=== PATIENT | female | born 1970 | race Caucasian/White ===

== ENCOUNTER → 2017-11-18 13:32 | Outpatient (REF) | payer OTHER, SELFPAY ==
[2017-11-20 14:21] LABS: Campylobacter PCR SEE COMMENTS; Salmonella PCR SEE COMMENTS; Shiga Toxin PCR SEE COMMENTS; Shigella/Enteroinvasive Ecoli SEE COMMENTS
[2017-11-21 20:25] LABS: Calprotectin 60.4 mcg/g
== END ==
LOC: LBN 13:32
PROVIDERS: PCP Student in an Organized Health Care Education/Training Program; Visit Provider Nurse Practitioner Family
DX: R19.7 Diarrhea, unspecified (principal)
CPT/HCPCS: 87505; 83993; 87324

== ENCOUNTER 2018-01-01 16:22 | Outpatient (REF) | payer OTHER, SELFPAY | END 2018-01-01 16:42 | LOC: LBN 16:22 | PROVIDERS: PCP Student in an Organized Health Care Education/Training Program; Visit Provider Obstetrics & Gynecology Gynecology | DX: L98.9 Disorder of the skin and subcutaneous tissue, unspecified (principal) | CPT/HCPCS: 87070 ==

== ENCOUNTER 2018-03-05 08:47 | Outpatient (CLI) | payer OTHER, SELFPAY ==
[2018-03-05 13:24] LABS: HCT 40.4 % (36.0-46.0); HGB 13.5 g/dL (12.0-15.5); Mean Corp. HGB Concentration 33.4 g/dL (32.0-36.0); Mean Corpuscular Hemoglobin 28.4 pg (27.0-33.0); Mean Corpuscular Volume 84.9 fL (80-95); Mean Platelet Volume 9.4 fL (8.0-11.0); Platelet Count 411 x1000/uL (130-400); RBC 4.76 m/cumm (4.00-5.20); RBC Distribution Width 13.6 % (11.7-14.6); White Blood Cell Count 10.35 k/cumm (4.4-10.8)
[2018-03-05 14:02] LABS: Ferritin 30 ng/mL (8-388)
== END 2018-03-05 09:07 ==
PROVIDERS: PCP Student in an Organized Health Care Education/Training Program; Visit Provider Psychiatry & Neurology Neurology
DX: G25.81 Restless legs syndrome (principal)
CPT/HCPCS: 36415; 85027; 82728

== ENCOUNTER 2018-04-12 11:41 | Outpatient (CLI) | payer OTHER, SELFPAY ==
[2018-04-12 12:51] LABS: Anion Gap 9.3 mmol/L (3-11); BUN 19 mg/dL (7-18); CO2 27.7 mmol/L (21.0-32.0); CREATININE 1.01 mg/dL (0.55-1.02); Calcium 9.6 mg/dL (8.5-10.1); Chloride 101 mmol/L (98-107); Glucose 123 mg/dL (70-100); Potassium 3.9 mmol/L (3.5-5.1); Sodium 138 mmol/L (136-145)
== END 2018-04-12 12:01 ==
PROVIDERS: PCP Student in an Organized Health Care Education/Training Program; Visit Provider Student in an Organized Health Care Education/Training Program
DX: E87.6 Hypokalemia (principal)
CPT/HCPCS: 36415; 80048

== ENCOUNTER 2018-05-13 11:55 | Outpatient (CLI) | payer OTHER, SELFPAY ==
[2018-05-13 14:08] LABS: Ferritin 39 ng/mL (8-388)
== END 2018-05-13 12:15 ==
PROVIDERS: PCP Student in an Organized Health Care Education/Training Program; Visit Provider Psychiatry & Neurology Neurology
DX: G25.81 Restless legs syndrome (principal)
CPT/HCPCS: 36415; 82728

== ENCOUNTER 2018-05-30 01:23 | Outpatient (RCR) | payer OTHER, SELFPAY ==
[2018-05-30] MEDS: Normal Saline Flush 10 ML SYR IVP (08:27)
== END 2018-05-30 23:59 | disposition home or self-care (01) ==
LOC: INF 01:23
PROVIDERS: PCP Student in an Organized Health Care Education/Training Program; Visit Provider Psychiatry & Neurology Neurology
DX: E61.1 Iron deficiency (principal)
CPT/HCPCS: 96365; 96366; J1756

== ENCOUNTER 2018-05-30 14:00 | Emergency (ER) | payer OTHER, SELFPAY ==
[2018-05-30] VITALS (26 sets, daily range): BP systolic 113–136; BP diastolic 59–99; PULSE 83–105; RESP 11–178; TEMP 36.2; O2SAT 93–98
--- NOTE | 2018-05-30 14:30 | ED.GENADUL_ITS ---
Discharge Plan Disposition Patient Disposition: HOME Condition: Good Discharge Details Chief Complaint: Allergic Clinical Impression: Transfusion reaction Primary Care Provider: Huyen Ramon ED Provider: Gerry Jenkins Home Meds and New Rx's Prescriptions: New epinephrine 0.3 mg/0.3 mL auto-injector 0.3 mg IM ONCE Qty: 2 RF: 0 No Action prochlorperazine maleate 5 mg tablet 5 mg PO Q8H PRN Qty: 30 RF: 3 topiramate [Topamax] 50 mg tablet 50 mg PO HS Qty: 90 RF: 3 gabapentin 300 mg capsule 300 mg PO TID Qty: 270 RF: 3 pramipexole [Mirapex] 0.25 mg tablet See Rx Instructions PO BID Qty: 270 RF: 3 ferrous sulfate [FeroSul] 325 mg (65 mg iron) tablet 325 mg PO DAILY Qty: 10 RF: 0 multivitamin [Daily Multi-Vitamin] 1 EACH tablet 1 ea PO DAILY RF: 0 vitamin B complex 1 EACH capsule 1 ea PO DAILY RF: 0 hair prosthesis Miscellaneous DAILY Qty: 1 RF: 1 loperamide [Imodium A-D] 1 MG/7.5 ML liquid 1 mg PO Q48H PRNRF: 0 hydrochlorothiazide 25 MG tablet 25 mg PO DAILY Qty: 90 RF: 3 lisinopril 20 MG tablet 20 mg PO BID Qty: 180 RF: 3 omeprazole 40 MG capsule,delayed release(DR/EC) 1 cap PO BID Qty: 90 RF: 1 triamcinolone acetonide 0.5 % cream 1 applic TP BID Qty: 15 RF: 3 venlafaxine 37.5 mg tablet 37.5 mg PO BID Qty: 30 RF: 1 bupropion HCl [Wellbutrin XL] 300 mg tablet extended release 24 hr 300 mg PO DAILY Qty: 90 RF: 3 Discharge Instructions Instructions: Anaphylaxis (ED) Additional Instructions: Please avoid IV iron in the future. Please use the epinephrine autoinjector if you develop any symptoms of shortness of breath, difficulty breathing, swelling in the mouth. Please take 50 mg of Benadryl as needed if itching or rash develops. If you notice any worsening of your symptoms, or any new symptoms suc h as vomiting, diarrhea, fever, chills, shortness of breath, chest pain, numbness, weakness, or fainting , please return immediately to the emergency department for reevaluation. Please follow up with your primary care provider as soon as possible for reassessment and reevaluation. As always, it was a pleasure participating in your medical care today. Referrals: Huyen Ramon DO [Primary Care Provider] - Medical Decision Making This is a 47-year-old female with past medical history of restless leg syndrome and low iron who has just received an iron infusion secondary to this, at the infusion she had a mild rash she took 50 mg of Benadryl, however after the infusion she noticed some mild to moderate swelling of her extremities, and also had an episode of diaphoresis and diarrhea with some subjective swelling of her upper lip. The time she arrived in the ER the rash had dissipated, swelling in her mouth had resolved, but she still developed some mild swelling of her hands lower extremities. No signs of significant rash or oral lesions on exam. No signs of hemodynamic compromise, no evidence of concerning lung sounds, or significant vital sign abnormalities. No clinical signs of anaphylaxis at this time. No indication for epinephrine at this time. We will give steroids and Pepcid, we will evaluate for any significant abnormality but I feel she most likely just had a mild reaction secondary to the infusion and if she remains stable can be discharged home. Currently there is no clinical evidence of trol slick, Taco, sepsis, or other significant abnormality 4:48 PM Patient's laboratory workup has returned, she demonstrates a mild elevation in her white count, no significant bandemia. Electrolytes are within normal limits, iron is expectedly elevated. Troponin normal, EKG benign. On reassessment the patient is feeling better. She still shows no signs or evidence of rash, anaphylaxis, respiratory compromise, respiratory distress, severe hypertension, pulmonary distress, severe fluid overload, or other significant abnormality. As the patient is feeling much better at this time, I did discuss with her potential prolonged observation versus discharge, patient would prefer to go home at this time and avoid a prolonged overnight observation period. I do think that this is reasonable. With no signs of anaphylaxis, patient will be discharged home. I had a long and thorough discussion with the patient regarding symptoms for which to promptly return. Additionally we will give the patient a prescription for epinephrine the unlikely scenario that she would have return of her symptoms. I have extensively reviewed the treatment plan and discharge instructions with the patient. I have addressed all patient concerns at this time. The patient was made aware of what symptoms to monitor for that would warrant a return to the emergency department. Discussed the plan with the patient, they demonstrate verbal understanding and agreement with our assessment and plan at this time. EKG 14: 24 Rate 99, sinus rhythm, intervals normal, no significant ST elevations or depressions, questionable Q wave in lead III and aVF. No evidence of acute process. HPI General Date/Time Provider Initiated Documentation: 05/30/18 14:02 . HPI Narrative: This is a 47-year-old female with a past medical history of restless leg syndrome, and hypertension who presents today for evaluation of an allergic reaction. The patient has a history of low iron, and was getting her first iron infusion as prescribed by Dr. Bal, here at the infusion center. When she had the iron infusion she initially developed a very mild rash, this occurred at noon. She then finished the infusion not long after, at 1 PM she noticed some notable swelling in her hands and legs as well as a small amount of subjective swelling in her lip. She also felt hot, sweaty diaphoretic. She had one episode of diarrhea, and with the conglomeration of all her symptoms decided to come to the ER for further evaluation. 30 minutes prior to arrival she did take 50 mg of Benadryl. Since then she notes that the rash is resolved, her swelling has minimally improved, she denies any difficulty breathing, stridor, shortness of breath, cough, difficulty swallowing, vomiting. The patient denies having anaphylactic reactions in the past, however she does have an allergy of hives and swelling with atropine as a child and spironolactone. No other modifying factors at this time. No other complaints. Related Data Home Medications Medication Instructions Recorded Confirmed multivitamin [Daily Multi-Vitamin] 1 ea PO DAILY 07/22/14 05/30/18 vitamin B complex 1 ea PO DAILY 07/22/14 05/30/18 loperamide [Imodium A-D] 1 mg PO Q48H PRN 11/27/16 05/30/18 hydrochlorothiazide 25 mg PO DAILY #90 tab 06/16/17 05/30/18 lisinopril 20 mg PO BID #180 tab-cap 08/02/17 05/30/18 omeprazole 1 cap PO BID #90 tab-cap 08/07/17 05/30/18 triamcinolone acetonide 0.5 % 1 applic TP BID #15 gm 01/15/18 05/30/18 topical cream gabapentin 300 mg capsule 300 mg PO TID #270 tab-cap 03/04/18 05/30/18 prochlorperazine maleate 5 mg 5 mg PO Q8H PRN #30 tab-cap 03/04/18 05/30/18 tablet topiramate 50 mg tablet 50 mg PO HS #90 tab-cap 03/04/18 05/30/18 venlafaxine 37.5 mg tablet 37.5 mg PO BID #30 tab 05/09/18 05/30/18 ferrous sulfate 325 mg (65 mg 325 mg PO DAILY #10 tab 05/13/18 05/30/18 iron) tablet pramipexole 0.25 mg tablet See Rx Instructions PO BID #270 05/13/18 05/30/18 tab-cap bupropion HCl XL 300 mg 24 hr 300 mg PO DAILY #90 tab 05/15/18 05/30/18 tablet, extended release epinephrine 0.3 mg IM ONCE #2 each 05/30/18 Previous Rx's Medication Instructions Recorded hydrochlorothiazide 25 mg PO DAILY #90 tab 06/16/17 lisinopril 20 mg PO BID #180 tab-cap 08/02/17 omeprazole 1 cap PO BID #90 tab-cap 08/07/17 triamcinolone acetonide 0.5 % 1 applic TP BID #15 gm 01/15/18 topical cream gabapentin 300 mg capsule 300 mg PO TID #270 tab-cap 03/04/18 prochlorperazine maleate 5 mg 5 mg PO Q8H PRN #30 tab-cap 03/04/18 tablet topiramate 50 mg tablet 50 mg PO HS #90 tab-cap 03/04/18 venlafaxine 37.5 mg tablet 37.5 mg PO BID #30 tab 05/09/18 ferrous sulfate 325 mg (65 mg 325 mg PO DAILY #10 tab 05/13/18 iron) tablet pramipexole 0.25 mg tablet See Rx Instructions PO BID #270 05/13/18 tab-cap bupropion HCl XL 300 mg 24 hr 300 mg PO DAILY #90 tab 05/15/18 tablet, extended release epinephrine 0.3 mg IM ONCE #2 each 05/30/18 Allergies Allergy/AdvReac Type Severity Reaction Status Date / Time atropine Allergy Intermediate HIVES, Verified 05/30/18 14:17 SWOLLEN spironolactone Allergy Intermediate Skin Rash Verified 05/30/18 14:17 General Stated Complaint: Allergic JOBY: 2 Review of Systems Review of Systems All systems reviewed & are unremarkable except as noted in HPI and below PFSH Medical History Alopecia Anemia Depression GERD (gastroesophageal reflux disease) Marylou's thyroiditis Hx of adenomatous colonic polyps Hypertension Irritable bowel syndrome Reflux esophagitis Surgical History H/O colonoscopy (Chronic 12/05/17) History of esophagogastroduodenoscopy (EGD) (Chronic 12/05/17) section Colonoscopy - MAC (03/16/14) EGD - MAC Endometrial Ablation Tonsillectomy Social History household members: significant other housing: house lives independently: Yes Smoking and Tabacco status: Never alcohol intake: current alcohol intake frequency: holidays/special occasions only Female Reproductive History Menstrual control method: permanent sterilization History History 3 Para 4 Hx # Term Pregnancies Multiple births 1 Hx # Pregnancies Ectopic pregnancies AB induced Hx Number of Living Children AB spontaneous Exam Narrative Exam Narrative: 1.Const: Well-nourished, Well-developed, appearing stated age 2.Eyes: PERRL, no conjunctival injection, and symmetrical lids. 3.ENT: Atraumatic external nose and ears. Moist MM. Neck: Symmetric, trachea midline, No thyromegaly. No evidence of oral lesions. Stable mallinpati with no signs of airway compromise. No evidence of angioedema peer 4.CVS: +S1/S2, No murmurs or gallops. Peripheral pulses 2+ and equal in all extremities. Brisk capillary refill in all extremities. 5.RESP: Unlabored respiratory effort. Clear to auscultation bilaterally. No wheezes rales or rhonchi 6.GI: Soft, Nontender/Nondistended, No hepatosplenomegaly. No guarding or rebound. 7.MSK: Normocephalic/Atraumatic, Extremities w/o deformity or ttp No cyanosis or clubbing, Normal movement of all extremities 8.Skin: Warm, Dry. No rashes or lesions. No signs of erythema multiforme, significant hives, SJS, TENS, SSSS. Negative Nikolsky sign 9.Neuro: quality control tester II-XII grossly intact. Sensation grossly intact, no focal neurologic deficits. 10.Psych: (AAO) x3. Appropriate mood and affect Course Vital Signs Temperature 36.2 C L 05/30/18 14:10 Pulse 101 H 05/30/18 14:10 Respiratory Rate 17 05/30/18 14:10 Blood Pressure 127/99 H 05/30/18 14:10 Pulse Oximetry 94 L 05/30/18 14:10 Temperature 36.2 C L 05/30/18 14:10 Temperature Source Temporal Artery Scan 05/30/18 14:10 Pulse 101 H 05/30/18 14:10 Respiratory Rate 17 05/30/18 14:10 Respiratory Effort Non-Labored 05/30/18 14:15 Blood Pressure 127/99 H 05/30/18 14:10 Blood Pressure Position Supine 05/30/18 14:10 Pulse Oximetry 94 L 05/30/18 14:10 Oxygen Delivery Method Room Air 05/30/18 14:10 Oxygen Flow Rate 0 05/30/18 14:10 Pain Level 4 05/30/18 14:10
[2018-05-30 14:37] LABS: Abs Immature Grans 0.02 k/cumm (0.0-0.09); Absolute Basophil Count 0.03 k/cumm (0.0-0.2); Absolute Monocyte Count 0.85 k/cumm (0.11-0.7); Absolute Neutrophil Count 8.67 k/cumm (1.2-6.7); Basophils % 0.2; Eosinophils % 1.7; HCT 49.3 % (36.0-46.0); HGB 16.9 g/dL (12.0-15.5); Immature Grans % 0.1; Lymphocytes % 31.9; Mean Corp. HGB Concentration 34.3 g/dL (32.0-36.0); Mean Corpuscular Hemoglobin 28.5 pg (27.0-33.0); Mean Corpuscular Volume 83.3 fL (80-95); Mean Platelet Volume 9.5 fL (8.0-11.0); Monocytes % 5.9; Neutrophils % 60.2; Platelet Count 509 x1000/uL (130-400); RBC 5.92 m/cumm (4.00-5.20); RBC Distribution Width 13.9 % (11.7-14.6); White Blood Cell Count 14.41 k/cumm (4.4-10.8)
[2018-05-30] MEDS: FAMOTIDINE 20 MG/50 ML BAG 200 MG IVPB (14:38)
[2018-05-30] MEDS: methylPREDNISolone SUCC 125 MG VIAL IVP (14:38)
[2018-05-30 14:40] LABS: Absolute Eosinophil Count 0.24 k/cumm (0.0-0.7)
[2018-05-30 14:55] LABS: ALT 31 U/L (12-78); AST 23 U/L (15-37); Albumin 3.4 g/dL (3.4-5.0); Alkaline Phosphatase 56 U/L (46-116); Anion Gap 10.8 mmol/L (3-11); BUN 21 mg/dL (7-18); Bilirubin, Total 0.4 mg/dL (0.2-1.0); CO2 25.2 mmol/L (21.0-32.0); CREATININE 1.09 mg/dL (0.55-1.02); Calcium 8.8 mg/dL (8.5-10.1); Chloride 101 mmol/L (98-107); Estimated GFR 53.57 (mL/min/1.73m2); Glucose 171 mg/dL (70-100); Potassium 3.5 mmol/L (3.5-5.1); Sodium 137 mmol/L (136-145); Total Protein 7.2 g/dL (6.4-8.2)
[2018-05-30 15:00] LABS: Troponin I < 0.02 ng/mL (0.00-0.06)
[2018-05-30 15:01] LABS: Iron 577 ug/dL (50-175); Total Iron Binding Capacity 543 ug/dL (250-450); Transferrin Sat 106 % (15-50)
[2018-05-30 15:14] LABS: Ferritin 66 ng/mL (8-388)
== END 2018-05-30 16:49 | disposition home or self-care (01) ==
PROVIDERS: Emergency Provider Student in an Organized Health Care Education/Training Program; PCP Student in an Organized Health Care Education/Training Program
DX: T80.92XA Unspecified transfusion reaction, initial encounter (principal); I10 Essential (primary) hypertension
CPT/HCPCS: 36415; 80053; 93005; 96365; 96375; 99284; 82728; 83540; 83550; 84484; 85025; 93010; J2930

== ENCOUNTER 2018-06-03 15:18 | Outpatient (CLI) | payer OTHER, SELFPAY ==
[2018-06-03 16:00] LABS: Abs Immature Grans 0.05 k/cumm (0.0-0.09); Absolute Basophil Count 0.04 k/cumm (0.0-0.2); Absolute Eosinophil Count 0.41 k/cumm (0.0-0.7); Absolute Lymphocyte Count 4.75 k/cumm (1.2-3.4); Absolute Monocyte Count 0.75 k/cumm (0.11-0.7); Absolute Neutrophil Count 7.37 k/cumm (1.2-6.7); Basophils % 0.3; Eosinophils % 3.1; HCT 39.4 % (36.0-46.0); HGB 13.7 g/dL (12.0-15.5); Immature Grans % 0.4; Lymphocytes % 35.5; Mean Corp. HGB Concentration 34.8 g/dL (32.0-36.0); Mean Corpuscular Hemoglobin 29.4 pg (27.0-33.0); Mean Corpuscular Volume 84.5 fL (80-95); Mean Platelet Volume 9.5 fL (8.0-11.0); Monocytes % 5.6; Neutrophils % 55.1; Platelet Count 390 x1000/uL (130-400); RBC 4.66 m/cumm (4.00-5.20); RBC Distribution Width 13.8 % (11.7-14.6); White Blood Cell Count 13.37 k/cumm (4.4-10.8)
== END 2018-06-03 15:38 ==
PROVIDERS: PCP Student in an Organized Health Care Education/Training Program; Visit Provider Nurse Practitioner Adult Health
DX: D47.3 Essential (hemorrhagic) thrombocythemia (principal); D72.829 Elevated white blood cell count, unspecified; T80.92XA Unspecified transfusion reaction, initial encounter
CPT/HCPCS: 36415; 85025

== ENCOUNTER 2018-06-24 08:38 | Outpatient (CLI) | payer OTHER, SELFPAY ==
[2018-06-24 09:16] LABS: HCT 40.6 % (36.0-46.0); HGB 13.7 g/dL (12.0-15.5); Mean Corp. HGB Concentration 33.7 g/dL (32.0-36.0); Mean Corpuscular Hemoglobin 28.8 pg (27.0-33.0); Mean Corpuscular Volume 85.5 fL (80-95); Mean Platelet Volume 9.5 fL (8.0-11.0); Platelet Count 346 x1000/uL (130-400); RBC 4.75 m/cumm (4.00-5.20); White Blood Cell Count 7.99 k/cumm (4.4-10.8)
[2018-06-24 09:52] LABS: C-Reactive Protein 0.44 mg/dL (0.0-0.3)
[2018-06-24 09:56] LABS: Iron 86 ug/dL (50-175); Total Iron Binding Capacity 264 ug/dL (250-450); Transferrin Sat 33 % (15-50)
[2018-06-24 10:06] LABS: Anion Gap 10.8 mmol/L (3-11); BUN 21 mg/dL (7-18); CO2 27.2 mmol/L (21.0-32.0); CREATININE 1.02 mg/dL (0.55-1.02); Calcium 9.3 mg/dL (8.5-10.1); Chloride 103 mmol/L (98-107); Cholesterol 224 mg/dL (50-200); Estimated GFR 57.84 (mL/min/1.73m2); Glucose 109 mg/dL (70-100); HDL Cholesterol 53 mg/dL (40-60); LDL CHOLESTEROL 95 mg/dL (<100); Magnesium 1.9 mg/dL (1.8-2.4); Potassium 3.8 mmol/L (3.5-5.1); Sodium 141 mmol/L (136-145); TSH (W/Ref FT4) 2.77 uIU/mL (0.358-3.74); Triglyceride 192 mg/dL (30-150)
[2018-06-24 11:45] LABS: ESR 13 MM/HR (0-20)
[2018-06-25 10:40] LABS: Lyme Ab w Rflx to Lyme Confirm Negative
[2018-06-25 11:33] LABS: Rheumatoid Factor <8 IU/mL (<12.5)
[2018-06-25 11:51] LABS: ANA Interpretation Negative (NEGAT)
== END 2018-06-24 08:58 ==
PROVIDERS: Optometrist; PCP Student in an Organized Health Care Education/Training Program; Visit Provider Student in an Organized Health Care Education/Training Program
DX: D69.1 Qualitative platelet defects (principal); R79.0 Abnormal level of blood mineral; Z13.220 Encounter for screening for lipoid disorders; R53.83 Other fatigue; L65.9 Nonscarring hair loss, unspecified; R79.89 Other specified abnormal findings of blood chemistry; E87.6 Hypokalemia; H20.11 Chronic iridocyclitis, right eye
CPT/HCPCS: 36415; 80048; 80061; 83721; 85027; 85652; 83540; 83550; 83735; 84443; 86038; 86140; 86431; 86618

== ENCOUNTER 2018-07-15 09:18 | Outpatient (CLI) | payer OTHER, SELFPAY ==
[2018-07-15 10:24] LABS: Iron 78 ug/dL (50-175); Total Iron Binding Capacity 291 ug/dL (250-450); Transferrin Sat 27 % (15-50)
[2018-07-15 10:57] LABS: Ferritin 112 ng/mL (8-388)
== END 2018-07-15 09:38 ==
PROVIDERS: PCP Student in an Organized Health Care Education/Training Program; Visit Provider Student in an Organized Health Care Education/Training Program
DX: G25.81 Restless legs syndrome (principal); Z86.2 Personal history of diseases of the blood and blood-forming organs and certain disorders involving the immune mechanism
CPT/HCPCS: 36415; 82728; 83540; 83550

== ENCOUNTER 2018-07-25 16:33 | Outpatient (REF) | payer OTHER, SELFPAY ==
[2018-07-25 18:38] LABS: Anion Gap 9.5 mmol/L (3-11); BUN 18 mg/dL (7-18); CO2 28.5 mmol/L (21.0-32.0); CREATININE 1.11 mg/dL (0.55-1.02); Chloride 99 mmol/L (98-107); Estimated GFR 52.46 (mL/min/1.73m2); Glucose 107 mg/dL (70-100); Magnesium 1.9 mg/dL (1.8-2.4); Sodium 137 mmol/L (136-145)
[2018-07-25 19:42] LABS: Potassium 2.9 mmol/L (3.5-5.1)
== END 2018-07-25 16:53 ==
LOC: LBN 16:33
PROVIDERS: Family Medicine; PCP Student in an Organized Health Care Education/Training Program; Visit Provider Student in an Organized Health Care Education/Training Program
DX: K52.9 Noninfective gastroenteritis and colitis, unspecified (principal)
CPT/HCPCS: 80048; 83735

== ENCOUNTER 2018-07-25 20:09 | Emergency (ER) | payer OTHER, SELFPAY ==
[2018-07-25 20:34] VITALS: BP 126/83; PULSE 85; RESP 16; TEMP 36.6; O2SAT 97
--- NOTE | 2018-07-25 21:00 | W.ED.GENAD ---
Discharge Plan Disposition Patient Disposition: HOME Condition: Improving Discharge Details Chief Complaint: GenMedical Clinical Impression: Hypokalemia Primary Care Provider: Huyen Ramon ED Provider: Barbi Dos Santos Home Meds and New Rx's Prescriptions: New potassium chloride 20 mEq tablet extended release 20 meq PO DAILY Qty: 14 RF: 0 Continued prochlorperazine maleate 5 mg tablet 5 mg PO Q8H PRN Qty: 30 RF: 3 topiramate [Topamax] 50 mg tablet 50 mg PO HS Qty: 90 RF: 3 gabapentin 300 mg capsule 300 mg PO TID Qty: 270 RF: 3 pramipexole [Mirapex] 0.25 mg tablet See Rx Instructions PO BID Qty: 270 RF: 3 multivitamin [Daily Multi-Vitamin] 1 EACH tablet 1 ea PO DAILY RF: 0 vitamin B complex 1 EACH capsule 1 ea PO DAILY RF: 0 hair prosthesis Miscellaneous DAILY Qty: 1 RF: 1 loperamide [Imodium A-D] 1 MG/7.5 ML liquid 1 mg PO Q48H PRNRF: 0 lisinopril 20 MG tablet 20 mg PO BID Qty: 180 RF: 3 omeprazole 40 MG capsule,delayed release(DR/EC) 1 cap PO BID Qty: 90 RF: 1 triamcinolone acetonide 0.5 % cream 1 applic TP BID Qty: 15 RF: 3 bupropion HCl [Wellbutrin XL] 300 mg tablet extended release 24 hr 300 mg PO DAILY Qty: 90 RF: 3 hydrochlorothiazide 25 mg tablet 25 mg PO DAILY Qty: 90 RF: 3 venlafaxine 37.5 mg tablet 37.5 mg PO DAILY Qty: 60 RF: 6 epinephrine 0.3 mg/0.3 mL auto-injector 0.3 mg IM ONCE Qty: 2 RF: 0 Discharge Instructions Instructions: Hypokalemia (ED) Additional Instructions: Encourage hydration. Advance diet as tolerated. Take potassium as prescribed for daily replenishment. Please follow-up with primary care reevaluation and discuss your persistent diarrhea and hypokalemia. If you develop any new or worsening symptoms please seek care urgently once again. Referrals: Huyen Ramon DO [Primary Care Provider] - Discharge Data Discharge Date/Time-TO BE ENTERED AT DEPARTURE: 07/25/18 22:50 Medical Decision Making Patient is a 47-year-old female presents today with chief complaint of hypokalemia. Patient reports that she has had chronic episodic diarrhea. Reports that she has had diarrhea for the past 6 days. States that this has slowed down she has not had any bowel movements since this morning. She has been hydrating. Denies any chest pain. Does report that she has been feeling fatigued and has been feeling like she needs to force my muscles more with movements. Patient has had severe hypokalemia before, lowest weight was 2.8 in 2017 after episodic diarrhea. She reports that she is able to feel when she has a low potassium and to contact her primary care today with mind. Baseline labs are drawn and her potassium is noted be 2.9. Primary care contacted her and advised to come here for replenishment. She endorses occasional bright red blood per rectum associated with hemorrhoids. No melena. No CBC was obtained, will obtain this tonight. EKG reviewed by Dr. Kelly, NSR rate 78 with no acute abnormalities noted. CBC without significant abnormality. Patient received 40meq PO and 10IV. Will continue on oral replenishment daily with 20meq. Encouraged hydration, advance diet as tolerated. Advised close f/u with PCP, she will contact them tomorrow to discuss follow up. Discussed new/worsening symptoms and when to seek care urgently once again. All of her questions and concerns were addressed. She was prescribed oral potassium for daily intake. She reports that she has been on this previously but does not have any at this time HPI General Mode of arrival: ambulatory. Date/Time Provider Initiated Documentation: 07/25/18 20:43. Limitations to Documentation: no limitations. Information obtained by: patient and RN notes reviewed. HPI Narrative: Patient is a 47-year-old female presents today with chief complaint of hypokalemia. She was contacted by her primary care who had an screening labs today and noted her p.o. potassium to be 2.9. Patient associates this with diarrhea that is chronic. States that overall her diarrhea has improved as of today. She reports that she has been feeling weak and fatigued which is typical when she develops hypokalemia. Patient has had these episodes historically. Related Data Home Medications Medication Instructions Recorded Confirmed multivitamin [Daily Multi-Vitamin] 1 ea PO DAILY 07/22/14 07/25/18 vitamin B complex 1 ea PO DAILY 07/22/14 07/25/18 loperamide [Imodium A-D] 1 mg PO Q48H PRN 11/27/16 07/25/18 lisinopril 20 mg PO BID #180 tab-cap 08/02/17 07/25/18 omeprazole 1 cap PO BID #90 tab-cap 08/07/17 07/25/18 triamcinolone acetonide 0.5 % 1 applic TP BID #15 gm 01/15/18 07/25/18 topical cream gabapentin 300 mg capsule 300 mg PO TID #270 tab-cap 03/04/18 07/25/18 prochlorperazine maleate 5 mg 5 mg PO Q8H PRN #30 tab-cap 03/04/18 07/25/18 tablet topiramate 50 mg tablet 50 mg PO HS #90 tab-cap 03/04/18 07/25/18 pramipexole 0.25 mg tablet See Rx Instructions PO BID #270 05/13/18 07/25/18 tab-cap bupropion HCl XL 300 mg 24 hr 300 mg PO DAILY #90 tab 05/15/18 07/25/18 tablet, extended release epinephrine 0.3 mg IM ONCE #2 each 05/30/18 07/25/18 hydrochlorothiazide 25 mg tablet 25 mg PO DAILY #90 tab 07/09/18 07/25/18 venlafaxine 37.5 mg tablet 37.5 mg PO DAILY #60 tab 07/10/18 07/25/18 potassium chloride 20 meq PO DAILY #14 tab 07/25/18 Previous Rx's Medication Instructions Recorded lisinopril 20 mg PO BID #180 tab-cap 08/02/17 omeprazole 1 cap PO BID #90 tab-cap 08/07/17 triamcinolone acetonide 0.5 % 1 applic TP BID #15 gm 01/15/18 topical cream gabapentin 300 mg capsule 300 mg PO TID #270 tab-cap 03/04/18 prochlorperazine maleate 5 mg 5 mg PO Q8H PRN #30 tab-cap 03/04/18 tablet topiramate 50 mg tablet 50 mg PO HS #90 tab-cap 03/04/18 pramipexole 0.25 mg tablet See Rx Instructions PO BID #270 05/13/18 tab-cap bupropion HCl XL 300 mg 24 hr 300 mg PO DAILY #90 tab 05/15/18 tablet, extended release epinephrine 0.3 mg IM ONCE #2 each 05/30/18 hydrochlorothiazide 25 mg tablet 25 mg PO DAILY #90 tab 07/09/18 venlafaxine 37.5 mg tablet 37.5 mg PO DAILY #60 tab 07/10/18 potassium chloride 20 meq PO DAILY #14 tab 07/25/18 Allergies Allergy/AdvReac Type Severity Reaction Status Date / Time iron [From Venofer] Allergy Severe Swelling/Ed Verified 07/25/18 20:38 brandon atropine Allergy Intermediate HIVES, Verified 07/25/18 20:38 SWOLLEN spironolactone Allergy Intermediate Skin Rash Verified 07/25/18 20:38 General Stated Complaint: GenMedical JOBY: 3 Review of Systems Constitutional Reports as per HPI, Denies chills, Denies fever(s), Denies headache(s), Denies lethargy and Denies poor appetite Eyes Denies change in vision ENT Denies dizziness and Denies headache(s) Cardiovascular Reports as per HPI, Denies dyspnea and Denies dyspnea on exertion Respiratory Reports as per HPI, Denies chest congestion, Denies cough, Denies pain on inspiration, Denies pain with cough, Denies dyspnea, Denies dyspnea on exertion and Denies wheezing Gastrointestinal Reports as per HPI, Denies abdominal pain, Denies diarrhea, Denies nausea and Denies vomiting Musculoskeletal Reports as per HPI and Denies back pain Integumentary/Breasts Reports as per HPI and Denies rash Neurologic Reports as per HPI, Denies dizziness and Denies headache(s) Allergic/Immunologic Denies [facility]ezing [facility] Medical History Alopecia Anemia Depression GERD (gastroesophageal reflux disease) Marylou's thyroiditis Hx of adenomatous colonic polyps Hypertension Irritable bowel syndrome Reflux esophagitis Surgical History H/O colonoscopy (Chronic 12/05/17) History of esophagogastroduodenoscopy (EGD) (Chronic 12/05/17) section Colonoscopy - MAC (03/16/14) EGD - MAC Endometrial Ablation Tonsillectomy Social History Smoking/Tobacco Use Status: Never Alcohol Intake: current Alcohol Intake frequency: holidays/special occasions only Drug use: Never Substance use type: does not use Adopted: No Caregiver/Support person: No Household members: significant other Housing: house Number of Children: 4 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 Pets and animals: Yes Pets and animals: cat(s) and dog(s) What is your relationship status?: living with partner Panel score (0-1 are the most socially isolated patients): 1 What type of physical activity do you participate in: walking Duration: 15-30 minutes/day Frequency: 3-4 times per week Seatbelt use: always Working smoke detector in home: Yes Fire extinguisher in home: Yes Carbon monox detector in home: Yes Firearms in home: No Do you feel safe in your relationship?: Yes Female Reproductive History Menstrual control method: permanent sterilization History History 3 Para 4 Hx # Term Pregnancies Multiple births 1 Hx # Pregnancies Ectopic pregnancies AB induced Hx Number of Living Children AB spontaneous Exam Const General: cooperative, healthy appearing, comfortable, no acute distress and well developed Nutritional Appearance: well nourished and overweight Orientation: alert, awake and oriented x3 HENMT Head: normal to inspection Ears: hearing grossly normal bilaterally Mouth: moist mucous membranes Chest Chest: normal inspection of the chest, normal palpation of entire chest wall and no crepitus Resp Effort & Inspection: normal respiratory effort, able to speak in complete sentences and no respiratory distress Auscultation: clear to auscultation bilaterally, no rales, no rhonchi and no wheezes Cardio Rate: regular rate Rhythm: regular rhythm Heart Sounds: S1 normal and S2 normal GI Inspection: normal to inspection, no edema and non-distended Palpation: soft, no hepatosplenomegaly, not firm, no guarding, not rigid and nontender Auscultation: normal bowel sounds Back/Spine/Pelvis Back: no CVA tenderness Thoracic/Lumbar Spine: thoracic and lumbar spine normal to inspection Skin General skin exam: no rashes or lesions noted Trauma: no lacerations or abrasions Neuro General: alert, awake and oriented x3 Cognition: normal cognition Speech: speech normal Gait: normal gait Extrem General: normal to inspection, normal capillary refill, no pedal edema, no calf tenderness and normal gait Psych Appearance: grossly normal and well kempt Mental Status: mental status grossly normal Speech and Movement: speech and movement normal Course Vital Signs Temperature 36.6 C 07/25/18 20:34 Pulse 85 07/25/18 20:34 Respiratory Rate 16 07/25/18 20:34 Blood Pressure 126/83 07/25/18 20:34 Pulse Oximetry 97 07/25/18 20:34 Temperature 36.6 C 07/25/18 20:34 Temperature Source Skin 07/25/18 20:34 Pulse 85 07/25/18 20:34 Respiratory Rate 16 07/25/18 20:34 Respiratory Effort Non-Labored 07/25/18 20:40 Blood Pressure 126/83 07/25/18 20:34 Pulse Oximetry 97 07/25/18 20:34 Pain Level 3 07/25/18 20:34
[2018-07-25] MEDS: POTASSIUM CHLORIDE 10 MEQ/100 ML BAG 100 MEQ IVPB (21:05)
[2018-07-25] MEDS: Potassium Chloride 20 MEQ TABCR 40 MEQ PO (21:05)
[2018-07-25] MEDS: Normal Saline 1,000 ML 1000 ML IV (21:18)
[2018-07-25 21:21] LABS: Abs Immature Grans 0.01 k/cumm (0.0-0.09); Absolute Basophil Count 0.03 k/cumm (0.0-0.2); Absolute Eosinophil Count 0.41 k/cumm (0.0-0.7); Absolute Lymphocyte Count 4.71 k/cumm (1.2-3.4); Basophils % 0.3; Eosinophils % 3.7; HCT 40.2 % (36.0-46.0); HGB 14.1 g/dL (12.0-15.5); Immature Grans % 0.1; Lymphocytes % 42.9; Mean Corp. HGB Concentration 35.1 g/dL (32.0-36.0); Mean Corpuscular Hemoglobin 29.6 pg (27.0-33.0); Mean Corpuscular Volume 84.5 fL (80-95); Mean Platelet Volume 9.7 fL (8.0-11.0); Monocytes % 8.2; Neutrophils % 44.8; Platelet Count 352 x1000/uL (130-400); RBC 4.76 m/cumm (4.00-5.20); RBC Distribution Width 13.7 % (11.7-14.6); White Blood Cell Count 10.99 k/cumm (4.4-10.8)
[2018-07-25 21:30] LABS: Absolute Neutrophil Count 4.92 k/cumm (1.2-6.7)
[2018-07-25 22:16] VITALS: BP 111/56; PULSE 76; RESP 19
[2018-07-25 22:48] VITALS: BP 121/64; PULSE 75; RESP 16; TEMP 36.6; O2SAT 99
== END 2018-07-25 22:50 | disposition home or self-care (01) ==
PROVIDERS: Emergency Provider Physician Assistant; PCP Student in an Organized Health Care Education/Training Program
DX: E87.6 Hypokalemia (principal)
CPT/HCPCS: 36415; 93005; 96361; 96365; 99284; 85025; 93010; J3480

== ENCOUNTER 2018-07-30 17:00 | Emergency (ER) | payer OTHER, SELFPAY ==
[2018-07-30] VITALS (24 sets, daily range): BP systolic 124–131; BP diastolic 77–89; PULSE 74–85; RESP 11–22; TEMP 36.9–37.4; O2SAT 96–99
--- NOTE | 2018-07-30 17:14 | NUR.NOTE ---
pt has a history of chronic loose stools as well a s low potassium pt states that she feels like my potassium is low i feel weak and i have some palpitations
--- NOTE | 2018-07-30 17:21 | DI.RAD_ITS ---
SYMPTOM/DIAGNOSIS: GENERALIZED CHEST PAIN PA AND LATERAL CHEST: Comparison is made with 11/14/16. The heart is normal in size. The lungs are clear. The mediastinal structures and pleura appear intact. CONCLUSION: Normal chest.
[2018-07-30 17:48] LABS: Abs Immature Grans 0.03 k/cumm (0.0-0.09); Absolute Basophil Count 0.04 k/cumm (0.0-0.2); Absolute Eosinophil Count 0.36 k/cumm (0.0-0.7); Absolute Lymphocyte Count 3.79 k/cumm (1.2-3.4); Absolute Monocyte Count 0.68 k/cumm (0.11-0.7); Absolute Neutrophil Count 5.37 k/cumm (1.2-6.7); Basophils % 0.4; Eosinophils % 3.5; HCT 38.5 % (36.0-46.0); HGB 13.3 g/dL (12.0-15.5); Immature Grans % 0.3; Lymphocytes % 36.9; Mean Corp. HGB Concentration 34.5 g/dL (32.0-36.0); Mean Corpuscular Hemoglobin 29.6 pg (27.0-33.0); Mean Corpuscular Volume 85.6 fL (80-95); Mean Platelet Volume 9.5 fL (8.0-11.0); Monocytes % 6.6; Neutrophils % 52.3; Platelet Count 369 x1000/uL (130-400); RBC Distribution Width 13.5 % (11.7-14.6); White Blood Cell Count 10.27 k/cumm (4.4-10.8)
--- NOTE | 2018-07-30 18:02 | W.ED.GENAD ---
Discharge Plan Disposition Patient Disposition: HOME Condition: Improving Discharge Details Chief Complaint: GenMedical Clinical Impression: Acute hypokalemia, Fatigue Primary Care Provider: Huyen Ramon ED Provider: Aleksandr Whitlock Home Meds and New Rx's Prescriptions: Continued prochlorperazine maleate 5 mg tablet 5 mg PO Q8H PRN Qty: 30 RF: 3 topiramate [Topamax] 50 mg tablet 50 mg PO HS Qty: 90 RF: 3 gabapentin 300 mg capsule 300 mg PO TID Qty: 270 RF: 3 pramipexole [Mirapex] 0.25 mg tablet See Rx Instructions PO BID Qty: 270 RF: 3 multivitamin [Daily Multi-Vitamin] 1 EACH tablet 1 ea PO DAILY RF: 0 vitamin B complex 1 EACH capsule 1 ea PO DAILY RF: 0 hair prosthesis Miscellaneous DAILY Qty: 1 RF: 1 loperamide [Imodium A-D] 1 MG/7.5 ML liquid 1 mg PO Q48H PRNRF: 0 triamcinolone acetonide 0.5 % cream 1 applic TP BID Qty: 15 RF: 3 bupropion HCl [Wellbutrin XL] 300 mg tablet extended release 24 hr 300 mg PO DAILY Qty: 90 RF: 3 venlafaxine 37.5 mg tablet 37.5 mg PO DAILY Qty: 60 RF: 6 Discontinued potassium chloride 20 mEq tablet extended release 20 meq PO DAILY Qty: 14 RF: 0 No Action hydrochlorothiazide 25 mg tablet 50 mg PO DAILY Qty: 180 RF: 3 potassium chloride 20 mEq tablet extended release 20 meq PO BID Qty: 90 RF: 2 lisinopril 20 mg tablet 20 mg PO BID Qty: 180 RF: 3 omeprazole 40 mg capsule,delayed release(DR/EC) 40 mg PO BID Qty: 90 RF: 3 ondansetron HCl [Zofran] 4 mg tablet 4 mg PO Q8H RF: 0 hydroxyzine HCl 25 mg tablet 25 mg PO Q8H PRN (Reason: itching) RF: 0 Discharge Instructions Instructions: Hypokalemia (ED), Fatigue (ED) Additional Instructions: Please take 20 mEq of potassium twice daily. Please drink plenty of water throughout the day. If you notice any worsening of your symptoms, or any new symptoms such as vomiting, diarrhea, fever, chills, shortness of breath, chest pain, numbness, weakness, or fainting , please return immediately to the emergency department for reevaluation. Please follow up with your primary care provider as soon as possible for reassessment and reevaluation. As always, it was a pleasure participating in your medical care today. Referrals: Huyen Ramon DO [Primary Care Provider] - Discharge Data Discharge Date/Time-TO BE ENTERED AT DEPARTURE: 07/30/18 21:18 Medical Decision Making <Gerry Jenkins DO - Last Filed: 10/23/18 15:07> This is a 47-year-old female with a past medical history of anemia, restless leg syndrome, GERD, who presents today for evaluation of symptoms of mild sweatiness, fatigue and minimal shortness of breath. She denies any chest pain or chest heaviness. She denies any arm, neck, or shoulder pain. She denies any chest tightness. She states that her symptoms feel identical to when her potassium was low in the past. Physical exam demonstrates no neurologic deficits, no significant abnormalities. Vital signs are notably reassuring. She denies any significant family history of cardiac disease. Laboratory work-up demonstrates normal white count, no anemia. Electrolytes demonstrate a normal magnesium, stable creatinine, however the potassium is again low at 2.9. No other significant abnormalities. Initial troponin is normal. Initial EKG is benign and unchanged from prior. Thyroid is normal. We have given the patient magnesium, oral and IV potassium and will increase her daily potassium from 20 mEq daily to 20 mEq twice daily. With initial cardiac work-up benign, I feel her symptoms are unlikely to be cardiac. Additionally the patient PERC score is negative and Wells score is 0. Her signs and symptoms are consistent with PE. We will recheck the potassium prior to discharge as well as get a second troponin. If these are normalizing for the potassium and the troponin is normal I feel she can be safely discharged home with close follow-up with her primary care provider. The case will be signed out to my colleague Dr. Aleksandr Whitlock for final disposition. EKG 17: 11 Rate 86, intervals normal, sinus rhythm, no significant ST elevations or depressions, inverted T wave is present in V1. Questionable Q waves in lead III and aVF. No other significant abnormalities compared to EKG on 07/25/2018. EKG 19: 52 Rate 76, intervals normal, sinus rhythm, no significant ST elevations or depressions, T wave inversion is present in V1, no other significant abnormalities. Unchanged from prior EKG TECHNIQUE: Imaging protocol: XR of the chest, 2 views. COMPARISON: CR CHEST 2 VIEWS PA,LAT 11/14/2016 5:30 PM FINDINGS: Lungs: Unremarkable. No consolidation. Pleural space: Unremarkable. No pleural effusion. No pneumothorax. Heart/Mediastinum: Unremarkable. No cardiomegaly. Bones/joints: Unremarkable. Other findings: Evaluation of the retrosternal space is limited due to overlapping arm. IMPRESSION: No acute abnormality. Dictated and Authenticated by: Amanda Hampton MD. Ordering:MIGUELITO Garrett MD <Aleksandr Whitlock MD - Last Filed: 07/30/18 23:00> Received signout from Dr. Jenkins. Please see his note regarding details of the patient's presentation, initial exam plan of care. Patient's repeat potassium was 3.3. Her troponin was negative. She continued to improve and subjectively was better. Stable for discharge to home per previous plan Lab Data Lab results reviewed: Yes I reviewed the patient's lab results. Laboratory Results - last 24 hr 07/30/18 07/30/18 07/30/18 17:31 17:31 20:38 WBC 10.27 RBC 4.50 Hgb 13.3 Hct 38.5 MCV 85.6 MCH 29.6 MCHC 34.5 RDW 13.5 Plt Count 369 MPV 9.5 Immature Gran % 0.3 Neutrophils % 52.3 Lymphocytes % 36.9 Monocytes % 6.6 Eosinophils % 3.5 Basophils % 0.4 Absolute Neutrophils 5.37 Absolute Lymphocytes 3.79 H Absolute Monocytes 0.68 Absolute Eosinophils 0.36 Absolute Basophils 0.04 Sodium 139 138 Potassium 2.9 L* 3.3 L Chloride 102 102 Carbon Dioxide 28.7 25.6 Anion Gap 8.3 10.4 BUN 19 H 20 H Creatinine 1.15 H 1.07 H Estimated GFR/1.73 m2 50.36 54.73 Glucose 105 H 108 H Calcium 8.9 8.4 L Magnesium 1.9 Total Bilirubin 0.3 AST 25 ALT 37 Alkaline Phosphatase 51 Troponin I < 0.02 < 0.02 Total Protein 7.1 Albumin 3.6 TSH 2.81 HPI <Gerry Jenkins DO - Last Filed: 10/23/18 15:07> General Date/Time Provider Initiated Documentation: 07/30/18 17:01. HPI Narrative: This is a pleasant 47-year-old female with a past medical history of restless leg syndrome, thyroid disc irritable bowel syndrome, anemia, as well as hypokalemia, who presents today for evaluation of symptoms of mild sweatiness, shortness of breath, fatigue, and feelings that she feels correspond with hypokalemia. The patient was seen roughly a week ago, where she was found to have hypokalemia kalemia at that time, she was supplemented here in the ER as well as given a prescription for home use. She has not been able to follow-up with her PCP since then. However over the last 12 the 24 hours she has noticed the return of her initial symptoms which include the aforementioned symptoms. She denies any chest pain, or significant chest heaviness. She denies any neck arm or shoulder pain. She denies any tearing sensation in her chest. She does state that her mild fatigue and shortness of breath and sweatiness is slightly worsened when she exerts herself. She denies any pleuritic chest pain. Denies PE risk factors such as recent long car rides, immobilization, recent surgery, prior history of DVT or PE, family history of PE or DVT, morbid obesity, exogenous estrogen and smoking, hemoptysis, history of cancer. Patient states that her diarrhea has notably improved and she has been taking the potassium supplement as directed at home. Patient denies any other complaints or modifying factors. Related Data Home Medications Medication Instructions Recorded Confirmed multivitamin [Daily Multi-Vitamin] 1 ea PO DAILY 07/22/14 10/23/18 vitamin B complex 1 ea PO DAILY 07/22/14 10/23/18 loperamide [Imodium A-D] 1 mg PO Q48H PRN 11/27/16 10/23/18 triamcinolone acetonide 0.5 % 1 applic TP BID #15 gm 01/15/18 10/23/18 topical cream gabapentin 300 mg capsule 300 mg PO TID #270 tab-cap 03/04/18 10/23/18 prochlorperazine maleate 5 mg 5 mg PO Q8H PRN #30 tab-cap 03/04/18 10/23/18 tablet topiramate 50 mg tablet 50 mg PO HS #90 tab-cap 03/04/18 10/23/18 pramipexole 0.25 mg tablet See Rx Instructions PO BID #270 05/13/18 10/23/18 tab-cap bupropion HCl 300 mg 24 hr tablet, 300 mg PO DAILY #90 tab 05/15/18 10/23/18 extended release venlafaxine 37.5 mg tablet 37.5 mg PO DAILY #60 tab 07/10/18 10/23/18 lisinopril 20 mg tablet 20 mg PO BID #180 tab-cap 08/06/18 10/23/18 hydrochlorothiazide 25 mg tablet 50 mg PO DAILY #180 tab 08/07/18 10/23/18 potassium chloride 20 mEq 20 meq PO BID #90 tab 08/20/18 10/23/18 tablet,extended release omeprazole 40 mg capsule,delayed 40 mg PO BID #90 tab 09/05/18 10/23/18 release hydroxyzine HCl 25 mg tablet 25 mg PO Q8H PRN tab 10/21/18 10/23/18 ondansetron HCl 4 mg tablet 4 mg PO Q8H 10/21/18 10/23/18 Previous Rx's Medication Instructions Recorded triamcinolone acetonide 0.5 % 1 applic TP BID #15 gm 01/15/18 topical cream gabapentin 300 mg capsule 300 mg PO TID #270 tab-cap 03/04/18 prochlorperazine maleate 5 mg 5 mg PO Q8H PRN #30 tab-cap 03/04/18 tablet topiramate 50 mg tablet 50 mg PO HS #90 tab-cap 03/04/18 pramipexole 0.25 mg tablet See Rx Instructions PO BID #270 05/13/18 tab-cap bupropion HCl 300 mg 24 hr tablet, 300 mg PO DAILY #90 tab 05/15/18 extended release venlafaxine 37.5 mg tablet 37.5 mg PO DAILY #60 tab 07/10/18 lisinopril 20 mg tablet 20 mg PO BID #180 tab-cap 08/06/18 hydrochlorothiazide 25 mg tablet 50 mg PO DAILY #180 tab 08/07/18 potassium chloride 20 mEq 20 meq PO BID #90 tab 08/20/18 tablet,extended release omeprazole 40 mg capsule,delayed 40 mg PO BID #90 tab 09/05/18 release Allergies Allergy/AdvReac Type Severity Reaction Status Date / Time iron [From Venofer] Allergy Severe Swelling/Ed Verified 10/23/18 10:08 brandon atropine Allergy Intermediate HIVES, Verified 10/23/18 10:08 SWOLLEN spironolactone Allergy Intermediate Skin Rash Verified 10/23/18 10:08 General Stated Complaint: GenMedical JOBY: 3 Review of Systems <Gerry Jenkins DO - Last Filed: 10/23/18 15:07> Review of Systems All systems reviewed & are unremarkable except as noted in HPI and below PFSH <Gerry Jenkins DO - Last Filed: 10/23/18 15:07> Social History Smoking/Tobacco Use Status: Never Alcohol Intake: current Alcohol Intake frequency: holidays/special occasions only Drug use: Never Substance use type: does not use Adopted: No Caregiver/Support person: No Household members: significant other Housing: house Number of Children: 4 number of grandchildren: 0 Communication Needs: Corrective Lenses Education Level: college 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, 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 Pets and animals: Yes Pets and animals: cat(s) and dog(s) What is your relationship status?: living with partner Panel score (0-1 are the most socially isolated patients): 1 What type of physical activity do you participate in: walking Duration: 15-30 minutes/day Frequency: 3-4 times per week Seatbelt use: always Working smoke detector in home: Yes Fire extinguisher in home: Yes Carbon monox detector in home: Yes Firearms in home: No Do you feel safe at home: Yes Do you feel safe in your relationship?: Yes Female Reproductive History Menstrual control method: permanent sterilization History History 3 Para 4 Hx # Term Pregnancies Multiple births 1 Hx # Pregnancies Ectopic pregnancies AB induced Hx Number of Living Children AB spontaneous Exam <Gerry Jenkins DO - Last Filed: 10/23/18 15:07> Narrative Exam Narrative: 1.Const: Well-nourished, Well-developed, appearing stated age 2.Eyes: PERRL, no conjunctival injection, and symmetrical lids. 3.ENT: Atraumatic external nose and ears. Moist MM. Neck: Symmetric, trachea midline, No thyromegaly. 4.CVS: +S1/S2, No murmurs or gallops. Peripheral pulses 2+ and equal in all extremities. Brisk capillary refill in all extremities. 5.RESP: Unlabored respiratory effort. Clear to auscultation bilaterally. No wheezes rales or rhonchi 6.GI: Soft, Nontender/Nondistended, No hepatosplenomegaly. No guarding or rebound. 7.MSK: Normocephalic/Atraumatic, Extremities w/o deformity or ttp No cyanosis or clubbing, Normal movement of all extremities 8.Skin: Warm, Dry. No rashes or lesions. 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 Sensation grossly intact, no focal neurologic deficits. All 6 cardinal planes of vision are fully intact. No evidence of rotatory or vertical nystagmus. The patient demonstrated a normal [id number], good dexterity. There was no evidence of dysdiadochokinesia. Patient was able to ambulate without difficulty. There was no wide-based gait. Romberg, and [id number] are both normal on testing. Sensation was intact bilaterally as well as muscle strength bilaterally for all extremities. Patient was able to verbalize butter cup with no slurring, or miss pronunciation. 10.Psych: (AAO) x3. Appropriate mood and affect Course <Gerry Jenkins, DO - Last Filed: 10/23/18 15:07> Vital Signs Temperature 37.4 C 07/30/18 17:15 Pulse 83 07/30/18 17:15 Respiratory Rate 16 07/30/18 17:15 Blood Pressure 124/89 07/30/18 17:15 Pulse Oximetry 96 07/30/18 17:15 Temperature 37.4 C 07/30/18 17:15 Temperature Source Skin 07/30/18 17:15 Pulse 83 07/30/18 17:15 Respiratory Rate 16 07/30/18 17:15 Respiratory Effort 07/30/18 17:18 Blood Pressure 124/89 07/30/18 17:15 Blood Pressure Position Sitting 07/30/18 17:15 Pulse Oximetry 96 07/30/18 17:15 Oxygen Delivery Method Room Air 07/30/18 17:15 Oxygen Flow Rate 0 07/30/18 17:15 Pain Level 0 07/30/18 17:15 Sign Out <Gerry Jenkins DO - Last Filed: 10/23/18 15:07> Sign Out Data: Sign Out Comment: Pending repeat troponin and repeat potassium. Last updated by Gerry Jenkins DO at 07/30/18 20:05
--- NOTE | 2018-07-30 18:06 | DI.VRAD_ITS ---
EXAM: XR Chest, 2 Views EXAM DATE/TIME: 07/30/2018 5:22 PM CLINICAL HISTORY: 47 years old, female; Signs and symptoms; Other: Generalized chest pain TECHNIQUE: Imaging protocol: XR of the chest, 2 views. COMPARISON: CR CHEST 2 VIEWS PA,LAT 11/14/2016 5:30 PM FINDINGS: Lungs: Unremarkable. No consolidation. Pleural space: Unremarkable. No pleural effusion. No pneumothorax. Heart/Mediastinum: Unremarkable. No cardiomegaly. Bones/joints: Unremarkable. Other findings: Evaluation of the retrosternal space is limited due to overlapping arm. IMPRESSION: No acute abnormality. Dictated and Authenticated by: Amanda Hampton MD. Ordering:MIGUELITO Garrett MD
[2018-07-30 18:11] LABS: ALT 37 U/L (12-78); AST 25 U/L (15-37); Albumin 3.6 g/dL (3.4-5.0); Alkaline Phosphatase 51 U/L (46-116); Anion Gap 8.3 mmol/L (3-11); BUN 19 mg/dL (7-18); Bilirubin, Total 0.3 mg/dL (0.2-1.0); CO2 28.7 mmol/L (21.0-32.0); CREATININE 1.15 mg/dL (0.55-1.02); Calcium 8.9 mg/dL (8.5-10.1); Chloride 102 mmol/L (98-107); Estimated GFR 50.36 (mL/min/1.73m2); Glucose 105 mg/dL (70-100); Magnesium 1.9 mg/dL (1.8-2.4); Sodium 139 mmol/L (136-145); TSH (W/Ref FT4) 2.81 uIU/mL (0.358-3.74); Total Protein 7.1 g/dL (6.4-8.2)
[2018-07-30 18:12] LABS: Potassium 2.9 mmol/L (3.5-5.1); Troponin I < 0.02 ng/mL (0.00-0.06)
[2018-07-30] MEDS: MAGNESIUM SULFATE 1 GM/100 ML BAG IVPB (18:59)
[2018-07-30] MEDS: POTASSIUM CHLORIDE 20 MEQ/100 ML BAG 50 MEQ IVPB (19:00)
[2018-07-30] MEDS: Potassium Chloride 20 MEQ TABCR 40 MEQ PO (19:00)
[2018-07-30 21:00] LABS: Anion Gap 10.4 mmol/L (3-11); BUN 20 mg/dL (7-18); CO2 25.6 mmol/L (21.0-32.0); CREATININE 1.07 mg/dL (0.55-1.02); Calcium 8.4 mg/dL (8.5-10.1); Chloride 102 mmol/L (98-107); Estimated GFR 54.73 (mL/min/1.73m2); Glucose 108 mg/dL (70-100); Potassium 3.3 mmol/L (3.5-5.1); Sodium 138 mmol/L (136-145)
[2018-07-30 21:04] LABS: Troponin I < 0.02 ng/mL (0.00-0.06)
== END 2018-07-30 21:18 | disposition home or self-care (01) ==
PROVIDERS: Student in an Organized Health Care Education/Training Program; Emergency Provider Emergency Medicine; PCP Student in an Organized Health Care Education/Training Program
DX: E87.6 Hypokalemia (principal); R53.83 Other fatigue
CPT/HCPCS: 80048; 80053; 93005; 96365; 96366; 96368; 99285; 71046; 83735; 84443; 84484; 85025; 93010; J3475; J3480

== ENCOUNTER 2018-08-05 12:08 | Outpatient (CLI) | payer OTHER, SELFPAY ==
[2018-08-05 13:24] LABS: Anion Gap 9.8 mmol/L (3-11); BUN 16 mg/dL (7-18); CO2 26.2 mmol/L (21.0-32.0); CREATININE 0.91 mg/dL (0.55-1.02); Calcium 9.3 mg/dL (8.5-10.1); Chloride 104 mmol/L (98-107); Glucose 108 mg/dL (70-100); Potassium 3.7 mmol/L (3.5-5.1); Sodium 140 mmol/L (136-145)
== END 2018-08-05 12:28 ==
PROVIDERS: PCP Student in an Organized Health Care Education/Training Program; Visit Provider Nurse Practitioner Adult Health
DX: E87.6 Hypokalemia (principal); K52.9 Noninfective gastroenteritis and colitis, unspecified
CPT/HCPCS: 36415; 80048; 83520; 83735

== ENCOUNTER 2018-08-20 09:16 | Outpatient (CLI) | payer OTHER, SELFPAY ==
[2018-08-20 10:57] LABS: Anion Gap 10.2 mmol/L (3-11); BUN 22 mg/dL (7-18); CO2 28.8 mmol/L (21.0-32.0); CREATININE 1.04 mg/dL (0.55-1.02); Calcium 8.7 mg/dL (8.5-10.1); Chloride 101 mmol/L (98-107); Estimated GFR 56.56 (mL/min/1.73m2); Glucose 147 mg/dL (70-100); Potassium 3.2 mmol/L (3.5-5.1); Sodium 140 mmol/L (136-145)
== END 2018-08-20 09:36 ==
PROVIDERS: PCP Student in an Organized Health Care Education/Training Program; Visit Provider Student in an Organized Health Care Education/Training Program
DX: H57.89 Other specified disorders of eye and adnexa (principal); R19.7 Diarrhea, unspecified; R21 Rash and other nonspecific skin eruption; R23.2 Flushing; R60.9 Edema, unspecified; R79.89 Other specified abnormal findings of blood chemistry
CPT/HCPCS: 36415; 80048; 83520

== ENCOUNTER 2018-08-24 10:30 | Outpatient (CLI) | payer OTHER, SELFPAY ==
[2018-08-24 11:27] LABS: Anion Gap 9.9 mmol/L (3-11); BUN 23 mg/dL (7-18); CO2 26.1 mmol/L (21.0-32.0); CREATININE 0.91 mg/dL (0.55-1.02); Chloride 104 mmol/L (98-107); Glucose 117 mg/dL (70-100); Sodium 140 mmol/L (136-145)
== END 2018-08-24 10:50 ==
PROVIDERS: PCP Student in an Organized Health Care Education/Training Program; Visit Provider Student in an Organized Health Care Education/Training Program
DX: E87.6 Hypokalemia (principal); R19.7 Diarrhea, unspecified
CPT/HCPCS: 36415; 80048; 83735

== ENCOUNTER 2018-08-28 09:00 | Outpatient (RCR) | payer OTHER, SELFPAY ==
[2018-08-23] MEDS: Normal Saline Flush 10 ML SYR IVP (14:10)
[2018-08-28] MEDS: Normal Saline Flush 10 ML SYR IVP (09:14)
[2018-08-28 12:22] LABS: Anion Gap 8.9 mmol/L (3-11); BUN 19 mg/dL (7-18); CO2 30.1 mmol/L (21.0-32.0); CREATININE 0.92 mg/dL (0.55-1.02); Calcium 9.3 mg/dL (8.5-10.1); Chloride 101 mmol/L (98-107); Glucose 103 mg/dL (70-100); Magnesium 2.1 mg/dL (1.8-2.4); Potassium 3.2 mmol/L (3.5-5.1); Sodium 140 mmol/L (136-145)
== END 2018-08-30 23:59 | disposition home or self-care (01) ==
LOC: INF 09:00
PROVIDERS: PCP Student in an Organized Health Care Education/Training Program; Visit Provider Student in an Organized Health Care Education/Training Program
DX: E86.0 Dehydration (principal); E87.6 Hypokalemia; R19.7 Diarrhea, unspecified
CPT/HCPCS: 36415; 80048; 96360; 96361; 83735

== ENCOUNTER 2018-09-05 09:52 | Outpatient (CLI) | payer OTHER, SELFPAY ==
[2018-09-05 10:34] LABS: Anion Gap 11.6 mmol/L (3-11); BUN 19 mg/dL (7-18); CO2 27.4 mmol/L (21.0-32.0); CREATININE 0.94 mg/dL (0.55-1.02); Calcium 9.4 mg/dL (8.5-10.1); Chloride 100 mmol/L (98-107); Glucose 109 mg/dL (70-100); Potassium 3.1 mmol/L (3.5-5.1); Sodium 139 mmol/L (136-145)
== END 2018-09-05 10:12 ==
PROVIDERS: PCP Student in an Organized Health Care Education/Training Program; Visit Provider Student in an Organized Health Care Education/Training Program
DX: E86.0 Dehydration (principal); E87.6 Hypokalemia; R53.1 Weakness
CPT/HCPCS: 36415; 80048; 83735

== ENCOUNTER 2018-09-06 10:30 | Outpatient (REF) | payer OTHER, SELFPAY ==
[2018-09-11 15:54] LABS: Creatinine Concentration,24hrU 128 mg/dL; N-Methylhistamine, 24hr 101 mcg/g Cr (30-200); Urine Volume 1200 mL
[2018-09-13 12:46] LABS: 2,3-Dinor-11B-ProstaglandinF2a 1115 pg/mg Cr (<5205)
== END 2018-09-06 10:50 ==
LOC: LBN 10:30
PROVIDERS: PCP Student in an Organized Health Care Education/Training Program; Visit Provider Internal Medicine
DX: R23.2 Flushing (principal); R19.7 Diarrhea, unspecified
CPT/HCPCS: 84150; 81050; 83789

== ENCOUNTER 2018-09-08 09:07 | Outpatient (REF) | payer OTHER, SELFPAY ==
[2018-09-11 18:52] LABS: Metanephrines, U 138 mcg/24 h; Normetanephrine, U 502 mcg/24 h; Total Metanephrines, U 640 mcg/24 h; Urine Volume 1125 mL
== END 2018-09-08 09:27 ==
LOC: LBN 09:07
PROVIDERS: PCP Student in an Organized Health Care Education/Training Program; Visit Provider Internal Medicine
DX: R23.2 Flushing (principal); R19.7 Diarrhea, unspecified
CPT/HCPCS: 81050; 83835

== ENCOUNTER 2018-09-09 08:52 | Outpatient (CLI) | payer OTHER, SELFPAY ==
[2018-09-09 10:53] LABS: Anion Gap 11.7 mmol/L (3-11); BUN 21 mg/dL (7-18); CO2 26.3 mmol/L (21.0-32.0); CREATININE 1.01 mg/dL (0.55-1.02); Chloride 101 mmol/L (98-107); Glucose 141 mg/dL (70-100); Magnesium 1.8 mg/dL (1.8-2.4); Potassium 3.3 mmol/L (3.5-5.1); Sodium 139 mmol/L (136-145)
== END 2018-09-09 09:12 ==
PROVIDERS: PCP Student in an Organized Health Care Education/Training Program; Visit Provider Student in an Organized Health Care Education/Training Program
DX: E86.0 Dehydration (principal); R53.1 Weakness
CPT/HCPCS: 36415; 80048; 83735

== ENCOUNTER 2018-09-13 09:02 | Outpatient (CLI) | payer OTHER, SELFPAY ==
[2018-09-13 09:57] LABS: Anion Gap 10.6 mmol/L (3-11); BUN 19 mg/dL (7-18); CO2 26.4 mmol/L (21.0-32.0); CREATININE 1.09 mg/dL (0.55-1.02); Calcium 9.5 mg/dL (8.5-10.1); Chloride 102 mmol/L (98-107); Estimated GFR 53.57 (mL/min/1.73m2); Glucose 123 mg/dL (70-100); Magnesium 2.1 mg/dL (1.8-2.4); Potassium 3.4 mmol/L (3.5-5.1); Sodium 139 mmol/L (136-145)
== END 2018-09-13 09:22 ==
PROVIDERS: PCP Student in an Organized Health Care Education/Training Program; Visit Provider Student in an Organized Health Care Education/Training Program
DX: E86.0 Dehydration (principal); R53.1 Weakness
CPT/HCPCS: 36415; 80048; 83735

== ENCOUNTER 2018-09-17 08:40 | Outpatient (CLI) | payer OTHER, SELFPAY ==
[2018-09-17 10:10] LABS: Anion Gap 13.1 mmol/L (3-11); BUN 17 mg/dL (7-18); CO2 26.9 mmol/L (21.0-32.0); CREATININE 1.01 mg/dL (0.55-1.02); Calcium 9.5 mg/dL (8.5-10.1); Chloride 101 mmol/L (98-107); Glucose 118 mg/dL (70-100); Potassium 3.5 mmol/L (3.5-5.1); Sodium 141 mmol/L (136-145)
[2018-09-20 09:01] LABS: Anion Gap 13.8 mmol/L (3-11); BUN 18 mg/dL (7-18); CO2 24.2 mmol/L (21.0-32.0); CREATININE 0.94 mg/dL (0.55-1.02); Calcium 8.8 mg/dL (8.5-10.1); Chloride 103 mmol/L (98-107); Glucose 116 mg/dL (70-100); Magnesium 1.9 mg/dL (1.8-2.4); Potassium 3.1 mmol/L (3.5-5.1); Sodium 141 mmol/L (136-145)
== END 2018-09-17 09:00 ==
PROVIDERS: PCP Student in an Organized Health Care Education/Training Program; Visit Provider Student in an Organized Health Care Education/Training Program
DX: E86.0 Dehydration (principal); R53.1 Weakness
CPT/HCPCS: 36415; 80048; 83735

== ENCOUNTER 2018-09-20 01:18 | Outpatient (CLI) | payer OTHER, SELFPAY ==
--- NOTE | 2018-09-20 08:39 | DI.CT_ITS ---
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 Images were performed from the lung bases through the ischial tuberosities before and after IV contrast. 15 minute delayed sequences also performed. There is no evidence of an adrenal mass. There is mild fatty infiltration of the liver. The spleen, gallbladder, pancreas and kidneys appear normal. The appendix appears normal. There is no bowel dilatation or inflammatory change. There is a normal quantity of stool. There is a small hiatal hernia. The lung bases are clear. The heart size appears normal. There are stable tiny lymph nodes in the para aortic region. There are mild degenerative disc changes and degenerative changes at the inferior S-I joints. No lytic or sclerotic suspicious lesions are seen. There is no evidence of ascites. The uterus is again noted to be quite enlarged consistent with fibroids. The bladder is nearly empty. IMPRESSION: No evidence of adrenal mass, adenopathy or other acute abnormality.
[2018-09-20] MEDS: Omnipaque 350 MG/ML 100 ML BTL IJ (09:49)
== END 2018-09-20 01:38 ==
PROVIDERS: PCP Student in an Organized Health Care Education/Training Program; Visit Provider Student in an Organized Health Care Education/Training Program
DX: D47.09 Other mast cell neoplasms of uncertain behavior (principal); D49.7 Neoplasm of unspecified behavior of endocrine glands and other parts of nervous system; E86.0 Dehydration; K76.0 Fatty (change of) liver, not elsewhere classified; K44.9 Diaphragmatic hernia without obstruction or gangrene
CPT/HCPCS: 74178; J3490

== ENCOUNTER 2018-09-24 09:27 | Outpatient (CLI) | payer OTHER, SELFPAY ==
[2018-09-24 11:03] LABS: Anion Gap 14.2 mmol/L (3-11); BUN 16 mg/dL (7-18); CO2 27.8 mmol/L (21.0-32.0); Calcium 9.4 mg/dL (8.5-10.1); Chloride 101 mmol/L (98-107); Estimated GFR 59.18 (mL/min/1.73m2); Glucose 112 mg/dL (70-100); Magnesium 1.9 mg/dL (1.8-2.4); Potassium 3.3 mmol/L (3.5-5.1); Sodium 143 mmol/L (136-145)
== END 2018-09-24 09:47 ==
PROVIDERS: PCP Student in an Organized Health Care Education/Training Program; Visit Provider Student in an Organized Health Care Education/Training Program
DX: E86.0 Dehydration (principal); E87.6 Hypokalemia
CPT/HCPCS: 36415; 80048; 83735

== ENCOUNTER 2018-09-26 01:22 | Outpatient (RCR) | payer OTHER, SELFPAY ==
[2018-09-04] MEDS: Normal Saline Flush 10 ML SYR IVP (09:27)
[2018-09-12] MEDS: Normal Saline Flush 10 ML SYR IVP (09:30)
[2018-09-16] MEDS: Normal Saline Flush 10 ML SYR IVP (09:11)
[2018-09-19] MEDS: Normal Saline Flush 10 ML SYR IVP (09:24)
[2018-09-23] MEDS: Normal Saline Flush 10 ML SYR IVP (09:25)
[2018-09-26] MEDS: Normal Saline Flush 10 ML SYR IVP (09:24)
== END 2018-09-29 23:59 | disposition home or self-care (01) ==
LOC: INF 01:22
PROVIDERS: PCP Student in an Organized Health Care Education/Training Program; Visit Provider Student in an Organized Health Care Education/Training Program
DX: D47.09 Other mast cell neoplasms of uncertain behavior (principal); E86.0 Dehydration; E87.6 Hypokalemia
CPT/HCPCS: 36430; 96360; 96361; 96365; 96366

== ENCOUNTER 2018-09-27 08:36 | Outpatient (CLI) | payer OTHER, SELFPAY ==
[2018-09-27 11:08] LABS: Anion Gap 11.2 mmol/L (3-11); BUN 19 mg/dL (7-18); CO2 24.8 mmol/L (21.0-32.0); CREATININE 0.94 mg/dL (0.55-1.02); Calcium 8.9 mg/dL (8.5-10.1); Chloride 104 mmol/L (98-107); Glucose 114 mg/dL (70-100); Magnesium 1.9 mg/dL (1.8-2.4); Potassium 3.3 mmol/L (3.5-5.1); Sodium 140 mmol/L (136-145)
== END 2018-09-27 08:56 ==
PROVIDERS: PCP Student in an Organized Health Care Education/Training Program; Visit Provider Student in an Organized Health Care Education/Training Program
DX: E86.0 Dehydration (principal); E87.6 Hypokalemia; R53.1 Weakness
CPT/HCPCS: 36415; 80048; 83735

== ENCOUNTER 2018-09-30 08:31 | Outpatient (CLI) | payer OTHER, SELFPAY ==
[2018-09-30 09:27] LABS: Anion Gap 11.5 mmol/L (3-11); BUN 20 mg/dL (7-18); CO2 26.5 mmol/L (21.0-32.0); CREATININE 1.02 mg/dL (0.55-1.02); Calcium 8.8 mg/dL (8.5-10.1); Chloride 103 mmol/L (98-107); Estimated GFR 57.84 (mL/min/1.73m2); Glucose 143 mg/dL (70-100); Magnesium 1.9 mg/dL (1.8-2.4); Sodium 141 mmol/L (136-145)
== END 2018-09-30 08:51 ==
PROVIDERS: PCP Student in an Organized Health Care Education/Training Program; Visit Provider Student in an Organized Health Care Education/Training Program
DX: E87.6 Hypokalemia (principal); E86.0 Dehydration; R53.1 Weakness
CPT/HCPCS: 36415; 80048; 83735

== ENCOUNTER 2018-10-01 02:01 | Outpatient (CLI) | payer OTHER, SELFPAY ==
[2018-10-01 13:49] LABS: Anion Gap 12.4 mmol/L (3-11); BUN 20 mg/dL (7-18); CO2 25.6 mmol/L (21.0-32.0); CREATININE 0.98 mg/dL (0.55-1.02); Chloride 103 mmol/L (98-107); Glucose 136 mg/dL (70-100); Magnesium 1.8 mg/dL (1.8-2.4); Potassium 3.4 mmol/L (3.5-5.1); Sodium 141 mmol/L (136-145)
== END 2018-10-01 02:21 ==
PROVIDERS: PCP Student in an Organized Health Care Education/Training Program; Visit Provider Student in an Organized Health Care Education/Training Program
DX: E86.0 Dehydration (principal); E87.6 Hypokalemia
CPT/HCPCS: 36415; 80048; 83735

== ENCOUNTER 2018-10-04 08:36 | Outpatient (CLI) | payer OTHER, SELFPAY ==
[2018-10-04 09:51] LABS: Anion Gap 9.5 mmol/L (3-11); BUN 18 mg/dL (7-18); CO2 26.5 mmol/L (21.0-32.0); CREATININE 0.97 mg/dL (0.55-1.02); Calcium 9.5 mg/dL (8.5-10.1); Chloride 103 mmol/L (98-107); Glucose 130 mg/dL (70-100); Magnesium 1.9 mg/dL (1.8-2.4); Potassium 3.5 mmol/L (3.5-5.1); Sodium 139 mmol/L (136-145)
== END 2018-10-04 08:56 ==
PROVIDERS: PCP Student in an Organized Health Care Education/Training Program; Visit Provider Student in an Organized Health Care Education/Training Program
DX: E87.6 Hypokalemia (principal); E86.0 Dehydration; D47.3 Essential (hemorrhagic) thrombocythemia
CPT/HCPCS: 36415; 80048; 83735

== ENCOUNTER 2018-10-06 10:23 | Outpatient (CLI) | payer OTHER, SELFPAY ==
[2018-10-06 11:20] LABS: Anion Gap 12.6 mmol/L (3-11); BUN 18 mg/dL (7-18); CO2 23.4 mmol/L (21.0-32.0); Chloride 104 mmol/L (98-107); Estimated GFR 59.18 (mL/min/1.73m2); Glucose 143 mg/dL (70-100); Magnesium 1.8 mg/dL (1.8-2.4); Potassium 3.3 mmol/L (3.5-5.1); Sodium 140 mmol/L (136-145)
== END 2018-10-06 10:43 ==
PROVIDERS: PCP Student in an Organized Health Care Education/Training Program; Visit Provider Student in an Organized Health Care Education/Training Program
DX: E87.6 Hypokalemia (principal); E86.0 Dehydration; D47.3 Essential (hemorrhagic) thrombocythemia; D72.829 Elevated white blood cell count, unspecified
CPT/HCPCS: 36415; 80048; 83735

== ENCOUNTER 2018-10-08 09:54 | Outpatient (CLI) | payer OTHER, SELFPAY ==
[2018-10-08 10:17] LABS: BUN 16 mg/dL (7-18); CREATININE 0.99 mg/dL (0.55-1.02); Chloride 103 mmol/L (98-107); Estimated GFR 59.87 (mL/min/1.73m2); Glucose 121 mg/dL (70-100); Magnesium 1.8 mg/dL (1.8-2.4); Potassium 3.2 mmol/L (3.5-5.1); Sodium 140 mmol/L (136-145)
== END 2018-10-08 10:14 ==
PROVIDERS: PCP Student in an Organized Health Care Education/Training Program; Visit Provider Student in an Organized Health Care Education/Training Program
DX: R53.1 Weakness (principal); E87.6 Hypokalemia; D47.3 Essential (hemorrhagic) thrombocythemia
CPT/HCPCS: 36415; 80048; 83735

== ENCOUNTER 2018-10-10 08:51 | Outpatient (CLI) | payer OTHER, SELFPAY ==
[2018-10-10 09:16] LABS: Anion Gap 10.3 mmol/L (3-11); BUN 18 mg/dL (7-18); CO2 26.7 mmol/L (21.0-32.0); CREATININE 0.93 mg/dL (0.55-1.02); Calcium 8.6 mg/dL (8.5-10.1); Chloride 103 mmol/L (98-107); Glucose 134 mg/dL (70-100); Magnesium 1.6 mg/dL (1.8-2.4); Potassium 3.3 mmol/L (3.5-5.1); Sodium 140 mmol/L (136-145)
== END 2018-10-10 09:11 ==
PROVIDERS: PCP Student in an Organized Health Care Education/Training Program; Visit Provider Student in an Organized Health Care Education/Training Program
DX: E86.0 Dehydration (principal); R53.1 Weakness; D47.3 Essential (hemorrhagic) thrombocythemia
CPT/HCPCS: 36415; 80048; 83735

== ENCOUNTER 2018-10-13 09:37 | Outpatient (CLI) | payer OTHER, SELFPAY ==
[2018-10-13 11:57] LABS: Anion Gap 11.6 mmol/L (3-11); BUN 19 mg/dL (7-18); CO2 26.4 mmol/L (21.0-32.0); CREATININE 0.89 mg/dL (0.55-1.02); Calcium 9.4 mg/dL (8.5-10.1); Chloride 103 mmol/L (98-107); Glucose 135 mg/dL (70-100); Potassium 3.2 mmol/L (3.5-5.1); Sodium 141 mmol/L (136-145)
== END 2018-10-13 09:57 ==
PROVIDERS: PCP Student in an Organized Health Care Education/Training Program; Visit Provider Student in an Organized Health Care Education/Training Program
DX: R53.1 Weakness (principal); E86.0 Dehydration; D47.3 Essential (hemorrhagic) thrombocythemia
CPT/HCPCS: 36415; 80048; 83735

== ENCOUNTER 2018-10-21 08:39 | Outpatient (CLI) | payer OTHER, SELFPAY ==
[2018-10-21 10:23] LABS: BUN 19 mg/dL (7-18); CREATININE 1.03 mg/dL (0.55-1.02); Chloride 105 mmol/L (98-107); Estimated GFR 57.19 (mL/min/1.73m2); Glucose 140 mg/dL (70-100); Magnesium 1.8 mg/dL (1.8-2.4); Potassium 4.3 mmol/L (3.5-5.1); Sodium 141 mmol/L (136-145)
== END 2018-10-21 08:59 ==
PROVIDERS: PCP Student in an Organized Health Care Education/Training Program; Visit Provider Student in an Organized Health Care Education/Training Program
DX: D47.09 Other mast cell neoplasms of uncertain behavior (principal); R53.1 Weakness; E86.0 Dehydration
CPT/HCPCS: 36415; 80048; 83735

== ENCOUNTER 2018-10-23 11:40 | Outpatient (CLI) | payer OTHER, SELFPAY ==
[2018-10-23 12:14] LABS: Anion Gap 11.6 mmol/L (3-11); BUN 17 mg/dL (7-18); CO2 25.4 mmol/L (21.0-32.0); CREATININE 1.02 mg/dL (0.55-1.02); Calcium 9.5 mg/dL (8.5-10.1); Chloride 101 mmol/L (98-107); Estimated GFR 57.84 (mL/min/1.73m2); Glucose 139 mg/dL (70-100); Magnesium 1.9 mg/dL (1.8-2.4); Potassium 3.2 mmol/L (3.5-5.1); Sodium 138 mmol/L (136-145)
== END 2018-10-23 12:00 ==
PROVIDERS: PCP Student in an Organized Health Care Education/Training Program; Visit Provider Student in an Organized Health Care Education/Training Program
DX: D47.09 Other mast cell neoplasms of uncertain behavior (principal); E86.0 Dehydration; R53.1 Weakness
CPT/HCPCS: 36415; 80048; 83735

== ENCOUNTER 2018-10-25 09:34 | Outpatient (CLI) | payer OTHER, SELFPAY ==
[2018-10-25 11:21] LABS: Anion Gap 12.3 mmol/L (3-11); BUN 18 mg/dL (7-18); CO2 24.7 mmol/L (21.0-32.0); CREATININE 0.91 mg/dL (0.55-1.02); Calcium 9.4 mg/dL (8.5-10.1); Chloride 101 mmol/L (98-107); Glucose 115 mg/dL (70-100); Magnesium 1.7 mg/dL (1.8-2.4); Potassium 3.6 mmol/L (3.5-5.1); Sodium 138 mmol/L (136-145)
== END 2018-10-25 09:54 ==
PROVIDERS: PCP Student in an Organized Health Care Education/Training Program; Visit Provider Student in an Organized Health Care Education/Training Program
DX: E87.6 Hypokalemia (principal)
CPT/HCPCS: 36415; 80048; 83735

== ENCOUNTER 2018-10-28 01:01 | Outpatient (RCR) | payer OTHER, SELFPAY ==
[2018-09-30] MEDS: Normal Saline Flush 10 ML SYR IVP (09:31)
[2018-10-04] MEDS: Normal Saline Flush 10 ML SYR IVP (09:00)
[2018-10-07] MEDS: Normal Saline Flush 10 ML SYR IVP (09:07)
[2018-10-10] MEDS: POTASSIUM CHLORIDE/0.9% NACL 1,000 ML 250 MEQ IV (09:25)
[2018-10-10] MEDS: Normal Saline Flush 10 ML SYR IVP (09:25)
[2018-10-10 14:35] LABS: Chloride 105 mmol/L (98-107)
[2018-10-10 14:44] LABS: Anion Gap 11.8 mmol/L (3-11); BUN 15 mg/dL (7-18); CO2 25.2 mmol/L (21.0-32.0); CREATININE 0.88 mg/dL (0.55-1.02); Calcium 8.8 mg/dL (8.5-10.1); Glucose 110 mg/dL (70-100); Potassium 3.5 mmol/L (3.5-5.1); Sodium 142 mmol/L (136-145)
[2018-10-14] MEDS: Normal Saline Flush 10 ML SYR IVP (09:20)
[2018-10-14 09:27] VITALS: BP 135/92
[2018-10-14] MEDS: POTASSIUM CHLORIDE/0.9% NACL 1,000 ML 250 MEQ IV (09:28)
[2018-10-14 14:48] LABS: Anion Gap 12.6 mmol/L (3-11); BUN 19 mg/dL (7-18); CO2 22.4 mmol/L (21.0-32.0); Calcium 8.7 mg/dL (8.5-10.1); Chloride 105 mmol/L (98-107); Glucose 137 mg/dL (70-100); Potassium 3.3 mmol/L (3.5-5.1); Sodium 140 mmol/L (136-145)
[2018-10-17 09:44] LABS: Anion Gap 10.3 mmol/L (3-11); BUN 20 mg/dL (7-18); CO2 25.7 mmol/L (21.0-32.0); CREATININE 0.87 mg/dL (0.55-1.02); Calcium 9.3 mg/dL (8.5-10.1); Chloride 103 mmol/L (98-107); Glucose 121 mg/dL (70-100); Magnesium 2.1 mg/dL (1.8-2.4); Potassium 3.6 mmol/L (3.5-5.1); Sodium 139 mmol/L (136-145)
[2018-10-17 15:01] LABS: Potassium 3.7 mmol/L (3.5-5.1)
[2018-10-21] MEDS: Normal Saline Flush 10 ML SYR IVP (09:05)
[2018-10-21] MEDS: POTASSIUM CHLORIDE/0.9% NACL 1,000 ML 250 MEQ IV (09:12)
[2018-10-21 10:17] VITALS: BP 147/83
[2018-10-21 12:05] LABS: Anion Gap 11.6 mmol/L (3-11); BUN 18 mg/dL (7-18); CO2 24.4 mmol/L (21.0-32.0); CREATININE 0.94 mg/dL (0.55-1.02); Calcium 9.1 mg/dL (8.5-10.1); Chloride 104 mmol/L (98-107); Glucose 99 mg/dL (70-100); Potassium 4.1 mmol/L (3.5-5.1); Sodium 140 mmol/L (136-145)
[2018-10-24] MEDS: POTASSIUM CHLORIDE 20 MEQ/100 ML BAG 50 MEQ IVPB ×2 (08:55→11:00)
[2018-10-24] MEDS: Normal Saline Flush 10 ML SYR IVP (09:01)
[2018-10-28] MEDS: POTASSIUM CHLORIDE 20 MEQ/100 ML BAG 50 MEQ IVPB ×2 (08:48→12:17)
[2018-10-28] MEDS: Normal Saline Flush 10 ML SYR IVP (08:48)
[2018-10-28 17:31] LABS: Potassium 3.7 mmol/L (3.5-5.1)
== END 2018-10-30 23:59 | disposition home or self-care (01) ==
LOC: INF 01:01
PROVIDERS: PCP Student in an Organized Health Care Education/Training Program; Visit Provider Student in an Organized Health Care Education/Training Program
DX: E87.6 Hypokalemia (principal)
CPT/HCPCS: 36415; 80048; 96360; 96361; 96365; 96366; 96523; 83735; 84132; J3480

== ENCOUNTER 2018-10-28 01:07 | Outpatient (CLI) | payer OTHER, SELFPAY ==
[2018-10-28 08:30] LABS: Anion Gap 13.4 mmol/L (3-11); BUN 25 mg/dL (7-18); CO2 22.6 mmol/L (21.0-32.0); CREATININE 0.97 mg/dL (0.55-1.02); Chloride 102 mmol/L (98-107); Glucose 159 mg/dL (70-100); Magnesium 1.9 mg/dL (1.8-2.4); Potassium 3.2 mmol/L (3.5-5.1); Sodium 138 mmol/L (136-145)
== END 2018-10-28 01:27 ==
PROVIDERS: PCP Student in an Organized Health Care Education/Training Program; Visit Provider Student in an Organized Health Care Education/Training Program
DX: E86.0 Dehydration (principal); R53.1 Weakness; E87.6 Hypokalemia
CPT/HCPCS: 36415; 80048; 83735

== ENCOUNTER 2018-10-30 01:12 | Outpatient (CLI) | payer OTHER, SELFPAY ==
[2018-10-30] MEDS: Omnipaque 350 MG/ML 100 ML BTL IJ (14:57)
[2018-10-30] MEDS: Normal Saline Flush 10 ML SYR IVP (14:58)
--- NOTE | 2018-10-30 14:59 | DI.CT_ITS ---
SYMPTOMS/DIAGNOSIS: ESSENTIAL HYPERTENSION, I10, H/O RESISTANT HYPERTENSION, ? RENAL ARTERY DISEASE RENAL CTA: CT angiography was performed with multi slice acquisition and multi planar and 3D reconstruction. The study was conducted according to the usual protocol with intravenous administration of 100 cc of Omnipaque 350. The abdominal aorta as visualized is unremarkable. The renal arteries appear normal. The kidneys are normal. The liver, gallbladder, pancreas and spleen are intact. The adrenals are normal. There is no evidence of bowel obstruction and no localized bowel abnormality is noted in the upper or mid abdomen. SUMMARY: The kidneys are normal. The renal arteries appear normal.
== END 2018-10-30 01:32 ==
PROVIDERS: PCP Student in an Organized Health Care Education/Training Program; Visit Provider Student in an Organized Health Care Education/Training Program
DX: I10 Essential (primary) hypertension (principal)
CPT/HCPCS: 71275; J3490

== ENCOUNTER 2018-10-30 07:00 | Outpatient (REF) | payer OTHER, SELFPAY ==
[2018-11-01 18:44] LABS: 5-Hydroxyindoleacetic Acid, U 4.5 mg/24 h (<=7.6); Urine Volume 1325 mL
== END 2018-10-30 07:20 ==
LOC: LBN 07:00
PROVIDERS: PCP Student in an Organized Health Care Education/Training Program; Visit Provider Internal Medicine Endocrinology, Diabetes & Metabolism
DX: R19.7 Diarrhea, unspecified (principal)
CPT/HCPCS: 81050; 83497

== ENCOUNTER 2018-10-31 08:41 | Outpatient (CLI) | payer OTHER, SELFPAY ==
[2018-10-31 09:40] LABS: Hemoglobin A1C 5.9 % (4.5-6.2)
[2018-10-31 10:18] LABS: Anion Gap 12.1 mmol/L (3-11); BUN 19 mg/dL (7-18); CO2 22.9 mmol/L (21.0-32.0); CREATININE 0.92 mg/dL (0.55-1.02); Calcium 8.9 mg/dL (8.5-10.1); Chloride 105 mmol/L (98-107); Glucose 119 mg/dL (70-100); Potassium 3.7 mmol/L (3.5-5.1); Sodium 140 mmol/L (136-145)
== END 2018-10-31 09:01 ==
PROVIDERS: PCP Student in an Organized Health Care Education/Training Program; Visit Provider Student in an Organized Health Care Education/Training Program
DX: R73.01 Impaired fasting glucose (principal); R73.9 Hyperglycemia, unspecified; E87.6 Hypokalemia; E86.0 Dehydration; R53.1 Weakness
CPT/HCPCS: 36415; 80048; 83036; 83735

== ENCOUNTER 2018-11-04 07:32 | Outpatient (CLI) | payer OTHER, SELFPAY ==
[2018-11-04 08:01] LABS: Anion Gap 11.6 mmol/L (3-11); BUN 21 mg/dL (7-18); CO2 24.4 mmol/L (21.0-32.0); CREATININE 0.99 mg/dL (0.55-1.02); Calcium 8.7 mg/dL (8.5-10.1); Chloride 104 mmol/L (98-107); Estimated GFR 59.87 (mL/min/1.73m2); Glucose 131 mg/dL (70-100); Magnesium 1.8 mg/dL (1.8-2.4); Potassium 3.6 mmol/L (3.5-5.1); Sodium 140 mmol/L (136-145)
== END 2018-11-04 07:52 ==
PROVIDERS: PCP Student in an Organized Health Care Education/Training Program; Visit Provider Student in an Organized Health Care Education/Training Program
DX: R23.2 Flushing (principal); R19.7 Diarrhea, unspecified; E86.0 Dehydration; R53.1 Weakness; E87.6 Hypokalemia
CPT/HCPCS: 36415; 80048; 83520; 83735

== ENCOUNTER 2018-11-07 05:43 | Emergency (ER) | payer OTHER, SELFPAY ==
[2018-11-07 05:46] VITALS: BP 150/87; PULSE 74; RESP 18; TEMP 36.4; O2SAT 98
--- NOTE | 2018-11-07 05:53 | ED.GENADUL_ITS ---
Discharge Plan Disposition Patient Disposition: HOME Condition: Good Discharge Details Chief Complaint: Headache Clinical Impression: Headache, Hypokalemia Primary Care Provider: Huyen Ramon ED Provider: Thomas Kelly Dubach Meds and New Rx's Prescriptions: Continued prochlorperazine maleate 5 mg tablet 5 mg PO Q8H PRN Qty: 30 RF: 3 topiramate [Topamax] 50 mg tablet 50 mg PO HS Qty: 90 RF: 3 gabapentin 300 mg capsule 300 mg PO TID Qty: 270 RF: 3 pramipexole [Mirapex] 0.25 mg tablet See Rx Instructions PO BID Qty: 270 RF: 3 cholestyramine (with sugar) 4 gram powder in packet 4 gm PO BID Qty: 60 RF: 0 hydrochlorothiazide 25 mg tablet 50 mg PO DAILY RF: 0 furosemide 20 mg tablet 20 mg PO QAM RF: 0 potassium chloride 20 mEq tablet extended release 20 meq PO BID Qty: 90 RF: 2 lisinopril 20 mg tablet 20 mg PO BID Qty: 180 RF: 3 multivitamin [Daily Multi-Vitamin] 1 EACH tablet 1 ea PO DAILY RF: 0 vitamin B complex 1 EACH capsule 1 ea PO DAILY RF: 0 hair prosthesis Miscellaneous DAILY Qty: 1 RF: 1 loperamide [Imodium A-D] 1 MG/7.5 ML liquid 1 mg PO Q48H PRNRF: 0 triamcinolone acetonide 0.5 % cream 1 applic TP BID Qty: 15 RF: 3 bupropion HCl [Wellbutrin XL] 300 mg tablet extended release 24 hr 300 mg PO DAILY Qty: 90 RF: 3 venlafaxine 37.5 mg tablet 37.5 mg PO DAILY Qty: 60 RF: 6 omeprazole 40 mg capsule,delayed release(DR/EC) 40 mg PO BID Qty: 90 RF: 3 ondansetron HCl [Zofran] 4 mg tablet 4 mg PO Q8H RF: 0 Discharge Instructions Instructions: Hypokalemia (ED), General Headache (ED) Additional Instructions: Your head CT is negative this morning. There is no evidence of bleeding. As we discussed recent studies have suggested that with a negative head CT done within 6 hours of onset of headache in patients with normal hematocrits and normal neurological exams, the likelihood of subarachnoid hemorrhage is still 2 and 1000. With this information you have declined lumbar puncture in a process of shared decision making. Please follow-up with primary care next week. Return to the ED immediately for any neurologic changes, vision changes, worsening headache, syncope. Your potassium was 2.9 today. It has been replaced both IV and orally. You do not need to go to the infusion center today. Resume normal medical management of your potassium levels. Referrals: Huyen Ramon, [Primary Care Provider] - Medical Decision Making Patient presenting with the worst headache of her life. Sudden in onset waking her up at 3 AM. No response to onfq-gyt-ripfoyh medications. Does not typically get headaches despite the migraine diagnosis as her migraines are migraine variants with vertigo. She is neurologically intact. We have discussed the risk of subarachnoid hemorrhage. We have discussed lumbar puncture. We have discussed CTA. We have discussed the studies involving negative head CTs and not performing lumbar puncture. For now we will proceed with IV, fluids, Benadryl, Reglan and CT of the head. 07:15 -patient feeling better although headache not completely resolved. Hemoglobin is normal. CT head has been read by Dr. Leo as normal with no evidence of subarachnoid hemorrhage. Chemistry revealed low potassium which she has had. Will replace with 10 IV and 20 p.o. We had further discussion regarding lumbar puncture. She does meet the criteria of normal neurologic exam, typical presentation, normal hemoglobin, presentation with 6 hours, CT read by experienced radiologist that studies would suggest there is only a 2 and 1000 chance of subarachnoid hemorrhage. With this information she is declining lumbar puncture. Plan is to finish her liter of saline and replenish her potassium. She will then be ready for discharge. We will have her follow-up with primary care. She will return to ED for any neurologic symptoms, worsening headache, other concerns. Medical Records Medical records reviewed: Yes I reviewed the patient's medical records. Lab Data Lab results reviewed: Yes I reviewed the patient's lab results. HPI General Mode of arrival: ambulatory . Date/Time Provider Initiated Documentation: 11/07/18 05:46 . Limitations to Documentation: no limitations . Information obtained by: patient, RN notes reviewed and old records reviewed . HPI Narrative: Patient presents to ED with complaint of headache. Patient reports severe, frontal, throbbing headache that woke her up at 3 AM. She has taken Tylenol and Motrin without any relief. She does report a history of migraines but states her migraines are actually vertigo, nausea and vomiting with minimal headache. This headache is something she has never experienced before. There has been no trauma. She has not been ill. She did not have a headache when she went to bed last night. She has no associated neurologic symptoms. There is no photosensitivity. There is minimal nausea. She has no posterior head pain or neck pain. Related Data Home Medications Medication Instructions Recorded Confirmed multivitamin [Daily Multi-Vitamin] 1 ea PO DAILY 07/22/14 11/07/18 vitamin B complex 1 ea PO DAILY 07/22/14 11/07/18 loperamide [Imodium A-D] 1 mg PO Q48H PRN 11/27/16 11/07/18 triamcinolone acetonide 0.5 % 1 applic TP BID #15 gm 01/15/18 11/07/18 topical cream gabapentin 300 mg capsule 300 mg PO TID #270 tab-cap 03/04/18 11/07/18 prochlorperazine maleate 5 mg 5 mg PO Q8H PRN #30 tab-cap 03/04/18 11/07/18 tablet topiramate 50 mg tablet 50 mg PO HS #90 tab-cap 03/04/18 11/07/18 pramipexole 0.25 mg tablet See Rx Instructions PO BID #270 05/13/18 11/07/18 tab-cap bupropion HCl 300 mg 24 hr tablet, 300 mg PO DAILY #90 tab 05/15/18 11/07/18 extended release venlafaxine 37.5 mg tablet 37.5 mg PO DAILY #60 tab 07/10/18 11/07/18 lisinopril 20 mg tablet 20 mg PO BID #180 tab-cap 08/06/18 11/07/18 potassium chloride 20 mEq 20 meq PO BID #90 tab 08/20/18 11/07/18 tablet,extended release omeprazole 40 mg capsule,delayed 40 mg PO BID #90 tab 09/05/18 11/07/18 release ondansetron HCl 4 mg tablet 4 mg PO Q8H 10/21/18 11/07/18 cholestyramine (with sugar) 4 gram 4 gm PO BID #60 each 10/28/18 10/28/18 powder for susp in a packet furosemide 20 mg tablet 20 mg PO QAM tab 10/30/18 hydrochlorothiazide 25 mg tablet 50 mg PO DAILY tab 10/30/18 11/07/18 Previous Rx's Medication Instructions Recorded triamcinolone acetonide 0.5 % 1 applic TP BID #15 gm 01/15/18 topical cream gabapentin 300 mg capsule 300 mg PO TID #270 tab-cap 03/04/18 prochlorperazine maleate 5 mg 5 mg PO Q8H PRN #30 tab-cap 03/04/18 tablet topiramate 50 mg tablet 50 mg PO HS #90 tab-cap 03/04/18 pramipexole 0.25 mg tablet See Rx Instructions PO BID #270 05/13/18 tab-cap bupropion HCl 300 mg 24 hr tablet, 300 mg PO DAILY #90 tab 05/15/18 extended release venlafaxine 37.5 mg tablet 37.5 mg PO DAILY #60 tab 07/10/18 lisinopril 20 mg tablet 20 mg PO BID #180 tab-cap 08/06/18 potassium chloride 20 mEq 20 meq PO BID #90 tab 08/20/18 tablet,extended release omeprazole 40 mg capsule,delayed 40 mg PO BID #90 tab 09/05/18 release cholestyramine (with sugar) 4 gram 4 gm PO BID #60 each 10/28/18 powder for susp in a packet Allergies Allergy/AdvReac Type Severity Reaction Status Date / Time iron [From Venofer] Allergy Severe Swelling/Ed Verified 10/30/18 18:12 brandon atropine Allergy Intermediate HIVES, Verified 10/30/18 18:12 SWOLLEN spironolactone Allergy Intermediate Skin Rash Verified 10/30/18 18:12 eplerenone AdvReac Intermediate swelling; Verified 10/30/18 18:12 SOB General Stated Complaint: Headache JOBY: 3 Review of Systems Review of Systems 01/13 Review of Systems completed and is negative except as stated above in HPI (Systems reviewed: Const, Eyes, ENT, Resp, CV, GI, , MSK, Skin, Neuro) [facility] Medical History Alopecia Anemia Depression GERD (gastroesophageal reflux disease) Marylou's thyroiditis Hx of adenomatous colonic polyps Hypertension Irritable bowel syndrome Migraine headache with aura (Chronic) Reflux esophagitis Surgical History section Colonoscopy - MAC (03/16/14) EGD - MAC Endometrial Ablation H/O colonoscopy (Chronic 12/05/17) History of esophagogastroduodenoscopy (EGD) (Chronic 12/05/17) Tonsillectomy Social History Smoking/Tobacco Use Status: Never Alcohol Intake: current Alcohol Intake frequency: holidays/special occasions only Drug use: Never Substance use type: does not use Adopted: No Caregiver/Support person: No Household members: significant other Housing: house Number of Children: 4 number of grandchildren: 0 Communication Needs: Corrective Lenses Education Level: college 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, 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 Pets and animals: Yes Pets and animals: cat(s) and dog(s) What is your relationship status?: living with partner Panel score (0-1 are the most socially isolated patients): 1 What type of physical activity do you participate in: walking Duration: 15-30 minutes/day Frequency: 3-4 times per week Seatbelt use: always Working smoke detector in home: Yes Fire extinguisher in home: Yes Carbon monox detector in home: Yes Firearms in home: No Do you feel safe at home: Yes Do you feel safe in your relationship?: Yes Female Reproductive History Menstrual control method: permanent sterilization History History 3 Para 4 Hx # Term Pregnancies Multiple births 1 Hx # Pregnancies Ectopic pregnancies AB induced Hx Number of Living Children AB spontaneous Exam Narrative Exam Narrative: Vitals: Afebrile. Normal vital signs other than elevated blood pressure. Const: Obese female in NAD. HEENT: NC/AT. Normal facial exam. Eyes: Normal conjunctiva and sclera. PERRL and EOMI. Visual gonzalez to confrontation in tact. Neck: Supple. Trachea midline. No meningeal signs. Lungs: Normal respiratory effort. Lungs are clear. Cor: RRR without murmur/gallop. Good radial pulses. Neuro: A+O x 3. CN II through XII in tact. Speech, cognition, strength, sensation, gait in tact. FTN is normal. Ext: No C/C/E. No deformity or tenderness. Skin: Warm and dry without rash. Course Vital Signs Temperature 97.5 F L 11/07/18 05:46 Pulse 74 11/07/18 05:46 Respiratory Rate 18 11/07/18 05:46 Blood Pressure 150/87 H 11/07/18 05:46 Pulse Oximetry 98 11/07/18 05:46 Temperature 97.5 F L 11/07/18 05:46 Temperature Source Tympanic 11/07/18 05:46 Pulse 74 11/07/18 05:46 Respiratory Rate 18 11/07/18 05:46 Respiratory Effort 11/07/18 05:51 Blood Pressure 150/87 H 11/07/18 05:46 Pulse Oximetry 98 11/07/18 05:46 Oxygen Delivery Method Room Air 11/07/18 05:46 Oxygen Flow Rate 0 11/07/18 05:46 Pain Level 9 11/07/18 05:46 Comment 11/07/18 05:46
--- NOTE | 2018-11-07 06:12 | DI.CT_ITS ---
SYMPTOM/DIAGNOSIS: HEADACHE CRANIAL CT: 11/07/[address] was performed. The ventricular system is normal in appearance. There is no evidence of an intracranial mass lesion. There is no evidence of a subdural or epidural hematoma. No focal areas of decreased attenuation are seen. CONCLUSION: Normal noncontrast Cranial CT.
[2018-11-07] MEDS: Normal Saline 1,000 ML 1000 ML IV (06:24)
[2018-11-07] MEDS: diphenhydrAMINE 50 MG/ML VIAL 25 MG IVP (06:26)
[2018-11-07] MEDS: Metoclopramide 10 MG/2 ML VIAL IVP (06:28)
[2018-11-07 06:38] LABS: Abs Immature Grans 0.02 k/cumm (0.0-0.09); Absolute Basophil Count 0.04 k/cumm (0.0-0.2); Absolute Eosinophil Count 0.46 k/cumm (0.0-0.7); Absolute Lymphocyte Count 3.59 k/cumm (1.2-3.4); Absolute Monocyte Count 0.61 k/cumm (0.11-0.7); Absolute Neutrophil Count 3.95 k/cumm (1.2-6.7); Basophils % 0.5; Eosinophils % 5.3; HCT 37.8 % (36.0-46.0); HGB 13.1 g/dL (12.0-15.5); Immature Grans % 0.2; Lymphocytes % 41.4; Mean Corp. HGB Concentration 34.7 g/dL (32.0-36.0); Mean Corpuscular Hemoglobin 29.5 pg (27.0-33.0); Mean Corpuscular Volume 85.1 fL (80-95); Mean Platelet Volume 9.2 fL (8.0-11.0); Neutrophils % 45.6; Platelet Count 346 x1000/uL (130-400); RBC 4.44 m/cumm (4.00-5.20); RBC Distribution Width 13.1 % (11.7-14.6); White Blood Cell Count 8.67 k/cumm (4.4-10.8)
[2018-11-07] MEDS: Normal Saline 50 ML 100 ML (06:40)
[2018-11-07 06:56] LABS: Anion Gap 9.7 mmol/L (3-11); BUN 20 mg/dL (7-18); CO2 27.3 mmol/L (21.0-32.0); CREATININE 1.05 mg/dL (0.55-1.02); Calcium 8.7 mg/dL (8.5-10.1); Chloride 103 mmol/L (98-107); Estimated GFR 55.94 (mL/min/1.73m2); Glucose 135 mg/dL (70-100); Sodium 140 mmol/L (136-145)
[2018-11-07 06:58] LABS: Potassium 2.9 mmol/L (3.5-5.1)
[2018-11-07] MEDS: Potassium Chloride 20 MEQ TABCR PO (07:53)
[2018-11-07] MEDS: POTASSIUM CHLORIDE 10 MEQ/100 ML BAG 100 MEQ IVPB (09:07)
--- NOTE | 2018-11-07 09:10 | NUR.NOTE ---
iv infusing k+ completed pt states improvment in symptoms Nursing Note:
[2018-11-07 09:51] VITALS: BP 142/78; PULSE 70; RESP 16; TEMP 36.4; O2SAT 98
--- NOTE | 2018-11-07 09:53 | NUR.NOTE ---
iv removed dc reviewed with pt able to verblize understanding ambulatory steady on dc Nursing Note:
== END 2018-11-07 10:05 | disposition home or self-care (01) ==
PROVIDERS: Emergency Provider Emergency Medicine; PCP Student in an Organized Health Care Education/Training Program
DX: R51 Headache (principal); E87.6 Hypokalemia; G43.809 Other migraine, not intractable, without status migrainosus; I10 Essential (primary) hypertension
CPT/HCPCS: 36415; 80048; 96361; 96374; 96375; 99284; 70450; 85025; 99285; J1200; J2765; J3480

== ENCOUNTER 2018-11-11 08:35 | Outpatient (CLI) | payer OTHER, SELFPAY ==
[2018-11-11 09:09] LABS: Anion Gap 11.1 mmol/L (3-11); BUN 24 mg/dL (7-18); CO2 26.9 mmol/L (21.0-32.0); CREATININE 0.99 mg/dL (0.55-1.02); Calcium 8.9 mg/dL (8.5-10.1); Chloride 102 mmol/L (98-107); Estimated GFR 59.87 (mL/min/1.73m2); Glucose 147 mg/dL (70-100); Magnesium 2.1 mg/dL (1.8-2.4); Potassium 3.2 mmol/L (3.5-5.1); Sodium 140 mmol/L (136-145)
== END 2018-11-11 08:55 ==
PROVIDERS: PCP Student in an Organized Health Care Education/Training Program; Visit Provider Student in an Organized Health Care Education/Training Program
DX: E87.6 Hypokalemia (principal)
CPT/HCPCS: 36415; 80048; 83735

== ENCOUNTER 2018-11-18 01:51 | Outpatient (CLI) | payer OTHER, SELFPAY ==
[2018-11-18 09:04] LABS: Anion Gap 11.6 mmol/L (3-11); BUN 23 mg/dL (7-18); CO2 28.4 mmol/L (21.0-32.0); CREATININE 1.14 mg/dL (0.55-1.02); Calcium 9.3 mg/dL (8.5-10.1); Chloride 103 mmol/L (98-107); Estimated GFR 50.87 (mL/min/1.73m2); Glucose 132 mg/dL (70-100); Potassium 3.3 mmol/L (3.5-5.1); Sodium 143 mmol/L (136-145)
== END 2018-11-18 02:11 ==
PROVIDERS: PCP Student in an Organized Health Care Education/Training Program; Visit Provider Student in an Organized Health Care Education/Training Program
DX: E87.6 Hypokalemia (principal); E86.0 Dehydration; R19.7 Diarrhea, unspecified
CPT/HCPCS: 36415; 80048; 83735

== ENCOUNTER 2018-11-21 02:13 | Outpatient (CLI) | payer OTHER, SELFPAY ==
[2018-11-21 07:56] LABS: Anion Gap 10.6 mmol/L (3-11); BUN 19 mg/dL (7-18); CO2 28.4 mmol/L (21.0-32.0); CREATININE 1.08 mg/dL (0.55-1.02); Calcium 9.2 mg/dL (8.5-10.1); Chloride 102 mmol/L (98-107); Estimated GFR 54.15 (mL/min/1.73m2); Glucose 136 mg/dL (70-100); Magnesium 2.1 mg/dL (1.8-2.4); Sodium 141 mmol/L (136-145)
== END 2018-11-21 02:33 ==
PROVIDERS: PCP Student in an Organized Health Care Education/Training Program; Visit Provider Student in an Organized Health Care Education/Training Program
DX: E86.0 Dehydration (principal); E87.6 Hypokalemia; R53.1 Weakness
CPT/HCPCS: 36415; 80048; 83735

== ENCOUNTER 2018-11-23 00:14 | Outpatient (CLI) | payer OTHER, SELFPAY ==
[2018-11-23 10:03] LABS: Anion Gap 11.1 mmol/L (3-11); BUN 20 mg/dL (7-18); CO2 26.9 mmol/L (21.0-32.0); CREATININE 1.06 mg/dL (0.55-1.02); Calcium 9.2 mg/dL (8.5-10.1); Chloride 101 mmol/L (98-107); Estimated GFR 55.33 (mL/min/1.73m2); Glucose 139 mg/dL (70-100); Magnesium 1.9 mg/dL (1.8-2.4); Sodium 139 mmol/L (136-145)
[2018-11-23 10:17] LABS: Potassium 3.1 mmol/L (3.5-5.1)
== END 2018-11-23 00:34 ==
PROVIDERS: PCP Student in an Organized Health Care Education/Training Program; Visit Provider Student in an Organized Health Care Education/Training Program
DX: E87.6 Hypokalemia (principal); E86.0 Dehydration; R53.1 Weakness
CPT/HCPCS: 36415; 80048; 83735

== ENCOUNTER 2018-11-29 06:50 | Outpatient (RCR) | payer OTHER, SELFPAY ==
[2018-10-31] MEDS: Normal Saline Flush 10 ML SYR IVP (09:25)
[2018-11-04] MEDS: POTASSIUM CHLORIDE/0.9% NACL 1,000 ML 250 MEQ IV (08:35)
[2018-11-04] MEDS: Normal Saline Flush 10 ML SYR IVP (14:12)
[2018-11-04 14:31] LABS: Anion Gap 12.2 mmol/L (3-11); BUN 19 mg/dL (7-18); CO2 20.8 mmol/L (21.0-32.0); CREATININE 0.95 mg/dL (0.55-1.02); Calcium 8.4 mg/dL (8.5-10.1); Chloride 109 mmol/L (98-107); Glucose 107 mg/dL (70-100); Magnesium 1.9 mg/dL (1.8-2.4); Potassium 3.7 mmol/L (3.5-5.1); Sodium 142 mmol/L (136-145)
[2018-11-11] MEDS: Normal Saline Flush 10 ML SYR IVP (09:15)
[2018-11-11] MEDS: POTASSIUM CHLORIDE/0.9% NACL 1,000 ML 250 MEQ IV (09:50)
[2018-11-14 07:41] LABS: Anion Gap 10.4 mmol/L (3-11); BUN 25 mg/dL (7-18); CO2 27.6 mmol/L (21.0-32.0); CREATININE 1.08 mg/dL (0.55-1.02); Chloride 102 mmol/L (98-107); Estimated GFR 54.15 (mL/min/1.73m2); Glucose 143 mg/dL (70-100); Magnesium 1.9 mg/dL (1.8-2.4); Sodium 140 mmol/L (136-145)
[2018-11-14] MEDS: POTASSIUM CHLORIDE/0.9% NACL 1,000 ML 250 MEQ IV (08:00)
[2018-11-14] MEDS: Normal Saline Flush 10 ML SYR IVP (08:00)
[2018-11-14 13:35] LABS: Potassium 3.2 mmol/L (3.5-5.1)
[2018-11-18] MEDS: Normal Saline Flush 10 ML SYR IVP (09:05)
[2018-11-18] MEDS: POTASSIUM CHLORIDE 20 MEQ/100 ML BAG 50 MEQ IVPB ×2 (09:18→11:30)
[2018-11-18 14:33] LABS: Potassium 3.3 mmol/L (3.5-5.1)
[2018-11-21] MEDS: POTASSIUM CHLORIDE 20 MEQ/100 ML BAG 50 MEQ IVPB ×2 (09:32→11:37)
[2018-11-26 08:39] LABS: Anion Gap 11.5 mmol/L (3-11); BUN 20 mg/dL (7-18); CO2 27.5 mmol/L (21.0-32.0); CREATININE 1.13 mg/dL (0.55-1.02); Calcium 9.1 mg/dL (8.5-10.1); Chloride 101 mmol/L (98-107); Estimated GFR 51.39 (mL/min/1.73m2); Glucose 134 mg/dL (70-100); Magnesium 1.8 mg/dL (1.8-2.4); Sodium 140 mmol/L (136-145)
[2018-11-26 08:44] LABS: Potassium 2.8 mmol/L (3.5-5.1)
[2018-11-26] MEDS: POTASSIUM CHLORIDE 20 MEQ/100 ML BAG 50 MEQ IVPB ×2 (08:50→11:05)
[2018-11-26] MEDS: Normal Saline Flush 10 ML SYR IVP (08:55)
[2018-11-26 14:36] LABS: Potassium 2.8 mmol/L (3.5-5.1)
[2018-11-27] MEDS: POTASSIUM CHLORIDE 20 MEQ/100 ML BAG 50 MEQ IVPB ×2 (11:35→13:32)
[2018-11-27] MEDS: Normal Saline Flush 10 ML SYR IVP (11:42)
[2018-11-28 09:33] LABS: ALT 38 U/L (14-59); AST 25 U/L (15-37); Albumin 3.6 g/dL (3.4-5.0); Alkaline Phosphatase 53 U/L (46-116); BUN 24 mg/dL (7-18); Bilirubin, Total 0.4 mg/dL (0.2-1.0); CREATININE 1.12 mg/dL (0.55-1.02); Calcium 8.9 mg/dL (8.5-10.1); Chloride 104 mmol/L (98-107); Estimated GFR 51.92 (mL/min/1.73m2); Glucose 112 mg/dL (70-100); Magnesium 1.9 mg/dL (1.8-2.4); Potassium 3.2 mmol/L (3.5-5.1); Sodium 142 mmol/L (136-145); Total Protein 7.1 g/dL (6.4-8.2)
[2018-11-29 08:20] LABS: Potassium 2.6 mmol/L (3.5-5.1)
[2018-11-29] MEDS: Normal Saline Flush 10 ML SYR IVP (08:45)
[2018-11-29] MEDS: POTASSIUM CHLORIDE 20 MEQ/100 ML BAG 50 MEQ IVPB ×2 (09:15→11:20)
[2018-11-29 14:55] LABS: Anion Gap 9.1 mmol/L (3-11); BUN 19 mg/dL (7-18); CO2 28.9 mmol/L (21.0-32.0); Calcium 9.1 mg/dL (8.5-10.1); Chloride 103 mmol/L (98-107); Estimated GFR 53.01 (mL/min/1.73m2); Glucose 124 mg/dL (70-100); Magnesium 1.9 mg/dL (1.8-2.4); Sodium 141 mmol/L (136-145)
[2018-11-29 15:03] LABS: Potassium 2.8 mmol/L (3.5-5.1)
== END 2018-11-30 23:59 | disposition home or self-care (01) ==
LOC: INF 06:50
PROVIDERS: PCP Student in an Organized Health Care Education/Training Program; Visit Provider Student in an Organized Health Care Education/Training Program
DX: E87.6 Hypokalemia (principal); E86.0 Dehydration; R73.01 Impaired fasting glucose
CPT/HCPCS: 36415; 36569; 36592; 80048; 80053; 96365; 96366; 83735; 84132; J3480

== ENCOUNTER 2018-11-29 16:12 | Inpatient (IN) | payer OTHER, SELFPAY ==
[2018-11-29 16:30] VITALS: BP 136/95; PULSE 91; RESP 19; TEMP 37.1; O2SAT 96
[2018-11-29 16:54] LABS: Abs Immature Grans 0.02 k/cumm (0.0-0.09); Absolute Basophil Count 0.03 k/cumm (0.0-0.2); Absolute Eosinophil Count 0.32 k/cumm (0.0-0.7); Absolute Lymphocyte Count 3.43 k/cumm (1.2-3.4); Absolute Monocyte Count 0.63 k/cumm (0.11-0.7); Absolute Neutrophil Count 4.65 k/cumm (1.2-6.7); Basophils % 0.3; Eosinophils % 3.5; HCT 40.5 % (36.0-46.0); Immature Grans % 0.2; Lymphocytes % 37.8; Mean Corp. HGB Concentration 34.6 g/dL (32.0-36.0); Mean Corpuscular Hemoglobin 29.4 pg (27.0-33.0); Mean Corpuscular Volume 85.1 fL (80-95); Mean Platelet Volume 9.4 fL (8.0-11.0); Monocytes % 6.9; Neutrophils % 51.3; Platelet Count 420 x1000/uL (130-400); RBC 4.76 m/cumm (4.00-5.20); RBC Distribution Width 13.1 % (11.7-14.6); White Blood Cell Count 9.08 k/cumm (4.4-10.8)
[2018-11-29 16:56] LABS: Anion Gap 11.7 mmol/L (3-11); BUN 19 mg/dL (7-18); CO2 26.3 mmol/L (21.0-32.0); CREATININE 1.07 mg/dL (0.55-1.02); Calcium 9.3 mg/dL (8.5-10.1); Chloride 102 mmol/L (98-107); Estimated GFR 54.73 (mL/min/1.73m2); Glucose 105 mg/dL (70-100); Sodium 140 mmol/L (136-145)
[2018-11-29 17:10] VITALS: PULSE 87
[2018-11-29] MEDS: Enoxaparin 40 MG/0.4 ML SYR SC (18:05)
[2018-11-29] MEDS: MAGNESIUM SULFATE 2 GM/50 ML BAG IVPB (18:06)
[2018-11-29] MEDS: POTASSIUM CHLORIDE 20 MEQ/100 ML BAG 50 MEQ IVPB ×2 (18:06→20:38)
[2018-11-29] MEDS: Potassium Chloride 20 MEQ TABCR 40 MEQ PO (20:38)
[2018-11-29] MEDS: MAGNESIUM SULFATE 1 GM/100 ML BAG IVPB (20:39)
[2018-11-29] MEDS: Normal Saline Flush 10 ML SYR IVP (20:39)
[2018-11-29 20:50] VITALS: BP 132/89; PULSE 84; RESP 19; TEMP 37.1; O2SAT 96
--- NOTE | 2018-11-29 20:55 | W.PM.HP.N ---
Date of service: 11/29/18 Time of Service: 18:30 Assessment and Plan (1) Hypokalemia: Current visit: No Status: Acute Potassium is actually better than it was on this afternoon check - it increased from 2.6 to 3.0 by the time the patient presented to the hospital, which is more or less appropriate considering the amount of supplementation she received. Will place the patient on IVF with potassium provide 2 more riders, and replete potassium as recommended by nephrology. While I feel that workup of hypokalemia-hypertension syndromes (Conn's, Polson's, etc) should be pursued as outpatient, we can try to back off of HCTZ, which is a big offender, and offer beta blockers, which the patient states helped her in the past. Will decrease HCTZ to 25 mg PO daily and introduce metoprolol 12.5 mg BID. (2) Essential hypertension: Current visit: No Status: Acute As above (3) Diarrhea: Current visit: No Status: Acute The patient has undergone an extensive workup, including 3 colonoscopies. We discussed that questran might still be a good idea even though there was no fat in her stool when checked. She is not having any diarrhea currently. PPI could also be contributing to her diarrhea. I think it would be a good idea to check her B12/folate levels as she could have malabsorption. (4) Reflux esophagitis: Current visit: No Status: Acute Continue PPI for now, but they could be the cause of diarrhea. (5) DVT prophylaxis: Current visit: Yes Status: Acute lovenox (6) Discharge planning issues: Current visit: Yes Status: Acute Full code Planned for discharge home tomorrow History of Present Illness Chief Complaint: Generalized weakness Narrative: Ms Das is a 47 year old female with PMHx of essential hypertension which seems to primarily respond to HCTZ, per patient, as well as chronic diarrhea, migraines, GERD, who is being directly admitted from [facility] for hypokalemia. Monisha states that since July her hypokalemia stopped responding to oral repletion and she has had to have twice weekly infusions of potassium in the infusion room for her low potassiums. This week, however, she has had to have 4 infusions. Her PCP, Dr Omalley, had consulted with [facility] - recommendations were made for more aggressive PO and IV potassium repletion in addition to IV magnesium. The patient is awaiting outpatient referral at [facility] in [place] for the combination of her hypertension and hypokalemia. Monisha's hypertension has been difficult to treat. She has had a workup of secondary hypertension. Her plasma metanephrines, while elevated, did not quite meet criteria for pheochromocytoma. The patient is on HCTZ 50 mg PO daily - she states that HCTZ is really what her hypertension seems to need. She also finds that she gets swelling all the way up to her neck if she does not take it. She is also on lisinopril 20 mg PO BID. In the past she has had some success with labetalol (prior to her ) - she has not been on beta blockers since. She was trialed on two different potassium sparing diuretics as outpatient and had developed a rash to both. As far as her diarrhea, she had not had any diarrhea for a week, but today had an episode where she feels she lost a liter of fluid. She feels weak - she states that even laying in bed feels like work. She has been getting short of breath just crossing the street from the parking lot of the hospital to come to the hospital. The patient would really like to be discharged home tomorrow if her potassium normalizes. Review of Systems Review of Systems 12 systems reviewed. Pertinent positives and negatives are as per HPI. Additionally, Monisha describes periodic headaches, no dizziness, but lightheadedness when she gets up, denies chest pain/shortness of breath/nausea/abdominal pain. She never gets cramping with her diarrhea. She endorses muscle spasms/twitching which improve with potassium supplementation. 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 Pets and animals: Yes Pets and animals: cat(s) and dog(s) What is your relationship status?: living with partner Panel score (0-1 are the most socially isolated patients): 1 What type of physical activity do you participate in: walking Duration: 15-30 minutes/day Frequency: 3-4 times per week Seatbelt use: always Working smoke detector in home: Yes Fire extinguisher in home: Yes Carbon monox detector in home: Yes Firearms in home: No Do you feel safe at home: Yes Do you feel safe in your relationship?: Yes Female Reproductive History Menstrual control method: permanent sterilization History History 3 Para 4 Hx # Term Pregnancies Multiple births 1 Hx # Pregnancies Ectopic pregnancies AB induced Hx Number of Living Children AB spontaneous Meds Home Medications Medication Instructions Recorded Confirmed Type multivitamin [Daily Multi-Vitamin] 1 ea PO DAILY 07/22/14 11/29/18 History Hair Prosthesis u MISCELLANEOUS DAILY #1 u 05/19/15 11/29/18 Clinic loperamide [Imodium A-D] 1 mg PO Q48H PRN 11/27/16 11/29/18 History gabapentin 300 mg capsule 300 mg PO TID #270 tab-cap 03/04/18 11/29/18 Rx prochlorperazine maleate 5 mg 5 mg PO Q8H PRN #30 tab-cap 03/04/18 11/29/18 Rx tablet pramipexole 0.25 mg tablet See Rx Instructions PO BID #270 05/13/18 11/29/18 Rx tab-cap bupropion HCl 300 mg 24 hr tablet, 300 mg PO DAILY #90 tab 05/15/18 11/29/18 Rx extended release venlafaxine 37.5 mg tablet 37.5 mg PO DAILY #60 tab 07/10/18 11/29/18 Rx lisinopril 20 mg tablet 20 mg PO BID #180 tab-cap 08/06/18 11/29/18 Rx potassium chloride 20 mEq 20 meq PO BID #90 tab 08/20/18 11/29/18 Rx tablet,extended release omeprazole 40 mg capsule,delayed 40 mg PO BID #90 tab 09/05/18 11/29/18 Rx release ondansetron HCl 4 mg tablet 4 mg PO Q8H 10/21/18 11/29/18 History hydrochlorothiazide 25 mg tablet 50 mg PO DAILY tab 10/30/18 11/29/18 History sumatriptan succinate 100 mg tablet See Rx Instructions PO .COMPLEX 11/19/18 11/29/18 Rx #12 tab topiramate 100 mg tablet 100 mg PO QHS #90 tab 11/19/18 11/29/18 Rx Allergies Allergy/AdvReac Type Severity Reaction Status Date / Time iron [From Venofer] Allergy Severe Swelling/Ed Verified 11/29/18 14:51 brandon atropine Allergy Intermediate HIVES, Verified 11/29/18 14:51 SWOLLEN spironolactone Allergy Intermediate Skin Rash Verified 11/29/18 14:51 eplerenone AdvReac Intermediate swelling; Verified 11/29/18 14:51 SOB Exam Narrative Exam Narrative: General: Very pleasant obese female, laying comfortably in bed, tired Neurological: A&OX3, no obvious focal deficits Psychiatric: appropriate speech pattern/content Skin: dry/intact; does look thomas in her face HEENT: Atraumatic, normocephalic, EOMI, dry MM, clear oropharynx, + goiter, no JVD, submandibular or cervical lymphadenopathy Cardiovascular: RRR, no m/r/g Lungs: CTAB Gastrointestinal: abdomen is soft, nontender, nondistended Extremities: trace edema BLE's, no c/c Results Imaging Additional studies: No imaging obtained Labs : 11/29/18 16:38 11/29/18 16:38 Laboratory Results - last 24 hr 11/29/18 11/29/18 16:38 16:38 WBC 9.08 RBC 4.76 Hgb 14.0 Hct 40.5 MCV 85.1 MCH 29.4 MCHC 34.6 RDW 13.1 Plt Count 420 H MPV 9.4 Immature Gran % 0.2 Neutrophils % 51.3 Lymphocytes % 37.8 Monocytes % 6.9 Eosinophils % 3.5 Basophils % 0.3 Absolute Neutrophils 4.65 Absolute Lymphocytes 3.43 H Absolute Monocytes 0.63 Absolute Eosinophils 0.32 Absolute Basophils 0.03 Sodium 140 Potassium 3.0 L Chloride 102 Carbon Dioxide 26.3 Anion Gap 11.7 H BUN 19 H Creatinine 1.07 H Estimated GFR/1.73 m2 54.73 Glucose 105 H Calcium 9.3 Last Vital Signs Temp 37.1 C 11/29/18 16:30 Pulse 87 11/29/18 17:10 Resp 19 11/29/18 16:30 BP 136/95 H 11/29/18 16:30 Pulse Ox 96 11/29/18 16:30
[2018-11-29] MEDS: Topiramate 100 MG TAB PO (22:24)
[2018-11-29] MEDS: Lisinopril 20 MG TAB PO (22:24)
[2018-11-29] MEDS: Ondansetron 4 MG TAB PO (22:24)
[2018-11-29] MEDS: POTASSIUM CHLORIDE/0.9% NACL 1,000 ML 150 MEQ IV (22:53)
[2018-11-29 23:11] LABS: Bilirubin Negative (Negative); Blood Trace-intact (Negative); Clarity Clear (Clear); Glucose Negative (Negative); Ketones Negative (Negative); Leukocyte Esterase Trace (Negative); Nitrite Negative (Negative); Specific Gravity 1.015 (1.005-1.025); Urobilinogen 0.2 EU/dL (Up TO 0.2)
[2018-11-29 23:14] VITALS: PULSE 82
[2018-11-29 23:18] LABS: Bacteria Few HPF (Negative); C & S Indicated? Yes; Casts Negative LPF (Negative); Crystals Negative HPF (Negative); Epithelial Cells Few HPF (Negative); Mucus Negative (Negative)
[2018-11-29 23:32] LABS: POTASSIUM,URINE RANDOM 24 mmol/L
[2018-11-30] VITALS (11 sets, daily range): BP systolic 103–143; BP diastolic 69–87; PULSE 62–82; RESP 16–18; TEMP 36.4–37; O2SAT 96–100
[2018-11-30] MEDS: Acetaminophen 325 MG TAB PO (03:47)
[2018-11-30] MEDS: POTASSIUM CHLORIDE/0.9% NACL 1,000 ML 150 MEQ IV ×3 (05:11→18:54)
[2018-11-30] MEDS: Normal Saline Flush 10 ML SYR IVP ×2 (07:01→16:47)
[2018-11-30] MEDS: Omeprazole 20 MG CAPCR 40 MG PO (08:04)
[2018-11-30] MEDS: hydroCHLOROthiazide 25 MG TAB PO (08:04)
[2018-11-30] MEDS: buPROPion-XL 150 MG TABCR 300 MG PO (08:04)
[2018-11-30] MEDS: Multivitamin TAB 1 TAB PO (08:04)
[2018-11-30] MEDS: Venlafaxine 37.5 MG CAPCR PO (08:05)
[2018-11-30] MEDS: Gabapentin 300 MG CAP PO ×3 (08:05→19:33)
[2018-11-30] MEDS: Lisinopril 20 MG TAB PO ×2 (08:05→19:33)
[2018-11-30] MEDS: Potassium Chloride 20 MEQ TABCR 40 MEQ PO ×3 (08:06→19:33)
[2018-11-30] MEDS: Pramipexole 0.25 MG TAB PO (09:12)
[2018-11-30] MEDS: Metoprolol 12.5 MG TAB PO ×2 (10:23→19:33)
[2018-11-30 10:26] LABS: Iron 36 ug/dL (50-175); Total Iron Binding Capacity 273 ug/dL (250-450); Transferrin Sat 13 % (15-50)
[2018-11-30 10:48] LABS: Anion Gap 10.7 mmol/L (3-11); BUN 19 mg/dL (7-18); CO2 24.3 mmol/L (21.0-32.0); CREATININE 0.98 mg/dL (0.55-1.02); Calcium 8.1 mg/dL (8.5-10.1); Chloride 107 mmol/L (98-107); Ferritin 65 ng/mL (8-388); Glucose 124 mg/dL (70-100); Magnesium 2.2 mg/dL (1.8-2.4); Potassium 3.7 mmol/L (3.5-5.1); Sodium 142 mmol/L (136-145); Vitamin B12 799 pg/mL (193-986)
[2018-11-30 10:51] LABS: Folate > 20.0 ng/mL (8.6-20.0)
[2018-11-30 11:11] LABS: TSH 4.06 uIU/mL (0.36-3.74)
[2018-11-30 11:14] LABS: Troponin I < 0.05 ng/mL (0.00-0.06)
--- NOTE | 2018-11-30 12:25 | W.PM.PROGNOT ---
Date of Service Date of service: 11/30/18 Time of Service: 12:25 Assessment and Plan (1) Hypokalemia: Start date: 11/30/18 Start time: 12:34 Current visit: No Status: Acute Better today at 3.7 however she did have an episode of sustained Vtach with a 42 beat and 18 sec run. She denies pain but does endorse palpitations. She states this has been ongoing since the spring. EKG done, serial troponins, tsh ordered. Troponin negative. [facility] [place] observation with telemetry and continue to monitor. They feel this is residual from her hypokalemia. We will continue to monitor. tsh 4.06 free t4 pending. Lopressor 12.5 given (2) Sustained VT (ventricular tachycardia): Start date: 11/30/18 Start time: 12:39 Current visit: Yes Status: Acute see above. (3) Essential hypertension: Start date: 11/30/18 Start time: 12:39 Current visit: No Status: Acute currently on Hctz 50 mg without effectiveness and in the setting of hypokalemia. Dcd at this time started on lopressor 12.5 mg and monitor (4) Diarrhea: Start date: 11/30/18 Start time: 12:44 Current visit: No Status: Acute The patient has undergone an extensive workup, including 3 colonoscopies. We discussed that questran might still be a good idea even though there was no fat in her stool when checked. She is not having any diarrhea currently. PPI could also be contributing to her diarrhea. Folate levels are high at greater than 20 (5) Reflux esophagitis: Start date: 11/30/18 Start time: 12:45 Current visit: No Status: Acute Continue PPI for now, but they could be the cause of diarrhea. (6) DVT prophylaxis: Start date: 11/30/18 Start time: 12:45 Current visit: Yes Status: Acute lovenox (7) Discharge planning issues: Start date: 11/30/18 Start time: 12:45 Current visit: Yes Status: Acute Full code Planned for discharge home tomorrow possibly with 30 day king monitor. Subjective Patient reports: other Interval history since last seen: Today had an episode of sustained 42 beat, 18.72 second run of v-tach. EKG done, troponin ordered. [facility] [place], they feel this is residual from hypokalemia. Trop less than 5 trend 24 hours troponin. TSH ordered 4.06 and T4 ordered. She denies chest pain, however she did endorse palpitations with a weak feeling and flushing feeling. She denies SOB, N/v/d Exam Narrative Exam Narrative: General: Very pleasant obese female, sitting up in bed. Neurological: A&OX3, no obvious focal deficits Psychiatric: appropriate speech pattern/content Skin: dry/intact; does look thomas in her face HEENT: Atraumatic, normocephalic, EOMI, dry MM, clear oropharynx, + goiter, no JVD, submandibular or cervical lymphadenopathy Cardiovascular: RRR, no m/r/g Lungs: CTAB Gastrointestinal: abdomen is soft, nontender, nondistended Extremities: trace edema BLE's, no c/c Objective Objective Clinical Data: Abnormal lab results 11/29/18 11/29/18 11/29/18 Range/Units 16:38 16:38 23:04 Plt Count 420 H (130-400) x1000/uL Absolute Lymphocytes 3.43 H (1.2-3.4) k/cumm Potassium 3.0 L (3.5-5.1) mmol/L Anion Gap 11.7 H (3-11) mmol/L BUN 19 H (7-18) mg/dL Creatinine 1.07 H (0.55-1.02) mg/dL Glucose 105 H (70-100) mg/dL Calcium (8.5-10.1) mg/dL Iron (50-175) ug/dL Transferrin % Sat (15-50) % Folate (8.6-20.0) ng/mL TSH (0.36-3.74) uIU/mL Urine Blood Trace-intact H (Negative) Ur Leukocyte Esterase Trace H (Negative) Urine RBC 5-10 H (0-2) 11/30/18 11/30/18 Range/Units 09:50 09:50 Plt Count (130-400) x1000/uL Absolute Lymphocytes (1.2-3.4) k/cumm Potassium (3.5-5.1) mmol/L Anion Gap (3-11) mmol/L BUN 19 H (7-18) mg/dL Creatinine (0.55-1.02) mg/dL Glucose 124 H (70-100) mg/dL Calcium 8.1 L (8.5-10.1) mg/dL Iron 36 L (50-175) ug/dL Transferrin % Sat 13 L (15-50) % Folate > 20.0 H (8.6-20.0) ng/mL TSH 4.06 H (0.36-3.74) uIU/mL Urine Blood (Negative) Ur Leukocyte Esterase (Negative) Urine RBC (0-2) Vital Signs Temperature 36.6 C 11/30/18 11:26 Temperature Source Skin 11/30/18 11:26 Pulse 66 11/30/18 11:26 Pulse Rhythm Regular 11/30/18 08:08 Respiratory Rate 18 11/30/18 11:26 Respiratory Effort 11/30/18 08:08 Respiratory Depth Normal 11/30/18 08:08 Respiratory Pattern Normal 11/30/18 08:08 Blood Pressure 133/79 11/30/18 11:26 Pulse Oximetry 98 11/30/18 11:26 Oxygen Delivery Method Room Air 11/30/18 11:26 Oxygen Flow Rate 0 11/30/18 11:26 Pain Level 0 11/30/18 11:26 Intake & Output 11/29/18 11/30/18 11/30/18 23:59 11:59 23:59 Intake Total 100 / 100 2522.5 / 2522.5 Output Total 1050 / 1050 Balance -950 / -950 2522.5 / 2522.5 Weight 111.493 kg 111.493 kg Intake: IV 100 / 100 2162.5 / 2162.5 Oral 360 / 360 Output: Urine 1050 / 1050 Other: Urine Color Yellow Urine Appearance Clear Clear Sediment Urine Odor None Voiding Methods Toilet Laboratory Results WBC 9.08 k/cumm (4.4-10.8) 11/29/18 16:38 RBC 4.76 m/cumm (4.00-5.20) 11/29/18 16:38 Hgb 14.0 g/dL (12.0-15.5) 11/29/18 16:38 Hct 40.5 % (36.0-46.0) 11/29/18 16:38 MCV 85.1 fL (80-95) 11/29/18 16:38 MCH 29.4 pg (27.0-33.0) 11/29/18 16:38 MCHC 34.6 g/dL (32.0-36.0) 11/29/18 16:38 RDW 13.1 % (11.7-14.6) 11/29/18 16:38 Plt Count 420 x1000/uL (130-400) H 11/29/18 16:38 MPV 9.4 fL (8.0-11.0) 11/29/18 16:38 Immature Gran % 0.2 11/29/18 16:38 51.3 11/29/18 16:38 37.8 11/29/18 16:38 6.9 11/29/18 16:38 3.5 11/29/18 16:38 0.3 11/29/18 16:38 Absolute Neutrophils 4.65 k/cumm (1.2-6.7) 11/29/18 16:38 Absolute Lymphocytes 3.43 k/cumm (1.2-3.4) H 11/29/18 16:38 Absolute Monocytes 0.63 k/cumm (0.11-0.7) 11/29/18 16:38 Absolute Eosinophils 0.32 k/cumm (0.0-0.7) 11/29/18 16:38 Absolute Basophils 0.03 k/cumm (0.0-0.2) 11/29/18 16:38 Sodium 142 mmol/L (136-145) 11/30/18 09:50 Potassium 3.7 mmol/L (3.5-5.1) D 11/30/18 09:50 Chloride 107 mmol/L (98-107) 11/30/18 09:50 Carbon Dioxide 24.3 mmol/L (21.0-32.0) 11/30/18 09:50 10.7 mmol/L (3-11) 11/30/18 09:50 BUN 19 mg/dL (7-18) H 11/30/18 09:50 0.98 mg/dL (0.55-1.02) 11/30/18 09:50 >= 60.00 (mL/min/1.73m2) 11/30/18 09:50 Glucose 124 mg/dL (70-100) H 11/30/18 09:50 Calcium 8.1 mg/dL (8.5-10.1) L 11/30/18 09:50 Magnesium 2.2 mg/dL (1.8-2.4) 11/30/18 09:50 Iron 36 ug/dL (50-175) L 11/30/18 09:50 TIBC 273 ug/dL (250-450) 11/30/18 09:50 Transferrin % Sat 13 % (15-50) L 11/30/18 09:50 65 ng/mL (8-388) 11/30/18 09:50 < 0.05 ng/mL (0.00-0.06) 11/30/18 09:50 Vitamin B12 799 pg/mL (193-986) 11/30/18 09:50 > 20.0 ng/mL (8.6-20.0) H 11/30/18 09:50 TSH 4.06 uIU/mL (0.36-3.74) H 11/30/18 09:50 Yellow (Yellow) 11/29/18 23:04 Clear (Clear) 11/29/18 23:04 5.0 (5-8) 11/29/18 23:04 Ur Specific [place] 1.015 (1.005-1.025) 11/29/18 23:04 Negative mg/dL (Negative) 11/29/18 23:04 Negative mg/dL (Negative) 11/29/18 23:04 Trace-intact (Negative) H 11/29/18 23:04 Negative (Negative) 11/29/18 23:04 Negative (Negative) 11/29/18 23:04 0.2 EU/dL (Up TO 0.2) 11/29/18 23:04 Ur Leukocyte Esterase Trace (Negative) H 11/29/18 23:04 5-10 (0-2) H 11/29/18 23:04 5-10 HPF (0-5) 11/29/18 23:04 Ur Epithelial Cells Few HPF (Negative) 11/29/18 23:04 Negative HPF (Negative) 11/29/18 23:04 Few HPF (Negative) 11/29/18 23:04 Negative LPF (Negative) 11/29/18 23:04 Negative (Negative) 11/29/18 23:04 Ur Culture Indicated? Yes 11/29/18 23:04 Ur Random Potassium 24 mmol/L 11/29/18 22:50 Negative mg/dL (Negative) 11/29/18 23:04
--- NOTE | 2018-11-30 16:06 | PDOC.CMIN ---
- If Service Date Differs Date of service: 11/30/18 Time of Service: 16:06 Care Management Initial Assess REASON FOR HOSPITALIZATION:: Hypokalemia PAST MEDICAL HISTORY/PAST SURGICAL HISTORY:: Alopecia, anemia, depression, GERD, kristin's, hypertension, IBS, migraine with aura, reflux, colonic polyps. Surgical hx: , endometrial ablation, tonsillectomy. PREVIOUS FUNCTIONAL STATUS/SOCIAL/FAMILY SUPPORTS:: Monisha is independent, she lives with her partner and her 4 children in [facility]. 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 CURRENT FUNCTIONAL STATUS:: Monisha is standing in the room when CM is into visit her partner is at the bedside. She appears tired, however engaged in assessment. Monisha feels that she is ready to be discharged, she does have a phototypesetting equipment monitor in place. She will follow-up with her primary care provider. ADVANCE DIRECTIVES:: None on file Has patient been provided with information about the portal?: No Did the patient sign up for the portal?: No (Already enrolled) CODE STATUS:: Full Code INSURANCE COVERAGE / FINANCIAL ISSUES:: [employer] CURRENT HOME/COMMUNITY SERVICES/EQUIPMENT:: No additional services, she receives IV infusions through the outpatient infusion room. PRIMARY CARE PHYSICIAN:: Huyen Ramon MD POTENTIAL DISCHARGE NEEDS:: Follow-up with primary care provider and resumption of outpatient infusion services as directed. PATIENT/FAMILY EDUCATION NEEDS:: Discharge education, limitations, follow-up plan of care, asked me 3 and self-management. ANTICIPATED BARRIERS TO DISCHARGE:: None identified TRANSPORTATION:: Via private car with family at time of discharge. PLAN:: Monisha is being discharged home today she will follow-up with her primary care, she does have a phototypesetting equipment monitor in place. Anticipate potential referral to cardiology. No other services indicated at this time.
[2018-11-30 18:41] LABS: Troponin I < 0.05 ng/mL (0.00-0.06)
[2018-11-30] MEDS: Enoxaparin 40 MG/0.4 ML SYR SC (18:54)
[2018-11-30] MEDS: Pramipexole 0.5 MG TAB PO (22:52)
[2018-11-30] MEDS: Topiramate 100 MG TAB PO (22:52)
[2018-11-30] MEDS: Ondansetron 4 MG TAB PO (22:53)
[2018-12-01 00:08] VITALS: BP 132/77; PULSE 69; RESP 19; TEMP 36; O2SAT 97
[2018-12-01 00:43] VITALS: PULSE 68
[2018-12-01] MEDS: POTASSIUM CHLORIDE/0.9% NACL 1,000 ML 150 MEQ IV ×2 (01:06→06:52)
[2018-12-01] MEDS: Normal Saline Flush 10 ML SYR IVP (06:28)
[2018-12-01 07:04] LABS: Abs Immature Grans 0.01 k/cumm (0.0-0.09); Absolute Basophil Count 0.04 k/cumm (0.0-0.2); Absolute Eosinophil Count 0.37 k/cumm (0.0-0.7); Absolute Lymphocyte Count 3.48 k/cumm (1.2-3.4); Absolute Monocyte Count 0.47 k/cumm (0.11-0.7); Basophils % 0.5; Eosinophils % 4.6; HGB 11.9 g/dL (12.0-15.5); Immature Grans % 0.1; Lymphocytes % 43.7; Mean Corp. HGB Concentration 33.1 g/dL (32.0-36.0); Mean Corpuscular Hemoglobin 29.2 pg (27.0-33.0); Mean Corpuscular Volume 88.5 fL (80-95); Mean Platelet Volume 9.5 fL (8.0-11.0); Monocytes % 5.9; Neutrophils % 45.2; Platelet Count 322 x1000/uL (130-400); RBC 4.07 m/cumm (4.00-5.20); RBC Distribution Width 13.2 % (11.7-14.6); White Blood Cell Count 7.97 k/cumm (4.4-10.8)
[2018-12-01 07:09] VITALS: PULSE 93
[2018-12-01 07:23] LABS: Anion Gap 8.2 mmol/L (3-11); BUN 19 mg/dL (7-18); CO2 22.8 mmol/L (21.0-32.0); Calcium 8.2 mg/dL (8.5-10.1); Chloride 112 mmol/L (98-107); Glucose 114 mg/dL (70-100); Magnesium 2.1 mg/dL (1.8-2.4); Potassium 4.5 mmol/L (3.5-5.1); Sodium 143 mmol/L (136-145)
[2018-12-01 07:25] VITALS: BP 134/89; PULSE 69; RESP 18; TEMP 36.7; O2SAT 99
[2018-12-01 07:34] LABS: FREE T4 0.86 ng/dL (0.76-1.46)
[2018-12-01] MEDS: buPROPion-XL 150 MG TABCR 300 MG PO (07:40)
[2018-12-01] MEDS: Omeprazole 20 MG CAPCR 40 MG PO (07:40)
[2018-12-01] MEDS: Metoprolol 12.5 MG TAB PO (07:40)
[2018-12-01] MEDS: Lisinopril 20 MG TAB PO (07:41)
[2018-12-01] MEDS: Potassium Chloride 20 MEQ TABCR 40 MEQ PO (07:41)
[2018-12-01] MEDS: Pramipexole 0.25 MG TAB PO (07:41)
[2018-12-01] MEDS: Multivitamin TAB 1 TAB PO (07:41)
[2018-12-01] MEDS: Gabapentin 300 MG CAP PO (07:41)
[2018-12-01] MEDS: Venlafaxine 37.5 MG CAPCR PO (07:41)
--- NOTE | 2018-12-01 10:10 | W.PM.DS.N ---
Date of service: 12/01/18 Time of Service: 10:12 DS: Diagnosis Discharge Diagnosis (1) Hypokalemia: Start date: 12/01/18 Start time: 10:13 Status: Acute Asessment and Plan: Resolved. K level 4.5. Continue BID potassium, discontinue Hctz, started on metoprolol for BP, 30 day event monitor for palpitions and CMP follow up in 3 days. Continue to eat potassium rich diet. (2) Sustained VT (ventricular tachycardia): Start date: 12/01/18 Start time: 10:14 Status: Acute Asessment and Plan: Electrophysologist at [facility] [place] looked at strip today and read yesterday's Vtach strip as SR the QRS complex's marched out though they were wide. There fore it does not look as though she had Vtach, however she does c/o palpitations and will be sent home with an event monitor for 30 days. Recommend outpatient follow up with cardiology for an echo and possible stress test. (3) Essential hypertension: Status: Acute (4) Diarrhea: Status: Acute (5) Reflux esophagitis: Status: Acute (6) DVT prophylaxis: Status: Acute (7) Discharge planning issues: Status: Acute Discharge Plan Disposition Patient Disposition: HOME Condition: Improving Discharge Details Reason For Visit: SEVERE HYPOKALEMIA, REFRACTORY TO OUTPATIENT THERA Admit Date/Time: 11/29/18 16:14 Admit Provider: Jeri Contreras Attending Provider: Jeri Contreras Primary Care Provider: TristenHuyen [place] Hospital Course Hospital Course: Ms. Das a 47 y.o Female was a direct admit to M/S with telemetry for hypokalemia, following potassium infusion on Sunday. PMHx includes chronic diarrhea, migraines, and GERD. Since July she has been receiving weekly infusions of potassium in the infusion room, due to lack of response from oral therapy. This week she required 4 infusions leading her PCP to contact [facility] nephrology which recommended more aggressive PO and IV repletion. Currently she is waiting for referral as an outpatient to [facility] in [place]. She also has HTN and was placed on a large dose of HCTZ likely contributing to her hypokalemia. During the course of her hospital stay she was repleted with IV potassium in saline at 150 an hour and TID potassium her level today is 4.5. HCTZ was discontinued and metoprolol 12.5 mg BID was started for BP control as low as Systolic one teens to one fourty eight. Her blood pressure appears to be controlled using Beta blockers. Yesterday she started having palpitation and telemetry revealed what was thought to be a sustained VTach. [facility] was called and strip was sent to them. Cardiology yesterday believed it to be residual from hypokalemia with recommendations to keep on telemetry overnight and monitor. No events were recorded after that. However a phone call to Cardiology today resulted in speaking with an mercerizing range controller that believed this was not a Vtach because it was regular, but artifact of SR. They felt she was safe to be discharged on BB and potassium. She is having palpitations for that reason and due to hypokalemia she will be discharged on a 30 day event monitor. She is feeling well, her potassium level is 4.5 and I feel she is able to be discharged home today. CMP should be checked in 3 days, with a follow up to her PCP by Sunday. Recommend outpatient echo and possible stress if palpitations continue. She will be discharged home on BB and potassium. HCTZ will be discontinued. She denies pain, shortness of breath, n/v. She does have frequent diarrhea which is not new to her and has been worked up as an outpatient. Home Meds and New Rx's Prescriptions: New potassium chloride [Klor-Con M20] 20 mEq Tablet,Er Particles/Crystals 40 meq PO BID Qty: 60 RF: 0 metoprolol tartrate 25 mg Tablet 12.5 mg PO BID Qty: 60 RF: 0 potassium chloride 20 mEq tablet,ER particles/crystals 20 meq PO BID Qty: 60 RF: 0 Continued prochlorperazine maleate 5 mg tablet 5 mg PO Q8H PRN Qty: 30 RF: 3 gabapentin 300 mg capsule 300 mg PO TID Qty: 270 RF: 3 pramipexole [Mirapex] 0.25 mg tablet See Rx Instructions PO BID Qty: 270 RF: 3 topiramate 100 mg tablet 100 mg PO QHS Qty: 90 RF: 3 sumatriptan succinate 100 mg tablet See Rx Instructions PO .COMPLEX Qty: 12 RF: 3 lisinopril 20 mg tablet 20 mg PO BID Qty: 180 RF: 3 multivitamin [Daily Multi-Vitamin] 1 EACH tablet 1 ea PO DAILY RF: 0 hair prosthesis Miscellaneous DAILY Qty: 1 RF: 1 loperamide [Imodium A-D] 1 MG/7.5 ML liquid 1 mg PO Q48H PRNRF: 0 bupropion HCl [Wellbutrin XL] 300 mg tablet extended release 24 hr 300 mg PO DAILY Qty: 90 RF: 3 venlafaxine 37.5 mg tablet 37.5 mg PO DAILY Qty: 60 RF: 6 omeprazole 40 mg capsule,delayed release(DR/EC) 40 mg PO DAILY Qty: 90 RF: 3 ondansetron HCl [Zofran] 4 mg tablet 4 mg PO Q8H RF: 0 Discontinued hydrochlorothiazide 25 mg tablet 50 mg PO DAILY RF: 0 potassium chloride 20 mEq tablet extended release 20 meq PO BID Qty: 90 RF: 2 Discharge Instructions Instructions: Palpitations (GEN), Dehydration (GEN), Hypokalemia (GEN), Chronic Diarrhea (GEN), Chronic Hypertension (GEN), Telemetry Monitoring (GEN) Additional Instructions: Stop taking HCTZ Take metoprolol twice a day Follow up with PCP by Sunday. Recheck labs in 3 days. Eat a diet rich in potassium Seek treatment immediately if you have chest pain, shortness of breath n/v. Stand Alone Forms: Nursing Discharge Form Activity:: Activity as Tolerated Equipment/Supplies:: No Equipment Needed Diet:: potassium rich diet Discharge Orders Discharge Orders: Discharge Order (Routine); Ordered 12/01/18 Ordered By: Debra Hill Exam Narrative Exam Narrative: General: Very pleasant obese female, sitting up in bed. Neurological: A&OX3, no obvious focal deficits Psychiatric: appropriate speech pattern/content Skin: dry/intact; does look thomas in her face HEENT: Atraumatic, normocephalic, EOMI, dry MM, clear oropharynx, + goiter, no JVD, submandibular or cervical lymphadenopathy Cardiovascular: RRR, no m/r/g Lungs: CTAB Gastrointestinal: abdomen is soft, nontender, nondistended Extremities: trace edema BLE's, no c/c DS: Data Vitals/I&O Vitals and I&O: Vital Signs Temperature 36.7 C 12/01/18 07:25 Temperature Source Tympanic 12/01/18 07:25 Pulse 69 12/01/18 07:25 Pulse Rhythm Regular 12/01/18 08:02 Respiratory Rate 18 12/01/18 07:25 Respiratory Effort Non-Labored 12/01/18 08:02 Respiratory Depth Normal 12/01/18 08:02 Respiratory Pattern Normal 12/01/18 08:02 Blood Pressure 134/89 12/01/18 07:25 Pulse Oximetry 99 12/01/18 07:25 Oxygen Delivery Method Room Air 12/01/18 07:25 Oxygen Flow Rate 0 12/01/18 07:25 Pain Level 0 12/01/18 07:25 Comment 11/30/18 19:49 Intake & Output 11/30/18 11/30/18 12/01/18 11:59 23:59 11:59 Intake Total 2522.5 / 4722.5 2200 / 4722.5 2545 / 2545 Output Total 1201 / 1201 300 / 300 Balance 2522.5 / 3521.5 999 / 3521.5 2245 / 2245 Weight 111.493 kg Intake: IV 2162.5 / 3162.5 1000 / 3162.5 1795 / 1795 Oral 360 / 1560 1200 / 1560 750 / 750 Output: Urine 1200 / 1200 300 / 300 Stool Other: Urine Color Yellow Yellow Urine Appearance Clear Clear Clear Urine Odor None None Comment patient uses toilet independently Voiding ad maria c in toilet. Pt denies sx. Stool Size Large Moderate Stool Characteristics Liquid Liquid Brown Brown Voiding Methods Toilet Toilet Labs on day of discharge: Labs from last 24 hours 12/01/18 12/01/18 12/01/18 06:17 06:17 06:17 WBC 7.97 RBC 4.07 Hgb 11.9 L D Hct 36.0 MCV 88.5 MCH 29.2 MCHC 33.1 RDW 13.2 Plt Count 322 MPV 9.5 Immature Gran % 0.1 Neutrophils % 45.2 Lymphocytes % 43.7 Monocytes % 5.9 Eosinophils % 4.6 Basophils % 0.5 Absolute Neutrophils 3.60 Absolute Lymphocytes 3.48 H Absolute Monocytes 0.47 Absolute Eosinophils 0.37 Absolute Basophils 0.04 Sodium Potassium Chloride Carbon Dioxide Anion Gap BUN Creatinine Estimated GFR/1.73 m2 Glucose Calcium Magnesium Iron TIBC Transferrin % Sat Ferritin Troponin I Renin Activity Pending Aldosterone Vitamin B12 Folate TSH Free T4 0.86 09/01/19 08/31/19 08/31/19 06:17 18:10 09:50 WBC RBC Hgb Hct MCV MCH MCHC RDW Plt Count MPV Immature Gran % Neutrophils % Lymphocytes % Monocytes % Eosinophils % Basophils % Absolute Neutrophils Absolute Lymphocytes Absolute Monocytes Absolute Eosinophils Absolute Basophils Sodium 143 Potassium 4.5 D Chloride 112 H Carbon Dioxide 22.8 Anion Gap 8.2 BUN 19 H Creatinine 0.90 Estimated GFR/1.73 m2 >= 60.00 Glucose 114 H Calcium 8.2 L Magnesium 2.1 Iron TIBC Transferrin % Sat Ferritin Troponin I < 0.05 Renin Activity Aldosterone Pending Vitamin B12 Folate TSH Free T4 11/30/18 11/30/18 11/30/18 09:50 09:50 09:02 WBC RBC Hgb Hct MCV MCH MCHC RDW Plt Count MPV Immature Gran % Neutrophils % Lymphocytes % Monocytes % Eosinophils % Basophils % Absolute Neutrophils Absolute Lymphocytes Absolute Monocytes Absolute Eosinophils Absolute Basophils Sodium 142 Cancelled Potassium 3.7 D Cancelled Chloride 107 Cancelled Carbon Dioxide 24.3 Cancelled Anion Gap 10.7 Cancelled BUN 19 H Cancelled Creatinine 0.98 Cancelled Estimated GFR/1.73 m2 >= 60.00 Cancelled Glucose 124 H Cancelled Calcium 8.1 L Cancelled Magnesium 2.2 Iron 36 L TIBC 273 Transferrin % Sat 13 L Ferritin 65 Troponin I < 0.05 Renin Activity Aldosterone Vitamin B12 799 Folate > 20.0 H TSH 4.06 H Free T4 11/30/18 11/30/18 05:35 05:35 WBC RBC Hgb Hct MCV MCH MCHC RDW Plt Count MPV Immature Gran % Neutrophils % Lymphocytes % Monocytes % Eosinophils % Basophils % Absolute Neutrophils Absolute Lymphocytes Absolute Monocytes Absolute Eosinophils Absolute Basophils Sodium Cancelled Potassium Cancelled Chloride Cancelled Carbon Dioxide Cancelled Anion Gap Cancelled BUN Cancelled Creatinine Cancelled Estimated GFR/1.73 m2 Cancelled Glucose Cancelled Calcium Cancelled Magnesium Cancelled Iron Cancelled TIBC Cancelled Transferrin % Sat Cancelled Ferritin Cancelled Troponin I Renin Activity Aldosterone Vitamin B12 Cancelled Folate Cancelled TSH Free T4 Preliminary micro results at discharge 11/29/18 23:04 Urine Culture - Preliminary Urine - Reflex from Ua Gram Positive Brianna,Mixed Gram Negative Ayden [facility] Medical History Alopecia Anemia Depression GERD (gastroesophageal reflux disease) Marylou's thyroiditis Hx of adenomatous colonic polyps Hypertension Irritable bowel syndrome diarrhea predominant Migraine headache with aura (Chronic) DR. VALDEZ 08/29/11 Recite Me works Vertigo and/or pain Reflux esophagitis Surgical History section x3 Colonoscopy - MAC (03/16/14) w/ bx 2015-serrated adenomatous polyp EGD - MAC 2015 Endometrial Ablation 2007 2012 H/O colonoscopy (Chronic 12/05/17) History of esophagogastroduodenoscopy (EGD) (Chronic 12/05/17) Tonsillectomy Family History Mother Pulmonary hypertension Heart disease valve replacement Father Prostate cancer Essential hypertension Parkinsons Sister Uterine cancer Brother No problems noted. 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 Pets and animals: Yes Pets and animals: cat(s) and dog(s) What is your relationship status?: living with partner Panel score (0-1 are the most socially isolated patients): 1 What type of physical activity do you participate in: walking Duration: 15-30 minutes/day Frequency: 3-4 times per week Seatbelt use: always Working smoke detector in home: Yes Fire extinguisher in home: Yes Carbon monox detector in home: Yes Firearms in home: No Do you feel safe at home: Yes Do you feel safe in your relationship?: Yes Female Reproductive History Menstrual control method: permanent sterilization History History 3 Para 4 Hx # Term Pregnancies Multiple births 1 Hx # Pregnancies Ectopic pregnancies AB induced Hx Number of Living Children AB spontaneous
[2018-12-01 10:45] VITALS: PULSE 67
--- NOTE | 2018-12-01 12:39 | PDOC.CMDIS ---
- If Service Date Differs Date of service: 12/01/18 Time of Service: 12:39 LACE Index Scoring Tool - Questions: Length of Stay (in days): 3 Acuity (Admit via E.D.?): No E.D. Visits: 4 - Answers: Total Score: 7 Risk of Readmission: Low Risk Care Management Discharge Reason for Hospitalization: Hypokalemia Discharge Plan: Monisha is being discharged home today she will follow-up with her primary care, she does have a groundwater monitoring technician in place. Anticipate potential referral to cardiology. No other services indicated at this time. Patient/Family Education Needs: Discharge education, limitations, follow-up plan of care, asked me 3 and self-management. Services Needed at Discharge: Respiratory Therapy
[2018-12-04 11:11] LABS: Renin Activity, Plasma 0.9 ng/mL/h
--- NOTE | 2018-12-20 15:55 | CER_ITS ---
DATE OF DICTATION: December 20, 2018 CARDIAC PREVENTICE MONITOR REPORT INDICATION: Ventricular tachycardia. ENROLLMENT PERIOD: December 01, 2018 to December 18, 2018 Baseline sinus rhythm with a heart rate of 64 bpm. 0 critical, 0 serious and 6 stable events. All stable events corresponded to sinus rhythm. Symptoms such as shortness of breath, flutter or skipped beat, corresponded to sinus rhythm. No atrial fibrillation detected. No ventricular tachycardia or non-sustained VT detected. No significant pauses or bradyarrhythmias.
== END 2018-12-01 11:55 | disposition home or self-care (01) | DRG 641 ==
PROVIDERS: Nurse Practitioner Family; Admitting Provider Internal Medicine; PCP Student in an Organized Health Care Education/Training Program; Visit Provider Internal Medicine
DX: E87.6 Hypokalemia (principal); I47.2 Ventricular tachycardia; I10 Essential (primary) hypertension; K21.0 Gastro-esophageal reflux disease with esophagitis; K52.9 Noninfective gastroenteritis and colitis, unspecified; Z45.2 Encounter for adjustment and management of vascular access device
CPT/HCPCS: 36415; 80048; 93270; 99223; 99233; 99239; J1650; 81003; 81015; 82088; 82607; 82728; 82746; 83540; 83550; 83735; 84133; 84244; 84439; 84443; 84484; 85025; 87086; 93005; 93010; J3475; J3480; J3490; J8597

== ENCOUNTER 2018-12-10 17:06 | Outpatient (REF) | payer OTHER, SELFPAY ==
--- NOTE | 2018-12-10 14:40 | PAPFT_PTH ---
PATIENT: Monisha Rios LOC: [facility] U#:[id number] AGE/SX: 47/F ROOM: RE12/10/[address]: Ankita Case : [id number] BED: DIS: 12/10/2018 SPEC #: [id number] RECD: 12/10/18 17:34 STATUS: HUNTER REDebra #: [id number] KAYLA: 12/10/18 14:[address]: Ankita Case DEPT: [facility] Cytology RECD BY: Corinna Roberson ENTERED: 12/10/18 17:34 SP TYPE: PAPFT OTHR DR: Huyen Ramon DO Tissues: 1 - CX/ENDOCX FOR PAP SMEARS Procedures: PAP THIN PREP/UVM Screening HPV DNA PROBE Comments: [id number]
== END 2018-12-10 17:26 ==
LOC: LBN 17:06
PROVIDERS: PCP Student in an Organized Health Care Education/Training Program; Visit Provider Obstetrics & Gynecology Gynecology
DX: Z12.4 Encounter for screening for malignant neoplasm of cervix (principal); Z11.51 Encounter for screening for human papillomavirus (HPV)
CPT/HCPCS: 88142; 87624

== ENCOUNTER 2018-12-14 10:47 | Emergency (ER) | payer OTHER, SELFPAY ==
[2018-12-14 10:53] VITALS: BP 157/111; PULSE 67; RESP 18; TEMP 36.4; O2SAT 100
--- NOTE | 2018-12-14 11:13 | DI.RAD_ITS ---
SYMPTOM/DIAGNOSIS: PAIN, SWELLING LEFT HUMERUS: Degenerative changes involving the glenohumeral joint and acromioclavicular joint are noted. There are old avulsion fractures of the acromion identified. There is no evidence of an acute fracture. There is no evidence of a dislocation. SUMMARY: Degenerative changes involving the glenohumeral joint and AC joint are identified. Old avulsion fractures of the acromion are noted. There is no evidence of an acute fracture or dislocation.
[2018-12-14] MEDS: Cephalexin 500 MG CAP PO (11:17)
--- NOTE | 2018-12-14 11:33 | ED.GENADUL_ITS ---
Discharge Plan Disposition Patient Disposition: HOME Discharge Details Chief Complaint: Cellulitis Clinical Impression: Cellulitis of arm, left Primary Care Provider: Huyen Ramon ED Provider: Saad Recinos Home Meds and New Rx's Prescriptions: New cephalexin [Keflex] 500 mg capsule 500 mg PO QID Qty: 27 RF: 0 Continued prochlorperazine maleate 5 mg tablet 5 mg PO Q8H PRN Qty: 30 RF: 3 gabapentin 300 mg capsule 300 mg PO TID Qty: 270 RF: 3 pramipexole [Mirapex] 0.25 mg tablet See Rx Instructions PO BID Qty: 270 RF: 3 sumatriptan succinate 100 mg tablet See Rx Instructions PO .COMPLEX Qty: 12 RF: 3 multivitamin [Daily Multi-Vitamin] 1 EACH tablet 1 ea PO DAILY RF: 0 hair prosthesis Miscellaneous DAILY Qty: 1 RF: 1 loperamide [Imodium A-D] 1 MG/7.5 ML liquid 1 mg PO Q48H PRNRF: 0 bupropion HCl [Wellbutrin XL] 300 mg tablet extended release 24 hr 300 mg PO DAILY Qty: 90 RF: 3 venlafaxine 37.5 mg tablet 37.5 mg PO DAILY Qty: 60 RF: 6 omeprazole 40 mg capsule,delayed release(DR/EC) 40 mg PO DAILY Qty: 90 RF: 3 ondansetron HCl [Zofran] 4 mg tablet 4 mg PO Q8H RF: 0 metoprolol tartrate 25 mg Tablet 12.5 mg PO BID Qty: 60 RF: 0 potassium chloride 20 mEq tablet,ER particles/crystals 20 meq PO BID Qty: 60 RF: 0 metoprolol tartrate 37.5 mg tablet 35 mg PO Q12H RF: 0 Discharge Instructions Instructions: Cellulitis (ED) Additional Instructions: Please take the full course of antibiotic as prescribed. If swelling worsens over the next 2 days, you should have an ultrasound performed early next week. Please contact your primary care physician to arrange follow-up. Return to the ER for any worsening or new concerning symptoms. Referrals: Huyen Ramon DO [Primary Care Provider] - Medical Decision Making 47-year-old female here with mild swelling, warmth, and discomfort at prior midline catheter skin insertion site. Catheter was removed yesterday. X-ray of the left upper arm was reviewed and interpreted by me: No retained foreign body. Concern for possible mild early cellulitis vs persistent irritation from catheter. Plan to treat with Keflex. Last tetanus received was May 2008. We will give tetanus booster. Usual and customary discharge instructions were provided. HPI General Mode of arrival: ambulatory . Date/Time Provider Initiated Documentation: 12/14/18 10:54 . Limitations to Documentation: no limitations . Information obtained by: patient . HPI Narrative: 47-year-old female, recently being treated with IV infusions of potassium for hypokalemia, head midline catheter for approximately 3 weeks and noted to have some discomfort at catheter insertion site. The catheter was removed by infusion nurse yesterday. Since yesterday insertion site has had slightly worsening swelling and mild warmth and discomfort. She is concerned for infection. Symptoms are mild to moderate. No modifiers. No associated fever. Related Data Home Medications Medication Instructions Recorded Confirmed multivitamin [Daily Multi-Vitamin] 1 ea PO DAILY 07/22/14 12/14/18 loperamide [Imodium A-D] 1 mg PO Q48H PRN 11/27/16 12/14/18 gabapentin 300 mg capsule 300 mg PO TID #270 tab-cap 03/04/18 12/14/18 prochlorperazine maleate 5 mg 5 mg PO Q8H PRN #30 tab-cap 03/04/18 12/14/18 tablet pramipexole 0.25 mg tablet See Rx Instructions PO BID #270 05/13/18 12/14/18 tab-cap bupropion HCl 300 mg 24 hr tablet, 300 mg PO DAILY #90 tab 05/15/18 12/14/18 extended release venlafaxine 37.5 mg tablet 37.5 mg PO DAILY #60 tab 07/10/18 12/14/18 omeprazole 40 mg capsule,delayed 40 mg PO DAILY #90 tab 09/05/18 12/14/18 release ondansetron HCl 4 mg tablet 4 mg PO Q8H 10/21/18 12/14/18 sumatriptan succinate 100 mg tablet See Rx Instructions PO .COMPLEX 11/19/18 12/14/18 #12 tab metoprolol tartrate 12.5 mg PO BID #60 tab 12/01/18 12/05/18 potassium chloride 20 meq PO BID #60 tab 12/01/18 12/14/18 cephalexin [Keflex] 500 mg PO QID #27 cap 12/14/18 metoprolol tartrate 35 mg PO Q12H 12/14/18 12/14/18 Previous Rx's Medication Instructions Recorded gabapentin 300 mg capsule 300 mg PO TID #270 tab-cap 03/04/18 prochlorperazine maleate 5 mg 5 mg PO Q8H PRN #30 tab-cap 03/04/18 tablet pramipexole 0.25 mg tablet See Rx Instructions PO BID #270 05/13/18 tab-cap bupropion HCl 300 mg 24 hr tablet, 300 mg PO DAILY #90 tab 05/15/18 extended release venlafaxine 37.5 mg tablet 37.5 mg PO DAILY #60 tab 07/10/18 omeprazole 40 mg capsule,delayed 40 mg PO DAILY #90 tab 09/05/18 release sumatriptan succinate 100 mg tablet See Rx Instructions PO .COMPLEX 11/19/18 #12 tab metoprolol tartrate 12.5 mg PO BID #60 tab 12/01/18 potassium chloride 20 meq PO BID #60 tab 12/01/18 cephalexin [Keflex] 500 mg PO QID #27 cap 12/14/18 Allergies Allergy/AdvReac Type Severity Reaction Status Date / Time iron [From Venofer] Allergy Severe Swelling/Ed Verified 12/14/18 10:57 brandon atropine Allergy Intermediate HIVES, Verified 12/14/18 10:57 SWOLLEN spironolactone Allergy Intermediate Skin Rash Verified 12/14/18 10:57 eplerenone AdvReac Intermediate swelling; Verified 12/14/18 10:57 SOB General Stated Complaint: Cellulitis JOBY: 3 Review of Systems Review of Systems ROS Unobtainable: All systems reviewed & are unremarkable except as noted in HPI and below Constitutional Constitutional: Denies fever(s) Cardiovascular Cardiovascular: Reports palpitations (Intermittent and improved now on metoprolol) Integumentary/Breasts Skin/Breast: Denies rash Endocrine Endocrine: Reports palpitations (Intermittent and improved now on metoprolol) [facility] Medical History Abnormal serum creatinine level (Acute 07/2018) Serious Creatinine elevation, with resolution between episodes of dehydration .. Alopecia Anemia Dehydration (Inactive ~08/21/18) Several episodes now .. She can almost gauge her K levels based on mm weakness. [ ] BMP [ ] IVF-KCl Bolus-K have helped with hypokalemia in between bouts of diarrhea/dehydration when IVF not needed. 09/2018, ik Depression GERD (gastroesophageal reflux disease) Marylou's thyroiditis Hx of adenomatous colonic polyps Hypertension Irritable bowel syndrome diarrhea predominant Migraine headache with aura (Chronic) DR. VALDEZ 08/29/11 [employer] Vertigo and/or pain Rectal hemorrhage (Inactive 03/02/15) Reflux esophagitis Sustained VT (ventricular tachycardia) (Acute) during hypokalemia episode Surgical History section x3 Colonoscopy - MAC (03/16/14) w/ bx 2015-serrated adenomatous polyp EGD - MAC 2015 Endometrial Ablation 2007 2012 H/O colonoscopy (Chronic 12/05/17) History of esophagogastroduodenoscopy (EGD) (Chronic 12/05/17) Tonsillectomy Family History Mother Pulmonary hypertension Heart disease valve replacement Father Prostate cancer Essential hypertension Parkinsons Sister Uterine cancer Brother No problems noted. 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 Pets and animals: Yes Pets and animals: cat(s) and dog(s) What is your relationship status?: living with partner Panel score (0-1 are the most socially isolated patients): 1 What type of physical activity do you participate in: walking Duration: 15-30 minutes/day Frequency: 3-4 times per week Seatbelt use: always Working smoke detector in home: Yes Fire extinguisher in home: Yes Carbon monox detector in home: Yes Firearms in home: No Do you feel safe at home: Yes Do you feel safe in your relationship?: Yes Female Reproductive History Menstrual control method: permanent sterilization History History 3 Para 4 Hx # Term Pregnancies Multiple births 1 Hx # Pregnancies Ectopic pregnancies AB induced Hx Number of Living Children AB spontaneous Exam Const General: cooperative and healthy appearing Orientation: alert and awake Cardio Rate: regular rate Rhythm: regular rhythm Pulses: radial pulses present on the left 2+ Skin General skin exam: no fluctuance and no induration Rashes: rashes noted (Mild irritation from catheter site dressing) Other: mild swelling and warmth surrounding catheter insertion site LUE Extrem Left upper extremity: shoulder/upper arm (see skin above, otherwise nl) Course Vital Signs Vital signs: Vital Signs Temperature 36.4 C L 12/14/18 10:53 Pulse 67 12/14/18 10:53 Respiratory Rate 18 12/14/18 10:53 Blood Pressure 157/111 H 12/14/18 10:53 Pulse Oximetry 100 12/14/18 10:53 Temperature 36.4 C L 12/14/18 10:53 Temperature Source Skin 12/14/18 10:53 Pulse 67 12/14/18 10:53 Respiratory Rate 18 12/14/18 10:53 Respiratory Effort Non-Labored 12/14/18 11:02 Blood Pressure 157/111 H 12/14/18 10:53 Pulse Oximetry 100 12/14/18 10:53 Oxygen Delivery Method Room Air 12/14/18 10:53 Oxygen Flow Rate 0 12/14/18 10:53 Pain Level 3 12/14/18 10:53
--- NOTE | 2018-12-14 11:58 | DI.VRAD_ITS ---
EXAM: XR Left Humerus EXAM DATE/TIME: 12/14/2018 11:44 AM CLINICAL HISTORY: 47 years old, female; Pain; Upper arm; Left; Prior surgery; Surgery date: Post-operative (0-2 days); Surgery type: Midline removed yesterday, skin red and irritated, arrow placed on images to indicate location of midline TECHNIQUE: Imaging protocol: XR Left humerus Views: 2 or more views. COMPARISON: No relevant prior studies available. FINDINGS: Bones/joints: Degenerative changes in the glenohumeral joint and acromioclavicular joint. Old avulsion fractures off of the acromion. There is no evidence of acute fracture.There is no evidence of malalignment or dislocation. Soft tissues: Normal. IMPRESSION: 1. Degenerative changes in the glenohumeral joint and acromioclavicular joint. Old avulsion fractures off of the acromion. 2. There is no evidence of acute fracture.There is no evidence of malalignment or dislocation. Dictated and Authenticated by: Jeimy Ellison MD. Ordering:LONDON Nash MD
== END 2018-12-14 12:13 | disposition home or self-care (01) ==
PROVIDERS: Emergency Provider Student in an Organized Health Care Education/Training Program; PCP Student in an Organized Health Care Education/Training Program
DX: T82.7XXA Infection and inflammatory reaction due to other cardiac and vascular devices, implants and grafts, initial encounter (principal); L03.114 Cellulitis of left upper limb; I10 Essential (primary) hypertension
CPT/HCPCS: 90471; 99284; 73060

== ENCOUNTER 2018-12-24 11:14 | Outpatient (CLI) | payer OTHER, SELFPAY ==
[2018-12-24 12:04] LABS: Anion Gap 7.1 mmol/L (3-11); BUN 17 mg/dL (7-18); CO2 28.9 mmol/L (21.0-32.0); Calcium 9.1 mg/dL (8.5-10.1); Chloride 103 mmol/L (98-107); Glucose 107 mg/dL (70-100); Magnesium 1.9 mg/dL (1.8-2.4); Potassium 3.7 mmol/L (3.5-5.1); Sodium 139 mmol/L (136-145)
== END 2018-12-24 11:34 ==
PROVIDERS: PCP Student in an Organized Health Care Education/Training Program; Visit Provider Student in an Organized Health Care Education/Training Program
DX: E87.6 Hypokalemia (principal); R53.1 Weakness; R53.81 Other malaise; I10 Essential (primary) hypertension
CPT/HCPCS: 36415; 80048; 83735

== ENCOUNTER 2018-12-27 09:00 | Outpatient (RCR) | payer OTHER, SELFPAY ==
[2018-12-03 08:18] LABS: Anion Gap 9.1 mmol/L (3-11); BUN 22 mg/dL (7-18); CO2 24.9 mmol/L (21.0-32.0); CREATININE 1.02 mg/dL (0.55-1.02); Calcium 8.5 mg/dL (8.5-10.1); Chloride 106 mmol/L (98-107); Estimated GFR 57.84 (mL/min/1.73m2); Glucose 124 mg/dL (70-100); Magnesium 1.9 mg/dL (1.8-2.4); Potassium 3.7 mmol/L (3.5-5.1); Sodium 140 mmol/L (136-145)
[2018-12-03] MEDS: POTASSIUM CHLORIDE 20 MEQ/100 ML BAG 50 MEQ IVPB ×2 (09:15→11:19)
[2018-12-03] MEDS: Normal Saline Flush 10 ML SYR IVP (09:16)
[2018-12-03 10:02] VITALS: BP 139/93; PULSE 57; RESP 18; TEMP 36.4; O2SAT 99
[2018-12-04 09:26] LABS: BUN 16 mg/dL (7-18); CREATININE 1.09 mg/dL (0.55-1.02); Calcium 8.9 mg/dL (8.5-10.1); Chloride 104 mmol/L (98-107); Estimated GFR 53.57 (mL/min/1.73m2); Glucose 117 mg/dL (70-100); Magnesium 1.9 mg/dL (1.8-2.4); Potassium 3.6 mmol/L (3.5-5.1); Sodium 133 mmol/L (136-145)
[2018-12-04] MEDS: POTASSIUM CHLORIDE 20 MEQ/100 ML BAG 50 MEQ IVPB ×2 (10:30→12:35)
[2018-12-04] MEDS: Normal Saline Flush 10 ML SYR IVP (10:31)
[2018-12-05] MEDS: Normal Saline Flush 10 ML SYR IVP (10:15)
[2018-12-05 11:07] LABS: Anion Gap 9.7 mmol/L (3-11); BUN 20 mg/dL (7-18); CO2 24.3 mmol/L (21.0-32.0); CREATININE 1.05 mg/dL (0.55-1.02); Calcium 8.8 mg/dL (8.5-10.1); Chloride 104 mmol/L (98-107); Estimated GFR 55.94 (mL/min/1.73m2); Glucose 117 mg/dL (70-100); Magnesium 1.9 mg/dL (1.8-2.4); Potassium 3.5 mmol/L (3.5-5.1); Sodium 138 mmol/L (136-145)
[2018-12-06] MEDS: POTASSIUM CHLORIDE 20 MEQ/100 ML BAG 50 MEQ IVPB ×2 (09:26→11:14)
[2018-12-06] MEDS: Normal Saline Flush 10 ML SYR IVP (09:26)
[2018-12-06 09:54] LABS: Anion Gap 8.5 mmol/L (3-11); BUN 19 mg/dL (7-18); CO2 29.5 mmol/L (21.0-32.0); CREATININE 1.11 mg/dL (0.55-1.02); Calcium 9.4 mg/dL (8.5-10.1); Chloride 103 mmol/L (98-107); Estimated GFR 52.46 (mL/min/1.73m2); Glucose 104 mg/dL (70-100); Magnesium 1.9 mg/dL (1.8-2.4); Potassium 3.4 mmol/L (3.5-5.1); Sodium 141 mmol/L (136-145)
[2018-12-06 10:01] VITALS: BP 122/79
[2018-12-09 09:39] LABS: Anion Gap 9.6 mmol/L (3-11); BUN 25 mg/dL (7-18); CO2 25.4 mmol/L (21.0-32.0); CREATININE 1.03 mg/dL (0.55-1.02); Calcium 8.5 mg/dL (8.5-10.1); Chloride 106 mmol/L (98-107); Estimated GFR 57.19 (mL/min/1.73m2); Glucose 134 mg/dL (70-100); Magnesium 1.9 mg/dL (1.8-2.4); Potassium 3.6 mmol/L (3.5-5.1); Sodium 141 mmol/L (136-145)
[2018-12-09] MEDS: POTASSIUM CHLORIDE 20 MEQ/100 ML BAG 50 MEQ IVPB ×2 (10:12→12:18)
[2018-12-09] MEDS: Normal Saline Flush 10 ML SYR IVP (10:14)
[2018-12-09 10:23] VITALS: BP 145/93
[2018-12-09 16:15] LABS: Osmolality Serum 298 mos/kg (275-295)
[2018-12-13] MEDS: Bacitracin 1 PACKET (09:30)
[2018-12-13 10:03] LABS: Anion Gap 8.9 mmol/L (3-11); BUN 21 mg/dL (7-18); CO2 28.1 mmol/L (21.0-32.0); CREATININE 0.97 mg/dL (0.55-1.02); Calcium 8.9 mg/dL (8.5-10.1); Chloride 105 mmol/L (98-107); Glucose 118 mg/dL (70-100); Magnesium 1.9 mg/dL (1.8-2.4); Potassium 3.9 mmol/L (3.5-5.1); Sodium 142 mmol/L (136-145)
[2018-12-17 09:52] LABS: Anion Gap 12.3 mmol/L (3-11); BUN 18 mg/dL (7-18); CO2 27.7 mmol/L (21.0-32.0); CREATININE 0.96 mg/dL (0.55-1.02); Chloride 102 mmol/L (98-107); Glucose 117 mg/dL (70-100); Potassium 3.9 mmol/L (3.5-5.1); Sodium 142 mmol/L (136-145)
[2018-12-27 11:46] VITALS: BP 145/93
[2018-12-27 11:55] LABS: Anion Gap 6.6 mmol/L (3-11); BUN 16 mg/dL (7-18); CO2 29.4 mmol/L (21.0-32.0); CREATININE 0.81 mg/dL (0.55-1.02); Calcium 9.1 mg/dL (8.5-10.1); Chloride 103 mmol/L (98-107); Glucose 109 mg/dL (70-100); Magnesium 1.8 mg/dL (1.8-2.4); Potassium 3.9 mmol/L (3.5-5.1); Sodium 139 mmol/L (136-145)
[2019-01-03 11:51] LABS: Anion Gap 8.7 mmol/L (3-11); BUN 16 mg/dL (7-18); CO2 28.3 mmol/L (21.0-32.0); CREATININE 0.83 mg/dL (0.55-1.02); Calcium 8.8 mg/dL (8.5-10.1); Chloride 103 mmol/L (98-107); Glucose 97 mg/dL (70-100); Magnesium 1.7 mg/dL (1.8-2.4); Potassium 3.9 mmol/L (3.5-5.1); Sodium 140 mmol/L (136-145)
== END 2018-12-30 23:59 | disposition home or self-care (01) ==
LOC: INF 09:00
PROVIDERS: PCP Student in an Organized Health Care Education/Training Program; Visit Provider Student in an Organized Health Care Education/Training Program
DX: E87.6 Hypokalemia (principal)
CPT/HCPCS: 36415; 36592; 80048; 96365; 96366; 83735; 83930; J3480

== ENCOUNTER 2019-01-03 11:27 | Outpatient (CLI) | payer OTHER, SELFPAY | END 2019-01-03 11:47 | PROVIDERS: PCP Student in an Organized Health Care Education/Training Program; Visit Provider Student in an Organized Health Care Education/Training Program | DX: E87.6 Hypokalemia (principal); E86.0 Dehydration; R53.81 Other malaise | CPT/HCPCS: 36415; 80048; 83735 ==

== ENCOUNTER 2019-01-08 01:27 | Outpatient (CLI) | payer OTHER, SELFPAY ==
--- NOTE | 2019-01-08 12:19 | DI.MAMMO_ITS ---
EXAM: MAMMO SCREENING CLINICAL HISTORY: screening, Z12.39. TECHNIQUE: Mammograms were interpreted according to the usual protocol including computer analysis w [employer] CAD system, tomosynthesis and C-view imaging. COMPARISON: 2010 THROUGH 2016 FINDINGS: The breasts are heterogeneously dense, which may obscure small masses. There are no dominant masses o r microcalcifications. There has been no significant change in comparison with the previous examinat ions. IMPRESSION: Routine yearly screening examinations are recommended. BI-RADS Cat 1 - Negative Breast Density - Category C - Heterogeneously dense
== END 2019-01-08 01:47 ==
PROVIDERS: PCP Student in an Organized Health Care Education/Training Program; Visit Provider Obstetrics & Gynecology Gynecology
DX: Z12.31 Encounter for screening mammogram for malignant neoplasm of breast (principal)
CPT/HCPCS: 77063; 77067

== ENCOUNTER 2019-01-10 13:07 | Outpatient (CLI) | payer OTHER, SELFPAY ==
[2019-01-10 13:39] LABS: Anion Gap 10.4 mmol/L (3-11); BUN 20 mg/dL (7-18); CO2 26.6 mmol/L (21.0-32.0); CREATININE 1.06 mg/dL (0.55-1.02); Calcium 8.8 mg/dL (8.5-10.1); Chloride 103 mmol/L (98-107); Glucose 144 mg/dL (70-100); Magnesium 1.6 mg/dL (1.8-2.4); Potassium 3.3 mmol/L (3.5-5.1); Sodium 140 mmol/L (136-145)
== END 2019-01-10 13:27 ==
PROVIDERS: PCP Student in an Organized Health Care Education/Training Program; Visit Provider Student in an Organized Health Care Education/Training Program
DX: E87.6 Hypokalemia (principal); E86.0 Dehydration; R53.81 Other malaise; R53.1 Weakness
CPT/HCPCS: 36415; 80048; 83735

== ENCOUNTER 2019-01-13 08:36 | Outpatient (CLI) | payer OTHER, SELFPAY ==
[2019-01-13 09:44] LABS: Anion Gap 10.4 mmol/L (3-11); BUN 16 mg/dL (7-18); CO2 25.6 mmol/L (21.0-32.0); CREATININE 0.84 mg/dL (0.55-1.02); Calcium 8.7 mg/dL (8.5-10.1); Chloride 104 mmol/L (98-107); Glucose 118 mg/dL (70-100); Magnesium 1.8 mg/dL (1.8-2.4); Potassium 3.7 mmol/L (3.5-5.1); Sodium 140 mmol/L (136-145)
== END 2019-01-13 08:56 ==
PROVIDERS: PCP Student in an Organized Health Care Education/Training Program; Visit Provider Student in an Organized Health Care Education/Training Program
DX: E87.6 Hypokalemia (principal); E86.0 Dehydration; R53.83 Other fatigue
CPT/HCPCS: 36415; 80048; 83735

== ENCOUNTER 2019-01-14 09:24 | Emergency (ER) | payer OTHER, SELFPAY ==
[2019-01-14] VITALS (43 sets, daily range): BP systolic 107–147; BP diastolic 81–97; PULSE 64–79; RESP 9–22; TEMP 37.1; O2SAT 91–98
--- NOTE | 2019-01-14 09:33 | DI.RAD_ITS ---
EXAM: XR PORTABLE CHEST AP CLINICAL HISTORY: SOB, fluid overload. TECHNIQUE: 2D digital imaging was performed. COMPARISON: XR CHEST 2V PA LATERAL from 07/30/2018 FINDINGS: LUNGS: Clear. No pleural abnormality seen. HEART: Normal. MEDIASTINUM: Normal. OTHER FINDINGS: None. IMPRESSION: No acute pulmonary findings.
--- NOTE | 2019-01-14 09:34 | W.ED.GENAD ---
Discharge Plan Disposition Patient Disposition: HOME Condition: Improving Discharge Details Chief Complaint: SOB Clinical Impression: Fluid overload Primary Care Provider: Huyen Ramon ED Provider: Aleksandr Whitlock Home Meds and New Rx's Prescriptions: Continued prochlorperazine maleate 5 mg tablet 5 mg PO Q8H PRN Qty: 30 RF: 3 gabapentin 300 mg capsule 300 mg PO TID Qty: 270 RF: 3 pramipexole [Mirapex] 0.25 mg tablet See Rx Instructions PO BID Qty: 270 RF: 3 sumatriptan succinate 100 mg tablet See Rx Instructions PO .COMPLEX Qty: 12 RF: 3 venlafaxine 25 mg tablet 25 mg PO DAILY Qty: 30 RF: 0 metoprolol tartrate 37.5 mg tablet 37.5 mg PO Q12H RF: 0 amlodipine 5 mg tablet 10 mg PO DAILY Qty: 60 RF: 1 multivitamin [Daily Multi-Vitamin] 1 EACH tablet 1 ea PO DAILY RF: 0 hair prosthesis Miscellaneous DAILY Qty: 1 RF: 1 loperamide [Imodium A-D] 1 MG/7.5 ML liquid 1 mg PO Q48H PRNRF: 0 bupropion HCl [Wellbutrin XL] 300 mg tablet extended release 24 hr 300 mg PO DAILY Qty: 90 RF: 3 omeprazole 40 mg capsule,delayed release(DR/EC) 40 mg PO DAILY Qty: 90 RF: 3 ondansetron HCl [Zofran] 4 mg tablet 4 mg PO Q8H RF: 0 (DME) Compression Hose Qty: 2 RF: 0 metoprolol tartrate 25 mg Tablet 12.5 mg PO BID Qty: 60 RF: 0 potassium chloride 20 mEq tablet,ER particles/crystals 20 meq PO BID Qty: 60 RF: 0 Discharge Instructions Additional Instructions: Continue your regular medications. Please follow-up with Dr. Matson in clinic tomorrow as planned. Home to rest today. Return for any acute concerns in the interim. Medical Decision Making 48-year-old female presents from home via EMS after 2 weeks of progressive shortness of breath, 18 pound weight gain, 30 minutes of severe shortness of breath at home that prompted 911 call. IV was placed by EMS, topical left wrist and placed on her chest and she was placed on BiPAP with settings of 12/5 at 30% on arrival. She improved with these interventions. Nitro glycerin paste was removed upon arrival. Her most recent past medical history is notable for cessation of her diuretic due to persistent hypokalemia. She arrives improved, able to speak with BiPAP on. Differential diagnosis is broad but does include fluid overload/pulmonary edema, pulmonary embolism, acute coronary syndrome. Patient was on a cardiac catheterization technologist, screening laboratories obtained, referred for chest x-ray, EKG, diuresis initiated with 40 mg of IV Lasix. Patient had 750 cc urine output. Diagnostic studies: Unremarkable CBC. Troponin negative, BNP is not elevated at 254. Chest x-ray without acute finding. CT scan obtained with no evidence of PE or acute thoracic findings. Patient observed and repeat troponin obtained and also negative.. She had a total urine output of approximately 1500 cc. She improved, weaned from all supplemental oxygen, with resting comfortably on room air. Her work-up was strikingly reassuring. Her 18 pound weight gain and intolerance of long-term diuretics do point to fluid overload today in my opinion that is now resolving with above treatment. Patient scheduled to see her primary care physician Dr. Ramon tomorrow in clinic. She was unavailable today but the panic is aware patient was seen in the ED. I question whether she will need a an ongoing low-dose of diuretic, but she has had a long-term relationship with both primary care as well as consultants at [facility] and [facility] in [place] and I feel the decision of additional oral diuretic is best deferred to the outpatient setting. Patient improved and appropriate for discharge at this time. ECG Data Attestation: I personally reviewed and interpreted this ECG (s) as follows: Interpretation: Normal sinus rhythm with a rate of 75, the QRS is narrow, there is no ST segment elevation, QTc is 449 HPI General Mode of arrival: EMS. Date/Time Provider Initiated Documentation: 01/14/19 09:55. Limitations to Documentation: no limitations. Information obtained by: patient and EMS. History of Present Illness 48 year old F presents to the emergency department with the chief complaint of Shortness of breath worsening this morning over 30 minutes time, described as severe, Quality is described as constant, and is localized to the chest. Patient reports no radiation. Patient started experiencing this minute(s) and it has been other (Improving). other things that improve symptom(s), (Positive airway pressure) Movement worsens symptoms . Patient notes denies chest pain and syncope. Patient did receive the following treatments prior to arrival, other (1/2 inch nitroglycerin paste, noninvasive positive pressure ventilation) Related Data Home Medications Medication Instructions Recorded Confirmed multivitamin [Daily Multi-Vitamin] 1 ea PO DAILY 07/22/14 01/14/19 loperamide [Imodium A-D] 1 mg PO Q48H PRN 11/27/16 01/14/19 gabapentin 300 mg capsule 300 mg PO TID #270 tab-cap 03/04/18 01/14/19 prochlorperazine maleate 5 mg 5 mg PO Q8H PRN #30 tab-cap 03/04/18 01/14/19 tablet pramipexole 0.25 mg tablet See Rx Instructions PO BID #270 05/13/18 01/14/19 tab-cap bupropion HCl 300 mg 24 hr tablet, 300 mg PO DAILY #90 tab 05/15/18 01/14/19 extended release omeprazole 40 mg capsule,delayed 40 mg PO DAILY #90 tab 09/05/18 01/14/19 release ondansetron HCl 4 mg tablet 4 mg PO Q8H 10/21/18 01/14/19 sumatriptan succinate 100 mg tablet See Rx Instructions PO .COMPLEX 11/19/18 01/14/19 #12 tab metoprolol tartrate 12.5 mg PO BID #60 tab 12/01/18 01/14/19 potassium chloride 20 meq PO BID #60 tab 12/01/18 01/14/19 amlodipine 5 mg tablet 10 mg PO DAILY #60 tab 12/18/18 01/14/19 metoprolol tartrate 37.5 mg tablet 37.5 mg PO Q12H tab 12/18/18 01/14/19 venlafaxine 25 mg tablet 25 mg PO DAILY #30 tab 12/25/18 01/14/19 Compression Hose #2 each 01/14/19 Previous Rx's Medication Instructions Recorded gabapentin 300 mg capsule 300 mg PO TID #270 tab-cap 03/04/18 prochlorperazine maleate 5 mg 5 mg PO Q8H PRN #30 tab-cap 03/04/18 tablet pramipexole 0.25 mg tablet See Rx Instructions PO BID #270 05/13/18 tab-cap bupropion HCl 300 mg 24 hr tablet, 300 mg PO DAILY #90 tab 05/15/18 extended release omeprazole 40 mg capsule,delayed 40 mg PO DAILY #90 tab 09/05/18 release sumatriptan succinate 100 mg tablet See Rx Instructions PO .COMPLEX 11/19/18 #12 tab metoprolol tartrate 12.5 mg PO BID #60 tab 12/01/18 potassium chloride 20 meq PO BID #60 tab 12/01/18 amlodipine 5 mg tablet 10 mg PO DAILY #60 tab 12/18/18 venlafaxine 25 mg tablet 25 mg PO DAILY #30 tab 12/25/18 Compression Hose #2 each 01/14/19 Allergies Allergy/AdvReac Type Severity Reaction Status Date / Time iron [From Venofer] Allergy Severe Swelling/Ed Verified 12/18/18 13:18 brandon atropine Allergy Intermediate HIVES, Verified 12/18/18 13:18 SWOLLEN spironolactone Allergy Intermediate Skin Rash Verified 12/18/18 13:18 eplerenone AdvReac Intermediate swelling; Verified 12/18/18 13:18 SOB General Stated Complaint: SOB JOBY: 1 Review of Systems Review of Systems Narrative: No fever, cough, chest pain. +18 pound weight gain, lower extremity edema PFSH Medical History Abnormal serum creatinine level (Acute 07/2018) Serious Creatinine elevation, with resolution between episodes of dehydration .. Alopecia Anemia Dehydration (Inactive ~08/21/18) Several episodes now .. She can almost gauge her K levels based on mm weakness. [ ] BMP [ ] IVF-KCl Bolus-K have helped with hypokalemia in between bouts of diarrhea/dehydration when IVF not needed. 09/2018, ik Depression GERD (gastroesophageal reflux disease) Marylou's thyroiditis Hx of adenomatous colonic polyps Hypertension Irritable bowel syndrome diarrhea predominant Migraine headache with aura (Chronic) DR. VALDEZ 08/29/11 [employer] Vertigo and/or pain Rectal hemorrhage (Inactive 03/02/15) Reflux esophagitis Sustained VT (ventricular tachycardia) (Acute) during hypokalemia episode Surgical History section x3 Colonoscopy - MAC (03/16/14) w/ bx 2015-serrated adenomatous polyp EGD - MAC 2016 Endometrial Ablation 2007 2012 H/O colonoscopy (Chronic 12/05/17) History of esophagogastroduodenoscopy (EGD) (Chronic 12/05/17) Tonsillectomy Family History Mother Pulmonary hypertension Heart disease valve replacement Father Prostate cancer Essential hypertension Parkinsons Sister Uterine cancer Brother No problems noted. 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 Pets and animals: Yes Pets and animals: cat(s) and dog(s) What is your relationship status?: living with partner Panel score (0-1 are the most socially isolated patients): 1 What type of physical activity do you participate in: walking Duration: 15-30 minutes/day Frequency: 3-4 times per week Seatbelt use: always Working smoke detector in home: Yes Fire extinguisher in home: Yes Carbon monox detector in home: Yes Firearms in home: No Do you feel safe at home: Yes Do you feel safe in your relationship?: Yes Female Reproductive History Menstrual control method: permanent sterilization History History 3 Para 4 Hx # Term Pregnancies Multiple births 1 Hx # Pregnancies Ectopic pregnancies AB induced Hx Number of Living Children AB spontaneous Exam Narrative Exam Narrative: GEN: awake, alert, oriented 3. Pleasant, well groomed, interactive. HEAD: Normocephalic, atraumatic ENT: Mucous membranes moist, oropharynx unremarkable, External ear exam unremarkable EYES: PERRL, EOMI NECK: Full ROM, no ALONSO, no menigismus CHEST/RESP: Nontender, rales throughout CARDIOVASCULAR: RRR, no murmur, rub catie. 2+ Rad pulse bilateral ABDOMEN: Soft, nontender, no mass. +Bowel sounds EXT: Full ROM, 1-2+ lower extremity edema, no rash Neuro: Grossly normal neurologic exam, conversant, interactive. Psych: Speech fluent, thoughts congruent, affect normal Course Vital Signs Vital signs: Vital Signs Temperature 37.1 C 01/14/19 09:20 Pulse 78 01/14/19 09:20 Respiratory Rate 16 01/14/19 09:20 Blood Pressure 147/97 H 01/14/19 09:20 Pulse Oximetry 98 01/14/19 09:20 Temperature 37.1 C 01/14/19 09:20 Temperature Source Skin 01/14/19 09:20 Pulse 78 01/14/19 09:20 Respiratory Rate 16 01/14/19 09:20 Blood Pressure 147/97 H 01/14/19 09:20 Blood Pressure Position Sitting 01/14/19 09:20 Pulse Oximetry 98 01/14/19 09:20 Oxygen Delivery Method Cpap 01/14/19 09:20
[2019-01-14 09:42] LABS: Abs Immature Grans 0.02 k/cumm (0.0-0.09); Absolute Basophil Count 0.05 k/cumm (0.0-0.2); Absolute Eosinophil Count 0.36 k/cumm (0.0-0.7); Absolute Lymphocyte Count 2.83 k/cumm (1.2-3.4); Absolute Monocyte Count 0.56 k/cumm (0.11-0.7); Basophils % 0.5; Eosinophils % 3.9; HCT 41.7 % (36.0-46.0); HGB 14.1 g/dL (12.0-15.5); Immature Grans % 0.2; Mean Corp. HGB Concentration 33.8 g/dL (32.0-36.0); Mean Corpuscular Hemoglobin 28.6 pg (27.0-33.0); Mean Corpuscular Volume 84.6 fL (80-95); Mean Platelet Volume 8.9 fL (8.0-11.0); Monocytes % 6.1; Neutrophils % 58.3; Platelet Count 424 x1000/uL (130-400); RBC 4.93 m/cumm (4.00-5.20); RBC Distribution Width 13.6 % (11.7-14.6); White Blood Cell Count 9.12 k/cumm (4.4-10.8)
[2019-01-14] MEDS: Aspirin 81 MG CHEW 162 MG PO (09:44)
[2019-01-14] MEDS: Furosemide 40 MG/4 ML VIAL IVP (09:46)
[2019-01-14 10:02] LABS: ALT 35 U/L (14-59); AST 23 U/L (15-37); Albumin 3.4 g/dL (3.4-5.0); Alkaline Phosphatase 64 U/L (46-116); Anion Gap 12.2 mmol/L (3-11); BUN 13 mg/dL (7-18); Bilirubin, Total 0.4 mg/dL (0.2-1.0); CO2 24.8 mmol/L (21.0-32.0); CREATININE 0.87 mg/dL (0.55-1.02); Calcium 8.7 mg/dL (8.5-10.1); Chloride 102 mmol/L (98-107); Glucose 128 mg/dL (70-100); Magnesium 1.7 mg/dL (1.8-2.4); NT-proBNP 254 pg/mL; Potassium 3.6 mmol/L (3.5-5.1); Sodium 139 mmol/L (136-145); Total Protein 7.2 g/dL (6.4-8.2); Troponin I < 0.05 ng/mL (0.00-0.06)
--- NOTE | 2019-01-14 10:04 | DI.CT_ITS ---
EXAM: CT CHEST PE CTA CLINICAL HISTORY: Abrupt onset SOB TECHNIQUE: Axial CT angiography was performed with multi-slice acquisition and multi-planar and/or [address] angiography of the chest was performed with a bolus infusion of 100 cc of Omnipaque 350. COMPARISON: CT ABDOMEN/RENAL CTA from 10/30/2018 FINDINGS: Images obtained through the upper abdomen show unremarkable appearance of visualized portions of li jason, spleen, pancreas, adrenals and kidneys. Note is made of a small hiatal hernia. No mediastinal or hilar adenopathy. Tracheobronchial tree appears intact. Lungs are clear. No pleural effusion. No evidence of pulmonary embolic disease. Thoracic aorta and major branches appear normal. IMPRESSION: Negative CTA chest.
[2019-01-14] MEDS: Ondansetron 4 MG/2 ML VIAL IVP (10:11)
[2019-01-14] MEDS: Acetaminophen 325 MG TAB 650 MG PO (10:13)
[2019-01-14] MEDS: Omnipaque 350 MG/ML 100 ML BTL IJ (11:10)
[2019-01-14 13:17] LABS: Troponin I < 0.05 ng/mL (0.00-0.06)
== END 2019-01-14 13:40 | disposition home or self-care (01) ==
PROVIDERS: Emergency Provider Emergency Medicine; PCP Student in an Organized Health Care Education/Training Program
DX: E87.79 Other fluid overload (principal); I10 Essential (primary) hypertension
CPT/HCPCS: 36415; 71275; 80053; 93005; 96374; 96375; 99285; 71045; 83735; 83880; 84484; 85025; 93010; 99284; J1940; J2405; J3490

== ENCOUNTER 2019-01-17 08:44 | Outpatient (CLI) | payer OTHER, SELFPAY ==
[2019-01-17 09:08] LABS: Anion Gap 12.3 mmol/L (3-11); BUN 19 mg/dL (7-18); CO2 25.7 mmol/L (21.0-32.0); CREATININE 0.92 mg/dL (0.55-1.02); Calcium 8.8 mg/dL (8.5-10.1); Chloride 103 mmol/L (98-107); Glucose 119 mg/dL (70-100); Magnesium 1.8 mg/dL (1.8-2.4); Potassium 3.7 mmol/L (3.5-5.1); Sodium 141 mmol/L (136-145)
== END 2019-01-17 09:04 ==
PROVIDERS: PCP Student in an Organized Health Care Education/Training Program; Visit Provider Student in an Organized Health Care Education/Training Program
DX: E87.6 Hypokalemia (principal); R53.83 Other fatigue; R53.81 Other malaise
CPT/HCPCS: 36415; 80048; 83735

== ENCOUNTER 2019-01-20 08:12 | Outpatient (CLI) | payer OTHER, SELFPAY ==
[2019-01-20 08:51] LABS: Anion Gap 8.7 mmol/L (3-11); BUN 22 mg/dL (7-18); CO2 28.3 mmol/L (21.0-32.0); CREATININE 1.01 mg/dL (0.55-1.02); Chloride 103 mmol/L (98-107); Estimated GFR 58.26 (mL/min/1.73m2); Glucose 130 mg/dL (70-100); Magnesium 1.8 mg/dL (1.8-2.4); Potassium 3.4 mmol/L (3.5-5.1); Sodium 140 mmol/L (136-145)
== END 2019-01-20 08:32 ==
PROVIDERS: PCP Student in an Organized Health Care Education/Training Program; Visit Provider Student in an Organized Health Care Education/Training Program
DX: E87.6 Hypokalemia (principal); R53.81 Other malaise; R53.83 Other fatigue
CPT/HCPCS: 36415; 80048; 83735

== ENCOUNTER 2019-01-22 00:53 | Outpatient (RCR) | payer OTHER, SELFPAY ==
[2019-01-22] MEDS: POTASSIUM CHLORIDE 20 MEQ/100 ML BAG 50 MEQ IVPB ×2 (09:37→11:50)
[2019-01-22] MEDS: Normal Saline Flush 10 ML SYR IVP (09:45)
== END 2019-01-30 23:59 | disposition home or self-care (01) ==
LOC: INF 00:53
PROVIDERS: PCP Student in an Organized Health Care Education/Training Program; Visit Provider Student in an Organized Health Care Education/Training Program
DX: E87.6 Hypokalemia (principal); E86.0 Dehydration
CPT/HCPCS: 96365; 96366; J3480

== ENCOUNTER 2019-01-22 08:38 | Outpatient (CLI) | payer OTHER, SELFPAY ==
[2019-01-22 09:19] LABS: Anion Gap 11.7 mmol/L (3-11); BUN 20 mg/dL (7-18); CO2 26.3 mmol/L (21.0-32.0); CREATININE 1.06 mg/dL (0.55-1.02); Chloride 102 mmol/L (98-107); Glucose 200 mg/dL (70-100); Magnesium 1.7 mg/dL (1.8-2.4); Potassium 3.4 mmol/L (3.5-5.1); Sodium 140 mmol/L (136-145)
== END 2019-01-22 08:58 ==
PROVIDERS: PCP Student in an Organized Health Care Education/Training Program; Visit Provider Student in an Organized Health Care Education/Training Program
DX: E87.6 Hypokalemia (principal); R53.83 Other fatigue; R53.81 Other malaise
CPT/HCPCS: 36415; 80048; 83735

== ENCOUNTER 2019-01-23 08:00 | Outpatient (CLI) | payer OTHER, SELFPAY ==
[2019-01-23 08:26] LABS: Anion Gap 7.3 mmol/L (3-11); CO2 29.7 mmol/L (21.0-32.0); CREATININE 0.97 mg/dL (0.55-1.02); Calcium 9.2 mg/dL (8.5-10.1); Chloride 101 mmol/L (98-107); Glucose 119 mg/dL (70-100); Magnesium 1.8 mg/dL (1.8-2.4); Potassium 3.8 mmol/L (3.5-5.1); Sodium 138 mmol/L (136-145)
[2019-01-23 08:48] LABS: BUN 22 mg/dL (7-18)
== END 2019-01-23 08:20 ==
PROVIDERS: PCP Student in an Organized Health Care Education/Training Program; Visit Provider Student in an Organized Health Care Education/Training Program
DX: E87.6 Hypokalemia (principal); R53.83 Other fatigue; R53.81 Other malaise
CPT/HCPCS: 36415; 80048; 83735

== ENCOUNTER 2019-01-27 10:25 | Outpatient (CLI) | payer OTHER, SELFPAY ==
[2019-01-27 11:05] LABS: Anion Gap 7.5 mmol/L (3-11); BUN 19 mg/dL (7-18); CO2 27.5 mmol/L (21.0-32.0); CREATININE 1.04 mg/dL (0.55-1.02); Calcium 8.8 mg/dL (8.5-10.1); Chloride 105 mmol/L (98-107); Estimated GFR 56.32 (mL/min/1.73m2); Glucose 122 mg/dL (70-100); Potassium 3.7 mmol/L (3.5-5.1); Sodium 140 mmol/L (136-145)
== END 2019-01-27 10:45 ==
PROVIDERS: PCP Student in an Organized Health Care Education/Training Program; Visit Provider Student in an Organized Health Care Education/Training Program
DX: E87.6 Hypokalemia (principal); R53.83 Other fatigue; R53.81 Other malaise
CPT/HCPCS: 36415; 80048; 83735

== ENCOUNTER 2019-01-28 07:48 | Outpatient (CLI) | payer OTHER, SELFPAY | END 2019-01-28 08:08 | PROVIDERS: PCP Student in an Organized Health Care Education/Training Program; Visit Provider Internal Medicine Cardiovascular Disease | DX: I10 Essential (primary) hypertension (principal); I47.2 Ventricular tachycardia; J81.0 Acute pulmonary edema; R00.2 Palpitations | CPT/HCPCS: 93005; 93010 ==

== ENCOUNTER 2019-01-31 00:45 | Outpatient (CLI) | payer OTHER, SELFPAY ==
--- NOTE | 2019-01-31 10:30 | DI.US_ITS ---
APPROVED REPORT Conclusion Left Ventricle : The left ventricle is dilated. The left ventricular ejection fraction is within the normal range. There is normal left ventricular wall thickness. The posterior wall thickness is mary l. The septum is normal. There is normal LV segmental wall motion. LVEF is 60-64%. Right Ventricle : Right ventricle is grossly normal in size. Right ventricular systolic function is g rossly normal. Atria : The left atrium size is normal. The right atrium size is normal. Aortic Valve : The aortic valve is normal in structure. Aortic valve is trileaflet. There is no aorti c valvular stenosis. No aortic regurgitation is present. Mitral Valve : The mitral valve is normal in structure. No evidence of mitral valve stenosis. Trace m itral regurgitation. Tricuspid Valve : The tricuspid valve is normal in structure. Trace tricuspid regurgitation. Pulmonic Valve : Pulmonic valve is not well visualized. Great Vessels : The ascending aorta is moderately dilated. The IVC is normal in size and collapses > 50% with inspiration. Estimated RVSP is 21-25 mmHg. There is no prior echocardiogram available for comparison. EXAM: Comprehensive 2D, Doppler, and color-flow Echocardiogram Patient Location: Out-Patient Vegetable Thinner: ANGIE Pastor (AE) Indications: Acute Pulmonary Edema Left Ventricle The left ventricle is dilated. The left ventricular ejection fraction is within the normal range. The re is normal left ventricular wall thickness. The posterior wall thickness is normal. The septum is n ormal. There is normal LV segmental wall motion. Diastolic function is normal. LVEF is 60-64%. Right Ventricle Right ventricle is grossly normal in size. Right ventricular systolic function is grossly normal. Atria The left atrium size is normal. The right atrium size is normal. The interatrial septum is intact wit h no evidence for an atrial septal defect. Aortic Valve The aortic valve is normal in structure. Aortic valve is trileaflet. There is no aortic valvular sten osis. No aortic regurgitation is present. Mitral Valve The mitral valve is normal in structure. No evidence of mitral valve stenosis. Trace mitral regurgita tion. Tricuspid Valve The tricuspid valve is normal in structure. Trace tricuspid regurgitation. Pulmonic Valve Pulmonic valve is not well visualized. There is no pulmonic valvular stenosis. Great Vessels The aortic root is normal in size. The ascending aorta is moderately dilated. The IVC is normal in si ze and collapses >50% with inspiration. Estimated RVSP is 21-25 mmHg Pericardium There is no pericardial effusion. 2D Dimensions IVSd 0.80 cm F: 0.6-1.0 LV EDV A2C 97.90 mL PWd 0.86 cm F: 0.6 - 1.0 LV EDV A4C 81.89 mL LVDd 5.23 cm F: 3.9 - 5.3 LA Volume Index A2C 20.64 mL/m2 LVDs 3.15 cm F: 2.2 - 3.5 LA Volume Index A4C 25.29 mL/m2 Aortic Root 3.02 cm F: 2.7 - 3.3 LA Volume Index Biplane 23.19 mL/m2 Left Atrium 3.45 cm F: 2.7 - 3.8 LA Area A4C 19.00 cm2 RA Area A4C 16.59 cm2 LA Area A2C 16.91 cm2 LVOT 1.75 cm (M/F) 1.5-2.5 LA/Aortic Root Ratio 0.87 Ascending Aorta 3.75 cm F: 2.3 - 3.1 EF AP4 70.64 % LVEF (Teich) 70.05 % EF AP2 59.83 % LVEF (Hebert's) 64.36 % F: 54 - 74 EF BP 64.36 % FS 39.84 % LV Diastology E Decel Time 240.00 (160-240 msec) E/A Ratio 0.9 MED E' 0.07 (>0.07 m/s) LV E/e MED 12.00 (<14) LAT E' 0.10 (>0.1 m/s) LV E/e LAT 7.83 (<14) Aortic Valve LVOT Area 2.40 cm2 LVOT Peak Fantasma. 1.23 m/s LVOT Mean Fantasma. 0.78 m/s LVOT Peak Gr. 6.09 mmHg LVOT Mean Gr. 2.90 mmHg LVOT VTI 0.27 m AoV Peak Fantasma. 1.73 (0.5-1.3 m/s) AoV Mean Fantasma. 1.20 m/s AO Peak GR. 11.94 mmHg AO Mean GR. 6.37 (<5 mmHg) AO VTI 0.34 (0.18-0.25 m) KIMBERLY (VTI) 1.89 (2.5-4.5 cm2) KIMBERLY (VTI) Index 0.86 cm/m2 Mitral Valve MV E Max Fantasma. 0.81 (0.4-1.3 m/s) MVA VTI 2.17 (4.0-6.0 cm2) MV A Velocity 0.89 (0.4-1.3 m/s) E/A Ratio 0.91 MV Decel. Time 240.35 (160-240 msec) MV PHT 69.70 msec MVA PHT 3.16 cm2 Tricuspid Valve TR P. Velocity 2.33 m/s TV Regurg Vmax 2.33 m/s TR P. Gradient 21.80 mmHg
== END 2019-01-31 01:05 ==
PROVIDERS: PCP Student in an Organized Health Care Education/Training Program; Visit Provider Internal Medicine Cardiovascular Disease
DX: J81.0 Acute pulmonary edema (principal); I10 Essential (primary) hypertension; I47.2 Ventricular tachycardia; E87.6 Hypokalemia
CPT/HCPCS: 93306

== ENCOUNTER 2019-02-03 08:07 | Outpatient (CLI) | payer OTHER, SELFPAY ==
[2019-02-03 08:46] LABS: Anion Gap 11.3 mmol/L (3-11); BUN 19 mg/dL (7-18); CO2 28.7 mmol/L (21.0-32.0); CREATININE 1.01 mg/dL (0.55-1.02); Chloride 101 mmol/L (98-107); Estimated GFR 58.26 (mL/min/1.73m2); Glucose 132 mg/dL (70-100); Magnesium 1.7 mg/dL (1.8-2.4); Potassium 3.1 mmol/L (3.5-5.1); Sodium 141 mmol/L (136-145)
== END 2019-02-03 08:27 ==
PROVIDERS: PCP Student in an Organized Health Care Education/Training Program; Visit Provider Student in an Organized Health Care Education/Training Program
DX: E87.6 Hypokalemia (principal); R53.83 Other fatigue
CPT/HCPCS: 36415; 80048; 83735

== ENCOUNTER 2019-02-05 10:37 | Outpatient (CLI) | payer OTHER, SELFPAY ==
[2019-02-05 11:01] LABS: Anion Gap 9.2 mmol/L (3-11); BUN 20 mg/dL (7-18); CO2 29.8 mmol/L (21.0-32.0); CREATININE 1.05 mg/dL (0.55-1.02); Chloride 102 mmol/L (98-107); Glucose 127 mg/dL (70-100); Magnesium 1.6 mg/dL (1.8-2.4); Potassium 3.3 mmol/L (3.5-5.1); Sodium 141 mmol/L (136-145)
== END 2019-02-05 10:57 ==
PROVIDERS: PCP Student in an Organized Health Care Education/Training Program; Visit Provider Student in an Organized Health Care Education/Training Program
DX: E87.6 Hypokalemia (principal); R53.83 Other fatigue
CPT/HCPCS: 36415; 80048; 83735

== ENCOUNTER 2019-02-07 09:28 | Outpatient (CLI) | payer OTHER, SELFPAY ==
[2019-02-07 10:25] LABS: Anion Gap 9.6 mmol/L (3-11); BUN 23 mg/dL (7-18); CO2 27.4 mmol/L (21.0-32.0); CREATININE 0.91 mg/dL (0.55-1.02); Calcium 8.8 mg/dL (8.5-10.1); Chloride 101 mmol/L (98-107); Glucose 115 mg/dL (70-100); Potassium 3.4 mmol/L (3.5-5.1); Sodium 138 mmol/L (136-145)
== END 2019-02-07 09:48 ==
PROVIDERS: PCP Student in an Organized Health Care Education/Training Program; Visit Provider Student in an Organized Health Care Education/Training Program
DX: E87.6 Hypokalemia (principal); R53.83 Other fatigue
CPT/HCPCS: 36415; 80048; 83735

== ENCOUNTER 2019-02-07 16:42 | Outpatient (REF) | payer OTHER, SELFPAY ==
[2019-02-07 19:32] LABS: Bilirubin Negative (Negative); Blood Trace-lysed (Negative); Clarity Clear (Clear); Glucose Negative (Negative); Ketones Negative (Negative); Leukocyte Esterase Negative (Negative); Nitrite Negative (Negative); Specific Gravity 1.015 (1.005-1.025); Urobilinogen 0.2 EU/dL (Up TO 0.2); pH 6.5 (5-8)
[2019-02-07 19:58] LABS: Bacteria Negative HPF (Negative); C & S Indicated? No; Casts Negative LPF (Negative); Crystals Negative HPF (Negative); Epithelial Cells Few HPF (Negative); Mucus Negative (Negative); Other Cells Negative (Negative); RBC 0-2 (0-2); WBC 0-2 HPF (0-5)
== END 2019-02-07 17:02 ==
LOC: LBN 16:42
PROVIDERS: PCP Student in an Organized Health Care Education/Training Program; Visit Provider Student in an Organized Health Care Education/Training Program
DX: R31.9 Hematuria, unspecified (principal)
CPT/HCPCS: 81003; 81015

== ENCOUNTER 2019-02-10 08:11 | Outpatient (CLI) | payer OTHER, SELFPAY ==
[2019-02-10 08:40] LABS: Anion Gap 10.6 mmol/L (3-11); BUN 23 mg/dL (7-18); CO2 29.4 mmol/L (21.0-32.0); CREATININE 1.01 mg/dL (0.55-1.02); Calcium 9.2 mg/dL (8.5-10.1); Chloride 101 mmol/L (98-107); Estimated GFR 58.26 (mL/min/1.73m2); Glucose 123 mg/dL (70-100); Magnesium 1.7 mg/dL (1.8-2.4); Potassium 3.1 mmol/L (3.5-5.1); Sodium 141 mmol/L (136-145)
== END 2019-02-10 08:31 ==
PROVIDERS: PCP Student in an Organized Health Care Education/Training Program; Visit Provider Student in an Organized Health Care Education/Training Program
DX: E87.6 Hypokalemia (principal); R53.83 Other fatigue
CPT/HCPCS: 36415; 80048; 83735

== ENCOUNTER 2019-02-11 09:16 | Outpatient (CLI) | payer OTHER, SELFPAY ==
[2019-02-11 09:44] LABS: Anion Gap 7.3 mmol/L (3-11); BUN 21 mg/dL (7-18); CO2 31.7 mmol/L (21.0-32.0); CREATININE 0.93 mg/dL (0.55-1.02); Calcium 8.9 mg/dL (8.5-10.1); Chloride 101 mmol/L (98-107); Glucose 120 mg/dL (70-100); Magnesium 1.6 mg/dL (1.8-2.4); Potassium 3.1 mmol/L (3.5-5.1); Sodium 140 mmol/L (136-145)
== END 2019-02-11 09:36 ==
PROVIDERS: PCP Student in an Organized Health Care Education/Training Program; Visit Provider Student in an Organized Health Care Education/Training Program
DX: E87.6 Hypokalemia (principal); E86.0 Dehydration
CPT/HCPCS: 36415; 80048; 83735

== ENCOUNTER 2019-02-13 09:13 | Outpatient (CLI) | payer OTHER, SELFPAY ==
[2019-02-13 09:39] LABS: Anion Gap 9.6 mmol/L (3-11); BUN 25 mg/dL (7-18); CO2 28.4 mmol/L (21.0-32.0); CREATININE 0.96 mg/dL (0.55-1.02); Calcium 8.7 mg/dL (8.5-10.1); Chloride 102 mmol/L (98-107); Glucose 150 mg/dL (70-100); Magnesium 1.8 mg/dL (1.8-2.4); Potassium 3.5 mmol/L (3.5-5.1); Sodium 140 mmol/L (136-145)
== END 2019-02-13 09:33 ==
PROVIDERS: PCP Student in an Organized Health Care Education/Training Program; Visit Provider Student in an Organized Health Care Education/Training Program
DX: E87.6 Hypokalemia (principal)
CPT/HCPCS: 36415; 80048; 83735

== ENCOUNTER 2019-02-14 08:35 | Outpatient (CLI) | payer OTHER, SELFPAY ==
[2019-02-14 09:32] LABS: Anion Gap 14.8 mmol/L (3-11); BUN 21 mg/dL (7-18); CO2 22.2 mmol/L (21.0-32.0); Calcium 9.2 mg/dL (8.5-10.1); Chloride 101 mmol/L (98-107); Glucose 133 mg/dL (70-100); Magnesium 1.6 mg/dL (1.8-2.4); Potassium 3.2 mmol/L (3.5-5.1); Sodium 138 mmol/L (136-145)
== END 2019-02-14 08:55 ==
PROVIDERS: PCP Student in an Organized Health Care Education/Training Program; Visit Provider Student in an Organized Health Care Education/Training Program
DX: E87.6 Hypokalemia (principal); R53.83 Other fatigue
CPT/HCPCS: 36415; 80048; 83735

== ENCOUNTER 2019-02-14 13:15 | Outpatient (CLI) | payer OTHER, SELFPAY ==
--- NOTE | 2019-02-14 13:00 | DI.RAD_ITS ---
EXAM: XR CHEST 2V PA LATERAL CLINICAL HISTORY: r/o effusion, pneumonia, pleurodynia, R07.81, hx flash pulmonary edema,. TECHNIQUE: 2D digital imaging was performed. COMPARISON: XR PORTABLE CHEST AP from 01/14/2019 FINDINGS: LUNGS: Clear. No pleural abnormality seen. HEART: Normal. MEDIASTINUM: Normal. OTHER FINDINGS:Normal. IMPRESSION: No acute pulmonary findings.
== END 2019-02-14 13:35 ==
PROVIDERS: PCP Student in an Organized Health Care Education/Training Program; Visit Provider Student in an Organized Health Care Education/Training Program
DX: R07.81 Pleurodynia (principal)
CPT/HCPCS: 71046

== ENCOUNTER 2019-02-17 08:12 | Outpatient (CLI) | payer OTHER, SELFPAY ==
[2019-02-17 08:39] LABS: Anion Gap 8.3 mmol/L (3-11); BUN 21 mg/dL (7-18); CO2 28.7 mmol/L (21.0-32.0); CREATININE 1.03 mg/dL (0.55-1.02); Calcium 9.2 mg/dL (8.5-10.1); Chloride 101 mmol/L (98-107); Estimated GFR 56.95 (mL/min/1.73m2); Glucose 166 mg/dL (70-100); Magnesium 1.6 mg/dL (1.8-2.4); Potassium 3.3 mmol/L (3.5-5.1); Sodium 138 mmol/L (136-145)
== END 2019-02-17 08:32 ==
PROVIDERS: PCP Student in an Organized Health Care Education/Training Program; Visit Provider Student in an Organized Health Care Education/Training Program
DX: E87.6 Hypokalemia (principal); R53.83 Other fatigue
CPT/HCPCS: 36415; 80048; 83735

== ENCOUNTER 2019-02-21 08:43 | Outpatient (CLI) | payer OTHER, SELFPAY ==
[2019-02-21 09:26] LABS: Anion Gap 11.3 mmol/L (3-11); BUN 18 mg/dL (7-18); CO2 26.7 mmol/L (21.0-32.0); CREATININE 0.98 mg/dL (0.55-1.02); Chloride 102 mmol/L (98-107); Glucose 125 mg/dL (74-106); Magnesium 1.7 mg/dL (1.8-2.4); Sodium 140 mmol/L (136-145)
[2019-02-21 09:54] LABS: Potassium 2.9 mmol/L (3.5-5.1)
== END 2019-02-21 09:03 ==
PROVIDERS: PCP Student in an Organized Health Care Education/Training Program; Visit Provider Student in an Organized Health Care Education/Training Program
DX: E87.6 Hypokalemia (principal); R53.83 Other fatigue
CPT/HCPCS: 36415; 80048; 83735

== ENCOUNTER 2019-02-24 09:05 | Outpatient (CLI) | payer OTHER, SELFPAY ==
[2019-02-24 09:39] LABS: Anion Gap 9.2 mmol/L (3-11); BUN 18 mg/dL (7-18); CO2 28.8 mmol/L (21.0-32.0); CREATININE 0.96 mg/dL (0.55-1.02); Calcium 9.1 mg/dL (8.5-10.1); Chloride 104 mmol/L (98-107); Glucose 109 mg/dL (74-106); Magnesium 1.6 mg/dL (1.8-2.4); Potassium 3.3 mmol/L (3.5-5.1); Sodium 142 mmol/L (136-145)
== END 2019-02-24 09:25 ==
PROVIDERS: PCP Student in an Organized Health Care Education/Training Program; Visit Provider Student in an Organized Health Care Education/Training Program
DX: E87.6 Hypokalemia (principal); R53.83 Other fatigue
CPT/HCPCS: 36415; 80048; 83735

== ENCOUNTER 2019-02-26 01:04 | Outpatient (RCR) | payer OTHER, SELFPAY ==
[2019-02-04] MEDS: Normal Saline Flush 10 ML SYR IVP (08:59)
[2019-02-04] MEDS: POTASSIUM CHLORIDE 20 MEQ/100 ML BAG 50 MEQ IVPB ×2 (08:59→11:02)
[2019-02-06] MEDS: POTASSIUM CHLORIDE 20 MEQ/100 ML BAG 50 MEQ IVPB ×2 (09:30→11:32)
[2019-02-06] MEDS: Normal Saline Flush 10 ML SYR IVP (09:37)
[2019-02-06] MEDS: MAGNESIUM SULFATE 4 GM/100 ML BAG IVPB (11:00)
[2019-02-10] MEDS: POTASSIUM CHLORIDE 20 MEQ/100 ML BAG 50 MEQ IVPB ×2 (09:30→11:35)
[2019-02-10] MEDS: Normal Saline Flush 10 ML SYR IVP (09:53)
[2019-02-12] MEDS: MAGNESIUM SULFATE 4 GM/100 ML BAG IVPB (08:13)
[2019-02-12] MEDS: POTASSIUM CHLORIDE 20 MEQ/100 ML BAG 50 MEQ IVPB ×2 (08:13→10:09)
[2019-02-12] MEDS: Normal Saline Flush 10 ML SYR IVP (08:22)
[2019-02-14] MEDS: Normal Saline Flush 10 ML SYR IVP (10:40)
[2019-02-14] MEDS: POTASSIUM CHLORIDE 20 MEQ/100 ML BAG 50 MEQ IVPB ×2 (10:40→12:31)
[2019-02-14] MEDS: MAGNESIUM SULFATE 4 GM/100 ML BAG IVPB (11:00)
[2019-02-18] MEDS: Normal Saline Flush 10 ML SYR IVP (09:34)
[2019-02-18] MEDS: POTASSIUM CHLORIDE 20 MEQ/100 ML BAG 50 MEQ IVPB ×2 (09:34→11:23)
[2019-02-18] MEDS: MAGNESIUM SULFATE 4 GM/100 ML BAG IVPB (09:34)
[2019-02-21] MEDS: Normal Saline Flush 10 ML SYR IVP (10:15)
[2019-02-21] MEDS: MAGNESIUM SULFATE 4 GM/100 ML BAG IVPB (10:37)
[2019-02-21] MEDS: POTASSIUM CHLORIDE 20 MEQ/100 ML BAG 50 MEQ IVPB ×2 (12:35→14:34)
[2019-02-25] MEDS: POTASSIUM CHLORIDE 20 MEQ/100 ML BAG 50 MEQ IVPB ×2 (08:14→10:20)
[2019-02-25] MEDS: MAGNESIUM SULFATE 4 GM/100 ML BAG IVPB (08:14)
[2019-02-25] MEDS: Normal Saline Flush 10 ML SYR IVP (08:14)
[2019-02-26] MEDS: Normal Saline Flush 10 ML SYR IVP (10:04)
[2019-02-26] MEDS: POTASSIUM CHLORIDE 20 MEQ/100 ML BAG 50 MEQ IVPB ×2 (10:04→12:13)
[2019-02-26] MEDS: MAGNESIUM SULFATE 4 GM/100 ML BAG IVPB (13:08)
== END 2019-03-01 23:59 | disposition home or self-care (01) ==
LOC: INF 01:04
PROVIDERS: PCP Student in an Organized Health Care Education/Training Program; Visit Provider Student in an Organized Health Care Education/Training Program
DX: E87.6 Hypokalemia (principal); E86.0 Dehydration
CPT/HCPCS: 96365; 96366; J3475; J3480

== ENCOUNTER 2019-02-26 08:55 | Outpatient (CLI) | payer OTHER, SELFPAY ==
[2019-02-26 09:20] LABS: Anion Gap 7.4 mmol/L (3-11); BUN 16 mg/dL (7-18); CO2 31.6 mmol/L (21.0-32.0); CREATININE 0.94 mg/dL (0.55-1.02); Calcium 9.1 mg/dL (8.5-10.1); Chloride 100 mmol/L (98-107); Glucose 128 mg/dL (74-106); Magnesium 1.7 mg/dL (1.8-2.4); Potassium 3.2 mmol/L (3.5-5.1); Sodium 139 mmol/L (136-145)
== END 2019-02-26 09:15 ==
PROVIDERS: PCP Student in an Organized Health Care Education/Training Program; Visit Provider Student in an Organized Health Care Education/Training Program
DX: E87.6 Hypokalemia (principal); R53.83 Other fatigue
CPT/HCPCS: 36415; 80048; 83735

== ENCOUNTER 2019-03-03 09:31 | Outpatient (CLI) | payer BC, SELFPAY ==
[2019-03-03 10:02] LABS: Anion Gap 11.6 mmol/L (3-11); BUN 18 mg/dL (7-18); CO2 28.4 mmol/L (21.0-32.0); CREATININE 1.01 mg/dL (0.55-1.02); Calcium 9.1 mg/dL (8.5-10.1); Chloride 100 mmol/L (98-107); Estimated GFR 58.26 (mL/min/1.73m2); Glucose 164 mg/dL (74-106); Magnesium 1.6 mg/dL (1.8-2.4); Sodium 140 mmol/L (136-145)
[2019-03-03 10:10] LABS: Potassium 2.6 mmol/L (3.5-5.1)
== END 2019-03-03 09:51 ==
PROVIDERS: PCP Student in an Organized Health Care Education/Training Program; Visit Provider Student in an Organized Health Care Education/Training Program
DX: E87.6 Hypokalemia (principal); R53.83 Other fatigue
CPT/HCPCS: 36415; 80048; 83735

== ENCOUNTER 2019-03-03 15:32 | Observation (INO) | payer BC, SELFPAY ==
[2019-03-03 16:00] VITALS: BP 149/104; PULSE 92; RESP 18; TEMP 36.5; O2SAT 98
[2019-03-03 16:07] VITALS: PULSE 93
[2019-03-03] MEDS: Potassium Chloride 20 MEQ TABCR 40 MEQ PO (16:51)
[2019-03-03] MEDS: POTASSIUM CHLORIDE 20 MEQ/100 ML BAG 50 MEQ IVPB ×2 (16:52→19:17)
[2019-03-03] MEDS: Normal Saline Flush 10 ML SYR IVP (16:52)
--- NOTE | 2019-03-03 17:02 | W.PM.HP.N ---
Date of service: 03/03/19 Time of Service: 17:03 Assessment and Plan Assessment and plan (1) Hypokalemia: Status: Acute Assessment and plan: In setting of diarrhea, chronic HCTZ and PPI therapy. The trigger for this presentation does appear to be diarrhea, though, and I am not sure that the patient is expressing a rational reason for not taking imodium when this occurs. For now, will focus on repleting lytes, monitor on telemetry. Control diarrhea. Recheck Labs in am. (2) Hypomagnesemia: Status: Acute Assessment and plan: Replete. Could be due to PPI. Recheck in am. (3) Diarrhea: Status: Acute Assessment and plan: The underlying cause for this is not clear, but it is a chronic issue, previously seen at [facility]. Will refer the patient back there. Obtaining stool studies here. Provide prn loperamide. Unless the patient starts taking measures to stop diarrhea, her hypokalemic episodes will recur and she will require repeated hospitalizations which are likely preventable. We spoke about this. (4) Essential hypertension: Status: Acute Assessment and plan: Increase coreg to 25 mg PO BID (the patient was taking 12.5 mg PO BID). Continue norvasc, HCTZ at current dose (skip tonight's dose of HCTZ in light of dehydration). (5) Dehydration: Status: Acute Assessment and plan: Will give 250 cc of NS (the patient does have a tendency to go into flash pulmonary edema but is frankly dehydrated in front of me). (6) DVT prophylaxis: Status: Acute Assessment and plan: Lovenox (7) Discharge planning issues: Status: Acute Assessment and plan: Full code Likely discharge home tomorrow History of Present Illness History of Present Illness Chief Complaint: feeling weak, cramping in toes Narrative: Ms Das is a 48 year old female with PMHx of refractory/recurrent hypokalemia and hypomagnesemia, chronic diarrhea of unclear etiology, hypertension on HCTZ, and h/o flush pulmonary edema when not on HCTZ, whose PCP asked me to consider for direct admission for a potassium of 2.6 and magnesium of 1.6. oMnisha states that she has had diarrhea the last couple of days, but has not taken loperamide - she states she usually waits one or two days before taking loperamide when she has diarrhea. In the last 24 hours, she had four large-volume stools. Denies nausea, vomiting, abdominal pain. The only thing she thinks that could be triggering her diarrhea is association with her menses - she just finished her period. But prior to this, she had not had a period in several months, yet she did have both diarrhea and hypokalemia. We discussed how she should take loperamide after each liquid bowel movement and that it would be ok to take it every day. I also recommended that she follow up with GI at [facility] - she saw them a year ago or so, she states. She asked me to send a repeat referral. The patient endorses a feeling of dizziness yesterday, dyspnea on exertion, feeling fatigued/weak, and cramping in her toes. She was initially sent to the infusion room, where she received 40 meq of IV potassium and 4 grams of IV magnesium. I was asked to take over care for the patient until her numbers normalized. Of note, she was recently initiated on coreg by Dr Laird, and its dose is being titrated up. Review of Systems Narrative: 12 systems reviewed. Pertinent positives and negatives are as per HPI. 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, BS degree Pets and animals: Yes Pets and animals: cat(s) and dog(s) What is your relationship status?: living with partner Panel score (0-1 are the most socially isolated patients): 1 What type of physical activity do you participate in: walking Duration: 15-30 minutes/day Frequency: 3-4 times per week Seatbelt use: always Working smoke detector in home: Yes Fire extinguisher in home: Yes Carbon monox detector in home: Yes Firearms in home: No Do you feel safe at home: Yes Do you feel safe in your relationship?: Yes Female Reproductive History Menstrual control method: permanent sterilization History History 3 Para 4 Hx # Term Pregnancies Multiple births 1 Hx # Pregnancies Ectopic pregnancies AB induced Hx Number of Living Children AB spontaneous Meds Home Medications and Allergies Home Medications Medication Instructions Recorded Confirmed Type multivitamin [Daily Multi-Vitamin] 1 ea PO DAILY 07/22/14 03/03/19 History Hair Prosthesis u MISCELLANEOUS DAILY #1 u 05/19/15 11/29/18 Clinic loperamide [Imodium A-D] 1 mg PO Q48H PRN 11/27/16 03/03/19 History prochlorperazine maleate 5 mg 5 mg PO Q8H PRN #30 tab-cap 03/04/18 03/03/19 Rx tablet bupropion HCl 300 mg 24 hr tablet, 300 mg PO DAILY #90 tab 05/15/18 03/03/19 Rx extended release omeprazole 40 mg capsule,delayed 40 mg PO DAILY #90 tab 09/05/18 03/03/19 Rx release potassium chloride 20 meq PO BID #60 tab 12/01/18 03/03/19 Rx venlafaxine 25 mg tablet 25 mg PO DAILY #30 tab 01/21/19 03/03/19 Rx gabapentin 300 mg capsule 300 mg PO TID #270 tab-cap 01/23/19 03/03/19 Rx hydrochlorothiazide 50 mg tablet 25 mg PO BID 01/28/19 03/03/19 History ondansetron HCl 4 mg tablet 4 mg PO Q8H PRN tab 01/28/19 03/03/19 History sumatriptan succinate 100 mg tablet See Rx Instructions PO .COMPLEX 01/28/19 03/03/19 History PRN tab Na 320 mg-K 190 mg-Cl 70 2 packet PO Q2H #8 each 02/14/19 03/03/19 Rx ty-zffpxud-Oe-Mg-carbohyd oral powder packet carvedilol 25 mg tablet 25 mg PO BID #90 tab 02/26/19 03/03/19 Rx amlodipine 5 mg tablet 10 mg PO DAILY #60 tab 03/03/19 Rx melatonin 10 mg PO HS PRN 03/03/19 03/03/19 History pramipexole [Mirapex] 0.25 mg PO HS 03/03/19 03/03/19 History Allergies Allergy/AdvReac Type Severity Reaction Status Date / Time iron [From Venofer] Allergy Severe Swelling/Ed Verified 02/24/19 10:20 brandon atropine Allergy Intermediate HIVES, Verified 02/24/19 10:20 SWOLLEN spironolactone Allergy Intermediate Skin Rash Verified 02/24/19 10:20 eplerenone AdvReac Intermediate swelling; Verified 02/24/19 10:20 SOB Exam Narrative Exam Narrative: General: Very pleasant middle-aged female, wearing a hair prosthesis, A&Ox3, mildly anxious Neurological: A&Ox3, no focal deficits Psychiatric: mildly anxious Skin: dry/dehydrated HEENT: Atraumatic, normocephalic (wearing hair prosthesis), EOMI, dry MM, clear oropharynx, no submandibular or cervical lymphadenopathy, no goiter or JVD Cardiovascular: RRR, +quiet FRANK Lungs: CTAB Gastrointestinal: Abdomen is soft, nontender, nondistended Genitourinary: deferred Extremities: no e/c/c BLE's, Results Labs Result diagrams: 03/03/19 17:25 Last Vital Signs Pulse 93 H 03/03/19 16:07
[2019-03-03] MEDS: Normal Saline 250 ML 75 ML IV (17:32)
[2019-03-03 17:35] LABS: Abs Immature Grans 0.01 k/cumm (0.0-0.09); Absolute Basophil Count 0.04 k/cumm (0.0-0.2); Absolute Eosinophil Count 0.33 k/cumm (0.0-0.7); Absolute Lymphocyte Count 3.59 k/cumm (1.2-3.4); Absolute Monocyte Count 0.86 k/cumm (0.11-0.7); Absolute Neutrophil Count 5.58 k/cumm (1.2-6.7); Basophils % 0.4; Eosinophils % 3.2; HCT 39.6 % (36.0-46.0); HGB 13.7 g/dL (12.0-15.5); Immature Grans % 0.1; Lymphocytes % 34.5; Mean Corp. HGB Concentration 34.6 g/dL (32.0-36.0); Mean Corpuscular Hemoglobin 28.8 pg (27.0-33.0); Mean Corpuscular Volume 83.2 fL (80-95); Monocytes % 8.3; Neutrophils % 53.5; Platelet Count 428 x1000/uL (130-400); RBC 4.76 m/cumm (4.00-5.20); RBC Distribution Width 13.8 % (11.7-14.6); White Blood Cell Count 10.41 k/cumm (4.4-10.8)
[2019-03-03] MEDS: Gabapentin 300 MG CAP PO (19:44)
[2019-03-03] MEDS: Carvedilol 25 MG TAB PO (19:44)
[2019-03-03 20:12] VITALS: BP 137/90; PULSE 85; RESP 20; TEMP 37.2; O2SAT 97
[2019-03-03] MEDS: Pramipexole 0.25 MG TAB PO (22:31)
[2019-03-03 23:29] VITALS: BP 137/82; PULSE 75; RESP 19; TEMP 36.9; O2SAT 96
[2019-03-04] VITALS (9 sets, daily range): BP systolic 121–149; BP diastolic 78–102; PULSE 67–84; RESP 18–77; TEMP 36.6–37; O2SAT 94–99
[2019-03-04 07:24] LABS: Chloride 102 mmol/L (98-107)
[2019-03-04] MEDS: Venlafaxine 50 MG TAB 25 MG PO (07:41)
[2019-03-04] MEDS: buPROPion-XL 150 MG TABCR 300 MG PO (07:42)
[2019-03-04] MEDS: Gabapentin 300 MG CAP PO ×3 (07:42→20:29)
[2019-03-04] MEDS: Multivitamin TAB 1 TAB PO (07:42)
[2019-03-04] MEDS: hydroCHLOROthiazide 25 MG TAB PO ×2 (07:42→20:29)
[2019-03-04] MEDS: Omeprazole 20 MG CAPCR 40 MG PO (07:42)
[2019-03-04] MEDS: Potassium Chloride 20 MEQ TABCR PO ×2 (07:42→08:04)
[2019-03-04] MEDS: Carvedilol 25 MG TAB PO ×2 (07:42→20:29)
[2019-03-04 07:50] LABS: Anion Gap 9.3 mmol/L (3-11); BUN 15 mg/dL (7-18); CO2 29.7 mmol/L (21.0-32.0); CREATININE 0.86 mg/dL (0.55-1.02); Calcium 8.6 mg/dL (8.5-10.1); Glucose 111 mg/dL (74-106); NT-proBNP 34 pg/mL (<300); Sodium 141 mmol/L (136-145)
[2019-03-04] MEDS: POTASSIUM CHLORIDE 20 MEQ/100 ML BAG 50 MEQ IVPB ×2 (08:55→11:00)
[2019-03-04] MEDS: amLODIPine 5 MG TAB 10 MG PO (11:00)
--- NOTE | 2019-03-04 14:23 | CHAPLAIN ---
Monisha was resting in bed when I visited. She said she was admitted from the infusion room when her potassium got too low for outpatient infusions. She has been in touch with her kids on the phone and with Face Time. Her daughter has been missing her, Monisha said. She asked for some books and said she is working to make the best of it while she is here.
--- NOTE | 2019-03-04 14:50 | PHARADMIT ---
Admission Pharmacy Clinical Review REFRACTORY HYPOKALEMIA Code Status Full Code Current Weight 118.9 kg Renally Cleared and Narrow Therapeutic Index Meds CrCl~71ml/min QTc Value / Action Taken n/a BP Control, Fever BP 141/90 Afebrile Electrolytes reviewed K+ 3.0, Mag 2.0 K+ 40meq po BID, 20meq IV x2 runs today DVT Prophylaxis none-patient is ambulating, middle of menses Opiate Usage / Scheduled Bowel Regimen Ordered n/a Plt/SCr for Heparin / Enoxaparin Plt 428 SCr 0.86 INR for Warfarin H/H stable, WBC/Bands H/H 13.7/39.6 WBC 10.41 Antibiotic appropriateness n/a Cultures and Sensitivities stool sendouts: pending Surgical ABX d/c within 24 hr DM control / Insulin Dosing BG 111 Heart Failure (Check EF%) (ERROL's, B-Block, Diuretics) Amlodipine, Coreg, HCTZ IV to PO Switch Home Meds Reviewed Lisinopril depletes Potassium MaxOx causes diarrhea Sertraline-20% rate of diarrhea ADR Topamax-2 to 11% rate of diarrhea ADR Home Meds Not Ordered Fluticasone, Levothyroxine (not ordered TSH level high), Lisinopril, Mag Ox, Melatonin, Prochlorperazine, Sertaline, Topamax Comments Pt reports frequent/chronic diarrhea at home, but none while admitted at this time Balancing fluid/edema, dehydration, electrolytes, on Telemetry Usually treated via infusion room, but K+ on admission was 2.6 Nutrition consult
--- NOTE | 2019-03-04 14:57 | W.NUTCONSULT ---
Date of service: 03/04/19 Time of Service: 14:57 Nutritional Consult ASSESSMENT: Appreciate nutrition consult Monisha Das who is here low potassium secondary to chronic diarrhea and possible acidic/alkaline imbalance in the kidney. Animal protein is a way to increase the acidic environment and this is what is recommended at this time. NUTRITIONAL DIAGNOSIS: Low potassium secondary to metabolic changes in otherwise well nourished female with healthy food choices INTERVENTION: Discussed meat preferences and ways to increase her portions and frequency of consumption. She agrees to make up meat salads for snacks rather than to have fruit as her snack. In addition, she will include chicken and fish at both lunch an supper, and attempt meat at breakfast. MONITORING AND EVALUATION: Will encourage high protein intake with meals here. We will be in touch in follow up to assess her ability to increase meats in her daily diet. Time Spent in Nutritional Counseling and Treatment: 10 minutes face to face
--- NOTE | 2019-03-04 16:09 | INITIAL_ITS ---
- If Service Date Differs Date of service: 03/04/19 Time of Service: 16:09 Care Management Initial Assess REASON FOR HOSPITALIZATION:: Hypokalemia PAST MEDICAL HISTORY/PAST SURGICAL HISTORY:: alopecia, anemia, dehydration,GERD, thyroiditis, Hx of adenomatous colonic polyps, hypertension, hypokalemia, IBS, migraine headaches, rectal hemorrhage, reflux esophagitis, sustained VT. Surgical history: C/S. colonoscopy/EGD. tonsillectomy. PREVIOUS FUNCTIONAL STATUS/SOCIAL/FAMILY SUPPORTS:: Monisha lives in a single family home in [place] with her partner of 6 years, Jayne. Between them they haave 2 girls and 2 boys livinhg with them (all teenagers) and Monisha has twin boys in their twenties who live in the community. 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 Monisha is independent at baseline and receives no community supports. CURRENT FUNCTIONAL STATUS:: Monisha was sitting up in bed when CM met with her. She was open and friendly and readily engaged in conversation. She shared some of her recent experiences with health issues and a bit about her family and supports. She is interested in completing advanced directives and already uses the [employer] Portal. ADVANCE DIRECTIVES:: Not yet but provided with a copy of the [place] AD forms at her request. Has patient been provided with information about the portal?: Yes Did the patient sign up for the portal?: Yes (previously) CODE STATUS:: Full Code INSURANCE COVERAGE / FINANCIAL ISSUES:: LEE/WALI Morrell. New plan, does not have careds yet. CURRENT HOME/COMMUNITY SERVICES/EQUIPMENT:: none PRIMARY CARE PHYSICIAN:: Huyen Phipps POTENTIAL DISCHARGE NEEDS:: follow up with PCP and discharge plan of care. PATIENT/FAMILY EDUCATION NEEDS:: Discharge plan, limitations, folllow up plan, Ask Me Three. ANTICIPATED BARRIERS TO DISCHARGE:: none TRANSPORTATION:: via private vehicle with family when ready PLAN:: Monisha will be discharged home with no new services. She will follow up with her PCP and discharge plan of care. She will resume medication administration at the infusion center if indicated. CM will continue to provide support to patient, family and discharge planning process.
[2019-03-04] MEDS: Loperamide 2 MG CAP PO (16:46)
--- NOTE | 2019-03-04 17:30 | PGE_ITS ---
Date of Service Date of service: 03/04/19 Time of Service: 17:30 Assessment and Plan Assessment and plan (1) Hypokalemia: Status: Acute Assessment and plan: In setting of diarrhea, chronic HCTZ and PPI therapy. Improved with aggressive repletion. Diarrhea seems to be the big hammer driver on this admission - encouraged loperamide use after each liquid BM. Will keep on telemetry tonight. Recheck Labs in am. (2) Hypomagnesemia: Status: Acute Assessment and plan: Repleted. Could be due to PPI. Recheck in am. (3) Diarrhea: Status: Acute Assessment and plan: The underlying cause for this is not clear, but it is a chronic issue, previously seen at [facility]. ?IBS. Treat with loperamide. Will need follow up as outpatient. Met with nutrition today. Unless the patient starts taking measures to stop diarrhea, her hypokalemic episodes will recur and she will require repeated hospitalizations which are likely preventable. We spoke about this. (4) Essential hypertension: Status: Acute Assessment and plan: Continue coreg to 25 mg PO BID. Continue norvasc, HCTZ. ProBNP was normal - I do not think that the patient is actually clinically fluid overloaded - I do not see a benefit in inpatient diuresis at this time, as was hypothesized by cardiology as outpatient. (5) Dehydration: Status: Resolved Assessment and plan: Abstain from IVF. (6) DVT prophylaxis: Status: Acute Assessment and plan: Lovenox (7) Discharge planning issues: Status: Acute Assessment and plan: Full code Likely discharge home tomorrow Subjective Subjective Interval history since last seen: Feels better - but still tired. Denies dizziness, chest pain, shortness of breath, nausea, vomiting. Reports a feeling of fluttering in her chest earlier. Telemetry did not reveal any arrhythmias so far. Had diarrhea x 1 today. Exam Narrative Exam Narrative: General: Very pleasant middle-aged female, sitting at the side of the bed, mildly anxious HEENT: Atraumatic, normocephalic (wearing hair prosthesis), EOMI, MMM Cardiovascular: RRR, +quiet FRANK Lungs: CTAB Gastrointestinal: Abdomen is soft, nontender, nondistended Extremities: +1 edema BLE's, no c/c BLE's, Objective Objective Clinical Data: Abnormal lab results 03/03/19 03/04/19 Range/Units 17:25 06:30 Plt Count 428 H (130-400) x1000/uL Absolute Lymphocytes 3.59 H (1.2-3.4) k/cumm Absolute Monocytes 0.86 H (0.11-0.7) k/cumm Potassium 3.0 L (3.5-5.1) mmol/L Glucose 111 H (74-106) mg/dL Vital Signs Temperature 37.0 C 03/04/19 16:21 Temperature Source Tympanic 03/04/19 16:21 Pulse 78 03/04/19 16:21 Pulse Rhythm Regular 03/04/19 07:31 Respiratory Rate 18 03/04/19 16:21 Respiratory Effort Non-Labored 03/04/19 07:31 Respiratory Depth Normal 03/04/19 07:31 Respiratory Pattern Normal 03/04/19 07:31 Blood Pressure 122/84 03/04/19 16:21 Pulse Oximetry 97 03/04/19 16:21 Oxygen Delivery Method Room Air 03/04/19 16:21 Oxygen Flow Rate 0 03/04/19 16:21 Pain Level 0 03/04/19 16:21 Comment 03/03/19 16:00 Intake & Output 03/03/19 03/04/19 03/04/19 23:59 11:59 23:59 Intake Total 700 / 700 340 / 1100 760 / 1100 Output Total 900 / 2300 1400 / 2300 Balance 700 / 700 -560 / -1200 -640 / -1200 Weight 117.934 kg 118.9 kg Intake: IV 450 / 450 100 / 120 20 / 120 Oral 250 / 250 240 / 980 740 / 980 Output: Urine 900 / 2300 1400 / 2300 Other: Urine Color Yellow Yellow Urine Appearance Clear Clear Sediment Urine Odor Normal Normal Comment pt reports having her menses at this time Stool Size Large Stool Characteristics Soft Formed Brown Voiding Methods Toilet Toilet Laboratory Results WBC 10.41 k/cumm (4.4-10.8) 03/03/19 17:25 RBC 4.76 m/cumm (4.00-5.20) 03/03/19 17:25 Hgb 13.7 g/dL (12.0-15.5) 03/03/19 17:25 Hct 39.6 % (36.0-46.0) 03/03/19 17:25 MCV 83.2 fL (80-95) 03/03/19 17:25 MCH 28.8 pg (27.0-33.0) 03/03/19 17:25 MCHC 34.6 g/dL (32.0-36.0) 03/03/19 17:25 RDW 13.8 % (11.7-14.6) 03/03/19 17:25 Plt Count 428 x1000/uL (130-400) H 03/03/19 17:25 MPV 9.0 fL (8.0-11.0) 03/03/19 17:25 Immature Gran % 0.1 03/03/19 17:25 Neutrophils % 53.5 03/03/19 17:25 Lymphocytes % 34.5 03/03/19 17:25 Monocytes % 8.3 03/03/19 17:25 Eosinophils % 3.2 03/03/19 17:25 Basophils % 0.4 03/03/19 17:25 Absolute Neutrophils 5.58 k/cumm (1.2-6.7) 03/03/19 17:25 Absolute Lymphocytes 3.59 k/cumm (1.2-3.4) H 03/03/19 17:25 Absolute Monocytes 0.86 k/cumm (0.11-0.7) H 03/03/19 17:25 Absolute Eosinophils 0.33 k/cumm (0.0-0.7) 03/03/19 17:25 Absolute Basophils 0.04 k/cumm (0.0-0.2) 03/03/19 17:25 Parasite Present Cancelled 03/04/19 14:45 Sodium 141 mmol/L (136-145) 03/04/19 06:30 Potassium 3.0 mmol/L (3.5-5.1) L 03/04/19 06:30 Chloride 102 mmol/L (98-107) 03/04/19 06:30 Carbon Dioxide 29.7 mmol/L (21.0-32.0) 03/04/19 06:30 Anion Gap 9.3 mmol/L (3-11) 03/04/19 06:30 BUN 15 mg/dL (7-18) 03/04/19 06:30 Creatinine 0.86 mg/dL (0.55-1.02) 03/04/19 06:30 Estimated GFR/1.73 m2 >= 60.00 (mL/min/1.73m2) 03/04/19 06:30 Glucose 111 mg/dL (74-106) H 03/04/19 06:30 Calcium 8.6 mg/dL (8.5-10.1) 03/04/19 06:30 Magnesium 2.0 mg/dL (1.8-2.4) 03/04/19 06:30 NT-Pro-B Natriuret Pep 34 pg/mL (<300) 03/04/19 06:30 Stool Description Cancelled 03/04/19 14:45
[2019-03-04] MEDS: Potassium Chloride 20 MEQ TABCR 40 MEQ PO (20:29)
[2019-03-04] MEDS: Pramipexole 0.25 MG TAB PO (21:55)
[2019-03-05 00:06] VITALS: BP 159/98; PULSE 72; RESP 17; TEMP 36.7; O2SAT 98
[2019-03-05 04:18] VITALS: BP 130/80; PULSE 78; RESP 19; TEMP 36.7; O2SAT 94
[2019-03-05 06:52] LABS: Anion Gap 9.2 mmol/L (3-11); BUN 16 mg/dL (7-18); CO2 30.8 mmol/L (21.0-32.0); CREATININE 0.85 mg/dL (0.55-1.02); Calcium 8.8 mg/dL (8.5-10.1); Chloride 102 mmol/L (98-107); Glucose 100 mg/dL (74-106); Magnesium 1.8 mg/dL (1.8-2.4); Potassium 3.2 mmol/L (3.5-5.1); Sodium 142 mmol/L (136-145)
[2019-03-05 07:15] VITALS: PULSE 98
[2019-03-05 07:50] VITALS: BP 145/95; PULSE 99; RESP 16; TEMP 36.6; O2SAT 99
[2019-03-05] MEDS: buPROPion-XL 150 MG TABCR 300 MG PO (08:05)
[2019-03-05] MEDS: hydroCHLOROthiazide 25 MG TAB PO (08:05)
[2019-03-05] MEDS: Gabapentin 300 MG CAP PO ×2 (08:05→13:28)
[2019-03-05] MEDS: Multivitamin TAB 1 TAB PO (08:05)
[2019-03-05] MEDS: Potassium Chloride 20 MEQ TABCR 40 MEQ PO ×2 (08:05→16:34)
[2019-03-05] MEDS: Carvedilol 25 MG TAB PO (08:05)
[2019-03-05] MEDS: amLODIPine 5 MG TAB 10 MG PO (08:05)
[2019-03-05] MEDS: Omeprazole 20 MG CAPCR 40 MG PO (08:05)
[2019-03-05] MEDS: Venlafaxine 50 MG TAB 25 MG PO (08:06)
[2019-03-05] MEDS: POTASSIUM CHLORIDE 20 MEQ/100 ML BAG 50 MEQ IVPB ×2 (09:20→11:21)
[2019-03-05] MEDS: MAGNESIUM SULFATE 4 GM/100 ML BAG IVPB (09:20)
[2019-03-05 11:21] LABS: Campylobacter PCR Negative (Negative); Salmonella PCR Negative (Negative); Shiga Toxin PCR Negative (Negative); Shigella/Enteroinvasive Ecoli Negative (Negative)
--- NOTE | 2019-03-05 14:39 | CHAPLAIN ---
Monisha said she'll be waiting on test results this afternoon to see if she'll be discharged today. She was working on her Advance Directives when I visited. She said she is feeling some better, and continues to try and make the best of it. Her daughter visited last night.
[2019-03-05 15:42] VITALS: BP 122/81; PULSE 78; RESP 18; TEMP 36.8; O2SAT 97
[2019-03-05 16:12] LABS: Anion Gap 5.6 mmol/L (3-11); BUN 15 mg/dL (7-18); CO2 31.4 mmol/L (21.0-32.0); CREATININE 0.74 mg/dL (0.55-1.02); Calcium 9.2 mg/dL (8.5-10.1); Chloride 103 mmol/L (98-107); Glucose 106 mg/dL (74-106); Potassium 3.4 mmol/L (3.5-5.1); Sodium 140 mmol/L (136-145)
--- NOTE | 2019-03-05 16:18 | PDOC.CMPRO ---
- If Service Date Differs Date of service: 03/05/19 Time of Service: 16:18 Care Management Progress Note S/O: Monisha was sitting up in bed when CM met with her. She had requested assistance with the completion of her advanced directives which CM provided. The [place] AD forms were completed, copied and faxed to the [facility].Monisha anticipates being discharged tomorrow. Several calls have been placed to Monisha's new employer attempting to secure information regarding her new insurance coverage. CM awaiting reply. A: Monisha is a 48 year old woman admitted on 03/03/19 with hypokalemia. P:Monisha will be discharged home with no new services. She will follow up with her PCP and discharge plan of care. She will resume medication administration at the infusion center if indicated. CM will continue to provide support to patient, family and discharge planning process.
--- NOTE | 2019-03-05 16:21 | DSE_ITS ---
Date of service: 03/05/19 Time of Service: 16:22 DS: Diagnosis Discharge Diagnosis (1) Hypokalemia: Status: Acute (2) Hypomagnesemia: Status: Acute (3) Diarrhea: Status: Acute (4) Essential hypertension: Status: Acute (5) Dehydration: Status: Resolved Discharge Plan Disposition Patient Disposition: HOME Condition: Good Discharge Details Reason For Visit: REFRACTORY HYPOKALEMIA AND HYPOMAGNESEMIA Admit Date/Time: 03/03/19 15:32 Admit Provider: Jeri Contreras Attending Provider: Jeri Contreras [facility] Hospital Course: Ms Das is a 48 year old female with PMHx of hypertension, on multiple medications including HCTZ, as well as h/o refractory hypokalemia, hypomagnesemia, and chronic diarrhea, who was observed on [facility] hospitalist service from 03/03/19 until 03/05/19 for hypokalemia of 2.6 on presentation as well as hypomagnesemia, symptomatic. Both of these electrolyte abnormalities have been looked at by endocrinology and nephrology at [facility] as well as [facility]. The patient requires the use of diuretics, because without them she goes into pulmonary edema, and she is intolerant of potassium sparing diuretics. She did have watery diarrhea at home - which she gets frequently and which has previously been investigated by [facility] - but was not taking loperamide. Her stool studies are pending at the time, but were previously negative. Endocrinology has previously ruled out a neuroendocrine process. Essentially, the patient was treated with IV and oral repletion of her potassium and IV magnesium. She did come to us dehydrated as well, so her HCTZ was held for one dose. With this, her potassium and magnesium improved - her potassium is 3.4 on discharge. We feel that the primary reason the hypokalemia became this severe is because the patient was not taking her loperamide. The reasons for this are not clear - the patient knows that diarrhea causes hypokalemia. She was encouraged to take loperamide on this admission and states she will. Her diarrhea has resolved. She is medically stable for discharge home today with an increased dose of potassium (40 MEQ PO BID). She will need labs in 48 hours to assess the potassium and magnesium levels. She has met with a railway switchman to discuss the increase in animal protein intake - the recommendation was for 6 oz/day. The patient is being referred to [facility] on discharge. Home Meds and New Rx's Prescriptions: New hydrocortisone 2.5 % Cream 1 applic topical TID Qty: 30 RF: 0 loperamide 2 mg Capsule 2 mg PO QLOOSE PRNQty: 0 RF: 0 Continued prochlorperazine maleate 5 mg tablet 5 mg PO Q8H PRN Qty: 30 RF: 3 ondansetron HCl [Zofran] 4 mg tablet 4 mg PO Q8H PRNRF: 0 sumatriptan succinate 100 mg tablet See Rx Instructions PO .COMPLEX PRNRF: 0 hydrochlorothiazide 50 mg tablet 25 mg PO BID RF: 0 carvedilol 25 mg tablet 25 mg PO BID Qty: 90 RF: 6 eih-tom-Sr-fts-Ot-byc-carbohyd 320-190-70 mg powder in packet 2 packet PO Q2H Qty: 8 RF: 3 multivitamin [Daily Multi-Vitamin] 1 EACH tablet 1 ea PO DAILY RF: 0 hair prosthesis Miscellaneous DAILY Qty: 1 RF: 1 bupropion HCl [Wellbutrin XL] 300 mg tablet extended release 24 hr 300 mg PO DAILY Qty: 90 RF: 3 omeprazole 40 mg capsule,delayed release(DR/EC) 40 mg PO DAILY Qty: 90 RF: 3 venlafaxine 25 mg tablet 25 mg PO DAILY Qty: 30 RF: 1 gabapentin 300 mg capsule 300 mg PO TID Qty: 270 RF: 3 amlodipine 5 mg tablet 10 mg PO DAILY Qty: 60 RF: 1 pramipexole [Mirapex] 0.25 mg tablet 0.25 mg PO HS RF: 0 melatonin 10 mg Capsule 10 mg PO HS PRNRF: 0 potassium chloride 20 mEq tablet,ER particles/crystals 40 meq PO BID Qty: 120 RF: 0 Discontinued loperamide [Imodium A-D] 1 MG/7.5 ML liquid 1 mg PO Q48H PRNRF: 0 potassium chloride 20 mEq tablet,ER particles/crystals 20 meq PO BID Qty: 60 RF: 0 Discharge Instructions Instructions: Loperamide (By mouth), Irritable Bowel Syndrome (DC) Additional Instructions: Return to the hospital with any fever, bleeding, chest pain, or shortness of breath. Bloodwork on 03/07/19. Referrals: GASTROENTEROLOGY,[facility] [OTHER] - Huyen Ramon DO [Primary Care Provider] - Activity:: Activity as Tolerated Equipment/Supplies:: No Equipment Needed Diet:: increase animal protein to 6 oz/day Discharge Orders Discharge Orders: Discharge Order (Routine); Ordered 03/05/19 Ordered By: Jeri Contreras Other Ambulatory Orders: Basic Metabolic Panel (Routine) Timeframe: 2 Days Facility: [facility] - Location: Laboratory Outpatient Ordered By: Jeri Contreras Magnesium (Routine) Timeframe: 2 Days Facility: [facility] - Location: Laboratory Outpatient Ordered By: Jeri Contreras DS: Summary Status at Discharge Functional status at discharge: independent ambulation Overall status at discharge: patient is back to baseline Mental Status: mental status grossly normal Speech and Movement: speech and movement normal Mood: congruent mood Affect: normal affect Exam Narrative Exam Narrative: General: Very pleasant middle-aged female, sitting at the side of the bed, mildly anxious HEENT: Atraumatic, normocephalic (wearing hair prosthesis), EOMI, MMM Cardiovascular: RRR, +quiet FRANK Lungs: CTAB Gastrointestinal: Abdomen is soft, nontender, nondistended Extremities: +1 edema BLE's, mild rash with evidence of scratching on BLE's where the TEDs were; no c/c BLE's, Psych Mental Status: mental status grossly normal Speech and Movement: speech and movement normal Mood: congruent mood Affect: normal affect DS: Data Vitals/I&O Vitals and I&O: Vital Signs Temperature 36.8 C 03/05/19 15:42 Temperature Source Tympanic 03/05/19 15:42 Pulse 78 03/05/19 15:42 Pulse Rhythm Regular 03/05/19 08:08 Respiratory Rate 18 03/05/19 15:42 Respiratory Effort 03/05/19 08:08 Respiratory Depth Normal 03/05/19 08:08 Respiratory Pattern Normal 03/05/19 08:08 Blood Pressure 122/81 03/05/19 15:42 Pulse Oximetry 97 03/05/19 15:42 Oxygen Delivery Method Room Air 03/05/19 15:42 Oxygen Flow Rate 0 03/05/19 15:42 Pain Level 0 03/05/19 15:42 Comment 03/05/19 00:06 Intake & Output 03/04/19 03/05/19 03/05/19 23:59 11:59 23:59 Intake Total 780 / 1120 420 / 420 Output Total 1400 / 2300 1100 / 2250 1150 / 2250 Balance -620 / -1180 -680 / -1830 -1150 / -1830 Weight 120.1 kg Intake: IV 40 / 140 100 / 100 Oral 740 / 980 320 / 320 Output: Urine 1400 / 2300 1100 / 2250 1150 / 2250 Other: Urine Color Yellow Yellow Yellow Urine Appearance Sediment Clear Clear Urine Odor Normal Normal None Comment patient toilets herself independently and uses it frequently Stool Size Large Moderate Stool Characteristics Soft Soft Formed Formed Brown Brown Voiding Methods Toilet Toilet Data Completed and Pending Labs on day of discharge: Labs from last 24 hours 03/05/19 03/05/19 03/04/19 14:35 06:08 14:45 Parasite Present Pending Sodium 140 142 Potassium 3.4 L 3.2 L Chloride 103 102 Carbon Dioxide 31.4 30.8 Anion Gap 5.6 9.2 BUN 15 16 Creatinine 0.74 0.85 Estimated GFR/1.73 m2 >= 60.00 >= 60.00 Glucose 106 100 Calcium 9.2 8.8 Magnesium 1.8 Stool Description Not Applicable Stool Campylobacter PCR Stool Salmonella PCR Stool Shigella PCR Stool Ova & Parasites See below Shiga Toxin (PCR) 03/04/19 03/04/19 14:45 14:45 Parasite Present Cancelled Sodium Potassium Chloride Carbon Dioxide Anion Gap BUN Creatinine Estimated GFR/1.73 m2 Glucose Calcium Magnesium Stool Description Cancelled Stool Campylobacter PCR Negative Stool Salmonella PCR Negative Stool Shigella PCR Negative Stool Ova & Parasites Shiga Toxin (PCR) Negative [facility] Social History Smoking/Tobacco Use Status: Never Alcohol Intake: current Alcohol Intake frequency: holidays/special occasions only Drug use: Never Substance use type: does not use Adopted: No Caregiver/Support person: No Household members: significant other and other Details: Partner - Jayne, children Housing: house Number of Children: 4 number of grandchildren: 0 Communication Needs: Corrective Lenses Education Level: college 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, 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 Pets and animals: Yes Pets and animals: cat(s) and dog(s) What is your relationship status?: living with partner Panel score (0-1 are the most socially isolated patients): 1 What type of physical activity do you participate in: walking Duration: 15-30 minutes/day Frequency: 3-4 times per week Seatbelt use: always Working smoke detector in home: Yes Fire extinguisher in home: Yes Carbon monox detector in home: Yes Firearms in home: No Do you feel safe at home: Yes Do you feel safe in your relationship?: Yes Female Reproductive History Menstrual control method: permanent sterilization History History 3 Para 4 Hx # Term Pregnancies Multiple births 1 Hx # Pregnancies Ectopic pregnancies AB induced Hx Number of Living Children AB spontaneous
[2019-03-05 16:53] VITALS: PULSE 92
--- NOTE | 2019-03-05 17:12 | PDOC.CMDIS ---
- If Service Date Differs Date of service: 03/05/19 Time of Service: 17:12 LACE Index Scoring Tool - Questions: Length of Stay (in days): 2 Acuity (Admit via E.D.?): No E.D. Visits: 0 - Answers: Total Score: 2 Risk of Readmission: Low Risk Care Management Discharge Reason for Hospitalization: Hypokalemia Discharge Plan: Monisha will be discharged home with no new services. She will follow up with her PCP and discharge plan of care. She will resume medication administration at the infusion center if indicated. Monisha will drive herself home via private vehicle. Patient/Family Education Needs: Discharge plan, limitations, follow up plan, Ask Me Three.
[2019-03-13 05:26] LABS: Chymotrypsin, Stool 27.9 U/g (2.3-51.4)
== END 2019-03-05 17:35 | disposition home or self-care (01) ==
PROVIDERS: Admitting Provider Internal Medicine; PCP Student in an Organized Health Care Education/Training Program; Visit Provider Internal Medicine
DX: E87.6 Hypokalemia (principal); E83.42 Hypomagnesemia; E86.0 Dehydration; R19.7 Diarrhea, unspecified; I10 Essential (primary) hypertension; Z71.3 Dietary counseling and surveillance
CPT/HCPCS: 36415; 80048; 84311; 87505; 99217; 99220; 99225; 82710; 83735; 83880; 85025; 87177; G0378; J3475; J3480

== ENCOUNTER 2019-03-10 07:56 | Outpatient (CLI) | payer BC, SELFPAY ==
[2019-03-10 08:51] LABS: Anion Gap 10.2 mmol/L (3-11); BUN 20 mg/dL (7-18); CO2 28.8 mmol/L (21.0-32.0); Calcium 8.9 mg/dL (8.5-10.1); Chloride 100 mmol/L (98-107); Estimated GFR 58.93 (mL/min/1.73m2); Glucose 147 mg/dL (74-106); Magnesium 1.7 mg/dL (1.8-2.4); Sodium 139 mmol/L (136-145)
[2019-03-10 09:04] LABS: Potassium 2.8 mmol/L (3.5-5.1)
== END 2019-03-10 08:16 ==
PROVIDERS: PCP Student in an Organized Health Care Education/Training Program; Visit Provider Student in an Organized Health Care Education/Training Program
DX: E87.6 Hypokalemia (principal); R53.83 Other fatigue
CPT/HCPCS: 36415; 80048; 83735

== ENCOUNTER 2019-03-12 07:36 | Outpatient (CLI) | payer BC, SELFPAY ==
[2019-03-12 08:21] LABS: Anion Gap 10.9 mmol/L (3-11); BUN 20 mg/dL (7-18); CO2 27.1 mmol/L (21.0-32.0); CREATININE 0.97 mg/dL (0.55-1.02); Calcium 9.1 mg/dL (8.5-10.1); Chloride 102 mmol/L (98-107); Glucose 144 mg/dL (74-106); Magnesium 1.7 mg/dL (1.8-2.4); Sodium 140 mmol/L (136-145)
== END 2019-03-12 07:56 ==
PROVIDERS: PCP Student in an Organized Health Care Education/Training Program; Visit Provider Student in an Organized Health Care Education/Training Program
DX: E87.6 Hypokalemia (principal); R53.83 Other fatigue
CPT/HCPCS: 36415; 80048; 83735

== ENCOUNTER 2019-03-12 13:47 | Observation (INO) | payer BC, SELFPAY ==
[2019-03-12] VITALS (8 sets, daily range): BP systolic 130–152; BP diastolic 74–91; PULSE 66–78; RESP 16–18; TEMP 36.6–37.1; O2SAT 97–99
[2019-03-12 16:37] LABS: Magnesium 2.5 mg/dL (1.8-2.4)
[2019-03-12] MEDS: hydrALAZINE 10 MG TAB PO (16:42)
[2019-03-12 17:11] LABS: Potassium 2.8 mmol/L (3.5-5.1)
[2019-03-12] MEDS: Gabapentin 300 MG CAP PO ×2 (17:15→20:25)
--- NOTE | 2019-03-12 18:16 | HPE_ITS ---
Date of service: 03/12/19 Time of Service: 18:16 Assessment and Plan Assessment and plan (1) Hypokalemia: Status: Acute Assessment and plan: Persistent potassium depletion.'s unclear where most of her losses are coming from. She is not troubled by diarrhea at this time and yet her potassium level seems to drop precipitously. We will give additional potassium replacement tonight and recheck level. Were holding off on a Lasix infusion for her fluid overload because of continued low potassium levels. We will monitor her on telemetry. (2) Hypomagnesemia: Status: Acute Assessment and plan: Her magnesium level came up nicely with today's replacement. We will hold on further magnesium replacement and monitor her level. (3) Diarrhea: Status: Acute Assessment and plan: Diarrhea is intermittent. Is more associated with her menses. Will monitor I's and O's closely. (4) Discharge planning issues: Status: Acute Assessment and plan: We will discuss her case with cardiology. There is been discussion of trying to diuresis her aggressively and get tighter blood pressure control to see if that will improve her electrolyte issue. We will discuss her case with general surgery regarding a port. History of Present Illness History of Present Illness Chief Complaint: Electrolyte abnormalities/diarrhea Narrative: This is a 48-year-old woman with electrolyte wasting syndrome of unknown etiology. She has been coming in for infusions of electrolyte replacements on a regular basis. Despite oral and IV replacement of potassium and magnesium her levels have not been maintained in the normal range. She is been went out symptoms other than diarrhea which seems to be more frequent around the time of her menses. Her menses have been coming about every 10 days recently during which time she will have 4 bowel movements a day. She has had a number of manipulations of her medications recently. She is been to [facility] for this problem and their only recommendation was to increase animal protein to provide more ammonia and change her acid-base balance. She has been troubled by pulmonary edema in the past. She has experienced a significant weight gain in the last 2 months. Review of Systems Narrative: Her weight was around 239 pounds back in December 2018. Her weight has gone up about 21 pounds since that time. She overall feels fine. She is not having palpitations or chest pain. She is not currently having problems with diarrhea. Her menses have become more irregular. No menses September through December, now she gets her menses about every 10 days and there is diarrhea associated with these about 4 times a day. [facility] Medical History Abnormal serum creatinine level (Acute 07/2018) Serious Creatinine elevation, with resolution between episodes of dehydration .. Alopecia Anemia Dehydration (Inactive ~08/21/18) Several episodes now .. She can almost gauge her K levels based on mm weakness. [ ] BMP [ ] IVF-KCl Bolus-K have helped with hypokalemia in between bouts of diarrhea/dehydration when IVF not needed. 09/2018, ik Depression GERD (gastroesophageal reflux disease) Marylou's thyroiditis Hx of adenomatous colonic polyps Hypertension Hypokalemia (Acute 11/07/16) Chronic, possible 2' IBS/Diarrhea. Continued despite GI improvements, albeit improved. Trial Eplerenone, to be followed by HCTZ decrease. 10/09/18 Intermittent improvement, but unsteady and unpredictable .. Monisha seems unable to maintain her own K levels WNL w/o bolus/infusions at this time. Unable to tolerate K-sparing diuretics. Cont to research, evaluate, consult .. 09/2018, ik Irritable bowel syndrome diarrhea predominant Migraine headache with aura (Chronic) DR. VALDEZ 08/29/11 ExactCost Vertigo and/or pain Preeclampsia (Acute) Rectal hemorrhage (Inactive 03/02/15) Reflux esophagitis Sustained VT (ventricular tachycardia) (Acute) during hypokalemia episode Family History Mother Pulmonary hypertension Heart disease valve replacement Father Prostate cancer Essential hypertension Parkinsons Sister Uterine cancer Brother No problems noted. 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 Pets and animals: Yes Pets and animals: cat(s) and dog(s) What is your relationship status?: living with partner Panel score (0-1 are the most socially isolated patients): 1 What type of physical activity do you participate in: walking Duration: 15-30 minutes/day Frequency: 3-4 times per week Seatbelt use: always Working smoke detector in home: Yes Fire extinguisher in home: Yes Carbon monox detector in home: Yes Firearms in home: No Do you feel safe at home: Yes Do you feel safe in your relationship?: Yes Female Reproductive History Menstrual control method: permanent sterilization History History 3 Para 4 Hx # Term Pregnancies Multiple births 1 Hx # Pregnancies Ectopic pregnancies AB induced Hx Number of Living Children AB spontaneous Meds Home Medications and Allergies Home Medications Medication Instructions Recorded Confirmed Type multivitamin [Daily Multi-Vitamin] 1 ea PO DAILY 07/22/14 03/03/19 History Hair Prosthesis u MISCELLANEOUS DAILY #1 u 05/19/15 11/29/18 Clinic prochlorperazine maleate 5 mg 5 mg PO Q8H PRN #30 tab-cap 03/04/18 03/12/19 Rx tablet bupropion HCl 300 mg 24 hr tablet, 300 mg PO DAILY #90 tab 05/15/18 03/12/19 Rx extended release omeprazole 40 mg capsule,delayed 40 mg PO DAILY #90 tab 09/05/18 03/12/19 Rx release venlafaxine 25 mg tablet 25 mg PO DAILY #30 tab 01/21/19 03/12/19 Rx gabapentin 300 mg capsule 300 mg PO TID #270 tab-cap 01/23/19 03/12/19 Rx hydrochlorothiazide 50 mg tablet 25 mg PO BID 01/28/19 03/12/19 History ondansetron HCl 4 mg tablet 4 mg PO Q8H PRN tab 01/28/19 03/12/19 History sumatriptan succinate 100 mg tablet See Rx Instructions PO .COMPLEX 01/28/19 1 05/13/18 History PRN tab Na 320 mg-K 190 mg-Cl 70 2 packet PO Q2H #8 each 02/14/19 03/03/19 Rx cq-oskxjhi-Kb-Mg-carbohyd oral powder packet carvedilol 25 mg tablet 25 mg PO BID #90 tab 02/26/19 03/12/19 Rx melatonin 10 mg PO HS PRN 03/03/19 03/03/19 History pramipexole [Mirapex] 0.25 mg PO HS 03/03/19 03/12/19 History hydrocortisone 1 applic TOPICAL TID #30 gm 03/05/19 03/12/19 Rx loperamide 2 mg PO QLOOSE PRN #0 cap 03/05/19 03/12/19 Rx potassium chloride 40 meq PO BID #120 tab 03/05/19 03/12/19 Rx amlodipine 5 mg tablet 10 mg PO DAILY #60 tab 03/08/19 03/12/19 Rx hydralazine 10 mg tablet 10 mg PO QID #30 tab 03/08/19 03/12/19 Rx Allergies Allergy/AdvReac Type Severity Reaction Status Date / Time iron [From Venofer] Allergy Severe Swelling/Ed Verified 02/24/19 10:20 brandon atropine Allergy Intermediate HIVES, Verified 02/24/19 10:20 SWOLLEN spironolactone Allergy Intermediate Skin Rash Verified 02/24/19 10:20 eplerenone AdvReac Intermediate swelling; Verified 02/24/19 10:20 SOB Exam Narrative Exam Narrative: On exam she is in no apparent distress. She displays a full affect and is fully cooperative. Her lungs are completely clear on the right and left. Her heart sounds regular there is no murmur. Her abdomen is quite markedly obese but soft and nontender. No masses are appreciated. Her lower extremities do not have pitting edema. There is some adipose tissue along both legs that cause them to look more swollen. She does have an area of phlebitis along the right wrist where she had an IV recently but it looks quite self- limited. Results Imaging Additional studies: Patient had a potassium of 3.3 yesterday this morning it had dropped to 3.0 and after her electrolyte infusion today it dropped again to 2.8. Magnesium was 1.9 yesterday and dropped to 1.7 today. After her electrolyte i nfusion it came up to 2.5 Labs Result diagrams: 03/12/19 16:18 Labs: Laboratory Results - last 24 hr 03/12/19 16:18 Potassium 2.8 L* Magnesium 2.5 H Last Vital Signs Temp 36.7 C 03/12/19 16:42 Pulse 66 12/11/19 16:42 Resp 18 03/12/19 16:42 BP 130/74 03/12/19 16:42 Pulse Ox 99 03/12/19 16:42
[2019-03-12] MEDS: Potassium Chloride 20 MEQ TABCR 40 MEQ PO (20:24)
[2019-03-12] MEDS: Carvedilol 25 MG TAB PO (20:24)
[2019-03-12] MEDS: POTASSIUM CHLORIDE 20 MEQ/100 ML BAG 50 MEQ IVPB (22:00)
[2019-03-12] MEDS: Normal Saline Flush 10 ML SYR IVP (22:00)
[2019-03-12] MEDS: Pramipexole 0.25 MG TAB PO (22:01)
[2019-03-13] MEDS: POTASSIUM CHLORIDE 20 MEQ/100 ML BAG 50 MEQ IVPB ×3 (00:24→05:16)
[2019-03-13 05:03] LABS: Potassium 3.6 mmol/L (3.5-5.1)
[2019-03-13] MEDS: Normal Saline Flush 10 ML SYR IVP ×2 (06:43→07:50)
[2019-03-13 07:15] VITALS: BP 141/91; PULSE 69; PULSE 75; RESP 18; TEMP 37; O2SAT 98
[2019-03-13] MEDS: Carvedilol 25 MG TAB PO (07:49)
[2019-03-13] MEDS: Gabapentin 300 MG CAP PO ×3 (07:49→20:11)
[2019-03-13] MEDS: Triamterene 37.5/HCTZ 25 CAP PO (07:49)
[2019-03-13] MEDS: buPROPion-XL 150 MG TABCR 300 MG PO (07:49)
[2019-03-13] MEDS: amLODIPine 5 MG TAB 10 MG PO (07:50)
[2019-03-13] MEDS: Venlafaxine 50 MG TAB 25 MG PO (07:50)
[2019-03-13] MEDS: Potassium Chloride 20 MEQ TABCR 40 MEQ PO ×3 (07:50→20:10)
--- NOTE | 2019-03-13 07:58 | PHARADMIT ---
Admission Pharmacy Clinical Review ELECTROLYTE WASTING SYNDROME, HYPOKALEMIA Code Status Full Code Current Weight Wgt-119.5 kg Renally Cleared and Narrow Therapeutic Index Meds CrCl~ 63.1 mL/min Meds-OK QTc Value / Action Taken none current BP Control, Fever BP- 134/80 Tmax- 36.6C Electrolytes reviewed Na-pending K+3.6 Mag-2.5 DVT Prophylaxis None, [facility] will ask MD Opiate Usage / Scheduled Bowel Regimen Ordered No No Plt/SCr for Heparin / Enoxaparin na INR for Warfarin na H/H stable, WBC/Bands na Antibiotic appropriateness None Cultures and Sensitivities None Surgical ABX d/c within 24 hr na DM control / Insulin Dosing BG- NA Heart Failure (Check EF%) (ERROL's, B-Block, Diuretics) Norvasc, Coreg, Dyazide IV to PO Switch No Home Meds Reviewed Yes Home Meds Not Ordered HCTZ-Hold, Hydralazine, Omeprazole, m-jimbo Comments
[2019-03-13 08:20] LABS: BUN 16 mg/dL (7-18); CREATININE 0.81 mg/dL (0.55-1.02); Calcium 8.3 mg/dL (8.5-10.1); Chloride 105 mmol/L (98-107); Glucose 121 mg/dL (74-106); Magnesium 1.8 mg/dL (1.8-2.4); NT-proBNP 57 pg/mL (<300); Sodium 140 mmol/L (136-145)
--- NOTE | 2019-03-13 11:46 | W.NUTCONSULT ---
Date of service: 03/13/19 Time of Service: 11:46 Nutritional Consult ASSESSMENT: 48 year old female hospitalized for dehydration, diarrhea, hypomagnesemia, hypopotassemia with lymphedema, leg edema. Following Regular meal plan with excellent intake. BMI indicates morbid obesity. 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 Not considered at nutritional risk at this time. screen by Shana Reynolds MS, RDN MONITORING AND EVALUATION: will follow weights and po intake trends and adjust meal plan as warranted Time Spent in Nutritional Counseling and Treatment: 0 time spent face to face
[2019-03-13 12:32] VITALS: O2SAT 98
--- NOTE | 2019-03-13 14:26 | PDOC.CMIN ---
- If Service Date Differs Date of service: 03/13/19 Time of Service: 14:26 Care Management Initial Assess REASON FOR HOSPITALIZATION:: Hypokalemia PAST MEDICAL HISTORY/PAST SURGICAL HISTORY:: Medical History . Abnormal serum creatinine level (Acute 07/2018). Serious Creatinine elevation, with resolution between episodes of dehydration .. Alopecia. Anemia. Dehydration (Inactive ~08/21/18). Several episodes now .. She can almost gauge her K levels based on mm weakness. [ ] BMP [ ] IVF-KCl Bolus-K have helped with hypokalemia in between bouts of diarrhea/dehydration when IVF not needed. 09/2018, ik. Depression. GERD (gastroesophageal reflux disease). Marylou's thyroiditis. Hx of adenomatous colonic polyps. Hypertension. Hypokalemia (Acute 11/07/16). Chronic, possible 2' IBS/Diarrhea. Continued despite GI improvements, albeit improved. Trial Eplerenone, to be followed by HCTZ decrease. 10/09/18 Intermittent improvement, but unsteady and unpredictable .. Monisha seems unable to maintain her own K levels WNL w/o bolus/infusions at this time. Unable to tolerate K-sparing diuretics. Cont to research, evaluate, consult .. 09/2018, ik. Irritable bowel syndrome. diarrhea predominant. Migraine headache with aura (Chronic). DR. VALDEZ 08/29/11. dooub works. Vertigo and/or pain. Preeclampsia (Acute). Rectal hemorrhage (Inactive 03/02/15). Reflux esophagitis. Sustained VT (ventricular tachycardia) (Acute). during hypokalemia episode PREVIOUS FUNCTIONAL STATUS/SOCIAL/FAMILY SUPPORTS:: Monisha lives in a single family home in [place] with her partner of 6 years, Jayne. Between them they haave 2 girls and 2 boys livinhg with them (all teenagers) and Monisha has twin boys in their twenties who live in the community. 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 Monisha is independent at baseline and receives no community supports. CURRENT FUNCTIONAL STATUS:: Monisha was sitting up on the edge of the bed when CM met with her. She was pleasant and engaged readily in conversation. Monisha stated that she was in the infusion center yesterday and was admitted directly to the hospital when her potassium was found to be low. She stated that she feels hopeful that with the change in diuretics initiated yesterday that her chronic hypokaalemia may resolve. ADVANCE DIRECTIVES:: on file Did the patient sign up for the portal?: Yes (previously) CODE STATUS:: Full Code INSURANCE COVERAGE / FINANCIAL ISSUES:: LEE/WALI Morrell CURRENT HOME/COMMUNITY SERVICES/EQUIPMENT:: None PRIMARY CARE PHYSICIAN:: Dr. Ramon POTENTIAL DISCHARGE NEEDS:: follow up with PCP and discharge plan of care PATIENT/FAMILY EDUCATION NEEDS:: Discharge plan, limitations, follow up plan, Ask Me Three TRANSPORTATION:: via private vehicle with family PLAN:: Monisha will be discharged home with no new services. She will follow up with her PCP and discharge plan of care. CM will continue to support patient, family and discharge planning needs. Readmission - Within the Past 30 Days Yes or No: Y - Date of First Admission Date of 1st Admission: 03/03/19 - Date of this Admission Date of Admission: 03/12/19 This admission was: Direct Admit - Office Visit Since 1st Admission Have you seen your PCP in the office since discharge?: No Had an appointment Been Scheduled?: Yes Date of Scheduled Appointment: 03/21/19 - Speicalist Appointments Have you seen any other specialist since your 1st Admission?: No - I. Interview patient and/or Family Difficulty reaching your doctor or getting an office appt?: No Have you had trouble purchasing/ or taking medication?: No Have you had trouble with getting meals at home?: No Did you feel ready for discharge when you left the last time: No Why did you not feel ready for discharge?: would have preferred potassium level to be higher, but felt well physically Were services received that you thought were set up on disch: Yes Did you call your physician beore you came to the ED?: Yes (Infusion Center contacted MD ) Did your physician tell you to come in?: No How do you think you became sick enough to come back?: continues to receive the diuretic that depletes her potassium - Ask the Care Team Members: What do you think caused the patient to be readmitted: Continued potassium depleting diuretic required to prevent pulmonary edema - Assessment for Readmission Summary of readmission circumstances, based upon interviews: Monisha has been receiving hydrochlorthiazide and experiences chronic hypokalemia. She has been coming to the Infusion Center for IV potassium intermittently for several weeks.Other diuretics are either non effective or Monisha is allergic to them.
[2019-03-13] MEDS: Magnesium Chloride 64 MG TABCR PO ×2 (14:37→20:11)
--- NOTE | 2019-03-13 14:44 | CHAPLAIN ---
oMnisha explained that she was readmitted because her levels were critical. A new regime has been initiated to try to keep her potassium levels regulated she said, adding that she was appreciative that there's a new approach being offered her. She lives at home with her partner and their kids, and said that being home is a comfortable place for her and she has time alone when the kids are in school. She also tries to get out for a walk each day, and that is relaxing for her. 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
[2019-03-13 14:45] VITALS: BP 121/82; PULSE 68; RESP 15; TEMP 37; O2SAT 99
[2019-03-13 15:10] VITALS: PULSE 68
--- NOTE | 2019-03-13 15:14 | W.PM.PROGNOT ---
Date of Service Date of service: 03/13/19 Time of Service: 15:14 Assessment and Plan Assessment and plan (1) Hypokalemia: Status: Acute Assessment and plan: Her potassium appears to be replete with a level of 4.0. We discussed trying to limit potassium wasting medications. She agreed to switch from twice daily hydrochlorothiazide to once daily hydrochlorothiazide/triamterene (Dyazide). In the absence of current diarrhea were hoping her potassium level will remain stable. Check level again in the a.m. (2) Hypomagnesemia: Status: Acute Assessment and plan: She previously had been on magnesium oxide. This could induce some loose stools. Will trial Slow-Mag 60 mg 3 times daily. Recheck level in the a.m. (3) Diarrhea: Status: Acute Assessment and plan: She reports her diarrhea is primarily around the time of her menses. She appears free of diarrhea at this time. (4) Hypertension: Status: None Assessment and plan: Blood pressure 141/91 today. She is willing to try an alternative regimen. With her success with lisinopril in the past and its potassium sparing capabilities we will start her back on lisinopril 10 mg twice daily with plans to titrate up to 20 mg twice daily if tolerated. Will begin tapering the carvedilol 12.5 mg twice daily for a few days then consider stopping carvedilol. Continue the Norvas. (5) Discharge planning issues: Status: Acute Assessment and plan: She is admitted to observation status. We will see how she does overnight. Provided we do not need to make any further major corrections likely discharge tomorrow. Subjective Subjective Interval history since last seen: 48-year-old female admitted yesterday for close monitoring of electrolyte wasting syndrome. She received extensive potassium replacement overnight, (4 x 20 mEq IV +40 mEq 3 times daily p.o.) she has had no arrhythmias or palpitations. She is having no diarrhea, normal bowel movements. No nausea or vomiting. She had been on lisinopril for about 24 years since the of her twins. She tolerated that well. She was switched off this to metoprolol and then carvedilol to improve blood pressure control. Exam Narrative Exam Narrative: On exam she is in no apparent distress. She is dressed in street clothes. She is moving around the room freely without any difficulty. Her lungs are completely clear bilaterally. Heart sounds are regular and strong without apparent murmur. Abdomen is soft and nontender. Lower extremities no pitting edema. Objective Objective Clinical Data: Abnormal lab results 03/12/19 03/13/19 Range/Units 16:18 07:43 Potassium 2.8 L* (3.5-5.1) mmol/L Glucose 121 H (74-106) mg/dL Calcium 8.3 L (8.5-10.1) mg/dL Magnesium 2.5 H (1.8-2.4) mg/dL Vital Signs Temperature 37 C 03/13/19 07:15 Temperature Source Tympanic 03/13/19 07:15 Pulse 69 03/13/19 07:15 Pulse Rhythm Regular 03/13/19 07:30 Respiratory Rate 18 03/13/19 07:15 Respiratory Effort Non-Labored 03/13/19 07:30 Respiratory Depth Normal 03/13/19 07:30 Respiratory Pattern Normal 03/13/19 07:30 Blood Pressure 141/91 H 03/13/19 07:15 Pulse Oximetry 98 03/13/19 12:32 Oxygen Delivery Method Room Air 03/13/19 12:32 Oxygen Flow Rate 0 03/13/19 12:32 Pain Level 0 03/13/19 07:15 Intake & Output 03/12/19 03/13/19 03/13/19 23:59 11:59 23:59 Intake Total 350 / 450 570 / 570 Output Total 600 / 600 700 / 700 Balance -250 / -150 -130 / -130 Weight 119.5 kg 119.8 kg Intake: IV 330 / 330 Oral 350 / 350 240 / 240 Output: Urine 600 / 600 700 / 700 Other: Urine Color Yellow Yellow Urine Appearance Clear Clear Urine Odor Normal None Stool Size Moderate Stool Characteristics Soft Formed Brown Voiding Methods Toilet Toilet Laboratory Results Sodium 140 mmol/L (136-145) 03/13/19 07:43 Potassium 4.0 mmol/L (3.5-5.1) 03/13/19 07:43 Chloride 105 mmol/L (98-107) 03/13/19 07:43 Carbon Dioxide 24.0 mmol/L (21.0-32.0) 03/13/19 07:43 Anion Gap 11.0 mmol/L (3-11) 03/13/19 07:43 BUN 16 mg/dL (7-18) 03/13/19 07:43 Creatinine 0.81 mg/dL (0.55-1.02) 03/13/19 07:43 Estimated GFR/1.73 m2 >= 60.00 (mL/min/1.73m2) 03/13/19 07:43 Glucose 121 mg/dL (74-106) H 03/13/19 07:43 Calcium 8.3 mg/dL (8.5-10.1) L 03/13/19 07:43 Magnesium 1.8 mg/dL (1.8-2.4) 03/13/19 07:43 NT-Pro-B Natriuret Pep 57 pg/mL (<300) 03/13/19 07:43
[2019-03-13] MEDS: Carvedilol 12.5 MG TAB PO (20:10)
[2019-03-13] MEDS: Lisinopril 10 MG TAB PO (20:10)
[2019-03-13] MEDS: Famotidine 20 MG TAB PO (20:11)
[2019-03-13 20:45] VITALS: BP 150/91; PULSE 78; RESP 18; TEMP 36.7; O2SAT 98
[2019-03-13] MEDS: Pramipexole 0.25 MG TAB PO (21:58)
[2019-03-13 23:18] VITALS: PULSE 69
[2019-03-14 03:52] VITALS: BP 129/82; PULSE 74; RESP 16; TEMP 36.3; O2SAT 98
[2019-03-14] MEDS: Loperamide 2 MG CAP PO (07:04)
[2019-03-14 07:15] VITALS: BP 129/86; PULSE 79; RESP 16; TEMP 37.1; O2SAT 97
[2019-03-14 07:49] LABS: Anion Gap 8.7 mmol/L (3-11); BUN 19 mg/dL (7-18); CO2 24.3 mmol/L (21.0-32.0); CREATININE 0.87 mg/dL (0.55-1.02); Calcium 8.8 mg/dL (8.5-10.1); Chloride 106 mmol/L (98-107); Glucose 111 mg/dL (74-106); Magnesium 1.8 mg/dL (1.8-2.4); Potassium 4.3 mmol/L (3.5-5.1); Sodium 139 mmol/L (136-145)
[2019-03-14 08:10] VITALS: O2SAT 98
[2019-03-14] MEDS: Triamterene 37.5/HCTZ 25 CAP PO (08:26)
[2019-03-14] MEDS: Lisinopril 10 MG TAB PO (08:26)
[2019-03-14] MEDS: Magnesium Chloride 64 MG TABCR PO ×2 (08:27→14:00)
[2019-03-14] MEDS: Potassium Chloride 20 MEQ TABCR 40 MEQ PO ×2 (08:27→14:00)
[2019-03-14] MEDS: Famotidine 20 MG TAB PO (08:27)
[2019-03-14] MEDS: buPROPion-XL 150 MG TABCR 300 MG PO (08:31)
[2019-03-14] MEDS: Venlafaxine 50 MG TAB 25 MG PO (08:33)
[2019-03-14] MEDS: Gabapentin 300 MG CAP PO ×2 (08:33→14:00)
[2019-03-14] MEDS: amLODIPine 5 MG TAB 10 MG PO (08:34)
[2019-03-14] MEDS: Carvedilol 12.5 MG TAB PO (08:34)
[2019-03-14 11:10] VITALS: PULSE 68
--- NOTE | 2019-03-14 11:29 | PDOC.CMPRO ---
- If Service Date Differs Date of service: 03/14/19 Time of Service: 11:29 Care Management Progress Note S/O: Monisha is lying in bed when CM meets with her today. She is pleasant and easily engages in conversation. She shares she came to the hospital on Sunday for infusion therapy and was subsequently admitted due to low potassium. She states she is looking forward to returning home soon. Lab records show a potassium level of 4.3 at 6:05 am on 03/14/2019, which is improved from 2.8 on 03/12/2019. CM will continue to follow. A: Monisha is a 48 year old female admitted to [facility] on 03/12/2019 for electrolyte wasting syndrome and hypokalemia. P: Monisha will be discharged home when medically cleared by provider. Anticipate no new services upon discharge. She will drive herself home when ready as her car is in the parking lot at [facility]. CM continues to follow.
--- NOTE | 2019-03-14 11:56 | DSE_ITS ---
Date of service: 03/14/19 Time of Service: 11:56 DS: Diagnosis Discharge Diagnosis (1) Hypokalemia: Status: Acute (2) Hypomagnesemia: Status: Acute (3) Diarrhea: Status: Acute (4) Hypertension: Status: None (5) Discharge planning issues: Status: Acute Discharge Plan Disposition Patient Disposition: HOME Condition: Improving Discharge Details Reason For Visit: ELECTROLYTE WASTING SYNDROME, HYPOKALEMIA Admit Date/Time: 03/12/19 13:47 Admit Provider: Fredy Wild Attending Provider: Fredy Wild [facility] Hospital Course: Patient with PMH HTN and electrolyte wasting syndrome admitted with hypokalemia to 2.8 and hypomagnesemia to 1.7. Through course of stay her magnesium and potassium were monitored and repleted as needed. At the time of discharge mg was 1.8 (which will be repleted with 2mg IV mag prior to discharge) and K was 4.3. Her antihypertensive regimen was adjusted including the addition of a potassium sparing diuretic to her HCTZ, decreasing carvedilol, and discontinuing hydralazine. She remains on her prior to admission amlodipine. She was trialed on lisinopril while in patient however BP was overly well controlled and K levels had normalized, thus she was not continued on this. She will be discharged on mg supplementation and a decreased dose of K supplementation (20meq PO daily), given that K levels had normalized and she is now on a She will follow up with her PCP for repeat labs and monitoring of anti hypertensive regimen. Home Meds and New Rx's Prescriptions: New carvedilol [Coreg] 12.5 mg Tablet 12.5 mg PO BID Qty: 60 RF: 1 triamterene-hydrochlorothiazid [Dyazide] 37.5-25 mg Capsule 1 cap PO DAILY Qty: 30 RF: 0 magnesium chloride [Mag 64] 64 mg Tablet,Delayed Release (Dr/Ec) 64 mg PO TID Qty: 120 RF: 0 potassium chloride 20 mEq tablet extended release 20 meq PO DAILY Qty: 7 RF: 0 Continued prochlorperazine maleate 5 mg tablet 5 mg PO Q8H PRN Qty: 30 RF: 3 ondansetron HCl [Zofran] 4 mg tablet 4 mg PO Q8H PRNRF: 0 sumatriptan succinate 100 mg tablet See Rx Instructions PO .COMPLEX PRNRF: 0 oix-nvo-Nu-yrt-Nq-oys-carbohyd 320-190-70 mg powder in packet 2 packet PO Q2H Qty: 8 RF: 3 multivitamin [Daily Multi-Vitamin] 1 EACH tablet 1 ea PO DAILY RF: 0 hair prosthesis Miscellaneous DAILY Qty: 1 RF: 1 bupropion HCl [Wellbutrin XL] 300 mg tablet extended release 24 hr 300 mg PO DAILY Qty: 90 RF: 3 omeprazole 40 mg capsule,delayed release(DR/EC) 40 mg PO DAILY Qty: 90 RF: 3 venlafaxine 25 mg tablet 25 mg PO DAILY Qty: 30 RF: 1 gabapentin 300 mg capsule 300 mg PO TID Qty: 270 RF: 3 amlodipine 5 mg tablet 10 mg PO DAILY Qty: 60 RF: 1 pramipexole [Mirapex] 0.25 mg tablet 0.25 mg PO HS RF: 0 melatonin 10 mg Capsule 10 mg PO HS PRNRF: 0 hydrocortisone 2.5 % Cream 1 applic topical TID Qty: 30 RF: 0 loperamide 2 mg Capsule 2 mg PO QLOOSE PRNQty: 0 RF: 0 Discontinued hydrochlorothiazide 50 mg tablet 25 mg PO BID RF: 0 carvedilol 25 mg tablet 25 mg PO BID Qty: 90 RF: 6 hydralazine 10 mg tablet 10 mg PO QID Qty: 30 RF: 0 potassium chloride 20 mEq tablet,ER particles/crystals 40 meq PO BID Qty: 120 RF: 0 Discharge Instructions Additional Instructions: have labs checked Saturday 03/17 follow up with your PCP within the next week Stand Alone Forms: Nursing Discharge Form Referrals: Huyen Ramon DO [Primary Care Provider] - 03/28/19 9:00 am Activity:: Activity as Tolerated Equipment/Supplies:: No Equipment Needed Diet:: high protein Discharge Orders Discharge Orders: Discharge Order (Routine); Ordered 03/14/19 Ordered By: Jeannie Green Other Ambulatory Orders: Basic Metabolic Panel (Routine) Location: None Selected Ordered By: Jeannie Green Magnesium (Routine) Location: None Selected Ordered By: Jeannie Green DS: Summary Status at Discharge Functional status at discharge: independent ambulation Overall status at discharge: patient is back to baseline Mental Status: mental status grossly normal Speech and Movement: speech and movement normal Mood: congruent mood Affect: normal affect Time Spent with Patient providing and/or coordinating discharge services: Greater than 30 minutes Exam Narrative Exam Narrative: GEN: NAD, well appearing HEENT: NCAT CV: RRR, nl s1 and s2 LUNGS: CTAB ABD: NABS, soft, NT, ND EXTL trace edema Psych Mental Status: mental status grossly normal Speech and Movement: speech and movement normal Mood: congruent mood Affect: normal affect DS: Data Vitals/I&O Vitals and I&O: Vital Signs Temperature 37.1 C 03/14/19 07:15 Temperature Source Tympanic 03/14/19 07:15 Pulse 79 03/14/19 07:15 Pulse Rhythm Regular 03/14/19 08:10 Respiratory Rate 16 03/14/19 07:15 Respiratory Effort Non-Labored 03/14/19 08:10 Respiratory Depth Normal 03/14/19 08:10 Respiratory Pattern Normal 03/14/19 08:10 Blood Pressure 129/86 03/14/19 07:15 Pulse Oximetry 98 03/14/19 08:10 Oxygen Delivery Method Room Air 03/14/19 08:10 Oxygen Flow Rate 0 03/14/19 08:10 Pain Level 0 03/14/19 07:15 Intake & Output 03/13/19 03/13/19 03/14/19 11:59 23:59 11:59 Intake Total 1170 / 1530 360 / 1530 650 / 650 Output Total 700 / 2700 2000 / 2700 400 / 400 Balance 470 / -1170 -1640 / -1170 250 / 250 Weight 119.8 kg 119.7 kg Intake: IV 330 / 330 Oral 840 / 1200 360 / 1200 650 / 650 Output: Urine 700 / 2700 2000 / 2700 400 / 400 Other: Urine Color Yellow Straw Straw Urine Appearance Clear Clear Clear Urine Odor None Normal Comment patient reports 1100 out of urine. Patient emptying hats. Stool Size Moderate Moderate Stool Characteristics Soft Soft Formed Formed Brown Voiding Methods Toilet Toilet Toilet Data Completed and Pending Labs on day of discharge: Labs from last 24 hours 03/14/19 06:05 Sodium 139 Potassium 4.3 Chloride 106 Carbon Dioxide 24.3 Anion Gap 8.7 BUN 19 H Creatinine 0.87 Estimated GFR/1.73 m2 >= 60.00 Glucose 111 H Calcium 8.8 Magnesium 1.8 PFSH Medical History Abnormal serum creatinine level (Acute 07/2018) Serious Creatinine elevation, with resolution between episodes of dehydration .. Alopecia Anemia Dehydration (Inactive ~08/21/18) Several episodes now .. She can almost gauge her K levels based on mm weakness. [ ] BMP [ ] IVF-KCl Bolus-K have helped with hypokalemia in between bouts of diarrhea/dehydration when IVF not needed. 09/2018, ik Depression GERD (gastroesophageal reflux disease) Marylou's thyroiditis Hx of adenomatous colonic polyps Hypertension Hypokalemia (Acute 11/07/16) Chronic, possible 2' IBS/Diarrhea. Continued despite GI improvements, albeit improved. Trial Eplerenone, to be followed by HCTZ decrease. 10/09/18 Intermittent improvement, but unsteady and unpredictable .. Monisha seems unable to maintain her own K levels WNL w/o bolus/infusions at this time. Unable to tolerate K-sparing diuretics. Cont to research, evaluate, consult .. 09/2018, mian Irritable bowel syndrome diarrhea predominant Migraine headache with aura (Chronic) DR. VALDEZ 08/29/11 [employer] Vertigo and/or pain Preeclampsia (Acute) Rectal hemorrhage (Inactive 03/02/15) Reflux esophagitis Sustained VT (ventricular tachycardia) (Acute) during hypokalemia episode Surgical History section x3 Colonoscopy - MAC (03/16/14) w/ bx 2015-serrated adenomatous polyp EGD - MAC 2015 Endometrial Ablation 2007 2012 H/O colonoscopy (Chronic 12/05/17) History of esophagogastroduodenoscopy (EGD) (Chronic 12/05/17) Tonsillectomy Family History Mother Pulmonary hypertension Heart disease valve replacement Father Prostate cancer Essential hypertension Parkinsons Sister Uterine cancer Brother No problems noted. 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 Pets and animals: Yes Pets and animals: cat(s) and dog(s) What is your relationship status?: living with partner Panel score (0-1 are the most socially isolated patients): 1 What type of physical activity do you participate in: walking Duration: 15-30 minutes/day Frequency: 3-4 times per week Seatbelt use: always Working smoke detector in home: Yes Fire extinguisher in home: Yes Carbon monox detector in home: Yes Firearms in home: No Do you feel safe at home: Yes Do you feel safe in your relationship?: Yes Female Reproductive History Menstrual control method: permanent sterilization History History 3 Para 4 Hx # Term Pregnancies Multiple births 1 Hx # Pregnancies Ectopic pregnancies AB induced Hx Number of Living Children AB spontaneous
--- NOTE | 2019-03-14 12:25 | PDOC.CMDIS ---
- If Service Date Differs Date of service: 03/14/19 Time of Service: 12:25 LACE Index Scoring Tool - Questions: Length of Stay (in days): 2 Acuity (Admit via E.D.?): No E.D. Visits: 7 - Answers: Total Score: 6 Risk of Readmission: Low Risk Care Management Discharge Reason for Hospitalization: Hypokalemia Discharge Plan: Monisha is being discharged home with no new services. She will follow up with her PCP as directed. Monisha will drive herself home upon discharge, as her car is in the [facility] parking lot. Patient/Family Education Needs: Nursing will review discharge instructions with Monisha re medications and follow-up appointments. Monisha is able to verbalize reason for hospitalization and how to manage care at home.
[2019-03-14 13:08] VITALS: BP 148/85
--- NOTE | 2019-03-14 15:25 | CHAPLAIN ---
Monisha was dressed and sitting on the edge of the bed when I visited this morning. She is waiting to hear if she is being discharged today. She said she has rested well here.
== END 2019-03-14 14:23 | disposition home or self-care (01) ==
PROVIDERS: Internal Medicine; Admitting Provider Family Medicine; PCP Student in an Organized Health Care Education/Training Program; Visit Provider Family Medicine
DX: E87.6 Hypokalemia (principal); E83.42 Hypomagnesemia; R19.7 Diarrhea, unspecified; E87.8 Other disorders of electrolyte and fluid balance, not elsewhere classified; I10 Essential (primary) hypertension; K21.9 Gastro-esophageal reflux disease without esophagitis; F32.9 Major depressive disorder, single episode, unspecified
CPT/HCPCS: 36410; 36415; 80048; 99219; 99225; 99238; 83735; 83880; 84132; 99217; G0378; J3480

== ENCOUNTER 2019-03-17 07:10 | Outpatient (CLI) | payer BC, SELFPAY ==
[2019-03-17 08:04] LABS: BUN 18 mg/dL (7-18); Calcium 8.7 mg/dL (8.5-10.1); Chloride 102 mmol/L (98-107); Estimated GFR 58.93 (mL/min/1.73m2); Glucose 133 mg/dL (74-106); Magnesium 1.7 mg/dL (1.8-2.4); Potassium 3.2 mmol/L (3.5-5.1); Sodium 140 mmol/L (136-145)
== END 2019-03-17 07:30 ==
PROVIDERS: PCP Student in an Organized Health Care Education/Training Program; Visit Provider Student in an Organized Health Care Education/Training Program
DX: E87.6 Hypokalemia (principal); R53.83 Other fatigue
CPT/HCPCS: 36415; 80048; 83735

== ENCOUNTER 2019-03-18 03:00 | Outpatient (CLI) | payer BC, SELFPAY ==
[2019-03-18 10:40] LABS: Anion Gap 8.2 mmol/L (3-11); BUN 17 mg/dL (7-18); CO2 30.8 mmol/L (21.0-32.0); Calcium 9.3 mg/dL (8.5-10.1); Chloride 103 mmol/L (98-107); Estimated GFR 58.93 (mL/min/1.73m2); Glucose 109 mg/dL (74-106); Potassium 3.6 mmol/L (3.5-5.1); Sodium 142 mmol/L (136-145)
== END 2019-03-18 03:20 ==
PROVIDERS: PCP Student in an Organized Health Care Education/Training Program; Visit Provider Student in an Organized Health Care Education/Training Program
DX: E87.6 Hypokalemia (principal); R53.83 Other fatigue
CPT/HCPCS: 36415; 80048; 83735

== ENCOUNTER 2019-03-19 07:10 | Outpatient (CLI) | payer BC, SELFPAY ==
[2019-03-19 09:13] LABS: Anion Gap 10.2 mmol/L (3-11); BUN 18 mg/dL (7-18); CO2 29.8 mmol/L (21.0-32.0); CREATININE 0.97 mg/dL (0.55-1.02); Calcium 8.9 mg/dL (8.5-10.1); Chloride 101 mmol/L (98-107); Glucose 128 mg/dL (74-106); Magnesium 1.6 mg/dL (1.8-2.4); Potassium 3.3 mmol/L (3.5-5.1); Sodium 141 mmol/L (136-145)
== END 2019-03-19 07:30 ==
PROVIDERS: PCP Student in an Organized Health Care Education/Training Program; Visit Provider Student in an Organized Health Care Education/Training Program
DX: E87.6 Hypokalemia (principal); R53.83 Other fatigue
CPT/HCPCS: 36415; 80048; 83735

== ENCOUNTER 2019-03-20 07:56 | Outpatient (CLI) | payer BC, SELFPAY ==
[2019-03-20 10:30] LABS: Anion Gap 7.4 mmol/L (3-11); BUN 14 mg/dL (7-18); CO2 30.6 mmol/L (21.0-32.0); CREATININE 1.01 mg/dL (0.55-1.02); Calcium 9.5 mg/dL (8.5-10.1); Chloride 101 mmol/L (98-107); Estimated GFR 58.26 (mL/min/1.73m2); Glucose 114 mg/dL (74-106); Potassium 3.9 mmol/L (3.5-5.1); Sodium 139 mmol/L (136-145)
== END 2019-03-20 08:16 ==
PROVIDERS: PCP Student in an Organized Health Care Education/Training Program; Visit Provider Student in an Organized Health Care Education/Training Program
DX: E87.6 Hypokalemia (principal); R53.83 Other fatigue
CPT/HCPCS: 36415; 80048; 83735

== ENCOUNTER 2019-03-21 01:23 | Outpatient (CLI) | payer BC, SELFPAY ==
[2019-03-21 08:14] LABS: Anion Gap 9.7 mmol/L (3-11); BUN 19 mg/dL (7-18); CO2 29.3 mmol/L (21.0-32.0); CREATININE 0.97 mg/dL (0.55-1.02); Calcium 9.5 mg/dL (8.5-10.1); Chloride 102 mmol/L (98-107); Glucose 130 mg/dL (74-106); Magnesium 1.9 mg/dL (1.8-2.4); Potassium 3.6 mmol/L (3.5-5.1); Sodium 141 mmol/L (136-145)
== END 2019-03-21 01:43 ==
PROVIDERS: PCP Student in an Organized Health Care Education/Training Program; Visit Provider Student in an Organized Health Care Education/Training Program
DX: E87.6 Hypokalemia (principal); R53.83 Other fatigue
CPT/HCPCS: 36415; 80048; 83735

== ENCOUNTER 2019-03-23 08:48 | Outpatient (CLI) | payer BC, SELFPAY ==
[2019-03-23 11:06] LABS: Anion Gap 9.6 mmol/L (3-11); BUN 19 mg/dL (7-18); CO2 28.4 mmol/L (21.0-32.0); CREATININE 1.08 mg/dL (0.55-1.02); Calcium 9.3 mg/dL (8.5-10.1); Chloride 100 mmol/L (98-107); Estimated GFR 53.92 (mL/min/1.73m2); Glucose 152 mg/dL (74-106); Magnesium 1.8 mg/dL (1.8-2.4); Potassium 3.3 mmol/L (3.5-5.1); Sodium 138 mmol/L (136-145)
== END 2019-03-23 09:08 ==
PROVIDERS: PCP Student in an Organized Health Care Education/Training Program; Visit Provider Student in an Organized Health Care Education/Training Program
DX: E87.6 Hypokalemia (principal); R53.83 Other fatigue
CPT/HCPCS: 36415; 80048; 83735

== ENCOUNTER 2019-03-24 08:23 | Outpatient (CLI) | payer BC, SELFPAY ==
[2019-03-24 09:10] LABS: Anion Gap 9.3 mmol/L (3-11); BUN 23 mg/dL (7-18); CO2 28.7 mmol/L (21.0-32.0); CREATININE 1.13 mg/dL (0.55-1.02); Calcium 9.6 mg/dL (8.5-10.1); Chloride 101 mmol/L (98-107); Estimated GFR 51.18 (mL/min/1.73m2); Glucose 155 mg/dL (74-106); Magnesium 1.9 mg/dL (1.8-2.4); Potassium 3.6 mmol/L (3.5-5.1); Sodium 139 mmol/L (136-145)
[2019-03-24 10:16] LABS: HCT 40.4 % (36.0-46.0); HGB 13.6 g/dL (12.0-15.5); Mean Corp. HGB Concentration 33.7 g/dL (32.0-36.0); Mean Corpuscular Hemoglobin 28.3 pg (27.0-33.0); Mean Platelet Volume 9.8 fL (8.0-11.0); Platelet Count 494 x1000/uL (130-400); RBC 4.81 m/cumm (4.00-5.20); RBC Distribution Width 13.8 % (11.7-14.6); White Blood Cell Count 8.54 k/cumm (4.4-10.8)
== END 2019-03-24 08:43 ==
PROVIDERS: PCP Student in an Organized Health Care Education/Training Program; Visit Provider Student in an Organized Health Care Education/Training Program
DX: E87.6 Hypokalemia (principal); R53.83 Other fatigue
CPT/HCPCS: 36415; 80048; 85027; 83735

== ENCOUNTER 2019-03-27 08:14 | Outpatient (CLI) | payer BC, SELFPAY ==
[2019-03-27 09:12] LABS: Anion Gap 9.8 mmol/L (3-11); BUN 20 mg/dL (7-18); CO2 31.2 mmol/L (21.0-32.0); CREATININE 0.96 mg/dL (0.55-1.02); Chloride 102 mmol/L (98-107); Glucose 134 mg/dL (74-106); Magnesium 1.7 mg/dL (1.8-2.4); Potassium 3.1 mmol/L (3.5-5.1); Sodium 143 mmol/L (136-145)
== END 2019-03-27 08:34 ==
PROVIDERS: PCP Student in an Organized Health Care Education/Training Program; Visit Provider Student in an Organized Health Care Education/Training Program
DX: E87.6 Hypokalemia (principal); R53.83 Other fatigue
CPT/HCPCS: 36415; 80048; 83735

== ENCOUNTER 2019-03-28 07:13 | Outpatient (CLI) | payer BC, SELFPAY ==
[2019-03-28 09:51] LABS: BUN 12 mg/dL (7-18); CREATININE 0.96 mg/dL (0.55-1.02); Calcium 8.7 mg/dL (8.5-10.1); Glucose 141 mg/dL (74-106); Sodium 140 mmol/L (136-145)
[2019-03-28 09:52] LABS: Anion Gap 9.5 mmol/L (3-11); CO2 29.5 mmol/L (21.0-32.0); Chloride 101 mmol/L (98-107); Potassium 2.9 mmol/L (3.5-5.1)
== END 2019-03-28 07:33 ==
PROVIDERS: PCP Student in an Organized Health Care Education/Training Program; Visit Provider Student in an Organized Health Care Education/Training Program
DX: E87.6 Hypokalemia (principal); R53.83 Other fatigue
CPT/HCPCS: 36415; 80048; 83735

== ENCOUNTER 2019-03-28 10:00 | Outpatient (RCR) | payer BC, SELFPAY ==
[2019-03-03 10:42] VITALS: BP 127/85; PULSE 80; RESP 20; TEMP 36.6; O2SAT 99
[2019-03-03] MEDS: MAGNESIUM SULFATE 4 GM/100 ML BAG IVPB (10:52)
[2019-03-03] MEDS: Normal Saline Flush 10 ML SYR IVP (10:53)
[2019-03-03] MEDS: POTASSIUM CHLORIDE 20 MEQ/100 ML BAG 50 MEQ IVPB ×2 (11:25→13:30)
[2019-03-07 09:43] LABS: Magnesium 1.7 mg/dL (1.8-2.4); Potassium 3.8 mmol/L (3.5-5.1)
[2019-03-10] MEDS: POTASSIUM CHLORIDE 20 MEQ/100 ML BAG 50 MEQ IVPB ×2 (10:16→11:57)
[2019-03-10] MEDS: Normal Saline Flush 10 ML SYR IVP (10:17)
[2019-03-10] MEDS: MAGNESIUM SULFATE 4 GM/100 ML BAG IVPB (10:17)
[2019-03-11 09:03] LABS: Magnesium 1.9 mg/dL (1.8-2.4); Potassium 3.3 mmol/L (3.5-5.1)
[2019-03-11] MEDS: POTASSIUM CHLORIDE 20 MEQ/100 ML BAG 50 MEQ IVPB ×2 (09:42→11:49)
[2019-03-11] MEDS: Normal Saline Flush 10 ML SYR IVP (09:42)
[2019-03-12] MEDS: MAGNESIUM SULFATE 4 GM/100 ML BAG IVPB (09:10)
[2019-03-12] MEDS: Normal Saline Flush 10 ML SYR IVP (09:11)
[2019-03-12] MEDS: POTASSIUM CHLORIDE 20 MEQ/100 ML BAG 50 MEQ IVPB ×2 (09:11→11:05)
[2019-03-17] MEDS: MAGNESIUM SULFATE 4 GM/100 ML BAG IVPB (08:36)
[2019-03-17] MEDS: POTASSIUM CHLORIDE 20 MEQ/100 ML BAG 50 MEQ IVPB ×2 (08:46→10:40)
[2019-03-18] MEDS: Normal Saline Flush 10 ML SYR IVP (11:11)
[2019-03-18] MEDS: POTASSIUM CHLORIDE 20 MEQ/100 ML BAG 50 MEQ IVPB ×2 (11:11→13:21)
[2019-03-19] MEDS: MAGNESIUM SULFATE 4 GM/100 ML BAG IVPB (09:57)
[2019-03-19] MEDS: POTASSIUM CHLORIDE 20 MEQ/100 ML BAG 50 MEQ IVPB ×2 (09:57→12:26)
[2019-03-19] MEDS: Normal Saline Flush 10 ML SYR IVP (12:27)
[2019-03-24] MEDS: POTASSIUM CHLORIDE 20 MEQ/100 ML BAG 50 MEQ IVPB ×2 (11:01→12:54)
[2019-03-27] MEDS: Normal Saline Flush 10 ML SYR IVP (10:17)
[2019-03-27] MEDS: POTASSIUM CHLORIDE 20 MEQ/100 ML BAG 50 MEQ IVPB ×2 (10:17→12:24)
[2019-03-27] MEDS: MAGNESIUM SULFATE 4 GM/100 ML BAG IVPB (10:17)
[2019-03-28] MEDS: MAGNESIUM SULFATE 4 GM/100 ML BAG IVPB (11:03)
[2019-03-28] MEDS: Normal Saline Flush 10 ML SYR IVP (11:04)
== END 2019-04-01 23:59 | disposition home or self-care (01) ==
LOC: INF 10:00
PROVIDERS: PCP Student in an Organized Health Care Education/Training Program; Visit Provider Student in an Organized Health Care Education/Training Program
DX: E87.6 Hypokalemia (principal); E86.0 Dehydration
CPT/HCPCS: 36415; 96365; 96366; 83735; 84132; G0378; J3475; J3480

== ENCOUNTER 2019-03-28 10:31 | Observation (INO) | payer BC, SELFPAY ==
[2019-03-28 15:19] VITALS: BP 152/91; PULSE 88; RESP 18; TEMP 36.5; O2SAT 96
[2019-03-28] MEDS: POTASSIUM CHLORIDE 20 MEQ/100 ML BAG 50 MEQ IVPB ×2 (15:45→18:05)
[2019-03-28] MEDS: Normal Saline Flush 10 ML SYR IVP (15:46)
[2019-03-28 16:01] VITALS: PULSE 78
--- NOTE | 2019-03-28 16:07 | HPE_ITS ---
Date of service: 03/28/19 Time of Service: 16:07 Assessment and Plan Assessment and plan (1) Hypokalemia: Status: Acute Assessment and plan: Increase oral repletion to TID; also, give 40 MEQ in the IV. Monitor on tele. Obtain EKG. Obtain records from [facility]. (2) Hypertension: Status: Chronic Assessment and plan: Dr Omalley has spoken with nephrology at [facility] who recommended amiloride in addition to lasix rather than HCTZ/triamterene combination. Our pharmacy does not have amiloride and will not until Sunday (would need to be ordered if indeed this change is to take place). The safest bet for now is to continue triamterene - HCTZ. Discussed with Dr Wild who will be taking over tomorrow. (3) Lymphedema: Status: Chronic Assessment and plan: Edema today was felt to be nonpitting. Patient to follow up with outpatient PT for lymphedema therapy. (4) Depressive disorder: Status: Acute Assessment and plan: Continue home therapy (5) DVT prophylaxis: Status: Acute Assessment and plan: Patient is allergic to TEDs. Offer SCD's. Avoid chemical DVT ppx given large ecchymosis. (6) Discharge planning issues: Status: Acute Assessment and plan: Full code History of Present Illness History of Present Illness Chief Complaint: hypokalemia, direct admission from infusion room Narrative: Ms Das is a 48 year old female with PMHx of refractory hypokalemia, requiring multiple outpatient potassium and magnesium infusions in context of diuretic therapy as well as occasional diarrhea, but possibly not exclusively due to these factors, as well as chronic edema BLE's, hypertension, GERD, who is being directly admitted (actually, placed in observation status) from the infusion room today for a potassium of 2.9. She already received her magnesium infusion today. Her magnesium was 2.0 this morning. Her PCP has spoken with nephrology at [facility] in [facility], who recommended switching her from the latest combination of triamterene/HCTZ to amiloride and lasix. It does not appear that we have amiloride in house at this time, but we are hoping to get it in-house this weekend or, at the latest, Sunday. The patient had been taking 20 MEQ of potassium TID and denies diarrhea. She states she has been having 1 BM a day or every other day. She also states that she fell down the stairs a few days ago, not hitting her head. She thinks it was because her legs were so tight she could not feel them. She landed on her buttocks and his her RUE on a shelving unit. She states that she feels safe at home. Review of Systems Narrative: 12 systems reviewed. Pertinent positives and negatives are as per HPI. 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 Pets and animals: Yes Pets and animals: cat(s) and dog(s) What is your relationship status?: living with partner Panel score (0-1 are the most socially isolated patients): 1 What type of physical activity do you participate in: walking Duration: 15-30 minutes/day Frequency: 3-4 times per week Seatbelt use: always Working smoke detector in home: Yes Fire extinguisher in home: Yes Carbon monox detector in home: Yes Firearms in home: No Do you feel safe at home: Yes Do you feel safe in your relationship?: Yes Female Reproductive History Menstrual control method: permanent sterilization History History 3 Para 4 Hx # Term Pregnancies Multiple births 1 Hx # Pregnancies Ectopic pregnancies AB induced Hx Number of Living Children AB spontaneous Meds Home Medications and Allergies Home Medications Medication Instructions Recorded Confirmed Type multivitamin [Daily Multi-Vitamin] 1 ea PO DAILY 07/22/14 03/28/19 History Hair Prosthesis u MISCELLANEOUS DAILY #1 u 05/19/15 11/29/18 Clinic prochlorperazine maleate 5 mg 5 mg PO Q8H PRN #30 tab-cap 03/04/18 03/28/19 Rx tablet bupropion HCl 300 mg 24 hr tablet, 300 mg PO DAILY #90 tab 05/15/18 03/28/19 Rx extended release omeprazole 40 mg capsule,delayed 40 mg PO DAILY #90 tab 09/05/18 03/28/19 Rx release venlafaxine 25 mg tablet 25 mg PO DAILY #30 tab 01/21/19 03/28/19 Rx gabapentin 300 mg capsule 300 mg PO TID #270 tab-cap 01/23/19 03/28/19 Rx ondansetron HCl 4 mg tablet 4 mg PO Q8H PRN tab 01/28/19 03/28/19 History sumatriptan succinate 100 mg tablet See Rx Instructions PO .COMPLEX 01/28/19 03/28/19 History PRN tab melatonin 10 mg PO HS PRN 03/03/19 03/28/19 History pramipexole [Mirapex] 0.25 mg PO HS 03/03/19 03/28/19 History loperamide 2 mg PO QLOOSE PRN #0 cap 03/05/19 03/28/19 Rx amlodipine 5 mg tablet 10 mg PO DAILY #60 tab 03/08/19 03/28/19 Rx magnesium chloride [Mag 64] 64 mg PO TID #120 tab 03/14/19 03/28/19 Rx potassium chloride 20 mEq 20 meq PO TID #90 tab 03/19/19 03/28/19 Rx tablet,extended release carvedilol [Coreg] 25 mg PO BID 03/28/19 03/28/19 History triamterene-hydrochlorothiazid 1 cap PO BID 03/28/19 03/28/19 History [Dyazide] Allergies Allergy/AdvReac Type Severity Reaction Status Date / Time iron [From Venofer] Allergy Severe Swelling/Ed Verified 03/21/19 09:07 brandon atropine Allergy Intermediate HIVES, Verified 03/21/19 09:07 SWOLLEN spironolactone Allergy Intermediate Skin Rash Verified 03/21/19 09:07 eplerenone AdvReac Intermediate swelling; Verified 03/21/19 09:07 SOB Exam Narrative Exam Narrative: General: Pleasant obese female, A&OX3, sitting comfortably in bed, navigating smart phone Neurological: A&OX3, no focal deficits Psychiatric: mildly anxious Skin: Large bruise RUE - green. HEENT: Atraumatic, normocephalic, EOMI, MMM, no goiter or JVD Cardiovascular: RRR, no m/r/g Lungs: CTAB Gastrointestinal: soft, nondistended, nontender Genitourinary: deferred Extremities: Trace edema BLE's, no c/c. Results Imaging Additional studies: EKG pending Labs Result diagrams: 03/28/19 18:00 Last Vital Signs Temp 36.5 C 03/28/19 15:19 Pulse 88 03/28/19 15:19 Resp 18 03/28/19 15:19 BP 152/91 H 03/28/19 15:19 Pulse Ox 96 03/28/19 15:19
[2019-03-28] MEDS: Potassium Chloride 20 MEQ TABCR 40 MEQ PO ×2 (16:27→20:23)
[2019-03-28 18:25] LABS: Bilirubin Negative (Negative); Blood Moderate (Negative); Clarity Sl Cloudy (Clear); Glucose Negative (Negative); Ketones Negative (Negative); Leukocyte Esterase Negative (Negative); Nitrite Negative (Negative); Specific Gravity >= 1.030 (1.005-1.025); Urobilinogen 0.2 EU/dL (Up TO 0.2); pH 5.5 (5-8)
[2019-03-28 18:30] LABS: BUN 15 mg/dL (7-18); CREATININE 0.92 mg/dL (0.55-1.02); Calcium 8.9 mg/dL (8.5-10.1); Chloride 101 mmol/L (98-107); Glucose 135 mg/dL (74-106); Potassium 3.3 mmol/L (3.5-5.1); Sodium 139 mmol/L (136-145)
[2019-03-28 18:31] LABS: Creatinine,Urine 88.59 mg/dL; POTASSIUM,URINE RANDOM 33 mmol/L; Sodium, Urine 129 mmol/L
[2019-03-28 18:34] LABS: *AMPHETAMINES SCREEN URINE Negative (Negative); *BARBITURATES SCREEN URINE Negative (Negative); *BENZODIAZEPINES SCREEN URINE Negative (Negative); Cannabinoids THC Negative (Negative); Cocaine Screen,Urine Negative (Negative); METHADONE URINE SCREEN Negative (Negative); OPIATES URINE SCREEN Negative (Negative)
[2019-03-28 18:35] LABS: Tricyclic Antidepressants Negative (Negative)
[2019-03-28 18:37] LABS: Bacteria Many HPF (Negative); C & S Indicated? Yes; Crystals Negative HPF (Negative); Epithelial Cells Many HPF (Negative); Mucus Negative (Negative); RBC 0-2 HPF (0-2)
[2019-03-28] MEDS: Triamterene 37.5/HCTZ 25 CAP PO (20:23)
[2019-03-28] MEDS: Carvedilol 12.5 MG TAB 25 MG PO (20:24)
[2019-03-28 21:14] VITALS: BP 152/91; PULSE 79; RESP 17; TEMP 36.9; O2SAT 95
[2019-03-28] MEDS: Gabapentin 300 MG CAP 900 MG PO (22:27)
[2019-03-28] MEDS: Pramipexole 0.25 MG TAB PO (22:27)
[2019-03-28] MEDS: Magnesium Chloride 64 MG TABCR PO (22:27)
[2019-03-28 23:23] VITALS: PULSE 76
[2019-03-28 23:43] VITALS: BP 146/91; PULSE 82; RESP 19; TEMP 37; O2SAT 96
[2019-03-29 03:26] VITALS: BP 115/73; PULSE 74; RESP 17; TEMP 36.4; O2SAT 95
[2019-03-29 07:08] VITALS: PULSE 68
[2019-03-29 07:20] VITALS: BP 131/79; PULSE 81; RESP 16; TEMP 36.5; O2SAT 98
[2019-03-29 07:22] LABS: Abs Immature Grans 0.01 k/cumm (0.0-0.09); Absolute Basophil Count 0.05 k/cumm (0.0-0.2); Absolute Eosinophil Count 0.51 k/cumm (0.0-0.7); Absolute Lymphocyte Count 3.07 k/cumm (1.2-3.4); Absolute Monocyte Count 0.68 k/cumm (0.11-0.7); Absolute Neutrophil Count 3.69 k/cumm (1.2-6.7); Basophils % 0.6; Eosinophils % 6.4; HCT 37.6 % (36.0-46.0); HGB 12.7 g/dL (12.0-15.5); Immature Grans % 0.1; Lymphocytes % 38.3; Mean Corp. HGB Concentration 33.8 g/dL (32.0-36.0); Mean Corpuscular Hemoglobin 28.5 pg (27.0-33.0); Mean Corpuscular Volume 84.3 fL (80-95); Mean Platelet Volume 9.3 fL (8.0-11.0); Monocytes % 8.5; Neutrophils % 46.1; Platelet Count 423 x1000/uL (130-400); RBC 4.46 m/cumm (4.00-5.20); RBC Distribution Width 13.7 % (11.7-14.6); White Blood Cell Count 8.01 k/cumm (4.4-10.8)
[2019-03-29 07:30] LABS: Anion Gap 8.1 mmol/L (3-11); BUN 13 mg/dL (7-18); CO2 28.9 mmol/L (21.0-32.0); Calcium 8.8 mg/dL (8.5-10.1); Chloride 103 mmol/L (98-107); Glucose 128 mg/dL (74-106); Potassium 3.5 mmol/L (3.5-5.1); Sodium 140 mmol/L (136-145)
[2019-03-29] MEDS: Omeprazole 20 MG CAPCR 40 MG PO (07:35)
[2019-03-29] MEDS: buPROPion-XL 150 MG TABCR 300 MG PO (08:25)
[2019-03-29] MEDS: amLODIPine 5 MG TAB 10 MG PO (08:25)
[2019-03-29] MEDS: Carvedilol 12.5 MG TAB 25 MG PO (08:25)
[2019-03-29] MEDS: Magnesium Chloride 64 MG TABCR PO (08:26)
[2019-03-29] MEDS: Multivitamin TAB 1 TAB PO (08:26)
[2019-03-29] MEDS: Triamterene 37.5/HCTZ 25 CAP PO (08:26)
[2019-03-29] MEDS: Potassium Chloride 20 MEQ TABCR 40 MEQ PO (08:26)
[2019-03-29 09:37] VITALS: PULSE 70
--- NOTE | 2019-03-29 09:48 | W.PM.DS.N ---
Date of service: 03/29/19 Time of Service: 09:48 DS: Diagnosis Discharge Diagnosis (1) Hypokalemia: Start date: 03/29/19 Start time: 09:48 Status: Acute Asessment and Plan: Corrected. Continue PO potassium TID (2) Hypertension: Status: Chronic (3) Lymphedema: Start date: 03/29/19 Start time: 09:49 Status: Chronic Asessment and Plan: Weigh self daily if greater 2 pound wt gain, take 1/2 tab diuretic. Work on wt loss. At least 10% of body weight. Follow up with cardiology and nephrology (4) Depressive disorder: Status: Acute (5) DVT prophylaxis: Status: Acute (6) Discharge planning issues: Status: Acute Discharge Plan Disposition Patient Disposition: HOME Condition: Improving Discharge Details Reason For Visit: hypokalemia Admit Date/Time: 03/28/19 10:31 Admit Provider: Jeri Contreras Attending Provider: Jeri Contreras Primary Care Provider: Huyen Ramon Hospital Course Hospital Course: Ms Das is a 48 year old female with PMHx of refractory hypokalemia, requiring multiple outpatient potassium and magnesium infusions in context of diuretic therapy as well as occasional diarrhea, but possibly not exclusively due to these factors, as well as chronic edema BLE's, hypertension, GERD, who was admitted from infusion room for potassium level of 2.9. Today her potassium level has improved to 3.5. She will continue potassium TID dosing. Recommend wt loss of 10% total body wt to help with BLE edema. Recommend daily wts and not to take diuretic unless greater than 2 lb wt gain. Weigh self at same time every morning in same clothes. At this time she is stable to go home. She should follow up with her PCP, cardiology and nephrology. Diarrhea has resolved. Consume low fat, high potassium diet and make sure to get plenty of exercise. She denies CP, SOB. Home Meds and New Rx's Prescriptions: New potassium chloride [Klor-Con M20] 20 mEq Tablet,Er Particles/Crystals 40 meq PO TID Qty: 21 RF: 0 Continued prochlorperazine maleate 5 mg tablet 5 mg PO Q8H PRN Qty: 30 RF: 3 ondansetron HCl [Zofran] 4 mg tablet 4 mg PO Q8H PRNRF: 0 sumatriptan succinate 100 mg tablet See Rx Instructions PO .COMPLEX PRNRF: 0 multivitamin [Daily Multi-Vitamin] 1 EACH tablet 1 ea PO DAILY RF: 0 hair prosthesis Miscellaneous DAILY Qty: 1 RF: 1 bupropion HCl [Wellbutrin XL] 300 mg tablet extended release 24 hr 300 mg PO DAILY Qty: 90 RF: 3 omeprazole 40 mg capsule,delayed release(DR/EC) 40 mg PO DAILY Qty: 90 RF: 3 venlafaxine 25 mg tablet 25 mg PO DAILY Qty: 30 RF: 1 gabapentin 300 mg capsule 300 mg PO TID Qty: 270 RF: 3 amlodipine 5 mg tablet 10 mg PO DAILY Qty: 60 RF: 1 carvedilol [Coreg] 12.5 mg tablet 25 mg PO BID RF: 0 triamterene-hydrochlorothiazid [Dyazide] 37.5-25 mg capsule 1 cap PO BID RF: 0 pramipexole [Mirapex] 0.25 mg tablet 0.25 mg PO HS RF: 0 melatonin 10 mg Capsule 10 mg PO HS PRNRF: 0 loperamide 2 mg Capsule 2 mg PO QLOOSE PRNQty: 0 RF: 0 magnesium chloride [Mag 64] 64 mg Tablet,Delayed Release (Dr/Ec) 64 mg PO TID Qty: 120 RF: 0 Discontinued potassium chloride 20 mEq tablet extended release 20 meq PO TID Qty: 90 RF: 3 Discharge Instructions Instructions: Hypokalemia (DC), Weight Management (DC) Additional Instructions: Follow up with your PCP in 1 week. Repeat Potassium level in 3 days. Follow up with cardiology and nephrology as scheduled Weigh yourself daily on the same scale at the same time in the morning in the same clothes. IF YOU HAVE A GREATER THAN 2 pound wt gain. TAKE 1/2 a diuretic. Losing at least 10% of your body weight will decrease edema in your legs. Eat a low fat high potassium diet. Exercise daily. Activity:: Activity as Tolerated Equipment/Supplies:: No Equipment Needed Diet:: Other Discharge Orders Discharge Orders: Discharge Order (Routine); Ordered 03/29/19 Ordered By: Debra Hill Other Ambulatory Orders: Basic Metabolic Panel (Routine) Location: None Selected Ordered By: Debra Hill DS: Summary Status at Discharge Functional status at discharge: independent ambulation Overall status at discharge: patient is back to baseline Mental Status: mental status grossly normal Speech and Movement: speech and movement normal Mood: congruent mood Affect: normal affect Exam Narrative Exam Narrative: General: Pleasant obese female, A&OX3, sitting comfortably in bed, navigating smart phone Neurological: A&OX3, no focal deficits Psychiatric: calm Skin: Large bruise RUE - green. HEENT: Atraumatic, normocephalic, EOMI, MMM, no goiter or JVD Cardiovascular: RRR, no m/r/g Lungs: CTAB Gastrointestinal: soft, nondistended, nontender Extremities: Trace edema BLE's, no c/c. Psych Mental Status: mental status grossly normal Speech and Movement: speech and movement normal Mood: congruent mood Affect: normal affect DS: Data Vitals/I&O Vitals and I&O: Vital Signs Temperature 36.5 C 03/29/19 07:20 Temperature Source Tympanic 03/29/19 07:20 Pulse 81 03/29/19 07:20 Pulse Rhythm Regular 03/29/19 07:30 Respiratory Rate 16 03/29/19 07:20 Respiratory Effort Non-Labored 03/29/19 07:30 Respiratory Depth Normal 03/29/19 07:30 Respiratory Pattern Normal 03/29/19 07:30 Blood Pressure 131/79 03/29/19 07:20 Pulse Oximetry 98 03/29/19 07:20 Oxygen Delivery Method Room Air 03/29/19 07:20 Oxygen Flow Rate 0 03/29/19 07:20 Pain Level 3 03/29/19 07:20 Intake & Output 03/28/19 03/28/19 03/29/19 11:59 23:59 11:59 Intake Total 220 / 220 400 / 400 Output Total 700 / 700 Balance 220 / 220 -300 / -300 Weight 117.027 kg 119.3 kg Intake: IV 100 / 100 Oral 120 / 120 400 / 400 Output: Urine 700 / 700 Other: Urine Color Yellow Urine Appearance Clear Clear Comment patient uses toilet independently and uses it frequently Stool Size Large Stool Characteristics Soft Formed Brown Voiding Methods Toilet Toilet Data Completed and Pending Labs on day of discharge: Labs from last 24 hours 03/29/19 03/29/19 03/28/19 07:05 07:05 18:12 WBC 8.01 RBC 4.46 Hgb 12.7 Hct 37.6 MCV 84.3 MCH 28.5 MCHC 33.8 RDW 13.7 Plt Count 423 H MPV 9.3 Immature Gran % 0.1 Neutrophils % 46.1 Lymphocytes % 38.3 Monocytes % 8.5 Eosinophils % 6.4 Basophils % 0.6 Absolute Neutrophils 3.69 Absolute Lymphocytes 3.07 Absolute Monocytes 0.68 Absolute Eosinophils 0.51 Absolute Basophils 0.05 Sodium 140 Potassium 3.5 Chloride 103 Carbon Dioxide 28.9 Anion Gap 8.1 BUN 13 Creatinine 0.80 Estimated GFR/1.73 m2 >= 60.00 Glucose 128 H Calcium 8.8 Magnesium 2.0 Urine Color Urine Clarity Urine pH Ur Specific Hecker Urine Protein Urine Ketones Urine Blood Urine Nitrite Urine Bilirubin Urine Urobilinogen Ur Leukocyte Esterase Urine RBC Urine WBC Ur Epithelial Cells Urine Crystals Urine Bacteria Urine Mucus Ur Culture Indicated? Ur Random Creatinine Cancelled Ur Random Sodium Ur Random Potassium Ur Random Calcium Urine Chloride Urine Glucose Urine Opiates Screen Urine Methadone Screen Ur Barbiturates Screen Ur Tricyclics Screen Ur Amphetamines Screen U Benzodiazepines Scrn Urine Cocaine Screen Ur THC Screen 03/28/19 03/28/19 03/28/19 18:12 18:12 18:10 WBC RBC Hgb Hct MCV MCH MCHC RDW Plt Count MPV Immature Gran % Neutrophils % Lymphocytes % Monocytes % Eosinophils % Basophils % Absolute Neutrophils Absolute Lymphocytes Absolute Monocytes Absolute Eosinophils Absolute Basophils Sodium Potassium Chloride Carbon Dioxide Anion Gap BUN Creatinine Estimated GFR/1.73 m2 Glucose Calcium Magnesium Urine Color Urine Clarity Urine pH Ur Specific Hecker Urine Protein Urine Ketones Urine Blood Urine Nitrite Urine Bilirubin Urine Urobilinogen Ur Leukocyte Esterase Urine RBC Urine WBC Ur Epithelial Cells Urine Crystals Urine Bacteria Urine Mucus Ur Culture Indicated? Ur Random Creatinine Ur Random Sodium Cancelled Ur Random Potassium Ur Random Calcium Pending Urine Chloride Pending Urine Glucose Urine Opiates Screen Urine Methadone Screen Ur Barbiturates Screen Ur Tricyclics Screen Ur Amphetamines Screen U Benzodiazepines Scrn Urine Cocaine Screen Ur THC Screen 03/28/19 03/28/19 03/28/19 18:10 18:10 18:10 WBC RBC Hgb Hct MCV MCH MCHC RDW Plt Count MPV Immature Gran % Neutrophils % Lymphocytes % Monocytes % Eosinophils % Basophils % Absolute Neutrophils Absolute Lymphocytes Absolute Monocytes Absolute Eosinophils Absolute Basophils Sodium Potassium Chloride Carbon Dioxide Anion Gap BUN Creatinine Estimated GFR/1.73 m2 Glucose Calcium Magnesium Urine Color Yellow Urine Clarity Sl cloudy Urine pH 5.5 Ur Specific Hecker >= 1.030 H Urine Protein Negative Urine Ketones Negative Urine Blood Moderate H Urine Nitrite Negative Urine Bilirubin Negative Urine Urobilinogen 0.2 Ur Leukocyte Esterase Negative Urine RBC 0-2 Urine WBC 5-10 Ur Epithelial Cells Many Urine Crystals Negative Urine Bacteria Many Urine Mucus Negative Ur Culture Indicated? Yes Ur Random Creatinine 88.59 Ur Random Sodium 129 Ur Random Potassium 33 Ur Random Calcium Urine Chloride Urine Glucose Negative Urine Opiates Screen Negative Urine Methadone Screen Negative Ur Barbiturates Screen Negative Ur Tricyclics Screen Negative Ur Amphetamines Screen Negative U Benzodiazepines Scrn Negative Urine Cocaine Screen Negative Ur THC Screen Negative 03/28/19 18:10 WBC RBC Hgb Hct MCV MCH MCHC RDW Plt Count MPV Immature Gran % Neutrophils % Lymphocytes % Monocytes % Eosinophils % Basophils % Absolute Neutrophils Absolute Lymphocytes Absolute Monocytes Absolute Eosinophils Absolute Basophils Sodium 139 Potassium 3.3 L Chloride 101 Carbon Dioxide 29.0 Anion Gap 9.0 BUN 15 Creatinine 0.92 Estimated GFR/1.73 m2 >= 60.00 Glucose 135 H Calcium 8.9 Magnesium Urine Color Urine Clarity Urine pH Ur Specific Hecker Urine Protein Urine Ketones Urine Blood Urine Nitrite Urine Bilirubin Urine Urobilinogen Ur Leukocyte Esterase Urine RBC Urine WBC Ur Epithelial Cells Urine Crystals Urine Bacteria Urine Mucus Ur Culture Indicated? Ur Random Creatinine Ur Random Sodium Ur Random Potassium Ur Random Calcium Urine Chloride Urine Glucose Urine Opiates Screen Urine Methadone Screen Ur Barbiturates Screen Ur Tricyclics Screen Ur Amphetamines Screen U Benzodiazepines Scrn Urine Cocaine Screen Ur THC Screen Preliminary micro results at discharge 03/28/19 18:10 Urine Culture - Preliminary Urine - Reflex from Ua Gram Positive Brianna,Mixed Gram Negative Ayden [facility] Medical History Abnormal serum creatinine level (Acute 07/2018) Serious Creatinine elevation, with resolution between episodes of dehydration .. Alopecia Anemia Dehydration (Inactive ~08/21/18) Several episodes now .. She can almost gauge her K levels based on mm weakness. [ ] BMP [ ] IVF-KCl Bolus-K have helped with hypokalemia in between bouts of diarrhea/dehydration when IVF not needed. 09/2018, ik Depression GERD (gastroesophageal reflux disease) Marylou's thyroiditis Hx of adenomatous colonic polyps Hypertension (Chronic) Hypokalemia (Acute 11/07/16) Chronic, possible 2' IBS/Diarrhea. Continued despite GI improvements, albeit improved. Trial Eplerenone, to be followed by HCTZ decrease. 10/09/18 Intermittent improvement, but unsteady and unpredictable .. Monisha seems unable to maintain her own K levels WNL w/o bolus/infusions at this time. Unable to tolerate K-sparing diuretics. Cont to research, evaluate, consult .. 09/2018, ik Irritable bowel syndrome diarrhea predominant Migraine headache with aura (Chronic) DR. VALDEZ 08/29/11 Filtec Vertigo and/or pain Preeclampsia (Acute) Rectal hemorrhage (Inactive 03/02/15) Reflux esophagitis Sustained VT (ventricular tachycardia) (Acute) during hypokalemia episode Surgical History section x3 Colonoscopy - MAC (03/16/14) w/ bx 2015-serrated adenomatous polyp EGD - MAC 2015 Endometrial Ablation 2007 2012 H/O colonoscopy (Chronic 12/05/17) History of esophagogastroduodenoscopy (EGD) (Chronic 12/05/17) Tonsillectomy Family History Mother Pulmonary hypertension Heart disease valve replacement Father Prostate cancer Essential hypertension Parkinsons Sister Uterine cancer Brother No problems noted. 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 Pets and animals: Yes Pets and animals: cat(s) and dog(s) What is your relationship status?: living with partner Panel score (0-1 are the most socially isolated patients): 1 What type of physical activity do you participate in: walking Duration: 15-30 minutes/day Frequency: 3-4 times per week Seatbelt use: always Working smoke detector in home: Yes Fire extinguisher in home: Yes Carbon monox detector in home: Yes Firearms in home: No Do you feel safe at home: Yes Do you feel safe in your relationship?: Yes Female Reproductive History Menstrual control method: permanent sterilization History History 3 Para 4 Hx # Term Pregnancies Multiple births 1 Hx # Pregnancies Ectopic pregnancies AB induced Hx Number of Living Children AB spontaneous
[2019-03-31 09:32] LABS: Calcium (Random Urine) 11.6 mg/dL (See Note)
== END 2019-03-29 10:50 | disposition home or self-care (01) ==
PROVIDERS: Admitting Provider Internal Medicine; PCP Student in an Organized Health Care Education/Training Program; Visit Provider Internal Medicine
DX: E87.6 Hypokalemia (principal); I10 Essential (primary) hypertension; I89.0 Lymphedema, not elsewhere classified; F32.9 Major depressive disorder, single episode, unspecified; K21.9 Gastro-esophageal reflux disease without esophagitis
CPT/HCPCS: 36415; 80048; 80307; 99220; 99239; 81003; 81015; 82340; 82436; 82565; 83735; 84133; 84300; 85025; 87086; 93005; 93010; 99217; G0378; J3480

== ENCOUNTER 2019-03-31 11:18 | Outpatient (CLI) | payer BC, SELFPAY ==
[2019-03-31 12:42] LABS: Anion Gap 9.6 mmol/L (3-11); BUN 16 mg/dL (7-18); CO2 28.4 mmol/L (21.0-32.0); Calcium 9.2 mg/dL (8.5-10.1); Chloride 101 mmol/L (98-107); Glucose 98 mg/dL (74-106); Magnesium 1.6 mg/dL (1.8-2.4); Potassium 3.7 mmol/L (3.5-5.1); Sodium 139 mmol/L (136-145)
== END 2019-03-31 11:38 ==
PROVIDERS: PCP Student in an Organized Health Care Education/Training Program; Visit Provider Student in an Organized Health Care Education/Training Program
DX: E87.6 Hypokalemia (principal); R53.83 Other fatigue
CPT/HCPCS: 36415; 80048; 83735

== ENCOUNTER 2019-04-01 10:29 | Outpatient (CLI) | payer BC, SELFPAY ==
[2019-04-01 11:23] LABS: Anion Gap 5.4 mmol/L (3-11); BUN 15 mg/dL (7-18); CO2 32.6 mmol/L (21.0-32.0); CREATININE 0.91 mg/dL (0.55-1.02); Calcium 9.4 mg/dL (8.5-10.1); Chloride 103 mmol/L (98-107); Glucose 147 mg/dL (74-106); Magnesium 1.6 mg/dL (1.8-2.4); Potassium 3.8 mmol/L (3.5-5.1); Sodium 141 mmol/L (136-145)
== END 2019-04-01 10:49 ==
PROVIDERS: PCP Student in an Organized Health Care Education/Training Program; Visit Provider Student in an Organized Health Care Education/Training Program
DX: E87.6 Hypokalemia (principal); R53.83 Other fatigue
CPT/HCPCS: 36415; 80048; 83735

== ENCOUNTER 2019-04-03 08:05 | Outpatient (CLI) | payer BC, SELFPAY ==
[2019-04-03 08:58] LABS: Anion Gap 12.6 mmol/L (3-11); BUN 19 mg/dL (7-18); CO2 26.4 mmol/L (21.0-32.0); CREATININE 0.87 mg/dL (0.55-1.02); Calcium 9.3 mg/dL (8.5-10.1); Chloride 100 mmol/L (98-107); Glucose 140 mg/dL (74-106); Magnesium 1.9 mg/dL (1.8-2.4); Potassium 3.5 mmol/L (3.5-5.1); Sodium 139 mmol/L (136-145)
== END 2019-04-03 08:25 ==
PROVIDERS: PCP Student in an Organized Health Care Education/Training Program; Visit Provider Student in an Organized Health Care Education/Training Program
DX: E87.6 Hypokalemia (principal); R53.83 Other fatigue; I10 Essential (primary) hypertension
CPT/HCPCS: 36415; 80048; 83735

== ENCOUNTER 2019-04-07 07:54 | Outpatient (CLI) | payer BC, SELFPAY ==
[2019-04-07 09:36] LABS: Anion Gap 11.4 mmol/L (3-11); BUN 19 mg/dL (7-18); CO2 30.6 mmol/L (21.0-32.0); CREATININE 0.91 mg/dL (0.55-1.02); Calcium 9.2 mg/dL (8.5-10.1); Chloride 99 mmol/L (98-107); Glucose 129 mg/dL (74-106); Magnesium 1.8 mg/dL (1.8-2.4); Potassium 3.1 mmol/L (3.5-5.1); Sodium 141 mmol/L (136-145)
== END 2019-04-07 08:14 ==
PROVIDERS: PCP Student in an Organized Health Care Education/Training Program; Visit Provider Student in an Organized Health Care Education/Training Program
DX: E87.6 Hypokalemia (principal); R53.83 Other fatigue
CPT/HCPCS: 36415; 80048; 83735

== ENCOUNTER 2019-04-08 08:11 | Outpatient (CLI) | payer BC, SELFPAY ==
[2019-04-08 09:53] LABS: Anion Gap 11.3 mmol/L (3-11); BUN 20 mg/dL (7-18); CO2 27.7 mmol/L (21.0-32.0); CREATININE 1.01 mg/dL (0.55-1.02); Chloride 101 mmol/L (98-107); Estimated GFR 58.26 (mL/min/1.73m2); Glucose 113 mg/dL (74-106); Magnesium 1.6 mg/dL (1.8-2.4); Potassium 3.1 mmol/L (3.5-5.1); Sodium 140 mmol/L (136-145)
== END 2019-04-08 08:31 ==
PROVIDERS: PCP Student in an Organized Health Care Education/Training Program; Visit Provider Student in an Organized Health Care Education/Training Program
DX: E87.6 Hypokalemia (principal); R60.0 Localized edema
CPT/HCPCS: 36415; 80048; 83735

== ENCOUNTER 2019-04-11 08:20 | Outpatient (CLI) | payer BC, SELFPAY ==
[2019-04-11 09:59] LABS: Anion Gap 9.2 mmol/L (3-11); BUN 18 mg/dL (7-18); CO2 28.8 mmol/L (21.0-32.0); Chloride 101 mmol/L (98-107); Glucose 136 mg/dL (74-106); Magnesium 1.8 mg/dL (1.8-2.4); Potassium 3.3 mmol/L (3.5-5.1); Sodium 139 mmol/L (136-145)
== END 2019-04-11 08:40 ==
PROVIDERS: PCP Student in an Organized Health Care Education/Training Program; Visit Provider Student in an Organized Health Care Education/Training Program
DX: E87.6 Hypokalemia (principal); E83.42 Hypomagnesemia
CPT/HCPCS: 36415; 80048; 83735

== ENCOUNTER 2019-04-14 08:08 | Outpatient (CLI) | payer BC, SELFPAY ==
[2019-04-14 09:03] LABS: Anion Gap 5.7 mmol/L (3-11); BUN 21 mg/dL (7-18); CO2 33.3 mmol/L (21.0-32.0); Calcium 9.1 mg/dL (8.5-10.1); Chloride 101 mmol/L (98-107); Estimated GFR 58.93 (mL/min/1.73m2); Glucose 123 mg/dL (74-106); Magnesium 1.7 mg/dL (1.8-2.4); Sodium 140 mmol/L (136-145)
[2019-04-14 10:05] LABS: Potassium 2.9 mmol/L (3.5-5.1)
== END 2019-04-14 08:28 ==
PROVIDERS: PCP Student in an Organized Health Care Education/Training Program; Visit Provider Student in an Organized Health Care Education/Training Program
DX: E87.6 Hypokalemia (principal); E83.42 Hypomagnesemia
CPT/HCPCS: 36415; 80048; 83735

== ENCOUNTER 2019-04-14 16:03 | Observation (INO) | payer BC, SELFPAY ==
[2019-04-14 16:49] VITALS: PULSE 69
--- NOTE | 2019-04-14 16:50 | HPE_ITS ---
Date of service: 04/14/19 Time of Service: 16:50 Assessment and Plan Assessment and plan (1) Hypokalemia: Status: Acute Assessment and plan: Patient has extensive history of with specialist work-up and multiple admissions. She has had 4 infusions in the outpatient in the past week and her trend is going down and was dangerously low today. Given this, I am afraid she be even lower the sent her home, so I am admitting her per her primary care request. Take this opportunity to try her back on lisinopril, which she has tolerated in the past and should improve her potassium. Also replaced her triamterene hydrochlorothiazide with amiloride, so she will have a pure potassium sparing diuretic rather than combination with thiazide. I am giving her another 40 mill equivalents of IV potassium this evening along with oral repletion of aggressive dosing. She will need continued dosing based on her response with potassium levels in the morning. Ordered EKG to assess for cardiac effects and she will be on telemetry as we treat her electrolyte disorder. (2) Hypertension: Status: Chronic Assessment and plan: As above I am trying to adjust her blood pressure regimen to a combination that maximizes the potassium boosting side effects. The angioedema is noted on her history, appears to be related to the presumed mastocytosis diagnosis that was never confirmed. Patient states she tolerated lisinopril for many years without side effects such as cough or shortness of breath or hives. Part of the reason that she was on hydrochlorothiazide is her lower extremity edema. Given this concern, I am cutting her amlodipine back to 5 mg, as lower extremity edema is a common side effect of amlodipine at the higher doses. (3) Hypomagnesemia: Status: Acute Assessment and plan: Patient has frequently had low magnesium as well as potassium. we will recheck and further replace aggressively in the morning as needed. (4) Impaired fasting glucose: Status: Acute Assessment and plan: Patient has a history of impaired fasting glucose and some symptoms possibly consistent with type 2 diabetes. Will order A1c with labs. (5) Depressive disorder: Status: Acute Assessment and plan: Patient states her depression has largely been in remission. Her medical regimen is unorthodox with short acting venlafaxine low- dose in the morning, but will continue this. (6) DVT prophylaxis: Status: Acute Assessment and plan: She is under 50 and ambulatory, so will forego heparin. Encouraged her to get up and move around. Will use teds. History of Present Illness History of Present Illness Chief Complaint: severe hypokalemia Narrative: 48-year-old female with history of hypertension and potassium wasting disease of unclear etiology, with history of multiple admissions for hypokalemia, presenting with severe hypokalemia despite for outpatient potassium infusions in the past week. She states she can tell her potassium is low because her muscles are weak and she has low energy. She was given 40 mEq IV after her potassium was found at 2.9 this morning, but this only raised her serum level two 3.0. Given her history of potassium trending down despite aggressive repletion, with persistent severe hypokalemia, she was admitted observation status for more aggressive IV potassium and magnesium replacement and medication changes under observation. She was given potassium infusions Sunday, Sunday, , and Sunday of last week in the outpatient infusion room. She received 40 mill equivalents each time. She also received 4 g magnesium sulfate on Sunday, Sunday, and Sunday. She states she took 120 mEq of oral potassium, the most she can tolerate Sunday and Sunday of the weekend prior to admission. She has seen cardiology locally as well as nephrology and [facility] to evaluate this issue. She is pursuing further specialist work-up, possibly with endocrinology at [facility]. She states she has had a 24-hour urine collection as well. I discussed the case with the primary care doctor Tristen who requested admission for aggressive potassium repletion and observation of diet, voiding, stooling, and other behaviors related to potassium balance. Of note, Monisha states she has tolerated lisinopril for many years without applications (angioedema noted in her history but this is not related to lisinopril). She has had intermittent palpitations in the past, but none currently. She has chronic leg edema which is about the same as normal for her. Review of Systems Narrative: No fevers or chills. She describes gradual weight gain over the past year. No current headache, history of migraines. No dizziness. No nasal congestion or sore throat or oral lesions. No cough or dyspnea. No chest pain or palpitations. Intermittent nausea, no recent vomiting. History of diarrhea, no current diarrhea, describes occasional blood with wiping when anal area irritated. She has had some irregular periods and is currently bleeding moderately. No other vaginal discharge. No current joint redness or swelling. No rash or other skin lesions. She does drink a lot and urinating a lot, and is interested in testing for diabetes. All systems reviewed & are unremarkable except as noted in HPI and below PFSH Medical History Abnormal serum creatinine level (Acute 07/2018) Serious Creatinine elevation, with resolution between episodes of dehydration .. Alopecia Anemia Dehydration (Inactive ~08/21/18) Several episodes now .. She can almost gauge her K levels based on mm weakn ess. [ ] BMP [ ] IVF-KCl Bolus-K have helped with hypokalemia in between bouts of diarrhea/dehydration when IVF not needed. 09/2018, mian Depression Discharge planning issues (Inactive) Encounter for insertion of venous access port (Acute) GERD (gastroesophageal reflux disease) Marylou's thyroiditis Hx of adenomatous colonic polyps Hypertension (Chronic) Hypokalemia (Acute 11/07/16) Chronic, possible 2' IBS/Diarrhea. Continued despite GI improvements, albeit improved. Trial Eplerenone, to be followed by HCTZ decrease. 10/09/18 Intermittent improvement, but unsteady and unpredictable .. Monisha seems unable to maintain her own K levels WNL w/o bolus/infusions at this time. Unable to tolerate K-sparing diuretics. Cont to research, evaluate, consult .. 09/2018, mian Irritable bowel syndrome diarrhea predominant Migraine headache with aura (Chronic) DR. VALDEZ 08/29/11 [place] Vertigo and/or pain Poor venous access on examination (Acute) Preeclampsia (Acute) Rectal hemorrhage (Inactive 03/02/15) Reflux esophagitis Sustained VT (ventricular tachycardia) (Acute) during hypokalemia episode Surgical History section x3 Colonoscopy - MAC (03/16/14) w/ bx 2015-serrated adenomatous polyp EGD - MAC 2015 Endometrial Ablation 2007 2012 H/O colonoscopy (Chronic 12/05/17) History of esophagogastroduodenoscopy (EGD) (Chronic 12/05/17) Tonsillectomy Family History Mother Pulmonary hypertension Heart disease valve replacement Father Prostate cancer Essential hypertension Parkinsons Sister Uterine cancer Brother No problems noted. 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 Pets and animals: Yes Pets and animals: cat(s) and dog(s) What is your relationship status?: living with partner Panel score (0-1 are the most socially isolated patients): 1 What type of physical activity do you participate in: walking Duration: 15-30 minutes/day Frequency: 3-4 times per week Seatbelt use: always Working smoke detector in home: Yes Fire extinguisher in home: Yes Carbon monox detector in home: Yes Firearms in home: No Do you feel safe at home: Yes Do you feel safe in your relationship?: Yes Female Reproductive History Menstrual control method: permanent sterilization History History 3 Para 4 Hx # Term Pregnancies Multiple births 1 Hx # Pregnancies Ectopic pregnancies AB induced Hx Number of Living Children AB spontaneous Meds Home Medications and Allergies Home Medications Medication Instructions Recorded Confirmed Type multivitamin [Daily Multi-Vitamin] 1 ea PO DAILY 07/22/14 04/14/19 History Hair Prosthesis u MISCELLANEOUS DAILY #1 u 05/19/15 11/29/18 Clinic prochlorperazine maleate 5 mg 5 mg PO Q8H PRN #30 tab-cap 03/04/18 04/14/19 Rx tablet bupropion HCl 300 mg 24 hr tablet, 300 mg PO DAILY #90 tab 05/15/18 04/14/19 Rx extended release omeprazole 40 mg capsule,delayed 40 mg PO DAILY #90 tab 09/05/18 04/14/19 Rx release gabapentin 300 mg capsule 300 mg PO TID #270 tab-cap 01/23/19 04/14/19 Rx ondansetron HCl 4 mg tablet 4 mg PO Q8H PRN tab 01/28/19 04/14/19 History sumatriptan succinate 100 mg tablet See Rx Instructions PO .COMPLEX 01/28/19 04/14/19 History PRN tab melatonin 10 mg PO HS PRN 03/03/19 04/14/19 History pramipexole [Mirapex] 0.25 mg PO HS 03/03/19 04/14/19 History loperamide 2 mg PO QLOOSE PRN #0 cap 03/05/19 04/14/19 Rx magnesium chloride [Mag 64] 64 mg PO TID #120 tab 03/14/19 04/14/19 Rx carvedilol [Coreg] 25 mg PO BID 03/28/19 04/14/19 History triamterene-hydrochlorothiazid 1 cap PO DAILY 03/28/19 04/14/19 History [Dyazide] potassium chloride [Klor-Con M20] 40 meq PO TID #21 tab 03/29/19 04/14/19 Rx amlodipine 10 mg tablet 10 mg PO DAILY #90 tab 04/01/19 04/14/19 Rx venlafaxine 25 mg tablet 25 mg PO DAILY #30 tab 04/07/19 04/14/19 Rx Allergies Allergy/AdvReac Type Severity Reaction Status Date / Time iron [From Venofer] Allergy Severe Swelling/Ed Verified 04/09/19 15:50 brandon atropine Allergy Intermediate HIVES, Verified 04/09/19 15:50 SWOLLEN spironolactone Allergy Intermediate Skin Rash Verified 04/09/19 15:50 eplerenone AdvReac Intermediate swelling; Verified 04/09/19 15:50 SOB Exam Narrative Exam Narrative: General: Alert and oriented x3, pleasant, no apparent distress. HEENT: Normocephalic/atraumatic. Pupils equal round reactive light with extraocular motion intact, conjunctive are clear, no icterus. Moist mucous membranes with oropharynx benign. Neck is supple with no lymphadenopathy and normal thyroid. Lungs: Clear to auscultation bilaterally with normal effort Cardiovascular: Regular rate and rhythm no murmurs gallops or rubs Abdomen: Active bowel sounds, soft, nontender nondistended, no masses Extremities: 1-2+ edema to shins bilaterally, nontender to palpation. No cyanosis or clubbing. MSK: No joint redness or swelling. Mild tenderness right lower lumbar area. No CVA tenderness Neurologic: Normal speech, gait, coordination. Cranial nerves grossly intact. No tremor. Psychiatric: Normal mood and affect. Normal thought process. Skin: No rashes or open wounds. No hyperpigmentation.
[2019-04-14 17:02] VITALS: BP 142/92; PULSE 70; RESP 18; TEMP 36.3; O2SAT 98
[2019-04-14 17:05] VITALS: BP 142/92; PULSE 70; RESP 18; TEMP 36.3; O2SAT 98
[2019-04-14] MEDS: Lisinopril 10 MG TAB PO (17:34)
[2019-04-14] MEDS: POTASSIUM CHLORIDE 20 MEQ/100 ML BAG 50 MEQ IVPB ×2 (18:29→20:36)
[2019-04-14] MEDS: Magnesium Chloride 64 MG TABCR PO (20:05)
[2019-04-14] MEDS: Potassium Chloride 20 MEQ TABCR 40 MEQ PO (20:06)
[2019-04-14] MEDS: Carvedilol 12.5 MG TAB 25 MG PO (20:06)
[2019-04-14] MEDS: Pramipexole 0.25 MG TAB PO (22:15)
[2019-04-14] MEDS: Gabapentin 300 MG CAP 900 MG PO (22:15)
[2019-04-14 23:45] VITALS: PULSE 69
[2019-04-15] VITALS (7 sets, daily range): BP systolic 114–140; BP diastolic 75–88; PULSE 64–74; RESP 17–18; TEMP 36.4–37.2; O2SAT 95–98
[2019-04-15 07:15] LABS: Anion Gap 8.9 mmol/L (3-11); BUN 16 mg/dL (7-18); CO2 29.1 mmol/L (21.0-32.0); CREATININE 0.75 mg/dL (0.55-1.02); Calcium 8.5 mg/dL (8.5-10.1); Chloride 105 mmol/L (98-107); Glucose 143 mg/dL (74-106); Magnesium 2.3 mg/dL (1.8-2.4); Potassium 3.1 mmol/L (3.5-5.1); Sodium 143 mmol/L (136-145)
[2019-04-15 08:08] LABS: Hemoglobin A1C 6.6 % (3.8-5.6)
[2019-04-15] MEDS: amLODIPine 5 MG TAB PO (08:21)
[2019-04-15] MEDS: Venlafaxine 50 MG TAB 25 MG PO (08:21)
[2019-04-15] MEDS: Lisinopril 20 MG TAB PO (08:23)
[2019-04-15] MEDS: Carvedilol 12.5 MG TAB 25 MG PO ×2 (08:23→20:29)
[2019-04-15] MEDS: Potassium Chloride 20 MEQ TABCR 40 MEQ PO ×4 (08:23→20:29)
[2019-04-15] MEDS: buPROPion-XL 150 MG TABCR 300 MG PO (08:23)
[2019-04-15] MEDS: Omeprazole 20 MG CAPCR 40 MG PO (08:23)
[2019-04-15] MEDS: Magnesium Chloride 64 MG TABCR PO ×2 (08:24→13:03)
--- NOTE | 2019-04-15 11:02 | PDOC.CMIN ---
Care Management Initial Assess REASON FOR HOSPITALIZATION:: Hypokalemia PAST MEDICAL HISTORY/PAST SURGICAL HISTORY:: Medical History . Abnormal serum creatinine level (Acute 07/2018). Serious Creatinine elevation, with resolution between episodes of dehydration .. Alopecia. Anemia. Dehydration (Inactive ~08/21/18). Several episodes now .. She can almost gauge her K levels based on mm weakness. [ ] BMP [ ] IVF-KCl Bolus-K have helped with hypokalemia in between bouts of diarrhea/dehydration when IVF not needed. 09/2018, ik. Depression. GERD (gastroesophageal reflux disease). Marylou's thyroiditis. Hx of adenomatous colonic polyps. Hypertension. Hypokalemia (Acute 11/07/16). Chronic, possible 2' IBS/Diarrhea. Continued despite GI improvements, albeit improved. Trial Eplerenone, to be followed by HCTZ decrease. 10/09/18 Intermittent improvement, but unsteady and unpredictable .. Monisha seems unable to maintain her own K levels WNL w/o bolus/infusions at this time. Unable to tolerate K-sparing diuretics. Cont to research, evaluate, consult .. 09/2018, ik. Irritable bowel syndrome. diarrhea predominant. Migraine headache with aura (Chronic). DR. VALDEZ 08/29/11. [employer] works. Vertigo and/or pain. Preeclampsia (Acute). Rectal hemorrhage (Inactive 03/02/15). Reflux esophagitis. Sustained VT (ventricular tachycardia) (Acute). during hypokalemia episode PREVIOUS FUNCTIONAL STATUS/SOCIAL/FAMILY SUPPORTS:: Monisha lives in a single family home in [facility] [place] [facility] with her partner of 6 years, Jayne. Between them they have 2 girls and 2 boys livinhg with them (all teenagers) and Monisha has twin boys in their twenties who live in the community. 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 Monisha is independent at baseline and receives no community supports. CURRENT FUNCTIONAL STATUS:: Monisha was lying on her side with her eyes closed. Per MD, she will likely discharge tomorrow; CM continues to follow. ADVANCE DIRECTIVES:: On file at [employer]. Has patient been provided with information about the portal?: Yes Did the patient sign up for the portal?: Yes (Previously) CODE STATUS:: Full Code INSURANCE COVERAGE / FINANCIAL ISSUES:: LEE/WALI Morrell CURRENT HOME/COMMUNITY SERVICES/EQUIPMENT:: No current services or equipment. PRIMARY CARE PHYSICIAN:: Dr. Ramon POTENTIAL DISCHARGE NEEDS:: Follow up with PCP and discharge plan of care PATIENT/FAMILY EDUCATION NEEDS:: Discharge plan, limitations, follow up plan, Ask Me Three. ANTICIPATED BARRIERS TO DISCHARGE:: None identified at this time. TRANSPORTATION:: Via private vehicle with family. PLAN:: Monisha will discharge home with no new services. She will follow up with her PCP and plan of care as prescribed. CM will continue to provide support regarding discharge planning considerations.
[2019-04-15] MEDS: aMILoride HCL 5 MG TAB PO (11:34)
[2019-04-15] MEDS: Loperamide 2 MG CAP PO ×2 (13:03→17:43)
--- NOTE | 2019-04-15 13:25 | W.INDIABCONS ---
Date of service: 04/15/19 Time of Service: 13:26 Diabetes Inpatient Consult DESCRIPTION/ASSESSMENT: Appreciate diabetes consult for Monisha Das who is hospitalized with low potassium requiring infusion which has been an ongoing problem for her since July or before. 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 She has good understanding of diabetes, diagnostic criteria, risk factors. She has had pre-diabetes first identified 2011 with A1c 6.6 today meeting criteria for type 2 Diabetes diagnosis. Monisha has been tracking her food and physical activity on her fitbit since 04/02/19. She feels she is stronger but has not lost weight. She is aware of the prevent T2 protocol of weight loss and 150 minutes physical activity a week and is working on this prior to this diagnosis. Discussed Potassium metabolism in one of her previous inpatient stays regarding acid/alkaline balance. She has not cared for meat, but this is desired to decrease her blood pH as away to retain Potassium. She attempts to decrease fruit although this is a favorite food for her. She further denies the use of laxatives and purging. She denies current diarrhea or abnormal elimination pattern. She states she invites medical staff to observe her elimination or whenever she is in the bathroom and to search her room for any potential substances of abuse that could be affecting her electrolyte imbalance as she understands the potential impact of these behaviors on her health in general and to this particular problem. She carefully tracks her labs and reports. She states potential for dehydration with use of these activities/substances but states she has not experienced dehydration. She denies weight loss despite trying by cutting calories and increase activity. INTERVENTION: Reviewed diabetes self management and she has good understanding. Unable to elucidate Potassium dilemma but will remain supportive of her efforts to manage independently. PLAN: Will follow her progress and support medical recommendations in relation to her nutrition. She will continue to increase PA and decrease caloric intake as possible and believes she can fall back to pre-diabetes level over time. Time Spent in Nutritional Counseling and Treatment: 20 minutes face to face
--- NOTE | 2019-04-15 13:53 | CHAPLAIN ---
Monisha sent me an email asking if I would bring her some books to read as she was admitted yesterday. When she visited she said is beginning to feel better, but it's been challenging not to have answers about is causing her depletion. 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 It has also been difficult to have different hospitalist/software implementation project manager dealing with her each time she is admitted, and seeing multiple hospitalists/software implementation project manager during the course of one admission, she said. Her daughter will be in to visit later today. Monisha is Spiritism and has been connected to [facility] in the past.
--- NOTE | 2019-04-15 15:19 | PHARADMIT ---
Admission Pharmacy Clinical Review hypokalemia Code Status Full Code Current Weight 120 kg Renally Cleared and Narrow Therapeutic Index Meds Crcl ~117.7 mL/min using adjusted body weight current meds okay QTc Value / Action Taken QTc 453 BP Control, Fever BP 114/81 afebrile Electrolytes reviewed K+ 3.1 DVT Prophylaxis none Opiate Usage / Scheduled Bowel Regimen Ordered no/no Plt/SCr for Heparin / Enoxaparin no labs INR for Warfarin n/a H/H stable, WBC/Bands no labs Antibiotic appropriateness none Cultures and Sensitivities none Surgical ABX d/c within 24 hr n/a DM control / Insulin Dosing BG 143 A1c 6.6 none (MD aware) Heart Failure (Check EF%) (ERROL's, B-Block, Diuretics) amilorode, carvedilol, lisinopril IV to PO Switch n/a Home Meds Reviewed -prochlorperazine may enhance the ulcerogenic effect of potassium -bupropion may inhibit the metabolism of carvedilol; consider alternatives/ watch for increased effects/toxicity -separate admin of magnesium from gabapentin -pramipexole and prochlorperazine may diminish the therapeutic effect of each other; recommended to generally avoid this combination/monitor for reduced effects of both therapies -potassium my enhance the hyperkalemic effect to triamterene Home Meds Not Ordered ondansetron and prochlorperazine held due to increased risk QTc prolongation with electrolyte abnormalities (hypokalemia and hypomagnesemia). multivitamin, sumatriptan triamterene/HCTZ replaced with amiloride Comments hx impaired fasting glucose and some symptoms possible consistent w/ type 2 diabetes per H&P, A1c 6.6 this morning... no MD note yet today since A1c result, but I did mention this during morning meeting. continue to watch K+ close/frequent monitor required if using amiloride in pts with diabetes, renal or liver disfunction
--- NOTE | 2019-04-15 15:27 | W.PM.PROGNOT ---
Date of Service Date of service: 04/15/19 Time of Service: 10:45 Assessment and Plan Assessment and plan (1) Hypokalemia: Status: Acute Assessment and plan: potassium increased to 40 meq QID, will repeat level in am. Patient has extensive history of with specialist work-up and multiple admissions. She has had 4 infusions in the outpatient in the past week and her trend is going down and became dangerously low. She was started back on lisinopril, which she has tolerated in the past and should improve her potassium. Also replaced her triamterene hydrochlorothiazide with amiloride which will be started today, so she will have a pure potassium sparing diuretic rather than combination with thiazide. She will need continued dosing based on her response with potassium levels in the morning. (2) Hypertension: Status: Chronic Assessment and plan: blood pressures are well controlled. amlodipine was decreased to 5 mg and we may be able to discontinue it all together. this may be contributing to lower extremity edema and blood pressure control may be adequate on lisinopril and diuretic. (3) Hypomagnesemia: Status: Acute Assessment and plan: stable will continue replacement daily and continue to monitor. (4) Diabetes mellitus type 2 in obese: Status: Acute Assessment and plan: A1C is 6.6, will order diabetic education and diabetic diet (5) Discharge planning issues: Status: Acute Assessment and plan: home with no services once medically stable. Subjective Subjective Patient reports: no new complaints Interval history since last seen: no diarrhea or vomiting. no fevers, hemodynamically stable. with increased leg edema off lasix while waiting for new diuretic. tolerating a regular diet Exam Const General: cooperative, healthy appearing, comfortable and no acute distress Nutritional Appearance: obese Orientation: alert, awake and oriented x3 [facility] Head: normal to inspection, normocephalic and atraumatic Mouth: moist mucous membranes Resp Effort & Inspection: normal respiratory effort Auscultation: clear to auscultation bilaterally Cardio Rate: regular rate Rhythm: regular rhythm Heart Sounds: S1 normal and S2 normal GI Inspection: normal to inspection and obesity Palpation: soft Auscultation: normal bowel sounds Skin General skin exam: no rashes or lesions noted Neuro General: alert, awake and oriented x3 Extrem General: edema Laterality: bilateral Objective Objective Clinical Data: Abnormal lab results 04/15/19 04/15/19 Range/Units 06:30 06:30 Potassium 3.1 L (3.5-5.1) mmol/L Glucose 143 H (74-106) mg/dL Hemoglobin A1c 6.6 H (3.8-5.6) % Vital Signs Temperature 36.7 C 04/15/19 07:53 Temperature Source Temporal Artery Scan 04/15/19 07:53 Pulse 67 04/15/19 07:53 Pulse Rhythm Regular 04/15/19 09:20 Respiratory Rate 17 04/15/19 07:53 Respiratory Effort Non-Labored 04/15/19 09:20 Respiratory Depth Normal 04/15/19 09:20 Respiratory Pattern Normal 04/15/19 09:20 Blood Pressure 114/81 04/15/19 07:53 Pulse Oximetry 95 04/15/19 07:53 Oxygen Delivery Method Room Air 04/15/19 07:53 Oxygen Flow Rate 0 04/15/19 07:53 Pain Level 0 04/15/19 07:53 Intake & Output 04/14/19 04/15/19 04/15/19 23:59 11:59 23:59 Intake Total 100 / 100 240 / 240 Output Total 400 / 400 Balance 100 / 100 -400 / -160 240 / -160 Weight 120.2 kg 120 kg Intake: IV 100 / 100 Oral 240 / 240 Output: Urine 400 / 400 Other: Urine Appearance Clear Clear Comment PT DOCUMENTED Laboratory Results Sodium 143 mmol/L (136-145) 04/15/19 06:30 Potassium 3.1 mmol/L (3.5-5.1) L 04/15/19 06:30 Chloride 105 mmol/L (98-107) 04/15/19 06:30 Carbon Dioxide 29.1 mmol/L (21.0-32.0) 04/15/19 06:30 Anion Gap 8.9 mmol/L (3-11) 04/15/19 06:30 BUN 16 mg/dL (7-18) 04/15/19 06:30 Creatinine 0.75 mg/dL (0.55-1.02) 04/15/19 06:30 Estimated GFR/1.73 m2 >= 60.00 (mL/min/1.73m2) 04/15/19 06:30 Glucose 143 mg/dL (74-106) H 04/15/19 06:30 Hemoglobin A1c 6.6 % (3.8-5.6) H 04/15/19 06:30 Calcium 8.5 mg/dL (8.5-10.1) 04/15/19 06:30 Magnesium 2.3 mg/dL (1.8-2.4) 04/15/19 06:30
[2019-04-15] MEDS: Magnesium Chloride 64 MG TABCR (20:30)
[2019-04-15] MEDS: Gabapentin 300 MG CAP 900 MG PO (21:40)
[2019-04-15] MEDS: Pramipexole 0.25 MG TAB PO (21:40)
[2019-04-16] MEDS: Melatonin 3 MG TAB 9 MG PO (02:04)
[2019-04-16 07:03] VITALS: PULSE 68
[2019-04-16 07:18] VITALS: BP 144/81; PULSE 69; RESP 17; TEMP 36.5; O2SAT 97
[2019-04-16 07:32] LABS: Anion Gap 8.6 mmol/L (3-11); BUN 12 mg/dL (7-18); CO2 25.4 mmol/L (21.0-32.0); Calcium 8.7 mg/dL (8.5-10.1); Chloride 108 mmol/L (98-107); Glucose 94 mg/dL (74-106); Potassium 4.3 mmol/L (3.5-5.1); Sodium 142 mmol/L (136-145)
[2019-04-16] MEDS: Carvedilol 12.5 MG TAB 25 MG PO (08:03)
[2019-04-16] MEDS: buPROPion-XL 150 MG TABCR 300 MG PO (08:04)
[2019-04-16] MEDS: aMILoride HCL 5 MG TAB PO (08:04)
[2019-04-16] MEDS: Potassium Chloride 20 MEQ TABCR 40 MEQ PO (08:05)
[2019-04-16] MEDS: Magnesium Chloride 64 MG TABCR PO (08:05)
[2019-04-16] MEDS: Venlafaxine 50 MG TAB 25 MG PO (08:06)
[2019-04-16] MEDS: Omeprazole 20 MG CAPCR 40 MG PO (08:06)
[2019-04-16] MEDS: amLODIPine 5 MG TAB PO (08:06)
[2019-04-16] MEDS: Lisinopril 20 MG TAB PO (08:07)
--- NOTE | 2019-04-16 08:43 | PDOC.CMPRO ---
- If Service Date Differs Date of service: 04/16/19 Time of Service: 08:43 Care Management Progress Note S/O: A: Monisha is a 48 year old woman admitted on 04/14/2019 with hypokalemia P:Monisha will likely return home with no new services. She will follow up with her PCP and discharge plan of care. CM will continue to support patient and discharge planning concerns.
--- NOTE | 2019-04-16 08:54 | DSE_ITS ---
Date of service: 04/16/19 Time of Service: 08:45 DS: Diagnosis Discharge Diagnosis (1) Hypokalemia: Status: Acute (2) Hypertension: Status: Chronic (3) Hypomagnesemia: Status: Acute (4) Diabetes mellitus type 2 in obese: Status: Acute (5) Discharge planning issues: Status: Acute Discharge Plan Disposition Patient Disposition: HOME Condition: Improving Discharge Details Reason For Visit: HYPOKALEMIA Admit Date/Time: 04/14/19 16:03 Admit Provider: Blaine Beckman Attending Provider: Blaine Beckman Primary Care Provider: Huyen Ramon Hospital Course Hospital Course: This is a 48-year-old female with history of hypertension and potassium wasting disease of unclear etiology, with history of multiple admissions for hypokalemia, presenting with severe hypokalemia despite for outpatient potassium infusions in the past week. She states she can tell her potassium is low because her muscles are weak and she has low energy. She was given 40 mEq IV after her potassium was found at 2.9, but this only raised her serum level to 3.0. Given her history of potassium trending down despite aggressive repletion, with persistent severe hypokalemia, she was admitted observation status for more aggressive IV potassium and magnesium replacement and medication changes under observation. She has seen cardiology locally as well as nephrology and [facility]'s to evaluate this issue. She is pursuing further specialist work-up, possibly with endocrinology at [facility]. She states she has had a 24-hour urine collection as well. Her potassium was increased to 40 meq oral, magnesium replaced and remained within normal range. She was started on amiloride and lisinopril, we reduced her amlopdine dose to 5 mg daily and may consider discontinuing if bp managed on lisinopril and edema continues. She has had some improvement in her edema while here. She was noted to have an elevated fasting glucose and an A1C was obtained which was 6.6. she wishes to try diet modifications and will follow up with pcp outpatient. She received a diabetic consult while hospitalized and will continue outpatient through pcp. Home Meds and New Rx's Prescriptions: New lisinopril 20 mg Tablet 20 mg PO DAILY Qty: 30 RF: 0 amiloride 5 mg Tablet 5 mg PO DAILY Qty: 30 RF: 0 Continued prochlorperazine maleate 5 mg tablet 5 mg PO Q8H PRN Qty: 30 RF: 3 ondansetron HCl [Zofran] 4 mg tablet 4 mg PO Q8H PRNRF: 0 sumatriptan succinate 100 mg tablet See Rx Instructions PO .COMPLEX PRNRF: 0 triamterene-hydrochlorothiazid [Dyazide] 37.5-25 mg capsule 1 cap PO DAILY Qty: 90 RF: 3 multivitamin [Daily Multi-Vitamin] 1 EACH tablet 1 ea PO DAILY RF: 0 hair prosthesis Miscellaneous DAILY Qty: 1 RF: 1 bupropion HCl [Wellbutrin XL] 300 mg tablet extended release 24 hr 300 mg PO DAILY Qty: 90 RF: 3 omeprazole 40 mg capsule,delayed release(DR/EC) 40 mg PO DAILY Qty: 90 RF: 3 gabapentin 300 mg capsule 300 mg PO TID Qty: 270 RF: 3 venlafaxine 25 mg tablet 25 mg PO DAILY Qty: 30 RF: 1 carvedilol [Coreg] 12.5 mg tablet 25 mg PO BID RF: 0 potassium chloride [Klor-Con M20] 20 mEq Tablet,Er Particles/Crystals 40 meq PO TID Qty: 21 RF: 0 pramipexole [Mirapex] 0.25 mg tablet 0.25 mg PO HS RF: 0 melatonin 10 mg Capsule 10 mg PO HS PRNRF: 0 loperamide 2 mg Capsule 2 mg PO QLOOSE PRNQty: 0 RF: 0 magnesium chloride [Mag 64] 64 mg Tablet,Delayed Release (Dr/Ec) 64 mg PO TID Qty: 120 RF: 0 Changed amlodipine 10 mg tablet 5 mg PO DAILY Qty: 90 RF: 6 Discharge Instructions Instructions: Hypokalemia (DC), Diabetes Mellitus Type 2 in Adults (DC) Additional Instructions: Have blood work checked prior to your follow up appointment or as directed by pcp. Discuss diabetes management at your follow up appointment. Stand Alone Forms: Nursing Discharge Form Referrals: Huyen Ramon DO [Primary Care Provider] - 04/24/19 9:30 am Activity:: Activity as Tolerated Equipment/Supplies:: No Equipment Needed Diet:: Carb Counting Discharge Orders Discharge Orders: Discharge Order (Routine); Ordered 04/16/19 Ordered By: Misty Marmolejo Other Ambulatory Orders: Basic Metabolic Panel (Routine) Timeframe: 20190421 Facility: [facility] - Location: Laboratory Outpatient Ordered By: Misty Marmolejo Basic Metabolic Panel (Routine) Timeframe: 1 Day Facility: [facility] - Location: Laboratory Outpatient Ordered By: Misty Marmolejo Magnesium (Routine) Timeframe: 20190421 Facility: [facility] - Location: Laboratory Outpatient Ordered By: Misty Marmolejo Magnesium (Routine) Timeframe: 1 Day Facility: [facility] - Location: Laboratory Outpatient Ordered By: Misty Marmolejo DS: Summary Status at Discharge Functional status at discharge: independent ambulation Overall status at discharge: patient is back to baseline Mental Status: mental status grossly normal Speech and Movement: speech and movement normal Mood: congruent mood Affect: normal affect Exam Const General: cooperative, healthy appearing, comfortable and no acute distress Nutritional Appearance: obese Orientation: alert, awake and oriented x3 HENMT Head: normal to inspection, normocephalic and atraumatic Mouth: oral mucosae normal and moist mucous membranes Resp Effort & Inspection: normal respiratory effort and able to speak in complete sentences GI Inspection: normal to inspection Palpation: soft Auscultation: normal bowel sounds Skin General skin exam: no rashes or lesions noted Extrem General: edema (improved from yesterday) Laterality: bilateral Psych Appearance: grossly normal Mental Status: mental status grossly normal Speech and Movement: speech and movement normal Mood: congruent mood Affect: normal affect Attitude: cooperative Thought Process: normal Thought Content: normal DS: Data Vitals/I&O Vitals and I&O: Vital Signs Temperature 36.5 C 04/16/19 07:18 Temperature Source Tympanic 04/16/19 07:18 Pulse 69 04/16/19 07:18 Pulse Rhythm Regular 04/15/19 23:50 Respiratory Rate 17 04/16/19 07:18 Respiratory Effort 04/15/19 23:50 Respiratory Depth Normal 04/15/19 23:50 Respiratory Pattern Normal 04/15/19 23:50 Blood Pressure 144/81 H 04/16/19 07:18 Pulse Oximetry 97 04/16/19 07:18 Oxygen Delivery Method Room Air 04/16/19 07:18 Oxygen Flow Rate 0 04/16/19 07:18 Pain Level 0 04/16/19 07:18 Intake & Output 04/15/19 04/15/19 04/16/19 11:59 23:59 11:59 Intake Total 240 / 240 Output Total 400 / 2500 2100 / 2500 Balance -400 / -2260 -1860 / -2260 Weight 120 kg 120.1 kg Intake: Oral 240 / 240 Output: Urine 400 / 2500 2100 / 2500 Other: Urine Color Yellow Urine Appearance Clear Clear Urine Odor Normal Comment PT DOCUMENTED TINY FILAMENT BLOOD. PT JUST FINISHING HER MENSES AND SAYS THAT HAPPENS AT THE END SOMETIMES. Voiding Methods Toilet Data Completed and Pending Labs on day of discharge: Labs from last 24 hours 04/16/19 06:25 Sodium 142 Potassium 4.3 D Chloride 108 H Carbon Dioxide 25.4 Anion Gap 8.6 BUN 12 Creatinine 0.80 Estimated GFR/1.73 m2 >= 60.00 Glucose 94 Calcium 8.7 [facility] Medical History (Updated 04/15/19 @ 15:32 by Misty Marmolejo NP) Abnormal serum creatinine level (Acute 07/2018) Serious Creatinine elevation, with resolution between episodes of dehydration .. Alopecia Anemia Dehydration (Inactive ~08/21/18) Several episodes now .. She can almost gauge her K levels based on mm weakness. [ ] BMP [ ] IVF-KCl Bolus-K have helped with hypokalemia in between bouts of diarrhea/dehydration when IVF not needed. 09/2018, mian Depression Discharge planning issues (Acute) Encounter for insertion of venous access port (Acute) GERD (gastroesophageal reflux disease) Marylou's thyroiditis Hx of adenomatous colonic polyps Hypertension (Chronic) Hypokalemia (Acute 11/07/16) Chronic, possible 2' IBS/Diarrhea. Continued despite GI improvements, albeit improved. Trial Eplerenone, to be followed by HCTZ decrease. 10/09/18 Intermittent improvement, but unsteady and unpredictable .. Monisha seems unable to maintain her own K levels WNL w/o bolus/infusions at this time. Unable to tolerate K-sparing diuretics. Cont to research, evaluate, consult .. 09/2018, mian Irritable bowel syndrome diarrhea predominant Migraine headache with aura (Chronic) DR. VALDEZ 08/29/11 [employer] Vertigo and/or pain Poor venous access on examination (Acute) Preeclampsia (Acute) Rectal hemorrhage (Inactive 03/02/15) Reflux esophagitis Sustained VT (ventricular tachycardia) (Acute) during hypokalemia episode Surgical History section x3 Colonoscopy - MAC (03/16/14) w/ bx 2016-serrated adenomatous polyp EGD - MAC 2016 Endometrial Ablation 2007 2012 H/O colonoscopy (Chronic 12/05/17) History of esophagogastroduodenoscopy (EGD) (Chronic 12/05/17) Tonsillectomy Family History Mother Pulmonary hypertension Heart disease valve replacement Father Prostate cancer Essential hypertension Parkinsons Sister Uterine cancer Brother No problems noted. 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 Pets and animals: Yes Pets and animals: cat(s) and dog(s) What is your relationship status?: living with partner Panel score (0-1 are the most socially isolated patients): 1 What type of physical activity do you participate in: walking Duration: 15-30 minutes/day Frequency: 3-4 times per week Seatbelt use: always Working smoke detector in home: Yes Fire extinguisher in home: Yes Carbon monox detector in home: Yes Firearms in home: No Do you feel safe at home: Yes Do you feel safe in your relationship?: Yes Female Reproductive History Menstrual control method: permanent sterilization History History 3 Para 4 Hx # Term Pregnancies Multiple births 1 Hx # Pregnancies Ectopic pregnancies AB induced Hx Number of Living Children AB spontaneous
[2019-04-16 09:54] VITALS: O2SAT 97
[2019-04-16 11:15] VITALS: BP 125/84; PULSE 69; RESP 17; TEMP 36.7; O2SAT 96
--- NOTE | 2019-04-16 15:06 | PDOC.CMDIS ---
- If Service Date Differs Date of service: 04/16/19 Time of Service: 15:06 LACE Index Scoring Tool - Questions: Length of Stay (in days): 2 Acuity (Admit via E.D.?): No E.D. Visits: 0 - Answers: Total Score: 2 Risk of Readmission: Low Risk Care Management Discharge Reason for Hospitalization: Hypokalemia Discharge Plan: Monisha will be discharged home with no new services. She will likely follow up with outpatient infusions as needed. Monisha will transport via private vehicle and follow up with her PCP. Patient/Family Education Needs: Discharge plan, limitations, Ask Me Three.
== END 2019-04-16 12:25 | disposition home or self-care (01) ==
PROVIDERS: Internal Medicine; Nurse Practitioner Acute Care; Admitting Provider Family Medicine; PCP Student in an Organized Health Care Education/Training Program; Visit Provider Family Medicine
DX: E87.6 Hypokalemia (principal); I10 Essential (primary) hypertension; E83.42 Hypomagnesemia; R73.01 Impaired fasting glucose; F32.9 Major depressive disorder, single episode, unspecified; K21.9 Gastro-esophageal reflux disease without esophagitis
CPT/HCPCS: 36415; 80048; 99219; 99226; 99239; 83036; 83735; 93005; 93010; 99217; G0378; J3480

== ENCOUNTER 2019-04-17 07:50 | Outpatient (CLI) | payer BC, SELFPAY ==
[2019-04-17 09:59] LABS: Anion Gap 8.7 mmol/L (3-11); BUN 19 mg/dL (7-18); CO2 27.3 mmol/L (21.0-32.0); CREATININE 0.82 mg/dL (0.55-1.02); Calcium 9.1 mg/dL (8.5-10.1); Chloride 106 mmol/L (98-107); Glucose 124 mg/dL (74-106); Magnesium 1.8 mg/dL (1.8-2.4); Potassium 4.8 mmol/L (3.5-5.1); Sodium 142 mmol/L (136-145)
== END 2019-04-17 08:10 ==
PROVIDERS: Nurse Practitioner Acute Care; PCP Student in an Organized Health Care Education/Training Program; Visit Provider Student in an Organized Health Care Education/Training Program
DX: E87.6 Hypokalemia (principal); E83.42 Hypomagnesemia
CPT/HCPCS: 36415; 80048; 83735

== ENCOUNTER 2019-04-21 08:05 | Outpatient (CLI) | payer BC, SELFPAY ==
[2019-04-21 08:50] LABS: Anion Gap 11.5 mmol/L (3-11); BUN 20 mg/dL (7-18); CO2 28.5 mmol/L (21.0-32.0); CREATININE 1.06 mg/dL (0.55-1.02); Calcium 9.6 mg/dL (8.5-10.1); Chloride 100 mmol/L (98-107); Glucose 148 mg/dL (74-106); Magnesium 1.9 mg/dL (1.8-2.4); Potassium 3.4 mmol/L (3.5-5.1); Sodium 140 mmol/L (136-145)
== END 2019-04-21 08:25 ==
PROVIDERS: Nurse Practitioner Acute Care; PCP Student in an Organized Health Care Education/Training Program; Visit Provider Student in an Organized Health Care Education/Training Program
DX: E87.6 Hypokalemia (principal); E83.42 Hypomagnesemia
CPT/HCPCS: 36415; 80048; 83735

== ENCOUNTER 2019-04-22 08:12 | Outpatient (CLI) | payer BC, SELFPAY ==
[2019-04-22 09:37] LABS: Anion Gap 9.1 mmol/L (3-11); BUN 18 mg/dL (7-18); CO2 29.9 mmol/L (21.0-32.0); CREATININE 1.11 mg/dL (0.55-1.02); Calcium 9.2 mg/dL (8.5-10.1); Chloride 100 mmol/L (98-107); Estimated GFR 52.24 (mL/min/1.73m2); Glucose 124 mg/dL (74-106); Magnesium 1.8 mg/dL (1.8-2.4); Potassium 3.3 mmol/L (3.5-5.1); Sodium 139 mmol/L (136-145)
== END 2019-04-22 08:32 ==
PROVIDERS: PCP Student in an Organized Health Care Education/Training Program; Visit Provider Student in an Organized Health Care Education/Training Program
DX: E87.6 Hypokalemia (principal); E83.42 Hypomagnesemia
CPT/HCPCS: 36415; 80048; 83735

== ENCOUNTER 2019-05-02 03:55 | Outpatient (RCR) | payer BC, SELFPAY ==
[2019-04-07] MEDS: POTASSIUM CHLORIDE 20 MEQ/100 ML BAG 50 MEQ IVPB ×2 (10:02→12:06)
[2019-04-07] MEDS: Normal Saline Flush 10 ML SYR IVP (10:03)
[2019-04-08] MEDS: MAGNESIUM SULFATE 4 GM/100 ML BAG IVPB (10:39)
[2019-04-08] MEDS: Normal Saline Flush 10 ML SYR IVP (10:39)
[2019-04-08] MEDS: POTASSIUM CHLORIDE 20 MEQ/100 ML BAG 50 MEQ IVPB ×2 (10:42→12:46)
[2019-04-09 09:16] LABS: Magnesium 1.9 mg/dL (1.8-2.4); Potassium 3.6 mmol/L (3.5-5.1)
[2019-04-10 09:39] LABS: Anion Gap 11.7 mmol/L (3-11); BUN 14 mg/dL (7-18); CO2 26.3 mmol/L (21.0-32.0); CREATININE 0.89 mg/dL (0.55-1.02); Calcium 8.9 mg/dL (8.5-10.1); Chloride 101 mmol/L (98-107); Glucose 140 mg/dL (74-106); Magnesium 1.8 mg/dL (1.8-2.4); Potassium 3.2 mmol/L (3.5-5.1); Sodium 139 mmol/L (136-145)
[2019-04-10 09:45] LABS: Bilirubin Negative (Negative); Blood Trace-intact (Negative); Clarity Sl Cloudy (Clear); Glucose Negative (Negative); Ketones Negative (Negative); Leukocyte Esterase Negative (Negative); Nitrite Negative (Negative); Specific Gravity 1.015 (1.005-1.025); Urobilinogen 0.2 EU/dL (Up TO 0.2)
[2019-04-10 09:56] LABS: Bacteria Negative HPF (Negative); C & S Indicated? No; Casts Negative LPF (Negative); Crystals Negative HPF (Negative); Epithelial Cells Moderate HPF (Negative); Mucus Negative (Negative); RBC 0-2 HPF (0-2); WBC 0-2 HPF (0-5)
[2019-04-10] MEDS: MAGNESIUM SULFATE 4 GM/100 ML BAG IVPB (10:15)
[2019-04-10] MEDS: POTASSIUM CHLORIDE 20 MEQ/100 ML BAG 50 MEQ IVPB ×2 (10:15→12:05)
[2019-04-10 22:16] LABS: Osmolality, Urine 515 mOsm/kg (150-1,150)
[2019-04-11] MEDS: POTASSIUM CHLORIDE 20 MEQ/100 ML BAG 50 MEQ IVPB ×2 (10:27→12:30)
[2019-04-11] MEDS: Normal Saline Flush 10 ML SYR IVP (10:27)
[2019-04-11] MEDS: MAGNESIUM SULFATE 4 GM/100 ML BAG IVPB (10:27)
[2019-04-14] MEDS: POTASSIUM CHLORIDE 20 MEQ/100 ML BAG 50 MEQ IVPB ×2 (10:17→12:04)
[2019-04-14] MEDS: MAGNESIUM SULFATE 4 GM/100 ML BAG IVPB (10:18)
[2019-04-14] MEDS: Normal Saline Flush 10 ML SYR IVP (10:18)
[2019-04-22] MEDS: POTASSIUM CHLORIDE 20 MEQ/100 ML BAG 50 MEQ IVPB ×2 (10:24→12:15)
[2019-04-22] MEDS: MAGNESIUM SULFATE 4 GM/100 ML BAG IVPB (10:25)
[2019-04-22] MEDS: Normal Saline Flush 10 ML SYR IVP (10:25)
[2019-04-23 09:09] LABS: Anion Gap 8.8 mmol/L (3-11); BUN 22 mg/dL (7-18); CO2 30.2 mmol/L (21.0-32.0); CREATININE 0.97 mg/dL (0.55-1.02); Calcium 9.3 mg/dL (8.5-10.1); Chloride 101 mmol/L (98-107); Glucose 123 mg/dL (74-106); Magnesium 2.3 mg/dL (1.8-2.4); Potassium 3.9 mmol/L (3.5-5.1); Sodium 140 mmol/L (136-145)
[2019-04-25 09:26] LABS: Anion Gap 9.3 mmol/L (3-11); BUN 16 mg/dL (7-18); CO2 30.7 mmol/L (21.0-32.0); CREATININE 0.97 mg/dL (0.55-1.02); Calcium 9.5 mg/dL (8.5-10.1); Chloride 101 mmol/L (98-107); Glucose 131 mg/dL (74-106); Magnesium 1.8 mg/dL (1.8-2.4); Potassium 3.4 mmol/L (3.5-5.1); Sodium 141 mmol/L (136-145)
[2019-04-25] MEDS: MAGNESIUM SULFATE 4 GM/100 ML BAG IVPB (09:42)
[2019-04-25] MEDS: POTASSIUM CHLORIDE 20 MEQ/100 ML BAG 50 MEQ IVPB ×2 (09:42→11:51)
[2019-04-25] MEDS: Normal Saline Flush 10 ML SYR IVP (11:52)
[2019-04-28 09:15] LABS: Anion Gap 8.2 mmol/L (3-11); BUN 18 mg/dL (7-18); CO2 27.8 mmol/L (21.0-32.0); CREATININE 1.04 mg/dL (0.55-1.02); Calcium 8.8 mg/dL (8.5-10.1); Chloride 104 mmol/L (98-107); Estimated GFR 56.32 (mL/min/1.73m2); Glucose 133 mg/dL (74-106); Magnesium 1.6 mg/dL (1.8-2.4); Potassium 4.3 mmol/L (3.5-5.1); Sodium 140 mmol/L (136-145)
[2019-04-30 09:45] LABS: Anion Gap 9.7 mmol/L (3-11); BUN 23 mg/dL (7-18); CO2 25.3 mmol/L (21.0-32.0); CREATININE 1.05 mg/dL (0.55-1.02); Calcium 8.7 mg/dL (8.5-10.1); Chloride 105 mmol/L (98-107); Glucose 160 mg/dL (74-106); Magnesium 1.8 mg/dL (1.8-2.4); Potassium 4.3 mmol/L (3.5-5.1); Sodium 140 mmol/L (136-145)
--- NOTE | 2019-05-01 08:48 | NUR.NOTE ---
03/31/2019 Labs drawn in outpt lab at 1235. pt calls in at 1330 for results. K+ 3.7, Mg+ 1.6. Instr pt that per MD orders, she meets parameters today for replacement therapy. Pt given the option of coming in now or tomorrow for infusion. Pt declines offer, states, I think I'll wait until the end of the week and see what happens. Advised pt to contact MD office. This RN spoke to Mary Campbell at [facility] and notified of lab results, parameters for KCL and Mag sulfate infusions and that pt refused treatment today and will recheck labs at the end of the week. No further orders at this time. Ese Gaytan RN 04/01/2019 K+ 3.8 and Mg+ 1.6. Pt declines KCL and magnesium sulfate infusions today, despite parameters from . Pt states she will have labs drawn on 04/03/2019. Instr pt to go to ER if needed for s/s. Pt states she is aware of s/s and when to seek treatment. MD office notified. Ese Gaytan RN 04/03/2019 K 3.5 and Mg+ 1.9. Pt had labs drawn at outpt lab, calls in for lab results. Pt declines KCL infusion. States she will have labs rechecked on 04/07 or 04/08/2019. Pt will go o the ER if needed. MD office notified. Ese Gaytan RN Nursing Note:
[2019-05-02 07:46] LABS: BUN 18 mg/dL (7-18); CREATININE 0.95 mg/dL (0.55-1.02); Calcium 8.5 mg/dL (8.5-10.1); Chloride 105 mmol/L (98-107); Glucose 125 mg/dL (74-106); Magnesium 1.9 mg/dL (1.8-2.4); Potassium 4.3 mmol/L (3.5-5.1); Sodium 140 mmol/L (136-145)
== END 2019-05-02 23:59 | disposition home or self-care (01) ==
LOC: INF 03:55
PROVIDERS: Family Medicine; PCP Student in an Organized Health Care Education/Training Program; Visit Provider Nurse Practitioner
DX: E87.6 Hypokalemia (principal); E83.42 Hypomagnesemia
CPT/HCPCS: 36415; 80048; 83935; 96365; 96366; 81003; 81015; 82436; 82565; 82570; 83735; 84132; 84133; 84300; J3475; J3480

== ENCOUNTER 2019-05-05 08:30 | Outpatient (CLI) | payer BC, SELFPAY ==
[2019-05-05 09:06] LABS: Anion Gap 11.1 mmol/L (3-11); BUN 16 mg/dL (7-18); CO2 23.9 mmol/L (21.0-32.0); CREATININE 1.01 mg/dL (0.55-1.02); Calcium 8.9 mg/dL (8.5-10.1); Chloride 104 mmol/L (98-107); Estimated GFR 58.26 (mL/min/1.73m2); Glucose 149 mg/dL (74-106); HCT 39.8 % (36.0-46.0); HGB 13.2 g/dL (12.0-15.5); Magnesium 1.7 mg/dL (1.8-2.4); Mean Corp. HGB Concentration 33.2 g/dL (32.0-36.0); Mean Corpuscular Hemoglobin 28.4 pg (27.0-33.0); Mean Corpuscular Volume 85.8 fL (80-95); Mean Platelet Volume 9.5 fL (8.0-11.0); Platelet Count 409 x1000/uL (130-400); Potassium 4.5 mmol/L (3.5-5.1); RBC 4.64 m/cumm (4.00-5.20); Sodium 139 mmol/L (136-145); White Blood Cell Count 9.78 k/cumm (4.4-10.8)
== END 2019-05-05 08:50 ==
PROVIDERS: PCP Student in an Organized Health Care Education/Training Program; Visit Provider Student in an Organized Health Care Education/Training Program
DX: E87.6 Hypokalemia (principal); E83.42 Hypomagnesemia; I10 Essential (primary) hypertension
CPT/HCPCS: 36415; 80048; 85027; 83735

== ENCOUNTER 2019-05-19 06:51 | Outpatient (CLI) | payer BC, SELFPAY ==
[2019-05-19 09:11] LABS: Anion Gap 8.3 mmol/L (3-11); BUN 18 mg/dL (7-18); CO2 29.7 mmol/L (21.0-32.0); CREATININE 0.92 mg/dL (0.55-1.02); Calcium 9.1 mg/dL (8.5-10.1); Chloride 103 mmol/L (98-107); Glucose 143 mg/dL (74-106); Magnesium 1.6 mg/dL (1.8-2.4); Potassium 4.5 mmol/L (3.5-5.1); Sodium 141 mmol/L (136-145)
[2019-05-19 09:35] LABS: TSH (W/Ref FT4) 3.69 uIU/mL (0.36-3.74)
[2019-05-20 10:33] LABS: Thyroglobulin Antibody 117 U/mL (<=60); Thyroperoxidase Antibody >1300 U/mL (<=60)
== END 2019-05-19 07:11 ==
PROVIDERS: PCP Student in an Organized Health Care Education/Training Program; Visit Provider Student in an Organized Health Care Education/Training Program
DX: E87.6 Hypokalemia (principal); E83.42 Hypomagnesemia; F43.23 Adjustment disorder with mixed anxiety and depressed mood; R60.9 Edema, unspecified; F32.9 Major depressive disorder, single episode, unspecified; R23.2 Flushing; Z86.39 Personal history of other endocrine, nutritional and metabolic disease
CPT/HCPCS: 36415; 80048; 86376; 83735; 84443

== ENCOUNTER 2019-05-30 04:30 | Outpatient (RCR) | payer BC, SELFPAY ==
[2019-05-06 09:45] LABS: Anion Gap 12.6 mmol/L (3-11); BUN 18 mg/dL (7-18); CO2 23.4 mmol/L (21.0-32.0); CREATININE 0.92 mg/dL (0.55-1.02); Calcium 8.9 mg/dL (8.5-10.1); Chloride 102 mmol/L (98-107); Glucose 187 mg/dL (74-106); Magnesium 1.6 mg/dL (1.8-2.4); Potassium 3.7 mmol/L (3.5-5.1); Sodium 138 mmol/L (136-145)
[2019-05-09 09:49] LABS: BUN 18 mg/dL (7-18); CREATININE 1.06 mg/dL (0.55-1.02); Calcium 9.1 mg/dL (8.5-10.1); Chloride 104 mmol/L (98-107); Glucose 119 mg/dL (74-106); Magnesium 1.8 mg/dL (1.8-2.4); Potassium 4.5 mmol/L (3.5-5.1); Sodium 141 mmol/L (136-145)
[2019-05-16 10:07] LABS: Anion Gap 9.2 mmol/L (3-11); BUN 14 mg/dL (7-18); CO2 28.8 mmol/L (21.0-32.0); CREATININE 0.93 mg/dL (0.55-1.02); Calcium 9.2 mg/dL (8.5-10.1); Chloride 102 mmol/L (98-107); Glucose 139 mg/dL (74-106); Magnesium 1.7 mg/dL (1.8-2.4); Potassium 3.2 mmol/L (3.5-5.1); Sodium 140 mmol/L (136-145)
[2019-05-16] MEDS: MAGNESIUM SULFATE 4 GM/100 ML BAG IVPB (10:26)
[2019-05-16] MEDS: POTASSIUM CHLORIDE 20 MEQ/100 ML BAG 50 MEQ IVPB ×2 (10:26→12:28)
[2019-05-16] MEDS: Normal Saline Flush 10 ML SYR IVP (10:38)
[2019-05-23 09:14] LABS: Anion Gap 9.4 mmol/L (3-11); BUN 22 mg/dL (7-18); CO2 27.6 mmol/L (21.0-32.0); CREATININE 0.97 mg/dL (0.55-1.02); Chloride 103 mmol/L (98-107); Glucose 135 mg/dL (74-106); Magnesium 1.7 mg/dL (1.8-2.4); Potassium 3.8 mmol/L (3.5-5.1); Sodium 140 mmol/L (136-145)
[2019-05-27 09:26] LABS: Anion Gap 10.3 mmol/L (3-11); BUN 20 mg/dL (7-18); CO2 26.7 mmol/L (21.0-32.0); CREATININE 0.92 mg/dL (0.55-1.02); Calcium 8.9 mg/dL (8.5-10.1); Chloride 103 mmol/L (98-107); Glucose 123 mg/dL (74-106); Magnesium 1.6 mg/dL (1.8-2.4); Potassium 3.6 mmol/L (3.5-5.1); Sodium 140 mmol/L (136-145)
[2019-05-30 07:51] LABS: Anion Gap 9.8 mmol/L (3-11); BUN 24 mg/dL (7-18); CO2 28.2 mmol/L (21.0-32.0); Calcium 9.1 mg/dL (8.5-10.1); Chloride 102 mmol/L (98-107); Estimated GFR 58.93 (mL/min/1.73m2); Glucose 146 mg/dL (74-106); Magnesium 1.7 mg/dL (1.8-2.4); Potassium 3.9 mmol/L (3.5-5.1); Sodium 140 mmol/L (136-145)
== END 2019-05-31 23:59 | disposition home or self-care (01) ==
LOC: INF 04:30
PROVIDERS: PCP Student in an Organized Health Care Education/Training Program; Visit Provider Nurse Practitioner
DX: E87.6 Hypokalemia (principal); E83.42 Hypomagnesemia
CPT/HCPCS: 36415; 80048; 96365; 96366; 83735; J3475; J3480

== ENCOUNTER 2019-05-30 09:33 | Outpatient (CLI) | payer BC, SELFPAY ==
--- NOTE | 2019-05-30 10:00 | DI.RAD_ITS ---
EXAM: XR CERVICAL SPINE COMP 4-5V INDICATION: eval cervical radiculopathy, shoulder pain. COMPARISON: No exams were available for comparison TECHNIQUE: 2D digital imaging was performed. FINDINGS: There are prominent facet degenerative changes throughout. There is some reversal of the normal cerv ical lordosis centered at C4-5 attributable to the facet degenerative changes. There are endplate os teophytes from C3-4 through C6-7. There is disc space narrowing at C5-6 and C6-7. There are promine nt endplate osteophytes at C5-6. There is neural foraminal narrowing throughout. The neural foramin al narrowing on the right is most severe at C 3-4 and C6-7. On the left, the neural foraminal narrow ing is most severe at C5-6 and C6-7. Airway is unremarkable. IMPRESSION: Severe facet degenerative changes throughout. Severe degenerative disc changes at C5-6 and C6-7. Bi lateral neural foraminal narrowing at multiple levels. DATA REPOSITORY: RADIATION DOSE DELIVERED:
== END 2019-05-30 09:53 ==
PROVIDERS: PCP Student in an Organized Health Care Education/Training Program; Visit Provider Student in an Organized Health Care Education/Training Program
DX: M54.12 Radiculopathy, cervical region (principal); M25.519 Pain in unspecified shoulder; M50.322 Other cervical disc degeneration at C5-C6 level; M50.323 Other cervical disc degeneration at C6-C7 level
CPT/HCPCS: 72050

== ENCOUNTER 2019-06-05 16:55 | Outpatient (CLI) | payer BC, SELFPAY ==
--- NOTE | 2019-06-05 16:00 | DI.RAD_ITS ---
EXAM: XR LUMBAR SPINE COMPLETE INDICATION: r/o lumbar stenosis, r/o bony pathology R29.6 REPEATED FALLS, R29.898. COMPARISON: No exams were available for comparison TECHNIQUE: 2D digital imaging was performed. FINDINGS: There is no evidence of fracture. The vertebral bodies are well maintained in height. There are sma ll endplate osteophytes throughout. There is moderate narrowing of the L4-5 disc space. No spondylo lysis, spondylolisthesis or scoliosis is seen. There are mild degenerative changes at the inferior S I joints. IMPRESSION: Degenerative changes, greatest at L4-5. No acute abnormality is seen. DATA REPOSITORY: RADIATION DOSE DELIVERED:
[2019-06-05 16:40] LABS: Anion Gap 11.8 mmol/L (3-11); BUN 19 mg/dL (7-18); CO2 26.2 mmol/L (21.0-32.0); CREATININE 0.97 mg/dL (0.55-1.02); Calcium 8.9 mg/dL (8.5-10.1); Chloride 101 mmol/L (98-107); Glucose 132 mg/dL (74-106); Magnesium 1.8 mg/dL (1.8-2.4); Potassium 3.4 mmol/L (3.5-5.1); Sodium 139 mmol/L (136-145)
== END 2019-06-05 17:15 ==
PROVIDERS: PCP Student in an Organized Health Care Education/Training Program; Visit Provider Student in an Organized Health Care Education/Training Program
DX: M25.78 Osteophyte, vertebrae (principal); M51.36 Other intervertebral disc degeneration, lumbar region; M53.3 Sacrococcygeal disorders, not elsewhere classified; R29.898 Other symptoms and signs involving the musculoskeletal system; R29.6 Repeated falls
CPT/HCPCS: 36415; 80048; 72110; 83735

== ENCOUNTER 2019-06-12 13:31 | Outpatient (CLI) | payer BC, SELFPAY ==
[2019-06-12 13:59] LABS: Anion Gap 8.7 mmol/L (3-11); BUN 25 mg/dL (7-18); CO2 28.3 mmol/L (21.0-32.0); CREATININE 0.92 mg/dL (0.55-1.02); Chloride 101 mmol/L (98-107); Glucose 122 mg/dL (74-106); Magnesium 1.6 mg/dL (1.8-2.4); Potassium 3.4 mmol/L (3.5-5.1); Sodium 138 mmol/L (136-145)
[2019-06-12 14:01] LABS: Hemoglobin A1C 6.8 % (3.8-5.6)
== END 2019-06-12 13:51 ==
PROVIDERS: PCP Student in an Organized Health Care Education/Training Program; Visit Provider Student in an Organized Health Care Education/Training Program
DX: I10 Essential (primary) hypertension (principal); E11.69 Type 2 diabetes mellitus with other specified complication; E87.6 Hypokalemia; E83.42 Hypomagnesemia; E66.9 Obesity, unspecified
CPT/HCPCS: 36415; 80048; 83036; 83735

== ENCOUNTER 2019-06-23 09:11 | Outpatient (CLI) | payer BC, SELFPAY ==
[2019-06-23 09:53] LABS: Anion Gap 10.6 mmol/L (3-11); BUN 18 mg/dL (7-18); CO2 25.4 mmol/L (21.0-32.0); Calcium 8.8 mg/dL (8.5-10.1); Chloride 102 mmol/L (98-107); Glucose 171 mg/dL (74-106); Magnesium 1.5 mg/dL (1.8-2.4); Potassium 3.6 mmol/L (3.5-5.1); Sodium 138 mmol/L (136-145)
[2019-06-23 11:48] LABS: Ferritin 31 ng/mL (8-252)
== END 2019-06-23 09:31 ==
PROVIDERS: PCP Student in an Organized Health Care Education/Training Program; Visit Provider Psychiatry & Neurology Neurology
DX: E87.6 Hypokalemia (principal); E83.42 Hypomagnesemia; G25.81 Restless legs syndrome
CPT/HCPCS: 36415; 80048; 82728; 83735

== ENCOUNTER 2019-06-24 02:27 | Outpatient (RCR) | payer BC, SELFPAY ==
[2019-06-10 09:52] LABS: BUN 18 mg/dL (7-18); Chloride 100 mmol/L (98-107); Estimated GFR 58.93 (mL/min/1.73m2); Glucose 133 mg/dL (74-106); Magnesium 1.7 mg/dL (1.8-2.4); Potassium 3.2 mmol/L (3.5-5.1); Sodium 140 mmol/L (136-145)
[2019-06-16 09:23] LABS: Anion Gap 9.4 mmol/L (3-11); BUN 19 mg/dL (7-18); CO2 28.6 mmol/L (21.0-32.0); CREATININE 0.96 mg/dL (0.55-1.02); Chloride 102 mmol/L (98-107); Glucose 115 mg/dL (74-106); Magnesium 1.7 mg/dL (1.8-2.4); Potassium 3.8 mmol/L (3.5-5.1); Sodium 140 mmol/L (136-145)
[2019-06-24] MEDS: MAGNESIUM SULFATE 4 GM/100 ML BAG IVPB (09:36)
[2019-06-24] MEDS: Normal Saline Flush 10 ML SYR IVP (09:36)
[2019-06-24] MEDS: IRON SUCROSE COMPLEX 200 MG in Normal Saline 100 ML 440 MG IVPB (11:34)
[2019-06-24 12:37] LABS: BUN 21 mg/dL (7-18); CREATININE 0.86 mg/dL (0.55-1.02); Calcium 8.9 mg/dL (8.5-10.1); Chloride 101 mmol/L (98-107); Glucose 140 mg/dL (74-106); Magnesium 2.8 mg/dL (1.8-2.4); Sodium 136 mmol/L (136-145)
== END 2019-07-01 23:59 | disposition home or self-care (01) ==
LOC: INF 02:27
PROVIDERS: PCP Student in an Organized Health Care Education/Training Program; Visit Provider Nurse Practitioner
DX: E87.6 Hypokalemia (principal); E83.42 Hypomagnesemia; D50.9 Iron deficiency anemia, unspecified
CPT/HCPCS: 36415; 80048; 96365; 96366; 83735; J1756; J3475

== ENCOUNTER → 2019-06-27 03:14 | Outpatient (CLI) | payer BC, SELFPAY ==
--- NOTE | 2019-06-27 07:45 | DI.MRI_ITS ---
EXAM: MR CERVICAL SPINE WO CLINICAL HISTORY: LUE pain and numbness into thumb,CERVICAL RADICULOPATHY,M54.12. TECHNIQUE: Multiplanar multisequence MRI was performed. COMPARISON: No exams were available for comparison FINDINGS: MR examination of the cervical spine was performed according to the usual protocol. There is some li mitation of this study due to patient motion. Images obtained through the posterior fossa show unremarkable appearance of visualized portions of ce rebellum, radha, and medulla. There are mild aidee-discal vertebral signal changes throughout the cervical region consistent with de generative change. There are prominent hypertrophic endplate changes and facet changes throughout th e cervical region. At C2-3, there is left-sided neural foraminal narrowing. No other significant findings. At C3-4, there is marked prominence of the disc osteophyte complex. There is superimposed right para central and right lateral prominence with marked osteophyte formation and possible mild superimposed disc herniation. There is mild anterior deformity of the cord at this level without significant cord signal abnormality. There is borderline central canal spinal stenosis at this level. At C4-5, there is prominence of the disc osteophyte complex without focal disc herniation. There is mild bilateral neural foraminal stenosis. No central canal spinal stenosis. At C5-6, there is prominence of the disc osteophyte complex, left greater than right. There is borde rline central canal spinal stenosis. There is bilateral neural foraminal narrowing. No gross cord a bnormality. At C6 7, there is prominence of the disc osteophyte complex with slight bilateral neural foraminal na rrowing. No significant findings in the visualized upper thoracic spine to approximately the T4 level. Spinal cord shows normal diameter throughout, with the aforementioned slight anterior deformity at C3 -4 on the right and perhaps minimal anterior deformity centrally at C4-5 and C5-6. No intra cord sig nal abnormality seen on this noncontrast scan. IMPRESSION: Multilevel prominence of the disc osteophyte complex and facet hypertrophy with multilevel bilateral neural foraminal narrowing, most significant findings are at C3-4 where there is marked prominence of the disc osteophyte complex and possible mild superimposed disc herniation to the right with mild an terior deformity of cord surface at this level on the right. Please see above discussion for finding s at individual levels. DATA REPOSITORY:
== END ==
PROVIDERS: PCP Student in an Organized Health Care Education/Training Program; Visit Provider Student in an Organized Health Care Education/Training Program
DX: M79.602 Pain in left arm (principal); R20.0 Anesthesia of skin; M54.12 Radiculopathy, cervical region; M25.78 Osteophyte, vertebrae; M47.22 Other spondylosis with radiculopathy, cervical region; M50.31 Other cervical disc degeneration, high cervical region
CPT/HCPCS: 72141

== ENCOUNTER 2019-07-18 01:58 | Outpatient (RCR) | payer BC, SELFPAY ==
[2019-07-03 08:38] LABS: Anion Gap 7.4 mmol/L (3-11); BUN 18 mg/dL (7-18); CO2 30.6 mmol/L (21.0-32.0); CREATININE 0.97 mg/dL (0.55-1.02); Calcium 8.9 mg/dL (8.5-10.1); Chloride 100 mmol/L (98-107); Glucose 141 mg/dL (74-106); Magnesium 1.8 mg/dL (1.8-2.4); Potassium 3.4 mmol/L (3.5-5.1); Sodium 138 mmol/L (136-145)
[2019-07-09 09:14] LABS: Anion Gap 7.8 mmol/L (3-11); BUN 19 mg/dL (7-18); CO2 29.2 mmol/L (21.0-32.0); CREATININE 0.91 mg/dL (0.55-1.02); Calcium 9.3 mg/dL (8.5-10.1); Chloride 101 mmol/L (98-107); Glucose 144 mg/dL (74-106); Magnesium 1.8 mg/dL (1.8-2.4); Potassium 3.5 mmol/L (3.5-5.1); Sodium 138 mmol/L (136-145)
[2019-07-18 08:47] LABS: BUN 21 mg/dL (7-18); CO2 29.6 mmol/L (21.0-32.0); CREATININE 1.05 mg/dL (0.55-1.02); Calcium 9.2 mg/dL (8.5-10.1); Chloride 99 mmol/L (98-107); Glucose 157 mg/dL (74-106); Potassium 4.1 mmol/L (3.5-5.1); Sodium 135 mmol/L (136-145)
[2019-07-18 08:48] LABS: Anion Gap 6.4 mmol/L (3-11); Magnesium 1.7 mg/dL (1.8-2.4)
== END 2019-07-31 23:59 | disposition home or self-care (01) ==
LOC: INF 01:58
PROVIDERS: PCP Student in an Organized Health Care Education/Training Program; Visit Provider Student in an Organized Health Care Education/Training Program
DX: E87.6 Hypokalemia (principal); E83.42 Hypomagnesemia
CPT/HCPCS: 36415; 80048; 83735

== ENCOUNTER 2019-08-01 04:29 | Outpatient (RCR) | payer BC, SELFPAY ==
[2019-08-01 08:38] LABS: Anion Gap 7.8 mmol/L (3-11); BUN 19 mg/dL (7-18); CO2 29.2 mmol/L (21.0-32.0); CREATININE 1.01 mg/dL (0.55-1.02); Chloride 99 mmol/L (98-107); Estimated GFR 58.26 (mL/min/1.73m2); Glucose 136 mg/dL (74-106); Magnesium 1.8 mg/dL (1.8-2.4); Potassium 3.5 mmol/L (3.5-5.1); Sodium 136 mmol/L (136-145)
== END 2019-08-31 23:59 | disposition home or self-care (01) ==
LOC: INF 04:29
PROVIDERS: PCP Student in an Organized Health Care Education/Training Program; Visit Provider Student in an Organized Health Care Education/Training Program
DX: E87.6 Hypokalemia (principal); E83.42 Hypomagnesemia
CPT/HCPCS: 36415; 80048; 83735

== ENCOUNTER 2019-08-20 01:08 | Outpatient (CLI) | payer BC, SELFPAY ==
[2019-08-20 08:30] LABS: Anion Gap 9.4 mmol/L (3-11); BUN 20 mg/dL (7-18); CO2 26.6 mmol/L (21.0-32.0); CREATININE 1.06 mg/dL (0.55-1.02); Chloride 100 mmol/L (98-107); Glucose 139 mg/dL (74-106); Magnesium 1.8 mg/dL (1.8-2.4); Potassium 3.8 mmol/L (3.5-5.1); Sodium 136 mmol/L (136-145)
[2019-08-20 08:31] LABS: Hemoglobin A1C 6.6 % (3.8-5.6)
[2019-08-20 09:10] LABS: Ferritin 56 ng/mL (8-252)
== END 2019-08-20 01:28 ==
PROVIDERS: Psychiatry & Neurology Neurology; PCP Student in an Organized Health Care Education/Training Program; Visit Provider Student in an Organized Health Care Education/Training Program
DX: D50.9 Iron deficiency anemia, unspecified (principal); G25.81 Restless legs syndrome; E87.6 Hypokalemia; E83.42 Hypomagnesemia
CPT/HCPCS: 36415; 80048; 82728; 83036; 83735

== ENCOUNTER 2019-08-26 20:44 | Outpatient (REF) | payer BC, SELFPAY ==
[2019-08-26 16:16] LABS: Bilirubin Negative (Negative); Blood Moderate (Negative); Clarity Clear (Clear); Glucose Negative (Negative); Ketones Negative (Negative); Leukocyte Esterase Negative (Negative); Nitrite Negative (Negative); Specific Gravity 1.025 (1.005-1.025); Urobilinogen 0.2 EU/dL (Up TO 0.2)
[2019-08-26 16:34] LABS: Bacteria Moderate HPF (Negative); Crystals Negative HPF (Negative); Epithelial Cells Many HPF (Negative); Mucus Negative (Negative); RBC 0-2 HPF (0-2); WBC 0-2 HPF (0-5)
[2019-08-26 16:35] LABS: C & S Indicated? No/Sq. Contamination
== END 2019-08-26 21:04 ==
LOC: LBN 20:44
PROVIDERS: PCP Student in an Organized Health Care Education/Training Program; Visit Provider Nurse Practitioner Gerontology
DX: R31.9 Hematuria, unspecified (principal)
CPT/HCPCS: 81003; 81015

== ENCOUNTER 2019-09-09 02:58 | Outpatient (RCR) | payer BC, SELFPAY ==
[2019-09-09] MEDS: IRON SUCROSE COMPLEX 200 MG in Normal Saline 100 ML 440 MG IVPB (08:46)
[2019-09-09] MEDS: Normal Saline Flush 10 ML SYR IVP (08:46)
[2019-09-09 09:09] LABS: Anion Gap 8.7 mmol/L (3-11); BUN 26 mg/dL (7-18); CO2 27.3 mmol/L (21.0-32.0); CREATININE 1.15 mg/dL (0.55-1.02); Chloride 101 mmol/L (98-107); Estimated GFR 50.15 (mL/min/1.73m2); Glucose 136 mg/dL (74-106); Magnesium 1.8 mg/dL (1.8-2.4); Sodium 137 mmol/L (136-145)
== END 2019-09-30 23:59 | disposition home or self-care (01) ==
LOC: INF 02:58
PROVIDERS: PCP Student in an Organized Health Care Education/Training Program; Visit Provider Psychiatry & Neurology Neurology
DX: E87.6 Hypokalemia (principal); E83.42 Hypomagnesemia; G25.81 Restless legs syndrome; E61.1 Iron deficiency
CPT/HCPCS: 36415; 80048; 96365; 83735; J1756

== ENCOUNTER 2019-09-25 02:54 | Outpatient (CLI) | payer BC, SELFPAY ==
[2019-09-25 13:59] LABS: Anion Gap 8.8 mmol/L (3-11); BUN 20 mg/dL (7-18); CO2 28.2 mmol/L (21.0-32.0); CREATININE 0.99 mg/dL (0.55-1.02); Calcium 9.5 mg/dL (8.5-10.1); Chloride 100 mmol/L (98-107); Estimated GFR 59.62 (mL/min/1.73m2); Glucose 105 mg/dL (74-106); Magnesium 1.9 mg/dL (1.8-2.4); Sodium 137 mmol/L (136-145)
== END 2019-09-25 03:14 ==
PROVIDERS: PCP Student in an Organized Health Care Education/Training Program; Visit Provider Student in an Organized Health Care Education/Training Program
DX: E87.6 Hypokalemia (principal); E83.42 Hypomagnesemia
CPT/HCPCS: 36415; 80048; 83735

== ENCOUNTER 2019-12-26 02:14 | Outpatient (CLI) | payer BC, SELFPAY ==
[2019-12-26 09:19] LABS: Hemoglobin A1C 5.9 % (<5.7)
[2019-12-26 10:57] LABS: ALT 30 U/L (14-59); AST 24 U/L (15-37); Albumin 3.8 g/dL (3.4-5.0); Alkaline Phosphatase 57 U/L (46-116); Anion Gap 10.8 mmol/L (3-11); BUN 18 mg/dL (7-18); Bilirubin, Total 0.4 mg/dL (0.2-1.0); CO2 25.2 mmol/L (21.0-32.0); CREATININE 1.29 mg/dL (0.55-1.02); Calcium 9.6 mg/dL (8.5-10.1); Chloride 100 mmol/L (98-107); Estimated GFR 43.75 (mL/min/1.73m2); Glucose 126 mg/dL (74-106); Magnesium 2.1 mg/dL (1.8-2.4); Potassium 3.5 mmol/L (3.5-5.1); Sodium 136 mmol/L (136-145); TSH (W/Ref FT4) 2.92 uIU/mL (0.36-3.74); Total Protein 6.7 g/dL (6.4-8.2)
[2019-12-30 10:19] LABS: Ferritin 201 ng/mL (8-252)
== END 2019-12-26 02:34 ==
PROVIDERS: Psychiatry & Neurology Neurology; PCP Student in an Organized Health Care Education/Training Program; Visit Provider Student in an Organized Health Care Education/Training Program
DX: E11.69 Type 2 diabetes mellitus with other specified complication (principal); E87.6 Hypokalemia; E86.0 Dehydration; E83.42 Hypomagnesemia; E66.9 Obesity, unspecified; Z98.84 Bariatric surgery status; Z86.39 Personal history of other endocrine, nutritional and metabolic disease
CPT/HCPCS: 36415; 80053; 82728; 83036; 83735; 84443

== ENCOUNTER 2020-04-05 04:25 | Outpatient (CLI) | payer BC, SELFPAY ==
[2020-04-05 16:06] LABS: Anion Gap 5.6 mmol/L (3-11); BUN 20 mg/dL (7-18); CO2 29.4 mmol/L (21.0-32.0); CREATININE 0.91 mg/dL (0.55-1.02); Chloride 102 mmol/L (98-107); Glucose 97 mg/dL (74-106); Sodium 137 mmol/L (136-145)
== END 2020-04-05 04:45 ==
PROVIDERS: PCP Student in an Organized Health Care Education/Training Program; Visit Provider Student in an Organized Health Care Education/Training Program
DX: E11.69 Type 2 diabetes mellitus with other specified complication (principal); E34.2 Ectopic hormone secretion, not elsewhere classified; E86.0 Dehydration; E87.6 Hypokalemia; Z98.84 Bariatric surgery status; E66.9 Obesity, unspecified
CPT/HCPCS: 36415; 80048; 83036; 83735

== ENCOUNTER 2020-04-09 02:57 | Outpatient (CLI) | payer BC, SELFPAY ==
[2020-04-09 11:57] LABS: BUN 18 mg/dL (7-18); Calcium 8.9 mg/dL (8.5-10.1); Chloride 102 mmol/L (98-107); Estimated GFR 58.69 (mL/min/1.73m2); Glucose 93 mg/dL (74-106); Magnesium 1.8 mg/dL (1.8-2.4); Sodium 139 mmol/L (136-145)
== END 2020-04-09 03:17 ==
PROVIDERS: PCP Student in an Organized Health Care Education/Training Program; Visit Provider Student in an Organized Health Care Education/Training Program
DX: E87.6 Hypokalemia (principal)
CPT/HCPCS: 36415; 80048; 83735

== ENCOUNTER 2020-04-30 04:36 | Outpatient (RCR) | payer BC, SELFPAY ==
[2020-04-13 08:28] LABS: Magnesium 1.8 mg/dL (1.8-2.4)
[2020-04-13 08:36] LABS: Potassium 2.9 mmol/L (3.5-5.1)
[2020-04-13] MEDS: Normal Saline Flush 10 ML SYR IVP ×2 (08:49→08:58)
[2020-04-13] MEDS: MAGNESIUM SULFATE 4 GM/100 ML BAG IVPB (08:58)
[2020-04-13] MEDS: POTASSIUM CHLORIDE 20 MEQ/100 ML BAG 50 MEQ IVPB ×2 (08:58→11:08)
[2020-04-14 08:36] LABS: Anion Gap 9.7 mmol/L (3-11); BUN 18 mg/dL (7-18); CO2 28.3 mmol/L (21.0-32.0); CREATININE 0.96 mg/dL (0.55-1.02); Calcium 9.2 mg/dL (8.5-10.1); Chloride 102 mmol/L (98-107); Glucose 93 mg/dL (74-106); Magnesium 2.3 mg/dL (1.8-2.4); Potassium 3.1 mmol/L (3.5-5.1); Sodium 140 mmol/L (136-145)
[2020-04-19 08:33] LABS: Potassium 3.2 mmol/L (3.5-5.1)
[2020-04-22 08:35] LABS: Magnesium 1.9 mg/dL (1.8-2.4); Potassium 3.5 mmol/L (3.5-5.1)
[2020-04-30 07:42] LABS: Magnesium 2.1 mg/dL (1.8-2.4); Potassium 3.5 mmol/L (3.5-5.1)
== END 2020-05-02 23:59 | disposition home or self-care (01) ==
LOC: INF 04:36
PROVIDERS: PCP Student in an Organized Health Care Education/Training Program; Visit Provider Student in an Organized Health Care Education/Training Program
DX: E83.42 Hypomagnesemia (principal); E87.6 Hypokalemia
CPT/HCPCS: 36415; 80048; 96365; 96366; 83735; 84132; J3475; J3480

== ENCOUNTER 2020-05-14 02:39 | Outpatient (CLI) | payer BC, SELFPAY ==
--- NOTE | 2020-05-14 06:30 | DI.MAMMO_ITS ---
EXAM: MAMMO SCREENING CLINICAL HISTORY: screening,Z12.39 TECHNIQUE: Mammograms were interpreted according to the usual protocol including computer analysis w [employer] CAD system, tomosynthesis and C-view imaging. COMPARISON: 2010 through 2018 FINDINGS: The breasts are composed of heterogeneously dense fibroglandular densities, Breast Density category C . No suspicious masses or suspicious microcalcifications are seen. No skin thickening or abnormal axillary lymph nodes are seen. There has been no significant change from prior exams. IMPRESSION: BI-RADS Category 1, Negative mammogram. Yearly screening mammography is recommended. Breast Density Category C, heterogeneously Dense. The mammogram demonstrates the patient's breast tissue is dense. Dense breast tissue is very common a nd is not abnormal but dense breast tissue can make it harder to find cancer on a mammogram. Also, de nse breast tissue may increase breast cancer risk. This information about the result of the mammogram report was provided to the patient to raise their awareness. Use this report when you speak with the patient about their risks for breast cancer, which includes their family history. At that time, you may recommend additional screening tests (Ultrasound or MRI) as they might be useful based on their r isk. A negative radiographic report should not delay biopsy if a dominant or clinically suspicious mass is present. Up to ten percent of cancers are not identified on mammography. A negative report may reinforce clinical impression. Adenosis and dense breasts may obscure an underlying neoplasm. False positive reports average 6 to 10%.
== END 2020-05-14 02:40 ==
LOC: DI 02:39
PROVIDERS: PCP Student in an Organized Health Care Education/Training Program; Visit Provider Student in an Organized Health Care Education/Training Program
DX: Z12.31 Encounter for screening mammogram for malignant neoplasm of breast (principal)
CPT/HCPCS: 77063; 77067

== ENCOUNTER 2020-05-19 03:10 | Outpatient (CLI) | payer BC, SELFPAY ==
[2020-05-19 08:19] LABS: Abs Immature Grans 0.01 10^3/uL (0.0-0.06); Absolute Basophil Count 0.03 10^3/uL (0.0-0.2); Absolute Eosinophil Count 0.19 10^3/uL (0.0-0.7); Absolute Lymphocyte Count 3.36 10^3/uL (1.2-3.4); Absolute Monocyte Count 0.51 10^3/uL (0.1-0.8); Absolute Neutrophil Count 2.65 10^3/uL (1.2-6.7); Basophils % 0.4; Eosinophils % 2.8; HCT 39.5 % (36.0-46.0); HGB 13.5 g/dL (11.2-15.7); Immature Grans % 0.1; Lymphocytes % 49.8; MCH 29.1 pg (27.0-33.0); MCHC 34.2 % (32.0-36.0); MCV 85.1 fL (80-95); MPV 9.6 fL (8.0-11.0); Monocytes % 7.6; Neutrophils % 39.3; Nucleated RBC 0 %; Platelet Count 376 10^3/uL (130-400); RBC 4.64 10^6/uL (3.93-5.22); RDW 12.6 % (11.7-14.6); RDW-SD 38.5 fL; WBC 6.75 10^3/uL (4.4-10.8)
[2020-05-19 10:09] LABS: Anion Gap 10.5 mmol/L (3-11); BUN 14 mg/dL (7-18); CO2 28.5 mmol/L (21.0-32.0); CREATININE 0.9 mg/dL (0.55-1.02); Calcium 9.1 mg/dL (8.5-10.1); Chloride 101 mmol/L (98-107); Glucose 98 mg/dL (74-106); Magnesium 2.1 mg/dL (1.8-2.4); Sodium 140 mmol/L (136-145)
[2020-05-19 10:20] LABS: C-Reactive Protein < 0.05 mg/dL (0.0-0.3)
[2020-05-19 14:48] LABS: ESR 13 mm/hr (<or=30)
[2020-05-19 21:15] LABS: Rheumatoid Factor <8.6 IU/mL (<12.0)
[2020-05-24 12:03] LABS: Cryoglobulin, S Negative %ppt (Negative)
== END 2020-05-19 03:11 | disposition home or self-care (01) ==
LOC: LBO 03:11
PROVIDERS: PCP Student in an Organized Health Care Education/Training Program; Visit Provider Family Medicine
DX: L81.8 Other specified disorders of pigmentation (principal); M79.675 Pain in left toe(s); M79.674 Pain in right toe(s); D50.9 Iron deficiency anemia, unspecified; E06.3 Autoimmune thyroiditis
CPT/HCPCS: 36415; 80048; 85652; 82595; 83735; 85025; 86140; 86431

== ENCOUNTER 2020-05-31 13:00 | Outpatient (RCR) | payer BC, SELFPAY ==
[2020-05-31 13:29] LABS: Magnesium 2.3 mg/dL (1.8-2.4); Potassium 3.3 mmol/L (3.5-5.1)
== END 2020-06-30 23:59 | disposition home or self-care (01) ==
LOC: INF 13:00
PROVIDERS: PCP Student in an Organized Health Care Education/Training Program; Visit Provider Student in an Organized Health Care Education/Training Program
DX: E83.42 Hypomagnesemia (principal); E87.6 Hypokalemia
CPT/HCPCS: 36415; 83735; 84132

== ENCOUNTER 2020-07-14 12:58 | Emergency (ER) | payer BC, SELFPAY ==
[2020-07-14 13:12] VITALS: BP 122/78; PULSE 69; RESP 16; TEMP 36.2; O2SAT 99
--- NOTE | 2020-07-14 13:45 | RT.EKG_ITS ---
APPROVED REPORT Exam: Resting ECG Patient Location: E HR:76 bpm ECG Measurements Heart Rate 76 AXIS IL 177 P 16 QRSd 105 QRS -29 QT 408 T 38 QTc 461 Conclusion Sinus rhythm...normal P axis, V-rate 60- 99 Anterior infarct, old...Q >40mS, abnormal ST-T, V2-V5
[2020-07-14 14:20] VITALS: RESP 20
[2020-07-14 14:47] LABS: Abs Immature Grans 0.02 10^3/uL (0.0-0.06); Absolute Basophil Count 0.06 10^3/uL (0.0-0.2); Absolute Eosinophil Count 0.24 10^3/uL (0.0-0.7); Absolute Lymphocyte Count 3.38 10^3/uL (1.2-3.4); Absolute Monocyte Count 0.49 10^3/uL (0.1-0.8); Absolute Neutrophil Count 3.83 10^3/uL (1.2-6.7); Basophils % 0.7; HCT 41.9 % (36.0-46.0); HGB 13.9 g/dL (11.2-15.7); Immature Grans % 0.2; Lymphocytes % 42.1; MCH 29.4 pg (27.0-33.0); MCHC 33.2 % (32.0-36.0); MCV 88.8 fL (80-95); MPV 9.8 fL (8.0-11.0); Monocytes % 6.1; Neutrophils % 47.9; Nucleated RBC 0 %; Platelet Count 390 10^3/uL (130-400); RBC 4.72 10^6/uL (3.93-5.22); RDW 13.2 % (11.7-14.6); RDW-SD 43.4 fL; WBC 8.02 10^3/uL (4.4-10.8)
--- NOTE | 2020-07-14 14:58 | W.ED.GENAD ---
Discharge Plan Disposition Patient Disposition: AGAINST MEDICAL ADVICE Condition: Good Discharge Details Clinical Impression: Paresthesias Primary Care Provider: Huyen Ramon ED Provider: Corinna Jernigan Home Meds and New Rx's Prescriptions: No Action amiloride 5 mg tablet 5 mg PO BID Qty: 180 RF: 3 (DME) hair prosthesis See Rx Instructions .Route .MEDSUPPLY Qty: 1 RF: 1 bupropion HCl [Wellbutrin XL] 300 mg tablet extended release 24 hr 300 mg PO DAILY Qty: 90 RF: 3 hydrochlorothiazide 25 mg tablet 25 mg PO BID PRN (Reason: edema) Qty: 180 RF: 3 triamcinolone acetonide 0.5 % ointment 1 applic TP BID Qty: 30 RF: 1 gabapentin 800 mg tablet 800 mg PO BID Qty: 180 RF: 3 wderdbdyigni-xgakrlnv-jblqwi Tablet 1 tab PO QID RF: 0 potassium chloride 20 mEq tablet extended release 20 meq PO DAILY PRN (Reason: hypokalemia) Qty: 30 RF: 0 Hold Instructions: Changed by Provider (DME) Scalp Hair Prosthesis Qty: 1 RF: 1 omeprazole 40 mg capsule,delayed release(DR/EC) 40 mg PO DAILY Qty: 90 RF: 3 tramadol 50 mg tablet 50 mg PO QHS PRN (Reason: pain) Qty: 30 RF: 3 carvedilol 6.25 mg tablet 6.25 mg PO BID RF: 0 lisinopril 5 mg tablet 10 mg PO DAILY RF: 0 Discharge Instructions Additional Instructions: You are leaving prior to complete evaluation, including CT scan of your head You are leaving against our recommendation and that it is essential that you either return to the emergency room or follow-up with your doctor for further evaluation Please follow-up with your doctor tomorrow Discharge Data Discharge Date/Time-TO BE ENTERED AT DEPARTURE: 07/14/20 16:33 Medical Decision Making Patient is alert, oriented, of decisional capacity, she is speaking in complete is relatively asymptomatic aside from some bilateral maxillary paresthesias and tongue paresthesia There is no evidence of anaphylaxis or acute CVA, TIA, the distribution of her symptoms makes it unlikely to be related to neurological event Suspect with her peripheral extremity Recommend CTA brain which patient has declined, she has been waiting a period of time unfortunately she is unwilling to wait longer to have a CT performed, I did discuss risk-benefit with patient and she is aware of these with She is completely alert, oriented, of decisional capacity, she is otherwise completely neurologically intact, well-appearing, and ambulatory with steady gait Her electrolytes and diagnostic labs overall appear well, I do not see acute pathology Case was discussed my attending physician, Dr. Whitlock Patient discharged home without CT scan and will follow up in the outpatient setting, she is leaving against our medical recommendation and she is aware of this Verbal consent was obtained Patient instructed to return with persistent or worsening or follow-up very closely in the outpatient setting with her provider Differential Diagnosis Differential Diagnosis: CVA, TIA, Raynaud's, electrolyte abnormality Medical Records Medical records reviewed: Yes I reviewed the patient's medical records. Lab Data Lab results reviewed: Yes I reviewed the patient's lab results. HPI This 49-year-old female with history of Marylou thyroiditis, gastric bypass, type 2 diabetes, cervical radiculopathy, electrolyte abnormality, positive TG, migraine headache presents for report of transient discoloration to left third digit at the most distal aspect while she was cutting yesterday. She states that there is white discoloration followed by blue discoloration all which resolved within 1 minute. She states she had a similar episode today which lasted approximately 1 to 2 minutes. This affected her right fourth digit. She also states that she had bilateral maxillary paresthesias and perioral paresthesia today. She states that this has been transient. She denies any chest pain or shortness of breath. She denies any dizziness or weakness. She denies any speech or sensation changes. She denies any fever or chills. She states otherwise she feels quite well. She denies any dizziness or headache. General Date/Time Provider Initiated Documentation: 07/14/20 13:02. Related Data Home Medications Medication Instructions Recorded Confirmed bupropion HCl 300 mg 24 hr tablet, 300 mg PO DAILY #90 tab 05/05/19 07/14/20 extended release amiloride 5 mg tablet 5 mg PO BID #180 tab 07/11/19 07/14/20 hydrochlorothiazide 25 mg tablet 25 mg PO BID PRN #180 tab 08/11/19 07/14/20 triamcinolone acetonide 0.5 % 1 applic TP BID #30 gm 11/05/19 07/14/20 topical ointment gabapentin 800 mg tablet 800 mg PO BID #180 tab 03/08/20 07/14/20 rwwuiqmvsery-exxdtiht-shpsxs tablet 1 tab PO QID tab 03/23/20 07/14/20 potassium chloride 20 mEq 20 meq PO DAILY PRN #30 tab 03/25/20 07/14/20 tablet,extended release Scalp Hair Prosthesis #1 ea 05/19/20 07/02/20 omeprazole 40 mg capsule,delayed 40 mg PO DAILY #90 tab 06/07/20 07/14/20 release tramadol 50 mg tablet 50 mg PO QHS PRN #30 tab 06/16/20 07/14/20 carvedilol 6.25 mg PO BID 07/14/20 07/14/20 lisinopril 10 mg PO DAILY 07/14/20 07/14/20 Previous Rx's Medication Instructions Recorded bupropion HCl 300 mg 24 hr tablet, 300 mg PO DAILY #90 tab 05/05/19 extended release amiloride 5 mg tablet 5 mg PO BID #180 tab 07/11/19 hydrochlorothiazide 25 mg tablet 25 mg PO BID PRN #180 tab 08/11/19 triamcinolone acetonide 0.5 % 1 applic TP BID #30 gm 11/05/19 topical ointment gabapentin 800 mg tablet 800 mg PO BID #180 tab 03/08/20 potassium chloride 20 mEq 20 meq PO DAILY PRN #30 tab 03/25/20 tablet,extended release Scalp Hair Prosthesis #1 ea 05/19/20 omeprazole 40 mg capsule,delayed 40 mg PO DAILY #90 tab 06/07/20 release tramadol 50 mg tablet 50 mg PO QHS PRN #30 tab 06/16/20 Allergies Allergy/AdvReac Type Severity Reaction Status Date / Time atropine Allergy Intermediate HIVES, Verified 07/14/20 13:18 SWOLLEN spironolactone Allergy Intermediate Skin Rash Verified 07/14/20 13:18 eplerenone AdvReac Intermediate swelling; Verified 07/14/20 13:18 SOB iron [From Venofer] AdvReac Intermediate Swelling/Ed Verified 07/14/20 13:18 brandon General Stated Complaint: GenMedical JOBY: 3 Review of Systems Narrative: Review of systems negative times 7 aside from indication in the [facility] Medical History Abnormal serum creatinine level (07/2018) Serious Creatinine elevation, with resolution between episodes of dehydration .. Alopecia Anemia Dehydration (~08/21/18) Several episodes now .. She can almost gauge her K levels based on mm weakness. [ ] BMP [ ] IVF-KCl Bolus-K have helped with hypokalemia in between bouts of diarrhea/dehydration when IVF not needed. 09/2018, mian Depression Depressive disorder (05/23/11) Wellbutrin 2012, discon 12/2012, restart 05/2013 Discharge planning issues Discoloration of skin Encounter for insertion of venous access port on HOLD since K improvement 05/2019 GERD (gastroesophageal reflux disease) Marylou's thyroiditis Hx of adenomatous colonic polyps Hypokalemia (11/07/16) Chronic, possible 2' IBS/Diarrhea. Continued despite GI improvements, albeit improved. Trial Eplerenone, to be followed by HCTZ decrease. 10/09/18 Intermittent improvement, but unsteady and unpredictable .. Monisha seems unable to maintain her own K levels WNL w/o bolus/infusions at this time. Unable to tolerate K-sparing diuretics. Cont to research, evaluate, consult .. 09/2018, mian Hypotension post gastric bypass ... lowering ACEi, BB, CCB. DIuretics in place 2' LE edema (albeit improved). Irritable bowel syndrome diarrhea predominant Migraine headache with aura DR. VALDEZ 08/29/11 [employer] Vertigo and/or pain Poor venous access on examination Preeclampsia Rectal hemorrhage (03/02/15) Reflux esophagitis Sustained VT (ventricular tachycardia) during hypokalemia episode Surgical History section x3 Colonoscopy - MAC (03/16/14) w/ bx 2015-serrated adenomatous polyp EGD - MAC 2015 Endometrial Ablation 2007 2012 H/O colonoscopy (12/05/17) History of esophagogastroduodenoscopy (EGD) (12/05/17) History of Nadia-en-Y gastric bypass (~11/2019) Tonsillectomy Family History Mother Pulmonary hypertension Heart disease valve replacement Father Prostate cancer Essential hypertension Parkinsons Sister Uterine cancer Brother No problems noted. 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, 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 Pets and animals: Yes Pets and animals: cat(s) and dog(s) What is your relationship status?: living with partner Panel score (0-1 are the most socially isolated patients): 1 What type of physical activity do you participate in: walking Duration: 15-30 minutes/day Frequency: 3-4 times per week Seatbelt use: always Working smoke detector in home: Yes Fire extinguisher in home: Yes Carbon monox detector in home: Yes Firearms in home: No Do you feel safe at home: Yes Do you feel safe in your relationship?: Yes Female Reproductive History Menstrual control method: permanent sterilization History History 3 Para 4 Hx # Term Pregnancies Multiple births 1 Hx # Pregnancies Ectopic pregnancies AB induced Hx Number of Living Children AB spontaneous Exam Const General: cooperative, healthy appearing, comfortable and no acute distress HENMT Other: Uvula midline Eyes Pupils: PERRL Neck Other: No carotid bruit Resp Effort & Inspection: normal respiratory effort Auscultation: clear to auscultation bilaterally Cardio Rate: regular rate Rhythm: regular rhythm Skin General skin exam: no rashes or lesions noted Neuro General: patient alert, patient oriented x3 and CN's II-XI intact bilaterally Motor: strength 5/5 throughout and no pronator drift Sensory Exam: no sensory deficits noted Coordination: oxyabn-gf-jkbv test normal Extrem Other: Distal pulses intact all 4 extremities and brisk capillary refill to all extremities Course Vital Signs Vital signs: Vital Signs Temperature 36.2 C L 07/14/20 13:12 Pulse 69 07/14/20 13:12 Respiratory Rate 16 07/14/20 13:12 Blood Pressure 122/78 07/14/20 13:12 Pulse Oximetry 99 07/14/20 13:12 Temperature 36.2 C L 07/14/20 13:12 Temperature Source Skin 07/14/20 13:12 Pulse 69 07/14/20 13:12 Respiratory Rate 20 07/14/20 14:20 Respiratory Effort Non-Labored 07/14/20 14:20 Respiratory Depth Normal 07/14/20 14:20 Respiratory Pattern Normal 07/14/20 14:20 Blood Pressure 122/78 07/14/20 13:12 Blood Pressure Position Sitting 07/14/20 13:12 Pulse Oximetry 99 07/14/20 13:12 Oxygen Delivery Method Room Air 07/14/20 13:12 Oxygen Flow Rate 0 07/14/20 13:12 Pain Level 0 07/14/20 13:12 Lab/Test Results Lab/Test Results: Laboratory Tests Range/Units 07/14/20 14:22 WBC (4.4-10.8) 10^3/uL 8.02 RBC (3.93-5.22) 10^6/uL 4.72 Hgb (11.2-15.7) g/dL 13.9 Hct (36.0-46.0) % 41.9 MCV (80-95) fL 88.8 MCH (27.0-33.0) pg 29.4 MCHC (32.0-36.0) % 33.2 RDW (11.7-14.6) % 13.2 Plt Count (130-400) 10^3/uL 390 MPV (8.0-11.0) fL 9.8 Immature Gran % 0.2 Neutrophils % 47.9 Lymphocytes % 42.1 Monocytes % 6.1 Eosinophils % 3.0 Basophils % 0.7 Nucleated RBC % % 0 Absolute Neutrophils (1.2-6.7) 10^3/uL 3.83 Absolute Lymphocytes (1.2-3.4) 10^3/uL 3.38 Absolute Monocytes (0.1-0.8) 10^3/uL 0.49 Absolute Eosinophils (0.0-0.7) 10^3/uL 0.24 Absolute Basophils (0.0-0.2) 10^3/uL 0.06
[2020-07-14 15:00] LABS: ALT 32 U/L (14-59); AST 21 U/L (15-37); Albumin 3.7 g/dL (3.4-5.0); Alkaline Phosphatase 66 U/L (46-116); Anion Gap 6.7 mmol/L (3-11); BUN 17 mg/dL (7-18); Bilirubin, Total 0.3 mg/dL (0.2-1.0); CO2 30.3 mmol/L (21.0-32.0); CREATININE 1.1 mg/dL (0.55-1.02); Chloride 102 mmol/L (98-107); Estimated GFR 52.58 (mL/min/1.73m2); Glucose 126 mg/dL (74-106); Potassium 3.3 mmol/L (3.5-5.1); Sodium 139 mmol/L (136-145); TSH 2.66 uIU/mL (0.36-3.74); Total Protein 7.5 g/dL (6.4-8.2)
== END 2020-07-14 16:33 | disposition left against medical advice (07) ==
PROVIDERS: Emergency Provider Physician Assistant; PCP Student in an Organized Health Care Education/Training Program
DX: R20.2 Paresthesia of skin (principal); Z53.29 Procedure and treatment not carried out because of patient's decision for other reasons
CPT/HCPCS: 36415; 80053; 93005; 99284; 83735; 84443; 85025; 93010

== ENCOUNTER 2020-12-17 15:48 | Outpatient (CLI) | payer OTHER, SELFPAY ==
--- NOTE | 2020-12-17 09:45 | DI.RAD_ITS ---
Exam(s) XR CHEST 2V PA LATERAL EXAM: XR CHEST 2V PA LATERAL CLINICAL HISTORY: evaluate lung 2' auscult asymmetry COUGH R05 Z87.09 R09.89 TECHNIQUE: 2D digital imaging was performed of the chest. Two images were obtained. PA and lateral views were obtained. COMPARISON: CR XR PORTABLE CHEST AP from 01/14/2019 CR XR PORTABLE CHEST AP from 01/14/2019 CR XR CHEST 2V PA LATERAL from 02/14/2019 FINDINGS: MEDIASTINUM: Normal. HEART: Normal. PULMONARY VASCULATURE: Normal. LUNGS: Clear. There is a 9 mm ovoid density in the left upper lobe. This may represent a summation of shadows versus a pulmonary nodule. PLEURAL SPACE: No pleural effusion or pneumothorax. BONE:Within normal limits for the patient's age. OTHER FINDINGS:Normal. IMPRESSION: 9 mm ovoid density in the left upper lobe. Summation artifact versus pulmonary nodule. CT scan of t he chest should be obtained for further evaluation. DATA REPOSITORY: RADIATION DOSE DELIVERED:
== END 2020-12-17 16:08 ==
PROVIDERS: PCP Student in an Organized Health Care Education/Training Program; Visit Provider Student in an Organized Health Care Education/Training Program
DX: R05 Cough (principal); R09.89 Other specified symptoms and signs involving the circulatory and respiratory systems; Z87.09 Personal history of other diseases of the respiratory system; R91.8 Other nonspecific abnormal finding of lung field
CPT/HCPCS: 71046

== ENCOUNTER 2020-12-21 02:08 | Outpatient (CLI) | payer OTHER, SELFPAY ==
[2020-12-21 13:13] LABS: BUN 14 mg/dL (7-18); CREATININE 0.9 mg/dL (0.55-1.02); Chloride 102 mmol/L (98-107); Glucose 86 mg/dL (74-106); Magnesium 2.3 mg/dL (1.8-2.4); Sodium 140 mmol/L (136-145)
== END 2020-12-21 02:09 | disposition home or self-care (01) ==
LOC: LBO 02:08
PROVIDERS: PCP Student in an Organized Health Care Education/Training Program; Visit Provider Student in an Organized Health Care Education/Training Program
DX: E83.42 Hypomagnesemia (principal); E87.6 Hypokalemia; I95.9 Hypotension, unspecified
CPT/HCPCS: 36415; 80048; 83735

== ENCOUNTER 2021-02-16 10:49 | Emergency (ER) | payer OTHER, SELFPAY ==
[2021-02-16] VITALS (16 sets, daily range): BP systolic 138–173; BP diastolic 97–112; PULSE 67–84; RESP 12–22; TEMP 36.5–36.6; O2SAT 82–100
--- NOTE | 2021-02-16 11:00 | DI.CT_ITS ---
Exam(s) CT BRAIN NECK CTA EXAM: CT BRAIN NECK CTA CLINICAL HISTORY: Blurry vision, twitches. TECHNIQUE: Imaging Protocol: Axial CT angiography was performed with multi-slice acquisition and mu lti-planar and/or 3D reconstructions. CONTRAST MATERIAL: Intravenous: Omnipaque 350 Contrast volume:structured data in ml COMPARISON: CT CT CHEST PE CTA from 01/14/2019 FINDINGS: CT angiography of the cervical cranial region was performed according to the usual protocol with intr avenous infusion of 100 cc of Omnipaque 350.. Initial noncontrast scanning of the head is unremarkable. Visualized lung apices are clear. Visualized portions of thoracic aorta and pulmonary arterial circul ation are unremarkable. There is no evidence of a cervical mass or adenopathy. The tracheal laryngeal structures appear intact. The common, internal, and external carotid arteries are within normal limits in the cervical region w ith no evidence of aneurysm, stenosis, or dissection. The vertebral arteries are unremarkable in appearance in the cervical region with no evidence of aneu rysm, stenosis, or dissection. Intracranial portions of the internal carotid arteries appear normal with no evidence of aneurysm, st enosis, or dissection. Intracranial vertebral arteries and basilar artery appear normal with no evidence of aneurysm, stenos is or dissection. No aneurysm identified in the region of the myaxrf-og-Celfmt. The anterior, middle, and posterior cer ebral arteries and major branches appear intact with no evidence of aneurysm, stenosis, or dissection . No enhancing brain lesion identified on 5 minutes delayed images.. IMPRESSION: Negative CT angiography of the cervical cranial region. RADIATION DOSE DELIVERED: 2,047.38mGy.cmTotal DLP 2,047.38mGy.cm Total DLP CTDIvol DATA REPOSITORY: All CT scans at this facility are submitted to the National Radiology Data Registry (NRDR) Dose Index Registry (DIR) with the [employer] ([employer]). RADIATION OPTIMIZATION: All CT scans at this facility use at least one of these dose optimization te chniques: automated exposure control; mA and/or kV adjustment per patient size (includes targeted exa ms where dose is matched to clinical indication); or iterative reconstruction.
--- NOTE | 2021-02-16 11:11 | ED.GENADUL_ITS ---
Discharge Plan Disposition Patient Disposition: HOME Condition: Stable Discharge Details Clinical Impression: Facial twitching Primary Care Provider: Huyen Ramon ED Provider: Andreia Shah Home Meds and New Rx's Prescriptions: No Action carvedilol 6.25 mg tablet 6.25 mg PO DAILY RF: 0 pramipexole 0.25 mg tablet 0.25 mg PO QHS Qty: 30 RF: 5 (DME) hair prosthesis See Rx Instructions .Route .MEDSUPPLY Qty: 1 RF: 1 triamcinolone acetonide 0.5 % ointment 1 applic TP BID Qty: 30 RF: 1 potassium chloride 20 mEq tablet extended release 20 meq PO DAILY PRN (Reason: hypokalemia) Qty: 30 RF: 0 Hold Instructions: Changed by Provider hydrochlorothiazide 25 mg tablet 25 mg PO BID PRN (Reason: edema) Qty: 180 RF: 3 amiloride 5 mg tablet 5 mg PO BID Qty: 180 RF: 3 bupropion HCl [Wellbutrin XL] 300 mg tablet extended release 24 hr 300 mg PO DAILY Qty: 90 RF: 3 omeprazole 40 mg capsule,delayed release(DR/EC) 40 mg PO DAILY Qty: 90 RF: 3 bariatric fusion chewable complete 2 tab tablet PO DAILY RF: 0 venlafaxine 75 mg tablet 75 mg PO BID Qty: 180 RF: 3 gabapentin 800 mg tablet 800 mg PO BID Qty: 180 RF: 0 (DME) Scalp Hair Prosthesis Qty: 1 RF: 1 lisinopril 5 mg tablet 10 mg PO DAILY RF: 0 Hold Instructions: cough and low bp 12/2020 Discharge Instructions Instructions: Muscle Spasm (ED) Additional Instructions: At this time does not appear that you are having a stroke or cerebrovascular accident. The facial twitching may be anxiety induced or as a result of the Effexor. I do recommend that you take 1 a day for the next few days to see if this improves her symptoms. Please discuss this with your primary care provider. Your potassium today was slightly low at 3.4. Follow up with primary care provider in 3-5 days. Return to ED sooner if any worsening or concerns. Increase oral fluids. Please take Tylenol or Ibuprofen with food every 4-6 hours as needed for pain and swelling. Stand Alone Forms: Work Release Referrals: Huyen Ramon DO [Primary Care Provider] - 3 days Medical Decision Making 50-year-old female presents to the ER with chief complaint of facial twitching facial numbness associated with blurry vision which began this morning. No other focal neuro deficits noted. Intact [id number], intact dorsiflexion and pedal flexion, intact great toe flexion extension. No facial droop noted no nystagmus. Work-up ordered including CBC, CMP, urinalysis, urine drug screen, TSH with refractory T4, CTA brain and neck to rule out CVA. Differential diagnosis includes venlafaxine adverse drug reaction, anxiety, metabolic abnormality Labs show an unremarkable CBC, potassium is slightly low at 3.4, urinalysis within normal limits, UDS within normal limits TSH is pending at this time. Upon further record review patient was seen by Dr. Catie Salmeron neurologist yesterday and was prescribed Mirapex 0.25 mg q. bedtime 1300: CTA Brain WNL. Discussed results with Pt plan for DC HPI General Mode of arrival: ambulatory . Date/Time Provider Initiated Documentation: 02/16/21 10:59 . Limitations to Documentation: no limitations . Information obtained by: patient, RN notes reviewed and old records reviewed . HPI Narrative: 50-year-old female presents to the ER with chief complaint of facial twitching and blurry vision which began this morning after presenting to work. Patient reports that her vision goes in and out of focus, she does have multiple blinking of her eyelids, she also reports that her tongue is twitching and lips are floppy. She also reports some facial numbness which is intermittent. She denies any weakness numbness tingling in her arms or legs. She denies any headache. She does report that she has been taking venlafaxine for approximately 1 month. She denies any other changes in her medications or supplements. She also reports that she does have a history of anxiety but is never manifested this way. She denies any head injuries or trauma. Past medical history includes depression, GERD, Marylou's thyroiditis, thyroid irritable bowel syndrome. Related Data Home Medications Medication Instructions Recorded Confirmed triamcinolone acetonide 0.5 % 1 applic TP BID #30 gm 11/05/19 02/16/21 topical ointment potassium chloride 20 mEq 20 meq PO DAILY PRN #30 tab 03/25/20 02/16/21 tablet,extended release lisinopril 10 mg PO DAILY 07/14/20 02/16/21 hydrochlorothiazide 25 mg tablet 25 mg PO BID PRN #180 tab 08/06/20 02/16/21 amiloride 5 mg tablet 5 mg PO BID #180 tab 08/26/20 02/16/21 bupropion HCl 300 mg 24 hr tablet, 300 mg PO DAILY #90 tab 08/31/20 02/16/21 extended release omeprazole 40 mg capsule,delayed 40 mg PO DAILY #90 tab 08/31/20 02/16/21 release bariatric fusion chewable complete PO DAILY 12/28/20 02/15/21 venlafaxine 75 mg tablet 75 mg PO BID #180 tab 01/13/21 02/16/21 gabapentin 800 mg tablet 800 mg PO BID #180 tab 01/31/21 02/16/21 Scalp Hair Prosthesis #1 ea NS 02/03/21 02/15/21 carvedilol 6.25 mg tablet 6.25 mg PO DAILY tab 02/15/21 02/16/21 pramipexole 0.25 mg tablet 0.25 mg PO QHS #30 tab 02/15/21 02/16/21 Previous Rx's Medication Instructions Recorded triamcinolone acetonide 0.5 % 1 applic TP BID #30 gm 11/05/19 topical ointment potassium chloride 20 mEq 20 meq PO DAILY PRN #30 tab 03/25/20 tablet,extended release hydrochlorothiazide 25 mg tablet 25 mg PO BID PRN #180 tab 08/06/20 amiloride 5 mg tablet 5 mg PO BID #180 tab 08/26/20 bupropion HCl 300 mg 24 hr tablet, 300 mg PO DAILY #90 tab 08/31/20 extended release omeprazole 40 mg capsule,delayed 40 mg PO DAILY #90 tab 08/31/20 release venlafaxine 75 mg tablet 75 mg PO BID #180 tab 01/13/21 gabapentin 800 mg tablet 800 mg PO BID #180 tab 01/31/21 Scalp Hair Prosthesis #1 ea NS 02/03/21 pramipexole 0.25 mg tablet 0.25 mg PO QHS #30 tab 02/15/21 Allergies Allergy/AdvReac Type Severity Reaction Status Date / Time atropine Allergy Intermediate HIVES, Verified 02/16/21 10:59 SWOLLEN spironolactone Allergy Intermediate Skin Rash Verified 02/16/21 10:59 eplerenone AdvReac Intermediate swelling; Verified 02/16/21 10:59 SOB iron [From Venofer] AdvReac Intermediate Swelling/Ed Verified 02/16/21 10:59 brandon General Stated Complaint: CVA/TIA JOBY: 3 Review of Systems All systems reviewed & are unremarkable except as noted in HPI and below Constitutional Constitutional: Reports as per HPI, Denies fever(s), Denies headache(s) and Denies weakness Eyes Eyes: Reports change in vision, Reports diplopia and Reports floaters ENT Ears, Nose, Mouth, and Throat: Reports as per HPI, Denies dysphagia, Denies headache(s), Denies hearing loss and Denies neck pain Comments: tongue twitching and mouth twitching Cardiovascular Cardiovascular: Denies chest pain, Denies diaphoresis, Denies syncope, Denies pedal edema, Denies leg edema and Denies dyspnea Respiratory Respiratory: Denies cough and Denies dyspnea Gastrointestinal Gastrointestinal: Denies dysphagia, Denies diarrhea, Denies nausea and Denies vomiting Genitourinary Genitourinary: Denies difficulty voiding Musculoskeletal Musculoskeletal: Denies abnormal gait, Denies neck pain, Denies numbness and Denies tingling Neurologic Neurologic: Reports abnormal movements, Denies abnormal gait, Denies syncope, Denies headache(s), Denies numbness, Denies restless legs, Denies tingling, Reports tremor(s) (Facial twitching) and Denies weakness [facility] Active Problem List Nodule of left lung (Acute) Paresthesias (Acute) Discoloration of skin (Acute) Hypotension (Acute) History of Nadia-en-Y gastric bypass (Acute ~11/2019) Depressive disorder (Chronic 05/23/11) Class 3 severe obesity due to excess calories with body mass index (BMI) of 40.0 to 44.9 in adult (Acute) Hx of Marylou thyroiditis (Acute) Complicated grieving (Acute) Imbalance (Acute) Cervical radiculopathy (Acute) Hematuria (Acute) Diabetes mellitus type 2 in obese (Acute) Other seborrheic keratosis (Acute) Hypomagnesemia (Acute) Leg edema (Acute) Hypokalemia (Acute 11/07/16) Flash pulmonary edema (Acute) Lymphedema (Chronic) Bunion (Acute) Sustained VT (ventricular tachycardia) (Acute) Abnormal serum creatinine level (Acute 07/2018) Fatty liver (Acute) Angioedema (Acute) Flushing (Acute) Out of work (Acute 08/21/18) Elevated plasma metanephrines (Acute 08/2018) Kidney stone (Acute 02/27/12) Migraine headache with aura (Chronic) Uterine leiomyoma (Acute 11/02/15) Serrated adenoma of colon (Acute 07/07/15) Sensorineural hearing loss, bilateral (Chronic 11/01/17) Restless leg (Acute 03/31/15) Reflux esophagitis (Acute 07/07/15) Rectal bleeding (Acute 03/02/15) Premenstrual dysphoric disorder (Acute 11/10/14) Positive TG (antinuclear antibody) (Acute 06/07/15) Mgrn w aura w intrc mgrn (Acute 09/05/11) Mgrn wo aura wo ntrc mgr (Acute 09/05/11) Incomplete tear of left rotator cuff (Acute 05/31/16) Impaired fasting glucose (Acute 02/11/14) Essential hypertension (Acute 12/05/12) Diarrhea (Acute 10/29/15) Alopecia areata (Acute 05/23/11) Medical History Alopecia Anemia Dehydration (~08/21/18) Several episodes now .. She can almost gauge her K levels based on mm weak ness. [ ] BMP [ ] IVF-KCl Bolus-K have helped with hypokalemia in between bouts of diarrhea/dehydration when IVF not needed. 09/2018, ik Depression Discharge planning issues GERD (gastroesophageal reflux disease) Marylou's thyroiditis Hx of adenomatous colonic polyps Irritable bowel syndrome diarrhea predominant Preeclampsia Rectal hemorrhage (03/02/15) Reflux esophagitis Surgical History section x3 Colonoscopy - MAC (03/16/14) w/ bx 2015-serrated adenomatous polyp EGD - MAC 2015 Endometrial Ablation 2007 2012 H/O colonoscopy (12/05/17) History of esophagogastroduodenoscopy (EGD) (12/05/17) Tonsillectomy Family History Mother Pulmonary hypertension Heart disease valve replacement Father Prostate cancer Essential hypertension Parkinsons Sister Uterine cancer Brother No problems noted. 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 Pets and animals: Yes Pets and animals: cat(s) and dog(s) What is your relationship status?: living with partner Panel score (0-1 are the most socially isolated patients): 1 What type of physical activity do you participate in: walking Duration: 15-30 minutes/day Frequency: 3-4 times per week Seatbelt use: always Working smoke detector in home: Yes Fire extinguisher in home: Yes Carbon monox detector in home: Yes Firearms in home: No Do you feel safe at home: Yes Do you feel safe in your relationship?: Yes Female Reproductive History Menstrual control method: permanent sterilization History History 3 Para 4 Hx # Term Pregnancies Multiple births 1 Hx # Pregnancies Ectopic pregnancies AB induced Hx Number of Living Children AB spontaneous Exam Narrative Exam Narrative: constitutional: Alert and oriented x3. Appears stated age. Normal body habitus. Head: Normocephalic, no trauma. Eyes: Pupils PERRL, Red reflex noted, EOM's intact. Eyelids symmetrical without lesions, discharge, or swelling. ENT: Bilateral TM's WNL, External ear normal to inspection, no mastoid TTP, swelling, or erythema, Nasal turbinates WNL, no nasal discharge. Normal dentition, Posterior pharynx WNL, no exudate. Chest: RRR, Normal S1, S2, distal pulses intact. Resp: Lungs clear to auscultation bilaterally, no wheezes, rales, or rhonchi. Abdomen: Soft, non-distended, Normoactive bowel sounds all 4 quads. Musculoskeletal:5/5 strength to all four extremities. Skin: No suspicious rashes or lesions. Capillary refill less than 2 sec. Neurologic: Cranial nerves II-XII intact. Alert and oriented x 3. Motor: No deficits noted. Sensory: Intact bilaterally all 4 extremities. Reflexes: DTR's intact bilaterally. No facial droop, intact [id number]-[id number] bilaterally, intact [id number] bilaterally, no focal neuro deficits noted. Does have some minor twitches noted to her mouth and tongue and repetitive blinking. No nystagmus. She reports blurry vision with EOMs. Hematologic/Lymphatic: No ecchymosis, no lymphadenopathy. Course Vital Signs Vital signs: Vital Signs Temperature 36.5 C 02/16/21 10:55 Pulse 84 02/16/21 10:55 Respiratory Rate 16 02/16/21 10:55 Blood Pressure 166/112 H 02/16/21 10:55 Pulse Oximetry 99 02/16/21 10:55 Temperature 36.5 C 02/16/21 10:55 Temperature Source Skin 02/16/21 10:55 Pulse 84 02/16/21 10:55 Respiratory Rate 16 02/16/21 10:55 Respiratory Effort Non-Labored 02/16/21 10:55 Blood Pressure 166/112 H 02/16/21 10:55 Blood Pressure Position Sitting 02/16/21 10:55 Pulse Oximetry 99 02/16/21 10:55 Oxygen Delivery Method Room Air 02/16/21 10:55 Oxygen Flow Rate 0 02/16/21 10:55 Pain Level 0 02/16/21 10:55
[2021-02-16] MEDS: Normal Saline Flush 10 ML SYR IVP (11:26)
[2021-02-16 11:34] LABS: Abs Immature Grans 0.01 10^3/uL (0.0-0.06); Absolute Basophil Count 0.05 10^3/uL (0.0-0.2); Absolute Eosinophil Count 0.27 10^3/uL (0.0-0.7); Absolute Monocyte Count 0.61 10^3/uL (0.1-0.8); Absolute Neutrophil Count 3.83 10^3/uL (1.2-6.7); Basophils % 0.6; Eosinophils % 3.3; HGB 13.5 g/dL (11.2-15.7); Immature Grans % 0.1; Lymphocytes % 40.9; MCH 29.4 pg (27.0-33.0); MCHC 33.8 % (32.0-36.0); MCV 87.1 fL (80-95); MPV 9.4 fL (8.0-11.0); Monocytes % 7.6; Neutrophils % 47.5; Nucleated RBC 0 %; Platelet Count 345 10^3/uL (130-400); RBC 4.59 10^6/uL (3.93-5.22); RDW 12.4 % (11.7-14.6); RDW-SD 39.5 fL; WBC 8.07 10^3/uL (4.4-10.8)
[2021-02-16 12:02] LABS: ALT 29 U/L (14-59); AST 19 U/L (15-37); Albumin 3.6 g/dL (3.4-5.0); Alkaline Phosphatase 57 U/L (46-116); Anion Gap 6.4 mmol/L (3-11); BUN 14 mg/dL (7-18); Bilirubin, Total 0.4 mg/dL (0.2-1.0); CO2 33.6 mmol/L (21.0-32.0); CREATININE 0.8 mg/dL (0.55-1.02); Chloride 104 mmol/L (98-107); Glucose 74 mg/dL (74-106); Magnesium 2.2 mg/dL (1.8-2.4); Potassium 3.4 mmol/L (3.5-5.1); Sodium 144 mmol/L (136-145); Total Protein 6.8 g/dL (6.4-8.2)
[2021-02-16 12:10] LABS: Clarity Clear (Clear); Leukocyte Esterase Negative (Negative)
[2021-02-16 12:11] LABS: Bilirubin Negative (Negative); Blood Negative (Negative); Glucose Negative (Negative); Ketones Negative (Negative); Nitrite Negative (Negative)
[2021-02-16 12:17] LABS: *AMPHETAMINES SCREEN URINE Negative (Negative); *BARBITURATES SCREEN URINE Negative (Negative); *BENZODIAZEPINES SCREEN URINE Negative (Negative); Cannabinoids THC Negative (Negative); Cocaine Screen,Urine Negative (Negative); METHADONE URINE SCREEN Negative (Negative); OPIATES URINE SCREEN Negative (Negative)
[2021-02-16 12:20] LABS: Tricyclic Antidepressants Negative (Negative)
[2021-02-16] MEDS: Omnipaque 350 MG/ML 100 ML BTL IJ (12:30)
[2021-02-16] MEDS: Normal Saline - Diluent 50 ML VIAL IV (12:40)
[2021-02-16 13:01] LABS: TSH (W/Ref FT4) 1.99 uIU/mL (0.36-3.74)
[2021-02-16] MEDS: Potassium Chloride 20 MEQ TABCR 40 MEQ PO (13:05)
== END 2021-02-16 13:25 | disposition home or self-care (01) ==
PROVIDERS: Emergency Provider Registered Nurse Emergency; PCP Student in an Organized Health Care Education/Training Program
DX: R25.3 Fasciculation (principal); H53.8 Other visual disturbances; R20.0 Anesthesia of skin; E78.6 Lipoprotein deficiency
CPT/HCPCS: 36415; 36416; 70496; 70498; 80053; 80307; 82962; 99285; 81003; 83735; 84443; 85025; 99284; J3490

== ENCOUNTER 2021-03-17 02:39 | Outpatient (CLI) | payer OTHER, SELFPAY ==
[2021-03-17 12:37] LABS: Anion Gap 4.6 mmol/L (3-11); BUN 1 mg/dL (7-18); CO2 32.4 mmol/L (21.0-32.0); Calculated LDL 70 mg/dL (<100); Chloride 103 mmol/L (98-107); Cholesterol 169 mg/dL (<200); Estimated GFR 58.45 (mL/min/1.73m2); Glucose 80 mg/dL (74-106); HDL Cholesterol 66 mg/dL (40-60); Magnesium 2.2 mg/dL (1.8-2.4); Potassium 3.4 mmol/L (3.5-5.1); Sodium 140 mmol/L (136-145); TSH (W/Ref FT4) 1.91 uIU/mL (0.36-3.74); Triglyceride 169 mg/dL (<150)
== END 2021-03-17 02:40 | disposition home or self-care (01) ==
LOC: LBO 02:39
PROVIDERS: PCP Student in an Organized Health Care Education/Training Program; Visit Provider Student in an Organized Health Care Education/Training Program
DX: E86.0 Dehydration (principal); R79.89 Other specified abnormal findings of blood chemistry; I95.9 Hypotension, unspecified; Z86.39 Personal history of other endocrine, nutritional and metabolic disease; Z13.220 Encounter for screening for lipoid disorders
CPT/HCPCS: 36415; 80048; 80061; 83735; 84443

== ENCOUNTER 2021-03-31 03:14 | Outpatient (CLI) | payer OTHER, SELFPAY ==
[2021-03-31 13:37] LABS: Anion Gap 6.9 mmol/L (3-11); BUN 18 mg/dL (7-18); CO2 33.1 mmol/L (21.0-32.0); CREATININE 0.9 mg/dL (0.55-1.02); Chloride 101 mmol/L (98-107); Glucose 68 mg/dL (74-106); Magnesium 2.2 mg/dL (1.8-2.4); Potassium 3.7 mmol/L (3.5-5.1); Sodium 141 mmol/L (136-145)
== END 2021-03-31 03:15 | disposition home or self-care (01) ==
LOC: LBO 03:14
PROVIDERS: PCP Student in an Organized Health Care Education/Training Program; Visit Provider Student in an Organized Health Care Education/Training Program
DX: E83.42 Hypomagnesemia (principal); E87.6 Hypokalemia
CPT/HCPCS: 36415; 80048; 83735

== ENCOUNTER 2021-05-05 02:58 | Outpatient (CLI) | payer OTHER, SELFPAY ==
[2021-05-05 08:56] LABS: Anion Gap 6.4 mmol/L (3-11); BUN 18 mg/dL (7-18); CO2 32.6 mmol/L (21.0-32.0); CREATININE 0.9 mg/dL (0.55-1.02); Calcium 9.1 mg/dL (8.5-10.1); Chloride 102 mmol/L (98-107); Glucose 88 mg/dL (74-106); Magnesium 2.2 mg/dL (1.8-2.4); Potassium 3.5 mmol/L (3.5-5.1); Sodium 141 mmol/L (136-145)
[2021-05-05 17:50] LABS: Beta-Hydroxybutyrate <0.1 mmol/L (<0.4)
[2021-05-09 12:59] LABS: C-Peptide 2.8 ng/mL (1.1 - 4.4)
[2021-05-10 15:48] LABS: Proinsulin, P 10 pmol/L (3.6-22)
[2021-05-12 09:49] LABS: Insulin 6.8 uIU/mL (<29.0)
== END 2021-05-05 02:59 | disposition home or self-care (01) ==
PROVIDERS: PCP Student in an Organized Health Care Education/Training Program; Visit Provider Physician Assistant
DX: E83.42 Hypomagnesemia (principal); E87.6 Hypokalemia; I95.9 Hypotension, unspecified; Z98.84 Bariatric surgery status; K91.1 Postgastric surgery syndromes
CPT/HCPCS: 36415; 80048; 82010; 83525; 83735; 84206; 84681

== ENCOUNTER 2021-06-01 00:34 | Outpatient (CLI) | payer OTHER, SELFPAY ==
--- NOTE | 2021-06-01 15:30 | DI.MAMMO_ITS ---
Exam(s) MAMMO SCREENING EXAM: MAMMO SCREENING CLINICAL HISTORY: screening TECHNIQUE: Mammograms were interpreted according to the usual protocol including computer analysis w [employer] CAD system, tomosynthesis and C-view imaging. COMPARISON: FINDINGS: The breasts are heterogeneously dense. No dominant mass or clumped microcalcification is identified in either breast. The current examination is compared with multiple previous examinations including May 2020 and there has been no gross interval change in appearance in comparison with the prior studies. IMPRESSION: No specific evidence of malignancy at this time. Routine screening examinations are suggested at yea rly intervals in this age group according to the ACS ACR guidelines. BI-RADS Category 1 - Negative Breast Density - Category C - Heterogeneously dense
== END 2021-06-01 00:54 ==
PROVIDERS: PCP Student in an Organized Health Care Education/Training Program; Visit Provider Nurse Practitioner Women's Health
DX: Z12.31 Encounter for screening mammogram for malignant neoplasm of breast (principal); R92.8 Other abnormal and inconclusive findings on diagnostic imaging of breast
CPT/HCPCS: 77063; 77067

== ENCOUNTER 2021-07-14 12:50 | Outpatient (RCR) | payer OTHER, SELFPAY ==
[2021-07-14 13:25] LABS: Glucose 77 mg/dL (74-106)
[2021-07-15 17:05] LABS: Beta-Hydroxybutyrate <0.1 mmol/L (<0.4)
[2021-07-16 15:42] LABS: C-Peptide 2.6 ng/mL (1.1 - 4.4)
[2021-07-18 13:09] LABS: Insulin, Total 3.7 mcIU/mL (2.6 - 24.9)
[2021-07-19 16:08] LABS: Proinsulin, P 20 pmol/L (3.6-22)
== END 2021-07-30 23:59 | disposition home or self-care (01) ==
LOC: INF 12:50
PROVIDERS: PCP Student in an Organized Health Care Education/Training Program; Visit Provider Physician Assistant
DX: E16.2 Hypoglycemia, unspecified (principal)
CPT/HCPCS: 36415; 82947; 83525; 83527; 82010; 84206; 84681

== ENCOUNTER 2021-07-22 09:39 | Outpatient (REF) | payer OTHER, SELFPAY | END 2021-07-22 09:40 | disposition home or self-care (01) | LOC: LBN 09:39 | PROVIDERS: PCP Student in an Organized Health Care Education/Training Program; Visit Provider Student in an Organized Health Care Education/Training Program | DX: L08.89 Other specified local infections of the skin and subcutaneous tissue (principal) | CPT/HCPCS: 87077; 87070; 87186 ==

== ENCOUNTER 2021-08-08 07:32 | Outpatient (CLI) | payer OTHER, SELFPAY ==
[2021-08-08 16:50] LABS: ALT 35 U/L (14-59); AST 25 U/L (15-37); Albumin 3.6 g/dL (3.4-5.0); Alkaline Phosphatase 68 U/L (46-116); BUN 13 mg/dL (7-18); Bilirubin, Total 0.5 mg/dL (0.2-1.0); CREATININE 0.9 mg/dL (0.55-1.02); Chloride 99 mmol/L (98-107); Glucose 87 mg/dL (74-106); Potassium 3.6 mmol/L (3.5-5.1); Sodium 138 mmol/L (136-145); Total Protein 6.8 g/dL (6.4-8.2)
== END 2021-08-08 07:33 | disposition home or self-care (01) ==
LOC: LBO 07:39
PROVIDERS: PCP Student in an Organized Health Care Education/Training Program; Visit Provider Student in an Organized Health Care Education/Training Program
DX: J02.9 Acute pharyngitis, unspecified (principal); E87.8 Other disorders of electrolyte and fluid balance, not elsewhere classified
CPT/HCPCS: 80053; 86308

== ENCOUNTER 2021-08-17 02:45 | Outpatient (CLI) | payer OTHER, SELFPAY ==
[2021-08-17 14:28] LABS: CREATININE 0.8 mg/dL (0.55-1.02)
== END 2021-08-17 02:46 | disposition home or self-care (01) ==
LOC: LBO 02:45
PROVIDERS: PCP Student in an Organized Health Care Education/Training Program; Visit Provider Obstetrics & Gynecology Gynecology
DX: Z01.812 Encounter for preprocedural laboratory examination (principal); D25.9 Leiomyoma of uterus, unspecified; R10.2 Pelvic and perineal pain
CPT/HCPCS: 36415; 82565

== ENCOUNTER 2021-08-22 11:37 | Outpatient (CLI) | payer OTHER, SELFPAY ==
[2021-08-22 14:13] LABS: CREATININE 1.1 mg/dL (0.55-1.02); Estimated GFR 52.36 (mL/min/1.73m2)
== END 2021-08-22 11:38 | disposition home or self-care (01) ==
LOC: LBO 11:39
PROVIDERS: PCP Student in an Organized Health Care Education/Training Program; Visit Provider Obstetrics & Gynecology Gynecology
DX: R10.2 Pelvic and perineal pain (principal)
CPT/HCPCS: 36415; 82565

== ENCOUNTER → 2021-08-25 02:07 | Outpatient (CLI) | payer OTHER, SELFPAY ==
--- NOTE | 2021-08-25 07:00 | DI.MRI_ITS ---
Exam(s) MR PELVIS WO/W EXAM: MR PELVIS WO/W CLINICAL HISTORY: Enlarged uterus prevents good visualization w/ us TECHNIQUE: Multiplanar multisequence MRI of the pelvis was performed. CONTRAST MATERIAL: IV Contrast: 16 ML of Dotarem contrast administered. COMPARISON: CT CT ABDOMEN PELVIS WO/W from 09/20/[address] ABDOMEN/RENAL CTA from 10/30/2018 FINDINGS: Uterus: The uterus is enlarged with several myometrial masses present. The largest is in the posteri or body and measures 2.8 x 2.3 cm. The findings are consistent with uterine fibroids. The endometri al stripe is unremarkable.Cervical nabothian cysts are present. The largest measures 1 cm. Ovaries: The left ovary measures 4.6 x 2.3 cm. Follicular cysts are present. The largest measures 2 .5 x 2.1 cm. The right ovary measures at least 5.1 x 3.2 cm. There is a 4.4 x 2.9 cm simple cyst on the right ovary. Bowel: There is diverticulosis seen in the sigmoid colon, but no evidence of acute diverticulitis. Urinary bladder: Unremarkable. Bones: Mild degenerative changes seen in the lower lumbar spine. Enhancement: No suspicious abnormal enhancement is identified. IMPRESSION: 1. Enlarged fibroid uterus. 2. Bilateral ovarian cysts. There is a 4.4 x 2.9 cm simple cyst on the right ovary. Please correlat e with the patient's menopausal status. DATA REPOSITORY:
[2021-08-25] MEDS: Gadoterate meglumine 20 ML VIAL IVP (09:33)
[2021-08-25] MEDS: Normal Saline Flush 10 ML SYR IVP (09:39)
== END ==
PROVIDERS: PCP Student in an Organized Health Care Education/Training Program; Visit Provider Obstetrics & Gynecology Gynecology
DX: N85.2 Hypertrophy of uterus (principal); D25.9 Leiomyoma of uterus, unspecified; N94.6 Dysmenorrhea, unspecified; R10.2 Pelvic and perineal pain; N83.291 Other ovarian cyst, right side; N83.292 Other ovarian cyst, left side
CPT/HCPCS: 72197

== ENCOUNTER → 2021-09-22 02:06 | Outpatient (CLI) | payer OTHER, SELFPAY ==
--- NOTE | 2021-09-22 07:30 | DI.US_ITS ---
Exam(s) US PELVIS TRANSVAGINAL EXAM: US PELVIS TRANSVAGINAL CLINICAL HISTORY: hx fibroids, enlarged uterus, back pain, pain female pelvis TECHNIQUE: Transabdominal and transvaginal imaging was performed using standard protocol. COMPARISON: MR MR PELVIS WO/W from 08/25/2021 FINDINGS: KIDNEYS: Kidneys are symmetric in size. No evidence of renal calculi. No evidence of hydronephrosis. No renal mass or cyst identified. UTERUS: Enlarged with innumerable fibroids, measuring 11.1 x 6.5 x 7.9 cm. Largest fibroid approximately 3 cm. Endometrium: Not well seen. Cervix: Nabothian cysts. OVARIES: Right: Cyst or mass: None. Left: Cyst or mass: None. DOPPLER: Color: Symmetric and uniform flow to both ovaries. No hyperemia. . CUL-DE-SAC: Free fluid: None. IMPRESSION: 1. Enlarged fibroid uterus.. Endometrium not well seen. 2. Unremarkable bilateral ovaries. Cysts seen on MRI are no longer seen on today's ultrasound. DATA REPOSITORY:
== END ==
PROVIDERS: PCP Student in an Organized Health Care Education/Training Program; Visit Provider Nurse Practitioner Women's Health
DX: R10.2 Pelvic and perineal pain (principal); D25.9 Leiomyoma of uterus, unspecified; N85.2 Hypertrophy of uterus
CPT/HCPCS: 76830; 76856

== ENCOUNTER 2021-10-26 11:01 | Outpatient (REF) | payer OTHER, SELFPAY ==
[2021-10-28 00:39] LABS: COVID-19 RT-PCR UVMMC Result Positive (Negative)
== END 2021-10-26 11:02 | disposition home or self-care (01) ==
LOC: LBN 11:01
PROVIDERS: PCP Student in an Organized Health Care Education/Training Program; Visit Provider Student in an Organized Health Care Education/Training Program
DX: R50.9 Fever, unspecified (principal); R68.89 Other general symptoms and signs; Z20.822 Contact with and (suspected) exposure to COVID-19
CPT/HCPCS: 87449; U0003

== ENCOUNTER 2021-12-12 11:52 | Outpatient (RCR) | payer OTHER, SELFPAY ==
[2021-12-12 12:23] LABS: Glucose 77 mg/dL (74-106)
[2021-12-12 21:49] LABS: Beta-Hydroxybutyrate <0.1 mmol/L (<0.4)
[2021-12-13 17:41] LABS: C-Peptide 2.6 ng/mL (1.1 - 4.4)
[2021-12-14 11:41] LABS: Insulin, Free 6.8 mcIU/mL (2.6 - 24.9); Insulin, Total 6.4 mcIU/mL (2.6 - 24.9)
[2021-12-15 09:44] LABS: Insulin 5.4 uIU/mL (<29.0)
[2021-12-16 15:44] LABS: Proinsulin, P 13 pmol/L (3.6-22)
== END 2021-12-30 23:59 | disposition home or self-care (01) ==
LOC: INF 11:52
PROVIDERS: PCP Student in an Organized Health Care Education/Training Program; Visit Provider Student in an Organized Health Care Education/Training Program
DX: E16.2 Hypoglycemia, unspecified (principal); E11.69 Type 2 diabetes mellitus with other specified complication; E66.9 Obesity, unspecified
CPT/HCPCS: 36415; 82947; 83525; 83527; 82010; 84206; 84681

== ENCOUNTER 2022-01-31 10:06 | Outpatient (REF) | payer OTHER, SELFPAY ==
[2022-02-01 19:37] LABS: COVID-19 RT-PCR UVMMC Result Negative (Negative)
== END 2022-01-31 10:07 | disposition home or self-care (01) ==
LOC: LBN 10:06
PROVIDERS: Nurse Practitioner; PCP Student in an Organized Health Care Education/Training Program; Visit Provider Student in an Organized Health Care Education/Training Program
DX: J02.9 Acute pharyngitis, unspecified; Z20.822 Contact with and (suspected) exposure to COVID-19
CPT/HCPCS: 86710; U0003; 87070

== ENCOUNTER 2022-02-01 16:50 | Outpatient (REF) | payer OTHER, SELFPAY ==
[2022-02-04 07:34] LABS: Influenza A RNA Result Negative (Negative); Influenza B RNA Result Negative (Negative); RSV RNA Result Negative (Negative)
== END 2022-02-01 16:51 | disposition home or self-care (01) ==
LOC: LBN 16:50
PROVIDERS: PCP Student in an Organized Health Care Education/Training Program; Visit Provider Nurse Practitioner
DX: R50.9 Fever, unspecified (principal)
CPT/HCPCS: 87631; 87637

== ENCOUNTER 2022-02-03 02:26 | Outpatient (CLI) | payer OTHER, SELFPAY ==
--- OUTSIDE RECORDS SUMMARY | 2022-02-03 02:28 | XMS_ITS | Encounter Summary ---
:1970 Author Organization [facility] [place] [address] Care Team Providers Name Role Phone Huyen Ramon DO Primary Care Provider Reason for Visit Consultation (Routine) - Closed Specialty Diagnoses / Procedures Referred By Contact Refer red To Contact Endocrinology Diagnoses S/P bariatric surgery Post-resection malabsorption Hypoglycemia Rylie Rea, [facility]ocrinology 3b DATA INTEGRATION DEVELOPER [place] [address] [place] [address] Referral ID Status Reason Start Date Expiration Date Visits V isits Requested Authorized [id number] Closed Consult, 04/04/2021 04/04/2022 1 1 Test & Treat Encounter Details Date Type Department Care Team Description 04/12/2021 TH Visit Endocrinology at [facility] C Rowe, Maryanne Dumping syndrome; (TeleHealth) [facility] [place] [address] CENTER [phone] ENDOCRINOLOGY [place], [place] [address] Social History Tobacco Use Types Packs/Day Years Used Date Never Smoker Smokeless Tobacco: Never Used Alcohol Use Standard Drinks/Week Comments No 0 (1 standard drink = 0.6 oz pure alcoho l) Sex Assigned at Date Recorded Not on file documented as of this encounter Patient Instructions Patient InstructionsMaryanne Mendieta PA - 04/12/2021 2:00 PM EST 1. Send sharing information for Dexcom. 2. Will consult with physician and contact you with plan. 3. Labs to be sent to [facility]. 4. Follow up to be determined. documented in this encounter Progress Notes Maryanne Mendieta PA - 04/12/2021 2:00 PM EST Images from the original note were not included. Endocrinology Clinic Visit Date: 04/12/2021 Telehealth Documentation Due to the COVID-19 pandemic a scheduled office visit was converted to a telemedicine visit (video available). The patient provided consent for this telehealth encounter and understands standard billing practices apply. Duration of call: 35 minutes Location of patient: [place], [place] Location of provider: [place], [place] Reason for Visit: Unexplained hypoglycemia HISTORY OF PRESENT ILLNESS: Ms. Monisha Das is a 50 y.o. year old female with PMH significant for Marylou's thyroiditis,HTN, mild T2DM 1.5yrs ago, h/o bariatric surgery done November 2019 with resulting weight loss of 102-105 pounds. She has been seen 2x in the past in our department for other endocrine concerns. Pt says that in the past few months she's been having significant hypoglycemia. Started ~4mo ago. 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 Says thatlow BG episodes are occurring almost daily and when they occur it's difficult to get her glucose levels back to normal, feels like it's up and down all day long. Feels symptoms--slurred speech, sweating, face/legs get numb, can't keep eyes open which starts when glucose levels are in the high 50's-low60's. Prior to starting CGM would check BG when symptomatic and found readings as low as 48-50. Now with CGM is correcting to avoid going so low. Says that episodes don't occur when fasting. The most problematic time is with exercise--she gets very low by the end of a workout, sometimes 2 hours after exercise. Finds that if she walks in the AM before eating, then it doesn't happen. Has had episodes overnight, but not as often (wakes up d/t symptoms). Episodes worse with higher carb meals. Hates that she has to eat to treat symptoms, doesn't want to gain weight back that she lost. Diet history: B: Oatmeal with peanut butter (cooked rolled oats, not package), coffee with 1 Tbsp of sweetened creamer L: Chicken salad on greens with oil and vinegar D: Chicken thighs in homemade BBQ sauce, 1/4 cup of white rice Snack: string cheese, meat stick, vegetables with hummus Drink: coffee, water Of note pt reports that her menses are more irregular, either Q2.5 weeks or Q2mo. Had a positive thyroid antibody test in 2019. Her only food sensitivity is cantelope, no signs of celiac. PAST MEDICAL HISTORY: Patient Active Problem List Diagnosis Date Noted ??? Morbid obesity 11/28/2019 ??? Neural foraminal stenosis of cervical spine 08/12/2019 ??? Lymphedema 07/23/2019 ??? Bunion 07/23/2019 ??? Edema of lower extremity 07/23/2019 ??? Flash pulmonary edema 07/23/2019 ??? Hypomagnesemia 07/23/2019 ??? Steatosis of liver 07/23/2019 ??? Class 3 severe obesity due to excess calories with serious comorbidity and body mass index (BMI)of 45.0 to 49.9 in adult 07/23/2019 ??? Type 2 diabetes mellitus without complication, without long-term current use of insulin 07/23/2019 ??? History of surgical procedure 07/23/2019 ??? Sensorineural hearing loss (SNHL) of both ears 11/01/2017 ??? Hypokalemia 11/07/2016 ??? Nontraumatic tear of rotator cuff 05/31/2016 ??? Diarrhea 10/29/2015 ??? Gastroesophageal reflux disease with esophagitis 07/07/2015 ??? Serrated adenoma of colon 07/07/2015 ??? Restless legs syndrome 03/31/2015 ??? Essential hypertension 12/05/2012 ??? Calculus of kidney 02/27/2012 ??? Classical migraine with intractable migraine 09/05/2011 ??? Alopecia areata 05/23/2011 ??? Depressive disorder 05/23/2011 MEDICATIONS: Medications 04/13/21 1438 Medication Sig Taking? venlafaxine (EFFEXOR) 75 mg Tablet 75 mg 2 times daily. Yes buPROPion XL (Wellbutrin XL) 300 mg Tablet Extended Release 24 hr Take 1 tablet by mouth every morning. Yes hydroCHLOROthiazide (Hydrodiuril) 25 mg Tablet Take 1 tablet by mouth 2 times daily. Yes aMILoride (Midamor) 5 mg Tablet Take 5 mg by mouth 2 times daily. Yes carvedilol (COREG) 25 mg Tablet daily. Yes hydrocortisone 2.5 % Cream as needed. Yes multivitamin (THERAGRAN) Tablet Take 1 tablet by mouth daily. Yes gabapentin (NEURONTIN) 300 mg Capsule 800mg BID Yes omeprazole (PRILOSEC) 40 mg Capsule, Delayed Release(E.C.) Take 40 mg by mouth daily. Yes ALLERGIES: Allergies Allergen Reactions ??? Atropine CIS - redness and bodily swelling ??? Eplerenone ??? Iron Shortness Of Breath Experienced swelling and shortness of breath after an infusion. This was dose related and she has had infusions since without issue. ??? 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 to , previously had a , has 4 kids. FAMILY HISTORY: Family History Relation Problem Age of Onset ??? Daughter Asthma ROS: Constitutional: Denies fever, fatigue, insomnia, +recent weight loss s/p bariatric surgery Endocrine: Denies increased thirst or urination Cardiovascular: Denies recent chest pain, heart palpitations Respiratory: Denies shortness of breath at rest GI: Denies diarrhea, constipation : Denies frequent/recent urinary tract infections Neurological: Denies headaches, dizziness, tremors Psych: Denies SI, +anxiety, + depression PHYSICAL EXAM: Deferred d/t telehealth. Pt appeared in NAD on video. LABS: ASSESSMENT/PLAN: Monisha Das is a 50 y.o. female with a PMH of Marylou's thyroiditis, HTN, mild T2DM 1.5yrs ago, h/o bariatric surgery done November 2019 with resulting weight loss of 102-105 pounds. She is experiencing ~4mo of hypoglycemia that appears connected to eating and exercise and is concerned about having to constantly eat to treat symptoms as she does not want to gain back the weight she lost. She iscurrently using a CGM with alarms and is treating when the low alarm alerts her to avoid going lower. After the visit I consulted with Dr. Ed Ruiz regarding pt's symptoms and management. She indicated that pt's symptoms consistent with dumping syndrome d/t bariatric surgery and also she may still have hyperplastic beta cells from her period of time of being in the mild diabetes range (6.5% on 10/01/2019). At this point when BG is <54 it is pathologic, above that is physiologic and within normal for someone who is completely in the normal range for diabetes, as evidenced by A1C 3mo ago of 5.4%. 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 Treatment in the meantime is more frequent, low carb meals. Also noted is the CGM is for use with DM and not in hypoglycemia in a non-diabetic patient as it's normal to have lows even down to 60 for someone without DM. I called the patient to relay this message and she said that her bariatric surgery provider was concerned about the episodes post-exercise. Agreed to do labs if/when BG is low and will have her f/u with one of our endocrine fellows. This was a 35 minute visit spent via telehealth with patient discussing symptoms of hypoglycemia andproviding education including but not limited to information in history and plan. An additional 20 minutes was spent reviewing previous notes and labs, in care coordination, ordering labs & completing documentation. I have reviewed the plan outlined above with the patient and the patient has verbalized understanding. Maryanne Mendieta PA-C Department of Endocrinology [facility] documented in this encounter Plan of Treatment Upcoming Encounters Date Type Specialty Care Team Description 02/08/2022 TH Visit (TeleHealth) General Surgery Rylie Rea, DATA INTEGRATION DEVELOPER [facility] [address] [facility] [place] [address] documented as of this encounter Goals Goal Patient Goal Associated Recent Patient-Stated? Author Type Problems Progress increase Lifestyle On track No Ayala active ilia (08/29/2019 Linda Arcos, goal 10:03 AM EDT) Note: Formatting of this note might be d ifferent from the original. From 20 minutes to 30 potential eating Lifestyle On track (08/29/2019 No Linda Cai MD schedule 10:03 AM EDT) Note: Formatting of this note might be d ifferent from the original. Ideally eating hours would look more lik e 10-6 or 11-7- just keeping the 8 hour eating window even if it's 12-8p Stop eating after supper Continue 2 x 24 hour fasts a week reach out with questions or concerns as needed Other (Enter personal goal) Lifestyle No Linda Cai MD Note: Formatting of this note might be d ifferent from the original. Do resistance exercise with bands or jesus alberto ghts starting with twice weekly, 5 to 10 minutes per time. Other (Enter personal Lifestyle On track (08/29/2019 No Linda Cai MD goal) 10:03 AM EDT) Note: Formatting of this note might be d ifferent from the original. Tracking with fit bit beverage practice Lifestyle On track (08/29/2019 10:03 No Sandy Russo, RD AM EDT) Note: Formatting of this note might be d ifferent from the original. - Continue eating and drinkin g by full 30 minutes - Keep up the great work sipping vs. Gul ping - aim to increase hydrating beverages to at least 64 ounces, especially on fast days (could try a NUUN tablet electrolyte rep lenishment on a day when sweating a lot) - set a reminder on watch - consider a water bottle that has times or similar- consider temperature Other (Enter personal goal) Lifestyle Yes Z-Naseem Patricia Note: Formatting of this note might be d ifferent from the original. Interested in trying Mindfulness/Relaxat ion routines before bedtime at least once a week. protein any time you're eating Lifestyle No Sandy Russo RD Note: Formatting of this note might be d ifferent from the original. Pair fruits with dairy/nuts or other pro teins Aim to think more about the food groups and gather information about what's working now instead of necessarily needing to be at a particular calorie number right now documented as of this encounter Visit Diagnoses Diagnosis Dumping syndrome Postgastric surgery syndromes Hypoglycemia Hypoglycemia, unspecified documented in this encounter Care Teams Briquetter Operator Relationship Specialty Start Date End Date Huyen Ramon DO PCP - General Family Medicine 04/05/[address] [place] [address] documented as of this encounter
--- OUTSIDE RECORDS SUMMARY | 2022-02-03 02:28 | XMS_ITS | Encounter Summary ---
:1970 Author Organization [facility] Address [place] [address] Care Team Providers Name Role Phone Huyen Ramon DO Primary Care Provider Reason for Referral Consultation (Routine) - Closed Specialty Diagnoses / Procedures Referred By Contact Refer red To Contact Endocrinology Diagnoses S/P bariatric surgery Post-resection malabsorption Hypoglycemia Rylie Rea, [facility] [place]ocrinology 3b TEXTILE CONVERTER [address] [facility] [place] [address] [place] [address] Referral ID Status Reason Start Date Expiration Date Visits V isits Requested Authorized [id number] Closed Consult, 04/04/2021 04/04/2022 1 1 Test & Treat Encounter Details Date Type Department Care Team Description 04/04/2021 Orders Only General Surgery at Rylie Rea S/P bariatric surgery; [facility] [place] [place] Post-resection malabsorption; [facility] [address] [place], [place], [place] [phone] Social History Tobacco Use Types Packs/Day Years Used Date Never Smoker Smokeless Tobacco: Never Used Alcohol Use Standard Drinks/Week Comments No 0 (1 standard drink = 0.6 oz pure alcoho l) Sex Assigned at Date Recorded Not on file documented as of this encounter Plan of Treatment Upcoming Encounters Date Type Specialty Care Team Description 02/08/2022 TH Visit (TeleHealth) General Surgery Rylie Rea, TEXTILE CONVERTER [facility] [place] [address] Keiry Chatterjee, RD [facility] [place] [address] Scheduled Referrals Name Type Priority Associated Order Schedule Diagnoses Referral to Outpatient Referral Routine S/P bariatric Ordered : Endocrinology surgery 04/04/2021 Post-resection malabsorption Hypoglycemia documented as of this encounter Goals Goal Patient Goal Associated Recent Patient-Stated? Author Type Problems Progress increase Lifestyle On track No Ayala active ilia (08/29/2019 Linda Arcos goal 10:03 AM EDT) Note: Formatting of [...] temperature Other (Enter personal goal) Lifestyle Yes Mark-Naseem Patricia Note: Formatting of this note might [...] as of this encounter Visit Diagnoses Diagnosis S/P bariatric surgery Bariatric surgery status Post-resection malabsorption Other and unspecified postsurgical nonab sorption Hypoglycemia Hypoglycemia, unspecified documented in this encounter Care Teams Box Machine Operator Relationship Specialty Start Date End Date Huyen Ramon DO PCP - General Family Medicine 04/05/[address] [place] [address] documented as of this encounter
--- OUTSIDE RECORDS SUMMARY | 2022-02-03 02:28 | XMS_ITS | Encounter Summary ---
:1970 Author Organization [facility] [place] [address] Care Team Providers Name Role Phone Tristen Huyenjenna Tucker DO Primary Care Provider Encounter Details Date Type Department Care Team Description 04/12/2020 Hospital [place] [address] Social History Tobacco Use Types Packs/Day Years Used Date Never Smoker Smokeless Tobacco: Never Used Alcohol Use Standard Drinks/Week Comments No 0 (1 standard drink = 0.6 oz pure alcoho l) Sex Assigned at Date Recorded Not on file documented as of this encounter Medications at Time of Discharge Medication Sig Dispensed Refills Start Date End Date buPROPion XL (Wellbutrin Take 1 tablet by 30 tablet 3 11/29 XL) 300 mg Tablet Extended mouth every Release 24 hr morning. hydroCHLOROthiazide Take 1 tablet by 0 10/04/2019 (Hydrodiuril) 25 mg Tablet mouth 2 times daily. aMILoride (Midamor) 5 mg Take 5 mg by 0 Tablet mouth 2 times daily. carvedilol (COREG) 25 mg daily. 0 02/26/2019 Tablet hydrocortisone 2.5 % Cream as needed. 0 9 multivitamin (THERAGRAN) Take 1 tablet by 0 Tablet mouth daily. gabapentin (NEURONTIN) 300 800mg BID 0 5 mg Capsule omeprazole (PRILOSEC) 40 mg Take 40 mg by 0 Capsule, Delayed mouth daily. Release(E.C.) venlafaxine (EFFEXOR) 75 mg Take 75 mg by 0 12/28/2020 Tablet mouth 3 times daily. ursodioL (Actigall) 300 mg Take 1 capsule by 60 capsule 5 06/10/2020 Capsule mouth 2 times daily for 180 days. acetaminophen (Tylenol) 650 Take 20.3 mLs by 0 04/12/2021 mg/20.3 mL Solution mouth every 4 hours as needed (Mild pain 1-3). cholecalciferol, Vitamin Take by mouth. 0 12/28/2020 D3, (cholecalciferol, Vitamin D3,) 50 mcg (2,000 unit) Capsule metFORMIN XR (Glucophage One tab twice 120 tablet 3 10/04/19 20 12/28/2020 XR) 500 mg Tablet Sustained daily. Release 24 hr Loperamide (IMODIUM) 1 Take 2 mg by 0 12/28/2020 mg/7.5 mL Liquid mouth. EPINEPHrine 0.3 mg/0.3 mL Inject 0.3 mg 0 04/12/2021 Auto-Injector into the muscle once as needed (allergic reaction( difficulty breathing, throat swelling, lightheaded)). Inject 0.3 mL IM once as needed for allergic reaction (Throat tight, difficulty breathing). Call 911 as directed. potassium chloride Take 40 mEq by 0 (K-DUR/KLOR-CON) 20 mEq Tab mouth 2 times Sust.Rel. Particle/Crystal daily. ondansetron (ZOFRAN) 4 mg Take 4 mg by 0 12/28/2020 Tablet mouth every 8 hours as needed for Nausea. pramipexole (MIRAPEX) 0.25 Take 0.25 mg by 0 12/28/2020 mg Tablet mouth daily. One tab pm/ 2 tabs qhs lisinopril Take 20 mg by 0 12/28/2020 (PRINIVIL;ZESTRIL) 20 mg mouth daily. Tablet Reported on 06/15/2016 triamcinolone (ARISTOCORT) Apply topically 0 12/28/2020 0.5 % Cream as needed. documented as of this encounter Plan of Treatment Upcoming Encounters Date Type Specialty Care Team Description 02/08/2022 TH Visit (TeleHealth) General Surgery Rylie Rea, SHINGLE INSPECTOR [facility] [place] [address] [facility] [place] [address] documented as of this encounter Goals Goal Patient Goal Associated Recent Patient-Stated? Author Type Problems Progress increase Lifestyle On track No luba Cai (08/29/2019 Linda Arcos, goal 10:03 AM EDT) [...] week. protein any time you're eating Lifestyle Sandy Santana RD Note: Formatting of this note might be d ifferent from the original. Pair fruits with dairy/nuts or other pro teins Aim to think more about the food groups and gather information about what's working now instead of necessarily needing to be at a particular calorie number right now documented as of this encounter Procedures Procedure Name Priority Date/Time Associated Diagnosis Comme nts COVID-19 PCR Routine 04/12/2020 12:20 PM Results for this EST procedure are i n the results section . documented in this encounter Results COVID-19 PCR (04/12/2020 12:20 PM EST) [facility] Method Time Signature SARS-CoV-2 Not Detected Not Detected [facility] Comment: This result should be interpreted in com bination with the clinical observations, patient history and epidem iological information in making a final diagnosis. For testing of asymptomatic i ndividuals, assay performance characteristics and clinical utility hav e not been evaluated. Testing for SARS-CoV-2 (Severe acute respiratory syn drome coronavirus 2, formerly known as 2019 novel coronavirus or 2019-nCoV) to aid in the diagnosis of COVID-19 is performed using the [employer] Alinity m JEFF S-CoV-2 Assay as authorized by the FDA Emergency Use Authorization (EUA). This EUA assay is intended for In-vitro Diagnostic (IVD) use with respiratory sp ecimens such as nasopharyngeal swabs collected from individuals during the ac eric phase of infection. This assay is performed based on the instructions for use provided by [employer] and additional guidance provided by CDC and FDA. Testing is performed in the [facility] y Laboratory within the Department of Pathology and Laboratory Medicine at [facility], certified under the Clinical Laboratory Improvement Amendments of 1988 (CLIA), 42 U.S.C. 263a, to perform high complexi ty tests. Assay performance has been verified according to clinical laborator y regulatory requirements for use with specimens collected from individuals keisha pected of COVID-19. Test results are provided above. A result of ? Not Detected? indicates that the viral RNA target is not present above the limit of detect ion, but does not preclude SARS-CoV-2 infection. False negative results may oc cur if a specimen is improperly collected, transported or handled; if am plification inhibitors are present; or if inadequate numbers of viral particles are present in the specimen. When a diagnostic test is negative, the possibi lity of a false negative result should be considered in the context of a patien t? s recent exposures and the presence of clinical signs and symptoms consisten t with COVID-19. A result of ? Detected? indicates that RNA from SARS-CoV-2 was d etected and the patient is infected. As required or requested by [facility], positive specimens may be sent for additional testing. Positive an d negative predictive values for this test are highly dependent on disease pre valence. A result of ? Invalid? indicates that neither the viral RNA tar gets nor the internal control target was detected. An invalid result suggests the presence of inhibitors. Recollection and re-testing is recommend ed in the case of an invalid result. CDC COVID-19 criteria for testing on hum an specimens and clinical management guidance information are available at [facility] CDC Coronavirus Disease 2019 (COVID-19) webpage under ? Information for Healthcare Professionals? (https://www.cdc.gov/coronavirus/2019-nc ov/hcp/index.html) Additional information about this and ot her EUA tests can be found in provider and patient fact sheets at the following FDA website: https://www.fda.gov/medical-devices/djugvcducmw-xoweyjk-5144-hbyea-66-crnyqshrt- kwo-msacmgcghowvvj-ecxmwms-devices/lryqk-oyannuyxyec-ruok SARS-Cov-2 RNA Source [employer] Swab [facility] Specimen (Source) Anatomical Collection Method Collection Time Re ceived Time Location / / Volume Laterality Nasopharyngeal swab Other / Unknown 04/12/2020 12:20 0 04/13/2020 (specimen) PM EST 2:15 AM EST Resulting Agency Comment Spec In Lab Nishi Nash APRN MICROBIOLOGY - GENERAL ORDER DAVIAN Performing Organization Address City/State/[place] [address] documented in this encounter Visit Diagnoses Not on filedocumented in this encounter Care Teams Rivet Machine Operator Relationship Specialty Start Date End Date Huyen Ramon DO PCP - General Family Medicine 04/05/[address] [place] [address] documented as of this encounter
--- OUTSIDE RECORDS SUMMARY | 2022-02-03 02:28 | XMS_ITS | Encounter Summary ---
:1970 Author Organization [facility] Address [address] [place] [address] Care Team Providers Name Role Phone Tristen Huyenjenna Tucker DO Primary Care Provider Encounter Details Date Type Department Care Team Description 11/22/2021 Orders Only General Surgery at Rylie Rea S/P bariatric surgery; [facility] M, FILAMENT WELDER Post-resection malabsorption; [facility] Dis order [place] [phone] [place] [address] [phone] Social History Tobacco Use Types Packs/Day Years Used Date Never Smoker Smokeless Tobacco: Never Used Alcohol Use Standard Drinks/Week Comments No 0 (1 standard drink = 0.6 oz pure alcoho l) Sex Assigned at Date Recorded Not on file documented as of this encounter Plan of Treatment Upcoming Encounters Date Type Specialty Care Team Description 02/08/2022 TH Visit (TeleHealth) General Surgery Rylie Rea M, FILAMENT WELDER [facility] [place] [address] Keiry Chatterjee, RD [facility] [place] [address] Scheduled Orders Name Type Priority Associated Diagnoses Order S chedule Bariatric Surgery Lab Routine S/P bariatric surgery Expected: 11/22/2021 Program External Lab Post-resection (Appr oximate), Orders malabsorption Expires: 02/22/2022 Disorder of iron metabolism documented as of this encounter Goals Goal [...] Lifestyle On track (08/29/2019 10:[address] AM EDT) Note: Formatting of this [...] malabsorption Other and unspecified postsurgical nonab sorption Disorder of iron metabolism Other disorders of iron metabolism documented in this encounter Care Teams Tow Operator Relationship Specialty Start Date End Date Huyen Ramon DO PCP - General Family Medicine 04/05/[address] [place] [address] documented as of this encounter
--- OUTSIDE RECORDS SUMMARY | 2022-02-03 02:28 | XMS_ITS | Clinical Summary ---
:1970 Author Organization [facility] Address [address] [place] [address] Care Team Providers Name Role Phone Tristen Huyenjenna Tucker DO Primary Care Provider Allergies Active Allergy Reactions Severity Noted Date Comments Atropine High CIS - redness a nd bodily swelling Eplerenone High 02/24/2019 Iron Shortness Of Breath High 02/24/2019 Experien natasha swelling and shortness of br eath after an infusion. This was dose related and she has had infusions since without issue. Spironolactone Rash 12/05/2017 Medications Medication Sig Dispensed Refills Start Date End Date Status omeprazole (PRILOSEC) 40 mg Take 40 mg by 0 Active Capsule, Delayed mouth daily. Release(E.C.) gabapentin (NEURONTIN) 300 800mg BID 0 03/02/2015 Active mg Capsule multivitamin (THERAGRAN) Take 1 tablet 0 Active Tablet by mouth daily. carvedilol (COREG) 25 mg daily. 0 02/26/2019 Active Tablet hydrocortisone 2.5 % Cream as needed. 0 03/05/2019 Active aMILoride (Midamor) 5 mg Take 5 mg by 0 Active Tablet mouth 2 times daily. hydroCHLOROthiazide Take 1 tablet 0 10/04/2019 Active (Hydrodiuril) 25 mg Tablet by mouth 2 times daily. buPROPion XL (Wellbutrin Take 1 tablet 30 tablet 3 11/30/2019 Active XL) 300 mg Tablet Extended by mouth Release 24 hr every morning. venlafaxine (EFFEXOR) 75 mg 75 mg 2 times 0 01/14/20 21 Active Tablet daily. Active Problems Problem Noted Date Morbid obesity 11/28/2019 Neural foraminal stenosis of cervical spine 08/12/2019 Lymphedema 07/23/2019 Bunion 07/23/2019 Edema of lower extremity 07/23/2019 Flash pulmonary edema 07/23/2019 Hypomagnesemia 07/23/2019 Steatosis of liver 07/23/2019 Class 3 severe obesity due to excess calories with ser ious comorbidity and 07/23/2019 body mass index (BMI) of 45.0 to 49.9 in adult Type 2 diabetes mellitus without complication, without long-term current 07/23/2019 use of insulin History of surgical procedure 07/23/2019 Overview: c section x 3 Endometrial ablation x 2 Tonsillectomy. Sensorineural hearing loss (SNHL) of both ears 018 Hypokalemia 11/07/2016 Nontraumatic tear of rotator cuff 05/31/2016 Diarrhea 10/29/2015 Gastroesophageal reflux disease with esophagitis 07/06 Serrated adenoma of colon 07/07/2015 Restless legs syndrome 03/31/2015 Essential hypertension 12/05/2012 Calculus of kidney 02/27/2012 Classical migraine with intractable migraine 2 Alopecia areata 05/23/2011 Depressive disorder 05/23/2011 Resolved Problems Problem Noted Date Resolved Date Sustained ventricular tachycardia 07/23/20192019 Impaired fasting glucose 02/11/2014 08/26/2019 Encounters Date Type Specialty Care Team Description 12/30/2021 Telephone General Surgery Rylie Rea APRN 11/22/2021 Orders Only General Surgery Rylie Rea, S/P bariatric surgery; CUSTODIAL ENGINEER Post-resection malabsorption; Disorder of iro n metabolism from Last 3 Months Family History Medical History Relation Comments Asthma Daughter Relation Status Comments Daughter Social History Tobacco Use Types Packs/Day Years Used Date Never Smoker Smokeless Tobacco: Never Used Alcohol Use Standard Drinks/Week Comments No 0 (1 standard drink = 0.6 oz pure alcoho l) Sex Assigned at Date Recorded Not on file Last Filed Vital Signs Vital Sign Reading Time Taken Comments Blood Pressure 131/92 12/28/2020 10:49 AM EDT Pulse 65 12/28/2020 10:49 AM EDT Temperature 36.7 ??C (98.1 ??F) 11/29/2019 11:15 AM EDT Respiratory Rate 18 12/28/2020 10:49 AM EDT Oxygen Saturation 100% 12/28/2020 10:49 AM EDT Inhaled Oxygen Concentration - - Weight 78.2 kg (172 lb 8 oz) 12/28/2020 10:49 AM EDT Height 163.8 cm (5' 4.5) 12/28/2020 10:49 AM EDT Body Mass Index 29.15 12/28/2020 10:49 AM EDT Plan of Treatment Upcoming Encounters Date Type Specialty Care Team Description 02/08/2022 TH Visit (TeleHealth) General Surgery Rylie Rea, CUSTODIAL ENGINEER [facility] [place] [address] Keiry Chatterjee, RD [facility] [place] [address] Health Maintenance Due Date Last Done Comments Covid-19 Vaccine (#1) 06/21/1970 Pneumococcal Vaccine: At-Risk 12/23/1975 5-64yrs (1 - PCV) DM Opthalmology Exam 12/23/1979 HIV screen 12/23/1987 Hepatitis C Screening 12/23/1987 Tdap adult 1988 Tetanus vaccine 1988 HPV test 12/23/1999 PAP Smear 12/23/1999 Breast Cancer Share Decision 2009 Needed DM Urine Microalbumin yearly 06/15/2017 06/15/2016 Breast Cancer screening 12/23/2019 Zoster vaccine (1 of 2) 12/23/2019 DM Hemoglobin A1c 6 month 06/27/2021 12/28/2020, 03/23/2020 , 10/01/2019, Additional history exists Influenza (Flu) vaccine (1 of 1 - 12/01/2021 Influenza standard series) DM Creatinine yearly 12/28/2021 12/28/2020, 03/23/2020, 11/29/2019, Additional history exists Lipid Screening 09/30/2024 10/01/2019 Colonoscopy 12/06/2027 12/05/2017, 12/05/2017 Goals Goal Patient Goal Associated Recent Patient-Stated? Author Type Problems Progress increase Lifestyle On track No Ayala, active ilia (08/29/2019 Linda Arcos, goal 10:03 [...] any time you're eating Lifestyle No Sandy Russo, SAM Note: Formatting of this note might be d ifferent from the original. Pair fruits with dairy/nuts or other pro teins Aim to think more about the food groups and gather information about what's working now instead of necessarily needing to be at a particular calorie number right now Insurance Payer Benefit Plan / Subscriber ID Effective Dates Phone Addre ss Type Group [employer] [id number] 2019-Presen [phone] [address] [facility] CARE t 5 [facility] [id number] HEALTH PLANS HEALTH PLANS [id number] 2020-Presen [phone] [id number] [place] [address] Advance Directives Latest Code Status on File Code Status Date Activated Date Inactivated Comments Attempt Cardiopulmonary Resuscitation - 11/28/2019 4:36 PM 020 5:30 PM Inpatient Code Status decision made by: Patient Care Teams Crew Trainer Relationship Specialty Start Date End Date Huyen Ramon DO PCP - General Family Medicine 04/05/[address] [place] [id number]
--- OUTSIDE RECORDS SUMMARY | 2022-02-03 02:28 | XMS_ITS | Encounter Summary ---
:1970 Author Organization [facility] [place] [address] Care Team Providers Name Role Phone Huyen Ramon Primary Care Provider Reason for Visit Reason Comments Follow-up Encounter Details Date Type Department Care Team Description 12/28/2020 Office Visit General Surgery at Quintin Rea, DIRECTOR STATISTICAL PROGRAMMING [facility] [place] [address] Post-resection malabsorption; [facility] Keiry Chatterjee, RD [facility] [place] [address] S/P bariatric surgery; [facility] Disorder [place] [address] Social History Tobacco Use Types Packs/Day Years Used Date Never Smoker Smokeless Tobacco: Never Used Alcohol Use Standard Drinks/Week Comments No 0 (1 standard drink = 0.6 oz pure alcoho l) Sex Assigned at Date Recorded Not on file documented as of this encounter Last Filed Vital Signs Vital Sign Reading Time Taken Comments Blood Pressure 131/92 12/28/2020 10:49 AM EDT Pulse 65 12/28/2020 10:49 AM EDT Temperature - - Respiratory Rate 18 12/28/2020 10:49 AM EDT Oxygen Saturation 100% 12/28/2020 10:49 AM EDT Inhaled Oxygen Concentration - - Weight 78.2 kg (172 lb 8 oz) 12/28/2020 10:49 AM EDT Height 163.8 cm (5' 4.5) 12/28/2020 10:49 AM EDT Body Mass Index 29.15 12/28/2020 10:49 AM EDT documented in this encounter Patient Instructions Patient InstructionsRylie Rea, DIRECTOR STATISTICAL PROGRAMMING - 12/28/2020 11:00 AM EDT [facility] clerical support Yolanda [phone] and Yadira [phone] Dietitians: [phone] Surgeons/ nurse practitioners: [phone] Nurse line: [phone] Dear Monisha, Please see your electronic medical record note from today for details we discussed at your visit. Below is some additional general information that you may find helpful. Testing: It would be helpful if you can have your lab work drawn a couple days before your visit at a [facility] facility so the results are available at the time of your follow up visit. If you have labworkdone by your primary health care assistant before that date, please have a copy sent to the Bariatric Surgery Program. Please call/send my message if you have not heard from us within 2 weeks of having labs work done. Here's the link to [facility] Lab hours and locations: [email or web address] Next visit: Follow up visits are done at 4 months and 12 months after surgery and yearly thereafter.Some patients are evaluated on a more frequent basis. Please call [phone] if you do not receivean appointment by 3-4 weeks prior to the expected visit. Vitamins/Nutrition/Activity Recommendations: Please see your visit note for personalized recommendations General Vitamin recommendations: ??? Multivitamins with minerals twice daily- needs to be an under 50 multivitamin that contains iron. ??? Vitamin B12 500 mcg by mouth once daily ??? Calcium citrate 500-600 mg with Vitamin D 400 units twice daily (600 mg in AM and 600 mg in PM- 2 pills twice a day) (or 1 chewable twice a day) ??? Iron supplement: as specified in today's visit ??? Vitamin D: as specified in today's visit General Nutrition recommendations: ?? 1,000-1,200 calories per day (300 calories per meal, 100 calories per snack, 1-2 snacks per day) ?? 60 grams of protein per day (20 grams per meal) ?? 48-64 oz of non-caloric and hydrating fluids per day (6-8, 8 oz cups) ?? Do not drink with meals- pushes food through more quickly, can cause upset stomach Activity: ??? Aim for 30 minutes of exercise daily, 5 days a week of both cardio and strength training exercises. Skinfold care: 1. Cleanse area with soap and water. 2. Blow dry area on low setting with gas plant technician. 3. Avoid excessive heat and/or sweating as friction and moisture can exacerbate disease. 4. Try OTC Dove clinical strength anti perspirant to affected areas nightly or an absorbent powder such as Gold Juarez and Desinex 5. Apply cotton strips (such as strips from old sheets) or larger size cotton underwear folded beneath skin folds to act as a wick. Do not apply geraldine cloth toweling which can cause further irritation 6. Try combination of over the counter hydrocortisone cream with over the counter antifungal cream such as lotrimin twice a day for 2 weeks. 7. If your symptoms do not improve you may require prescription of anti-fungal cream/powder. 8. Follow up with PCP if symptoms worsen/fail to improve with above strategies. Constipation: Increase fiber, fluids and fitness. Yerba Prima is a fiber supplement that comes in capsule form. Additionally, consider trying 1 capful daily of miralax daily (preferably at night) with a goal of at least 1 BM per day. You can increase the dose as needed every 2-3 days (by adding on 1 capful either morning or night) without safety concerns, noting that individual tolerance becomes limited by loose stools and bloating with doses higher than 2 capfuls twice daily. Please call if you do not have a BM after 3 days. On days with loose stools, we recommend reducing miralax to 1/2 capful daily but continue to take miralax every day Nausea: Common causes for nausea post bariatric surgery are: Eating too fast, eating too much, drinking with meals, or not chewing well enough. Be sure to eat slowly and chew food well. Take at least 30 minutes or more to eat a meal. Call if symptoms worsen, fail to improve, or if you have difficulty keeping food or fluid down. Alcohol: is not recommended for at least 6-12 months after surgery. Alcohol is absorbed much faster and stays in your system much longer post bariatric surgery and as a result there is an increase riskof alcohol misuse/abuse after bariatric surgery. It should be used sparingly, no more than one drinkper occasion, no more than 2 drinks a week. Alcohol is toxic to the liver, a source of empty calories, it can cause ulcers, vitamin and mineral deficiencies, as well as impair digestion and absorption of nutrients. Call or follow up with your therapist or primary care provider if you are struggling orthink your alcohol intake is a problem. control for women of child bearing age: is recommended for at least 18-24 months after surgery. f non-prescribed drugs and treet drugs is unsafe Anti-inflammatory medications such as Ibuprofen (Advil), Aleve (Naproxen), Excedrin, Liza-[place] should be used sparingly after gastric bypass, since they increase the risk of ulcer and bleeding. A bone mineral density scan (DEXA) is recommended every 2 years after bariatric surgery. Please schedule this study through your primary care providers office. Hair Loss: is associated with rapid weight loss and is seen approximately 3 to 6 months after surgery and can last 3 to 6 months. It is almost always temporary. Eating a healthy diet with 60 grams of protein per day and taking your multivitamin with minerals will help. Sleep Apnea: If you have a history of sleep apnea and have a CPAP/BiPAP, please be sure to follow upwith the sleep center to confirm your pressures and determine if continued use of CPAP/BiPAP is recommended. Potential lifetime risks of gastric bypass include risk of ulcer, which is increased with alcohol and antiinflammatory medications and internal hernia (less than 5%), which may be increased with higherthan predicted weight loss Potential lifetime risks of sleeve gastrectomy include developed heartburn or severe reflux Call us: ??? If you have concerns. ??? If you have unexplained abdominal pain. ??? if you see blood in your stool or vomit blood ??? If you have prolonged vomiting Post Surgery Support Group: Our post surgery support group meets at [facility] on the first Sunday of every month from 1:00 PM-2:00 PM. Nutrition and Activity apps- Baritastic, My Fitness Pal, Lose It, My Plate Internet resources: www.SeeJay www.Pow[employer] www.bariatriceating.[employer] www.[email or web address]/blog [facility] facebook page: [email or web address] Books & Magazines: - Recipes for Life After Weight Loss Surgery by Kassandra Carrasco - Shrink Yourself by Dr Jay Jay Levine - Eating Well - www.Bridge [employer] - Cooking Light- www.cookinglight.[employer] Anxiety: The Happiness Trap by Faustino Gallo The Mindfulness and acceptance workbook for anxiety By Blaine Simpson. Mindful eating: What are you Hungry For? By Mao Rodriguez The Mindful Diet by Shauna Truong and the [facility] group. Emotional eating: End Emotional Eating by Keiry Rondon Calming the Emotional Storm Christa Poole documented in this encounter Progress Notes Keiry Chatterjee RD - 12/28/2020 11:00 AM EDT Bariatric Surgery Program Nutrition Progress Note Encounter Type: follow up SUBJECTIVE: Topics Discussed/Patient Concerns: ?? Things are going well. No dietary concerns. ?? Losing about 2# per month. ?? Having hypogylcemia w exercise. BS: 52 and 49. Sometimes wakes up in the middle of the night withhypoglycemia as well. Has not tracked her evening eating patterns to see if there is a link b/t evening food choice and low BS. 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 ?? Social support:??Jayne, kids ?? Hobbies:??being active- wants to hike and kayak. Free time happily spent with family. ?? Vision at 2 years post-op:??able to do more active things outside of walking- hiking and kayaking. Not worrying about size when trying to do new things. More comfortable when traveling. Most importantly improved health. ?Goal weight: 160-165# ?? OBJECTIVE: ?? Date of Bariatric Surgery: 11/28/19 Type of Bariatric Surgery: Laparoscopic Nadia-en-Y Gastric Bypass ?? Weight History: Date Weight (lbs) HT BMI Comments?? 06/05/19 268# ? Highest Weight 06/05/19 268# ? Initial program weight 10/09/19 267.8# 64.5 45.3 1st pre-op visit 11/28/19?? 248.7#?? EWL % ?? Surgery ??12/15/19 229# 32%?? 38.7 1 month post-op ??03/23/20 ??195.5# ??60% 33.6 4 months post-op 12/28/20 172.5# 80% 29.2 1 year post-op [place] Body Weight (based on BMI of 25):??148# 30-70% Excess Weight Loss:??184-232#; 50% Excess Weight Loss:??208# ? MEDICATIONS: ?? Vitamin/Mineral Supplements (reported by patient): Supplement Type Brand/Form Dosage/Amount Frequency Comments Multivitamin Bariatric Fusion 1 pill 4 x daily ?? Calcium ? Vitamin B12 ? Iron ? Vitamin D3 ? Food Allergies/Intolerances: Some artificial sweeteners. Dry meat Tracking Intake: periodically tracks 24-Hour Intake: feel she needs to stick with the same animal protein during the day as it seems to be better tolerated. Recently went apple picking Breakfast Egg (1) AM Snack Lunch Salad and 3 oz turkey and shon dressing PM Snack Apple and 10 mini pretzels and 2 Tbs hummus Dinner Quechee salad w vinaigrette HS Snack Apple w PB Protein/ grams per day: ~60 g Hydrating fluids- oz/ day: 48+ oz water Soda: [place] on occasion ETOH: None since surgery . {/t sure was rare, maybe 4 x per year Caffeine: 1 c coffee daily w 1 Tbs sweetened creamer Sweets: Meals per day: 3 ?? Practices portion control: yes ?? Has had dumping syndrome: yes, ice cream (didn't even finish a kiddie). Sugar and fat together donot settle well. ?? In the past month, pt has vomited/regurgitated: no ?? Constipation/Diarrhea: somes a couple days without a BM. Will take dulcolax if needed- rare. Exercise: walking 45-60 minutes 4-5 x week. Sucks on a [place] Rancher x 3 while exercise to prevent hypoglycemia. Exercise after dinner. Doesn't happen when she is fasting. ASSESSMENT: Summary of Weight Loss: Monisha Das returns for routine follow-up at 1 year s/p surgery. Her excess weight loss is at 80%. She is tolerating the diet and is meeting protein and fluid goals. Continues to have hypoglycemia with exercise, unless she exercises fasting. Having a [place] Rancher during exercise prevents the lows. Meal p/t exercise is a mixed meal of protein, fat and carbohydrates. Will discuss hypoglycemia with DIRECTOR STATISTICAL PROGRAMMING. She continues to take the recommended supplements. She walks regularly. NUTRITION INTERVENTION & MONITORING: ?? Provided support/encouragement and reinforced importance of meeting nutritional goals. Continue current meal plan. ?? Reviewed vitamin and mineral supplement recommendations. ? Bariatric Fusion Chewable Complete 2 pills twice daily ?? Evaluation by nurse practitioner today. ?? Handouts provided: Bariatric Toolkit (revised 2020) Rylie Rea APRN - 12/28/2020 11:00 AM EDT [place] [address] Reason for visit: Bariatric Surgery follow up visit Subjective: Monisha Das is s/p laparoscopic Nadia-en-Y gastric bypass on 11/28/[address] Garcia, she presents today for 1yr post bariatric surgery follow up. She is doing better since her last visit. Tolerating food/fluids, better able to meet her nutrition/fluid goals daily. Continues to have some episodes of hypoglycemia. Tends to occur after exercising (will walk 45-60 minutes 5x week) Usually takes her walk after eating dinner. Reports her BS will drop to high 40s/low 50s. She has started having a hard candy(typically 3-5 jolly ranchers) during her walk to help prevent her blood sugars from dropping. She hasn't really been tracking her foods, but typically has a protein,veg and carb for dinner. Most often her carb is a bake potato. Her sx are weakness in legs, feels clammy, mental fogginess and feeling shaky. Reports sx do not occur if she eat the hard candy or if she walks on an empty stomach.No ETOH use. Occasional hypoglycemia in the middle of the night. She hasn't been tracking when the night time episodes occur. Current supplements: Taking Fusion-bariatric multivitamin two pills twice daily (which includes Vit B12 560 mcg, Vit D3 3,000 IU, Calcium 1200 mg, Iron 45mg daily) Interim Health: Recently dx with raynaud's. No bariatric related surgeries, hospitalizations, or ED visits since the last visit. No kidney stones or atraumatic fractures. Pt follows with PCP/specialist for disease management and age specific screening. Obesity related medical issues: ? Diabetes ??[x]?Yes, ??stopped metformin?[]?Not a baseline issue ? HTN: ?[x]?Yes, decreased her meds, taking 3 meds ? GERD: [x]?Yes, currently asymptomatic off PPI? Hyperlipidemia: [x]?Yes, not on meds o ALUREN: []?Yes, ??[x]?Not a baseline issue ? o Musculoskeletal issues: [x] Yes Improvement in mobility with wt loss/surgery [] Not a baseline issue o Other: [x] fatty liver Patient Active Problem List Diagnosis Code ??? Alopecia areata L63.9 ??? Lymphedema I89.0 ??? Bunion M21.619 ??? Calculus of kidney N20.0 ??? Classical migraine with intractable migraine G43.119 ??? Depressive disorder F32.9 ??? Diarrhea R19.7 ??? Edema of lower extremity R60.0 ??? Essential hypertension I10 ??? Flash pulmonary edema J81.0 ??? Gastroesophageal reflux disease with esophagitis K21.00 ??? Hypokalemia E87.6 ??? Hypomagnesemia E83.42 ??? Nontraumatic tear of rotator cuff M75.100 ??? Restless legs syndrome G25.81 ??? Sensorineural hearing loss (SNHL) of both ears H90.3 ??? Serrated adenoma of colon D12.6 ??? Steatosis of liver K76.0 ??? Class 3 severe obesity due to excess calories with serious comorbidity and body mass index (BMI)of 45.0 to 49.9 in adult E66.01, Z68.42 ??? Type 2 diabetes mellitus without complication, without long-term current use of insulin E11.9 ??? History of surgical procedure Z98.890 ??? Neural foraminal stenosis of cervical spine M48.02 ??? Morbid obesity E66.01 Review of Systems Constitutional: energy level is good , restless leg is stable on meds, no pica, + alopecia-baseline issue (wears wig) Neuro: no c/o paresthesias. No changes in memory CV: no chest pain or palpitations. Pulm: denies SOB or cough. GI: denies bloating, abdominal pain. No recent nausea/vomiting. No diarrhea. Occasional constipation. WATCH GUARD GATE: regular menses. S/p tubal ligation Skin: No c/o redundant skin or skin fold rashes. Health Habits: Tobacco/Nicotine use: None ETOH use: None None NSAID use. Social History: lives with her partner Jayne, 3 of their children live with them. Monisha has 4 children (teens/twenties), Her partner has 2 teenage children. 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 Dietary history/ exericse/ activity level: See dietitian note from today's visit for complete dietary evaluation. Meds and Allergies reviewed. Complications summary: Early none Late - ? WT (lbs) BMI HT %EBW lost Pre- OP Visit 06/05/19 268 45 64.5 ?? Post-op WT (lbs) BMI ? 12/15/19 229 38.75 ?? 32% ??03/23/20 ??195.5 ??33.56 ?? 60% 12/28/20 172.8 29.15 80% Objective: BP (!) 131/92 (BP Location (NBP): Left arm, Patient Position: Sitting, BP Cuff Sizes: Adult (25-34 cm)) Pulse 65 Resp 18 Ht 163.8 cm (5' 4.5) Wt 78.2 kg (172 lb 8 oz) SpO2 100% BMI 29.15 kg/m?? Physical Exam General: Alert, pleasant, NAD, appears well. Abdomen: Soft, non-distended, non-tender. Resp: No increased work of breathing. Speaking in full sentences. No cough/wheeze witnessed. Skin: excess skin noted abdomen. Skin is warm and dry. No rash noted on exam today. Psychiatric: Normal mood and affect. Appropriate eye contact. No results found for this or any previous visit (from the past 72 hour(s)). Assessment 50 y.o. female who is 1 year s/p Nadia-en-Y gastric bypass with 80 % of excess body weightlost Plan: ?? S/p bariatric surgery: o Hypoglycemia: Discussed importance of protein at every meal. Reviewed rule. Encouraged to track symptoms/nutrition intake to determine diet related cause. Avoid bake potato and see if sx occur.Encouraged to try to eat 1 candy prior to walking to see if that prevents hypoglycemia. Offered referral to endocrinology for further eval/managment. She notes her sx are tolerable at this time and shewill try the above strategies and call/RTC if new/worsening sx occur or if she desires referral to endo. o Otherwise doing well from a bariatric surgery perspective. Discussed dietary considerations and strategies for weight maintenance . Reviewed importance of meeting nutritional/protein/fluid requirements, tracking food and food choices, pairing carbs with protein, being careful to avoid eating too fast, eating too much, drinking with meals, or not chewing well enough. o Patient has met with glove former today, please see note for additional details/dietary evaluation. ??? Obesity related co-morbidities: o Improved/stable overall, patient to continue to follow with PCP/specialist. ??? Risk for vitamin deficiencies: o Will check iron studies, folate, Vit D, Vit B 1, Vit B 12, hemogram, CMP, PTH, A1c o Reviewed recommended vitamin/mineral supplements - Will make additional recommendations once lab results are available. - See RD note for additional details. o Pt reminded that a bone mineral density scan (DEXA) is recommended every 2 years after bariatric surgery. RTC in 1 year for next BSP follow up visit, with labs. Call/rtc sooner prn with questions/concerns or unexplained abdominal pain, prolonged nausea, vomiting or inability to hydrate. Bariatric Program Summary report is availabe for patient's review via e-DH 30 minutes spent with patient in [id number] discussion including review of diagnosis, labs, counseling/education and treatment plan. Rylie Rea APRN RECOMMENDED BARIATRIC SURGERY PROGRAM POSTOPERATIVE FOLLOW-UP: Follow up: done at 4, 12 and yearly thereafter. High risk patients are evaluated on a more frequent basis. *Typical Supplement recommendations: Multivitamin with minerals twice a day, B12 500 mcg once a day, calcium citrate 600 mg/400 units vitamin D twice a day, iron (ferrous fumarate, carbonyl iron taken with vitamin C 250 mg once every other day) for menstruating females or those with Iron Deficiency. Labwork: Hemogram, ferritin, iron (transferrin) saturation, iron, folate, B1, B12, D (25 hydroxy only), Intact PTH and comprehensive metabolic profile at 4, 12 months and yearly. If labwork is done by the primary health care assistant: please send a copy to the Bariatric Surgery Program, General Surgery Clinic, [facility], or fax [phone] documented in this encounter Plan of Treatment Upcoming Encounters Date Type Specialty Care Team Description 02/08/2022 TH Visit (TeleHealth) General Surgery Rylie Rea APRN [facility] [place] [address] Keiry Chatterjee, SAM [facility] [place] [address] documented as of this encounter Goals Goal Patient Goal Associated Recent Patient-Stated? Author Type Problems Progress increase Lifestyle On track luba Ledesma (08/29/2019 Linda Arcos, goal 10:03 AM EDT) [...] encounter Procedures Procedure Name Priority Date/Time Associated Comments Diagnosis HC PARATHYROID Routine 12/28/2020 12:34 Post-resection Results for this HORMONE(PTH INTACT PM EDT malabsorption procedure are in S/P bariatric the results surgery section. Disorder of iron metabolism HC HEMOGRAM Routine 12/28/2020 12:34 Post-resection Results f or this PM EDT malabsorption procedure are in S/P bariatric the results surgery section. Disorder of iron metabolism HC PCH THIAMIN Routine 12/28/2020 12:34 Post-resection Results for this LVL(VITAMIN B1) PM EDT malabsorption procedure are in [facility] S/P bariatric the results surgery section. Disorder of iron metabolism HC IRON BINDING Routine 12/28/2020 12:34 Post-resection Result s for this CAPACITY PM EDT malabsorption procedure are in S/P bariatric the results surgery section. Disorder of iron metabolism HC VITAMIN D TOTAL-25 Routine 12/28/2020 12:34 Post-resection Results for this HYDROXY PM EDT malabsorption procedure are in S/P bariatric the results surgery section. Disorder of iron metabolism HC HEMOGLOBIN A1C Routine 12/28/2020 12:34 Post-resection Resu lts for this PM EDT malabsorption procedure are in S/P bariatric the results surgery section. Disorder of iron metabolism HC FOLATE, SERUM Routine 12/28/2020 12:34 Post-resection Resul ts for this PM EDT malabsorption procedure are in S/P bariatric the results surgery section. Disorder of iron metabolism HC FERRITIN, SERUM Routine 12/28/2020 12:34 Post-resection Res ults for this PM EDT malabsorption procedure are in S/P bariatric the results surgery section. Disorder of iron metabolism HC VITAMIN B12 SERUM Routine 12/28/2020 12:34 Post-resection R esults for this PM EDT malabsorption procedure are in S/P bariatric the results surgery section. Disorder of iron metabolism COMPREHENSIVE Routine 12/28/2020 12:34 Post-resection Results for this METABOLIC PANEL PM EDT malabsorption procedure are in (NON-FASTING) S/P bariatric the results surgery section. Disorder of iron metabolism documented in this encounter Results Hemoglobin A1c (12/28/2020 12:34 PM EDT) athologist Signature Hemoglobin A1C 5.4 4.3 - 5.6 [facility] Comment: Reference Range: 4.3 - 5.6% 5.7 - 6.4% - Increased Risk of Developin g Diabetes Mellitus >= 6.5% - Consistent with diagnosis of D iabetes Mellitus In the absence of hyperglycemia (i.e. pl asma glucose > 200 mg/dL) or classic symptoms of hyperglycemia a repeat measu rement of HbA1c should be performed on a separate sample to confirm the diagnos is. Diagnosis and Classification of Diabetes Mellitus, Diabetes Care 2013; 36: Suppl. 1, S67-43 Est Avg Gluc 109 mg/dL [facility] Comment: eAG equivalents for HbA1c percentages: HbA1c(%) ?eAG(mg/dL) 6.0 ?126 6.5 ?140 7.0 ?154 7.5 ?169 8.0 ?183 8.5 ?197 9.0 ?212 9.5 ?226 10.0 ? 240 Limitations: The eAG calculation has not been validated on women, individuals below 18 years old and above 70 years old, and individuals with hemoglobinopathies. Additional resources are available on [facility] ADA website. Javi LOZOYA, Juan J, Zoya R, et al. ??Tr anslating the A1C assay into estimated average glucose values. ??Diabetes Care 2008:31(8):3232-3194. Specimen Anatomical Collection Method Collection Time Receive d Time (Source) Location / / Volume Laterality Blood 12/28/2020 12:34 12/28/2020 PM EDT 12:47 PM EDT Resulting Agency Comment Spec In Lab Rylie Rea APRN CHEMISTRY ORDERABLES Performing Organization Address City/State/ZIP Code Phon e Number [place] [address] Vitamin D, 25-Hydroxy (12/28/2020 12:34 PM EDT) Patholo gist Method Time Signature 25-OH Vit D 29 21 - 100 [facility] RAJ Total ng/mL [facility] LABOR[facility]ORY 25-OH Vit D Insufficient [facility] Interp [facility] Specimen Anatomical Collection Method Collection Time Receive d Time (Source) Location / / Volume Laterality Blood 12/28/2020 12:34 12/28/2020 PM EDT 12:47 PM EDT Resulting Agency Comment Spec In Lab Rylie Rea APRN CHEMISTRY ORDERABLES Performing Organization Address City/State/ZIP Code Phon e Number [address] Vitamin B12 (12/28/2020 12:34 PM EDT) athologist Signature Vitamin B-12 580 232 - 1,245 [facility]mL [facility] Specimen Anatomical Collection Method Collection Time Receive d Time (Source) Location / / Volume Laterality Blood 12/28/2020 12:34 12/28/2020 PM EDT 12:47 PM EDT Resulting Agency Comment Spec In Lab Rylie Rea APRN CHEMISTRY ORDERABLES Performing Organization Address City/State/ZIP Code Phon e Number [address] Vitamin B1, whole blood (12/28/2020 12:34 PM EDT) athologist Signature Vit B1 Lvl WB 103 70 - 180 [facility] nmol/L [facility] Comment: ADDITIONAL INFORMATIO N This test was developed and its performa nce characteristics determined by [facility] in a manner co nsistent with CLIA requirements. This test has not been yoav ared or approved by the U.S. Food and Drug Administration. Test Performed by: [facility] [address] [id number] Pitching Coach: Jun Blair M.D. Ph. D.; [facility]# [id number] Specimen Anatomical Collection Method Collection Time Receive d Time (Source) Location / / Volume Laterality Blood 12/28/2020 12:34 12/28/2020 2:45 PM EDT PM EDT Resulting Agency Comment Spec In Lab Rylie Brandon Álvaro NUNEZ CHEMISTRY ORDERABLES Performing Organization Address City/[facility]/ZIP Code Phon e Number [address] (ABNORMAL) PTH (12/28/2020 12:34 PM EDT) P athologist Signature PTH 78 (H) 15 - 65 [facility] pg/mL [facility] Specimen Anatomical Collection Method Collection Time Receive d Time (Source) Location / / Volume Laterality Blood 12/28/2020 12:34 12/28/2020 PM EDT 12:47 PM EDT Resulting Agency Comment Spec In Lab Rylie Rea APRN CHEMISTRY ORDERABLES Performing Organization Address City/[facility]/ZIP Code Phon e Number [address] Iron and TIBC (12/28/2020 12:34 PM EDT) P athologist Signature Iron 92 30 - 150 [facility] mcg/dL [facility] TIBC 304 250 - 450 [facility] mcg/dL [facility] Iron Saturation 30 20 - 50 % [facility] Specimen Anatomical Collection Method Collection Time Receive d Time (Source) Location / / Volume Laterality Blood 12/28/2020 12:34 12/28/2020 PM EDT 12:47 PM EDT Resulting Agency Comment Spec In Lab Rylie Rea APRN CHEMISTRY ORDERABLES Performing Organization Address City/[facility]/ZIP Code Phon e Number [address] (ABNORMAL) Hemogram (12/28/2020 12:34 PM EDT) P athologist Signature WBC 9.7 (H) 4.0 - 9.5 [facility] x10(3)/[facility] LABORATORY RBC 4.79 4.00 - [place]ANT[place] 5.21 [facility] x10(6)/[facility] LABORATORY Hemoglobin 14.2 11.7 - [place] 15.5 g/dL [facility] Hematocrit 41.6 35.7 - [place] 45.8 % [facility] MCV 86.8 82.6 - [place] RAJ 94.4 [facility] LABORATORY MCH 29.6 27.1 - [place] 32.0 pg [facility] LABORATORY MCHC 34.1 31.7 - [place] 35.0 g/dL [facility] Platelets 348 145 - 357 [facility] x10(3)/[facility] LABORATORY RDWSD 41.0 37.0 - [place] RAJ 46.0 [facility] LABORATORY RDWCV 12.8 11.5 - [facility] RAJ 14.1 % [facility] LAB[facility] MPV 9.6 7.6 - 12.9 [facility] LABORATORY nRBC % Auto 0.0 % [facility] LAB[facility] nRBC Abs Auto 0.000 0.000 - [place] RAJ 0.000 [facility] x10(3)/[facility] LABORATORY Specimen Anatomical Collection Method Collection Time Receive d Time (Source) Location / / Volume Laterality Blood 12/28/2020 12:34 12/28/2020 PM EDT 12:47 PM EDT Resulting Agency Comment Spec In Lab Rylie Rea APRN HEMATOLOGY ORDERABLES Performing Organization Address City/[facility]/ZIP [place] [address] Folate, serum (12/28/2020 12:34 PM EDT) P athologist Signature Folate Lvl 7.7 4.8 - 24.2 [facility] RAJ ng/mL [facility] Specimen Anatomical Collection Method Collection Time Receive d Time (Source) Location / / Volume Laterality Blood 12/28/2020 12:34 12/28/2020 PM EDT 12:47 PM EDT Resulting Agency Comment Spec In Lab Rylie Rea APRN CHEMISTRY ORDERABLES Performing Organization Address City/State/ZIP Code [place] [address] Ferritin (12/28/2020 12:34 PM EDT) athologist Signature Ferritin 41 30 - 400 [facility] ng[facility]mL [facility] Comment: Pediatric reference ranges not verified at [facility], interpret with caution. Reference ranges for females greater keaton n 50 years of age approach values for men, i.e., 30-400 ng/mL. Specimen Anatomical Collection Method Collection Time Receive d Time (Source) Location / / Volume Laterality Blood 12/28/2020 12:34 12/28/2020 PM EDT 12:47 PM EDT Resulting Agency Comment Spec In Lab Rylie Rea APRN CHEMISTRY ORDERABLES Performing Organization Address City/State/ZIP Code Phon e Number [address] (ABNORMAL) Comprehensive metabolic panel (non-fasting) (12/28/2020 12:34 PM EDT) athologist Signature Glucose Lvl 86 65 - 199 [facility] mg/dL [facility] Comment: Diabetes: >=200 mg/dL plus symp toms BUN 15 8 - 18 mg/dL [facility] Creatinine 0.81 0.70 - 1.20 mg/dL [facility] LABORATORY Sodium 138 135 - 145 mmol/L [facility] LABOR[facility] Potassium 3.3 (L) 3.5 - 5.0 mmol/L [facility] Comment: Please note: ??Patients with WBC >100,00 0 may have falsely elevated Potassium levels. ??For accurate Potassium quantif ication in these patients send serum separator tube (gold top) for subsequent determinations. ??Contact the Clinical Chemistry Laboratory if there are any qu estions. Chloride 98 98 - 107 mmol/L [facility] CO2 29 22 - 31 mmol/L [facility] Anion Gap 11 5 - 15 mmol/L [facility] Calcium 9.7 8.5 - 10.5 mg/dL [facility] Total Protein 7.1 6.1 - 8.0 g/dL [facility] LABORATORY Albumin 4.4 3.2 - 5.2 g/dL [facility] AST 19 0 - 30 unit/L [facility] ALT 18 0 - 30 unit/L [facility] Alk Phos 59 35 - 105 unit/L [facility] Total Bilirubin 0.3 0.2 - 1.3 mg/dL [facility] LABORATORY Estimated GFR 84 >=60 mL/min/1.73 m?? [facility] Comment: This patient? s estimated glomerular filtration rate (eGFR) is between 84 mL/min/1.73 m2 (patients with less muscl e mass) and 97 mL/min/1.73 m2 (patients with more muscle mass) as determined by the CKD-EPI equation. Assessment of eGFR is not appropriate when creatinine concentrations are rapidly changing. For clinical decisions where creatinine clearance will affect therapy, a 24-hour urine creatinine clearance may b e advised. Assignment of CKD stage 1 - 5 for patien ts with an eGFR near the transition point between stages may be based on cli nical assessment of muscle mass and symptoms in addition to eGFR. 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
--- OUTSIDE RECORDS SUMMARY | 2022-02-03 02:28 | XMS_ITS | Encounter Summary ---
:1970 Author Organization [facility] [place] [address] Care Team Providers Name Role Phone Huyen Ramon DO Primary Care Provider Encounter Details Date Type Department Care Team Description 03/24/2020 Telephone General Surgery at [facility] Rylie Rea, [facility] [place] [address] [facility] [phone] [place], [place] [address] (Wo rk) Social History Tobacco Use Types Packs/Day Years Used Date Never Smoker Smokeless Tobacco: Never Used Alcohol Use Standard Drinks/Week Comments No 0 (1 standard drink = 0.6 oz pure alcoho l) Sex Assigned at Date Recorded Not on file documented as of this encounter Miscellaneous Notes Telephone Encounter - Rylie Rea APRN - 03/24/2020 10:46 AM EST TC to patient, left message re: recent lab results particularly her low potassium level. Advised herto f/u with her PCP for further discussion re: potassium supplementation. Additionally sent letter via my re: lab results and recommendations. documented in this encounter Plan of Treatment Upcoming Encounters Date Type Specialty Care Team Description 02/08/2022 TH Visit (TeleHealth) General Surgery Rylie Rea APRN [facility] [place] [address] [facility] [place] [address] documented as of this encounter Goals Goal [...] documented as of this encounter Visit Diagnoses Not on filedocumented in this encounter Care Teams Elementary Esl Teacher Relationship Specialty Start Date End Date Huyen Ramon DO PCP - General Family Medicine 04/05/[address] [place] [address] documented as of this encounter
--- OUTSIDE RECORDS SUMMARY | 2022-02-03 02:28 | XMS_ITS | Encounter Summary ---
:1970 Author Organization [facility] [place] [address] Care Team Providers Name Role Phone Huyen Ramon DO Primary Care Provider Reason for Referral Consultation (Routine) - Closed Specialty Diagnoses / Procedures Referred By Contact Refer red To Contact Weight and Wellness Diagnoses Personal history of other diseases of circulatory system Personal history of other endocrine, metabolic, and immunity disorders Other specified personal risk factors, not elsewhere classified Huyen Ramon [facility] DO [address] [place] [id number] Referral ID Status Reason Start Date Expiration Date Visits V isits Requested Authorized [id number] Closed Consult, Test 10/25/2021 10/25/2022 6 6 & Treat PCP Updated and/or Approved Encounter Details Date Type Department Care Team Description 10/25/2021 Transcribe Orders eDH Incoming Tamera Ramon h istory of other diseases of circulatory system; Referrals Huyen Tucker DO History of hypersecretion of ovarian and rogens; [phone] [place] [address] Personal his tory of other endocrine, metabolic, and immunity disorders; RD Other specified personal risk factors, [place] [address] Social History Tobacco Use Types Packs/Day Years Used Date Never Smoker Smokeless Tobacco: Never Used Alcohol Use Standard Drinks/Week Comments No 0 (1 standard drink = 0.6 oz pure alcoho l) Sex Assigned at Date Recorded Not on file documented as of this encounter Plan of Treatment Upcoming Encounters Date Type Specialty Care Team Description 02/08/2022 TH Visit (TeleHealth) General Surgery Rylie Rea, ANTENNA MACHINE OPERATOR [facility] [place] [address] Keiry Chatterjee, RD [facility] [place] [address] Scheduled Referrals Name Type Priority Associated Diagnoses Order S chedule Referral to Weight Outpatient Referral Routine Personal histor y of Ordered: [facility] other diseases of 10/25 circulatory syst em Personal history of other endocrine, metabolic, and immunity disorde rs Other specified personal risk factors, not elsewhere classified documented as of this encounter Goals Goal [...] as of this encounter Visit Diagnoses Diagnosis Personal history of other diseases of ci rculatory system History of hypersecretion of ovarian and rogens Personal history of other endocrine, met abolic, and immunity disorders Personal history of other endocrine, met abolic, and immunity disorders Other specified personal risk factors, n ot elsewhere classified documented in this encounter Care Teams Form Block Maker Relationship Specialty Start Date End Date Huyen Ramon DO PCP - General Family Medicine 04/05/[address] [place] [place] [address] documented as of this encounter
--- OUTSIDE RECORDS SUMMARY | 2022-02-03 02:28 | XMS_ITS | Encounter Summary ---
:1970 Author Organization [facility] [place] [address] Care Team Providers Name Role Phone Tristen Huyenjenna Tucker DO Primary Care Provider Encounter Details Date Type Department Care Team Description 12/30/2021 Telephone General Surgery at [facility] Rylie Rea, [facility] [place] [address] [facility] [phone] [place], [place] [address] (Wo rk) Social History Tobacco Use Types Packs/Day Years Used Date Never Smoker Smokeless Tobacco: Never Used Alcohol Use Standard Drinks/Week Comments No 0 (1 standard drink = 0.6 oz pure alcoho l) Sex Assigned at Date Recorded Not on file documented as of this encounter Miscellaneous Notes Telephone Encounter - Rylie Rea APRN - 12/30/2021 8:16 AM EDT Patient no showed for scheduled teleheatlh visit. Attempted to call pt to connect via telephone, unable to reach. Left VM with contact information to re- schedule bariatric surgery follow up. documented in this encounter Plan of Treatment Upcoming Encounters Date Type Specialty Care Team Description 02/08/2022 TH Visit (TeleHealth) General Surgery Rylie Rea APRN [facility] [place] [address] [facility] [place] [address] documented as of this encounter Goals Goal [...] on filedocumented in this encounter Care Teams Bench Worker Apprentice Relationship Specialty Start Date End Date Huyen Ramon DO PCP - General Family Medicine 04/05/[address] [place] [address] documented as of this encounter
--- OUTSIDE RECORDS SUMMARY | 2022-02-03 02:28 | XMS_ITS | Encounter Summary ---
:1970 Author Organization [facility] [place] [address] Care Team Providers Name Role Phone Tristen Huyenjenna Tucker DO Primary Care Provider Encounter Details Date Type Department Care Team Description 04/13/2021 Telephone Endocrinology at [facility] C Jordyn Colon I [facility] [place] [address] Social History Tobacco Use Types Packs/Day Years Used Date Never Smoker Smokeless Tobacco: Never Used Alcohol Use Standard Drinks/Week Comments No 0 (1 standard drink = 0.6 oz pure alcoho l) Sex Assigned at Date Recorded Not on file documented as of this encounter Miscellaneous Notes Telephone Encounter - Jordyn Colon I - 04/13/2021 12:40 PM EST Called to schedule a 2-3 month FUV with one of the fellows per Maryanne Mendieta documented in this encounter Plan of Treatment Upcoming Encounters Date Type Specialty Care Team Description 02/08/2022 TH Visit (TeleHealth) General Surgery Rylie Rea, EMPLOYEE BENEFITS ADMINISTRATOR [facility] [place] [place] [address] Keiry Chatterjee, RD [facility] [place] [address] documented as of this encounter Goals Goal [...] on filedocumented in this encounter Care Teams Residential Roofer Relationship Specialty Start Date End Date Huyen Ramon DO PCP - General Family Medicine 04/05/[address] [place] [address] documented as of this encounter
--- OUTSIDE RECORDS SUMMARY | 2022-02-03 02:29 | XMS_ITS | Encounter Summary ---
:1970 Author Organization [facility] [place] [address] Care Team Providers Name Role Phone Huyen Ramon DO Primary Care Provider Encounter Details Date Type Department Care Team Description 11/19/2019 Office Visit General Surgery at Quintin Rea APRN [facility] [place] [address] Class 3 severe [facility] Keiry Chatterjee, RD [facility] [place] [address] obesity due to excess [facility] calories with serious Drive comorbidity and body [place], [place] ([place] ) [place] [phone] 45.0 to 49.9 in adult [phone] Social History Tobacco Use Types Packs/Day Years Used Date Never Smoker Smokeless Tobacco: Never Used Alcohol Use Standard Drinks/Week Comments No 0 (1 standard drink = 0.6 oz pure alcoho l) Sex Assigned at Date Recorded Not on file documented as of this encounter Patient Instructions Patient InstructionsRylie Rea APRN - 11/19/2019 10:00 AM EDT BARIATRIC SURGERY PROGRAM Questions for your doctor, specialist or pharmacist: ??? Ask your doctor about medication suggestions if you currently take medications that are larger than the size of a tylenol or calcium pill. Large pills need to be crushed (if permitted by the drug airplane dispatch clerk), taken in smaller size pills, or taken in liquid form for TWO WEEKS after surgery. 2. If you take antinflammatory medications or steroid medications for arthritis or asthma, please check with your doctor. These medications will need to be held 1 week prior to and at least a few weeksafter surgery. GENERAL BARIATRIC SURGERY DISCHARGE INFORMATION (some information specific to health problems list below may not pertain to you) BARIATRIC SUPPORT TEAM CONTACT NUMBERS (Mon-Fri 8am - 5pm): General Surgery and Bariatric Surgery [phone] Bariatric Surgeons: Doctors. Shaw [phone] Hr Advisor: [phone] Dietitians: [phone] Outside of regular business hours, including weekends and holidays: Ask for General Surgery resident carton filler [phone] FOR EMERGENCIES: CALL 911 (trouble breathing, chest pain, rapid heart rate >120 beats per minute or severe abdominal pain) CALL THE BARIATRIC TEAM FOR ANY OF THE FOLLOWING: ?? Signs and symptoms of infection such as: - Redness or swelling or new significant drainage from wounds - Drainage or bleeding from wounds - Fever over 101 degrees Fahrenheit, or shaking chills ?? Persistent diarrhea or vomiting or inability to keep down food or fluids down in a 24 hour period. ?? Signs / symptoms of a blood clot: leg swelling, redness, or pain, shortness of breath ?? Problems with urination or constipation, worsening abdominal pain not controlled with pain medication ?? Any concerns you may have after your surgery Follow up Information: You will be given a surgical followup appointment with The Bariatric Surgery Team in 3 weeks at the General Surgery Outpatient Clinic (Unit Assistant 4L, [facility]). BATHING AND WOUND CARE: ?? You may shower 2 days after surgery ?? Wash incisions with unscented mild soap ?? Rinse, pat dry and leave open to air. ?? Remove Steri-strips if they don't fall off by 7-10 days after discharge. Pat dry if they become wet. ?? Do not soak wound (no baths, no swimming) for 3 weeks after surgery ACTIVITY, LIFTING AND DRIVING: ?? For laparoscopic surgery: there are no lifting restrictions. Lift when you feel comfortable. ?? Do not drive for 2 weeks. After [address] when comfortable and not taking narcotic pain medicine. DIET: ?? Follow Stage II diet for two weeks. ?? Keep a log of your intake: Daily goals are: 48-64 ounces of fluids and 60 grams of protein. MEDICATIONS: ?? For 2 WEEKS: LARGE pills (bigger than the size of a calcium pill) must be crushed, Capsules must be opened onto applesauce or pudding. ?? Pills smaller than the size of a calcium DO NOT need to be crushed. ?? Not all medications can be crushed. Check with your pharmacist if unsure. ?? HOLD bariatric vitamins for 2 weeks after surgery BLOOD CLOT PREVENTION: ?? Be active, walk at least 4 times a day and do blood clot prevention exercises in your handbook onpage 82. ?? Some patients will be discharged on enoxaparin twice a day for 10 days to prevent blood clots, which is determined by the surgeon. IF YOU ARE TREATED FOR OBSTRUCTIVE SLEEP APNEA: ?? IMPORTANT - you MUST use your CPAP/ BIPAP after surgery while sleeping at night and also when napping during the day because some medications you may have been prescribed at discharge can decrease your breathing. ?? Follow up with the Sleep Center if pressure seems to be too high. ULCER PREVENTION: ?? IMPORTANT - you must take acid suppressing medication such as pantoprazole, nexium or omeprazolefor 3 MONTHS after surgery. This is taken to prevent ulcers at your surgical sites internally, even ifyou do not have heartburn. ?? omeprazole 20 mg daily (or another medication you may currently take for heartburn/reflux that has been discussed with Bariatric Team) ?? Omeprazole capsules contain enteric-coated, delayed-release granules. Because these granules should not be chewed or crushed, you must OPEN the capsules, sprinkle the enteric-coated granules on applesauce or yogurt. Alternatively, you may take the granules with apple juice, or swallow them quickly with water. Follow any of these methods with additional water to ensure that you have swallowed the granules completely. ?? If your insurer does not cover omeprazole, or similar medications such as pantoprazole, you must purchase these medications over the counter. ?? Decrease the medication to every other day when you have 7 days left in your prescription. Continue this after the initial 3 month course if you have heartburn or reflux ?? If you have Bonilla's esophagus, continue the medication [facility] GALLSTONE PREVENTION: ?? If you have had your gallbladder REMOVED - you do not need this medication. ?? If you have your gallbladder after Bariatric Surgery - you must take start taking Ursodiol (Actigall) 300 mg twice a day to prevent gallstones. You may START this medication 2 weeks after surgery for a duration of 6 months. After that, you may stop this medication unless otherwise directed. PAIN MEDICATION: ?? Your pain should lessen with each day out from surgery. Over the next couple of days you should be requiring less narcotic medication to control your pain, and eventually you will not need any at all. ?? Take the medication exactly as it is prescribed and make sure to read all instructions that come with the medication. Take only as needed. ?? You may adjunct your pain control using scheduled Tylenol (acetaminophen), use as directed. Do NOT use NSAIDS (ibuprofen, Motrin, Aleve, Toradol, aspirin, etc.) to adjunct your pain control. ?? Opioids can slow reaction time, cause drowsiness or cloud judgement. You MUST NOT DRIVE while taking narcotic pain medication. ?? Taking more than the prescribed amount of narcotic or combining with alcohol or drugs can cause you to stop breathing, leading to coma, brain damage or . ?? Using this drug may cause addiction. While addiction is more common in people with a personal or family history of addiction, it can occur in anyone. ?? Opioids are at risk of being diverted by anyone with access to your home. Opioids should be stored in a safe and secure place, such as a locked cabinet or safe. ?? Unused opioids should be disposed of appropriately. They may be returned to a take-back location,or mixed with a small amount of water and poured over an undesirable waste such as used coffee grounds or cat litter. ?? Opioid pain medications can cause significant constipation. You should use a stool softener such as Miralax to address this. OTHER MEANS FOR PAIN RELIEF: Other than medications. ?? Learn deep breathing exercises or meditation to help you relax ?? Reduce stress ?? Your body produces natural endorphins from exercise which can help reduce pain. Even walking is considered exercise. Talk with your provider/surgical team about what exercises are appropriate for you to perform. ?? You may use a heating pad or apply ice to the painful area unless specifically discouraged by thesurgical team. ?? Find ways to distract yourself from the pain. MEDICATIONS TO AVOID FOR TWO MONTHS AFTER SURGERY: ?? Discontinue anti-inflammatory non-steroidal medications, such as Celebrex, Mobic, Advil (ibuprofen), Aleve (naprosyn), etc. Refer to Medications that may increase the risk of bleeding in handbook. ?? If you do take aspirin for your heart or to prevent strokes, continue as prescribed. WOMEN OF CHILDBEARING AGE: ?? Fertility may increase with weight loss. Avoid for 18-24 months after bariatric surgery. ?? Condoms alone are not acceptable as a form of control. Do not take control pills for the first month after surgery. MANAGEMENT OF DIABETES MELLITUS AFTER BARIATRIC SURGERY: ?? IMPORTANT to check blood sugars four times a day, fasting blood sugars, 2 hours after meals and as needed when feeling unwell. ?? If the Diabetes Team saw you during your hospital stay, they have listed specific recommendationselsewhere in your discharge paperwork. Please refer to their specific diabetes care recommendations. ?? Patients on oral diabetic medication: If blood sugar is over 200 on more than 3 checks, [facility] or diabetic specialist for recommendations. For patients on insulin and oral diabetic medications: If blood sugar is over 200 on 3 checks, call your primary care doctor or diabetic specialist for recommendations. ?? Follow up with primary care provider or drug discovery informatics specialist in 1-2 weeks in order to adjust your changing diabetes treatment requirements. PATIENTS WITH HIGH BLOOD PRESSURE: ?? Monitor your blood pressure regularly. ?? If you feel dizzy and have been drinking 48-64 ounces of fluid, have your blood pressure checked. ?? If your blood pressure is low, call your primary care provider. Keep a log to bring to your PCP appointments. PATIENTS WHO TAKE DIURETICS (WATER PILLS) such as furosemide, HCTZ (hydrochlorothiazide), spironolactone: ?? Check with your surgical team prior to discharge for instructions. In general, this medication isstopped after surgery, as you are at risk for dehydration after Bariatric Surgery. ?? Monitor yourself for any swelling of legs or gain of water weight after medication is stopped. Call your primary care doctor if you notice this. PATIENTS ON ANTI-DEPRESSANT OR MENTAL HEALTH MEDICATIONS: ?? Do not stop or decrease your medications unless advised. ?? Ongoing counseling is encouraged. VITAMIN AND MINERAL SUPPLEMENTATION: START at 2 weeks post surgery Vitamin B12 500 mcg pill daily Complete multivitamin w/ mineralsCalcium One pill twice daily. If a bariatric specific multivitamin,follow the package directions Calcium citrate 600 mg with vitamin D 400 units twice a day between meals. Iron with vitamin C Take iron as instructed per Handbook - (only if you have anemia, iron deficiencyor regular menses) FOLLOW-UP CARE: ?? It is IMPORTANT to see your Primary Care Physician or PCP within 10-14 days after surgery for wound check and vital signs check, and to discuss specific medical management as referenced above. ?? You should follow up with your surgeon and dietitian at 3-4 weeks after surgery. ?? You will follow up with the dietitian and Bariatric nurse practitioner at 4, 12 months, then yearly for life. documented in this encounter Progress Notes Keiry Chatterjee RD - 11/19/2019 10:00 AM EDT BARIATRIC SURGERY PROGRAM NUTRITION EDUCATION 2nd Pre-Operative Visit Shared Medical Appointment Monisha Das attended a 2 hour shared medical appointment today with the bariatric surgery program dietitian and nurse practitioner. Ms. Das is a morbidly obese female who has been referred for nutrition evaluation and diet instruction in anticipation of bariatric surgery. 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 Advised patient that bariatric surgery is a weight loss tool not a solution; and ultimately weight loss will be achieved through proper eating and exercise habits. Patient was given a copy of the program handbook at the initial appointment which includes specific information on all nutrition recommendations and guidelines. Pt instructed on importance of following the Pre-operative Surgical Diet. Failure to do so may result in poor pre-surgical weight loss and may result in surgery not being performed. Monisha was given the opportunity to ask questions and all questions were answered. She was also given contact information for further nutrition questions. Nutrition Topics Covered at Today's Appointment: ?? Pre-operative Surgical Diet ?? Purpose of diet ?? Appropriate foods ?? Protein goals ?? Carbohydrate goals ?? Calorie goals ?? Keeping a food log ?? Hydration and Appropriate Beverages ?? Post-Operative Diets (Stages I-IV) ?? Importance of following diet stages ?? Appropriate foods ?? Sample Menus ?? Vitamin/Mineral Supplementation ?? Common Food Intolerances ?? Dumping Syndrome ?? Sugar Alcohols ?? Physical Activity ?? Weight Regain The appointment consisted of 60 minutes of group education and counseling. Rylie Rea APRN - 11/19/2019 10:00 AM EDT BARIATRIC SURGERY PROGRAM [place], [place] [id number] Reason for visit: [facility] for up coming bariatric surgery Monisha attended a comprehensive group pre-operative class today, which included discussion of pre and post operative instructions included in the [facility] Bariatric Surgery Program Education Handbook. The nutrition component of the class was taught by the BSP RD. Today's visit is group only, with no individual discussion. The patient's medications/ allergies, problem list were not reviewed. Obesity related medical issues: o Diabetes [x] Yes, On metformin [] Not a baseline issue o HTN: [x] Yes, on multiple meds [] Not a baseline issue o GERD: [x] Yes, on PPI [] Not a baseline issue o Hyperlipidemia: [x] Yes [] Not a baseline issue o LAUREN: [] Yes, [x] Not a baseline issue OR info: Laparoscopic Nadia-en-Y gastric bypass d/t GERD, on 11/28/[address] Garcia Individualized plan of care: as per surgeon note HOSPITAL DISCHARGE NEEDS: [x] Ursodiol [x] PPI [] Lovenox Recommendations for post discharge VTE prophylaxis (unless change in condition during hospitalization that would contraindicate treatment): as per surgeon note Prescriptions provided at today's visit: none Bariatric Surgery Program Pathway and review of status with the requirements of the Bariatric Surgery Program 1. Education: Pt previously attended a Introduction to the [facility] Bariatric Surgery Program seminar, a two hour meeting that provides a program overview as well as expectations. The [facility] Bariatric Surgery Program Educational seminar requirement has been met. The BSP Educational Handbook was provided atvisit #1. 2. Pre-operative programmatic evaluations have been done, as noted in previous pathway review. 3. Bariatric Surgery Program evaluations with the surgeon and dietitian have taken place. Monisha woodruff approved to proceed with surgery by surgeon. 6. Surgical consultation has taken place Next steps in pathway: ?? During hospitalization for bariatric surgery, a standard bariatric surgery order set is followed. ?? Routine post-operative follow up with labwork is done at months 1,4,12 and 24, yearly thereafter,and PRN. High risk patients are followed more frequently. Some of the topics reviewed during group discussion today included: ?? day of surgery and post-op routine care/ locations: Admissions/SDP/PACU/4/3/2 [place] units ?? medications that increase the risk of bleeding including NSAIDs and anticoagulants to be avoided per guidelines pre and post-operatively ?? DVT/VTE prevention and signs of DVT/PE. ?? Inpatient management for VTE prevention: venodynes, ambulation, Enoxaparin 40 units BID during inpatient stay. ?? Indications for extended Enoxaparin 10 days post discharge: A. patients with BMI >60 or prior VTE OR B. 2 or more of the following: age >50, BMI >50, male gender, sleep apnea, varicose veins, venous insufficiency, history of oral contraceptive or hormone or post-menopausal hormone replacement use within 30 days of surgery, and recent smoking ?? guidelines for patients treated with oral anticoagulants per Thrombosis Clinic ?? diabetes and hypertension monitoring during pre-op diet and post-operatively. Diuretic therapy isheld to avoid risk of dehydration unless patient is symptomatic. ?? signs and symptoms of infection as well as emergency signs and symptoms ?? common post-operative complaints ?? management of sleep apnea during hospitalization and post operatively. The importance of post-operative follow-up with Sleep Center after weight loss was stressed. ?? recommendations for psychiatric medications: should continue uninterrupted after surgery ?? activity post surgery/ return to work recommendations ?? routine BSP post-operative follow-up: 3 weeks. 4 months, 12 months and yearly for LIFE ?? routine Primary Care post-operative follow up: at 10-14 days after surgery to monitor chronic health problems such as diabetes and hypertension, since the requirement for antihypertensive and diabetic medications may decrease or be discontinued A preliminary copy of the discharge instructions was provided, which is also available in the patient handbook. Monisha was given the opportunity to ask questions, and all questions were answered. Time spent in counselin minutes documented in this encounter Plan of Treatment Upcoming Encounters Date Type Specialty Care Team Description 02/08/2022 TH Visit (TeleHealth) General Surgery Rylie Rea APRN [facility] [place] [address] [facility] [address] documented as of this encounter Goals Goal [...] temperature Other (Enter personal goal) Lifestyle Yes Naseem Wild Note: Formatting of this note might be [...] as of this encounter Visit Diagnoses Diagnosis Class 3 severe obesity due to excess divina ories with serious comorbidity and body mass index (BMI) of 45.0 to 49.9 in adult documented in this encounter Care Teams Tree Sapper Relationship Specialty Start Date End Date Huyen Ramon DO PCP - General Family Medicine 04/05/[address] [place] [place] [address] documented as of this encounter
--- OUTSIDE RECORDS SUMMARY | 2022-02-03 02:29 | XMS_ITS | Encounter Summary ---
:1970 Author Organization [facility] [place] [address] Care Team Providers Name Role Phone Huyen Ramon Primary Care Provider Encounter Details Date Type Department Care Team Description 08/23/2019 Notes Only Weight and Wellness at Linda Cai MD [facility] [address] [facility] [place] [address] [place] [address] [phone] (Wo rk) Social History Tobacco Use Types Packs/Day Years Used Date Never Smoker Smokeless Tobacco: Never Used Alcohol Use Standard Drinks/Week Comments No 0 (1 standard drink = 0.6 oz pure alcoho l) Sex Assigned at Date Recorded Not on file documented as of this encounter Progress Notes Linda Cai MD - 08/23/2019 2:10 PM EDT Images from the original note were not included. ?? 08/22/19 8:26 AM Forest Snyder, LORELEI routed this conversation to Me Monisha Das to Me ?? 08/22/19 7:49 AM Good morning, ?? My HgbA1C on August 20, 2019 was 6.6. It is down from 6.8 back in May of this year. ?? Happy Sunday. Monisha This encounter documented in this encounter Plan of Treatment Upcoming Encounters Date Type Specialty Care Team Description 02/08/2022 TH Visit (TeleHealth) General Surgery Rylie Rea, PROFESSIONAL BUILDER [facility] [place] [address] Keiry Chatterjee, RD [facility] [address] documented as of this encounter Goals Goal [...] before bedtime at least once a week. documented as of this encounter Visit Diagnoses Not on filedocumented in this encounter Care Teams Interceptor Operator Relationship Specialty Start Date End Date Huyen Ramon DO PCP - General Family Medicine 04/05/18 [address] [place] [address] documented as of this encounter
--- OUTSIDE RECORDS SUMMARY | 2022-02-03 02:29 | XMS_ITS | Encounter Summary ---
:1970 Author Organization [facility] [place] [address] Care Team Providers Name Role Phone JohanaStefani sharmajenna Tucker DO Primary Care Provider Encounter Details Date Type Department Care Team Description 08/21/2019 TH Visit Weight and Wellness Linda Cai Class 3 severe obesity due to excess calories with serious comorbidity and body mass index (BMI) of 45.0 to 49.9 in adult (Primary Dx); (TeleHealth) at [facility] MD Isrrael Sustained ventricular tachycardia [address] [place], [place] [address] [facility] [phone] [facility] [place], [place] [address] Social History Tobacco Use Types Packs/Day Years Used Date Never Smoker Smokeless Tobacco: Never Used Alcohol Use Standard Drinks/Week Comments No 0 (1 standard drink = 0.6 oz pure alcoho l) Sex Assigned at Date Recorded Not on file documented as of this encounter Last Filed Vital Signs Vital Sign Reading Time Taken Comments Blood Pressure - - Pulse - - Temperature - - Respiratory Rate - - Oxygen Saturation - - Inhaled Oxygen Concentration - - Weight 119.9 kg (264 lb 4.8 08/21/2019 1:39 PM home jesus alberto ght oz) EDT Height - - Body Mass Index 43.98 08/11/2019 4:10 PM EDT documented in this encounter Progress Notes Linda Cai MD - 08/21/2019 9:30 AM EDT [facility] Visit Patient Name: Monisha Das Date of : 1970 Age: 48 y.o. Huyen Ramon DO Thank you for referring Monisha Das to the [facility] for consultation regarding obesity. PREVIOUS LABS: No results found for: CHLPL No results found for: HDL No results found for: LDLCHOL No results found for: TRIG No results found for: CHOLHDL No results found for: HA1C Lab Results Component Value Date GLUCFASTING 139 (ExtH) 08/20/2019 Lab Results Component Value Date AST 22 08/15/2018 ALT 24 08/15/2018 CHIEF COMPLAINT: Follow-up for Obesity Pathway: [facility] - ADULT 07/23/2019 Bariatric Surgery Activate INTERVAL HISTORY / PROGRESS TOWARD GOALS: [x] I reviewed past / interim records including notes and labs. This is the first folllow up for this 48 y.o. patient who I saw in Weight and Wellness clinic for the first time on 07.23.2019. Weight was 268 lbs. Wants to pursue bariatric. From first visit: Monisha Das has co-morbidities associated with obesity including establishedobesity-related chronic disease including hypertension, type 2 diabetes (recently dx'd), reflux esophagitis , hypertension, depression (well controlled). , migraines,HLD, edema. Patient says: In December had flash pulmonary edema, was seen at [facility]. Got IV lasix and bipap.Had cardiac echo, everything was okay. I reviewed records. CXR was clear. Other medical problems on problem list and confirmed with patient: Restless legs, alopecia areata, history of kidney stone (incidental finding), irritable bowel type problem with diarrhea, history of preeclampsia in 2 pregnancies, hypokalemia, currently well controlled, hypomagnesemia, well controlled. ?? In PCP note it mentions history of sustained VT during hypokalemia episode. Patient says that this is questionable and she was told that it was not definite that this was VT. ?? Surgical history: x3. Endometrial ablation x2 Status post tonsillectomy. Sleep study showed no significant LAUREN. Taking gabapentin which can be assoc.with wt gain. Takes tramadol about once per week for RLS. DM: Last YDER!C 6.8. Plan at first visit: Goals: Start using resistance bands. Start tracking with fit bit. Stop eating after supper. (evening snack habit). 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 She was interested in trying ozempic. It was not covered by her insurance and instead metformin d telehealth visit with pierre Russo on 07.29: was keeping eating between noon to 8. Note reviewed. Working on hydration. Calorie goal 1600. telehealth visit with health assistant men's soccer coach Naseem Wild on 07.30. Reviewed. Goals ??? beverage practice - begin eating and drinking by full 30 minutes - sipping vs. Gulping - aim for 64 ounces (maybe try an chani or something to alert you or a water bottle that can financial supervisor to your fitbit or lines with the time on it) ??? increase active minutes goal From 20 minutes to 30 ??? Other (Enter personal goal) Do resistance exercise with bands or weights starting with twice weekly, 5 to 10 minutes per time. ??? Other (Enter personal goal) Tracking with fit bit ??? Other (Enter personal goal) (pt-stated) Interested in trying Mindfulness/Relaxation routines before bedtime at least once a week. ??? potential eating schedule Ideally eating hours would look more like 10-6 or 11-7- just keeping the 8 hour eating window even if it's 12-8p Stop eating after supper Will send you the fasting prescription when Dr. Cai has signed off Today she reports: Things are Going well. Met with statement processor. Had a good visti.Fasting 2 days per week and doing time restricted eating.. On Days of time restricted. eatin 11 to 7 works better. Most days not eating aftersupper. I feel like I am moving better. Increased her activity by 50%. Daily 45 minutes. Walking at a good pace 18 min mile. Taking metformin twice daily. No side effects. Today was 264.3. lbs. Has hoping for more wt loss. Feeling good. Tracking: Is tracking, Getting 1600 divina. 24 hour diet recall:11: Sprouted grain bread, pb and a peach. 1 PM: 3 oz tilapia broiled with lemon. Whole raw red pepper, 16 wheat thins. 4: 6 large blackberries. 7: 2 oz homemade boneless chicen with fajita season , peppers and onions, 100 divina tortilla. 1/2 cup salsa. From [place] pre-visit call: Date: 08/20/2019 [x]? Weight 265.8 [x]? Height 5 5 pt reported []? Blood pressure []? Pulse [x]? Asked about any recent labs/studies []? No [x]? Yes: [place], [place] []? Labs/vitals requested []? Labs/vitals sent for scanning (litigation secretary) and entry (RN) [x]? Requested 24 hour diet recall -------- [x]? Reminded to sign up for [facility] [x]? Reminded to complete [facility] survey if message received to do so []? Other information or concerns: ?? FOR FOLLOW-UP VISITS: from mailed intake worksheet ?? Interval History ?? Have you started on any NEW medications? [x]? No []? Yes: ?? Any NEW medical conditions? [x]? No []? Yes: ?? Any recent hospitalizations? [x]? No []? Yes: ?? Family members with NEW diagnosis of cancer? [x]? No []? Yes: ?? How many hours are you sleeping? []?<=5 []?6 [x]?7 []?8 []?9+ ?? Do you have sleep apnea? [x]? No []? Yes: ? If yes are you on CPAP/BIPAP []? No []? Yes: ? If yes, how many hours are you wearing the mask? []?<=5 []?6 []?7 []?8 []?9+ ?? Stress Scale: []?1 [x]?2 []?3 []?4 []?5 []?6 []?7 []?8 []?9 []?10 NEW symptoms Since last visit are you having any NEW changes in?: ?? Consit: []?More hungry [x]?Less hungry []?More tired during day ?? HEENT: []?Visual changes []?Changes in taste ?? CV: []?Chest pain or discomfort []?Palpitations []?Increased blood pressure []?Increased pulse /heart rate ?? RESP: []?Shortness of breath at rest []?Cough []?Wheezing ?? GI: []?Nausea []?Vomiting []?Constipation []?Abdominal pain ?? : []?Urinary problems ?? Psych: []?Anxiety []?Depression []?Thoughts of hurting yourself or someone else ?? Neuro: []?Feeling light-headed []?Headaches []?Tingling in arms/legs ?? Musc/Skel: []?Joint or muscle problems Patient self-assessment What letter grade (A=doing really well / F = not doing well) would you give yourself for?: ?? Stopping eating after dinner: []?A [x]?B []?C []?D []?E []?F ?? Decreased processed foods: [x]?A []?B []?C []?D []?E []?F ?? 150 minute weekly movement: [x]?A []?B []?C []?D []?E []?F ?? Resistance training 2x/week: [x]?A []?B []?C []?D []?E []?F ?? Taking your medications: [x]?A []?B []?C []?D []?E []?F ?? Consistent bedtimes: []?A [x]?B []?C []?D []?E []?F Daily stress reduction: ?? [x]?A []?B []?C []ctivity: [facility] Initial Responses 08/19/2019 URICA - Readiness Score 10 (Contemplation State) WEL-SF Total Scores 80 PROMIS 6B Scores 46.8 PHQ-2 SubScore 0 (Brief screen negative) GAD2 Subscore 0 (Brief screen negative) PROMIS 10 Physical Scores 50.8 PROMIS 10 Mental Scores 53.3 IPAQ-SF Scores 3 Total REAP-S Scores 37 TFEQ - Uncontrolled Eating (UE) 0 TFEQ-Cognitive Restraint (CR) 77.77 TFEQ-Emotional Eating 0 Food Insecurity Score 2 Boles Category I Result - Boles Category II Result - Boles Category III - Boles Sleep Apnea Total - Schooling - Importance of making a change - Confidence to make change - Most weighed - Age most weighed - Times lost 10 lbs or more - Most weight lost in one attempt - Lost weight how? - Wearing tracking devices helped improve health - Worried food would run out before we got money to buy more Never true Food didnt last; no money to get more Never true Woman with baby weighing > 9lbs at - Sister of brother with diabetes - Have parent with diabetes - Younger than 65 yrs and little or no exercise in a day - VITAL SIGNS: wt at home 264.3 lbs. Last 5 weight values: Wt Readings from Last 5 Encounters: 08/11/19 119.3 kg (263 lb) 07/30/19 120.7 kg (266 lb) 07/23/19 121.6 kg (268 lb) 10/16/18 113.6 kg (250 lb 6.4 oz) 10/02/18 108.4 kg (239 lb) PHYSICAL EXAM: Video visit. Gen: Alert and appropriate, NAD Labs: 05/2019: CBC ok, TSH 3.6. 06/05/2019: Glucose 132. Lytes and creat OK. She says she has montly electrolytes. SUMMARY OF VISIT AND RECOMMENDATIONS: Monisha Das was seen in follow up today and an updated medical, diet and activity review was completed. Additional goals were set for changes in health habits (see below) as was a plan for evaluation and treatment of obesity related co-morbidities. Medical issues and plan: Class 3 Obesity: ?? Medical Management: The patient is currently participating in the following pathway: bariatric. Has made lifestyle changes as above. ?? Will see Sandy 5.29. Asked litigation secretary to put pt on wait list for psychologist. Start wt 268 lbs. Labs slips sent to patient for bariatric labs. Follow up with me 6 weeks. Next visit: Discuss GERD. Ask bariatric questions. Type II DM: Taking metformin twice daily. ?? HLP: Nutrition and activity recommendations to promote healthy weight Hyperlipidemia: Trying to control with diet. I spent a total of 30 minutes with the patient 20 minutes of which were spent in [id number] discussion/counseling re obesity, nutrition and activity as well as obesity related co-morbidities Glenna Martin CMA - 08/21/2019 9:30 AM EDT Glenna Krueger, Can you print the lab slips for the many labs I ordered today and mail to patient? Thanks Mailed labs to pts home address. Glenna Martin CMA documented in this encounter Plan of Treatment Upcoming Encounters Date Type Specialty Care Team Description 02/08/2022 TH Visit (TeleHealth) General Surgery Rylie Rea, CABLE STRETCHER AND TESTER [facility] [place] [address] Keiry Chatterjee, RD [facility] [place] [address] documented as of this encounter Goals Goal [...] (BMI) of 45.0 to 49.9 in adult - P rimary Sustained ventricular tachycardia Paroxysmal ventricular tachycardia documented in this encounter Care Teams Restaurant Expeditor Relationship Specialty Start Date End Date Huyen Ramon DO PCP - General Family Medicine 04/05/[address] [place] [address] documented as of this encounter
--- OUTSIDE RECORDS SUMMARY | 2022-02-03 02:29 | XMS_ITS | Encounter Summary ---
:1970 Author Organization [facility] [place] [address] Care Team Providers Name Role Phone Tristen Huyenjenna Tucker DO Primary Care Provider Encounter Details Date Type Department Care Team Description 11/20/2019 [facility] [place] [address] Social History Tobacco Use Types Packs/Day Years Used Date Never Smoker Smokeless Tobacco: Never Used Alcohol Use Standard Drinks/Week Comments No 0 (1 standard drink = 0.6 oz pure alcoho l) Sex Assigned at Date Recorded Not on file documented as of this encounter Miscellaneous Notes Telephone Encounter - Tigist Vinson - 11/21/2019 10:13 AM EDT Telephone call placed/received to schedule covid 19 testing with patient. Ordering provider: Dr. Garcia Testing Facility: [facility] Date of Testin/25 Time of Testin:00am Symptoms: na Is this the first test for Covid 19 No, cottage negative If no, please list date of previous test, result, and type of test (Molecular, Antigen, Antibody or unknown): Resides in congregate care setting No Employee or Household Member of Employee No Healthcare Worker No Telephone Encounter - Tigist iVnson - 11/20/2019 11:32 AM EDT Lm to schedule covid test Telephone Encounter - Tigist Vinson - 11/20/2019 11:29 AM EDT ----- Message from Keiry Bacon RN sent at 11/19/2019 3:15 PM EDT ----- Regarding: covid testing Pt surgery 11/27 Surgeon, Bryant Needs testing in [place] on 11/24 documented in this encounter Plan of Treatment Upcoming Encounters Date Type Specialty Care Team Description 02/08/2022 TH Visit (TeleHealth) General Surgery Rylie Rea, ORE TESTER [facility] [place] [address] Keiry Chatterjee, RD [facility] [place] [address] documented as of this encounter Goals Goal [...] on filedocumented in this encounter Care Teams Page Designer Relationship Specialty Start Date End Date Huyen Ramon DO PCP - General Family Medicine 04/05/[address] [place] [address] documented as of this encounter
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
--- OUTSIDE RECORDS SUMMARY | 2022-02-03 02:29 | XMS_ITS | Encounter Summary ---
:1970 Author Organization [place] [address] Care Team Providers Name Role Phone Tristen Huyenjenna Tucker DO Primary Care Provider Encounter Details Date Type Department Care Team Description 07/28/2019 Telephone Weight and Wellness at [facility], LORELEI [facility] [address] [place] [address] Social History Tobacco Use Types Packs/Day Years Used Date Never Smoker Smokeless Tobacco: Never Used Alcohol Use Standard Drinks/Week Comments No 0 (1 standard drink = 0.6 oz pure alcoho l) Sex Assigned at Date Recorded Not on file documented as of this encounter Miscellaneous Notes Telephone Encounter - Forest Snyder RN - 07/28/2019 12:02 PM EDT Medication Prior Authorization for Weight and Wellness [facility] [address] [place] [address] [facility] Patient: Monisha Das Patient : 1970 Insurance Company: Payor: [employer] [facility] / Plan: [facility] OPEN ACCESS / Product Type: *No Product type* / Sent via: EMAIL Davis: [id number] Physician: LINDA BETANCUR MD Medication Requested: RYBELSUS Strength: 3MG TABLETS Frequency/Sig: TAKE 3MG BY MOUTH DAILY Disp: 30 Refills: 0 Currently taking: NO Diagnosis for this medication: ICD-10 code: E11.9 Thank you, Forest Snyder RN 07/28/2019 12:02 PM Medication Prior Authorization for Weight and Wellness Weight [facility] [address] [place] [address] DENIED: No reason given. Case/Reference #: [id number] Thank you, Forest Snyder RN 08/01/2019 11:16 AM documented in this encounter Plan of Treatment Upcoming Encounters Date Type Specialty Care Team Description 02/08/2022 TH Visit (TeleHealth) General Surgery Rylie Rea, ENRIQUE [facility] [place] [address] [facility] [place] [address] documented as of this encounter Goals Goal Patient Goal Associated Recent Patient-Stated? Author Type Problems Progress increase Lifestyle On track No Ayala active ilia (08/29/2019 Linda Arcos goal 10:03 AM EDT) Note: Formatting of this note might be d ifferent from the original. From 20 minutes to 30 potential eating Lifestyle On track (08/29/2019 No Linda Betancur MD schedule 10:03 AM EDT) Note: Formatting [...] Other (Enter personal goal) Lifestyle No Linda Betancur MD Note: Formatting of this note might be d ifferent from the original. Do resistance exercise with bands or jesus alberto ghts starting with twice weekly, 5 to 10 minutes per time. Other (Enter personal Lifestyle On track (08/29/2019 No Linda Betancur MD goal) 10:03 AM EDT) Note: Formatting [...] on filedocumented in this encounter Care Teams Figurine Maker Relationship Specialty Start Date End Date Huyen Ramon DO PCP - General Family Medicine 04/05/[address] [place] [address] documented as of this encounter
--- OUTSIDE RECORDS SUMMARY | 2022-02-03 02:29 | XMS_ITS | Encounter Summary ---
:1970 Author Organization [facility] [place] [address] Care Team Providers Name Role Phone Tristen Huyenjenna Tucker DO Primary Care Provider Reason for Visit Auth/Cert Specialty Diagnoses / Procedures Referred By Contact Refer red To Contact Diagnoses Morbid obesity MORBID OBESITY Procedures PRO LAP GASTRIC BYPASS/LUIS ANTONIO-EN-Y @LAPAROSCOPIC GASTROPLASTY W/ LUIS ANTONIO-EN-Y CONSTRUCTION (WRVU 29.4) Referral ID Status Reason Start Date Expiration Date Visits Requ ested Visits Authorized [id number] 1 1 Encounter Details Date Type Department Care Team Description 11/28/2019 Anesthesia Event Main Operating Room Eva Delvalle MD [facility] [place] [address] [facility] Lulu Durham [facility] [place] [address] [place] [address] Anesthesia Record Procedure Summary Procedure Name Responsible Anesthesia Start Anesthesia Stop Anesthesiologist Time Time @LAPAROSCOPIC Eva Foy MD 11/28/19 1309 11/28/19 164 5 GASTROPLASTY W/ LUIS ANTONIO-EN-Y CONSTRUCTION (WRVU 29.4) (N/A Abdomen) Events Date Time Event Comment 11/28/2019 1231 1309 AN Verify 1309 Start 1309 An Start Data 1319 An Induction 1322 An Intubation 1333 Anesthesia Ready 1523 Quick Note Boujie (30) adva nced per surgeon request. 1552 Quick Note Egd done by surg uriel 1644 Extubation/LMA Out 1644 an stop data 1644 Recovery or ICU Handoff Patient care was transferred to the destination unit staff after review of the patient's medica l history, current anesthetic/surgi divina status and plan, according to the Provider Handoff Checklist. 1645 Stop Name Total Midazolam 2 mg fentaNYL 100 mcg IV Lidocaine 100 mg Propofol 200 mg Rocuronium 110 mg Ondansetron 8 mg Dexamethasone 4 mg Neostigmine 5 mg Glycopyrrolate 0.8 mg ceFAZolin (Ancef) 2 g in dextrose 5% 100 mL infusion 2 g Dexmedetomidine 20 mcg Propofol INF 1,221.62 mg HYDROmorphone 1 mg lactated ringers infusion 1,400 mL Lactated Ringers 1,400 mL Agents Name O2 Air N2O Sevoflurane (et) Blood No blood administrations on file. Lines, Drains, and Airways Type Details Placement Removal PIV 11/28/19; 1147; cephalic 11/28/19 1147 by 1454 by vein (lateral side of arm), Madison Ramirez RN Kwasnaza, Kevin J, RN right; ztoc-gyc-hokiyb catheter system; 20 gauge, 1 in length; Rosendo Malik; intradermal injection, distraction, tolerated well, appears comfortable, age-appropriate response; 2 (Ivanna Yan RN); catheter/device intact, removed per policy/procedure, no longer indicated; 11/29/19; 1454 ETT Mask Ventilation: Easy (1); 11/28/19 1322 by Pat el, 11/28/19 1644 by ETT Type: Cuffed; ETT Size: Shreena K, PHP ARCHITECT Eckert l, Shreena K, PHP ARCHITECT 7.5 mm; Mac Blade: 3; Notes: Asleep; Attempts: 1; Laryngoscopy Grade: 3; ETT Placement Verified By: Auscultation, Capnometry, Visual; Secured at Teeth: 21 cm; Inserted by: spatel, orthodontic lab technician PIV 11/28/19; 1326; basilic vein 11/28/19 1326 by Pa tel, 11/29/19 1500 by (medial side of arm), left; KERRIE Odell Sharon M, RN [id number]-pnemui catheter system; 18 gauge; 1; metacarpal vein (top of hand), right, no redness, ecchymosis, warmth, swelling, pain, drainage; no longer indicated; 11/29/19; 1500 Incision 11/28/19; 1348; abdomen; 11/28/19 1348 by Rice, 11/28/21 1715 by laparoscopic punctures LORELEI Brannon D ierdre L (specify) (6 trocar sites); 11/28/21 (LDA cleanup utility RA#[id number]); 1715 (LDA cleanup utility RA#[id number]) NG/OG Tube 11/28/19; 1358; orogastric; 11/28/19 1358 by Pat el, 11/28/19 1420 by 18 Fr; mouth; Secured; KERRIE Odell Sh reena K, CRNA 11/28/19; 1420 documented in this encounter Social History Tobacco Use Types Packs/Day Years Used Date Never Smoker Smokeless Tobacco: Never Used Alcohol Use Standard Drinks/Week Comments No 0 (1 standard drink = 0.6 oz pure alcoho l) Sex Assigned at Date Recorded Not on file documented as of this encounter OR Notes Anesthesia Postprocedure Evaluation - Eva Foy MD - 11/28/2019 6:34 PM EDT Department of Anesthesiology Post-procedure Note Patient: Monisha Das Procedure Summary Date: 11/28/19 Room / Location: [facility] OR [address] [place] [address] MAIN OR Anesthesia Start: 1309 Anesthesia Stop: 1645 Procedures: @LAPAROSCOPIC GASTROPLASTY W/ LUIS ANTONIO-EN-Y CONSTRUCTION (WRVU 29.4) (N/A Abdomen) EGD, UPPER GI ENDOSCOPY (N/A ) Diagnosis: (MORBID OBESITY) Surgeon: Nusrat Garcia MD Responsible Provider: Eva Foy MD Anesthesia Type: general ASA Status: 3 All Anesthesia Providers: Anesthesiologist: Yuri Garner MD; Eva Foy MD PHP ARCHITECT: Va Grace CRNA; Lulu Durham CRNA Vitals Value Taken Time BP 139/75 11/28/19 1800 Temp 36.3 ??C (97.3 ??F) 11/28/19 1646 Pulse 63 11/28/19 1828 Resp 8 11/28/19 1828 SpO2 96 % 11/28/19 1833 Pain Level 0 11/28/19 1647 Vitals shown include unvalidated device data. Patient Location: PACU/[facility] Level of Consciousness: Awake and Alert Pain Management: Satisfactory Analgesia PONV: None Cardiovascular Status: At Baseline and Hemodynamically Stable Respiratory Status: At Baseline and Room Air Postoperative Fluid Status: Intravascular EUvolemia Possible Anesthetic Complications: NONE apparent at time of evaluation Final Primary Anesthesia Type: General (The anesthetic type performed was the same as planned.) Comments: Pt doing well , still sleepy in PACU EAV FOY MD Anesthesia Preprocedure Evaluation - Yuri Garner MD - 11/28/2019 7:19 AM EDT Pre-Anesthesia Evaluation for: Monisha Das a 48 y.o. female. Procedure(s): @LAPAROSCOPIC GASTROPLASTY W/ LUIS ANTONIO-EN-Y CONSTRUCTION (WRVU 29.4) Patient Active Problem List Diagnosis ??? Neural foraminal stenosis of cervical spine ??? Lymphedema ??? Bunion ??? Edema of lower extremity ??? Flash pulmonary edema ??? Hypomagnesemia ??? Steatosis of liver ??? Class 3 severe obesity due to excess calories with serious comorbidity and body mass index (BMI)of 45.0 to 49.9 in adult ??? Type 2 diabetes mellitus without complication, without long-term current use of insulin ??? History of surgical procedure c section x 3 Endometrial ablation x 2 Tonsillectomy. ??? Sensorineural hearing loss (SNHL) of both ears ??? Hypokalemia ??? Nontraumatic tear of rotator cuff ??? Diarrhea ??? Gastroesophageal reflux disease with esophagitis ??? Serrated adenoma of colon ??? Restless legs syndrome ??? Essential hypertension ??? Calculus of kidney ??? Classical migraine with intractable migraine ??? Alopecia areata ??? Depressive disorder Past Medical History: Diagnosis Date ??? GERD (gastroesophageal reflux disease) Past Surgical History: Procedure Laterality Date ??? PRO COLONOSCOPY, DIAGNOSTIC N/A 12/05/2017 COLONOSCOPY, DIAGNOSTIC performed by Luther Narayan MD at [facility] ENDOSCOPY ??? PRO ENDOSCOPIC US EXAM, ESOPH N/A 12/05/2017 UPPER EUS- ENDOSCOPIC ULTRASOUND performed by Luther Narayan MD at [facility] ENDOSCOPY ??? PRO UPPER GI ENDOSCOPY, BIOPSY N/A 12/05/2017 EGD WITH BIOPSY (WRVU 2.49) performed by Luther Narayan MD at [facility] ENDOSCOPY ??? TONSILLECTOMY Social History Tobacco Use ??? Smoking status: Never Smoker ??? Smokeless tobacco: Never Used Substance Use Topics ??? Alcohol use: No Social History Substance and Sexual Activity Drug Use No Allergies Allergen Reactions ??? Atropine CIS - redness and bodily swelling ??? Eplerenone ??? Iron Shortness Of Breath Experienced swelling and shortness of breath after an infusion. This was dose related and she has had infusions since without issue. ??? Spironolactone Rash Medications: MAR and/or home medications have been reviewed. Physical Exam: No data found. There is no height or weight on file to calculate BMI. Airway Assessment: Mallampati: II TM distance: >3 FB Neck ROM: full Cardiovascular Assessment: Pulmonary Assessment: Dental Assessment: - normal exam Misc Assessment: IV access: Peripheral line Anesthesia Plan: ASA 3 general, with a(n) intravenous induction 48 y.o. year old female, 121kg (BMI 45) fro laparsocopic Luis Antonio-en-Y gastric bypass surgery. PMH includes Morbid obesity with established obesity-related chronic disease including hypertension (on BB, HCTZ, ERROL-I, amiloride), type 2 diabetes (metforming), osteoarthritis, GERD (PPI), moderate limitations in activities of daily living, migraines, depression (wellbutrin). No LAUREN H/o PONV Plan: GETA, antiemetics/prop infusion, 2nd PIV. The patient verbalized understanding of the anesthesia plan including risks and alternatives and agreed to proceed. All questions were answered. Dickson Garner MD. Region - Other Informed Consent: Anesthetic plan and risks discussed with patient and spouse. Plan discussed with PHP ARCHITECT and attending. PAT Clinic Note documented in this encounter Plan of Treatment Upcoming Encounters Date Type Specialty Care Team Description 02/08/2022 TH Visit (TeleHealth) General Surgery Rylie Rea, DIRECTOR OF RETAIL OPERATIONS [facility] [place] [address] Keiry Chatterjee, SAM [facility] [place] [address] documented as of this encounter Goals Goal [...] Diagnoses Not on filedocumented in this encounter Administered Medications Inactive Administered Medications - up to 3 most recent administrations Medication Order MAR Action Action Date Dose Rate Site ceFAZolin (Ancef) 2 g in dextrose 5% Given 11/28/2019 1:23 PM ED T 2 g 100 mL infusion 2 g, Intravenous, ONCE, 1 dose, On Sun11/28/19 at 1200, Administer over 30 Minutes, Indication for (Active or Suspected): Prophylaxis dexamethasone (Decadron) injection Given 11/28/2019 1:58 PM EDT 4 mg PRN, Starting on Sun11/28/19 at 1358, Until Sun11/28/19 at 1645, Anesthesia Intra-op, Routine dexmedetomidine (PRECEDEX) injection Given 11/28/2019 2:45 PM EDT 4 mcg PRN, Starting on Sun11/28/19 at 1335, Until Sun11/28/19 at 1645, Anesthesia Intra-op, Routine Given 11/28/2019 2:21 PM EDT 4 mcg Given 11/28/2019 2:06 PM EDT 4 mcg fentaNYL 50 mcg/mL multi-dose injection Given 11/28/2019 1:55 PM EDT 50 mcg PRN, Starting on Sun11/28/19 at 1319, Until Sun11/28/19 at 1645, Anesthesia Intra-op, Routine Given 11/28/2019 1:19 PM EDT 50 mcg glycopyrrolate (ROBINUL) multi-dose inje ction Given 11/28/2019 4:08 PM EDT 0.8 mg PRN, Starting on Sun11/28/19 at 1608, Until Sun11/28/19 at 1645, Anesthesia Intra-op, Routine HYDROmorphone (DILAUDID) injection Given 11/28/2019 3:18 PM EDT 0.2 mg PRN, Starting on Sun11/28/19 at 1434, Until Sun11/28/19 at 1645, Anesthesia Intra-op, Routine Given 11/28/2019 2:45 PM EDT 0.4 mg Given 11/28/2019 2:34 PM EDT 0.4 mg lactated ringers infusion New Bag 11/28/2019 3:26 PM EDT 1,000 mL, at 100 mL/hr, Intravenous, CONTINUOUS, Starting on Sun11/28/19 at 1200, Until Sun11/28/19 at 1724, Day of Surgery (Day of Procedure) New Bag 11/28/2019 2:46 PM EDT New Bag 11/28/2019 11:49 AM EDT 1,000 mLs 100 mL/hr lactated ringers infusion New Bag 11/28/2019 3:57 PM EDT CONTINUOUS PRN, Starting on Sun11/28/19 at 1333, Until Sun11/28/19 at 1645, Anesthesia Intra-op New Bag 11/28/2019 1:33 PM EDT lidocaine (PF) (XYLOCAINE) 100 mg/5 mL (2 %) Given 1:19 PM EDT 100 mg injection PRN, Starting on Sun11/28/19 at 1319, Until Sun11/28/19 at 1645, Anesthesia Intra-op, Routine midazolam (PF) (VERSED) multi-dose injec tion Given 11/28/2019 1:09 PM EDT 2 mg PRN, Starting on Sun11/28/19 at 1309, Until Sun11/28/19 at 1645, Anesthesia Intra-op, Routine neostigmine (BLOXIVERZ) injection Given 11/28/2019 4:08 PM EDT 5 mg PRN, Starting on Sun11/28/19 at 1608, Until Sun11/28/19 at 1645, Anesthesia Intra-op, Routine ondansetron (ZOFRAN) injection Given 11/28/2019 4:10 PM EDT 4 mg PRN, Starting on Sun11/28/19 at 1355, Until Sun11/28/19 at 1645, Anesthesia Intra-op, Routine Given 11/28/2019 1:55 PM EDT 4 mg propofol (DIPRIVAN) 10 mg/mL bolus injection Given 1:19 PM EDT 200 mg (Anesthesia) PRN, Starting on Sun11/28/19 at 1319, Until Sun11/28/19 at 1645, Anesthesia Intra-op propofol (DIPRIVAN) Rate/Dose 11/28/2019 3:32 60 mcg/kg/min 40.6 mL/ hr infusion Change PM EDT CONTINUOUS PRN, Starting on Sun11/28/19 at 1320, Until Sun11/28/19 at 1645, Anesthesia Intra-op, Routine Rate/Dose Change 11/28/2019 2:34 PM EDT 75 mcg/kg/min 50.8 mL/hr Rate/Dose Change 11/28/2019 2:06 PM EDT 70 mcg/kg/min 47.4 mL/hr rocuronium (ZEMURON) multi-dose injectio n Given 11/28/2019 3:16 PM EDT 10 mg PRN, Starting on Sun11/28/19 at 1319, Until Sun11/28/19 at 1645, Anesthesia Intra-op, Routine Given 11/28/2019 1:19 PM EDT 100 mg documented in this encounter Care Teams Code Number Stamper Relationship Specialty Start Date End Date Huyen Ramon DO PCP - General Family Medicine 04/05/18 [address] [place] [address] documented as of this encounter
--- OUTSIDE RECORDS SUMMARY | 2022-02-03 02:29 | XMS_ITS | Encounter Summary ---
:1970 Author Organization [facility] [place] [address] Care Team Providers Name Role Phone LdHuyen resendez Caitlin MOORE Primary Care Provider Reason for Visit Reason Comments Follow-up s/p nerissa surg 11/29/19 Encounter Details Date Type Department Care Team Description 03/23/2020 Office Visit General Surgery at Quintin Rea, ENRIQUE [facility] [place] [address] Post-resection malabsorption; [facility] Keiry Chatterjee, RD [facility] [place] [address] S/P bariatric surgery; [facility] [place] [address] Social History Tobacco Use Types Packs/Day Years Used Date Never Smoker Smokeless Tobacco: Never Used Alcohol Use Standard Drinks/Week Comments No 0 (1 standard drink = 0.6 oz pure alcoho l) Sex Assigned at Date Recorded Not on file documented as of this encounter Last Filed Vital Signs Vital Sign Reading Time Taken Comments Blood Pressure 124/87 03/23/2020 10:59 AM EST Pulse 72 03/23/2020 10:59 AM EST Temperature - - Respiratory Rate - - Oxygen Saturation 99% 03/23/2020 10:59 AM EST Inhaled Oxygen Concentration - - Weight 88.7 kg (195 lb 8 oz) 03/23/2020 10:59 AM EST Height 162.6 cm (5' 4) 03/23/2020 10:59 AM EST Body Mass Index 33.56 03/23/2020 10:59 AM EST documented in this encounter Patient Instructions Patient InstructionsShena Keiry D, RD - 03/23/2020 11:00 AM EST [facility] program support specialist Yolanda [phone] and Yadira [phone] Dietitians: [phone] Surgeons/ nurse practitioners: [phone] Nurse line: [phone] Dear Monisha, Below please find a summary of our discussion/recommendations from your visit as well as some other bariatric surgery related information. Testing: If you are due to have lab work today please have it done when you are able. We will plan to follow up with you once your results are available and make additional recommendations re: your vitamins and supplements. Please call/send my [employer] message if you have not heard from us within 2 weeks ofhaving labs work done. In the future, it would be helpful if you can have your lab work drawn a couple days before your visit so the results are available at the time of your follow up visit Next visit: Follow up visits are done at 4 months and 12 months after surgery and yearly thereafter.High risk patients are evaluated on a more frequent basis. Please call [phone] if you do not receive an appointment by 3-4 weeks prior to the expected visit. Vitamins: The following vitamins are recommended: ??? Multivitamins with minerals - Bariatric Fusion 1 pill 4 x daily ??? Vitamin D if recommended based on lab results Nutrition recommendations: - Continue to work toward consistently meeting protein goals. Consider having a protein drink or other high protein snack daily. - Great work meeting fluid goals. - Your Daily Goals: ?? 1,000-1,200 calories per day (300 calories per meal, 100 calories per snack, 1-2 snacks per day) ?? 60 grams of protein per day (20 grams per meal) ?? 48-64 oz of non-caloric and hydrating fluids per day (6-8, 8 oz cups) ?? Do not drink with meals- pushes food through more quickly, can cause upset stomach Activity: Continue regular exercise ??? Aim for 30 minutes of exercise daily, 5 days a week of both cardio and strength training exercises. Skinfold care: 1. Cleanse area with soap and water. 2. Blow dry area on low setting with executive chairman of the board. 3. Apply absorbent powder such as Gold Juarez and Desinex 4. Apply cotton strips (such as strips from old sheets) or larger size cotton underwear folded beneath skin folds to act as a wick. Do not apply geraldine cloth toweling which can cause further irritation 5. Try combination of over the counter hydrocortisone cream with over the counter antifungal cream such as lotrimin twice a day for 2 weeks. 6. If your symptoms do not improve you may require prescription of anti-fungal cream/powder. 7. Follow up with PCP if symptoms worsen/fail [...] with doses higher than 2 capfuls twice daily On days with loose stools, we recommend [...] difficulty keeping food or fluid down. Alcohol: should be used sparingly, no more than one drink per occasion. Alcohol is a source of emptycalories and can cause ulcers and vitamin and mineral deficiencies. Alcohol is toxic to the liver and is absorbed more quickly after surgery, it stays in the system longer. Studies have noted that there is an increased risk of alcohol dependence after bariatric surgery. Alcohol is not recommended until at least1 year post surgery, and after goal weight has been achieved f non-prescribed drugs and treet drugs is unsafe Anti-inflammatory medications such as Ibuprofen (Advil), Aleve (Naproxen), Excedrin, should be used sparingly after gastric bypass, since they increase the risk of ulcer and bleeding. A bone mineral density scan (DEXA) is recommended every 2 years after bariatric surgery. Please schedule this study through your primary care providers office. Potential lifetime risks of gastric bypass include risk of ulcer, which is increased with alcohol and antiinflammatory medications and internal hernia (less than 5%), which may be increased with higherthan predicted weight loss Sleep Apnea: If you have a history of sleep apnea and have a CPAP/BiPAP, please be sure to follow upwith the sleep center to confirm your pressures and determine if continued use of CPAP/BiPAP is recommended. Call us: ??? If you have concerns. ??? If you have unexplained abdominal pain. ??? if you see blood in your stool or vomit blood ??? If you have prolonged vomiting Post Surgery Support Group: Our post surgery support group meets at [facility] on the first Sunday of every month from 1:00 PM-2:00 PM. Nutrition and Activity apps- Baritastic, My Fitness Pal, Lose It, My Plate Internet resources: www.[employer] wwwAnhui [employer] www.Ahomet[employer]Kyriba [place].[employer] www.Abigail Stewart.[employer]/blog [facility] facebook page: [email or web address]/[facility] NORMANBariatricSurgery Books & Magazines: - Recipes for Life After Weight Loss Surgery by Kassandra Carrasco - Shrink Yourself by Dr Jay Jay Levine - Eating Well - www.GetSocial.[employer] - Cooking Light- www.cookinglight.[employer] Anxiety: The Happiness Trap by Faustino Gallo The Mindfulness and acceptance workbook for anxiety By Blaine Simpson. Mindful eating: What are you Hungry For? By Mao Rodriguez The Mindful Diet by Shauna Truong and the [facility] group. Emotional eating: End Emotional Eating by Keiry Rondon Calming the Emotional Storm Christa Poole documented in this encounter Progress Notes Keiry Chatterjee RD - 03/23/2020 11:00 AM EST Bariatric Surgery Program Nutrition Progress Note Encounter Type: follow up SUBJECTIVE: Topics Discussed/Patient Concerns: ?? No concerns. 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 ?? Social support:??Jayne, kids [...] ??03/23/20 ??195.5# ??60% 33.6 4 months post-op [place] Body Weight (based on BMI of 25):??148# 30-70% Excess Weight Loss:??184-232#; 50% Excess Weight Loss:??208# ? MEDICATIONS: ?? Vitamin/Mineral Supplements (reported by patient): Supplement Type Brand/Form Dosage/Amount Frequency Comments Multivitamin Bariatric Fusion 1 pill 4 x daily ?? Calcium ? Vitamin B12 ? Iron ? Vitamin D3 ? Food Allergies/Intolerances: Some artificial sweeteners Tracking Intake: periodically tracks; if has weight stall will start tracking 24-Hour Intake: Breakfast Egg (1) AM Snack Lunch hummus and a few slices pepper; sometimes does eduarage cheese or tuna or egg salad PM Snack Dinner 2 oz chicken and cooked vegetables; sometimes will have 1/2 baked potato HS Snack Protein/ grams per day: 25-30 g yesterday Hydrating fluids- oz/ day: 48+ oz water Soda: none ETOH: none Caffeine: 1 cup coffee w oatmilk Sweets: Occ. Has always kept sweets to small portions Meals per day: 3 ?? Has had dumping syndrome: None. sm amount of chocolate cream pie at . Not really a sweets person. Keeps portions small. ?? In the past month, pt has vomited/regurgitated: no vomiting in 6 weeks. ?? Constipation/Diarrhea: none Exercise: it's been going well. 45 minutes 4-5 days per week walking. ASSESSMENT: Summary of Weight Loss: Patient's percent excess weight loss is 60%. Monisha is tolerating the diet. She is meeting fluid goals however continues to have difficulties consistently meeting protein needs. Tolerance to protein isimproving AEB no vomiting x 6 weeks. Reviewed supplements. She is walking regularly. NUTRITION INTERVENTION & MONITORING: ?? Provided support/encouragement and reinforced importance of meeting nutritional goals. - Continue to work toward consistently meeting protein goals. Consider protein drink or other high protein snack daily. - Great work meeting fluid goals. ?? Reviewed nutrition and vitamin and mineral supplement recommendations. ??? Multivitamins with minerals - Bariatric Fusion 1 pill 4 x daily ??? Vitamin D if recommended based on lab results ?? Written recommendations provided. Patient agreed with these and verbalized adequate understanding. ?? Evaluation by nurse practitioner today. Rylie Rea APRN - 03/23/2020 11:00 AM EST [place] [address] Reason for visit: Bariatric Surgery follow up visit Subjective: Monisha Das is s/p laparoscopic Nadia-en-Y gastric bypass??d/t GERD, on 11/28/[address] Garcia, she presents today for 4 month post bariatric surgery follow up. She had been struggling to meether nutritional/protein requirements, but seems to be getting better. Tolerating more foods now. No v omiting in > 6 weeks. Doing fine getting in adequate fluids. Taking Fusion-bariatric multivitamin two pills twice daily (which includes Vit B12 560 mcg, Vit D3 3,000 IU, Calcium 1200 mg, Iron 45mg daily) Interim Health:She is struggling with her depression lately, she has been following with PCP, and started on effexor 2 weeks ago. She has reconnected with her therapist. Otherwise her health has been stable overall. No surgeries, hospitalizations, or bariatric related ED visits since the last visit. No kidney stones or atraumatic fractures. Pt follows with PCP/specialist for disease management and age specific screening. Obesity related medical issues: ? Diabetes ??[x]?Yes, ??stopped metformin?[]?Not a baseline issue ? HTN: ?[x]?Yes, decreased her meds, taking 3 meds once daily from 4 meds twice daily. ?[]?Not a baseline issue ? GERD: [x]?Yes, asymptomatic on PPI?[]?Not a baseline issue ? Hyperlipidemia: [x]?Yes, not on meds ??[]?Not a baseline issue ? o LAUREN: []?Yes, ??[x]?Not a baseline issue ? o Musculoskeletal issues: [x] Yes Improvement in mobility with wt loss/surgery [] Not a baseline issue Other: [x] fatty liver Patient Active Problem [...] ??? Neural foraminal stenosis of cervical spine M99.71 ??? Morbid obesity E66.01 Review of Systems Constitutional: energy level is good , restless leg is stable on meds, no pica, + alopecia-baseline issue (wears wig) Neuro: no c/o paresthesias. No changes in memory CV: no chest pain or palpitations. Pulm: denies SOB or cough. GI: denies bloating, abdominal pain. No recent nausea/vomiting. No diarrhea or constipation. 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 S/p tubal ligation Skin: No c/o redundant skin or skin fold rashes. Health Habits: Tobacco/Nicotine use: None ETOH use: None None NSAID use. Social History: lives with her partner Jayne. Monisha has 4 children(19, 15, and 24 yo twins, Her partner has 2 children (18 yo and 15 yo). 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 Dietary history/ exericse/ activity level: See dietitian note from today's visit for complete dietary evaluation. Meds and Allergies reviewed. Complications summary: Early none Late - ? WT (lbs) BMI HT %EBW lost Pre- OP Visit 06/05/19 268 45 64.5 ?? Post-op WT (lbs) BMI ? 12/15/19 229 38.75 ?? 32% ??03/23/20 ??195.5 ??33.56 ?? 60% Objective: BP 124/87 (BP Location (NBP): Left arm, Patient Position: Sitting, BP Cuff Sizes: Adult (25-34 cm)) Pulse 72 Ht 162.6 cm (5' 4) Wt 88.7 kg (195 lb 8 oz) SpO2 99% BMI 33.56 kg/m?? Physical Exam Gen: Alert, pleasant, NAD, appears well Abd: soft, non-distended, non-tender. Lower extremities: no edema or tenderness (B) Skin: excess skin noted abdomen. Skin is warm and dry. No rash noted on exam today. Psychiatric: normal mood and affect. Assessment and Plan: ??? 4 mo s/p laparoscopic Nadia-en-Y gastric bypass with 60 % of excess body weight lost, o doing well from a bariatric surgery perspective, overall pleased with wt loss o discussed dietary considerations and strategies for continued success . o Reviewed importance of meeting nutritional/protein/fluid requirements, tracking food and food choices, pairing proteins with carbs, being careful to avoid eating too fast, eating too much, drinking with meals, or not chewing well enough. o Patient has met with lang interpreter today, please see note for additional details/dietary evaluation. ??? Obesity related co-morbidities are improved/stable overall. o GERD: discussed how to taper down/off PPI. ?? Advised that Ursodiol can be discontinued at 6 months post-operatively ?? Risk for vitamin deficiencies: ?? See lang interpreter note re: recommendations regarding vitamin and mineral supplementation. ?? Will check iron studies, folate, Vit D, Vit B 1, Vit B 12, hemogram, CMP, PTH, Lipids, A1c o Will make additional recommendations once lab results are available. ??? Pt reminded that a bone mineral density scan (DEXA) is recommended every 2 years after bariatricsurgery. Recommended f/u with primary care provider to check if up to date. RTC in 8 months for 1 year post bariatric surgery follow up visit, with labs. Call/rtc sooner prn with questions/concerns, unexplained abdominal pain, prolonged nausea, vomiting or inability to hydrate, questions or concerns. Bariatric Program Summary report is availabe for patient's review via e- Rylie Rea APRN RECOMMENDED BARIATRIC SURGERY PROGRAM [...] If labwork is done by the primary healthcare specialist: please send a copy to the Bariatric Surgery Program, General Surgery Clinic, [facility], or fax [phone] documented in this encounter Plan of Treatment Upcoming Encounters Date Type Specialty Care Team Description 02/08/2022 TH Visit (TeleHealth) General Surgery Rylie Rea APRN [facility] [place] [address] Keiry Chatterjee, SAM [facility] [place] [address] documented as of this encounter Goals Goal [...] Date/Time Associated Comments Diagnosis HC PARATHYROID Routine 03/23/2020 12:18 Post-resection Results for this HORMONE(PTH INTACT PM EST malabsorption procedure are in S/P bariatric the results surgery section. Disorder of iron metabolism HC HEMOGRAM Routine 03/23/2020 12:18 Post-resection Results f or this PM EST malabsorption procedure are in S/P bariatric the results surgery section. Disorder of iron metabolism HC PCH THIAMIN Routine 03/23/2020 12:18 Post-resection Results for this LVL(VITAMIN B1) PM EST malabsorption procedure are in [facility] S/P bariatric the results surgery section. Disorder of iron metabolism HC IRON BINDING Routine 03/23/2020 12:18 Post-resection Result s for this CAPACITY PM EST malabsorption procedure are in S/P bariatric the results surgery section. Disorder of iron metabolism HC VENIPUNCTURE Routine 03/23/2020 12:18 Post-resection Result s for this PM EST malabsorption procedure are in S/P bariatric the results surgery section. Disorder of iron metabolism HC HEMOGLOBIN A1C Routine 03/23/2020 12:18 Post-resection Resu lts for this PM EST malabsorption procedure are in S/P bariatric the results surgery section. Disorder of iron metabolism HC FOLATE, SERUM Routine 03/23/2020 12:18 Post-resection Resul ts for this PM EST malabsorption procedure are in S/P bariatric the results surgery section. Disorder of iron metabolism HC FERRITIN, SERUM Routine 03/23/2020 12:18 Post-resection Res ults for this PM EST malabsorption procedure are in S/P bariatric the results surgery section. Disorder of iron metabolism HC VITAMIN B12 SERUM Routine 03/23/2020 12:18 Post-resection R esults for this PM EST malabsorption procedure are in S/P bariatric the results surgery section. Disorder of iron metabolism COMPREHENSIVE Routine 03/23/2020 12:18 Post-resection Results for this METABOLIC PANEL PM EST malabsorption procedure are in (NON-FASTING) S/P bariatric the results surgery section. Disorder of iron metabolism documented in this encounter Results Vitamin D, 25-Hydroxy (03/23/2020 12:18 PM EST) Patholo gist Method Time Signature 25-OH Vit D 44 21 - 100 [facility] Total ng/mL [facility] 25-OH Vit D Sufficient [facility] LABORATORY Specimen Anatomical Collection Method Collection Time Receive d Time (Source) Location / / Volume Laterality Blood specimen 03/23/2020 12:18 0 (specimen) PM EST 12:28 PM EST Resulting Agency Comment Spec In Lab Rylie Rea APRN CHEMISTRY ORDERABLES Performing Organization Address City/State/[place] [address] Vitamin B12 (03/23/2020 12:18 PM EST) P athologist Signature Vitamin B-12 1,230 232 - 1,245 [facility] pg/mL [facility] Specimen Anatomical Collection Method Collection Time Receive d Time (Source) Location / / Volume Laterality Blood specimen 03/23/2020 12:18 0 (specimen) PM EST 12:28 PM EST Resulting Agency Comment Spec In Lab Rylie Rea APRN CHEMISTRY ORDERABLES Performing Organization Address City/[facility]/ZIP Code Phon e Number [address] PTH (03/23/2020 12:18 PM EST) P athologist Signature PTH 65 15 - 65 [facility] pg/mL [facility] Specimen Anatomical Collection Method Collection Time Receive d Time (Source) Location / / Volume Laterality Blood specimen 03/23/2020 12:18 0 (specimen) PM EST 12:28 PM EST Resulting Agency Comment Spec In Lab Rylie Rea APRN CHEMISTRY ORDERABLES Performing Organization Address [place]/[facility] Phon e Number [address] Vitamin B1, whole blood (03/23/2020 12:18 PM EST) athologist Signature Vit B1 Lvl WB 128 70 - 180 [facility] nmol/L [facility] Comment: ADDITIONAL INFORMATIO N This test was developed and its performa nce characteristics determined by [facility] in a manner co nsistent with CLIA requirements. This test has not been yoav ared or approved by the U.S. Food and Drug Administration. Test Performed by: [facility] [address] [address] Orthodontic Lab Technician: Jun Blair M.D. Ph. D.; CLIA# [id number] Specimen Anatomical Collection Method Collection Time Receive d Time (Source) Location / / Volume Laterality Blood specimen 03/23/2020 12:18 0 4:19 (specimen) PM EST PM EST Resulting Agency Comment Spec In Lab Rylie Rea APRN CHEMISTRY ORDERABLES Performing Organization Address City/[facility]/ZIP [facility] Phon e Number [address] Iron and TIBC (03/23/2020 12:18 PM EST) athologist Signature Iron 56 30 - 150 [facility] mcg/dL [facility] TIBC 257 250 - 450 [facility] m[facility]/dL [facility] Iron Saturation 22 20 - 50 % [facility] Specimen Anatomical Collection Method Collection Time Receive d Time (Source) Location / / Volume Laterality Blood specimen 03/23/2020 12:18 0 (specimen) PM EST 12:28 PM EST Resulting Agency Comment Spec In Lab Rylie Rea APRN CHEMISTRY ORDERABLES Performing Organization Address City/[facility]/ZIP Code Phon e Number [address] Folate, serum (03/23/2020 12:18 PM EST) athologist Signature Folate Lvl 18.0 4.8 - 24.2 [facility] ng/mL [facility] Specimen Anatomical Collection Method Collection Time Receive d Time (Source) Location / / Volume Laterality Blood specimen 03/23/2020 12:18 0 (specimen) PM EST 12:28 PM EST Resulting Agency Comment Spec In Lab Rylie Rea APRN CHEMISTRY ORDERABLES Performing Organization Address City/[facility] Phon e Number [address] Hemogram (03/23/2020 12:18 PM EST) athologist Signature WBC 7.7 4.0 - 9.5 [facility] x10(3)/[facility] LABORATORY RBC 5.10 4.00 - [place] [facility] 5.21 [facility] x10(6)/[facility] LABORATORY Hemoglobin 14.7 11.7 - [place] [facility] 15.5 gm/dL [facility] Hematocrit 43.0 35.7 - [place] [facility] 45.8 % [facility] MCV 84.3 82.6 - [facility] 94.4 fL [facility] MCH 28.8 27.1 - [place] [facility] 32.0 pg [facility] MCHC 34.2 31.7 - [place] 35.0 gm/dL [facility] Platelets 339 145 - 357 [facility] x10(3)/[facility] LABORATORY RDWSD 39.0 37.0 - [place] ANTHONY 46.0 [facility] LABORATORY RDWCV 12.6 11.5 - [place] ANTHONY 14.1 % [facility] MPV 9.7 7.6 - 12.[address] [facility] [facility] [address] LABORATORY nRBC % Auto 0.0 % [facility] LAB[facility] nRBC Abs Auto 0.000 0.000 - [place] ANTHONY 0.000 [facility] x10(3)/[facility] LABORATORY Specimen Anatomical Collection Method Collection Time Receive d Time (Source) Location / / Volume Laterality Blood specimen 03/23/2020 12:18 0 (specimen) PM EST 12:28 PM EST Resulting Agency Comment Spec In Lab Rylie Rea APRN HEMATOLOGY ORDERABLES Performing Organization Address City/[facility]/[place] [address] Ferritin (03/23/2020 12:18 PM EST) athologist Signature Ferritin 94 15 - 150 [facility] ng/mL [facility] Comment: Pediatric reference ranges not verified at [facility], interpret with caution. Reference ranges for females greater keaton n 50 years of age approach values for men, i.e., 30-400 ng/mL. Specimen Anatomical Collection Method Collection Time Receive d Time (Source) Location / / Volume Laterality Blood specimen 03/23/2020 12:18 0 (specimen) PM EST 12:28 PM EST Resulting Agency Comment Spec In Lab Rylie Rea APRN CHEMISTRY ORDERABLES Performing Organization Address City/[facility]/[place] [address] (ABNORMAL) Comprehensive metabolic panel (non-fasting) (03/23/2020 12:18 PM EST) athologist Signature Glucose Lvl 94 65 - 199 [facility] mg/dL [facility] Comment: Diabetes: >=200 mg/dL plus symp toms BUN 14 8 - 18 mg/dL [facility] Creatinine 0.93 0.70 - 1.20 mg/dL [facility] Sodium 140 135 - 145 mmol/L [facility] LABORATORY Potassium 3.2 (L) 3.5 - 5.0 mmol/L [facility] Comment: Please note: ??Patients with WBC >100,00 0 may have falsely elevated Potassium levels. ??For accurate Potassium quantif ication in these patients send serum separator tube (gold top) for subsequent determinations. ??Contact the Clinical Chemistry Laboratory if there are any qu estions. Chloride 99 98 - 107 mmol/L [facility] CO2 30 22 - 31 mmol/L [facility] Anion Gap 11 5 - 15 mmol/L [facility] Calcium 9.7 8.5 - 10.5 mg/dL [facility] Total Protein 7.0 6.1 - 8.0 gm/dL [facility] Albumin 4.4 3.2 - 5.2 gm/dL [facility] AST 21 0 - 30 unit/L [facility] ALT 20 0 - 30 unit/L [facility] Alk Phos 64 35 - 105 unit/L [facility] Total Bilirubin 0.4 0.2 - 1.3 mg/dL [facility] Estimated GFR 72 >=60 mL/min/1.73 m?? [facility] Comment: This patient? s estimated glomerular filtration rate (eGFR) is between 72 mL/min/1.73 m2 (patients with less muscl e mass) and 83 mL/min/1.73 m2 (patients with more muscle mass) as determined by the CKD-EPI equation. Assessment of eGFR is not appropriate when creatinine concentrations are rapidly changing. For clinical decisions where creatinine clearance will affect therapy, a 24-hour urine creatinine clearance may b e advised. Assignment of CKD stage 1 ? 5 for patients with an eGFR near the transition point between stages may be based on cli nical assessment of muscle mass and symptoms in addition to eGFR. Specimen Anatomical Collection Method Collection Time Receive d Time (Source) Location / / Volume Laterality Blood specimen 03/23/2020 12:18 0 (specimen) PM EST 12:28 PM EST Resulting Agency Comment Spec In Lab Rylie Rea APRN CHEMISTRY ORDERABLES Performing Organization Address City/State/ZIP [place] [address] Hemoglobin A1c (03/23/2020 12:18 PM EST) P athologist Signature Hemoglobin A1C 5.6 4.3 - 5.6 [facility] Comment: Reference Range: 4.3 - [...] Mellitus, Diabetes Care 2013; 36: Suppl. 1, S67-74 Est Avg Gluc 115 mg/dL [facility] Comment: eAG equivalents for HbA1c percentages: HbA1c(%) ?eAG(mg/dL) 6.0 ?126 6.5 ?140 7.0 ?154 7.5 ?169 8.0 ?183 8.5 ?197 9.0 ?212 9.5 ?226 10.0 ? 240 Limitations: The eAG calculation has not been validated on women, individuals below 18 years old and above 70 years old, and individuals with hemoglobinopathies. Additional resources are available on [facility] website. Javi LOZOYA, Juan J, Zoya R, et al. ??Tr anslating the A1C assay into estimated average glucose values. ??Diabetes Care 2008:31(8):4375-9862. Specimen Anatomical Collection Method Collection Time Receive d Time (Source) Location / / Volume Laterality Blood specimen 03/23/2020 12:18 0 (specimen) PM EST 12:28 PM EST Resulting Agency Comment Spec In Lab Rylie Rea APRN CHEMISTRY ORDERABLES Performing Organization Address City/State/[place] [address] documented in this encounter Visit Diagnoses Diagnosis Post-resection malabsorption Other and unspecified postsurgical nonab sorption S/P bariatric surgery Bariatric surgery status Disorder of iron metabolism Other disorders of iron metabolism documented in this encounter Care Teams Coal Cager Relationship Specialty Start Date End Date Huyen Ramon DO PCP - General Family Medicine 04/05/[address] [place] [address] documented as of this encounter
--- OUTSIDE RECORDS SUMMARY | 2022-02-03 02:29 | XMS_ITS | Encounter Summary ---
:1970 Author Organization [facility] [place] [address] Care Team Providers Name Role Phone JohanaHuyen sharma Caitlin MOORE Primary Care Provider Reason for Visit Reason Comments Follow-up s/p nerissa surg 11/28/19 Encounter Details Date Type Department Care Team Description 12/15/2019 Office Visit General Surgery at Quintin Rea, ENRIQUE [facility] [address] Class 3 severe obesity due to excess divina ories with serious comorbidity and body mass index (BMI) of 45.0 to 49.9 in adult; [facility] [place] Keiry Chatterjee, RD [facility] [place] [address] Post-resection malabsorption; [facility] [place] [address] Social History Tobacco Use Types Packs/Day Years Used Date Never Smoker Smokeless Tobacco: Never Used Alcohol Use Standard Drinks/Week Comments No 0 (1 standard drink = 0.6 oz pure alcoho l) Sex Assigned at Date Recorded Not on file documented as of this encounter Last Filed Vital Signs Vital Sign Reading Time Taken Comments Blood Pressure 127/85 12/15/2019 8:05 AM EDT Pulse 77 12/15/2019 8:05 AM EDT Temperature - - Respiratory Rate - - Oxygen Saturation - - Inhaled Oxygen Concentration - - Weight 104 kg (229 lb 3.2 oz) 12/15/2019 8:05 AM EDT Height 163.8 cm (5' 4.49) 12/15/2019 8:05 AM EDT Body Mass Index 38.75 12/15/2019 8:05 AM EDT documented in this encounter Patient Instructions Patient InstructionsRylie Rea, WELLNESS COORDINATOR - 12/15/2019 8:30 AM EDT Bariatric Surgery Program First Post-operative Follow up visit Contact information: [facility] legal support specialist: Yolanda: [phone] and Yadira [phone] Dietitians: [phone] Surgeons/ nurse practitioners: [phone] Nurse line: [phone] Next follow up visit: at 4 months post-op. Testing: Labwork should be done prior to your 4 month post op check. If you have labwork done by your primarycare clinician before that date, please have a copy sent to the Bariatric Surgery Program. Post surgery Medications: 1. continue medication to prevent ulcer (omeprazole ) until you are at least 3 months post surgery, or as indicated by your primary care provider. After 3 months you may decrease to every other day for 1-2 more weeks, if you have no reflux, regurgitation or difficulty swallowing then it is OK to stop, if you have symptoms continue to take the omeprazole and continue to follow up with your primary care provider. 2. If you have a gallbladder, continue to take Ursodiol 300 mg twice daily for a total of 6 months after surgery to prevent gallstones from forming, and to shrink any gallstones that may be present. Vitamin and mineral supplementation recommendations: The following vitamins are recommended: ?? Multivitamins with minerals daily- Bariatric Fusion 1 tablet 4 times per day Nutrition recommendations: - Try cottage cheese, chili, refried beans, and unflavored protein powder to aid in boosting proteinintake. - Consider using Zofran more often to help decrease nausea. - Your Daily Goals: ?? 3 meals per day. Snacks if physically hungry or you need to increase your protein and/or calories(choose protein and/or fruit) ?? 60 grams protein per day (20 grams per meal) ?? 48-64 oz of non-caloric and hydrating fluids per day (6-8, 8 oz cups) Activity: ??? Aim for 30 minutes of exercise daily, 5 days a week of both cardio and strength training exercises. Alcohol: is not recommended for at least 6-12 months after surgery. It should be used sparingly, no more than one drink per occasion. Alcohol is a source of empty calories and can cause ulcers and vitamin and mineral deficiencies. Studies have noted that there is an increased risk of alcohol dependence after surgery. Hair Loss: is associated with rapid weight loss and is seen approximately 3 to 6 months after surgery and can last 3 to 6 months. It is almost always temporary. Eating a healthy diet with 60 grams of protein per day and taking your multivitamin with minerals will help. Constipation: Remember fluid and movement are important for bowel function. Additionally you may want to try Miralax (which you can buy over the counter) one capful at bedtime. If you haven't had a good satisfying bowel movement after 3 days, increase to 2 capfuls at bedtime. For loose stools, decrease to 1/2 capful at bedtime. For loose stools lasting 3 days, stop miralax. Skinfold care 1. Cleanse area with soap and water. 2. Blow dry area on low setting with hairspring truing inspector. 3. Apply absorbent powder such as Gold Juarez and Desinex or over the counter antifungal 4. Apply cotton strips (such as strips from old sheets) or larger size cotton underwear folded beneath skin folds to act as a wick. Do not apply geraldine cloth toweling which can cause further irritation 5. Can try combination of over the counter hydrocortisone cream with over the counter antifungal cream such as lotrimin twice a day for 2 weeks. 6. Call if above strategies don't work and if you would like a prescription for an antifungal cream or powder. control for women of child bearing age: is recommended for at least 18-24 months after surgery. Call us: ??? If you have concerns. ??? If you have unexplained abdominal pain. ??? if you see blood in your stool or vomit blood ??? If you have prolonged vomiting Post Surgery Support Group: Our post surgery support group meets on the first Sunday of every month from 1-2 PM at [facility] [place] [place] Nutrition and Activity apps- Baritastic, My Fitness Pal, Lose It Internet resources: www.SkyPilot Networks www.SalesPortal www.bariatriceating.Med-Tek www.MyLocalEatsnessPal.com/blog [facility] facebook page: https://www.facebook.com/[facility] [place] CITY[place]ariat[place]gery Books & Magazines: - Recipes for Life After Weight Loss Surgery by Kassandra Carrasco - Shrink Yourself by Dr Jay Jay Levine - Eating Well - Cooking Light documented in this encounter Progress Notes Keiry Chatterjee RD - 12/15/2019 8:30 AM EDT Bariatric Nutrition Follow-up Visit Topics Discussed/Patient Concerns: ?? I just have to do it. Having hard time meeting protein needs. Plans to take zofran more regularly to help w intake. ?? Dairy is not appealing to her, with the exception of cottage cheese. Has refried beans and smoothguac. Does not have an unflavored protein powder but will get one. Also considering making chili. 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 ?? Social support: Jayne, kids ?? Hobbies: being active- wants to hike and kayak. Free time happily spent with family. Vision at 2 years post-op: able to do more active things outside of walking- hiking and kayaking. Not worrying about size when trying to do new things. More comfortable when traveling. Most importantlyimproved health. Goal weight: 160-165# ?? OBJECTIVE: Date of Bariatric Surgery: 11/28/19 Type of Bariatric Surgery: Laparoscopic Nadia-en-Y Gastric Bypass Weight History: Date Weight (lbs) HT BMI Comments 06/05/19 268# ? Highest Weight 06/05/19 268# ? Initial program weight 10/09/19 267.8# 64.5 45.3 1st pre-op visit 11/28/19?? 248.7#?? EWL % ?? Surgery ??12/15/19 229# 32%?? 38.7 1 month post-op ? 4 months post-op [place] Body Weight (based on BMI of 25): 148# 30-70% Excess Weight Loss: 184-232#; 50% Excess Weight Loss: 208# MEDICATIONS: Vitamin/Mineral Supplements (reported by patient): Supplement Type Brand/Form Dosage/Amount Frequency Comments Multivitamin Bariatric Fusion 1 pill 4 x daily Calcium Vitamin B12 Iron Vitamin D3 Food Allergies/Intolerances: Some artificial sweeteners- ynes Daily Oral Intake: Breakfast AM Snack 2 canned peach sections Lunch PM Snack 1/ c split pea soup Dinner HS Snack Protein- grams/day: <60 g Hydrating fluids - oz/day: 2x 24 oz water daily. Sometimes adds decaf tea bag Soda: ETOH: Caffeine: Meals per day: Other: ? Vomiting/ regurgitation: 2 episodes of dry heaves- once after liquid tylenol ?? Nausea: Yes. ?? Constipation/diarrhea: BM every other day or daily. ?? Prior to surgery: tendency toward diarrhea. 5-8 x in a day. Sometimes days at a time. Exercise: Active around the house doing chores. plans to start walking this week. ASSESSMENT: Patient s/p bariatric surgery with 32% EWL. Monisha is not meeting protein goals. She is aware and has a plan to try a few new foods to help boost overall intake. Fluid intake is good. Reviewed vitamin and mineral supplements. She active around the house and is increase activity as tolerated. PLAN: ?? Evaluation by Rylie Rea APRN today. ?? Provided support/encouragement and reinforced importance of meeting nutritional goals. ?? Reviewed nutrition and vitamin and mineral supplement recommendations (see patient instructions). ?? Written recommendations provided. Patient agreed with these and verbalized adequate understanding. Rylie Sy APRN - 12/15/2019 8:30 AM EDT [place] [address] Reason for visit: Bariatric Surgery Post Op Check Surgery info: s/p laparoscopic Nadia-en-Y gastric bypass d/t GERD, on 11/28/[address] Garcia ?? Subjective: Monisha Das is s/p the above procedures, post operative course has been going ok overall. Portsites are healing. Her stomach does feel sour and she is not hungry. No vomiting. She has tried Zofran which does help. She could be better about getting the recommended protein requirements, she is getting at least 48 oz of fluids. She is still learning what foods work better and pacing eating/drinking. Just started taking supplements as recommended. No ED visits/unplanned medical visits since surgery. Primary care post op follow up visit: Pt was seen by PCP on 12/04/19 Obesity related medical issues: ? Diabetes [x]? Yes, stopped metformin []? Not a baseline issue ? HTN: [x]? Yes, decreased her meds, taking 3 meds once daily from 4 meds twice daily. []? Not a baseline issue ? GERD: [x]? Yes, on PPI []? Not a baseline issue ? Hyperlipidemia: [x]? Yes, not on meds []? Not a baseline issue ? LAUREN: []? Yes, [x]? Not a baseline issue ?? Post Bariatric Surgery Required Medications: Extended VTE prophylaxis post surgery n/a Post-discharge narcotic analgesic use Did not require Ursodiol gallstone prophylaxis taking PPI ulcer prophylaxis: taking ?? ROS: No Fever, chills, + nausea/no vomiting. Has required anti-emetics No Chest pain, SOB or palpitations No bladder concerns or changes. BM are ok, getting back to normal. Energy level is improving Appetite : as expected, trying to meet protein/fluid requirements Activity level : active with chores, ADLs, just started back to work Post surgical pain is resolved Control: n/a Support: Partner Jayne, and 4 children Health Habits: Tobacco: none ETOH: none No NSAID use. Patient Active Problem List Diagnosis Code ??? Alopecia areata L63.9 ??? Lymphedema I89.0 ??? Bunion M21.619 ??? Calculus of kidney N20.0 ??? Classical migraine with intractable migraine G43.119 ??? Depressive disorder F32.9 ??? Diarrhea R19.7 ??? Edema of lower extremity R60.0 ??? Essential hypertension I10 ??? Flash pulmonary edema J81.0 ??? Gastroesophageal reflux disease with esophagitis K21.0 ??? Hypokalemia E87.6 ??? Hypomagnesemia E83.42 ??? [...] cervical spine M99.71 ??? Morbid obesity E66.01 Meds/allergies reviewed Dietary history/ exericse/ activity level: See dietitian note from today's visit for complete dietary evaluation. Complications summary: Early none Late - Compliance with [facility] follow up: good Attndance at [facility] post-operative graduate support group meetings: none WT (lbs) BMI HT %EBW lost Pre- OP Visit 06/05/19 268 45 64.5 Post-op WT (lbs) BMI 12/15/19 229 38.75 32% Objective: BP 127/85 (BP Location (NBP): Left arm, Patient Position: Sitting, BP Cuff Sizes: Large Adult (32-43cm)) Pulse 77 Ht 163.8 cm (5' 4.49) Wt 104 kg (229 lb 3.2 oz) BMI 38.75 kg/m?? Physical Exam Gen: Alert, pleasant, NAD, appears well Abd: Abdomen is soft, non-distended. Trochar sites are healing with surrounding bruising Lower extremities: no edema or tenderness (B) Skin: warm and dry. No rash noted. Psychiatric: normal mood and affect. Assessment: Monisha Das is s/p above procedures, with uneventful early post-operative course. Obesity related co-morbidities are improved/stable overall. Plan: ?? continue Ursodiol as recommended for 6 months to reduce the risk of gallstone formation during the period of rapid weight loss. ?? continue PPI therapy until at least 3 months post op to decrease the risk of ulcer formation and avoid NSAIDs. D ?? See pensionholder information clerk note re: recommendations regarding vitamin and mineral supplementation, fluid intake and exercise. ?? Avoid ETOH until 6-12 months post-operatively, and then should be used in small amounts Discussed the common causes for nausea post bariatric surgery are: Eating too fast, eating too much,drinking with meals, or not chewing well enough. Reminded patient to eat slowly and chew food well. Advised to take at least 30 minutes or more to eat a meal. She is reassured that symptoms will improve. OK to use Zofran PRN. Patient is encouraged to try the above strategies and to call if her symptoms worsen, fail to improve, or if she has difficulty keeping food or fluid down. RTC in 3 months for next BSP follow up visit, given lab Call/rtc sooner prn with questions/concerns. Bariatric Program Summary report is availabe for patient's review via e-DH Rylie Rea APRN [facility] Bariatric Surgery Program RECOMMENDED BARIATRIC SURGERY PROGRAM POSTOPERATIVE FOLLOW-UP: Follow up: done at 4, 8,12 and 24 months, and yearly thereafter. High risk patients are evaluated pollo more frequent basis. *Supplement recommendations: Multivitamin with minerals twice a day, B12 500 mcg once a day, calcium citrate 600 mg/400 units vitamin D twice a day, iron (ferrous fumarate, carbonyl iron taken with vitamin C 250 mg once a day) formenstruating females or those with ROHAN. Labwork: Hemogram, ferritin, iron (transferrin) saturation, iron, folate, B1, B12, D (25 hydroxy only), Intact PTH and comprehensive metabolic profile at 4, 12 and 24 months, and yearly. If labwork is done by the primary certified caregiver: please send a copy to the Bariatric Surgery Program, General Surgery Clinic, [facility], or fax [phone] documented in this encounter Plan of Treatment Upcoming Encounters Date Type Specialty Care Team Description 02/08/2022 TH Visit (TeleHealth) General Surgery Rylie Rea APRN [facility] [place] [address] Keiry Chatterjee, SAM [facility] [place] [address] documented as of this encounter Goals Goal [...] (BMI) of 45.0 to 49.9 in adult Post-resection malabsorption Other and unspecified postsurgical nonab sorption S/P bariatric surgery Bariatric surgery status documented in this encounter Care Teams Consumer Attorney Relationship Specialty Start Date End Date Huyen Ramon DO PCP - General Family Medicine 04/05/[address] [place] [address] documented as of this encounter
--- OUTSIDE RECORDS SUMMARY | 2022-02-03 02:29 | XMS_ITS | Encounter Summary ---
:1970 Author Organization [facility] [address] Care Team Providers Name Role Phone NicaHuyen urena Primary Care Provider Encounter Details Date Type Department Care Team Description 10/14/2019 Telephone Weight and Wellness at [place] Snyder RN [address] [id number] Social History Tobacco Use Types Packs/Day Years Used Date Never Smoker Smokeless Tobacco: Never Used Alcohol Use Standard Drinks/Week Comments No 0 (1 standard drink = 0.6 oz pure alcoho l) Sex Assigned at Date Recorded Not on file documented as of this encounter Miscellaneous Notes Telephone Encounter - [facility] Snyder RN - 10/14/2019 10:12 AM EDT Lab values added to chart per scanned documents. Thank you, [facility] Snyder RN 10/14/2019 10:12 AM documented in this encounter Plan of Treatment Upcoming Encounters Date Type Specialty Care Team Description 02/08/2022 TH Visit (TeleHealth) General Surgery Rylie Rea, OUT AND OUT CIGAR MAKER HAND [facility] [place] [address] Keiry Chatterjee, RD [facility] [place] [address] documented as of this encounter Goals Goal [...] Name Priority Date/Time Associated Diagnosis Comme nts [facility] EXTERNAL RESULT Routine 10/01/2019 Results for this PANEL procedure are i n the results section . HEMOGRAM Routine 10/01/2019 Results for thi s procedure are i n the results section . IRON AND TIBC Routine 10/01/2019 Results for th is procedure are i n the results section . documented in this encounter Results Iron and TIBC (10/01/2019) athologist Signature Iron 66 TIBC 316 Specimen (Source) Anatomical Location Collection Method / Collectio n Time Received Time / Laterality Volume Blood specimen 10/01/2019 (specimen) Historical Provider CHEMISTRY ORDERABLES Hemogram (10/01/2019) athologist Signature WBC 9.2 RBC 4.48 Hemoglobin 12.8 Hematocrit 39.0 MCV 86.2 MCH 28.6 MCHC 33.0 RDWCV 14.3 Platelets 354 Specimen (Source) Anatomical Location Collection Method / Collectio n Time Received Time / Laterality Volume Blood specimen 10/01/2019 (specimen) Historical Provider HEMATOLOGY ORDERABLES (ABNORMAL) [facility] External Results (10/01/2019) athologist Signature Chol, Total 271 (ExtH) Comment: <200 Triglycerides 391 (ExtH) Comment: 30-150 HDL 45 LDL Cholesterol 148 (ExtH) Comment: <100 Hemoglobin A1C 6.5 (ExtH) Comment: <5.7 Glucose Fasting 97 BUN 24 Creatinine 0.99 Sodium 138 Potassium 4.2 Chloride 101 CO2 27 Anion Gap 14 Calcium 9.2 Total Protein 7.0 Albumin 3.8 AST 25 ALT 41 Alk Phos 55 Total Bilirubin 0.3 25-OH Vit D Total 29.1 (ExtL) Comment: >30 TSH 2.034 T4 Free-Eso 0.98 Ferritin 92 Folate Lvl 24 Vit B12 Bind Capacity 712 Specimen (Source) Anatomical Location Collection Method / Collectio n Time Received Time / Laterality Volume 10/01/2019 Historical Provider POINT OF CARE TEST ORDERABLE S documented in this encounter Visit Diagnoses Not on filedocumented in this encounter Care Teams Cpht Relationship Specialty Start Date End Date Huyen Ramon DO PCP - General Family Medicine 04/05/[address] [place] [address] documented as of this encounter
--- OUTSIDE RECORDS SUMMARY | 2022-02-03 02:29 | XMS_ITS | Encounter Summary ---
:1970 Author Organization [facility] [place] [address] Care Team Providers Name Role Phone Tristen Huyenjenna Tucker DO Primary Care Provider Encounter Details Date Type Department Care Team Description 07/30/2019 TH Visit Weight and Wellness Sandy Russo BMI 40.0-44.9 (TeleHealth) at [facility] Abdirahman, RD kg/sq m [address] [facility] [id number] [place] [address] Social History Tobacco Use Types Packs/Day Years [...] - Inhaled Oxygen Concentration - - Weight 120.7 kg (266 lb) 07/30/2019 7:00 AM EDT Height 163.8 cm (5' 4.49) 07/30/2019 7:00 AM EDT Body Mass Index 44.97 07/30/2019 7:00 AM EDT documented in this encounter Patient Instructions Patient InstructionsSandy Russo, RD - 07/30/2019 9:30 AM EDT Goals ??? beverage practice - begin eating and drinking by full 30 minutes - sipping vs. Gulping - aim for 64 ounces (maybe try an chani or something to alert you or a water bottle that can outside plant supervisor to your fitbit or lines with the time on it) ??? increase active minutes goal From 20 minutes to 30 ??? Other (Enter personal goal) Do resistance exercise with bands or weights starting with twice weekly, 5 to 10 minutes per time. ??? Other (Enter personal goal) Tracking with fit bit ??? potential eating schedule Ideally eating hours would look more like 10-6 or 11-7- just keeping the 8 hour eating window even if it's 12-8p Stop eating after supper Will send you the fasting prescription when Dr. Cai has signed off documented in this encounter Progress Notes Sandy Russo RD - 07/30/2019 9:30 AM EDT Nutrition Intervention for Weight Management Initial RD visit with CLAUDE Parker 1970 Assessment/Nutrition Diagnosis: Pt at increased nutritional risk related to excessive calorie intakeand sub optimal physical activity resulting in overweight/obesity as evidenced by BMI and diet recall Food Trackers: Uses the fitbit tracker for food and activity; finds it helpful At 1600 calories most days (it's plenty) could decrease more. when I don't think about things... probably more around 1800/2000) What's different on those days? Wasn't actually tracking. Not eating after dinner and has been tracking since talking with Dr. Cai, has resulted in lower caloric intake. Considers this a reason to continue tracking, in addition to finding it motivating tomove more (step/active minutes tracking on fitbit) Activity: Had been moving more - previously doing 1/2 hour once per day, did twice per day this week 7,500 is the goal, meets this most days (requires a walk or two) Active minutes goal is 20/day (yesterday is 69, many days at 30) - might think about increasing - see goals Weight Today: Thinks it went down 2 pounds (has about a ten pound fluctuation normally, however) 266 lb today Vitals 07/30/2019 07/23/2019 Height (Nepali) 64.488 Height (Metric) 163.8 cm Weight (Nepali) 266 lbs 268 lbs Weight (Metric) 120.657 kg 121.564 kg BMI (Calculated) 44.97 kg/m2 Weight Loss History: See note from encounter with Linda Cai on 07/23/19 Appetite/Hunger: Has been thinking about the times when most wants to eat that would align with time restricted eating- decided noon -8 and has been trying this for the past week. She has felt hungry before noon but not in a way that is shaky or weak feeling as she might if she were hungry later on in the day. Noticed a change in appetite yesterday: typically having a lot of fruit, almonds- wasn't feeling this need Has been fine stopping the eating after dinner - knows that at that time she's not eating from hunger so this helps Typical Dietary Intake: Waking now around 7am (slightly different recently b/c she's been home instead of at work Coffee with 2 tbsp the chobani creamer (has a little added sugar) B: has been waiting to eat until noon per above. Had salad greens and other non- starchy veggies, turkey, salsa, nonfat plain [place] (more typical: light kazakh muffin- 100 divina- or a sandwich thin with ~1 tbsp peanut butter- this tends to sit better) L: around 3/4pm: depends- definitely fruit with cottage cheese / or apple+pb and wheat thins+ spreadable cheese / homemade chicken noodle soup D: roasted chicken with 1/2 baked potato and a cup of green beans (7:30pm) S: Typical Beverages: Has been focusing on hydration lately- if doesn't think about it can go all day without drinking Water heral tea with lemon Will often have seltzer At 48 ounces on a regular basis In the past 6 months had been having a diet soda daily or every other day but has stopped this completely Patient Goals from Team: Goals ??? Other (Enter personal goal) ??? Other (Enter personal goal) Do resistance exercise with bands or weights starting with twice weekly, 5 to 10 minutes per time. ??? Other (Enter personal goal) Tracking with fit bit- yes ??? Stop eating after supper- yes Interview: Time seems right now to start the actual process but has been thinking about it for a long time. Monisha is a registered Would like to work on total hydration, timing throughout the day Feels good about meal timing/ speed of eating. Always eating at the table- the only time that she wouldn't would be the evening snack so good to stop that on multiple levels. Discussed thinking about shifting overall diet away from fruits/grains towards more veggies/proteins, especially in the setting of likely insulin resistance. Additionally, focusing on protein to prepare for bariatric surgery is an important practice. 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 We discussed the role of the team at the weight and wellness center to help her find a personalized plan for weight loss (that includessurgery) and to help support her in behavior change towards those behaviors that she may already know about, but still need some practice to do on a regular basis. Barriers to Change: None identified at this time Nutrition Goals: Goals ??? beverage practice - begin eating and drinking by full 30 minutes - sipping vs. Gulping - aim for 64 ounces (maybe try an chani or something to alert you or a water bottle that can outside plant supervisor to your fitbit or lines with the time on it) ??? increase active minutes goal From 20 minutes to 30 ??? Other (Enter personal goal) Do resistance exercise with bands or weights starting with twice weekly, 5 to 10 minutes per time. ??? Other (Enter personal goal) Tracking with fit bit ??? potential eating schedule Ideally eating hours would look more like 10-6 or 11-7- just keeping the 8 hour eating window even if it's 12-8p Stop eating after supper Will send you the fasting prescription when Dr. Cai has signed off Assessing Calorie Goals at this time? 1600 seems appropriate for now, Monisha would like to see how it goes working towards 1200 prior to surgery Monitor/Evaluate: Will follow up in 1 month unless Monisha determines otherwise through speaking with her insurance Aim for 5-10% weight loss from ABW x 3-6 months from initial visit Thank you Sandy Russo RD LD 45 minutes were spent today in telehealth visit documented in this encounter Plan of Treatment Upcoming Encounters Date Type Specialty Care Team Description 02/08/2022 TH Visit (TeleHealth) General Surgery Rylie Rea, ROBOTIC WELDING OPERATOR [facility] [place] [place] [address] Keiry Chatterjee, RD [facility] [address] documented as of this encounter Goals Goal [...] that has times or similar- consider temperature documented as of this encounter Visit Diagnoses Diagnosis Adult BMI 40.0-44.9 kg/sq m Body Mass Index 40.0-44.9, adult documented in this encounter Care Teams Pivot Maker Relationship Specialty Start Date End Date Huyen Ramon DO PCP - General Family Medicine 04/05/[address] [place] [address] documented as of this encounter
--- OUTSIDE RECORDS SUMMARY | 2022-02-03 02:29 | XMS_ITS | Encounter Summary ---
:1970 Author Organization [place] [address] Care Team Providers Name Role Phone NicaandrewlucindaHuyen sharma Caitlin MOORE Primary Care Provider Encounter Details Date Type Department Care Team Description 09/22/2019 Telephone Weight and Wellness at [facility] Debra Pink [address] [place] [address] Social History Tobacco Use Types Packs/Day Years Used Date Never Smoker Smokeless Tobacco: Never Used Alcohol Use Standard Drinks/Week Comments No 0 (1 standard drink = 0.6 oz pure alcoho l) Sex Assigned at Date Recorded Not on file documented as of this encounter Miscellaneous Notes Telephone Encounter - Debra Pink - 09/22/2019 9:06 AM EDT Patient reached out and stated that she has a doctor appointment local to her today and she will have a weight and vitals completed there [facility] documented in this encounter Plan of Treatment Upcoming Encounters Date Type Specialty Care Team Description 02/08/2022 TH Visit (TeleHealth) General Surgery Rylie Rea, LAMINATING MACHINE OFFBEARER [facility] [place] [place] [address] Keiry Chatterjee, RD [facility] [place] [address] documented as of this encounter Goals Goal [...] on filedocumented in this encounter Care Teams Silk Screen Printing Racker Relationship Specialty Start Date End Date Huyen Ramon DO PCP - General Family Medicine 04/05/[address] [place] [address] documented as of this encounter
--- OUTSIDE RECORDS SUMMARY | 2022-02-03 02:29 | XMS_ITS | Encounter Summary ---
:1970 Author Organization [facility] [place] [address] Care Team Providers Name Role Phone TristenStefanijenna Tucker DO Primary Care Provider Reason for Referral Physical Therapy (Routine) - Closed Specialty Diagnoses / Procedures Referred By Contact Refer red To Contact Physical Therapy Diagnoses Neural foraminal stenosis of cervical spine Anurag Omalley, [facility] Spine [place] [address] [place] [address] Referral ID Status Reason Start Date Expiration Date Visits V isits Requested Authorized [id number] Closed Evaluate and 08/12/2019 08/11/2020 12 12 Treat Reason for Visit Reason Comments Left Shoulder Pain Left Arm Pain Consultation (Routine) - Closed Specialty Diagnoses / Procedures Referred By Contact Refer red To Contact Pain and Spine Center Diagnoses Cervical radiculopathy Spine ([facility]) - Cervical radiculopathy/ ?injections/ MRI & XR 06/2019 in [facility] *reviewed by Ruiz Agrawal, [facility] Pain [facility] Spine [address] [place], [place] [id number] [place] [phone] Phone: Fax: Referral ID Status Reason Start Date Expiration Date Visits Requ ested Visits Authorized [id number] Closed 07/02/2019 07/01/2020 1 1 Encounter Details Date Type Department Care Team Description 08/12/2019 TH Visit Pain and Spine Anurag Omalley fo raminal (TeleHealth) Center at [facility]acs stenosis of cervical [facility] spine [facility] [address] [place], [place] [id number] [phone] Social History Tobacco Use Types Packs/Day Years [...] - Inhaled Oxygen Concentration - - Weight 119.3 kg (263 lb) 08/11/2019 4:10 PM EDT Height 165.1 cm (5' 5) 08/11/2019 4:10 PM EDT Body Mass Index 43.77 08/11/2019 4:10 PM EDT documented in this encounter Progress Notes Anurag Omalley APRN - 08/12/2019 8:00 AM EDT SUBJECTIVE: Monisha Das is a 48 y.o. year old female being seen via telehealth at the request of Ruiz Mendez with a chief complaint of left shoulder and arm pain. Patient states that she has been experiencing left shoulder and arm pain for at least 5 months. She does report having had previous episodeof lateral left shoulder pain approximately 3 years ago that ultimately resolved with physical therapy which she had been diagnosed with a torn rotator cuff. She denies any neck pain describes her painis primarily lateral and somewhat anterior left shoulder lateral proximal left upper arm. She also complains of numbness in the lateral left upper arm in the dorsal radial aspect of the left forearm and into the left thumb. She also complains of pain in the left thumb and a sense of weakness in the left arm. Her shoulder and arm pain is aggravated by reaching with her left arm and tends to be worse first thing in the morning as well as disrupting her sleep. It is somewhat alleviated by medication. Patient reports sleep disturbances as a result of the symptoms and has had in the past several unexplained falls although those have not occurred of late and she was evaluated by neurology with no specific diagnoses. She denies fine motor disturbances. Prior treatments have included ibuprofen not helpful, Celebrex helpful. In the remote past she had physical therapy for her shoulder pain which was helpful. Review of systems is negative for constitutional, GI, symptoms. 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 Past medical history is well-documented in her problem list. OBJECTIVE: On examination via telehealth the patient's affect is bright, her speech is in good time to the point, she responds appropriately to questions and direction. She stands with level shoulders and a straight cervical spine. Cervical ROM is 50 degrees of flexion, 70 degrees of extension, 80 degrees of left and right rotation none of which aggravates shoulder or arm pain. Spurling's is negative bilaterally. She walks with a steady gait and is able to tandem walk. She has full range of motion with lateraland anterior abduction both shoulders and arms. She has good motor strength in the bilateral upper extremities able to lift a dining room chair. Cervical spine MRI of 06/27/2019 is reviewed. There are spondylitic changes at multiple levels. At C2-3 there is left-sided disc protrusion with facet hypertrophy that results in moderate to severe foraminal stenosis on the left. At C2-3 there is disc protrusion on the right which results in severe foraminal stenosis on the right. At C4-5 there is disc bulge and mild to moderate left greater than right foraminal stenosis. At C5-6 there is disc bulge with facet arthropathy most pronounced on the left that in combination resulted severe foraminal stenosis on the left moderate right. At C6-7 there is adisc bulge and facet arthropathy that results in moderate to severe bilateral foraminal stenosis andat C7-T1 there is no significant foraminal stenosis. There is central canal stenosis in the cervicalspine but at most mild in severity with no evidence of spinal cord impingement or cord signal change. These images were reviewed with the patient. ASSESSMENT: This is a 48 y.o. year old female with 5 months of left shoulder and proximal upper arm pain and paresthesia in the left upper extremity in the setting of reassuring physical exam and cervical spondylosis with foraminal stenosis at multiple levels in particular on the left at C5-6 which I suspect is concordant with her shoulder and arm symptoms. I reviewed treatment options with the patient and afterdiscussing the various treatment options we have mutually agreed to proceed as outlined below. PLAN: 1/mechanical diagnosis and therapy with a wan support specialist physical therapist via telehealth. The patient has not had the benefit of physical therapy since the onset of the symptoms in April and explained the potential benefit of spine specially physical therapy given her foraminal stenosis. 2/she will continue the Celebrex that her PCP is provided I would suggest trial of electric any pad 30 minutes twice a day for 2 weeks to the lateral anterior left shoulder and upper arm. 3/if after a relatively short period of the above the patient fails to realize adequate relief I encouraged her to call the spine center and speak to nursing staff at which time a referral for cervicalepidural steroid injection would be the neck steps of the treatment plan. If she obtains injection Iencouraged her to call the spine center 2 weeks postinjection to report response to nursing if at that time she obtains some but inadequate relief referral for repeat injection. If she obtains no relief and requests evaluation by a surgeon that would be appropriate preceded by AP and lateral flexion-extension x-rays of the cervical spine. documented in this encounter Plan of Treatment Upcoming Encounters Date Type Specialty Care Team Description 02/08/2022 TH Visit (TeleHealth) General Surgery Rylie Rea APRN [facility] [place] [address] [facility] [place] [address] Scheduled Referrals Name Type Priority Associated Diagnoses Order S chedule Referral to Outpatient Referral Routine Neural foraminal Orde red: Physical Therapy stenosis of cervical 03/2020 spine documented as of this encounter Goals Goal [...] as of this encounter Visit Diagnoses Diagnosis Neural foraminal stenosis of cervical sp ine Spinal stenosis in cervical region documented in this encounter Care Teams Machine Long Goods Helper Relationship Specialty Start Date End Date Huyen Ramon DO PCP - General Family Medicine 04/05/18 [address] [place] [address] documented as of this encounter
--- OUTSIDE RECORDS SUMMARY | 2022-02-03 02:29 | XMS_ITS | Encounter Summary ---
:1970 Author Organization [facility] Address [address] [place] [address] Care Team Providers Name Role Phone Tristen Huyenjenna Tucker DO Primary Care Provider Encounter Details Date Type Department Care Team Description 07/31/2019 TH Visit Weight and Wellness Naseem Wild Class 3 severe (TeleHealth) at [address] obesity due to excess [address] calories with serious [place], [place] comorbidity and body [address] mass index (BMI) of [phone] 45.0 to 49.9 in adult Social History Tobacco Use Types Packs/Day Years Used Date Never Smoker Smokeless Tobacco: Never Used Alcohol Use Standard Drinks/Week Comments No 0 (1 standard drink = 0.6 oz pure alcoho l) Sex Assigned at Date Recorded Not on file documented as of this encounter Patient Instructions Patient InstructionsNaseem Wild - 07/31/2019 8:00 AM EDT It was good to talk with you this morning Monisha. Best wishes on your journey! Please feel free to call [facility] anytime if you'd like extra support from me as you work away at your goals. I will send you the Mindfulness Hand-out we have along with some other apps and web sites you might find helpful. Naseem Edward Health Circulation Director documented in this encounter Progress Notes Naseem Wild - 07/31/2019 8:00 AM EDT [facility] Health Circulation Director Phone Visit - NEW 07/31/2019 [facility] provider: Dr. Cai IV: Naseem [ x ] I confirmed that I am speaking with Monisha Geetha Das who is doing this phone visit from home [x ] Patient verbally consents to this telephone visit and understands that this visit may be billed, similar to a clinic office visit. [facility] Program Information: [ x ] I reviewed Monisha Das'sknowledge/understanding of the [facility] program and pathways. Comments:bariatric pathway [ x ] I reviewed Monisha Das's expectations of Program: fulfill requirements, support, ideas Current goals (set by provider in initial visit) Goals ??? beverage practice - begin eating and drinking by full 30 minutes - sipping vs. Gulping - aim for 64 ounces (maybe try an chani or something to alert you or a water bottle that can coremaking supervisor to your fitbit or lines with [...] prescription when Dr. Cai has signed off [ x ] previous goals were reviewed with the patient What has been going well for you? Meal timing has been going pretty well, helping me recognize hunger cues. What are the biggest challenges you face right now? Giving up night time snacking. I;m doing it but it's a hard habit. I spenser up hungry naturally so not really noticing that I'm any hungry by not snacking. I do notice that I am actually tired so am starting to go to bed earlier and developing more of a bedtime routine. What are the action(s) you are ready to take now? Interested in Mindfulness, relaxation practices. Strengths:partner also going through [facility] program so we support each other. Goal setting What is your current level of physical activity:Walk every day What are you willing to start doing to add more movement into your day/week? Willing to try mindfulness practices HC Assessment of Stage of Change: Overall health: preparation/action Physical Activity:preparation/action HC Recommendations: Patient would be a candidate for [ x ] HLP [ x ] individual health coaching - not sure if she is interested right now due to schedule. Patient feels she is okay with putting ingot practice goals she has made with Dr. Cai and Sandy. She will call [facility] if she feels like she would like to meet with me again. Scheduling [ ] Health ice hockey coach call in [ ] weeks Also needs the following scheduled (membership secretary tasked to call) [ ] RD TH visit [ ] MD/MAJOR LEAGUE BASEBALL PLAYER visit [ ] Is interested in classes once offered: [ ] culinary [ ] peer I provided care to the patient today via telephone call, 30 minutes telephone visit was spent in discussion with patient on above. Naseem Wild, Health Circulation Director documented in this encounter Plan of Treatment Upcoming Encounters Date Type Specialty Care Team Description 02/08/2022 TH Visit (TeleHealth) General Surgery Rylie Rea, PRIMER ASSEMBLER [facility] [place] [address] Keiry Chatterjee, RD [facility] [place] [address] documented as of this encounter Goals Goal Patient Goal Associated Recent Patient-Stated? Author Type Problems Progress increase Lifestyle On track luba Ledesma (08/29/2019 Linda Arcos, goal 10:03 AM EDT) Note: Formatting of this note might be d ifferent from the original. From 20 minutes to 30 potential eating Lifestyle On track (08/29/2019 Linda Ledesma MD schedule 10:03 AM EDT) Note: Formatting [...] adult documented in this encounter Care Teams Magazine Editor Relationship Specialty Start Date End Date Huyen Ramon DO PCP - General Family Medicine 04/05/[address] [place] [address] documented as of this encounter
--- OUTSIDE RECORDS SUMMARY | 2022-02-03 02:29 | XMS_ITS | Encounter Summary ---
:1970 Author Organization [facility] [place] [address] Care Team Providers Name Role Phone Tristen Huyenjenna Tucker DO Primary Care Provider Reason for Visit Auth/Cert Specialty Diagnoses / Procedures Referred By Contact Refer red To Contact Diagnoses Morbid obesity MORBID OBESITY Procedures PRO LAP GASTRIC BYPASS/LUIS ANTONIO-EN-Y @LAPAROSCOPIC GASTROPLASTY W/ LUIS ANTONIO-EN-Y CONSTRUCTION (WRVU 29.4) Referral ID Status Reason Start Date Expiration Date Visits Requ ested Visits Authorized [id number] 1 1 Encounter Details Date Type Department Care Team Description 11/28/2019 Surgery Main Operating Room Nusrat Garcia, @ [facility] ED GASTROPLASTY W/ Hospital [facility] LUIS ANTONIO-EN-Y CONSTRUCTION [facility] (WRVU 29.4) [facility] [place] [address] [place] [address] [phone] (Wo rk) Social History Tobacco Use Types Packs/Day Years Used Date Never Smoker Smokeless Tobacco: Never Used Alcohol Use Standard Drinks/Week Comments No 0 (1 standard drink = 0.6 oz pure alcoho l) Sex Assigned at Date Recorded Not on file documented as of this encounter Last Filed Vital Signs Vital Sign Reading Time Taken Comments Blood Pressure 135/87 11/28/2019 11:25 AM EDT Pulse 72 11/28/2019 11:25 AM EDT Temperature 36.6 ??C (97.9 ??F) 11/28/2019 11:25 AM EDT Respiratory Rate 16 11/28/2019 11:25 AM EDT Oxygen Saturation 100% 11/28/2019 11:25 AM EDT Inhaled Oxygen Concentration - - Weight 112.8 kg (248 lb 11.2 oz) 11/28/2019 11:25 AM EDT Height 163.8 cm (5' 4.49) 11/28/2019 11:25 AM EDT Body Mass Index 42.05 11/28/2019 11:25 AM EDT documented in this encounter Discharge Summaries Wild Brown MD - 11/29/2019 2:41 PM EDT General Surgery Discharge Summary Primary Diagnosis: Obesity Operations and Procedures: Procedure(s) with comments: @LAPAROSCOPIC GASTROPLASTY W/ LUIS ANTONIO-EN-Y CONSTRUCTION (WRVU 29.4) - SUPINE POSITION 2 WEEK PRE OP DIET EGD, UPPER GI ENDOSCOPY Surgeons: Surgeon(s) and Role: * Nusrat Garcia MD - Primary * Thomas Freire MD - Resident History of Present Illness: Hospital Course: Monisha Das is a 48 y.o. female who was admitted on 11/28/2019 after a laparoscopic luis antonio en y gastric bypass. Operative course was uneventful. On POD#1 she was advanced to stage 1of the gastric bypass diet. She tolerated this well and was advanced to stage 2 later that same day with issues. She was changed to oral pain medications POD#1. She was ambulating independently and wasvoiding without difficulty. On POD#1 the dressing was dry and intact and the wound was benign. She did not have a bowel movement prior to discharge but was passing flatus and taking PO without difficulty. Prior to discharge on POD#1 Monisha Das was afebrile, with stable vital signs. On POD#1, was discharged to home in stable condition. Vital Signs Last value Range last 24hrs Temperature Temp: 37.2 ??C (99 ??F) Temp: [36.2 ??C (97.2 ??F)-37.2 ??C (99 ??F)] Heart Rate Heart Rate: 64 Heart Rate: [64-72] Blood Pressure BP: 143/78 BP: (120-160)/(71-103) Respiratory Rate Resp: 18 Resp: [10-18] SpO2 SpO2: 99 % SpO2: [94 %-100 %] Pertinent Lab Data: Recent Labs 11/29/19 0347 WBC 10.6* HGB 13.2 HCT 38.8 PLATELET 323 Recent Labs 11/29/19 0347 NA 136 K 4.0 CL 101 CO2 23 BUN 13 CREATININE 0.80 GLUCOSE 123 CALCIUM 9.1 MAGNESIUM 0.72 PHOS 3.6 Physical Exam: General: NAD, resting comfortably, pleasant, conversant HEENT: PERRL, anicteric sclerae CVS: RRR Pulm: CTAB Abd: soft, nontender, non-distended. Incisions c/d/i with no drainage or erythema. Skin: warm, dry Ext: no c/c/e, cap refill <2sec Neuro: CN 2-12 grossly intact, nonfocal,moving all four extremities spontaneously Imaging: No results found. Condition at discharge: Stable Mental Status: awake and alert, oriented x 3 Medications: Your Medications New Medications Dose Details acetaminophen 650 mg/20.3 mL Soln Commonly known as: Tylenol Take 20.3 mLs by mouth every 4 hours as needed (Mild pain 1-3). 650 mg Quantity: Refills: 0 oxyCODONE 5 mg/5 mL Soln Commonly known as: Roxicodone Take 5 mLs by mouth every 4 hours as needed for Pain. 5 mg Quantity: 150 mL Refills: 0 ursodioL 300 mg Cap Commonly known as: Actigall Take 1 capsule by mouth 2 times daily for 180 days. Start taking on: December 13, 2019 300 mg Quantity: 60 capsule Refills: 5 Continued medications, unchanged Dose Details aMILoride 5 mg Tab Commonly known as: Midamor Take 5 mg by mouth 2 times daily. 5 mg Refills: 0 buPROPion XL 300 mg Tablet Extended Release 24 hr Commonly known as: Wellbutrin XL Take 1 tablet by mouth every morning. Start taking on: November 30, 2019 300 mg Quantity: 30 tablet Refills: 3 carvediloL 25 mg Tab Commonly known as: Coreg Refills: 0 cholecalciferol (Vitamin D3) 50 mcg (2,000 unit) Cap Take by mouth. Generic drug: cholecalciferol (Vitamin D3) Refills: 0 EPINEPHrine 0.3 mg/0.3 mL Atin Inject 0.3 mg into the muscle once as needed (allergic reaction( difficulty breathing, throat swelling, lightheaded)). Inject 0.3 mL IM once as needed for allergic reaction (Throat tight, difficulty breathing). Call 911 as directed. 0.3 mg Refills: 0 gabapentin 300 mg Cap Commonly known as: Neurontin 300 mg tid Refills: 0 hydroCHLOROthiazide 25 mg Tab Commonly known as: Hydrodiuril Take 1 tablet by mouth 2 times daily. 25 mg Refills: 0 hydrocortisone 2.5 % Crea as needed. Refills: 0 lisinopriL 20 mg Tab Commonly known as: Prinivil;Zestril Take 20 mg by mouth daily. Reported on 06/15/2016 20 mg Refills: 0 Loperamide 1 mg/7.5 mL Liqd Commonly known as: Imodium Take 2 mg by mouth. 2 mg Refills: 0 metFORMIN XR 500 mg Tablet sr Commonly known as: Glucophage XR One tab twice daily. Quantity: 120 tablet Refills: 3 multivitamin Tab Commonly known as: THERAGRAN Take 1 tablet by mouth daily. 1 tablet Refills: 0 omeprazole 40 mg Cpdr Commonly known as: PriLOSEC Take 40 mg by mouth daily. 40 mg Refills: 0 ondansetron 4 mg Tab Commonly known as: Zofran Take 4 mg by mouth every 8 hours as needed for Nausea. 4 mg Refills: 0 potassium chloride ER 20 mEq Tbtq Commonly known as: K-Dur/Klor-Con Take 40 mEq by mouth 2 times daily. 40 mEq Refills: 0 pramipexole 0.25 mg Tab Commonly known as: Mirapex Take 0.25 mg by mouth daily. One tab pm/ 2 tabs qhs 0.25 mg Refills: 0 triamcinolone 0.5 % Crea Commonly known as: ARISTOCORT Apply topically as needed. Refills: 0 Disposition: Home Allergies: Allergies Allergen Reactions ??? Atropine CIS - redness and bodily swelling ??? Eplerenone ??? Iron Shortness Of Breath Experienced swelling and shortness of breath after an infusion. This was dose related and she has had infusions since without issue. ??? Spironolactone Rash Outpatient Services/Studies: No discharge procedures on file. Scheduled Appointments: Future Appointments and Orders Future Appointments and Orders Future Appointments Provider Department Dept Phone 12/15/2019 8:[address]; Rylie Rea APRN General Surgery at [facility] [place]rive at: [facility] [phone] 03/30/2020 11:[address]; Rylie Rea APRN General Surgery at [facility] Arrive at: [facility] [phone] Instructions Given to Patient at Discharge: Patient Instructions BARIATRIC SURGERY DISCHARGE INFORMATION BARIATRIC SUPPORT TEAM CONTACT NUMBERS (Mon-Fri 8am - 5pm): General Surgery and Bariatric Surgery [phone] Bariatric Surgeons: [facility] [phone] Hide And Skin Processing Worker: [phone] Dietitians: [phone] Outside of regular business hours, including weekends and holidays: Ask for General Surgery resident lead radiation therapist [phone] Please note, this call will be answered by a resident, and they may not be Able to return your call for many hours FOR EMERGENCIES: CALL 911 (trouble breathing, chest [...] after your surgery Follow up Information: You have a surgical followup appointment with The Bariatric Surgery Team in 3 weeks at the General [facility] Outpatient [facility] ([facility] [facility] [address] [place] [address]). Future Appointments Date Time Provider Department Center 12/15/2019 8:30 AM Rylie Rea APRN [facility] 03/30/2020 11:00 AM Rylie Rea APRN [facility] BATHING AND WOUND CARE: ?? You may [...] feel comfortable. ?? Do not drive for if you are taking narcotic pain medication. When you are no longer taking narcotic pain medication and when it no longer causes pain to get in and out of the vehicle, you may drive when comfortable. DIET: ?? Follow Stage II diet for [...] weeks after surgery BLOOD CLOT PREVENTION: ?? You do not meet scoring criteria to be discharged on medication to prevent blood clots. Be active, walk at least 4 times a day and do blood clot prevention exercises in your handbook on page 82. IF YOU ARE TREATED FOR OBSTRUCTIVE SLEEP [...] - you must take acid suppressing medication for 3 MONTHS after surgery. This is taken to prevent ulcers at your surgical sites internally, even if you do not have heartburn. ?? omeprazole 20 [...] purchase these medications over the counter. ?? You will continue this after the initial 3 month course if you have heartburn or reflux GALLSTONE PREVENTION: ?? If you have had [...] ?? Discontinue anti-inflammatory non-steroidal medications, such as Advil, Aleve, etc. Refer to Medications that may increase [...] 200 on more than 3 checks, [facility] or [facility] specialist for recommendations. For patients on insulin and oral diabetic medications: If blood sugar is over 200 on 3 checks, call your primary care doctor or diabetic specialist for recommendations. ?? Follow up with primary care provider or project management specialist in 1-2 weeks in order to [...] PCP appointments. PATIENTS WHO TAKE DIURETICS (WATER PILLS): ?? Check with your surgical team prior [...] 500 mcg pill daily Complete multivitamin w/ minerals One pill twice daily. If a bariatric specific multivitamin, followthe package directions Calcium Calcium citrate 600 mg with vitamin D [...] dietitian and Bariatric nurse practitioner at 4, 12, 18, and 24 months, then yearly for life. General Instructions None Future Appointments and Orders Future Appointments and Orders Future Appointments Provider Department Dept Phone 12/15/2019 8:[address]; Rylie Rea APRN General Surgery at [facility] Arrive at: [place] [facility] [phone] 03/30/2020 11:[address]; Rylie Rea APRN General Surgery at [facility] Arrive at: [facility] Signed: Keon Roberson MD 11/29/2019 Primary [place] Physician: Huyen Ramon DO [address] [facility] [id number] documented in this encounter Discharge Instructions Patient InstructionsKeon Roberson MD - 11/29/2019 10:31 AM EDT BARIATRIC SURGERY DISCHARGE INFORMATION BARIATRIC SUPPORT TEAM CONTACT NUMBERS (Mon-Fri 8am - 5pm): General Surgery and Bariatric Surgery [phone] Bariatric Surgeons: [facility] [phone] Hide And Skin Processing Worker: [phone] Dietitians: [phone] Outside of regular business hours, including weekends and holidays: Ask for General Surgery resident lead radiation therapist [phone] Please note, this call will be answered by a resident, and they may not be Able to return your call for many hours FOR EMERGENCIES: CALL 911 (trouble breathing, chest [...] after your surgery Follow up Information: You have a surgical followup appointment with The Bariatric Surgery Team in 3 weeks at the General Surgery Outpatient Clinic ([facility], [facility]). Future Appointments Date Time Provider Department Center 12/15/2019 8:30 AM Rylie Rea APRN [facility] 03/30/2020 11:00 AM Rylie Rea APRN [facility] BATHING AND WOUND CARE: ?? You may [...] feel comfortable. ?? Do not drive for if you are taking narcotic pain medication. When you are no longer taking narcotic pain medication and when it no longer causes pain to get in and out of the vehicle, you may drive when comfortable. DIET: ?? Follow Stage II diet for [...] weeks after surgery BLOOD CLOT PREVENTION: ?? You do not meet scoring criteria to be discharged on medication to prevent blood clots. Be active, walk at least 4 times a day and do blood clot prevention exercises in your handbook on page 82. IF YOU ARE TREATED FOR OBSTRUCTIVE SLEEP [...] - you must take acid suppressing medication for 3 MONTHS after surgery. This is taken to prevent ulcers at your surgical sites internally, even if you do not have heartburn. ?? omeprazole 20 [...] purchase these medications over the counter. ?? You will continue this after the initial 3 month course if you have heartburn or reflux GALLSTONE PREVENTION: ?? If you have had [...] ?? Discontinue anti-inflammatory non-steroidal medications, such as Advil, Aleve, etc. Refer to Medications that may increase [...] 200 on more than 3 checks, call yourprimary care physician or diabetic specialist for recommendations. For patients on insulin and oral diabetic medications: If blood sugar is over 200 on 3 checks, call your primary care doctor or diabetic specialist for recommendations. ?? Follow up with primary care provider or project management specialist in 1-2 weeks in order to [...] PCP appointments. PATIENTS WHO TAKE DIURETICS (WATER PILLS): ?? Check with your surgical team prior [...] 500 mcg pill daily Complete multivitamin w/ minerals One pill twice daily. If a bariatric specific multivitamin, followthe package directions Calcium Calcium citrate 600 mg with vitamin D [...] dietitian and Bariatric nurse practitioner at 4, 12, 18, and 24 months, then yearly for life. documented in this encounter Medications at Time of Discharge [...] by 0 Capsule, Delayed mouth daily. Release(E.C.) ursodioL (Actigall) 300 mg Take 1 capsule by 60 capsule 5 06/10/2020 Capsule mouth 2 times daily for 180 days. acetaminophen (Tylenol) 650 Take 20.3 mLs by 0 04/12/2021 mg/20.3 mL Solution mouth every 4 hours as needed (Mild pain 1-3). oxyCODONE (Roxicodone) 5 Take 5 mLs by 150 mL 0 11/29/19 20 12/15/2019 mg/5 mL Solution mouth every 4 hours as needed for Pain. cholecalciferol, Vitamin Take by mouth. 0 12/28/2020 [...] as needed. documented as of this encounter Progress Notes Anurag Bills RN - 11/29/2019 3:21 PM EDT Patient discharged to home. Reviewed after visit summary with patient and significant other. Patientaware of when and why to notify MD. Patient had no questions regarding discharge teaching. Patent aware of follow up appointments. Prescriptions received. IV's DC'd, patient belongings gathered. Patient left in personal clothing. Patient left to family vehicle at approximately 1515. Keon Roberson MD - 11/29/2019 10:17 AM EDT INPATIENT DAILY PROGRESS NOTE Patient Name: Monisha Das Patient Age: 48 y.o. Birthdate: 1970 Admit date: 11/28/2019 Attending Physician: Nusrat Garcia MD ID: Monisha Das is a 48 y.o. female s/p laparoscopic RYGB Recent events/symptoms: - No events overnight - Pain well controlled, ambulating and voiding without issue - Advanced to stage 1 diet this morning O: Last value Range last 24hrs Temperature Temp: 37.2 ??C (99 ??F) Temp: [36.2 ??C (97.2 ??F)-37.2 ??C (99 ??F)] Heart Rate Heart Rate: 64 Heart Rate: [64-72] Blood Pressure BP: 143/78 BP: (120-160)/(71-103) Respiratory Rate Resp: 18 Resp: [10-18] SpO2 SpO2: 99 % SpO2: [94 %-100 %] Body mass index is 42.05 kg/m??. 11/27 0701 - 11/28 0700 In: 3040 [P.O.:240; I.V.:2800] Out: 861 [Urine:850] Gastric Bypass diet Stage I-Clear Intake/Output Summary (Last 24 hours) at 11/29/2019 1019 Last data filed at 11/29/2019 0800 Gross per 24 hour Intake 3045 ml Output 1061 ml Net 1984 ml Physical Exam: General: no distress, A&Ox3, resting in bed, cooperative and pleasant HEENT: normocephalic, atraumatic, no scleral icterus CVS: regular rate and rhythm Pulm: clear to auscultation bilaterally,, breathing comfortably on room air Abd: soft, minimally tender, non-distended, incisions c/d/i with no erythema or drainage Ext: warm and well perfused, no edema Neuro: Grossly intact, nonfocal, moving all four extremities spontaneously. Recent Labs 11/29/19 0347 WBC 10.6* HGB 13.2 HCT 38.8 PLATELET 323 Recent Labs 11/29/19 0347 NA 136 K 4.0 CL 101 CO2 23 BUN 13 CREATININE 0.80 GLUCOSE 123 CALCIUM 9.1 MAGNESIUM 0.72 PHOS 3.6 Micro: None New Imaging: None ASSESSMENT: Monisha Das is a 48 y.o. female 1 Day Post-Op s/p laparoscopic luis antonio en y gastric bypass. Overall recovering well. Advanced to stage 1 diet this morning. - Pain control: tylenol, oxycodone - Stage 1 diet this morning; plan to advance to stage 2 midday if tolerating appropriately - Continue ambulation and IS - Anticipate discharge to home later today vs tomorrow Code status: Full Keon Roberson MD 11/29/2019 Minimally Invasive Surgery [id number].[phone] Mayra Thrasher RN - 11/29/2019 4:32 AM EDTSummary: Trace edema to BUE Provider aware - to leave IVF at this time. Will be rounding shortly. Wctm closely. Mayra Thrasher RN - 11/28/2019 11:34 PM EDT Pt denies all - will reasses Cecelia Gloria RN - 11/28/2019 6:52 PM EDT Pt met phase 1 recovery at 1800 with small amount of pain primarily cramping. Small amount of dilaudid was given as pt very sleepy. Pt does arouse to voice and is oriented x 4. Lap sites have some shadowing. Warm pack applied to abdomen for cramping with some effect. 1844- Handoff report called to LORELEI Nunez on 4W. Awaiting for change of shift and will then place pt for transportation to the floor. Laina Soria RN - 11/28/2019 4:54 PM EDT Pt to PACU via bed from OR; monitors applied, alarms set and audible. Abd lap sites with scant shadow drainage, covered with steri-strips and band-aids. Pt denies pain and nausea when asked. Report given to LORELEI Ashley. documented in this encounter H&P Notes Thomas Freire MD - 11/28/2019 11:38 AM EDT H&P 24hr interval update/Pre-operative note Please see Dr. Garcia's note from clinic on 11/27 for further information. ID: Monisha Das is a 48 y.o. female with a hx of morbid obesity (BMI 42) who presents for elective laparoscopic luis antonio en Y gastric bypass. S: Monisha Das endorses no recent change in health. Denies any fever, chills, cough, congestion, change in bowel habits. Prior to arrival today, Monisha Das was in a normal state of health. O: Physical Exam: Patient Vitals for the past 24 hrs: Temp Pulse Resp BP SpO2 11/28/19 1125 36.6 ??C (97.9 ??F) 72 16 135/87 100 % Gen: AAOx3, resting comfortably CVS: regular rate Pulm: Unlabored breathing on room air, no audible wheezes Abd: obese, soft, non tender, non distended Ext: wwp A/P: Monisha Das is a 48 y.o. female who presents for planned laparoscopic luis antonio en Y gastric bypass. Will proceed with planned operation. Thomas Freire MD 11/28/2019 General Surgery [id number] documented in this encounter Miscellaneous Notes Plan of Care - Mayra Thrasher RN - 11/29/2019 4:59 AM EDT Problem: Patient Care Overview Goal: Plan of Care Review Outcome: Ongoing (Interventions Implemented as Appropriate) 11/29/19 0448 Coping/Psychosocial Plan Of Care Reviewed With patient Plan of Care Review Progress improving OUTCOME EVALUATION NOTE: OUTCOME SUMMARY: Pt presents to [facility] room 410A at 1950 s/p lap gastroplasty. Pt A&Ox4. VSS w/ occasional elevated BP, stable asymptomatic. Assessment as charted. Pt w/ 6 lap sites to abd. Medicated throughout night for pain and nausea per MAR with good effect. OOB with standby assist. Voiding without difficulty. Bowel sounds hypoactive, negative for flatus, wctm. Pt up and ambulating in halls with this RN in theearly AM with good effort. Pt noted with trace edema to BUE around 0400. Denies SOB and remains stable asymptomatic, provider made aware and will be rounding shortly on pt. Pt currently resting in bed with eyes closed, wctm. PLAN MOVING FORWARD: Monitor I & O, Monitor /GI status, Nausea and pain control INDIVIDUALIZED FALL PREVENTION INTERVENTIONS: Patient-specific fall risk factors per assessment: Generalized weakness s/p gastroplasty Assistance: SBA Supervision: Independent, Eyes on Surveillance: Bed locked in low position, call springer within reach, purposeful hourly rounding, clutter free environment, bed/chair alarm on, family at bedside Patient-specific fall prevention interventions for sensory deficits provided: Yes CPG GOAL OUTCOME EVALUATION: Continue care plan as documented. Op Note - Nusrat Garcia MD - 11/28/2019 4:22 PM EDT [facility] Operative Note Patient Name: Monisha Das : [id number] MR#: [id number] Case Date: 11/28/2019 Surgeon: Surgeon(s) and Role: * Nusrat Garcia MD - Primary * Thomas Freire MD - Resident Preoperative diagnosis: MORBID OBESITY Postoperative diagnosis: MORBID OBESITY Procedure(s) (LRB): @LAPAROSCOPIC GASTROPLASTY W/ LUIS ANTONIO-EN-Y CONSTRUCTION (WRVU 29.4) (N/A) EGD, UPPER GI ENDOSCOPY (N/A) Findings: Normal liver, negative leak test Anesthesia: General Estimated Blood Loss: 11 mL Specimens removed during surgery: None Drains: None Surgical Closure: Primary Closure - skin incision is completely closed without any wires, garcía, drains or other devices Disposition: awakened from anesthesia, extubated and taken to the recovery room in a stable condition, having suffered no apparent untoward event. Condition: doing well without problems (Please see the Surgical Encounter Summary for any Implant and Specimen details pertinent to this patient.) HPI/Indications for procedure: This 48 y.o. female presented to the Bariatric Program with a history of weight-related problems including significant weight-related comorbidities. She meets the NIH criteria for gastric bypass. The risks and benefits of the procedure were explained and she chose to undergo this procedure laparoscopically. Description of procedure: The patient was brought back to the operating room and placed in supine position. IV antibiotics were infused and pneumoboots were placed. She received Lovenox in the preop holding area. Under general anesthesia and endotracheal intubation, the patient was prepped and draped in the supine position. After injection with 0.25% marcaine, a small incision was made approximately 15 cm below the xiphoid from the left of midline. The abdomen was then entered using the [employer] trocar system using an 11-mm port. The abdomen was then insufflated to 15 mm Hg without difficulty. A 45-degree telescope was inserted, and under direct vision, two 5-mm ports were placed in the left upper quadrant forming the first arm of a V with the scope at the apex. A 5-mm port was placed approximately 15-cm along the right costal margin, through which a liver retractor was placed and used to elevate the left lobe of the liver, thus exposing the hiatal region. This was fixed in good position using the mechanical arm. A 5-mm port was placed approximately 10 cm along the right costal margin and a 12- mm port was placed approximately 4 cm below this. A small window was made along the vasculature of the lesser curve, approximately 5 cm from the hiatus. Eventually, the vasculature was from the lesser curve and the posterior, lesser sac was entered. The hiatal region was freed up of some attachments to the diaphragm, thus exposing the left boris. There was no significant hiatal hernia. A firing of an endo-LENIN 60 stapler with a purple load in a transverse direction across the stomach was performed. The stapler was then fired multiple times with thomas loads until a small narrow pouch was created. The pouch accommodated a volume of approximately 20 cc to 30 cc. The patient was then placed into some Trendelenburg position. The omentum and transverse colon reflected cephalad. The ligament of Treitz was identified and dissection was carried along approximately 40 cm from the ligament of Treitz. A small window was made in the small bowel mesentery and a stapler was introduced through this to create a firing of the stapler and divide the small bowel. The harmonic scalpel was used to divide the mesentery for a Rouxlimb. At a point approximately 100 cm, the distal bowel was chosen to create the rcwo-ub-ceft jejunojejunostomy. The duodenal, afferent limb was approximated to the side wall of the jejunum at the 100-cm jamey. Enterotomies were made in both and a single firing of an EndoGIA thomas load was used to create anastomosis. The resultant defect was sewn in two layers of running 2-0 Surgilon suture. A split was made in the omentum using the harmonic scalpel just above the transverse colon and the Luis Antonio limb fed through this. Two stay stitches in the side wall of the Luis Antonio limb were approximated to the end of the gastric pouch. An enterotomy was made in the gastric pouch and the jejunostomy and a partial-length firing of the LENIN-45 thomas stapler was used to create the anastomosis between this pouch and the jejunum. The resultant enterotomy defect was closed with a running 2- 0 Surgilon suture in two layers with a 30 Kazakh Bougie (blunt-tipped) in place. The Bougie was then removed and the Luis Antonio limb clamped with a bowel clamp. The endoscope was introduced and the pouch and anastomosis was insufflated under saline. Inspection of the anastomosisdid not reveal any leak. It appeared to be patent and allowed passage of an endoscope without resistance. The mesenteric defect behind the J-J anastomosis was then closed with a running 3-0 vloc suture. Womack's defect below the transverse colon was also closed with a running 3-0 vloc. Inspection of the abdomen revealed excellent hemostasis. All ports were then removed under direct vision and the skin was closed with running subcuticular 4-0 Monocryl suture, followed by Steri- Strips and Band-aids. The patient returned to the Recovery Room in stable conditions. Sponge, instrument and needle counts were correct. I was the attending physician supervising the resident in the above care and I was present with the resident for the entire procedure. Infection Bundle used? N/A documented in this encounter Plan of Treatment Upcoming Encounters Date Type Specialty Care Team Description 02/08/2022 TH Visit (TeleHealth) General Surgery Rylie Rea, [employer] [facility] [place] [address] [facility] [place] [address] documented as of this encounter Goals Goal [...] protein any time you're eating Lifestyle Sandy Santana, SAM Note: Formatting of this note might be d ifferent from the original. Pair fruits with dairy/nuts or other pro teins Aim to think more about the food groups and gather information about what's working now instead of necessarily needing to be at a particular calorie number right now documented as of this encounter Procedures Procedure Name Priority Date/Time Associated Comments Diagnosis HEMOGRAM Routine 11/29/2019 3:47 AM Results f or this EDT procedure are i n the results section. DIFFERENTIAL, Routine 11/29/2019 3:47 AM Results for this AUTOMATED EDT procedure are i n the results section. HC CBC,PLT & AUTO Routine 11/29/2019 3:47 AM DIFF EDT HC PHOSPHORUS, SERUM Routine 11/29/2019 3:47 AM R esults for this EDT procedure are i n the results section. HC MAGNESIUM, SERUM Routine 11/29/2019 3:47 AM Re sults for this EDT procedure are i n the results section. BASIC METABOLIC PANEL Routine 11/29/2019 3:47 AM Results for this (NON-FASTING) EDT procedure are in the results section. POCT GLUCOSE Routine 11/28/2019 5:19 PM Results f or this EDT procedure are i n the results section. EGD, UPPER GI 11/28/2019 1:09 PM [facility] ENDOSCOPY EDT @LAPAROSCOPIC 11/28/2019 1:09 PM [facility] GASTROPLASTY W/ EDT LUIS ANTONIO-EN-Y CONSTRUCTION (WRVU 29.4) POCT GLUCOSE Routine 11/28/2019 11:32 Results for this AM EDT procedure are i n the results section. documented in this encounter Results (ABNORMAL) Differential, Automated (11/29/2019 3:47 AM EDT) [facility] gist Method Time Signature Neutrophils % 79.7 % [facility] Neutr Abs (ANC) 8.50 (H) 1.70 - [facility] 6.10 [facility] x10(3[facility] LABORATORY Lymphocytes % 14.4 % [facility] Lymphocytes Abs 1.5 0.9 - 3.2 [facility] x10(3)/[facility] LABORATORY Monocytes % 5.2 % [facility] Monocyte Abs 0.6 0.3 - 0.9 [facility] x10(3)/[facility] LABORATORY Eosinophils % 0.0 % [facility] Eosinophils Abs 0.0 0.0 - 0.4 [facility] x10(3)/[facility] LABORATORY Basophils % 0.2 % [facility] Basophils Abs 0.0 0.0 - 0.1 [facility] x10(3)/[facility] LABORATORY Immature Gran % 0.50 % [facility] Comment: Immature granulocytes(IG's)percentage an d absolute count will include metamyelocytes, myelocytes, and promyelo cytes. Blood smears from CBCs yielding IG's will be scanned manually for concor dance. If this scan disagrees with the automated IG or if promyelocytes are not ed, a manual differential will be performed. Alfreda Gran Abs 0.05 (H) 0.00 - 0.04 x10(3)/[facility] LABORATORY Specimen Anatomical Collection Method Collection Time Receive d Time (Source) Location / / Volume Laterality Blood specimen 11/29/2019 3:47 AM 020 4:16 (specimen) EDT AM EDT Resulting Agency Comment Spec In Lab Thomas Freire MD HEMATOLOGY ORDERABLES Performing Organization Address City/State/ZIP [place] [address] (ABNORMAL) Hemogram (11/29/2019 3:47 AM EDT) Analysis Performed At Patho logist Time Signature WBC 10.6 (H) 4.0 - 9.5 [facility] x10(3)/[facility] LABORATORY RBC 4.52 4.00 - [facility] 5.21 [facility] x10(6)/[facility] LABORATORY Hemoglobin 13.2 11.7 - [facility] 15.5 gm/dL [facility] Hematocrit 38.8 35.7 - [facility] 45.8 % [facility] MCV 85.8 82.6 - [facility] 94.4 fL [facility] MCH 29.2 27.1 - [facility] pg [facility] MCHC 34.0 31.7 - [facility] 35.0 gm/dL [facility] Platelets 323 145 - 357 [facility] x10(3)/[facility] LABORATORY RDWSD 41.8 37.0 - [facility] RAJ 46.0 [facility] LABORATORY RDWCV 13.3 11.5 - [facility] 14.1 % [facility] MPV 9.8 7.6 - 12.9 [facility] LABORATORY nRBC % Auto 0.0 % [facility] nRBC Abs Auto 0.000 0.000 - [facility] 0.000 [facility] x10(3)/[facility] LABORATORY Specimen Anatomical Collection Method Collection Time Receive d Time (Source) Location / / Volume Laterality Blood specimen 11/29/2019 3:47 AM 020 4:16 (specimen) EDT AM EDT Resulting Agency Comment Spec In Lab Thomas Freire MD HEMATOLOGY ORDERABLES Performing Organization Address City/State/ZIP [place] [address] Basic Metabolic Panel (non-fasting) (11/29/2019 3:47 AM EDT) P athologist Signature Glucose Lvl 123 65 - 199 [facility] mg/dL [facility] Comment: Diabetes: >=200 mg/dL plus symp toms BUN 13 8 - 18 mg/dL [facility] Creatinine 0.80 0.70 - 1.20 mg/dL [facility] Sodium 136 135 - 145 mmol/L [facility] Potassium 4.0 3.5 - 5.0 mmol/L [facility] Comment: Please note: ??Patients with WBC >100,00 0 may have falsely elevated Potassium levels. ??For accurate Potassium quantif ication in these patients send serum separator tube (gold top) for subsequent determinations. ??Contact the Clinical Chemistry Laboratory if there are any qu estions. Chloride 101 98 - 107 mmol/L [facility] CO2 23 22 - 31 mmol/L [facility] Anion Gap 12 5 - 15 mmol/L [facility] Calcium 9.1 8.5 - 10.5 mg/dL [facility] Estimated GFR 87 >=60 mL/min/1.73 m?? [facility] Comment: The eGFR was calculated using the CKD-EP I equation. As with all creatinine based estimates of kidney function, eGFR values calculated with the CKD-EPI equation are not accurate in patients wi th acute kidney failure, extremes of body mass or the acutely ill. http://[employer]/[facility] eGFR 100 >=60 mL/min/1.73 m?? [facility] Comment: The eGFR was calculated using the CKD-EP I equation. As with all creatinine based estimates of kidney function, eGFR values calculated with the CKD-EPI equation are not accurate in patients wi th acute kidney failure, extremes of body mass or the acutely ill. http://[employer]/[facility]f Specimen Anatomical Collection Method Collection Time Receive d Time (Source) Location / / Volume Laterality Blood specimen 11/29/2019 3:47 AM 020 4:16 (specimen) EDT AM EDT Resulting Agency Comment Spec In Lab Nusrat Garcia MD CHEMISTRY ORDERABLES Performing Organization Address City/[facility]/ZIP Code Phon e Number [address] Phosphorus (11/29/2019 3:47 AM EDT) P athologist Signature Phosphorus 3.6 2.5 - 4.5 [facility] mg/dL [facility] Specimen Anatomical Collection Method Collection Time Receive d Time (Source) Location / / Volume Laterality Blood specimen 11/29/2019 3:47 AM 020 4:16 (specimen) EDT AM EDT Resulting Agency Comment Spec In Lab Nusrat Garcia MD CHEMISTRY ORDERABLES Performing Organization Address City/[facility] Phon e Number [address] Magnesium (11/29/2019 3:47 AM EDT) P athologist Signature Magnesium 0.72 0.69 - 1.07 [place] mmol/L [facility] Specimen Anatomical Collection Method Collection Time Receive d Time (Source) Location / / Volume Laterality Blood specimen 11/29/2019 3:47 AM 020 4:16 (specimen) EDT AM EDT Resulting Agency Comment Spec In Lab Nusrat Garcia MD CHEMISTRY ORDERABLES Performing Organization Address City/[facility]/ZIP Code Phon e Number [address] POCT Glucose (11/28/2019 5:19 PM EDT) athologist Signature POC Glucose 100 65 - 199 [place] [facility] mg/dL [facility] Comment: Supplemental ranges: <140 mg/dL before meals <180 mg/dL all other times of the day Specimen Anatomical Collection Method Collection Time Receive d Time (Source) Location / / Volume Laterality Blood specimen 11/28/2019 5:19 PM 020 5:19 (specimen) EDT PM EDT Nusrat Garcia MD POINT OF CARE TEST ORDERABLE S Performing Organization Address City/[facility]/ZIP Code Phon e Number [address] POCT Glucose (11/28/2019 11:32 AM EDT) athologist Signature POC Glucose 96 65 - 199 [place] [facility] mg/dL [facility] Comment: Supplemental ranges: <140 mg/dL before meals <180 mg/dL all other times of the day Specimen Anatomical Collection Method Collection Time Receive d Time (Source) Location / / Volume Laterality Blood specimen 11/28/2019 11:32 0 (specimen) AM EDT 11:32 AM EDT Nusrat Garcia MD POINT OF CARE TEST ORDERABLE S Performing Organization Address City/[facility]/ZIP Code Phon e Number [address] documented in this encounter Visit Diagnoses Not on filedocumented in this encounter Admitting Diagnoses Diagnosis Morbid obesity documented in this encounter Administered Medications Inactive Administered Medications - up to 3 most recent administrations Medication Order MAR Action Action Date Dose Rate Site aMILoride (Midamor) tablet 5 mg Given 11/29/2019 8:21 AM EDT 5 mg 5 mg, Oral, 2 TIMES DAILY, First dose on Sun11/28/19 at 2100, Until Discontinued, Routine BUpivacaine (PF) (MARCAINE) Given 11/28/2019 2:04 PM EDT 30 mLs 19- Surgical Site 0.25 % (2.5 mg/mL) injection ONCE PRN, Starting on Sun11/28/19 at 1404, Until 11/29/19 at 1725, Intra-Operative (Intra-Procedure), Routine buPROPion XL (Wellbutrin XL) tablet 300 mg Given 11/29/2019 8:07 AM EDT 300 mg 300 mg, Oral, EVERY MORNING, First dose on 11/29/19 at 0700, Until Discontinued, DO NOT CRUSH OR OPEN, Routine carvediloL (Coreg) tablet 25 mg Given 11/29/2019 8:08 AM EDT 25 mg 25 mg, Oral, 2 TIMES DAILY WITH MEALS, First dose on 11/29/19 at 0800, Until Discontinued, Routine enoxaparin (LOVENOX) injection 40 mg Given 11/29/2019 8:08 AM EDT 40 mg 40 mg, Subcutaneous, 2 TIMES DAILY, First dose on Sun11/28/19 at 2100, Until Discontinued, Routine Given 11/28/2019 9:32 PM EDT 40 mg ondansetron (ZOFRAN) injection 4 mg Given 11/28/2019 10:23 PM EDT 4 mg 4 mg, Intravenous, EVERY 8 HOURS PRN, Starting on Sun11/28/19 at 1955, Until 11/29/19 at 1725, Nausea, For nausea please use ondansetron as the first choice; prochlorperazine as a second choice; promethazine as a third choice. Call provider if not effective. oxyCODONE (Roxicodone) (1 mg/mL) oral li quid 5 mg 5 mg, Oral, EVERY 4 HOURS PRN, Starting on 11/29/19 at 0835, Until 11/29/19 at 1725, Pain, Routine pantoprazole (PROTONIX) injection 40 mg Given 11/29/2019 8:08 AM EDT 40 mg 40 mg, Intravenous, 2 TIMES DAILY, First dose on Sun11/28/19 at 2100, Until Discontinued, Reconstitute with 10 mL of normal saline to a concentration of 4 mg/mL and infuse slowly over 2 minutes. , Routine Given 11/28/2019 9:32 PM EDT 40 mg pramipexole (Mirapex) tablet 0.25 mg Given 11/29/2019 9:19 AM EDT 0.25 mg 0.25 mg, Oral, DAILY, First dose on Sun11/29/19 at 0900, Until Discontinued, Routine prochlorperazine (COMPAZINE) injection 1 0 mg Given 11/29/2019 2:58 AM EDT 10 mg 10 mg, Intravenous, EVERY 6 HOURS PRN, Starting on Sun11/28/19 at 1955, Until Sun11/29/19 at 1725, Nausea, Vomiting, For nausea please use ondansetron as the first choice; prochlorperazine as a second choice; promethazine as a third choice. Call provider if not effective., Routine sodium chloride 0.9 % (flush) flush 5 mL Given 11/29/2019 8:07 AM EDT 5 mLs 5 mL, Intravenous, 2 TIMES DAILY, First dose on Sun11/28/19 at 2100, Until Discontinued, Recovery (Recovery-Hospital Unit), Routine Given 11/28/2019 9:32 PM EDT 5 mLs documented in this encounter Active and Recently Administered Medications Times are shown in EDT. Scheduled Medication Order 11/27/2019 11/28/2019 11/29/2019 acetaminophen (Tylenol) tablet 1,000 mg (COMPLETED) 1156 (Given - Provider: Madison Ramirez RN) 1,000 mg, Oral, ONCE, 1 dose, Sun 0 at 1200, Day of Surgery (Day of Procedure), Routine aMILoride (Midamor) tablet 5 mg 2100 (No t Given - Provider: Mayra Thrasher RN - Reason: NPO) 0821 (Given - Provider: Anurag Bills RN) 5 mg, Oral, 2 TIMES DAILY, First dose on Sun11/28/19 at 2100, Until Discontinued, Routine buPROPion XL (Wellbutrin XL) tablet 300 mg 0700 (Hold - Provider: Mayra Thrasher RN - Reason: NPO)0807 (Given - Provider: Anurag Bills, LORELEI) 300 mg, Oral, EVERY MORNING, First dose on Sun11/29/19 at 0700, Until Discontinued, DO NOT CRUSH OR OPEN, Routine carvediloL (Coreg) tablet 25 mg 08 (Given - Provider: Anurag Bills, LORELEI) 25 mg, Oral, 2 TIMES DAILY WITH MEALS, F irst dose on Sun11/29/19 at 0800, Until Discontinued, Routine ceFAZolin (Ancef) 2 g in dextrose 5% 100 mL infusion (COMPLE MAUREEN) 1323 (Given - Provider: Lulu Durham CRNA) 2 g, Intravenous, ONCE, 1 dose, 11/27 at 1200, Administer over 30 Minutes, Indication for (Active or Suspected): Prophylaxis enoxaparin (LOVENOX) injection 40 mg (COMPLETED) 1156 (Given - Provider: Madison Ramirez, LORELEI) 40 mg, Subcutaneous, ONCE, 1 dose, Sun11/28/19 at 1200, Routine enoxaparin (LOVENOX) injection 40 mg 213 (Given - Provider: Mayra Thrasher RN) 08 (Given - Provider: Anurag Bills RN) 40 mg, Subcutaneous, 2 TIMES DAILY, Firs t dose on Sun11/28/19 at 2100, Until Discontinued, Routine pantoprazole (PROTONIX) injection 40 mg 213 (Given - Provider: Mayra Thrasher RN) 0808 (Given - Provider: Anurag Bills RN) 40 mg, Intravenous, 2 TIMES DAILY, First dose on Sun11/28/19 at 2100, Until Discontinued, Reconstitute with 10 mL of normal saline to a concentration of 4 mg/mL and infuse slowly over 2 minutes. , Routine pramipexole (Mirapex) tablet 0.25 mg 918 (Given - Provider: Anurag Bills RN) 0.25 mg, Oral, DAILY, First dose on Sun11/29/19 at 0900, Until Discontinued, Routine sodium chloride 0.9 % (flush) flush 5 mL 2131 (Given - Provider: Mayra Thrasher RN) 08 (Given - Provider: Anurag Bills RN) 5 mL, Intravenous, 2 TIMES DAILY, First dose on Sun11/28/19 at 2100, Until Discontinued, Recovery (Recovery-Hospital Unit), Routine Continuous Medication Order 11/27/2019 11/28/2019 11/29/2019 lactated ringers infusion (CANCELED) 114 9 (New Bag - Provider: Madison Ramirez RN)1446 (New Bag - Provider: Lulu Durham CRNA)1526 (New Bag - Provider: Lulu Durham CRNA)1617 (Anesthesia Volume Adjustment - Provider: Lulu Durham CRNA) 1,000 mL, at 100 mL/hr, Intravenous, CON TINUOUS, Starting Sun11/28/19 at 1200, Until Sun11/28/19 at 1724, Day of Surgery (Day of Procedure) lactated ringers infusion (CANCELED) 170 9 (New Bag - Provider: Laina Soria RN) 0337 (New Bag - Provider: Mayra lara RN)0725 (Stopped - Provider: Monisha Samuel RN) 100 mL/hr, at 100 mL/hr, Intravenous, CO NTINUOUS, Starting Sun11/28/19 at 1730, Until 11/29/19 at 0708, Recovery (Recovery-Hospital Unit) PRN Medication Order 11/27/2019 11/28/2019 11/29/2019 acetaminophen (Tylenol) (32.02 mg/mL) oral liquid 650 mg 650 mg, Oral, EVERY 4 HOURS PRN, Startin g Sun11/28/19 at 1706, Until 11/29/19 at 1725, Pain, Mild pain 1-3, Maximum dose of acetaminophen is 4000 mg from all sources in 24 hours. When ordered for alanis n, acetaminophen should be given even wh en other ordered pain medications are indicated. , Routine BUpivacaine (PF) (MARCAINE) 0.25 % (2.5 mg/mL) injection (CA NCELED) 1404 (Given - Provider: Thomas Freire MD) ONCE PRN, Starting Sun11/28/19 at 1404, Until 11/29/19 at 1725, Intra- Operative (Intra-Procedure), Routine diphenhydrAMINE (BENADRYL) injection 25 mg 25 mg, Intravenous, EVERY 6 HOURS PRN, S tarting 8/28/20 at 1724, Until 11/29/19 at 1725, Itching, Routine HYDROmorphone (DILAUDID) injection 0.2-0.4 mg (CANCELED) 1721 (Given - Provider: Cecelia Gloria, LORELEI) 0.2-0.4 mg, Intravenous, EVERY 5 MIN PRN , Starting Sun11/28/19 at 1615, Until Sun11/28/19 at 1826, Pain, Give 0.2 mg every 5 minutes PRN for mild to moderate pain (1-5) Give 0.4 mg every 5 minutes PRN f or moderate to severe pain (6-10). Hold for respiratory rate less than 10 per minute. Maximum dose 4 mg over one hour. If multiple pain medications are ordered, start with hydromorphone or morphine and use fentanyl for breakthrough pain., PACU Recovery, Routine HYDROmorphone (DILAUDID) injection 0.4 mg (CANCELED) 0003 (Given - Provider: Mayra Thrasher RN) 0.4 mg, Intravenous, EVERY 2 HOURS PRN, Starting Sun11/28/19 at 1955, Until 11/29/19 at 0835, Pain, Moderate-Severe pain 4-10, Routine lidocaine (XYLOCAINE) 10 mg/mL (1 %) injection 3 mg (COMPLET ED) 1149 (Given - Provider: Madison Ramirez RN) 3 mg (0.3 mL), Subcutaneous, ONCE PRN, 1 dose, Starting Sun11/28/19 at 1135, Until Sun11/28/19 at 1149, for discomfort with PIV insertion, Day of Surgery (Day of Procedure), Routine lidocaine (XYLOCAINE) 10 mg/mL (1 %) injection 3 mg 3 mg (0.3 mL), Subcutaneous, ONCE PRN, 1 dose, Starting Sun11/28/19 at 1955, Until 11/29/19 at 1725, for discomfort with PIV insertion, Recovery (Recovery-Hospital Unit), Routine ondansetron (ZOFRAN) injection 4 mg 2223 (Given - Provider: Mayra Thrasher RN) 4 mg, Intravenous, EVERY 8 HOURS PRN, St arting Sun11/28/19 at 1955, Until 11/29/19 at 1725, Nausea, For nausea please use ondansetron as the first choice; prochlorperazine as a second choice; prometh azine as a third choice. Call provider if not effective. oxyCODONE (Roxicodone) (1 mg/mL) oral liquid 5 mg 5 mg, Oral, EVERY 4 HOURS PRN, Starting 11/29/19 at 0835, Until 11/29/19 at 1725, Pain, Routine prochlorperazine (COMPAZINE) injection 10 mg 0258 (Given - Provider: Mayra Thrasher, LORELEI) 10 mg, Intravenous, EVERY 6 HOURS PRN, S tarting 11/28/19 at 1955, Until 11/29/19 at 1725, Nausea, Vomiting, For nausea please use ondansetron as the first choice; prochlorperazine as a second foreman ce; promethazine as a third choice. Call provider if not effecti ve., Routine sodium chloride 0.9 % (flush) flush 5-20 mL 5-20 mL, Intravenous, EVERY 1 MIN PRN, S tarting 11/28/19 at 1955, Until 11/29/19 at 1725, flush, Flush pertains to all indwelling lines. Flush per protocol found in the job aid using the link prov ided on this medication record., Recovery (Recovery-Hospital Uni t), Routine documented in this encounter Care Teams Tester Electronic Scale Relationship Specialty Start Date End Date Huyen Ramon DO PCP - General Family Medicine 04/05/18 [facility] [place] [address] documented as of this encounter
--- OUTSIDE RECORDS SUMMARY | 2022-02-03 02:29 | XMS_ITS | Encounter Summary ---
:1970 Author Organization [facility] [address] Care Team Providers Name Role Phone NicaHuyen urena Primary Care Provider Encounter Details Date Type Department Care Team Description 11/25/[address] [place] [address] Social History Tobacco Use Types Packs/Day [...] Visit (TeleHealth) General Surgery Rylie Rea M, SENIOR PORTFOLIO MANAGER [facility] [place] [address] Keiry Chatterjee, RD [facility] [place] [address] documented as of this encounter Goals Goal [...] Date/Time Associated Diagnosis Comme nts COVID-19 PCR STAT 11/25/2019 2:00 PM COVID-19 Results f or this EDT procedure are i n the results section . documented in this encounter Results COVID-19 PCR (11/25/2019 2:00 PM EDT) [facility] Method Time Signature SARS-CoV-2 Not Detected Not Detected ROSETTE GUIDRY [facility] Comment: This result should be interpreted in com bination with the clinical observations, patient history and epidem iological information. For testing of asymptomatic individuals, assay performa nce characteristics and clinical utility have not been evaluated. Testing for SARS-CoV-2 (Severe acute respiratory syndrome coronavirus 2, form erly known as 2018 novel coronavirus or 2018-nCoV) to aid in the diagnosis of CO VID-19 is performed using the T[employer]ent[employer] RealTime SARS-CoV-2 as authorized by the FDA Emergency Use Authorization (EUA). This EUA assay is intended for In-vitro Diagnostic (IVD) use with respiratory specimens such as nasopharyngeal swabs c ollected from individuals during the acute phase of infection. This assay is performed based on the instructions for use provided by the Shopcaster and additional guidance provided by CDC and FDA. Testing is performed in the [facility] within the Department of Path ology and Laboratory Medicine at [facility], cert ified under the Clinical Laboratory Improvement Amendments of 1988 (CLIA), 4 2 U.S.C. section 263a, to perform high complexity tests. Assay performance has been verified according to clinical laboratory regulatory requirements. Test results are provided above. A resul t of Not Detected indicates that the viral RNA target is not present but does not preclude SARS-CoV-2 infection. False negative results may occur if a sp ecimen is improperly collected, transported or handled; if amplification inhibitors are present; or if inadequate numbers of viral particles ar e present in the specimen. A result of Detected suggests a current or recent infection and the patient is presumed to be infected. As required or requested by public health authorities, positive specimens may be sent for additional huong ting. Positive and negative predictive values for this test are highly dependen t on disease prevalence. A result of Invalid indicates that neither the vir al RNA targets nor the internal control target was detected. An invalid result s uggests the presence of inhibitors. Recollection is recommended in the case of an invalid result. CDC COVID-19 criteria for testing on hum an specimens and clinical management guidance information are available at [facility] Coronavirus Disease 2019 (COVID-19) webpage under Information fo r Healthcare Professionals (https://www.cdc.gov/coronavirus/2019-nc ov/hcp/index.html) Additional information about this and ot her EUA tests can be found in provider and patient fact sheets at the following FDA website: https://www.fda.gov/medical-devices/cnmaxfqlq-vjcymuejno-llwsdgy-devices/emergen sh-wal-kishdbywrbvtut#zhymt00iun SARS-Cov-2 RNA Source DECISION SCIENCE ANALYST Swab [facility] Specimen (Source) Anatomical Collection Method Collection Time Re ceived Time Location / / Volume Laterality Nasopharyngeal swab 11/25/2019 2:00 11/24 (specimen) PM EDT 2:00 PM EDT Comment: Symptoms->Asymptomatic Resulting Agency Comment Spec In Lab Nusrat Garcia MD MICROBIOLOGY - GENERAL ORDER DAVIAN Performing Organization Address City/State/[place] [address] documented in this encounter Visit Diagnoses Diagnosis COVID-19 documented in this encounter Care Teams Missile Pad Mechanic Relationship Specialty Start Date End Date Huyen Ramon DO PCP - General Family Medicine 04/05/[address] [place] [address] documented as of this encounter
--- OUTSIDE RECORDS SUMMARY | 2022-02-03 02:29 | XMS_ITS | Encounter Summary ---
:1970 Author Organization [facility] [place] [address] Care Team Providers Name Role Phone TristenStefanijenna Tucker DO Primary Care Provider Reason for Visit Auth/Cert Specialty Diagnoses / Procedures Referred By Contact Refer red To Contact Diagnoses Morbid obesity MORBID OBESITY Procedures PRO LAP GASTRIC BYPASS/LUIS ANTONIO-EN-Y @LAPAROSCOPIC GASTROPLASTY W/ LUIS ANTONIO-EN-Y CONSTRUCTION (WRVU 29.4) Referral ID Status Reason Start Date Expiration Date Visits Requ ested Visits Authorized [id number] 1 1 Encounter Details Date Type Department Care Team Description 11/25/2019 Hospital Encounter [facility] [place] [address] Social History Tobacco Use Types Packs/Day [...] every 4 hours as needed for Pain. ondansetron (Zofran) 4 mg Take 1 tablet by 30 tablet 1 11/0111/29/2019 Tablet mouth daily as needed for Nausea. cholecalciferol, Vitamin Take by mouth. 0 12/28/2020 [...] mg mouth daily. Tablet Reported on 06/15/2016 buPROPion (WELLBUTRIN XL) Take 300 mg by 0 11/29/2019 300 mg Tablet Sustained mouth every Release 24 hr morning. triamcinolone (ARISTOCORT) Apply topically 0 12/28/2020 0.5 % Cream as needed. documented as of this encounter Plan of Treatment Upcoming Encounters Date Type Specialty Care Team Description 02/08/2022 TH Visit (TeleHealth) General Surgery Rylie Rea, CUSTOMER OPERATIONS REPRESENTATIVE [facility] [place] [address] Keiry Chatterjee, RD [facility] [place] [address] documented as of this encounter Goals Goal [...] on filedocumented in this encounter Care Teams Ethylene Oxide Panelboard Operator Relationship Specialty Start Date End Date Huyen Ramon DO PCP - General Family Medicine 04/05/[address] [place] [address] documented as of this encounter
--- OUTSIDE RECORDS SUMMARY | 2022-02-03 02:29 | XMS_ITS | Encounter Summary ---
:1970 Author Organization [facility] [place] [address] Care Team Providers Name Role Phone Tristen Huyenjenna Tucker DO Primary Care Provider Encounter Details Date Type Department Care Team Description 10/15/2019 Telephone Weight and Wellness at [facility] Izabela Hall [address] [place] [address] Social History Tobacco Use Types Packs/Day [...] TH Visit (TeleHealth) General Surgery Rylie Rea, JAMMER HOOKER [place] [address] Keiry Chatterjee, RD [facility] [place] [address] documented as of this encounter Goals Goal Patient Goal Associated Recent Patient-Stated? Author Type Problems Progress increase Lifestyle On track No Ayala, active minutes (08/29/2019 Linda Arcos, goal 10:03 AM EDT) [...] on filedocumented in this encounter Care Teams Associate Professor Of Literacy Relationship Specialty Start Date End Date Huyen Ramon DO PCP - General Family Medicine 04/05/18 [facility] [place] [address] documented as of this encounter
--- OUTSIDE RECORDS SUMMARY | 2022-02-03 02:29 | XMS_ITS | Encounter Summary ---
:1970 Author Organization [facility] [place] [address] Care Team Providers Name Role Phone Huyen Ramon DO Primary Care Provider Encounter Details Date Type Department Care Team Description 08/20/2019 Telephone Weight and Wellness at [facility] Ajay Martin, [facility] [address] [place] [address] Social History Tobacco Use Types Packs/Day Years Used Date Never Smoker Smokeless Tobacco: Never Used Alcohol Use Standard Drinks/Week Comments No 0 (1 standard drink = 0.6 oz pure alcoho l) Sex Assigned at Date Recorded Not on file documented as of this encounter Miscellaneous Notes Telephone Encounter - Glenna Martin, [facility] - 08/20/2019 10:40 AM EDT [facility] Bail Bond Agent Pre-telemedicine Visit Phone Note Monisha Das 1970 Current medications/allergies: ??? metFORMIN XR (Glucophage XR) 500 mg Tablet Sustained Release 24 hr ??? semaglutide 3 mg Tablet ??? aMILoride (Midamor) 5 mg Tablet ??? carvedilol (COREG) 25 mg Tablet ??? hydrocortisone 2.5 % Cream ??? Loperamide (IMODIUM) 1 mg/7.5 mL Liquid ??? SUMAtriptan (IMITREX) 100 mg Tablet ??? multivitamin (THERAGRAN) Tablet ??? EPINEPHrine 0.3 mg/0.3 mL Auto-Injector ??? potassium chloride (K-DUR/KLOR-CON) 20 mEq Tab Sust.Rel. Particle/Crystal ??? ondansetron (ZOFRAN) 4 mg Tablet ??? gabapentin (NEURONTIN) 300 mg Capsule ??? Magnesium 200 mg Tablet ??? omeprazole (PRILOSEC) 40 mg Capsule, Delayed Release(E.C.) ??? pramipexole (MIRAPEX) 0.25 mg Tablet ??? lisinopril (PRINIVIL;ZESTRIL) 20 mg Tablet ??? buPROPion (WELLBUTRIN XL) 300 mg Tablet Sustained Release 24 hr ??? triamcinolone (ARISTOCORT) 0.5 % Cream ??? hydrochlorothiazide (HYDRODIURIL) 25 mg tablet Allergies Allergen Reactions ??? Atropine CIS - redness and bodily swelling ??? Eplerenone ??? Iron ??? Spironolactone Rash [] Patient was not reached: [] No working phone [] Message left to call [phone] [x] Patient was reached and the following information was reviewed/obtained per protocol: [x] Confirmed patient name and date of [x] Confirmed telemedicine software downloaded and functioning [x] Confirmed location of patient. Patient is in [] [place] [x] [place] [x] Confirmed best number to be reached is: [phone] REVIEW: [x] Review of patient medications completed [x] NEW medications include: [x] Confirmed preferred pharmacy: [facility] [] Prescriptions ready to be signed: [x] Documented self reported vital signs from [x] Home [] PCP [] outside PCP Date: 08/20/2019 [x] Weight 265.8 [x] Height 5 5 pt reported [] Blood pressure [] Pulse [x] Asked about any recent labs/studies [] No [x] Yes: [place], [place] [] Labs/vitals requested [] Labs/vitals sent for scanning (secretary to board of commissioners) and entry (RN) [x] Requested 24 hour diet recall -------- [x] Reminded to sign up for MyDH [x] Reminded to complete [facility] survey if message received to do so [] Other information or concerns: FOR FOLLOW-UP VISITS: from mailed intake worksheet Interval History ??? Have you started on any NEW medications? [x] No [] Yes: ??? Any NEW medical conditions? [x] No [] Yes: ??? Any recent hospitalizations? [x] No [] Yes: ??? Family members with NEW diagnosis of cancer? [x] No [] Yes: ? ? How many hours are you sleeping? []<=5 []6 [x]7 []8 []9+ ??? Do you have sleep apnea? [x] No [] Yes: o If yes are you on CPAP/BIPAP [] No [] Yes: o If yes, how many hours are you wearing the mask? []<=5 []6 []7 []8 []9+ ??? Stress Scale: []1 [x]2 []3 []4 []5 []6 []7 []8 []9 []10 NEW symptoms Since last visit are you having any NEW changes in?: ??? Consit: []More hungry [x]Less hungry []More tired during day ??? HEENT: []Visual changes []Changes in taste ??? CV: []Chest pain or discomfort []Palpitations []Increased blood pressure []Increased pulse /heart rate ??? RESP: []Shortness of breath at rest []Cough []Wheezing ??? GI: []Nausea []Vomiting []Constipation []Abdominal pain ??? : []Urinary problems ??? Psych: []Anxiety []Depression []Thoughts of hurting yourself or someone else ??? Neuro: []Feeling light-headed []Headaches []Tingling in arms/legs ??? Musc/Skel: []Joint or muscle problems Patient self-assessment What letter grade (A=doing really well / F = not doing well) would you give yourself for?: ??? Stopping eating after dinner: []A [x]B []C []D []E []F ??? Decreased processed foods: [x]A []B []C []D []E []F ??? 150 minute weekly movement: [x]A []B []C []D []E []F ??? Resistance training 2x/week: [x]A []B []C []D []E []F ??? Taking your medications: [x]A []B []C []D []E []F ??? Consistent bedtimes: []A [x]B []C []D []E []F ??? Daily stress reduction: [x]A []B []C []D []E []F Reviewed 24 hour diet recall, pt agreed to have ready for appointment time. Glenna Maritn CMA documented in this encounter Plan of Treatment Upcoming Encounters Date Type Specialty Care Team Description 02/08/2022 TH Visit (TeleHealth) General Surgery Rylie Rea, REPORTS DEVELOPER [facility] [place] [address] Keiry Chatterjee, RD [facility] [place] [address] documented as of this encounter Goals Goal [...] on filedocumented in this encounter Care Teams Provider Network Analyst Relationship Specialty Start Date End Date Huyen Ramon DO PCP - General Family Medicine 04/05/[address] [place] [address] documented as of this encounter
--- OUTSIDE RECORDS SUMMARY | 2022-02-03 02:29 | XMS_ITS | Encounter Summary ---
:1970 [address] [facility] [place] [address] Care Team Providers Name Role Phone JohanaHuyen sharma Caitlin MOORE Primary Care Provider Encounter Details Date Type Department Care Team Description 12/05/2019 Telephone General Surgery at [facility] [place] [address] Social History Tobacco Use Types Packs/Day Years Used Date Never Smoker Smokeless Tobacco: Never Used Alcohol Use Standard Drinks/Week Comments No 0 (1 standard drink = 0.6 oz pure alcoho l) Sex Assigned at Date Recorded Not on file documented as of this encounter Miscellaneous Notes Telephone Encounter - Reina Sands RN - 12/05/2019 12:09 PM EDTSummary: Patient Can't Eat Patient is S/P Case Date: 11/28/2019 ?? Surgeon: Surgeon(s) and Role: * Nusrat Garcia MD - Primary * Thomas Freire MD - Resident ?? Preoperative diagnosis: MORBID OBESITY ?? Postoperative diagnosis: MORBID OBESITY ?? Procedure(s) (LRB): @LAPAROSCOPIC GASTROPLASTY W/ LUIS ANTONIO-EN-Y CONSTRUCTION (WRVU 29.4) (N/A) EGD, UPPER GI ENDOSCOPY (N/A) ? Findings: Normal liver, negative leak test ?? Anesthesia: General Phones today to state that she is doing OK, but I can't eat, only drink. Phoned back to discuss asshe should be following Stage II Post-Op. Spoke with Monisha at length. She denies pain and is having BM's. She is able to tolerate water and is trying to stay hydrated. Seen by her PCP yesterday and feels she is doing good except she notes a low BP. Monisha is unable to tolerate caloric intake. She explains it like morning sickness, I can't even get the food to my lips. She has only been able to tolerate about 2 oz. Of cream tomato soup. Unable to tolerate yogurt, shakes, etc. Reports that she is only getting about 150 calories daily. She has not been adding protein powder to her soup, which I suggested. Will forward to team and request that she get a call before the holiday weekend. [phone] documented in this encounter Plan of Treatment Upcoming Encounters Date Type Specialty Care Team Description 02/08/2022 TH Visit (TeleHealth) General Surgery Rylie Rea, PARTS FINISHER [facility] [address] Keiry Chatterjee, RD [facility] [place] [address] documented as of this encounter Goals Goal [...] on filedocumented in this encounter Care Teams De Ionizer Operator Relationship Specialty Start Date End Date Huyen Ramon DO PCP - General Family Medicine 04/05/[address] [place] [address] documented as of this encounter
--- OUTSIDE RECORDS SUMMARY | 2022-02-03 02:29 | XMS_ITS | Encounter Summary ---
:1970 Author Organization [facility] [place] [address] Care Team Providers Name Role Phone Huyen Ramon Primary Care Provider Encounter Details Date Type Department Care Team Description 08/21/2019 External [facility] [address] [place] [address] Social History Tobacco Use Types Packs/Day Years Used Date Never Smoker Smokeless Tobacco: Never Used Alcohol Use Standard Drinks/Week Comments No 0 (1 standard drink = 0.6 oz pure alcoho l) Sex Assigned at Date Recorded Not on file documented as of this encounter Progress Notes Forest Snyder RN - 08/21/2019 9:06 AM EDT Lab values added per fax received from PCP office. Thank you, Forest Snyder RN 08/21/2019 9:09 AM documented in this encounter Plan of Treatment Upcoming Encounters Date Type Specialty Care Team Description 02/08/2022 TH Visit (TeleHealth) General Surgery Rylie Rea, PULLER OUT [facility] [place] [address] Keiry Chatterjee, RD [facility] [place] [address] documented as of this encounter Goals Goal [...] a week. documented as of this encounter Procedures Procedure Name Priority Date/Time Associated Diagnosis Comme [facility] EXTERNAL RESULT Routine 08/20/2019 Results for this PANEL procedure are i n the results section . documented in this encounter Results (ABNORMAL) [facility] External Results (08/20/2019) Analysis Performed At Patho logist Time Signature Glucose 139 (ExtH) Fasting Comment: 74-106 BUN 20 (ExtH) Comment: 7-18 Creatinine 1.06 (ExtH) Comment: 0.55-1.02 Sodium 136 Potassium 3.8 Chloride 100 CO2 27 Anion Gap 9 Calcium 9.0 Specimen (Source) Anatomical Location Collection Method / Collectio n Time Received Time / Laterality Volume 08/20/2019 Historical Provider POINT OF CARE TEST ORDERABLE S documented in this encounter Visit Diagnoses Not on filedocumented in this encounter Care Teams Church History Teacher Relationship Specialty Start Date End Date Huyen Ramon DO PCP - General Family Medicine 04/05/[address] [place] [address] documented as of this encounter
--- OUTSIDE RECORDS SUMMARY | 2022-02-03 02:29 | XMS_ITS | Encounter Summary ---
:1970 Author Organization [facility] [place] [address] Care Team Providers Name Role Phone NicaHuyen urena Caitlin MOORE Primary Care Provider Encounter Details Date Type Department Care Team Description 10/10/2019 External Results General Surgery at [facility] [place] [address] Social History Tobacco Use Types Packs/Day [...] Visit (TeleHealth) General Surgery Rylie Rea M, WAREHOUSE TEAM LEADER [facility] [place] [address] Keiry Chatterjee, RD [facility] [place] [address] documented as of this encounter Goals Goal Patient Goal Associated Recent Patient-Stated? Author Type Problems Progress increase Lifestyle On track Candice Cai active ilia (08/29/2019 Linda Arcos, goal 10:03 [...] Name Priority Date/Time Associated Diagnosis Comme nts LAB SCAN Routine 10/06/2019 Results for thi s procedure are in the resu lts section. documented in this encounter Results Scan Doc: Lab (10/06/2019) Narrative This result has an attachment that is no t available. Historical Provider MD MEDIA MGR SCAN EXT ORDR/RSLT documented in this encounter Visit Diagnoses Not on filedocumented in this encounter Care Teams Earth Boring Machine Operator Relationship Specialty Start Date End Date Huyen Ramon DO PCP - General Family Medicine 04/05/[address] [place] [address] documented as of this encounter
--- OUTSIDE RECORDS SUMMARY | 2022-02-03 02:29 | XMS_ITS | Encounter Summary ---
:1970 Author Organization [facility] [place] [address] Care Team Providers Name Role Phone Tristen Huyenjenna Tucker DO Primary Care Provider Encounter Details Date Type Department Care Team Description 08/01/2019 Orders Only Weight and Wellness at Linda Cai MD [facility] [place] [address] CARE [phone] [place], [place] [address] (Wo rk) Social History Tobacco [...] TH Visit (TeleHealth) General Surgery Rylie Rea, WARP HANGER [facility] [address] Keiry Chatterjee, RD [facility] [place] [address] documented as of this encounter Goals Goal [...] practice Lifestyle On track (08/29/2019 10:03 No Snady Russo, RD AM EDT) Note: Formatting of [...] on filedocumented in this encounter Care Teams Painter Tumbling Barrel Relationship Specialty Start Date End Date Huyen Ramon DO PCP - General Family Medicine 04/05/[address] [place] [address] documented as of this encounter
--- OUTSIDE RECORDS SUMMARY | 2022-02-03 02:29 | XMS_ITS | Encounter Summary ---
:1970 Author Organization [facility] [place] [address] Care Team Providers Name Role Phone Huyen Ramon Primary Care Provider Encounter Details Date Type Department Care Team Description 08/22/2019 External Results [facility] [address] [place] [address] Social History Tobacco Use Types Packs/Day Years Used Date Never Smoker Smokeless Tobacco: Never Used Alcohol Use Standard Drinks/Week Comments No 0 (1 standard drink = 0.6 oz pure alcoho l) Sex Assigned at Date Recorded Not on file documented as of this encounter Progress Notes Forest Snyder, RN - 08/22/2019 9:52 AM EDT Per eDH email received from Monisha, added HgbA1c results to chart. Thank you, Forest Snyder RN 08/22/2019 9:53 AM documented in this encounter Plan of Treatment Upcoming Encounters Date Type Specialty Care Team Description 02/08/2022 TH Visit (TeleHealth) General Surgery Rylie Rea, STUD SHEEP FARMER [facility] [place] [address] Keiry Chatterjee, RD [facility] [place] [address] documented as of this encounter Goals Goal [...] Name Priority Date/Time Associated Diagnosis Comme nts HEMOGLOBIN A1C Routine 08/20/2019 Results for t his procedure are in the resu lts section. documented in this encounter Results Hemoglobin A1c (08/20/2019) P athologist Signature Hemoglobin A1C 6.6 Specimen (Source) Anatomical Location Collection Method / Collectio n Time Received Time / Laterality Volume Blood specimen 08/20/2019 (specimen) Historical Provider MD CHEMISTRY ORDERABLES documented in this encounter Visit Diagnoses Not on filedocumented in this encounter Care Teams Radio Division Lieutenant Relationship Specialty Start Date End Date Huyen Ramon DO PCP - General Family Medicine 04/05/[address] [place] [address] documented as of this encounter
--- OUTSIDE RECORDS SUMMARY | 2022-02-03 02:29 | XMS_ITS | Encounter Summary ---
:1970 Author Organization [facility] [place] [address] Care Team Providers Name Role Phone Nicaayanna Huyen Caitlin MOORE Primary Care Provider Encounter Details Date Type Department Care Team Description 10/10/2019 Telephone General [facility] Yolanda To [facility] [place] [phone] Social History Tobacco Use Types Packs/Day Years Used Date Never Smoker Smokeless Tobacco: Never Used Alcohol Use Standard Drinks/Week Comments No 0 (1 standard drink = 0.6 oz pure alcoho l) Sex Assigned at Date Recorded Not on file documented as of this encounter Miscellaneous Notes Telephone Encounter - Yolanda Corcoran - 10/10/2019 9:40 AM EDT Spoke with Izabella at [facility] and explained the case for Monisha, regarding only 3 months of diet counseling; the letter regarding that. Also asked that she print and submit obesity medicine MD notes jairo Moore to back her case further. She understood and said she would do that. documented in this encounter Plan of Treatment Upcoming Encounters Date Type Specialty Care Team Description 02/08/2022 TH Visit (TeleHealth) General Surgery Rylie Rea, [facility] [place] [address] [facility] [place] [address] documented as of this encounter Goals Goal [...] on filedocumented in this encounter Care Teams Grade Tamper Relationship Specialty Start Date End Date Huyen Ramon DO PCP - General Family Medicine 04/05/[address] [place] [address] documented as of this encounter
--- OUTSIDE RECORDS SUMMARY | 2022-02-03 02:29 | XMS_ITS | Encounter Summary ---
:1970 Author Organization [facility] [place] [address] Care Team Providers Name Role Phone NicaHuyen urena Primary Care Provider Encounter Details Date Type Department Care Team Description 10/09/2019 Office Visit General Surgery at [facility] michelle holbrook MD [facility] [place] [address] Morbid obesity with [facility] Ke[address] Chatterjee [address] [facility] [place] [address] BMI of 45.0-49.9, [facility] [place] [address] Social History Tobacco Use Types Packs/Day Years Used Date Never Smoker Smokeless Tobacco: Never Used Alcohol Use Standard Drinks/Week Comments No 0 (1 standard drink = 0.6 oz pure alcoho l) Sex Assigned at Date Recorded Not on file documented as of this encounter Last Filed Vital Signs Vital Sign Reading Time Taken Comments Blood Pressure 124/78 10/09/2019 7:52 AM EDT manual Pulse 72 10/09/2019 7:52 AM EDT Temperature 36.3 ??C (97.4 ??F) 10/09/2019 7:52 AM EDT Respiratory Rate 16 10/09/2019 7:52 AM EDT Oxygen Saturation - - Inhaled Oxygen Concentration - - Weight 121.5 kg (267 lb 12.8 oz) 10/09/2019 7:52 AM EDT Height 163.8 cm (5' 4.49) 10/09/2019 7:52 AM EDT Body Mass Index 45.27 10/09/2019 7:52 AM EDT documented in this encounter Patient Instructions Patient InstructionsShenaKeiry, RD - 10/09/2019 8:00 AM EDT BARIATRIC SURGERY PROGRAM FIRST VISIT Contact information: [facility] Administrative staff: Yadira [phone] [phone] Dietitian: [phone] Surgeons/ nurse practitioner: [phone] Nurse line: [phone] Bariatric Surgery Program educational information: ?? Read the Bariatric Surgery Program Educational Handbook thoroughly, highlight important areas to remember. Write down any questions that you may have to discuss at next visit. ?? Bring the Handbook to ALL pre-operative visits. Keep the handbook in a safe place for easy retrieval. Your next visits: All visits take place in the General Surgery Clinic, [place] [facility] ??? 2nd visits with dietitian and nurse practitioner (Shared Medical Appointment) - Please note thisvisit is approximately 3 hours long ??? Bring the questionnaire to your next visit. Complete within 1 day of the visit. ??? Bring the completed quiz to the next visit Predicted weight loss with surgery is an estimated 30-70% of excess body weight, which would be a goal weight between 184-232# Nutrition: 1) Your starting weight is: 268#. Any weight gained will need to be lost prior to being scheduled for surgery. 2) Practice post-op GB diet recommendations prior to surgery to support post-op success and long-term weight loss: ??? Eat 3 meals daily, spaced about 4-6 hours apart. ??? Take your time when eating meals, at least 20-30 minutes per meal. ??? Avoid soda and limit caffeine consumption. Stop caffeine 2 weeks prior to surgery. ??? Sip 48-64 oz hydrating fluid daily between meals and avoid drinking with meals. ??? Use smaller plates/bowls/utensils for meals and eat smaller portions. ??? Plan meals 1 wk in advance and shop with a list. 3) Continue taking a keep a food journal. (See Education section below for frequently used Smartphone apps.) 4) Exercise with the eventual goal of 30 minutes minimum 5 days per week or exercise as recommended by MD. 5) Practice this Meal Format: Protein first at all meals! Only eat until full. Breakfast 1st Protein (15-20 grams) 2nd Fruit 3rd Starch Lunch and Dinner 1st Protein (20 grams) 2nd Non-Starchy Vegetables 3rd Starch 4th Fruit Snacks: 1-2 per day if physically hungry - choose a protein or a fruit Non starchy vegetables include all those except corn, peas, winter squash, beans, and potatoes Plan for post operative support: make sure that you have a plan for post- operative support includingtransportation to and from the hospital for surgery and follow up appointments. Questions for your doctor, specialist or pharmacist: ?? Ask your doctor about medication suggestions if you currently take medications that are larger than the size of a tylenol. Large pills need to be crushed (if permitted by the drug construction contractor) or taken in liquid form for TWO WEEKS after surgery. Oral diabetes medication may not need to be taken after surgery. ?? If you take anti-inflammatory medications like ibuprofen or steroid medications for arthritis or asthma, please check with your doctor. These medications will need to be held 1 week prior to and at least a few months after surgery. If you are having gastric bypass, anti-inflammatory medications will need to be used sparingly short goods drier after surgery to decrease risk of ulcer. For women who take control or hormone medications: these medications must be stopped 1 month before and after surgery. Use alternative forms of control. To prevent in the first 2 years after surgery. The IUD and contraceptive implant are the most effective forms of control. Education: 1. Continue to read information about bariatric surgery- websites listed in your handbook. 2. Check out the [place] Society for Metabolic and Bariatric surgery (ASMBS) website for patient education - http://asmbs.org/patients 3. Nutrition and Activity apps- Baritastic, My Fitness Pal, Lose It 4. [facility] facebook page: [email or web address] documented in this encounter Progress Notes Nusrat Garcia MD - 10/09/2019 8:00 AM EDT [facility] Bariatric Surgery Evaluation Reason for consultation: Monisha is a 48 y.o. year-old female referred by Huyen Ramon DO for consultation for consideration of surgical treatment of obesity. Her preferred procedure: Laparoscopic Darryl en Y gastric bypass due to GERD Prior bariatric surgery evaluations: None BARIATRIC SURGERY PROGRAM PATHWAY Review of progress with the requirements of the Bariatric Surgery Program: 1. Education: She has attended a Introduction to the [facility] Bariatric Surgery Program seminar, a comprehensive two hour meeting that provides a program overview, education on bariatric surgeries offeredat [facility], risks and benefits, as well as patient expectations and follow up. [facility] Bariatric Surgery Program Educational seminars viewed 2. Pre-operative programmatic evaluations: PCP evaluation and letter of support to proceed with surgery, BSP labwork, and psychological evaluation. 3. Bariatric Surgery Program evaluations with RD today. 4. Program start weight: 268 WT at visit #1: Wt & BMI By Encounter Date Office Visit from 10/09/2019 in General Surgery at [facility] TH Visit (TeleHealth) from 10/01/2019 in [facility] at [facility] Weight 121.5 kg (267 lb 12.8 oz) 1 10/09/2019 0752 119.3 kg (263 lb) [home wt] 1 10/01/2019 0737 BMI 45.27 1 10/09/2019 0752 44.46 1 10/01/2019 0737 5. Gallbladder status: [x] intact, not studied. [] S/P cholecystectomy 6. VTE risk assessment: extended VTE prophylaxis [] is [x] is not indicated post bariatric surgery discharge 7. Next steps in pathway: Additional testing/ consultations as determined as needed to be determined at today's visit. 8. HOSPITAL DISCHARGE NEEDS: [x] Ursodiol [x] PPI - On daily PPI at baseline [] Lovenox History of present illness: She states that she has struggled with obesity for many years. The patient has tried multiple weightloss measures without sustainable success. Factors that she identifies as contributing to her obesity include: genetics, overconsumption and inactivity. She seeks bariatric surgery for health reasons. Other motivating factors for seeking surgery for bariatric surgery: Wants to be more active Her goals of surgery: Would like 160 lbs, ok with 180-190 She denies binge eating, night eating disorder, self-induced vomiting, laxative or diuretic use or excessive exercise to lose weight. History of GERD: On daily PPI. EGD in 2018 with 2 cm hiatal hernia LAUREN: [x] LAUREN screen negative [] LAUREN, on CPAP with adequate compliance Stress: Reports no significant current stressors Exercise: Walks 45-60 min 4-5 times per week Data reviewed: PCP notes, lab data, nutrition notes, psychological evaluation Patient Active Problem List Diagnosis ??? Neural [...] of insulin ??? History of surgical procedure Overview Note: c section x 3 Endometrial ablation x 2 Tonsillectomy. ??? Sensorineural hearing loss (SNHL) of both ears ??? Hypokalemia ??? Nontraumatic tear of rotator cuff ??? Diarrhea ??? Gastroesophageal reflux disease with esophagitis ??? Serrated adenoma of colon ??? Restless legs syndrome ??? Essential hypertension ??? Calculus of kidney ??? Classical migraine with intractable migraine ??? Alopecia areata ??? Depressive disorder Re flash pulmonary edema - managed in ED, thought to be due to reaction to a diuretic Past Surgical History: Procedure Laterality Date ??? PRO COLONOSCOPY, DIAGNOSTIC N/A 12/05/2017 COLONOSCOPY, DIAGNOSTIC performed by Luther Narayan MD at [facility] ENDOSCOPY ??? PRO ENDOSCOPIC US EXAM, ESOPH N/A 12/05/2017 UPPER EUS- ENDOSCOPIC ULTRASOUND performed by Luther Narayan MD at [facility] ENDOSCOPY ??? PRO UPPER GI ENDOSCOPY, BIOPSY N/A 12/05/2017 EGD WITH BIOPSY (WRVU 2.49) performed by Luther Narayan MD at [facility] ENDOSCOPY ??? TONSILLECTOMY C section x 3 Lap endometrial ablation x 2 Current Outpatient Medications: ??? hydroCHLOROthiazide (Hydrodiuril) 25 mg Tablet, Take 1 tablet by mouth 2 times daily., Disp: , Rfl: ??? metFORMIN XR (Glucophage XR) 500 mg Tablet Sustained Release 24 hr, One tab twice daily., Disp: 120 tablet, Rfl: 3 ??? aMILoride (Midamor) 5 mg Tablet, Take 5 mg by mouth 2 times daily., Disp: , Rfl: ??? carvedilol (COREG) 25 mg Tablet, , Disp: , Rfl: ??? hydrocortisone 2.5 % Cream, as needed., Disp: , Rfl: ??? Loperamide (IMODIUM) 1 mg/7.5 mL Liquid, Take 2 mg by mouth., Disp: , Rfl: ??? multivitamin (THERAGRAN) Tablet, Take 1 tablet by mouth daily., Disp: , Rfl: ??? EPINEPHrine 0.3 mg/0.3 mL Auto-Injector, Inject 0.3 mg into the muscle once as needed (allergic reaction( difficulty breathing, throat swelling, lightheaded)). Inject 0.3 mL IM once as needed for allergic reaction (Throat tight, difficulty breathing). Call 911 as directed., Disp: , Rfl: ??? ondansetron (ZOFRAN) 4 mg Tablet, Take 4 mg by mouth every 8 hours as needed for Nausea., Disp: , Rfl: ??? gabapentin (NEURONTIN) 300 mg Capsule, 300 mg tid, Disp: , Rfl: ??? omeprazole (PRILOSEC) 40 mg Capsule, Delayed Release(E.C.), Take 40 mg by mouth daily., Disp: , Rfl: ??? pramipexole (MIRAPEX) 0.25 mg Tablet, Take 0.25 mg by mouth daily. One tab pm/ 2 tabs qhs, Disp:, Rfl: ??? lisinopril (PRINIVIL;ZESTRIL) 20 mg Tablet, Take 20 mg by mouth daily. Reported on 06/15/2016, Disp: , Rfl: ??? buPROPion (WELLBUTRIN XL) 300 mg Tablet Sustained Release 24 hr, Take 300 mg by mouth every morning., Disp: , Rfl: ??? triamcinolone (ARISTOCORT) 0.5 % Cream, Apply topically as needed., Disp: , Rfl: ??? SUMAtriptan (IMITREX) 100 mg Tablet, , Disp: , Rfl: 3 ??? potassium chloride (K-DUR/KLOR-CON) 20 mEq Tab Sust.Rel. Particle/Crystal, Take 40 mEq by mouth 2 times daily., Disp: , Rfl: ??? Magnesium 200 mg Tablet, Take 400 mg by mouth daily., Disp: , Rfl: Allergies Allergen Reactions ??? Atropine CIS - redness and bodily swelling ??? Eplerenone ??? Iron Shortness Of Breath Experienced swelling and shortness of breath after an infusion. This was dose related and she has had infusions since without issue. ??? Spironolactone Rash Family History Problem Relation Age of Onset ??? Asthma Daughter Social History Socioeconomic History ??? Marital status: Domestic Partner Spouse name: Not on file ??? Number of children: Not on file ??? Years of education: Not on file ??? Highest education level: Not on file Occupational History ??? Not on file Social Needs ??? Financial resource strain: Not on file ??? Food insecurity Worry: Not on file Inability: Not on file ??? Transportation needs Medical: Not on file Non-medical: Not on file Tobacco Use ??? Smoking status: Never Smoker ??? Smokeless tobacco: Never Used Substance and Sexual Activity ??? Alcohol use: No ??? Drug use: No ??? Sexual activity: Not on file Lifestyle ??? Physical activity Days per week: Not on file Minutes per session: Not on file ??? Stress: Not on file Relationships ??? Social connections Talks on phone: Not on file Gets together: Not on file Attends sabianism service: Not on file Active member of club or organization: Not on file Attends meetings of clubs or organizations: Not on file Relationship status: Not on file ??? Intimate partner violence Fear of current or ex partner: Not on file Emotionally abused: Not on file Physically abused: Not on file Forced sexual activity: Not on file Other Topics Concern ??? Not on file Social History Narrative ??? Not on file Functional status: Is ambulation limited most or all of the time? no Tolerance: she can walk a mile and climb a flight of stairs Karnofsky performance status scale: [x] 90- able to carry on normal activity, minor signs or symptoms of disease [] 80- normal activity with effort, some signs or symptoms of disease [] 70- cares for self, unable to carry on normal activity or to do active work ADLs: able to carry on without difficulty- [x] independent [] partially dependent [] totally dependent Use of assistive devices: denies Dyspnea with routine activity: [] denies [x] walking up inclines [] any exertion Anesthesia history (per patient): denies untoward events Lactose/ Food/ Wheat/ Latex allergy/sensitivity: denies control plan: Tubal ligation Diagnostic screenin. Lab data 2. Psychological evaluation done by Cinda Rodriguez: no contraindication to bariatric surgery from apsychological perspective. MBSAQIP Preoperative Risk Assessment (negative if left blank): General [x] Diabetes mellitus [x] Non-insulin [] Insulin [] Current smoker within 1 year Functional health status [x] Independent [] Partially dependent [] Totally dependent [] Unknown Pulmonary [] COPD (Severe) [] Oxygen Dependent [] History of pulmonary embolism [] Obstructive sleep apnea requiring CPAP/BiPAP Gastrointestinal [x] GERD requiring medication within 30 days prior to surgery Musculoskeletal [] The patient's ambulation is limited most or all of the time Cardiac [] History of myocardial infarction [] Previous PCI/PTCA [] Previous cardiac surgery [x] Hypertension requiring medication # of anti-hypertensive meds: 4 [] Hyperlipidemia requiring meds Vascular [] Vein thrombosis requiring therapy [] Venous stasis [] IVC filter IVC filter timing [] placed in anticipation of procedure [] IVC filter preexisting [] Unknown Renal [] Currently requiring or on dialysis [] Renal insufficiency Nutritional/Immune/Oncologyy/Other [] Steroid/Immunosuppressant use for chronic condition [] Therapeutic anticoagulation [] Previous obesity surgery/foregut surgery [] Previous organ transplant [facility] Initial Responses 09/28/2019 URICA - Readiness Score 10.33 (Contemplation State) WEL-SF Total Scores 80 PROMIS 6B Scores 43.1 PHQ-2 SubScore 0 (Brief screen negative) GAD2 Subscore 0 (Brief screen negative) PROMIS 10 Physical Scores 47.7 PROMIS 10 Mental Scores 53.3 IPAQ-SF Scores 3 Total REAP-S Scores 37 TFEQ - Uncontrolled Eating (UE) 0 TFEQ-Cognitive Restraint (CR) 77.77 TFEQ-Emotional Eating 0 Food Insecurity Score 2 [place] Category I Result 0 [place] Category II Result 0 [place] Category III 1 (Positive) [place] Sleep Apnea Total 1 (Low Risk) Schooling Graduated from college Importance of making a change 10 - Very Important Confidence to make change 10 - Very Confident Most weighed 270 Age most weighed 48 Times lost 10 lbs or more 3 to 5 Most weight lost in one attempt 15 Lost weight how? Ate less food, Switched to food with less calories, Ate less fat, Ate fewer carbohydrates, Took other pills, medicines, herbs, or supplements not needing a prescription, Drank a lot ofwater, Ate more fruits, vegetables, salads, Ate less sugar, candy, sweets, Changed eating habits (didn't eat late at night, ate several small meals a day), Used a liquid diet formula (ex: Slimfast or Optifast), Joined a weight loss program (ex: Weight Watchers, Cristina Juarez, HONEY, or Overeaters Anonymous), Followed a special diet (ex: Dr. Andrews, [place],[facility], NutriESKY) Wearing tracking devices helped improve health Yes Worried food would run out before we got money to buy more Never true Food didnt last; no money to get more Never true Woman with baby weighing > 9lbs at No Sister of brother with diabetes No Have parent with diabetes No Younger than 65 yrs and little or no exercise in a day No DPRP Score: 10 Bariatric Surgery VTE Risk Assessment Score Patients will be considered to be at high risk if they have one or more of the following: [] Previous VTE or BMI >/= 60 kg/m2 Or two or more of the following: [] Age > 50 [] BMI >/= 50 kg/m2 [] Male sex [] Recent tobacco use [] Obstructive sleep apnea [] Venous insufficiency/ varicose veins [] OCP or HRT within 30 days of surgery Total: extended VTE prophylaxis [] is [x] is not indicated post bariatric surgery discharge Patients are advised to stop HRT and OCP/ DMPA 1 month prior to surgery and hold for 1 month post op, and use control during this time if appropriate. All patients who take coumadin/ anti-10A inhibitors preoperatively are referred to the Thrombosis Clinic for recommendations. Review of Systems (negative if left blank): Constitutional: [] fatigue EENT [] wears corrective lens [] vision or hearing problems Neurologic: [] paresthesias [] dizziness [] chronic headaches Cardiovascular: [] history of chest pain, squeezing, pressure [] syncope [] murmur [] palpitations Respiratory: [] shortness of breath [] wheezing [] symptoms of sleep apnea GI: [x] GERD [] dysphagia [] early satiety [] abdominal pain [] hernia [] prior CT scan abdomen [] ED visit for abdominal pain [] nausea/vomiting [] blood in stool [x] chronic diarrhea - intermittent [] frequent constipation : [] incontinence [] hematuria [] history of renal calculi LAY OUT FORMER: [] LMP: [] menorrhagia [] menopause Musculoskeletal [] myalgia/arthralgias: Extremities: [] Varicose veins [] telangiectasias [] edema Skin: [] skinfold rashes [] tattoos Endocrine: [] PCOS [] thyroid disease Heme/Lymph: [] excessive bruising [] lymphadenopathy [] transfusion history [] blood donor in past year [] iron deficiency history Allergic/ Immun: [] use of steroid/ immunosuppressant for chronic condition [] Latex, food or medication allergies: as per allergy list Psychiatric [x] depression [] anxiety [] panic attacks [] history of suicide attempt [] symptoms of bipolar disorder [] addictions- gambling, excessive shopping, prolonged Internet use [] History of abuse [] psychiatric hospitalization [] rehab admission Other: [] smoker within 1 year of surgery [] current smoker [] anticoagulation Physical exam: Vital signs: Most Recent Vitals: 10/09/19 0752 BP: 124/78 Pulse: 72 Resp: 16 Temp: 36.3 ??C (97.4 ??F) Body mass index is 45.27 kg/m??. Neuro: Non-focal Psych: Pleasant, conversant, normal affect, cognition and mood. Behavior:[] defensive [] hostile [] expressive [] quiet [[] monopolizing [[] argumentative [x] insightful [] insightless[] fidgety [x] motivated [] apathetic [] preoccupied [] negativistic [] disruptive [x] attentive Mood: [x] stable [] labile [] depressed [] happy [] anxious [] hypomanic [] intense [] angry [] worrisome [] flat [] detached [] fearful [] sad ENT: neck supple with normal ROM, no adenopathy or thyromegaly Lungs: CTA bilaterally without wheezing. Heart: RRR, no murmur appreciated. Abdomen: Obese, soft, non- tender Prior incisions: C section Hernias: None Extremities: no lower extremity edema Skin: No areas of skin breakdown. Obesity distribution: [] Central [x] gyneoid .qwwc Discussion of treatment of obesity and of the [facility] Bariatric Surgery Program: Ms.. Das is aware that other treatments for obesity are available, ie, dietary, behavior modification, weight loss medications, exercise as well as surgical weight loss methods. The risks and benefits of bariatric surgery, including gastric bypass and sleeve gastrectomy are discussed at every Intr oduction to the [facility] Bariatric Surgery Program meeting and all Educational Seminars, and were again discussed individually today. Assessment/ Plan: 48 y.o. year old female with Morbid obesity with established obesity-related chronic disease including hypertension, type 2 diabetes, osteoarthritis, GERD, moderate limitations in activities of daily living and impairment of well-being. She has had failure to sustain weight loss by medical management and meets the criteria proposed by the NIH Consensus Guidelines for surgical treatment of severe obesity and the AACE, TOS, ASMBS Clinical Practice Guidelines for the Perioperative Nutritional, Metabolic and Non-surgical Support of the Bariatric Surgery Patient 2013 Update. She is aware that there are non-surgical methods to achieve weight loss. After review of her medical record, history and physical exam, I find her to be a good candidate forbariatric surgery. She is interested in a laparoscopic darryl en y gastric bypass. We discussed the procedures of laparoscopic sleeve gastrectomy and laparoscopic darryl en y gastric bypass. The patient would like to proceed with a laparoscopic darryl en y gastric bypass. We discussed the benefits of surgery as well as the small but real risks including but not limited to need for open surgery, bleeding, infection, anastomotic leak, DVT and pulmonary embolis, stricture, postoperative reflux and . We discussed the possibility of poor weight loss and the need to make sustained dietary changes in order for the surgery to be successful. She understands the short goods drier risks of vitamindeficiencies, internal hernias and ulcers. She realizes the need for life long follow up with the [facility] surgery program and understands the importance of the preoperative diet in terms of safety and ability to perform the procedure. Consent was signed today. All questions were answered and the patient desires to proceed. She has had an opportunity to have all her questions answered and is in agreement with the plan of care. She was encouraged to call with any questions or concerns. Discussed stopping Celebrex postop on a daily basis. Pending: - Educational class - Ongoing weight loss encouraged - Given a surgery date Keiry Chatterjee RD - 10/09/2019 8:00 AM EDT Bariatric Surgery Program Initial Nutrition Assessment Monisha Das is a 48 y.o. female being seen today for a preoperative evaluation in anticipationof weight loss surgery. SUBJECTIVE: Interest in bariatric surgery: Has been thinking about it for 3 years. Happy and stable in her life. 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 Social support: Jayne, kids Hobbies: being active- wants to hike and kayak. Free time happily spent with family. Medical Hx: Class III obesity, IBS-D, anemia, HTN, GERD, depression, T2DM, hx kidney stones, hx potassium def Overweight/obese since age: after of twins. Gained 32# during and lost all the weight. Then within 6 months was 160#. Then every year was 20# gain. Highest weight: 268# at age 48 Lowest weight: 125# at age 24 Dieting History: Type of Diet Wt Lost (lbs.) Wt. Regain (lbs.) Dates Duration Comments Sandy Russo RD 3-5 3-5 2019 3 visits 07/30/19, 08/29/19, 09/29/19 [facility] 2019 3 visits Working with Linda Cai MD hypocaloric none 20 1995 4 years Low CHO/keto none 40 2009 3 years Low calorie and exercise none 30 2012 5 years WW none 35 2017 1 year FitBit ongoing Has kept dietary logs for many years History of diet pills to lose weight: None. History of disordered eating behaviors such as binge eating/self-induced vomiting/laxative abuse/night eating syndrome: Connie. In college initially gained 15#. During her sophomore year she ate ~1000 calories per day and was running 3 miles twice daily. This lasted less than 1 year; when she went home for the summer she stopped. Contributing Factors to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
--- OUTSIDE RECORDS SUMMARY | 2022-02-03 02:29 | XMS_ITS | Encounter Summary ---
:1970 Author Organization [facility] [address] Care Team Providers Name Role Phone Tristen Huyenjenna Tucker DO Primary Care Provider Encounter Details Date Type Department Care Team Description 09/29/2019 TH Visit Weight and Wellness Sandy Russo BMI 40.0-44.9 (TeleHealth) at [facility] Abdirahman, SAM kg/sq m 18 [facility] [id number] [place] [address] Social History Tobacco Use Types Packs/Day Years [...] - - Weight 119.3 kg (263 lb) 09/29/2019 7:00 AM EDT Height 163.8 cm (5' 4.49) 09/29/2019 7:00 AM EDT Body Mass Index 44.46 09/29/2019 7:00 AM EDT documented in this encounter Patient Instructions Patient InstructionsSandy Russo, RD - 09/29/2019 9:00 AM EDT Goals ??? beverage practice - Continue eating and drinking by full 30 minutes - Keep up the great work sipping vs. Gulping - aim to increase hydrating beverages to at least 64 ounces, especially on fast days (could try a NUUN tablet electrolyte replenishment on a day when sweating a lot) - set a reminder on watch - consider a water bottle that has times or similar- consider temperature ??? increase active minutes goal From 20 [...] out with questions or concerns as needed ??? protein any time you're eating Pair fruits with dairy/nuts or other proteins Aim to think more about the food groups and gather information about what's working now instead of necessarily needing to be at a particular calorie number right now documented in this encounter Progress Notes Sandy Russo RD - 09/29/2019 9:00 AM EDT Nutrition Intervention for Weight Management RD visit with Monisha Das Assessment/Nutrition Diagnosis: Pt at increased nutritional risk related to excessive calorie intakeand sub optimal physical activity resulting in overweight/obesity as evidenced by BMI and diet recall : 1970 Telehealth visit conducted while patient was at home at the following address: [address] [place] [id number] Food Trackers: Yes, using daily. Calories between 1400 and 1600 Activity: Increased activity to 45-60 minutes 5 days a week. Weight Today: 263 today (start weight of 268). Feels that exercise tolerance has increased, feeling better overall. Feels a little tough not to be losing weight, but focusing on other measures of success as much as possible Recent blood sugar was 105 (down from 170, then 130 and down to 105) Vitals 09/29/2019 Height (Haitian) 64.488 Height (Metric) 163.8 cm Weight (Haitian) 263 lbs Weight (Metric) 119.296 kg BMI (Calculated) 44.46 kg/m2 Weight Loss History: For full account, see previous notes from this process description writer and initial visit encounter with Weight and Wellness provider Appetite/Hunger: No issues reported Typical Dietary Intake: Mostly sticking to 11a-7p. Was fasting 2 days a week but didn't really notice a difference so just doing one instead B: 2 eggs and cup of fruit salad at 11a L: turkey breast and 6 triscuits, a wedge of watermelon, D: 4 oz broiled tilapia and a med baked pot with plain nonfat cape verdean yog and salt/pepper and a cup ofroasted broccoli S: around 4pm 1/4 cup hummus with celery and carrots After dinner: 100% fruit bars some nights Typical Beverages: Water- see notes below Previous Wellness Goals: Goals ??? beverage practice - Continue eating and drinking by full 30 minutes - Keep up the great work sipping vs. Gulping - aim to increase hydrating beverages to at least 64 ounces, especially on fast days (could try a NUUN tablet electrolyte replenishment on a day when sweating a lot) - set a reminder on watch- still working on increasing total hydration. Feeling more accomplished with a smaller bottle (about 16-ounces). - consider a water bottle that has times or similar- consider temperature Feels like she is making progress with the water ??? increase active minutes goal- meeting From 20 minutes to 30 ??? Other (Enter personal goal)- did not address specifically but feels confident about activity minutes. Remains on list for reference Do resistance exercise with bands or weights starting with twice weekly, 5 to 10 minutes per time. ??? Other (Enter personal goal)- did not address specifically but feels confident about activity minutes. Remains on list for reference Tracking with fit bit ??? Other (Enter personal goal) (pt-stated)- did not address specifically. Remains on list for reference Interested in trying Mindfulness/Relaxation routines before bedtime at least once a week. ??? potential eating schedule- going well, plans to continue Ideally eating hours would look more like 10-6 or 11-7- just keeping the 8 hour eating window even if it's 12-8p Stop eating after supper Continue 2 x 24 hour fasts a week reach out with questions or concerns as needed Doing once a week instead- goal updated ??? protein any time you're eating - going well Pair fruits with dairy/nuts or other proteins Aim to think more about the food groups and gather information about what's working now instead of necessarily needing to be at a particular calorie number right now Interview: Feeling really ready- doesn't anticipate that she'll stop eating healthfully or moving. Ready to increase from walking to hiking mountains. Meeting goals above and feels these behaviors are sustainable. No concerns. Barriers to Change: None Nutrition Goals: Remain unchanged from above Monitor/Evaluate: Patient has completed [address]. Reviewed option to return to [facility] 6-months post op for check in, behavioral support Patient will contact bariatric surgery team with any questions about insurance requirements ( ) Aim for 5-10% weight loss from ABW x 3-6 months from initial visit Thank you Sandy Russo RD LD 30 minutes were spent today in contact with the patient documented in this encounter Plan of Treatment Upcoming Encounters Date Type Specialty Care Team Description 02/08/2022 TH Visit (TeleHealth) General Surgery Rylie Rea, ENRIQUE [facility] [place] [address] [facility] [place] [address] documented as of this encounter Goals Goal [...] adult documented in this encounter Care Teams Brick [employer] Hand Relationship Specialty Start Date End Date Huyen Ramon DO PCP - General Family Medicine 04/05/[address] [place] [place] [address] documented as of this encounter
--- OUTSIDE RECORDS SUMMARY | 2022-02-03 02:29 | XMS_ITS | Encounter Summary ---
:1970 Author Organization [facility] [place] [address] Care Team Providers Name Role Phone Tristen Huyenjenna Tucker DO Primary Care Provider Encounter Details Date Type Department Care Team Description 08/29/2019 TH Visit Weight and Wellness Sandy Russo BMI 40.0-44.9 (TeleHealth) at [facility] SAM [place] kg/sq m [address] [facility] [id number] [place] [address] Social History Tobacco Use Types Packs/Day Years [...] - Inhaled Oxygen Concentration - - Weight 120.2 kg (265 lb) 08/29/2019 7:00 PM patient rep orted EDT Height 163.8 cm (5' 4.49) 08/29/2019 7:00 PM EDT Body Mass Index 44.8 08/29/2019 7:00 PM EDT documented in this encounter Patient Instructions Patient InstructionsSandy Russo RD - 08/29/2019 9:30 AM EDT Goals ??? beverage practice [...] prescription when Dr. Cai has signed off ??? protein any time you're eating Pair fruits with dairy/nuts or other proteins Aim to think more about the food groups and gather information about what's working now instead of necessarily needing to be at a particular calorie number right now Will follow up for additional consecutive (ie. April, May, May...) monthly visits for a total of 3 RD visits OR as otherwise specified by patient's insurer. contact bariatric surgery team with any questions about their insurance requirements ( ) documented in this encounter Progress Notes Sandy Russo RD - 08/29/2019 9:30 AM EDT Nutrition Intervention for Weight Management RD visit with Monisha Das Assessment/Nutrition Diagnosis: Pt at increased nutritional risk related to excessive calorie intakeand sub optimal physical activity resulting in overweight/obesity as evidenced by BMI and diet recall : 1970 Telehealth / telephone visit conducted while patient was at home at the following address: [address] [place] Food Trackers: At 2340-1414 on non-fasting days Activity: Has increased walking to 45 minutes, maybe 1 hour in 2 sessions: Never less than 5 days a week, someweeks every day Can actually run up the stairs, not getting winded at the beginning of her walk Weight Today: 265 today Vitals 08/29/2019 08/21/2019 08/11/2019 07/30/2019 Height (Mauritian) 64.488 65 64.488 Height (Metric) 163.8 cm 165.1 cm 163.8 cm Weight (Mauritian) 265 lbs 264 lbs 5 oz 263 lbs 266 lbs Weight (Metric) 120.203 kg 119.886 kg 119.296 kg 120.657 kg BMI (Calculated) 44.8 kg/m2 43.76 kg/m2 44.97 kg/m2 Vitals 07/23/2019 Height (Mauritian) Height (Metric) Weight (Mauritian) 268 lbs Weight (Metric) 121.564 kg BMI (Calculated) Has lost 3 pounds, maybe some inches- clothes feel better, moving better. Given this in combination with the fasting and the 1000 mg of Metformin is surprised has not lost more weight but also not surprised. Feels a little reset- the amount of food that it takes to be full. Body feels different in agood way. Increased endurance as stated above Weight Loss History: For full account, see previous notes from this verse writer and initial visit encounter with Weight and Wellness provider Appetite/Hunger: Has been doing a 24-hour fast twice a week. Takes very little food to fill her up when she does go to eat in the evening Typical Dietary Intake: Coffee with 2 tbsp sweet creamer (Chobani) B: arabic muffin around 10am (sprouted grain, 1.5 Tbsp peanut butter) L: about a cup of tossed salad (stomach didn't feel great) and 1/2 cup ww pasta salad on top around 1pm (usually a protein on the salad) D: stomach still wasn't feeling great so had a bland dinner of 3/4 c rice and 2 oz roasted chicken at 6pm S: 4pm had a cup of watermelon when she got home At 7pm had a nectarine This is fairly typical except yesterday was missing the veggie usually has. More likely potatoes instead of the rice. Typical Beverages: See below Previous Wellness Goals: Goals ??? beverage practice - there's always room for improvement - begin eating and drinking by full 30 minutes - sipping vs. Gulping - aim for 64 ounces (maybe try an chani or something to alert you or a water bottle that can superintendent maintenance to your fitbit or lines with the time on it) Getting 48 ounces of water currently Or drinking more tea because doesn't need the sweeteners: Max 2 caffeinated drinks per day and usually just coffee OR tea Understands will need to cut the caffeine ??? increase active minutes goal- feels she is exceeding her activity goals From 20 minutes to 30 ??? Other (Enter personal goal)- did not discuss specifically Do resistance exercise with bands or weights starting with twice weekly, 5 to 10 minutes per time. ??? Other (Enter personal goal)- did not discuss specifically Tracking with fit bit ??? Other (Enter personal goal) (pt-stated)- did not discuss specifically Interested in trying Mindfulness/Relaxation routines before bedtime at least once a week. ??? potential eating schedule- going well. Adjusted goal, see below Ideally eating hours would look more like -6 or 7- just keeping the 8 hour eating window even if it's 12-8p Stop eating after supper Will send you the fasting prescription when Dr. Cai has signed off Interview: Discussed importance of hydration, especially during fasts. Discussed strategies, goals set. Barriers to Change: None identified at this time Nutrition Goals: Goals ??? beverage practice - Continue [...] at a particular calorie number right now Monitor/Evaluate: Will follow up for additional consecutive (ie. April, May, May...) monthly visits for a total of 3 RD visits OR as otherwise specified by patient's insurer. Patient will contact bariatric surgery team with any questions about insurance requirements ( ) Will discuss progress towards goals listed above Aim for 5-10% weight loss from ABW x 3-6 months from initial visit Thank you Sandy Russo RD LD 30 minutes were spent today in contact w2ith the patient documented in this encounter Plan of Treatment Upcoming Encounters Date Type Specialty Care Team Description 02/08/2022 TH Visit (TeleHealth) General Surgery Rylie Rea, DAIRY CONSULTANT [facility] [place] [address] [facility] [place] [place] [address] documented as of this encounter Goals Goal [...] adult documented in this encounter Care Teams Automation Technologist Relationship Specialty Start Date End Date Huyen Ramon DO PCP - General Family Medicine 04/05/[address] [place] [place] [address] documented as of this encounter
--- OUTSIDE RECORDS SUMMARY | 2022-02-03 02:29 | XMS_ITS | Encounter Summary ---
:1970 Author Organization [facility] Address [address] [facility] [place] [address] Care Team Providers Name Role Phone Tristen Huyenjenna Tucker DO Primary Care Provider Encounter Details Date Type Department Care Team Description 10/01/2019 TH Visit Weight and Wellness Linda Cai Class 3 severe (TeleHealth) at [facility] MD [place] obesity due to excess [address] [facility] [place], [place] [address] comorbidity and body [id number] [facility] mass index (BMI) of [phone] PRIMARY CARE 45.0 to 49.9 in adult [place], [place] [address] Social History Tobacco Use Types [...] - - Weight 119.3 kg (263 lb) 10/01/2019 7:37 AM EDT home wt Height 163.8 cm (5' 4.49) 10/01/2019 7:37 AM EDT Body Mass Index 44.46 10/01/2019 7:37 AM EDT documented in this encounter Progress Notes Linda Cai MD - 10/01/2019 9:30 AM EDT [facility] Visit Patient Name: Monisha Das Date of : 1970 Age: 48 y.o. Huyen Ramon DO Thank you for referring Monisha Das to the [facility] for consultation regarding obesity. PREVIOUS LABS: No results found for: CHLPL No results found for: HDL No results found for: LDLCHOL No results found for: TRIG No results found for: CHOLHDL Lab Results Component Value Date HA1C 6.6 08/20/2019 Lab Results Component Value Date GLUCFASTING 139 (ExtH) 08/20/2019 Lab Results Component Value Date AST 22 08/15/2018 ALT 24 08/15/2018 CHIEF COMPLAINT: Follow-up for Obesity Pathway: [facility] PATHWAY - ADULT 07/23/2019 Bariatric Surgery Activate INTERVAL HISTORY / PROGRESS TOWARD GOALS: [x] I reviewed past / interim records including notes and labs. This is a 3 month from first [facility] visit folllow up for this 48 y.o. patient who I saw in Weight and Wellness clinic for the first time on 07/23/2019. Wt was 268 lbs. Pursuing Bariatric surgery. SEE PREVIOUS NOTES for details of medical issues. Today she reports: karthikeyans are going well. Spoke with dietitian Sandy on Sunday. . I decreased the fasting to one day per week (from 2 days/week) because I noticed no change in my wt. I am tracking and keeping to 1500 divina. Have increased activity to 45 min to an hour 4 to 5 days per week. Clothes fit better, I feel better and have better exercise tolerance. Wt only down to 263. Fasting blood sugar down to 105, had been 130. (Hemoglobin A1c was 6.8 in May and 6.6 in July). I feel like the surgery will be the tool to help what I am doing work . Saw psychologist last week , got green light. Partner Jayne will help her out after bariatric surgery. Did labs at [facility]. Mood and stress level: Pretty good. There is been a lot of stress but she is handling it pretty well. Mom from Covid. Had to put Dad in chcf. He has Parkinson's. He is doing pretty well in the chcf. , Bariatric info: She has had failure to sustain weight loss by medical management, is aware of non-surgical methods at weight loss, and meets the criteria proposed by the NIH Consensus Guidelines for surgical treatmentof severe obesity. ?? Patient has decided on pursuing bariatric surgery ?? Monisha was advised that weight loss from bariatric surgery depends on ability to eat a healthy diet assisted after surgery. She is aware of our programmatic multi-disciplinary approach which includes two bariatric surgeons, as well as dietitians and obesity medicine specialist. She was advised that the final decision for procedure is made by the surgeon with input from the patient and team. Prospective patients are encouraged to thoroughly research bariatric surgery with [facility] website. Bariatric Surgery Program Requirements and further recommendations: [x] Attended bariatric information session [x] Bariatric Pathway initiated [] Dr. Garcia [] Dr. Nagy (x) No preference. [x] Bypass [] Gastric sleeve preferred I thnk I am good bypass candidate. if don't take the omeprazole the reflux is bad. If I do take the 40 mg per day it is controlled. [] UGI [] EGD Had recent upper Endo , sent to bariatric surgery. [] VTE risk Bariatric Surgery VTE Risk Assessment Score Patients will be considered to be at high risk if they have one or more of the following: Previous VTE or BMI >/= 60 kg/m2 Or two or more of the following: Age > 50 BMI >/= 50 kg/m2 Male sex Recent tobacco use Obstructive sleep apnea : Had 2 sleep studies recently, does not have it. Venous insufficiency/ varicose veins : Lots of purple veins but not bulging. OCP or HRT within 30 days of surgery: no Enoxaparin is/is not indicated s/p bariatric surgery [x] Note for medical necessity submitted to insurance [x] f/u 2 months [] Labs ordered [] Labs reviewed Recent Labs 08/20/19 HA1C 6.6 [x] A1C <8 [] A1c>8 [] Gallbladder removed [x] gallbladder intact [] Cardiac Clearance needed [] Cardiac clearance reviewed [] Sleep study as concern for LAUREN based on [place] Questionnaire. See above [] Psych consult [x] RD Stage 2 Education scheduled [] RD note reviewed [] Starting weight :268 lbs. [x] Patient ready for second half of program, schedule Surgical RD, UNDERWRITING MANAGER and Surgeon visit [x] Given the association of obesity with cancer, all age appropriate cancer screenings should be UTD [facility] Initial Responses 09/28/2019 URICA - Readiness Score [...] TFEQ-Emotional Eating 0 Food Insecurity Score 2 [place] Category I Result 0 [place] Category II Result 0 [place] Category III 1 (Positive) [place] Sleep Apnea Total 1 (Low Risk) Schooling [...] Followed a special diet (ex: Dr. Andrews, [place],[facility], NutriReveal) Wearing tracking devices helped improve health Yes Worried food would run out before we got money to buy more Never true Food didnt last; no money to get more Never true Woman with baby weighing > 9lbs at No Sister of brother with diabetes No Have parent with diabetes No Younger than 65 yrs and little or no exercise in a day No from [place] pre-visit call: [x]? Review of patient medications completed [x]? NEW medications include: [x]? Confirmed preferred pharmacy: [facility] [place], [place] []? Prescriptions ready to be signed: [x]? Documented self reported vital signs from [x]? Home []? PCP []? outside PCP Date: 09/29/2019 [x]? Weight 263 [x]? Height 163.8 []? Blood pressure []? Pulse [x]? Asked about any recent labs/studies [x]? No []? Yes: []? Labs/vitals requested []? Labs/vitals sent for scanning (workers compensation legal secretary) and entry (RN) [x]? Requested 24 hour diet recall [x]? Reminded to sign up for MyDH [x]? Reminded to complete MyDH survey if message received to do so []? Other information or concerns: ?? FOR FOLLOW-UP VISITS: from mailed intake worksheet ?? Interval History ?? Have you started on any NEW medications? [x]? No []? Yes: ?? Any NEW medical conditions? [x]? No []? Yes: ?? Any recent hospitalizations? []? No []? Yes: ?? Family members with [...] NEW changes in?: ?? Consit: []?More hungry []?Less hungry []?More tired during day ?? HEENT: [...] []?D []?E []?F ?? Resistance training 2x/week: []?A [x]?B []?C []?D []?E []?F ?? Taking your medications: [x]?A []?B []?C []?D []?E []?F ?? Consistent bedtimes: [x]?A []?B []?C []?D []?E []?F ?? Daily stress reduction: ?? [x]?A []?B []?C []?D []?E []?F ?? Reviewed 24 hour diet recall, pt will have ready at appointment time. Glenna Martin [facility] Pt asked me to fax previous labs that were ordered. I have done this and rec'd confirmation VITAL SIGNS: Weight 263 pounds at home. Last 5 weight values: Wt Readings from Last 5 Encounters: 08/29/19 120.2 kg (265 lb) 08/21/19 119.9 kg (264 lb 4.8 oz) 08/11/19 119.3 kg (263 lb) 07/30/19 120.7 kg (266 lb) 07/23/19 121.6 kg (268 lb) PHYSICAL EXAM: Gen: Alert and appropriate, NAD. Psych: NL affect today SUMMARY OF VISIT AND RECOMMENDATIONS: Monisha Das was seen in follow up today and an updated medical, diet and activity review was completed. Additional goals were set for changes in health habits (see below) as was a plan for evaluation and treatment of obesity related co-morbidities. Medical issues and plan: Class 3 Obesity with type 2 diabetes mellitus. Diabetes under good control. Ready for appointment with bariatric surgical team. pre-bariatric labs: looks like we mailed her slips to have these done at [facility]; I don't see results. Sent her [employer] message about this. GERD: Controlled with medication. NAFLD: ?? Should improve with bariatric surgery Labs/Tests ordered today: Need to get pre-bariatric lab results. F/u in: No further appointments scheduled with me. Told her I would be happy to see her again beforebariatric surgery if that would be helpful. Also would be happy to see her 6 months or more after bariatric surgery if needed. I spent a total of 30 minutes with the patient 20 minutes of which were spent in video discussion/counseling re obesity, nutrition, meds and activity as well as obesity related co-morbidities documented in this encounter Plan of Treatment Upcoming Encounters Date Type Specialty Care Team Description 02/08/2022 TH Visit (TeleHealth) General Surgery Rylie Rea, SHERIFF OFFICER [facility] [place] [address] Keiry Chatterjee, SAM [facility] [place] [address] documented as of this encounter Goals Goal [...] adult documented in this encounter Care Teams Cleaning Laborer Relationship Specialty Start Date End Date Huyen Ramon DO PCP - General Family Medicine 04/05/[address] [place] [address] documented as of this encounter
--- OUTSIDE RECORDS SUMMARY | 2022-02-03 02:29 | XMS_ITS | Encounter Summary ---
:1970 Author Organization [facility] [place] [address] Care Team Providers Name Role Phone Huyen Ramon DO Primary Care Provider Encounter Details Date Type Department Care Team Description 10/06/2019 Telephone Weight and Wellness at Forest Snyder RN [facility] [address] [place] [address] Social History Tobacco Use Types Packs/Day Years Used Date Never Smoker Smokeless Tobacco: Never Used Alcohol Use Standard Drinks/Week Comments No 0 (1 standard drink = 0.6 oz pure alcoho l) Sex Assigned at Date Recorded Not on file documented as of this encounter Miscellaneous Notes Telephone Encounter - Forest Snyder RN - 10/06/2019 8:28 AM EDT Request for recent labs sent to Huyen Ramon DO. Thank you, Forest Snyder RN 10/06/2019 8:28 AM documented in this encounter Plan of Treatment Upcoming Encounters Date Type Specialty Care Team Description 02/08/2022 TH Visit (TeleHealth) General Surgery Rylie Rea, ELECTRIC ORGAN ASSEMBLER [facility] [place] [address] Keiry Chatterjee, RD [facility] [address] [place] [address] documented as of this encounter Goals Goal [...] on filedocumented in this encounter Care Teams Plant General Manager Relationship Specialty Start Date End Date Huyen Ramon DO PCP - General Family Medicine 04/05/[address] [place] [address] documented as of this encounter
--- OUTSIDE RECORDS SUMMARY | 2022-02-03 02:29 | XMS_ITS | Encounter Summary ---
:1970 Author Organization [place] [address] Care Team Providers Name Role Phone Huyen Ramon Primary Care Provider Reason for Visit Reason Onset Date Comments Results 11/26/2019 Negative Covid (Pre- Op) Encounter Details Date Type Department Care Team Description 11/26/2019 Telephone [facility] Mary Doherty, Connie (Negative Covid [facility] Diana Gary RN (Pre-Op)) [place] [address] Social History Tobacco Use Types Packs/Day Years Used Date Never Smoker Smokeless Tobacco: Never Used Alcohol Use Standard Drinks/Week Comments No 0 (1 standard drink = 0.6 oz pure alcoho l) Sex Assigned at Date Recorded Not on file documented as of this encounter Miscellaneous Notes Telephone Encounter - Diana Doherty RN - 11/26/2019 8:37 AM EDT Pre-Op testing. Spoke with Monisha and relayed negative results. documented in this encounter Plan of Treatment Upcoming Encounters Date Type Specialty Care Team Description 02/08/2022 TH Visit (TeleHealth) General Surgery Rylie Rea, ENRIQUE [facility] [place] [address] [facility] [place] [address] documented as of this encounter Goals Goal [...] on filedocumented in this encounter Care Teams Squadron Worker Relationship Specialty Start Date End Date Huyen Ramon DO PCP - General Family Medicine 04/05/[address] [place] [address] documented as of this encounter
--- OUTSIDE RECORDS SUMMARY | 2022-02-03 02:29 | XMS_ITS | Encounter Summary ---
:1970 Author Organization [facility] [place] [address] Care Team Providers Name Role Phone Huyen Ramon Primary Care Provider Encounter Details Date Type Department Care Team Description 10/06/2019 External Results [facility] [address] [place] [address] Social History Tobacco Use Types Packs/Day Years Used Date Never Smoker Smokeless Tobacco: Never Used Alcohol Use Standard Drinks/Week Comments No 0 (1 standard drink = 0.6 oz pure alcoho l) Sex Assigned at Date Recorded Not on file documented as of this encounter Progress Notes Forest Snyder RN - 10/06/2019 8:18 AM EDT Corrected error in Creatinine documentation. Thank you, Forest Snyder RN 10/06/2019 8:21 AM documented in this encounter Plan of Treatment Upcoming Encounters Date Type Specialty Care Team Description 02/08/2022 TH Visit (TeleHealth) General Surgery Rylie Rea, MIDDLE SCHOOL RESOURCE TEACHER [facility] [place] [address] Keiry Chatterjee, RD [facility] [place] [address] documented as of this encounter Goals Goal [...] on filedocumented in this encounter Care Teams Bow Maker Custom Relationship Specialty Start Date End Date Huyen Ramon DO PCP - General Family Medicine 04/05/[address] [place] [address] documented as of this encounter
--- OUTSIDE RECORDS SUMMARY | 2022-02-03 02:29 | XMS_ITS | Encounter Summary ---
:1970 Author Organization [facility] [place] [address] Care Team Providers Name Role Phone Huyen Ramon DO Primary Care Provider Encounter Details Date Type Department Care Team Description 09/30/2019 Telephone Weight and Wellness at [facility] Ajay Martin, [facility] [address] [place] [address] Social History Tobacco Use Types Packs/Day Years Used Date Never Smoker Smokeless Tobacco: Never Used Alcohol Use Standard Drinks/Week Comments No 0 (1 standard drink = 0.6 oz pure alcoho l) Sex Assigned at Date Recorded Not on file documented as of this encounter Miscellaneous Notes Telephone Encounter - Glenna Martin, [facility] - 09/30/2019 10:04 AM EDT [facility] Appraiser Pre-telemedicine Visit Phone Note Monisha Das 1970 Current medications/allergies: ??? metFORMIN XR (Glucophage XR) 500 mg Tablet Sustained Release 24 hr ??? aMILoride (Midamor) 5 mg Tablet ??? [...] working phone [] Message left to call [phone] [x] Patient was reached and the following information was reviewed/obtained per protocol: [x] Confirmed patient name and date of [x] Confirmed address where patient will be at time of call Patient is in [] [place] [x] [place] [] Other: [address] [facility] [address] [x] Confirmed best number to be reached is: [phone] [x] Confirmed telemedicine software downloaded and functioning REVIEW: [x] Review of patient medications completed [x] NEW medications include: [x] Confirmed preferred pharmacy: [facility] [place], [place] [] Prescriptions ready to be signed: [x] Documented self reported vital signs from [x] Home [] PCP [] outside PCP Date: 09/29/2019 [x] Weight 263 [x] Height 163.8 [] Blood pressure [] Pulse [x] Asked about any recent labs/studies [x] No [] Yes: [] Labs/vitals requested [] Labs/vitals sent for scanning (loan secretary) and entry (RN) [x] Requested 24 hour diet recall [x] Reminded to sign up for MyDH [x] Reminded to complete [facility] survey if message received to do so [] Other information or concerns: FOR FOLLOW-UP VISITS: from mailed intake worksheet Interval History ??? Have you started on any NEW medications? [x] No [] Yes: ??? Any NEW medical conditions? [x] No [] Yes: ??? Any recent hospitalizations? [] No [] Yes: ??? Family members with [...] NEW changes in?: ??? Consit: []More hungry []Less hungry []More tired during day ??? HEENT: [...] []D []E []F ??? Resistance training 2x/week: []A [x]B []C []D []E []F ??? Taking your medications: [x]A []B []C []D []E []F ??? Consistent bedtimes: [x]A []B []C []D []E []F ??? Daily stress reduction: [x]A []B []C []D []E []F Reviewed 24 hour diet recall, pt will have ready at appointment time. Glenna Martin CMA Pt asked me to fax previous labs that were ordered. I have done this and rec'd confirmation. documented in this encounter Plan of Treatment Upcoming Encounters Date Type Specialty Care Team Description 02/08/2022 TH Visit (TeleHealth) General Surgery Rylie Rea, LOCATOR [facility] [place] [address] Keiry Chatterjee, RD [facility] [place] [address] documented as of this encounter Goals Goal [...] on filedocumented in this encounter Care Teams Agile Scrum Coach Relationship Specialty Start Date End Date Huyen Ramon DO PCP - General Family Medicine 04/05/[address] [place] [address] documented as of this encounter
--- OUTSIDE RECORDS SUMMARY | 2022-02-03 02:29 | XMS_ITS | Encounter Summary ---
:1970 Author Organization [facility] [place] [address] Care Team Providers Name Role Phone Tristen Huyenjenna Tucker DO Primary Care Provider Encounter Details Date Type Department Care Team Description 09/22/2019 Telephone Weight and Wellness at [facility] Izabela Hall [address] [place] [address] Social History Tobacco Use Types Packs/Day [...] TH Visit (TeleHealth) General Surgery Rylie Rea, BRAILLE PROOFREADER [facility] [place] [address] Keiry Chatterjee, RD [facility] [place] [address] documented as of this encounter Goals Goal [...] on filedocumented in this encounter Care Teams Anode Machine Operator Relationship Specialty Start Date End Date Huyen Ramon DO PCP - General Family Medicine 04/05/18 [facility] [place] [address] documented as of this encounter
--- OUTSIDE RECORDS SUMMARY | 2022-02-03 02:29 | XMS_ITS | Encounter Summary ---
:1970 Author Organization [place] [address] Care Team Providers Name Role Phone TristenHuyen Caitlin MOORE Primary Care Provider Reason for Visit Auth/Cert Specialty Diagnoses / Procedures Referred By Contact Refer red To Contact Diagnoses Morbid obesity MORBID OBESITY Procedures PRO LAP GASTRIC BYPASS/LUIS ANTONIO-EN-Y @LAPAROSCOPIC GASTROPLASTY W/ LUIS ANTONIO-EN-Y CONSTRUCTION (WRVU 29.4) Referral ID Status Reason Start Date Expiration Date Visits Requ ested Visits Authorized [id number] 1 1 Encounter Details Date Type Department Care Team Description 11/28/2019 - Hospital Encounter 4 [place] Mary Garcia [facility] [place] 11/29/2019 [facility] MD [facility] [address] [place] GENERAL SURGERY [address] [place] [address] [phone] Social History Tobacco Use Types Packs/Day Years Used Date Never Smoker Smokeless Tobacco: Never Used Alcohol Use Standard Drinks/Week Comments No 0 (1 standard drink = 0.6 oz pure alcoho l) Sex Assigned at Date Recorded Not on file documented as of this encounter Last Filed Vital Signs Vital Sign Reading Time Taken Comments Blood Pressure 147/91 11/29/2019 11:15 AM EDT Pulse 75 11/29/2019 11:15 AM EDT Temperature 36.7 ??C (98.1 ??F) 11/29/2019 11:15 AM EDT Respiratory Rate 16 11/29/2019 11:15 AM EDT Oxygen Saturation 98% 11/29/2019 1:50 PM EDT Inhaled Oxygen Concentration - - Weight [...] 12/15/2019 8:[address]; Rylie Rea, ENRIQUE General Surgery at [facility] Arrive at: [facility] Area [phone] 03/30/2020 11:[address]; Rylie Rea APRN General Surgery at [facility] Arrive at: [facility] [phone] Instructions Given to Patient at Discharge: Patient Instructions BARIATRIC SURGERY DISCHARGE INFORMATION BARIATRIC SUPPORT TEAM CONTACT NUMBERS (Mon-Fri 8am - 5pm): General Surgery and Bariatric Surgery [phone] Bariatric Surgeons: Doctors. Shaw [phone] Assisted Living Administrator: [phone] Dietitians: [phone] Outside of regular business hours, including weekends and holidays: Ask for General Surgery resident manager community relations [phone] Please note, this call will be answered [...] weeks at the General Surgery Outpatient Clinic ([facility] [address] [place] [address]). Future Appointments Date Time Provider Department Center 12/15/2019 8:30 AM Rylie Rea APRN [facility] SURG [facility] 03/30/2020 11:00 AM Rylie Rea APRN [facility] SURG [facility] BATHING AND WOUND CARE: ?? You may [...] 200 on more than 3 checks, [facility] or diabetic specialist for recommendations. For patients on insulin and oral diabetic medications: If blood sugar is over 200 on 3 checks, call your primary care doctor or diabetic specialist for recommendations. ?? Follow up with primary care provider or commercial credit specialist in 1-2 weeks in order to [...] RD; Rylie Rea APRN General Surgery at [facility] Arrive at: [facility] [phone] 03/30/2020 11:[address]; Rylie Rea APRN General Surgery at [facility] Arrive at: [facility] [phone] Signed: Keon Roberson MD 11/29/2019 Primary [place] Physician: Huyen Ramon DO [address] [place] [address] [facility] [id number] documented in this encounter Discharge Instructions Patient InstructionsCoKeon bradshaw MD - 11/29/2019 10:31 AM EDT BARIATRIC SURGERY DISCHARGE INFORMATION BARIATRIC SUPPORT TEAM CONTACT NUMBERS (Mon-Fri 8am - 5pm): General Surgery and Bariatric Surgery [phone] Bariatric Surgeons: Doctors. [facility] [phone] Assisted Living Administrator: [phone] Dietitians: [phone] Outside of regular business hours, including weekends and holidays: Ask for General Surgery resident manager community relations [phone] Please note, this call will be answered [...] weeks at the General Surgery Outpatient Clinic ([facility], [facility]). Future Appointments Date Time Provider Department Center 12/15/2019 8:30 AM Rylie Rea APRN [facility] SURG [facility] 03/30/2020 11:00 AM Rylie Rea APRN [facility] SURG [facility] BATHING AND WOUND CARE: ?? You may [...] Follow up with primary care provider or commercial credit specialist in 1-2 weeks in order to [...] Outcome: Ongoing (Interventions Implemented as Appropriate) 11/29/19 9978 Coping/Psychosocial Plan Of Care Reviewed With patient Plan of Care Review Progress improving OUTCOME EVALUATION NOTE: OUTCOME SUMMARY: Pt presents to [facility] room 410A at 1951 s/p lap [...] Garcia MD - 11/28/2019 4:22 PM EDT [facility] Operative Note Patient Name: Monisha Das : [id number] MR#: [id number] Case Date: 11/28/2019 Surgeon: Surgeon(s) and Role: [...] The abdomen was then entered using the optiview trocar system using an 11-mm port. The [...] distal bowel was chosen to create the [id number] jejunojejunostomy. The duodenal, afferent limb was approximated [...] suture in two layers with a 30 Panaman[place] Bougie (blunt-tipped) in place. The Bougie was [...] TH Visit (TeleHealth) General Surgery Rylie Rea, CIVIL ENGINEER HELPER [facility] [place] [address] [facility] [place] [address] documented as of this encounter Goals Goal [...] eating hours would look more lik e -6 or 11-7- just keeping the 8 hour [...] any time you're eating Lifestyle Sandy Santana, RD Note: Formatting of this note might [...] (ABNORMAL) Differential, Automated (11/29/2019 3:47 AM EDT) [facility] gist Method Time Signature Neutrophils % 79.7 % [facility] LABOR[facility]ORY Neutr Abs (ANC) 8.50 (H) 1.70 - [facility] 6.10 [facility] x[facility](3)/[facility] LABORATORY Lymphocytes % 14.4 % [facility] Lymphocytes Abs 1.5 0.9 - 3.2 [facility] x10(3)/[facility] LABORATORY Monocytes % 5.2 % [facility] Monocyte Abs 0.6 0.3 - 0.9 [facility] x10(3)/[facility] LABORATORY Eosinophils % 0.0 % [facility] Eosinophils Abs 0.0 0.0 - 0.4 [facility] x10(3)/[facility] LABORATORY Basophils % 0.2 % [facility] Basophils Abs 0.0 0.0 - 0.1 [facility] x10(3)/[facility] LABORATORY Immature Gran % 0.50 % [facility] Comment: Immature granulocytes(IG's)percentage an d absolute count will include metamyelocytes, myelocytes, and promyelo cytes. Blood smears from CBCs yielding IG's will be scanned manually for concor dance. If this scan disagrees with the automated IG or if promyelocytes are not ed, a manual differential will be performed. Alfreda Gran Abs 0.05 (H) 0.00 - 0.04 x10(3)/[facility] LABORATORY Specimen Anatomical Collection Method Collection Time Receive d Time (Source) Location / / Volume Laterality Blood specimen 11/29/2019 3:47 AM 020 4:16 (specimen) EDT AM EDT Resulting Agency Comment Spec In Lab Thomas Freire MD HEMATOLOGY ORDERABLES Performing Organization Address City/State/ZIP [place] [address] (ABNORMAL) Hemogram (11/29/2019 3:47 AM EDT) Analysis Performed At Patho logist Time Signature WBC 10.6 (H) 4.0 - 9.5 [facility] x10(3)/[facility] LABORATORY RBC 4.52 4.00 - [facility] 5.21 [facility] x10(6)/[facility] LABORATORY Hemoglobin 13.2 11.7 - [facility] 15.5 gm/dL [facility] LABORATORY Hematocrit 38.8 35.7 - [facility] 45.8 % [facility] MCV 85.8 82.6 - [facility] 94.4 fL [facility]OR[facility]ORY MCH 29.2 27.1 - [facility] 32.0 pg [facility] LABORATORY MCHC 34.0 31.7 - MARY ANTHONY 35.0 gm/dL [facility] LABORATORY Platelets 323 145 - 357 [facility] x10(3)/[facility] LABORATORY RDWSD 41.8 37.0 - [facility] RAJ 46.0 [facility] LABORATORY RDWCV 13.3 11.5 - [facility] RAJ 14.1 % [facility] LABORATORY MPV 9.8 7.6 - 12.9 [facility] LABORATORY nRBC % Auto 0.0 % [facility] LABOR[facility]ORY nRBC Abs Auto 0.000 0.000 - [facility] x[facility](3[facility] LABORATORY Specimen Anatomical Collection Method Collection Time Receive d Time (Source) Location / / Volume Laterality Blood specimen 11/29/2019 3:47 AM 020 4:16 (specimen) EDT AM EDT Resulting Agency Comment Spec In Lab Thomas Freire MD HEMATOLOGY ORDERABLES Performing Organization Address City/State/ZIP [place] [address] Basic Metabolic Panel (non-fasting) (11/29/2019 3:47 AM EDT) P athologist Signature Glucose Lvl 123 65 - 199 [facility] mg/dL [facility]OR[facility]ORY Comment: Diabetes: >=200 mg/dL plus symp toms BUN 13 8 - 18 mg/dL [facility] Creatinine 0.80 0.70 - 1.20 mg/dL [facility] Sodium 136 135 - 145 mmol/L [facility] Potassium 4.0 3.5 - 5.0 mmol/L [facility] Comment: Please note: ??Patients with WBC >100,00 0 may have falsely elevated Potassium levels. ??For accurate Potassium quantif ication in these patients send serum separator tube (gold top) for subsequent determinations. ??Contact the Clinical Chemistry Laboratory if there are any qu estions. Chloride 101 98 - 107 mmol/L [facility] CO2 23 22 - 31 mmol/L [facility] Anion Gap 12 5 - 15 mmol/L [facility] Calcium 9.1 8.5 - 10.5 mg/dL [facility] Estimated GFR 87 >=60 mL/min/1.73 m?? [facility] Comment: The eGFR was calculated using the CKD-EP I equation. As with all creatinine based estimates of kidney function, eGFR values calculated with the CKD-EPI equation are not accurate in patients wi th acute kidney failure, extremes of body mass or the acutely ill. http://[facility] eGFR 100 >=60 mL/min/1.73 m?? [facility] Comment: The eGFR was calculated using the CKD-EP I equation. As with all creatinine based estimates of kidney function, eGFR values calculated with the CKD-EPI equation are not accurate in patients wi th acute kidney failure, extremes of body mass or the acutely ill. http://[facility] Specimen Anatomical Collection Method Collection Time Receive d Time (Source) Location / / Volume Laterality Blood specimen 11/29/2019 3:47 AM 020 4:16 (specimen) EDT AM EDT Resulting Agency Comment Spec In Lab Nusrat Garcia MD CHEMISTRY ORDERABLES Performing Organization Address City/State/ZIP Code Phon e Number [address] Phosphorus (11/29/2019 3:47 AM EDT) P athologist Signature Phosphorus 3.6 2.5 - 4.5 [facility] mg/[facility]OR[facility]ORY Specimen Anatomical Collection Method Collection Time Receive d Time (Source) Location / / Volume Laterality Blood specimen 11/29/2019 3:47 AM 020 4:16 (specimen) EDT AM EDT Resulting Agency Comment Spec In Lab Nusrat Garcia MD CHEMISTRY ORDERABLES Performing Organization Address City/[facility]/ZIP Code Phon e Number [address] Magnesium (11/29/2019 3:47 AM EDT) P athologist Signature Magnesium 0.72 0.69 - 1.07 [facility] mmol/L [facility] LABORATORY Specimen Anatomical Collection Method Collection Time Receive d Time (Source) Location / / Volume Laterality Blood specimen 11/29/2019 3:47 AM 020 4:16 (specimen) EDT AM EDT Resulting Agency Comment Spec In Lab Nusrat Garcia MD CHEMISTRY ORDERABLES Performing Organization Address City/[facility]/ZIP Code Phon e Number [address] POCT Glucose (11/28/2019 5:19 PM EDT) P athologist Signature POC Glucose 100 65 - 199 [facility]dL [facility]ORY Comment: Supplemental ranges: <140 mg/dL before meals <180 mg/dL all other times of the day Specimen Anatomical Collection Method Collection Time Receive d Time (Source) Location / / Volume Laterality Blood specimen 11/28/2019 5:19 PM 020 5:19 (specimen) EDT PM EDT Nusrat Garcia MD POINT OF CARE TEST ORDERABLE S Performing Organization Address City/[facility]/ZIP Code Phon e Number [address] POCT Glucose (11/28/2019 11:32 AM EDT) P athologist Signature POC Glucose 96 65 - 199 [facility] mg/dL [facility] Comment: Supplemental ranges: <140 mg/dL before meals <180 mg/dL all other times of the day Specimen Anatomical Collection Method Collection Time Receive d Time (Source) Location / / Volume Laterality Blood specimen 11/28/2019 11:32 0 (specimen) AM EDT 11:32 AM EDT Nusrat Garcia MD POINT OF CARE TEST ORDERABLE S Performing Organization Address City/[facility]/[place] [address] documented in this encounter Visit Diagnoses Diagnosis Morbid obesity documented in this encounter Admitting Diagnoses Diagnosis Morbid obesity documented in this encounter Administered Medications Inactive Administered Medications - up to 3 most recent administrations Medication Order MAR Action Action Date Dose Rate Site acetaminophen (Tylenol) tablet Given 11/28/2019 11:56 AM EDT 1,0 00 mg 1,000 mg 1,000 mg, Oral, ONCE, 1 dose, On Sun11/28/19 at 1200, Day of Surgery (Day of Procedure), Routine aMILoride (Midamor) tablet 5 mg Given 11/29/2019 [...] at 0800, Until Discontinued, Routine enoxaparin (LOVENOX) Given 11/28/2019 11:56 AM EDT 40 mg Left Lower Quadrant injection 40 mg 40 mg, Subcutaneous, ONCE, 1 dose, On Sun11/28/19 at 1200, Routine enoxaparin (LOVENOX) injection 40 mg Given 11/29/2019 8:08 AM EDT 40 mg 40 mg, Subcutaneous, 2 TIMES DAILY, First dose on Sun11/28/19 at 2100, Until Discontinued, Routine Given 11/28/2019 9:32 PM EDT 40 mg HYDROmorphone (DILAUDID) injection 0.2-0 .4 mg Given 11/28/2019 5:21 PM EDT 0.4 mg 0.2-0.4 mg, Intravenous, EVERY 5 MIN PRN, Starting on Sun11/28/19 at 1615, Until Sun11/28/19 at 1826, Pain, Give 0.2 mg every 5 minutes PRN for mild to moderate pain (1-5) Give 0.4 mg every 5 minutes PRN for moderate to severe pain (6-10). Hold for respiratory rate less than 10 per minute. Maximum dose 4 mg over one hour. If multiple pain medications are ordered, start with hydromorphone or morphine and use fentanyl for breakthrough pain., PACU Recovery, Routine HYDROmorphone (DILAUDID) injection 0.4 m g Given 11/29/2019 12:03 AM EDT 0.4 mg 0.4 mg, Intravenous, EVERY 2 HOURS PRN, Starting on Sun11/28/19 at 1955, Until 11/29/19 at 0835, Pain, Moderate-Severe pain 4-10, Routine lactated ringers infusion New Bag 11/28/2019 3:26 PM EDT 1,000 mL, at 100 mL/hr, Intravenous, CONTINUOUS, Starting on Sun11/28/19 at 1200, Until Sun11/28/19 at 1724, Day of Surgery (Day of Procedure) New Bag 11/28/2019 2:46 PM EDT New Bag 11/28/2019 11:49 AM EDT 1,000 mLs 100 mL/hr lactated ringers infusion New Bag 11/29/2019 3:37 AM EDT 100 mL/hr 100 mL/hr 100 mL/hr, Intravenous, CONTINUOUS, Starting on Sun11/28/19 at 1730, Until 11/29/19 at 0708, Recovery (Recovery-Hospital Unit) New Bag 11/28/2019 5:09 PM EDT 100 mL/hr 100 mL/hr lidocaine (XYLOCAINE) 10 mg/mL (1 %) injection Given 0 11/28/2019 11:49 AM EDT 3 mg 3 mg 3 mg (0.3 mL), Subcutaneous, ONCE PRN, 1 dose, Starting on Sun11/28/19 at 1135, Until Sun11/28/19 at 1149, for discomfort with PIV insertion, Day of Surgery (Day of Procedure), Routine ondansetron (ZOFRAN) injection 4 mg Given 11/28/2019 [...] 0.25 mg, Oral, DAILY, First dose on 11/29/19 at 0900, Until Discontinued, Routine prochlorperazine (COMPAZINE) [...] Procedure), Routine aMILoride (Midamor) tablet 5 mg 2099 (No t Given - Provider: Mayra Thrasher RN - Reason: NPO) 0821 (Given - Provider: Anurag Bills RN) 5 mg, Oral, 2 TIMES DAILY, First dose on Sun11/28/19 at 2100, Until Discontinued, Routine buPROPion XL (Wellbutrin XL) tablet 300 mg 00 (Hold - Provider: Mayra Thrasher RN - Reason: NPO)0807 (Given - Provider: Anurag Bills RN) 300 mg, Oral, EVERY MORNING, First dose on Sun11/29/19 at 0700, Until Discontinued, DO NOT CRUSH OR OPEN, Routine carvediloL (Coreg) tablet 25 mg 08 (Given - Provider: Anurag Bills RN) 25 mg, Oral, 2 TIMES DAILY WITH [...] 1156 (Given - Provider: Madison Ramirez RN) 40 mg, Subcutaneous, ONCE, 1 dose, Sun11/28/19 at 1200, Routine enoxaparin (LOVENOX) injection 40 mg 213 2 (Given - Provider: Mayra Thrasher RN) 0808 [...] chloride 0.9 % (flush) flush 5 mL 213 (Given - Provider: Mayra Thrasher, LORELEI) 0807 (Given - Provider: Anurag Bills , LORELEI) 5 mL, Intravenous, 2 TIMES DAILY, First [...] RN) 0337 (New Bag - Provider: Mayra lara, LORELEI)0725 (Stopped - Provider: Monihsa Samuel RN) 100 mL/hr, at 100 mL/hr, [...] 6 HOURS PRN, S tarting 11/28/19 at 1724, Until 11/29/19 at 1725, Itching, Routine HYDROmorphone (DILAUDID) injection 0.2-0.4 mg (CANCELED) 1721 (Given - Provider: Cecelia Gloria RN) 0.2-0.4 mg, Intravenous, EVERY 5 MIN PRN , Starting Sun11/28/19 at 1615, Until 11/28/19 at 1826, Pain, Give 0.2 mg every [...] 1 dose, Starting Sun11/28/19 at 1135, Until 11/28/19 at 1149, for discomfort with PIV insertion, [...] Intravenous, EVERY 8 HOURS PRN, St arting 11/28/19 at 1955, Until 11/29/19 at 1725, [...] 10 mg 0258 (Given - Provider: Mayra Thrasher RN) 10 mg, Intravenous, EVERY 6 HOURS PRN, [...] Routine documented in this encounter Care Teams Contract Sheltered Workshop Supervisor Relationship Specialty Start Date End Date Huyen Ramon DO PCP - General Family Medicine 04/05/18 [address] [place] [address] documented as of this encounter
--- OUTSIDE RECORDS SUMMARY | 2022-02-03 02:29 | XMS_ITS | Encounter Summary ---
:1970 Author Organization [facility] [place] [address] Care Team Providers Name Role Phone Tristen Huyenjenna Tucker DO Primary Care Provider Encounter Details Date Type Department Care Team Description 07/28/2019 Orders Only Weight and Wellness at Linda Cai MD [facility] [place] [address] CARE [phone] [place], [place] [address] (Wo rk) Social History Tobacco [...] TH Visit (TeleHealth) General Surgery Rylie Rea, ARMORED VEHICLE OFFICER [facility] [place] [address] Keiry Chatterjee, RD [facility] [place] [address] documented as of this encounter Goals Goal [...] from the original. Tracking with fit bit documented as of this encounter Visit Diagnoses Not on filedocumented in this encounter Care Teams Respite Coordinator Relationship Specialty Start Date End Date Huyen Ramon, PCP - General Family Medicine 04/05/[address] [place] [place] [address] documented as of this encounter
--- OUTSIDE RECORDS SUMMARY | 2022-02-03 02:29 | XMS_ITS | Encounter Summary ---
:1970 Author Organization [facility] [place] [address] Care Team Providers Name Role Phone Huyen Ramon DO Primary Care Provider Encounter Details Date Type Department Care Team Description 12/05/2019 Telephone General Surgery at [facility] Keiry [address]jee [place] [address] GENERAL SURGERY [phone] [place], [place] [address] (Wo rk) Social History Tobacco Use Types Packs/Day Years Used Date Never Smoker Smokeless Tobacco: Never Used Alcohol Use Standard Drinks/Week Comments No 0 (1 standard drink = 0.6 oz pure alcoho l) Sex Assigned at Date Recorded Not on file documented as of this encounter Miscellaneous Notes Telephone Encounter - Keiry Chatterjee RD - 12/05/2019 3:48 PM EDT Called Monisha to follow-up regarding limited PO intake s/p bariatric surgery. Left with my contact information and asked her to return my call. ADDENDUM: Monisha left a VM stating she was doing a little better She was able to eat some soup and later some baby peaches. She is aware neither is high in protein but wanted to get some food in. She is planningon adding protein powder to her soup next time. She asked if she could add PB2 to cashew milk and have that. I called Monisha back and let her know PB2 and cashew milk is fine. Encouraged her to continue tryingfoods. She does report she is feeling better now that she has had some calories. Monisha asked if shecan take capsules whole after 2 weeks, the answer to which is yes. Encouraged Monisha to call with any questions or if PO intake does not continue to improve. documented in this encounter Plan of Treatment Upcoming Encounters Date Type Specialty Care Team Description 02/08/2022 TH Visit (TeleHealth) General Surgery Rylie Rea, GEOLOGICAL SCOUT [facility] [place] [address] [facility] [address] documented as of this encounter Goals Goal Patient Goal Associated Recent Patient-Stated? Author Type Problems Progress increase Lifestyle On track No Ayala, active ilia (08/29/2019 Linda Arcos goal 10:03 [...] on filedocumented in this encounter Care Teams Fuel Cell Designer Relationship Specialty Start Date End Date Huyen Ramon DO PCP - General Family Medicine 04/05/[address] [place] [place] [address] documented as of this encounter
--- OUTSIDE RECORDS SUMMARY | 2022-02-03 02:29 | XMS_ITS | Encounter Summary ---
:1970 Author Organization [facility] [place] [address] Care Team Providers Name Role Phone Huyen Ramon DO Primary Care Provider Encounter Details Date Type Department Care Team Description 08/21/2019 Telephone Weight and Wellness at Forest Snyder RN [facility] [address] [place] [address] Social History Tobacco Use Types Packs/Day Years Used Date Never Smoker Smokeless Tobacco: Never Used Alcohol Use Standard Drinks/Week Comments No 0 (1 standard drink = 0.6 oz pure alcoho l) Sex Assigned at Date Recorded Not on file documented as of this encounter Miscellaneous Notes Telephone Encounter - Forest Snyder RN - 08/21/2019 8:51 AM EDT Request for recent labs sent to Huyen Ramon DO. Thank you, Forest Snyder RN 08/21/2019 8:52 AM documented in this encounter Plan of Treatment Upcoming Encounters Date Type Specialty Care Team Description 02/08/2022 TH Visit (TeleHealth) General Surgery Rylie Rea, RADIOLOGY ASSISTANT [facility] [place] [address] Keiry Chatterjee, RD [facility] DR [place] [address] documented as of this encounter Goals Goal [...] on filedocumented in this encounter Care Teams Auto Body Repair Technician Relationship Specialty Start Date End Date Huyen Ramon DO PCP - General Family Medicine 04/05/[address] [place] [address] documented as of this encounter
--- OUTSIDE RECORDS SUMMARY | 2022-02-03 02:30 | XMS_ITS | Encounter Summary ---
:1970 Author Organization [facility] [place] [address] Care Team Providers Name Role Phone Sushil Loya MD Primary Care Provider [phone] Encounter Details Date Type Department Care Team Description 09/28/2015 Telephone Endocrinology at [facility] Estefania Watkins, [place] [phone] Social History Tobacco Use Types Packs/Day Years Used Date Never Smoker Sex Assigned at Date Recorded Not on file documented as of this encounter Miscellaneous Notes Telephone Encounter - Estefania Cooper RN - 09/28/2015 11:16 AM EDT Received voicemail message from Monisha Godoy's partner. Jayne states that Monisha is very anxious to get back the results of her lab tests. Is hoping someone will be able to get in touch with them. Placed call back to Monisha. Let her know one urine test is back and will ask Dr Guzman to get intouch with her for the result. Monisha also asks about the Salivary cortisol tests. Those are also back so will ask that she review them too. [employer] Die Maker called [facility] to check on 24 hour urine cortisol test. Results not back and maybe not back until Sunday or the beginning of next week. Monisha made aware of this also. Message verbally passed on to Dr Guzman who will get in touch with Monisha via [facility] documented in this encounter Plan of Treatment Upcoming Encounters Date Type Specialty Care Team Description 02/08/2022 TH Visit (TeleHealth) General Surgery Rylie Rea, MANAGER PR[employer]ICE [place] [address] Keiry Chatterjee, SAM [facility] [place] [address] documented as of this encounter Visit Diagnoses Not on filedocumented in this encounter Care Teams Animal Sitter Relationship Specialty Start Date End Date Sushil Loya MD PCP - General General Internal Medicine 09/13/15 06/01/[email or web address] [place] [address] documented as of this encounter
--- OUTSIDE RECORDS SUMMARY | 2022-02-03 02:30 | XMS_ITS | Encounter Summary ---
:1970 Author Organization [facility] [place] [address] Care Team Providers Name Role Phone Osiris Garcia APRN Primary Care Provider Encounter Details Date Type Department Care Team Description 12/05/2017 Surgery [place] [facility] [place] Narayan, UPPER EUS- ENDOSCOPIC [facility] Z[place] [address] [facility] [phone] DR GASTROENTEROLOGY DEPT. [place], [place] [address] Social History Tobacco Use Types Packs/Day Years Used Date Never Smoker Smokeless Tobacco: Never Used Alcohol Use Standard Drinks/Week Comments No 0 (1 standard drink = 0.6 oz pure alcoho l) Sex Assigned at Date Recorded Not on file documented as of this encounter Last Filed Vital Signs Vital Sign Reading Time Taken Comments Blood Pressure 131/72 12/05/2017 3:39 PM EDT Pulse 80 12/05/2017 3:39 PM EDT Temperature 36.8 ??C (98.2 ??F) 12/05/2017 3:39 PM EDT Respiratory Rate 15 12/05/2017 3:39 PM EDT Oxygen Saturation 99% 12/05/2017 3:39 PM EDT Inhaled Oxygen Concentration - - Weight 108 kg (238 lb) 12/05/2017 3:39 PM EDT Height 165.1 cm (5' 5) 12/05/2017 3:39 PM EDT Body Mass Index 39.61 12/05/2017 3:39 PM EDT documented in this encounter Discharge Instructions Discharge InstructionsMadiha Negrete, LORELEI - 12/05/2017 7:42 PM EDT UPPER GI ENDOSCOPY wit biopsies & Upper endoscopic Ultrasound WHAT TO EXPECT AFTER THE PROCEDURE Medications You may have a mild sore throat. Ice chips, popsicles, over the counter throat lozenges or spray may help numb your throat. This procedure should not cause a fever. Call your healthcare provider or seek immediate medical attention if: You have trouble swallowing. You have belly pain. Your stools are black or tarlike or have streaks of blood. You are sick to your stomach or cannot keep fluids down. Watch closely for changes in your health, and be sure to contact your doctor IF Your throat still hurts after a day or two You do not get better as expected. Colonoscopy with biopsies What to expect after the procedure You may feel a little more gassy or bloated than usual. This is normal. You should expect the return of normal bowel function in the 2 to 3 days. Activity Because of the sedation that you received your judgement and reaction time are effected ?? Go home and rest quietly for the remainder of the day. You may resume your normal activities tomorrow. ?? Change from one position to the next slowly. You may lose your balance unexpectedly ?? Be careful on stairs, as you may be unsteady on your feet FOR THE NEXT 24 HRS ?? DO NOT DRIVE OR OPERATE ANY MACHINERY ?? DO NOT DRINK ALCOHOLIC BEVERAGES ?? DO NOT SIGN LEGAL DOCUMENTS ?? If you are a smoker: DO NOT SMOKE WHILE YOU ARE ALONE Diet ?? Start by eating small portions of foods that ordinarily will not upset your stomach . Avoid gas producing foods for the next few days ?? Be gentle with what you choose to start with ?? Drink plenty of fluids ( unless your doctor has told you not to). IV SITE-- slight redness, or tenderness is normal. You can use warm compresses if you become concerned. If the tenderness +/or redness increases or foul drainage and a red streak occurs, please contact your PCP immediately When shoud you call for help? Call 911 anytime you think you may need emergency care. For example If you pass out ( loss of consciousness) If you pass maroon or bloody stools If you have severe belly pain Call your doctor now or seek immediate medical care If your stools are black and tarlike If your stools have streaks of blood, but you did not have a biopsy or any polyps removed If you have belly pain, or your belly is swollen and firm If you vomit If you have a fever If you are very dizzy Watch closely for changes in your health, and be sure to contact your doctor if you have any problems Your doctor will let you know when you will need your next colonoscopy. The results of your test andyour risk for colorectal cancer will help your doctor decide how often you need to be checked. Sunday-Sunday Same Day Endo [phone]-8p Otherwise contact [phone] and ask to speak to the manufacturing intern environmental marketing representative Follow up care is a pryor part of your treatment and safety. Be sure to make and go to all appointments, and call your doctor if you are having problems. Discharge instructions reviewed with patient who expresses understanding Patient InstructionsGoLuther jade MD - 12/05/2017 7:05 PM EDT Please see Recommendations in the Provation procedure report which is documented in the procedural note in E-DH. documented in this encounter Medications at Time of Discharge Medication Sig Dispensed Refills Start Date End Date gabapentin (NEURONTIN) 300 800mg BID 0 5 mg Capsule omeprazole (PRILOSEC) 40 Take 40 mg by mouth 0 mg Capsule, Delayed daily. Release(E.C.) ondansetron (ZOFRAN) 4 mg Take 4 mg by mouth 0 12/28/2020 Tablet every 8 hours as needed for Nausea. UNABLE TO FIND Med Name: elaine 0 2018 vitamin multivitamin and mineral colestipol (COLESTID) 1 Take 1 tablet by 60 tablet 11 201708/15/2018 gram Tablet mouth 2 times daily. Magnesium 200 mg Tablet Take 400 mg by 0 11/19/2019 mouth daily. pramipexole (MIRAPEX) 0.25 Take 0.25 mg by 0 12/28/2020 mg Tablet mouth daily. One tab pm/ 2 tabs qhs lisinopril Take 20 mg by mouth 0 12/28 (PRINIVIL;ZESTRIL) 20 mg daily. Reported on Tablet 06/15/2016 fish oil-omega-3 fatty Take 2 g by mouth 0 10/16/2018 acids 1,000 mg Capsule daily. Reported on 06/15/2016 buPROPion (WELLBUTRIN XL) Take 300 mg by 0 11/29/2019 300 mg Tablet Sustained mouth every Release 24 hr morning. topiramate (TOPAMAX) 100 Take 50 mg by mouth 0 07/23/2019 mg Tablet daily. hydrOXYzine (ATARAX) 25 mg Take 25 mg by mouth 0 08/11/2019 Tablet every 8 hours as needed for Itching. triamcinolone (ARISTOCORT) Apply topically as 0 12/28/2020 0.5 % Cream needed. hydrochlorothiazide 0 02/04/201010/03 (HYDRODIURIL) 25 mg tablet documented as of this encounter H&P Notes Wilfredo Vallejo MD - 12/05/2017 6:11 PM EDT PROBLEM LIST There is no problem list on file for this patient. HISTORY OF PRESENT ILLNESS Monisha Das is a 46 y.o. woman who presents for endoscopic evaluation of diarrhea, dysphagia, abdominal pain, and flushing. MEDICATIONS No current facility-administered medications on file prior to encounter. Current Outpatient Prescriptions on File Prior to Encounter Medication Sig Dispense Refill ??? UNABLE TO FIND Med Name: elaine vitamin multivitamin and mineral ??? gabapentin (NEURONTIN) 300 mg Capsule BID ??? omeprazole (PRILOSEC) 40 mg Capsule, Delayed Release(E.C.) Take 40 mg by mouth daily. ??? pramipexole (MIRAPEX) 0.25 mg Tablet Take 0.25 mg by mouth daily. ??? lisinopril (PRINIVIL;ZESTRIL) 20 mg Tablet Take 20 mg by mouth 2 times daily. Reported on 06/15/2016 ??? buPROPion (WELLBUTRIN XL) 300 mg Tablet Sustained Release 24 hr Take 300 mg by mouth every morning. ??? topiramate (TOPAMAX) 100 mg Tablet Take 150 mg by mouth daily. ??? hydrochlorothiazide (HYDRODIURIL) 25 mg tablet ??? colestipol (COLESTID) 1 gram Tablet Take 1 tablet by mouth 2 times daily. 60 tablet 11 ??? Magnesium 200 mg Tablet Take by mouth daily. ??? fish oil-omega-3 fatty acids 1,000 mg Capsule Take 2 g by mouth daily. Reported on 06/15/2016 ??? hydrOXYzine (ATARAX) 25 mg Tablet Take 25 mg by mouth every 8 hours as needed for Itching. ??? triamcinolone (ARISTOCORT) 0.5 % Cream Apply topically as needed. PHYSICAL EXAM: Blood pressure 131/72, pulse 80, temperature 36.8 ??C (98.2 ??F), resp. rate 15, height 165.1 cm (5'5), weight 108 kg (238 lb), last menstrual period 11/16/2017, SpO2 99 %. GEN: Alert, cooperative. Pleasant. In NAD Rest per anesthesia recommendations RECENT LABS No results found for this or any previous visit (from the past 24 hour(s)). ASSESSMENT AND PLAN Monisha Das is a 46 y.o. woman who presents for endoscopic evaluation. Risks extensively discussed including bleeding, infection, reaction to anesthesia, perforation, pancreatitis (if applicable), bile duct injury (if applicable), missing a cancer (if applicable) and/or other unforseen complicati on. Consent signed and patient well informed of the risks of the procedure. documented in this encounter Miscellaneous Notes Op Note - Luther Narayan MD - 12/05/2017 7:04 PM EDT [facility] [place] Note Patient Name: Monisha Das : [id number] MR#: [id number] Case Date: 12/05/2017 Surgeon: Surgeon(s) and Role: * Luther Narayan MD - Primary * Wilfredo Vallejo MD - Fellow Preoperative diagnosis: ?microscopic colitis diarrhea. surveillance serrated adenoma; ? pancreatic insufficiency Postoperative diagnosis: * No post-op diagnosis entered * Procedure(s) (LRB): UPPER EUS- ENDOSCOPIC ULTRASOUND (N/A) EGD WITH BIOPSY (WRVU 2.49) (N/A) COLONOSCOPY, DIAGNOSTIC (N/A) Anesthesia: MAC Full procedure note is documented under the Procedure section of eDH. documented in this encounter Plan of Treatment Upcoming Encounters Date Type Specialty Care Team Description 02/08/2022 TH Visit (TeleHealth) General Surgery Rylie Rea, [employer] [facility] [place] [address] Keiry Chatterjee, RD [facility] [place] [address] documented as of this encounter Procedures Procedure Name Priority Date/Time Associated Diagnosis Comme nts SPECIMEN TO Routine 12/05/2017 7:33 Results for this PATHOLOGY PM EDT procedure are i n the results section. SPECIMEN TO Routine 12/05/2017 7:33 Results for this PATHOLOGY PM EDT procedure are i n the results section. SPECIMEN TO Routine 12/05/2017 7:33 Results for this PATHOLOGY PM EDT procedure are i n the results section. SURGICAL PATHOLOGY Routine 12/05/2017 6:38 Result s for this REPORT PM EDT procedure are i n the results section. UPPER GI ENDOSCOPY Routine 12/05/2017 6:29 Result s for this PM EDT procedure are i n the results section. UPPER Routine 12/05/2017 6:28 Results for this EUS-ENDOSCOPIC PM EDT procedure are in ULTRASOUND the results section. COLONOSCOPY Routine 12/05/2017 6:27 Results for this PM EDT procedure are i n the results section. COLONOSCOPY, 12/05/2017 6:25 Gastroesophageal reflux DIAGNOSTIC PM EDT disease, esophagitis presence not spe cified Dysphagia, unspecified type Diarrhea, unspecified type EGD WITH BIOPSY 12/05/2017 6:25 Gastroesophageal reflu x (WRVU 2.49) PM EDT disease, esophagitis presence not spe cified Dysphagia, unspecified type Diarrhea, unspecified type UPPER EUS- 12/05/2017 6:25 Gastroesophageal reflux ENDOSCOPIC PM EDT disease, esophagitis ULTRASOUND presence not spe cified Dysphagia, unspecified type Diarrhea, unspecified type documented in this encounter Results Specimen to Pathology (12/05/2017 7:33 PM EDT) Specimen Anatomical Collection Method Collection Time Receive d Time (Source) Location / / Volume Laterality AP Specimen 12/05/2017 7:33 PM 8 7:53 EDT PM EDT Narrative [facility] [place] - 12/05/2017 7:53 PM EDT Specimen requisition ordered. ??Separate Pathology report to follow Resulting Agency Comment Spec In Lab Luther Narayan MD PATHOLOGY/CYTOLOGY ORDERABLE S Performing Organization Address [facility] [place] [address] Specimen to Pathology (12/05/2017 7:33 PM EDT) Specimen Anatomical Collection Method Collection Time Receive d Time (Source) Location / / Volume Laterality AP Specimen 12/05/2017 7:33 PM 8 7:53 EDT PM EDT Narrative [facility] [place] - 12/05/2017 7:53 PM EDT Specimen requisition ordered. ??Separate Pathology report to follow Resulting Agency Comment Spec In Lab Luther Narayan MD PATHOLOGY/CYTOLOGY ORDERABLE S Performing Organization Address [facility]/[place] [address] Specimen to Pathology (12/05/2017 7:33 PM EDT) Specimen Anatomical Collection Method Collection Time Receive d Time (Source) Location / / Volume Laterality AP Specimen 12/05/2017 7:33 PM 8 7:53 EDT PM EDT Narrative [facility] [place] - 12/05/2017 7:53 PM EDT Specimen requisition ordered. ??Separate Pathology report to follow Resulting Agency Comment Spec In Lab Luther Narayan MD PATHOLOGY/CYTOLOGY ORDERABLE S Performing Organization Address City/[facility] [place] [address] Surgical Pathology Report (12/05/2017 6:38 PM EDT) Component Value Ref Test Analysis Performed At [facility] Method Time Signature Surgical [id number] ? Location: 4T; EA06; [facility] Pathology KLEMME Report The signing pathologist has (i) examined the relevant preparation(s) for the MEMORIAL specimen(s) and (ii) rendered or confirmed the diagnosis(es) . HOSPITAL LABORATORY . ?Surgic al Pathology DIAGNOSIS A - Duodenum, ??biopsy: - ??Duodenal mucosa, negative for diagnostic abnormality ??. B - Esophagus, ??biopsy: - Squamous mucosa negative for diagnostic abnormality. C - Colon, random, ??biopsy: - Colonic mucosa, negative for diagnostic abnormality. CR-PX Electronically signed by: ??Mookie Rodriguez MD Verified: ??12/11/2017 ?Pathologist Performed at: ??-[facility] [place] Dept. of Pathology, [place], [place] CLINICAL INFORMATION Specimen Submitted: A - Duodenal biopsies r/o villous atrophy B - Esophageal biopsies dysphagia r/o EOE C - Random colon biopsies r/o microscopic colitis Clinical History and Diagnosis: Diarrhea SPECIMEN PROCESSING A - Labeled/Fixative: Duodenal biopsies rule out villous a trophy, formalin. Quantity/Size: Three, ranging from 0.3-0.4 cm. Tissue Description: Soft, thomas-pink tissue. Sections/Processing: (T1) B - Labeled/Fixative: Esophageal biopsies, dysphagia r ule out EoE, formalin. Quantity/Size: Four, ranging from 0.4-0.6 cm. Tissue Description: Soft, thomas-white to translucent and friab le tissue. Sections/Processing: (T1) C - Labeled/Fixative: Random colon biopsies rule out microscopic colitis, formalin. Quantity/Size: Multiple, ranging from 0.2-0.4 cm. Tissue Description: Soft, thomas-white and thomas-pink tissue. Sections/Processing: (T2) ??apb Specimen (Source) Anatomical Collection Method Collection Time Re ceived Time Location / / Volume Laterality 12/05/2017 6:38 PM EDT Luther Narayan MD PATHOLOGY/CYTOLOGY ORDERABLE S Performing Organization Address City/State/[place] [address] UPPER GI ENDOSCOPY (12/05/2017 6:29 PM EDT) Component Value Ref Test Analysis Performed At [facility] Method Time Signature UPPER GI [facility] ENDOSCOPY Endoscopy Procedure Date: 12/05/2017 6:29 PM ? Patient Name: Monisha Das ? N: [id number] ? Date of : 1970 ? Age: 46 ? Order #: [id number] ? Instrument Name: [id number] ? Procedure: ? Upper GI endoscopy Indications: ? Dysphagia, unexplained diarrhea Providers: ? Luther Narayan MD, Wilfredo Vallejo, ? Briana Henson, Fredy Aquino MD: ?Osiris Garcia, Essie man Medicines: ? Propofol per Anesthesia Complications: ? No immediate complications. Procedure: ? Pre-Anesthesia Assessment: ? - Prior to the procedure, a H istory ? and Physical was performed, a nd ? patient medications, allergie s and ? sensitivities were reviewed. The ? patient's tolerance of previo us ? anesthesia was reviewed. ? - The risks and benefits of t he ? procedure and the sedation op tions ? and risks were discussed with the ? patient. All questions were a nswered ? and informed consent was obta ined. ? - ASA Grade Assessment: II - A ? patient with mild systemic di sease. ? - Using IV propofol under the ? supervision of an anesthesiol ogist ? was determined to be medicall y ? necessary for this procedure based on ? complex procedure (ERCP, EUS) . ? The procedure, indications, b enefits, ? risks and alternatives were e xplained ? to the patient. Specifically ? discussed were potential ? complications including, but not ? limited to, bleeding, perfora tion, ? infection, missing a cancer, and ? adverse medication reactions. The ? Endoscope was introduced thro ugh the ? mouth, and advanced to the se cond ? part of duodenum. The patient ? tolerated the procedure well. The ? patient tolerated the procedu re well. ? Findings: ? The esophagus was normal. Normal Z-line. ? Biopsies were taken with a cold forceps in the middle ? third of the esophagus for histology. ? A 2 cm hiatal hernia was present. ? There were a few small fundic gland polyps in the ? fundus and body of the stomach. ? Otherwise normal stomach including retroflex view of ? cardia and fundus. ? The examined duodenum was normal. ? Biopsies for histology were taken with a cold forceps ? in the second portion of the duodenum for evaluation ? of celiac disease. ? Moderate Sedation: ? Not applicable - See Anesthesia documentation Impression: ?- Normal esophagus. ? - Biopsies taken to r/o EOE. ? - Small hiatal hernia. ? - Benign fundic gland polyps. ? - Normal examined duodenum. ? - Biopsies were taken with a cold ? forceps for evaluation of karly iac ? disease. Recommendation: ?- Await pathology results. ? - The attending physician agustin tomas ? above was present for the ent mathew ? procedure. ? Attending Participation: ? I was present and participated during the entire ? procedure, including non-pryor portions. ? Luther Narayan MD 12/05/2017 7:04:37 PM This report has been signed electronically. Number of Addenda: 0 Note Initiated On: 12/05/2017 6:29 PM Specimen (Source) Anatomical Collection Method Collection Time Re ceived Time Location / / Volume Laterality 12/05/2017 6:29 PM EDT Osiris Garcia [employer] GENERAL SURGICAL ORDERABLES Performing Organization Address City/State/ZIP Code Phon e Number [facility] UPPER EUS-ENDOSCOPIC ULTRASOUND (12/05/2017 6:28 PM EDT) Component Value Ref Test Analysis Performed Pathologis t Range Method Time At [facility] UPPER [facility] ENDOSCOPIC Endoscopy ULTRASOUND _ Procedure Date: 12/05/2017 6:28 PM ? Patient Name: Monisha Das ? Date of : 1970 ? Age: 46 ? Order #: [id number] ? Instrument Name: [id number] ? Procedure: ? Upper EUS Indications: ? diarrhea, exclude neuroendocrine tu mor Providers: ? Luther Narayan MD, Wilfredo Vallejo, ? Briana Henson, Fredy Gonzales Referring : ?OsirisEssie Desouza Medicines: ? Propofol per Anesthesia Complications: ? No immediate complications. Procedure: ? Pre-Anesthesia Assessment: ? - Prior to the procedure, a H istory ? and Physical was performed, a nd ? patient medications, allergie s and ? sensitivities were reviewed. The ? patient's tolerance of previo us ? anesthesia was reviewed. ? - The risks and benefits of t he ? procedure and the sedation op tions ? and risks were discussed with the ? patient. All questions were a nswered ? and informed consent was obta ined. ? - ASA Grade Assessment: II - A ? patient with mild systemic di sease. ? - Using IV propofol under the ? supervision of an anesthesiol ogist ? was determined to be medicall y ? necessary for this procedure based on ? complex procedure (ERCP, EUS) . ? The procedure, indications, b enefits, ? risks and alternatives were e xplained ? to the patient. Specifically ? discussed were potential ? complications including, but not ? limited to, bleeding, perfora tion, ? infection, missing a cancer, and ? adverse medication reactions. The ? Endosonoscope was introduced through ? the mouth, and advanced to th e second ? part of duodenum. The patient ? tolerated the procedure well. ? Findings: ? Endoscopic exam: ? -see EGD report. ? Endosonographic Finding : ? There was no sign of significant endosonographic ? abnormality in the entire pancreas. The pancreatic ? duct measured up to 2 mm in diameter. ? There was no sign of significant endosonographic ? abnormality in the common bile duct. The maximum ? diameter of the duct was 4 mm. ? Two small 3 mm hyperechoic polyps were identified ? endosonographically in the gallbladder body. ? Normal visualized portion of liver (limited exam). ? One benign-appearing 10 mm lymph node was visualized ? in the los hepatis region. The node was triangular, ? isoechoic and had well defined margins. ? Moderate Sedation: ? Not applicable - See Anesthesia documentation Impression: ?- Normal pancreas-no evidence for ? neuroendocrine tumor. ? - Small benign gallbladder po lyps. ? - Otherwise normal exam. Recommendation: ?- Observe patient's clinical course. ? - The attending physician agustin tomas ? above was present for the ent mathew ? procedure. ? Attending Participation: ? I was present and participated during the entire ? procedure, including non-pryor portions. ? Luther Narayan MD 12/05/2017 6:59:40 PM This report has been signed electronically. Number of Addenda: 0 Note Initiated On: 12/05/2017 6:28 PM Specimen (Source) Anatomical Collection Method Collection Time Re ceived Time Location / / Volume Laterality 12/05/2017 6:28 PM EDT Osiris Garcia APRN GENERAL SURGICAL ORDERABLES Performing Organization Address City/State/ZIP Code Phon e Number [facility] COLONOSCOPY (12/05/2017 6:27 PM EDT) Component Value Ref Test Analysis Performed At [facility] Method Time Signature COLONOSCOPY [facility] Endoscopy Procedure Date: 12/05/2017 6:27 PM ? Patient Name: Monisha Das ? Date of : 1970 ? Age: 46 ? Order #: [id number] ? Instrument Name: [id number] ? Procedure: ? Colonoscopy Indications: ? Chronic diarrhea Providers: ? Luther Narayan MD, Wilfredo Vallejo, ? Briana Henson, Fredy Gonzales Referring : ?Osiris Garcia Medicines: ? Monitored Anesthesia Care Complications: ? No immediate complications. Procedure: ? Pre-Anesthesia Assessment: ? - Prior to the procedure, a H istory ? and Physical was performed, a nd ? patient medications, allergie s and ? sensitivities were reviewed. The ? patient's tolerance of previo us ? anesthesia was reviewed. ? - The risks and benefits of t he ? procedure and the sedation op tions ? and risks were discussed with the ? patient. All questions were a nswered ? and informed consent was obta ined. ? - Patient identification and proposed ? procedure were verified prior to the ? procedure by the physician, mihai mobley ? nurse, the home health scheduler and e ? wellfield technician. The procedure was ? verified in the pre-procedure area in ? the procedure room. ? - Pre-procedure physical exam ination ? revealed no contraindications to ? sedation. ? - ASA Grade Assessment: III - A ? patient with severe systemic disease. ? The procedure, indications, b enefits, ? risks and alternatives were e xplained ? to the patient. Specifically ? discussed were potential ? complications including, but not ? limited to, bleeding, perfora tion, ? infection, missing a cancer, and ? adverse medication reactions. The ? patient was placed in the lef t ? lateral decubitus position, a nd a ? digital rectal exam was perfo rmed. ? The Colonoscope was inserted in the ? anus and under direct visuali zation, ? advanced to the terminal ileu m. ? Careful inspection was made a s the ? colonoscope was withdrawn. Th e ? colonoscopy was performed wit debora ? difficulty. The patient leticia ated the ? procedure well. The quality o f the ? bowel preparation was evaluat ed using ? the BBPS ([place] Bowel Prepar ation ? Scale) with scores of: Right Colon = ? 2 (minor amount of residual s taining, ? small fragments of stool and/ or ? opaque liquid, but mucosa see n doni), ? Transverse Colon = 2 (minor a mount of ? residual staining, small frag ments of ? stool and/or opaque liquid, b ut ? mucosa seen well) and Left Co cristina = 2 ? (minor amount of residual sta ining, ? small fragments of stool and/ or ? opaque liquid, but mucosa see n doni). ? The total BBPS score equals 6 . The ? quality of the bowel preparat ion was ? good. ? Findings: ? The terminal ileum appeared normal. ? Normal mucosa was found in the entire colon. Biopsies ? for histology were taken with a cold forceps from the ? entire colon for evaluation of microscopic colitis. ? Verification of patient identification for the ? specimen was done by the physician, nurse and ? wellfield technician using the patient's name, date and ? medical record number. Estimated blood loss: none. ? No additional abnormalities were found on ? retroflexion. ? The perianal and digital rectal examinations were ? normal. ? Moderate Sedation: ? Not applicable - See Anesthesia documentation Impression: ?- The examined portion of the ileu m ? was normal. ? - Normal mucosa in the entire ? examined colon. Biopsied. Recommendation: ?- Discharge patient to home (with ? escort). ? - Resume previous diet. ? - Continue present medication s. ? - Await pathology results. ? - Return to referring physici an as ? previously scheduled. ? Procedure Code(s): ?? --- Professional --- ? 72456, Colonoscopy, flexible; with ? biopsy, single or multiple CPT copyright 2017 [employer]. All rights reserved. The codes documented in this report are preliminary and upon detacher review may be revised to meet current compliance requirements. Attending Participation: ? I was present and participated during the entire ? procedure, including non-pryor portions. ? Luther Narayan MD 12/05/2017 7:34:12 PM This report has been signed electronically. Number of Addenda: 0 Note Initiated On: 12/05/2017 6:27 PM Specimen (Source) Anatomical Collection Method Collection Time Re ceived Time Location / / Volume Laterality 12/05/2017 6:27 PM EDT Osiris Garcia APRN GENERAL SURGICAL ORDERABLES Performing Organization Address City/State/ZIP Code Phon e Number [place] documented in this encounter Visit Diagnoses Diagnosis Gastroesophageal reflux disease, esophag itis presence not specified Dysphagia, unspecified type Diarrhea, unspecified type documented in this encounter Administered Medications Inactive Administered Medications - up to 3 most recent administrations Medication Order MAR Action Action Date Dose Rate Site lactated Ringers infusion New Bag 12/05/2017 7:03 PM EDT 100 mL/hr, Intravenous, CONTINUOUS, Starting on Sun12/05/17 at 1600, Until Sun12/05/17 at 2007, Endoscopy (Day of Procedure) New Bag 12/05/2017 3:50 PM EDT 100 mL/hr 100 mL/hr ondansetron (ZOFRAN) injection 4 mg Given 12/05/2017 7:45 PM EDT 4 mg 4 mg, Intravenous, ONCE, 1 dose, On Sun12/05/17 at 2014, July repeat X 1 in at least 15 mtes, Endoscopy (Recovery-Hospital Unit), Routine documented in this encounter Active and Recently Administered Medications Times are shown in EDT. Scheduled Medication Order 12/03/2017 12/04/2017 12/05/2017 ondansetron (ZOFRAN) injection 4 mg (COMPLETED) 1944 (Given - Provider: Madiha Negrete, LORELEI)2014 (Due) 4 mg, Intravenous, ONCE, 1 dose, 12/05 at July repeat X 1 in at least 15 mtes, Endo (Recovery-Hospital Unit), Routine Continuous Medication Order 12/03/2017 12/04/2017 12/05/2017 lactated Ringers infusion (CANCELED) 1550 (New Bag - Provider: Nola Fink RN)1903 (New Bag - Provider: Chandni Negrete CRNA) 100 mL/hr, at 100 mL/hr, Intravenous, CO NTINUOUS, Starting Sun12/05/17 at 1600, Until Sun12/05/17 at 2007, Endo (Day of Procedure) documented in this encounter Care Teams Supervisor Rides Relationship Specialty Start Date End Date Osiris Garcia APRN PCP - General Internal Medicine 06/02/16 04/04/[address] [place] [address] documented as of this encounter
--- OUTSIDE RECORDS SUMMARY | 2022-02-03 02:30 | XMS_ITS | Encounter Summary ---
:1970 Author Organization [facility] [place] [address] Care Team Providers Name Role Phone Sushil Loya MD Primary Care Provider [phone] Reason for Visit Consultation (Routine) - Closed Specialty Diagnoses / Procedures Referred By Contact Refer red To Contact Allergy Diagnoses Dermatitis, unspecified Tan Owen MD [facility] [address] [place] [address] [place] [address] [place] [address] Referral ID Status Reason Start Date Expiration Date Visits V isits Requested Authorized [id number] Closed Consult, 06/11/2015 06/10/2016 1 1 [facility] Encounter Details Date Type Department Care Team Description 10/21/2015 Office Visit Allergy at [facility] Irma Schroeder MD Weight gain; [facility]; [facility] [address]; [place] [address] ALLERGY AND PATIENT NOT SEEN [phone] IMMUNOLOGY [place] [address] (Wo rk) Social History Tobacco Use Types Packs/Day Years Used Date Never Smoker Sex Assigned at Date Recorded Not on file documented as of this encounter Progress Notes Irma Schroeder MD - 10/26/2015 12:00 AM EDT This patient was not seen in this encounter. documented in this encounter Plan of Treatment Upcoming Encounters Date Type Specialty Care Team Description 02/08/2022 TH Visit (TeleHealth) General Surgery Rylie Rea, SURGERY TECHNICIAN [facility] [address] Keiry Chatterjee, RD [facility] [place] [address] documented as of this encounter Procedures Procedure Name Priority Date/Time Associated Diagnosis Comme nts CORTISOL, SALIVA Routine 09/16/2015 11:03 PM Weight gain Results for this EDT Hirsutism procedure are in [place] the results section. CORTISOL, SALIVA Routine 09/15/2015 11:03 PM Weight gain Results for this EDT Hirsutism procedure are in [place] the results section. documented in this encounter Results Cortisol, saliva (09/16/2015 11:03 PM EDT) athologist Signature Jayjay Saliva 97 <100 ng/dL [facility] LABORATORY Comment: REVISED RESULTS Due to a software system error, report r evised to include the reference range. The result value an d associated flagging remain unchanged. PREVIOUSLY REPORTED A S 97 (Reported 09/24/2015 15:10) Test Performed by: [facility] - [address] [address] Stave Log Cut Off Saw Operator: Jun Blair II, M.D., Ph.D. Test Performed by: [facility] - [address] [address] Stave Log Cut Off Saw Operator: Jun Blair II, M.D., Ph.D. Corrected from 97 ng/dL [NA] on 10/21/15 04:47 by Contributor_system, [place]. Specimen Anatomical Collection Method Collection Time Receive d Time (Source) Location / / Volume Laterality Specimen of 09/16/2015 11:03 09/20/2015 2:38 unknown material PM EDT PM EDT (specimen) Yarelis Guzman MD BODY FLUIDS AND STOOLS ORDER DAVIAN Performing Organization Address City/[facility]/ZIP [place] [address] Cortisol, saliva (09/15/2015 11:03 PM EDT) athologist Signature Jayjay Saliva <50 <100 ng/dL [facility] Midnight [facility] LABORATORY Comment: REVISED RESULTS Due to a software system error, report r evised to include the reference range. The result value an d associated flagging remain unchanged. PREVIOUSLY REPORTED A S <50 (Reported 09/24/2015 15:11) Test Performed by: [facility] [place] [address] St[employer] Log Cut Off Saw Operator: Jun Blair II, M.D., Ph.D. Test Performed by: [facility] [place] [address] St[employer] Cut Off Saw Operator: Jun Blair II, M.D., Ph.D. Corrected from <50 ng/dL [NA] on 6 04:40 by Contributor_system, [place]. Specimen Anatomical Collection Method Collection Time Receive d Time (Source) Location / / Volume Laterality Specimen of 09/15/2015 11:03 09/20/2015 2:38 unknown material PM EDT PM EDT (specimen) Yarelis Guzman MD BODY FLUIDS AND STOOLS ORDER DAVIAN Performing Organization Address City/[facility]/ZIP [place] [address] documented in this encounter Visit Diagnoses Diagnosis Weight gain Abnormal weight gain Hirsutism [place] [facility] PATIENT NOT SEEN documented in this encounter Care Teams Satellite Manager Relationship Specialty Start Date End Date Sushil Loya MD PCP - General General Internal Medicine 09/13/15 06/01/[email or web address] [place] [address] documented as of this encounter
--- OUTSIDE RECORDS SUMMARY | 2022-02-03 02:30 | XMS_ITS | Encounter Summary ---
:1970 Author Organization [facility] [place] [address] Care Team Providers Name Role Phone Osiris Garcia Karen NUNEZ Primary Care Provider Encounter Details Date Type Department Care Team Description 04/12/2017 Notes Only Allergy at [facility] [place] [address] ALLERGY AND IMMUNOLOGY [phone] [place], [place] [address] (Wo rk) Social History Tobacco Use Types Packs/Day Years Used Date Never Smoker Smokeless Tobacco: Never Used Alcohol Use Standard Drinks/Week Comments No 0 (1 standard drink = 0.6 oz pure alcoho l) Sex Assigned at Date Recorded Not on file documented as of this encounter Progress Notes Irma Schroeder MD - 04/12/2017 4:29 PM EST Patient sent letter with the following message: I have reviewed your most recent lab tests. Your serum tryptase level and 24 hour urine n- methylhistamine and beta- prostaglandin levels were normal. Thus, it is unlikely that you have an underlying mast cell disorder ( allergy cell disorder) causing your symptoms. Your Celiac disease panel was negative. Your thyroid tests ( total T3, free T4 and TSH) were normal. Your potassium level was mildly lowat 3.4 mmol/L with a lower limit of normal of 3.5 mmol/L and your glucose was slightly elevated at 102 mg/dL with an upper limit of normal of 100mg/dL. These test results do not change the recommendations made during your last visit. Please continue toavoid foods that you do not tolerate. Please follow up with your primary care provider for management of your glucose and potassium levels and work with your health and wellness team for continued evaluation and management of your symptoms. Labs collected at [facility]. Serum tryptase level was 9.0 on 01/23/17.. 24 hour urine NMH was 107 and beta prostaglandin was 1438On 02/12/17. Labs sent to medical records for scanning. documented in this encounter Plan of Treatment Upcoming Encounters Date Type Specialty Care Team Description 02/08/2022 TH Visit (TeleHealth) General Surgery Rylie Rea APRN [facility] [place] [address] Keiry Chatterjee, SAM [facility] [place] [address] documented as of this encounter Visit Diagnoses Not on filedocumented in this encounter Care Teams [employer] Set Up Technician Relationship Specialty Start Date End Date Osiris Garcia APRN PCP - General Internal Medicine 06/02/16 04/04/[id number] [place] [address] documented as of this encounter
--- OUTSIDE RECORDS SUMMARY | 2022-02-03 02:30 | XMS_ITS | Encounter Summary ---
:1970 Author Organization [facility] [place] [address] Care Team Providers Name Role Phone Sushil Loya MD Primary Care Provider [phone] Encounter Details Date Type Department Care Team Description 10/20/2015 Telephone Endocrinology at [facility] C Estefania Cooper, [place] [address] Social History Tobacco Use Types Packs/Day Years Used Date Never Smoker Sex Assigned at Date Recorded Not on file documented as of this encounter Miscellaneous Notes Telephone Encounter - Yarelis Guzman MD - 10/20/2015 4:40 PM EDT Responded to pt via [employer] message (myD encounter dated 10/15/15) that her Octreoscan was negative. Telephone Encounter - Estefania Cooper RN - 10/20/2015 3:35 PM EDT Monisha calls in and left message that she is looking to get the results of her scan that was on Sunday. Message forwarded to Dr Guzman documented in this encounter Plan of Treatment Upcoming Encounters Date Type Specialty Care Team Description 02/08/2022 TH Visit (TeleHealth) General Surgery Rylie Rea, INVESTMENT REPRESENTATIVE [facility] [place] [address] [facility] [place] [address] documented as of this encounter Visit Diagnoses Not on filedocumented in this encounter Care Teams Hyperion Analyst Relationship Specialty Start Date End Date Sushil Loya MD PCP - General General Internal Medicine 09/13/15 06/01/[address] [place] [address] documented as of this encounter
--- OUTSIDE RECORDS SUMMARY | 2022-02-03 02:30 | XMS_ITS | Encounter Summary ---
:1970 Author Organization [place] [address] Care Team Providers Name Role Phone Huyen Ramon DO Primary Care Provider Reason for Visit Reason Comments Advice Only Consultation (Routine) - Closed Specialty Diagnoses / Procedures Referred By Contact Refer red To Contact Hematology and Diagnoses CHRONCI LEUKOCYTOSIS Huyen Ramon, [facility] 3k Oncology [address] [phone] Fax: Referral ID Status Reason Start Date Expiration Date Visits V isits Requested Authorized [id number] Closed Consult, 07/11/2018 07/11/2019 1 1 [facility] Encounter Details Date Type Department Care Team Description 07/29/2018 Office Visit Hematology and Manan Almanza MD [facility] HEMATOLOGY/[place] [address] Leukocytosis, Oncology at [facility] Malena George [facility] HEMATOLOGY/[place] [address] unspecified [facility] Yarelis Iglesias LOGISTICS TECH [facility] [place] [address] (Primary Dx) Drive [place] [phone] Social History Tobacco Use Types Packs/Day Years Used Date Never Smoker Smokeless Tobacco: Never Used Alcohol Use Standard Drinks/Week Comments No 0 (1 standard drink = 0.6 oz pure alcoho l) Sex Assigned at Date Recorded Not on file documented as of this encounter Last Filed Vital Signs Vital Sign Reading Time Taken Comments Blood Pressure 139/83 07/29/2018 10:23 AM EDT Pulse 68 07/29/2018 10:23 AM EDT Temperature 36.5 ??C (97.7 ??F) 07/29/2018 10:23 AM EDT Respiratory Rate 18 07/29/2018 10:23 AM EDT Oxygen Saturation 100% 07/29/2018 10:23 AM EDT Inhaled Oxygen Concentration - - Weight 111 kg (244 lb 12.8 oz) 07/29/2018 10:23 AM EDT Height 163.5 cm (5' 4.37) 07/29/2018 10:23 AM EDT Body Mass Index 41.54 07/29/2018 10:23 AM EDT documented in this encounter Progress Notes Zhang Almanza MD - 07/29/2018 10:15 AM EDT HEMATOLOGY/BMT CONSULTATION VISIT NOTE CHIEF COMPLAINT: Monisha Das is a 47 y.o. female referred by Huyen Ramon DO for evaluation of leukocytosis, h/o anemia, h/o restless leg syndrome. Data Review (From Huyen Ramon DO and XXX) Was given IV iron for restless legs in May 2018 and had reaction to infusion - went to ER and received dexamethasone 06/15/16 CBC - 9.5/13.6/400 2017 Evaluated by Irma Schroeder MD, [facility] Allergy for possible mast cell disorder - testing was negative for this diagnosis. 04/02/18 Creat - 1.01 05/30/18 CBC - 14.4/16.9/509 ANC - 8.67 ALC - 4.60 06/03/18 CBC - 13.37/13.7/390 ANC - 7.37 ALC - 4.75 06/24/18 CBC - 7.93/13.7/346 ESR - 13 TG - NEG RF - <8 Lyme titer - NEG 07/25/18 CBC - 10.99/14.1/352 ALC - 4,710 ANC -4,920 Medical Problems Anemia Depression GERD Thyroiditis Colonic polyps HTN IBS Medications MVI Imodium HCTZ Lisinopril Omeprazole Gabapentin Prochlorperazine Topiramate Venlafaxine Pramipexole Bupropion Epinephrine HISTORY OF PRESENT ILLNESS Monisha Das says that she has had mildly elevated blood counts for a few years. Her chief complaint is of episodic diarrhea. Has seen many specialists - was told she likely had carcinoid but all w/u has been negative. Also gets leg edema associated with her attacks which occur once a month. Has had multiple colonoscopies with negative findings including biopsies. ~8 bowels movements per day during attacks. During attacks tries to eat mostly starchy foods as this seems to help her sx resolve. Also uses imodium. Also gets chills but no fevers. Was in the ER last week for dehydration. Also gets occasional rashes and swelling around her eyes during attacks. Her heart races, she gets flushed and t hen she has diarrhea. Occasionally has noted swollen neck lymph nodes. No weight loss. Jean 5-8 lbs in a day during her attacks. Sx are worse in [place] where she visits with her parents - feels thismay be because she exercises more and drinks more ETOH there. 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 [employer] No one in her family has simialr sx F - has PMR M - FXI deficiency Brother has recurrent Herbert-Christos syndrome REVIEW OF SYSTEMS Constitutional --Energy level: decreased over the last two years --Pain:occ joint pains --Fevers/chills/sweats: No --Unexpected weight loss or gain: gain Eyes - No change in vision Ears, nose, throat - No change hearing, no oral or throat pain or thrush Cardiovascular --SOB: occ wheezing --NICOLAS: No --chest pain: No Respiratory --Cough: No --SOB, NICOLAS: as above Gastrointestinal --Appetite: good --Nausea/vomiting/diarrhea/constipation: as above Genitourinary --Dysuria or hematuria: No Musculoskeletal --Muscle pain or weakness: No --Joint pain or swelling: No Immune System --Recent infections: No Hematology/Lymph --Bruising/bleeding/melena: No --Enlarged nodes or other masses: has noted neck nodes on occasion Skin --Rashes or petechiae: No Other ROS: All negative PROBLEM LIST There is no problem list on file for this patient. MEDICATIONS Current Outpatient Medications on File Prior to Visit Medication Sig Dispense Refill ??? ondansetron (ZOFRAN) 4 mg Tablet Take 4 mg by mouth every 8 hours as needed for Nausea. ??? UNABLE TO FIND Med Name: elaine vitamin multivitamin and mineral ??? colestipol (COLESTID) 1 gram Tablet Take 1 tablet by mouth 2 times daily. 60 tablet 11 ??? gabapentin (NEURONTIN) 300 mg Capsule BID ??? Magnesium 200 mg Tablet Take by mouth daily. ??? omeprazole (PRILOSEC) 40 mg Capsule, Delayed Release(E.C.) Take 40 mg by mouth daily. ??? pramipexole (MIRAPEX) 0.25 mg Tablet Take 0.25 mg by mouth daily. ??? lisinopril (PRINIVIL;ZESTRIL) 20 mg Tablet Take 20 mg by mouth 2 times daily. Reported on 06/15/2016 ??? fish oil-omega-3 fatty acids 1,000 mg Capsule Take 2 g by mouth daily. Reported on 06/15/2016 ??? buPROPion (WELLBUTRIN XL) 300 mg Tablet Sustained Release 24 hr Take 300 mg by mouth every morning. ??? topiramate (TOPAMAX) 100 mg Tablet Take 150 mg by mouth daily. ??? hydrOXYzine (ATARAX) 25 mg Tablet Take 25 mg by mouth every 8 hours as needed for Itching. ??? triamcinolone (ARISTOCORT) 0.5 % Cream Apply topically as needed. ??? hydrochlorothiazide (HYDRODIURIL) 25 mg tablet No current facility-administered medications on file prior to visit. ALLERGIES/ADR Allergies Allergen Reactions ??? Atropine CIS - redness and bodily swelling ??? Spironolactone Rash SOCIAL HISTORY History Substance Use Topics ??? Smoking status: Not on file ??? Smokeless tobacco: Not on file ??? Alcohol Use: Not on file FAMILY HISTORY Family History Problem Relation Age of Onset ??? Asthma Daughter PHYSICAL EXAM VITAL SIGNS: Blood pressure 139/83, pulse 68, temperature 36.5 ??C (97.7 ??F), temperature source Temporal, resp. rate 18, height 163.5 cm (5' 4.37), weight 111 kg (244 lb 12.8 oz), SpO2 100 %. GENERAL: Monisha Das is a well-appearing 47 y.o. female in no acute distress. She is accompanied by Jayne, her partner, today. ENT: Sinuses non-tender. Oropharynx clear. No masses. No thrush. ENDOCRINE: No thyromegaly palpated. CARDIOVASCULAR: Heart with regular rate and rhythm without S3,S4 or murmurs. No cyanosis or peripheral edema. PULMONARY: Lungs are clear to auscultation without rales, rhonchi or wheezing. GASTROINTESTINAL: Abdomen soft and non-tender without palpable masses or hepatosplenomegaly. MUSCULOSKELETAL: Neck supple with full ROM. No spine or CVA tenderness. SKIN: No rashes, bruises or petechiae. LYMPH: No abnormal lymphadenopathy. NEUROLOGICAL: Alert and oriented to person, place and time. LABORATORY Recent Results (from the past 72 hour(s)) Lactate Dehydrogenase Result Value Ref Range LDH 215 110 - 220 unit/L Free Light Chains, Serum Result Value Ref Range Wylie Free Light Chains 1.50 0.81 - 2.98 mg/dL Lambda Free Light Chains 1.68 0.86 - 1.99 mg/dL Wylie/Lambda Free Light Chain Ratio 0.8929 0.5000 - 2.4300 Immunoglobulins, Quantitative Result Value Ref Range IgG 908 700 - 1,600 mg/dL IgA 173 70 - 400 mg/dL IgM 231 (H) 40 - 230 mg/dL Protein Electrophoresis, serum Result Value Ref Range Total Prot Elec 7.1 6.1 - 8.0 gm/dL Immunophenotyping Flow Cytometry Result Value Ref Range Immunophenotyping Flow See Comment Sedimentation rate Result Value Ref Range Sed Rate 11 0 - 20 mm/hr CRP, acute inflammation Result Value Ref Range CRP 4.0 <=4.9 mg/L Ferritin Result Value Ref Range Ferritin 151 (H) 15 - 150 ng/mL Iron and TIBC Result Value Ref Range Iron 61 30 - 150 mcg/dL TIBC 241 (L) 250 - 450 mcg/dL Iron Saturation 25 20 - 50 % Hemogram Result Value Ref Range WBC 7.8 4.0 - 9.5 x10(3)/mcL RBC 4.65 4.00 - 5.21 x10(6)/mcL Hemoglobin 13.2 11.7 - 15.5 gm/dL Hematocrit 39.0 35.7 - 45.8 % MCV 83.9 82.6 - 94.4 fL MCH 28.4 27.1 - 32.0 pg MCHC 33.8 31.7 - 35.0 gm/dL Platelets 353 145 - 357 x10(3)/mcL RDWSD 40.5 37.0 - 46.0 fL RDWCV 13.2 11.5 - 14.1 % MPV 9.6 7.6 - 12.9 fL nRBC % Auto 0.0 % nRBC Abs Auto 0.000 0.000 - 0.000 x10(3)/mcL Differential, Automated Result Value Ref Range Neutrophils % 50.5 % Neutr Abs (ANC) 3.96 1.70 - 6.10 x10(3)/mcL Lymphocytes % 40.1 % Lymphocytes Abs 3.2 0.9 - 3.2 x10(3)/mcL Monocytes % 5.2 % Monocyte Abs 0.4 0.3 - 0.9 x10(3)/mcL Eosinophils % 3.6 % Eosinophils Abs 0.3 0.0 - 0.4 x10(3)/mcL Basophils % 0.5 % Basophils Abs 0.0 0.0 - 0.1 x10(3)/mcL Immature Gran % 0.10 % Alfreda Gran Abs 0.01 0.00 - 0.04 x10(3)/mcL Flow Cytometry Report Result Value Ref Range Flow Cytometry Report [id number] Location: The signing pathologist has (i) examined the relevant preparation(s) for the specimen(s) and (ii) rendered or confirmed the diagnosis(es). . Flow Cytometry DIAGNOSIS Normal immunophenotyping results. No monotypic B-cell population or phenotypically abnormal T-cell population or increase in blasts is detected. Electronically signed by: Aron Betancur MD Verified: 07/29/2018 Hematopathologist Performed at: -[facility] Dept. of Pathology, [place], [place] DISCUSSION Blasts based on CD45 expression and orthogonal light scatter, are not increased. The T-lymphocytes, CD56+ NK cells and B- lymphocytes comprise approx 82%, 6%, 12% of the gated population, respectively. The CD19 positive B-cells have a polytypic expression of surface immunoglobulin light chain (Wylie:Lambda ratio at 1.3). The T-cells are an admixture of CD4+ and CD8+ T lymphocytes (ratio of 2.4). No loss or atypical intensity distributions are seen for any quintana T antigen (CD2, 3, 4+8, 5, 7). There is no increase in VF46-hwqxejjs/CD3-neg NK cells. Flow analysis is an ancillary study. A definite diagnosis requires correlation with the morphologic features of this process and if necessary, correlation with other ancillary studies like immunohistochemistry, enzyme cytochemistry and/or cyto/ molecular genetics. This test was developed and its performance characteristics determined by the Clinical Flow Cytometry Laboratory at [facility]. It has not been cleared or approved by the U.S. Food and Drug Administration. The FDA has determined that such clearance or approval is not necessary. This test is used for clinical purposes. It should not be regarded as investigational or for research. This laboratory is certified under the Clinical Laboratory Improvement Act of 1988 (CLIA) as qualified to perfor m high complexity clinical laboratory testing. SPECIMEN PROCESSING [id number] Cells for immunophenotypic analysis were derived from blood. CD45 vs side scatter gating was utilized to identify a lymphoid analysis region that comprises approximately 36-37% of all cells. The following markers were assessed: CD2, CD3, CD4, CD5, CD7, CD8, CD10, CD19, CD45, CD56, kappa light chain, and lambda light chain. CLINICAL INFORMATION lymphocytosis Results for MONISHA DAS ( ) as of 08/01/2018 08:47 Ref. Range 07/29/2018 11:09 Total Prot Elec Latest Ref Range: 6.1 - 8.0 gm/dL 7.1 Albumin Elect Latest Ref Range: 3.60 - 6.00 gm/dL 4.65 Alpha1-Globulin Latest Ref Range: 0.10 - 0.30 gm/dL 0.19 Alpha2-Globulin Latest Ref Range: 0.40 - 0.90 gm/dL 0.72 Beta Globulin Latest Ref Range: 0.50 - 1.00 gm/dL 0.63 Gamma Globulin Latest Ref Range: 0.50 - 1.30 gm/dL 0.90 M1 Band Latest Ref Range: None Detected None Detected Wylie Free Light Chains Latest Ref Range: 0.81 - 2.98 mg/dL 1.50 Lambda Free Light Chains Latest Ref Range: 0.86 - 1.99 mg/dL 1.68 Wylie/Lambda Free Light Chain Ratio Latest Ref Range: 0.5000 - 2.4300 0.8929 RADIOLOGY - None ASSESSMENT & PLANS 1. Leukocytosis - from the labs that were sent us, Monisha has had mild elevations in her total WBC due to elevations in her lymphocytes and granulocytes. However, her most recent outside labs from 07/25and her CBC from today, show her WBC and other counts to all be normal. Because of her severe symptoms and difficult to diagnose underlying cause and her h/o elevated lymphocyte counts, we will performtesting to look for signs of a lymphoproliferative disorder. These included peripheral blood flow cytometry, SPEP and serum free light chain levels and all were normal. Recommendation - At this point I think it is highly unlikely that Monisha has a hematologic cause forher recurrent symptoms and no further hematology evaluation is recommended. Although she has been evaluated by Allergy for mastocytosis and this was negative, I would think of checking a tryptase levelduring one of her attacks. 2. Counseling - I called Monisha and left a message that all of her testing was normal and that I didnot think she had any hematologic disorder. I asked her to call me back at her convenience if she had any questions. Zhang Almanza MD Division of Hematology and Blood & Marrow Transplant [facility] documented in this encounter Plan of Treatment Upcoming Encounters Date Type Specialty Care Team Description 02/08/2022 TH Visit (TeleHealth) General Surgery Rylie Rea, LOGISTICS TECH [facility] [place] [address] Keiry Chatterjee, RD [facility] [place] [address] documented as of this encounter Results Lactate Dehydrogenase (07/29/2018 11:09 AM EDT) athologist Signature LDH 215 110 - [address] [facility] unit/L [facility] Specimen Anatomical Collection Method Collection Time Receive d Time (Source) Location / / Volume Laterality Blood specimen 07/29/2018 11:09 9 (specimen) AM EDT 11:40 AM EDT Resulting Agency Comment Spec In Lab Zhang Almanza MD CHEMISTRY ORDERABLES Performing Organization Address City/[facility] Phon e Number [address] Free Light Chains, Serum (07/29/2018 11:09 AM EDT) athologist Signature Wylie Free 1.50 0.81 - [facility] Light Chains 2.98 mg/dL [facility] Lambda Free 1.68 0.86 - [facility] Light Chains 1.99 mg/dL [facility] Wylie/Lambda 0.8929 0.5000 - [facility] Free Light 2.4300 [facility] LABORATORY Comment: Please be advised that following a multi -institution study the reference interval for Serum Free Light Chains was updated April 13, 2017. Specimen Anatomical Collection Method Collection Time Receive d Time (Source) Location / / Volume Laterality Blood specimen 07/29/2018 11:09 9 (specimen) AM EDT 11:40 AM EDT Resulting Agency Comment Spec In Lab Zhang Almanza MD CHEMISTRY ORDERABLES Performing Organization Address [facility] Phon e Number [address] (ABNORMAL) Immunoglobulins, Quantitative (07/29/2018 11:09 AM EDT) athologist Signature IgG 908 700 - 1,[address] [facility] mg/dL [facility] Comment: Pediatric Reference Intervals obtained f rom the Caliper Reference Interval project. http://www.sickkids.ca/caliperp roject/index.html IgA 173 70 - 400 mg/dL [facility] IgM 231 (H) 40 - 230 mg/dL [facility] Specimen Anatomical Collection Method Collection Time Receive d Time (Source) Location / / Volume Laterality Blood specimen 07/29/2018 11:09 9 (specimen) AM EDT 11:40 AM EDT Resulting Agency Comment Spec In Lab Zhang Almanza MD CHEMISTRY ORDERABLES Performing Organization Address City/[facility]/ZIP Code Phon e Number [address] Protein Electrophoresis, serum (07/29/2018 11:09 AM EDT) [facility] Method Time Signature Total Prot 7.1 6.1 - 8.0 [facility] Elec gm/dL [facility] Albumin Elect 4.65 3.60 - 6.00 [facility] gm/dL [facility] Alpha1-Globul 0.19 0.10 - 0.30 [facility] in gm/dL [facility] Alpha2-Globul 0.72 0.40 - 0.90 [facility] in gm/dL [facility] Beta Globulin 0.63 0.50 - 1.00 [facility] gm/dL [facility] Gamma 0.90 0.50 - 1.30 [facility] Globulin gm/dL [facility] M1 Band None None ROSETTE Detected Detected [facility] Specimen Anatomical Collection Method Collection Time Receive d Time (Source) Location / / Volume Laterality Blood specimen 07/29/2018 11:09 9 (specimen) AM EDT 11:40 AM EDT Resulting Agency Comment Spec In Lab Zhang Almanza MD CHEMISTRY ORDERABLES Performing Organization Address City/[facility]/ZIP Code Phon e Number [address] Immunophenotyping Flow Cytometry (07/29/2018 11:09 AM EDT) Component Value Ref Test Analysis Performed At [facility] Method Time Signature Immunophenotyping See ROSETTE Flow Comment [facility] Comment: When completed by the Pathologist, the F low Cytometry Report ([id number]) will display under the Pathology Result s section within [facility]. Specimen Anatomical Collection Method Collection Time Receive d Time (Source) Location / / Volume Laterality Specimen of 07/29/2018 11:09 07/29/2018 unknown material AM EDT 11:40 AM ED T (specimen) Resulting Agency Comment Spec In Lab Zhang Almanza MD HEMATOLOGY ORDERABLES Performing Organization Address City/[facility]/ZIP Code Phon e Number [address] Sedimentation rate (07/29/2018 11:09 AM EDT) P athologist Signature Sed Rate 11 0 - [address] [facility] mm/hr [facility] Specimen Anatomical Collection Method Collection Time Receive d Time (Source) Location / / Volume Laterality Blood specimen 07/29/2018 11:09 9 (specimen) AM EDT 11:40 AM EDT Resulting Agency Comment Spec In Lab Zhang Almanza MD HEMATOLOGY ORDERABLES Performing Organization Address City/[facility]/[place] [address] CRP, acute inflammation (07/29/2018 11:09 AM EDT) P athologist Signature CRP 4.0 <=4.9 mg/L [facility] Specimen Anatomical Collection Method Collection Time Receive d Time (Source) Location / / Volume Laterality Blood specimen 07/29/2018 11:09 9 (specimen) AM EDT 11:40 AM EDT Resulting Agency Comment Spec In Lab Zhang Almanza MD CHEMISTRY ORDERABLES Performing Organization Address City/[facility]/ZIP [facility] [place] [address] (ABNORMAL) Iron and TIBC (07/29/2018 11:09 AM EDT) Analysis Performed At Patho logist Time Signature Iron 61 30 - 150 [facility] mcg/dL [facility] TIBC 241 (L) 250 - 450 [facility] m[facility]/dL [facility] Iron Saturation 25 20 - 50 % [facility] Specimen Anatomical Collection Method Collection Time Receive d Time (Source) Location / / Volume Laterality Blood specimen 07/29/2018 11:09 9 (specimen) AM EDT 11:40 AM EDT Resulting Agency Comment Spec In Lab Zhang Almanza MD CHEMISTRY ORDERABLES Performing Organization Address City/State/ZIP Code Phon e Number [address] (ABNORMAL) Ferritin (07/29/2018 11:09 AM EDT) athologist Signature Ferritin 151 (H) 15 - 150 [facility] ng/mL [facility] Comment: Pediatric reference ranges not verified at [facility], interpret with caution. Reference ranges for females greater keaton n 50 years of age approach values for men, i.e., 30-400 ng/mL. Specimen Anatomical Collection Method Collection Time Receive d Time (Source) Location / / Volume Laterality Blood specimen 07/29/2018 11:09 9 (specimen) AM EDT 11:40 AM EDT Resulting Agency Comment Spec In Lab Zhang Almanza MD CHEMISTRY ORDERABLES Performing Organization Address City/[facility]/[place] [address] documented in this encounter Visit Diagnoses Diagnosis Leukocytosis, unspecified type - Primary documented in this encounter Care Teams Taper Machine Relationship Specialty Start Date End Date Huyen Ramon DO PCP - General Family Medicine 04/05/[address] [place] [address] documented as of this encounter
--- OUTSIDE RECORDS SUMMARY | 2022-02-03 02:30 | XMS_ITS | Encounter Summary ---
:1970 Author Organization [facility] [place] [address] Care Team Providers Name Role Phone Osiris Garcia APRN Primary Care Provider Encounter Details Date Type Department Care Team Description 12/05/2017 Hospital Encounter Gastro[place]ology at [facility] [place] [address] [facility] [phone] CENTER GASTROENTEROLOGY DEPT. [place], [place] [address] Social History Tobacco Use Types Packs/Day Years Used Date Never Smoker Smokeless Tobacco: Never Used Alcohol Use Standard Drinks/Week Comments No 0 (1 standard drink = 0.6 oz pure alcoho l) Sex Assigned at Date Recorded Not on file documented as of this encounter Last Filed Vital Signs Vital Sign Reading Time Taken Comments Blood Pressure 122/81 12/05/2017 8:00 PM EDT Pulse 77 12/05/2017 7:37 PM EDT Temperature 36.8 ??C (98.2 ??F) 12/05/2017 3:39 PM EDT Respiratory Rate 18 12/05/2017 8:00 PM EDT Oxygen Saturation 98% 12/05/2017 8:00 PM EDT Inhaled Oxygen Concentration - - Weight 108 kg (238 lb) 12/05/2017 3:39 PM EDT Height 165.1 cm (5' 5) 12/05/2017 3:39 PM EDT Body Mass Index 39.61 12/05/2017 3:39 PM EDT documented in this encounter Discharge Instructions Discharge InstructionsMadiha Negrete RN - 12/05/2017 7:42 PM EDT UPPER GI [...] to be checked. Sunday-Sunday Same Day Endo [phone]-[id number] Otherwise contact [phone] and ask to speak to the exhibit technician wrong address clerk Follow up care is a pryor part [...] Narayan MD - 12/05/2017 7:04 PM EDT [facility] Operative Note Patient Name: Monisha Das : [id number] MR#: [id number] Case Date: 12/05/2017 Surgeon: Surgeon(s) and Role: [...] TH Visit (TeleHealth) General Surgery Rylie Rea, MOTOR VEHICLE REPRESENTATIVE [facility] [place] [address] Keiry Chatterjee, RD [facility] [place] [address] documented as of this encounter Procedures Procedure [...] PM 8 7:53 EDT PM EDT Narrative [facility] OR - 12/05/2017 7:53 PM EDT Specimen requisition ordered. ??Separate Pathology report to follow Resulting Agency Comment Spec In Lab Luther Narayan MD PATHOLOGY/CYTOLOGY ORDERABLE S Performing Organization Address [facility] [place] [address] Specimen to Pathology (12/05/2017 7:33 PM EDT) Specimen Anatomical Collection Method Collection Time Receive d Time (Source) Location / / Volume Laterality AP Specimen 12/05/2017 7:33 PM 8 7:53 EDT PM EDT Narrative [facility] - 12/05/2017 7:53 PM EDT Specimen requisition ordered. ??Separate Pathology report to follow Resulting Agency Comment Spec In Lab Luther Narayan MD PATHOLOGY/CYTOLOGY ORDERABLE S Performing Organization Address [facility] [place] [address] Specimen to Pathology (12/05/2017 7:33 PM EDT) Specimen Anatomical Collection Method Collection Time Receive d Time (Source) Location / / Volume Laterality AP Specimen 12/05/2017 7:33 PM 8 7:53 EDT PM EDT Narrative [facility] - 12/05/2017 7:53 PM EDT Specimen requisition ordered. ??Separate Pathology report to follow Resulting Agency Comment Spec In Lab Luther Narayan MD PATHOLOGY/CYTOLOGY ORDERABLE S Performing Organization Address [facility] [place] [address] Surgical Pathology Report (12/05/2017 6:38 PM EDT) Component Value Ref Test Analysis Performed At [facility] Method Time Signature Surgical [id number] ? Location: 4T; EA06; [facility] Pathology [place] Report The signing pathologist has (i) examined [...] Rodriguez MD Verified: ??12/11/2017 ?Pathologist Performed at: ??-[facility] Dept. of Pathology, [place], [place] CLINICAL INFORMATION Specimen Submitted: A - [...] Organization Address City/State/[place] [address] UPPER GI ENDOSCOPY (12/05/2017 6:29 PM EDT) Component Value Ref Test Analysis Performed At [facility] Range Method Time Signature UPPER GI [facility] ENDOSCOPY Endoscopy Procedure Date: 12/05/2017 6:29 PM ? Patient Name: Monisha Das ? Date of : 1970 ? Age: 46 ? Order #: [id number] ? Instrument Name: [id number] ? Procedure: ? Upper GI endoscopy Indications: [...] Laterality 12/05/2017 6:29 PM EDT Osiris Garcia MOTOR VEHICLE REPRESENTATIVE GENERAL SURGICAL ORDERABLES Performing Organization Address City/State/ZIP Code Phon e Number [place] UPPER EUS-ENDOSCOPIC ULTRASOUND (12/05/2017 6:28 PM EDT) Component Value Ref Test Analysis Performed Pathologis t Range Method Time At [facility] ENDOSCOPIC Endoscopy ULTRASOUND _ Procedure Date: 12/05/2017 6:28 PM ? Patient Name: Monisha Das ? Date of : 1970 ? Age: 46 ? Order #: [id number] ? Instrument Name: [id number] ? Procedure: ? Upper EUS Indications: ? diarrhea, exclude neuroendocrine tu mor Providers: ? Luther Narayan MD, Wilfredo Vallejo, ? Briana Henson, Fredy Gonzales Referring : ?Osiris A. JoseEssie boo Medicines: ? Propofol per Anesthesia Complications: ? [...] Component Value Ref Test Analysis Performed At [facility] Method Time Signature COLONOSCOPY [facility] Endoscopy Procedure Date: 12/05/2017 6:27 PM ? Patient Name: Monisha Das ? Date of : 1970 ? Age: 46 ? Order #: [id number] ? Instrument Name: -[id number] ? Procedure: ? Colonoscopy Indications: ? Chronic [...] the physician, mihai mobley ? nurse, the trial lawyer and e ? cctv technician. The procedure was ? verified in [...] withdrawn. Th e ? colonoscopy was performed yessy cazares ? difficulty. The patient leticia ated the ? procedure well. The quality o f the ? bowel preparation was evaluat ed using ? the BBPS (Thompson Bowel Prepar ation ? Scale) with scores [...] or ? opaque liquid, but mucosa see tammy marion). ? The total BBPS score equals 6 [...] done by the physician, nurse and ? cctv technician using the patient's name, date and [...] Procedure Code(s): ?? --- Professional --- ? 60343, Colonoscopy, flexible; with ? biopsy, single or multiple CPT copyright 2017 [employer]. All rights reserved. The codes documented in this report are preliminary and upon dress operator review may be revised to meet current [...] [facility] documented in this encounter Visit Diagnoses Not [...] mg (COMPLETED) 1944 (Given - Provider: Madiha Negrete RN)2014 (Due) 4 mg, Intravenous, ONCE, 1 dose, Wed 12/05 at July repeat X 1 in [...] Procedure) documented in this encounter Care Teams In School Suspension Aide Relationship Specialty Start Date End Date Osiris Garcia APRN PCP - General Internal Medicine 06/02/16 04/04/[address] [place] [address] documented as of this encounter
--- OUTSIDE RECORDS SUMMARY | 2022-02-03 02:30 | XMS_ITS | Encounter Summary ---
:1970 Author Organization [facility] [place] [address] Care Team Providers Name Role Phone TristenStefanijenna Tucker DO Primary Care Provider Encounter Details Date Type Department Care Team Description 07/29/2018 Hospital Encounter Hematology and Leukocy tosis, [place]cology at [facility] [place] [address] Social History Tobacco Use Types Packs/Day [...] mouth 0 mg Capsule, Delayed daily. Release(E.C.) potassium chloride Take 40 mEq by 0 (K-DUR/KLOR-CON) 20 mEq mouth 2 times Tab Sust.Rel. daily. Particle/Crystal venlafaxine (EFFEXOR) 37.5 Take 37.5 mg by 0 08/11/2019 mg Tablet mouth daily. ondansetron (ZOFRAN) 4 mg Take 4 [...] mg tablet documented as of this encounter Plan of Treatment Upcoming Encounters Date Type Specialty Care Team Description 02/08/2022 TH Visit (TeleHealth) General Surgery Rylie Rea, DATA ABSTRACTOR [facility] [place] [address] Keiry Chatterjee, RD [facility] [place] [address] documented as of this encounter Procedures Procedure Name Priority Date/Time Associated Comments Diagnosis IMMUNOGLOBULIN FREE LIGHT Routine 07/29/2018 11:09 Leukocytosi s, Results for this CHAINS, SERUM AM EDT unspecified type procedure are in the results section. IMMUNOPHENOTYPING FLOW Routine 07/29/2018 11:09 Leukocytosis, Results for this CYTOMETRY AM EDT unspecified type procedure a re in the results section. CRP, ACUTE INFLAMMATION Routine 07/29/2018 11:09 Leukocytosis, Results for this AM EDT unspecified type procedure a re in the results section. IMMUNOGLOBULINS, STAT 07/29/2018 11:09 Leukocytosis, Result s for this QUANTITATIVE AM EDT unspecified type procedure a re in the results section. FLOW CYTOMETRY REPORT Routine 07/29/2018 11:09 Re sults for this AM EDT procedure are i n the results section. HEMOGRAM Routine 07/29/2018 11:09 Leukocytosis, Results fo r this AM EDT unspecified type procedure a re in the results section. DIFFERENTIAL, AUTOMATED Routine 07/29/2018 11:09 Leukocytosis, Results for this AM EDT unspecified type procedure a re in the results section. IRON AND TIBC Routine 07/29/2018 11:09 Leukocytosis, Results f or this AM EDT unspecified type procedure a re in the results section. SEDIMENTATION RATE STAT 07/29/2018 11:09 Leukocytosis, Resu lts for this AM EDT unspecified type procedure a re in the results section. CBC (WITH DIFF) Routine 07/29/2018 11:09 Leukocytosis, AM EDT unspecified type PROTEIN ELECTROPHORESIS, STAT 07/29/2018 11:09 Leukocytosis , Results for this SERUM AM EDT unspecified type procedure a re in the results section. LACTATE DEHYDROGENASE Routine 07/29/2018 11:09 Leukocytosis, R esults for this AM EDT unspecified type procedure a re in the results section. FERRITIN Routine 07/29/2018 11:09 Leukocytosis, Results fo r this AM EDT unspecified type procedure a re in the results section. documented in this encounter Results Flow Cytometry Report (07/29/2018 11:09 AM EDT) Component Value Ref Test Analysis Performed At [facility] Method Time Signature Flow [id number] ? Location: [address] [place] [address] Report The signing pathologist has (i) examined the relevant preparation(s) for the [facility]IAL specimen(s) and (ii) rendered or confirmed the diagnosis(es) . HOSPITAL LABORATORY . ?Cale w Cytometry DIAGNOSIS Normal immunophenotyping res ults. No monotypic B-cell population or phenotypically abnormal T-cell population or increase in blasts is detecte d. Electronically signed by: ??Aron Betancur MD Verified: ??07/29/2018 ?Hematopathologist Performed at: ??-[facility] [place], [place], [place] DISCUSSION Blasts based on CD45 express ion and orthogonal light scatter, are not increased. The T-lymphocytes, CD56+ NK cells and B- lymphocytes comprise approx 82%, 6%, 12% of the gated population, respectively. The CD19 positive B-cells thomas ve a polytypic expression of surface immunoglobulin light chain (Akins:Lambda ratio a t 1.3). The T-cells are an admixture of CD4+ and CD8+ T lymphocytes (ratio of 2.4). No loss or atypical intensity distributions are seen for any quintana T antigen (CD2, 3, 4+8, 5, 7). There is no increase in WB64-ubzztlig/CD3-neg NK cells. Flow analysis is an ancillar y study. A definite diagnosis requires correlation with the morphologic features of this process and if necessary, correlation with other ancillary studies like immu nohistochemistry, enzyme cytochemistry and/or cyto/ molecular genetics. This test was developed and its performance neetu acteristics determined by the Clinical Flow Cytometry Lab oratory at [facility]. It has not been cleared or approve d by the U.S. Food and Drug Administration. ??The FDA has determined that such cleara nce or approval is not necessary. ??This test is used for clinical purposes. ??It rajendra uld not be regarded as investigational or for research. This laboratory is certifie d under the Clinical Laboratory Improvement Act of 1988 (CLIA) as qualified to perform high complexity clinic al laboratory testing. SPECIMEN PROCESSING [id number] Cells for immunophenotypic a nalysis were derived from blood. CD45 vs side scatter gating was utilized to identify a lymphoid analysis region that comprises approximately 36-37% of all cells. The following markers were a ssessed: CD2, CD3, CD4, CD5, CD7, CD8, CD10, CD19, CD45, CD56, kappa light chain, and lambda light chain. CLINICAL INFORMATION lymphocytosis Specimen (Source) Anatomical Collection Method Collection Time Re ceived Time Location / / Volume Laterality 07/29/2018 11:09 AM EDT Zhang Almanza MD PATHOLOGY/CYTOLOGY ORDERABLE S Performing Organization Address City/State/[place] [address] Differential, Automated (07/29/2018 11:09 AM EDT) athologist Signature Neutrophils % 50.5 % [facility] LABORATORY Neutr Abs (ANC) 3.96 1.70 - [facility] 6.10 [facility] x10(3)/[facility] LABORATORY Lymphocytes % 40.1 % [facility] LABORATORY Lymphocytes Abs 3.2 0.9 - 3.2 [facility] x10(3)/[facility] LABORATORY Monocytes % 5.2 % [facility] LABORATORY Monocyte Abs 0.4 0.3 - 0.9 [facility] x10(3)/[facility] LABORATORY Eosinophils % 3.6 % [facility] LABORATORY Eosinophils Abs 0.3 0.0 - 0.4 [facility] x10(3)/[facility] LABORATORY Basophils % 0.5 % [facility] LABORATORY Basophils Abs 0.0 0.0 - 0.1 [facility] x10(3)/[facility] LABORATORY Immature Gran % 0.10 % [facility] LABORATORY Comment: Immature granulocytes(IG's)percentage an d absolute count will include metamyelocytes, myelocytes, and promyelo cytes. Blood smears from CBCs yielding IG's will be scanned manually for concor dance. If this scan disagrees with the automated IG or if promyelocytes are not ed, a manual differential will be performed. Alfreda Gran Abs 0.01 0.00 - 0.04 x10(3)/[facility] Y [facility] LABORATORY Specimen Anatomical Collection Method Collection Time Receive d Time (Source) Location / / Volume Laterality Blood specimen 07/29/2018 11:09 9 (specimen) AM EDT 11:40 AM EDT Resulting Agency Comment Spec In Lab Zhang Almanza MD HEMATOLOGY ORDERABLES Performing Organization Address City/State/[place] [address] Hemogram (07/29/2018 11:09 AM EDT) P athologist Signature WBC 7.8 4.0 - 9.5 [facility] x10(3)/[facility] LABORATORY RBC 4.65 4.00 - [place] [facility] 5.21 [facility] x10(6)/[facility] LABORATORY Hemoglobin 13.2 11.7 - [place] [facility] 15.5 gm/dL [facility] LABORATORY Hematocrit 39.0 35.7 - [place] [facility] 45.8 % [facility] LABORATORY MCV 83.9 82.6 - [facility] RAJ 94.4 [facility] LABORATORY MCH 28.4 27.1 - [place] [facility] 32.0 pg [facility] LABORATORY MCHC 33.8 31.7 - [place] [facility] 35.0 gm/dL [facility] LABORATORY Platelets 353 145 - 357 [facility] x10(3)/[facility] LABORATORY RDWSD 40.5 37.0 - [facility] 46.0 [facility] LABORATORY RDWCV 13.2 11.5 - [place] [facility] 14.1 % [facility] LABORATORY MPV 9.6 7.6 - 12.9 [facility] RAJ [facility] LABORATORY nRBC % Auto 0.0 % [facility] LABORATORY nRBC Abs Auto 0.000 0.000 - [place] [facility] 0.000 [facility] x10(3)/[facility] LABORATORY Specimen Anatomical Collection Method Collection Time Receive d Time (Source) Location / / Volume Laterality Blood specimen 07/29/2018 11:09 9 (specimen) AM EDT 11:40 AM EDT Resulting Agency Comment Spec In Lab Zhang Almanza MD HEMATOLOGY ORDERABLES Performing Organization Address City/State/[place] [address] (ABNORMAL) Iron and TIBC (07/29/2018 11:09 AM EDT) Analysis Performed At Patho logist Time Signature Iron 61 30 - 150 [place] [facility] mcg/dL [facility] LABORATORY TIBC 241 (L) 250 - 450 [place] [facility] mcg/dL [facility] LABORATORY Iron Saturation 25 20 - 50 % [facility] LABORATORY Specimen Anatomical Collection Method Collection Time Receive d Time (Source) Location / / Volume Laterality Blood specimen 07/29/2018 11:09 9 (specimen) AM EDT 11:40 AM EDT Resulting Agency Comment Spec In Lab Zhang Almanza MD CHEMISTRY ORDERABLES Performing Organization Address City/[facility]/ZIP Code Phon e Number [address] (ABNORMAL) Ferritin (07/29/2018 11:09 AM EDT) P athologist Signature Ferritin 151 (H) 15 - 150 [facility] ng/mL [facility] LABORATORY Comment: Pediatric reference ranges not verified at [facility], interpret with caution. Reference [...] Almanza MD CHEMISTRY ORDERABLES Performing Organization Address City/[facility]/ZIP Code Phon e Number [address] CRP, acute inflammation (07/29/2018 11:09 AM EDT) P athologist Signature CRP 4.0 <=4.9 mg/L [facility] LABORATORY Specimen Anatomical Collection Method Collection Time Receive d Time (Source) Location / / Volume Laterality Blood specimen 07/29/2018 11:09 9 (specimen) AM EDT 11:40 AM EDT Resulting Agency Comment Spec In Lab Zhang Almanza MD CHEMISTRY ORDERABLES Performing Organization Address City/[facility]/ZIP Code Phon e Number [address] Sedimentation rate (07/29/2018 11:09 AM EDT) athologist Signature Sed Rate 11 0 - 20 [facility] LABORATORY Specimen Anatomical Collection Method Collection Time Receive d Time (Source) Location / / Volume Laterality Blood specimen 07/29/2018 11:09 9 (specimen) AM EDT 11:40 AM EDT Resulting Agency Comment Spec In Lab Zhnag Almanza MD HEMATOLOGY ORDERABLES Performing Organization Address City/[facility]/ZIP Code Phon e Number [address] Immunophenotyping Flow Cytometry (07/29/2018 11:09 AM EDT) Component Value Ref Test Analysis Performed At [facility] Range Method Time Signature Immunophenotyping See [place] Flow Comment [facility] LABORATORY Comment: When completed by the Pathologist, the F marlys Cytometry Report ([id number]) will display under the Pathology Result s section within [facility]. Specimen Anatomical Collection Method Collection Time Receive d Time (Source) Location / / Volume Laterality Specimen of 07/29/2018 11:09 07/29/2018 unknown material AM EDT 11:40 AM ED T (specimen) Resulting Agency Comment Spec In Lab Zhang Almanza MD HEMATOLOGY ORDERABLES Performing Organization Address City/[facility]/ZIP Code Phon e Number [address] Protein Electrophoresis, serum (07/29/2018 11:09 AM EDT) [facility] Method Time Signature Total Prot 7.1 6.1 - 8.0 [place] Elec gm/dL [facility] LABORATORY Albumin Elect 4.65 3.60 - 6.00 [place] gm/dL [facility] LABORATORY Alpha1-Globul 0.19 0.10 - 0.30 [place] in gm/dL [facility] LABORATORY Alpha2-Globul 0.72 0.40 - 0.90 [place] in gm/dL [facility] LABORATORY Beta Globulin 0.63 0.50 - 1.00 [place] gm/dL [facility] LABORATORY Gamma 0.90 0.50 - 1.30 [place] Globulin gm/dL [facility] LABORATORY M1 Band None None [place] Detected Detected [facility] LABORATORY Specimen Anatomical Collection Method Collection Time Receive d Time (Source) Location / / Volume Laterality Blood specimen 07/29/2018 11:09 9 (specimen) AM EDT 11:40 AM EDT Resulting Agency Comment Spec In Lab Zhang Almanza MD CHEMISTRY ORDERABLES Performing Organization Address City/[facility]/ZIP Code Phon e Number [address] (ABNORMAL) Immunoglobulins, Quantitative (07/29/2018 11:09 AM EDT) athologist Signature IgG 908 700 - 1,600 [facility] mg/dL [facility] LABORATORY Comment: Pediatric Reference Intervals obtained f rom the Caliper Reference Interval project. http://www.[employer].ca/caliperp roject/index.html IgA 173 70 - 400 mg/dL [facility] LABORATORY IgM 231 (H) 40 - 230 mg/dL [facility] LABORATORY Specimen Anatomical Collection Method Collection Time Receive d Time (Source) Location / / Volume Laterality Blood specimen 07/29/2018 11:09 9 (specimen) AM EDT 11:40 AM EDT Resulting Agency Comment Spec In Lab Zhang Almanza MD CHEMISTRY ORDERABLES Performing Organization Address [facility] Phon e Number [address] Free Light Chains, Serum (07/29/2018 11:09 AM EDT) athologist Signature Akins Free 1.50 0.81 - [facility] Light Chains 2.98 mg/dL [facility] LABORATORY Lambda Free 1.68 0.86 - [facility] Light Chains 1.99 mg/dL [facility] LABORATORY Akins/Lambda 0.8929 0.5000 - [facility] Free Light 2.4300 [facility] LABORATORY Comment: Please be advised [...] Almanza MD CHEMISTRY ORDERABLES Performing Organization Address City/[facility]/[place] [address] Lactate Dehydrogenase (07/29/2018 11:09 AM EDT) P athologist Signature LDH 215 110 - 220 [facility] unit/L [facility] LABORATORY Specimen Anatomical Collection Method Collection Time Receive d Time (Source) Location / / Volume Laterality Blood specimen 07/29/2018 11:09 9 (specimen) AM EDT 11:40 AM EDT Resulting Agency Comment Spec In Lab Zhang Almanza MD CHEMISTRY ORDERABLES Performing Organization Address City/State/[place] [address] documented in this encounter Visit Diagnoses Diagnosis Leukocytosis, unspecified type documented in this encounter Care Teams Director Of Retail Analytics Relationship Specialty Start Date End Date Huyen Ramon DO PCP - General Family Medicine 04/05/[address] [place] [address] documented as of this encounter
--- OUTSIDE RECORDS SUMMARY | 2022-02-03 02:30 | XMS_ITS | Encounter Summary ---
:1970 Author Organization [facility] [place] [address] Care Team Providers Name Role Phone Johanazachary Huyenjenna Tucker DO Primary Care Provider Encounter Details Date Type Department Care Team Description 06/06/2019 Notes Only Auditorium [facility] at [facility] [place] [id number] Social History Tobacco Use Types Packs/Day Years Used Date Never Smoker Smokeless Tobacco: Never Used Alcohol Use Standard Drinks/Week Comments No 0 (1 standard drink = 0.6 oz pure alcoho l) Sex Assigned at Date Recorded Not on file documented as of this encounter Progress Notes Yadira Worthington - 06/06/2019 2:00 PM EST Patient attended the Intro to Bariatric Surgery session on 06/06/2019 - Patient chose USB Chart documented in this encounter Plan of Treatment Upcoming Encounters Date Type Specialty Care Team Description 02/08/2022 TH Visit (TeleHealth) General Surgery Rylie Rea, SUPERINTENDENT LOCAL [facility] [place] [id number] Keiry Chatterjee, RD [facility] [place] [id number] documented as of this encounter Visit Diagnoses Not on filedocumented in this encounter Care Teams Home Health Attendant Relationship Specialty Start Date End Date Huyen Ramon DO PCP - General Family Medicine 04/05/[address] [place] [address] documented as of this encounter
--- OUTSIDE RECORDS SUMMARY | 2022-02-03 02:30 | XMS_ITS | Encounter Summary ---
:1970 Author Organization [facility] [place] [address] Care Team Providers Name Role Phone Sushil Loya MD Primary Care Provider [phone] Encounter Details Date Type Department Care Team Description 09/16/2015 Hospital Encounter [facility] [place] [address] Social History Tobacco Use Types Packs/Day Years Used Date Never Smoker Sex Assigned at Date Recorded Not on file documented as of this encounter Medications at Time of Discharge Medication Sig Dispensed Refills Start Date End Date gabapentin (NEURONTIN) 300 800mg BID 0 5 mg Capsule lisinopril Take 20 mg by 0 12/28/2020 (PRINIVIL;ZESTRIL) 20 mg mouth daily. Tablet Reported on 06/15/2016 b complex vitamins Tablet Take 1 tablet by 0 10/24/2017 mouth daily. fish oil-omega-3 fatty acids Take 2 g by mouth 0 10/16/2018 1,000 mg Capsule daily. Reported on 06/15/2016 buPROPion (WELLBUTRIN XL) Take 300 mg by 0 11/29/2019 300 mg Tablet Sustained mouth every Release 24 hr morning. topiramate (TOPAMAX) 100 mg Take 50 mg by 0 07/23/2019 Tablet mouth daily. hydrOXYzine (ATARAX) 25 mg Take 25 mg by 0 08/11/2019 Tablet mouth every 8 hours as needed for Itching. triamcinolone (ARISTOCORT) Apply topically 0 12/28/2020 0.5 % Cream as needed. CIS Free Text Med - 0 02/04/201010/24 Children's Multi Vitamins ferrous sulfate 325 mg (65 0 0 10/24/2017 mg Iron) tablet famotidine (PEPCID) 10 mg 0 02/04/2010 10/24/2017 tablet hydrochlorothiazide 0 02/04/201010/03 (HYDRODIURIL) 25 mg tablet SERTRALINE HCL (ZOLOFT ORAL) 0 010 10/24/2017 documented as of this encounter Plan of Treatment Upcoming Encounters Date Type Specialty Care Team Description 02/08/2022 TH Visit (TeleHealth) General Surgery Rylie Rea, ASSISTANT PROFESSOR OF SOCIOLOGY [facility] [place] [address] Keiry Chatterjee, RD [facility] [place] [address] documented as of this encounter Visit Diagnoses Not on filedocumented in this encounter Care Teams Sr Risk Management Consultant Relationship Specialty Start Date End Date Sushil Loya MD PCP - General General Internal Medicine 09/13/15 06/01/[address] [place] [place] [address] documented as of this encounter
--- OUTSIDE RECORDS SUMMARY | 2022-02-03 02:30 | XMS_ITS | Encounter Summary ---
:1970 Author Organization [facility] [place] [address] Care Team Providers Name Role Phone Huyen Ramon Primary Care Provider Encounter Details Date Type Department Care Team Description 07/24/2019 External Results [facility] at [facility] [address] [place] [address] Social History Tobacco Use Types Packs/Day Years Used Date Never Smoker Smokeless Tobacco: Never Used Alcohol Use Standard Drinks/Week Comments No 0 (1 standard drink = 0.6 oz pure alcoho l) Sex Assigned at Date Recorded Not on file documented as of this encounter Progress Notes Forest Snyder RN - 07/24/2019 8:26 AM EDT Lab values added per scanned docs. Thank you, Forest Snyder RN 07/24/2019 8:29 AM documented in this encounter Plan of Treatment Upcoming Encounters Date Type Specialty Care Team Description 02/08/2022 TH Visit (TeleHealth) General Surgery Rylie Rea, SENIOR ACCOUNT CLERK [facility] [place] [address] Keiry Chatterjee, RD [facility] [place] [address] documented as of this encounter Goals Goal [...] fit bit documented as of this encounter Procedures Procedure Name Priority Date/Time Associated Diagnosis Comme nts [facility] EXTERNAL RESULT Routine 05/19/2019 Results for this PANEL procedure are i n the results section . documented in this encounter Results (ABNORMAL) [facility] External Results (05/19/2019) Analysis Performed At [facility] Time Signature Glucose 143 (ExtH) Fasting Comment: 74-106 BUN 18 Creatinine 0.92 Sodium 141 Potassium 4.5 Chloride 103 CO2 30 Anion Gap 8 Calcium 9.1 Estimated GFR >=60.0 Thyroglob Ab 117 Magnesium 1.6 (ExtL) mg/dL Comment: 1.8-2.4 Specimen (Source) Anatomical Location Collection Method / Collectio n Time Received Time / Laterality Volume 05/19/2019 Historical Provider POINT OF CARE TEST ORDERABLE S documented in this encounter Visit Diagnoses Not on filedocumented in this encounter Care Teams Delicatessen Department Manager Relationship Specialty Start Date End Date Huyen Ramon, DO PCP - General Family Medicine 04/05/[address] [place] [address] documented as of this encounter
--- OUTSIDE RECORDS SUMMARY | 2022-02-03 02:30 | XMS_ITS | Encounter Summary ---
:1970 Author Organization [facility] Address [facility] [place] [address] Care Team Providers Name Role Phone Osiris Garcia ENRIQUE Primary Care Provider Encounter Details Date Type Department Care Team Description 12/05/2017 Anesthesia Event Gastroenterology at [facility] Kelvin Alvarez MD [facility] DR [place] [address] [facility] Chandni Lindsay CRNA [facility] [place] [address] [place] [address] Anesthesia Record Procedure Summary Procedure Name Responsible Anesthesia Start Anesthesia Stop Anesthesiologist Time Time UPPER EUS- Kelvin Alvarez MD 12/05/17 18212/05/17 1 932 ENDOSCOPIC ULTRASOUND (N/A Trunk) Events Date Time Event Comment 12/05/2017 1633 1824 Start 1825 AN Verify 1826 An Start Data 183 An Induction 4 L/min O2 via N C. Smooth IV induction; spontaneous vent ilation maintained. 1832 Anesthesia Ready 1833 Procedure Start 1903 Handoff Intra-procedure anesthesia care was transferred afte r review of the patient's history, current anesthetic/surgical status and plan, accord ing to the ANES Provider Handoff Checkstacies tMalia 1931 an stop data 1931 Recovery or ICU Handoff Patient care was transferred to the destination unit staff after review of the patient's medica l history, current anesthetic/surgi divina status and plan, according to the Provider Handoff Checklist. 1931 Stop Name Total IV Lidocaine 60 mg Propofol 270 mg Propofol INF 1,139.4 mg lactated Ringers infusion 1,000 mL Agents Name O2 Air N2O O2 Auxiliary Flowmeter 1 Blood No blood administrations on file. Lines, Drains, and Airways Type Details Placement Removal PIV 12/05/17; 1547; median vein 12/05/17 1547 by Wilmer covarrubias, 12/05/172005 by (underside of arm), right; LORELEI Robles Sylvie, RN [id number] catheter system; 22 gauge; Angelito Shea RN; distraction, intradermal injection; no longer indicated, removed per policy/procedure; 12/05/172005 documented in this encounter Social History Tobacco Use Types Packs/Day Years Used Date Never Smoker Smokeless Tobacco: Never Used Alcohol Use Standard Drinks/Week Comments No 0 (1 standard drink = 0.6 oz pure alcoho l) Sex Assigned at Date Recorded Not on file documented as of this encounter OR Notes Anesthesia Postprocedure Evaluation - Franc Elliott - 12/05/2017 8:15 PM EDT [facility] Department of Anesthesiology Post-procedure Note Patient: Monisha Das Procedure Summary Date Anesthesia Start Anesthesia Stop Room / Location 12/05/171823 [facility] ENDO 3 / [facility] ENDOSCOPY Procedure Diagnosis Surgeon Responsible Provider UPPER EUS- ENDOSCOPIC ULTRASOUND (N/A Trunk); EGD WITH BIOPSY (WRVU 2.49) (N/A Trunk); COLONOSCOPY,DIAGNOSTIC (N/A Trunk) Gastroesophageal reflux disease, esophagitis presence not specified; Dysphagia, unspecified type; Diarrhea, unspecified type (?microscopic colitis diarrhea. surveillance serrated adenoma; ? pancreatic insufficiency) Luther Narayan MD Burchman, Corey A, MD All Anesthesia Providers: Anesthesiologist: Kelvin Alvarez MD FRONT EDGER: Chandni Negrete CRNA Mobility Scooter Repairer: Franc Elliott MD Most Recent Vitals: 12/05/171999 BP: 122/81 Pulse: Resp: 18 Temp: SpO2: 98% Pain 0 (12/05/171936) Patient Location: PACU/[facility] Level of Consciousness: Awake and Alert Pain Management: Satisfactory Analgesia PONV: None Cardiovascular Status: At Baseline and Hemodynamically Stable Respiratory Status: At Baseline and Room Air Postoperative Fluid Status: Intravascular EUvolemia Possible Anesthetic Complications: NONE apparent at time of evaluation Final Primary Anesthesia Type: MAC (The anesthetic type performed was the same as planned.) Comments: Franc Elliott MD Anesthesia Preprocedure Evaluation - Kelvin Alvarez MD - 12/05/2017 4:26 PM EDT Pre-Anesthesia Evaluation for: Monisha Das a 46 y.o. female. Procedure(s): UPPER EUS- ENDOSCOPIC ULTRASOUND EGD, UPPER GI ENDOSCOPY COLONOSCOPY, DIAGNOSTIC There are no active problems to display for this patient. Past Medical History: Diagnosis Date ??? GERD (gastroesophageal reflux disease) Past Surgical History: Procedure Laterality Date ??? TONSILLECTOMY Social History Substance Use Topics ??? Smoking status: Never Smoker ??? Smokeless tobacco: Never Used ??? Alcohol use No History Drug Use No Allergies Allergen Reactions ??? Atropine CIS - redness and bodily swelling ??? Spironolactone Rash Medications: MAR and/or home medications have been reviewed. Physical Exam: Most Recent Vitals: 12/05/17 1539 BP: 131/72 Pulse: 80 Resp: 15 Temp: 36.8 ??C (98.2 ??F) SpO2: 99% Body mass index is 39.61 kg/(m^2). Height: 165.1 cm (5' 5) Weight: 108 kg (238 lb) Airway Assessment: Mallampati: II TM distance: >3 FB Neck ROM: full Cardiovascular Assessment: Pulmonary Assessment: Dental Assessment: - normal exam Misc Assessment: Patient is wearing No contact(s). IV access: Peripheral line Anesthesia Plan: ASA 2 MAC, with a(n) intravenous induction Medical record reviewed. 46 year old female to undergo Upper Endo/EUS and colonoscopy No contraindications to proceeding Plan: MAC sedation Region - Other Informed Consent: Anesthetic plan and risks discussed with patient. Plan discussed with FRONT EDGER and attending. PAT Staff Note documented in this encounter Plan of Treatment Upcoming Encounters Date Type Specialty Care Team Description 02/08/2022 TH Visit (TeleHealth) General Surgery Rylie Rea, ORACLE DATABASE DEVELOPER [facility] [place] [address] Keiry Chatterjee, RD [facility] [place] [address] documented as of this encounter Visit Diagnoses [...] 3:50 PM EDT 100 mL/hr 100 mL/hr lidocaine (PF) (XYLOCAINE) 100 mg/5 mL (2 %) Given 8 6:31 PM EDT 60 mg injection PRN, Starting on Sun12/05/17 at 1831, Until Sun12/05/17 at 1932, Anesthesia Intra-op, Routine propofol (DIPRIVAN) 10 mg/mL bolus injection Given 8 7:07 PM EDT 20 mg (Anesthesia) PRN, Starting on Sun12/05/17 at 1831, Until Sun12/05/17 at 193, Anesthesia Intra-op Given 12/05/2017 6:50 PM EDT 50 mg Given 12/05/2017 6:39 PM EDT 50 mg propofol (DIPRIVAN) Rate/Dose 12/05/2017 6:59 150 mcg/kg/min 97.2 mL /hr infusion Change PM EDT CONTINUOUS PRN, Starting on Sun12/05/17 at 1831, Until Sun12/05/17 at 1932, Anesthesia Intra-op, Routine New Bag 12/05/2017 6:31 PM EDT 200 mcg/kg/min 129.6 mL/hr documented in this encounter Care Teams Staff Auditor Relationship Specialty Start Date End Date Osiris Garcia APRN PCP - General Internal Medicine 06/02/16 04/04/[address] [place] [address] documented as of this encounter
--- OUTSIDE RECORDS SUMMARY | 2022-02-03 02:30 | XMS_ITS | Encounter Summary ---
:1970 Author Organization [facility] [place] [address] Care Team Providers Name Role Phone NicaHuyen urena Caitlin MOORE Primary Care Provider Reason for Visit Reason Comments Follow-up spells Encounter Details Date Type Department Care Team Description 08/15/2018 Office Visit Allergy at [facility] Irma Schroeder, [place]; [facility] Diarrhea, unspecified type; Drive [facility] Angioedema, [place] [address] ALLERGY AND [phone] IMMUNOLOGY [place], [place] [address] Social History Tobacco Use Types Packs/Day Years Used Date Never Smoker Smokeless Tobacco: Never Used Alcohol Use Standard Drinks/Week Comments No 0 (1 standard drink = 0.6 oz pure alcoho l) Sex Assigned at Date Recorded Not on file documented as of this encounter Last Filed Vital Signs Vital Sign Reading Time Taken Comments Blood Pressure 153/83 08/15/2018 2:39 PM EDT Pulse 91 08/15/2018 2:39 PM EDT Temperature - - Respiratory Rate - - Oxygen Saturation 100% 08/15/2018 2:39 PM EDT Inhaled Oxygen Concentration - - Weight 108.4 kg (239 lb) 08/15/2018 2:39 PM EDT Height 163.8 cm (5' 4.5) 08/15/2018 2:39 PM EDT Body Mass Index 40.39 08/15/2018 2:39 PM EDT documented in this encounter Patient Instructions Patient InstructionsIrma Schroeder MD - 08/15/2018 2:30 PM EDT - Avoid NSAIDs ( ie aspirin, ibuprofen, naproxen, Motrin, Aleve, Advil) - Avoid friction, hot showers, alcohol ?? - Start Zyrtec 10mg once daily - Always have epinephrine autoinjector available. Call 911 and go to the local ER after administering it. ?? - Complete 24 hour urine tests and lab - Have your tryptase level checked during a spell. Please request ER provider to check a tryptase level. ?? - continue to follow up with PCP for management of diarrhea ?? - Elevated blood pressure- Recommend continued monitoring and follow up with primary provider for further evaluation and management of elevated blood pressure. Discuss with primary care provider about switching to an alternative blood pressure medication to lisinopril. Please note that if you have any questions about the laboratory or radiologic tests being ordered, please call us prior to having the tests. If you have questions about the the cost of the tests being ordered, please contact the patient finance office at , prior to having the tests collected. Please contact the allergy clinic in 7-10 business days for your test results. You may call [phone]. documented in this encounter Progress Notes Irma Schroeder MD - 08/15/2018 2:30 PM EDT Chief Complaint Patient presents with ??? Follow-up spells HPI. Monisha Das Is here today for a follow up visit. Last encounter in this section was on01/17/17 Accompanied by her partner, Jayne. The patient continues to have diarrhea, flushing associated with injected conjuctivae of one eye ( has occurred in the right and left eye) and swelling of the neck. She feels her symptoms have increased in severity since her last visit. She has chronic leukocytosis and saw Dr. Almanza on 07/29/18. He felt it was unlikely that she had a hematologic cause for her recurrent symptoms. Her most recent reaction was in July. Symptoms included flushing, diarrhea, palpitations, sweats. No difficulty breathing. She also has swelling from her ankles to above her knees. She had to go to her local ER twice for acute treatment. She was treated for hypokalemia and was d/natasha on oral potassum supplements. Four days later, she had muscle weakness. She went to the ED, she received Mg and K supplement. She has continued to take potassium 20 mEq BID. No specific food trigger. She takes ibuprofen oncemonthly. Per the patient, she had a tryptase level checked at [facility] and it was 9.3ng/mL. She has a standing tryptase lab at [facility] to be drawn prn symptoms of MCAS. She is not taking any antihistamines. She has an EPiPen, but not available at today's visit. She has GERD and takes omeprazole. She does not have heartburn or reflux on PPI. 10/15/2015 Octreotide scan - No somatatin receptor positive tumor is detected. Family history: No family history of mastocytosis, pheochromocytoma or carcinoid syndrome. Elevated BP No chest pain, SOB, vision changes or headache. She is on lisinopril and HCTZ. Review of Systems: All other systems reviewed and negative, except as noted below. Review of Systems Eyes: Positive for redness. Skin: Positive for rash. Gastrointestinal: Positive for diarrhea. All other systems reviewed and are negative. Allergies, medications, past medical/ surgical history were reviewed and updated in [facility]. Allergies: Atropine and Spironolactone Medications: Outpatient Medications Marked as Taking for the 08/15/18 encounter (Office Visit) with Irma Schroeder MD Medication Sig Dispense Refill ??? potassium chloride (K-DUR/KLOR-CON) 20 mEq Tab Sust.Rel. Particle/Crystal Take 20 mEq by mouth daily. ??? venlafaxine (EFFEXOR) 37.5 mg Tablet Take 37.5 mg by mouth 3 times daily. ??? ondansetron (ZOFRAN) 4 mg Tablet Take [...] Take 150 mg by mouth daily. ??? triamcinolone (ARISTOCORT) 0.5 % Cream Apply topically as needed. ??? hydrochlorothiazide (HYDRODIURIL) 25 mg tablet Past Medical and Social History: Past Medical History: Diagnosis Date ??? GERD (gastroesophageal reflux disease) Past Surgical History: Procedure Laterality Date ??? PRO COLONOSCOPY, DIAGNOSTIC N/A 12/05/2017 COLONOSCOPY, DIAGNOSTIC performed by Luther Narayan MD at [facility] ENDOSCOPY ??? PRO ENDOSCOPIC US EXAM, ESOPH N/A 12/05/2017 UPPER EUS- ENDOSCOPIC ULTRASOUND performed by Luther Narayan MD at [facility] ENDOSCOPY ??? PRO UPPER GI ENDOSCOPY, BIOPSY N/A 12/05/2017 EGD WITH BIOPSY (WRVU 2.49) performed by Luther Narayan MD at [facility] ENDOSCOPY ??? TONSILLECTOMY Family history: Family History Problem Relation Age of Onset ??? Asthma Daughter Social history: Social History Socioeconomic History ??? Marital status: Spouse name: None ??? Number of children: None ??? Years of education: None ??? Highest education level: None Occupational History ??? None Social Needs ??? Financial resource strain: None ??? Food insecurity: Worry: None Inability: None ??? Transportation needs: Medical: None Non-medical: None Tobacco Use ??? Smoking status: Never Smoker ??? Smokeless tobacco: Never Used Substance and Sexual Activity ??? Alcohol use: No ??? Drug use: No ??? Sexual activity: None Lifestyle ??? Physical activity: Days per week: None Minutes per session: None ??? Stress: None Relationships ??? Social connections: Talks on phone: None Gets together: None Attends samaritan service: None Active member of club or organization: None Attends meetings of clubs or organizations: None Relationship status: None ??? Intimate partner violence: Fear of current or ex partner: None Emotionally abused: None Physically abused: None Forced sexual activity: None Other Topics Concern ??? None Social History Narrative ??? None Physical Exam: Vital signs reviewed. Most Recent Vitals: 08/15/18 1439 BP: 153/83 Pulse: 91 SpO2: 100% Normal Except General: - No apparent distress Eyes: - Conjunctivae without injection; - No eyelid swelling ENT: - No erythema of the tympanic membranes - Normal external ear canals - Nl nasal mucosa, septum, and turbinates; - Oropharynx well hydrated without lesions or exudates; - Face & sinuses non-tender to palpation/percussion Neck: - Symmetrical, no masses, trachea midline; Resp: - Unlabored breathing with symmetrical and equal bilateral expansion; - CTA w/o wheezes, rales, or rhonchi; CV: - Regular rate and rhythm - No pedal swelling GI: - Abdomen soft - Bowel sounds present - No hepatosplenomegaly Lymph: - No significant cervical, supraclavicular, infraclavicular, axillary lymphadenopathy Musculoskeletal: - Nl gait and station Extremities: - No clubbing, cyanosis, or edema Skin: - No rashes Neuro/Psych: - Nl and age appropriate mood and affect - Judgement and insight intact Tests or Procedures: Impression Report Plan: # [place] # Diarrhea # Angioedema - Previous workup for MCAS was unremarkable. Patient she is on ERROL inhibitors which are associated with has a history of elevated carcinoid syndrome mediators, however, the octreotide scan was normal. Patient would like to repeat MCAS workup. The patient is on an ERROL inhibitor which is associated with angioedema. Since she has angioedema with these episodes, recommend she discuss with her primary discontinuing the ERROL inhibitor and starting an alternative. -Start trial of cetirizine 10 mg once daily -Epinephrine autoinjector ( ie EpiPen, AuviQ or generic) be administered if she develops dyspnea, throat swelling or loss of consciousness. If epinephrine autoinjector is administered 911 should be called immediately. The risks, benefits, alternatives, storage methods, indications and administration te chnique of epinephrine autoinjector were reviewed with the patient. She was able to demonstrate understanding of the use of epinephrine autoinjector. Avoid NSAIDs, friction, hot showers and alcohol which can worsen flushing and maxillary disease -Complete 24-hour urine test for an methylhistidine beta prostaglandin, serum tryptase level and CMP. -Continue to follow with PCP for management of diarrhea. Consider mold finisher referral with PCP for evaluation of diarrhea. 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 kiln furniture caster to review her symptoms and determine if and when any octreotide scan should be repeated to re- evaluate for carcinoid syndrome. # Elevated blood pressure - history of hypertension - Recommend continued monitoring and follow up with primary provider for further evaluation and management of elevated blood pressure - Patient has episodic angioedema. Recommend discussing with PCP about stopping errol inhibitor ie lisinopril and starting alternative since errol inhibitors can cause angioedema Orders Placed This Encounter Procedures ??? Tryptase ??? N-Methylhistamine, 24 Hr Urine ??? Metanephrines, Fractionated, urine, 24 hour ??? Comprehensive metabolic panel (non-fasting) ??? 2,3 Dinor 11 B-Prostaglandin, Urine Medication ordered or changed during this encounter, will not show discontinued medications Medications ??? cetirizine (ZYRTEC) 10 mg Tablet Sig: Take 1 tablet by mouth daily. Dispense: 90 tablet Refill: 3 Return in about 6 weeks (around 09/26/2018), or if symptoms worsen or fail to improve. eDH record was reviewed. Written instructions were reviewed and provided to the patient. No learning barriers were identified. The risks, benefits, alternatives and indications for the use of mediations prescribed or recommended during today's visit were reviewed with the patient. The patient understood and agreed with what was discussed. All questions were answered. documented in this encounter Plan of Treatment Upcoming Encounters Date Type Specialty Care Team Description 02/08/2022 TH Visit (TeleHealth) General Surgery Rylie Rea, ROAD MACHINERY INSPECTOR [facility] [place] [address] Keiry Chatterjee, RD [facility] [address] documented as of this encounter Procedures Procedure Name Priority Date/Time Associated Comments Diagnosis TRYPTASE Routine 08/15/2018 4:46 PM [place] Results for this EDT Diarrhea, procedure are i n unspecified type the results section. COMPREHENSIVE Routine 08/15/2018 4:46 PM [place] Results for this METABOLIC PANEL EDT Diarrhea, procedure ar e in (NON-FASTING) unspecified type the result s section. documented in this encounter Results (ABNORMAL) Comprehensive metabolic panel (non-fasting) (08/15/2018 4:46 PM EDT) P athologist Signature Glucose Lvl 104 65 - 199 [facility] mg/dL [facility] Comment: Diabetes: >=200 mg/dL plus symp toms BUN 21 (H) 8 - 18 mg/dL [facility] Creatinine 0.92 0.70 - 1.20 mg/dL [facility] Sodium 142 135 - 145 mmol/L [facility] Potassium 3.4 (L) 3.5 - 5.0 mmol/L [facility] Comment: Please note: ??Patients with WBC >100,00 0 may have falsely elevated Potassium levels. ??For accurate Potassium quantif ication in these patients send serum separator tube (gold top) for subsequent determinations. ??Contact the Clinical Chemistry Laboratory if there are any qu estions. Chloride 104 98 - 107 mmol/L [facility] CO2 26 22 - 31 mmol/L [facility] Anion Gap 12 5 - 15 mmol/L [facility] Calcium 9.8 8.5 - 10.5 mg/dL [facility] Total Protein 7.1 6.1 - 8.0 gm/dL [facility] Albumin 4.4 3.2 - 5.2 gm/dL [facility] AST 22 0 - 30 unit/L [facility] ALT 24 0 - 30 unit/L [facility] Alk Phos 50 40 - 104 unit/L [facility] Total Bilirubin 0.2 0.2 - 1.3 mg/dL [facility] Estimated GFR 74 >=60 mL/min/1.73 m?? [facility] Comment: The eGFR was calculated using the CKD-EP I equation. As with all creatinine based estimates of kidney function, eGFR values calculated with the CKD-EPI equation are not accurate in patients wi th acute kidney failure, extremes of body mass or the acutely ill. [email or web address] eGFR 85 >=60 mL/min/1.73 m?? [facility] Comment: The eGFR was calculated using the CKD-EP I equation. As with all creatinine based estimates of kidney function, eGFR values calculated with the CKD-EPI equation are not accurate in patients wi th acute kidney failure, extremes of body mass or the acutely ill. [email or web address] Specimen Anatomical Collection Method Collection Time Receive d Time (Source) Location / / Volume Laterality Blood specimen 08/15/2018 4:46 PM 019 4:59 (specimen) EDT PM EDT Resulting Agency Comment Spec In Lab Irma Schroeder MD CHEMISTRY ORDERABLES Performing Organization Address City/State/ZIP Code Phon e Number [address] Tryptase (08/15/2018 4:46 PM EDT) P athologist Signature Tryptase 9.0 <=11.1 [facility] ng/mL [facility] Comment: Total tryptase concentrations that are p ersistently greater than 20 ng/mL may be consistent with systemic mastocytosis . Specimen Anatomical Collection Method Collection Time Receive d Time (Source) Location / / Volume Laterality Blood specimen 08/15/2018 4:46 PM 019 7:27 (specimen) EDT AM EDT Resulting Agency Comment Spec In Lab Irma Schroeder MD CHEMISTRY ORDERABLES Performing Organization Address City/[facility]/[place] [address] documented in this encounter Visit Diagnoses Diagnosis [place] Diarrhea, unspecified type Angioedema, initial encounter documented in this encounter Care Teams Software Release Manager Relationship Specialty Start Date End Date Huyen Ramon DO PCP - General Family Medicine 04/05/[address] [place] [address] documented as of this encounter
--- OUTSIDE RECORDS SUMMARY | 2022-02-03 02:30 | XMS_ITS | Encounter Summary ---
:1970 Author Organization [facility] Address [facility] [place] [address] Care Team Providers Name Role Phone NicaHuyen urena Caitlin MOORE Primary Care Provider Reason for Visit Reason Comments Follow-up results Encounter Details Date Type Department Care Team Description 10/02/2018 Office Visit Allergy [place] [facility] [place]ma Schroeder, Fl[place]; [facility] Diarrhea, unspecified type; Drive [facility] Angioedema, subsequent encou nter; [place], [place] Abnormal laboratory test; [address] ALLERGY AND Hypokalemia; [phone] IMMUNOLOGY Fatty infiltration of liver; [place], [place] [address] Elevated blood pressure reading; [phone] Hypertension, u nspecified type (Work) Social History Tobacco Use Types Packs/Day Years Used Date Never Smoker Smokeless Tobacco: Never Used Alcohol Use Standard Drinks/Week Comments No 0 (1 standard drink = 0.6 oz pure alcoho l) Sex Assigned at Date Recorded Not on file documented as of this encounter Last Filed Vital Signs Vital Sign Reading Time Taken Comments Blood Pressure 142/88 10/02/2018 10:34 AM EDT Pulse 67 10/02/2018 10:34 AM EDT Temperature - - Respiratory Rate 18 10/02/2018 10:34 AM EDT Oxygen Saturation 100% 10/02/2018 10:34 AM EDT Inhaled Oxygen Concentration - - Weight 108.4 kg (239 lb) 10/02/2018 10:34 AM EDT Height 163.8 cm (5' 4.49) 10/02/2018 10:34 AM EDT Body Mass Index 40.41 10/02/2018 10:34 AM EDT documented in this encounter Patient Instructions Patient InstructionsIrma Schroeder MD - 10/02/2018 10:30 AM EDT - Avoid NSAIDs ( ie aspirin, ibuprofen, naproxen, Motrin, Aleve, Advil) - Avoid friction, hot showers, alcohol ?? - Continue Zyrtec 10mg once daily - Always have epinephrine autoinjector available. Call 911 and go to the local ER after administering it. ?? - Complete 24 hour urine tests and tryptase level checked during a flare. Lab slips attached. Please request ER provider to check a tryptase level. ?? - continue to follow up with PCP for management of diarrhea, flushing, high blood pressure, other medical issues and wellness. Discuss with PCP about switching your blood pressure medications to alternatives, especially the hydrochlorothiazide. ?? - Elevated blood pressure- Recommend continued monitoring and follow up with primary provider for further evaluation and management of elevated blood pressure. - Follow up with socket puller - [place] [facility] [place] [facility]- cod clerk or lead portfolio manager documented in this encounter Progress Notes Irma Schroeder MD - 10/02/2018 10:30 AM EDT Chief Complaint Patient presents with ??? Follow-up results Summary of outside records: September 20, 2018 CT abdomen is completed at [facility]. Interpreted by Dr. Huyen Ramon. There was mild fatty infiltration of the liver and mild degenerative disc changes and degenerative changes at the inferior SI joints. No evidence of adrenal mass, adenopathy or acute abnormality. September 06, 2018 beta prostaglandin 24-hour urine collection was within normal range at 1115 pg/mcg creatinine and 24 hour n- Methlylhistamine level at 101 mcg/g Cr. September 17, 2018 Normal creatinine, sodium and potassium. September 13, 2018 Creatinine elevated at 10.09 mg/dL ( ULN 1.02). Low potassium at 3.4 mmol/L ( LLN 3.5). Normal sodium level. September 09, 2018. Creatinine level was normal. Potassium was low at 3.3 mmol/L with a lower limit of normal of 3.5. Normal sodium level. 09/08/18 24 hour urine metanephrines 138 mcg/24 hr WNL for normotensive or hypertensive. 24 hour urine normetanephrine 502 mcg/24 hour ( elevated for normotensive, ULN 451 and WNL for hypertensive (<900)) 24 hour urine total metanephrines 640 mcg/ 24 hour ( elevated for note normotensive, ULN 561, and WNL for hypertensive ( < 1300) HPI. Monisha Das Is here today for a follow up visit. Last encounter in this section was on 08/15/2018 Accompanied by her partner, Jayne. The patient had her last severe bout of diarrhea in July and feels like she may be starting to havinganother bout of diarrhea. She is having flushing daily. She had injected conjuctivae this morning. She has daily fatigue. She has had muscle shakiness and tremors. She has a history of hypokalemia and is receiving IV potassium a few times per week. She continues to take HCTZ and errol inhibitor for her HTN. The patient feels her ankle swelling b/l has improved. Spell in July 2018: Symptoms included flushing, diarrhea, palpitations, sweats. No [...] continued to take potassium 20 mEq BID. Patient has elevated BP today. She took her lisinopril and HCTZ today. No vision changes, headache, SOB or chest pain. She started the Zyrtec 10mg daily four days ago, because she just started to have diarrhea. She was holding off on starting the Zyrtec to try to complete the testing during a flare. To date, she has not noticed any change in symptoms on the Zyrtec. Has EpiPen. Not available at today's visit. She is scheduled to see endocrinoloigst at the end of October. She has a hitory of elevated 24 hour urine 5-HIAA with normal octreotide scan on 10/15/15. She has a history of Marylou's disease. She hasher TSH checked once per year and it has been normal per patient. She has tired stopping the HCTZ for an unknown amount of time without any change in her symptoms. Itwas restarted because of fluid overload. She had diarrhea, flushing and heartburn prior to starting omeprazole. She has seen GI in the past. Last seen on 10/24/17 by Essie Zhang APRN. Diagnosed with likely secretory diarrhea. Concern for neuroendocrine tumor but wo/u was negative. She was started colestipol( no improvement per patient). No change with FODMAP diet. Recommended endoscopy. Also seen for dysphagia. 12/05/17: DIAGNOSIS A - Duodenum, biopsy: - Duodenal mucosa, negative for diagnostic abnormality. B - Esophagus, biopsy: - Squamous mucosa negative for diagnostic abnormality. C - Colon, random, biopsy: - Colonic mucosa, negative for diagnostic abnormality. She has chronic leukocytosis and saw Dr. Almanza on 07/29/18. He felt it was unlikely that she had a hematologic cause for her recurrent symptoms. Per the patient, she had a tryptase level checked at [facility] and it was 9.3ng/mL. She has a standing tryptase lab at [facility] to be drawn prn symptoms of MCAS. She has GERD and takes omeprazole. She does not have heartburn or reflux on PPI. 10/15/2015 Octreotide scan - No somatatin receptor positive tumor is detected. Family history: No family history of mastocytosis, pheochromocytoma or carcinoid syndrome. Review of Systems: All other systems reviewed and negative, except as noted below. Review of Systems Eyes: Positive for redness. Skin: Positive for rash. Gastrointestinal: Positive for diarrhea. All other systems reviewed and are negative. Allergies, medications, past medical/ surgical history were reviewed and updated in [facility]. Allergies: Atropine and Spironolactone Medications: Outpatient Medications Marked as Taking for the 10/02/18 encounter (Office Visit) with Irma Schroeder MD Medication Sig Dispense Refill ??? EPINEPHrine 0.3 mg/0.3 mL Auto-Injector Inject 0.3 mg into the muscle once as needed (allergic reaction( difficulty breathing, throat swelling, lightheaded)). Inject 0.3 mL IM once as needed for allergic reaction (Throat tight, difficulty breathing). Call 911 as directed. ??? cetirizine (ZYRTEC) 10 mg Tablet Take 1 tablet by mouth daily. (Patient not taking: Reported on 10/16/2018) 90 tablet 3 ??? potassium chloride (K-DUR/KLOR-CON) 20 mEq Tab Sust.Rel. Particle/Crystal Take 40 mEq by mouth 2times daily. ??? venlafaxine (EFFEXOR) 37.5 mg Tablet Take 37.5 mg by mouth daily. ??? ondansetron (ZOFRAN) 4 mg Tablet Take 4 mg by mouth every 8 hours as needed for Nausea. ??? [DISCONTINUED] UNABLE TO FIND Med Name: elaine vitamin multivitamin and mineral ??? gabapentin (NEURONTIN) 300 mg Capsule 300 mg tid ??? omeprazole (PRILOSEC) 40 mg Capsule, Delayed Release(E.C.) Take 40 mg by mouth daily. ??? pramipexole (MIRAPEX) 0.25 mg Tablet Take 0.25 mg by mouth daily. One tab pm/ 2 tabs qhs ??? lisinopril (PRINIVIL;ZESTRIL) 20 mg Tablet Take 20 mg by mouth 2 times daily. Reported on 06/15/2016 ??? buPROPion (WELLBUTRIN XL) 300 mg Tablet Sustained Release 24 hr Take 300 mg by mouth every morning. ??? topiramate (TOPAMAX) 100 mg Tablet Take 50 mg by mouth daily. ??? hydrOXYzine (ATARAX) [...] DIAGNOSTIC performed by Luther Narayan MD at [facility] ENDOSCOPY ??? PRO ENDOSCOPIC US EXAM, ESOPH N/A 12/05/2017 UPPER EUS- ENDOSCOPIC ULTRASOUND performed by Luther Narayan MD at [facility] ENDOSCOPY ??? PRO UPPER GI ENDOSCOPY, BIOPSY N/A 12/05/2017 EGD WITH BIOPSY (WRVU 2.49) performed by Luther Narayan MD at [facility] ENDOSCOPY ??? TONSILLECTOMY Family history: Family History [...] on phone: None Gets together: None Attends caodaism service: None Active member of club or organization: None Attends meetings of clubs or organizations: None Relationship status: None ??? Intimate partner violence: Fear of current or ex partner: None Emotionally abused: None Physically abused: None Forced sexual activity: None Other Topics Concern ??? None Social History Narrative ??? None Physical Exam: Vital signs reviewed. Most Recent Vitals: 10/02/18 1034 BP: 142/88 Pulse: 67 Resp: 18 SpO2: 100% Normal Except General: - No [...] Judgement and insight intact Tests or Procedures: Component Latest Ref Rng & Units 08/15/2018 07/29/2018 Glucose Lvl 65 - 199 mg/dL 104 BUN 8 - 18 mg/dL 21 (H) Creatinine 0.70 - 1.20 mg/dL 0.92 Sodium 135 - 145 mmol/L 142 Potassium 3.5 - 5.0 mmol/L 3.4 (L) Chloride 98 - 107 mmol/L 104 CO2 22 - 31 mmol/L 26 Anion Gap 5 - 15 mmol/L 12 Calcium 8.5 - 10.5 mg/dL 9.8 Total Protein 6.1 - 8.0 gm/dL 7.1 Albumin 3.2 - 5.2 gm/dL 4.4 AST 0 - 30 unit/L 22 ALT 0 - 30 unit/L 24 Alk Phos 40 - 104 unit/L 50 Total Bilirubin 0.2 - 1.3 mg/dL 0.2 eGFR >=60 mL/min/1.73 m?? 74 eGFR >=60 mL/min/1.73 m?? 85 WBC 4.0 - 9.5 x10(3)/mcL 7.8 RBC 4.00 - 5.21 x10(6)/mcL 4.65 Hemoglobin 11.7 - 15.5 gm/dL 13.2 Hematocrit 35.7 - 45.8 % 39.0 MCV 82.6 - 94.4 fL 83.9 MCH 27.1 - 32.0 pg 28.4 MCHC 31.7 - 35.0 gm/dL 33.8 Platelets 145 - 357 x10(3)/mcL 353 RDWSD 37.0 - 46.0 fL 40.5 RDWCV 11.5 - 14.1 % 13.2 MPV 7.6 - 12.9 fL 9.6 nRBC % Auto % 0.0 nRBC Abs Auto 0.000 - 0.000 x10(3)/mcL 0.000 Neutrophils % % 50.5 Neutr Abs (ANC) 1.70 - 6.10 x10(3)/mcL 3.96 Lymphocytes % % 40.1 Lymphocytes Abs 0.9 - 3.2 x10(3)/mcL 3.2 Monocytes % % 5.2 Monocyte Abs 0.3 - 0.9 x10(3)/mcL 0.4 Eosinophils % % 3.6 Eosinophils Abs 0.0 - 0.4 x10(3)/mcL 0.3 Basophils % % 0.5 Basophils Abs 0.0 - 0.1 x10(3)/mcL 0.0 Immature Gran % % 0.10 Alfreda Gran Abs 0.00 - 0.04 x10(3)/mcL 0.01 Tryptase <=11.1 ng/mL 9.0 Impression Report Plan: # Flushing # Diarrhea # Angioedema # History of elevated 24 hour urine 5- HIAA with subsequent normal octreotide scan # Elevated 24 hour urine normetanephrines and total metanephrines with CT abdomen negative for adrenal mass - Mastocytosis or MCAS is unlikely with normal mast cell networks software consultant levels during an event. Patient she is on ERROL inhibitors which are associated with has a history of elevated carcinoid syndrome mediators, however, the octreotide scan was normal. The patient is on an ERROL inhibitor which is associated with angioedema. Since she has angioedema with these episodes, recommend she discuss with her primary discontinuing the ERROL inhibitor and starting an alternative. - She had elevated 24 hour urine metanephrines and total metanephrines with a negative CT scan of the abdomen for adrenal mass. Thus, it is unlikely that she has pheochromocytoma. Recommend she review her abnormal urine results with her socket puller as well. - Recently started cetirizine and it is too soon to know if it will be effective in controlling her symptoms. -Continue trial of cetirizine 10 mg once daily [...] understanding of the use of epinephrine autoinjector. - Avoid NSAIDs, friction, hot showers and alcohol which can worsen flushing -Complete 24-hour urine test for an methylhistamine, beta prostaglandin, serum tryptase level duringa flare -Continue to follow with PCP for management of diarrhea. Consider cod clerk referral with PCP for evaluation of diarrhea. 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 socket puller to review her symptoms and determine if and when any octreotide scan should be repeated to re- evaluate for carcinoid syndrome. - Discuss with PCP about [place] [facility] [place] [facility] GI or allergy to evaluate abdominal pain with flushing and diarrhea. # Hypokalemia - Differential includes medication induced ie HCTZ - PCP is monitoring. Normal K with last blood draw in August - continue to follow with PCP for management # Fat infiltration of the liver # Degenerative disc changes - Incidental findings on CT- abdomen - Normal LFT on 08/15/18 - Recommend follow up with PCP for management # Elevated blood pressure - history of hypertension - Recommend continued monitoring and follow up with primary provider for further evaluation and management of elevated blood pressure - Patient has episodic angioedema. Recommend discussing with PCP about stopping errol inhibitor ie lisinopril and starting alternative since errol inhibitors can cause angioedema Orders Placed This Encounter Procedures ??? Tryptase ??? 2,3 Dinor 11 B-Prostaglandin, Urine ??? N-Methylhistamine, 24 Hr Urine Return in about 3 months (around 01/02/2019), or if symptoms worsen or fail to improve, for flushing. e[facility] record was reviewed. Written instructions were [...] TH Visit (TeleHealth) General Surgery Rylie Rea, INLAYER SILVER [facility] [address] [id number] [address] Chatterjee, RD [facility] [place] [address] documented as of this encounter Visit Diagnoses Diagnosis Flushing Diarrhea, unspecified type Angioedema, subsequent encounter Abnormal laboratory test Other abnormal clinical finding Hypokalemia Hypopotassemia Fatty infiltration of liver Other chronic nonalcoholic liver disease Elevated blood pressure reading Elevated blood pressure reading without diagnosis of hypertension Hypertension, unspecified type documented in this encounter Care Teams Relay Dispatcher Relationship Specialty Start Date End Date Huyen Ramon DO PCP - General Family Medicine 04/05/[id number] [place] [address] documented as of this encounter
--- OUTSIDE RECORDS SUMMARY | 2022-02-03 02:30 | XMS_ITS | Encounter Summary ---
:1970 Author Organization [facility] [place] [address] Care Team Providers Name Role Phone Huyen Ramon DO Primary Care Provider Reason for Visit Consultation (Routine) - Specialty Diagnoses / Procedures Referred By Contact Refer red To Contact Behavioral Health / Diagnoses Obesity, unspecified morbid obesity Sara Dey, [facility] Weight and Wellness Procedures pre-bariatric counseling diet and psych counseling for bariatric surgery patient has BCBS [place] - 6 mo. 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 [phone] PRIMARY CARE [place], [place] [address] Social History Tobacco Use Types [...] - Inhaled Oxygen Concentration - - Weight 121.6 kg (268 lb) 07/23/2019 11:32 AM EDT Height - - Body Mass Index 45.29 10/16/2018 8:58 AM EDT documented in this encounter Patient Instructions Patient InstructionsLinda Cai MD - 07/23/2019 9:30 AM EDT Intake appointment with our health academic coach and dietitian to be scheduled. See me in about a month. ( ) I recommend that you attend bariatric info session ( x) you have already attended a bariatric info session You are pursuing bariatric surgery pathway. For patients pursuing bariatric surgery, the first psychologist visit is done after 2 parts identification technician visits. There is also a group called the ACT group which works on emotional eating. I do not think you need this group at this time. ( ) I requested that you be put on the waiting list for the ACT group. ( ) I requested that you be put on the waiting list for our psychologist. (x ) bariatric pathway. Initial goals: Tracking: You want to do this on Fitbit Activity: You are already walking. Goal you set today was to do upper body resistance exercise twiceweekly starting with 5 to 10 minutes each time. Nutrition: Goal use at today was to stop eating after dinner. Make sleep a priority. You have already had a sleep study which shows that you do not have sleep significant sleep apnea. Goal is for loss of 5 to 10% of your initial weight in the first 6 months with medical therapy. Bariatric surgery usually leads to much greater amounts of weight loss. Please review your AVS at home. For every visit please be prepared to tell me everything you ate anddrank the day before If you have questions or concerns please send a PubNub message or call the office. I am currently if the office 3 days per week. All messages go to our nurse first. If you send a message about medication, be sure to specify which medication you are referring to andthe exact dose that you are taking and how often, and which pharmacy you want to use. Please allow at least 3-5 business days for a medication refill. Lab work: I will ask our special education secretary to try to get recent labs from your PCP we will need order bariatric labs in the future. Biobank: ( ) yes (x ) not available at present References which I recommend: Further references are listed in the new patient packet Anxiety and depression The Happiness Trap by Faustino Gallo (really about dealing with anxiety and depression, very readable). The Mindfulness and acceptance workbook for anxiety By Blaine Simpson. Mindful eating: What are you Hungry For? By Mao Rodriguez The Mindful Diet by Shauna Truong and the [facility] group. Emotional eating: End Emotional Eating by Keiry Rondon Calming the Emotional Storm Christa Poole Food choices/glycemic index (how much sugar is in foods) : Always hungry? by Dr. Praful Pena. Medications which can help with weight loss in combination with lifestyle changes (healthy diet and activity): Not all of these medications would be right for you. The most effective anti-obesity medication is Qsymia which is a combination of phentermine and topiramate. We also sometimes give phentermine and topriamate separately for weight loss. Phentermine is astimulant. It can increase anxiety and cause jitteriness and sleep disturbance in some patients. It has a very small potential for abuse. It is a controlled substance. Regarding phentermine alone: Phentermine is approved by the FDA for the purpose of weight loss. This medication should be avoided in patients with a history of cardiovascular disease (including prior heart attack, known aneurysms or prior strokes), as well as a history of uncontrolled high blood pressure or tachyarrhythmias (fast heart rate) . It should also be avoided in patients with hyperthyroidism, seizures, severe anxiety, narrow angle glaucoma or bipolar disorder. Patients on this medication should be monitored with regards to blood pressure and heart rate. Potential side effects include (but are not limited to) palpitations, jitteriness, headaches, insomnia, constipation and eye pain. Patients should take phentermine before breakfast. They should avoid energy drinks, decongestants, and excessive caffeine while on phentermine. They should monitor their blood pressure at home (and be encouraged to purchase a blood pressure cuff). Topiramate is used for treating seizures, migraine headaches, and can be helpful for weight loss. For weight loss we start with very small doses which are usually well-tolerated, however it sometimes causes fatigue or mental fogginess. It should not be used in someone who has had kidney stones. Two m ethods of contraception and monthly tests are required on this medication. Contrave. This is a combination of the antidepressant bupropion and the opioid sydney naltrexone. Bupropion can be activating and sometimes causes anxiety. It can help with depression. The naltrexonesometimes causes nausea so we start with a very small dose. We avoid naltrexone plus bupropion in patients who have: Seizure disorder, severe anxiety, uncontrolled migraine disorder, atherosclerotic vascular disease, uncontrolled high blood pressure, chronic narcotic use, anorexia nervosa or bulimia nervosa. It can be helpful in patients who are smokers or patients with depression since bupropion can help with depression and can sometimes help with smoking cessation. We would stop Contrave in patients who are taking it who develop worsening migraines, uncontrolled high blood pressure, liver dysfunction, wo rsening depression, or suicidal ideation. Metformin is a medication used for diabetes and prediabetes which can also sometimes help with weight loss. Metformin is helpful for weight loss in about one third of patients who take it. It can be useful in slowing or helping to prevent the progression to diabetes. It can cause gastrointestinal sideeffects such as nausea and loose stool. If started at a low dose and increased gradually, it is usually tolerated. This medication has been around for more than 40 years and we have a lot of experiencewith it. We avoid metformin in people with severe kidney impairment or severe liver disease. Metformin can be helpful for people who gain weight on certain psychiatric medications, have polycystic ovary syndrome, have elevated fasting insulin, have metabolic syndrome or elevated fasting glucose (prediabetes). However it also help with weight loss in overweight patients who have none of these conditions. We recommend that patients take metformin take a B complex vitamin. There is a rare condition called lactic acidosis which can occur with metformin. Liraglutide , semaglutide (Victoza, Saxenda, ozempic) Liraglutide is a medication developed for diabetes which is also used for weight loss in people who do not have diabetes. Brand names are Victoza and Saxenda. This medication requires daily injection. Ozempic is given by injection or by pill. We only give liraglutide or semaglutide to people who have no personal or family history of medullary thyroid cancer, MEN type 2, or pancreatic cancer. ?? Discussion of potential risks and benefits needs to be done before using these meds in a patient with a history of pancreatitis. Side effects can include: GI upset (nausea, vomiting, diarrhea, constipation); these side effects normally improve after 2-3 weeks on the medication. Regarding oral semaglutide: start patients with 3 mg daily x 30 days then dose can be increased to 7mg daily. Can be started he day after liraglutide if switching from liraglutide. - Semaglutide oral tablets must be taken at least 30 minutes before the first food, beverage, or other oral medications of the day with no more than 4 ounces of plain water. Some of these meds are used off label for weight loss. With anti-obesity medication, loss of 5 to10% of weight is considered a good response. Patients needs to be seen regularly in the Weight and Wellness clinic (sometimes monthly at first and usually at least every 3 months) for monitoring while taking anti- obesity medication. None of these medications ( with the possible exception of metformin) are safe for use during . Anti-obesity medications only work when combined with diet and activity efforts. If the patient responds well to a medication and then that medication is stopped, usually the weight is re-gained. documented in this encounter Progress Notes Linda Cai MD - 07/23/2019 9:30 AM EDT [facility] TELEHEALTH VIDEO VISIT DONE DUE TO COVID-19 SITUATION PREVENTING NON-URGENT IN-PERSON VISITS AT PRESENT Note; after visit I saw DVT and angioedema on outside problem list. Need to ask patient about this at next visit! Patient Name: Monisha Das Date of : 1970 Age: 48 y.o. Dear Huyen Ramon, DO Thank you for referring Monisha Das to the [facility] for a consultation for obesity management. I reviewed past records including notes, labs, and other evaluation and discussed them with the patient. SUMMARY OF VISIT AND ASSESSMENT: Wants to pursue bariatric surgery Monisha Das presents to the [facility] for a consultative visit regarding obesity management. The patient has WHO ClassObesity defined by a BMI of over 40. In addition, Monisha Das has co-morbidities associated with obesity including established obesity-related chronic disease including hypertension, type 2 diabetes, reflux esophagitis , hypertension, depression, migraines, edema. Patient says: In December had flash pulmonary edema, was seen at [facility]. Got IV lasix and bipap.Had cardiac echo, everything was okay.. Says records about this were sent to bariatric. (I looked through scanned documents after visit and could not find anything about this). Other medical problems on problem list and confirmed with patient: Restless legs, alopecia areata, history of kidney stone (incidental finding), irritable bowel type problem with diarrhea, history of preeclampsia in 2 pregnancies, hypokalemia, currently well controlled, hypomagnesemia, well controlled. In PCP note it mentions history of sustained VT during hypokalemia episode. Patient says that this is questionable and she was told that it was not definite that this was VT. Surgical history: x3. Endometrial ablation x2 Status post tonsillectomy. ?? Obesity is caused by hormonal disorder of fat regulation and insulin is the major hormone that drives weight gain. Obesity is a multifactorial disease, and in this case, the following factors could be potential contributors: ?? Genetics and Epigenetics ?? Insulin resistance + recently diagnosed type 2 diabetes mellitus ?? Timing of meals: + ?? Eating too much during day: eating biggest meal at night + ?? Too much sugar and too much highly refined carbohydrates (processed foods)--consumption of foods that are high in sugar and processed that can lead to metabolic/hormonal changes that can increase body fat by causing insulin resistance. - ?? Low intake of fat fighting foods (fruits, vegetables, legumes, nuts, seeds, quality protein) - ?? Medications: pt is taking the following medications which can be associated with weight gain: Gabapentin. Says she really needs this for pain and attempts at weaning it down have been unsuccessful. ?? Sleep Disturbance: She reports that she had sleep study which showed that she does not have significant sleep apnea ?? Circadian Pattern - ?? Disordered Eating ?? Inactivity ?? Stress and too much cortisol: the prolonged cortisol release associated with chronic stress is strongly correlated with the development of obesity + Following were dicussed: ?? Obesity is a chronic disease requiring residential management. ?? Obesity is associated with increased risk of adverse health and psychosocial consequences, metabolic disease as well as higher mortality. ?? We reviewed the overall goals for obesity management, which include improving the patient's health, quality of life, and body weight/composition ?? Discussed nature of obesity being a complex disease and heterogeneous. This leads to wide patientto patient variability of treatment. To match the therapy to the patient requires trial and error. DORA not done because this was a video visit. Plan: We discussed and agreed upon the pillars of obesity treatment: Discussed that 5-10% weight loss can improve patient's co-morbidi ties; Goal weight loss 26-27 pounds over 3-6 months Goals ? Do resistance exercise with bands or weights starting with twice weekly, 5 to 10 minutes per time. ??? Other (Enter personal goal) Tracking with fit bit ??? Stop eating after supper ?? I also recommend low-salt diet in view of chronic edema problem. ? Pharmocotherapy: If possible medications that promote weight gain should be avoided and medications that are weight-neutral or promote weight loss should be considered. ?? We discussed retrying metformin as an option; she also expressed interest in trying Ozempic. I cannot tell if this medication is covered under her insurance. I asked her to read the information thatI will be sending her via my DH and also the after visit summary about this medication and other medication options, and to let me know if she wants me to do a prescription for Ozempic. Discussed that sometimes a prior authorization is needed and sometimes a medication is excluded entirely. We discussed that gabapentin can promote weight gain and she was already aware of this; finds that she really needs it. She is not sure that she still needs the tramadol which she takes only about onceper week for severe restless leg. (Discussed that the combination of bupropion plus naltrexone can be helpful for weight loss; this is marketed under the name Contrave and we also give the 2 generics separately, however she would have to be off of the tramadol to try this.) She reports that she has had an iron infusion to try and get her ferritin above 75 for the restless leg syndrome. She says she also has iron in the multivitamin she takes. Since she has had a past kidney stone I would not recommend topiramate (although looks like she is taken this medication in the past). The following care pathway has been decided in discussion with the patient: [] Healthy Lifestyle Program: The [place] Preventive Services Task Force (USPSTF) recommends intensive behavioral therapy to treat obesity. Patient is interested in our Healthy Lifestyles Program. We are a [facility] approved center as a Diabetes Prevention Program, a year long program to assist with behavior change. Meets once a week for 16 weeks, then 1 meeting a month for 12 months. The rest of the care team will assess in eligibility for HLP and final care pathway will be decided at next provider visit. [] Obesity Medicine Pathway [x] Bariatric Surgery Pathway Insulin resistance: Type II Diabetes. Last hemoglobin A1c I see in her record is 6.8 Complications: None Current medications: See above, tried metformin Blood pressure: She reports is usually well controlled; yesterday was 130/92 at home. On several medications for this. CrCl cannot be calculated (Patient's most recent lab result is older than the maximum 30 days allowed.). Liver function: Lipid risk assessment: The ASCVD Risk score (Fishs Eddy DC Jr., et al., 2013) failed to calculate for the following reasons: Cannot find a previous HDL lab Cannot find a previous total cholesterol lab Mental Health: She reports depression is well controlled. CHIEF COMPLAINT: Management of excess weight HISTORY OF PRESENT ILLNESS: Monisha Das is a 48 y.o. female with obesity presents for intensive behavior modifications ofobesity and co-morbid conditions at [facility]. Wants to pursue bariatric surgery. 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 I reviewed the online survey which she completed. I also looked at some of the information and scanned documents including her 7-day diet log and start weight which is 268 pounds and weight graph. Weight History: Not overwt as a child.. Maybe was on the higher side of normal. As young adult, early 20s was 135 lbs at 5'5. Had twins in 1995 age 24. Only gained 32 lbs, was able to lose. Then something happened. From that point on , steadily gained. Has always been active. Walking doing moderateexercise daily. Eating habits: generally practice what I preach. Has never binged. After freshman year of college had put on 15 lbs and that triggered disordered eating patterns, (no vomiting). At thattime was eating 1000 divina per day, running 3 miles twice per day. Got down to 125 lbs. Siince that timed stops eating before feels full. Does not like the feeling of being full. Over the years has tried a lot of things for weight loss. Best was WW or calorie counting. ' Right now I think my needs are around 2200 to maintain'. I am not eating 1200 divina per day so would not expect to be losing. [facility] Initial Responses 07/22/2019 URICA - Readiness Score 8.66 (Contemplation State) WEL-SF Total Scores 80 PROMIS 6B Scores 44.2 PHQ-2 SubScore 0 (Brief screen negative) GAD2 Subscore 0 (Brief screen negative) PROMIS 10 Physical Scores 47.7 PROMIS 10 Mental Scores 59 IPAQ-SF Scores 3 Total REAP-S Scores 37 TFEQ - Uncontrolled Eating (UE) 0 TFEQ-Cognitive Restraint (CR) 55.55 TFEQ-Emotional Eating 0 Food Insecurity Score 2 Philip Category I Result 0 Philip Category II Result 0 Philip Category III 1 (Positive) Philip Sleep Apnea Total 1 (Low Risk) Schooling Graduated from college Importance of making a change 10 - Very Important Confidence to make change 10 - Very Confident Most weighed 268 Age most weighed 48 Times lost 10 lbs or more 3 to 5 Most weight lost in one attempt 15 Lost weight how? Ate less food, Switched to food with less calories, Ate less fat, Ate fewer carbohydrates, Exercised, Ate more fruits, vegetables, salads, Ate less sugar, candy, sweets, Changed eatinghabits (didn't eat late at night, ate several small meals a day), Ate less junk food or fast food, Joined a weight loss program (ex: Weight Watchers, Cristina Juarez, HONEY, or Overeaters Anonymous), Followed a special diet (ex: Dr. Andrews, [facility], [facility]) Wearing tracking devices helped improve health Yes [...] exercise in a day No DPRP Score: 5 Monisha Das has had gradual weight gain due to the top 3 reasons which she identifies: It has been very confusing to me. I a.m. exercising and do not eat a lot. Bloodwork showed has thyroiditis in the past. Not currently hypothyroid but she wonders if she was hypothyroid after her first . We reviewed the above self efficacy. Importance: 10 confidence: 10 Previous anti obesity medications tried: None except recently tried metformin. Had diarrhea so triedtaking half of a 500 mg extended release capsule twice daily and still had diarrhea so stopped it.. Would like to try Ozempic. BIG WHY: one reason is that it is becoming harder to move around. I now have diabetes. I am worried about my life expectancy. Goal weight: 160 to 165lbs, hoping for 100 lb wt loss with bariatric surgery.. Nutrition: generally healthy, focuses on fruits and veg. More fruit than vegetables. Appetite: Normal. Wakes up hungry. Gets hungry every 3 to 4 hours. Eating out of: Hunger/ habit / boredom/stress/emotions? Emotional eating: No Stress: no. 3 weeks ago her mother of Covid. Noticed she was unable to eat. Boredom: no Habit: Has an evening snack habit. I am slightly hungry but could get away without it. Typical wouldbe 1/2 cup ice cream or an apple and pb. Satiety: Can feel full. Eating patterns: Mindless eating: no binge eating,: No grazing:no ,skipping of meals: no. Lately occ skipping lunch, having a late breakfast. night eating: + evening snack. Does not get out of bed to eat. 24 hour Diet Recall: tues Breakfast: Around 8:30 AM small banana, 1./2 oats cooked. Teaspoon of maple syrup. Coffee with sweetened chobani creamer Snack: Lunch:1 pm: 2 cups chicken broth, cup of sweet potato. Hunger =2 Snack: I realized I would not make it until dinner 4 PM; 16 wheat thins. 3 tbsp spreadable cheese. Dinner: 7 PM; 4 oz roasted chick. Green beans. Evening. Nothing Takes meds with lianne almond milk, has about six ounces Alcohol : Very rare. Says she realizes she could do better with added sugars. Realizes the sweetened creamer has sugar, and usually puts honey on an Samoan muffin. This AM had light eng muffin; I will probably will not have bread again today. Sleep: Had a sleep study in May. Showed that she does not have significant sleep apnea. Does not work nights. Movement: Does something aerobic every day. Walking outside for 1/2 hour. Might be beach body workout for 1/2 hour. Being active helps me feel better. I look forward to it. Does something 6 days Per week. Goal she thinks is reasonable: resistance work: Bands (has not yet received them) light weights or soup cans etc. Start 2 days per week, 5 to 10 minutes each time Has not received New patient packet Is ambulation limited most or all of the time? No Tolerance: she can climb a flight of stairs: yes. REVIEW OF SYSTEMS: Bolded responses below are answered positive CONSTITUTIONAL: fatigue, night sweats, fever, chills . Energy level generally good. Lower than 5 years ago. 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 CV: See HPI regarding question of sustained VT during hypokalemia episode and episode of flash pulmonary edema with normal cardiac work-up per patient. History of KS, previous PCI/ PTCA, cardiac surgery, Previous stress test/ECHO: murmur, palpitations, current chest pain, atrial fibrillation, palpitations, orthopnea, PND, edema, syncope Chart: Hypertension hyperlipidemia : was on the high side, trying to manage with diet . RESP: Asthma, Shortness of breath at rest, cough, COPD, or wheezing. NICOLAS. symptoms of sleep apnea. treatment for sleep apnea. In December had flash pulmonary edema, was seen at [facility]. Got IV lasix and bipap. Had cardiac echo. Says sent to bariatric. GI: GERD, under excellent control. If does not take omeprazole it is not under good ct=ontrol.Fatty liver, dysphasia, gastroparesis, early satiety, hernia, history of ulcer disease, other symptoms of GI bleeding,nausea,vomiting, diarrhea, constipation, abdominal pain, previous obesity surgery or abdominal surgeries : C sec : Renal disease, kidney stones Incidental finding., hematuria, stress incontinence. 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 3 pregnancies, 4 live births (had twins with first ). ENDO: Polyuria/polydipsia, Prediabetic, Diabetes, recently diagnosed., Thyroid disease. PCOS (infertility, irregular menstrual cycles/hirsutism/acne), gestational diabetes Cold intolerance, dry skin, dry/brittle hair, constipation. Excessive thirst. Proximal muscle weakness, stria on abdomen Musculoskeletal: Myalgias, Arthralgias, Arthritis, Gout Integumentary: Rash or bruising. Varicose veins. Edema. Skin breakdown/ulcers. Intertrigo: In summer. Acanthosis nigricans. Psychiatric: Eating Disorder: Binge Eating, Anorexia, Bulemia, Anxiety, depression, Bipolar DO, panic attacks, history of suicide attempt, addictions (gambling, excessive shopping, prolonged internet use), psychiatric hospitalization, history of alcohol abuse, history of recreational drug use Heme/Onc: Cancer, DVT/PE in past, excessive bruising or bleeding. Lymphadenopathy. Transfusion history. Anemia. Allergic/ Immun: use of steroid/ immunosuppressant for chronic condition Latex, food or medication allergies: as per allergy list Other: smoker within 1 year. Current smoker, never smoker, quit smoking PAST MEDICAL HISTORY Medical and Surgical History: Reviewed anesthesia history (per patient): denies untoward events Family History: Reviewed; see details in PCP note and scanned documents. No one in family with major wt issues. Diabetes: Grandfather. Early heart disease: mother's cousin Social History: Reviewed and updated in eD. Grew up in [place], [place]. Went to [employer]. After college moved back to [place]. Then moved in 2001 to [facility]. Kids are healthy, twins 24;18, 14. Jayne is her partner; relationship is good. No abuse. VITAL SIGNS: Weight at home is 268 Lbs. No family hx med thyroid cancer. Last 5 weight values: Wt Readings from Last 5 Encounters: 10/16/18 113.6 kg (250 lb 6.4 oz) 10/02/18 108.4 kg (239 lb) 08/15/18 108.4 kg (239 lb) 07/29/18 111 kg (244 lb 12.8 oz) 12/05/17 108 kg (238 lb) PHYSICAL EXAM: Gen: Monisha Das is a pleasant,engaged, appropriate woman who is alert Psych:Pleasant, conversant, normal affect, cognition. PREVIOUS LABS AND IMAGING: Reviewed I spent a total of minutes with the patient 60 minutes of which were spent in [id number] discussion/counseling described above re obesity, nutrition and activity as well as obesity related co-morbidities, treatment options were discussed including intensive lifestyle intervention, pharmacotherapy and bariatric surgery with risks and advantages outlined for each. documented in this encounter Plan of Treatment Upcoming Encounters Date Type Specialty Care Team Description 02/08/2022 TH Visit (TeleHealth) General Surgery Rylie Rea, PRODUCT LINE MANAGER [facility] [place] [address] Keiry Chatterjee, RD [facility] [place] [address] documented as of this encounter Goals Goal [...] (BMI) of 45.0 to 49.9 in adult History of surgical procedure Other postprocedural status documented in this encounter Care Teams Fifth Grade Teacher Relationship Specialty Start Date End Date Huyen Ramon DO PCP - General Family Medicine 04/05/[address] [place] [address] documented as of this encounter
--- OUTSIDE RECORDS SUMMARY | 2022-02-03 02:30 | XMS_ITS | Encounter Summary ---
:1970 Author Organization [facility] [place] [address] Care Team Providers Name Role Phone Huyen Ramon Primary Care Provider Encounter Details Date Type Department Care Team Description 07/24/2019 Notes Only Weight and Wellness at Linda Cai MD [facility] [address] [facility] [place] [address] [place] [address] [phone] (Wo rk) Social History Tobacco Use Types Packs/Day Years Used Date Never Smoker Smokeless Tobacco: Never Used Alcohol Use Standard Drinks/Week Comments No 0 (1 standard drink = 0.6 oz pure alcoho l) Sex Assigned at Date Recorded Not on file documented as of this encounter Progress Notes Linda Cai MD - 07/24/2019 4:53 PM EDT Images from the original note were not included. Conversation: More questions (Newest Message First) July 24, 2019 ? 8:06 AM Forest Snyder, RN routed this conversation to Me July 23, 2019 Monisha Das to Me ?? 5:18 PM I never had angiodema. We think someone misnamed my edema. I have never had a DVT. I was in the hospital a few times with electrolyte abnormalities and they give you DVT prophylaxis. They give it to everyone pretty much who is hospitalized. I will get your the ER note from the flash pulmonary edema. Me to Monisha Das ?? 5:12 PM As I was finishing your note, I saw angioedema and DVT on an outside problem list. Please fill me in about these. ?? Also I could not find anything from [facility] about work-up of flash pulmonary edema in December; could you please call them and request that these records be sent to me at weight and wellness clinic. If I receive them I will put them in scanned documents so the bariatric surgery folks can see this information also. ?? Dr. Cai Last read by Monisha Das at 5:45 PM on 07/23/2019. This encounter is not signed. The conversation may still be ongoing. documented in this encounter Plan of Treatment Upcoming Encounters Date Type Specialty Care Team Description 02/08/2022 TH Visit (TeleHealth) General Surgery Rylie Rea M, TONGUE CARRIER [facility] [place] [address] Keiry Chatterjee, RD [facility] [place] [address] documented as of this encounter Goals Goal [...] on filedocumented in this encounter Care Teams Java Development Manager Relationship Specialty Start Date End Date Huyen Ramon DO PCP - General Family Medicine 04/05/[address] [place] [address] documented as of this encounter
--- OUTSIDE RECORDS SUMMARY | 2022-02-03 02:30 | XMS_ITS | Encounter Summary ---
:1970 Author Organization [facility] [place] [address] Care Team Providers Name Role Phone Huyen Ramon DO Primary Care Provider Reason for Visit Reason Comments Skin Check Consultation (Routine) - Specialty Diagnoses / Procedures Referred By Contact Refer red To Contact Dermatology Diagnoses Disorder of the skin and subcutaneous tissue, unspecified New lesions. Nodular papules w/o exudate or pain along LE Huyen Ramon DO Hammer, Charles J, MD Procedures Consult [address] [place], [place] DERMATOLOGY [address] [place] [address] Fax: Referral ID Status Reason Start Date Expiration Date Visits V isits Requested Authorized [id number] Consult, Test 11/20/2018 05/23/2019 6 6 & Treat PCP Updated and/or Approved Encounter Details Date Type Department Care Team Description 03/18/2019 Office Visit Dermatology at [facility] Stucco keratosis; [place] Seborrheic keratosis; [address] Dermatofibroma; [facility] DERMATOLOGY Alopecia totalis [place], [place] [id number] [phone] Social History Tobacco Use Types Packs/Day Years Used Date Never Smoker Smokeless Tobacco: Never Used Alcohol Use Standard Drinks/Week Comments No 0 (1 standard drink = 0.6 oz pure alcoho l) Sex Assigned at Date Recorded Not on file documented as of this encounter Progress Notes [facility]et [facility]er MD - 03/18/2019 8:45 AM EST Problem: 1. Alopecia totalis, patient wearing hairpiece 2. History of chronic spongiotic hand eczema 3. New skin lesions of concern 4. Hospital dietitian Monisha follows up and has developed some new lesions on her legs that she like to have checked. Alsosylvai has facial erythema and erythema of the upper V of her chest. She flushes and blushes sometimes with a small glass of wine at her parents house, or sometimes with heat or exercise. I last saw Monisha in 2007 for her alopecia which has developed into totalis. For time she would lose her hair then grow it back, but after the of her last child, her hair was lost again and has not grown back since. She is now wearing a hair piece. Physical examination reveals a pleasant 48-year-old woman who has early stucco keratoses developing on her legs around her dorsum of the feet and around the ankles. She has several dermatofibromas developing on her legs. She has patchy erythema of the upper face and upper V of her neck consistent withpatch rosacea. She has no evidence of any malignant lesions. Assessment and plan: Stucco keratoses, along with a few seborrheic keratoses 1. Patient reassured about benign nature of these lesions 2. No treatment necessary Dermatofibromas 1. Discussed benign diagnosis 2. No underlying etiology or systemic association. Alopecia totalis 1. Discussed the research being done with a new ACRLO 1 inhibitors 2. For now continue hairpiece Facial upper chest erythema 1. Mild rosacea, patch type 2. Patients ethnic background is Eastern Ashkenazi. 3. Treatment for this is difficult. Recommend avoiding the precipitants. 4. Not particularly concerning to patient at this time. 5. Return to clinic here as needed Cc: Huyen Ramon DO documented in this encounter Plan of Treatment Upcoming Encounters Date Type Specialty Care Team Description 02/08/2022 TH Visit (TeleHealth) General Surgery Rylie Rea, JUVENILE COURT LIAISON [facility] [place] [address] Keiry Chatterjee, RD [facility] [place] [address] documented as of this encounter Visit Diagnoses Diagnosis Stucco keratosis Acquired keratoderma Seborrheic keratosis Other seborrheic keratosis Dermatofibroma Benign neoplasm of skin, site unspecifie d Alopecia totalis Other alopecia documented in this encounter Care Teams Stationary Steam Engineer Relationship Specialty Start Date End Date Huyen Ramon DO PCP - General Family Medicine 04/05/[address] [place] [address] documented as of this encounter
--- OUTSIDE RECORDS SUMMARY | 2022-02-03 02:30 | XMS_ITS | Encounter Summary ---
:1970 Author Organization [facility] [place] [address] Care Team Providers Name Role Phone Huyen Ramon DO Primary Care Provider Reason for Visit Consultation (Routine) - Closed Specialty Diagnoses / Procedures Referred By Contact Refer red To Contact Endocrinology Diagnoses Dehydration hx thyroiditis, + metanephrine in 24 hr urine Huyen Ramon, [facility] Endocrinology 3b DO [address] [place] [address] [place], [place] Phone: [phone] Referral ID Status Reason Start Date Expiration Date Visits V isits Requested Authorized [id number] Closed Consult, 09/24/2018 09/24/2019 1 1 Test & Treat [facility] Encounter Details Date Type Department Care Team Description 10/16/2018 Office Visit Endocrinology at [facility] Jcarlos Perez DO Diarrhea, unspecified [facility] type [facility] [place] [phone] ENDOCRINOLOGY [phone] DEPT [place] [address] Social History Tobacco Use Types Packs/Day Years Used Date Never Smoker Smokeless Tobacco: Never Used Alcohol Use Standard Drinks/Week Comments No 0 (1 standard drink = 0.6 oz pure alcoho l) Sex Assigned at Date Recorded Not on file documented as of this encounter Last Filed Vital Signs Vital Sign Reading Time Taken Comments Blood Pressure 140/102 10/16/2018 8:58 AM EDT Pulse 74 10/16/2018 8:58 AM EDT Temperature - - Respiratory Rate - - Oxygen Saturation - - Inhaled Oxygen Concentration - - Weight 113.6 kg (250 lb 6.4 oz) 10/16/2018 8:58 AM EDT Height 163.8 cm (5' 4.5) 10/16/2018 8:58 AM EDT Body Mass Index 42.32 10/16/2018 8:58 AM EDT documented in this encounter Progress Notes Jcarlos Barker DO - 10/16/2018 9:00 AM EDT Endocrinology Consult Patient Name: Monisha Das Date of : 1970 PCP: Huyen Ramon DO HISTORY OF PRESENT ILLNESS: Monisha Das is a very pleasant 47 y.o. female who presents for evaluation of a possible hormonal cause to her symptoms. She reports a 3-year history of spells of diarrhea, flushing and leg swelling. She states that she has undergone extensive testing and each specialist refers me to another specialist. Her most significant complaint is episodes of diarrhea. She states that approximately 75-80% of the time diarrhea occurs during her menses. Menses every 24-26 days. She reports the diarrhea is watery and having about 8-10 bouts per day during an episode. 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 She has been evaluated for a neuroendocrine tumor. She underwent an octreotide scan in 2016 (normal). She also underwent recent testing for pheochromocytoma revealing mild elevation in normetanephrine (500. However, she was taking venlafaxine at the time and furthermore she underwent a CT scan of her abdomen and pelvis which was unrevealing. She states that when the diarrhea started 3 years ago there were no new medications. She takes a daily multivitamin. Past medical history is significant for obesity, alopecia areata, hypertension, acid reflux, depression and migraines. REVIEW OF SYSTEMS: as per HPI, all other systems reviewed and negative Allergies Allergen Reactions ??? Atropine CIS - redness and bodily swelling ??? Spironolactone Rash Current Outpatient Medications on File Prior to Visit Medication Sig Dispense Refill ??? multivitamin (THERAGRAN) Tablet Take 1 tablet by mouth daily. ??? UNABLE TO FIND EPLERONONE 12.5 mg Dierectic ..daily ??? potassium chloride (K-DUR/KLOR-CON) 20 mEq Tab [...] 300 mg Capsule 300 mg tid ??? Magnesium 200 mg Tablet Take 400 mg by mouth daily. ??? omeprazole (PRILOSEC) 40 [...] 8 hours as needed for Itching. ??? hydrochlorothiazide (HYDRODIURIL) 25 mg tablet ??? EPINEPHrine 0.3 mg/0.3 mL Auto-Injector Inject 0.3 mg into the muscle once as needed (allergic reaction( difficulty breathing, throat swelling, lightheaded)). Inject 0.3 mL IM once as needed for allergic reaction (Throat tight, difficulty breathing). Call 911 as directed. ??? cetirizine (ZYRTEC) 10 mg Tablet Take 1 tablet by mouth daily. (Patient not taking: Reported on 10/16/2018) 90 tablet 3 ??? triamcinolone (ARISTOCORT) 0.5 % Cream Apply topically as needed. ??? [DISCONTINUED] fish oil-omega-3 fatty acids 1,000 mg Capsule Take 2 g by mouth daily. Reported on 06/15/2016 No current facility-administered medications on file prior to visit. Social History Socioeconomic History ??? Marital status: [...] on phone: None Gets together: None Attends spiritism service: None Active member of club or organization: None Attends meetings of clubs or organizations: None Relationship status: None ??? Intimate partner violence: Fear of current or ex partner: None Emotionally abused: None Physically abused: None Forced sexual activity: None Other Topics Concern ??? None Social History Narrative ??? None Family History Problem Relation Age of Onset ??? Asthma Daughter Family History: Sister with uterine cancer There is no family history of endocrine tumors PHYSICAL EXAM: BP (!) 140/102 Pulse 74 Ht 163.8 cm (5' 4.5) Wt 113.6 kg (250 lb 6.4 oz) BMI 42.32 kg/m?? GENERAL: Well nourished, well hydrated, in no distress. SKIN: normal in texture and temperature EYES: no thyroid eye signs, BETTY, cornea normal NECK: supple, no palpable nodule or goiter, no bruit, no tenderness, no lymphadenopathy CVS: S1 S2 heard, rhythm regular RS: clear breath sounds bilateral ABD: soft, BS heard, no organomegaly EXTREMITIES: No clubbing, no edema, no cyanosis, normal nails. No tremor on out- stretched hands. Impression: Monisha reports a 3 year history of spells including diarrhea, flushing and leg swelling. Her work uphas been extensive and unrevealing to date including an octreotide scan. Her symptoms and history are not consistent with a pheochromocytoma (which has been repeatedly excluding a normal CT scan). Serot onin products have been normal, but worthwhile to repeat immediately following a spell. Recommendations: Repeat 24 hour urine testing for 5HIAA We have reviewed our plan outlined above with the patient, and patient verbalized understanding. Allquestions were answered and most of the time was spent on counseling. Thank you for this consult, please do not hesitate to contact me with any questions. Jcarlos Barker DO, MS Copier Operatortechnical support agent Department of Medicine Section of Endocrinology [facility] cc: Huyen Ramon DO documented in this encounter Plan of Treatment Upcoming Encounters Date Type Specialty Care Team Description 02/08/2022 TH Visit (TeleHealth) General Surgery Rylie Rea, INSTALLER APPRENTICE [facility] [place] [address] Keiry Chatterjee, RD [facility] [place] [address] documented as of this encounter Visit Diagnoses Diagnosis Diarrhea, unspecified type documented in this encounter Care Teams Marketing Development Manager Relationship Specialty Start Date End Date Huyen Ramon DO PCP - General Family Medicine 04/05/[address] [place] [address] documented as of this encounter
--- OUTSIDE RECORDS SUMMARY | 2022-02-03 02:30 | XMS_ITS | Encounter Summary ---
:1970 Author Organization [facility] [place] [address] Care Team Providers Name Role Phone Sushil Loya MD Primary Care Provider [phone] Encounter Details Date Type Department Care Team Description 09/20/2015 Telephone Endocrinology at [facility] C Estefania Cooper, [place] [address] Social History Tobacco Use Types Packs/Day Years Used Date Never Smoker Sex Assigned at Date Recorded Not on file documented as of this encounter Miscellaneous Notes Telephone Encounter - Estefania Cooper RN - 09/21/2015 10:01 AM EDT Spoke with Dr Guzman who states that if Monisha is having worsening acute issues then she should be seen in the emergency room. Unfortunately the other testing is needed to be able to rule in or rule out an endocrine issue. Placed call back to Mary Campbell at PCP office states that she is going to call patient to recommend that she go to the emergency room for help. Telephone Encounter - Estefania Cooper RN - 09/21/2015 9:42 AM EDT Received call from Shante at PCP office. States that Monisha was seen here recently and they are concerned because her symptoms are getting worse. Placed call back to Shante as play writer spoke with patient yesterday and patient did not report any worsening symptoms. Spoke with Mary Campbell who states that Monisha has been trying to do the 24 hour urinecollections but has not had much success because her loose stools have become so frequent that she is having a hard time doing the collection. States that they are also worried about her being dehydrated because of all of this and her partner reported that she almost passed out twice yesterday. States that they don't believe that Monisha would report all of her symptoms as she does not usually she just ramirez through and then her family calls us and we have done all that we can do for her. StatesWe were hoping that since you were the last one that saw her that you would be able to tell her what to do. Let them know that will pass the information along to Dr Guzman but that the work up isnot complete as we are waiting for more results to come back so she may not have any answer now. Let them know that if Monisha is passing out that they should really encourage her to go to the emergencyroom. Nurse agrees with plan states we will tell her we were just hoping that Dr Guzman would be able to give some advice Will forward message to Dr Guzman for possible advice Telephone Encounter - Estefania Cooper RN - 09/20/2015 10:53 AM EDT Monisha calls in, wants to check in lab results. States she was in to see PCP last week and he indicated that they were not normal but didn't want to give the results to her. Monisha is also wondering ifsylvia can have the 24 hour urine collects done locally. Placed call to Monisha let her know she can do them locally. Let her know will pass the message on Mimi Guzman regarding the lab results. Let Monisha know Dr Nicole may need to the urine testingback before she has a definitive answer, but will check with her and let Monisha know. Monisha agrees with plan. documented in this encounter Plan of Treatment Upcoming Encounters Date Type Specialty Care Team Description 02/08/2022 TH Visit (TeleHealth) General Surgery Rylie Rea, CORPORATE ASSOCIATE [facility] [place] [address] Keiry Chatterjee, RD [facility] [place] [address] documented as of this encounter Visit Diagnoses Not on filedocumented in this encounter Care Teams Control Supervisor Relationship Specialty Start Date End Date Sushil Loya MD PCP - General General Internal Medicine 09/13/15 06/01/[address] [place] [address] documented as of this encounter
--- OUTSIDE RECORDS SUMMARY | 2022-02-03 02:30 | XMS_ITS | Encounter Summary ---
:1970 Author Organization [facility] [place] [address] Care Team Providers Name Role Phone Osiris Garcia APRN Primary Care Provider Reason for Visit Reason Comments GI Problem Consultation (Routine) - Closed Specialty Diagnoses / Procedures Referred By Contact Refer red To Contact Gastroenterology Diagnoses IBS-D Perez Connell [facility] [place] Gastro 4l Procedures Consult V, [facility] [address] [place] [id number] Referral ID Status Reason Start Date Expiration Date Visits Requ ested Visits Authorized [id number] Closed 08/08/2017 08/08/2018 1 1 Encounter Details Date Type Department Care Team Description 10/24/2017 Office Visit Gastroenterology at [facility] Sieglinger, Diarrhea, unspecified type; [facility] Zora Luther APRN Dysphagia, unspecified type; [place] [address] [facility] Gastroesophageal reflux dise ase, esophagitis presence not specified [phone] [place] [address] Social History Tobacco Use Types Packs/Day Years Used Date Never Smoker Smokeless Tobacco: Never Used Alcohol Use Standard Drinks/Week Comments No 0 (1 standard drink = 0.6 oz pure alcoho l) Sex Assigned at Date Recorded Not on file documented as of this encounter Last Filed Vital Signs Vital Sign Reading Time Taken Comments Blood Pressure 127/81 10/24/2017 1:53 PM EDT Pulse 78 10/24/2017 1:53 PM EDT Temperature - - Respiratory Rate - - Oxygen Saturation - - Inhaled Oxygen Concentration - - Weight 110.7 kg (244 lb) 10/24/2017 1:53 PM EDT Height 165.1 cm (5' 5) 10/24/2017 1:53 PM EDT Body Mass Index 40.6 10/24/2017 1:53 PM EDT documented in this encounter Patient Instructions Patient InstructionsSieglingerEssie APRN - 10/24/2017 2:00 PM EDT 1. Upper endoscopy/endoscopic ultrasound and colonoscopy 2. Stool studies at your convenience. If you do not hear from me within 2 weeks, please send me a message 3. Colestipol IGNORE THE LABEL 1 gram once daily for 2 weeks, then if needed increase to 2 grams once daily. DO NOT TAKE WITHIN 2 HOURS OF YOUR OTHER MEDICATIONS 4. Follow up approximately 2-3 weeks after upper endoscopy and colonoscopy documented in this encounter Progress Notes Essie Zhang APRN - 10/24/2017 2:00 PM EDT PROPERTY FIELD ADJUSTER: Essie Zhang APRN PCP: Osiris Garcia APRN REQUESTING PROVIDER: Osiris Garcia APRN REASON FOR CONSULTATION This is a 46 y.o. female with a history significant for HTN. I am seeing her as a new patient today in consult for IBS. GI PROBLEM LIST 1. IBS --COLONOSCOPY 03/14/14; AV malformation throughout colon. Serrated adenoma. --CT scan chest/abd/pelvis 09/2015; hiatal hernia, enlarged uterus. Otherwise normal. --OCTREOSCAN 10/15/15; FINDINGS: There is normal distribution of activity throughout the head, neck, chest, abdomen and pelvis. The CT attenuation map reveals enlargement of the uterus, most consistent with fibroids. ?? IMPRESSION No somatostatin receptor positive tumor is detected. HPI COMMENTS Has been following a low-FODMAP diet. Diarrhea. On a bad day may move bowels up to 5-8 times in a day. Denies abdominal pain. Abdominal cramping at times. Has been trying to limit fruits and vegetables. Fecal urgency. Currently having diarrhea two times per week. Occasional constipation approximately once a month. Denies blood and mucus in stool. Blood on the toilet paper. Food particles in stool. Colonoscopy in 2013 showed serrated adenoma was not having symptoms at the time of colonoscopy. Has been to ER with hypokalemia. [place] with diarrhea. 5HIAA and octreoscan was negative. CT scan in 2016 was normal. Denies unintentional weight loss. In fact, has been gaining weight. Will have to eat starches. Endorses acid reflux symptoms. Takes omeprazole once a day and this manages her symptoms. Has been taking this for approximately 4 years. She has been unable to stop taking the medication. Nocturnal symptoms of regurgitation several nights per week. Good appetite. Denies early satiety. Denies bloatingand gas. Denies chronic NSAID use. Denies anemia. Has had two choking episodes with solids. Coughing with liquids. Nasal aspiration. This has been occurring more often. Feels food become lodged. This has been occurring with solids. Currently having symptoms several times per week. Has not had a barium swallow done for this issue. Dicyclomine has been beneficial for this. Last colonoscopy in 2013 serrated adenoma. On 5 year plan. Endorses a thyroiditis. Had fecal fat, VIP, gastrin in the past. These were negative. Negative TTG/IgA. ROS Notable for the gastrointestinal symptoms as described above. CONSTITUTIONAL: Denies anorexia, fever, or unintended weight change EYES: Denies red or painful eyes ENT: Denies oral ulcers, dysphagia, odynophagia, globus. RESPIRATORY: See HPI. CV: Denies palpitations, chest pain. : Denies dysuria, urinary incontinence, or dyspareunia. MUSC/SKELETAL: Denies chronic joint pains or history of inflammatory arthritis. INTEGUMENTARY: Denies recent skin rash or lesions. NEURO: Migraines. PSYCH: Anxiety/depression ENDO: Denies frequent urination and excessive hunger or thirst. HEM/LYMPH: Denies easy bleeding or bruising. ALL/IMMUNO: Denies seasonal allergies, frequent colds. ALLERGIES Allergies Allergen Reactions ??? Atropine CIS - redness and bodily swelling CURRENT MEDICATIONS Medications reviewed and reconciled in e-DH Current Outpatient Prescriptions: ??? gabapentin (NEURONTIN) 300 mg Capsule, Bedtime, Disp: , Rfl: ??? multivitamin (THERAGRAN) Tablet, Take 1 tablet by mouth daily., Disp: , Rfl: ??? Magnesium 200 mg Tablet, Take by mouth daily., Disp: , Rfl: ??? cetirizine (ZYRTEC) 10 mg Tablet, Take 1 tablet by mouth daily., Disp: 90 tablet, Rfl: 3 ??? omeprazole (PRILOSEC) 40 mg Capsule, Delayed Release(E.C.), Take 40 mg by mouth daily., Disp: , Rfl: ??? pramipexole (MIRAPEX) 0.25 mg Tablet, Take 0.25 mg by mouth daily., Disp: , Rfl: ??? lisinopril (PRINIVIL;ZESTRIL) 20 mg Tablet, Take 20 mg by mouth 2 times daily. Reported on 06/15/2016, Disp: , Rfl: ??? b complex vitamins Tablet, Take 1 tablet by mouth daily., Disp: , Rfl: ??? fish oil-omega-3 fatty acids 1,000 mg Capsule, Take 2 g by mouth daily. Reported on 06/15/2016, Disp: , Rfl: ??? buPROPion (WELLBUTRIN XL) 300 mg Tablet Sustained Release 24 hr, Take 300 mg by mouth every morning., Disp: , Rfl: ??? topiramate (TOPAMAX) 100 mg Tablet, Take 100 mg by mouth daily., Disp: , Rfl: ??? hydrOXYzine (ATARAX) 25 mg Tablet, Take 25 mg by mouth 3 times daily as needed for Itching., Disp: , Rfl: ??? triamcinolone (ARISTOCORT) 0.5 % Cream, Apply topically as needed., Disp: , Rfl: ??? CIS Free Text Med - Children's Multi Vitamins, , Disp: , Rfl: ??? ferrous sulfate 325 mg (65 mg Iron) tablet, , Disp: , Rfl: ??? famotidine (PEPCID) 10 mg tablet, , Disp: , Rfl: ??? hydrochlorothiazide (HYDRODIURIL) 25 mg tablet, , Disp: , Rfl: ??? SERTRALINE HCL (ZOLOFT ORAL), , Disp: , Rfl: MEDICAL HISTORY Past Medical History: Diagnosis Date ??? GERD (gastroesophageal reflux disease) SURGICAL HISTORY Past Surgical History: Procedure Laterality Date ??? 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 Has 3 boys (one set of twins), 1 daughter HABITS Denies tobacco use. Rare alcohol use. Denies using other substances. FAMILY HISTORY Denies family history of celiac disease, esophageal cancer, stomach cancer, colon cancer, pancreaticor liver issues, and IBD. PHYSICAL EXAM: Most Recent Vitals: 10/24/17 1353 BP: 127/81 Pulse: 78 Height: Height: 165.1 cm (5' 5) Weight: Weight: 110.7 kg (244 lb) Body mass index is 40.6 kg/(m^2). GENERAL: Healthy-appearing in no acute distress. Appears stated age. Well nourished. SKIN: No lesions, rashes, lumps, or angiomas on exposed skin. NECK: No adenopathy. No thyromegaly. HEENT: PERRL, EOMI, mucosa clear without ulceration or lesions, normal Dentition LUNGS: Clear to auscultation bilaterally COR: Regular, normal S1 and S2 without murmurs. ABD: Tympanic. Normal active BS. Soft, non-distended. No bruits. No tenderness to deep palpation in all 4 quadrants. No organomegaly. EXT: No cyanosis, clubbing, or edema. NEURO: Alert and oriented to person, place, time, and situation. Cranial nerves II-XII intact. PSYCH: Mood appropriate. Good eye contact. Normal interaction. Answers all questions appropriately. LABS: Lab Results Component Value Date WBC 9.5 06/15/2016 HGB 13.6 06/15/2016 HCT 40.6 06/15/2016 MCV 82.7 06/15/2016 PLATELET 400 (H) 06/15/2016 Lab Results Component Value Date NA 139 06/15/2016 K 3.4 (L) 06/15/2016 CL 101 06/15/2016 CO2 23 06/15/2016 BUN 18 06/15/2016 CREATININE 0.87 06/15/2016 GLUCOSE 108 06/15/2016 CALCIUM 9.4 06/15/2016 Lab Results Component Value Date ALBUMIN 4.3 06/15/2016 No results found for: LIPASE Lab Results Component Value Date TSH 2.69 09/13/2015 ASSESSMENT 1. DIARRHEA She does not meet JOSEPH IV criteria for IBS. Ongoing diarrhea clinically behaving like a secretory diarrhea. Constellation of symptoms concerning for neuroendocrine tumor. She has had a comprehensive workup for neuroendocrine with negative VIP, 5HIAA, Gastrin, and octreoscan. Symptoms not improved withlow- FODMAP and low fiber diet. I would expect some improvement in an osmotic diarrhea with dietary changes. Last colonoscopy 2013. Recommend colonoscopy. She will be getting an EGD for dysphagia. Recommend addition of EUS to evaluate pancreas for insufficiency. Recommend colestipol for symptom management. We reviewed medication indications, administration, and side effects. Consider utility of HBT. Negative TTG/IgA, IgA. Will obtain stool studies including fecal calprotectin, stool culture, and c. Diff stool antigen. Ddx: infectious diarrhea, IBS, IBD, microscopic colitis, pancreatic insufficiency, SIBO/dysbiosis, BAM, neuroendocrine tumor, CD 2. DYSPHAGIA There seems to be an oropharyngeal component to her symptoms. We discussed the utility of barium swallow. I have sent a follow up message because we did not determine if this is something we will do prior to the EGD. There also seems to be an esophageal component to her symptoms. Recommend EGD. Currently taking PPI. May increase to twice daily prior to EGD. Approximately 50% of the time, esophageal dysphasia is related to poorly controlled acid reflux. Reports symptom improvement with dicyclomine, suggesting there may be an underlying motility disorder. Consider utility of HREM. Consider utility ofBravo pH. Ddx: oropharyngeal dysphagia, IEM, GERD, nutcracker esophagus, jackhammer esophagus. 3. ALBINO See above plan. Ddx: GERD, gastritis, gastropathy, FD, gastroparesis PLAN 1. Upper endoscopy/endoscopic ultrasound and colonoscopy 2. Fecal calprotectin, stool culture, C. Diff stool antigen. 3. Colestipol 1 gram once daily for 2 weeks, then if needed increase to 2 grams once daily. DO NOT TAKE WITHIN 2 HOURS OF YOUR OTHER MEDICATIONS 4. Follow up approximately 2-3 weeks after upper endoscopy and colonoscopy I have provided her with my contact information. She has been encouraged to contact me with any questions or concerns. TIME SPENT WITH PATIENT 55 minutes of this 61 minute visit were spent in [id number] discussion and counseling the patient as detailed per above. Signed, Essie Zhang APRN 10/25/17 7:18 AM Section of Gastroenterology & Hepatology [facility] documented in this encounter Plan of Treatment Upcoming Encounters Date Type Specialty Care Team Description 02/08/2022 TH Visit (TeleHealth) General Surgery Rylie Rea, [facility] [place] [address] Keiry Chatterjee, SAM [facility] [place] [address] Scheduled Orders Name Type Priority Associated Diagnoses Order S chedule COLONOSCOPY Procedures Routine Diarrhea, Unspec ified Type Ordered: 10/24/2017 Dysphagia, unspecified type Gastroesophageal reflux disease, esophagitis presence not specified UPPER GI ENDOSCOPY Procedures Routine Diarrhea, Uns pecified Type Ordered: 10/24/2017 Dysphagia, unspecified type Gastroesophageal reflux disease, esophagitis presence not specified documented as of this encounter Visit Diagnoses Diagnosis Diarrhea, unspecified type Dysphagia, unspecified type Gastroesophageal reflux disease, esophag itis presence not specified documented in this encounter Care Teams Kettle Hand Relationship Specialty Start Date End Date Osiris Garcia APRN PCP - General Internal Medicine 06/02/16 04/04/[address] [place] [place] [address] documented as of this encounter
--- OUTSIDE RECORDS SUMMARY | 2022-02-03 02:30 | XMS_ITS | Encounter Summary ---
:1970 Author Organization [facility] Address [place] [id number] Care Team Providers Name Role Phone Sushil Loya MD Primary Care Provider [phone] Reason for Referral Diagnostic Test (Routine) - Closed Specialty Diagnoses / Procedures Referred By Contact Refer red To Contact Radiology Diagnoses [place] Diarrhea Yarelis Guzman MD [facility] Rad Nuclear Med Procedures [facility] [place] [id number] [place] [id number] Referral ID Status Reason Start Date Expiration Date Visits V isits Requested Authorized [id number] Closed Specialty 10/01/2015 09/30/2016 1 1 Service Requested Reason for Visit Diagnostic Test (Routine) - Closed Specialty Diagnoses / Procedures Referred By Contact Refer red To Contact Radiology Diagnoses [place] Diarrhea Yarelis Guzman MD [facility] Rad Nuclear Med Procedures [facility] [place] [address] [place] [address] Referral ID Status Reason Start Date Expiration Date Visits V isits Requested Authorized [id number] Closed Specialty 10/01/2015 09/30/2016 1 1 Service Requested Encounter Details Date Type Department Care Team Description 10/14/2015 Hospital Encounter Nuclear Medicine at [place], Olya cheryl, [place]; Mary Uriarte MD [facility] [address] [facility] [address] ENDOCRINOLOGY DEPT [phone] [place], [place] [address] (Wo rk) Social History Tobacco [...] Visit (TeleHealth) General Surgery Rylie Rea M, [facility] [place] [address] Keiry Chatterjee, RD [facility] DR [place] [address] documented as of this encounter Procedures Procedure Name Priority Date/Time Associated Diagnosis Comme nts NM OCTREOSCAN Routine 10/15/2015 11:20 AM [place] Results for this EDT Diarrhea procedure are i n the results section . documented in this encounter Results HI OctreoScan (10/15/2015 11:20 AM EDT) Anatomical Region Laterality Modality Nuclear Medicine Specimen (Source) Anatomical Location Collection Method / Collectio n Time Received Time / Laterality Volume Impressions 10/15/2015 12:58 PM EDT No somatostatin receptor positive tumor is detected. Narrative 10/15/2015 12:58 PM EDT EXAMINATION: HI OCTREOSCCHERYL CLINICAL HISTORY: 44 yo F with symptoms of episodic flushing & loose stools, found to have a markedly elevate d chromogranin A of 652, normal 24h urine 5-HIAA, would like to evaluate for presence of neuroendocrine tumor TECHNIQUE: Indium-111 pentetreotide was administered intravenously in a dose of 5.5 mCi. ??Four hours later, anterior an d posterior images of the body were obtained from the top of the head to the mid thighs. At 24 hours, the anterior and posterior images were repeated. Tomographic imaging of the abdomen was then performe d with images reconstructed in the axial, sagittal and coronal planes. A lo w-dose CT scan was acquired for attenuation correction and anatomic loca lization. COMPARISON: None FINDINGS: There is normal distribution of activity throughout the head, neck, chest, abdomen and pelvis. The CT attenuation map reveals enlargeme nt of the uterus, most consistent with fibroids. Procedure Note Michael Mccormick MD - 10/15/2015 EXAMINATION: HI OCTREOSCCHERYL CLINICAL HISTORY: 44 yo F with symptoms of episodic flushing & loose stools, found to have a markedly elevate d chromogranin A of 652, normal 24h urine 5-HIAA, would like to evaluate for presence of neuroendocrine tumor TECHNIQUE: Indium-111 pentetreotide was administered intravenously in a dose of 5.5 mCi. Four hours later, anterior and posterior images of the body were obtained from the top of the head to the mid thighs. At 24 hours, the anterior and posterior images were repeated. Tomographic imaging of the abdomen was then performe d with images reconstructed in the axial, sagittal and coronal planes. A lo w-dose CT scan was acquired for attenuation correction and anatomic loca lization. COMPARISON: None FINDINGS: There is normal distribution of activity throughout the head, neck, chest, abdomen and pelvis. The CT attenuation map reveals enlargeme nt of the uterus, most consistent with fibroids. IMPRESSION No somatostatin receptor positive tumor is detected. Yarelis Guzman MD IM NM ORDERABLES documented in this encounter Visit Diagnoses Diagnosis [place] Diarrhea documented in this encounter Administered Medications Inactive Administered Medications - up to 3 most recent administrations Medication Order MAR Action Action Date Dose Rate Site indium (IN-111) octreoscan Given 10/14/2015 10:59 AM EDT 5.5 mCi injection 5.5 mCi 5.5 mCi, Intravenous, ONCE PRN, 1 dose, Starting on Sakina 10/14/15 at 1058, Until Sakina 10/14/15 at 1059, Per Protocol, Routine documented in this encounter Care Teams [employer] Sales Consultant Relationship Specialty Start Date End Date Sushil Loya MD PCP - General General Internal Medicine 09/13/15 06/01/[address] [place] [place] [address] documented as of this encounter
--- OUTSIDE RECORDS SUMMARY | 2022-02-03 02:30 | XMS_ITS | Encounter Summary ---
:1970 Author Organization [facility] [place] [address] Care Team Providers Name Role Phone Osiris Garcia APRN Primary Care Provider Reason for Visit Reason Comments Hypertension Encounter Details Date Type Department Care Team Description 06/15/2016 Office Visit Nephrology Ho, Elevated blood Hypertension at [facility] Oscar Boothe MD pressure reading with [facility] ONE MEDICAL diagnosis of [facility] [place] [address] NEPHROLOGY DEPT. [phone] [place], [place] [address] Social History Tobacco Use Types Packs/Day Years Used Date Never Smoker Sex Assigned at Date Recorded Not on file documented as of this encounter Last Filed Vital Signs Vital Sign Reading Time Taken Comments Blood Pressure 131/83 06/15/2016 8:16 AM EDT Pulse 85 06/15/2016 8:16 AM EDT Temperature - - Respiratory Rate 18 06/15/2016 8:16 AM EDT Oxygen Saturation - - Inhaled Oxygen Concentration - - Weight 108.8 kg (239 lb 12.8 oz) 06/15/2016 8:16 AM EDT Height 165.1 cm (5' 5) 06/15/2016 8:16 AM EDT Body Mass Index 39.9 06/15/2016 8:16 AM EDT documented in this encounter Progress Notes Oscar Teague MD - 06/15/2016 8:00 AM EDT Hypertension/Nephrology Consultation Monisha Das [id number] 1970 ID: [id number] y.o. old female seen at the request of Osiris Garcia APRN, for evaluation of hypertension andrenal insufficiency. Past Medical History: Hypertension Depression Restless leg Past Surgical History: x 3 Endometrial ablations Tonsillectomy History of Present Illness: She had preeclampsia with her first 21 years ago. Her blood pressure did not normalize after delivery, and she has been treated for hypertension since then. Her blood pressure has been controlled on HCTZ and lisinopril. The dose of lisinopril was increased to 40 mg per day when the blood pressure livier in the recent past; it has since been reasonably well-controlled. When elevated, it is often the diastolic blood pressure that is high. She does not measure her own blood pressures. She has had intermittently low serum potassium levels, and she is now on KCl supplementation. Serum potassium levels have ranged from 3.1 to 4.1 mmol/l since 06/11; the most recent value was 3.8 mmol/l on 06/09/16. She says she has prediabetes and was placed on metformin for a brief period; she stopped it after one month. Serum creatinine levels (the patient brought in values for the past 5 years) were 0.8-1.1 mg/dl from06/11 through 09/14, 0.87-1.09 from 03/16 through 08/15, 1.07 on 10/30/15, 1.01 on 04/26/16, and 1.13 mg/dl (eGFR 52 ml/min) on 05/30/16. The latter value apparently triggered a referral to our office She denies urinary tract symptoms. She has been troubled by peripheral edema; she is not following alow sodium diet. Additional lab data included urine free cortisol of 7.0 mcg/24 hours (normal 3.5-45 mcg). Serum magnesium was 1.9 mg/dl on 10/30/15. On 09/24/15, the urine creatinine was 1.20 g/24 hours; however, no serum creatinine was obtained at that time. She also had serologies performed. On 07/14/15, ANCA, HUNTER-1 antibody, SS-A antibody, Sm ([place]) antibody, C[employer]OR antibody, Scl-70 (Scleroderma) IgG antibody, anti-double stranded DNA antibody, dilute Rafa Viper Venom (Lupus) test, C3, and C4 were normal or negative. An TG was positive at 1:160 titer with diffuse and speckled patter. These and other results will be scanned into eD. Medications: Outpatient Encounter Prescriptions as of 06/15/2016 Medication Sig Dispense Refill ??? omeprazole (PRILOSEC) 40 mg Capsule, Delayed Release(E.C.) Take 40 mg by mouth daily. ??? pramipexole (MIRAPEX) 0.25 mg Tablet Take 0.25 mg by mouth daily. ??? lisinopril (PRINIVIL;ZESTRIL) 20 mg Tablet Take 20 mg by mouth daily. Reported on 06/15/2016 ??? b complex vitamins Tablet Take 1 tablet by mouth daily. ??? buPROPion (WELLBUTRIN XL) 300 mg Tablet Sustained Release 24 hr Take 300 mg by mouth every morning. ??? topiramate (TOPAMAX) 100 mg Tablet Take 100 mg by mouth 2 times daily. ??? hydrOXYzine (ATARAX) 25 mg Tablet Take 25 mg by mouth 3 times daily as needed for Itching. ??? triamcinolone (ARISTOCORT) 0.5 % Cream Apply topically 3 times daily. ??? CIS Free Text Med - Children's Multi Vitamins ??? hydrochlorothiazide (HYDRODIURIL) 25 mg tablet ??? fish oil-omega-3 fatty acids 1,000 mg Capsule Take 2 g by mouth daily. Reported on 06/15/2016 ??? ferrous sulfate 325 mg (65 mg Iron) tablet (Patient not taking: No sig reported) ??? famotidine (PEPCID) 10 mg tablet (Patient not taking: No sig reported) ??? SERTRALINE HCL (ZOLOFT ORAL) (Patient not taking: No sig reported) No facility-administered encounter medications on file as of 06/15/2016. Allergies / ADRs: Allergies Allergen Reactions ??? Atropine CIS - redness and bodily swelling Family History: Father is 79 and has Parkinson's disease; hypertension. Mother is 75 years old; she has had a mitralvalve replacement; she has pulmonary hypertension, has a low EF and has HCV. Two older siblings include a sister, aged 52, who was treated for uterine cancer. A brother, aged 50, is well. Depression isin the family. No diabetes or kidney disease. Social History: She is and now lives with a partner. She has four children (21,21,15,11). 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 She does not smoke. Rare alcohol. She has started exercising by walking. Review of Systems: System Abnormalities Constitutional She has gained 50 lbs in the past two years. She considers her health in the past 4 weeks as fair-good Eye Vision is good with glasses ENT Teeth in good repair CV She was recently found to have a heart murmur. She had an echocardiogram that she says was fairlyunremarkable. She has noted rapid heart rate, especially when serum potassium was low Resp She notes shortness of breath with walking GI She has recently noted nausea, especially in am; it can come on suddenly; no vomiting. She has been on omeperazole for about one year. She has had diarrhea, which, was aggravated by KCl. She has hada negative workup for carcinoid (Urine 5-HIAA was 5.4 mg/24 hours on 09/24/15). A NM octreotide scan was negative. She has had two colonoscopies. Other GI studies were obtained; the results will be scanned into [facility] She had microscopic hematuria on a urinalysis recently. Skin She has alopecia areata Allergy Endocrine Diabetes-see HPI. She had Marylou's thyroiditis. TSH was 3.05 uIU/ml in 08/15. Thyroperoxidase antibody was >1300 U/ml and thyroglobulin antibody was 123 U/ml in 07/16 Neurologic She takes topiramate for headaches. She has restless leg; she takes pramipexole Musculoskeletal No arthirits. She has a left rotator cuff injury. CRP was 0.67 mg/dl in 05/18. Lymph No enlarged lymph glands. Hgb was 13.5 g/dl on 05/30/16 In 2015, ferritin was 52 ng/ml, serum iron 52 mcg/dl, and TIBC 344 mcg/dl. Folate and B12 levels were normal Psych Depression is controlled Y N All other systems reviewed and negative. x Physical Examination: Vitals 06/15/2016 06/15/2016 SYSTOLIC 131 DIASTOLIC 83 PULSE 85 RESPIRATIONS 18 Height (Filipino) 5' 5 Height (Metric) 165.1 cm Weight (Filipino) 239 lbs 13 oz Weight (Metric) 108.773 kg BODY MASS INDEX 39.9 kg/m2 BSA 2.23 BP126/86, left arm, seated; 134/88, right arm, seated General: Overweight woman in no distress Eye: SUNITHA. EOMs intact. Fundi normal ENT: Oropharynx benign Neck: No JVD or bruits CV: RRR. S1, S2 normal. Grade 1/6 systolic murmur at base Resp: Lungs clear Abd: Obese, non-tender. No organomegaly or masses. No bruits Lymph: No cervical or submandibular adenopathy Ext: Trace pretibial edema Skin: Striae on abdomen, not pigmented Neuro: RAMIREZ. DTRs 1+, symmetrical. Flexor plantar responses. Sensation intact to microfilament Labs: Urinalysis in our office:pH 5, specific gravity 1.005, neg leukocytes, neg nitrite, trace protein, neg glucose, neg ketones, trace blood. Microscopic: Few squamous epithelial cells. Benign. Results for CASEYMEIRON Geetha ( ) as of 06/18/2016 12:09 Ref. Range 06/15/2016 09:37 06/15/2016 09:50 WBC Latest Ref Range: 4.0 - 9.5 x10(3)/mcL 9.5 RBC Latest Ref Range: 4.00 - 5.21 x10(6)/mcL 4.91 Hemoglobin Latest Ref Range: 11.7 - 15.5 gm/dL 13.6 Hematocrit Latest Ref Range: 35.7 - 45.8 % 40.6 MCV Latest Ref Range: 82.6 - 94.4 fL 82.7 MCH Latest Ref Range: 27.1 - 32.0 pg 27.7 MCHC Latest Ref Range: 31.7 - 35.0 gm/dL 33.5 RDWSD Latest Ref Range: 37.0 - 46.0 fL 39.4 RDWCV Latest Ref Range: 11.5 - 14.1 % 13.0 Platelets Latest Ref Range: 145 - 357 x10(3)/mcL 400 (H) MPV Latest Ref Range: 7.6 - 12.9 fL 9.2 nRBC % Auto Latest Units: % 0.0 nRBC Abs Auto Latest Ref Range: 0.000 - 0.000 x10(3)/mcL 0.000 Neutr Abs (ANC) Latest Ref Range: 1.70 - 6.10 x10(3)/mcL 5.75 Neutrophils % Latest Units: % 60.7 Immature Gran % Latest Units: % 0.30 Lymphocytes % Latest Units: % 29.7 Monocytes % Latest Units: % 5.9 Eosinophils % Latest Units: % 2.8 Basophils % Latest Units: % 0.6 Alfreda Gran Abs Latest Ref Range: 0.00 - 0.04 x10(3)/mcL 0.03 Lymphocytes Abs Latest Ref Range: 0.9 - 3.2 x10(3)/mcL 2.8 Monocyte Abs Latest Ref Range: 0.3 - 0.9 x10(3)/mcL 0.6 Eosinophils Abs Latest Ref Range: 0.0 - 0.4 x10(3)/mcL 0.3 Basophils Abs Latest Ref Range: 0.0 - 0.1 x10(3)/mcL 0.1 Sodium Latest Ref Range: 135 - 145 mmol/L 139 Potassium Latest Ref Range: 3.5 - 5.0 mmol/L 3.4 (L) Chloride Latest Ref Range: 98 - 107 mmol/L 101 CO2 Latest Ref Range: 22 - 31 mmol/L 23 Anion Gap Latest Ref Range: 5 - 15 mmol/L 15 BUN Latest Ref Range: 8 - 18 mg/dL 18 Creatinine Latest Ref Range: 0.70 - 1.20 mg/dL 0.87 Estimated GFR Latest Ref Range: >=60 >60 Glucose Lvl Latest Ref Range: 65 - 199 mg/dL 108 Calcium Latest Ref Range: 8.5 - 10.5 mg/dL 9.4 Phosphorus Latest Ref Range: 2.5 - 4.5 mg/dL 3.2 Albumin Latest Ref Range: 3.2 - 5.2 gm/dL 4.3 Cystatin C Latest Ref Range: 0.62 - 1.07 mg/L 1.16 (H) Cystatin C eGFR Latest Ref Range: >60 mL/min/BSA 63 PTH Latest Ref Range: 15 - 65 pg/mL 37 Aldosterone Latest Ref Range: <=21 ng/dL 11 Renin Activity Latest Units: ng/ml/hr 19 Alb/Cr Ratio, Random Latest Ref Range: 0 - 29 mcg/mg Cr Not Calculated U Albumin Conc, Random Latest Units: mg/L <3.0 U Creatinine Latest Units: mg/dL 54 Estimated GFR by MDRD equation 114 ml/min, by CKD-EPI equation 120 ml/min, by CKD-EPI cystatin C equation 68 ml/min, and by CKD-EPI cystatin C/creatinine equation 90 ml/min. Assessment: 1. Hypertension, under uncertain control. The blood pressure was in an adequate range in the office today. Serum potassium level is slightly low despite KCl; this could be related to thiazide diuretic.Plasma aldosterone is not elevated and PRA is not suppressed, arguing against primary hyperaldosteronism. 2. The current data do not support the presence of renal insufficiency or chronic kidney disease. 3. Obesity. 4. Diabetes/prediabetes. Recommendations: 1. In light of hypokalemia and her poor tolerance to KCl, I would suggest trying to control blood pressure without a thiazide (i.e., discontinue HCTZ). If lisinopril alone is not sufficient to control blood pressure, would add amlodipine or carvedilol. Alternatively, you could try a K+-sparing diuretic, especially if edema cannot be controlled by dietary sodium restriction. 2. She should monitor home blood pressures and maintain a log. 3. I encourage her to work on losing weight. She should follow a modest sodium restricted diet (2.5-3 g per day). 4. I did not give her a return appointment but would be happy to see her again if difficulties arise. Please CC to: Osiris Garcia APRN @[email or web address]@ documented in this encounter Plan of Treatment Upcoming Encounters Date Type Specialty Care Team Description 02/08/2022 TH Visit (TeleHealth) General Surgery Rylie Rea, ENRIQUE [facility] [place] [address] Keiry Chatterjee, SAM [facility] [place] [address] documented as of this encounter Procedures Procedure Name Priority Date/Time Associated Diagnosis Comme nts U ALBUMIN/CRE RATIO Routine 06/15/2016 9:50 AM Elevated blood Results for this EDT pressure reading with proced ure are in diagnosis of the results hypertension section. PTH Routine 06/15/2016 9:37 AM Elevated blood Results for this EDT pressure reading with proced ure are in diagnosis of the results hypertension section. HEMOGRAM Routine 06/15/2016 9:37 AM Elevated blood Results for this EDT pressure reading with proced ure are in diagnosis of the results hypertension section. DIFFERENTIAL, Routine 06/15/2016 9:37 AM Elevated blood Result s for this AUTOMATED EDT pressure reading with proced ure are in diagnosis of the results hypertension section. CYSTATIN C Routine 06/15/2016 9:37 AM Elevated blood Results for this EDT pressure reading with proced ure are in diagnosis of the results hypertension section. ALDOSTERONE Routine 06/15/2016 9:37 AM Elevated blood Results for this EDT pressure reading with proced ure are in diagnosis of the results hypertension section. RENIN ACTIVITY Routine 06/15/2016 9:37 AM Elevated blood Resul ts for this EDT pressure reading with proced ure are in diagnosis of the results hypertension section. CBC (WITH DIFF) Routine 06/15/2016 9:37 AM Elevated blood EDT pressure reading with diagnosis of hypertension PHOSPHORUS Routine 06/15/2016 9:37 AM Elevated blood Results for this EDT pressure reading with proced ure are in diagnosis of the results hypertension section. ALBUMIN LEVEL Routine 06/15/2016 9:37 AM Elevated blood Result s for this EDT pressure reading with proced ure are in diagnosis of the results hypertension section. BASIC METABOLIC Routine 06/15/2016 9:37 AM Elevated blood Resu lts for this PANEL (NON-FASTING) EDT pressure reading with procedure are in diagnosis of the results hypertension section. documented in this encounter Results U Albumin/Cre Ratio (06/15/2016 9:50 AM EDT) [facility] Method Time Signature Alb/Cr Ratio, Not Calculated 0 - 29 ROS[place] Random mcg/mg Cr [facility] Comment: Reference Ranges: <30 mcg/mg: Normal 30-300 mcg/mg: Moderately increased albu minuria.* >300 mcg/mg: Severely increased albuminu marissa. * ACEI or ARB recommended if diabetic; s uggested if BP>130/80 without diabetes ACEI or ARB strongly recommended if di abetic; recommended if BP>130/80 without diabetes Two of three specimens collected within a 3 to 6 month period should be abnormal before considering a patient to have albuminuria. Transient causes: exercise, fever, infection, CHF, marked hyperglycemia or hypertension. Persistent albuminuria indicates CKD and is an independent risk factor for ASCVD. ADA Standards of Medical Care in Diabete s-2016; KDIGO: Kidney International Supplements (2012) 2, 357? 362 U Albumin Conc, Random <3.0 mg/L [facility] U Creatinine 54 mg/dL [facility] Specimen Anatomical Collection Method Collection Time Receive d Time (Source) Location / / Volume Laterality Urine specimen 06/15/2016 9:50 AM 017 (specimen) EDT 11:57 AM EDT Resulting Agency Comment Spec In Lab Oscar Teague MD URINE ORDERABLES Performing Organization Address City/State/[place] [address] Differential, Automated (06/15/2016 9:37 AM EDT) athologist Signature Neutrophils % 60.7 % [facility] Neutr Abs (ANC) 5.75 1.70 - [facility] 6.10 [facility] x10(3)[facility] Lymphocytes % 29.7 % [facility] Lymphocytes Abs 2.8 0.9 - 3.2 [facility] x10(3)[facility] Monocytes % 5.9 % [facility] Monocyte Abs 0.6 0.3 - 0.9 [facility] x10(3)[facility] Eosinophils % 2.8 % [facility] Eosinophils Abs 0.3 0.0 - 0.4 [facility] x10(3)[facility] Basophils % 0.6 % [facility] Basophils Abs 0.1 0.0 - 0.1 [facility] x10(3)/[facility] Immature Gran % 0.30 % [facility] Comment: Immature granulocytes(IG's)percentage an d absolute count will include metamyelocytes, myelocytes, and promyelo cytes. Blood smears from CBCs yielding IG's will be scanned manually for concor dance. If this scan disagrees with the automated IG or if promyelocytes are not ed, a manual differential will be performed. Alfreda Gran Abs 0.03 0.00 - 0.04 x10(3)/[facility] MAR Y [facility] Specimen Anatomical Collection Method Collection Time Receive d Time (Source) Location / / Volume Laterality Blood specimen 06/15/2016 9:37 AM 017 9:42 (specimen) EDT AM EDT Resulting Agency Comment Spec In Lab Oscar Teague MD HEMATOLOGY ORDERABLES Performing Organization Address City/State/[place] [address] (ABNORMAL) Hemogram (06/15/2016 9:37 AM EDT) P athologist Signature WBC 9.5 4.0 - 9.5 [facility] x10(3)/[facility] LABORATORY RBC 4.91 4.00 - [facility] 5.21 [facility] x10(6)/[facility]ORATORY Hemoglobin 13.6 11.7 - [facility] 15.5 gm/dL [facility] Hematocrit 40.6 35.7 - [facility] 45.8 % [facility] MCV 82.7 82.6 - [facility] 94[facility]4 [facility] MCH 27.7 27.1 - [facility] 32.0 pg [facility] MCHC 33.5 31.7 - [facility] 35.0 gm/dL [facility] Platelets 400 (H) 145 - 357 [facility] x10(3)/[facility] LABORATORY RDWSD 39.4 37.0 - [facility] 46.0 [facility] LABORATORY RDWCV 13.0 11.5 - [facility] RAJ 14.1 % [facility] MPV 9.2 7.6 - 12.9 [facility] LABORATORY nRBC % Auto 0.0 % [facility] nRBC Abs Auto 0.000 0.000 - [facility] 0.000 [facility] x10(3)/[facility] LABORATORY Specimen Anatomical Collection Method Collection Time Receive d Time (Source) Location / / Volume Laterality Blood specimen 06/15/2016 9:37 AM 017 9:42 (specimen) EDT AM EDT Resulting Agency Comment Spec In Lab Oscar Teague MD HEMATOLOGY ORDERABLES Performing Organization Address City/State/[place] [address] Renin Activity (06/15/2016 9:37 AM EDT) P athologist Signature Renin Activity 19 ng/ml/hr [facility] Comment: REFERENCE VALUE------ (Peripheral vein specimen) Na-deplete, upright: ??Mean: 5.9 ??Range: 2.9-10.8 Na-replete, upright: ??Mean: 1.0 ??Range: < or =0.6-3.0 ADDITIONAL INFORMATIO N Testing performed by Liquid Chromatograp hy-Tandem Mass Spectrometry (LC-MS/MS). This test was developed and its performa nce characteristics determined by [facility] in a manner co nsistent with CLIA requirements. This test has not been yoav ared or approved by the U.S. Food and Drug Administration. Test Performed by: [address] [address] Specimen Anatomical Collection Method Collection Time Receive d Time (Source) Location / / Volume Laterality Blood specimen 06/15/2016 9:37 AM 017 (specimen) EDT 10:36 AM EDT Resulting Agency Comment Spec In Lab Oscar Teague MD CHEMISTRY ORDERABLES Performing Organization Address City/State/[place] [address] Aldosterone (06/15/2016 9:37 AM EDT) P athologist Signature Aldosterone 11 <=21 ng/dL [facility] Comment: ADDITIONAL INFORMATIO N Reference range for patients 11 years an d older is based on upright A.M. collection from subjects wi thout sodium restrictions. This test was developed and its performa nce characteristics determined by [facility] in a manner co nsistent with CLIA requirements. This test has not been yoav ared or approved by the U.S. Food and Drug Administration. Test Performed by: [facility] - [facility] [address] [place] [address] Specimen Anatomical Collection Method Collection Time Receive d Time (Source) Location / / Volume Laterality Blood specimen 06/15/2016 9:37 AM 017 (specimen) EDT 10:36 AM EDT Resulting Agency Comment Spec In Lab Oscar Teague MD CHEMISTRY ORDERABLES Performing Organization Address City/State/[place] [address] (ABNORMAL) Cystatin C (06/15/2016 9:37 AM EDT) athologist Signature Cystatin C 1.16 (H) 0.62 - [facility] 1.07 mg/L [facility] Comment: Test Performed by: [facility] - [facility] [address] [place] [address] Cystatin C eGFR 63 >60 mL/min/BSA [facility] Comment: ADDITIONAL INFORMATIO N Cystatin C-based eGFR may differ substan tially from creatinine-based eGFR in patients with a bnormal muscle mass or acutely changing renal function. ??Pl ease interpret together with relevant clinical features . Test Performed by: [facility] - [address] [address] Specimen Anatomical Collection Method Collection Time Receive d Time (Source) Location / / Volume Laterality Blood specimen 06/15/2016 9:37 AM 017 (specimen) EDT 11:50 AM EDT Resulting Agency Comment Spec In Lab Oscar Teague MD CHEMISTRY ORDERABLES Performing Organization Address City/State/Z[place] [address] Albumin Level (06/15/2016 9:37 AM EDT) athologist Signature Albumin 4.3 3.2 - 5.2 [place] RAJ gm/dL [facility] Specimen Anatomical Collection Method Collection Time Receive d Time (Source) Location / / Volume Laterality Blood specimen 06/15/2016 9:37 AM 017 9:42 (specimen) EDT AM EDT Resulting Agency Comment Spec In Lab Oscar Teague MD CHEMISTRY ORDERABLES Performing Organization Address City/[facility]/ZIP [place] [address] PTH (06/15/2016 9:37 AM EDT) athologist Signature PTH 37 15 - 65 [place] pg/mL [facility] Specimen Anatomical Collection Method Collection Time Receive d Time (Source) Location / / Volume Laterality Blood specimen 06/15/2016 9:37 AM 017 9:42 (specimen) EDT AM EDT Resulting Agency Comment Spec In Lab Oscar Teague MD CHEMISTRY ORDERABLES Performing Organization Address City/[facility]/ZIP [place] [address] Phosphorus (06/15/2016 9:37 AM EDT) athologist Signature Phosphorus 3.2 2.5 - 4.5 [place] mg/dL [facility] Specimen Anatomical Collection Method Collection Time Receive d Time (Source) Location / / Volume Laterality Blood specimen 06/15/2016 9:37 AM 017 9:42 (specimen) EDT AM EDT Resulting Agency Comment Spec In Lab Oscar Teague MD CHEMISTRY ORDERABLES Performing Organization Address City/[facility]/ZIP [place] [address] (ABNORMAL) Basic Metabolic Panel (non-fasting) (06/15/2016 9:37 AM EDT) athologist Signature Glucose Lvl 108 65 - 199 [facility] mg/dL [facility] Comment: Diabetes: >=200 mg/dL plus symp toms BUN 18 8 - 18 mg/dL [facility] Creatinine 0.87 0.70 - 1.20 mg/dL [facility] Comment: Please note that the pediatric reference intervals supplied above were not validated at [facility]. Results from pediatri c patients should be interpreted in conjunction to the patient's age, height and muscle mass. Sodium 139 135 - 145 mmol/L [facility] Potassium 3.4 (L) 3.5 - 5.0 mmol/L [facility] Comment: Please note: ??Patients with WBC >100,00 0 may have falsely elevated Potassium levels. ??For accurate Potassium quantif ication in these patients send serum separator tube (gold top) for subsequent determinations. ??Contact the Clinical Chemistry Laboratory if there are any qu estions. Chloride 101 98 - 107 mmol/L [facility] CO2 23 22 - 31 mmol/L [facility] Anion Gap 15 5 - 15 mmol/L [facility] Calcium 9.4 8.5 - 10.5 mg/dL [facility] Estimated GFR >60 >=60 [facility] Comment: This estimated GFR (eGFR) value was calc ulated using the MDRD equation which has been validated on patients between t he ages of 18 and 70. The MDRD should not be used to assess kidney function in patients < 18 years of age or in patients with extremes of body mass, or in patients with acute kidney failure. This value should be multiplied by 1.2 f or patients. For further information please copy and past e the following links into your internet browser. http://[employer]/DHnkdep http://[employer]/DHMCnkf Specimen Anatomical Collection Method Collection Time Receive d Time (Source) Location / / Volume Laterality Blood specimen 06/15/2016 9:37 AM 017 9:42 (specimen) EDT AM EDT Resulting Agency Comment Spec In Lab Oscar Teague MD CHEMISTRY ORDERABLES Performing Organization Address City/State/[place] [address] documented in this encounter Visit Diagnoses Diagnosis Elevated blood pressure reading with selwyn gnosis of hypertension documented in this encounter Care Teams Nurses Director Relationship Specialty Start Date End Date Osiris Garcia APRN PCP - General Internal Medicine 06/02/16 04/04/[address] [place] [address] documented as of this encounter
--- OUTSIDE RECORDS SUMMARY | 2022-02-03 02:30 | XMS_ITS | Encounter Summary ---
:1970 Author Organization [facility] [place] [address] Care Team Providers Name Role Phone Huyen Ramon DO Primary Care Provider Encounter Details Date Type Department Care Team Description 06/27/2019 Ancillary Procedure Radiology Library at Pricila Ramon [facility], DO [facility] [address] [place] [phone] (Wo rk) Social History Tobacco Use Types [...] TH Visit (TeleHealth) General Surgery Rylie Rea, RUBBER TIRE CURER [facility] [place] [address] Keiry Chatterjee, RD [facility] [place] [address] documented as of this encounter Procedures Procedure Name Priority Date/Time Associated Diagnosis Comme nts FILM LIBRARY Routine 06/27/2019 12:00 AM Results for this STORAGE ONLY MR EDT procedure ar e in SPINE the results section. documented in this encounter Results Film Library- Storage Only MR Spine (06/27/2019 12:00 AM EDT) Specimen (Source) Anatomical Location Collection Method / Collectio n Time Received Time / Laterality Volume Narrative [facility] - 07/01/2019 3:50 PM EDT This exam is auto-finalizing. It's purpo se is for storage only. Huyen Ramon DO IM FILM LIBRARY ORDERABLES Performing Organization Address City/State/ZIP Code Phon e Number [place], [place] documented in this encounter Visit Diagnoses Not on filedocumented in this encounter Care Teams Supervisor Electrolytic Tinning Relationship Specialty Start Date End Date Huyen Ramon DO PCP - General Family Medicine 04/05/[address] [place] [address] documented as of this encounter
--- OUTSIDE RECORDS SUMMARY | 2022-02-03 02:30 | XMS_ITS | Encounter Summary ---
:1970 Author Organization [facility] [place] [address] Care Team Providers Name Role Phone Sushil Loya MD Primary Care Provider [phone] Encounter Details Date Type Department Care Team Description 09/15/2015 Hospital Encounter Laboratory [facility] [place] [address] Social History Tobacco Use Types Packs/Day [...] Visit (TeleHealth) General Surgery Rylie Rea, MANAGER [employer] [facility] [place] [address] Keiry Chatterjee, RD [facility] [place] [address] documented as of this encounter Visit Diagnoses Not on filedocumented in this encounter Care Teams Manufacturer Relationship Specialty Start Date End Date Sushil Loya MD PCP - General General Internal Medicine 09/13/15 06/01/[address] [place] [address] documented as of this encounter
--- OUTSIDE RECORDS SUMMARY | 2022-02-03 02:30 | XMS_ITS | Encounter Summary ---
:1970 Author Organization [facility] [place] [address] Care Team Providers Name Role Phone Huyen Ramon DO Primary Care Provider Encounter Details Date Type Department Care Team Description 11/30/2018 Telephone Cardiology at [facility] [place] [address] CARDIOLOGY DEPT [phone] [place], [place] [address] (Wo rk) Social History Tobacco Use Types Packs/Day Years Used Date Never Smoker Smokeless Tobacco: Never Used Alcohol Use Standard Drinks/Week Comments No 0 (1 standard drink = 0.6 oz pure alcoho l) Sex Assigned at Date Recorded Not on file documented as of this encounter Miscellaneous Notes Telephone Encounter - Keiry Segura DO - 11/30/2018 10:37 AM EDT Telephone Consult Note Initial Contact Date: 11/30/2018 Referring Provider: Dr. Haley Patient Location: [facility] Monisha Das is a 47 y.o. female with medical history significant for HTN, chronic hypokalemia and chronic diarrhea (being worked up by endocrinology) who is admitted to the OSH for hypokalemia. Today she had a run of WCT that self resolved for which the OSH provider is calling for recommendations. OSH provider states that she was feeling palpitations at the time but those feelings have since resolved. Her potassium was 3.0 on admission. They have been unable to check a potassium today due to lab problems. For BP she is on HCTZ 50 mg daily at home. This has been continued during her hospitalization. She is not on any other diuretics. No complaints of chest pain or shortness of breath. She hasbeen given doses of potassium but OSH provider is not sure how much. He has sent the telemetry strips, there is a wide complex tachycardia that appears most consistent with VT that resolves without anyintervention. EKG at baseline shows poor R wave progression and a relatively normal QTc. She is hemodynamically stable and without symptoms at this point. Her last set of vitals is 133/87, 73, 18 36.5 98% on RA. OSH provider seeking recommendations. Discussed with OSH provider that I suspect the arrhythmia was related to her electrolyte abnormalities. Recommend checking today and repleting aggressively (goal of at least 4.0). Would stop HCTZ indefinitely and avoid other diuretics. She has not tolerated spironolactone in the past (due to rash). She is already on a beta sydney which he will continue. Her EKG doesn't show any acute ischemic changes but it's reasonable to rule her out for ACS. Also recommend pursuing a TTE. Encouraged him to call with any changes or further questions. documented in this encounter Plan of Treatment Upcoming Encounters Date Type Specialty Care Team Description 02/08/2022 TH Visit (TeleHealth) General Surgery Rylie Rea, FIELD COORDINATOR [facility] [place] [address] [facility] [place] [address] documented as of this encounter Visit Diagnoses Not on filedocumented in this encounter Care Teams Tractor Operator Battery Relationship Specialty Start Date End Date Huyen Ramon DO PCP - General Family Medicine 04/05/[address] [place] [place] [address] documented as of this encounter
--- OUTSIDE RECORDS SUMMARY | 2022-02-03 02:30 | XMS_ITS | Encounter Summary ---
:1970 Author Organization [facility] [place] [address] Care Team Providers Name Role Phone Tristen Huyenjenna Tucker DO Primary Care Provider Encounter Details Date Type Department Care Team Description 07/22/2019 Telephone Weight and Wellness at [facility] Ajay Martin, [facility] [address] [place] [address] Social History Tobacco Use Types Packs/Day Years Used Date Never Smoker Smokeless Tobacco: Never Used Alcohol Use Standard Drinks/Week Comments No 0 (1 standard drink = 0.6 oz pure alcoho l) Sex Assigned at Date Recorded Not on file documented as of this encounter Miscellaneous Notes Telephone Encounter - Glenna Martin, [facility] - 07/22/2019 11:04 AM EDT [facility] Coordinator pre telemedicine visit phone note. [] Patient not reached: [x] Patient was reached and the following information was reviewed/obtained per protocol: [x] Confirmed patient name and date of [x] Confirmed telemedicine software downloaded and functioning [x] Confirmed location of patient. Patient is in [] [place] [x] [place] [] Review of patient medications completed [x] New patient packet sent (if not received information obtained verbally) [] Prescriptions ready to be signed [x] Documented self reported vital signs [x] Weight 268 [x] Blood pressure 138/94 [x] Pulse 74 [x] Requested 24 hour diet recall [] Other information of concerns Reviewed directions for 24 hour diet recall, pt agreed to have this ready for appointment time. Reminded pt to go on MY-dH and complete new pt questioner. Pt states she already did this. Glenna Martin CMA documented in this encounter Plan of Treatment Upcoming Encounters Date Type Specialty Care Team Description 02/08/2022 TH Visit (TeleHealth) General Surgery Rylie Rea, VALUE STREAM LEADER [facility] [place] [address] Keiry Chatterjee, RD [facility] [place] [address] documented as of this encounter Visit Diagnoses Not on filedocumented in this encounter Care Teams Incubator Operator Relationship Specialty Start Date End Date Huyen Ramon DO PCP - General Family Medicine 04/05/[address] [place] [address] documented as of this encounter
--- OUTSIDE RECORDS SUMMARY | 2022-02-03 02:30 | XMS_ITS | Encounter Summary ---
:1970 Author Organization [place] [address] Care Team Providers Name Role Phone Osiris Garcia APRN Primary Care Provider Reason for Visit Reason Comments Allergies Consultation (Routine) - Closed Specialty Diagnoses / Procedures Referred By Contact Refer red To Contact Allergy Diagnoses food allergy, chronic diarrhea Sushil Loya [place] [facility] [facility] [address] [place] [phone] Referral ID Status Reason Start Date Expiration Visits Visits Date Requested Authorized [id number] Closed Connection 11/13/2016 11/13/2017 1 1 Center Encounter Details Date Type Department Care Team Description 01/17/2017 [place] [facility] [place], Marylou's disease; [facility] Chronic urticaria; [facility] Flushing; [place], [place] CENTER Diarrhea, unspecified type; [id number] ALLERGY AND Lymphocytosis; [phone] IMMUNOLOGY Elevated blood pressure reading; [place], [place] [address] Chronic rhinitis, unspecified type; [phone] Conjunctivitis of both eyes, unspecified conjunctivitis type (Work) Social History Tobacco Use Types Packs/Day Years Used Date Never Smoker Smokeless Tobacco: Never Used Alcohol Use Standard Drinks/Week Comments No 0 (1 standard drink = 0.6 oz pure alcoho l) Sex Assigned at Date Recorded Not on file documented as of this encounter Last Filed Vital Signs Vital Sign Reading Time Taken Comments Blood Pressure 133/90 01/17/2017 1:16 PM EDT Pulse 75 01/17/2017 1:16 PM EDT Temperature - - Respiratory Rate - - Oxygen Saturation - - Inhaled Oxygen Concentration - - Weight 111.1 kg (245 lb) 01/17/2017 1:16 PM EDT Height 165.1 cm (5' 5) 01/17/2017 1:16 PM EDT Body Mass Index 40.77 01/17/2017 1:16 PM EDT documented in this encounter Patient Instructions Patient InstructionsIrma Schroeder MD - 01/17/2017 1:00 PM EDT - Please take a picture of the rash. - Avoid NSAIDs ( ie aspirin, ibuprofen, naproxen, Motrin, Aleve, Advil) - Avoid friction, hot showers, alcohol - Schedule a follow up appointment with your legal instructor - Start Zyrtec 10mg once daily - Complete 24 hour urine tests - continue to follow up with PCP for management of diarrhea - Elevated blood pressure- Recommend continued monitoring and follow up with primary provider for further evaluation and management of elevated blood pressure documented in this encounter Progress Notes Irma Schroeder MD - 01/17/2017 1:00 PM EDT Chief Complaint Patient presents with ??? Allergies Summary of outside records: June 17, 2015, [facility]. Surgical pathology report. Duodenal mucosa with normal bilateral wrists architecture and increased intraepithelial lymphocytes which can be associated with gluten sensitivity or family history of activity, allergy 2014 antigens, post-viral gastroenteritis, autoimmune enteropathy, bacterial overgrowth, immunodeficiency syndromes and tropical sprue. Gastric antral mucosa with mild reactive gastropathy. No evidence of H. pylori. Stomach polyp showed polypoid gastric antral mucosa with capillary congestion and reactive changes. GE junction esophagus: Squamocolumnar junctional mucosa with features consistent with reflux esophagitis. Negative for intestinal metaplasia or dysplasia. Small intestine: Ileal mucosa with no specific pathology features. Ascending colon: Colonic mucosa with reactive lymphoid aggregates. Descending colon: Colonic mucosa with no specific pathologic features. Descending colon nodule: Chuck serrated adenoma. Colonic mucosa with reactive lymphoid aggregates. Sigmoid colon: Colonic mucosa with no specific pathologic features. 11-07-16 Dr. Sushil Loya. Patient has a history of diarrhea and hypokalemia. On potassium supplements. In 10/2016 she had acute diarrhea while in [place] with watery stools. Seen in ED and treated with Cipro for UTI and Flagyl for possible Giardia. 11/04/16 Labs: Elevated WBC at 11.21 with ULN 10.8. Loli l Hgb, platelet count. Elevated lymphocyte count at 3.65 with ULN 3.4 and monocyte count at 3.71 with ULN 3.7. Normal creatinine, hepatic panel. Low potassium at 2.8 mmol per liter with a lower limit of normal of 3.5. HPI The patient is a pleasant 46 y.o. year old female whose consultation was requested by .The reason for consultation is evaluation and management of adverse food reaction and diarrhea. The patient has diarrhea for the last two years ago. She has diarrhea most days of the week. She has four bowel movements per day. She has up to eight stools per day. She has soft stools with urgency and frequency. She does not have liquid stools. No hematochezia or BRBPR. No abdominal pain or bloating. She has random nausea without vomiting. She has random flushing. She has a history of random rashes. The lesions are raised and itchy. Worseon the arms. Lasts a couple of days. The rash comes and goes. She treats it with triamcinolone cream. She develops oral ulcers by eating acidic foods ie pineapple, melons, tomatoes and citrus fruit. Shehas angioedema with these foods. She takes a Benadryl when she eats these foods. She has a rash on her hand when she had tomatoes this summer. She does not eat gluten free. She has chronic anemia. Most likely secondary to menorrhagia. Patient has a history of alopecia areata. Patient tried gluten free diet without any change in her symptoms. She has been eating wheat for thelast few months without any worsening of symptoms. No scars or bruising with rash. She has had weight gain. Every year she is gaining 15 pounds. She has a history of Marylou's thyroid disease. Her TSH has been normal. She is not on thyroid medication. She has lower extremity edema b/l. She is perimenopausal. She has burning eyes bilateral with nasal congestion b/l. She has sneezing spells. Worse in the fall. No nasal congestion or itchy eyes. No prior allergy testing. Not on antihistamines. No prior allergy skin tests. She has GERD. No heartburn or reflux on PPI. Family history: No mast cell disorder. Daughter has asthma. Labs: 09/2015 Normal TSH, free T4, total T3 Chromogranin A elevated. Octreotide scan: Negative for somatostatin receptor positive tumor Social and environmental history: . Never smoker. Never chewed tobacco. No history or current recreational drug use. 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 Lives in a house with a woodstove. Has one cat and one dog. Review of Systems: All other systems reviewed and negative except as noted below: Review of Systems Constitution: Positive for chills and weight gain (15 pounds per year). HENT: Ears: Pressure, fullness, decreased hearing and ringing Nose: Congestion Eyes: Redness, itchy Cardiovascular: Positive for leg swelling. Skin: Eczema Gastrointestinal: Heartburn, reflux, bitter taste, nausea, diarrhea All other systems reviewed and are negative. Allergies, medications, past medical/ surgical history were reviewed and updated in [facility]. Allergies: Atropine Medications: Outpatient Prescriptions Marked as Taking for the 01/17/17 encounter (Office Visit) with Irma Schroeder MD Medication Sig Dispense Refill ??? gabapentin (NEURONTIN) 300 mg Capsule Bedtime ??? multivitamin (THERAGRAN) Tablet Take 1 tablet by mouth daily. ??? Magnesium 200 mg Tablet Take by [...] mg Tablet Take 100 mg by mouth daily. ??? hydrochlorothiazide (HYDRODIURIL) 25 mg tablet Past Medical and Social History: Past Medical History: Diagnosis Date ??? GERD (gastroesophageal reflux disease) Past Surgical History: Procedure Laterality Date ??? TONSILLECTOMY Family history: Family History Problem Relation Age of Onset ??? Asthma Daughter Social history: Social History Social History ??? Marital status: Spouse name: N/A ??? Number of children: N/A ??? Years of education: N/A Social History Main Topics ??? Smoking status: Never Smoker ??? Smokeless tobacco: Never Used ??? Alcohol use No ??? Drug use: No ??? Sexual activity: Not Asked Other Topics Concern ??? None Social History Narrative Physical Exam: Vital signs reviewed. Most Recent Vitals: 01/17/17 1316 BP: 133/90 Pulse: 75 Normal Except General: - No apparent distress [...] - No significant cervical, supraclavicular, infraclavicular, axillary or inguinal lymphadenopathy Musculoskeletal: - Nl gait and station Extremities: - No clubbing, cyanosis, or edema Skin: - No rashes Neuro: - Nl gait and station Psych: - Nl and age appropriate mood and affect - Judgement and insight intact TESTS/PROCEDURES 01-17-17 02/19/2017 Allergy skin prick tests # tests: 54 Interpretation: Appropriate histamine, saline and glycerine controls. Negative tests to: Other: DF dust mite, DP dust mite, cat, dog, cockroach; Grass pollens: Christos, [place] blue, orchard, Leonardo grass, [place] grass; Tree pollens: rosey, michael, birch, black walnut, eastern red cedar, elm, hickory, maple, oak, pine, poplar, eastern sycamore; [place] pollens: cocklebur, mugwort, pigweed, giant ragweed, sheep sorrel, plantain; Mold spores: Aspergillus mix, Alternaria, Penicillium, Cladosporium, Helminthosporium, Curvularia, Epicoccum, Fusarium, Mucor, Stemphyllium Solani, A. Fumigatus Foods: Egg, milk, soy, wheat, peanut, cantaloupe, grapefruit, lemon, orange, pineapple, tomato, watermelon IMPRESSION/REPORT/PLAN # Chronic diarrhea # Flushing # Weight gain # Thyroid disease # Intraepithelial lymphocytes on SB biopsy - Chronic diarrhea and flushing are unlikely to be related to an IgE- mediated food allergy. Her allergy skin tests were reviewed and unremarkable to common food allergens and foods that she has identified as possible triggers. Her chronic diarrhea and flushing ma be secondary to a food intolerance or sensitivity. The intraepithelial lymphocytes on SB biopsy may be secondary to Celiac disease. The differential for flushing is broad and includes mast cell disorder. - Recommend checking Celiac disease cascade - Will evaluate for mast cell disorder by checking baseline serum tryptase, 24 hour urine tests to beta prostaglandin and n- methylhistamine to evaluate for mast cell disorder - Will check TSH, free T4 and total T3 b/c of history of thyroid disease and weight gain. - Will check CMP to evaluate for underlying kidney or liver disorder causing diarrhea and flushing - May try taking Zyrtec 10mg once daily and observe for improvement in flushing - Avoid NSAIDs, friction, hot showers, alcohol since they can exacerbate Flushing -Take picture of rash and bring to follow-up appointment -Follow-up with legal instructor for management of thyroid disease - recommend she follow up with PCP for management of her chronic diarrhea, weight gain, and abnormalSB biopsy. Consider further evaluation for disorders related to intraepithelial lymphocytes as listed by pathologist. # Chronic rhinitis # Conjunctivitis - Allergy skin tests reviewed and were unremarkable for an environmental trigger. - Rhinitis and conjunctivitis are unlikely to be related to a common environmental trigger with negative skin tests. Most likely rhinitis and conjunctivitis are non- IgE mediated. - If increase in severity may try OTC ketotifen eye drops and/ or nasal steroid spray ie Nasacort per policy value calculator's recommendations. # Elevated WBC and lymphocytosis on labs 10/2016 - Will check CBC with diff to monitor trend. If persistently elevated consider hematology referral for further evaluation. # Elevated blood pressure - No history of hypertension - Recommend continued monitoring and follow up with primary provider for further evaluation and management of elevated blood pressure Orders Placed This Encounter Procedures ??? Celiac Sero Mobridge ??? CBC (with Diff) ??? Comprehensive metabolic panel (non-fasting) ??? TSH ??? T4, free ??? T3 Total ??? Tryptase ??? N-Methylhistamine, 24 Hr Urine ??? 2,3 Dinor 11 B-Prostaglandin, Urine No Follow-up on file. eDH record was reviewed. Written instructions were reviewed and provided to the patient. No learning barriers were identified. The risks, benefits, alternatives and indications for the use of mediations prescribed or recommended during today's visit were reviewed with the patient. The patient understood and agreed with what was discussed. All questions were answered. - documented in this encounter Plan of Treatment Upcoming Encounters Date Type Specialty Care Team Description 02/08/2022 TH Visit (TeleHealth) General Surgery Rylie Rea, DIRECTOR BIOSTATISTICS [facility] [address] Keiry Chatterjee, RD [facility] [place] [address] documented as of this encounter Procedures Procedure Name Priority Date/Time Associated Diagnosis Comme nts ALLERGY SCAN 01/17/2017 12:00 AM Results for this EDT procedure are i n the results section . ALLERGY SCAN 01/17/2017 12:00 AM Results for this EDT procedure are i n the results section . documented in this encounter Results SCAN DOC: ALLERGY (01/17/2017 12:00 AM EDT) Narrative 01/17/2017 12:00 AM EDT This result has an attachment that is no t available. Ordered by an unspecified provider. Scanning Provider MEDIA MGR SCAN EXT ORDR/RSLT SCAN DOC: ALLERGY (01/17/2017 12:00 AM EDT) Narrative 01/17/2017 12:00 AM EDT This result has an attachment that is no t available. Ordered by an unspecified provider. Scanning Provider MEDIA MGR SCAN EXT ORDR/RSLT documented in this encounter Visit Diagnoses Diagnosis Marylou's disease Chronic lymphocytic thyroiditis Chronic urticaria Other specified urticaria Flushing Diarrhea, unspecified type Lymphocytosis Lymphocytosis (symptomatic) Elevated blood pressure reading Elevated blood pressure reading without diagnosis of hypertension Chronic rhinitis, unspecified type Conjunctivitis of both eyes, unspecified conjunctivitis type documented in this encounter Care Teams Pediatrics Physician Relationship Specialty Start Date End Date Osiris Garcia APRN PCP - General Internal Medicine 06/02/16 04/04/[address] [place] [address] documented as of this encounter
--- OUTSIDE RECORDS SUMMARY | 2022-02-03 02:30 | XMS_ITS | Encounter Summary ---
:1970 Author Organization [facility] [place] [address] Care Team Providers Name Role Phone Huyen Ramon Primary Care Provider Encounter Details Date Type Department Care Team Description 07/25/2019 External [facility] [address] [place] [address] Social History Tobacco Use Types Packs/Day Years Used Date Never Smoker Smokeless Tobacco: Never Used Alcohol Use Standard Drinks/Week Comments No 0 (1 standard drink = 0.6 oz pure alcoho l) Sex Assigned at Date Recorded Not on file documented as of this encounter Progress Notes Forest Snyder RN - 07/25/2019 2:08 PM EDT Lab values added per documents received via fax from provider office. Thank you, Forest Snyder RN 07/25/2019 2:37 PM documented in this encounter Plan of Treatment Upcoming Encounters Date Type Specialty Care Team Description 02/08/2022 TH Visit (TeleHealth) General Surgery Rylie Rea, [facility] [place] [address] Keiry Chatterjee, RD [facility] [address] [place] [address] documented as of this encounter Goals Goal [...] Name Priority Date/Time Associated Diagnosis Comme nts [facility] EXTERNAL RESULT Routine 07/18/2019 Results for this PANEL procedure are i n the results section . [facility] EXTERNAL RESULT Routine 07/09/2019 Results for this PANEL procedure are i n the results section . [facility] EXTERNAL RESULT Routine 07/03/2019 Results for this PANEL procedure are i n the results section . [facility] EXTERNAL RESULT Routine 06/24/2019 Results for this PANEL procedure are i n the results section . [facility] EXTERNAL RESULT Routine 06/23/2019 Results for this PANEL procedure are i n the results section . FERRITIN Routine 06/23/2019 Results for thi s procedure are i n the results section . [facility] EXTERNAL RESULT Routine 06/16/2019 Results for this PANEL procedure are i n the results section . [facility] EXTERNAL RESULT Routine 06/12/2019 Results for this PANEL procedure are i n the results section . [facility] EXTERNAL RESULT Routine 06/12/2019 Results for this PANEL procedure are i n the results section . [facility] EXTERNAL RESULT Routine 06/10/2019 Results for this PANEL procedure are i n the results section . [facility] EXTERNAL RESULT Routine 06/10/2019 Results for this PANEL procedure are i n the results section . [facility] EXTERNAL RESULT Routine 06/05/2019 Results for this PANEL procedure are i n the results section . [facility] EXTERNAL RESULT Routine 06/05/2019 Results for this PANEL procedure are i n the results section . TSH Routine 05/19/2019 Results for thi s procedure are i n the results section . HEMOGRAM Routine 05/05/2019 Results for thi s procedure are i n the results section . CBC (WITH DIFF) Routine 03/29/2019 Results for this procedure are i n the results section . HEMOGRAM Routine 03/24/2019 Results for thi s procedure are i n the results section . CBC (WITH DIFF) Routine 03/03/2019 Results for this procedure are i n the results section . CBC (WITH DIFF) Routine 01/14/2019 Results for this procedure are i n the results section . documented in this encounter Results (ABNORMAL) [facility] External Results (07/18/2019) Analysis Performed At [facility] Time Signature Glucose 157 (ExtH) Fasting Comment: 74-106 BUN 21 (ExtH) Comment: 7-18 Creatinine 1.05 (ExtH) Comment: 0.55-1.05 Sodium 135 (ExtL) Comment: 136-145 Potassium 4.1 Chloride 99 CO2 30 Anion Gap 6 Calcium 9.2 Magnesium 1.7 (ExtL) mg/dL Comment: 1.8-2.4 Specimen (Source) Anatomical Location Collection Method / Collectio n Time Received Time / Laterality Volume 07/18/2019 Historical Provider POINT OF CARE TEST ORDERABLE S (ABNORMAL) [facility] External Results (07/09/2019) Analysis Performed At [facility] logis Time Signature Glucose 144 (ExtH) Fasting Comment: 74-106 BUN 19 (ExtH) Comment: 7-18 Creatinine 0.91 Sodium 138 Potassium 3.5 Chloride 101 CO2 29 Anion Gap 8 Calcium 9.3 Magnesium 1.8 mg/dL Specimen (Source) Anatomical Location Collection Method / Collectio n Time Received Time / Laterality Volume 07/09/2019 Historical Provider POINT OF CARE TEST ORDERABLE S (ABNORMAL) [facility] External Results (07/03/2019) Analysis Performed At [facility] Signature Glucose 141 (ExtL) Fasting Comment: 74-106 BUN 18 Creatinine 0.97 Sodium 138 Potassium 3.4 (ExtL) Comment: 3.5-5.1 Chloride 100 CO2 31 Anion Gap 7 Calcium 8.9 Magnesium 1.8 mg/dL Specimen (Source) Anatomical Location Collection Method / Collectio n Time Received Time / Laterality Volume 07/03/2019 Historical Provider MD POINT OF CARE TEST ORDERABLE S (ABNORMAL) [facility] External Results (06/24/2019) Analysis Performed At [facility] Signature Glucose 140 (ExtH) Fasting Comment: 74-106 BUN 21 (ExtH) Comment: 7-18 Creatinine 0.86 Sodium 136 Potassium 4.0 Chloride 101 CO2 26 Anion Gap 10 Calcium 8.9 Magnesium 2.8 (ExtH) mg/dL Comment: 1.8-2.4 Specimen (Source) Anatomical Location Collection Method / Collectio n Time Received Time / Laterality Volume 06/24/2019 Historical Provider POINT OF CARE TEST ORDERABLE S Ferritin (06/23/2019) athologist Signature Ferritin 31 Specimen (Source) Anatomical Location Collection Method / Collectio n Time Received Time / Laterality Volume Blood specimen 06/23/2019 (specimen) Historical Provider CHEMISTRY ORDERABLES (ABNORMAL) [facility] External Results (06/23/2019) Analysis Performed At [facility] Signature Glucose 171 (ExtH) Fasting Comment: 74-106 BUN 18 Creatinine 0.9 Sodium 138 Potassium 3.0 Chloride 102 CO2 25 Anion Gap 11 Calcium 8.8 Magnesium 1.5 (ExtL) mg/dL Comment: 1.8-2.4 Specimen (Source) Anatomical Location Collection Method / Collectio n Time Received Time / Laterality Volume 06/23/2019 Historical Provider POINT OF CARE TEST ORDERABLE S (ABNORMAL) [facility] External Results (06/16/2019) Analysis Performed At [facility] Signature Glucose 115 (ExtH) Fasting Comment: 74-106 BUN 19 (ExtH) Comment: 7-18 Creatinine 0.96 Sodium 140 Potassium 3.8 Chloride 102 CO2 29 Anion Gap 9 Calcium 9.0 Magnesium 1.7 mg/dL Comment: 1.8-2.4 Specimen (Source) Anatomical Location Collection Method / Collectio n Time Received Time / Laterality Volume 06/16/2019 Historical Provider MD POINT OF CARE TEST ORDERABLE S (ABNORMAL) [facility] External Results (06/12/2019) Analysis Performed At [facility] Time Signature Glucose 122 (ExtH) Fasting Comment: 74-106 BUN 25 (ExtH) Comment: 7-18 Creatinine 0.92 Sodium 138 Potassium 3.4 (ExtL) Comment: 3.5-5.1 Chloride 101 CO2 28 Anion Gap 9 Magnesium 1.6 (ExtL) mg/dL Comment: 1.8-2.4 Specimen (Source) Anatomical Location Collection Method / Collectio n Time Received Time / Laterality Volume 06/12/2019 Historical Provider POINT OF CARE TEST ORDERABLE S (ABNORMAL) [facility] External Results (06/12/2019) Analysis Performed At [facility] Time Signature Glucose 122 (ExtH) Fasting Comment: 74-106 BUN 25 (ExtH) Comment: 7-18 Creatinine 0.92 Sodium 138 Potassium 3.4 (ExtL) Comment: 3.5-5.1 Chloride 101 CO2 28 Anion Gap 9 Magnesium 1.6 (ExtL) mg/dL Comment: 1.8-2.4 Specimen (Source) Anatomical Location Collection Method / Collectio n Time Received Time / Laterality Volume 06/12/2019 Historical Provider POINT OF CARE TEST ORDERABLE S (ABNORMAL) [facility] External Results (06/10/2019) Analysis Performed At [facility] Time Signature Glucose 133 (ExtH) Fasting Comment: 74-106 BUN 18 Creatinine 1.0 Sodium 140 Potassium 3.2 (ExtL) Comment: 3.5-5.1 Chloride 100 CO2 32 Anion Gap 8 Calcium 9.0 Magnesium 1.7 (ExtL) mg/dL Comment: 1.8-2.4 Specimen (Source) Anatomical Location Collection Method / Collectio n Time Received Time / Laterality Volume 06/10/2019 Historical Provider POINT OF CARE TEST ORDERABLE S (ABNORMAL) [facility] External Results (06/10/2019) Analysis Performed At [facility] Signature Glucose 133 (ExtH) Fasting Comment: 74-106 BUN 18 (ExtH) Comment: 7-18 Creatinine 1.0 Sodium 140 Potassium 3.2 (ExtL) Comment: 3.5-5.1 Chloride 100 CO2 32 Anion Gap 8 Calcium 1.7 (ExtL) Comment: 1.8-2.4 Specimen (Source) Anatomical Location Collection Method / Collectio n Time Received Time / Laterality Volume 06/10/2019 Historical Provider POINT OF CARE TEST ORDERABLE S (ABNORMAL) [facility] External Results (06/05/2019) Analysis Performed At [facility] Signature Glucose 132 (ExtH) Fasting Comment: 74-106 BUN 19 (ExtH) Comment: 7-18 Creatinine 0.97 Sodium 139 Potassium 3.4 (ExtL) Comment: 3.5-5.1 Chloride 101 CO2 26 Anion Gap 12 (ExtH) Comment: 3-11 Calcium 8.9 Magnesium 1.8 mg/dL Specimen (Source) Anatomical Location Collection Method / Collectio n Time Received Time / Laterality Volume 06/05/2019 Historical Provider POINT OF CARE TEST ORDERABLE S (ABNORMAL) [facility] External Results (06/05/2019) Analysis Performed At [facility] Signature Glucose 132 (ExtH) Fasting Comment: 74-106 BUN 19 (ExtH) Comment: 7-18 Creatinine 0.97 Sodium 139 Potassium 3.4 (ExtL) Comment: 3.5-5.1 Chloride 101 CO2 26 Anion Gap 12 (ExtH) Comment: 3-11 Magnesium 1.8 mg/dL Specimen (Source) Anatomical Location Collection Method / Collectio n Time Received Time / Laterality Volume 06/05/2019 Historical Provider POINT OF CARE TEST ORDERABLE S TSH (05/19/2019) athologist Signature TSH 3.69 Specimen (Source) Anatomical Location Collection Method / Collectio n Time Received Time / Laterality Volume Blood specimen 05/19/2019 (specimen) Historical Provider CHEMISTRY ORDERABLES (ABNORMAL) Hemogram (05/05/2019) athologist Signature WBC 9.78 RBC 4.64 Hemoglobin 13.2 Hematocrit 39.8 MCV 85.8 MCH 28.4 MCHC 33.2 RDWCV 14.0 Platelets 409 (ExtH) Comment: 130-400 MPV 9.5 Specimen (Source) Anatomical Location Collection Method / Collectio n Time Received Time / Laterality Volume Blood specimen 05/05/2019 (specimen) Historical Provider HEMATOLOGY ORDERABLES (ABNORMAL) CBC (with Diff) (03/29/2019) P athologist Signature WBC 8.01 RBC 4.46 Hemoglobin 12.7 Hematocrit 37.6 MCV 84.3 MCH 28.5 MCHC 33.8 RDWCV 13.7 Platelets 423 (ExtH) Comment: 130-400 MPV 9.3 Neutrophils % 46.1 Lymphocytes % 38.3 Monocytes % 8.5 Eosinophil % 6.4 Basophils % 0.6 Immature Gran % 0.1 Neutr Abs (ANC) 3.69 Lymphocyte Abs 3.07 Monocyte Abs 0.68 Eosinophil Abs 0.51 Basophil Abs 0.05 Specimen (Source) Anatomical Location Collection Method / Collectio n Time Received Time / Laterality Volume Blood specimen 03/29/2019 (specimen) Historical Provider HEMATOLOGY ORDERABLES (ABNORMAL) Hemogram (03/24/2019) P athologist Signature WBC 8.54 RBC 4.81 Hemoglobin 13.6 Hematocrit 40.4 MCV 84.0 MCH 28.3 MCHC 33.7 RDWCV 13.8 Platelets 494 (ExtH) Comment: 130-400 MPV 9.8 Specimen (Source) Anatomical Location Collection Method / Collectio n Time Received Time / Laterality Volume Blood specimen 03/24/2019 (specimen) Historical Provider HEMATOLOGY ORDERABLES CBC (with Diff) (03/03/2019) P athologist Signature WBC 10.41 RBC 4.76 Hemoglobin 13.7 Hematocrit 39.6 MCV 83.3 MCH 28.8 MCHC 34.6 RDWCV 13.8 Platelets 428 MPV 9.0 Neutrophils % 53.5 Lymphocytes % 34.5 Monocytes % 8.3 Eosinophil % 3.2 Basophils % 0.4 Immature Gran % 0.1 Neutr Abs (ANC) 5.58 Lymphocyte Abs 3.59 Monocyte Abs 0.86 Eosinophil Abs 0.33 Basophil Abs 0.04 Specimen (Source) Anatomical Location Collection Method / Collectio n Time Received Time / Laterality Volume Blood specimen 03/03/2019 (specimen) Historical Provider HEMATOLOGY ORDERABLES CBC (with Diff) (01/14/2019) P athologist Signature WBC 9.12 RBC 4.93 Hemoglobin 14.1 Hematocrit 41.7 MCV 84.6 MCH 28.6 MCHC 33.8 RDWCV 13.6 Platelets 424 MPV 8.9 Neutrophils % 58.3 Lymphocytes % 31.0 Monocytes % 6.1 Eosinophil % 3.9 Basophils % 0.5 Immature Gran % 0.2 Neutr Abs (ANC) 5.3 Lymphocyte Abs 2.83 Monocyte Abs 0.56 Eosinophil Abs 0.36 Basophil Abs 0.05 Specimen (Source) Anatomical Location Collection Method / Collectio n Time Received Time / Laterality Volume Blood specimen 01/14/2019 (specimen) Historical Provider HEMATOLOGY ORDERABLES documented in this encounter Visit Diagnoses Not on filedocumented in this encounter Care Teams Retail Loan Originator Relationship Specialty Start Date End Date Huyen Ramon DO PCP - General Family Medicine 04/05/[address] [place] [address] documented as of this encounter
--- OUTSIDE RECORDS SUMMARY | 2022-02-03 02:30 | XMS_ITS | Encounter Summary ---
:1970 Author Organization [facility] [place] [address] Care Team Providers Name Role Phone Huyen Ramon DO Primary Care Provider Encounter Details Date Type Department Care Team Description 06/05/2019 Ancillary Procedure Radiology Library at Pricila Ramon [facility] [place], [place] [facility] [address] [place] [phone] (Wo rk) Social History Tobacco Use Types [...] TH Visit (TeleHealth) General Surgery Rylie Rea, PATIENT CARE DIRECTOR [facility] [place] [address] Keiry Chatterjee, RD [facility] [place] [address] documented as of this encounter Procedures Procedure Name Priority Date/Time Associated Diagnosis Comme nts FILM LIBRARY Routine 06/05/2019 12:00 AM Results for this STORAGE ONLY DX EST procedure ar e in SPINE the results section. documented in this encounter Results Film Library- Storage Only DX Spine (06/05/2019 12:00 AM EST) Specimen (Source) Anatomical Location Collection Method / Collectio n Time Received Time / Laterality Volume Narrative [facility] - 07/01/2019 3:48 PM EDT This exam is auto-finalizing. It's purpo se is for storage only. Huyen Ramon DO IM FILM LIBRARY ORDERABLES Performing Organization Address City/State/ZIP Code Phon e Number [place], [place] documented in this encounter Visit Diagnoses Not on filedocumented in this encounter Care Teams Locksmith Relationship Specialty Start Date End Date Huyen Ramon DO PCP - General Family Medicine 04/05/[address] [place] [address] documented as of this encounter
--- OUTSIDE RECORDS SUMMARY | 2022-02-03 02:30 | XMS_ITS | Encounter Summary ---
:1970 Author Organization [facility] [place] [address] Care Team Providers Name Role Phone Huyen Ramon DO Primary Care Provider Encounter Details Date Type Department Care Team Description 05/30/2019 Ancillary Procedure Radiology Library at Pricila Ramon [facility] [place], DO [facility] [address] [place] [phone] (Wo rk) Social History Tobacco Use Types [...] TH Visit (TeleHealth) General Surgery Rylie Rea, HOME LENDING OFFICER [facility] [place] [address] Keiry Chatterjee, RD [facility] [place] [address] documented as of this encounter Procedures Procedure Name Priority Date/Time Associated Diagnosis Comme nts FILM LIBRARY Routine 05/30/2019 12:00 AM Results for this STORAGE ONLY DX EST procedure ar e in SPINE the results section. documented in this encounter Results Film Library- Storage Only DX Spine (05/30/2019 12:00 AM EST) Specimen (Source) Anatomical Location Collection Method / Collectio n Time Received Time / Laterality Volume [facility]ative [facility]01/2019 3:46 PM EDT This exam is auto-finalizing. It's purpo se is for storage only. Huyen Ramon DO IM FILM LIBRARY ORDERABLES Performing Organization Address City/State/ZIP Code Phon e Number [place], [place] documented in this encounter Visit Diagnoses Not on filedocumented in this encounter Care Teams Head Machinist Relationship Specialty Start Date End Date Huyen Ramon DO PCP - General Family Medicine 04/05/[address] [place] [address] documented as of this encounter
--- OUTSIDE RECORDS SUMMARY | 2022-02-03 02:30 | XMS_ITS | Encounter Summary ---
:1970 Author Organization [facility] [place] [address] Care Team Providers Name Role Phone Sushil Loya MD Primary Care Provider [phone] Reason for Visit Diagnostic Test (Routine) - Closed Specialty Diagnoses / Procedures Referred By Contact Refer red To Contact Radiology Diagnoses [place] Diarrhea Yarelis Guzman MD [facility] Rad Nuclear Med Procedures NM OctreoScan [facility] Drive [place] [address] [place] [address] Referral ID Status Reason Start Date Expiration Date Visits V isits Requested Authorized [id number] Closed Specialty 10/01/2015 09/30/2016 1 1 Service Requested Encounter Details Date Type Department Care Team Description 10/15/2015 Hospital Encounter Nuclear Medicine at Olya guan Mary Hitchcock MD [facility] [place] [address] ENDOCRINOLOGY DEPT [phone] [place], [place] [address] (Wo rk) Social History Tobacco [...] TH Visit (TeleHealth) General Surgery Rylie Rea, BRIM FLEXER [facility] [place] [address] Keiry Chatterjee, RD [facility] [place] [address] documented as of this encounter Procedures Procedure Name Priority Date/Time Associated Diagnosis Comme nts NM OCTREOSCAN Routine 10/15/2015 11:20 AM [place] Results for this EDT Diarrhea procedure are i n the results section . documented in this encounter Results NM OctreoScan (10/15/2015 11:20 AM EDT) Anatomical Region Laterality Modality Nuclear Medicine Specimen (Source) Anatomical Location Collection Method / Collectio n Time Received Time / Laterality Volume Impressions 10/15/2015 12:58 PM EDT No somatostatin receptor positive tumor is detected. Narrative 10/15/2015 12:58 PM EDT EXAMINATION: ULIS MARTINEZ CLINICAL HISTORY: 44 yo F with symptoms [...] Note Michael Mccormick MD - 10/15/2015 EXAMINATION: LUIS RUIZOSCCHERYL CLINICAL HISTORY: 44 yo F with symptoms [...] positive tumor is detected. Yarelis Guzman MD IMG NM ORDERABLES documented in this encounter Visit Diagnoses Not on filedocumented in this encounter Care Teams Care Manager Relationship Specialty Start Date End Date Sushil Loya MD PCP - General General Internal Medicine 09/13/15 [address] [place] [address] documented as of this encounter
--- OUTSIDE RECORDS SUMMARY | 2022-02-03 02:30 | XMS_ITS | Encounter Summary ---
:1970 Author Organization [facility] [place] [address] Care Team Providers Name Role Phone Osiris Garcia APRN Primary Care Provider Encounter Details Date Type Department Care Team Description 12/18/2017 Telephone Dermatology at [facility] Calista Bruno PA [address] [place] [address] [facility] [phone] [place] [address] (Wo rk) Social History Tobacco Use Types Packs/Day Years Used Date Never Smoker Smokeless Tobacco: Never Used Alcohol Use Standard Drinks/Week Comments No 0 (1 standard drink = 0.6 oz pure alcoho l) Sex Assigned at Date Recorded Not on file documented as of this encounter Miscellaneous Notes Telephone Encounter - Yoselin Stout - 12/18/2017 2:16 PM EDT Monisha called and left a msg, wanting to schedule an appointment. I call back and left a msg with mydirect call back # documented in this encounter Plan of Treatment Upcoming Encounters Date Type Specialty Care Team Description 02/08/2022 TH Visit (TeleHealth) General Surgery Rylie Rea APRN [facility] [place] [address] [facility] [place] [address] documented as of this encounter Visit Diagnoses Not on filedocumented in this encounter Care Teams Psychiatry Adult Physician Relationship Specialty Start Date End Date Osiris Garcia APRN PCP - General Internal Medicine 06/02/16 04/04/[address] [place] [place] [address] documented as of this encounter
--- OUTSIDE RECORDS SUMMARY | 2022-02-03 02:30 | XMS_ITS | Encounter Summary ---
:1970 Author Organization [facility] [place] [address] Care Team Providers Name Role Phone Tristen Huyenjenna Tucker DO Primary Care Provider Encounter Details Date Type Department Care Team Description 07/25/2019 Telephone Weight and Wellness at [facility] Izabela Hall [address] [place] [address] Social History Tobacco Use Types Packs/Day [...] TH Visit (TeleHealth) General Surgery Rylie Rea, VOCATIONAL PSYCHOLOGIST [facility] [place] [address] Keiry Chatterjee, RD [facility] [place] [address] documented as of this encounter Goals Goal [...] on filedocumented in this encounter Care Teams Disposal Operator Relationship Specialty Start Date End Date Huyen Ramon DO PCP - General Family Medicine 04/05/[address] [place] [address] documented as of this encounter
--- OUTSIDE RECORDS SUMMARY | 2022-02-03 02:30 | XMS_ITS | Encounter Summary ---
:1970 Author Organization [facility] [place] [address] Care Team Providers Name Role Phone Sushil Loya MD Primary Care Provider [phone] Reason for Visit Diagnostic Test (Routine) - Closed Specialty Diagnoses / Procedures Referred By Contact Refer red To Contact Radiology Diagnoses [place] Diarrhea Yarelis Guzman MD [facility] Rad Nuclear Med Procedures NM OctreoScan [facility] [place] [address] [place] [address] Referral ID Status Reason Start Date Expiration Date Visits V isits Requested Authorized [id number] Closed Specialty 10/01/2015 09/30/2016 1 1 Service Requested Encounter Details Date Type Department Care Team Description 10/14/2015 Hospital Encounter Nuclear Medicine at [facility]ly[facility] guan Mary Hitchcock [place] [address] ENDOCRINOLOGY DEPT [phone] [place], [place] [address] (Wo rk) Social History Tobacco [...] TH Visit (TeleHealth) General Surgery Rylie Rea, JIRA DEVELOPER [facility] [place] [address] Keiry Chatterjee, RD [facility] [place] [address] documented as of this encounter Procedures Procedure [...] detected. Narrative 10/15/2015 12:58 PM EDT EXAMINATION: LUIS MARTINEZ CLINICAL HISTORY: 44 yo F with [...] on filedocumented in this encounter Care Teams Police Cadet Relationship Specialty Start Date End Date Sushil Loya MD PCP - General General Internal Medicine 09/13/15 [address] [place] [address] documented as of this encounter
--- OUTSIDE RECORDS SUMMARY | 2022-02-03 02:30 | XMS_ITS | Encounter Summary ---
:1970 Author Organization [facility] [address] Care Team Providers Name Role Phone LdHuyen resendez Caitlin MOORE Primary Care Provider Encounter Details Date Type Department Care Team Description 11/30/2018 External Results Radiation Oncology a t [address] [phone] Social History Tobacco Use Types Packs/Day Years Used Date Never Smoker Smokeless Tobacco: Never Used Alcohol Use Standard Drinks/Week Comments No 0 (1 standard drink = 0.6 oz pure alcoho l) Sex Assigned at Date Recorded Not on file documented as of this encounter Plan of Treatment Upcoming Encounters Date Type Specialty Care Team Description 02/08/2022 TH Visit (TeleHealth) General Surgery Rylie Rea, MEDIA PRODUCTION OPERATOR [facility] [place] [address] Keiry Chatterjee, RD [facility] [place] [address] documented as of this encounter Procedures Procedure Name Priority Date/Time Associated Diagnosis Comme nts ECG SCAN Routine 11/30/2018 Results for thi s procedure are in the resu lts section. documented in this encounter Results Scan Doc: ECG (11/30/2018) Narrative This result has an attachment that is no t available. Historical Provider MEDIA MGR SCAN EXT ORDR/RSLT documented in this encounter Visit Diagnoses Not on filedocumented in this encounter Care Teams Corporate Quality Engineer Relationship Specialty Start Date End Date Huyen Ramon DO PCP - General Family Medicine 04/05/[address] [place] [address] documented as of this encounter
--- OUTSIDE RECORDS SUMMARY | 2022-02-03 02:31 | XMS_ITS | Encounter Summary ---
:1970 Author Organization [facility] [place] [address] Care Team Providers Name Role Phone Sushil Loya MD Primary Care Provider [phone] Reason for Visit Consultation (Routine) - Closed Specialty Diagnoses / Procedures Referred By Contact Refer red To Contact Endocrinology Diagnoses abnormal thyroid blood test Lexie Hilario MD [facility] Endocrinology [address] [place] [address] [place] [id number] Referral ID Status Reason Start Date Expiration Date Visits V isits Requested Authorized [id number] Closed Consult, 07/27/2015 07/26/2016 1 1 [facility] Encounter Details Date Type Department Care Team Description 09/13/2015 Office Visit Endocrinology at [facility] Shyann Kelly, Marylou's thyroiditis; [facility] MD Yarelis Chronic diarrhea; [facility] Weight gain; [place] [address] CENTER Menstrual irregularity; [phone] ENDOCRINOLOGY Hirsutism; DEPT [address], [place] [address] Social History Tobacco Use Types Packs/Day Years Used Date Never Smoker Sex Assigned at Date Recorded Not on file documented as of this encounter Last Filed Vital Signs Vital Sign Reading Time Taken Comments Blood Pressure 137/78 09/13/2015 9:27 AM EDT Pulse 74 09/13/2015 9:27 AM EDT Temperature - - Respiratory Rate - - Oxygen Saturation - - Inhaled Oxygen Concentration - - Weight 103.4 kg (228 lb) 09/13/2015 9:27 AM EDT Height 165.1 cm (5' 5) 09/13/2015 9:27 AM EDT Body Mass Index 37.94 09/13/2015 9:27 AM EDT documented in this encounter Progress Notes Yarelis Kelly MD - 09/13/2015 9:48 AM EDT Endocrinology New Patient Consultation C: Referred to Endocrinology by PCP (Dr. Hilario, who is no longer in the office) for further evaluation of high TPO titer with normal TSH HISTORY OF PRESENT ILLNESS: Ms. Monisha Das is a 44 y.o. year old lady with history significant for obesity, elevated testosterone level in her 20s, prediabetes, and hypertension, recently found to have a high TPO titer, incontext with a normal range TSH. In May 2015, in workup by a relays draftsperson for fatigue and weight gain, she was found to have a high TPO titer of >1300, TSH was in the normal range, at 3.13 (ULN 3.74). TSH was rechecked on 08/27/15 and was 3.03. TPO titer remained at >1300. At today's visit, she relays that has been having symptoms for the past 20 years, as follows. She has had a fairly rapid weight gain despite regular exercise and a fairly restrictive diet, gained 30 lbs in the past 2 years, 15 lbs over the past 6 months. Loose stools 8x/day 2L/day, watery around menstrual periods. She had a colonoscopy in March 2014 that noted multiple AVMs throughout the colon, and a polyp, which on surgical pathology was noted to be precancerous. She was told by the appetizer packer that the appearance of her colon was not consistent with Crohn's disease or ulcerative colitis, but could be allergic; she is seeing an mold maker plastic molds next month to address this. Has LE edema as well, takes HCTZ for that. Over the past 2-3 months, she has been experiencing more fatigue, sluggishness, despite trying to live an active lifestyle, and loose stools have gotten worse. Sensitive to cold past few months as well, prefers being in the heat. Menses had been regular q26d, until about 2 months ago when she started having spotting every 2 weeks. Of note she had 2 endometrial ablations in the past for heavy menses (2009 and 2012). To her recollection, thyroid levels were checked in both of those settings, and were euthyroid. She is currently under the care of a bank sales and service manager (Dr. Linda Tenorio [facility]), who is planning to do an endometrial biopsy in the near future, but was interested in comment from Endocrinology regarding a possible thyroid contribution to the spotting. A transvaginal pelvis ultrasound done in April 2014 showed a 2.7cm fundal uterine fibroid. The left ovarywas unremarkable; the right ovary could not be visualized transvaginally but appeared unremarkable transabdominally. She has also been having more dysphagia for past few months. Had an upper endoscopy recently that was negative, biopsies were taken for celiac, were negative. She notes that the dysphagia does feel better when she takes antacids. Flushed cheeks recurring over the past year or so, intermittent, feels funny when this happens. She recalls having bee evaluated in college 25 years ago for Eldon's syndrome because she developed a secondary amenorrhea and had facial plethora and dark hair on backs of thighs, was found to have excess testosterone, was put on aldactone, but discontinued it after a while, she doesn't recall if it helped (it must have). No headaches. No peripheral visual deficits. No polyuria or polydipsia. Fasting lipids have gotten worse recently than they used to be (03/2015 - TG 252, LDL 103, HDL 50). A 25-OH-D level checked on 08/27/15 was 22; she is seeing her PCP in the near future to address this. Vitamin B12 level was WNL at 761. Iron levels in May 2015 were also WNL. She also had a brain MRI at [facility] In Mar 2014 as part of workup formigraine headaches, which commented on the pituitary appearing intact. Only the report is available to me today, so it is uncertain whether the resolution of this MRI was sufficient to fully assess the pituitary. Just a couple weeks ago, on August 31, 2015, she underwent a CT-chest PE protocol and a CT abd/pelvis with IV and po contrast; these were revealing only of a hiatal hernia, and an enlarged uterus possiblycontaining fibroids. No other masses were seen in the chest, abdomen, or pelvis. PAST MEDICAL HISTORY: Hypertension Reflux esophagitis Migraines with aura, well controlled now Iron deficiency Positive TG Pre-diabetes (A1c 5.9%) Precancerous colon polyp MEDICATIONS: Medications 09/13/15 0945 Medication Sig Taking? lisinopril (PRINIVIL;ZESTRIL) 20 mg Tablet Take 20 mg by mouth daily. Yes b complex vitamins Tablet Take 1 tablet by mouth daily. Yes fish oil-omega-3 fatty acids 1,000 mg Capsule Take 2 g by mouth daily. Yes buPROPion (WELLBUTRIN XL) 300 mg Tablet Sustained Release 24 hr Take 300 mg by mouth every morning. Yes topiramate (TOPAMAX) 100 mg Tablet Take 100 mg by mouth 2 times daily. Yes hydrOXYzine (ATARAX) 25 mg Tablet Take 25 mg by mouth 3 times daily as needed for Itching. Yes triamcinolone (ARISTOCORT) 0.5 % Cream Apply topically 3 times daily. Yes CIS Free Text Med - Children's Multi Vitamins Yes famotidine (PEPCID) 10 mg tablet Yes hydrochlorothiazide (HYDRODIURIL) 25 mg tablet Yes SERTRALINE HCL (ZOLOFT ORAL) Yes ferrous sulfate 325 mg (65 mg Iron) tablet ALLERGIES: Allergies Allergen Reactions ??? 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 Never Smoker Smokeless Tobacco ??? Not on file FAMILY HISTORY: No family history on file. REVIEW OF SYSTEMS: All 12 systems reviewed and negative except as noted per HPI. PHYSICAL EXAM: Vitals Office Visit from 09/13/2015 in Endocrinology Weight - Scale (!) 103.4 kg (228 lb) Height 165.1 cm (5' 5) BSA (Calculated - sq m) 2.18 sq meters BMI (Calculated) 38 Heart Rate 74 BP 137/78 Gen: NAD, AAOx3, speaking full sentences, calm pleasant demeanor, obese habitus, some truncal adiposity but overall gynoid fat distribution, espitia facies. Skin: no acanthosis nigricans, no rashes, no bruising, no purple striae, many freckles all over torso, +facial plethora, no diaphoresis Eyes: PERRL, EOMI, anicteric sclerae without injection, no proptosis or lid lag ENT: moist oral mucosa Neck: no thyromegaly, no thyroid nodules, no lymphadenopathy Pulm: CTAB, no stridor Cardiac: reg s1s2, no m/r/g MSK: mild proximal muscle weakness. Neuro: 2+ biceps and patellar DTRs, no clonus, no delay of the relaxation phase, no tremor. 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 I willrecheck her TSH again today, and also check a simultaneous free T4 and total T3 for better context, to rule out the possibility of a central hypothyroidism that a normal TSH may not be fully reflecting. If her thyroid hormone levels all come back still within the normal range, despite the high TPO level, a thyroid component would not be ascribable to the symptoms she has been experiencing. Symptoms found in hypothyroidism are nonspecific, and as such, there is a long list of differential diagnoses that could cause the same symptoms; her high TPO titer suggests a predisposition to autoimmunity, so workup for other rheumatologic conditions may be considered (and already appears to be under way by her relays draftsperson). The high level of TPO antibodies themselves are of no currently known clinical consequence other than reflecting a chronic inflammation of the thyroid parenchyma that may lead to development of hypothyroidism at some unpredictable point in the future. In regards to her rapid weight gain over the past year, since her TSH is not compelling for hypothyroidism as a cause (unless she has a component of central hypothyroidism, which we will establish with today's testing), and in context with her facial plethora, moonish faces, and mild proximal muscle weakness, I will screen her for Eldon's syndrome. We will start with [place] salivary cortisols x 2, isabela 24 hr UFC (+ Cr), the latter since I will be checking another 24 hr urine test, as described below. Regarding her loose stools, there are a couple of endocrine etiologies that can be checked for -- excess VIP secretion, and carcinoid, which could go along with the recurrence of flushing she has beenexperiencing. Of note, she is on Zoloft, which being an SSRI could result verito false positive 24hr urine 5-HIAA result, but would have a negative predictive value if the level comes back normal; if level comes back high, and suspicion for possible carcinoid remains, I will need to work with her psychiatrist to have her transition off of the zoloft temporarily for a few weeks for purposes of testing. Another possible explanation for the episodic flushing and recently menstrual irregularity could beperimenopause. I will check her HPG axis today; if these result normal, though, it could still be that she is in early perimenopause. Since she described a history of testosterone excess, I will check her androgen levels. Her transvaginal pelvic US did not reveal polycystic ovaries and she had regular menses before the spotting began recently, so despite her prediabetic status, I think PCOS is less likely. If androgen levels come back high, I might consider imaging her adrenal glands +/- ovaries for a possible testosterone secreting adenoma. Apart from transvaginal US, MRI is the next best modality to image the ovaries and can offer different information, and MRI +/- contrast is fairly equivalent to a CT with washout study in terms of evaluating the adrenals. PLAN: Orders Placed This Encounter Procedures ??? TSH ??? T4, free ??? T3 Total ??? Vasoactive Intestinal Peptide (VIP) ??? Chromogranin A ??? 5 HIAA, quantitative, urine, 24 hour ??? Creatinine, urine, 24 hour ??? Cortisol, urine, 24 hour ??? Cortisol, saliva ??? Cortisol, saliva ??? Follicle Stimulating Hormone ??? Luteinizing Hormone ??? Estradiol ??? Testosterone, total and free ??? DHEA-sulfate ??? Androstenedione ??? 17-Hydroxyprogesterone --will decide more definitive follow-up plan based on the above results --will tentatively plan f/u in 1 year, if all testing comes back unrevealing, to re-evaluate her thyroid status in the setting of her very active Marylou's thyroiditis. YARELIS KELLY MD Research Neuropsychologistbelt sander Section of Endocrinology [facility] documented in this encounter Plan of Treatment Upcoming Encounters Date Type Specialty Care Team Description 02/08/2022 TH Visit (TeleHealth) General Surgery Rylie Rea, STAPLE PROCESSING MACHINE OPERATOR [facility] [address] Keiry Chatterjee, RD [facility] [place] [address] documented as of this encounter Procedures Procedure Name Priority Date/Time Associated Comments Diagnosis CHROMOGRANIN A Routine 09/13/2015 11:09 Chronic diarrhe a Results for this AM EDT [place]ushing procedure are i n the results section. TESTOSTERONE, TOTAL AND Routine 09/13/2015 11:09 Hirsutism Results for this FREE AM EDT procedure are i n the results section. 17-HYDROXYPROGESTERONE Routine 09/13/2015 11:09 Hirsutism R esults for this AM EDT procedure are i n the results section. VASOACTIVE INTESTINAL Routine 09/13/2015 11:09 Chronic d iarrhea Results for this PEPTIDE (VIP) AM EDT [place]ushing procedure are in the results section. DHEA-SULFATE Routine 09/13/2015 11:09 Hirsutism Results for this AM EDT procedure are i n the results section. ESTRADIOL Routine 09/13/2015 11:09 Menstrual Results for this AM EDT irregularity procedure are in Hirsutism the results Flushing section. ANDROSTENEDIONE Routine 09/13/2015 11:09 Hirsutism Results for this AM EDT procedure are i n the results section. T3 TOTAL STAT 09/13/2015 11:09 Marylou's Results for this AM EDT thyroiditis procedure are i n the results section. TSH STAT 09/13/2015 11:09 Marylou's Results for this AM EDT thyroiditis procedure are i n the results section. T4, FREE STAT 09/13/2015 11:09 Marylou's Results for this AM EDT thyroiditis procedure are i n the results section. LUTEINIZING HORMONE Routine 09/13/2015 11:09 Menstrual Resu lts for this AM EDT irregularity procedure are in Hirsutism the results Flushing section. FOLLICLE STIMULATING Routine 09/13/2015 11:09 Menstrual Res ults for this HORMONE AM EDT irregularity procedure are in Hirsutism the results [place] section. documented in this encounter Results Cortisol, saliva (09/16/2015 11:03 PM EDT) athologist Signature Jayjay Saliva 97 <100 ng/dL [facility] LABORATORY Comment: REVISED RESULTS Due to a software system error, report r evised to include the reference range. The result value an d associated flagging remain unchanged. PREVIOUSLY REPORTED A S 97 (Reported 09/24/2015 15:10) Test Performed by: [facility] [place] [address] Commercial Pest Control Technician: Jun Blair II, M.D., Ph.D. Test Performed by: [facility] [place] [address] Commercial Pest Control Technician: Jun Blair II, M.D., Ph.D. Corrected from 97 ng/dL [NA] on 10/21/15 04:47 by Contributor_system, SWAYZEE. Specimen Anatomical Collection Method Collection Time Receive d Time (Source) Location / / Volume Laterality Specimen of 09/16/2015 11:03 09/20/2015 2:38 unknown material PM EDT PM EDT (specimen) Yarelis Kelly MD BODY FLUIDS AND STOOLS ORDER DAVIAN Performing Organization Address City/State/ZIP [place] [address] Cortisol, saliva (09/15/2015 11:03 PM EDT) athologist Signature Jayjay Saliva <50 <100 ng/dL [facility] LABORATORY Comment: REVISED RESULTS Due to a software system error, report r evised to include the reference range. The result value an d associated flagging remain unchanged. PREVIOUSLY REPORTED A S <50 (Reported 09/24/2015 15:11) Test Performed by: [facility] - [facility] [address] [place] [address] Commercial Pest Control Technician: Jun Blair II, M.D., Ph.D. Test Performed by: [facility] - [address] [address] Commercial Pest Control Technician: Jun Blair II, M.D., Ph.D. Corrected from <50 ng/dL [NA] on 6 04:40 by Contributor_system, SWAYZEE. Specimen Anatomical Collection Method Collection Time Receive d Time (Source) Location / / Volume Laterality Specimen of 09/15/2015 11:03 09/20/2015 2:38 unknown material PM EDT PM EDT (specimen) Yarelis Kelly MD BODY FLUIDS AND STOOLS ORDER DAVIAN Performing Organization Address [facility] Phon e Number [address] 17-Hydroxyprogesterone (09/13/2015 11:09 AM EDT) athologist Signature 17-Hydroxyprog <40 ng/dL [facility] LABORATORY Comment: REFERENCE VALUE------ < 80 (Follicular) <285 (Luteal) < 51 (Postmenopausal) Test Performed by: [facility] [address] [place] [address] Commercial Pest Control Technician: Jun Blair II, M.D., Ph.D. Specimen Anatomical Collection Method Collection Time Receive d Time (Source) Location / / Volume Laterality Blood specimen 09/13/2015 11:09 6 (specimen) AM EDT 12:04 PM EDT Resulting Agency Comment Spec In Lab Yarelis Kelly MD CHEMISTRY ORDERABLES Performing Organization Address [facility] Phon e Number [address] Androstenedione (09/13/2015 11:09 AM EDT) athologist Signature Androstenedione 59 30 - 200 [facility] ng/dL [facility] Comment: Test Performed by: [facility] [address] [place] [address] Commercial Pest Control Technician: Jun Blair II, M.D., Ph.D. Specimen Anatomical Collection Method Collection Time Receive d Time (Source) Location / / Volume Laterality Blood specimen 09/13/2015 11:09 6 (specimen) AM EDT 12:04 PM EDT Resulting Agency Comment Spec In Lab Yarelis Kelly MD CHEMISTRY ORDERABLES Performing Organization Address City/[facility]/ZIP Code Phon e Number [address] DHEA-sulfate (09/13/2015 11:09 AM EDT) P athologist Signature DHEAS 56.1 35.4 - [facility] 256.0 [facility] LABORATORY Specimen Anatomical Collection Method Collection Time Receive d Time (Source) Location / / Volume Laterality Blood specimen 09/13/2015 11:09 6 (specimen) AM EDT 11:24 AM EDT Resulting Agency Comment Spec In Lab Yarelis Kelly MD CHEMISTRY ORDERABLES Performing Organization Address City/[facility]/ZIP Code Phon e Number [address] Testosterone, total and free (09/13/2015 11:09 AM EDT) P athologist Signature Testo Total 9 2 - 45 [facility] ng/dL [facility] Comment: For more information on this test, go to http://education.[employer]/fa q/ TotalTestosteroneLCMSMS Testo Free 1.2 0.1 - 6.4 pg/mL [facility] LAB[facility] Comment: Test Performed by Sandra Noland, [employer] [facility], [id number] [place] [address] 2014 04 Saleem Ruff M.D., Ph.D., Director [facility] [place] , [place] [id number] Specimen Anatomical Collection Method Collection Time Receive d Time (Source) Location / / Volume Laterality Blood specimen 09/13/2015 11:09 6 (specimen) AM EDT 11:58 AM EDT Resulting Agency Comment Spec In Lab Yarelis Kelly MD CHEMISTRY ORDERABLES Performing Organization Address [facility] Phon e Number [address] Estradiol (09/13/2015 11:09 AM EDT) P athologist Signature Estradiol 36 pg/mL [facility] Comment: Reference ranges: Males: ??Adult: ? 26 to 61 pg/mL Females: Non- females: ?Follicular: ??12-233 pg/m L ?Ovulation: ?? 41-398 pg/m L ?Luteal: ?22-341 pg /mL ?Postmenopausal: ?? <5 -13 8 pg/mL females: ?1st trimester: ??154-3243 pg/mL ?2nd trimester: ??1561-212 80 pg/mL ?3rd trimester: ??8525- >3 0000 pg/mL Specimen Anatomical Collection Method Collection Time Receive d Time (Source) Location / / Volume Laterality Blood specimen 09/13/2015 11:09 6 (specimen) AM EDT 11:24 AM EDT Resulting Agency Comment Spec In Lab Yarelis Kelly MD CHEMISTRY ORDERABLES Performing Organization Address City/[facility]/ZIP Code Phon e Number [address] Luteinizing Hormone (09/13/2015 11:09 AM EDT) P athologist Signature LH 5.1 mlU/ML [facility] Comment: Reference ranges: ?? Females ?? Follicular: ? 2.4-12.6 mIU /mL ?? Ovulation: ?14.0-95.6 m IU/mL ?? Luteal: ? 1.0-11.4 m IU/mL ?? Postmenopausal: ? 7.7-58.5 mIU/m L Specimen Anatomical Collection Method Collection Time Receive d Time (Source) Location / / Volume Laterality Blood specimen 09/13/2015 11: 6 (specimen) AM EDT 11:24 AM EDT Resulting Agency Comment Spec In Lab Yarelis Kelly MD CHEMISTRY ORDERABLES Performing Organization Address [facility]/ZIP [facility] [place] [address] Follicle Stimulating Hormone (09/13/2015 11:09 AM EDT) P athologist Signature FSH 7.8 mlU/ML [facility] Comment: Reference Ranges: Females: Follicular: ? 3.5-12.5 mIU/mL Ovulation: ?4.7-21.5 mIU/mL Luteal: ? 1.7-7.7 mIU/mL Postmenopausal: 25.8-134.8 mIU/mL Specimen Anatomical Collection Method Collection Time Receive d Time (Source) Location / / Volume Laterality Blood specimen 09/13/2015 11: 6 (specimen) AM EDT 11:24 AM EDT Resulting Agency Comment Spec In Lab Yarelis Kelly MD CHEMISTRY ORDERABLES Performing Organization Address [facility] [place] [address] (ABNORMAL) Chromogranin A (09/13/2015 11:09 AM EDT) Analysis Performed At Patho logist Time Signature Chromogranin A 625 (H) <93 ng/mL [facility] Comment: Impaired renal or hepatic function or t reatment with proton pump inhibitors may result in artifactua l elevations of Chromogranin A. ADDITIONAL INFORMATIO N The testing method is a homogeneous time -resolved immunofluorescent assay. Analyte Specific Reagent: This test was developed and its performa nce characteristics determined by [facility]. It has not be en cleared or approved by the U.S. Food and Drug Admin istration. Values obtained with different assay met hods or kits may be different and cannot be used interchange ably. Test results cannot be interpreted as ab solute evidence for the presence or absence of malignant dis ease. Test Performed by: [facility] [place] [address] Commercial Pest Control Technician: uJn Blair II, M.D., Ph.D. Specimen Anatomical Collection Method Collection Time Receive d Time (Source) Location / / Volume Laterality Blood specimen 09/13/2015 11: 6 (specimen) AM EDT 12:04 PM EDT Resulting Agency Comment Spec In Lab Yarelis Kelly MD CHEMISTRY ORDERABLES Performing Organization Address City/[facility]/[place] [address] Vasoactive Intestinal Peptide (VIP) (09/13/2015 11:09 AM EDT) P athologist Signature VIP <50 <75 pg/mL [facility] Comment: Test Performed by: [facility] [address] [place], [place] [id number] Commercial Pest Control Technician: Jun Blair II, M.D., Ph.D. Specimen Anatomical Collection Method Collection Time Receive d Time (Source) Location / / Volume Laterality Blood specimen 09/13/2015 11:09 6 (specimen) AM EDT 12:04 PM EDT Resulting Agency Comment Spec In Lab Yarelis Kelly MD CHEMISTRY ORDERABLES Performing Organization Address City/[facility]/ZIP [facility] Phon e Number [address] T3 Total (09/13/2015 11:09 AM EDT) P athologist Signature T3, Total 97 75 - 170 [facility] ng/dL [facility] Specimen Anatomical Collection Method Collection Time Receive d Time (Source) Location / / Volume Laterality Blood specimen 09/13/2015 11:09 6 (specimen) AM EDT 11:24 AM EDT Resulting Agency Comment Spec In Lab Yarelis Kelly MD CHEMISTRY ORDERABLES Performing Organization Address City/[facility]/ZIP Code Phon e Number [address] T4, free (09/13/2015 11:09 AM EDT) P athologist Signature Free T4 1.04 0.93 - 1.70 ROSETTE ANTHONY ng/dL [facility] Specimen Anatomical Collection Method Collection Time Receive d Time (Source) Location / / Volume Laterality Blood specimen 09/13/2015 11:09 6 (specimen) AM EDT 11:24 AM EDT Resulting Agency Comment Spec In Lab Yarelis Kelly MD CHEMISTRY ORDERABLES Performing Organization Address City/[facility]/ZIP Code Phon e Number [address] TSH (09/13/2015 11:09 AM EDT) P athologist Signature TSH 2.69 0.27 - 4.20 ROSETTE ANTHONY mcIU/mL [facility] Specimen Anatomical Collection Method Collection Time Receive d Time (Source) Location / / Volume Laterality Blood specimen 09/13/2015 11:09 6 (specimen) AM EDT 11:24 AM EDT Resulting Agency Comment Spec In Lab Yarelis Kelly MD CHEMISTRY ORDERABLES Performing Organization Address City/[facility]/[place] [address] documented in this encounter Visit Diagnoses Diagnosis Marylou's thyroiditis Chronic lymphocytic thyroiditis Chronic diarrhea Diarrhea Weight gain Abnormal weight gain Menstrual irregularity Irregular menstrual cycle Hirsutism Flushing documented in this encounter Care Teams Transportation Equipment Painter Relationship Specialty Start Date End Date Sushil Loya MD PCP - General General Internal Medicine 09/13/15 06/01/16 [address] [place] [address] documented as of this encounter
--- OUTSIDE RECORDS SUMMARY | 2022-02-03 02:41 | XMS_ITS | Encounter Summary ---
:1970 Author Organization [facility] Address [address] [place] [address] Care Team Providers Name Role Phone Linda Lee BRASS BURNISHER Primary Care Provider Encounter Details Date Type Department Care Team Description 03/16/[address] [facility]- Araceli Knutson, [address] [place], [place] [id number] (Wo rk) Social History Tobacco Use Types Packs/Day Years Used Date Never Assessed Sex Assigned at Date Recorded Not on file documented as of this encounter Plan of Treatment Not on filedocumented as of this encounter Procedures Procedure Name Priority Date/Time Associated Diagnosis Comme nts SURGICAL PATHOLOGY Routine 03/16/2014 17:34 Resul ts for this EST procedure are i n the results section. documented in this encounter Results SURGICAL PATHOLOGY (03/16/2014 17:34 EST) Pathology Report: SURGICAL PATHOLOGY REPORT [facility] Reports generated via electronic interface contain daniel ginal data; LABORATORY however they are lacking the format of the original re port. SERVICES Caution should be taken when reading/interpreting unfo rmatted reports. Name: ? MONISHA PEÑA ? Accession #: ? [id number] ? : ? 1970 (Age: 43) ??F ? Collect Date: ? 03/16/2014 ? Location: ? [facility] ? Receive Date: ? 014 ? Provider: ARACELI RODRIGUEZ MD Copy to: JOHNNY RADHA SPECIAL EVENTS ASSISTANT ? Final Pathologic Diagnosis: COLON, ASCENDING, POLYP, BIOPSY: - ??Hyperplastic polyp (1). Document reviewed and electronically signed by: Carlene Castro MD Report ??Date: 03/18/2014 08:00 By the signature above, the attending physician certif ies that he/she has personally conducted a gross and/or microscopic examin ation of the described specimens and rendered or confirmed the above diagnosi s. Specimen(s) Received: Ascending colon polyp Clinical History: Rectal bleeding Gross Description: ? Received in formalin labelled with proper patient identification (initials A, S) and ascending colon polyp is a single pi nk-thomas polypoid tissue (0.2 x 0.2 x 0.1 cm). Submitted intact in 1. Francisca Jean 03/16/2014 05:58 PM End of Report Specimen Performing Organization Address City/State/ZIP Code Phon e Number [facility] [address] [place] [address] SERVICES documented in this encounter Visit Diagnoses Not on filedocumented in this encounter Care Teams Flatwork Finisher Relationship Specialty Start Date End Date Linda Lee NP PCP - General 01/27/09 03/17/[address] [place] [phone] documented as of this encounter
--- OUTSIDE RECORDS SUMMARY | 2022-02-03 02:41 | XMS_ITS | Encounter Summary ---
:1970 Author Organization [facility] Address [address] [place] [address] Care Team Providers Name Role Phone Linda Lee CONTINUOUS PROCESS COFFEE ROASTER Primary Care Provider Encounter Details Date Type Department Care Team Description 05/29/2011 Results Only [facility]- PRISM Johnny Gomez, SALES INSPECTOR [address] [place], [place] [phone] (Wo rk) Social History Tobacco Use Types Packs/Day Years Used Date Never Assessed Sex Assigned at Date Recorded Not on file documented as of this encounter Plan of Treatment Not on filedocumented as of this encounter Procedures Procedure Name Priority Date/Time Associated Diagnosis Comme nts PAP TEST- RESULT Routine 05/29/2011 0:00 EST Resu lts for this ONLY procedure are i n the results section. documented in this encounter Results PAP TEST- RESULT ONLY (05/29/2011 0:00 EST) Pathology Report: CYTOPATHOLOGY REPORT [facility] Reports generated via electronic interface contain daniel ginal data; however they are lacking the format of the original re port. Caution should be taken when reading/interpreting unfo rmatted reports. Name: ? MONISHA DAS ? Accession #: ? [id number] ? : ? 1970 (Age: 40) ??F ?Collect Da te: ? 05/29/2011 ? Location: ? [facility] ? Receive Date: ? 012 ? Provider: JOHNNY GOMEZ SALES INSPECTOR Copy to: ? Final Report SPECIMEN ADEQUACY ? Satisfactory for Evaluation - transformation zone component absent GENERAL CATEGORIZATION ? Negative for Intraepithelial Lesion or Malignan cy ?? Last Menstural Period: 05/15/11 Other: Additional clinical information: Specimen/Source: ??Pap Test, Cervix, ThinPrep Imaging System with manual evaluation Document reviewed and electronically signed by: ? Zoë Lindquist, ANNALEE(ASCP) ? Report ??Date: 05/31/2011 16:44 HPV with Pap Test ? Date Ordered: ? 05/31/2011 ? Status: ?? Signed Out ?Date Complete: ? 06/05/2011 ? By: ??S ystem Interface ? Date Reported: ? 06/05/2011 ? Interpretation RESULT: Negative for HPV types 16, 18, 31, 33, 35, 39, 45, 51, 52, 56, 58, 59, and 68. Comments Document reviewed and electronically signed by: ? System Interface ? Report date: 06/05/2011 By the signature above, the attending physician certif ies that he/she has personally conducted a gross and/or microscopic examin ation of the described specimens and rendered or confirmed the above diagnosi s. End of Report Specimen Performing Organization Address City/State/ZIP Code Phon e Number [facility] [address] [phone] SERVICES [facility] [address] [place] [address] documented in this encounter Visit Diagnoses Not on filedocumented in this encounter Care Teams Software Engineering Specialist Relationship Specialty Start Date End Date Linda Lee, CONTINUOUS PROCESS COFFEE ROASTER PCP - General 01/27/09 03/17/14 [address] [place] [phone] documented as of this encounter
--- OUTSIDE RECORDS SUMMARY | 2022-02-03 02:41 | XMS_ITS | Encounter Summary ---
:1970 Author Organization [facility] Address [address] [place] [address] Care Team Providers Name Role Phone Lexie Hilario MD Primary Care Provider Encounter Details Date Type Department Care Team Description 02/01/2022 Lab Requisition [facility] Outr Resulting Lab, Pathology & Laboratory Provider [facility] [address] [place], [place] [address] Social History Tobacco Use Types Packs/Day Years Used Date Never Assessed Sex Assigned at Date Recorded Not on file documented as of this encounter Plan of Treatment Not on filedocumented as of this encounter Procedures Procedure Name Priority Date/Time Associated Diagnosis Comme nts COVID-19 TEST [facility] Today 01/31/2022 10:00 LAB PCR EDT COVID-19 TESTING Routine 01/31/2022 10:00 Results for this EDT procedure are i n the results section. documented in this encounter Results COVID-19 TEST [facility] LAB PCR (01/31/2022 10:00 EDT) Specimen Swab Performing Organization Address City/State/ZIP Code Phon e Number [facility] [address] [place] [address] SERVICES COVID-19 TESTING (01/31/2022 10:00 EDT) COVID-19 rt-PCR Negative Negative [facility] Result Comment: CENTER LABORATORY This test has not been FDA c leared or approved. This test has been authorized by FDA under an EUA for use by authorized laboratories. This test has been authorized only for detection of nucleic acid fro SERVICES m 2019-nCoV, not for any oth er viruses or pathogens. This test is only authorized for the duration of the declaration that circumstances exist justifying the authorization of emergency use of in vitro d iagnostic tests for detectio n and/or diagnosis of 2019-nCoV under section 564(b)(1) of Act, 21 U.S.C ?? 360bbb-3(b) (1), unless the authorization is terminated or revoked sooner. Negative results do not prec lude 2019-nCoV infection and should not be used as the sole basis for treatment or other patient management decisions. Negative results must be combined with clinical observa tions, patient history, and epidemiological informatio n. Performed on the 51edj Fusion instrument Performing Lab [place] [facility] Lab [facility] SERVICES Specimen Swab Performing Organization Address City/State/ZIP Code Phon e Number [facility] [address] [place] [address] SERVICES documented in this encounter Visit Diagnoses Not on filedocumented in this encounter Care Teams Drag Sawyer Relationship Specialty Start Date End Date Lexie Hilario MD PCP - General 06/21/15 documented as of this encounter
--- OUTSIDE RECORDS SUMMARY | 2022-02-03 02:41 | XMS_ITS | Encounter Summary ---
:[address] [facility] Address [address] [place] [address] Care Team Providers Name Role Phone Lexie Hilario MD Primary Care Provider Encounter Details Date Type Department Care Team Description 12/12/2021 Lab Requisition [facility] Outr Resulting Lab, Pathology & Laboratory Provider [facility] [address] [place], [place] [address] Social History Tobacco Use Types Packs/Day Years Used Date Never Assessed Sex Assigned at Date Recorded Not on file documented as of this encounter Plan of Treatment Not on filedocumented as of this encounter Procedures Procedure Name Priority Date/Time Associated Comments Diagnosis BETA HYDROXYBUTYRATE Routine 12/12/2021 11:40 Res ults for this EDT procedure are i n the results section. INSULIN Routine 12/12/2021 11:40 Results for this EDT procedure are i n the results section. documented in this encounter Results BETA HYDROXYBUTYRATE (12/12/2021 11:40 EDT) Pathologist Sig nature Beta Hydroxybutyrate <0.1 <0.4 mmol/L [facility] SERVICES Specimen Blood - Venous blood (substance) Performing Organization Address [facility] Phon e Number [facility] [address] [place] [address] SERVICES INSULIN (12/12/2021 11:40 EDT) Pathologist Sig nature Insulin 5.4 <29.0 uIU/mL [facility] Comment: LABORATORY SERVICES Displayed Reference Range applies to fasting specimens only. Specimen Blood - Venous blood (substance) Performing Organization Address [facility] Phon e Number [facility] [address] [place] [address] SERVICES documented in this encounter Visit Diagnoses Not on filedocumented in this encounter Care Teams Freight Service Inspector Relationship Specialty Start Date End Date Lexie Hilario MD PCP - General 06/21/15 documented as of this encounter
--- OUTSIDE RECORDS SUMMARY | 2022-02-03 02:41 | XMS_ITS | Encounter Summary ---
:1970 Author Organization [facility] Address [address] [place] [address] Care Team Providers Name Role Phone Lexie Hilario MD Primary Care Provider Encounter Details Date Type Department Care Team Description 07/15/2021 Lab Requisition [facility] Outr Resulting Lab, Pathology & Laboratory Provider [facility] [address] [place] [address] Social History Tobacco Use Types Packs/Day Years Used Date Never Assessed Sex Assigned at Date Recorded Not on file documented as of this encounter Plan of Treatment Not on filedocumented as of this encounter Procedures Procedure Name Priority Date/Time Associated Comments Diagnosis BETA HYDROXYBUTYRATE Routine 07/14/2021 12:50 Res ults for this EDT procedure are i n the results section. documented in this encounter Results BETA HYDROXYBUTYRATE (07/14/2021 12:50 EDT) Pathologist Sig nature Beta Hydroxybutyrate <0.1 <0.4 mmol/L [facility] SERVICES Specimen Blood - Venous blood (substance) Performing Organization Address City/State/ZIP Code Phon e Number [facility] [address] [place] [address] SERVICES documented in this encounter Visit Diagnoses Not on filedocumented in this encounter Additional Health Concerns Infection Onset Date Last Indicated Resolved Time COVID-19 10/26/2021 10/26/2021 11/15/2021 22:15 EDT documented as of this encounter Care Teams Child Psychiatrist Relationship Specialty Start Date End Date Lexie Hilario MD PCP - General 06/21/15 documented as of this encounter
--- OUTSIDE RECORDS SUMMARY | 2022-02-03 02:41 | XMS_ITS | Clinical Summary ---
:1970 Author Organization [facility] Address [address] [place] [address] Care Team Providers Name Role Phone Lexie Hilario MD Primary Care Provider Encounters Date Type Specialty Care Team Description 02/01/2022 Lab Requisition [facility] Outr Resulting Lab , Provider 12/12/2021 Lab Requisition Clinical Laboratory Outr Resulting Lab , Provider from Last 3 Months Social History Tobacco Use Types Packs/Day Years Used Date Never Assessed Sex Assigned at Date Recorded Not on file Plan of Treatment Health Maintenance Due Date Last Done Comments Hepatitis C Screen 1970 COVID-19 Vaccine (1) 1974 Procedures Procedure Name Priority Date/Time Associated Comments Diagnosis COVID-19 TEST [facility] Today 01/31/2022 10:00 PCR EDT COVID-19 TESTING Routine 01/31/2022 10:00 Results for this EDT procedure are i n the results section. BETA HYDROXYBUTYRATE Routine 12/12/2021 11:40 Res ults for this EDT procedure are i n the results section. INSULIN Routine 12/12/2021 11:40 Results for this EDT procedure are i n the results section. from Last 3 Months Results COVID-19 TEST [facility] PCR (01/31/2022 10:00 EDT) Specimen Swab Performing Organization Address City/State/ZIP Code Phon e Number [facility] [address] [place] [address] SERVICES COVID-19 TESTING (01/31/2022 10:00 EDT) COVID-19 rt-PCR Negative Negative [facility] Result Comment: CENTER LABORATORY This test [...] and epidemiological informatio n. Performed on the Oxtoxher Fusion instrument Performing Lab [facility] Lab [facility] SERVICES Specimen Swab Performing Organization Address [facility]/ZIP [facility] Phon e Number [facility] [address] [place] [address] SERVICES BETA HYDROXYBUTYRATE (12/12/2021 11:40 EDT) Pathologist Sig nature Beta Hydroxybutyrate <0.1 <0.4 mmol/L [facility] SERVICES Specimen Blood - Venous blood (substance) Performing Organization Address [facility]/ZIP [facility] Phon e Number [facility] [address] [place] [address] SERVICES INSULIN (12/12/2021 11:40 EDT) Pathologist Sig nature Insulin 5.4 <29.0 uIU/mL [facility] Comment: LABORATORY SERVICES Displayed Reference Range applies to fasting specimens only. Specimen Blood - Venous blood (substance) Performing Organization Address [facility]/ZIP [facility] Phon e Number [facility] [address] [place] [address] SERVICES from Last 3 Months Care Teams Well Drill Operator Helper Cable Tool Relationship Specialty Start Date End Date Lexie Hilario MD PCP - General 06/21/15
--- OUTSIDE RECORDS SUMMARY | 2022-02-03 02:41 | XMS_ITS | Encounter Summary ---
:1970 Author Organization [facility] Address [address] [place] [address] Care Team Providers Name Role Phone Lexie Hilario MD Primary Care Provider Encounter Details Date Type Department Care Team Description 05/19/2019 Lab Requisition [facility] Unknown, Provider, Pathology & Laboratory [facility] [address] [facility] [place] [address] Social History Tobacco Use Types Packs/Day Years Used Date Never Assessed Sex Assigned at Date Recorded Not on file documented as of this encounter Plan of Treatment Not on filedocumented as of this encounter Procedures Procedure Name Priority Date/Time Associated Diagnosis Comme nts THYROID ANTIBODIES Routine 05/19/2019 8:10 EST Re sults for this procedure are i n the results section. documented in this encounter Results (ABNORMAL) THYROID ANTIBODIES (05/19/2019 8:10 EST) Pathologist Sig nature Anti-Thyroglobulin 117 (H) <=60 U/mL [facility] SERVICES Thyroperoxidase Ab >1300 (H) <=60 U/mL [facility] SERVICES Specimen Blood - Venous blood (substance) Performing Organization Address City/State/ZIP Code Phon e Number [facility] [address] [place] [address] SERVICES documented in this encounter Visit Diagnoses Not on filedocumented in this encounter Additional Health Concerns Infection Onset Date Last Indicated Resolved Time COVID-19 10/26/2021 10/26/2021 11/15/2021 22:15 EDT documented as of this encounter Care Teams Inventory Assistant Relationship Specialty Start Date End Date Lexie Hilario MD PCP - General 06/21/15 documented as of this encounter
--- OUTSIDE RECORDS SUMMARY | 2022-02-03 02:41 | XMS_ITS | Encounter Summary ---
:1970 Author Organization [facility] Address [address] [place] [address] Care Team Providers Name Role Phone Lexie Hilario MD Primary Care Provider Encounter Details Date Type Department Care Team Description 03/28/2019 Lab Requisition [facility] Unknown, Provider, Pathology & Laboratory [facility] [address] [facility] [address] Social History Tobacco Use Types Packs/Day Years Used Date Never Assessed Sex Assigned at Date Recorded Not on file documented as of this encounter Plan of Treatment Not on filedocumented as of this encounter Procedures Procedure Name Priority Date/Time Associated Diagnosis Comme nts CALCIUM, URINE Routine 03/28/2019 18:10 Results f or this RANDOM EST procedure are i n the results section. documented in this encounter Results CALCIUM, URINE RANDOM (03/28/2019 18:10 EST) Calcium, Urine 11.6 See Note [facility] Comment: mg/dL LABORATORY SERVICES NOTE: Reference range has not been established for calcium concentration in random urine specimens. Specimen Urine - Urine specimen collection, clean catch (procedure) Performing Organization Address City/State/ZIP Code Phon e Number [facility] [address] [place] [address] SERVICES documented in this encounter Visit Diagnoses Not on filedocumented in this encounter Additional Health Concerns Infection Onset Date Last Indicated Resolved Time COVID-19 10/26/2021 10/26/2021 11/15/2021 22:15 EDT documented as of this encounter Care Teams Stone Operator Relationship Specialty Start Date End Date Lexie Hilario MD PCP - General 06/21/15 documented as of this encounter
--- OUTSIDE RECORDS SUMMARY | 2022-02-03 02:41 | XMS_ITS ---
:1970 Author Care Team Providers Name Role Phone DR. JONO AG Primary Care Provider [phone] DR. JONO AG Referring Provider [phone] Allergies Code Code System Name Reaction Severity Status Onset 1223 RxNorm Atropine Hives ? Active ? 786713 RxNorm Eplerenone Swelling ? Active ? 83021 RxNorm Iron Edema ? Active ? 9997 RxNorm Spironolactone Rash ? Active ? Medications Name Status Start Date Stop Date ? ? amlodipine 5 mg tablet Completed ? 1 Take 1 tablet every day by oral route. bupropion HCl XL 300 mg 24 hr tablet, extended release Active ? Not available Take 1 tablet every day by oral route. carvedilol 6.25 mg tablet Active ? Not av ailable Take 1 tablet every day by oral route at bedtime. gabapentin 800 mg tablet Active ? Not jeevan ilable Take 1 tablet twice a day by oral route. hydrochlorothiazide 25 mg tablet Active ? Not available Take 1 tablet every day by oral route. lisinopril 10 mg tablet Active ? Not avai lable Take 1 tablet every day by oral route. multivitamin with minerals Active ? Not a vailable omeprazole 40 mg capsule,delayed release Active ? Not available Take 1 capsule every day by oral route. ondansetron 4 mg disintegrating tablet Active ? Not available PLACE 2 TABLETS (8 MG) ON TOP OF THE TO NGUE WHERE THEY WILL DISSOLVE,THEN SWALLOW BY TRANSLINGUAL ROUTE 2 TIMES PER DAY potassium chloride ER 20 mEq tablet,extended release Active ? Not available Take 1 tablet every day by oral route. tramadol 50 mg tablet Active ? Not availa ble Take 1 tablet every day by oral route at bedtime. triamcinolone acetonide 0.5 % topical ointment Active ? Not available APPLY A THIN LAYER TO THE AFFECTED AREA(S) BY TOPICAL ROUTE 2 T IMES PER DAY venlafaxine 75 mg tablet Completed ? 021 Take 1 tablet twice a day by oral route. Problems Name Status Onset Date Source ? Adenomatous Polyp of Colon Active 07/13/2020 ? Maryluo Thyroiditis Active 07/13/2020 ? Dehydration Active 07/13/2020 ? Hypokalemia Active 07/13/2020 ? Anemia Active 07/13/2020 ? Depressive Disorder Active 07/13/2020 ? Migraine Active 07/13/2020 ? Sustained Ventricular Tachycardia Active 07/13/2020 ? Blue Toes Active 07/13/2020 ? Low Blood Pressure Active 07/13/2020 ? Difficult Venous Access Active 07/13/2020 ? Gastroesophageal Reflux Disease Active 07/13/2020 ? Irritable Bowel Syndrome Active 07/13/2020 ? Rectal Hemorrhage Active 07/13/2020 ? Pre-eclampsia Active 07/13/2020 ? Alopecia Active 07/13/2020 ? Discoloration of Skin Active 07/13/2020 ? Pain in Both Feet Active 07/13/2020 ? Raynaud's Phenomenon Active 07/23/2020 ? 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 Left Metatarsus Adductus Active 07/23/2020 ? Acquired Left Hallux Valgus Active 07/23/2020 ? Acquired Right Hallux Valgus Active 07/23/2020 ? Procedures Date Name Performed by ? 04/02/2019 Gastric Bypass Information not avai lable 04/02/2017 Egd Information not avai lable 04/02/2017 Colonoscopy Information not avai lable 04/02/2015 Egd Information not avai lable 04/02/2015 Colonoscopy Information not avai lable 04/02/2013 Colonoscopy Information not avai lable 04/02/2012 Endometrial Ablation Information not jeevan ilable 04/02/2007 Endometrial Ablation Information not jeevan ilable ? Tonsillectomy Information not avai lable ? Caesarean Section Information not avai lable Notes: x3 07/12/2020 XR, Foot, 3 or [facility] - Radiology [address] [place] [address] (Work [address]) 07/12/2020 XR, Foot, 3 or [facility] - Radiology [address] [place] [address] (Work Place) Results Lab Results Date Name Specimen Result Interpretation Description Value Range Status Address ? 07/23/2020 Potassium, P Normal K 3.6 mEq/L 3.5-5.1 Final [facility] Serum or mEq/L [facility] Plasma Laboratory & Pathology: [address] [place] [address] 04/12/2020 SARS CoV 2 ? Upper nasopharyngeal ? F [facility]al [facility] Hos[facility] (COVID-19), Source Labor atory QL, directional bore operator-PCR, & Respiratory Patho logy: Specimen [address] [place] [address] ? ? Normal Sars Cov-2 not detected not Final [facility] RNA detected Hospital (Covid-19) Labora tory & Pathology: [address] [place] [address] 01/17/2020 Magnesium, P Normal mg 2.2 mg/dL 1.8-2.4 Final [facility] Serum or mg/dL [facility] Plasma Laboratory & Pathology: [address] [place] [address] 01/17/2020 BMP, Serum P High Glu 115 mg/dL 70-100 Final [facility] or Plasma mg/dL [facility] Laboratory & Pathology: [address] [place] [address] ? ? P Normal Bun 18 mg/dL 7-18 Final [facility] mg/dL [facility] Laboratory & Pathology: [address] [place] [address] ? ? P High Creat 1.05 mg/dL 0.55-1.02 Final [facility] mg/dL [facility] Laboratory & Pathology: [address] [place] [address] ? ? P Normal Na 140 mEq/L 136-145 [facility]L [facility] Laboratory & Pathology: [address] [place] [address] ? ? P Normal K 3.5 mEq/L 3.5-5.1 Final [facility] e mEq/L [facility] Laboratory & Pathology: [address] [place] [address] ? ? P Normal Cl 103 mEq/L 98-107 Final [facility] mEq/L [facility] Laboratory & Pathology: [address] [place] [address] ? ? P Normal Co2 27 mEq/L 21-31 Final [facility] mEq/L [facility] Laboratory & Pathology: [address] [place] [address] ? ? P Normal Ca 9.2 mg/dL 8.5-10.1 Final [facility] mg/dL [facility] Laboratory & Pathology: [address] [place] [address] ? ? P ? Agap 14.4 ? Final [facility] calculation Hospi heidy Laboratory & Pathology: [address] [place] [address] ? ? P ? Bn/cr 16.7 ratio ? Final [facility] Laboratory & Pathology: [address] [place] [address] ? ? P ? Egfraa 67.24 ? Final [facility] Laboratory & Pathology: [address] [place] [address] ? ? P ? Egfrnaa 55.48 ? Final [facility] Laboratory & Pathology: [address] [place] [address] 09/30/2019 Thiamine WB Normal Vit. B1, 127.7 nmol/L 66.5-200. Final [facility] (Vit B1) Whole Blood 0 nmol/L H ospital Laboratory & Pathology: [address] [place] [address] 09/30/2019 PTH P Normal PTH, 34 pg/mL 15-65 Final [facility] (Parathyroid Intact pg/mL Hosp ital Hormone), Laborat ory Intact, & Serum or Patholog y: Plasma [address] [place] [address] 09/30/2019 TSH, Serum P Normal Tsh 2.034 mIU/mL 0.360-3.7 Final [facility] or Plasma 40 mIU/mL Hosp ital Laboratory & Pathology: [address] [place] [address] 09/30/2019 T4, Free, P Normal Ft4 0.98 NG/dL 0.76-1.46 Fin [facility] Serum NG/dL [facility] Laboratory & Pathology: [address] [place] [address] 09/30/2019 CMP, Serum P Normal Na 138 mEq/L 136-145 Final [facility] or Plasma mEq/L Hospita l Laboratory & Pathology: [address] [place] [address] ? ? P Normal K 4.2 mEq/L 3.5-5.1 Final [facility] [place] [place] mEq/L [facility] Laboratory & Pathology: [address] [place] [address] ? ? P Normal Cl 101 mEq/L 98-107 Final [facility] mEq/L [facility] Laboratory & Pathology: [address] [place] [address] ? ? P Normal Co2 27 mEq/L 21-31 Final [facility] mEq/L [facility] Laboratory & Pathology: [address] [place] [address] ? ? P ? Agap 13.9 ? Final [facility] calculation Hospi heidy Laboratory & Pathology: [address] [place] [address] ? ? P Normal Glu 97 mg/dL 70-100 Final [facility] mg/dL [facility] Laboratory & Pathology: [address] [place] [address] ? ? P High Bun 24 mg/dL 7-18 Final [facility] mg/dL [facility] Laboratory & Pathology: [address] [place] [address] ? ? P Normal Creat 0.99 mg/dL 0.55-1.02 Final [facility] mg/dL [facility] Laboratory & Pathology: [address] [place] [address] ? ? P ? Bn/cr 24.2 ratio ? Final [facility] Laboratory & Pathology: [address] [place] [address] ? ? P Normal Ca 9.2 mg/dL 8.5-10.1 Final [facility] mg/dL [facility] Laboratory & Pathology: [address] [place] [address] ? ? P Normal Alkp 55 U/L 39-100 Final [facility] U/L [facility] Laboratory & Pathology: [address] [place] [address] ? ? P Normal Alt 41 U/L 14-59 U/L Final [facility] Laboratory & Pathology: [address] [place] [address] ? ? P Normal Ast 25 U/L 15-37 U/L Final [facility] Laboratory & Pathology: [address] [place] [address] ? ? P Normal Tbil 0.3 mg/dL <=1.2 Final [facility] mg/dL [facility] Laboratory & Pathology: [address] [place] [address] ? ? P Normal Tp 7.0 g/dL 6.4-8.2 Final [facility] g/dL [facility] Laboratory & Pathology: [address] [place] [address] ? ? P Normal Alb 3.8 g/dL 3.4-5.0 Final [facility] g/dL [facility] Laboratory & Pathology: [address] [place] [address] ? ? P ? Glob 3.22 mg/dL ? Final [facility] Laboratory & Pathology: [address] [place] [address] ? ? P ? A/g 1.2 calc ? Final [facility] Laboratory & Pathology: [address] [place] [address] ? ? P ? Egfraa 72.26 ? Final [facility] Laboratory & Pathology: [address] [place] [address] ? ? P ? Egfrnaa 59.62 ? [facility] Laboratory & Pathology: [address] [place] [address] 09/30/2019 Vitamin D2, P Low Vitd 29.10 NG/mL >30.00 Fin al [facility] 25-Hydroxy, NG/mL [facility] Serum Laboratory & Pathology: [address] [place] [address] 09/30/2019 Ferritin, P Normal Ferr 92 NG/mL 8-252 Final [facility] Serum or NG/mL [facility] Plasma Laboratory & Pathology: [address] [place] [address] 09/30/2019 Lipid Panel, P High Chol 271 mg/dL <200 Elvia l [facility] Serum mg/dL [facility] Laboratory & Pathology: [address] [place] [address] ? ? P Normal Hdl 45 mg/dL 40-60 Final [facility] mg/dL [facility] Laboratory & Pathology: [address] [place] [address] ? ? P High Trig 391 mg/dL 30-150 Final [facility] mg/dL [facility] Laboratory & Pathology: [address] [place] [address] ? ? P High LDL(C) 148 calc <100 calc Final [facility] Laboratory & Pathology: [address] [place] [address] ? ? P ? Risk 6.0 calc ? Final [facility] Laboratory & Pathology: [address] [place] [address] 09/30/2019 Vitamin B12, P Normal B12 712.00 pg/mL 193.00-9 8 Final [facility] Serum 6.00 Hospital pg/mL Laboratory & Pathology: [address] [place] [address] 09/30/2019 Folate, P Normal Fol 24.0 NG/mL 8.6-58.9 Final [facility] Serum NG/mL [facility] Laboratory & Pathology: [address] [place] [address] 09/30/2019 HbA1C WB High A1C 6.5 % <5.7 % Final [facility] e (Hemoglobin [facility] a1C), Blood Labor atory & Pathology: [address] [place] [address] ? ? WB High Estavegluc 140 calc <140 calc Final [facility] Laboratory & Pathology: [address] [place] [address] 09/30/2019 CBC W/ Auto WB Normal Wbc 9.2 10^3/mm^3 4.8-10.8 Final [facility] Diff 10^3/mm^3 Hospita l Laboratory & Pathology: [address] [place] [address] ? ? WB Normal Rbc 4.48 10^6/mm^3 3.90-5.03 Final [facility] 10^6/mm^3 Hospita l Laboratory & Pathology: [address] [place] [address] ? ? WB Normal Hgb 12.8 g/dL 12.0-15.5 Final [facility] age g/dL Hospital Laboratory & Pathology: [address] [place] [address] ? ? WB Normal Hct 39 % 36-46 % Final [facility] Laboratory & Pathology: [address] [place] [address] ? ? WB Normal Mcv 86.2 fL 81.0-99.0 Final [facility] Laboratory & Pathology: [address] [place] [address] ? ? WB Normal Mch 28.6 pg 27.1-32.0 Final [facility] [place] [place] pg [facility] Laboratory & Pathology: [address] [place] [address] ? ? WB Normal Mchc 33 g/dL 33-36 Final [facility] g/dL [facility] Laboratory & Pathology: [address] [place] [address] ? ? WB Normal Rdw 14.3 % 11.6-14.8 Final [facility] Laboratory & Pathology: [address] [place] [address] ? ? WB Normal Platelets 354 10^3/mm^3 150-400 Final [facility] 10^3/mm^3 Hospita l Laboratory & Pathology: [address] [place] [address] ? ? WB Normal Ne# 4.25 10^3/mm^3 1.20-6.70 Final [facility] 10^3/mm^3 Hospita l Laboratory & Pathology: [address] [place] [address] ? ? WB High Ly# 3.88 10^3/mm^3 1.20-3.40 Final [facility] 10^3/mm^3 Hospita l Laboratory & Pathology: [address] [place] [address] ? ? WB Normal Mo# 0.67 10^3/mm^3 0.11-0.70 Final [facility] 10^3/mm^3 Hospita l Laboratory & Pathology: [address] [place] [address] ? ? WB Normal Eo# 0.37 10^3/mm^3 0.00-0.70 Final [facility] 10^3/mm^3 Hospita l Laboratory & Pathology: [address] [place] [address] ? ? WB Normal Ba# 0.05 10^3/mm^3 0.00-0.20 Final [facility] 10^3/mm^3 Hospita l Laboratory & Pathology: [address] [place] [address] ? ? WB Normal Neut% 46 % per 100 40-74 % Final [facility] WBC per 100 Hospital WBC Laboratory & Pathology: [address] [place] [address] ? ? WB Normal Ly% 42 % per 100 19-48 % Final [facility] WBC per 100 Hospital WBC Laboratory & Pathology: [address] [place] [address] ? ? WB Normal Mo% 7.3 % per 100 3.0-10.0 Final [facility] WBC % per 100 Hospita l WBC Laboratory & Pathology: [address] [place] [address] ? ? WB Normal Eo% 4.0 % per 100 1.0-7.0 % Final [facility] WBC per 100 Hospital WBC Laboratory & Pathology: [address] [place] [address] ? ? WB Normal Ba% 0.5 % per 100 0.0-2.0 % Final [facility] WBC per 100 Hospital WBC Laboratory & Pathology: [address] [place] [address] 09/30/2019 Iron + Total S Normal Fe 66 ug/dL 50-170 Final [facility] Iron-binding ug/dL Hosp ital Capacity Laborato ry (TIBC), & Serum Pathology: [address] [place] [address] ? ? S Normal Tibc 316 ug/dL 250-450 Final [facility] e ug/dL [facility] Laboratory & Pathology: [address] [place] [address] ? ? S ? Sat 20.8 % ? Final [facility] Laboratory & Pathology: [address] [place] [address] Past Encounters None recorded. Social History Tobacco Smoking Status Never Smoker Vaccine List None recorded. Plan of Care Reminders Provider Appointments None recorded. ? ? Lab None recorded. ? ? Referral None recorded. ? ? Procedures None recorded. ? ? Surgeries None recorded. ? ? Imaging None recorded. ? ? Vitals Height Weight BMI Blood Pressure 163.83 cm 81.65 kg 30.4 kg/m2
--- OUTSIDE RECORDS SUMMARY | 2022-02-03 02:41 | XMS_ITS | Encounter Summary ---
:1970 Author Organization [facility] Address [address] [place] [address] Care Team Providers Name Role Phone Lexie Hilario MD Primary Care Provider Encounter Details Date Type Department Care Team Description 05/19/2020 Lab Requisition [facility] Outr Resulting Lab, Pathology & Laboratory Provider [facility] [address] [place] [address] Social History Tobacco Use Types Packs/Day Years Used Date Never Assessed Sex Assigned at Date Recorded Not on file documented as of this encounter Plan of Treatment Not on filedocumented as of this encounter Procedures Procedure Name Priority Date/Time Associated Diagnosis Comme nts RHEUMATOID FACTOR Routine 05/19/2020 8:10 EST Res ults for this procedure are i n the results section. documented in this encounter Results RHEUMATOID FACTOR (05/19/2020 8:10 EST) Pathologist Sig nature Rheumatoid Factor <8.6 <12.0 IU/mL [facility] Specimen Blood - Venous blood (substance) Performing Organization Address City/State/ZIP Code Phon e Number [facility] [address] [place] [address] SERVICES documented in this encounter Visit Diagnoses Not on filedocumented in this encounter Additional Health Concerns Infection Onset Date Last Indicated Resolved Time COVID-19 10/26/2021 10/26/2021 11/15/2021 22:15 EDT documented as of this encounter Care Teams Hone Operator Relationship Specialty Start Date End Date Lexie Hilario MD PCP - General 06/21/15 documented as of this encounter
--- OUTSIDE RECORDS SUMMARY | 2022-02-03 02:41 | XMS_ITS | Encounter Summary ---
:1970 Author Organization [facility] Address [address] [place] [address] Care Team Providers Name Role Phone Lexie Hilario MD Primary Care Provider Encounter Details Date Type Department Care Team Description 05/05/2021 Lab Requisition [facility] Outr Resulting Lab, Pathology & Laboratory Provider [facility] [address] [place] [id number] Social History Tobacco Use Types Packs/Day Years Used Date Never Assessed Sex Assigned at Date Recorded Not on file documented as of this encounter Plan of Treatment Not on filedocumented as of this encounter Procedures Procedure Name Priority Date/Time Associated Comments Diagnosis BETA HYDROXYBUTYRATE Routine 05/05/2021 7:55 Resu lts for this EST procedure are i n the results section. INSULIN Routine 05/05/2021 7:55 Results for this EST procedure are i n the results section. documented in this encounter Results BETA HYDROXYBUTYRATE (05/05/2021 7:55 EST) Pathologist Sig nature Beta Hydroxybutyrate <0.1 <0.4 mmol/L [facility] Specimen Blood - Venous blood (substance) Performing Organization Address [facility] Phon e Number [facility] [address] [place] [address] SERVICES INSULIN (05/05/2021 7:55 EST) Pathologist Sig nature Insulin 6.8 <29.0 uIU/mL [facility] Comment: LABORATORY SERVICES Displayed Reference Range applies to fasting specimens only. Specimen Blood - Venous blood (substance) Performing Organization Address [facility] Phon e Number [facility] [address] [place] [address] SERVICES documented in this encounter Visit Diagnoses Not on filedocumented in this encounter Additional Health Concerns Infection Onset Date Last Indicated Resolved Time COVID-19 10/26/2021 10/26/2021 11/15/2021 22:15 EDT documented as of this encounter Care Teams Public Health Microbiologist Relationship Specialty Start Date End Date Lexie Hilario MD PCP - General 06/21/15 documented as of this encounter
--- OUTSIDE RECORDS SUMMARY | 2022-02-03 02:41 | XMS_ITS | Encounter Summary ---
:1970 Author Organization [facility] Address [address] [place] [address] Care Team Providers Name Role Phone Linda Lee ELECTRO MECHANICAL SOLAR TECHNICIAN Primary Care Provider Encounter Details Date Type Department Care Team Description 03/16/2014 Hospital Encounter [facility] Unknown, Provider, [facility] 0 [facility] [phone] [place] [address] (Work) [phone] Social History Tobacco Use Types Packs/Day Years Used Date Never Assessed Sex Assigned at Date Recorded Not on file documented as of this encounter Discharge Disposition Disposition Code Departure Means Destination Home or Self Half-Way documented in this encounter Plan of Treatment Not on filedocumented as of this encounter Visit Diagnoses Not on filedocumented in this encounter Care Teams Shore Hand Dredge Or Barge Relationship Specialty Start Date End Date Linda Lee, ELECTRO MECHANICAL SOLAR TECHNICIAN PCP - General 01/27/09 03/17/[address] [place] [address] documented as of this encounter
--- OUTSIDE RECORDS SUMMARY | 2022-02-03 02:41 | XMS_ITS | Encounter Summary ---
:1970 Author Organization [facility] Address [address] [place] [address] Care Team Providers Name Role Phone Linda Lee PANEL LAY UP WORKER Primary Care Provider Encounter Details Date Type Department Care Team Description 11/26/2002 Results Only [facility] - Huyen Sheth, PANEL LAY UP WORKER conversion [address] [place] [address] Social History Tobacco Use Types Packs/Day Years Used Date Never Assessed Sex Assigned at Date Recorded Not on file documented as of this encounter Plan of Treatment Not on filedocumented as of this encounter Procedures Procedure Name Priority Date/Time Associated Diagnosis Comme nts CYTOPATHOLOGY Routine 11/26/2002 0:00 EDT Results for this procedure are i n the results section . documented in this encounter Results CYTOPATHOLOGY (11/26/2002 0:00 EDT) Pathology Report: CYTOPATHOLOGY REPORT [facility] Reports generated via electronic interface contain daniel ginal data; however they are lacking the format of the original re port. Caution should be taken when reading/interpreting unfo rmatted reports. Name: ? MONISHA PEÑA ? Accession #: ? [id number] : ? 1970 (Age: 31) ??F ?Collect Date: ? 11/01 Location: ? [facility] ? Receive Date : ? 11/27/2002 Provider: ?HUYEN BALDERAS PANEL LAY UP WORKER Copy to: ? Specimen/Source: ?ThinPrep Pap Test, Cervix/ Endocervix Last Menstrual Period: ? 11/16/02 ? SPECIMEN ADEQUACY ? Satisfactory for Evaluation - transformation zone component present GENERAL CATEGORIZATION ? Negative for Intraepithelial Lesion or Malignan cy ? Document reviewed and electronically signed by: ? ANNALEE Marcial(ASCP) ? Report Date: ??12/03/2002 09:12 End of Report Specimen Performing Organization Address City/State/ZIP Code Phon e Number [facility] [address] [place] [address] SERVICES [facility] [address] [place] [address] documented in this encounter Visit Diagnoses Not on filedocumented in this encounter Care Teams Manager Maintenance Relationship Specialty Start Date End Date Linda Lee NP PCP - General 01/27/09 03/17/[address] [place] [id number] documented as of this encounter
--- OUTSIDE RECORDS SUMMARY | 2022-02-03 02:41 | XMS_ITS | Encounter Summary ---
:1970 Author Organization [facility] Address [address] [place] [address] Care Team Providers Name Role Phone Linda Lee SALES MARKETING COORDINATOR Primary Care Provider Encounter Details Date Type Department Care Team Description 04/23/2006 Results Only [facility] - Clay Chaidez MD conversion [address] [place] [address] Social History Tobacco Use Types Packs/Day Years Used Date Never Assessed Sex Assigned at Date Recorded Not on file documented as of this encounter Plan of Treatment Not on filedocumented as of this encounter Procedures Procedure Name Priority Date/Time Associated Diagnosis Comme nts CYTOPATHOLOGY Routine 04/23/2006 0:00 EST Results for this procedure are i n the results section . documented in this encounter Results CYTOPATHOLOGY (04/23/2006 0:00 EST) Pathology Report: CYTOPATHOLOGY REPORT [facility] Reports generated via electronic interface contain daniel ginal data; however they are lacking the format of the original re port. Caution should be taken when reading/interpreting unfo rmatted reports. Name: ? MONISHA PEÑA ? Accession #: ? [id number] : ? 1970 (Age: 35) ??F ?Collect Date: ? 04/03 Location: ? [facility] ? Receive Date : ? 04/24/2006 Provider: ?CLAY GENAO MD Copy to: ? Specimen/Source: ? ThinPrep Pap Test, Cervix/Endocervix, processed on [employer] ThinPrep Imaging System, with manual evaluation Last Menstrual Period: ? 04/06/06 Menstrual/ Status: ? Menorrhagia Other: ? HPVA - HPV testing requested if ASC-US on the current ThinPrep Pap test. ? SPECIMEN ADEQUACY ? Satisfactory for Evaluation - transformation zone component present GENERAL CATEGORIZATION ? Negative for Intraepithelial Lesion or Malignan cy ? Document reviewed and electronically signed by: ? Yarelis Sands, [facility](ASCP) ? Report Date: ??04/25/2006 11:04 End of Report Specimen Performing Organization Address City/State/ZIP Code Phon e Number [facility] [address] [place] [address] SERVICES [facility] [address] [place] [address] documented in this encounter Visit Diagnoses Not on filedocumented in this encounter Care Teams Caddie Supervisor Relationship Specialty Start Date End Date Linda Lee NP PCP - General 01/27/09 03/17/[address] [place] [phone] documented as of this encounter
--- OUTSIDE RECORDS SUMMARY | 2022-02-03 02:41 | XMS_ITS | Encounter Summary ---
:1970 Author Organization [facility] Address [address] [place] [address] Care Team Providers Name Role Phone Linda Lee WHEY DEPARTMENT OPERATOR Primary Care Provider Encounter Details Date Type Department Care Team Description 08/05/2007 Results Only [facility] - Clay Chaidez MD conversion [address] [place] [address] Social History Tobacco Use Types Packs/Day Years Used Date Never Assessed Sex Assigned at Date Recorded Not on file documented as of this encounter Plan of Treatment Not on filedocumented as of this encounter Procedures Procedure Name Priority Date/Time Associated Diagnosis Comme nts CYTOPATHOLOGY Routine 08/05/2007 0:00 EDT Results for this procedure are i n the results section . documented in this encounter Results CYTOPATHOLOGY (08/05/2007 0:00 EDT) Pathology Report: CYTOPATHOLOGY REPORT [facility] Reports generated via electronic interface contain daniel ginal data; however they are lacking the format of the original re port. Caution should be taken when reading/interpreting unfo rmatted reports. Name: ? MONISHA PEÑA ? Accession #: ? [id number] : ? 1970 (Age: 36) ??F ?Collect Date: ? 050 08/2007 Location: ? [facility] ? Receive Date : ? 08/06/2007 Provider: ?CLAY GENAO MD Copy to: ? Specimen/Source: ? ThinPrep Pap Test, Cervix/Endocervix, processed on [employer] ThinPrep Imaging System, with manual evaluation Last Menstrual Period: ? 07/18/07 Menstrual/ Status: ? Menorrhagia Other: ? Additional clinical information: anemia,nl exam ? SPECIMEN ADEQUACY ? Satisfactory for Evaluation - transformation zone component present GENERAL CATEGORIZATION ? Negative for Intraepithelial Lesion or Malignan cy ? Document reviewed and electronically signed by: ? ANNALEE Whitmore(ASCP) ? Report Date: ??08/08/2007 09:46 End of Report Specimen Performing Organization Address City/State/ZIP Code Phon e Number [facility] [address] [place] [address] SERVICES [facility] [address] [place] [address] documented in this encounter Visit Diagnoses Not on filedocumented in this encounter Care Teams Panel Beater Relationship Specialty Start Date End Date Linda Lee NP PCP - General 01/27/09 03/17/14 [address] [place] [phone] documented as of this encounter
--- OUTSIDE RECORDS SUMMARY | 2022-02-03 02:41 | XMS_ITS | Encounter Summary ---
:1970 Author Organization [facility] Address [address] [place] [address] Care Team Providers Name Role Phone Lexie Hilario MD Primary Care Provider Encounter Details Date Type Department Care Team Description 03/04/2019 Lab Requisition [facility] Unknown, Provider, Pathology & Laboratory [facility] [address] [facility] [place], [place] [address] Social History Tobacco Use Types Packs/Day Years Used Date Never Assessed Sex Assigned at Date Recorded Not on file documented as of this encounter Plan of Treatment Not on filedocumented as of this encounter Procedures Procedure Name Priority Date/Time Associated Diagnosis Comme nts OVA/PARASITE EXAM Routine 03/04/2019 14:45 Result s for this EST procedure are i n the results section. documented in this encounter Results OVA/PARASITE EXAM (03/04/2019 14:45 EST) Pathologist Sig nature Parasite No ova and parasites [facility] seen. LABORATORY SERVICES Specimen Feces - Feces Narrative [facility] - 03/05/2019 11:34 EST (If Cryptosporidium, Cyclospora, or Micr osporidium are suspected, specific tests must be requested.) Single negative specimen does not rule out the possibility of a parasitic infection. Performing Organization Address City/State/ZIP Code Phon e Number [facility] [address] [place] [address] SERVICES documented in this encounter Visit Diagnoses Not on filedocumented in this encounter Additional Health Concerns Infection Onset Date Last Indicated Resolved Time COVID-19 10/26/2021 10/26/2021 11/15/2021 22:15 EDT documented as of this encounter Care Teams Glazier Artist Relationship Specialty Start Date End Date Lexie Hilario MD PCP - General 06/21/15 documented as of this encounter
--- OUTSIDE RECORDS SUMMARY | 2022-02-03 02:41 | XMS_ITS | Encounter Summary ---
:1970 Author Organization [facility] Address [address] [place] [id number] Care Team Providers Name Role Phone Lexie Hilario MD Primary Care Provider Encounter Details Date Type Department Care Team Description 04/10/2019 Lab Requisition [facility] Unknown, Provider, Pathology & Laboratory [facility] [address] [facility] [place] [address] Social History Tobacco Use Types Packs/Day Years Used Date Never Assessed Sex Assigned at Date Recorded Not on file documented as of this encounter Plan of Treatment Not on filedocumented as of this encounter Procedures Procedure Name Priority Date/Time Associated Diagnosis Comme nts OSMOLALITY, URINE Routine 04/10/2019 9:02 EST Res ults for this procedure are i n the results section. documented in this encounter Results OSMOLALITY, URINE (04/10/2019 9:02 EST) Pathologist Sig nature Osmolality, Urine 515 150-1,150 mOsm/kg [facility] SERVICES Specimen Urine - Urine specimen collection, clean catch (procedure) Performing Organization Address City/State/ZIP Code Phon e Number [facility] [address] [place] [address] SERVICES documented in this encounter Visit Diagnoses Not on filedocumented in this encounter Additional Health Concerns Infection Onset Date Last Indicated Resolved Time COVID-19 10/26/2021 10/26/2021 11/15/2021 22:15 EDT documented as of this encounter Care Teams Outside Solar Sales Consultant Relationship Specialty Start Date End Date Lexie Hilario MD PCP - General 06/21/15 documented as of this encounter
--- OUTSIDE RECORDS SUMMARY | 2022-02-03 02:41 | XMS_ITS | Encounter Summary ---
:1970 Author Organization [facility] Address [address] [place] [address] Care Team Providers Name Role Phone Lexie Hliario MD Primary Care Provider Encounter Details Date Type Department Care Team Description 12/03/2020 Lab Requisition [facility] [place] [facility] Outr Resulting Lab, Pathology & Laboratory Provider [facility] [address] [place], [place] [id number] Social History Tobacco Use Types Packs/Day Years Used Date Never Assessed Sex Assigned at Date Recorded Not on file documented as of this encounter Plan of Treatment Not on filedocumented as of this encounter Procedures Procedure Name Priority Date/Time Associated Diagnosis Comme nts COVID-19 TEST [facility] Today 12/03/2020 10:30 LAB PCR EDT COVID-19 TESTING Routine 12/03/2020 10:30 Results for this EDT procedure are i n the results section. documented in this encounter Results COVID-19 TEST [facility] LAB PCR (12/03/2020 10:30 EDT) Specimen Swab - Entire nasopharynx (body structur e) Performing Organization Address City/State/ZIP Code Phon e Number [facility] [address] [place] [address] SERVICES COVID-19 TESTING (12/03/2020 10:30 EDT) COVID-19 rt-PCR Negative Negative [facility] Result Comment: [facility] This test has not been FDA c leared or approved. This test has been authorized by FDA under an EUA for use by authorized laboratories. This test has been authorized only for detection of nucleic acid fro SERVICES m 2018-nCoV, not for any oth er viruses or [...] and epidemiological informatio n. Performed on the [employer] Fusion instrument Performing Lab [place] [facility] Lab [facility] SERVICES Specimen Swab Performing Organization Address City/State/ZIP Code Phon e Number [facility] [address] [place] [address] SERVICES documented in this encounter Visit Diagnoses Not on filedocumented in this encounter Additional Health Concerns Infection Onset Date Last Indicated Resolved Time COVID-19 10/26/2021 10/26/2021 11/15/2021 22:15 EDT documented as of this encounter Care Teams Boatwright Relationship Specialty Start Date End Date Lexie Hilario MD PCP - General 06/21/15 documented as of this encounter
--- OUTSIDE RECORDS SUMMARY | 2022-02-03 02:41 | XMS_ITS | Encounter Summary ---
:1970 Author Organization [facility] Address [address] [place] [address] Care Team Providers Name Role Phone Lexie Hilario MD Primary Care Provider Encounter Details Date Type Department Care Team Description 07/25/2016 Results Only [facility] Linda Tenorio MD [phone] [place] [address] Social History Tobacco Use Types Packs/Day Years Used Date Never Assessed Sex Assigned at Date Recorded Not on file documented as of this encounter Plan of Treatment Not on filedocumented as of this encounter Procedures Procedure Name Priority Date/Time Associated Diagnosis Comme nts SURGICAL PATHOLOGY Routine 07/25/2016 9:08 EDT Re sults for this procedure are i n the results section. documented in this encounter Results SURGICAL PATHOLOGY (07/25/2016 9:08 EDT) Pathology Report: SURGICAL PATHOLOGY REPORT [facility] Reports generated via electronic interface contain daniel ginal data; LABORATORY however they are lacking the format of the original re port. SERVICES Caution should be taken when reading/interpreting unfo rmatted reports. Name: ? MONISHA PEÑA ? Accession #: ? [id number] ? : ? 1970 (Age: [age]) ??F ? Collect Date: ? 07/25/2016 ? Location: ? [facility] ? Receive Date: ? 07/27/19 17 ? Provider: LINDA TENORIO MD Copy to: LU GLASS MD ? Final Pathologic Diagnosis: ENDOMETRIUM, BIOPSY: - Polypoid fragment of benign endocervical tissue. See comment. - Scant fragments of inactive endometrium. Comment: Deeper sections of the specimen have been examined. Dr. Marin 07/27/2016 11:24 AM Document reviewed and electronically signed by: Carter Marin MD Report ??Date: 07/28/2016 11:55 By the signature above, the attending physician certif ies that he/she has personally conducted a gross and/or microscopic examin ation of the described specimens and rendered or confirmed the above diagnosi s. Specimen(s) Received: Endometrial bx Clinical History: AUB Gross Description: ? Received in formalin labelled with proper patient identification (initials A, S) and endometrial bx is an aggregate of bl ood-tinged mucus, 1.8 x 1.5 x 0.6 cm. Entirely submitted in 1 and 2. CHAI Zavala (ASCP) 07/26/2016 9:35 AM End of Report Specimen Performing Organization Address City/State/ZIP Code Phon e Number [facility] [address] [place] [address] SERVICES documented in this encounter Visit Diagnoses Not on filedocumented in this encounter Care Teams Liquor Commissioner Relationship Specialty Start Date End Date Lexie Hilario MD PCP - General 06/21/15 documented as of this encounter
--- OUTSIDE RECORDS SUMMARY | 2022-02-03 02:41 | XMS_ITS | Encounter Summary ---
:1970 Author Organization [facility] Address [address] [place] [address] Care Team Providers Name Role Phone Lexie Hilario MD Primary Care Provider Encounter Details Date Type Department Care Team Description 12/10/2018 Results Only [facility]- Rissa Quiles MD [phone] [place], [place] [phone] (Wo rk) Social History Tobacco Use Types Packs/Day Years Used Date Never Assessed Sex Assigned at Date Recorded Not on file documented as of this encounter Plan of Treatment Not on filedocumented as of this encounter Procedures Procedure Name Priority Date/Time Associated Diagnosis Comme nts PAP TEST- RESULT Routine 12/10/2018 0:00 EDT Resu lts for this ONLY procedure are i n the results section. documented in this encounter Results PAP TEST- RESULT ONLY (12/10/2018 0:00 EDT) Pathology Report: CYTOPATHOLOGY REPORT [facility] Reports generated via electronic interface contain daniel ginal data; SERVICES however they are lacking the format of the original re port. Caution should be taken when reading/interpreting unfo rmatted reports. Name: ? MONISHA PEÑA ? Accession #: ? [id number] ? : ? 1970 (Age: [age]) ??F ?Collect Date: ? 12/10/2018 ? Location: ? [facility] ? Receive Date: ? 12/12/19 19 ? Provider: RISSA LANGSTON MD Copy to: JONO AG DO ? Final Report SPECIMEN ADEQUACY ? Satisfactory for Evaluation - transformation zone component present GENERAL CATEGORIZATION ? Negative for Intraepithelial Lesion or Malignan cy INTERPRETATION ? Fungal organisms pres ent morphologically consistent with Yamilex species. Specimen/Source: ??Pap Test, Cervix/Endocervix, ThinPr ep Imaging System with manual evaluation Document reviewed and electronically signed by: ? ANNALEE Marcial(ASCP) ? Report ??Date: 12/16/2018 11:18 HPV with Pap Test ? Date Ordered: ? 12/16/2018 ? Status: ?? Signed Out ?Date Complete: ? 12/17/2018 ? By: ??Sy stem Interface ? Date Reported: ? 12/17/2018 ? Interpretation RESULT: Negative for HPV. No E6 or E7 mRNA is detected from HPV types 16,18,31,3 3,35, 39,45,51,52,56,58,59,66, and 68 by puffer tender media genoveva amplification. Comments Document reviewed and electronically signed by: ? System Interface ? Report date: 12/17/2018 By the signature above, the attending physician certif ies that he/she has personally conducted a gross and/or microscopic examin ation of the described specimens and rendered or confirmed the above diagnosi s. End of Report Specimen Performing Organization Address City/State/ZIP Code Phon e Number [facility] [address] [place] [address] SERVICES documented in this encounter Visit Diagnoses Not on filedocumented in this encounter Care Teams Yard Goods Salesperson Relationship Specialty Start Date End Date Lexie Hilario MD PCP - General 06/21/15 documented as of this encounter
--- OUTSIDE RECORDS SUMMARY | 2022-02-03 02:41 | XMS_ITS | Encounter Summary ---
:1970 Author Organization [facility] Address [address] [place] [address] Care Team Providers Name Role Phone Linda Lee RAILROAD DETECTIVE Primary Care Provider Encounter Details Date Type Department Care Team Description 03/12/2012 Results Only [facility] Linda Tenorio MD Laboratory Services - [address] [place] [address] [address] [place] [address] Social History Tobacco Use Types Packs/Day Years Used Date Never Assessed Sex Assigned at Date Recorded Not on file documented as of this encounter Plan of Treatment Not on filedocumented as of this encounter Procedures Procedure Name Priority Date/Time Associated Diagnosis Comme [facility] SURGICAL PATHOLOGY Routine 03/12/2012 0:00 EST Re sults for this procedure are i n the results section. documented in this encounter Results SURGICAL PATHOLOGY (03/12/2012 0:00 EST) Pathology Report: SURGICAL PATHOLOGY REPORT [facility] Reports generated via electronic interface contain daniel ginal data; LAB however they are lacking the format of the original re port. Caution should be taken when reading/interpreting unfo rmatted reports. Name: ? MONISHA PEÑA ? Accession #: ? [id number] ? : ? 1970 (Age: 41) ??F ? Collect Date: ? 03/12/2012 ? Location: ? [facility] ? Receive Date: ? 012 ? Provider: LINDA TENORIO MD Copy to: JOHNNYEDE GARCIA GREY PERCHER ? Final Pathologic Diagnosis: A. ?Endometrium, biopsy: 1. ?Secretory glands with disordered isidoro roque. 2. ? No hyperplasia identified. B. ?Endocervix, polypectomy: ? 1. ?? Endocervical polyp. Document reviewed and electronically signed by: TURNER MONZON MD Report ??Date: 03/15/2012 16:38 By the signature above, the attending physician certif ies that he/she has personally conducted a gross and/or microscopic examin ation of the described specimens and rendered or confirmed the above diagnosi s. Specimen(s) Received: A. ?Endometrial bx B. ? Endocervical polyp Clinical History: ? Irregular cycles, DUB; prior ablation; endocx p olyp Gross Description: ? Received in formalin labelled Thiago, Monisha and endometrial bx is approximately 6 cc of clotte d blood and blood tinged mucus admixed with multiple fragments of red-brown tissue. ??The specimen is submi tted entirely as (A1) through (A3) following filtration. Received in formalin labelled Thiago, Monisha and endocervical polyp is a thomas-pink polypoid structure measuring 0.9 x 0.4 x 0.2 cm. ??Also present is a small amount of attached blo od tinged mucus. ??The specimen is submitted intact as (B). ??(ISAMAR Trinh/darrius End of Report Specimen Performing Organization Address City/State/ZIP Code Phon e Number [facility] [address] [place] [address] SERVICES [facility] [address] [place] [address] documented in this encounter Visit Diagnoses Not on filedocumented in this encounter Care Teams Woodworker Helper Relationship Specialty Start Date End Date Linda Lee NP PCP - General 01/27/09 03/17/14 [address] [place] [phone] documented as of this encounter
--- OUTSIDE RECORDS SUMMARY | 2022-02-03 02:41 | XMS_ITS | Encounter Summary ---
:[address] [facility] Address [address] [place] [address] Care Team Providers Name Role Phone Linda Lee WRAPPER LEAF INSPECTOR Primary Care Provider Encounter Details Date Type Department Care Team Description 08/08/2004 Results Only [facility] - Yarelis Blancas CNM [facility] [address] [place] [address] Social History Tobacco Use Types Packs/Day Years Used Date Never Assessed Sex Assigned at Date Recorded Not on file documented as of this encounter Plan of Treatment Not on filedocumented as of this encounter Procedures Procedure Name Priority Date/Time Associated Diagnosis Comme nts CYTOPATHOLOGY Routine 08/08/2004 0:00 EDT Results for this procedure are i n the results section . documented in this encounter Results CYTOPATHOLOGY (08/08/2004 0:00 EDT) Pathology Report: CYTOPATHOLOGY REPORT [facility] Reports generated via electronic interface contain daniel ginal data; however they are lacking the format of the original re port. Caution should be taken when reading/interpreting unfo rmatted reports. Name: ? MONISHA PEÑA ? Accession #: ? [id number] : ? 1970 (Age: 33) ??F ?Collect Date: ? 050 12/2004 Location: ? [facility] ? Receive Date : ? 08/09/2004 Provider: ?YARELIS JARQUIN CN Copy to: ? Specimen/Source: ?ThinPrep Pap Test, Cervix/ Endocervix Last Menstrual Period: ? 06/08/04 Menstrual/ Status: ? Other: ? HPVA - HPV testing requested if ASC-US on the current ThinPrep Pap test. Additional clinical information: Cervical polyps prese nt noted @ time of pap smear. ? SPECIMEN ADEQUACY ? Satisfactory for Evaluation - transformation zone component present GENERAL CATEGORIZATION ? Negative for Intraepithelial Lesion or Malignan cy ? Document reviewed and electronically signed by: ? Yarelis Sands, [facility](ASCP) ? Report Date: ??08/12/2004 15:18 End of Report Specimen Performing Organization Address City/State/ZIP Code Phon e Number [facility] [address] [place] [address] SERVICES [facility] [address] [place] [address] documented in this encounter Visit Diagnoses Not on filedocumented in this encounter Care Teams Gripper Installer Relationship Specialty Start Date End Date Linda Lee NP PCP - General 01/27/09 03/17/[address] [place] [phone] documented as of this encounter
--- OUTSIDE RECORDS SUMMARY | 2022-02-03 02:41 | XMS_ITS | Encounter Summary ---
:1970 Author Organization [facility] Address [address] [place] [address] Care Team Providers Name Role Phone Lexie Hilario MD Primary Care Provider Encounter Details Date Type Department Care Team Description 03/28/2019 Lab Requisition [facility] Unknown, Provider, Pathology & Laboratory [facility] [address] [place] [address] Social History Tobacco Use Types Packs/Day Years Used Date Never Assessed Sex Assigned at Date Recorded Not on file documented as of this encounter Plan of Treatment Not on filedocumented as of this encounter Procedures Procedure Name Priority Date/Time Associated Diagnosis Comme nts CHLORIDE, URINE Routine 03/28/2019 18:12 Results for this RANDOM EST procedure are i n the results section. documented in this encounter Results CHLORIDE, URINE RANDOM (03/28/2019 18:12 EST) Chloride, Urine 150 See Note [facility] Comment: mEq/L [facility] NOTE: Reference range has not been established for chloride concentration in random urine specimens. Specimen Urine - Urine specimen collection, clean catch (procedure) Performing Organization Address City/State/ZIP Code Phon e Number [facility] [address] [place] [address] SERVICES documented in this encounter Visit Diagnoses Not on filedocumented in this encounter Additional Health Concerns Infection Onset Date Last Indicated Resolved Time COVID-19 10/26/2021 10/26/2021 11/15/2021 22:15 EDT documented as of this encounter Care Teams [employer] French Teacher Relationship Specialty Start Date End Date Lexie Hilario MD PCP - General 06/21/15 documented as of this encounter
--- OUTSIDE RECORDS SUMMARY | 2022-02-03 02:41 | XMS_ITS | Encounter Summary ---
:1970 Author Organization [facility] Address [address] [place] [address] Care Team Providers Name Role Phone Lexie Hilario MD Primary Care Provider Encounter Details Date Type Department Care Team Description 08/08/2021 Lab Requisition [facility] Outr Resulting Lab, Pathology & Laboratory Provider [facility] [address] [place] [address] Social History Tobacco Use Types Packs/Day Years Used Date Never Assessed Sex Assigned at Date Recorded Not on file documented as of this encounter Plan of Treatment Not on filedocumented as of this encounter Procedures Procedure Name Priority Date/Time Associated Diagnosis Comme nts MONO-TEST Routine 08/08/2021 14:55 EDT Results for this procedure are i n the results section . documented in this encounter Results MONO-TEST (08/08/2021 14:55 EDT) Pathologist Sig nature [place] Test Negative Negative [facility] Specimen Blood - Venous blood (substance) Performing Organization Address City/State/ZIP Code Phon e Number [facility] [address] [place] [address] SERVICES documented in this encounter Visit Diagnoses Not on filedocumented in this encounter Additional Health Concerns Infection Onset Date Last Indicated Resolved Time COVID-19 10/26/2021 10/26/2021 11/15/2021 22:15 EDT documented as of this encounter Care Teams Appliance Technician Relationship Specialty Start Date End Date Lexie Hilario MD PCP - General 06/21/15 documented as of this encounter
--- OUTSIDE RECORDS SUMMARY | 2022-02-03 02:41 | XMS_ITS | Encounter Summary ---
:1970 Author Organization [facility] Address [address] [place] [address] Care Team Providers Name Role Phone Lexie Hilario MD Primary Care Provider Encounter Details Date Type Department Care Team Description 10/24/2019 Lab Requisition [facility] Outr Resulting Lab, Pathology & Laboratory Provider [facility] [address], [place] [id number] Social History Tobacco Use Types Packs/Day Years Used Date Never Assessed Sex Assigned at Date Recorded Not on file documented as of this encounter Plan of Treatment Not on filedocumented as of this encounter Procedures Procedure Name Priority Date/Time Associated Comments Diagnosis QUANTIFERON TB GOLD Routine 10/23/2019 15:51 Resu lts for this PLUS EDT procedure are i n the results section. documented in this encounter Results QUANTIFERON TB GOLD PLUS (10/23/2019 15:51 EDT) Quantiferon Negative Negative [facility] Interpretation Comment: [facility] No interferon-gamma response to M. tuberculosis antigens was detected. ??Infection with M. tuberculosis is unlikely. A single negative result does not exclude infection with M. tuberculosis. ??In patien SERVICES ts at high risk for M. tuber culosis infection, a second test should be considered in accordance with the 2017 ATS/IDSA/CDC Clinical Practice Guidelines for Diagnosis of Tuberculosis in Adults and Childr en. [Evette LOZOYA et. al. Clin. Infect. Dis. 2017:64 ( 2) ??: 111-115]. Results were obtained with the Qiagen QuantiFERON TB G old Plus MANASA. TB1 Ag minus Nil 0.08 IU/ml [facility] TB2 Ag minus Nil 0.10 IU/mL [facility] Specimen Blood - Venous blood (substance) Narrative [facility] - 10/27/2019 14:43 EDT Results were obtained with the Qiagen Solidarium antiFERON-TB Gold Plus MANASA. Performing Organization Address City/State/ZIP Code Phon e Number [facility] [address] [place] [address] SERVICES documented in this encounter Visit Diagnoses Not on filedocumented in this encounter Additional Health Concerns Infection Onset Date Last Indicated Resolved Time COVID-19 10/26/2021 10/26/2021 11/15/2021 22:15 EDT documented as of this encounter Care Teams Personnel Monitor Relationship Specialty Start Date End Date Lexie Hilario MD PCP - General 06/21/15 documented as of this encounter
--- OUTSIDE RECORDS SUMMARY | 2022-02-03 02:41 | XMS_ITS | Encounter Summary ---
:1970 Author Organization [facility] Address [address] [place] [address] Care Team Providers Name Role Phone Linda Maher CASH APPLICATIONS ANALYST Primary Care Provider Encounter Details Date Type Department Care Team Description 09/09/2007 Results Only [facility] - Clay Chaidez MD conversion [address] [place] [address] Social History Tobacco Use Types Packs/Day Years Used Date Never Assessed Sex Assigned at Date Recorded Not on file documented as of this encounter Plan of Treatment Not on filedocumented as of this encounter Procedures Procedure Name Priority Date/Time Associated Diagnosis Comme [facility] SURGICAL PATHOLOGY Routine 09/09/2007 0:00 EDT Re sults for this procedure are i n the results section. documented in this encounter Results SURGICAL PATHOLOGY (09/09/2007 0:00 EDT) Pathology Report: SURGICAL PATHOLOGY REPORT [facility] Reports generated via electronic interface contain daniel ginal data; LAB however they are lacking the format of the original re port. Caution should be taken when reading/interpreting unfo rmatted reports. Name: ? MONISHA PEÑA ? Accession #: ? [id number] ? : ? 1970 (Age: 36) ??F ? Collect Date: ? 09/09/2007 ? Location: ? [facility] ? Receive Date: ? 008 ? Provider: CLAY GENAO MD Copy to: LINDA MAHER CASH APPLICATIONS ANALYST ? Final Pathologic Diagnosis: A. ?Endometrium, biopsy: 1. ?Secretory endometrium (approximately day 25). B. ?Cervix, polyp, biopsy: ? 1. ?? Benign endocervical polyp. Document reviewed and electronically signed by: Les Randolph MD Report ??Date: 09/12/2007 19:43 By the signature above, the attending physician certif ies that he/she has personally conducted a gross and/or microscopic examin ation of the described specimens and rendered or confirmed the above diagnosi s. Specimen(s) Received: A. ?Endometrial bx B. ? Cervical polyp Clinical History: ? Taking Progesterone 5 mg, day 14->24; menorrhag ia; LMP: 08/17/07 Gross Description: ? Received in formalin labelled Thiago and endometrial bx is a 3.0 x 2.5 x 1.0 cm aggregate of mu cinous thomas-white and dark brown hemorrhagic cores of soft tissue. ??The specimen is submitted in toto as (A 1) and (A2). Received in formalin labelled Thiago and cervical polyp is a 2.4 x 1.2 x 0.6 cm thomas-pink umbilicated polypoid structure. ??The resection margin is inked blue. ??The specimen is bise cted and entirely submitted as (B). ??(Robert Milton/darrius End of Report Specimen Performing Organization Address City/State/ZIP Code Phon e Number [facility] [address] [place] [address] SERVICES [facility] [address] [place] [address] documented in this encounter Visit Diagnoses Not on filedocumented in this encounter Care Teams Drapery Installer Relationship Specialty Start Date End Date Linda Maher NP PCP - General 01/27/09 03/17/[address] [place] [address] documented as of this encounter
--- OUTSIDE RECORDS SUMMARY | 2022-02-03 02:41 | XMS_ITS | Encounter Summary ---
:1970 Author Organization [facility] Address [address] [place] [address] Care Team Providers Name Role Phone Lexie Hilario MD Primary Care Provider Encounter Details Date Type Department Care Team Description 03/04/2019 Lab Requisition [facility] Unknown, Provider, Pathology & Laboratory [facility] [address] [facility] [place], [place] [address] Social History Tobacco Use Types Packs/Day Years Used Date Never Assessed Sex Assigned at Date Recorded Not on file documented as of this encounter Plan of Treatment Not on filedocumented as of this encounter Procedures Procedure Name Priority Date/Time Associated Diagnosis Comme nts FECAL BACTERIAL Routine 03/04/2019 14:45 Results for this PATHOGENS BY PCR EST procedure a re in the results section. documented in this encounter Results FECAL BACTERIAL PATHOGENS BY PCR (03/04/2019 14:45 EST) Pathologist Sig nature Salmonella PCR Negative Negative [facility] Shigella/Enteroinvasive Negative Negative [facility] HN LAB CAMPYLOBACTER PCR Negative Negative [facility] ER [facility] SERVICES Shiga Toxin PCR Negative Negative [facility] Specimen Feces - Feces Performing Organization Address City/State/ZIP Code Phon e Number [facility] [address] [place] [address] SERVICES documented in this encounter Visit Diagnoses Not on filedocumented in this encounter Additional Health Concerns Infection Onset Date Last Indicated Resolved Time COVID-19 10/26/2021 10/26/2021 11/15/2021 22:15 EDT documented as of this encounter Care Teams Communications Advisor Relationship Specialty Start Date End Date Lexie Hilario MD PCP - General 06/21/15 documented as of this encounter
--- OUTSIDE RECORDS SUMMARY | 2022-02-03 02:41 | XMS_ITS | Encounter Summary ---
:1970 Author Organization [facility] Address [address] [place] [address] Care Team Providers Name Role Phone Linda Maher SIGNAL TIMER Primary Care Provider Encounter Details Date Type Department Care Team Description 09/09/2004 Results Only [facility] - Clay Chaidez MD conversion [address] [place] [address] Social History Tobacco Use Types Packs/Day Years Used Date Never Assessed Sex Assigned at Date Recorded Not on file documented as of this encounter Plan of Treatment Not on filedocumented as of this encounter Procedures Procedure Name Priority Date/Time Associated Diagnosis Comme [facility] SURGICAL PATHOLOGY Routine 09/09/2004 0:00 EDT Re sults for this procedure are i n the results section. documented in this encounter Results SURGICAL PATHOLOGY (09/09/2004 0:00 EDT) Pathology Report: SURGICAL PATHOLOGY REPORT [facility] Reports generated via electronic interface contain daniel ginal data; LAB however they are lacking the format of the original re port. Caution should be taken when reading/interpreting unfo rmatted reports. Name: ? MONISHA PEÑA ? Accession #: ? [id number] ? : ? 1970 (Age: 33) ??F ? Collect Date: ? 09/09/2004 ? Location: ? [facility] ? Receive Date: ? 005 ? Provider: CLAY GENAO MD Copy to: LINDA MAHER SIGNAL TIMER ? Final Pathologic Diagnosis: ? Cervix, polypectomy: - Benign endocervical polyp. Document reviewed and electronically signed by: Santos Devries MD Report ??Date: 09/14/2004 16:22 By the signature above, the attending physician certif ies that he/she has personally conducted a gross and/or microscopic examin ation of the described specimens and rendered or confirmed the above diagnosi s. Specimen(s) Received: ? Cervical polyp Clinical History: ? Gross Description: ? Received in formalin labelled Thiago is a 2.5 x 1.0 x 0.2 cm portion of thomas-brown slightly nodular soft tissue. ??Entire ly submitted in one cassette. (Robert Clark/[facility] End of Report Specimen Performing Organization Address City/State/ZIP Code Phon e Number [facility] [address] [place] [address] SERVICES [facility] [address] [place] [address] documented in this encounter Visit Diagnoses Not on filedocumented in this encounter Care Teams Improvement Coordinator Relationship Specialty Start Date End Date Linda Maher NP PCP - General 01/27/09 03/17/[address] [place] [id number] documented as of this encounter
--- OUTSIDE RECORDS SUMMARY | 2022-02-03 02:41 | XMS_ITS | Encounter Summary ---
:1970 Author Organization [facility] Address [address] [place] [address] Care Team Providers Name Role Phone Linda Lee STORE DETECTIVE Primary Care Provider Encounter Details Date Type Department Care Team Description 09/05/2012 Results Only [facility] Linda Tenorio MD Laboratory Services - [address] [place] [address] [address] [place] [address] Social History Tobacco Use Types Packs/Day Years Used Date Never Assessed Sex Assigned at Date Recorded Not on file documented as of this encounter Plan of Treatment Not on filedocumented as of this encounter Procedures Procedure Name Priority Date/Time Associated Diagnosis Comme [facility] SURGICAL PATHOLOGY Routine 09/05/2012 16:17 Resul ts for this EDT procedure are i n the results section. documented in this encounter Results SURGICAL PATHOLOGY (09/05/2012 16:17 EDT) Pathology Report: SURGICAL PATHOLOGY REPORT [facility] Reports generated via electronic interface contain daniel ginal data; LAB however they are lacking the format of the original re port. Caution should be taken when reading/interpreting unfo rmatted reports. Name: ? MONISHA PEÑA ? Accession #: ? [id number] ? : ? 1970 (Age: 41) ??F ? Collect Date: ? 09/05/2012 ? Location: ? [facility] ? Receive Date: ? 013 ? Provider: LINDA TENORIO MD Copy to: JOHNNYEDE GARCIA BACKUP ADMINISTRATIVE COORDINATOR ? Final Pathologic Diagnosis: ? Endocervix, polyp, biopsy: - ?Benign endocervical polyp. Document reviewed and electronically signed by: YOLIS SARMIENTO MD Report ??Date: 09/09/2012 14:36 By the signature above, the attending physician certif ies that he/she has personally conducted a gross and/or microscopic examin ation of the described specimens and rendered or confirmed the above diagnosi s. Specimen(s) Received: ? Endocervical polyp Clinical History: ? Recurrent menometrorrhagia, S/P ablation 5 yrs ago Gross Description: ? Received in formalin labelled Monisha Peña and endocervical polyp is a 1.7 x 0.8 x 0.6 cm thomas-red, irregul ar, polypoid tissue. ??The specimen is bisected and entirely submitted as (1). ??(David Cai) /darrius End of Report Specimen Performing Organization Address City/State/ZIP Code Phon e Number [facility] [address] [place] [address] SERVICES [facility] [address] [place] [address] documented in this encounter Visit Diagnoses Not on filedocumented in this encounter Care Teams Business Center Manager Relationship Specialty Start Date End Date Linda Lee NP PCP - General 01/27/09 03/17/[address] [place] [address] documented as of this encounter
--- OUTSIDE RECORDS SUMMARY | 2022-02-03 02:41 | XMS_ITS | Encounter Summary ---
:1970 Author Organization [facility] Address [address] [place] [address] Care Team Providers Name Role Phone Linda Maher AUTOMOTIVE PORTER Primary Care Provider Encounter Details Date Type Department Care Team Description 03/02/2005 Results Only [facility] - Clay Chaidez MD conversion [address] [place] [address] Social History Tobacco Use Types Packs/Day Years Used Date Never Assessed Sex Assigned at Date Recorded Not on file documented as of this encounter Plan of Treatment Not on filedocumented as of this encounter Procedures Procedure Name Priority Date/Time Associated Diagnosis Comme [facility] SURGICAL PATHOLOGY Routine 03/02/2005 0:00 EST Re sults for this procedure are i n the results section. documented in this encounter Results SURGICAL PATHOLOGY (03/02/2005 0:00 EST) Pathology Report: SURGICAL PATHOLOGY REPORT [facility] CHRISMA[facility] Reports generated via electronic interface contain daniel ginal data; LAB however they are lacking the format of the original re port. Caution should be taken when reading/interpreting unfo rmatted reports. Name: ? GILBERT PEÑA ? Accession #: ? [id number] ? : ? 1970 (Age: 34) ??F ? Collect Date: ? 03/02/2005 ? Location: ? [facility] ? Receive Date: ? 005 ? Provider: CLAY GENAO MD Copy to: LINDA MAHER AUTOMOTIVE PORTER ? Final Pathologic Diagnosis: A. ?Fallopian tube, right, partial excisi on: 1. ?Segment of fallopian tube with no specific pathologic features. B. ?Fallopian tube, left, partial excisio n: 1. ?Segment of fallopian tube with no specific pathologic features. Document reviewed and electronically signed by: DOMENICA LANDON MD Report ??Date: 03/07/2005 17:00 By the signature above, the attending physician certif ies that he/she has personally conducted a gross and/or microscopic examin ation of the described specimens and rendered or confirmed the above diagnosi s. Specimen(s) Received: A. ?Right tube (#1) B. ?Left tube (#2) Clinical History: ? Desires sterilization; ; LMP: 03/06 Gross Description: ? Received in formalin labelled Denise ruedason and right tube is the distal portion of the fallopian tube with attached fimbria wh ich measures 4.0 cm in length and varies in diameter from 0.5 to 1.0 cm . ??The surface is smooth and thomas-blue. ??Serial sectioning reveals a muscular wall and a pinpoint lumen. Truck Shop Mechanic sections are submitted as (A). Received in formalin clayton d Thiago and L tube is a portion of fallopian tube with attached fimbria which measures 4.5 cm in le ngth and varies in diameter from 0.3 to 0.8 cm. ??The surface is blue-gra y and smooth. ??Serial sectioning reveals a muscular wall and a lumen with a smooth lining. Truck Shop Mechanic sections are submitted as (B). ??(Dr. Caitlin alvarado)/[facility] End of Report Specimen Performing Organization Address City/State/ZIP Code Phon e Number [facility] [address] [place] [address] SERVICES [facility] [address] [place] [address] documented in this encounter Visit Diagnoses Not on filedocumented in this encounter Care Teams Care Support Representative Relationship Specialty Start Date End Date Linda Maher, AUTOMOTIVE PORTER PCP - General 01/27/09 03/17/[address] [facility] [address] [place] [id number] documented as of this encounter
--- OUTSIDE RECORDS SUMMARY | 2022-02-03 02:41 | XMS_ITS | Encounter Summary ---
:1970 Author Organization [facility] Address [address] [place] [address] Care Team Providers Name Role Phone Lexie Hilario MD Primary Care Provider Encounter Details Date Type Department Care Team Description 08/13/2015 Results Only [facility]- Linda Coreas MD [phone] [address] [place] [address] Social History Tobacco Use Types Packs/Day Years Used Date Never Assessed Sex Assigned at Date Recorded Not on file documented as of this encounter Plan of Treatment Not on filedocumented as of this encounter Procedures Procedure Name Priority Date/Time Associated Diagnosis Comme nts PAP TEST- RESULT Routine 08/13/2015 0:00 EDT Resu lts for this ONLY procedure are i n the results section. documented in this encounter Results PAP TEST- RESULT ONLY (08/13/2015 0:00 EDT) Pathology Report: CYTOPATHOLOGY REPORT [facility] Reports generated via electronic interface contain daniel ginal data; SERVICES however they are lacking the format of the original re port. Caution should be taken when reading/interpreting unfo rmatted reports. Name: ? MONISHA PEÑA ? Accession #: ? [id number] ? : ? 1970 (Age: [age]) ??F ?Collect Date: ? 08/13/2015 ? Location: ? [facility] ? Receive Date: ? 08/16/19 16 ? Provider: LINDA LUCAS MD Copy to: JEANINE LASSITER AIR QUALITY CHEMIST ? Final Report SPECIMEN ADEQUACY ? Satisfactory for Evaluation - transformation zone component absent GENERAL CATEGORIZATION ? Negative for Intraepithelial Lesion or Malignan cy INTERPRETATION ? Fungal organisms pres ent morphologically consistent with Yamilex species. Last Menstrual Period: 07/27/2015 Hormonal/Contraceptive status: None Specimen/Source: ??Pap Test, Cervix/Endocervix, ThinPr ep Imaging System with manual evaluation Document reviewed and electronically signed by: ? Misty Zimmer, CT(ASCP) ? Report ??Date: 08/25/2015 09:50 HPV with Pap Test ? Date Ordered: ? 08/25/2015 ? Status: ?? Signed Out ?Date Complete: ? 08/27/2015 ? By: ??Sy stem Interface ? Date Reported: ? 08/27/2015 ? Interpretation RESULT: Negative for HPV. No E6 or E7 mRNA is detected from HPV types 16,18,31,3 3,35, 39,45,51,52,56,58,59,66, and 68 by hotel controller media genoveva amplification. Comments Document reviewed and electronically signed by: ? System Interface ? Report date: 08/27/2015 By the signature above, the attending physician certif ies that he/she has personally conducted a gross and/or microscopic examin ation of the described specimens and rendered or confirmed the above diagnosi s. End of Report Specimen Performing Organization Address City/State/ZIP Code Phon e Number [facility] [address] [place] [address] SERVICES documented in this encounter Visit Diagnoses Not on filedocumented in this encounter Care Teams Infrastructure Technician Relationship Specialty Start Date End Date Lexie Hilario MD PCP - General 06/21/15 documented as of this encounter
--- OUTSIDE RECORDS SUMMARY | 2022-02-03 02:41 | XMS_ITS | Encounter Summary ---
:1970 Author Organization [facility] Address [address] [place] [address] Care Team Providers Name Role Phone Perez Connell MD Primary Care Provider [phone] Encounter Details Date Type Department Care Team Description 06/15/2015 Hospital Encounter [facility] [place] Unknown, Provider, Tani Cable [address] [facility] [phone] [place] [address] (Work) [phone] Social History Tobacco Use Types Packs/Day Years Used Date Never Assessed Sex Assigned at Date Recorded Not on file documented as of this encounter Discharge Disposition Disposition Code Departure Means Destination Home or Self Alf documented in this encounter Plan of Treatment Not on filedocumented as of this encounter Visit Diagnoses Not on filedocumented in this encounter Care Teams Ssn/Ssbn Assistant Navigator Relationship Specialty Start Date End Date Perez Connell MD PCP - General 03/18/14 06/20/[address] [place] [address] [place] [address] documented as of this encounter
--- OUTSIDE RECORDS SUMMARY | 2022-02-03 02:41 | XMS_ITS | Encounter Summary ---
:1970 Author Organization [facility] Address [address] [place] [address] Care Team Providers Name Role Phone Lexie Hilario MD Primary Care Provider Encounter Details Date Type Department Care Team Description 10/27/2021 Lab Requisition [facility] Outr Resulting Lab, Pathology & Laboratory Provider [facility] [address], [place] [id number] Social History Tobacco Use Types Packs/Day Years Used Date Never Assessed Sex Assigned at Date Recorded Not on file documented as of this encounter Plan of Treatment Not on filedocumented as of this encounter Procedures Procedure Name Priority Date/Time Associated Diagnosis Comme nts COVID-19 TEST [facility] Today 10/26/2021 10:20 LAB PCR EDT COVID-19 TESTING Routine 10/26/2021 10:20 Results for this EDT procedure are i n the results section. documented in this encounter Results COVID-19 TEST [facility] LAB PCR (10/26/2021 10:20 EDT) Specimen Swab Performing Organization Address City/State/ZIP Code Phon e Number [facility] [address] [place] [address] SERVICES (ABNORMAL) COVID-19 TESTING (10/26/2021 10:20 EDT) COVID-19 rt-PCR Positive (AA) Negative [facility] Result Comment: LABORATORY This test has not been FDA c leared or approved. This test has been authorized by FDA under an EUA for use by authorized laboratories. This test has been authorized only for detection of nucleic acid fro SERVICES m 2018-nCo, not for any oth er viruses or pathogens. This test is only authorized for the duration of the declaration that circumstances exist justifying the authorization of emergency use of in vitro d iagnostic tests for detectio n and/or diagnosis of 2019-nCoV under section 564(b)(1) of Act, 21 U.S.C ?? 360bbb-3(b) (1), unless the authorization is terminated or revoked sooner. Performed on the Remotiumher Fusion instrument Performing Lab [place] [facility] Lab [facility] SERVICES Specimen Swab Performing Organization Address City/State/ZIP Code Phon e Number [facility] [address] [place] [id number] SERVICES documented in this encounter Visit Diagnoses Not on filedocumented in this encounter Additional Health Concerns Infection Onset Date Last Indicated Resolved Time COVID-19 10/26/2021 10/26/2021 11/15/2021 22:15 EDT documented as of this encounter Care Teams German Professor Relationship Specialty Start Date End Date Lexie Hilario MD PCP - General 06/21/15 documented as of this encounter
[2022-02-03 08:32] LABS: Anion Gap 8.2 mmol/L (3-11); BUN 22 mg/dL (7-18); CO2 31.8 mmol/L (21.0-32.0); Calcium 9.2 mg/dL (8.5-10.1); Calculated LDL 72 mg/dL (<100); Chloride 99 mmol/L (98-107); Cholesterol 161 mg/dL (<200); Estimated GFR 67.78 (mL/min/1.73m2); Glucose 98 mg/dL (74-106); HDL Cholesterol 67 mg/dL (40-60); Magnesium 2.1 mg/dL (1.8-2.4); Potassium 3.4 mmol/L (3.5-5.1); Sodium 139 mmol/L (136-145); Triglyceride 113 mg/dL (<150)
== END 2022-02-03 02:27 | disposition home or self-care (01) ==
LOC: LBO 02:26
PROVIDERS: PCP Student in an Organized Health Care Education/Training Program; Visit Provider Student in an Organized Health Care Education/Training Program
DX: E11.649 Type 2 diabetes mellitus with hypoglycemia without coma (principal); E66.8 Other obesity; Z13.220 Encounter for screening for lipoid disorders; Z98.84 Bariatric surgery status; E06.3 Autoimmune thyroiditis; I10 Essential (primary) hypertension
CPT/HCPCS: 36415; 80048; 80061; 83735

== ENCOUNTER → 2022-02-06 13:23 | Outpatient (CLI) | payer OTHER, SELFPAY ==
--- NOTE | 2022-02-06 10:15 | DI.RAD_ITS ---
Exam(s) XR CHEST 2V PA LATERAL EXAM: XR CHEST 2V PA LATERAL CLINICAL HISTORY: Fever, R50.9. TECHNIQUE: 2D digital imaging was performed. COMPARISON: CR XR CHEST 2V PA LATERAL from 12/17/2020 FINDINGS: 2 views: Heart size is normal. The mediastinum is not widened. Lungs are clear. No infiltrates nor pleural effusions. IMPRESSION: No acute pulmonary findings. DATA REPOSITORY: RADIATION DOSE DELIVERED:
== END ==
PROVIDERS: PCP Student in an Organized Health Care Education/Training Program; Visit Provider Nurse Practitioner
DX: R50.9 Fever, unspecified (principal)
CPT/HCPCS: 71046

== ENCOUNTER 2022-02-06 14:51 | Outpatient (CLI) | payer OTHER, SELFPAY ==
[2022-02-06 10:42] LABS: Abs Immature Grans 0.02 10^3/uL (0.0-0.06); Absolute Basophil Count 0.08 10^3/uL (0.0-0.2); Absolute Eosinophil Count 0.27 10^3/uL (0.0-0.7); Absolute Lymphocyte Count 4.46 10^3/uL (1.2-3.4); Absolute Monocyte Count 0.87 10^3/uL (0.1-0.8); Basophils % 0.7; Eosinophils % 2.3; HCT 43.5 % (36.0-46.0); HGB 14.5 g/dL (11.2-15.7); Immature Grans % 0.2; Lymphocytes % 38.4; MCH 28.5 pg (27.0-33.0); MCHC 33.3 % (32.0-36.0); MCV 86 fL (80-95); MPV 9.1 fL (8.0-11.0); Monocytes % 7.5; Neutrophils % 50.9; Platelet Count 473 10^3/uL (130-400); RBC 5.08 10^6/uL (3.93-5.22); RDW-SD 41.1 fL; WBC 11.62 10^3/uL (4.4-10.8)
[2022-02-06 10:44] LABS: Absolute Neutrophil Count 5.91 10^3/uL (1.2-6.7)
[2022-02-06 10:45] LABS: Bilirubin Negative (Negative); Blood Negative (Negative); Clarity Clear (Clear); Glucose Negative (Negative); Ketones Negative (Negative); Leukocyte Esterase Negative (Negative); Nitrite Negative (Negative); Specific Gravity 1.015 (1.005-1.025); Urobilinogen 0.2 EU/dL (Up TO 0.2); pH 6.5 (5-8)
== END 2022-02-06 14:52 | disposition home or self-care (01) ==
LOC: LBO 14:51
PROVIDERS: PCP Student in an Organized Health Care Education/Training Program; Visit Provider Nurse Practitioner
DX: R50.9 Fever, unspecified (principal); M86.9 Osteomyelitis, unspecified
CPT/HCPCS: 36415; 81003; 85025

== ENCOUNTER → 2022-02-08 08:56 | Outpatient (CLI) | payer OTHER, SELFPAY ==
--- NOTE | 2022-02-08 08:30 | DI.RAD_ITS ---
Exam(s) XR FOOT RT COMPLETE EXAM: XR FOOT RT COMPLETE CLINICAL HISTORY: r/o osteomyelitis, fever, pain in heel, R50.9, M86.9, M79.673. TECHNIQUE: 2D digital imaging was performed of the right foot. Three images were obtained. AP, obl ique and lateral views were obtained. COMPARISON: No exams were available for comparison FINDINGS: BONES: No acute fracture is present. No bony destructive lesion is seen. JOINTS: No dislocation present. There is a marked hallux valgus deformity. Degenerative changes are seen at the 1st MTP joint and the tarsometatarsal joints. SOFT TISSUE: Normal. IMPRESSION: No radiographic findings to suggest osteomyelitis. DATA REPOSITORY: RADIATION DOSE DELIVERED:
--- OUTSIDE RECORDS SUMMARY | 2022-02-08 08:59 | XMS_ITS | Encounter Summary ---
:1970 Author Organization [facility] [place] [address] Care Team Providers Name Role Phone Tristen Huyenjenna Tucker DO Primary Care Provider Reason for Visit Auth/Cert Specialty Diagnoses / Procedures Referred By Contact Refer red To Contact Diagnoses Morbid obesity MORBID OBESITY Procedures PRO LAP GASTRIC BYPASS/LUIS ANTONIO-EN-Y @LAPAROSCOPIC GASTROPLASTY W/ LUIS ANTONIO-EN-Y CONSTRUCTION (WRVU 29.4) Referral ID Status Reason Start Date Expiration Date Visits Requ ested Visits Authorized [id number] 1 1 Encounter Details Date Type Department Care Team Description 11/28/2019 Surgery Main Operating Room Nusrat Garcia, @ [facility] GASTROPLASTY W/ Hospital [facility] LUIS ANTONIO-EN-Y CONSTRUCTION [facility] (WRVU 29.4) [facility] [place] [address] [place] [address] [phone] (Wo rk) Social History Tobacco Use Types [...] RD; Rylie Rea APRN General Surgery at [facility] Arrive at: [facility] [phone] 03/30/2020 11:[address]; Rylie Rea APRN General Surgery at [facility] Arrive at: [facility] [phone] Instructions Given to Patient at Discharge: Patient Instructions BARIATRIC SURGERY DISCHARGE INFORMATION BARIATRIC SUPPORT TEAM CONTACT NUMBERS (Mon-Fri 8am - 5pm): General Surgery and Bariatric Surgery [phone] Bariatric Surgeons: Doctors. Shaw [phone] Assembler Carbon Brushes: [phone] Dietitians: [phone] Outside of regular business hours, including weekends and holidays: Ask for General Surgery resident content writer [phone] Please note, this call will be answered [...] weeks at the General Surgery Outpatient Clinic ([facility] [address] [place] [address]). Future Appointments Date Time Provider Department Center 12/15/2019 8:30 AM Rylie Rea APRN [facility] SURG [facility] 03/30/2020 11:00 AM Rylie Rea APRN [facility] SURG [facility] BATHING AND WOUND CARE: ?? You may [...] 200 on more than 3 checks, call [facility] care physician or diabetic specialist for recommendations. For patients on insulin and oral diabetic medications: If blood sugar is over 200 on 3 checks, call your primary care doctor or diabetic specialist for recommendations. ?? Follow up with primary care provider or analytics specialist in 1-2 weeks in order to [...] RD; Rylie Rea APRN General Surgery at [facility] Arrive at: [facility] [phone] 03/30/2020 11:[address]; Rylie Rea APRN General Surgery at [facility] Arrive at: [facility] Signed: Keon Roberson MD 11/29/2019 Primary [place] Physician: Huyen Ramon DO [address] [facility] / [facility] [id number] documented in this encounter Discharge Instructions Patient InstructionsKeon Roberson MD - 11/29/2019 10:31 AM EDT BARIATRIC SURGERY DISCHARGE INFORMATION BARIATRIC SUPPORT TEAM CONTACT NUMBERS (Mon-Fri 8am - 5pm): General Surgery and Bariatric Surgery [phone] Bariatric Surgeons: Doctors. Shaw [phone] Assembler Carbon Brushes: [phone] Dietitians: [phone] Outside of regular business hours, including weekends and holidays: Ask for General Surgery resident content writer [phone] Please note, this call will be answered [...] weeks at the General Surgery Outpatient Clinic ([facility], [facility]). Future Appointments Date Time Provider Department Center 12/15/2019 8:30 AM Rylie Rea APRN [facility] SURG [facility] 03[facility]30/2020 11:00 AM Rylie Rea APRN [facility] SURG [facility] BATHING AND WOUND CARE: ?? You may [...] Follow up with primary care provider or analytics specialist in 1-2 weeks in order to [...] documented as of this encounter Progress Notes Aunrag Bills RN - 11/29/2019 3:21 PM EDT [...] EVALUATION NOTE: OUTCOME SUMMARY: Pt presents to [facility] room 410A at 1951 s/p lap [...] Garcia MD - 11/28/2019 4:22 PM EDT [facility] Operative Note Patient Name: Monisha Das : [id number] MR#: [id number] Case Date: 11/28/2019 Surgeon: Surgeon(s) and Role: [...] The abdomen was then entered using the Escom trocar system using an 11-mm port. The [...] distal bowel was chosen to create the [id number]-[id number] jejunojejunostomy. The duodenal, afferent limb was approximated [...] suture in two layers with a 30 [place] Bougie (blunt-tipped) in place. The Bougie was [...] Encounters Date Type Specialty Care Team Description 03/10/2022 TH Visit (TeleHealth) General Surgery Rylie Rea, LINE UP MACHINE OPERATOR [facility] [place] [address] [facility] [place] [address] documented as of this encounter Goals Goal [...] (ABNORMAL) Differential, Automated (11/29/2019 3:47 AM EDT) [facility] gist Method Time Signature Neutrophils % 79.7 % [facility] Neutr Abs (ANC) 8.50 (H) 1.70 - [facility] 6.10 [facility] x10(3)/[facility] LABORATORY Lymphocytes % 14.4 % [facility] Lymphocytes Abs 1.5 0.9 - 3.2 [facility] x10(3)/[facility] LABORATORY Monocytes % 5.2 % [facility] Monocyte Abs 0.6 0.3 - 0.9 [facility] x10(3)/[facility] LABORATORY Eosinophils % 0.0 % [facility] Eosinophils Abs 0.0 0.0 - 0.4 [facility] x10(3)/[facility] LABORATORY Basophils % 0.2 % [facility] Basophils Abs 0.0 0.0 - 0.1 [facility] x10(3)/[facility] LABORATORY Immature Gran % 0.50 % [facility] Comment: Immature granulocytes(IG's)percentage an d absolute count will include metamyelocytes, myelocytes, and promyelo cytes. Blood smears from CBCs yielding IG's will be scanned manually for concor dance. If this scan disagrees with the automated IG or if promyelocytes are not ed, a manual differential will be performed. Alfreda Gran Abs 0.05 (H) 0.00 - 0.04 x10(3)/[facility] LABORATORY Specimen Anatomical Collection Method Collection Time Receive d Time (Source) Location / / Volume Laterality Blood specimen 11/29/2019 3:47 AM 020 4:16 (specimen) EDT AM EDT Resulting Agency Comment Spec In Lab Thomas Freire MD HEMATOLOGY ORDERABLES Performing Organization Address City/State/[place] [address] (ABNORMAL) Hemogram (11/29/2019 3:47 AM EDT) Analysis Performed At Patho logist Time Signature WBC 10.6 (H) 4.0 - 9.5 [facility] x10(3)/[facility] LABORATORY RBC 4.52 4.00 - [facility] 5.21 [facility] x10(6)/[facility] LABORATORY Hemoglobin 13.2 11.7 - [facility] 15.5 gm/dL [facility]ORY Hematocrit 38.8 35.7 - [facility] 45.8 % [facility]OR[facility]ORY MCV 85.8 82.6 - [facility] 94.4 fL [facility] MCH 29.2 27.1 - [facility] 32.0 pg [facility] LABORATORY MCHC 34.0 31.7 - [facility] 35.0 gm/dL [facility] LAB[facility]ORY Platelets 323 145 - 357 [facility] x10(3)/[facility] LABORATORY RDWSD 41.8 37.0 - [facility] RAJ 46.0 [facility] LABORATORY RDWCV 13.3 11.5 - [facility] 14.1 % [facility] LABORATORY MPV 9.8 7.6 - 12.9 [facility] LABORATORY nRBC % Auto 0.0 % [facility] LABOR[facility]ORY nRBC Abs Auto 0.000 0.000 - [facility] 0.000 [facility] x10(3)/[facility] LABORATORY Specimen Anatomical Collection Method Collection Time Receive d Time (Source) Location / / Volume Laterality Blood specimen 11/29/2019 3:47 AM 020 4:16 (specimen) EDT AM EDT Resulting Agency Comment Spec In Lab Thomas Freire MD HEMATOLOGY ORDERABLES Performing Organization Address City/State/Z[place] [address] Basic Metabolic Panel (non-fasting) (11/29/2019 3:47 AM EDT) P athologist Signature Glucose Lvl 123 65 - 199 [facility] mg/dL [facility]ORY Comment: Diabetes: >=200 mg/dL plus symp toms BUN 13 8 - 18 mg/dL [facility] Creatinine 0.80 0.70 - 1.20 mg/dL [facility] LABOR[facility] Sodium 136 135 - 145 mmol/L [facility]ORY Potassium 4.0 3.5 - 5.0 mmol/L [facility] Comment: Please note: ??Patients with WBC >100,00 0 may have falsely elevated Potassium levels. ??For accurate Potassium quantif ication in these patients send serum separator tube (gold top) for subsequent determinations. ??Contact the Clinical Chemistry Laboratory if there are any qu estions. Chloride 101 98 - 107 mmol/L [facility] CO2 23 22 - 31 mmol/L [facility] Anion Gap 12 5 - 15 mmol/L [facility] Calcium 9.1 8.5 - 10.5 mg/dL [facility] Estimated GFR 87 >=60 mL/min/1.73 m?? [facility] Comment: The eGFR was calculated using the CKD-EP I equation. As with all creatinine based estimates of kidney function, eGFR values calculated with the CKD-EPI equation are not accurate in patients wi th acute kidney failure, extremes of body mass or the acutely ill. http://[facility] eGFR 100 >=60 mL/min/1.73 m?? [facility] Comment: The eGFR was calculated using the CKD-EP I equation. As with all creatinine based estimates of kidney function, eGFR values calculated with the CKD-EPI equation are not accurate in patients wi th acute kidney failure, extremes of body mass or the acutely ill. http://[facility] Specimen Anatomical Collection Method Collection Time Receive d Time (Source) Location / / Volume Laterality Blood specimen 11/29/2019 3:47 AM 020 4:16 (specimen) EDT AM EDT Resulting Agency Comment Spec In Lab Nusrat Garcia MD CHEMISTRY ORDERABLES Performing Organization Address City/[facility]/ZIP Code Phon e Number [address] Phosphorus (11/29/2019 3:47 AM EDT) P athologist Signature Phosphorus 3.6 2.5 - 4.5 [facility] mg/dL [facility]OR[facility]ORY Specimen Anatomical Collection Method Collection Time Receive d Time (Source) Location / / Volume Laterality Blood specimen 11/29/2019 3:47 AM 020 4:16 (specimen) EDT AM EDT Resulting Agency Comment Spec In Lab Nusrat Garcia MD CHEMISTRY ORDERABLES Performing Organization Address City/[facility] Phon e Number [address] Magnesium (11/29/2019 3:47 AM EDT) P athologist Signature Magnesium 0.72 0.69 - 1.07 [place] mmol/L [facility]OR[facility]ORY Specimen Anatomical Collection Method Collection Time Receive d Time (Source) Location / / Volume Laterality Blood specimen 11/29/2019 3:47 AM 020 4:16 (specimen) EDT AM EDT Resulting Agency Comment Spec In Lab Nusrat Garcia MD CHEMISTRY ORDERABLES Performing Organization Address City/[facility]/ZIP Code Phon e Number [address] POCT Glucose (11/28/2019 5:19 PM EDT) athologist Signature POC Glucose 100 65 - 199 [place] mg/dL [facility]ORY Comment: Supplemental ranges: <140 mg/dL before meals <180 mg/dL all other times of the day Specimen Anatomical Collection Method Collection Time Receive d Time (Source) Location / / Volume Laterality Blood specimen 11/28/2019 5:19 PM 020 5:19 (specimen) EDT PM EDT Nusrat Garcia MD POINT OF CARE TEST ORDERABLE S Performing Organization Address City/[facility]/ZIP Code Phon e Number [address] POCT Glucose (11/28/2019 11:32 AM EDT) athologist Signature POC Glucose 96 65 - 199 [place] mg/dL [facility] Comment: Supplemental ranges: <140 mg/dL before meals <180 mg/dL all other times of the day Specimen Anatomical Collection Method Collection Time Receive d Time (Source) Location / / Volume Laterality Blood specimen 11/28/2019 11:32 0 (specimen) AM EDT 11:32 AM EDT Nusrat Garcia MD POINT OF CARE TEST ORDERABLE S Performing Organization Address City/[facility]/ZIP Code Phon e Number [address] documented in this encounter [...] RN - Reason: [phone] (Given - Provider: Anuarg Bills, LORELEI) 300 mg, Oral, EVERY MORNING, [...] Routine documented in this encounter Care Teams Cigarette Filter Inspector Relationship Specialty Start Date End Date Huyen Ramon DO PCP - General Family Medicine 04/05/18 [facility] [place] [address] documented as of this encounter
--- OUTSIDE RECORDS SUMMARY | 2022-02-08 08:59 | XMS_ITS | Encounter Summary ---
:1970 Author Organization [facility] [place] [address] Care Team Providers Name Role Phone Tristen Huynejenna Tucker DO Primary Care Provider Encounter Details Date Type Department Care Team Description 04/12/2020 Hospital [place] [address] Social History Tobacco Use Types Packs/Day [...] TH Visit (TeleHealth) General Surgery Rylie Rea, HIGH SCHOOL MUSIC INSTRUCTOR [facility] [place] [place] [address] [facility] [place] [address] documented as of this encounter Goals Goal [...] Results COVID-19 PCR (04/12/2020 12:20 PM EST) [facility] Method Time Signature SARS-CoV-2 Not Detected [...] diagnosis of COVID-19 is performed using the [employer] Alinity m JEFF S-CoV-2 Assay as authorized by the FDA Emergency Use Authorization (EUA). This EUA assay is intended for In-vitro Diagnostic (IVD) use with respiratory sp ecimens such as nasopharyngeal swabs collected from individuals during the ac eric phase of infection. This assay is performed based on the instructions for use provided by [employer] and additional guidance provided by CDC and FDA. Testing is performed in the Clinical Genomics and Advanced Technolog y Laboratory within the Department of Pathology and Laboratory Medicine at [facility], certified under the Clinical Laboratory Improvement Amendments [...] is infected. As required or requested by [facility], positive specimens may be sent for additional [...] clinical management guidance information are available at [facility] CDC Coronavirus Disease 2019 (COVID-19) webpage under ? Information for Healthcare Professionals? (https://www.cdc.gov/coronavirus/2019-nc ov/hcp/index.html) Additional information about this and ot her EUA tests can be found in provider and patient fact sheets at the following FDA website: https://www.fda.gov/medical-devices/elezrhkinuj-uyofdpm-1426-nulon-98-nwfdxngrj- dav-mdvpinlbpqjamv-irrrzey-devices/ojvbc-lzbrjubztla-yzwa SARS-Cov-2 RNA Source PANTRY STEWARD/STEWARDESS Swab [facility] Specimen (Source) Anatomical Collection Method Collection Time Re ceived Time Location / / Volume Laterality Nasopharyngeal swab Other / Unknown 04/12/2020 12:20 0 04/13/2020 (specimen) PM EST 2:15 AM EST Resulting Agency Comment Spec In Lab Nishi Nash APRN MICROBIOLOGY - GENERAL ORDER DAVIAN Performing Organization Address City/State/ZIP [place] [address] documented in this encounter Visit Diagnoses Not on filedocumented in this encounter Care Teams Seed Potato Arranger Relationship Specialty Start Date End Date Huyen Ramon DO PCP - General Family Medicine 04/05/[address] [place] [address] documented as of this encounter
--- OUTSIDE RECORDS SUMMARY | 2022-02-08 08:59 | XMS_ITS | Encounter Summary ---
:1970 Author Organization [facility] [place] [address] Care Team Providers Name Role Phone Tristen Huyenjenna Tucker DO Primary Care Provider Reason for Visit Auth/Cert Specialty Diagnoses / Procedures Referred By Contact Refer red To Contact Diagnoses Morbid obesity MORBID OBESITY Procedures PRO LAP GASTRIC BYPASS/LUIS ANTONIO-EN-Y @LAPAROSCOPIC GASTROPLASTY W/ LUIS ANTONIO-EN-Y CONSTRUCTION (WRVU 29.4) Referral ID Status Reason Start Date Expiration Date Visits Requ ested Visits Authorized [id number] 1 1 Encounter Details Date Type Department Care Team Description 11/28/2019 Anesthesia Event Main Operating Room Eva Delvalle MD [facility] [place] [address] [facility] Lulu Durham [facility] [place] [address] [place] [address] Anesthesia Record Procedure Summary Procedure Name [...] Ramirez RN Kwasnaza, Kevin J, RN right; opui-laa-ssypvb catheter system; 20 gauge, 1 in length; Rosendo Malik; intradermal injection, distraction, tolerated well, appears comfortable, age-appropriate response; 2 (Ivanna Yan RN); catheter/device intact, removed per policy/procedure, no longer indicated; 11/29/19; 1454 ETT Mask Ventilation: Easy (1); 11/28/19 1322 by Pat el, 11/28/19 1644 by ETT Type: Cuffed; ETT Size: Shreena K, MANAGER HVAC Eckert l, Shreena K, MANAGER HVAC 7.5 mm; Mac Blade: 3; Notes: Asleep; Attempts: 1; Laryngoscopy Grade: 3; ETT Placement Verified By: Auscultation, Capnometry, Visual; Secured at Teeth: 21 cm; Inserted by: spatel, cotton opener PIV 11/28/19; 1326; basilic vein 11/28/19 1326 by Pa tel, 11/29/19 1500 by (medial side of arm), left; KERRIE Odell Sharon M, RN [id number]-sulwas catheter system; 18 gauge; 1; metacarpal vein [...] Procedure Summary Date: 11/28/19 Room / Location: [facility] OR [address] [place] [address] MAIN OR Anesthesia Start: 1309 Anesthesia Stop: 1645 Procedures: @LAPAROSCOPIC GASTROPLASTY W/ LUIS ANTONIO-EN-Y CONSTRUCTION (WRVU 29.4) (N/A Abdomen) EGD, UPPER GI ENDOSCOPY (N/A ) Diagnosis: (MORBID OBESITY) Surgeon: Nusrat Garcia MD Responsible Provider: Eva Foy MD Anesthesia Type: general ASA Status: 3 All Anesthesia Providers: Anesthesiologist: Yuri Garner MD; Eva Foy MD MANAGER HVAC: Va Grace CRNA; Lulu Durham CRNA Vitals Value Taken Time BP 139/75 11/28/19 1800 Temp 36.3 ??C (97.3 ??F) 11/28/19 1646 Pulse 63 11/28/19 1828 Resp 8 11/28/19 1828 SpO2 96 % 11/28/19 1833 Pain Level 0 11/28/19 1647 Vitals shown include unvalidated device data. Patient Location: PACU/[facility] Level of Consciousness: Awake and Alert Pain Management: Satisfactory Analgesia PONV: None Cardiovascular Status: At Baseline and Hemodynamically Stable Respiratory Status: At Baseline and Room Air Postoperative Fluid Status: Intravascular EUvolemia Possible Anesthetic Complications: NONE apparent at time of evaluation Final Primary Anesthesia Type: General (The anesthetic type performed was the same as planned.) Comments: Pt doing well , still sleepy in PACU EVA FOY MD Anesthesia Preprocedure Evaluation - Yuri [...] DIAGNOSTIC performed by Luther Narayan MD at [facility] ENDOSCOPY ??? PRO ENDOSCOPIC US EXAM, ESOPH N/A 12/05/2017 UPPER EUS- ENDOSCOPIC ULTRASOUND performed by Luther Narayan MD at [facility] ENDOSCOPY ??? PRO UPPER GI ENDOSCOPY, BIOPSY N/A 12/05/2017 EGD WITH BIOPSY (WRVU 2.49) performed by Luther Narayan MD at [facility] ENDOSCOPY ??? TONSILLECTOMY Social History Tobacco Use [...] with patient and spouse. Plan discussed with MANAGER HVAC and attending. PAT Clinic Note documented in this encounter Plan of Treatment Upcoming Encounters Date Type Specialty Care Team Description 03/10/2022 TH Visit (TeleHealth) General Surgery Rylie Rea, AUDIO VISUAL DIRECTOR [facility] [place] [address] Keiry Chatterjee, SAM [facility] [place] [address] documented as of this encounter Goals Goal [...] mg documented in this encounter Care Teams Artist Model Relationship Specialty Start Date End Date Huyen Ramon DO PCP - General Family Medicine 04/05/18 [address] [place] [address] documented as of this encounter
--- OUTSIDE RECORDS SUMMARY | 2022-02-08 08:59 | XMS_ITS | Encounter Summary ---
:1970 Author Organization [facility] [place] [address] Care Team Providers Name Role Phone JohanaHuyen sharma Caitlin MOORE Primary Care Provider Encounter Details Date Type Department Care Team Description 12/05/2019 Telephone General Surgery at [facility] [place] [address] Social History Tobacco Use Types Packs/Day [...] get a call before the holiday weekend. [phone] documented in this encounter Plan of Treatment Upcoming Encounters Date Type Specialty Care Team Description 03/10/2022 TH Visit (TeleHealth) General Surgery Rylie Rea, TREATING MACHINE OPERATOR [facility] [place] [address] Keiry Chatterjee, RD [facility] [place] [address] documented as of this encounter Goals Goal [...] on filedocumented in this encounter Care Teams Orchid Grower Relationship Specialty Start Date End Date Huyen Ramon DO PCP - General Family Medicine 04/05/[address] [place] [address] documented as of this encounter
--- OUTSIDE RECORDS SUMMARY | 2022-02-08 08:59 | XMS_ITS | Encounter Summary ---
:1970 Author Organization [facility] [place] [address] Care Team Providers Name Role Phone Huyen Ramon Primary Care Provider Reason for Visit Reason Comments Follow-up Encounter Details Date Type Department Care Team Description 12/28/2020 Office Visit General Surgery at Quintin Rea, HAM ROLLING MACHINE OPERATOR [facility] [place] [address] Post-resection malabsorption; [facility] Keiry Chatterjee, RD [facility] [place] [address] S/P bariatric surgery; [facility] [place] [address] Social History Tobacco Use Types Packs/Day Years [...] this encounter Patient Instructions Patient InstructionsRylie Rea, HAM ROLLING MACHINE OPERATOR - 12/28/2020 11:00 AM EDT [facility] merchandise support associate Yolanda [phone] and Yadira [phone] Dietitians: [phone] Surgeons/ nurse practitioners: [phone] Nurse line: [phone] Dear Monisha, Please see your electronic medical record note from today for details we discussed at your visit. Below is some additional general information that you may find helpful. Testing: It would be helpful if you can have your lab work drawn a couple days before your visit at a [facility] facility so the results are available at the time of your follow up visit. If you have labworkdone by your primary emergency care attendant before that date, please have a copy sent to the Bariatric Surgery Program. Please call/send my message if you have not heard from us within 2 weeks of having labs work done. Here's the link to [facility] Lab hours and locations: [email or web address] Next visit: Follow up visits are done at 4 months and 12 months after surgery and yearly thereafter.Some patients are evaluated on a more frequent basis. Please call [phone] if you do not receivean appointment by [...] Blow dry area on low setting with chair car attendant. 3. Avoid excessive heat and/or sweating as [...] such as Ibuprofen (Advil), Aleve (Naproxen), Excedrin, Liza-Bancroft should be used sparingly after gastric bypass, [...] Our post surgery support group meets at [facility] on the first Sunday of every month from 1:00 PM-2:00 PM. Nutrition and Activity apps- Baritastic, My Fitness Pal, Lose It, My Plate Internet resources: www.Singularu www.[place]ley www.bariatriceating.[employer] www.Cyto Wave TechnologiesPal.[employer]/blog [facility] facebook page: [email or web address]://www.[email or web address]ER[facility]ariatricSurgery Books & Magazines: - Recipes for Life After Weight Loss Surgery by Kassandra Carrasco - Shrink Yourself by Dr Jay Jay Levine - Eating Well - www.[employer] - Cooking Light- www.cookinglight.[employer] Anxiety: The Happiness Trap by Faustino Gallo The Mindfulness and acceptance workbook for anxiety By Blaine Simpson. Mindful eating: What are you Hungry For? By Mao Rodriguez The Mindful Diet by Shauna Truong and the [facility] group. Emotional eating: End Emotional [...] choice and low BS. 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 [...] minutes 4-5 x week. Sucks on a [employer] Bernice Rancher x 3 while exercise to prevent [...] exercise, unless she exercises fasting. Having a [place]. Bernice Rancher during exercise prevents the lows. Meal p/t exercise is a mixed meal of protein, fat and carbohydrates. Will discuss hypoglycemia with HAM ROLLING MACHINE OPERATOR. She continues to take the recommended supplements. [...] 12/28/2020 11:00 AM EDT [place] [address] Reason for visit: Bariatric Surgery follow up [...] PPI? Hyperlipidemia: [x]?Yes, not on meds o LAUREN: []?Yes, ??[x]?Not a baseline issue [...] No recent nausea/vomiting. No diarrhea. Occasional constipation. DIRECTOR OF PATIENT SAFETY: regular menses. S/p tubal ligation Skin: No c/o redundant skin or skin fold rashes. Health Habits: Tobacco/Nicotine use: None ETOH use: None None NSAID use. Social History: lives with her partner Jayne, 3 of their children live with them. Monisha has 4 children (teens/twenties), Her partner has 2 teenage children. 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 Dietary history/ exericse/ activity level: See dietitian [...] well enough. o Patient has met with loans consultant today, please see note for additional details/dietary [...] e-DH 30 minutes spent with patient in [id number] discussion including review of diagnosis, labs, counseling/education [...] If labwork is done by the primary emergency care attendant: please send a copy to the Bariatric Surgery Program, General Surgery Clinic, [facility], or fax [phone] documented in this encounter Plan of Treatment Upcoming Encounters Date Type Specialty Care Team Description 03/10/2022 TH Visit (TeleHealth) General Surgery Rylie Rea APRN [facility] [place] [address] Keiry Chatterjee, SAM [facility] [place] [address] documented as of this encounter Goals Goal [...] B1) PM EDT malabsorption procedure are in [facility] S/P bariatric the results surgery section. Disorder [...] Signature Hemoglobin A1C 5.4 4.3 - 5.6 [facility] Comment: Reference Range: 4.3 - [...] Mellitus, Diabetes Care 2013; 36: Suppl. 1, S67-01 Est Avg Gluc 109 mg/dL [facility] Comment: eAG equivalents for HbA1c percentages: HbA1c(%) ?eAG(mg/dL) 6.0 ?126 6.5 ?140 7.0 ?154 7.5 ?169 8.0 ?183 8.5 ?197 9.0 ?212 9.5 ?226 10.0 ? 240 Limitations: The eAG calculation has not been validated on women, individuals below 18 years old and above 70 years old, and individuals with hemoglobinopathies. Additional resources are available on [facility] ADA website. Javi LOZOYA, Juan J, Zoya R, et al. ??Tr anslating the A1C assay into estimated average glucose values. ??Diabetes Care 2008:31(8):2013-5140. Specimen Anatomical Collection Method Collection Time Receive d Time (Source) Location / / Volume Laterality Blood 12/28/2020 12:34 12/28/2020 PM EDT 12:47 PM EDT Resulting Agency Comment Spec In Lab Rylie Rea APRN CHEMISTRY ORDERABLES Performing Organization Address City/State/ZIP Code Phon e Number [place] [address] Vitamin D, 25-Hydroxy (12/28/2020 12:34 PM EDT) Patholo gist Method Time Signature 25-OH Vit D 29 21 - 100 [facility] RAJ Total ng/mL [facility] 25-OH Vit D Insufficient [facility] Interp [facility] Specimen Anatomical Collection Method Collection Time Receive d Time (Source) Location / / Volume Laterality Blood 12/28/2020 12:34 12/28/2020 PM EDT 12:47 PM EDT Resulting Agency Comment Spec In Lab Rylie Rea APRN CHEMISTRY ORDERABLES Performing Organization Address City/State/ZIP Code Phon e Number [address] Vitamin B12 (12/28/2020 12:34 PM EDT) athologist Signature Vitamin B-12 580 232 - 1,245 [facility] pg/mL [facility] Specimen Anatomical Collection Method Collection Time Receive d Time (Source) Location / / Volume Laterality Blood 12/28/2020 12:34 12/28/2020 PM EDT 12:47 PM EDT Resulting Agency Comment Spec In Lab Rylie Rea APRN CHEMISTRY ORDERABLES Performing Organization Address City/State/ZIP Code Phon e Number [address] Vitamin B1, whole blood (12/28/2020 12:34 PM EDT) athologist Signature Vit B1 Lvl WB 103 70 - [address] [facility] nmol/L [facility] Comment: ADDITIONAL INFORMATIO N This test was developed and its performa nce characteristics determined by [facility] in a manner co nsistent with CLIA requirements. This test has not been yoav ared or approved by the U.S. Food and Drug Administration. Test Performed by: [facility] [address] [address] 815 Telemetry Tech: Jun Blair M.D. Ph. D.; [facility]# [id number] Specimen Anatomical Collection Method Collection Time Receive d Time (Source) Location / / Volume Laterality Blood 12/28/2020 12:34 12/28/2020 2:45 PM EDT PM EDT Resulting Agency Comment Spec In Lab Rylie Brandon Álvaro NUNEZ CHEMISTRY ORDERABLES Performing Organization Address City/[facility]/ZIP Code Phon e Number [address] (ABNORMAL) PTH (12/28/2020 12:34 PM EDT) P athologist Signature PTH 78 (H) 15 - 65 [facility] pg/mL [facility] Specimen Anatomical Collection Method Collection Time Receive d Time (Source) Location / / Volume Laterality Blood 12/28/2020 12:34 12/28/2020 PM EDT 12:47 PM EDT Resulting Agency Comment Spec In Lab Rylie Rea APRN CHEMISTRY ORDERABLES Performing Organization Address City/[facility]/ZIP Code Phon e Number [address] Iron and TIBC (12/28/2020 12:34 PM EDT) P athologist Signature Iron 92 30 - [address] [facility] mcg/dL [facility] TIBC 304 250 - [address] [facility] mcg/dL [facility] Iron Saturation 30 20 - 50 % [facility] Specimen Anatomical Collection Method Collection Time Receive d Time (Source) Location / / Volume Laterality Blood 12/28/2020 12:34 12/28/2020 PM EDT 12:47 PM EDT Resulting Agency Comment Spec In Lab Rylie Rea APRN CHEMISTRY ORDERABLES Performing Organization Address City/[facility]/ZIP Code Phon e Number [address] (ABNORMAL) Hemogram (12/28/2020 12:34 PM EDT) P athologist Signature WBC 9.7 (H) 4.0 - 9.[address] [facility] x10(3)/[facility] LABORATORY RBC 4.79 4.00 - [place]ANT[place]J 5.21 [facility] x10(6)/[facility] LABORATORY Hemoglobin 14.2 11.7 - [place] 15.5 g/dL [facility] Hematocrit 41.6 35.7 - [place] 45.8 % [facility] MCV 86.8 82.6 - [place] RAJ 94.4 [facility] LABORATORY MCH 29.6 27.1 - [place] 32.0 pg [facility] MCHC 34.1 31.7 - [place] 35.0 g/dL [facility] Platelets 348 145 - [address] [facility] x10(3)/[facility] LABORATORY RDWSD 41.0 37.0 - [place] RAJ 46.0 [facility] LABORATORY RDWCV 12.8 11.5 - [facility] RAJ 14.1 % [facility] MPV 9.6 7.6 - 12.9 [facility] LABORATORY nRBC % Auto 0.0 % [facility] nRBC Abs Auto 0.000 0.000 - [place] RAJ 0.000 [facility] x10(3)/[facility] LABORATORY Specimen Anatomical Collection Method Collection Time Receive d Time (Source) Location / / Volume Laterality Blood 12/28/2020 12:34 12/28/2020 PM EDT 12:47 PM EDT Resulting Agency Comment Spec In Lab Rylie Rea APRN HEMATOLOGY ORDERABLES Performing Organization Address City/[facility]/[place] [address] Folate, serum (12/28/2020 12:34 PM EDT) P athologist Signature Folate Lvl 7.7 4.8 - 24.2 [facility] RAJ ng/mL [facility] Specimen Anatomical Collection Method Collection Time Receive d Time (Source) Location / / Volume Laterality Blood 12/28/2020 12:34 12/28/2020 PM EDT 12:47 PM EDT Resulting Agency Comment Spec In Lab Rylie Rea APRN CHEMISTRY ORDERABLES Performing Organization Address City/State/ZIP Code [place] [address] Ferritin (12/28/2020 12:34 PM EDT) athologist Signature Ferritin 41 30 - 400 [facility] ng/mL [facility] Comment: Pediatric reference ranges not verified at [facility], interpret with caution. Reference ranges for females [...] Organization Address City/State/ZIP Code Phon e Number [address] (ABNORMAL) Comprehensive metabolic panel (non-fasting) (12/28/2020 12:34 PM EDT) athologist Signature Glucose Lvl 86 65 - [address] [facility] mg/dL [facility] Comment: Diabetes: >=200 mg/dL plus symp toms BUN 15 8 - 18 mg/dL [facility] Creatinine 0.81 0.70 - 1.20 mg/dL [facility] Sodium 138 135 - 145 mmol/L [facility] Potassium 3.3 (L) 3.5 - 5.0 mmol/L [facility] Comment: Please note: ??Patients with WBC >100,00 0 may have falsely elevated Potassium levels. ??For accurate Potassium quantif ication in these patients send serum separator tube (gold top) for subsequent determinations. ??Contact the Clinical Chemistry Laboratory if there are any qu estions. Chloride 98 98 - 107 mmol/L [facility] CO2 29 22 - 31 mmol/L [facility] Anion Gap 11 5 - 15 mmol/L [facility] Calcium 9.7 8.5 - 10.5 mg/dL [facility] Total Protein 7.1 6.1 - 8.0 g/dL [facility] Albumin 4.4 3.2 - 5.2 g/dL [facility] AST 19 0 - 30 unit/L [facility] ALT 18 0 - 30 unit/L [facility] Alk Phos 59 35 - 105 unit/L [facility] Total Bilirubin 0.3 0.2 - 1.3 mg/dL [facility] Estimated GFR 84 >=60 mL/min/1.73 m?? [facility] Comment: This patient? s estimated glomerular [...] Organization Address City/State/[place] [address] documented in this encounter Visit Diagnoses Diagnosis Post-resection malabsorption Other and unspecified postsurgical nonab sorption S/P bariatric surgery Bariatric surgery status Disorder of iron metabolism Other disorders of iron metabolism documented in this encounter Care Teams Installation And Service Technician Relationship Specialty Start Date End Date Huyen Ramon DO PCP - General Family Medicine 04/05/[address] [place] [place] [address] documented as of this encounter
--- OUTSIDE RECORDS SUMMARY | 2022-02-08 08:59 | XMS_ITS | Encounter Summary ---
:1970 Author Organization [facility] [place] [address] Care Team Providers Name Role Phone LdHuyen resendez Caitlin MOORE Primary Care Provider Reason for Visit Reason Comments Follow-up s/p nerissa surg 11/29/19 Encounter Details Date Type Department Care Team Description 03/23/2020 Office Visit General Surgery at Quintin Rea, ENRIQUE [facility] [place] [address] Post-resection malabsorption; [facility] Keiry Chatterjee, RD [facility] [place] [address] S/P bariatric surgery; [facility] [place] [address] Social History Tobacco Use Types Packs/Day Years [...] D, RD - 03/23/2020 11:00 AM EST [facility] direct support specialist Yolanda [phone] and Yadira [phone] Dietitians: [phone] Surgeons/ nurse practitioners: [phone] Nurse line: [phone] Dear Monisha, Below please find a summary [...] your vitamins and supplements. Please call/send my Bandtastic message if you have not heard from [...] on a more frequent basis. Please call [phone] if you do not receive an appointment [...] dry area on low setting with chair inspector and leveler. 3. Apply absorbent powder such as Gold [...] Our post surgery support group meets at [facility] on the first Sunday of every month from 1:00 PM-2:00 PM. Nutrition and Activity apps- Baritastic, My Fitness Pal, Lose It, My Plate Internet resources: www.BeHome247 wwwMobileHandshake www.CO3 VentureseaPrairie Cloudware.Insem Spa www.Zebra Digital Assets.Insem Spa/blog [facility] facebook page: https://www.facebook.com/[facility]ricSurgery Books & Magazines: - Recipes for Life After Weight Loss Surgery by Kassandra Carrasco - Shrink Yourself by Dr Jay Jay Levine - Eating Well - www.Campus Quad.Insem Spa - Cooking Light- www.cookinglight.Insem Spa Anxiety: The Happiness Trap by Faustino Gallo The Mindfulness and acceptance workbook for anxiety By Blaine Simpson. Mindful eating: What are you Hungry For? By Mao Rodriguez The Mindful Diet by Shauna Truong and the [facility] group. Emotional eating: End Emotional Eating by Keiry Rondon Calming the Emotional Storm Christa Poole documented in this encounter Progress Notes Keiry Chatterjee RD - 03/23/2020 11:00 AM EST Bariatric Surgery Program Nutrition Progress Note Encounter Type: follow up SUBJECTIVE: Topics Discussed/Patient Concerns: ?? No concerns. 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 No diarrhea or constipation. 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 S/p tubal ligation Skin: No c/o redundant skin or skin fold rashes. Health Habits: Tobacco/Nicotine use: None ETOH use: None None NSAID use. Social History: lives with her partner Jayne. Monisha has 4 children(19, 15, and 24 yo twins, Her partner has 2 children (18 yo and 15 yo). 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 Dietary history/ exericse/ activity level: See dietitian [...] well enough. o Patient has met with warehouse associate driver today, please see note for additional details/dietary evaluation. ??? Obesity related co-morbidities are improved/stable overall. o GERD: discussed how to taper down/off PPI. ?? Advised that Ursodiol can be discontinued at 6 months post-operatively ?? Risk for vitamin deficiencies: ?? See warehouse associate driver note re: recommendations regarding vitamin and mineral [...] If labwork is done by the primary neonatal intensive care unit nurse: please send a copy to the Bariatric Surgery Program, General Surgery Clinic, [facility], or fax [phone] documented in this encounter Plan of Treatment Upcoming Encounters Date Type Specialty Care Team Description 03/10/2022 TH Visit (TeleHealth) General Surgery Rylie Rea APRN [facility] [place] [address] Keiry Chatterjee, SAM [facility] [place] [address] documented as of this encounter Goals Goal [...] B1) PM EST malabsorption procedure are in [facility] S/P bariatric the results surgery section. [...] 25-OH Vit D 44 21 - 100 [facility] Total ng/mL [facility] LABOR[facility] 25-OH Vit D Sufficient [facility] LABORATORY Specimen Anatomical Collection Method Collection Time Receive d Time (Source) Location / / Volume Laterality Blood specimen 03/23/2020 12:18 0 (specimen) PM EST 12:28 PM EST Resulting Agency Comment Spec In Lab Rylie Rea APRN CHEMISTRY ORDERABLES Performing Organization Address City/State/[place] [address] Vitamin B12 (03/23/2020 12:18 PM EST) P athologist Signature Vitamin B-12 1,230 232 - 1,245 [facility] pg/mL [facility] Specimen Anatomical Collection Method Collection Time Receive d Time (Source) Location / / Volume Laterality Blood specimen 03/23/2020 12:18 0 (specimen) PM EST 12:28 PM EST Resulting Agency Comment Spec In Lab Rylie Rea APRN CHEMISTRY ORDERABLES Performing Organization Address City/[facility]/ZIP Code Phon e Number [address] PTH (03/23/2020 12:18 PM EST) P athologist Signature PTH 65 15 - 65 [facility] pg/mL [facility] Specimen Anatomical Collection Method Collection Time Receive d Time (Source) Location / / Volume Laterality Blood specimen 03/23/2020 12:18 0 (specimen) PM EST 12:28 PM EST Resulting Agency Comment Spec In Lab Rylie Rea APRN CHEMISTRY ORDERABLES Performing Organization Address [facility] Phon e Number [address] Vitamin B1, whole blood (03/23/2020 12:18 PM EST) athologist Signature Vit B1 Lvl WB 128 70 - 180 [facility] nmol/L [facility] Comment: ADDITIONAL INFORMATIO N This test was developed and its performa nce characteristics determined by [facility] in a manner co nsistent with CLIA requirements. This test has not been yoav ared or approved by the U.S. Food and Drug Administration. Test Performed by: [facility] [address] [address] [facility] Nurse: Jun Blair M.D. Ph. D.; CLIA# [id number] Specimen Anatomical Collection Method Collection Time Receive d Time (Source) Location / / Volume Laterality Blood specimen 03/23/2020 12:18 0 4:19 (specimen) PM EST PM EST Resulting Agency Comment Spec In Lab Rylie Rea APRN CHEMISTRY ORDERABLES Performing Organization Address City/[facility]/ZIP [facility] Phon e Number [address] Iron and TIBC (03/23/2020 12:18 PM EST) athologist Signature Iron 56 30 - 150 [facility] mcg/dL [facility] TIBC 257 250 - 450 [facility] m[facility]dL [facility] Iron Saturation 22 20 - 50 % [facility] Specimen Anatomical Collection Method Collection Time Receive d Time (Source) Location / / Volume Laterality Blood specimen 03/23/2020 12:18 0 (specimen) PM EST 12:28 PM EST Resulting Agency Comment Spec In Lab Rylie Rea APRN CHEMISTRY ORDERABLES Performing Organization Address City/[facility]/ZIP Code Phon e Number [address] Folate, serum (03/23/2020 12:18 PM EST) athologist Signature Folate Lvl 18.0 4.8 - 24.2 [facility] ng/mL [facility] Specimen Anatomical Collection Method Collection Time Receive d Time (Source) Location / / Volume Laterality Blood specimen 03/23/2020 12:18 0 (specimen) PM EST 12:28 PM EST Resulting Agency Comment Spec In Lab Rylie Rea APRN CHEMISTRY ORDERABLES Performing Organization Address City/[facility] Phon e Number [address] Hemogram (03/23/2020 12:18 PM EST) athologist Signature WBC 7.7 4.0 - 9.5 [facility] x10(3)/[facility] LABORATORY RBC 5.10 4.00 - [place] [facility] 5.21 [facility] x10(6)/[facility] LABORATORY Hemoglobin 14.7 11.7 - [place] [facility] 15.5 gm/dL [facility] Hematocrit 43.0 35.7 - [place] [facility] 45.8 % [facility] MCV 84.3 82.6 - [facility] 94.4 fL [facility] MCH 28.8 27.1 - [place] [facility] 32.0 pg [facility] MCHC 34.2 31.7 - [place] [facility] 35.0 gm/dL [facility] Platelets 339 145 - 357 [facility] x10(3)/[facility] LABORATORY RDWSD 39.0 37.0 - [place] ANTHONY 46.0 [facility] LABORATORY RDWCV 12.6 11.5 - [place] 14.1 % [facility] MPV 9.7 7.6 - 12.9 [facility] LABORATORY nRBC % Auto 0.0 % [facility] LAB[facility] nRBC Abs Auto 0.000 0.000 - [place] ANTHONY 0.000 [facility] x10(3)/[facility] LABORATORY Specimen Anatomical Collection Method Collection Time Receive d Time (Source) Location / / Volume Laterality Blood specimen 03/23/2020 12:18 0 (specimen) PM EST 12:28 PM EST Resulting Agency Comment Spec In Lab Rylie Rea APRN HEMATOLOGY ORDERABLES Performing Organization Address City/[facility]/[place] [address] Ferritin (03/23/2020 12:18 PM EST) athologist Signature Ferritin 94 15 - 150 [facility] ng/mL [facility] Comment: Pediatric reference ranges not verified at [facility], interpret with caution. Reference ranges for females greater keaton n 50 years of age approach values for men, i.e., 30-400 ng/mL. Specimen Anatomical Collection Method Collection Time Receive d Time (Source) Location / / Volume Laterality Blood specimen 03/23/2020 12:18 0 (specimen) PM EST 12:28 PM EST Resulting Agency Comment Spec In Lab Rylie Rea APRN CHEMISTRY ORDERABLES Performing Organization Address City/[facility]/[place] [address] (ABNORMAL) Comprehensive metabolic panel (non-fasting) (03/23/2020 12:18 PM EST) athologist Signature Glucose Lvl 94 65 - 199 [facility] mg/dL [facility] Comment: Diabetes: >=200 mg/dL plus symp toms BUN 14 8 - 18 mg/dL [facility] Creatinine 0.93 0.70 - 1.20 mg/dL [facility] Sodium 140 135 - 145 mmol/L [facility] Potassium 3.2 (L) 3.5 - 5.0 mmol/L [facility] Comment: Please note: ??Patients with WBC >100,00 0 may have falsely elevated Potassium levels. ??For accurate Potassium quantif ication in these patients send serum separator tube (gold top) for subsequent determinations. ??Contact the Clinical Chemistry Laboratory if there are any qu estions. Chloride 99 98 - 107 mmol/L [facility] CO2 30 22 - 31 mmol/L [facility] Anion Gap 11 5 - 15 mmol/L [facility] Calcium 9.7 8.5 - 10.5 mg/dL [facility] Total Protein 7.0 6.1 - 8.0 gm/dL [facility] Albumin 4.4 3.2 - 5.2 gm/dL [facility] AST 21 0 - 30 unit/L [facility] ALT 20 0 - 30 unit/L [facility] Alk Phos 64 35 - 105 unit/L [facility] Total Bilirubin 0.4 0.2 - 1.3 mg/dL [facility] Estimated GFR 72 >=60 mL/min/1.73 m?? [facility] Comment: This patient? s estimated [...] Organization Address City/State/ZIP [place] [address] Hemoglobin A1c (03/23/2020 12:18 PM EST) P athologist Signature Hemoglobin A1C 5.6 4.3 - 5.6 [facility] Comment: Reference Range: 4.3 - [...] 1, S67-74 Est Avg Gluc 115 mg/dL [facility] Comment: eAG equivalents for HbA1c percentages: HbA1c(%) ?eAG(mg/dL) 6.0 ?126 6.5 ?140 7.0 ?154 7.5 ?169 8.0 ?183 8.5 ?197 9.0 ?212 9.5 ?226 10.0 ? 240 Limitations: The eAG calculation has not been validated on women, individuals below 18 years old and above 70 years old, and individuals with hemoglobinopathies. Additional resources are available on [facility] website. Javi LOZOYA, Juan J, Zoya R, et al. ??Tr anslating the A1C assay into estimated average glucose values. ??Diabetes Care 2008:31(8):4418-4318. Specimen Anatomical Collection Method Collection Time Receive d Time (Source) Location / / Volume Laterality Blood specimen 03/23/2020 12:18 0 (specimen) PM EST 12:28 PM EST Resulting Agency Comment Spec In Lab Rylie Rea APRN CHEMISTRY ORDERABLES Performing Organization Address City/State/[place] [address] documented in this encounter Visit Diagnoses Diagnosis Post-resection malabsorption Other and unspecified postsurgical nonab sorption S/P bariatric surgery Bariatric surgery status Disorder of iron metabolism Other disorders of iron metabolism documented in this encounter Care Teams Service Engine Repairer Relationship Specialty Start Date End Date Huyen Ramon DO PCP - General Family Medicine 04/05/[address] [place] [address] [place] [address] documented as of this encounter
--- OUTSIDE RECORDS SUMMARY | 2022-02-08 08:59 | XMS_ITS | Encounter Summary ---
:1970 Author Organization [facility] [place] [address] Care Team Providers Name Role Phone Huyen Ramon DO Primary Care Provider Reason for Visit Consultation (Routine) - Closed Specialty Diagnoses / Procedures Referred By Contact Refer red To Contact Endocrinology Diagnoses S/P bariatric surgery Post-resection malabsorption Hypoglycemia Rylie Rea, [facility] Endocrinology 3b ORTHOPEDIC SHOE FITTER [facility] [place] [address] [place] [address] Referral ID Status Reason Start Date Expiration Date Visits V isits Requested Authorized [id number] Closed Consult, 04/04/2021 04/04/2022 1 1 Test & Treat Encounter Details Date Type Department Care Team Description 04/12/2021 TH Visit Endocrinology at [facility] [place], Maryanne Dumping syndrome; (TeleHealth) [facility] [place] [address] CENTER [phone] ENDOCRINOLOGY [place], [place] [address] Social History Tobacco Use Types [...] plan. 3. Labs to be sent to [facility]. 4. Follow up to be determined. [...] of call: 35 minutes Location of patient: [place], [place] Location of provider: [place] location, [place] Reason for Visit: Unexplained hypoglycemia HISTORY OF [...] hypoglycemia. Started ~4mo ago. 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 to , [...] understanding. Maryanne Mendieta PA-C Department of Endocrinology [facility] documented in this encounter Plan of Treatment Upcoming Encounters Date Type Specialty Care Team Description 03/10/2022 TH Visit (TeleHealth) General Surgery Rylie Rea, ORTHOPEDIC SHOE FITTER [facility] [place] [address] [facility] [place] [address] documented as of this encounter Goals Goal [...] unspecified documented in this encounter Care Teams Promotion Specialist Relationship Specialty Start Date End Date Huyen Ramon DO PCP - General Family Medicine 04/05/[address] [place] [address] documented as of this encounter
--- OUTSIDE RECORDS SUMMARY | 2022-02-08 08:59 | XMS_ITS | Encounter Summary ---
:1970 Author Organization [facility] [place] [address] Care Team Providers Name Role Phone Tristen Hueynjenna Tucker DO Primary Care Provider Encounter Details Date Type Department Care Team Description 12/30/2021 Telephone General Surgery at [facility] Rylie Rea, [facility] [place] [address] [facility] [phone] [place], [place] [address] (Wo rk) Social History Tobacco [...] Rea APRN [facility] [place] [address] [facility] [place] [address] documented as of this encounter Goals Goal [...] on filedocumented in this encounter Care Teams Environmental Engineering Technician Relationship Specialty Start Date End Date Huyen Ramon DO PCP - General Family Medicine 04/05/[address] [place] [address] documented as of this encounter
--- OUTSIDE RECORDS SUMMARY | 2022-02-08 08:59 | XMS_ITS | Encounter Summary ---
:1970 Author Organization [facility] [place] [address] Care Team Providers Name Role Phone Huyen Ramon Primary Care Provider Reason for Visit Reason Onset Date Comments Results 11/26/2019 Negative Covid (Pre- Op) Encounter Details Date Type Department Care Team Description 11/26/2019 Telephone [facility] Mary Doherty, Connie (Negative Covid [facility] Diana Gary RN (Pre-Op)) [place] [address] Social History Tobacco Use Types Packs/Day [...] Rea, ENRIQUE [place] [address] [facility] [place] [address] documented as of this encounter Goals Goal Patient Goal Associated Recent Patient-Stated? Author Type Problems Progress increase Lifestyle On track No Aayla active ilia (08/29/2019 Linda Arcos goal 10:03 [...] filedocumented in this encounter Care Teams Corporate Attorney Relationship Specialty Start Date End Date Huyen Ramon DO PCP - General Family Medicine 04/05/[address] [place] [address] documented as of this encounter
--- OUTSIDE RECORDS SUMMARY | 2022-02-08 08:59 | XMS_ITS | Encounter Summary ---
:1970 Author Organization [facility] [place] [address] Care Team Providers Name Role Phone TristenHuyen Caitlin MOORE Primary Care Provider Reason for Visit Auth/Cert Specialty Diagnoses / Procedures Referred By Contact Refer red To Contact Diagnoses Morbid obesity MORBID OBESITY Procedures PRO LAP GASTRIC BYPASS/LUIS ANTONIO-EN-Y @LAPAROSCOPIC GASTROPLASTY W/ LUIS ANTONIO-EN-Y CONSTRUCTION (WRVU 29.4) Referral ID Status Reason Start Date Expiration Date Visits Requ ested Visits Authorized [id number] 1 1 Encounter Details Date Type Department Care Team Description 11/28/2019 - Hospital Encounter 4 [place] Mary Garcia Sa [facility] 11/29/2019 [facility] MD [address] [place] [address] [place] [address] [phone] Social History Tobacco Use Types Packs/Day Years [...] RD; Rylie Rea, ENRIQUE General Surgery at [facility] [place]rive at: [facility] Area [phone] 03/30/2020 11:[address]; Rylie Rea APRN General Surgery at [facility] [place]rive at: [facility]id [facility] Area [phone] Instructions Given to Patient at Discharge: Patient Instructions BARIATRIC SURGERY DISCHARGE INFORMATION BARIATRIC SUPPORT TEAM CONTACT NUMBERS (Mon-Fri 8am - 5pm): General Surgery and Bariatric Surgery [phone] Bariatric Surgeons: Doctors. Shaw [phone] Lamp Cleaner: [phone] Dietitians: [phone] Outside of regular business hours, including weekends and holidays: Ask for General Surgery resident electronic specialist [phone] Please note, this call will be answered [...] weeks at the General Surgery Outpatient Clinic (De[facility] [address] [place] [address]). Future Appointments Date Time Provider Department Center 12/15/2019 8:30 AM Rylie Rea APRN [facility] 03/30/2020 11:00 AM Rylie Rea APRN [facility] BATHING AND WOUND CARE: ?? You may [...] 200 on more than 3 checks, [facility] or diabetic specialist for recommendations. For patients on insulin and oral diabetic medications: If blood sugar is over 200 on 3 checks, call your primary care doctor or diabetic specialist for recommendations. ?? Follow up with primary care provider or environmental protection specialist in 1-2 weeks in order to [...] RD; Rylie Rea APRN General Surgery at [facility] Arrive at: De[facility]id F[facility] Area [phone] 03/30/2020 11:[address]; Rylie Rea APRN General Surgery at [facility] Arrive at: Deck Lid Fitter Area [phone] Signed: Keon Roberson MD 11/29/2019 Primary [place] Physician: Huyen Ramon DO [address] [place] [address] [facility] [id number] documented in this encounter Discharge Instructions Patient InstructionsCoKeon bradshaw MD - 11/29/2019 10:31 AM EDT BARIATRIC SURGERY DISCHARGE INFORMATION BARIATRIC SUPPORT TEAM CONTACT NUMBERS (Mon-Fri 8am - 5pm): General Surgery and Bariatric Surgery [phone] Bariatric Surgeons: Doctors. Shaw [phone] Lamp Cleaner: [phone] Dietitians: [phone] Outside of regular business hours, including weekends and holidays: Ask for General Surgery resident electronic specialist [phone] Please note, this call will be answered [...] weeks at the General Surgery Outpatient Clinic (Deck Lid [facility] 4, [facility] Future Appointments Date Time Provider Department Center 12/15/2019 8:30 AM Rylie Rea APRN [facility] 03/30/2020 11:00 AM Rylie Rea APRN [facility] BATHING AND WOUND CARE: ?? You may [...] Follow up with primary care provider or environmental protection specialist in 1-2 weeks in order to [...] non tender, non distended Ext: wwp A/P: Monihsa Das is a 48 y.o. female who presents for planned laparoscopic luis antonio en Y gastric bypass. Will proceed with planned operation. Thomas Freire MD 11/28/2019 General Surgery [id number] documented in this encounter Miscellaneous Notes Plan of Care - Mayra Thrasher RN - 11/29/2019 4:59 AM EDT Problem: Patient Care Overview Goal: Plan of Care Review Outcome: Ongoing (Interventions Implemented as Appropriate) 11/29/19 2428 Coping/Psychosocial Plan Of Care Reviewed With patient Plan of Care Review Progress improving OUTCOME EVALUATION NOTE: OUTCOME SUMMARY: Pt presents to [facility] room 410A at 1950 s/p lap gastroplasty. [...] Garcia MD - 11/28/2019 4:22 PM EDT [facility] Operative Note Patient Name: Monisha Das : [id number] MR#: [id number] Case Date: 11/28/2019 Surgeon: Surgeon(s) and Role: [...] distal bowel was chosen to create the uylt-je-ybaw jejunojejunostomy. The duodenal, afferent limb was approximated [...] suture in two layers with a 30 [place] Bougie (blunt-tipped) in place. The Bougie was [...] TH Visit (TeleHealth) General Surgery Rylie Rea, OPTICAL ENGINEERING TECHNICIAN [facility] [place] [address] [facility] [place] [address] documented as of this encounter Goals Goal [...] (ABNORMAL) Differential, Automated (11/29/2019 3:47 AM EDT) [facility] gist Method Time Signature Neutrophils % 79.7 % [facility] Neutr Abs (ANC) 8.50 (H) 1.70 - [facility] 6.10 [facility] x10(3)/[facility] LABORATORY Lymphocytes % 14.4 % [facility] Lymphocytes Abs 1.5 0.9 - 3.2 [facility] x10(3)/[facility] LABORATORY Monocytes % 5.2 % [facility] Monocyte Abs 0.6 0.3 - 0.9 [facility] x10(3)/[facility] LABORATORY Eosinophils % 0.0 % [facility] Eosinophils Abs 0.0 0.0 - 0.4 [facility] x10(3)/[facility] LABORATORY Basophils % 0.2 % [facility] Basophils Abs 0.0 0.0 - 0.1 [facility] x10(3)/[facility] LABORATORY Immature Gran % 0.50 % [facility] Comment: Immature granulocytes(IG's)percentage an d absolute count will include metamyelocytes, myelocytes, and promyelo cytes. Blood smears from CBCs yielding IG's will be scanned manually for concor dance. If this scan disagrees with the automated IG or if promyelocytes are not ed, a manual differential will be performed. Alfreda Gran Abs 0.05 (H) 0.00 - 0.04 x10(3)/[facility] LABORATORY Specimen Anatomical Collection Method Collection Time Receive d Time (Source) Location / / Volume Laterality Blood specimen 11/29/2019 3:47 AM 020 4:16 (specimen) EDT AM EDT Resulting Agency Comment Spec In Lab Thomas Freire MD HEMATOLOGY ORDERABLES Performing Organization Address City/State/[place] [address] (ABNORMAL) Hemogram (11/29/2019 3:47 AM EDT) Analysis Performed At Patho logist Time Signature WBC 10.6 (H) 4.0 - 9.5 [facility] x10(3)/[facility] LABORATORY RBC 4.52 4.00 - [facility] 5.21 [facility] x10(6)/[facility] LABORATORY Hemoglobin 13.2 11.7 - [facility] 15.5 gm/dL [facility]OR[facility]ORY Hematocrit 38.8 35.7 - [facility] 45.8 % [facility] MCV 85.8 82.6 - [facility] 94.[address] [facility] LABORATORY MCH 29.2 27.1 - [facility] 32.[address] [facility] LABOR[facility]ORY MCHC 34.0 31.7 - MARY ANTHONY 35.0 gm/dL [facility] Platelets 323 145 - 357 [facility] x10(3)/[facility] LABORATORY RDWSD 41.8 37.0 - [facility] RAJ 46.0 [facility] LABORATORY RDWCV 13.3 11.5 - [facility] RAJ 14.1 % [facility] LABORATORY MPV 9.8 7.6 - 12.9 [facility] LABORATORY nRBC % Auto 0.0 % [facility] nRBC Abs Auto 0.000 0.000 - [facility] x10(3)/[facility] LABORATORY Specimen Anatomical Collection Method Collection Time Receive d Time (Source) Location / / Volume Laterality Blood specimen 11/29/2019 3:47 AM 020 4:16 (specimen) EDT AM EDT Resulting Agency Comment Spec In Lab Thomas Freire MD HEMATOLOGY ORDERABLES Performing Organization Address City/State/[place] [address] Basic Metabolic Panel (non-fasting) (11/29/2019 3:47 AM EDT) P athologist Signature Glucose Lvl 123 65 - 199 [facility] mg/dL [facility] Comment: Diabetes: >=200 mg/dL plus symp toms BUN 13 8 - 18 mg/dL [facility] Creatinine 0.80 0.70 - 1.20 mg/dL [facility] LABOR[facility]ORY Sodium 136 135 - 145 mmol/L [facility] Potassium 4.0 3.5 - 5.0 mmol/L [facility] Comment: Please note: ??Patients with WBC >100,00 0 may have falsely elevated Potassium levels. ??For accurate Potassium quantif ication in these patients send serum separator tube (gold top) for subsequent determinations. ??Contact the Clinical Chemistry Laboratory if there are any qu estions. Chloride 101 98 - 107 mmol/L [facility] CO2 23 22 - 31 mmol/L [facility] Anion Gap 12 5 - 15 mmol/L [facility] Calcium 9.1 8.5 - 10.5 mg/dL [facility] Estimated GFR 87 >=60 mL/min/1.73 m?? [facility] Comment: The eGFR was calculated using the CKD-EP I equation. As with all creatinine based estimates of kidney function, eGFR values calculated with the CKD-EPI equation are not accurate in patients wi th acute kidney failure, extremes of body mass or the acutely ill. http://[employer]/[facility] eGFR 100 >=60 mL/min/1.73 m?? [facility] Comment: The eGFR was calculated using the CKD-EP I equation. As with all creatinine based estimates of kidney function, eGFR values calculated with the CKD-EPI equation are not accurate in patients wi th acute kidney failure, extremes of body mass or the acutely ill. http://[employer]/[facility]OREnkf Specimen Anatomical Collection Method Collection Time Receive d Time (Source) Location / / Volume Laterality Blood specimen 11/29/2019 3:47 AM 020 4:16 (specimen) EDT AM EDT Resulting Agency Comment Spec In Lab Nusrat Garcia MD CHEMISTRY ORDERABLES Performing Organization Address City/State/ZIP Code Phon e Number [address] Phosphorus (11/29/2019 3:47 AM EDT) P athologist Signature Phosphorus 3.6 2.5 - 4.5 [facility] mg/dL [facility]OR[facility]ORY Specimen Anatomical Collection Method Collection Time Receive d Time (Source) Location / / Volume Laterality Blood specimen 11/29/2019 3:47 AM 020 4:16 (specimen) EDT AM EDT Resulting Agency Comment Spec In Lab Nusrat Garcia MD CHEMISTRY ORDERABLES Performing Organization Address City/[facility]/ZIP Code Phon e Number [address] Magnesium (11/29/2019 3:47 AM EDT) P athologist Signature Magnesium 0.72 0.69 - 1.07 [facility] mmol/L [facility] LABORATORY Specimen Anatomical Collection Method Collection Time Receive d Time (Source) Location / / Volume Laterality Blood specimen 11/29/2019 3:47 AM 020 4:16 (specimen) EDT AM EDT Resulting Agency Comment Spec In Lab Nusrat Garcia MD CHEMISTRY ORDERABLES Performing Organization Address City/[facility]/ZIP Code Phon e Number [address] POCT Glucose (11/28/2019 5:19 PM EDT) P athologist Signature POC Glucose 100 65 - 199 [facility] mg/dL [facility] Comment: Supplemental ranges: <140 mg/dL before meals <180 mg/dL all other times of the day Specimen Anatomical Collection Method Collection Time Receive d Time (Source) Location / / Volume Laterality Blood specimen 11/28/2019 5:19 PM 020 5:19 (specimen) EDT PM EDT Nusrat Garcia MD POINT OF CARE TEST ORDERABLE S Performing Organization Address City/[facility]/ZIP Code Phon e Number [address] POCT Glucose (11/28/2019 11:32 AM EDT) P athologist Signature POC Glucose 96 65 - 199 [facility] mg/dL [facility] Comment: Supplemental ranges: <140 mg/dL before meals <180 mg/dL all other times of the day Specimen Anatomical Collection Method Collection Time Receive d Time (Source) Location / / Volume Laterality Blood specimen 11/28/2019 11:32 0 (specimen) AM EDT 11:32 AM EDT Nusrat Garcia MD POINT OF CARE TEST ORDERABLE S Performing Organization Address City/[facility]/[place] [address] documented in this encounter [...] Provider: Mayra lara, LORELEI)[phone] (Stopped - Provider: Monisha Samuel RN) 100 [...] Routine documented in this encounter Care Teams Reeling Machine Setup Operator Relationship Specialty Start Date End Date Huyen Ramon DO PCP - General Family Medicine 04/05/18 [address] [place] [address] documented as of this encounter
--- OUTSIDE RECORDS SUMMARY | 2022-02-08 08:59 | XMS_ITS | Clinical Summary ---
:1970 Author Organization [facility] Address [facility] [place] [address] Care Team Providers Name Role Phone Tristen [...] General Surgery Rylie Rea, S/P bariatric surgery; METROPOLITAN EDITOR Post-resection malabsorption; Disorder of iro n metabolism [...] TH Visit (TeleHealth) General Surgery Rylie Rea, METROPOLITAN EDITOR [facility] [place] [address] Keiry Chatterjee, RD [facility] [place] [address] Health Maintenance Due Date Last Done Comments [...] ss Type Group [employer] [place] BC [id number] 2019-Presen [phone] [address] [facility] t 5 [facility] [phone] HEALTH PLANS HEALTH PLANS [id number] 2020-Presen [phone] [address] [employer] [address] t [address] [place] [address] Advance Directives Latest Code Status on File Code Status Date Activated Date Inactivated Comments Attempt Cardiopulmonary Resuscitation - 11/28/2019 4:36 PM 020 5:30 PM Inpatient Code Status decision made by: Patient Care Teams Agronomist Relationship Specialty Start Date End Date Huyen Ramon DO PCP - General Family Medicine 04/05/[address] [place], [place] [id number]
--- OUTSIDE RECORDS SUMMARY | 2022-02-08 08:59 | XMS_ITS | Encounter Summary ---
:1970 Author Organization [facility] [place] [address] Care Team Providers Name Role Phone Huyen [...] Ramon [facility] DO [address] [place] [phone] Referral ID Status Reason Start Date Expiration Date Visits V isits Requested Authorized [id number] Closed Consult, Test 10/25/2021 10/25/2022 6 6 & Treat PCP Updated and/or Approved Encounter Details Date Type Department Care Team Description 10/25/2021 Transcribe Orders eDH Incoming Tamera Ramon h istory of other diseases of circulatory system; Referrals Huyen Tucker DO History of hypersecretion of ovarian and rogens; [phone] [place] [address] Personal his tory of other endocrine, metabolic, and immunity disorders; RD Other specified personal risk factors, [place] [address] Social History Tobacco Use Types Packs/Day Years Used Date Never Smoker Smokeless Tobacco: Never Used Alcohol Use Standard Drinks/Week Comments No 0 (1 standard drink = 0.6 oz pure alcoho l) Sex Assigned at Date Recorded Not on file documented as of this encounter Plan of Treatment Upcoming Encounters Date Type Specialty Care Team Description 03/10/2022 TH Visit (TeleHealth) General Surgery Rylie Rea, EDITOR MAGAZINE [facility] [place] [place] [address] Keiry Chatterjee, RD [facility] [place] [address] Scheduled Referrals Name Type Priority Associated Diagnoses [...] On track No Ayala active ilia (08/29/2019 iLnda Arcos, goal 10:03 AM EDT) Note: Formatting [...] classified documented in this encounter Care Teams Forestry Workers Relationship Specialty Start Date End Date Huyen Ramon DO PCP - General Family Medicine 04/05/[address] [place] [address] documented as of this encounter
--- OUTSIDE RECORDS SUMMARY | 2022-02-08 08:59 | XMS_ITS | Encounter Summary ---
:1970 Author Organization [facility] Address [facility] [place] [address] Care Team Providers Name Role Phone Tristen Huyenjenna Tucker DO Primary Care Provider Encounter Details Date Type Department Care Team Description 11/22/2021 Orders Only General Surgery at Rylie Rea S/P bariatric surgery; [facility] M, FINISHING MACHINE OPERATOR Post-resection malabsorption; [facility] Dis order [place] [address] [place] [address] [phone] Social History Tobacco Use Types Packs/Day Years [...] Visit (TeleHealth) General Surgery Rylie Rea M, FINISHING MACHINE OPERATOR [facility] [place] [address] Keiry Chatterjee, RD [facility] [place] [address] Scheduled Orders Name Type Priority Associated Diagnoses [...] metabolism documented in this encounter Care Teams Expeller Operator Relationship Specialty Start Date End Date Huyen Ramon DO PCP - General Family Medicine 04/05/[address] [place] [address] documented as of this encounter
--- OUTSIDE RECORDS SUMMARY | 2022-02-08 08:59 | XMS_ITS | Encounter Summary ---
:1970 Author Organization [facility] Address [facility] [place] [address] Care Team Providers Name Role Phone Huyen Ramon DO Primary Care Provider Reason for Referral Consultation (Routine) - Closed Specialty Diagnoses / Procedures Referred By Contact Refer red To Contact Endocrinology Diagnoses S/P bariatric surgery Post-resection malabsorption Hypoglycemia Rylie Rea, [facility] Endocrinology 3b URGENT CARE TECHNICIAN [facility] [address] [facility] [place] [address] [place] [address] Referral ID Status Reason Start Date Expiration Date Visits V isits Requested Authorized [id number] Closed Consult, 04/04/2021 04/04/2022 1 1 Test & Treat Encounter Details Date Type Department Care Team Description 04/04/2021 Orders Only General Surgery at Rylie Rea S/P bariatric surgery; [facility] ENRIQUE Taylor Post-resection malabsorption; [facility] [address] [place], [place], [place] [phone] Social History Tobacco Use Types Packs/Day Years Used Date Never Smoker Smokeless Tobacco: Never Used Alcohol Use Standard Drinks/Week Comments No 0 (1 standard drink = 0.6 oz pure alcoho l) Sex Assigned at Date Recorded Not on file documented as of this encounter Plan of Treatment Upcoming Encounters Date Type Specialty Care Team Description 03/10/2022 TH Visit (TeleHealth) General Surgery Rylie Rea, URGENT CARE TECHNICIAN [facility] [place] [address] Keiry Chatterjee, RD [facility] [place] [address] Scheduled Referrals Name Type Priority Associated Order [...] unspecified documented in this encounter Care Teams Air Traffic Instructor Relationship Specialty Start Date End Date Huyen Ramon DO PCP - General Family Medicine 04/05/[address] [place] [address] documented as of this encounter
--- OUTSIDE RECORDS SUMMARY | 2022-02-08 08:59 | XMS_ITS | Encounter Summary ---
:1970 Author Organization [facility] [place] [address] Care Team Providers Name Role Phone Tristen Huyenjenna Tucker DO Primary Care Provider Encounter Details Date Type Department Care Team Description 04/13/2021 Telephone Endocrinology at [facility] C Jordyn Colon I [facility] [place] [address] Social History Tobacco Use Types Packs/Day [...] TH Visit (TeleHealth) General Surgery Rylie Rea, BACK OFFICE MEDICAL ASSISTANT [facility] [address] Keiry Chatterjee, RD [facility] [place] [address] documented as of this encounter Goals Goal [...] on filedocumented in this encounter Care Teams Shank Piece Tacker Relationship Specialty Start Date End Date Huyen Ramon DO PCP - General Family Medicine 04/05/[address] [place] [address] documented as of this encounter
--- OUTSIDE RECORDS SUMMARY | 2022-02-08 08:59 | XMS_ITS | Encounter Summary ---
:1970 Author Organization [place] [address] Care Team Providers Name Role Phone Huyen Ramon DO Primary Care Provider Encounter Details Date Type Department Care Team Description 03/24/2020 Telephone General Surgery at [facility] Rylie Rea, [facility] [place] [address] [facility] [phone] [place], [place] [address] (Wo rk) Social History Tobacco [...] Visit (TeleHealth) General Surgery Rylie Rea APRN [facility] [place] [address] [facility] [place] [address] documented as of this encounter Goals Goal [...] Other (Enter personal goal) Lifestyle No Linda Cia MD Note: Formatting of this note might [...] in this encounter Care Teams Church History Professor Relationship Specialty Start Date End Date Huyen Ramon DO PCP - General Family Medicine 04/05/[address] [place] [address] documented as of this encounter
--- OUTSIDE RECORDS SUMMARY | 2022-02-08 08:59 | XMS_ITS | Encounter Summary ---
:1970 Author Organization [facility] [place] [address] Care Team Providers Name Role Phone Huyen Ramon DO Primary Care Provider Encounter Details Date Type Department Care Team Description 12/05/2019 Telephone General Surgery at [facility] Keiry Chatterjee [place] [facility] [place] [address] GENERAL SURGERY [phone] [place], [place] [address] (Wo rk) Social History Tobacco [...] Visit (TeleHealth) General Surgery Rylie Rea, SENIOR STAFF SPECIALIZED EMPLOYMENT [facility] [place] [address] [facility] [place] [address] documented as of this encounter Goals Goal [...] on filedocumented in this encounter Care Teams System Development Engineer Relationship Specialty Start Date End Date Huyen Ramon DO PCP - General Family Medicine 04/05/[address] [place] [address] documented as of this encounter
--- OUTSIDE RECORDS SUMMARY | 2022-02-08 08:59 | XMS_ITS | Encounter Summary ---
:1970 Author Organization [facility] [place] [address] Care Team Providers Name Role Phone JohanaHuyen sharma Caitlin MOORE Primary Care Provider Reason for Visit Reason Comments Follow-up s/p nerissa surg 11/28/19 Encounter Details Date Type Department Care Team Description 12/15/2019 Office Visit General Surgery at Quintin Rea, ENRIQUE [facility] [place] [address] Class 3 severe obesity due to excess divina ories with serious comorbidity and body mass index (BMI) of 45.0 to 49.9 in adult; [facility] Keiry Chatterjee, RD [facility] [place] [address] Post-resection malabsorption; [facility] S/[place] [address] Social History Tobacco Use Types Packs/Day Years [...] this encounter Patient Instructions Patient InstructionsRylie Rea, LASER BEAM TRIM OPERATOR - 12/15/2019 8:30 AM EDT Bariatric Surgery Program First Post-operative Follow up visit Contact information: [facility] it support specialist: Yolanda: [phone] and Yadira [phone] Dietitians: [phone] Surgeons/ nurse practitioners: [phone] Nurse line: [phone] Next follow up visit: at 4 months [...] Blow dry area on low setting with communications department chair. 3. 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 4 months post-op Larned Body Weight (based on BMI of 25): [...] 12/15/2019 8:30 AM EDT [place] [address] Reason for visit: Bariatric Surgery Post Op [...] summary: Early none Late - Compliance with [facility] follow up: good Attndance at [facility] post-operative graduate support group meetings: none WT [...] formation and avoid NSAIDs. D ?? See accounts payable coordinator note re: recommendations regarding vitamin and mineral [...] patient's review via e-DH Rylie Rea APRN [facility] Bariatric Surgery Program RECOMMENDED BARIATRIC SURGERY PROGRAM [...] If labwork is done by the primary wild animal caretaker: please send a copy to the Bariatric Surgery Program, General Surgery Clinic, [facility], or fax [phone] documented in this encounter Plan of Treatment Upcoming Encounters Date Type Specialty Care Team Description 03/10/2022 TH Visit (TeleHealth) General Surgery Rylie Rea APRN [facility] [place] [address] Keiry Chatterjee, SAM [facility] [place] [address] documented as of this encounter Goals Goal [...] status documented in this encounter Care Teams Butter Maker Relationship Specialty Start Date End Date Huyen Ramon DO PCP - General Family Medicine 04/05/[address] [place] [address] documented as of this encounter
--- OUTSIDE RECORDS SUMMARY | 2022-02-08 09:00 | XMS_ITS | Encounter Summary ---
:1970 Author Organization [place] [address] Care Team Providers Name Role Phone Nicaayanna Huyen Caitlin MOORE Primary Care Provider Encounter Details Date Type Department Care Team Description 10/10/2019 Telephone General Surgery at [facility] [place]olanda [place] [facility] [place] [address] Social History Tobacco Use Types Packs/Day Years Used Date Never Smoker Smokeless Tobacco: Never Used Alcohol Use Standard Drinks/Week Comments No 0 (1 standard drink = 0.6 oz pure alcoho l) Sex Assigned at Date Recorded Not on file documented as of this encounter Miscellaneous Notes Telephone Encounter - Yolanda Corcoran - 10/10/2019 9:40 AM EDT Spoke with Izabella at [facility] and explained the case for Monisha, regarding [...] Visit (TeleHealth) General Surgery Rylie Rea, ENRIQUE [facility] [place] [address] [facility] [place] [address] documented as of this encounter Goals Goal [...] on filedocumented in this encounter Care Teams Assistant To The Dean Relationship Specialty Start Date End Date Huyen Ramon DO PCP - General Family Medicine 04/05/[address] [place] [address] documented as of this encounter
--- OUTSIDE RECORDS SUMMARY | 2022-02-08 09:00 | XMS_ITS | Encounter Summary ---
:1970 Author Organization [facility] [place] [address] Care Team Providers Name Role Phone Tristen Huyenjenna Tucker DO Primary Care Provider Encounter Details Date Type Department Care Team Description 08/29/2019 TH Visit Weight and Wellness Sandy Russo BMI 40.0-44.9 (TeleHealth) at [facility] SAM Gary kg/sq m [address] [facility] [address] [place] [address] Social History Tobacco Use Types Packs/Day Years [...] at the following address: [address] [place]) [place] Food Trackers: At [phone] on non-fasting days Activity: Has increased walking to 45 minutes, maybe 1 hour in 2 sessions: Never less than 5 days a week, someweeks every day Can actually run up the stairs, not getting winded at the beginning of her walk Weight Today: 265 today Vitals 08/29/2019 08/21/2019 08/11/2019 07/30/2019 Height ([place]) 64.488 65 64.488 Height (Metric) 163.8 cm 165.1 cm 163.8 cm Weight ([place]) 265 lbs 264 lbs 5 oz 263 lbs 266 lbs Weight (Metric) 120.203 kg 119.886 kg 119.296 kg 120.657 kg BMI (Calculated) 44.8 kg/m2 43.76 kg/m2 44.97 kg/m2 Vitals 07/23/2019 Height ([place]) Height (Metric) Weight ([place]) 268 lbs Weight (Metric) 121.564 kg BMI [...] full account, see previous notes from this typewriter assembly and parts inspector and initial visit encounter with Weight and Wellness provider Appetite/Hunger: Has been doing a 24-hour fast twice a week. Takes very little food to fill her up when she does go to eat in the evening Typical Dietary Intake: Coffee with 2 tbsp sweet creamer (Chobani) B: turkmen muffin around 10am (sprouted grain, 1.5 Tbsp [...] you or a water bottle that can hookman to your fitbit or lines with the [...] TH Visit (TeleHealth) General Surgery Rylie Rea, MOID MIDDLE SCHOOL TEACHER [facility] [place] [address] [facility] [place] [address] documented as of this encounter Goals Goal [...] adult documented in this encounter Care Teams Telephone Operator Receptionist Relationship Specialty Start Date End Date Huyen Ramon DO PCP - General Family Medicine 04/05/[address] [place] [address] documented as of this encounter
--- OUTSIDE RECORDS SUMMARY | 2022-02-08 09:00 | XMS_ITS | Encounter Summary ---
:1970 Author Organization [place] [address] Care Team Providers Name Role Phone NicaHuyen urena Primary Care Provider Encounter Details Date Type Department Care Team Description 10/14/2019 Telephone Weight and Wellness at [place] RN [address] [address] Social History Tobacco Use Types Packs/Day Years [...] TH Visit (TeleHealth) General Surgery Rylie Rea, SPRINKLER DRIVER [facility] [place] [address] Keiry Chatterjee, RD [facility] [place] [address] documented as of this encounter Goals Goal [...] Name Priority Date/Time Associated Diagnosis Comme nts [facility] EXTERNAL RESULT Routine 10/01/2019 Results for this [...] 10/01/2019 (specimen) Historical Provider HEMATOLOGY ORDERABLES (ABNORMAL) [facility] External Results (10/01/2019) athologist Signature Chol, Total [...] on filedocumented in this encounter Care Teams Fleshing Machine Operator Relationship Specialty Start Date End Date Huyen Ramon DO PCP - General Family Medicine 04/05/[address] [place] [address] documented as of this encounter
--- OUTSIDE RECORDS SUMMARY | 2022-02-08 09:00 | XMS_ITS | Encounter Summary ---
:1970 Author Organization [facility] [place] [address] Care Team Providers Name Role Phone Huyen Ramon Primary Care Provider Encounter Details Date Type Department Care Team Description 08/23/2019 Notes Only Weight and Wellness at Linda Cai MD [facility] [address] [facility] [place] [address] [place] [address] [phone] (Wo rk) Social History Tobacco Use Types [...] Description 03/10/2022 TH Visit (TeleHealth) General Surgery Rylei Rea, KEYPUNCH OPERATOR [facility] [place] [address] Keiry Chatterjee, RD [facility] [place] [address] documented as of this encounter Goals Goal [...] on filedocumented in this encounter Care Teams Auxiliary Equipment Tender Relationship Specialty Start Date End Date Huyen Ramon DO PCP - General Family Medicine 04/05/18 [address] [place] [address] documented as of this encounter
--- OUTSIDE RECORDS SUMMARY | 2022-02-08 09:00 | XMS_ITS | Encounter Summary ---
:1970 Author Organization [facility] [place] [address] Care Team Providers Name Role Phone Huyen Ramon DO Primary Care Provider Encounter Details Date Type Department Care Team Description 11/30/2018 Telephone Cardiology at [facility] [place] [address] CARDIOLOGY DEPT [phone] [place], [place] [address] (Wo rk) Social History Tobacco [...] 11/30/2018 Referring Provider: Dr. Haley Patient Location: [facility] Monisha Das is a 47 y.o. female [...] TH Visit (TeleHealth) General Surgery Rylie Rea, LEAD JAVA SOFTWARE ENGINEER [facility] [place] [address] [facility] [place] [address] documented as of this encounter Visit Diagnoses Not on filedocumented in this encounter Care Teams Calibration Specialist Relationship Specialty Start Date End Date Huyen Ramon DO PCP - General Family Medicine 04/05/[address] [place] [address] documented as of this encounter
--- OUTSIDE RECORDS SUMMARY | 2022-02-08 09:00 | XMS_ITS | Encounter Summary ---
:1970 Author Organization [facility] [place] [address] Care Team Providers Name Role Phone Huyen Ramon Primary Care Provider Encounter Details Date Type Department Care Team Description 07/25/2019 External Results [facility] [address] [place] [address] Social History Tobacco Use Types Packs/Day Years [...] TH Visit (TeleHealth) General Surgery Rylie Rea, HOUSE DECORATOR [facility] [address] Keiry Chatterjee, RD [facility] [place] [address] documented as of this encounter Goals Goal [...] Name Priority Date/Time Associated Diagnosis Comme nts [facility] EXTERNAL RESULT Routine 07/18/2019 Results for this PANEL procedure are i n the results section . [facility] EXTERNAL RESULT Routine 07/09/2019 Results for this PANEL procedure are i n the results section . [facility] EXTERNAL RESULT Routine 07/03/2019 Results for this PANEL procedure are i n the results section . [facility] EXTERNAL RESULT Routine 06/24/2019 Results for this PANEL procedure are i n the results section . [facility] EXTERNAL RESULT Routine 06/23/2019 Results for this PANEL procedure are i n the results section . FERRITIN Routine 06/23/2019 Results for thi s procedure are i n the results section . [facility] EXTERNAL RESULT Routine 06/16/2019 Results for this PANEL procedure are i n the results section . [facility] EXTERNAL RESULT Routine 06/12/2019 Results for this PANEL procedure are i n the results section . [facility] EXTERNAL RESULT Routine 06/12/2019 Results for this PANEL procedure are i n the results section . [facility] EXTERNAL RESULT Routine 06/10/2019 Results for this PANEL procedure are i n the results section . [facility] EXTERNAL RESULT Routine 06/10/2019 Results for this PANEL procedure are i n the results section . [facility] EXTERNAL RESULT Routine 06/05/2019 Results for this [...] . documented in this encounter Results (ABNORMAL) [facility] External Results (07/18/2019) Analysis Performed At [facility] Time Signature Glucose 157 (ExtH) Fasting [...] POINT OF CARE TEST ORDERABLE S (ABNORMAL) [facility] External Results (07/09/2019) Analysis Performed At [facility] logis Time Signature Glucose 144 (ExtH) Fasting Comment: 74-106 BUN 19 (ExtH) Comment: 7-18 Creatinine 0.91 Sodium 138 Potassium 3.5 Chloride 101 CO2 29 Anion Gap 8 Calcium 9.3 Magnesium 1.8 mg/dL Specimen (Source) Anatomical Location Collection Method / Collectio n Time Received Time / Laterality Volume 07/09/2019 Historical Provider POINT OF CARE TEST ORDERABLE S (ABNORMAL) [facility] External Results (07/03/2019) Analysis Performed At [facility] Signature Glucose 141 (ExtL) Fasting Comment: 74-106 BUN 18 Creatinine 0.97 Sodium 138 Potassium 3.4 (ExtL) Comment: 3.5-5.1 Chloride 100 CO2 31 Anion Gap 7 Calcium 8.9 Magnesium 1.8 mg/dL Specimen (Source) Anatomical Location Collection Method / Collectio n Time Received Time / Laterality Volume 07/03/2019 Historical Provider MD POINT OF CARE TEST ORDERABLE S (ABNORMAL) [facility] External Results (06/24/2019) Analysis Performed At [facility] Signature Glucose 140 (ExtH) Fasting Comment: 74-106 [...] 06/23/2019 (specimen) Historical Provider CHEMISTRY ORDERABLES (ABNORMAL) [facility] External Results (06/23/2019) Analysis Performed At [facility] Signature Glucose 171 (ExtH) Fasting Comment: 74-106 BUN 18 Creatinine 0.9 Sodium 138 Potassium 3.0 Chloride 102 CO2 25 Anion Gap 11 Calcium 8.8 Magnesium 1.5 (ExtL) mg/dL Comment: 1.8-2.4 Specimen (Source) Anatomical Location Collection Method / Collectio n Time Received Time / Laterality Volume 06/23/2019 Historical Provider POINT OF CARE TEST ORDERABLE S (ABNORMAL) [facility] External Results (06/16/2019) Analysis Performed At [facility] Signature Glucose 115 (ExtH) Fasting Comment: 74-106 BUN 19 (ExtH) Comment: 7-18 Creatinine 0.96 Sodium 140 Potassium 3.8 Chloride 102 CO2 29 Anion Gap 9 Calcium 9.0 Magnesium 1.7 mg/dL Comment: 1.8-2.4 Specimen (Source) Anatomical Location Collection Method / Collectio n Time Received Time / Laterality Volume 06/16/2019 Historical Provider MD POINT OF CARE TEST ORDERABLE S (ABNORMAL) [facility] External Results (06/12/2019) Analysis Performed At [facility] Time Signature Glucose 122 (ExtH) Fasting Comment: 74-106 BUN 25 (ExtH) Comment: 7-18 Creatinine 0.92 Sodium 138 Potassium 3.4 (ExtL) Comment: 3.5-5.1 Chloride 101 CO2 28 Anion Gap 9 Magnesium 1.6 (ExtL) mg/dL Comment: 1.8-2.4 Specimen (Source) Anatomical Location Collection Method / Collectio n Time Received Time / Laterality Volume 06/12/2019 Historical Provider POINT OF CARE TEST ORDERABLE S (ABNORMAL) [facility] External Results (06/12/2019) Analysis Performed At [facility] Time Signature Glucose 122 (ExtH) Fasting Comment: 74-106 BUN 25 (ExtH) Comment: 7-18 Creatinine 0.92 Sodium 138 Potassium 3.4 (ExtL) Comment: 3.5-5.1 Chloride 101 CO2 28 Anion Gap 9 Magnesium 1.6 (ExtL) mg/dL Comment: 1.8-2.4 Specimen (Source) Anatomical Location Collection Method / Collectio n Time Received Time / Laterality Volume 06/12/2019 Historical Provider POINT OF CARE TEST ORDERABLE S (ABNORMAL) [facility] External Results (06/10/2019) Analysis Performed At [facility] Time Signature Glucose 133 (ExtH) Fasting Comment: 74-106 BUN 18 Creatinine 1.0 Sodium 140 Potassium 3.2 (ExtL) Comment: 3.5-5.1 Chloride 100 CO2 32 Anion Gap 8 Calcium 9.0 Magnesium 1.7 (ExtL) mg/dL Comment: 1.8-2.4 Specimen (Source) Anatomical Location Collection Method / Collectio n Time Received Time / Laterality Volume 06/10/2019 Historical Provider POINT OF CARE TEST ORDERABLE S (ABNORMAL) [facility] External Results (06/10/2019) Analysis Performed At [facility] Signature Glucose 133 (ExtH) Fasting Comment: 74-106 BUN 18 (ExtH) Comment: 7-18 Creatinine 1.0 Sodium 140 Potassium 3.2 (ExtL) Comment: 3.5-5.1 Chloride 100 CO2 32 Anion Gap 8 Calcium 1.7 (ExtL) Comment: 1.8-2.4 Specimen (Source) Anatomical Location Collection Method / Collectio n Time Received Time / Laterality Volume 06/10/2019 Historical Provider POINT OF CARE TEST ORDERABLE S (ABNORMAL) [facility] External Results (06/05/2019) Analysis Performed At [facility] Signature Glucose 132 (ExtH) Fasting Comment: 74-106 BUN 19 (ExtH) Comment: 7-18 Creatinine 0.97 Sodium 139 Potassium 3.4 (ExtL) Comment: 3.5-5.1 Chloride 101 CO2 26 Anion Gap 12 (ExtH) Comment: 3-11 Calcium 8.9 Magnesium 1.8 mg/dL Specimen (Source) Anatomical Location Collection Method / Collectio n Time Received Time / Laterality Volume 06/05/2019 Historical Provider POINT OF CARE TEST ORDERABLE S (ABNORMAL) [facility] External Results (06/05/2019) Analysis Performed At [facility] Signature Glucose 132 (ExtH) Fasting Comment: 74-106 [...] on filedocumented in this encounter Care Teams Bias Cutting Machine Operator Relationship Specialty Start Date End Date Huyen Ramon DO PCP - General Family Medicine 04/05/[address] [place] [address] documented as of this encounter
--- OUTSIDE RECORDS SUMMARY | 2022-02-08 09:00 | XMS_ITS | Encounter Summary ---
:1970 Author Organization [facility] [place] [address] Care Team Providers Name Role Phone TristenStefanijenna Tucker DO Primary Care Provider Reason for Visit Auth/Cert Specialty Diagnoses / Procedures Referred By Contact Refer red To Contact Diagnoses Morbid obesity MORBID OBESITY Procedures PRO LAP GASTRIC BYPASS/LUIS ANTONIO-EN-Y @LAPAROSCOPIC GASTROPLASTY W/ LUIS ANTONIO-EN-Y CONSTRUCTION (WRVU 29.4) Referral ID Status Reason Start Date Expiration Date Visits Requ ested Visits Authorized [id number] 1 1 Encounter Details Date Type Department Care Team Description 11/25/[address] [place] [place] [address] Social History Tobacco Use Types Packs/Day [...] TH Visit (TeleHealth) General Surgery Rylie Rea, CONSTRUCTION SUPERVISOR/[facility] [place] [address] Keiry Chatterjee, RD [facility] [place] [address] documented as of this encounter Goals Goal [...] on filedocumented in this encounter Care Teams Automotive Product Engineer Relationship Specialty Start Date End Date Huyen Ramon DO PCP - General Family Medicine 04/05/[address] [place] [address] documented as of this encounter
--- OUTSIDE RECORDS SUMMARY | 2022-02-08 09:00 | XMS_ITS | Encounter Summary ---
:1970 Author Organization [facility] [place] [address] Care Team Providers Name Role Phone Johanazachary Huyenjenna Tucker DO Primary Care Provider Encounter Details Date Type Department Care Team Description 06/06/2019 Notes Only Auditorium E [place] [address] Social History Tobacco Use Types Packs/Day [...] Visit (TeleHealth) General Surgery Rylie Rea, MEDIA MARKETING DIRECTOR [place] [address] Keiry Chatterjee, RD [facility] [place] [address] documented as of this encounter Visit Diagnoses Not on filedocumented in this encounter Care Teams Banana Ripening Room Supervisor Relationship Specialty Start Date End Date Huyen Ramon DO PCP - General Family Medicine 04/05/[address] [place] [address] documented as of this encounter
--- OUTSIDE RECORDS SUMMARY | 2022-02-08 09:00 | XMS_ITS | Encounter Summary ---
:1970 Author Organization [facility] [place] [address] Care Team Providers Name Role Phone Huyen Ramon Primary Care Provider Encounter Details Date Type Department Care Team Description 10/06/2019 External Results [facility] [address] [place] [address] Social History Tobacco Use Types Packs/Day [...] TH Visit (TeleHealth) General Surgery Rylie Rea, DISTRICT RESOURCE OFFICER [facility] [place] [address] Keiry Chatterjee, RD [facility] [place] [address] documented as of this encounter Goals Goal [...] on filedocumented in this encounter Care Teams Weather Forcaster Relationship Specialty Start Date End Date Huyen Ramon DO PCP - General Family Medicine 04/05/[address] [place] [address] documented as of this encounter
--- OUTSIDE RECORDS SUMMARY | 2022-02-08 09:00 | XMS_ITS | Encounter Summary ---
:1970 Author Organization [facility] [place] [address] Care Team Providers Name Role Phone JohanaStefani sharmajenna Tucker DO Primary Care Provider Encounter Details Date Type Department Care Team Description 08/21/2019 TH Visit Weight and Wellness Linda Cai Class 3 severe obesity due to excess calories with serious comorbidity and body mass index (BMI) of 45.0 to 49.9 in adult (Primary Dx); (TeleHealth) at [facility] MD Isrrael Sustained ventricular tachycardia [address] [place], [place] CENTER [address] [facility] [phone] PRIMARY CARE [place], [place] [address] Social History Tobacco Use Types [...] Cai MD - 08/21/2019 9:30 AM EDT [facility] Visit Patient Name: Monisha Das Date of : 1970 Age: 48 y.o. Huyen Ramon DO Thank you for referring Monisha Das to the [facility] for consultation regarding obesity. [...] 08/15/2018 CHIEF COMPLAINT: Follow-up for Obesity Pathway: [facility] PATHWAY - ADULT 07/23/2019 Bariatric Surgery [...] had flash pulmonary edema, was seen at [facility]. Got IV lasix and bipap.Had [...] once per week for RLS. DM: Last DYER!C 6.8. Plan at first visit: Goals: Start [...] Calorie goal 1600. telehealth visit with health voice coach Naseem Wild on 07.30. Reviewed. Goals ??? beverage practice - begin eating and drinking by full 30 minutes - sipping vs. Gulping - aim for 64 ounces (maybe try an chani or something to alert you or a water bottle that can poker supervisor to your fitbit or lines with [...] reports: Things are Going well. Met with supervisor brake repair. Had a good visti.Fasting 2 days per [...] 100 divina tortilla. 1/2 cup salsa. From [place] pre-visit call: Date: 08/20/2019 [x]? Weight 265.8 [x]? Height 5 5 pt reported []? Blood pressure []? Pulse [x]? Asked about any recent labs/studies []? No [x]? Yes: [place], [place] []? Labs/vitals requested []? Labs/vitals sent for scanning (special education secretary) and entry (RN) [x]? Requested 24 hour diet recall -------- [x]? Reminded to sign up for [facility] [x]? Reminded to complete [facility] survey if message received to do [...] stress reduction: ?? [x]?A []?B []?C []ctivity: [facility] Initial Responses 08/19/2019 URICA - Readiness [...] TFEQ-Emotional Eating 0 Food Insecurity Score 2 [place] Category I Result - [place] Category II Result - [place] Category III - [place] Sleep Apnea Total - Schooling - Importance [...] above. ?? Will see Sandy 5.29. Asked special education secretary to put pt on wait list [...] 20 minutes of which were spent in hweo-lu-vmlh discussion/counseling re obesity, nutrition and activity as [...] TH Visit (TeleHealth) General Surgery Rylie Rea, FLOCCULATOR OPERATOR [facility] [place] [address] Keiry Chatterjee, RD [facility] [place] [address] documented as of this encounter Goals Goal [...] tachycardia documented in this encounter Care Teams Fertilizer Applicator Relationship Specialty Start Date End Date Huyen Ramon DO PCP - General Family Medicine 04/05/[address] [place] [place] [address] documented as of this encounter
--- OUTSIDE RECORDS SUMMARY | 2022-02-08 09:00 | XMS_ITS | Encounter Summary ---
:1970 Author Organization [facility] [place] [address] Care Team Providers Name Role Phone Huyen Ramon Primary Care Provider Encounter Details Date Type Department Care Team Description 08/21/2019 External Results [facility] [address] [place] [address] Social History Tobacco Use Types Packs/Day [...] TH Visit (TeleHealth) General Surgery Rylie Rea, MARINE FUEL DOCK ATTENDANT [facility] [place] [address] Keiry Chatterjee, RD [facility] [address] [place] [address] documented as of this encounter Goals Goal [...] Procedure Name Priority Date/Time Associated Diagnosis Comme [facility] EXTERNAL RESULT Routine 08/20/2019 Results for this PANEL procedure are i n the results section . documented in this encounter Results (ABNORMAL) [facility] External Results (08/20/2019) Analysis Performed At Patho [...] on filedocumented in this encounter Care Teams Marble Polisher Hand Relationship Specialty Start Date End Date Huyen Ramon DO PCP - General Family Medicine 04/05/[address] [place] [address] documented as of this encounter
--- OUTSIDE RECORDS SUMMARY | 2022-02-08 09:00 | XMS_ITS | Encounter Summary ---
:1970 Author Organization [facility] [place] [address] Care Team Providers Name Role Phone NicaHuyen urena Primary Care Provider Encounter Details Date Type Department Care Team Description 11/25/[address] [place] [address] Social History Tobacco Use Types Packs/Day [...] Visit (TeleHealth) General Surgery Rylie Rea M, REGIONAL OPERATIONS DIRECTOR [place] [address] Keiry Chatterjee, RD [facility] [place] [place] [address] documented as of this encounter Goals Goal [...] Results COVID-19 PCR (11/25/2019 2:00 PM EDT) [facility] Method Time Signature SARS-CoV-2 Not Detected Not Detected ROSETTE GUIDRY [facility] Comment: This result should [...] of CO VID-19 is performed using the [employer] RealTime SARS-CoV-2 as authorized by the FDA Emergency Use Authorization (EUA). This EUA assay is intended for In-vitro Diagnostic (IVD) use with respiratory specimens such as nasopharyngeal swabs c ollected from individuals during the acute phase of infection. This assay is performed based on the instructions for use provided by the [employer] and additional guidance provided by CDC and FDA. Testing is performed in the [facility] [employer] within the Department of Path ology and Laboratory Medicine at [facility], cert ified under the Clinical Laboratory Improvement [...] clinical management guidance information are available at [facility] Coronavirus Disease 2019 (COVID-19) webpage under Information fo r Healthcare Professionals (https://www.cdc.gov/coronavirus/2019-nc ov/hcp/index.html) Additional information about this and ot her EUA tests can be found in provider and patient fact sheets at the following FDA website: https://www.fda.gov/medical-devices/uomuwbdud-qsdpnnewzq-qpytsgf-devices/emergen ba-pel-tpnkkcmqtyippu#vpjeu32vrj SARS-Cov-[address] CUTTER Swab [facility] Specimen (Source) Anatomical Collection Method Collection Time Re ceived Time Location / / Volume Laterality Nasopharyngeal swab 11/25/2019 2:00 11/24 (specimen) PM EDT 2:00 PM EDT Comment: Symptoms->Asymptomatic Resulting Agency Comment Spec In Lab Nusrat Garcia MD MICROBIOLOGY - GENERAL ORDER DAVIAN Performing Organization Address City/State/[place] [address] documented in this encounter Visit Diagnoses Diagnosis COVID-19 documented in this encounter Care Teams Lbd Teacher Relationship Specialty Start Date End Date Huyen Ramon DO PCP - General Family Medicine 04/05/[address] [place] [address] documented as of this encounter
--- OUTSIDE RECORDS SUMMARY | 2022-02-08 09:00 | XMS_ITS | Encounter Summary ---
:1970 Author Organization [facility] [place] [address] Care Team Providers Name Role Phone Huyen Ramon DO Primary Care Provider Encounter Details Date Type Department Care Team Description 05/30/2019 Ancillary Procedure Radiology Library at Pricila Ramon [facility], DO [facility] [address] [place] [phone] (Wo rk) Social History Tobacco Use Types [...] TH Visit (TeleHealth) General Surgery Rylie Rea, APPLICATIONS ANALYST [facility] [place] [address] Keiry Chatterjee, RD [facility] [place] [address] documented as of this encounter Procedures Procedure [...] Time Received Time / Laterality Volume Narrative [facility] - 07/01/2019 3:46 PM EDT This exam is auto-finalizing. It's purpo se is for storage only. Huyen Ramon DO IM FILM LIBRARY ORDERABLES Performing Organization Address City/State/ZIP Code Phon e Number [place], [place] documented in this encounter Visit Diagnoses Not on filedocumented in this encounter Care Teams Service Station Helper Relationship Specialty Start Date End Date Huyen Ramon DO PCP - General Family Medicine 04/05/[address] [place] [address] documented as of this encounter
--- OUTSIDE RECORDS SUMMARY | 2022-02-08 09:00 | XMS_ITS | Encounter Summary ---
:1970 Author Organization [place] [address] Care Team Providers Name Role Phone Tristen Huyenjenna Tucker DO Primary Care Provider Encounter Details Date Type Department Care Team Description 07/28/2019 Telephone Weight and Wellness at [facility], [facility] [address] [place] [address] Social History Tobacco Use Types Packs/Day Years [...] Weight and Wellness Weight and Wellness Clinic [facility] [address] [place] [address] [facility]: [facility] Patient: Monisha Das Patient : 1970 Insurance Company: Payor: [employer] [facility] / Plan: [facility] OPEN ACCESS / Product Type: *No Product type* / Sent via: EMAIL Davis: [id number] Physician: LINDA BETANCUR MD Medication Requested: RYBELSUS Strength: 3MG TABLETS Frequency/Sig: TAKE 3MG BY MOUTH DAILY Disp: 30 Refills: 0 Currently taking: NO Diagnosis for this medication: ICD-10 code: E11.9 Thank you, [facility] RN 07/28/2019 12:02 PM Medication Prior Authorization for Weight and Wellness Weight and Wellness Clinic [facility] [address] [place] [address] DENIED: No reason given. Case/Reference #: [id number] Thank you, [facility] Snyder RN 08/01/2019 11:16 AM documented in this encounter Plan of Treatment Upcoming Encounters Date Type Specialty Care Team Description 03/10/2022 TH Visit (TeleHealth) General Surgery Rylie Rea, ENRIQUE [facility] [place] [address] [facility] [place] [address] documented as of this encounter Goals Goal [...] on filedocumented in this encounter Care Teams Interventional Tech Relationship Specialty Start Date End Date Huyen Ramon DO PCP - General Family Medicine 04/05/[address] [place] [address] documented as of this encounter
--- OUTSIDE RECORDS SUMMARY | 2022-02-08 09:00 | XMS_ITS | Encounter Summary ---
:1970 Author Organization [facility] [place] [address] Care Team Providers Name Role Phone Huyen Ramon DO Primary Care Provider Reason for Visit Consultation (Routine) - Specialty Diagnoses / Procedures Referred By Contact Refer red To Contact Behavioral Health / Diagnoses Obesity, unspecified morbid obesity Sara Dey, Htr Weight Wellness Weight and Wellness Procedures pre-bariatric counseling diet and psych counseling for bariatric surgery patient has BCBS [place] - 6 mo. diet counseling is required per insurance guidelines OCCUPATIONAL HEALTH RN [address] [place] [address] [place] [address] Referral ID Status Reason Start Date Expiration Date Visits V isits Requested Authorized [id number] Consult, 06/16/2019 06/15/2020 1 1 Test & Treat Encounter Details Date Type Department Care Team Description 07/23/2019 TH Visit Weight and Wellness Linda Cai Class 3 severe obesity due to excess calories with serious comorbidity and body mass index (BMI) of 45.0 to 49.9 in adult; (TeleHealth) at [facility] MD Isrrael History of surgical procedure [address] [place], [place] [address] [facility] [phone] PRIMARY CARE [place], [place] [address] Social History Tobacco Use Types [...] AM EDT Intake appointment with our health head men's golf coach and dietitian to be scheduled. See me in about a month. ( ) I recommend that you attend bariatric info session ( x) you have already attended a bariatric info session You are pursuing bariatric surgery pathway. For patients pursuing bariatric surgery, the first psychologist visit is done after 2 sports book writer visits. There is also a group called [...] have questions or concerns please send a [employer] beauty supply message or call the office. I am [...] refill. Lab work: I will ask our bookbinder apprentice to try to get recent labs from [...] Mindful Diet by Shauna Truong and the [facility] group. Emotional eating: End Emotional [...] bariatric surgery Monisha Das presents to the [facility] for a consultative visit regarding obesity management. The patient has WHO ClassObesity defined by a BMI of over 40. In addition, Monisha Das has co-morbidities associated with obesity including established obesity-related chronic disease including hypertension, type 2 diabetes, reflux esophagitis , hypertension, depression, migraines, edema. Patient says: In December had flash pulmonary edema, was seen at [facility]. Got IV lasix and [...] ?? Obesity is a chronic disease requiring custodial management. ?? Obesity is associated with increased [...] our Healthy Lifestyles Program. We are a [facility] approved center as a Diabetes Prevention Program, [...] Lipid risk assessment: The ASCVD Risk score (Larrabee DC Jr., et al., 2013) failed to calculate for the following reasons: Cannot find a previous HDL lab Cannot find a previous total cholesterol lab Mental Health: She reports depression is well controlled. CHIEF COMPLAINT: Management of excess weight HISTORY OF PRESENT ILLNESS: Monisha Das is a 48 y.o. female with obesity presents for intensive behavior modifications ofobesity and co-morbid conditions at [facility]. Wants to pursue bariatric surgery. 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 I reviewed the online survey which she [...] so would not expect to be losing. [facility] Initial Responses 07/22/2019 URICA - Readiness Score [...] TFEQ-Emotional Eating 0 Food Insecurity Score 2 [place] Category I Result 0 [place] Category II Result 0 [place] Category III 1 (Positive) [place] Sleep Apnea Total 1 (Low Risk) Schooling [...] Followed a special diet (ex: Dr. Andrews, [facility], [facility]) Wearing tracking devices helped [...] sugar, and usually puts honey on an Bahamian muffin. This AM had light eng muffin; [...] generally good. Lower than 5 years ago. SKETCHER/Neurological: Migraine DYER, seizures, stroke or TIA HEENT: Changes in vision, history of glaucoma, Gets regular eye exams. CV: See HPI regarding question of sustained [place] during hypokalemia episode and episode of flash pulmonary edema with normal cardiac work-up per patient. History of [place], previous PCI/ PTCA, cardiac surgery, Previous stress [...] had flash pulmonary edema, was seen at [facility]. Got IV lasix and bipap. Had cardiac [...] kidney stones Incidental finding., hematuria, stress incontinence. 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 Had endometrial ablations, still has early childhood services coordinator mense, irregularly. 3 pregnancies, 4 live births [...] and updated in eD. Grew up in [place], [place]. Went to [employer]. After college moved back to [place]. Then moved [facility] 2001 to [facility]. Kids are healthy, twins 24;18, 14. Jayne [...] 60 minutes of which were spent in [id number] discussion/counseling described above re obesity, nutrition and activity as well as obesity related co-morbidities, treatment options were discussed including intensive lifestyle intervention, pharmacotherapy and bariatric surgery with risks and advantages outlined for each. documented in this encounter Plan of Treatment Upcoming Encounters Date Type Specialty Care Team Description 03/10/2022 TH Visit (TeleHealth) General Surgery Rylie Rea, OCCUPATIONAL HEALTH RN [facility] [place] [address] Keiry Chatterjee, RD [facility] [place] [address] documented as of this encounter Goals Goal [...] status documented in this encounter Care Teams Campus Executive Director Relationship Specialty Start Date End Date Huyen Ramon DO PCP - General Family Medicine 04/05/[address] [place] [address] documented as of this encounter
--- OUTSIDE RECORDS SUMMARY | 2022-02-08 09:00 | XMS_ITS | Encounter Summary ---
:1970 Author Organization [facility] [address] Care Team Providers Name Role Phone Tristen Huyenjenna Tucker DO Primary Care Provider Encounter Details Date Type Department Care Team Description 07/25/2019 Telephone Weight and Wellness at [facility] Izabela Hall [address] [place] [address] Social History Tobacco Use Types Packs/Day [...] TH Visit (TeleHealth) General Surgery Rylie Rea, DISPLAY DIRECTOR [facility] [place] [address] Keiry Chatterjee, RD [facility] [place] [address] documented as of this encounter Goals Goal [...] on filedocumented in this encounter Care Teams Tile Classifier Relationship Specialty Start Date End Date Huyen Ramon DO PCP - General Family Medicine 04/05/[address] [place] [address] documented as of this encounter
--- OUTSIDE RECORDS SUMMARY | 2022-02-08 09:00 | XMS_ITS | Encounter Summary ---
:1970 Author Organization [facility] Address [address] [facility] [place] [address] Care Team Providers Name Role Phone Huyen Ramon DO Primary Care Provider Encounter Details Date Type Department Care Team Description 09/25/2019 TH Visit Weight and Wellness Cinda Rodriguez, Tasia ss 3 severe (TeleHealth) at [facility] PhD obesity due to excess [address] [facility] with serious [place], [place] [address] comorbidity and body [address] [place] [address] mass index (BMI) of [phone] 45.0 to 49.9 in adult (Work) Social [...] N [facility] WEIGHT AND WELLNESS AT [facility] [address] [facility] [address] Dept: [phone] 09/25/2019 10:53 AM Monisha Das is a [...] Monisha prefers: gastricbypass Number of visits with glass novelty maker: 2+ WEIGHT Initial Weight: 268lbs Current Weight [...] graduate Education history: none 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 [employer] Legal problems: none PROBLEM EATING BEHAVIORS History [...] longer, be more active, REALISTIC POSTSURGICAL GOALS/EXPECTATIONS [place] body weight (based on a BMI of [...] TH Visit (TeleHealth) General Surgery Rylie Rea, DRAFTER ELECTRICAL [place] [address] Keiry Chatterjee, RD [facility] [place] [address] documented as of this encounter Goals Goal [...] adult documented in this encounter Care Teams Hydraulic Blocker Relationship Specialty Start Date End Date Huyen Ramon DO PCP - General Family Medicine 04/05/[address] [place] [address] documented as of this encounter
--- OUTSIDE RECORDS SUMMARY | 2022-02-08 09:00 | XMS_ITS | Encounter Summary ---
:1970 Author Organization [facility] [place] [address] Care Team Providers Name Role Phone Huyen Ramon Primary Care Provider Encounter Details Date Type Department Care Team Description 08/22/2019 External Results [facility] [address] [place] [address] Social History Tobacco Use Types Packs/Day [...] TH Visit (TeleHealth) General Surgery Rylie Rea, NUTRITION INSTRUCTOR [facility] [place] [address] Keiry Chatterjee, RD [facility] [place] [address] documented as of this encounter Goals Goal [...] on filedocumented in this encounter Care Teams Running Specialist Relationship Specialty Start Date End Date Huyen Ramon DO PCP - General Family Medicine 04/05/[address] [place] [address] documented as of this encounter
--- OUTSIDE RECORDS SUMMARY | 2022-02-08 09:00 | XMS_ITS | Encounter Summary ---
:1970 Author Organization [facility] [place] [address] Care Team Providers Name Role Phone Huyen Ramon DO Primary Care Provider Encounter Details Date Type Department Care Team Description 09/30/2019 Telephone Weight and Wellness at [facility] Ajay Martin, [facility] [address] [place] [address] Social History Tobacco Use Types Packs/Day Years Used Date Never Smoker Smokeless Tobacco: Never Used Alcohol Use Standard Drinks/Week Comments No 0 (1 standard drink = 0.6 oz pure alcoho l) Sex Assigned at Date Recorded Not on file documented as of this encounter Miscellaneous Notes Telephone Encounter - Glenna Martin, [facility] - 09/30/2019 10:04 AM EDT [facility] Hotel Or Motel Manager Pre-telemedicine Visit Phone Note Monisha Das 1970 [...] working phone [] Message left to call [phone] [x] Patient was reached and the following information was reviewed/obtained per protocol: [x] Confirmed patient name and date of [x] Confirmed address where patient will be at time of call Patient is in [] [place] [x] [place] [] Other: [address] [facility] [address] [x] Confirmed best number to be reached is: [phone] [x] Confirmed telemedicine software downloaded and functioning REVIEW: [x] Review of patient medications completed [x] NEW medications include: [x] Confirmed preferred pharmacy: [facility] [place], [place] [] Prescriptions ready to be signed: [x] Documented self reported vital signs from [x] Home [] PCP [] outside PCP Date: 09/29/2019 [x] Weight 263 [x] Height 163.8 [] Blood pressure [] Pulse [x] Asked about any recent labs/studies [x] No [] Yes: [] Labs/vitals requested [] Labs/vitals sent for scanning (nursing secretary) and entry (RN) [x] Requested 24 hour diet recall [x] Reminded to sign up for [facility] [x] Reminded to complete [facility] survey if message received to [...] TH Visit (TeleHealth) General Surgery Rylie Rea, STAGE MANAGER [facility] [place] [address] Keiry Chatterjee, RD [facility] [place] [address] documented as of this encounter Goals Goal [...] on filedocumented in this encounter Care Teams Front Facer Relationship Specialty Start Date End Date Huyen Ramon DO PCP - General Family Medicine 04/05/[address] [place] [address] documented as of this encounter
--- OUTSIDE RECORDS SUMMARY | 2022-02-08 09:00 | XMS_ITS | Encounter Summary ---
:1970 Author Organization [facility] [place] [address] Care Team Providers Name Role Phone NicaHuyen urena Caitlin MOORE Primary Care Provider Encounter Details Date Type Department Care Team Description 10/10/2019 External Results General Surgery at [facility] [place] [address] Social History Tobacco Use Types Packs/Day [...] Visit (TeleHealth) General Surgery Rylie Rea M, MECHANICAL TECHNICAL SERVICE SPECIALIST [facility] [place] [address] Keiry Chatterjee, RD [facility] [place] [address] documented as of this encounter Goals Goal [...] on filedocumented in this encounter Care Teams Molded Goods Spot Picker Relationship Specialty Start Date End Date Huyen Ramon DO PCP - General Family Medicine 04/05/[address] [place] [address] documented as of this encounter
--- OUTSIDE RECORDS SUMMARY | 2022-02-08 09:00 | XMS_ITS | Encounter Summary ---
:1970 Author Organization [facility] Address [address] [place] [address] Care Team Providers Name Role Phone Tristen Huyenjenna Tucker DO Primary Care Provider Encounter Details Date Type Department Care Team Description 10/01/2019 TH Visit Weight and Wellness Linda Cai Class 3 severe (TeleHealth) at [facility] MD Isrrael obesity due to excess [address] [facility] with serious [place], [place] [address] comorbidity and body [phone] [facility] mass index (BMI) of [phone] PRIMARY CARE 45.0 to 49.9 in adult [place], [place] [address] Social History Tobacco Use Types [...] Cai MD - 10/01/2019 9:30 AM EDT [facility] Visit Patient Name: Monisha Das Date of : 1970 Age: 48 y.o. Huyen Ramon DO Thank you for referring Monisha Das to the [facility] for consultation regarding [...] 08/15/2018 CHIEF COMPLAINT: Follow-up for Obesity Pathway: [facility] PATHWAY - ADULT 07/23/2019 Bariatric Surgery Activate INTERVAL HISTORY / PROGRESS TOWARD GOALS: [x] I reviewed past / interim records including notes and labs. This is a 3 month from first [facility] visit folllow up for this 48 [...] out after bariatric surgery. Did labs at [facility]. Mood and stress level: Pretty good. There is been a lot of stress but she is handling it pretty well. Mom from Covid. Had to put Dad in group home. He has Parkinson's. He is doing pretty well in the group home. , Bariatric info: She has had failure to sustain weight loss by medical management, is aware of non-surgical methods at weight loss, and meets the criteria proposed by the NIH Consensus Guidelines for surgical treatmentof severe obesity. ?? Patient has decided on pursuing bariatric surgery ?? Monisha was advised that weight loss from bariatric surgery depends on ability to eat a healthy diet shelter after surgery. She is aware of our programmatic multi-disciplinary approach which includes two bariatric surgeons, as well as dietitians and obesity medicine specialist. She was advised that the final decision for procedure is made by the surgeon with input from the patient and team. Prospective patients are encouraged to thoroughly research bariatric surgery with [facility] website. Bariatric Surgery Program Requirements and further [...] study as concern for LAUREN based on Duson Questionnaire. See above [] Psych consult [x] RD Stage 2 Education scheduled [] RD note reviewed [] Starting weight :268 lbs. [x] Patient ready for second half of program, schedule Surgical RD, BREADMAN and Surgeon visit [x] Given the association of obesity with cancer, all age appropriate cancer screenings should be UTD [facility] Initial Responses 09/28/2019 URICA - Readiness [...] TFEQ-Emotional Eating 0 Food Insecurity Score 2 Duson Category I Result 0 Duson Category II Result 0 Duson Category III 1 (Positive) Duson Sleep Apnea Total 1 (Low Risk) Schooling [...] Followed a special diet (ex: Dr. Andrews, [place],[facility], NutriBrandicted) Wearing tracking devices helped improve health Yes [...] no exercise in a day No from [place] pre-visit call: [x]? Review of patient medications completed [x]? NEW medications include: [x]? Confirmed preferred pharmacy: [facility] [place], [place] []? Prescriptions ready to be signed: [x]? Documented self reported vital signs from [x]? Home []? PCP []? outside PCP Date: 09/29/2019 [x]? Weight 263 [x]? Height 163.8 []? Blood pressure []? Pulse [x]? Asked about any recent labs/studies [x]? No []? Yes: []? Labs/vitals requested []? Labs/vitals sent for scanning (statistical secretary) and entry (RN) [x]? Requested 24 [...] have ready at appointment time. Glenna Martin [facility] Pt asked me to fax previous labs [...] her slips to have these done at [facility]; I don't see results. Sent her Imitix message about this. GERD: Controlled with medication. [...] TH Visit (TeleHealth) General Surgery Rylie Rea, APARTMENT MAINTENANCE WORKER [facility] [place] [address] Keiry Chatterjee, SAM [facility] [place] [address] documented as of this encounter Goals Goal [...] adult documented in this encounter Care Teams Dental Equipment Installer And Servicer Relationship Specialty Start Date End Date Huyen Ramon DO PCP - General Family Medicine 04/05/[address] [place] [address] documented as of this encounter
--- OUTSIDE RECORDS SUMMARY | 2022-02-08 09:00 | XMS_ITS | Encounter Summary ---
:1970 Author Organization [facility] [place] [address] Care Team Providers Name Role Phone Tristen Huyenjenna Tucker DO Primary Care Provider Encounter Details Date Type Department Care Team Description 07/28/2019 Orders Only Weight and Wellness at Linda Cai MD [facility] [place] [address] C[address] [phone] [place], [place] [address] (Wo rk) Social History Tobacco [...] TH Visit (TeleHealth) General Surgery Rylie Rea, CHEMICAL LIBRARIAN [facility] [address] Keiry Chatterjee, RD [facility] [place] [address] documented as of this encounter Goals Goal [...] on filedocumented in this encounter Care Teams Shipyard Supervisor Relationship Specialty Start Date End Date Huyen Ramon, PCP - General Family Medicine 04/05/[address] [place] [address] documented as of this encounter
--- OUTSIDE RECORDS SUMMARY | 2022-02-08 09:00 | XMS_ITS | Encounter Summary ---
:1970 Author Organization [facility] [place] [address] Care Team Providers Name Role Phone Huyen Ramon DO Primary Care Provider Encounter Details Date Type Department Care Team Description 11/19/2019 Office Visit General Surgery at Quintin Rea APRN [facility] [place] [address] Class [address] [facility] Keiry Chatterjee, RD [facility] [place] [address] obesity due to excess [facility] calories with serious Drive comorbidity and body [place], [place] ([place] ) [place] [address] 45.0 to 49.9 in adult [phone] Social History Tobacco Use Types Packs/Day Years [...] be crushed (if permitted by the drug astrobiologist), taken in smaller size pills, or taken [...] - 5pm): General Surgery and Bariatric Surgery [phone] Bariatric Surgeons: Doctors. Shaw [phone] Metal Buggy Operator: [phone] Dietitians: [phone] Outside of regular business hours, including weekends and holidays: Ask for General Surgery resident head control clerk [phone] FOR EMERGENCIES: CALL 911 (trouble breathing, chest [...] weeks at the General Surgery Outpatient Clinic (Vest Front Presser 4L, [facility]). BATHING AND WOUND CARE: ?? You may [...] you have Bonilla's esophagus, continue the medication prison GALLSTONE PREVENTION: ?? If you have had [...] 200 on more than 3 checks, call [facility] care physician or diabetic specialist for recommendations. For patients on insulin and oral diabetic medications: If blood sugar is over 200 on 3 checks, call your primary care doctor or diabetic specialist for recommendations. ?? Follow up with primary care provider or unattended ground sensor specialist in 1-2 weeks in order to [...] through dieting have been unsuccessful over the senior linux engineer. Advised patient that bariatric surgery is a [...] 11/19/2019 10:00 AM EDT BARIATRIC SURGERY PROGRAM [place], [place] [address] Reason for visit: [facility] for up coming bariatric surgery Monisha attended a comprehensive group pre-operative class today, which included discussion of pre and post operative instructions included in the [facility] Bariatric Surgery Program Education Handbook. The nutrition [...] Pt previously attended a Introduction to the [facility] Bariatric Surgery Program seminar, a two hour meeting that provides a program overview as well as expectations. The [facility] Bariatric Surgery Program Educational seminar requirement has [...] surgery and post-op routine care/ locations: Admissions/SDP/PACU/4/3/2 [facility] units ?? medications that increase the risk [...] APRN [facility] [place] [address] [facility] [place] [address] documented as of this encounter Goals Goal [...] adult documented in this encounter Care Teams Gang Vibrator Operator Relationship Specialty Start Date End Date Huyen Ramon DO PCP - General Family Medicine 04/05/[address] [place] [address] documented as of this encounter
--- OUTSIDE RECORDS SUMMARY | 2022-02-08 09:00 | XMS_ITS | Encounter Summary ---
:1970 Author Organization [facility] [address] Care Team Providers Name Role Phone Huyen Ramon DO Primary Care Provider Encounter Details Date Type Department Care Team Description 08/21/2019 Telephone Weight and Wellness at [place] RN [facility] [address] [place] [address] Social History Tobacco Use Types Packs/Day Years [...] TH Visit (TeleHealth) General Surgery Rylie Rea, CONTROL CLERK REPAIRS [facility] [place] [address] Keiry Chatterjee, RD [facility] [address] [place] [address] documented as of this encounter Goals Goal [...] on filedocumented in this encounter Care Teams Hogshead Press Operator Relationship Specialty Start Date End Date Huyen Ramon DO PCP - General Family Medicine 04/05/[address] [place] [address] documented as of this encounter
--- OUTSIDE RECORDS SUMMARY | 2022-02-08 09:00 | XMS_ITS | Encounter Summary ---
:1970 Author Organization [facility] [place] [address] Care Team Providers Name Role Phone Huyen Ramon DO Primary Care Provider Encounter Details Date Type Department Care Team Description 08/20/2019 Telephone Weight and Wellness at [facility] Ajay Martin, [facility] [address] [place] [address] Social History Tobacco Use Types Packs/Day Years Used Date Never Smoker Smokeless Tobacco: Never Used Alcohol Use Standard Drinks/Week Comments No 0 (1 standard drink = 0.6 oz pure alcoho l) Sex Assigned at Date Recorded Not on file documented as of this encounter Miscellaneous Notes Telephone Encounter - Glenna Martin, [facility] - 08/20/2019 10:40 AM EDT [facility] Powder Carrier Pre-telemedicine Visit Phone Note Monisha Das 1970 [...] working phone [] Message left to call [phone] [x] Patient was reached and the following information was reviewed/obtained per protocol: [x] Confirmed patient name and date of [x] Confirmed telemedicine software downloaded and functioning [x] Confirmed location of patient. Patient is in [] MD [x] [place] [x] Confirmed best number to be reached is: [phone] REVIEW: [x] Review of patient medications completed [x] NEW medications include: [x] Confirmed preferred pharmacy: [facility] [] Prescriptions ready to be signed: [x] Documented self reported vital signs from [x] Home [] PCP [] outside PCP Date: 08/20/2019 [x] Weight 265.8 [x] Height 5 5 pt reported [] Blood pressure [] Pulse [x] Asked about any recent labs/studies [] No [x] Yes: [place], [place] [] Labs/vitals requested [] Labs/vitals sent for scanning (area secretary) and entry (RN) [x] Requested 24 hour diet recall -------- [x] Reminded to sign up for MyDH [x] Reminded to complete [facility] survey if message received to do [...] to have ready for appointment time. Glenna Martin CMA documented in this encounter Plan of Treatment Upcoming Encounters Date Type Specialty Care Team Description 03/10/2022 TH Visit (TeleHealth) General Surgery Rylie Rea, HOT DIE PRESS OPERATOR [facility] [place] [address] Keiry Chatterjee, RD [facility] [place] [address] documented as of this encounter Goals Goal [...] on filedocumented in this encounter Care Teams Glue Specialty Supervisor Relationship Specialty Start Date End Date Huyen Ramon DO PCP - General Family Medicine 04/05/[address] [place] [address] documented as of this encounter
--- OUTSIDE RECORDS SUMMARY | 2022-02-08 09:00 | XMS_ITS | Encounter Summary ---
:1970 Author Organization [facility] [place] [address] Care Team Providers Name Role Phone Tristen Huyenjenna Tucker DO Primary Care Provider Encounter Details Date Type Department Care Team Description 07/22/2019 Telephone Weight and Wellness at [facility] Ajay Martin, [facility] [address] [place] [address] Social History Tobacco Use Types Packs/Day Years Used Date Never Smoker Smokeless Tobacco: Never Used Alcohol Use Standard Drinks/Week Comments No 0 (1 standard drink = 0.6 oz pure alcoho l) Sex Assigned at Date Recorded Not on file documented as of this encounter Miscellaneous Notes Telephone Encounter - Glenna Martin, [facility] - 07/22/2019 11:04 AM EDT Weight and Wellness Retail Project Merchandiser pre telemedicine visit phone note. [] Patient [...] TH Visit (TeleHealth) General Surgery Rylie Rea, TUBE AND MANIFOLD BUILDER [facility] [place] [address] Keiry Chatterjee, RD [facility] [place] [address] documented as of this encounter Visit Diagnoses Not on filedocumented in this encounter Care Teams Supervisor Filling And Packing Relationship Specialty Start Date End Date Huyen Ramon DO PCP - General Family Medicine 04/05/[address] [place] [address] documented as of this encounter
--- OUTSIDE RECORDS SUMMARY | 2022-02-08 09:00 | XMS_ITS | Encounter Summary ---
:1970 Author Organization [facility] Address [facility] [place] [address] Care Team Providers Name Role Phone NicaHuyen urena Caitlin MOORE Primary Care Provider Reason for Visit Reason Comments Follow-up results Encounter Details Date Type Department Care Team Description 10/02/2018 Office Visit Allergy at [facility] Irma Schroeder, [place]; [facility] Diarrhea, unspecified type; Drive [facility] Angioedema, subsequent encou nter; [place], [place] Abnormal laboratory test; [address] ALLERGY AND Hypokalemia; [phone] IMMUNOLOGY Fatty infiltration of liver; [place], [place] [address] Elevated blood pressure reading; [phone] Hypertension, u nspecified type (Work) Social History [...] elevated blood pressure. - Follow up with charge entry - Consider referral to to [facility] or [facility]- nut threader or optical coating technician documented in this encounter Progress Notes Irma Schroeder MD - 10/02/2018 10:30 AM EDT Chief Complaint Patient presents with ??? Follow-up results Summary of outside records: September 20, 2018 CT abdomen is completed at [facility]. Interpreted by Dr. Huyen Ramon. There was [...] had a tryptase level checked at [facility] and it was 9.3ng/mL. She has a standing tryptase lab at [facility] to be drawn prn symptoms of MCAS. [...] DIAGNOSTIC performed by Luther Narayan MD at [facility] ENDOSCOPY ??? PRO ENDOSCOPIC US EXAM, ESOPH N/A 12/05/2017 UPPER EUS- ENDOSCOPIC ULTRASOUND performed by Luther Narayan MD at [facility] ENDOSCOPY ??? PRO UPPER GI ENDOSCOPY, BIOPSY N/A 12/05/2017 EGD WITH BIOPSY (WRVU 2.49) performed by Luther Narayan MD at [facility] ENDOSCOPY ??? TONSILLECTOMY Family history: Family [...] on phone: None Gets together: None Attends baptist service: None Active member of club or [...] MCAS is unlikely with normal mast cell husker operator levels during an event. Patient she is [...] review her abnormal urine results with her charge entry as well. - Recently started cetirizine and [...] with PCP for management of diarrhea. Consider nut threader referral with PCP for evaluation of diarrhea. 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 charge entry to review her symptoms and determine if and when any octreotide scan should be repeated to re- evaluate for carcinoid syndrome. - Discuss with PCP about referral to [facility] or [facility] GI or allergy to evaluate abdominal [...] TH Visit (TeleHealth) General Surgery Rylie Rea, MOTION PICTURES CARTOONIST [facility] [place] [address] Keiry Chatterjee, RD [facility] [place] [address] documented as of this encounter Visit Diagnoses Diagnosis [place] Diarrhea, unspecified type Angioedema, subsequent encounter Abnormal laboratory test Other abnormal clinical finding Hypokalemia Hypopotassemia Fatty infiltration of liver Other chronic nonalcoholic liver disease Elevated blood pressure reading Elevated blood pressure reading without diagnosis of hypertension Hypertension, unspecified type documented in this encounter Care Teams Field Service Consultant Relationship Specialty Start Date End Date Huyen Ramon DO PCP - General Family Medicine 04/05/[address] [place] [address] documented as of this encounter
--- OUTSIDE RECORDS SUMMARY | 2022-02-08 09:00 | XMS_ITS | Encounter Summary ---
:1970 Author Organization [facility] [place] [address] Care Team Providers Name Role Phone NicaandrewlucindaHuyen sharma Caitlin MOORE Primary Care Provider Encounter Details Date Type Department Care Team Description 09/22/2019 Telephone Weight and Wellness at [facility] Debra Pink [address] [place] [address] Social History Tobacco Use Types Packs/Day [...] and [facility]als [facility] documented in this encounter Plan of Treatment Upcoming Encounters Date Type Specialty Care Team Description 03/10/2022 TH Visit (TeleHealth) General Surgery Rylie Rea, PATTERN GRADER [facility] [place] [address] Keiry Chatterjee, RD [facility] [address] [place] [address] documented as of this encounter Goals Goal [...] on filedocumented in this encounter Care Teams Lead Printer Relationship Specialty Start Date End Date Huyen Ramon DO PCP - General Family Medicine 04/05/[address] [place] [address] documented as of this encounter
--- OUTSIDE RECORDS SUMMARY | 2022-02-08 09:00 | XMS_ITS | Encounter Summary ---
:1970 Author Organization [facility] [place] [address] Care Team Providers Name Role Phone Huyen Ramon DO Primary Care Provider Reason for Visit Reason Comments Skin Check Consultation (Routine) - Specialty Diagnoses / Procedures Referred By Contact Refer red To Contact Dermatology Diagnoses Disorder of the skin and subcutaneous tissue, unspecified New lesions. Nodular papules w/o exudate or pain along LE Huyen Ramon DO Hammer, Charles J, MD Procedures Consult [address] [facility] [address] [place], [place] DERMATOLOGY [address] [place] [address] Fax: Referral ID Status Reason Start Date Expiration Date Visits V isits Requested Authorized [id number] Consult, Test 11/20/2018 05/23/2019 6 6 & Treat PCP Updated and/or Approved Encounter Details Date Type Department Care Team Description 03/18/2019 Office Visit Dermatology at [facility] Stucco keratosis; [place] Seborrheic keratosis; [address] [facility] [address] Dermatofibroma; [place] [facility] DERMATOLOGY Alopecia totalis [place], [place] [id number] [phone] Social History Tobacco Use Types Packs/Day Years [...] legs that she like to have checked. Alsosylvia has facial erythema and erythema of the [...] the research being done with a new CARLO 1 inhibitors 2. For now continue hairpiece [...] TH Visit (TeleHealth) General Surgery Rylie Rea, SYNTHETIC GEM PRESS OPERATOR [facility] [place] [address] Keiry Chatterjee, RD [facility] [place] [address] documented as of this encounter Visit Diagnoses Diagnosis Stucco keratosis Acquired keratoderma Seborrheic keratosis Other seborrheic keratosis Dermatofibroma Benign neoplasm of skin, site unspecifie d Alopecia totalis Other alopecia documented in this encounter Care Teams Generator Repairer Relationship Specialty Start Date End Date Huyen Ramon DO PCP - General Family Medicine 04/05/[address] [place] [address] documented as of this encounter
--- OUTSIDE RECORDS SUMMARY | 2022-02-08 09:00 | XMS_ITS | Encounter Summary ---
:1970 Author Organization [facility] [place] [address] Care Team Providers Name Role Phone Tristen Huyenjenna Tucker DO Primary Care Provider Encounter Details Date Type Department Care Team Description 10/15/2019 Telephone Weight and Wellness at [facility] Izabela Hall [address] [place] [address] Social History Tobacco Use Types Packs/Day [...] TH Visit (TeleHealth) General Surgery Rylie Rea, FOOD AND NUTRITION SERVICES SUPERVISOR [facility] [place] [address] Keiry Chatterjee, RD [facility] [place] [address] documented as of this encounter Goals Goal [...] (Enter personal Lifestyle On track (08/29/2019 No Linad Cai MD goal) 10:03 AM EDT) Note: [...] on filedocumented in this encounter Care Teams Steam Clothes Press Operator Relationship Specialty Start Date End Date Huyen Ramon DO PCP - General Family Medicine 04/05/18 [facility] [place] [address] documented as of this encounter
--- OUTSIDE RECORDS SUMMARY | 2022-02-08 09:00 | XMS_ITS | Encounter Summary ---
:1970 Author Organization [facility] [place] [address] Care Team Providers Name Role Phone Tristen Huyenjenna Tucker DO Primary Care Provider Encounter Details Date Type Department Care Team Description 07/30/2019 TH Visit Weight and Wellness Sandy Russo BMI 40.0-44.9 (TeleHealth) at [facility] Abdirahman, RD kg/sq m 18 [facility] [id number] [place] [address] Social History Tobacco Use Types Packs/Day Years [...] you or a water bottle that can tan room supervisor to your fitbit or lines with [...] 266 lb today Vitals 07/30/2019 07/23/2019 Height (Yakut) 64.488 Height (Metric) 163.8 cm Weight (Yakut) 266 lbs 268 lbs Weight (Metric) 120.657 [...] non- starchy veggies, turkey, salsa, nonfat plain Barbadian (more typical: light greek muffin- 100 divina- or a sandwich thin [...] you or a water bottle that can tan room supervisor to your fitbit or lines with [...] TH Visit (TeleHealth) General Surgery Rylie Rea, WELT SLASHER [facility] [place] [address] Keiry Chatterjee, RD [facility] [place] [address] documented as of this encounter Goals Goal [...] adult documented in this encounter Care Teams Tomato Grader Relationship Specialty Start Date End Date Huyen Ramon DO PCP - General Family Medicine 04/05/[address] [place] [address] documented as of this encounter
--- OUTSIDE RECORDS SUMMARY | 2022-02-08 09:00 | XMS_ITS | Encounter Summary ---
:1970 Author Organization [facility] [address] Care Team Providers Name Role Phone LdHuyen resendez Caitlin MOORE Primary Care Provider Encounter Details Date Type Department Care Team Description 11/30/2018 External Results Radiation Oncology a t [address] [phone] Social History Tobacco Use [...] TH Visit (TeleHealth) General Surgery Rylie Rea, AUTO CLUTCH SPECIALIST [facility] [place] [address] Keiry Chatterjee, RD [facility] [place] [address] documented as of this encounter Procedures Procedure [...] on filedocumented in this encounter Care Teams Camp Maintenance Supervisor Relationship Specialty Start Date End Date Huyen Ramon DO PCP - General Family Medicine 04/05/[address] [place] [address] documented as of this encounter
--- OUTSIDE RECORDS SUMMARY | 2022-02-08 09:00 | XMS_ITS | Encounter Summary ---
:1970 Author Organization [facility] Address [address] [place] [address] Care Team Providers Name Role Phone Tristen Huyenjenna Tucker DO Primary Care Provider Encounter Details Date Type Department Care Team Description 07/31/2019 TH Visit Weight and Wellness Naseem Wild Class 3 severe (TeleHealth) at [facility] [address] obesity due to excess [address] calories with serious [place], [place] comorbidity and body [address] mass index (BMI) of [phone] 45.0 to 49.9 in adult Social History [...] your journey! Please feel free to call [facility] anytime if you'd like extra support from me as you work away at your goals. I will send you the Mindfulness Hand-out we have along with some other apps and web sites you might find helpful. Naseem Edward Health Civil Structural Engineer documented in this encounter Progress Notes Naseem Wild - 07/31/2019 8:00 AM EDT [facility] Health Civil Structural Engineer Phone Visit - NEW 07/31/2019 [facility] provider: Dr. Cai IV: Naseem [ x ] I confirmed that I am speaking with Monisha Geetha Das who is doing this phone visit from home [x ] Patient verbally consents to this telephone visit and understands that this visit may be billed, similar to a clinic office visit. [facility] Program Information: [ x ] I reviewed Monisha Das'sknowledge/understanding of the [facility] program and pathways. Comments:bariatric pathway [ [...] you or a water bottle that can set up mechanic automatic line to your fitbit or lines with the [...] Mindfulness, relaxation practices. Strengths:partner also going through [facility] program so we support each other. [...] Dr. Cai and Sandy. She will call [facility] if she feels like she would like to meet with me again. Scheduling [ ] Health college football coach call in [ ] weeks Also needs the following scheduled (brake operator helper tasked to call) [ ] RD TH visit [ ] MD/SUGAR TRUCKER visit [ ] Is interested in classes once offered: [ ] culinary [ ] peer I provided care to the patient today via telephone call, 30 minutes telephone visit was spent in discussion with patient on above. Naseem Wild, Health Civil Structural Engineer documented in this encounter Plan of Treatment Upcoming Encounters Date Type Specialty Care Team Description 03/10/2022 TH Visit (TeleHealth) General Surgery Rylie Rea, AUTOMATIC BRINE MIXER OPERATOR [facility] [place] [address] Keiry Chatterjee, RD [facility] [place] [address] documented as of this encounter Goals Goal [...] adult documented in this encounter Care Teams Tariff Compiler Relationship Specialty Start Date End Date Huyen Ramon DO PCP - General Family Medicine 04/05/[address] [place] [address] documented as of this encounter
--- OUTSIDE RECORDS SUMMARY | 2022-02-08 09:00 | XMS_ITS | Encounter Summary ---
:1970 Author Organization [facility] [place] [address] Care Team Providers Name Role Phone Tristen Huyenjenna Tucker DO Primary Care Provider Encounter Details Date Type Department Care Team Description 08/01/2019 Orders Only Weight and Wellness at Linda Cai MD [facility] [place] [address] CARE [phone] [place], [place] [address] (Wo rk) Social History Tobacco [...] TH Visit (TeleHealth) General Surgery Rylie Rea, RIPRAP PLACING SUPERVISOR [facility] [address] Keiry Chatterjee, RD [facility] [place] [address] documented as of this encounter Goals Goal [...] on filedocumented in this encounter Care Teams Digital Music Instructor Relationship Specialty Start Date End Date Huyen Ramon DO PCP - General Family Medicine 04/05/[address] [place] [address] documented as of this encounter
--- OUTSIDE RECORDS SUMMARY | 2022-02-08 09:00 | XMS_ITS | Encounter Summary ---
:1970 Author Organization [facility] [place] [address] Care Team Providers Name Role Phone TristenStefanijenna Tucker DO Primary Care Provider Reason for Referral Physical Therapy (Routine) - Closed Specialty Diagnoses / Procedures Referred By Contact Refer red To Contact Physical Therapy Diagnoses Neural foraminal stenosis of cervical spine Anurag Omalley, [facility] Spine [place] [address] [place] [address] Referral ID Status Reason Start Date Expiration Date Visits V isits Requested Authorized [id number] Closed Evaluate and 08/12/2019 08/11/2020 12 12 Treat Reason for Visit Reason Comments Left Shoulder Pain Left Arm Pain Consultation (Routine) - Closed Specialty Diagnoses / Procedures Referred By Contact Refer red To Contact [facility] Diagnoses Cervical radiculopathy Spine ([facility]) - Cervical radiculopathy/ ?injections/ MRI & XR 06/2019 in eDH *reviewed by Ruiz Agrawal, [facility] MD Spine [address] [place], [place] [address] [place] [phone] Phone: Fax: Referral ID Status Reason Start Date Expiration Date Visits Requ ested Visits Authorized [id number] Closed 07/02/2019 07/01/2020 1 1 Encounter Details Date Type Department Care Team Description 08/12/2019 TH Visit Pain and Spine Anurag Omalley fo raminal (TeleHealth) Center at [facility] ENRIQUE Isaacs stenosis of cervical [facility] spine [facility] [address] [place] [address] [phone] Social History Tobacco Use Types Packs/Day Years [...] denies tobacco or alcohol use, lives in [place] with her partner and their respective children and 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 Past medical history is well-documented in her [...] PLAN: 1/mechanical diagnosis and therapy with a real estate specialist physical therapist via telehealth. The patient [...] Visit (TeleHealth) General Surgery Rylie Rea APRN [facility] [place] [address] [facility] [place] [address] Scheduled Referrals Name Type Priority Associated Diagnoses [...] region documented in this encounter Care Teams Food Beverage Supervisor Relationship Specialty Start Date End Date Huyen Ramon DO PCP - General Family Medicine 04/05/18 [address] [place] [address] documented as of this encounter
--- OUTSIDE RECORDS SUMMARY | 2022-02-08 09:00 | XMS_ITS | Encounter Summary ---
:1970 Author Organization [facility] [place] [address] Care Team Providers Name Role Phone Huyen Ramon DO Primary Care Provider Encounter Details Date Type Department Care Team Description 06/27/2019 Ancillary Procedure Radiology Library at Pricila Ramon [facility] B, DO [facility] [address] [place] [phone] (Wo rk) Social History Tobacco Use Types [...] Visit (TeleHealth) General Surgery Rylie Rea, DIRECTOR RETIREMENT [facility] [place] [address] Keiry Chatterjee, RD [facility] [place] [address] documented as of this encounter Procedures Procedure [...] Time Received Time / Laterality Volume Narrative [facility] - 07/01/2019 3:50 PM EDT This exam is auto-finalizing. It's purpo se is for storage only. Huyen Ramon DO IM FILM LIBRARY ORDERABLES Performing Organization Address City/State/ZIP Code Phon e Number [place], [place] documented in this encounter Visit Diagnoses Not on filedocumented in this encounter Care Teams Archaeologist Relationship Specialty Start Date End Date Huyen Ramon DO PCP - General Family Medicine 04/05/[address] [place] [address] documented as of this encounter
--- OUTSIDE RECORDS SUMMARY | 2022-02-08 09:00 | XMS_ITS | Encounter Summary ---
:1970 Author Organization [facility] [place] [address] Care Team Providers Name Role Phone NicaHuyen urena Primary Care Provider Encounter Details Date Type Department Care Team Description 10/09/2019 Office Visit General Surgery at [facility] michelle holbrook MD [facility] [place] [address] Morbid obesity with [facility] Keiry Chatterjee RD [facility] [place] [address] BMI of 45.0-49.9, [facility] [place] [address] Social History Tobacco Use Types Packs/Day Years [...] BARIATRIC SURGERY PROGRAM FIRST VISIT Contact information: [facility] Administrative staff: Yadira [phone] [phone] Dietitian: [phone] Surgeons/ nurse practitioner: [phone] Nurse line: [phone] Bariatric Surgery Program educational information: ?? Read the Bariatric Surgery Program Educational Handbook thoroughly, highlight important areas to remember. Write down any questions that you may have to discuss at next visit. ?? Bring the Handbook to ALL pre-operative visits. Keep the handbook in a safe place for easy retrieval. Your next visits: All visits take place in the General Surgery Clinic, Special Forces Senior Sergeant Area 4L ??? 2nd visits with dietitian [...] be crushed (if permitted by the drug rolled materials worker) or taken in liquid form for TWO [...] medications will need to be used sparingly buttermaker helper after surgery to decrease risk of ulcer. [...] in your handbook. 2. Check out the [place] Society for Metabolic and Bariatric surgery (ASMBS) website for patient education - http://asmbs.org/patients 3. Nutrition and Activity apps- Baritastic, My Fitness Pal, Lose It 4. [facility] facebook page: [email or web address] documented in this encounter Progress Notes Nusrat Garcia MD - 10/09/2019 8:00 AM EDT [facility] Bariatric Surgery Evaluation Reason for consultation: Monisha [...] She has attended a Introduction to the [facility] Bariatric Surgery Program seminar, a comprehensive two hour meeting that provides a program overview, education on bariatric surgeries offeredat [facility], risks and benefits, as well as patient expectations and follow up. [facility] Bariatric Surgery Program Educational seminars viewed 2. Pre-operative programmatic evaluations: PCP evaluation and letter of support to proceed with surgery, BSP labwork, and psychological evaluation. 3. Bariatric Surgery Program evaluations with RD today. 4. Program start weight: 268 WT at visit #1: Wt & BMI By Encounter Date Office Visit from 10/09/2019 in General Surgery at [facility] TH Visit (TeleHealth) from 10/01/2019 in Weightand Wellness at [facility] Weight 121.5 kg (267 lb 12.8 oz) [...] DIAGNOSTIC performed by Luther Narayan MD at [facility] ENDOSCOPY ??? PRO ENDOSCOPIC US EXAM, ESOPH N/A 12/05/2017 UPPER EUS- ENDOSCOPIC ULTRASOUND performed by Luther Narayan MD at [facility] ENDOSCOPY ??? PRO UPPER GI ENDOSCOPY, BIOPSY N/A 12/05/2017 EGD WITH BIOPSY (WRVU 2.49) performed by Luther Narayan MD at [facility] ENDOSCOPY ??? TONSILLECTOMY C section x 3 [...] file Gets together: Not on file Attends hoahaoism service: Not on file Active member of [...] obesity surgery/foregut surgery [] Previous organ transplant [facility] Initial Responses 09/28/2019 [facility] - Readiness [...] TFEQ-Emotional Eating 0 Food Insecurity Score 2 [place] Category I Result 0 [place] Category II Result 0 [place] Category III 1 (Positive) [place] Sleep Apnea Total 1 (Low Risk) Schooling [...] Followed a special diet (ex: Dr. Andrews, [place],[facility], [employer]) Wearing tracking devices helped improve health Yes [...] [] hematuria [] history of renal calculi INSPECTING MACHINE ADJUSTER: [] LMP: [] menorrhagia [] menopause Musculoskeletal [...] of treatment of obesity and of the [facility] Bariatric Surgery Program: Ms.. Das is aware that other treatments for obesity are available, ie, dietary, behavior modification, weight loss medications, exercise as well as surgical weight loss methods. The risks and benefits of bariatric surgery, including gastric bypass and sleeve gastrectomy are discussed at every Intr oduction to the [facility] Bariatric Surgery Program meeting and all Educational [...] surgery to be successful. She understands the buttermaker helper risks of vitamindeficiencies, internal hernias and ulcers. 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 Previous conservative attempts at weight loss through dieting have been unsuccessful over the [facility]. Predicted weight loss with surgery is an [...] to surgery. Information given to patient: 1. [facility] Bariatric Surgery Education Handbook, a 102 page [...] TH Visit (TeleHealth) General Surgery Rylie Rea, GAS STATION CLERK [facility] [place] [address] [facility] [place] [address] documented as of this encounter Goals Goal [...] obesity documented in this encounter Care Teams Staffing Program Manager Relationship Specialty Start Date End Date Huyen Ramon DO PCP - General Family Medicine 04/05/[address] [place] [address] documented as of this encounter
--- OUTSIDE RECORDS SUMMARY | 2022-02-08 09:00 | XMS_ITS | Encounter Summary ---
:1970 Author Organization [facility] [place] [address] Care Team Providers Name Role Phone Tristen Huyenjenna Tucker DO Primary Care Provider Encounter Details Date Type Department Care Team Description 09/29/2019 TH Visit Weight and Wellness Sandy Russo BMI 40.0-44.9 (TeleHealth) at [facility] Abdirahman, SAM kg/sq m 18 [address] [facility] [address] [place] [address] Social History Tobacco Use Types Packs/Day Years [...] at home at the following address: [address] [place] [phone] Food Trackers: Yes, using daily. Calories between [...] and down to 105) Vitals 09/29/2019 Height (Mongolian) 64.488 Height (Metric) 163.8 cm Weight (Mongolian) 263 lbs Weight (Metric) 119.296 kg BMI (Calculated) 44.46 kg/m2 Weight Loss History: For full account, see previous notes from this marine underwriter and initial visit encounter with Weight and [...] a med baked pot with plain nonfat cymraes yog and salt/pepper and a cup ofroasted [...] RD visits. Reviewed option to return to [facility] 6-months post op for check in, behavioral [...] Visit (TeleHealth) General Surgery Rylie Rea, ENRIQUE [facility] [place] [address] [facility] [place] [address] documented as of this encounter Goals Goal [...] adult documented in this encounter Care Teams Potato Chip Sacking Machine Operator Relationship Specialty Start Date End Date Huyen Ramon DO PCP - General Family Medicine 04/05/[address] [place] [place] [address] documented as of this encounter
--- OUTSIDE RECORDS SUMMARY | 2022-02-08 09:00 | XMS_ITS | Encounter Summary ---
:1970 Author Organization [facility] [place] [address] Care Team Providers Name Role Phone Huyen Ramon Primary Care Provider Encounter Details Date Type Department Care Team Description 07/24/2019 External Results [facility] [address] [place] [address] Social History Tobacco Use Types Packs/Day Years [...] TH Visit (TeleHealth) General Surgery Rylie Rea, DOUBLE END CHUCKING MACHINE OPERATOR [place] [address] Keiry Chatterjee, RD [facility] [place] [address] documented as of this encounter Goals Goal [...] Name Priority Date/Time Associated Diagnosis Comme nts [facility] EXTERNAL RESULT Routine 05/19/2019 Results for this PANEL procedure are i n the results section . documented in this encounter Results (ABNORMAL) [facility] External Results (05/19/2019) Analysis Performed At [facility] Time Signature Glucose 143 (ExtH) Fasting [...] on filedocumented in this encounter Care Teams Clay Roaster Relationship Specialty Start Date End Date Huyen Ramon, DO PCP - General Family Medicine 04/05/[address] [place] [address] documented as of this encounter
--- OUTSIDE RECORDS SUMMARY | 2022-02-08 09:00 | XMS_ITS | Encounter Summary ---
:1970 Author Organization [facility] [place] [address] Care Team Providers Name Role Phone Huyen Ramon Primary Care Provider Encounter Details Date Type Department Care Team Description 07/24/2019 Notes Only Weight and Wellness at Linda Cai MD [facility] 18 [facility] [place] [address] [place] [address] [phone] (Wo rk) Social History Tobacco Use Types [...] Also I could not find anything from [facility] about work-up of flash pulmonary edema in [...] Visit (TeleHealth) General Surgery Rylie Rea M, MILLINERY SALESPERSON [facility] [place] [address] Keiry Chatterjee, RD [facility] [place] [address] documented as of this encounter Goals Goal [...] on filedocumented in this encounter Care Teams Toys Inspector Relationship Specialty Start Date End Date Huyen Ramon DO PCP - General Family Medicine 04/05/[address] [place] [address] documented as of this encounter
--- OUTSIDE RECORDS SUMMARY | 2022-02-08 09:00 | XMS_ITS | Encounter Summary ---
:1970 Author Organization [facility] [place] [address] Care Team Providers Name Role Phone Tristen Huyenjenna Tucker DO Primary Care Provider Encounter Details Date Type Department Care Team Description 11/20/2019 Telephone [facility] [place] [address] Social History Tobacco Use Types Packs/Day [...] patient. Ordering provider: Dr. Garcia Testing Facility: [facility] Date of Testin/25 Time of Testin:00am Symptoms: na Is this the first test for Covid 19 No, cottage negative If no, please list date of previous test, result, and type of test (Molecular, Antigen, Antibody or unknown): Resides in congregate care setting No Employee or Household Member of Employee No Healthcare Worker No Telephone Encounter - Tigist Vinson - 11/20/2019 11:32 AM EDT Lm to [...] TH Visit (TeleHealth) General Surgery Rylie Rea, SPECIAL WARFARE COMBATANT CREWMAN [facility] [place] [address] Keiry Chatterjee, RD [facility] [place] [address] documented as of this encounter Goals Goal [...] on filedocumented in this encounter Care Teams Acoustics Teacher Relationship Specialty Start Date End Date Huyen Ramon DO PCP - General Family Medicine 04/05/[address] [place] [address] documented as of this encounter
--- OUTSIDE RECORDS SUMMARY | 2022-02-08 09:00 | XMS_ITS | Encounter Summary ---
:1970 Author Organization [facility] [place] [address] Care Team Providers Name Role Phone Tristen Huyenjenna Tucker DO Primary Care Provider Encounter Details Date Type Department Care Team Description 09/22/2019 Telephone Weight and Wellness at [facility] Izabela Hall [address] [place] [address] Social History Tobacco Use Types Packs/Day [...] TH Visit (TeleHealth) General Surgery Rylie Rea, NEON TECHNICIAN [facility] [place] [address] Keiry Chatterjee, RD [facility] [place] [address] documented as of this encounter Goals Goal [...] on filedocumented in this encounter Care Teams Barrel Rifler Operator Relationship Specialty Start Date End Date Huyen Ramon DO PCP - General Family Medicine 04/05/18 [facility] [place] [place] [address] documented as of this encounter
--- OUTSIDE RECORDS SUMMARY | 2022-02-08 09:00 | XMS_ITS | Encounter Summary ---
:1970 Author Organization [facility] [place] [address] Care Team Providers Name Role Phone Huyen Ramon DO Primary Care Provider Reason for Visit Consultation (Routine) - Closed Specialty Diagnoses / Procedures Referred By Contact Refer red To Contact Endocrinology Diagnoses Dehydration hx thyroiditis, + metanephrine in 24 hr urine Huyen Ramon, [facility] 3b DO [address] [place] [address] [place], [place] Phone: [phone] Referral ID Status Reason Start Date Expiration Date Visits V isits Requested Authorized [id number] Closed Consult, 09/24/2018 09/24/2019 1 1 [facility] Encounter Details Date Type Department Care Team Description 10/16/2018 Office Visit Endocrinology at [facility] Jcarlos Perez DO Diarrhea, unspecified [facility] type [facility] [place] [address] ENDOCRINOLOGY [phone] DEPT [place] [address] Social History Tobacco [...] on phone: None Gets together: None Attends church service: None Active member of club or [...] with any questions. Jcarlos Barker DO, MS Jewelry Making Instructorfamily and consumer education teacher Department of Medicine Section of Endocrinology [facility] cc: Huyen Ramon DO documented in this encounter Plan of Treatment Upcoming Encounters Date Type Specialty Care Team Description 03/10/2022 TH Visit (TeleHealth) General Surgery Rylie Rea, PATCH WORKER [facility] [place] [address] Keiry Chatterjee, RD [facility] [place] [address] documented as of this encounter Visit Diagnoses Diagnosis Diarrhea, unspecified type documented in this encounter Care Teams Radiographic Technologist Relationship Specialty Start Date End Date Huyen Ramon DO PCP - General Family Medicine 04/05/[address] [place] [address] documented as of this encounter
--- OUTSIDE RECORDS SUMMARY | 2022-02-08 09:00 | XMS_ITS | Encounter Summary ---
:1970 Author Organization [facility] [place] [address] Care Team Providers Name Role Phone Huyen Ramon DO Primary Care Provider Encounter Details Date Type Department Care Team Description 10/06/2019 Telephone Weight and Wellness at [place] RN [facility] [address] [place] [address] Social History Tobacco Use Types Packs/Day Years [...] 03/10/2022 TH Visit (TeleHealth) General Surgery Rylie eRa, GLUE JOINTER OPERATOR [facility] [address] Keiry Chatterjee, RD [facility] DR [place] [address] documented as of this encounter Goals Goal [...] on filedocumented in this encounter Care Teams Reservoir Engineer Relationship Specialty Start Date End Date Huyen Ramon DO PCP - General Family Medicine 04/05/[address] [place] [address] documented as of this encounter
--- OUTSIDE RECORDS SUMMARY | 2022-02-08 09:00 | XMS_ITS | Encounter Summary ---
:1970 Author Organization [facility] [place] [address] Care Team Providers Name Role Phone Huyen Ramon DO Primary Care Provider Encounter Details Date Type Department Care Team Description 06/05/2019 Ancillary Procedure Radiology Library at Pricila Ramon [facility] B, DO [facility] [address] [place] [phone] (Wo rk) Social History Tobacco Use Types [...] TH Visit (TeleHealth) General Surgery Rylie Rea, CLIENT CARE CONSULTANT [facility] [place] [address] Keiry Chatterjee, RD [facility] [place] [address] documented as of this encounter Procedures Procedure [...] Time Received Time / Laterality Volume Narrative [facility] - 07/01/2019 3:48 PM EDT This exam is auto-finalizing. It's purpo se is for storage only. Huyen Ramon DO IM FILM LIBRARY ORDERABLES Performing Organization Address City/State/ZIP Code Phon e Number [place], [place] documented in this encounter Visit Diagnoses Not on filedocumented in this encounter Care Teams Grainer Machine Relationship Specialty Start Date End Date Huyen Ramon DO PCP - General Family Medicine 04/05/[address] [place] [address] documented as of this encounter
--- OUTSIDE RECORDS SUMMARY | 2022-02-08 09:01 | XMS_ITS | Encounter Summary ---
:1970 Author Organization [facility] [place] [address] Care Team Providers Name Role Phone TristenStefanijenna Tucker DO Primary Care Provider Encounter Details Date Type Department Care Team Description 07/29/2018 Hospital Encounter Hematology and Leukocy tosis, Oncology at [facility] [place] [address] Social History Tobacco Use Types Packs/Day [...] TH Visit (TeleHealth) General Surgery Rylie Rea, POLE FRAME CONSTRUCTION WORKER [facility] [place] [address] Keiry Chatterjee, RD [facility] [place] [address] documented as of this encounter Procedures Procedure [...] Component Value Ref Test Analysis Performed At [facility] Method Time Signature Flow [id number] ? Location: [address] [place] [address] Report The signing pathologist has (i) examined the relevant preparation(s) for the [facility]ORIAL specimen(s) and (ii) rendered or confirmed the diagnosis(es) . HOSPITAL LABORATORY . ?Cale w Cytometry DIAGNOSIS Normal immunophenotyping res ults. No monotypic B-cell population or phenotypically abnormal T-cell population or increase in blasts is detecte d. Electronically signed by: ??Aron Betancur MD Verified: ??07/29/2018 ?Hematopathologist Performed at: ??-[facility] Dept. of Pathology, [place], [place] DISCUSSION Blasts based on CD45 express ion and orthogonal light scatter, are not increased. The T-lymphocytes, CD56+ NK cells and B- lymphocytes comprise approx 82%, 6%, 12% of the gated population, respectively. The CD19 positive B-cells thomsa ve a polytypic expression of surface immunoglobulin light chain ([place]:Lambda ratio a t 1.3). The T-cells are an admixture of CD4+ and CD8+ T lymphocytes (ratio of 2.4). No loss or atypical intensity distributions are seen for any quintana T antigen (CD2, 3, 4+8, 5, 7). There is no increase in UJ19-vbhrxkfv/CD3-neg NK cells. Flow analysis is an ancillar y study. A definite diagnosis requires correlation with the morphologic features of this process and if necessary, correlation with other ancillary studies like immu nohistochemistry, enzyme cytochemistry and/or cyto/ molecular genetics. This test was developed and its performance neetu acteristics determined by the Clinical Flow Cytometry Lab oratory at [facility]. It has not been cleared [...] complexity clinic al laboratory testing. SPECIMEN PROCESSING [id number] Cells for immunophenotypic a nalysis were derived [...] Organization Address City/State/[place] [address] Differential, Automated (07/29/2018 11:09 AM EDT) athologist Signature Neutrophils % 50.5 % [facility] LABORATORY Neutr Abs (ANC) 3.96 1.70 - [facility] 6.10 [facility] x10(3)/[facility] LABORATORY Lymphocytes % 40.1 % [facility] LABORATORY Lymphocytes Abs 3.2 0.9 - 3.2 [facility] x10(3)/[facility] LABORATORY Monocytes % 5.2 % [facility] LABORATORY Monocyte Abs 0.4 0.3 - 0.9 [facility] x10(3)/[facility] LABORATORY Eosinophils % 3.6 % [facility] LABORATORY Eosinophils Abs 0.3 0.0 - 0.4 [facility] x10(3)/[facility] LABORATORY Basophils % 0.5 % [facility] LABORATORY Basophils Abs 0.0 0.0 - 0.1 [facility] x10(3)/[facility] LABORATORY Immature Gran % 0.10 % [facility] LABORATORY Comment: Immature granulocytes(IG's)percentage an d absolute count will include metamyelocytes, myelocytes, and promyelo cytes. Blood smears from CBCs yielding IG's will be scanned manually for concor dance. If this scan disagrees with the automated IG or if promyelocytes are not ed, a manual differential will be performed. Alfreda Gran Abs 0.01 0.00 - 0.04 x10(3)/[facility] Y [facility] LABORATORY Specimen Anatomical Collection Method Collection Time Receive d Time (Source) Location / / Volume Laterality Blood specimen 07/29/2018 11:09 9 (specimen) AM EDT 11:40 AM EDT Resulting Agency Comment Spec In Lab Zhang Almanza MD HEMATOLOGY ORDERABLES Performing Organization Address City/State/[place] [address] Hemogram (07/29/2018 11:09 AM EDT) P athologist Signature WBC 7.8 4.0 - 9.5 [place] [facility] x10(3)/[facility] LABORATORY RBC 4.65 4.00 - [place] [facility] 5.21 [facility] x10(6)/[facility] LABORATORY Hemoglobin 13.2 11.7 - [place] [facility] 15.5 gm/dL [facility] LABORATORY Hematocrit 39.0 35.7 - [place] [facility] 45.8 % [facility] LABORATORY MCV 83.9 82.6 - [facility] RAJ 94.4 [facility] LABORATORY MCH 28.4 27.1 - [place] [facility] 32.[address] [facility] LABORATORY MCHC 33.8 31.7 - [place] [facility] 35.0 gm/dL [facility] LABORATORY Platelets 353 145 - 357 [place] [facility] x10(3)/[facility] LABORATORY RDWSD 40.5 37.0 - [facility] 46.0 [facility] LABORATORY RDWCV 13.2 11.5 - [place] [facility] 14.1 % [facility] LABORATORY MPV 9.6 7.6 - 12.9 [facility] RAJ [facility] LABORATORY nRBC % Auto 0.0 % [facility] LABORATORY nRBC Abs Auto 0.000 0.000 - [place] [facility] 0.000 [facility] x10(3)/[facility] LABORATORY Specimen Anatomical Collection Method Collection Time Receive d Time (Source) Location / / Volume Laterality Blood specimen 07/29/2018 11:09 9 (specimen) AM EDT 11:40 AM EDT Resulting Agency Comment Spec In Lab Zhang Almanza MD HEMATOLOGY ORDERABLES Performing Organization Address City/State/[place] [address] (ABNORMAL) Iron and TIBC (07/29/2018 11:09 AM EDT) Analysis Performed At Patho logist Time Signature Iron 61 30 - 150 [place] [facility] mcg/dL [facility] LABORATORY TIBC 241 (L) 250 - 450 [place] [facility] mcg/dL [facility] LABORATORY Iron Saturation 25 20 - 50 % [facility] LABORATORY Specimen Anatomical Collection Method Collection Time Receive d Time (Source) Location / / Volume Laterality Blood specimen 07/29/2018 11:09 9 (specimen) AM EDT 11:40 AM EDT Resulting Agency Comment Spec In Lab Zhang Almanza MD CHEMISTRY ORDERABLES Performing Organization Address City/[facility]/ZIP Code Phon e Number [address] (ABNORMAL) Ferritin (07/29/2018 11:09 AM EDT) P athologist Signature Ferritin 151 (H) 15 - 150 [facility] ng/mL [facility] LABORATORY Comment: Pediatric reference ranges not verified at [facility], interpret with caution. Reference ranges for females greater keaton n 50 years of age approach values for men, i.e., 30-400 ng/mL. Specimen Anatomical Collection Method Collection Time Receive d Time (Source) Location / / Volume Laterality Blood specimen 07/29/2018 11:09 9 (specimen) AM EDT 11:40 AM EDT Resulting Agency Comment Spec In Lab Zhang Almanza MD CHEMISTRY ORDERABLES Performing Organization Address City/[facility]/ZIP Code Phon e Number [address] CRP, acute inflammation (07/29/2018 11:09 AM EDT) P athologist Signature CRP 4.0 <=4.9 mg/L [facility] LABORATORY Specimen Anatomical Collection Method Collection Time Receive d Time (Source) Location / / Volume Laterality Blood specimen 07/29/2018 11:09 9 (specimen) AM EDT 11:40 AM EDT Resulting Agency Comment Spec In Lab Zhang Almanza MD CHEMISTRY ORDERABLES Performing Organization Address City/[facility]/ZIP Code Phon e Number [address] Sedimentation rate (07/29/2018 11:09 AM EDT) athologist Signature Sed Rate 11 0 - 20 [facility] LABORATORY Specimen Anatomical Collection Method Collection Time Receive d Time (Source) Location / / Volume Laterality Blood specimen 07/29/2018 11:09 9 (specimen) AM EDT 11:40 AM EDT Resulting Agency Comment Spec In Lab Zhang Almanza MD HEMATOLOGY ORDERABLES Performing Organization Address City/[facility]/ZIP Code Phon e Number [address] Immunophenotyping Flow Cytometry (07/29/2018 11:09 AM EDT) Component Value Ref Test Analysis Performed At [facility] Range Method Time Signature Immunophenotyping See [place] Flow Comment [facility] LABORATORY Comment: When completed by the Pathologist, the F marlys Cytometry Report ([id number]) will display under the Pathology Result s section within [facility]. Specimen Anatomical Collection Method Collection Time Receive d Time (Source) Location / / Volume Laterality Specimen of 07/29/2018 11:09 07/29/2018 unknown material AM EDT 11:40 AM ED T (specimen) Resulting Agency Comment Spec In Lab Zhang Almanza MD HEMATOLOGY ORDERABLES Performing Organization Address City/[facility]/ZIP Code Phon e Number [address] Protein Electrophoresis, serum (07/29/2018 11:09 AM EDT) [facility] Method Time Signature Total Prot 7.1 6.1 - 8.0 [place] Elec gm/dL [facility] LABORATORY Albumin Elect 4.65 3.60 - 6.00 [place] gm/dL [facility] LABORATORY Alpha1-Globul 0.19 0.10 - 0.30 [place] in gm/dL [facility] LABORATORY Alpha2-Globul 0.72 0.40 - 0.90 [place] in gm/dL [facility] LABORATORY Beta Globulin 0.63 0.50 - 1.00 [place] gm/dL [facility] LABORATORY Gamma 0.90 0.50 - 1.30 [place] Globulin gm/dL [facility] LABORATORY M1 Band None None [place] Detected Detected [facility] LABORATORY Specimen Anatomical Collection Method Collection Time Receive d Time (Source) Location / / Volume Laterality Blood specimen 07/29/2018 11:09 9 (specimen) AM EDT 11:40 AM EDT Resulting Agency Comment Spec In Lab Zhang Almanza MD CHEMISTRY ORDERABLES Performing Organization Address City/[facility]/ZIP Code Phon e Number [address] (ABNORMAL) Immunoglobulins, Quantitative (07/29/2018 11:09 AM EDT) athologist Signature IgG 908 700 - 1,600 [facility] mg/dL [facility] LABORATORY Comment: Pediatric Reference Intervals obtained f rom the Caliper Reference Interval project. http://www.Squareknot.ca/caliperp roject/index.html IgA 173 70 - 400 mg/dL [facility] LABORATORY IgM 231 (H) 40 - 230 mg/dL [facility] LABORATORY Specimen Anatomical Collection Method Collection Time Receive d Time (Source) Location / / Volume Laterality Blood specimen 07/29/2018 11:09 9 (specimen) AM EDT 11:40 AM EDT Resulting Agency Comment Spec In Lab Zhang Almanza MD CHEMISTRY ORDERABLES Performing Organization Address [facility] Phon e Number [address] Free Light Chains, Serum (07/29/2018 11:09 AM EDT) athologist Signature [place] Free 1.50 0.81 - [facility] Light Chains 2.98 mg/dL [facility] LABORATORY Lambda Free 1.68 0.86 - [facility] Light Chains 1.99 mg/dL [facility] LABORATORY [place]/Lambda 0.8929 0.5000 - [facility] Free Light 2.4300 [facility] LABORATORY Comment: Please be advised that following [...] Almanza MD CHEMISTRY ORDERABLES Performing Organization Address City/[facility]/[place] [address] Lactate Dehydrogenase (07/29/2018 11:09 AM EDT) P athologist Signature LDH 215 110 - 220 [facility] unit/L [facility] LABORATORY Specimen Anatomical Collection Method Collection Time Receive d Time (Source) Location / / Volume Laterality Blood specimen 07/29/2018 11:09 9 (specimen) AM EDT 11:40 AM EDT Resulting Agency Comment Spec In Lab Zhang Almanza MD CHEMISTRY ORDERABLES Performing Organization Address City/State/[place] [address] documented in this encounter Visit Diagnoses Diagnosis Leukocytosis, unspecified type documented in this encounter Care Teams Vice President Of Operations Relationship Specialty Start Date End Date Huyen Ramon DO PCP - General Family Medicine 04/05/[address] [place] [address] documented as of this encounter
--- OUTSIDE RECORDS SUMMARY | 2022-02-08 09:01 | XMS_ITS | Encounter Summary ---
:1970 Author Organization [facility] [place] [address] Care Team Providers Name Role Phone Sushil Loya MD Primary Care Provider [phone] Encounter Details Date Type Department Care Team Description 09/15/2015 [facility] [place] [address] Social History Tobacco Use Types Packs/Day [...] TH Visit (TeleHealth) General Surgery Rylie Rea, RECREATION INSTRUCTOR [facility] [place] [address] Keiry Chatterjee, RD [facility] [place] [address] documented as of this encounter Visit Diagnoses Not on filedocumented in this encounter Care Teams Dredge Boat Engineer Relationship Specialty Start Date End Date Sushil Loya MD PCP - General General Internal Medicine 09/13/15 06/01/[address] [place] [place] [address] documented as of this encounter
--- OUTSIDE RECORDS SUMMARY | 2022-02-08 09:01 | XMS_ITS | Encounter Summary ---
:1970 Author Organization [facility] [place] [address] Care Team Providers Name Role Phone Sushil Loya MD Primary Care Provider [phone] Reason for Visit Diagnostic Test (Routine) - Closed Specialty Diagnoses / Procedures Referred By Contact Refer red To Contact Radiology Diagnoses Flushing Diarrhea Yarelis Guzman MD [facility] Rad Nuclear Med Procedures NM OctreoScan [facility] Drive [place] [address] [place] [address] Referral ID Status Reason Start Date Expiration Date Visits V isits Requested Authorized [id number] Closed Specialty 10/01/2015 09/30/2016 1 1 Service Requested Encounter Details Date Type Department Care Team Description 10/14/2015 Hospital Encounter Nuclear Medicine at [facility] guan Mary Hitchcock MD [facility] [place] [address] ENDOCRINOLOGY DEPT [phone] [place], [place] [address] (Wo rk) Social History Tobacco [...] TH Visit (TeleHealth) General Surgery Rylie Rea, TUG MASTER [facility] [place] [address] Keiry Chatterjee, RD [facility] [place] [address] documented as of this encounter Procedures Procedure [...] on filedocumented in this encounter Care Teams Designer Writer Relationship Specialty Start Date End Date Sushil Loya MD PCP - General General Internal Medicine 09/13/[address] [place] [address] documented as of this encounter
--- OUTSIDE RECORDS SUMMARY | 2022-02-08 09:01 | XMS_ITS | Encounter Summary ---
:1970 Author Organization [place] [address] Care Team Providers Name Role Phone Osiris Garcia APRN Primary Care Provider Reason for Visit Reason Comments GI Problem Consultation (Routine) - Closed Specialty Diagnoses / Procedures Referred By Contact Refer red To Contact Gastroenterology Diagnoses IBS-D Perez Connell [facility] Gastro 4l Procedures Consult V, [facility] [address] [place] [id number] Referral ID Status Reason Start Date Expiration Date Visits Requ ested Visits Authorized [id number] Closed 08/08/2017 08/08/2018 1 1 Encounter Details Date Type Department Care Team Description 10/24/2017 Office Visit Gastroenterology at [facility] Sieglinger, Diarrhea, unspecified type; [facility] Zora Luther APRN Dysphagia, unspecified type; [place] [address] [facility] Gastroesophageal reflux dise ase, esophagitis presence not specified [phone] [place] [address] Social History Tobacco Use Types Packs/Day Years [...] Zhang APRN - 10/24/2017 2:00 PM EDT VOCATIONAL REHABILITATION CONSULTANT: Essie Zhang APRN PCP: Osiris Garcia APRN [...] this 61 minute visit were spent in [id number] discussion and counseling the patient as detailed per above. Signed, Essie Zhang APRN 10/25/17 7:18 AM Section of Gastroenterology & Hepatology [facility] documented in this encounter Plan of Treatment Upcoming Encounters Date Type Specialty Care Team Description 03/10/2022 TH Visit (TeleHealth) General Surgery Rylie Rea, ENRIQUE [facility] [place] [address] Keiry Chatterjee, SAM [facility] [place] [place] [address] Scheduled Orders Name Type Priority Associated Diagnoses [...] specified documented in this encounter Care Teams Dietary Server Relationship Specialty Start Date End Date Osiris Garcia APRN PCP - General Internal Medicine 06/02/16 04/04/[address] [place] [place] [address] documented as of this encounter
--- OUTSIDE RECORDS SUMMARY | 2022-02-08 09:01 | XMS_ITS | Encounter Summary ---
:1970 Author Organization [place] [address] Care Team Providers Name Role Phone Sushil Loya MD Primary Care Provider [phone] Encounter Details Date Type Department Care Team Description 10/20/2015 Telephone Endocrinology at [facility] C Estefania Cooper, [place] [address] Social History Tobacco Use Types Packs/Day Years Used Date Never Smoker Sex Assigned at Date Recorded Not on file documented as of this encounter Miscellaneous Notes Telephone Encounter - Yarelis Guzman MD - 10/20/2015 4:40 PM EDT Responded to pt via [employer] message (myD encounter dated 10/15/15) that her [...] TH Visit (TeleHealth) General Surgery Rylie Rea, PHARMACY DIRECTOR [facility] [place] [address] [facility] [place] [address] documented as of this encounter Visit Diagnoses Not on filedocumented in this encounter Care Teams Bait Digger Relationship Specialty Start Date End Date Sushil Loya MD PCP - General General Internal Medicine 09/13/15 06/01/[address] [place] [address] documented as of this encounter
--- OUTSIDE RECORDS SUMMARY | 2022-02-08 09:01 | XMS_ITS | Encounter Summary ---
:1970 Author Organization [facility] [place] [address] Care Team Providers Name Role Phone Osiris Garcia APRN Primary Care Provider Reason for Visit Reason Comments Hypertension Encounter Details Date Type Department Care Team Description 06/15/2016 Office Visit Nephrology [place], [place] [facility] [place] Boothe MD pressure reading with [facility] [place] [phone] NEPHROLOGY DEPT. [phone] [place], [place] [address] Social History Tobacco Use Types [...] 8:00 AM EDT Hypertension/Nephrology Consultation Monisha Das [id number] 1970 ID: [id number] y.o. old female seen [...] HUNTER-1 antibody, SS-A antibody, Sm ([place]) antibody, DATA CONTROL CLERK antibody, Scl-70 (Scleroderma) IgG antibody, anti-double stranded [...] four children (21,21,15,11). 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 She does not smoke. Rare alcohol. She [...] obtained; the results will be scanned into [facility] She had microscopic hematuria on a urinalysis [...] DIASTOLIC 83 PULSE 85 RESPIRATIONS 18 Height (Beninese) 5' 5 Height (Metric) 165.1 cm Weight (Beninese) 239 lbs 13 oz Weight (Metric) 108.773 [...] Visit (TeleHealth) General Surgery Rylie Rea, [place] [address] Keiry Chatterjee, SAM [facility] [place] [address] documented as of this encounter Procedures Procedure [...] U Albumin/Cre Ratio (06/15/2016 9:50 AM EDT) [facility] Method Time Signature Alb/Cr Ratio, Not Calculated 0 - 29 ROSETTE Random mcg/mg Cr [facility] Comment: Reference Ranges: <30 mcg/mg: Normal [...] 362 U Albumin Conc, Random <3.0 mg/L [facility] U Creatinine 54 mg/dL [facility] Specimen Anatomical Collection Method Collection Time Receive d Time (Source) Location / / Volume Laterality Urine specimen 06/15/2016 9:50 AM 017 (specimen) EDT 11:57 AM EDT Resulting Agency Comment Spec In Lab Oscar Teague MD URINE ORDERABLES Performing Organization Address City/State/Z[place] [address] Differential, Automated (06/15/2016 9:37 AM EDT) athologist Signature Neutrophils % 60.7 % [facility] Neutr Abs (ANC) 5.75 1.70 - [facility] 6.10 [facility] x10(3)[facility] LABORATORY Lymphocytes % 29.7 % [facility] Lymphocytes Abs 2.8 0.9 - 3.2 [facility] x10(3)[facility]ORY Monocytes % 5.9 % [facility] Monocyte Abs 0.6 0.3 - 0.9 [facility] x10(3)[facility] LABOR[facility]ORY Eosinophils % 2.8 % [facility] Eosinophils Abs 0.3 0.0 - 0.4 [facility] x10(3)[facility]ORY Basophils % 0.6 % [facility] Basophils Abs 0.1 0.0 - 0.1 [facility] x10(3)/[facility] LABORATORY Immature Gran % 0.30 % [facility] Comment: Immature granulocytes(IG's)percentage an d absolute count will include metamyelocytes, myelocytes, and promyelo cytes. Blood smears from CBCs yielding IG's will be scanned manually for concor dance. If this scan disagrees with the automated IG or if promyelocytes are not ed, a manual differential will be performed. Alfreda Gran Abs 0.03 0.00 - 0.04 x10(3)/[facility] MAR Y [facility] Specimen Anatomical Collection Method Collection Time Receive d Time (Source) Location / / Volume Laterality Blood specimen 06/15/2016 9:37 AM 017 9:42 (specimen) EDT AM EDT Resulting Agency Comment Spec In Lab Oscar Teague MD HEMATOLOGY ORDERABLES Performing Organization Address City/State/[place] [address] (ABNORMAL) Hemogram (06/15/2016 9:37 AM EDT) P athologist Signature WBC 9.5 4.0 - 9.5 [facility] x10(3)/[facility] RBC 4.91 4.00 - [facility] 5.21 [facility] x10(6)/[facility]ORY Hemoglobin 13.6 11.7 - [facility] 15.[facility] gm/dL [facility] Hematocrit 40.6 35.7 - [facility] 45.8 % [facility] MCV 82.7 82.6 - [facility] 94.4 [facility] MCH 27.7 27.1 - [facility] 32.0 pg [facility] MCHC 33.5 31.7 - [facility] 35.0 gm/dL [facility] Platelets 400 (H) 145 - 357 [facility] x10(3)/[facility]ATORY RDWSD 39.4 37.0 - [facility] 46.0 [facility]ORY RDWCV 13.0 11.5 - [facility] RAJ 14.1 % [facility] MPV 9.2 7.6 - 12.9 [facility] LABORATORY nRBC % Auto 0.0 % [facility] nRBC Abs Auto 0.000 0.000 - [facility] 0.000 [facility] x10(3)/[facility]OR[facility]ORY Specimen Anatomical Collection Method Collection Time Receive d Time (Source) Location / / Volume Laterality Blood specimen 06/15/2016 9:37 AM 017 9:42 (specimen) EDT AM EDT Resulting Agency Comment Spec In Lab Oscar Teague MD HEMATOLOGY ORDERABLES Performing Organization Address City/State/Z[place] [address] Renin Activity (06/15/2016 9:37 AM EDT) P athologist Signature Renin Activity 19 ng/ml/hr [facility] Comment: REFERENCE VALUE------ (Peripheral vein specimen) Na-deplete, upright: ??Mean: 5.9 ??Range: 2.9-10.8 Na-replete, upright: ??Mean: 1.0 ??Range: < or =0.6-3.0 ADDITIONAL INFORMATIO N Testing performed by Liquid Chromatograp hy-Tandem Mass Spectrometry (LC-MS/MS). This test was developed and its performa nce characteristics determined by [facility] in a manner co nsistent with CLIA requirements. This test has not been yoav ared or approved by the U.S. Food and Drug Administration. Test Performed by: [address] [address] Specimen Anatomical Collection Method Collection Time Receive d Time (Source) Location / / Volume Laterality Blood specimen 06/15/2016 9:37 AM 017 (specimen) EDT 10:36 AM EDT Resulting Agency Comment Spec In Lab Oscar Teague MD CHEMISTRY ORDERABLES Performing Organization Address City/State/Z[place] [address] Aldosterone (06/15/2016 9:37 AM EDT) P athologist Signature Aldosterone 11 <=21 ng/dL [facility] Comment: ADDITIONAL INFORMATIO N Reference range for patients 11 years an d older is based on upright A.M. collection from subjects wi thout sodium restrictions. This test was developed and its performa nce characteristics determined by [facility] in a manner co nsistent with CLIA requirements. This test has not been yoav ared or approved by the U.S. Food and Drug Administration. Test Performed by: [facility] - [facility] [address] [place] [address] Specimen Anatomical Collection Method Collection Time Receive d Time (Source) Location / / Volume Laterality Blood specimen 06/15/2016 9:37 AM 017 (specimen) EDT 10:36 AM EDT Resulting Agency Comment Spec In Lab Oscar Teague MD CHEMISTRY ORDERABLES Performing Organization Address City/State/Z[place] [address] (ABNORMAL) Cystatin C (06/15/2016 9:37 AM EDT) athologist Signature Cystatin C 1.16 (H) 0.62 - [facility] 1.07 mg/L [facility] Comment: Test Performed by: [facility] - [facility] [address] [place] [address] Cystatin C eGFR 63 >60 mL/min/BSA [facility] Comment: ADDITIONAL INFORMATIO N Cystatin C-based eGFR may differ substan tially from creatinine-based eGFR in patients with a bnormal muscle mass or acutely changing renal function. ??Pl ease interpret together with relevant clinical features . Test Performed by: [facility] - [address] [address] Specimen Anatomical Collection Method Collection Time Receive d Time (Source) Location / / Volume Laterality Blood specimen 06/15/2016 9:37 AM 017 (specimen) EDT 11:50 AM EDT Resulting Agency Comment Spec In Lab Oscar Teague MD CHEMISTRY ORDERABLES Performing Organization Address City/State/[place] [address] Albumin Level (06/15/2016 9:37 AM EDT) athologist Signature Albumin 4.3 3.2 - 5.2 ROSETTE RAJ gm/dL [facility] Specimen Anatomical Collection Method Collection Time Receive d Time (Source) Location / / Volume Laterality Blood specimen 06/15/2016 9:37 AM 017 9:42 (specimen) EDT AM EDT Resulting Agency Comment Spec In Lab Oscar Teague MD CHEMISTRY ORDERABLES Performing Organization Address City/[facility]/[place] [address] PTH (06/15/2016 9:37 AM EDT) athologist Signature PTH 37 15 - 65 ROSETTE SANTOSRAJ pg/mL [facility] Specimen Anatomical Collection Method Collection Time Receive d Time (Source) Location / / Volume Laterality Blood specimen 06/15/2016 9:37 AM 017 9:42 (specimen) EDT AM EDT Resulting Agency Comment Spec In Lab Oscar Teague MD CHEMISTRY ORDERABLES Performing Organization Address City/[facility]/[place] [address] Phosphorus (06/15/2016 9:37 AM EDT) athologist Signature Phosphorus 3.2 2.5 - 4.5 ROSETTE SANTOSRAJ mg/dL [facility] Specimen Anatomical Collection Method Collection Time Receive d Time (Source) Location / / Volume Laterality Blood specimen 06/15/2016 9:37 AM 017 9:42 (specimen) EDT AM EDT Resulting Agency Comment Spec In Lab Oscar Teague MD CHEMISTRY ORDERABLES Performing Organization Address City/[facility]/[place] [address] (ABNORMAL) Basic Metabolic Panel (non-fasting) (06/15/2016 9:37 AM EDT) athologist Signature Glucose Lvl 108 65 - 199 [facility] mg/dL [facility] Comment: Diabetes: >=200 mg/dL plus symp toms BUN 18 8 - 18 mg/dL [facility] Creatinine 0.87 0.70 - 1.20 mg/dL [facility] Comment: Please note that the pediatric reference intervals supplied above were not validated [place] [facility] [place] Results from pediatri c patients should be interpreted in conjunction to the patient's age, height and muscle mass. Sodium 139 135 - 145 mmol/L [facility] Potassium 3.4 (L) 3.5 - 5.0 mmol/L [facility] Comment: Please note: ??Patients with WBC >100,00 0 may have falsely elevated Potassium levels. ??For accurate Potassium quantif ication in these patients send serum separator tube (gold top) for subsequent determinations. ??Contact the Clinical Chemistry Laboratory if there are any qu estions. Chloride 101 98 - 107 mmol/L [facility] CO2 23 22 - 31 mmol/L [facility] Anion Gap 15 5 - 15 mmol/L [facility] Calcium 9.4 8.5 - 10.5 mg/dL [facility] Estimated GFR >60 >=60 [facility] Comment: This estimated GFR (eGFR) [...] the following links into your internet browser. [email or web address] Specimen Anatomical Collection Method Collection Time Receive d Time (Source) Location / / Volume Laterality Blood specimen 06/15/2016 9:37 AM 017 9:42 (specimen) EDT AM EDT Resulting Agency Comment Spec In Lab Oscar Teague MD CHEMISTRY ORDERABLES Performing Organization Address City/State/Z[place] [address] documented in this encounter Visit Diagnoses Diagnosis Elevated blood pressure reading with [facility] gnosis of hypertension documented in this encounter Care Teams President Of [place] Relationship Specialty Start Date End Date Osiris Garcia APRN PCP - General Internal Medicine 06/02/16 04/04/[address] [place] [address] documented as of this encounter
--- OUTSIDE RECORDS SUMMARY | 2022-02-08 09:01 | XMS_ITS | Encounter Summary ---
:1970 Author Organization [facility] [place] [address] Care Team Providers Name Role Phone Sushil Loya MD Primary Care Provider [phone] Reason for Visit Consultation (Routine) - Closed Specialty Diagnoses / Procedures Referred By Contact Refer red To Contact Endocrinology Diagnoses abnormal thyroid blood test Lexie Hilario MD [facility] [address] [place] [address] [place] [id number] Referral ID Status Reason Start Date Expiration Date Visits V isits Requested Authorized [id number] Closed Consult, 07/27/2015 07/26/2016 1 1 [facility] Encounter Details Date Type Department Care Team Description 09/13/2015 Office Visit Endocrinology at [facility] Shyann Kelly, Marylou's thyroiditis; [facility] MD Yarelis Chronic diarrhea; [facility] Weight gain; [place] [address] CENTER Menstrual irregularity; [phone] ENDOCRINOLOGY Hirsutism; DEPT [place], [place] [address] Social History Tobacco Use Types [...] In May 2015, in workup by a livestock farmworker for fatigue and weight gain, she was [...] be precancerous. She was told by the electronics installer that the appearance of her colon was not consistent with Crohn's disease or ulcerative colitis, but could be allergic; she is seeing an yield analyst next month to address this. Has LE [...] is currently under the care of a veneer stock grader (Dr. 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 The high level of TPO antibodies themselves [...] muscle weakness, I will screen her for Paonia's syndrome. We will start with [place] salivary [...] very active Marylou's thyroiditis. YARELIS KELLY MD Chief Information Security Officerastrochemist Section of Endocrinology [facility] documented in this encounter Plan of Treatment Upcoming Encounters Date Type Specialty Care Team Description 03/10/2022 TH Visit (TeleHealth) General Surgery Rylei Rea, BRIQUETTING MACHINE OPERATOR [facility] [place] [address] Keiry Chatterjee, RD [facility] [place] [address] documented as of this encounter Procedures Procedure [...] athologist Signature Jayjay Saliva 97 <100 ng/dL [facility] LABORATORY Comment: REVISED RESULTS Due to a software system error, report r evised to include the reference range. The result value an d associated flagging remain unchanged. PREVIOUSLY REPORTED A S 97 (Reported 09/24/2015 15:10) Test Performed by: [place] [address] Hand Former Helper: Jun Blair II, M.D., Ph.D. Test Performed by: [place] [address] Hand Former Helper: Jun Blair II, M.D., Ph.D. Corrected from 97 ng/dL [NA] on 10/21/15 04:47 by Contributor_system, DINGESS. Specimen Anatomical Collection Method Collection Time Receive d Time (Source) Location / / Volume Laterality Specimen of 09/16/2015 11:03 09/20/2015 2:38 unknown material PM EDT PM EDT (specimen) Yarelis Kelly MD BODY FLUIDS AND STOOLS ORDER DAVIAN Performing Organization Address City/State/ZIP Code [place] [address] Cortisol, saliva (09/15/2015 11:03 PM EDT) athologist Signature Jayjay Saliva <50 <100 ng/dL [facility] LABORATORY Comment: REVISED RESULTS Due to a software system error, report r evised to include the reference range. The result value an d associated flagging remain unchanged. PREVIOUSLY REPORTED A S <50 (Reported 09/24/2015 15:11) Test Performed by: [facility] [address] [place] [address] Hand Former Helper: Jun Blair II, M.D., Ph.D. Test Performed by: [facility] [address] [address] Hand Former Helper: Jun Blair II, M.D., Ph.D. Corrected from <50 ng/dL [NA] on 6 04:40 by Contributor_system, DINGESS. Specimen Anatomical Collection Method Collection Time Receive d Time (Source) Location / / Volume Laterality Specimen of 09/15/2015 11:03 09/20/2015 2:38 unknown material PM EDT PM EDT (specimen) Yarelis Kelly MD BODY FLUIDS AND STOOLS ORDER DAVIAN Performing Organization Address [facility] Phon e Number [address] 17-Hydroxyprogesterone (09/13/2015 11:09 AM EDT) athologist Signature 17-Hydroxyprog <40 ng/dL [facility] LABORATORY Comment: REFERENCE VALUE------ < 80 (Follicular) <285 (Luteal) < 51 (Postmenopausal) Test Performed by: [facility] [address] [place] [address] Hand Former Helper: Jun Blair II, M.D., Ph.D. Specimen Anatomical Collection Method Collection Time Receive d Time (Source) Location / / Volume Laterality Blood specimen 09/13/2015 11:09 6 (specimen) AM EDT 12:04 PM EDT Resulting Agency Comment Spec In Lab Yarelis Kelly MD CHEMISTRY ORDERABLES Performing Organization Address [facility] Phon e Number [address] Androstenedione (09/13/2015 11:09 AM EDT) athologist Signature Androstenedione 59 30 - 200 [facility] ng/dL [facility]ORY Comment: [facility] [address] [place] [address] Hand Former Helper: Jun Blair II, M.D., Ph.D. Specimen Anatomical Collection Method Collection Time Receive d Time (Source) Location / / Volume Laterality Blood specimen 09/13/2015 11:09 6 (specimen) AM EDT 12:04 PM EDT Resulting Agency Comment Spec In Lab Yarelis Kelly MD CHEMISTRY ORDERABLES Performing Organization Address City/[facility]/ZIP Code Phon e Number [address] DHEA-sulfate (09/13/2015 11:09 AM EDT) P athologist Signature DHEAS 56.1 35.4 - [facility] 256.0 [facility] LABORATORY Specimen Anatomical Collection Method Collection Time Receive d Time (Source) Location / / Volume Laterality Blood specimen 09/13/2015 11:09 6 (specimen) AM EDT 11:24 AM EDT Resulting Agency Comment Spec In Lab Yarelis Kelly MD CHEMISTRY ORDERABLES Performing Organization Address City/[facility]/ZIP Code Phon e Number [address] Testosterone, total and free (09/13/2015 11:09 AM EDT) P athologist Signature Testo Total 9 2 - 45 [facility] ng/dL [facility] LABORATORY Comment: For more information on this test, go to http://education.[employer].O&P Pro/fa q/ TotalTestosteroneLCMSMS Testo Free 1.2 0.1 - 6.4 pg/mL [facility] LABORATORY Comment: Test Performed by Sandra Noland, [employer] [facility], [id number] [place] [address] 2014 04 Saleem Ruff M.D., Ph.D., Director [facility] , [place] [id number] Specimen Anatomical Collection Method Collection Time Receive d Time (Source) Location / / Volume Laterality Blood specimen 09/13/2015 11:09 6 (specimen) AM EDT 11:58 AM EDT Resulting Agency Comment Spec In Lab Yarelis Kelly MD CHEMISTRY ORDERABLES Performing Organization Address [facility] Phon e Number [address] Estradiol (09/13/2015 11:09 AM EDT) P athologist Signature Estradiol 36 pg/mL [facility]ORY Comment: Reference ranges: Males: ??Adult: ? [...] Kelly MD CHEMISTRY ORDERABLES Performing Organization Address City/[facility]/ZIP Code Phon e Number [address] Luteinizing Hormone (09/13/2015 11:09 AM EDT) P athologist Signature LH 5.1 mlU/ML [facility] LABORATORY Comment: Reference ranges: ?? Females ?? [...] Kelly MD CHEMISTRY ORDERABLES Performing Organization Address [facility]/ZIP [facility] [place] [address] Follicle Stimulating Hormone (09/13/2015 11:09 AM EDT) P athologist Signature FSH 7.8 mlU/ML [facility] LAB[facility] Comment: Reference Ranges: Females: Follicular: ? 3.5-12.5 mIU/mL Ovulation: ?4.7-21.5 mIU/mL Luteal: ? 1.7-7.7 mIU/mL Postmenopausal: 25.8-134.8 mIU/mL Specimen Anatomical Collection Method Collection Time Receive d Time (Source) Location / / Volume Laterality Blood specimen 09/13/2015 11: 6 (specimen) AM EDT 11:24 AM EDT Resulting Agency Comment Spec In Lab Yarelis Kelly MD CHEMISTRY ORDERABLES Performing Organization Address [facility] [place] [address] (ABNORMAL) Chromogranin A (09/13/2015 11:09 AM EDT) Analysis Performed At Patho logist Time Signature Chromogranin A 625 (H) <93 ng/mL [facility] LAB[facility] Comment: Impaired renal or hepatic function or t reatment with proton pump inhibitors may result in artifactua l elevations of Chromogranin A. ADDITIONAL INFORMATIO N The testing method is a homogeneous time -resolved immunofluorescent assay. Analyte Specific Reagent: This test was developed and its performa nce characteristics determined by [facility]. It has not be en cleared or approved by the U.S. Food and Drug Admin istration. Values obtained with different assay met hods or kits may be different and cannot be used interchange ably. Test results cannot be interpreted as ab solute evidence for the presence or absence of malignant dis ease. Test Performed by: [facility] [place] [address] Hand Former Helper: Jun Blair II, M.D., Ph.D. Specimen Anatomical Collection Method Collection Time Receive d Time (Source) Location / / Volume Laterality Blood specimen 09/13/2015 11: 6 (specimen) AM EDT 12:04 PM EDT Resulting Agency Comment Spec In Lab Yarelis Kelly MD CHEMISTRY ORDERABLES Performing Organization Address City/[facility]/[place] [address] Vasoactive Intestinal Peptide (VIP) (09/13/2015 11:09 AM EDT) P athologist Signature VIP <50 <75 pg/mL [facility] Comment: Test Performed by: [facility] [address] [place], [place] [id number] Hand Former Helper: Jun Blair II, M.D., Ph.D. Specimen Anatomical Collection Method Collection Time Receive d Time (Source) Location / / Volume Laterality Blood specimen 09/13/2015 11:09 6 (specimen) AM EDT 12:04 PM EDT Resulting Agency Comment Spec In Lab Yarelis Kelly MD CHEMISTRY ORDERABLES Performing Organization Address City/[facility]/ZIP [facility] Phon e Number [address] T3 Total (09/13/2015 11:09 AM EDT) P athologist Signature T3, Total 97 75 - 170 [facility] Specimen Anatomical Collection Method Collection Time Receive d Time (Source) Location / / Volume Laterality Blood specimen 09/13/2015 11:09 6 (specimen) AM EDT 11:24 AM EDT Resulting Agency Comment Spec In Lab Yarelis Kelly MD CHEMISTRY ORDERABLES Performing Organization Address City/[facility]/ZIP Code Phon e Number [address] T4, free (09/13/2015 11:09 AM EDT) P athologist Signature Free T4 1.04 0.93 - 1.70 ROSETTE ANTHONY ng/dL [facility] LABOR[facility]ORY Specimen Anatomical Collection Method Collection Time Receive d Time (Source) Location / / Volume Laterality Blood specimen 09/13/2015 11:09 6 (specimen) AM EDT 11:24 AM EDT Resulting Agency Comment Spec In Lab Yarelis Kelly MD CHEMISTRY ORDERABLES Performing Organization Address City/[facility]/ZIP Code Phon e Number [address] TSH (09/13/2015 11:09 AM EDT) P athologist Signature TSH 2.69 0.27 - 4.20 ROSETTE ANTHONY mcIU/mL [facility] LABOR[facility]ORY Specimen Anatomical Collection Method Collection Time Receive d Time (Source) Location / / Volume Laterality Blood specimen 09/13/2015 11:09 6 (specimen) AM EDT 11:24 AM EDT Resulting Agency Comment Spec In Lab Yarelis Kelly MD CHEMISTRY ORDERABLES Performing Organization Address City/[facility]/[place] [address] documented in this encounter Visit Diagnoses Diagnosis Marylou's thyroiditis Chronic lymphocytic thyroiditis Chronic diarrhea Diarrhea Weight gain Abnormal weight gain Menstrual irregularity Irregular menstrual cycle Hirsutism [place] documented in this encounter Care Teams Rn Surgery Relationship Specialty Start Date End Date Sushil Loya MD PCP - General General Internal Medicine 09/13/15 06/01/16 [address] [place] [address] documented as of this encounter
--- OUTSIDE RECORDS SUMMARY | 2022-02-08 09:01 | XMS_ITS | Encounter Summary ---
:1970 Author Organization [facility] [place] [address] Care Team Providers Name Role Phone Osiris Garcia APRN Primary Care Provider Reason for Visit Reason Comments Allergies Consultation (Routine) - Closed Specialty Diagnoses / Procedures Referred By Contact Refer red To Contact Allergy Diagnoses food allergy, chronic diarrhea Sushil Loya MD [facility] Allergy [address] [place] [phone] Referral ID Status Reason Start Date Expiration Visits Visits Date Requested Authorized [id number] Closed Connection 11/13/2016 11/13/2017 1 1 Center Encounter Details Date Type Department Care Team Description 01/17/2017 Office Visit Allergy at [facility] Irma Schroeder, Marylou's disease; [facility] Chronic urticaria; [facility] Flushing; [place], [place] CENTER Diarrhea, unspecified type; [address] ALLERGY AND Lymphocytosis; [phone] IMMUNOLOGY Elevated blood pressure reading; [place], [place] [address] Chronic rhinitis, unspecified type; [phone] Conjunctivitis of both eyes, unspecified conjunctivitis type [...] Schedule a follow up appointment with your slps - Start Zyrtec 10mg once daily - [...] Summary of outside records: June 17, 2015, [facility]. Surgical pathology report. Duodenal mucosa with [...] 10/2016 she had acute diarrhea while in [place] with watery stools. Seen in ED and [...] use. 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 Lives in a house with a woodstove. [...] surgical history were reviewed and updated in [facility]. Allergies: Atropine Medications: Outpatient Prescriptions Marked as [...] hickory, maple, oak, pine, poplar, eastern sycamore; [place] pollens: cocklebur, mugwort, pigweed, giant ragweed, sheep [...] and bring to follow-up appointment -Follow-up with slps for management of thyroid disease - recommend [...] or nasal steroid spray ie Nasacort per client care specialist's recommendations. # Elevated WBC and lymphocytosis on labs 10/2016 - Will check CBC with diff to monitor trend. If persistently elevated consider hematology referral for further evaluation. # Elevated blood pressure - No history of hypertension - Recommend continued monitoring and follow up with primary provider for further evaluation and management of elevated blood pressure Orders Placed This Encounter Procedures ??? Celiac Sero [place] ??? CBC (with Diff) ??? Comprehensive metabolic [...] TH Visit (TeleHealth) General Surgery Rylie Rea, METAL DRAWER [facility] [place] [address] Keiry Chatterjee, RD [facility] [place] [address] documented as of this encounter Procedures Procedure [...] type documented in this encounter Care Teams Academic Coach Relationship Specialty Start Date End Date Osiris Garcia APRN PCP - General Internal Medicine 06/02/16 04/04/[address] [place] [address] documented as of this encounter
--- OUTSIDE RECORDS SUMMARY | 2022-02-08 09:01 | XMS_ITS | Encounter Summary ---
:1970 Author Organization [facility] [place] [address] Care Team Providers Name Role Phone Osiris Garcia APRN Primary Care Provider Encounter Details Date Type Department Care Team Description 12/05/2017 Hospital Encounter [facility]ology at [facility] [place] [address] [facility] [phone] CENTER GASTROENTEROLOGY DEPT. [place], [place] [address] Social History Tobacco Use Types [...] to be checked. Sunday-Sunday Same Day Endo [phone]-[id number] Otherwise contact [phone] and ask to speak to the promotions manager middle school professional Follow up care is a pryor part [...] Narayan MD - 12/05/2017 7:04 PM EDT [facility] Operative Note Patient Name: Monisha Das : [id number] MR#: [id number] Case Date: 12/05/2017 Surgeon: Surgeon(s) and Role: [...] TH Visit (TeleHealth) General Surgery Rylie Rea, UNISAW OPERATOR [facility] [place] [address] Keiry Chatterjee, RD [facility] [place] [address] documented as of this encounter Procedures Procedure [...] PM 8 7:53 EDT PM EDT Narrative [facility] OR - 12/05/2017 7:53 PM EDT Specimen requisition ordered. ??Separate Pathology report to follow Resulting Agency Comment Spec In Lab Luther Narayan MD PATHOLOGY/CYTOLOGY ORDERABLE S Performing Organization Address [facility] [place] [address] Specimen to Pathology (12/05/2017 7:33 PM EDT) Specimen Anatomical Collection Method Collection Time Receive d Time (Source) Location / / Volume Laterality AP Specimen 12/05/2017 7:33 PM 8 7:53 EDT PM EDT Narrative [facility] - 12/05/2017 7:53 PM EDT Specimen requisition ordered. ??Separate Pathology report to follow Resulting Agency Comment Spec In Lab Luther Narayan MD PATHOLOGY/CYTOLOGY ORDERABLE S Performing Organization Address [facility] [place] [address] Specimen to Pathology (12/05/2017 7:33 PM EDT) Specimen Anatomical Collection Method Collection Time Receive d Time (Source) Location / / Volume Laterality AP Specimen 12/05/2017 7:33 PM 8 7:53 EDT PM EDT Narrative [facility] - 12/05/2017 7:53 PM EDT Specimen requisition ordered. ??Separate Pathology report to follow Resulting Agency Comment Spec In Lab Luther Narayan MD PATHOLOGY/CYTOLOGY ORDERABLE S Performing Organization Address [facility] [place] [address] Surgical Pathology Report (12/05/2017 6:38 PM EDT) Component Value Ref Test Analysis Performed At [facility] Method Time Signature Surgical [id number] ? Location: 4T; EA06; A [facility] Pathology [place] Report The signing pathologist has (i) examined [...] Rodriguez MD Verified: ??12/11/2017 ?Pathologist Performed at: ??-[facility] Dept. of Pathology, [place], [place] CLINICAL INFORMATION Specimen Submitted: A - [...] Organization Address City/State/ZIP [place] [address] UPPER GI ENDOSCOPY (12/05/2017 6:29 PM EDT) Component Value Ref Test Analysis Performed At [facility] Range Method Time Signature UPPER GI [facility] ENDOSCOPY Endoscopy Procedure Date: 12/05/2017 6:29 PM ? Patient Name: Monisha Das ? Date of : 1970 ? Age: 46 ? Order #: [id number] ? Instrument Name: [id number] ? Procedure: ? Upper GI endoscopy Indications: [...] Laterality 12/05/2017 6:29 PM EDT Osiris Garcia UNISAW OPERATOR GENERAL SURGICAL ORDERABLES Performing Organization Address City/State/ZIP Code Phon e Number [facility] UPPER EUS-ENDOSCOPIC ULTRASOUND (12/05/2017 6:28 PM EDT) Component Value Ref Test Analysis Performed Pathologis t Range Method Time At [facility] ENDOSCOPIC Endoscopy ULTRASOUND _ Procedure Date: 12/05/2017 6:28 PM ? Patient Name: Monisha Das ? Date of : 1970 ? Age: 46 ? Order #: [id number] ? Instrument Name: [id number] ? Procedure: ? Upper EUS Indications: ? [...] Component Value Ref Test Analysis Performed At [facility] Method Time Signature COLONOSCOPY [facility] Endoscopy Procedure Date: 12/05/2017 6:27 PM ? Patient Name: Monisha Das ? Date of : 1970 ? Age: 46 ? Order #: [id number] ? Instrument Name: -[id number] ? Procedure: ? Colonoscopy Indications: ? Chronic [...] the physician, mihai mobley ? nurse, the field automobile adjuster and e ? sound recording technician. The procedure was ? verified in [...] was evaluat ed using ? the BBPS ([place] Bowel Prepar ation ? Scale) with scores [...] done by the physician, nurse and ? sound recording technician using the patient's name, date and [...] Procedure Code(s): ?? --- Professional --- ? 15921, Colonoscopy, flexible; with ? biopsy, single or multiple CPT copyright 2017 [employer]. All rights reserved. The codes documented in this report are preliminary and upon corporate job titles review may be revised to meet current [...] Procedure) documented in this encounter Care Teams Astronomy Professor Relationship Specialty Start Date End Date Osiris Garcia APRN PCP - General Internal Medicine 06/02/16 04/04/[address] [place] [address] documented as of this encounter
--- OUTSIDE RECORDS SUMMARY | 2022-02-08 09:01 | XMS_ITS | Encounter Summary ---
:1970 Author Organization [facility] Address [place] [id number] Care Team Providers Name Role Phone Sushil Loya MD Primary Care Provider [phone] Reason for Referral Diagnostic Test (Routine) - Closed Specialty Diagnoses / Procedures Referred By Contact Refer red To Contact Radiology Diagnoses [place] Diarrhea Yarelis Guzman MD [facility] Rad Nuclear Med Procedures [facility] [place] [address] [place] [address] Referral ID Status Reason Start Date Expiration Date Visits V isits Requested Authorized [id number] Closed Specialty 10/01/2015 09/30/2016 1 1 Service Requested Reason for Visit Diagnostic Test (Routine) - Closed Specialty Diagnoses / Procedures Referred By Contact Refer red To Contact Radiology Diagnoses [place] Diarrhea Yarelis Guzman MD [facility] Rad Nuclear Med Procedures [facility] [place] [address] [place] [address] Referral ID Status Reason Start Date Expiration Date Visits V isits Requested Authorized [id number] Closed Specialty 10/01/2015 09/30/2016 1 1 Service Requested Encounter Details Date Type Department Care Team Description 10/14/2015 Hospital Encounter Nuclear Medicine at Megan, Olya cheryl, [place]; Mary Uriarte MD [facility] [place] [address] ENDOCRINOLOGY DEPT [phone] [place], [place] [address] (Wo rk) Social History Tobacco [...] Visit (TeleHealth) General Surgery Rylie Rea M, STALLION KEEPER [facility] [place] [address] Keiry Chatterjee, RD [facility] [place] [address] documented as of this encounter Procedures Procedure Name Priority Date/Time Associated Diagnosis Comme nts NM OCTREOSCAN Routine 10/15/2015 11:20 AM [place] Results for this EDT Diarrhea procedure are i n the results section . documented in this encounter Results [place] OctreoScan (10/15/2015 11:20 AM EDT) Anatomical Region Laterality Modality Nuclear Medicine Specimen (Source) Anatomical Location Collection Method / Collectio n Time Received Time / Laterality Volume Impressions 10/15/2015 12:58 PM EDT No somatostatin receptor positive tumor is detected. Narrative 10/15/2015 12:58 PM EDT EXAMINATION: [place] OCTREOSCCHERYL CLINICAL HISTORY: 44 yo F with [...] Note Michael Mccormick MD - 10/15/2015 EXAMINATION: [place] OCTREOSCCHERYL CLINICAL HISTORY: 44 yo F with [...] Routine documented in this encounter Care Teams Business Objects Relationship Specialty Start Date End Date Sushil Loya MD PCP - General General Internal Medicine 09/13/15 06/01/[address] [place] [address] documented as of this encounter
--- OUTSIDE RECORDS SUMMARY | 2022-02-08 09:01 | XMS_ITS | Encounter Summary ---
:1970 Author Organization [facility] [address] Care Team Providers Name Role Phone Sushil Loya MD Primary Care Provider [phone] Reason for Visit Consultation (Routine) - Closed Specialty Diagnoses / Procedures Referred By Contact Refer red To Contact Allergy Diagnoses Dermatitis, unspecified Tan Owen MD [facility] Allergy [address] [place] [address] [place] [address] [place] [address] Referral ID Status Reason Start Date Expiration Date Visits V isits Requested Authorized [id number] Closed Consult, 06/11/2015 06/10/2016 1 1 [facility] Encounter Details Date Type Department Care Team Description 10/21/2015 Office Visit Allergy at [facility] Irma Schroeder MD Weight gain; [facility]; [facility] [address]; [place] [address] ALLERGY AND PATIENT NOT SEEN [phone] IMMUNOLOGY [place] [address] (Wo rk) Social History Tobacco Use Types [...] Description 03/10/2022 TH Visit (TeleHealth) General Surgery yRlie Rea, AUTOMOTIVE TIRE TESTER [facility] [place] [address] Keiry Chatterjee, RD [facility] GENERAL [place] [address] documented as of this encounter Procedures Procedure [...] athologist Signature Jayjay Saliva 97 <100 ng/dL [facility] LABORATORY Comment: REVISED RESULTS Due to a software system error, report r evised to include the reference range. The result value an d associated flagging remain unchanged. PREVIOUSLY REPORTED A S 97 (Reported 09/24/2015 15:10) Test Performed by: [facility] - [address] [address] Upper Tier: Jun Blair II, M.D., Ph.D. Test Performed by: [facility] - [address] [address] Upper Tier: Jun Blair II, M.D., Ph.D. Corrected from 97 ng/dL [NA] on 10/21/15 04:47 by Contributor_system, WILSON. Specimen Anatomical Collection Method Collection Time Receive d Time (Source) Location / / Volume Laterality Specimen of 09/16/2015 11:03 09/20/2015 2:38 unknown material PM EDT PM EDT (specimen) Yarelis Guzman MD BODY FLUIDS AND STOOLS ORDER DAVIAN Performing Organization Address City/[facility]/[place] [address] Cortisol, saliva (09/15/2015 11:03 PM EDT) athologist Signature Jayjay Saliva <50 <100 ng/dL [facility] Midnight [facility] LABORATORY Comment: REVISED RESULTS Due to a software system error, report r evised to include the reference range. The result value an d associated flagging remain unchanged. PREVIOUSLY REPORTED A S <50 (Reported 09/24/2015 15:11) Test Performed by: [facility] [place] [address] Upper Tier: Jun Blair II, M.D., Ph.D. Test Performed by: [facility] [place] [address] Upper Tier: Jun Blair II, M.D., Ph.D. Corrected from <50 ng/dL [NA] on 6 04:40 by Contributor_system, WILSON. Specimen Anatomical Collection Method Collection Time Receive d Time (Source) Location / / Volume Laterality Specimen of 09/15/2015 11:03 09/20/2015 2:38 unknown material PM EDT PM EDT (specimen) Yarelis Guzman MD BODY FLUIDS AND STOOLS ORDER DAVIAN Performing Organization Address City/[facility]/[place] [address] documented in this encounter Visit Diagnoses Diagnosis Weight gain Abnormal weight gain Hirsutism [place] DH PATIENT NOT SEEN documented in this encounter Care Teams Crane Hoist Or Lift Operator Relationship Specialty Start Date End Date Sushil Loya MD PCP - General General Internal Medicine 09/13/15 06/01/[address] [place] [address] documented as of this encounter
--- OUTSIDE RECORDS SUMMARY | 2022-02-08 09:01 | XMS_ITS | Encounter Summary ---
:1970 Author Organization [facility] [place] [address] Care Team Providers Name Role Phone Sushil Loya MD Primary Care Provider [phone] Reason for Visit Diagnostic Test (Routine) - Closed Specialty Diagnoses / Procedures Referred By Contact Refer red To Contact Radiology Diagnoses [place] Diarrhea Yarelis Guzman MD [facility] Rad Nuclear Med Procedures NM OctreoScan [facility] [address] [place] [address] [place] [address] Referral ID Status Reason Start Date Expiration Date Visits V isits Requested Authorized [id number] Closed Specialty 10/01/2015 09/30/2016 1 1 Service Requested Encounter Details Date Type Department Care Team Description 10/15/2015 Hospital Encounter Nuclear Medicine at Olya guan Mary Hitchcock MD [facility] [place] [address] ENDOCRINOLOGY DEPT [phone] [place], [place] [address] (Wo rk) Social History Tobacco [...] TH Visit (TeleHealth) General Surgery Rylie Rea, CONFIGURATION ENGINEER [facility] [address] Keiry Chatterjee, RD [facility] [place] [address] documented as of this encounter Procedures Procedure [...] on filedocumented in this encounter Care Teams Emergency Dispatcher Relationship Specialty Start Date End Date Sushil Loya MD PCP - General General Internal Medicine 09/13/[address] [place] [address] documented as of this encounter
--- OUTSIDE RECORDS SUMMARY | 2022-02-08 09:01 | XMS_ITS | Encounter Summary ---
:1970 Author Organization [facility] [place] [address] Care Team Providers Name Role Phone Sushil Loya MD Primary Care Provider [phone] Encounter Details Date Type Department Care Team Description 09/20/2015 Telephone Endocrinology at [facility] C Estefania Cooper, [place] [address] Social History Tobacco Use Types Packs/Day [...] worse. Placed call back to [facility] as law writer spoke with patient yesterday and patient [...] TH Visit (TeleHealth) General Surgery Rylie Rea, RISK ADJUSTMENT SPECIALIST [facility] [place] [address] Keiry Chatterjee, RD [facility] [place] [address] documented as of this encounter Visit Diagnoses Not on filedocumented in this encounter Care Teams Equipment Detailer Relationship Specialty Start Date End Date Sushil Loya MD PCP - General General Internal Medicine 09/13/15 06/01/[address] [place] [address] documented as of this encounter
--- OUTSIDE RECORDS SUMMARY | 2022-02-08 09:01 | XMS_ITS | Encounter Summary ---
:1970 Author Organization [facility] [place] [address] Care Team Providers Name Role Phone Osiris Garcia Karen NUNEZ Primary Care Provider Encounter Details Date Type Department Care Team Description 04/12/2017 Notes Only Allergy at [facility] [address] ALLERGY AND IMMUNOLOGY [phone] [place], [place] [address] (Wo rk) Social History Tobacco [...] management of your symptoms. Labs collected at [facility]. Serum tryptase level was 9.0 on 01/23/17.. 24 hour urine NMH was 107 and beta prostaglandin was 1438On 02/12/17. Labs sent to medical records for scanning. documented in this encounter Plan of Treatment Upcoming Encounters Date Type Specialty Care Team Description 03/10/2022 TH Visit (TeleHealth) General Surgery Rylie Rea APRN [facility] [place] [address] Keiry Chatterjee, SAM [facility] [place] [address] documented as of this encounter Visit Diagnoses Not on filedocumented in this encounter Care Teams Rn Transplant Relationship Specialty Start Date End Date Osiris Garcia APRN PCP - General Internal Medicine 06/02/16 04/04/[address] [place] [address] documented as of this encounter
--- OUTSIDE RECORDS SUMMARY | 2022-02-08 09:01 | XMS_ITS | Encounter Summary ---
:1970 Author Organization [facility] [place] [address] Care Team Providers Name Role Phone Osiris Garcia APRN Primary Care Provider Encounter Details Date Type Department Care Team Description 12/18/2017 Telephone Dermatology at [facility] Calista Bruno PA [address] [address] [facility] [place] [address] [facility]-DERMATOLOGY [phone] [place], [place] [address] (Wo rk) Social History Tobacco [...] [facility] [place] [address] [facility] [place] [address] documented as of this encounter Visit Diagnoses Not on filedocumented in this encounter Care Teams User Support Specialist Relationship Specialty Start Date End Date Osiris Garcia APRN PCP - General Internal Medicine 06/02/16 04/04/[address] [place] [address] documented as of this encounter
--- OUTSIDE RECORDS SUMMARY | 2022-02-08 09:01 | XMS_ITS | Encounter Summary ---
:1970 Author Organization [facility] Address [facility] [place] [address] Care Team Providers Name Role Phone Osiris Garcia ENRIQUE Primary Care Provider Encounter Details Date Type Department Care Team Description 12/05/2017 Anesthesia Event Gastroenterology at [facility] Kelvin Alvarez MD [facility] [place] [address] [facility] Chandni Lindsay CRNA [facility] [place] [address] [place] [address] Anesthesia Record Procedure Summary Procedure Name [...] of arm), right; LORELEI Robles Sylvie, RN [id number] catheter system; 22 gauge; Angelito Shea RN; [...] Franc Elliott - 12/05/2017 8:15 PM EDT [facility] Department of Anesthesiology Post-procedure Note Patient: Monisha Das Procedure Summary Date Anesthesia Start Anesthesia Stop Room / Location 12/05/171823 [facility] ENDO 3 / [facility] ENDOSCOPY Procedure Diagnosis Surgeon Responsible Provider UPPER EUS- ENDOSCOPIC ULTRASOUND (N/A Trunk); EGD WITH BIOPSY (WRVU 2.49) (N/A Trunk); COLONOSCOPY,DIAGNOSTIC (N/A Trunk) Gastroesophageal reflux disease, esophagitis presence not specified; Dysphagia, unspecified type; Diarrhea, unspecified type (?microscopic colitis diarrhea. surveillance serrated adenoma; ? pancreatic insufficiency) Luther Narayan MD Burchman, Corey A, MD All Anesthesia Providers: Anesthesiologist: Kelvin Alvarez MD BALLISTICS TESTER: Chandni Negrete CRNA Advertising Teacher: Franc Elliott MD Most Recent Vitals: 12/05/171999 BP: 122/81 Pulse: Resp: 18 Temp: SpO2: 98% Pain 0 (12/05/171936) Patient Location: PACU/[facility] Level of Consciousness: Awake and Alert [...] risks discussed with patient. Plan discussed with BALLISTICS TESTER and attending. PAT Staff Note documented in this encounter Plan of Treatment Upcoming Encounters Date Type Specialty Care Team Description 03/10/2022 TH Visit (TeleHealth) General Surgery Rylie Rea, PHOTOGRAPHY MANAGER [facility] [address] Keiry Chatterjee, RD [facility] [place] [address] documented as of this encounter Visit Diagnoses [...] mL/hr documented in this encounter Care Teams Hand Thermal Cutter Relationship Specialty Start Date End Date Osiris Garcia APRN PCP - General Internal Medicine 06/02/16 04/04/[address] [place] [address] documented as of this encounter
--- OUTSIDE RECORDS SUMMARY | 2022-02-08 09:01 | XMS_ITS | Encounter Summary ---
:1970 Author Organization [facility] [place] [address] Care Team Providers Name Role Phone Sushil Loya MD Primary Care Provider [phone] Encounter Details Date Type Department Care Team Description 09/16/2015 Hospital [facility] [place] [address] Social History Tobacco Use Types Packs/Day [...] Visit (TeleHealth) General Surgery Rylie Rea, MARINE ELECTRICIAN HELPER [facility] [place] [address] Keiry Chatterjee, RD [facility] [place] [place] [address] documented as of this encounter Visit Diagnoses Not on filedocumented in this encounter Care Teams Large Animal Husbandry Technician Relationship Specialty Start Date End Date Sushil Loya MD PCP - General General Internal Medicine 09/13/15 06/01/[address] [place] [address] documented as of this encounter
--- OUTSIDE RECORDS SUMMARY | 2022-02-08 09:01 | XMS_ITS | Encounter Summary ---
:1970 Author Organization [facility] [place] [address] Care Team Providers Name Role Phone Sushil Loya MD Primary Care Provider Encounter Details Date Type Department Care Team Description 09/28/2015 Telephone Endocrinology at [facility] Estefania Watkins, [place] [address] Social History Tobacco Use Types Packs/Day [...] will ask that she review them too. Convertible Top Installer called [facility] to check on 24 hour urine cortisol test. Results not back and maybe not back until Sunday or the beginning of next week. Monisha made aware of this also. Message verbally passed on to Dr Guzman who will get in touch with Monisha via [facility] documented in this encounter Plan of Treatment Upcoming Encounters Date Type Specialty Care Team Description 03/10/2022 TH Visit (TeleHealth) General Surgery Rylie Rea, AERIAL TRAM OPERATOR [facility] [place] [address] Keiry Chatterjee, SAM [facility] [place] [address] documented as of this encounter Visit Diagnoses Not on filedocumented in this encounter Care Teams Electronic Die Maker Relationship Specialty Start Date End Date Sushil Loya MD PCP - General General Internal Medicine 09/13/15 06/01/[address] [place] [address] documented as of this encounter
--- OUTSIDE RECORDS SUMMARY | 2022-02-08 09:01 | XMS_ITS | Encounter Summary ---
:1970 Author Organization [facility] [address] Care Team Providers Name Role Phone NicaHuyen urena Caitlin MOORE Primary Care Provider Reason for Visit Reason Comments Follow-up spells Encounter Details Date Type Department Care Team Description 08/15/2018 Office Visit Allergy at [facility] Irma Schroeder, [place]; [facility] Diarrhea, unspecified type; Drive [facility] Angioedema, [place] [address] ALLERGY AND [phone] IMMUNOLOGY [place], [place] [address] Social History Tobacco Use Types [...] please contact the patient finance office at [phone], prior to having the tests collected. Please contact the allergy clinic in 7-10 business days for your test results. You may call [phone]. documented in this encounter Progress Notes Irma [...] she had a tryptase level checked at [facility] and it was 9.3ng/mL. She has a standing tryptase lab at [facility] to be drawn prn symptoms [...] surgical history were reviewed and updated in [facility]. Allergies: Atropine and Spironolactone Medications: [...] DIAGNOSTIC performed by Luther Narayan MD at [facility] ENDOSCOPY ??? PRO ENDOSCOPIC US EXAM, ESOPH N/A 12/05/2017 UPPER EUS- ENDOSCOPIC ULTRASOUND performed by Luther Narayan MD at [facility] ENDOSCOPY ??? PRO UPPER GI ENDOSCOPY, BIOPSY N/A 12/05/2017 EGD WITH BIOPSY (WRVU 2.49) performed by Luther Narayan MD at [facility] ENDOSCOPY ??? TONSILLECTOMY Family history: [...] on phone: None Gets together: None Attends mormon service: None Active member of club or [...] with PCP for management of diarrhea. Consider casting cleaner referral with PCP for evaluation of diarrhea. 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 operations to review her symptoms and determine if [...] TH Visit (TeleHealth) General Surgery Rylie Rea, CELL ROOM SUPERVISOR [facility] [place] [address] Keiry Chatterjee, RD [facility] [place] [address] documented as of this encounter Procedures Procedure [...] Signature Glucose Lvl 104 65 - 199 [facility] mg/dL [facility] LABORATORY Comment: Diabetes: >=200 mg/dL plus symp toms BUN 21 (H) 8 - 18 mg/dL [facility] Creatinine 0.92 0.70 - 1.20 mg/dL [facility] Sodium 142 135 - 145 mmol/L [facility] Potassium 3.4 (L) 3.5 - 5.0 mmol/L [facility] Comment: Please note: ??Patients with WBC >100,00 0 may have falsely elevated Potassium levels. ??For accurate Potassium quantif ication in these patients send serum separator tube (gold top) for subsequent determinations. ??Contact the Clinical Chemistry Laboratory if there are any qu estions. Chloride 104 98 - 107 mmol/L [facility] CO2 26 22 - 31 mmol/L [facility] Anion Gap 12 5 - 15 mmol/L [facility] Calcium 9.8 8.5 - 10.5 mg/dL [facility] Total Protein 7.1 6.1 - 8.0 gm/dL [facility] Albumin 4.4 3.2 - 5.2 gm/dL [facility] AST 22 0 - 30 unit/L [facility] ALT 24 0 - 30 unit/L [facility] Alk Phos 50 40 - 104 unit/L [facility] Total Bilirubin 0.2 0.2 - 1.3 mg/dL [facility] Estimated GFR 74 >=60 mL/min/1.73 m?? [facility] Comment: The eGFR was calculated using the CKD-EP I equation. As with all creatinine based estimates of kidney function, eGFR values calculated with the CKD-EPI equation are not accurate in patients wi th acute kidney failure, extremes of body mass or the acutely ill. [email or web address] eGFR 85 >=60 mL/min/1.73 m?? [facility] Comment: The eGFR was calculated using the CKD-EP I equation. As with all creatinine based estimates of kidney function, eGFR values calculated with the CKD-EPI equation are not accurate in patients wi th acute kidney failure, extremes of body mass or the acutely ill. [email or web address]f Specimen Anatomical Collection Method Collection Time Receive d Time (Source) Location / / Volume Laterality Blood specimen 08/15/2018 4:46 PM 019 4:59 (specimen) EDT PM EDT Resulting Agency Comment Spec In Lab Irma Schroeder MD CHEMISTRY ORDERABLES Performing Organization Address City/State/ZIP Code Phon e Number [address] Tryptase (08/15/2018 4:46 PM EDT) P athologist Signature Tryptase 9.0 <=11.1 [facility] ng/mL [facility] Comment: Total tryptase concentrations that are p ersistently greater than 20 ng/mL may be consistent with systemic mastocytosis . Specimen Anatomical Collection Method Collection Time Receive d Time (Source) Location / / Volume Laterality Blood specimen 08/15/2018 4:46 PM 019 7:27 (specimen) EDT AM EDT Resulting Agency Comment Spec In Lab Irma Schroeder MD CHEMISTRY ORDERABLES Performing Organization Address City/[facility]/ZIP [place] [address] documented in this encounter Visit Diagnoses Diagnosis [place] Diarrhea, unspecified type Angioedema, initial encounter documented in this encounter Care Teams Head Animal Keeper Relationship Specialty Start Date End Date Huyen Ramon DO PCP - General Family Medicine 04/05/[address] [place] [address] documented as of this encounter
--- OUTSIDE RECORDS SUMMARY | 2022-02-08 09:01 | XMS_ITS | Encounter Summary ---
:1970 Author Organization [facility] [place] [address] Care Team Providers Name Role Phone Osiris Garcia APRN Primary Care Provider Encounter Details Date Type Department Care Team Description 12/05/2017 [place] [facility] [place] Narayan, UPPER EUS- ENDOSCOPIC [facility] Zora white [place] [address] [facility] [phone] DR GASTROENTEROLOGY DEPT. [place], [place] [address] Social History Tobacco Use Types [...] to be checked. Sunday-Sunday Same Day Endo [phone]-[phone] Otherwise contact [phone] and ask to speak to the experience designer stucco mason Follow up care is a pryor part [...] Narayan MD - 12/05/2017 7:04 PM EDT [facility] [place] Note Patient Name: Monisha Das : [id number] MR#: [id number] Case Date: 12/05/2017 Surgeon: Surgeon(s) and Role: * Luther Narayan MD - Primary * Wilfredo aVllejo MD - Fellow Preoperative diagnosis: ?microscopic colitis [...] TH Visit (TeleHealth) General Surgery Rylie Rea, FILTER WORKER [facility] [place] [address] Keiry Chatterjee, RD [facility] [address] documented as of this encounter Procedures Procedure [...] PM 8 7:53 EDT PM EDT Narrative [facility] - 12/05/2017 7:53 PM EDT Specimen requisition ordered. ??Separate Pathology report to follow Resulting Agency Comment Spec In Lab Luther Narayan MD PATHOLOGY/CYTOLOGY ORDERABLE S Performing Organization Address [facility] [place] [address] Specimen to Pathology (12/05/2017 7:33 PM EDT) Specimen Anatomical Collection Method Collection Time Receive d Time (Source) Location / / Volume Laterality AP Specimen 12/05/2017 7:33 PM 8 7:53 EDT PM EDT Narrative [facility] - 12/05/2017 7:53 PM EDT Specimen requisition ordered. ??Separate Pathology report to follow Resulting Agency Comment Spec In Lab Luther Narayan MD PATHOLOGY/CYTOLOGY ORDERABLE S Performing Organization Address [facility]/ZIP [place] [address] Specimen to Pathology (12/05/2017 7:33 PM EDT) Specimen Anatomical Collection Method Collection Time Receive d Time (Source) Location / / Volume Laterality AP Specimen 12/05/2017 7:33 PM 8 7:53 EDT PM EDT Narrative [facility] - 12/05/2017 7:53 PM EDT Specimen requisition ordered. ??Separate Pathology report to follow Resulting Agency Comment Spec In Lab Luther Narayan MD PATHOLOGY/CYTOLOGY ORDERABLE S Performing Organization Address City/[facility] [place] [address] Surgical Pathology Report (12/05/2017 6:38 PM EDT) Component Value Ref Test Analysis Performed At [facility] Method Time Signature Surgical [id number] ? Location: 4T; EA06; A [facility] Pathology CENTRAL Report The signing pathologist has (i) examined [...] Rodriguez MD Verified: ??12/11/2017 ?Pathologist Performed at: ??-[facility] [place]. [place], [place], [place] CLINICAL INFORMATION Specimen Submitted: A - [...] Organization Address City/State/ZIP [place] [address] UPPER GI ENDOSCOPY (12/05/2017 6:29 PM EDT) Component Value Ref Test Analysis Performed At [facility] Method Time Signature UPPER GI [facility] ENDOSCOPY Endoscopy Procedure Date: 12/05/2017 6:29 PM ? Patient Name: Monisha Das ? N: [id number] ? Date of : 1970 ? Age: 46 ? Order #: [id number] ? Instrument Name: [id number] ? Procedure: ? Upper GI endoscopy Indications: [...] Laterality 12/05/2017 6:29 PM EDT Osiris Garcia FILTER WORKER GENERAL SURGICAL ORDERABLES Performing Organization Address City/State/ZIP Code Phon e Number [facility] UPPER EUS-ENDOSCOPIC ULTRASOUND (12/05/2017 6:28 PM EDT) Component Value Ref Test Analysis Performed Pathologis t Range Method Time At [facility] UPPER [facility] ENDOSCOPIC Endoscopy ULTRASOUND _ Procedure Date: 12/05/2017 6:28 PM ? Patient Name: Monisha Das ? Date of : 1970 ? Age: 46 ? Order #: [id number] ? Instrument Name: [id number] ? Procedure: ? Upper EUS Indications: ? [...] Component Value Ref Test Analysis Performed At [facility] Method Time Signature COLONOSCOPY [facility] Endoscopy Procedure Date: 12/05/2017 6:27 PM ? Patient Name: Monisha Das ? Date of : 1970 ? Age: 46 ? Order #: [id number] ? Instrument Name: [id number] ? Procedure: ? Colonoscopy Indications: ? Chronic [...] the physician, mihai mobley ? nurse, the oracle fusion middleware architect and e ? associate technician. The procedure was ? verified in [...] was evaluat ed using ? the BBPS (Rembrandt Bowel Prepar ation ? Scale) with scores [...] done by the physician, nurse and ? associate technician using the patient's name, date and [...] Procedure Code(s): ?? --- Professional --- ? 76240, Colonoscopy, flexible; with ? biopsy, single or multiple CPT copyright 2017 [employer]. All rights reserved. The codes documented in this report are preliminary and upon parachutist/combatant diver qualified review may be revised to meet current [...] Procedure) documented in this encounter Care Teams Pump Erector Relationship Specialty Start Date End Date Osiris Garcia APRN PCP - General Internal Medicine 06/02/16 04/04/[address] [place] [address] documented as of this encounter
--- OUTSIDE RECORDS SUMMARY | 2022-02-08 09:01 | XMS_ITS | Encounter Summary ---
:1970 Author Organization [facility] [place] [address] Care Team Providers Name Role Phone Huyen Ramon DO Primary Care Provider Reason for Visit Reason Comments Advice Only Consultation (Routine) - Closed Specialty Diagnoses / Procedures Referred By Contact Refer red To Contact Hematology and Diagnoses [facility] LEUKOCYTOSIS Huyen Ramon, [facility] Hem Onc 3k Oncology [address] [phone] Fax: Referral ID Status Reason Start Date Expiration Date Visits V isits Requested Authorized [id number] Closed Consult, 07/11/2018 07/11/2019 1 1 [facility] Encounter Details Date Type Department Care Team Description 07/29/2018 Office Visit Hematology and Manan Almanza MD [facility] HEMATOLOGY/[place] [address] Leukocytosis, Oncology at [facility] Malena George [facility] HEMATOLOGY/[place] [address] unspecified [facility] Yarelis Iglesias ATM SERVICER [facility] DR [place]ATOLOG[place] [address] (Primary Dx) Drive [place] [phone] Social [...] 9.5/13.6/400 2017 Evaluated by Irma Schroeder MD, [facility] Allergy for possible mast cell disorder - [...] during her attacks. Sx are worse in [place] where she visits with her parents - feels thismay be because she exercises more and drinks more ETOH there. 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 . Flow Cytometry DIAGNOSIS Normal immunophenotyping results. No monotypic B-cell population or phenotypically abnormal T-cell population or increase in blasts is detected. Electronically signed by: Aron Betancur MD Verified: 07/29/2018 Hematopathologist Performed at: -[facility] Dept. of Pathology, [place], [place] DISCUSSION Blasts based on CD45 expression and orthogonal light scatter, are not increased. The T-lymphocytes, CD56+ NK cells and B- lymphocytes comprise approx 82%, 6%, 12% of the gated population, respectively. The CD19 positive B-cells have a polytypic expression of surface immunoglobulin light chain ([place]:Lambda ratio at 1.3). The T-cells are an admixture of CD4+ and CD8+ T lymphocytes (ratio of 2.4). No loss or atypical intensity distributions are seen for any quintana T antigen (CD2, 3, 4+8, 5, 7). There is no increase in XQ47-mjfvwsrs/CD3-neg NK cells. Flow analysis is an ancillary study. A definite diagnosis requires correlation with the morphologic features of this process and if necessary, correlation with other ancillary studies like immunohistochemistry, enzyme cytochemistry and/or cyto/ molecular genetics. This test was developed and its performance characteristics determined by the Clinical Flow Cytometry Laboratory at [facility]. It has not been cleared or approved [...] high complexity clinical laboratory testing. SPECIMEN PROCESSING [id number] Cells for immunophenotypic analysis were derived from [...] Latest Ref Range: None Detected None Detected [place] Free Light Chains Latest Ref Range: 0.81 - 2.98 mg/dL 1.50 Lambda Free Light Chains Latest Ref Range: 0.86 - 1.99 mg/dL 1.68 [place]/Lambda Free Light Chain Ratio Latest Ref Range: [...] of Hematology and Blood & Marrow Transplant [facility] documented in this encounter Plan of Treatment Upcoming Encounters Date Type Specialty Care Team Description 03/10/2022 TH Visit (TeleHealth) General Surgery Rylie Rea, ATM SERVICER [facility] [place] [address] Keiry Chatterjee, RD [facility] [place] [address] documented as of this encounter Results Lactate Dehydrogenase (07/29/2018 11:09 AM EDT) athologist Signature LDH 215 110 - 220 [facility] unit/L [facility] LABORATORY Specimen Anatomical Collection Method Collection Time Receive d Time (Source) Location / / Volume Laterality Blood specimen 07/29/2018 11:09 9 (specimen) AM EDT 11:40 AM EDT Resulting Agency Comment Spec In Lab Zhang Almanza MD CHEMISTRY ORDERABLES Performing Organization Address City/[facility] Phon e Number [address] Free Light Chains, Serum (07/29/2018 11:09 AM EDT) athologist Signature [place] Free 1.50 0.81 - [facility] Light Chains 2.98 mg/dL [facility] LABORATORY Lambda Free 1.68 0.86 - [facility] Light Chains 1.99 mg/dL [facility] LABORATORY [place]/Lambda 0.8929 0.5000 - [facility] Free Light 2.4300 [facility] LABORATORY Comment: Please be advised [...] Almanza MD CHEMISTRY ORDERABLES Performing Organization Address [facility] Phon e Number [address] (ABNORMAL) Immunoglobulins, Quantitative (07/29/2018 11:09 AM EDT) athologist Signature IgG 908 700 - 1,600 [facility] mg/dL [facility] LABORATORY Comment: Pediatric Reference Intervals obtained f rom the Caliper Reference Interval project. http://www.sickkids.ca/caliperp roject/index.html IgA 173 70 - 400 mg/dL [facility] LABORATORY IgM 231 (H) 40 - 230 mg/dL [facility] LABORATORY Specimen Anatomical Collection Method Collection Time Receive d Time (Source) Location / / Volume Laterality Blood specimen 07/29/2018 11:09 9 (specimen) AM EDT 11:40 AM EDT Resulting Agency Comment Spec In Lab Zhang Almanza MD CHEMISTRY ORDERABLES Performing Organization Address City/[facility]/ZIP Code Phon e Number [address] Protein Electrophoresis, serum (07/29/2018 11:09 AM EDT) [facility] Method Time Signature Total Prot 7.1 6.1 - 8.0 [facility] Elec gm/dL [facility] LABORATORY Albumin Elect 4.65 3.60 - 6.00 [facility] gm/dL [facility] LABORATORY Alpha1-Globul 0.19 0.10 - 0.30 [facility] in gm/dL [facility] LABORATORY Alpha2-Globul 0.72 0.40 - 0.90 [facility] in gm/dL [facility] LABORATORY Beta Globulin 0.63 0.50 - 1.00 [facility] gm/dL [facility] LABORATORY Gamma 0.90 0.50 - 1.30 [facility] Globulin gm/dL [facility] LABORATORY M1 Band None None [place] Detected Detected [facility] LABORATORY Specimen Anatomical Collection Method Collection Time Receive d Time (Source) Location / / Volume Laterality Blood specimen 07/29/2018 11:09 9 (specimen) AM EDT 11:40 AM EDT Resulting Agency Comment Spec In Lab Zhang Almanza MD CHEMISTRY ORDERABLES Performing Organization Address City/[facility]/ZIP Code Phon e Number [address] Immunophenotyping Flow Cytometry (07/29/2018 11:09 AM EDT) Component Value Ref Test Analysis Performed At [facility] Method Time Signature Immunophenotyping See ROSETTE Flow Comment [facility] LABORATORY Comment: When completed by the Pathologist, the F low Cytometry Report ([id number]) will display under the Pathology Result s section within [facility]. Specimen Anatomical Collection Method Collection Time Receive d Time (Source) Location / / Volume Laterality Specimen of 07/29/2018 11:09 07/29/2018 unknown material AM EDT 11:40 AM ED T (specimen) Resulting Agency Comment Spec In Lab Zhang Almanza MD HEMATOLOGY ORDERABLES Performing Organization Address City/[facility]/ZIP Code Phon e Number [address] Sedimentation rate (07/29/2018 11:09 AM EDT) P athologist Signature Sed Rate 11 0 - 20 [facility] mm/hr [facility] LABORATORY Specimen Anatomical Collection Method Collection Time Receive d Time (Source) Location / / Volume Laterality Blood specimen 07/29/2018 11:09 9 (specimen) AM EDT 11:40 AM EDT Resulting Agency Comment Spec In Lab Zhang Almanza MD HEMATOLOGY ORDERABLES Performing Organization Address City/[facility]/[place] [address] CRP, acute inflammation (07/29/2018 11:09 AM EDT) P athologist Signature CRP 4.0 <=4.9 mg/L [facility] LABORATORY Specimen Anatomical Collection Method Collection Time Receive d Time (Source) Location / / Volume Laterality Blood specimen 07/29/2018 11:09 9 (specimen) AM EDT 11:40 AM EDT Resulting Agency Comment Spec In Lab Zhang Almanza MD CHEMISTRY ORDERABLES Performing Organization Address City/[facility]/ZIP [facility] [place] [address] (ABNORMAL) Iron and TIBC (07/29/2018 11:09 AM EDT) Analysis Performed At Patho logist Time Signature Iron 61 30 - 150 [facility] mcg/dL [facility] LABORATORY TIBC 241 (L) 250 - 450 [facility] mcg/dL [facility] LABORATORY Iron Saturation 25 20 - 50 % [facility] LABORATORY Specimen Anatomical Collection Method Collection Time Receive d Time (Source) Location / / Volume Laterality Blood specimen 07/29/2018 11:09 9 (specimen) AM EDT 11:40 AM EDT Resulting Agency Comment Spec In Lab Zhang Almanza MD CHEMISTRY ORDERABLES Performing Organization Address City/State/ZIP Code Phon e Number [address] (ABNORMAL) Ferritin (07/29/2018 11:09 AM EDT) athologist Signature Ferritin 151 (H) 15 - 150 [facility] ng/mL [facility] LABORATORY Comment: Pediatric reference ranges not verified at [facility], interpret with caution. Reference ranges for females greater keaton n 50 years of age approach values for men, i.e., 30-400 ng/mL. Specimen Anatomical Collection Method Collection Time Receive d Time (Source) Location / / Volume Laterality Blood specimen 07/29/2018 11:09 9 (specimen) AM EDT 11:40 AM EDT Resulting Agency Comment Spec In Lab Zhang Almanza MD CHEMISTRY ORDERABLES Performing Organization Address City/[facility]/[place] [address] documented in this encounter Visit Diagnoses Diagnosis Leukocytosis, unspecified type - Primary documented in this encounter Care Teams Electron Microscopist Relationship Specialty Start Date End Date Huyen Ramon DO PCP - General Family Medicine 04/05/[address] [place] [place] [address] documented as of this encounter
--- OUTSIDE RECORDS SUMMARY | 2022-02-08 09:12 | XMS_ITS | Encounter Summary ---
:1970 Author Organization [facility] Address [address] [place] [address] Care Team Providers Name Role Phone Linda Maher COMPONENT DESIGN ENGINEER Primary Care Provider Encounter Details Date Type Department Care Team Description 03/02/2005 Results Only [facility] - Clay Chaidez MD conversion [address] [place] [address] Social History Tobacco Use Types Packs/Day Years Used Date Smoking Tobacco: Never Assessed Sex Assigned at Date Recorded Not on file documented as of this encounter Plan of Treatment Not on filedocumented as of this encounter Procedures Procedure Name Priority Date/Time Associated Diagnosis Comme nts SURGICAL PATHOLOGY Routine 03/02/2005 0:00 EST Re sults for this procedure are i n the results section. documented in this encounter Results SURGICAL PATHOLOGY (03/02/2005 0:00 EST) Component Value Ref Test Analysis Performed At [facility] Method Time Signature Pathology SURGICAL PATHOLOGY REPORT THEODORE GORDON Report: Reports generated via electronic interface contain origina l data; JAMES AGUIAR however they are lacking the format of the original report. Caution should be taken when reading/interpreting unformatte d reports. Name: ? MONISHA DAS ? Accession #: ? [id number] ? : ? 1970 (Age: 34) ??F ? Collect Date: ? 03/02/2005 ? Location: ? [facility] ? Receive Date: ? 03/02/2005 ? Provider: CLAY GENAO MD Copy to: LINDA MAHER COMPONENT DESIGN ENGINEER ? Final Pathologic Diagnosis: A. ?Fallopian tube, right, partial excision: 1. ?Segment of fallopian tube with no specific pathologic features. B. ?Fallopian tube, left, partial excision: 1. ?Segment of fallopian tube with no specific pathologic features. Document reviewed and electronically signed by: DOMENICA LANDON MD Report ??Date: 03/07/2005 17:00 By the signature above, the attending physician certifies th at he/she has personally conducted a gross and/or microscopic examin ation of the described specimens and rendered or confirmed the above diagnosis. Specimen(s) Received: A. ?Right tube (#1) B. ?Left tube (#2) Clinical History: ? Desires sterilization; ; LMP: 03/06 Gross Description: ? Received in formalin labelled An derson and right tube is the distal portion of the fallopian tube with attached fimbria wh ich measures 4.0 cm in length and varies in diameter from 0.5 to 1.0 cm . ??The surface is smooth and thomas-blue. ??Serial sectioning reveals a muscular wall and a pinpoint lumen. [employer] Hemmer sections are submitted as (A). Received in formalin clayton d Thiago and L tube is a portion of fallopian tube with attached fimbria which measures 4.5 cm in length a nd varies in diameter from 0.3 to 0.8 cm. ??The surface is blue-gra y and smooth. ??Serial sectioning reveals a muscular wall and a lumen with a smooth lining. [employer] Hemmer sections are submitted as (B). ??(Dr. Belkis moncada)/[facility] End of Report Specimen (Source) Anatomical Collection Method Collection Time Re ceived Time Location / / Volume Laterality 03/02/2005 03/02/2005 15:1 4 EST Clay Genao MD PATHOLOGY ORDERABLES Performing Organization Address City/State/ZIP Code Phon e Number [facility] LABORATORY [address] [place] [address] [facility] [address] [place] [address] documented in this encounter Visit Diagnoses Not on filedocumented in this encounter Care Teams Residential Installer Relationship Specialty Start Date End Date Linda Maher, COMPONENT DESIGN ENGINEER PCP - General 01/27/09 03/17/14 [address] [place] [id number] documented as of this encounter
--- OUTSIDE RECORDS SUMMARY | 2022-02-08 09:12 | XMS_ITS | Encounter Summary ---
:1970 Author Organization [facility] Address [address] [place] [address] Care Team Providers Name Role Phone Lexie Hilario MD Primary Care Provider Encounter Details Date Type Department Care Team Description 10/27/2021 Lab Requisition [facility] Outr Resulting Lab, Pathology & Laboratory Provider [facility] [address] [place], [place] [address] Social History Tobacco Use Types Packs/Day Years Used Date Smoking Tobacco: Never Assessed Sex Assigned at Date Recorded Not on file documented as of this encounter Plan of Treatment Not on filedocumented as of this encounter Procedures Procedure Name Priority Date/Time Associated Diagnosis Comme nts COVID-19 TEST [facility] Today 10/26/2021 10:20 LAB PCR EDT COVID-19 TESTING Routine 10/26/2021 10:20 Results for this EDT procedure are i n the results section. documented in this encounter Results COVID-19 TEST [facility] LAB PCR (10/26/2021 10:20 EDT) Specimen Anatomical Collection Method Collection Time Receive d Time (Source) Location / / Volume Laterality Swab 10/26/2021 10:20 10/27/2021 EDT 19:21 EDT Provider Outr Resulting Lab MICROBIOLOGY - GENERAL ORD ERABLES Performing Organization Address City/State/ZIP Code Phon e Number [facility] [address] [place] [address] SERVICES (ABNORMAL) COVID-19 TESTING (10/26/2021 10:20 EDT) [facility] Method Time Signature COVID-19 Positive Negative 10/28/2021 [facility] MEDICAL rt-PCR Result (AA) 0:35 EDT CENTER LABORATORY SERVICES Comment: This test has not been FDA cleared or ap proved. This test has been authorized by FDA under an EUA for use by authorized laboratories. This test has been authorized only for detection of nucleic acid fro m 2018-nCoV, not for any other viruses o r pathogens. This test is only authorized for the duration of the declaration that circumstances exist justifying the authorization of emergency use of in vitro d iagnostic tests for detection and/or selwyn gnosis of 2019-nCoV under section 564(b)(1) of Act, 21 U.S.C ?? 360bbb-3(b) (1), unless the authorization is terminated or revoked sooner. Performed on the Fluid Stone Fusion instrument Performing Lab [place] [facility] Lab 10/28/2021 0:[address] [facility] SERVICES Specimen Anatomical Collection Method Collection Time Receive d Time (Source) Location / / Volume Laterality Swab 10/26/2021 10:20 10/27/2021 EDT 19:21 EDT Provider Outr Resulting Lab MICROBIOLOGY - GENERAL ORD ERABLES Performing Organization Address City/State/ZIP Code Phon e Number [facility] [address] [place] [address] SERVICES documented in this encounter Visit Diagnoses Not on filedocumented in this encounter Additional Health Concerns Infection Onset Date Last Indicated Resolved Time COVID-19 10/26/2021 10/26/2021 11/15/2021 22:15 EDT documented as of this encounter Care Teams Organizational Consultant Relationship Specialty Start Date End Date Lexie Hilario MD PCP - General 06/21/15 documented as of this encounter
--- OUTSIDE RECORDS SUMMARY | 2022-02-08 09:12 | XMS_ITS | Encounter Summary ---
:1970 Author Organization [facility] Address [address] [place] [address] Care Team Providers Name Role Phone Lexie Hilario MD Primary Care Provider Encounter Details Date Type Department Care Team Description 05/05/2021 Lab Requisition [facility] Outr Resulting Lab, Pathology & Laboratory Provider [facility] [address] [id number] Social History Tobacco Use Types Packs/Day Years [...] encounter Results BETA HYDROXYBUTYRATE (05/05/2021 7:55 EST) [facility] Method Time Signature Beta <0.1 <0.4 05/05/2021 [facility] MEDICAL Hydroxybutyrate mmol/L 17:44 EST CENTER LABORATORY SERVICES Specimen Anatomical Collection Method Collection Time Receive d Time (Source) Location / / Volume Laterality Blood VENOUS BLOOD / 05/05/2021 7:55 05/05/2021 Unknown EST 17:21 EST Provider Outr Resulting Lab CHEMISTRY & BLOOD GAS JORJE BALDWIN Performing Organization Address City/State/ZIP Code Phon e Number [facility] [address] [place] [address] SERVICES INSULIN (05/05/2021 7:55 EST) P athologist Signature Insulin 6.8 <29.0 05/12/2021 [facility] MEDICAL uIU/mL 9:45 EST CENTER LABORATORY SERVICES Comment: Displayed Reference Range applies to fas ting specimens only. Specimen Anatomical Collection Method Collection Time Receive d Time (Source) Location / / Volume Laterality Blood VENOUS BLOOD / 05/05/2021 7:55 05/05/2021 Unknown EST 17:21 EST Provider Outr Resulting Lab CHEMISTRY & BLOOD GAS JORJE BALDWIN Performing Organization Address City/State/ZIP Code Phon e Number [facility] [address] [place] [address] SERVICES documented in this encounter Visit Diagnoses Not on filedocumented in this encounter Additional Health Concerns Infection Onset Date Last Indicated Resolved Time COVID-19 10/26/2021 10/26/2021 11/15/2021 22:15 EDT documented as of this encounter Care Teams Marsh Buggy Operator Relationship Specialty Start Date End Date Lexie Hilario MD PCP - General 06/21/15 documented as of this encounter
--- OUTSIDE RECORDS SUMMARY | 2022-02-08 09:12 | XMS_ITS | Encounter Summary ---
:1970 Author Organization [facility] Address [address] [place] [address] Care Team Providers Name Role Phone Lexie Hilario MD Primary Care Provider Encounter Details Date Type Department Care Team Description 07/25/[address] [facility]- Linda Coreas MD [phone] [address] [place] [address] Social History Tobacco Use Types Packs/Day Years [...] encounter Results SURGICAL PATHOLOGY (07/25/2016 9:08 EDT) Component Value Ref Test Analysis Performed At [facility] Range Method Time Signature Pathology SURGICAL PATHOLOGY REPORT [facility] MEDICAL Report: Reports generated via electronic interface contain [facility] data; CENTER however they are lacking the format of the original report. LABORATORY Caution should be taken when reading/interpreting unformat genoveva reports. SERVICES Name: ? MONISHA PEÑA ? Accession #: ? [id number] ? : ? 1970 (Age: [age]) ??F ? Collect Date: ? 07/25/2016 ? Location: ? [facility] ? Receive Date: ? 07/26/2016 ? Provider: LINDA TENORIO MD Copy to: LU GLASS MD ? Final Pathologic Diagnosis: ENDOMETRIUM, BIOPSY: - Polypoid fragment of benign endocervical tissue. See comme nt. - Scant fragments of inactive endometrium. Comment: [...] or confirmed the above diagnosis. Specimen(s) Received: Endometrial bx Clinical History: AUB Gross Description: ? Received in formalin labelled with proper patient identification (initials A, S) and endometrial bx is an aggregate of bl ood-tinged mucus, 1.8 x 1.5 x 0.6 cm. Entirely submitted in 1 and 2. CHAI Zavala (ASCP) 07/26/2016 9:35 AM End of Report Specimen Anatomical Collection Method Collection Time Receive d Time (Source) Location / / Volume Laterality 07/25/2016 9:08 07/26/2016 9 :08 EDT EDT Linda Tenorio MD PATHOLOGY ORDERABLES Performing Organization Address City/State/ZIP Code Phon e Number [facility] [address] [place] [address] SERVICES documented in this encounter Visit Diagnoses Not on filedocumented in this encounter Care Teams Organizational Development Consultant Relationship Specialty Start Date End Date Lexie Hilario MD PCP - General 06/21/15 documented as of this encounter
--- OUTSIDE RECORDS SUMMARY | 2022-02-08 09:12 | XMS_ITS | Encounter Summary ---
:1970 Author Organization [facility] Address [address] [place] [address] Care Team Providers Name Role Phone Linda Lee DRILL RUNNER HELPER Primary Care Provider Encounter Details Date Type Department Care Team Description 09/05/2012 Results Only [facility] Linda Tenorio MD Laboratory Services - [address] [place] [address] [address] [place] [address] Social History Tobacco Use Types Packs/Day Years Used Date Smoking Tobacco: Never Assessed Sex Assigned at Date Recorded Not on file documented as of this encounter Plan of Treatment Not on filedocumented as of this encounter Procedures Procedure Name Priority Date/Time Associated Diagnosis Comme [facility] SURGICAL PATHOLOGY Routine 09/05/2012 16:17 Resul ts for this EDT procedure are i n the results section. documented in this encounter Results SURGICAL PATHOLOGY (09/05/2012 16:17 EDT) Component Value Ref Test Analysis Performed At [facility] Method Time Signature Pathology SURGICAL PATHOLOGY REPORT THEODORE GORDON Report: Reports generated via electronic interface contain kaleigh mancilla; JAMES AGUIAR however they are lacking the format of the original report. Caution should be taken when reading/interpreting unformatte d reports. Name: ? MONISHA DAS ? Accession #: ? [id number] ? : ? 1970 (Age: 41) ??F ? Collect Date: ? 09/05/2012 ? Location: ? [facility] ? Receive Date: ? 09/05/2012 ? Provider: LINDA TENORIO MD Copy to: JOHNNY RADHA PLAN CONSULTANT ? Final Pathologic Diagnosis: ? Endocervix, polyp, biopsy: - ?Benign endocervical polyp. Document reviewed and electronically signed by: YOLIS SARMIENTO MD Report ??Date: 09/09/2012 14:36 By the signature above, the attending physician certifies th at he/she has personally conducted a gross and/or microscopic examin ation of the described specimens and rendered or confirmed the above diagnosis. Specimen(s) Received: ? Endocervical polyp Clinical History: ? Recurrent menometrorrhagia, S/P ablation 5 yrs ago Gross Description: ? Received in formalin labelled Thiago Monisha and endocervical polyp is a 1.7 x 0.8 x 0.6 cm thomas-red, irregul ar, polypoid tissue. ??The specimen is bisected and entirely submitted as (1). ??(David Cai)/darrius End of Report Specimen Anatomical Collection Method Collection Time Receive d Time (Source) Location / / Volume Laterality 09/05/2012 16:17 09/05/2012 EDT 16:17 EDT Linda Tenorio MD PATHOLOGY ORDERABLES Performing Organization Address City/State/ZIP Code Phon e Number [facility] [address] [place] [address] SERVICES [facility] [address] [place] [address] documented in this encounter Visit Diagnoses Not on filedocumented in this encounter Care Teams Homebound Teacher Relationship Specialty Start Date End Date Linda Lee NP PCP - General 01/27/09 03/17/[address] [place] [id number] documented as of this encounter
--- OUTSIDE RECORDS SUMMARY | 2022-02-08 09:12 | XMS_ITS | Encounter Summary ---
:1970 Author Organization [facility] Address [address] [place] [address] Care Team Providers Name Role Phone Lexie Hilario MD Primary Care Provider Encounter Details Date Type Department Care Team Description 12/03/2020 Lab Requisition [facility] Outr Resulting Lab, Pathology & Laboratory Provider [facility] [address] [place], [place] [address] Social History Tobacco Use Types Packs/Day Years Used Date Smoking Tobacco: Never Assessed Sex Assigned at Date Recorded Not on file documented as of this encounter Plan of Treatment Not on filedocumented as of this encounter Procedures Procedure Name Priority Date/Time Associated Diagnosis Comme nts COVID-19 TEST [facility] Today 12/03/2020 10:30 LAB PCR EDT COVID-19 TESTING Routine 12/03/2020 10:30 Results for this EDT procedure are i n the results section. documented in this encounter Results COVID-19 TEST [facility] PCR (12/03/2020 10:30 EDT) Specimen Anatomical Location Collection Method Collection Time Received Time (Source) / Laterality / Volume Swab ENTIRE NASOPHARYNX 12/03/2020 10:30 12/03 / Unknown EDT 16:08 EDT Provider Outr Resulting Lab MICROBIOLOGY - GENERAL ORD ERABLES Performing Organization Address City/State/ZIP Code Phon e Number [facility] [address] [place] [address] SERVICES COVID-19 TESTING (12/03/2020 10:30 EDT) Analysis Performed At [facility] logist Time Signature COVID-19 Negative Negative 12/03/2020 [facility] MEDICAL rt-PCR Result 20:14 EDT CENTER LABORATORY SERVICES Comment: This test has not been FDA cleared or ap proved. This test has been authorized by FDA under an EUA for use by authorized laboratories. This test has been authorized only for detection of nucleic acid fro m 2019-nCoV, not for any other viruses o r pathogens. This test is only authorized for the duration of the declaration that circumstances exist justifying the authorization of emergency use of in vitro d iagnostic tests for detection and/or selwyn gnosis of 2019-nCoV under section 564(b)(1) of Act, 21 U.S.C ?? 360bbb-3(b) (1), unless the authorization is terminated or revoked sooner. Negative results do not preclude 2019-nC oV infection and should not be used as the sole basis for treatment or other patient management decisions. Negative results must be combined with clinical observa tions, patient history, and epidemiologi divina information. Performed on the CitalDoc Fusion instrument Performing Lab [place] [facility] Lab 12/03/2020 20:14 EDT [facility] SERVICES Specimen Anatomical Collection Method Collection Time Receive d Time (Source) Location / / Volume Laterality Swab 12/03/2020 10:30 12/03/2020 EDT 16:08 EDT Provider Outr Resulting Lab MICROBIOLOGY - GENERAL ORD ERABLES Performing Organization Address City/State/ZIP Code Phon e Number [facility] [address] [place] [address] SERVICES documented in this encounter Visit Diagnoses Not on filedocumented in this encounter Additional Health Concerns Infection Onset Date Last Indicated Resolved Time COVID-19 10/26/2021 10/26/2021 11/15/2021 22:15 EDT documented as of this encounter Care Teams Plaster Applicator Relationship Specialty Start Date End Date Lexie Hilario MD PCP - General 06/21/15 documented as of this encounter
--- OUTSIDE RECORDS SUMMARY | 2022-02-08 09:12 | XMS_ITS | Encounter Summary ---
:1970 Author Organization [facility] Address [address] [place] [address] Care Team Providers Name Role Phone LeeLinda Isrrael BUILDING STONECUTTER Primary Care Provider Encounter Details Date Type Department Care Team Description 11/26/2002 Results Only [facility] Huyen Sheth, BUILDING STONECUTTER conversion [address] [place] [address] Social History Tobacco Use Types Packs/Day Years [...] this encounter Results CYTOPATHOLOGY (11/26/2002 0:00 EDT) Component Value Ref Test Analysis Performed At [facility] Method Time Signature Pathology CYTOPATHOLOGY REPORT [facility] Report: [facility] Reports generated via electronic interface contain original data; however they are lacking the format of the original report. Caution should be taken when reading/interpreting unformatte d reports. Name: ? MONISHA PEÑA ? Accession #: ? [id number] : ? 1970 (Age: 31) ??F ?Collect Date: ? 11/26/2002 Location: ? [facility] ? Receive Date: ? 11/27/2002 Provider: ?HUYEN BALDERAS BUILDING STONECUTTER Copy to: ? Specimen/Source: ?ThinPrep Pap Test, Cervix/Endoce rvix Last Menstrual Period: ? 11/16/02 ? SPECIMEN ADEQUACY ? Satisfactory for Evaluation - transformation zone component present GENERAL CATEGORIZATION ? Negative for Intraepithelial Lesion or Malignancy ? Document reviewed and electronically signed by: ? ANNALEE Marcial(ASCP) ? Report Date: ??12/03/2002 09:12 End of Report Specimen (Source) Anatomical Location Collection Method / Collectio n Time Received Time / Laterality Volume 11/26/2002 11/27/2002 Huyen Balderas NP PATHOLOGY ORDERABLES Performing Organization Address City/State/ZIP Code Phon e Number [facility] [address] [place] [address] SERVICES [facility] [address] [place] [address] documented in this encounter Visit Diagnoses Not on filedocumented in this encounter Care Teams Vault Installer Relationship Specialty Start Date End Date Linda Lee BUILDING STONECUTTER PCP - General 01/27/09 03/17/14 [address] [place] [address] documented as of this encounter
--- OUTSIDE RECORDS SUMMARY | 2022-02-08 09:12 | XMS_ITS | Encounter Summary ---
:1970 Author Organization [facility] Address [address] [place] [address] Care Team Providers Name Role Phone Lexie Hilario MD Primary Care Provider Encounter Details Date Type Department Care Team Description 12/12/2021 Lab Requisition [facility] Outr Resulting Lab, Pathology & Laboratory Provider [facility] [address] [id number] Social History Tobacco Use Types Packs/Day Years [...] encounter Results BETA HYDROXYBUTYRATE (12/12/2021 11:40 EDT) [facility] Method Time Signature Beta <0.1 <0.4 12/12/2021 [facility] MEDICAL Hydroxybutyrate mmol/L 21:45 EDT CENTER LABORATORY SERVICES Specimen Anatomical Collection Method Collection Time Receive d Time (Source) Location / / Volume Laterality Blood VENOUS BLOOD / 12/12/2021 11:40 Unknown EDT 21:17 EDT Provider Outr Resulting Lab CHEMISTRY & BLOOD GAS JORJE BALDWIN Performing Organization Address City/State/ZIP Code Phon e Number [facility] [address] [place] [address] SERVICES INSULIN (12/12/2021 11:40 EDT) athologist Signature Insulin 5.4 <29.0 12/15/2021 [facility] MEDICAL uIU/mL 9:40 EDT CENTER LABORATORY SERVICES Comment: Displayed Reference Range applies to fas ting specimens only. Specimen Anatomical Collection Method Collection Time Receive d Time (Source) Location / / Volume Laterality Blood VENOUS BLOOD / 12/12/2021 11:40 2 Unknown EDT 21:17 EDT Provider Outr Resulting Lab CHEMISTRY & BLOOD GAS JORJE BALDWIN Performing Organization Address City/State/ZIP Code Phon e Number [facility] [address] [place] [address] SERVICES documented in this encounter Visit Diagnoses Not on filedocumented in this encounter Care Teams Tumor Registrar Relationship Specialty Start Date End Date Lexie Hilario MD PCP - General 06/21/15 documented as of this encounter
--- OUTSIDE RECORDS SUMMARY | 2022-02-08 09:12 | XMS_ITS | Encounter Summary ---
:1970 Author Organization [facility] Address [address] [place] [address] Care Team Providers Name Role Phone Linda Lee DIRECTOR OF DIGITAL MARKETING Primary Care Provider Encounter Details Date Type Department Care Team Description 05/29/2011 Results Only [facility]- Johnny Carballo, RIVET HEATER GAS [address] [place], [place] [id number] (Wo rk) Social History Tobacco Use Types [...] PAP TEST- RESULT ONLY (05/29/2011 0:00 EST) Component Value Ref Test Analysis Performed At [facility] Method Time Signature Pathology CYTOPATHOLOGY REPORT [facility] Report: [facility] Reports generated via electronic interface contain original data; however they are lacking the format of the original report. Caution should be taken when reading/interpreting unformatte d reports. Name: ? MONISHA PEÑA ? Accession #: ? [id number] ? : ? 1970 (Age: 40) ??F ?Collect Da te: ? 05/29/2011 ? Location: ? [facility] ? Receive Date: ? 05/30/2011 ? Provider: JOHNNY GOMEZ APRN Copy to: ? Final Report SPECIMEN ADEQUACY ? Satisfactory for Evaluation - transformation zone component absent GENERAL CATEGORIZATION ? Negative for Intraepithelial Lesion or Malignancy ?? Last Menstural Period: 05/15/11 Other: Additional clinical information: Specimen/Source: ??Pap Test, Cervix, ThinPrep Imaging System with manual evaluation Document reviewed and electronically signed by: ? Zoë Lindquist, ANNALEE(ASCP) ? Report ??Date: 05/31/2011 16:44 HPV with Pap Test ? Date Ordered: ? 05/31/2011 ? Status: ?? Jemma d Out ?Date Complete: ? 06/05/2011 ? By: ??System Interface ? Date Reported: ? 06/05/2011 ? Interpretation RESULT: Negative for HPV types 16, 18, 31, 33, 35, 39, 45, 5 1, 52, 56, 58, 59, and 68. Comments Document reviewed and electronically signed by: ? System Interface ? Report date: 06/05/2011 By the signature above, the attending physician certifies th at he/she has personally conducted a gross and/or microscopic examin ation of the described specimens and rendered or confirmed the above diagnosis. End of Report Specimen (Source) Anatomical Location Collection Method / Collectio n Time Received Time / Laterality Volume 05/29/2011 05/30/2011 Johnny Gomez APRN PATHOLOGY ORDERABLES Performing Organization Address City/State/ZIP Code Phon e Number [facility] [address] [place] [address] SERVICES [facility] [address] [place] [address] documented in this encounter Visit Diagnoses Not on filedocumented in this encounter Care Teams Backend Java Developer Relationship Specialty Start Date End Date Linda Lee, DIRECTOR OF DIGITAL MARKETING PCP - General 01/27/09 03/17/[address] [place] [phone] documented as of this encounter
--- OUTSIDE RECORDS SUMMARY | 2022-02-08 09:12 | XMS_ITS | Encounter Summary ---
:1970 Author Organization [facility] Address [address] [place] [address] Care Team Providers Name Role Phone Lexie Hilario MD Primary Care Provider Encounter Details Date Type Department Care Team Description 03/04/2019 Lab Requisition [facility] Unknown, Provider, Pathology & Laboratory [facility] [address] [place] [address] Social History Tobacco Use Types Packs/Day Years [...] encounter Results OVA/PARASITE EXAM (03/04/2019 14:45 EST) [facility] Method Time Signature Parasite No ova and 03/05/2019 [facility] MEDICAL parasites 11:34 EST CENTER seen. LABORATORY SERVICES Specimen Anatomical Collection Method Collection Time Receive d Time (Source) Location / / Volume Laterality Feces (Feces) Stool Collect / 03/04/2019 14:45 019 Unknown EST 20:58 EST Narrative [facility] SERVICES - 03/05/2019 11:34 EST (If Cryptosporidium, Cyclospora, or Micr osporidium are suspected, specific tests must be requested.) Single negative specimen does not rule out the possibility of a parasitic infection. Provider Unknown MICROBIOLOGY - GENERAL ORDER DAVIAN Performing Organization Address City/State/ZIP Code Phon e Number [facility] [address] [place] [address] SERVICES documented in this encounter Visit Diagnoses Not on filedocumented in this encounter Additional Health Concerns Infection Onset Date Last Indicated Resolved Time COVID-19 10/26/2021 10/26/2021 11/15/2021 22:15 EDT documented as of this encounter Care Teams Roofing Superintendent Relationship Specialty Start Date End Date Lexie Hilario MD PCP - General 06/21/15 documented as of this encounter
--- OUTSIDE RECORDS SUMMARY | 2022-02-08 09:12 | XMS_ITS | Encounter Summary ---
:1970 Author Organization [facility] Address [address] [place] [address] Care Team Providers Name Role Phone Lexie Hilario MD Primary Care Provider Encounter Details Date Type Department Care Team Description 08/13/2015 Results Only [facility]- Linda Coreas MD [phone] [address] [address] Social History Tobacco Use Types Packs/Day Years [...] PAP TEST- RESULT ONLY (08/13/2015 0:00 EDT) Component Value Ref Test Analysis Performed At [facility] Range Method Time Signature Pathology CYTOPATHOLOGY REPORT [facility] Report: CENTER Reports generated via electronic interface contain origina l data; LABORATORY however they are lacking the format of the original report. SERVICES Caution should be taken when reading/interpreting unformatte d reports. Name: ? MONISHA PEÑA ? Accession #: ? [id number] ? : ? 1970 (Age: [age]) ??F ?Collect Date: ? 08/13/2015 ? Location: ? [facility] ? Receive Date: ? 08/16/2015 ? Provider: LINDA LUCAS MD Copy to: JEANINE LASSITER BAND MACHINE OPERATOR ? Final Report SPECIMEN ADEQUACY ? Satisfactory for Evaluation - transformation zone component absent GENERAL CATEGORIZATION ? Negative for Intraepithelial Lesion or Malignancy INTERPRETATION ? Fungal organisms pres ent morphologically consistent with Yamilex species. Last Menstrual Period: 07/27/2015 Hormonal/Contraceptive status: None Specimen/Source: ??Pap Test, Cervix/Endocervix, ThinPr ep Imaging System with manual evaluation Document reviewed and electronically signed by: ? Misyt Zimmer, CT(ASCP) ? Report ??Date: 08/25/2015 09:50 HPV with Pap Test ? Date Ordered: ? 08/25/2015 ? Status: ?? Signed Out ?Date Complete: ? 08/27/2015 ? By: ??System I nterface ? Date Reported: ? 08/27/2015 ? Interpretation RESULT: Negative for HPV. No E6 or E7 mRNA is detected from HPV types 16,18,31,33,35, 39,45,51,52,56,58,59,66, and 68 by temporary help agency referral clerk mediated amplification. Comments Document reviewed and electronically signed [...] n Time Received Time / Laterality Volume 08/13/2015 08/16/2015 Linda Lucas MD PATHOLOGY ORDERABLES Performing Organization Address City/State/ZIP Code Phon e Number [facility] CENTER LABORATORY [address] [place] [address] SERVICES documented in this encounter Visit Diagnoses Not on filedocumented in this encounter Care Teams Education Administrator Relationship Specialty Start Date End Date Lexie Hilario MD PCP - General 06/21/15 documented as of this encounter
--- OUTSIDE RECORDS SUMMARY | 2022-02-08 09:12 | XMS_ITS | Encounter Summary ---
:1970 Author Organization [facility] Address [address] [place] [address] Care Team Providers Name Role Phone Linda Lee APPLIED PSYCHOLOGY CHAIR Primary Care Provider Encounter Details Date Type Department Care Team Description 03/12/2012 Results Only [facility] Linda Tenorio MD Laboratory Services - [address] [place] [address] [address] [place] [address] Social History Tobacco Use Types Packs/Day Years Used Date Smoking Tobacco: Never Assessed Sex Assigned at Date Recorded Not on file documented as of this encounter Plan of Treatment Not on filedocumented as of this encounter Procedures Procedure Name Priority Date/Time Associated Diagnosis Comme [facility] SURGICAL PATHOLOGY Routine 03/12/2012 0:00 EST Re sults for this procedure are i n the results section. documented in this encounter Results SURGICAL PATHOLOGY (03/12/2012 0:00 EST) Component Value Ref Test Analysis Performed At [facility] Range Method Time Signature Pathology SURGICAL PATHOLOGY REPORT THEODORE GORDON Report: Reports generated via electronic interface contain kaleigh mancilla; JAMES AGUIAR however they are lacking the format of the original report. Caution should be taken when reading/interpreting unformatte d reports. Name: ? MONISHA DAS ? Accession #: ? [id number] ? : ? 1970 (Age: 41) ??F ? Collect Date: ? 03/12/2012 ? Location: ? [facility] ? Receive Date: ? 03/13/2012 ? Provider: LINDA TENORIO MD Copy to: JOHNNY GARCIA EXPERIMENTAL ROCKET SLED MECHANIC ? Final Pathologic Diagnosis: A. ?Endometrium, biopsy: 1. ?Secretory glands with disordered pattern. 2. ? No hyperplasia identified. B. ?Endocervix, polypectomy: ? 1. ?? Endocervical polyp. Document reviewed and electronically signed by: TURNER MONZON MD Report ??Date: 03/15/2012 16:38 By the signature above, the attending physician certifies th at he/she has personally conducted a gross and/or microscopic examin ation of the described specimens and rendered or confirmed the above diagnosis. Specimen(s) Received: A. ?Endometrial bx B. ? Endocervical polyp Clinical History: ? Irregular cycles, DUB; prior ablation; endocx polyp Gross Description: ? Received in formalin labelled Thiago, Monisha and endometrial bx is approximately 6 cc of clotte d blood and blood tinged mucus admixed with multiple fragments of red-brown tissue. ??The specimen is submitted entirely as (A1) through (A3) following filtration. Received in formalin labelled Thiago, Monisha and endocervical polyp is a thomas-pink polypoid structure measuring 0.9 x 0.4 x 0.2 cm. ??Also present is a small amount of attached blo od tinged mucus. ??The specimen is submitted intact as (B). ??(ISAMAR Rendon)/darrius End of Report Specimen (Source) Anatomical Collection Method Collection Time Re ceived Time Location / / Volume Laterality 03/12/2012 03/13/2012 8:20 EST Linda Tenorio MD PATHOLOGY ORDERABLES Performing Organization Address City/State/ZIP Code Phon e Number [facility] [address] [place] [address] SERVICES [facility] [address] [place] [address] documented in this encounter Visit Diagnoses Not on filedocumented in this encounter Care Teams Guest Services Attendant Relationship Specialty Start Date End Date Linda Lee, JANES PCP - General 01/27/09 03/17/[address] [place] [id number] documented as of this encounter
--- OUTSIDE RECORDS SUMMARY | 2022-02-08 09:12 | XMS_ITS | Encounter Summary ---
:1970 Author Organization [facility] Address [address] [place] [address] Care Team Providers Name Role Phone Lexie Hilario MD Primary Care Provider Encounter Details Date Type Department Care Team Description 02/01/2022 Lab Requisition [facility] Center Outr Resulting Lab, Pathology & Laboratory Provider [facility] [address] [place], [place] [address] Social History Tobacco Use Types Packs/Day Years Used Date Smoking Tobacco: Never Assessed Sex Assigned at Date Recorded Not on file documented as of this encounter Plan of Treatment Not on filedocumented as of this encounter Procedures Procedure Name Priority Date/Time Associated Diagnosis Comme nts COVID-19 TEST [facility] Today 01/31/2022 10:00 LAB PCR EDT COVID-19 TESTING Routine 01/31/2022 10:00 Results for this EDT procedure are i n the results section. documented in this encounter Results COVID-19 TEST [facility] LAB PCR (01/31/2022 10:00 EDT) Specimen Anatomical Collection Method Collection Time Receive d Time (Source) Location / / Volume Laterality Swab 01/31/2022 10:00 02/01/2022 EDT 16:25 EDT Provider Outr Resulting Lab MICROBIOLOGY - GENERAL ORD ERABLES Performing Organization Address City/State/ZIP Code Phon e Number [facility] CENTER LABORATORY [address] [place] [address] SERVICES COVID-19 TESTING (01/31/2022 10:00 EDT) Analysis Performed At Patho logist Time Signature COVID-19 Negative Negative 02/01/2022 [facility] rt-PCR Result 19:33 EDT CENTER LABORATORY SERVICES Comment: This test [...] and epidemiologi divina information. Performed on the Thismomenther Fusion instrument Performing Lab [facility] Lab 02/01/2022 19:33 EDT [facility] SERVICES Specimen Anatomical Collection Method Collection Time Receive d Time (Source) Location / / Volume Laterality Swab 01/31/2022 10:00 02/01/2022 EDT 16:25 EDT Provider Outr Resulting Lab MICROBIOLOGY - GENERAL ORD ERABLES Performing Organization Address City/State/ZIP Code Phon e Number [facility] [address] [place] [address] SERVICES documented in this encounter Visit Diagnoses Not on filedocumented in this encounter Care Teams Desktop Support Technician Relationship Specialty Start Date End Date Lexie Hilario MD PCP - General 06/21/15 documented as of this encounter
--- OUTSIDE RECORDS SUMMARY | 2022-02-08 09:12 | XMS_ITS ---
:1970 Author Care Team Providers Name Role Phone DR. JONO AG Primary Care Provider [phone] DR. JONO AG Referring Provider [phone] Allergies Code Code System Name Reaction Severity Status Onset 1223 RxNorm Atropine Hives ? Active ? 271521 RxNorm Eplerenone Swelling ? Active ? 59942 RxNorm Iron Edema ? Active ? 9997 [...] Adenomatous Polyp of Colon Active 07/13/2020 ? Marylou Thyroiditis Active 07/13/2020 ? Dehydration Active 07/13/2020 [...] 07/12/2020 XR, Foot, 3 or [facility] - Radiology [address] [place] [address] (Work Place) 07/12/2020 XR, Foot, 3 or More [facility] - Radiology [address] [place] [address] (Work Place) Results Lab Results Date Name Specimen Result Interpretation Description Value Range Status Address ? 07/23/2020 Potassium, P Normal K 3.6 mEq/L 3.5-5.1 Final [facility] Serum or mEq/L [facility] Plasma Laboratory & Pathology: [address] [place] [address] 04/12/2020 SARS CoV 2 ? Upper nasopharyngeal ? F inal [facility] Respiratory Hospi heidy (COVID-19), Source Labor atory QL, senior c software engineer-PCR, & Respiratory Patho logy: Specimen [address] [place] [address] ? ? Normal Sars Cov-2 not detected not Final [facility] RNA detected Hospital (Covid-19) Labora tory & Pathology: [address] [place] [address] 01/17/2020 Magnesium, P Normal mg 2.2 mg/dL 1.8-2.4 Final [facility] Serum or mg/dL [facility] Plasma Laboratory & Pathology: [address] [place] [address] 01/17/2020 BMP, Serum P High Glu 115 mg/dL 70-100 Final [facility] or Plasma mg/dL [facility] Laboratory & Pathology: [address] [place] [address] ? ? P Normal Bun 18 mg/dL 7-18 Final [facility] mg/dL [facility] Laboratory & Pathology: [address] [place] [address] ? ? P High Creat 1.05 mg/dL 0.55-1.02 Final [facility] mg/dL [facility] Laboratory & Pathology: [address] [place] [address] ? ? P Normal Na 140 mEq/L 136-145 [facility]L [facility] Laboratory & Pathology: [address] [place] [address] ? ? P Normal K 3.5 mEq/L 3.5-5.1 Final [facility] e mEq/L [facility] Laboratory & Pathology: [address] [place] [address] ? ? P Normal Cl 103 mEq/L 98-107 Final [facility] mEq/L [facility] Laboratory & Pathology: [address] [place] [address] ? ? P Normal Co2 27 mEq/L 21-31 Final [facility] mEq/L [facility] Laboratory & Pathology: [address] [place] [address] ? ? P Normal Ca 9.2 mg/dL 8.5-10.1 Final [facility] mg[facility]dL [facility] Laboratory & Pathology: [address] [place] [address] ? ? P ? Agap 14.4 ? Final [facility] calculation Hospi heidy Laboratory & Pathology: [address] [place] [address] ? ? P ? Bn/cr 16.7 ratio ? Final [facility] Laboratory & Pathology: [address] [place] [address] ? ? P ? Egfraa 67.24 ? Final [facility] Laboratory & Pathology: [address] [place] [address] ? ? P ? Egfrnaa 55.48 ? Final [facility] Laboratory & Pathology: [address] [place] [address] 09/30/2019 Thiamine WB Normal Vit. B1, 127.7 nmol/L 66.5-200. Final [facility] (Vit B1) Whole Blood 0 nmol/L H ospital Laboratory & Pathology: [address] [place] [address] 09/30/2019 PTH P Normal PTH, 34 pg/mL 15-65 Final [facility] (Parathyroid Intact pg/mL Hosp ital Hormone), Laborat ory Intact, & Serum or Patholog y: Plasma [address] [place] [address] 09/30/2019 TSH, Serum P Normal Tsh 2.034 mIU/mL 0.360-3.7 Final [facility] or Plasma 40 mIU/mL Hosp ital Laboratory & Pathology: [address] [place] [address] 09/30/2019 T4, Free, P Normal Ft4 0.98 NG/dL 0.76-1.46 Fin [facility] Serum NG/dL [facility] Laboratory & Pathology: [address] [place] [address] 09/30/2019 CMP, Serum P Normal Na 138 mEq/L 136-145 Final [facility] or Plasma mEq/L Hospita l Laboratory & Pathology: [address] [place] [address] ? ? P Normal K 4.2 mEq/L 3.5-5.1 Final [facility] mEq/L [facility] Laboratory & Pathology: [address] [place] [address] ? ? P Normal Cl 101 mEq/L 98-107 Final [facility] mEq/L [facility] Laboratory & Pathology: [address] [place] [address] ? ? P Normal Co2 27 mEq/L 21-31 Final [facility] mEq/L [facility] Laboratory & Pathology: [address] [place] [address] ? ? P ? Agap 13.9 ? Final [facility] calculation Hospi heidy Laboratory & Pathology: [address] [place] [address] ? ? P Normal Glu 97 mg/dL 70-100 Final [facility] mg/dL [facility] Laboratory & Pathology: [address] [place] [address] ? ? P High Bun 24 mg/dL 7-18 Final [facility] mg/dL [facility] Laboratory & Pathology: [address] [place] [address] ? ? P Normal Creat 0.99 mg/dL 0.55-1.02 Final [facility] mg/dL [facility] Laboratory & Pathology: [address] [place] [address] ? ? P ? Bn/cr 24.2 ratio ? Final [facility] Laboratory & Pathology: [address] [place] [address] ? ? P Normal Ca 9.2 mg/dL 8.5-10.1 Final [facility]dL [facility] Laboratory & Pathology: [address] [place] [address] ? ? P Normal Alkp 55 U/L 39-100 Final [facility] U/L [facility] Laboratory & Pathology: [address] [place] [address] ? ? P Normal Alt 41 U/L 14-59 U/L Final [facility] Laboratory & Pathology: [address] [place] [address] ? ? P Normal Ast 25 U/L 15-37 U/L Final [facility] Laboratory & Pathology: [address] [place] [address] ? ? P Normal Tbil 0.3 mg/dL <=1.2 Final [facility] mg/dL [facility] Laboratory & Pathology: [address] [place] [address] ? ? P Normal Tp 7.0 g/dL 6.4-8.2 Final [facility] g/dL [facility] Laboratory & Pathology: [address] [place] [address] ? ? P Normal Alb 3.8 g/dL 3.4-5.0 Final [facility] g/dL [facility] Laboratory & Pathology: [address] [place] [address] ? ? P ? Glob 3.22 mg/dL ? Final [facility] Laboratory & Pathology: [address] [place] [address] ? ? P ? A/g 1.2 calc ? Final [facility] Laboratory & Pathology: [address] [place] [address] ? ? P ? Egfraa 72.26 ? Final [facility] Laboratory & Pathology: [address] [place] [address] ? ? P ? Egfrnaa 59.62 ? [facility] Laboratory & Pathology: [address] [place] [address] 09/30/2019 Vitamin D2, P Low Vitd 29.10 NG/mL >30.00 Fin al [facility] 25-Hydroxy, NG/mL Hospi [facility] Serum Laboratory & Pathology: [address] [place] [address] 09/30/2019 Ferritin, P Normal Ferr 92 NG/mL 8-252 Final [facility] Serum or NG/mL [facility] Plasma Laboratory & Pathology: [address] [place] [address] 09/30/2019 Lipid Panel, P High Chol 271 mg/dL <200 Elvia l [facility] Serum mg/dL [facility] Laboratory & Pathology: [address] [place] [address] ? ? P Normal Hdl 45 mg/dL 40-60 Final [facility] mg/dL [facility] Laboratory & Pathology: [address] [place] [address] ? ? P High Trig 391 mg/dL 30-150 Final [facility] mg/dL [facility] Laboratory & Pathology: [address] [place] [address] ? ? P High LDL(C) 148 calc <100 calc Final [facility] Laboratory & Pathology: [address] [place] [address] ? ? P ? Risk 6.0 calc ? Final [facility] Laboratory & Pathology: [address] [place] [address] 09/30/2019 Vitamin B12, P Normal B12 712.00 pg/mL 193.00-9 8 Final [facility] Serum 6.00 Hospital pg/mL Laboratory & Pathology: [address] [place] [address] 09/30/2019 Folate, P Normal Fol 24.0 NG/mL 8.6-58.9 Final [facility] Serum NG/mL [facility] Laboratory & Pathology: [address] [place] [address] 09/30/2019 HbA1C WB High A1C 6.5 % <5.7 % Final [facility] e (Hemoglobin Hospi [facility] a1C), Blood Labor atory & Pathology: [address] [place] [address] ? ? WB High Estavegluc 140 calc <140 calc Final [facility] Laboratory & Pathology: [address] [place] [address] 09/30/2019 CBC W/ Auto WB Normal Wbc 9.2 10^3/mm^3 4.8-10.8 Final [facility] Diff 10^3/mm^3 Hospita l Laboratory & Pathology: [address] [place] [address] ? ? WB Normal Rbc 4.48 10^6/mm^3 3.90-5.03 Final [facility] 10^6/mm^3 Hospita l Laboratory & Pathology: [address] [place] [address] ? ? WB Normal Hgb 12.8 g/dL 12.0-15.5 Final [facility] age g/dL Hospital Laboratory & Pathology: [address] [place] [address] ? ? WB Normal Hct 39 % 36-46 % Final [facility] Laboratory & Pathology: [address] [place] [address] ? ? WB Normal Mcv 86.2 fL 81.0-99.[address] [facility] Laboratory & Pathology: [address] [place] [address] ? ? WB Normal Mch 28.6 pg 27.1-32.0 Final [facility] pg [facility] Laboratory & Pathology: [address] [place] [address] ? ? WB Normal Mchc 33 g/dL 33-36 Final [facility] g/dL [facility] Laboratory & Pathology: [address] [place] [address] ? ? WB Normal Rdw 14.3 % 11.6-14.8 Final [facility] Laboratory & Pathology: [address] [place] [address] ? ? WB Normal Platelets 354 10^3/mm^3 150-400 Final [facility] 10^3/mm^3 Hospita l Laboratory & Pathology: [address] [place] [address] ? ? WB Normal Ne# 4.25 10^3/mm^3 1.20-6.70 Final [facility] 10^3/mm^3 Hospita l Laboratory & Pathology: [address] [place] [address] ? ? WB High Ly# 3.88 10^3/mm^3 1.20-3.40 Final [facility] 10^3/mm^3 Hospita l Laboratory & Pathology: [address] [place] [address] ? ? WB Normal Mo# 0.67 10^3/mm^3 0.11-0.70 Final [facility] 10^3/mm^3 Hospita l Laboratory & Pathology: [address] [place] [address] ? ? WB Normal Eo# 0.37 10^3/mm^3 0.00-0.70 Final [facility] 10^3/mm^3 Hospita l Laboratory & Pathology: [address] [place] [address] ? ? WB Normal Ba# 0.05 10^3/mm^3 0.00-0.20 Final [facility] 10^3/mm^3 Hospita l Laboratory & Pathology: [address] [place] [address] ? ? WB Normal Neut% 46 % per 100 40-74 % Final [facility] WBC per 100 Hospital WBC Laboratory & Pathology: [address] [place] [address] ? ? WB Normal Ly% 42 % per 100 19-48 % Final [facility] WBC per 100 Hospital WBC Laboratory & Pathology: [address] [place] [address] ? ? WB Normal Mo% 7.3 % per 100 3.0-10.0 Final [facility] WBC % per 100 Hospita l WBC Laboratory & Pathology: [address] [place] [address] ? ? WB Normal Eo% 4.0 % per 100 1.0-7.0 % Final [facility] WBC per 100 Hospital WBC Laboratory & Pathology: [address] [place] [address] ? ? WB Normal Ba% 0.5 % per 100 0.0-2.0 % Final [facility] WBC per 100 Hospital WBC Laboratory & Pathology: [address] [place] [address] 09/30/2019 Iron + Total S Normal Fe 66 ug/dL 50-170 Final [facility] Iron-binding ug/dL Hosp ital Capacity Laborato ry (TIBC), & Serum Pathology: [address] [place] [address] ? ? S Normal Tibc 316 ug/dL 250-450 Final [facility] e ug/dL [facility] Laboratory & Pathology: [address] [place] [address] ? ? S ? Sat 20.8 % ? Final [facility] Laboratory & Pathology: [address] [place] [address] Past Encounters None recorded. Social History Tobacco [...]
--- OUTSIDE RECORDS SUMMARY | 2022-02-08 09:12 | XMS_ITS | Encounter Summary ---
:1970 Author Organization [facility] Address [address] [place] [address] Care Team Providers Name Role Phone Linda Maher PATTERN PUNCHER Primary Care Provider Encounter Details Date Type Department Care Team Description 09/09/2004 Results Only [facility] - Clay Chaidez MD conversion [address] [place] [address] Social History Tobacco Use Types Packs/Day Years Used Date Smoking Tobacco: Never Assessed Sex Assigned at Date Recorded Not on file documented as of this encounter Plan of Treatment Not on filedocumented as of this encounter Procedures Procedure Name Priority Date/Time Associated Diagnosis Comme nts SURGICAL PATHOLOGY Routine 09/09/2004 0:00 EDT Re sults for this procedure are i n the results section. documented in this encounter Results SURGICAL PATHOLOGY (09/09/2004 0:00 EDT) Component Value Ref Test Analysis Performed At [facility] Method Time Signature Pathology SURGICAL PATHOLOGY REPORT THEODORE GORDON Report: Reports generated via electronic interface contain marioa l data; JAMES AGUIAR however they are lacking the format of the original report. Caution should be taken when reading/interpreting unformatte d reports. Name: ? MONISHA DAS ? Accession #: ? [id number] ? : ? 1970 (Age: 33) ??F ? Collect Date: ? 09/09/2004 ? Location: ? [facility] ? Receive Date: ? 09/12/2004 ? Provider: CLAY WILLIS MD Copy to: LINDA MAHER PATTERN PUNCHER ? Final Pathologic Diagnosis: ? Cervix, polypectomy: - Benign endocervical polyp. Document reviewed and electronically signed by: Santos Devries MD Report ??Date: 09/14/2004 16:22 By the signature above, the attending physician certifies th at he/she has personally conducted a gross and/or microscopic examin ation of the described specimens and rendered or confirmed the above diagnosis. Specimen(s) Received: ? Cervical polyp Clinical History: ? Gross Description: ? Received in formalin labelled Thiago is a 2.5 x 1.0 x 0.2 cm portion of thomas-brown slightly nodular soft tissue. ??Entire ly submitted in one cassette. (Robert Perkins)/[facility] End of Report Specimen (Source) Anatomical Collection Method Collection Time Re ceived Time Location / / Volume Laterality 09/09/2004 09/12/2004 15:2 3 EDT Clay Willis MD PATHOLOGY ORDERABLES Performing Organization Address City/State/ZIP Code Phon e Number [facility] [address] [place] [address] SERVICES [facility] [address] [place] [address] documented in this encounter Visit Diagnoses Not on filedocumented in this encounter Care Teams Welding Systems And Equipment Repairer Relationship Specialty Start Date End Date Linda Maher NP PCP - General 01/27/09 03/17/14 [address] [place] [address] documented as of this encounter
--- OUTSIDE RECORDS SUMMARY | 2022-02-08 09:12 | XMS_ITS | Encounter Summary ---
:1970 Author Organization [facility] Address [address] [place] [address] Care Team Providers Name Role Phone Perez Connell MD Primary Care Provider [phone] Encounter Details Date Type Department Care Team Description 06/15/2015 Hospital Encounter [facility]- Cleo Unknown, Provider, [facility] [address] [facility] [phone] [place] [address] (Work) [phone] Social History Tobacco Use Types Packs/Day Years Used Date Smoking Tobacco: Never Assessed Sex Assigned at Date Recorded Not on file documented as of this encounter Discharge Disposition Disposition Code Departure Means Destination Home or Self [facility] documented in this encounter Plan of Treatment Not on filedocumented as of this encounter Visit Diagnoses Not on filedocumented in this encounter Care Teams Director Global Intelligence Relationship Specialty Start Date End Date Perez Connell MD PCP - General 03/18/14 06/20/[address] [place] [address] [place] [address] documented as of this encounter
--- OUTSIDE RECORDS SUMMARY | 2022-02-08 09:12 | XMS_ITS | Encounter Summary ---
:1970 Author Organization [facility] Address [address] [place] [address] Care Team Providers Name Role Phone Lexie Hilario MD Primary Care Provider Encounter Details Date Type Department Care Team Description 10/23/2019 Lab Requisition [facility] Outr Resulting Lab, Pathology & Laboratory Provider [facility] [address] [place], [place] [id number] Social History Tobacco Use Types Packs/Day Years Used Date Smoking Tobacco: Never Assessed Sex Assigned at Date Recorded Not on file documented as of this encounter Plan of Treatment Not on filedocumented as of this encounter Procedures Procedure Name Priority Date/Time Associated Diagnosis Comme nts HOLD SST Today 10/23/2019 15:51 Results for this EDT procedure are i n the results section. MEASLES IGG AB Today 10/23/2019 15:51 Results f or this EDT procedure are i n the results section. RUBELLA IGG Today 10/23/2019 15:51 Results for this ANTIBODY EDT procedure are i n the results section. HEPATITIS B SURFACE Today 10/23/2019 15:51 Resu lts for this ANTIBODY EDT procedure are i n the results section. VARICELLA IGG Today 10/23/2019 15:51 Results fo r this ANTIBODY EDT procedure are i n the results section. MUMPS ANTIBODY IGG Today 10/23/2019 15:51 Resul ts for this EDT procedure are i n the results section. documented in this encounter Results HOLD SST (10/23/2019 15:51 EDT) P athologist Signature Hold Hold 10/23/2019 [facility] 22:45 EDT [facility] Specimen Anatomical Collection Method Collection Time Receive d Time (Source) Location / / Volume Laterality Blood VENOUS BLOOD / 10/23/2019 15:51 0 Unknown EDT 21:30 EDT Provider Outr Resulting Lab LAB INFO SERVICE AND SUPPO RT & PHONE RESULT Performing Organization Address City/[facility]/ZIP Code Phon e Number [facility] [address] [place] [address] SERVICES HEPATITIS B SURFACE ANTIBODY (10/23/2019 15:51 EDT) Analysis Performed At [facility] Signature Hep B Surface Ab, <3.1 See Note 10/24/2019 [facility] Quantitative mIU/mL 8:02 EDT [facility]ENTER [facility] Comment: Reference Range for Hep B Surface Ab, Qu ant: Positive: >= 10.0 mIU/mL Negative: ??< 10.0 mIU/mL Patient is presumed to not be immune to infection with Hepatitis B Virus. Hep B Surface Ab, Negative See Note 10/24/2019 8:02 EDT [facility] Qualitative LABORATORY SERVICE S Comment: Reference Range for Hep B Surface Ab, Qu al: Unvaccinated: ??Negative Vaccinated: ??Positive Specimen Anatomical Collection Method Collection Time Receive d Time (Source) Location / / Volume Laterality Blood VENOUS BLOOD / 10/23/2019 15:51 0 Unknown EDT 21:30 EDT Provider Outr Resulting Lab CHEMISTRY & BLOOD GAS ORDE RABLES Performing Organization Address [facility] Phon e Number [facility] [address] [place] [address] SERVICES MEASLES IGG AB (10/23/2019 15:51 EDT) Analysis Performed At [facility] Signature Measles IgG Ab Positive See Note 10/24/2019 [facility] 11:07 EDT [facility]ENTER [facility] Comment: Presence of detectable measles virus IgG antibodies. Specimen Anatomical Collection Method Collection Time Receive d Time (Source) Location / / Volume Laterality Blood VENOUS BLOOD / 10/23/2019 15:51 0 Unknown EDT 21:30 EDT Provider Outr Resulting Lab IMMUNOLOGY AND SEROLOGY OR DERABLES Performing Organization Address City/[facility]/ZIP [facility] Phon e Number [facility] [address] [place] [address] SERVICES VARICELLA IGG ANTIBODY (10/23/2019 15:51 EDT) Analysis Performed At [facility] Time Signature Varicella IgG Positive See Note 10/24/2019 [facility] Ab 11:07 EDT CENTER [facility] Comment: Presence of detectable Varicell a Zoster virus IgG antibodies. Specimen Anatomical Collection Method Collection Time Receive d Time (Source) Location / / Volume Laterality Blood VENOUS BLOOD / 10/23/2019 15:51 0 Unknown EDT 21:30 EDT Provider Outr Resulting Lab IMMUNOLOGY AND SEROLOGY OR DERABLES Performing Organization Address City/[facility]/ZIP Code Phon e Number [facility] [address] [place] [address] SERVICES MUMPS ANTIBODY IGG (10/23/2019 15:51 EDT) Analysis Performed At [facility] Time Signature Mumps Antibody Positive See Note 10/24/2019 [facility] 11:07 EDT [facility] Comment: Presence of detectable mumps vi erick IgG antibodies. Specimen Anatomical Collection Method Collection Time Receive d Time (Source) Location / / Volume Laterality Blood VENOUS BLOOD / 10/23/2019 15:51 0 Unknown EDT 21:30 EDT Provider Outr Resulting Lab IMMUNOLOGY AND SEROLOGY OR DERABLES Performing Organization Address City/[facility] Phon e Number [facility] [address] [place] [address] SERVICES RUBELLA IGG ANTIBODY (10/23/2019 15:51 EDT) Analysis Performed At [facility] Signature Rubella IgG Ab Positive See Note 10/24/2019 [facility] 11:08 EDT [facility]ENTER [facility] Comment: Positive for IgG antibodies to Rubella virus. Specimen Anatomical Collection Method Collection Time Receive d Time (Source) Location / / Volume Laterality Blood VENOUS BLOOD / 10/23/2019 15:51 0 Unknown EDT 21:30 EDT Provider Outr Resulting Lab CHEMISTRY & BLOOD GAS JORJE BALDWIN Performing Organization Address City/[facility] Phon e Number [facility] [address] [place] [address] SERVICES documented in this encounter Visit Diagnoses Not on filedocumented in this encounter Additional Health Concerns Infection Onset Date Last Indicated Resolved Time COVID-19 10/26/2021 10/26/2021 11/15/2021 22:15 EDT documented as of this encounter Care Teams Computer Game Programmer Relationship Specialty Start Date End Date Lexie Hilario MD PCP - General 06/21/15 documented as of this encounter
--- OUTSIDE RECORDS SUMMARY | 2022-02-08 09:12 | XMS_ITS | Encounter Summary ---
:1970 Author Organization [facility] Address [address] [place] [address] Care Team Providers Name Role Phone Linda Maher GENERAL CLERK Primary Care Provider Encounter Details Date Type Department Care Team Description 09/09/2007 Results Only [facility] - Clay Chaidez MD conversion [address] [place] [address] Social History Tobacco Use Types Packs/Day Years Used Date Smoking Tobacco: Never Assessed Sex Assigned at Date Recorded Not on file documented as of this encounter Plan of Treatment Not on filedocumented as of this encounter Procedures Procedure Name Priority Date/Time Associated Diagnosis Comme nts SURGICAL PATHOLOGY Routine 09/09/2007 0:00 EDT Re sults for this procedure are i n the results section. documented in this encounter Results SURGICAL PATHOLOGY (09/09/2007 0:00 EDT) Component Value Ref Test Analysis Performed At [facility] Method Time Signature Pathology SURGICAL PATHOLOGY REPORT THEODORE GORDON Report: Reports generated via electronic interface contain marioa l data; JAMES AGUIAR however they are lacking the format of the original report. Caution should be taken when reading/interpreting unformatte d reports. Name: ? MONISHA DAS ? Accession #: ? [id number] ? : ? 1970 (Age: 36) ??F ? Collect Date: ? 09/09/2007 ? Location: ? [facility] ? Receive Date: ? 09/09/2007 ? Provider: CLAY GENAO MD Copy to: LINDA MAHER GENERAL CLERK ? Final Pathologic Diagnosis: A. ?Endometrium, biopsy: 1. ?Secretory endometrium (approximately day 25 ). B. ?Cervix, polyp, biopsy: ? 1. ?? [...] ? Taking Progesterone 5 mg, day 14->24; menorrhagia; LM P: 08/17/07 Gross Description: ? Received in formalin labelled Thiago and endometrial bx is a 3.0 x 2.5 x 1.0 cm aggregate of mu cinous thomas-white and dark brown hemorrhagic cores of soft tissue. ??The specimen is submitted in toto as (A1) and (A2). Received in formalin labelled Thiago and cervical polyp is a 2.4 x 1.2 x 0.6 cm thomas-pink umbilicated polypoid structure. ??The resection margin is inked blue. ??The specimen is bise cted and entirely submitted as (B). ??(Robert Milton/darrius End of Report Specimen (Source) Anatomical Collection Method Collection Time Re ceived Time Location / / Volume Laterality 09/09/2007 09/09/2007 13:5 7 EDT Clay Genao MD PATHOLOGY ORDERABLES Performing Organization Address City/State/ZIP Code Phon e Number [facility] [address] [place] [address] SERVICES [facility] [address] [place] [address] documented in this encounter Visit Diagnoses Not on filedocumented in this encounter Care Teams School Bus Driver/Mechanic Relationship Specialty Start Date End Date Linda Maher, GENERAL CLERK PCP - General 01/27/09 03/17/14 [address] [place] [address] documented as of this encounter
--- OUTSIDE RECORDS SUMMARY | 2022-02-08 09:12 | XMS_ITS | Encounter Summary ---
:1970 Author Organization [facility] Address [address] [place] [address] Care Team Providers Name Role Phone Lexie Hilario MD Primary Care Provider Encounter Details Date Type Department Care Team Description 08/08/2021 Lab Requisition [facility] Outr Resulting Lab, Pathology & Laboratory Provider [facility] [address] [place], [place] [address] Social History Tobacco Use Types Packs/Day Years [...] this encounter Results MONO-TEST (08/08/2021 14:55 EDT) P athologist Signature [place] Test Negative Negative 08/09/2021 [facility] 18:56 EDT CENTER [facility] SERVICES Specimen Anatomical Collection Method Collection Time Receive d Time (Source) Location / / Volume Laterality Blood VENOUS BLOOD / 08/08/2021 14:55 Unknown EDT 18:03 EDT Provider Outr Resulting Lab CHEMISTRY & BLOOD GAS JORJE Hilario Organization Address City/State/ZIP Code Phon e Number [facility] [address] [place] [address] SERVICES documented in this encounter Visit Diagnoses Not on filedocumented in this encounter Additional Health Concerns Infection Onset Date Last Indicated Resolved Time COVID-19 10/26/2021 10/26/2021 11/15/2021 22:15 EDT documented as of this encounter Care Teams Census Taker Relationship Specialty Start Date End Date Lexie Hilario MD PCP - General 06/21/15 documented as of this encounter
--- OUTSIDE RECORDS SUMMARY | 2022-02-08 09:12 | XMS_ITS | Encounter Summary ---
:1970 Author Organization [facility] Address [address] [place] [address] Care Team Providers Name Role Phone Linda Lee CONCRETE ANALYST Primary Care Provider Encounter Details Date Type Department Care Team Description 03/16/2014 Results Only [facility]- Araceli Knutson, [address] [place] [address] [place], [place] [id number] (Wo rk) Social History Tobacco Use Types Packs/Day Years Used Date Smoking Tobacco: Never Assessed Sex Assigned at Date Recorded Not on file documented as of this encounter Plan of Treatment Not on filedocumented as of this encounter Procedures Procedure Name Priority Date/Time Associated Diagnosis Comme [facility] SURGICAL PATHOLOGY Routine 03/16/2014 17:34 Resul ts for this EST procedure are i n the results section. documented in this encounter Results SURGICAL PATHOLOGY (03/16/2014 17:34 EST) Component Value Ref Test Analysis Performed At [facility] Method Time Signature Pathology SURGICAL PATHOLOGY REPORT [facility] MED[facility] Report: Reports generated via electronic interface contain [facility] data; CENTER however they are lacking the format of the original report. LABORATORY Caution should be taken when reading/interpreting unformat genoveva reports. SERVICES Name: ? MONISHA PEÑA ? Accession #: ? [id number] ? : ? 1970 (Age: 43) ??F ? Collect Date: ? 03/16/2014 ? Location: ? [facility] ? Receive Date: ? 03/16/2014 ? Provider: ARACELI RODRIGUEZ MD Copy to: JOHNNY CURTISGERI COMPUTER REPAIRER ? Final Pathologic Diagnosis: COLON, ASCENDING, POLYP, BIOPSY: - ??Hyperplastic polyp (1). Document reviewed and electronically signed by: Carlene Castro MD Report ??Date: 03/18/2014 08:00 By the signature above, the attending physician certifies th at he/she has personally conducted a gross and/or microscopic examin ation of the described specimens and rendered or confirmed the above diagnosis. Specimen(s) Received: Ascending colon polyp Clinical History: Rectal bleeding Gross Description: ? Received in formalin labelled with proper patient identification (initials A, S) and ascending colon polyp is a single pi nk-thomas polypoid tissue (0.2 x 0.2 x 0.1 cm). Submitted intact in 1. Francisca Pena 03/16/2014 05:58 PM End of Report Specimen Anatomical Collection Method Collection Time Receive d Time (Source) Location / / Volume Laterality 03/16/2014 17:34 03/16/2014 EST 17:34 EST Araceli Rodriguez MD PATHOLOGY ORDERABLES Performing Organization Address City/State/ZIP Code Phon e Number [facility] [address] [place] [address] SERVICES documented in this encounter Visit Diagnoses Not on filedocumented in this encounter Care Teams Dialysis Clinical Manager Relationship Specialty Start Date End Date Linda Lee NP PCP - General 01/27/09 03/17/[address] [place] [phone] documented as of this encounter
--- OUTSIDE RECORDS SUMMARY | 2022-02-08 09:12 | XMS_ITS | Encounter Summary ---
:1970 Author Organization [facility] Address [address] [place] [address] Care Team Providers Name Role Phone Lexie Hilario MD Primary Care Provider Encounter Details Date Type Department Care Team Description 05/19/2019 Lab Requisition [facility] Unknown, Provider, Pathology & Laboratory [facility] [address] [facility] [place], [place] [id number] Social History Tobacco Use Types Packs/Day Years [...] Results (ABNORMAL) THYROID ANTIBODIES (05/19/2019 8:10 EST) [facility] Method Time Signature Anti-Thyroglobulin 117 (H) <=60 U/mL 05/20/2019 [facility] 10:29 EST [facility] Thyroperoxidase Ab >1,300 <=60 U/mL 05/20/2019 [facility] 10:29 [facility] Specimen Anatomical Collection Method Collection Time Receive d Time (Source) Location / / Volume Laterality Blood VENOUS BLOOD / 05/19/2019 8:10 05/19/2019 Unknown EST 15:49 EST Provider Unknown CHEMISTRY & BLOOD GAS ORDERA BLES Performing Organization Address City/State/ZIP Code Phon e Number [facility] [address] [place] [address] SERVICES documented in this encounter Visit Diagnoses Not on filedocumented in this encounter Additional Health Concerns Infection Onset Date Last Indicated Resolved Time COVID-19 10/26/2021 10/26/2021 11/15/2021 22:15 EDT documented as of this encounter Care Teams Special Education Teachers Relationship Specialty Start Date End Date Lexie Hilario MD PCP - General 06/21/15 documented as of this encounter
--- OUTSIDE RECORDS SUMMARY | 2022-02-08 09:12 | XMS_ITS | Encounter Summary ---
:1970 Author Organization [facility] Address [address] [place] [address] Care Team Providers Name Role Phone Linda Lee WARP TYING MACHINE KNOTTER Primary Care Provider Encounter Details Date Type Department Care Team Description 08/08/2004 Results Only [facility] - Yarelis Blancas CNM [facility] [address] [place] [address] Social History Tobacco Use Types Packs/Day Years [...] this encounter Results CYTOPATHOLOGY (08/08/2004 0:00 EDT) Component Value Ref Test Analysis Performed At [facility] Method Time Signature Pathology CYTOPATHOLOGY REPORT [facility] Report: [facility] Reports generated via electronic interface contain original data; however they are lacking the format of the original report. Caution should be taken when reading/interpreting unformatte d reports. Name: ? MONISHA PEÑA ? Accession #: ? [id number] : ? 1970 (Age: 33) ??F ?Collect Date: ? 08/08/2004 Location: ? [facility] ? Receive Date: ? 08/09/2004 Provider: ?YARELIS العلي CNM Copy to: ? Specimen/Source: ?ThinPrep Pap Test, Cervix/Endoce rvix Last Menstrual Period: ? 06/08/04 Menstrual/ Status: ? Other: ? HPVA - HPV testing requested if ASC-US on the current ThinPr ep Pap test. Additional clinical information: Cervical polyps prese nt noted @ time of pap smear. ? SPECIMEN ADEQUACY ? Satisfactory for Evaluation - transformation zone component present GENERAL CATEGORIZATION ? Negative for Intraepithelial Lesion or Malignancy ? Document reviewed and electronically signed by: ? Yarelis Sands, [facility](ASCP) ? Report Date: ??08/12/2004 15:18 End of Report Specimen (Source) Anatomical Location Collection Method / Collectio n Time Received Time / Laterality Volume 08/08/2004 08/09/2004 Yarelis العلي CNM PATHOLOGY ORDERABLES Performing Organization Address City/State/ZIP Code Phon e Number [facility] [address] [place] [address] SERVICES [facility] [address] [place] [address] documented in this encounter Visit Diagnoses Not on filedocumented in this encounter Care Teams Vp Of Customer Experience Strategy Relationship Specialty Start Date End Date Linda Lee NP PCP - General 01/27/09 03/17/[address] [place] [id number] documented as of this encounter
--- OUTSIDE RECORDS SUMMARY | 2022-02-08 09:12 | XMS_ITS | Encounter Summary ---
:1970 Author Organization [facility] Address [address] [place] [address] Care Team Providers Name Role Phone Lexie Hilario MD Primary Care Provider Encounter Details Date Type Department Care Team Description 03/28/2019 Lab Requisition [facility] Unknown, Provider, Pathology & Laboratory [facility] [address] [place] [address] [place], [place] [address] Social History Tobacco Use Types Packs/Day Years [...] Results CHLORIDE, URINE RANDOM (03/28/2019 18:12 EST) athologist Signature Chloride, 150 See Note 03/30/2019 [facility] Urine mEq/L 16:10 EST [facility]ENTER [facility] Comment: NOTE: Reference range has not been established for chloride concentration in random urine specimens. Specimen Anatomical Collection Method Collection Time Receive d Time (Source) Location / / Volume Laterality Urine URINE SPECIMEN 03/28/2019 18:12 9 COLLECTION, CLEAN EST 15:51 EST CATCH / Unknown Provider Unknown URINALYSIS ORDERABLES Performing Organization Address City/State/ZIP Code Phon e Number [facility] [address] [place] [address] SERVICES documented in this encounter Visit Diagnoses Not on filedocumented in this encounter Additional Health Concerns Infection Onset Date Last Indicated Resolved Time COVID-19 10/26/2021 10/26/2021 11/15/2021 22:15 EDT documented as of this encounter Care Teams Paper Rewinder Operator Relationship Specialty Start Date End Date Lexie Hilario MD PCP - General 06/21/15 documented as of this encounter
--- OUTSIDE RECORDS SUMMARY | 2022-02-08 09:12 | XMS_ITS | Encounter Summary ---
:1970 Author Organization [facility] Address [address] [place] [address] Care Team Providers Name Role Phone Lexie Hilario MD Primary Care Provider Encounter Details Date Type Department Care Team Description 03/04/2019 Lab Requisition [facility] Unknown, Provider, Pathology & Laboratory [facility] [address] [facility] [place], [place] [id number] Social History Tobacco Use Types Packs/Day Years [...] BACTERIAL PATHOGENS BY PCR (03/04/2019 14:45 EST) [facility] Method Time Signature Salmonella PCR Negative Negative 03/05/2019 [facility] 11:17 [facility] SERVICES Shigella/Enteroin Negative Negative 03/05/2019 [facility] vasive E. coli 11:17 [facility] SERVICES HN LAB Negative Negative 03/05/2019 [facility] CAMPYLOBACTER PCR 11:17 [facility] SERVICES Shiga Toxin PCR Negative Negative 03/05/2019 [facility] 11:17 [facility] SERVICES Specimen Anatomical Collection Method Collection Time Receive d Time (Source) Location / / Volume Laterality Feces (Feces) Stool Collect / 03/04/2019 14:45 019 Unknown EST 21:04 EST Provider Unknown MICROBIOLOGY - GENERAL ORDER DAVIAN Performing Organization Address City/State/ZIP Code Phon e Number [facility] [address] [place] [address] SERVICES documented in this encounter Visit Diagnoses Not on filedocumented in this encounter Additional Health Concerns Infection Onset Date Last Indicated Resolved Time COVID-19 10/26/2021 10/26/2021 11/15/2021 22:15 EDT documented as of this encounter Care Teams Excellence Coach Relationship Specialty Start Date End Date Lexie Hilario MD PCP - General 06/21/15 documented as of this encounter
--- OUTSIDE RECORDS SUMMARY | 2022-02-08 09:12 | XMS_ITS | Encounter Summary ---
:1970 Author Organization [facility] Address [address] [place] [address] Care Team Providers Name Role Phone Lexie Hilario MD Primary Care Provider Encounter Details Date Type Department Care Team Description 03/28/2019 Lab Requisition [facility] Unknown, Provider, Pathology & Laboratory [facility] [address] [facility] [place], [place] [address] Social History Tobacco Use Types Packs/Day Years [...] Results CALCIUM, URINE RANDOM (03/28/2019 18:10 EST) athologist Signature Calcium, Urine 11.6 See Note 03/31/2019 [facility] mg/dL 9:28 EST [facility] Comment: NOTE: Reference range has not been established for calcium concentration in random urine specimens. Specimen Anatomical Collection Method Collection Time Receive d Time (Source) Location / / Volume Laterality Urine URINE SPECIMEN 03/28/2019 18:10 9 COLLECTION, CLEAN EST 15:51 EST CATCH / Unknown Provider Unknown URINALYSIS ORDERABLES Performing Organization Address City/State/ZIP Code Phon e Number [facility] [address] [place] [address] SERVICES documented in this encounter Visit Diagnoses Not on filedocumented in this encounter Additional Health Concerns Infection Onset Date Last Indicated Resolved Time COVID-19 10/26/2021 10/26/2021 11/15/2021 22:15 EDT documented as of this encounter Care Teams Director School Of Nursing Relationship Specialty Start Date End Date Lexie Hilario MD PCP - General 06/21/15 documented as of this encounter
--- OUTSIDE RECORDS SUMMARY | 2022-02-08 09:12 | XMS_ITS | Encounter Summary ---
:1970 Author Organization [facility] Address [address] [place] [address] Care Team Providers Name Role Phone Linda Lee VEGETABLE LOADER Primary Care Provider Encounter Details Date Type Department Care Team Description 03/16/2014 Hospital Encounter [facility]- Cleo Unknown, Provider, [facility] 0 [facility] [phone] [place] [address] (Work) [phone] Social History Tobacco Use Types Packs/Day Years Used Date Smoking Tobacco: Never Assessed Sex Assigned at Date Recorded Not on file documented as of this encounter Discharge Disposition Disposition Code Departure Means Destination Home or Self Residential documented in this encounter Plan of Treatment Not on filedocumented as of this encounter Visit Diagnoses Not on filedocumented in this encounter Care Teams Wash Driller Helper Relationship Specialty Start Date End Date Linda Lee, VEGETABLE LOADER PCP - General 01/27/09 03/17/[address] [place] [id number] documented as of this encounter
--- OUTSIDE RECORDS SUMMARY | 2022-02-08 09:12 | XMS_ITS | Encounter Summary ---
:1970 Author Organization [facility] Address [address] [place] [address] Care Team Providers Name Role Phone Lexie Hilario MD Primary Care Provider Encounter Details Date Type Department Care Team Description 10/24/2019 Lab Requisition [facility] Center Outr Resulting Lab, Pathology & Laboratory Provider [facility] [address] [place] [address] Social History Tobacco Use Types Packs/Day Years [...] QUANTIFERON TB GOLD PLUS (10/23/2019 15:51 EDT) [facility] Method Time Signature Quantiferon Negative Negative 10/27/2019 [facility] Interpretation 14:43 EDT CENTER LAB[facility] Comment: No interferon-gamma response to M. tuber culosis antigens was detected. ??Infection with M. tuberculosis is unlikely. A single negative result does not exclude infection with M. tuberculosis. ??In patien ts at high risk for M. tuberculosis infe ction, a second test should be considered in accordance with the 2017 ATS/IDSA/CDC Clinical Practice Guidelines for Diagnosis of Tuberculosis in Adults and Childr en. [Evette LOZOYA et. al. Clin. Infect. Dis. 2017:64 (2) ??: 111-115]. Results were obtained with the [employer] antiFERON TB Gold Plus MANASA. TB1 Ag minus Nil 0.08 IU/ml 10/27/2019 14:43 EDT [facility] TB2 Ag minus Nil 0.10 IU/mL 10/27/2019 14:43 EDT [facility] Specimen Anatomical Collection Method Collection Time Receive d Time (Source) Location / / Volume Laterality Blood VENOUS BLOOD / 10/23/2019 15:51 0 Unknown EDT 15:49 EDT Narrative [facility] - 10/27/2019 14:43 EDT Results were obtained with the [employer] antiFERON-TB Gold Plus MANASA. Provider Outr Resulting Lab CHEMISTRY & BLOOD GAS JORJE BALDWIN [facility] Organization Address City/State/ZIP Code Phon e Number [facility] [address] [place] [address] SERVICES documented in this encounter Visit Diagnoses Not on filedocumented in this encounter Additional Health Concerns Infection Onset Date Last Indicated Resolved Time COVID-19 10/26/2021 10/26/2021 11/15/2021 22:15 EDT documented as of this encounter Care Teams Build And Deployment Engineer Relationship Specialty Start Date End Date Lexie Hilario MD PCP - General 06/21/15 documented as of this encounter
--- OUTSIDE RECORDS SUMMARY | 2022-02-08 09:12 | XMS_ITS | Encounter Summary ---
:1970 Author Organization [facility] Address [address] [place] [address] Care Team Providers Name Role Phone Lexie Hilario MD Primary Care Provider Encounter Details Date Type Department Care Team Description 07/15/[address] [facility] Outr Resulting Lab, Pathology & Laboratory Provider [facility] [address] [place] [address] Social History Tobacco Use Types Packs/Day Years [...] encounter Results BETA HYDROXYBUTYRATE (07/14/2021 12:50 EDT) [facility] Method Time Signature Beta <0.1 <0.4 07/15/2021 [facility] Hydroxybutyrate mmol/L 17:02 EDT CENTER LABORATORY SERVICES Specimen Anatomical Collection Method Collection Time Receive d Time (Source) Location / / Volume Laterality Blood VENOUS BLOOD / 07/14/2021 12:50 Unknown EDT 16:29 EDT Provider Outr Resulting Lab CHEMISTRY & BLOOD GAS JORJE Hilario Organization Address City/State/ZIP Code Phon e Number [facility] [address] [place] [address] SERVICES documented in this encounter Visit Diagnoses Not on filedocumented in this encounter Additional Health Concerns Infection Onset Date Last Indicated Resolved Time COVID-19 10/26/2021 10/26/202111/1511/15/2021 22:15 EDT documented as of this encounter Care Teams Senior Climate Advisor Relationship Specialty Start Date End Date Lexie Hilario MD PCP - General 06/21/15 documented as of this encounter
--- OUTSIDE RECORDS SUMMARY | 2022-02-08 09:12 | XMS_ITS | Encounter Summary ---
:1970 Author Organization [facility] Address [address] [place] [address] Care Team Providers Name Role Phone Lexie Hilario MD Primary Care Provider Encounter Details Date Type Department Care Team Description 07/25/2016 Hospital Encounter [facility]- [place]o Unknown, Provider, [facility] [address] [facility] [phone] [place] [address] (Work) [phone] Social History Tobacco Use Types Packs/Day Years Used Date Smoking Tobacco: Never Assessed Sex Assigned at Date Recorded Not on file documented as of this encounter Discharge Disposition Disposition Code Departure Means Destination Home or Self Half-Way documented in this encounter Plan of Treatment Not on filedocumented as of this encounter Visit Diagnoses Not on filedocumented in this encounter Care Teams Deck Officer Relationship Specialty Start Date End Date Lexie Hilario MD PCP - General 06/21/15 documented as of this encounter
--- OUTSIDE RECORDS SUMMARY | 2022-02-08 09:12 | XMS_ITS | Encounter Summary ---
:1970 Author Organization [facility] Address [address] [place] [address] Care Team Providers Name Role Phone Linda Lee WATCH COMMANDER Primary Care Provider Encounter Details Date Type Department Care Team Description 04/23/2006 Results Only [facility] - Clay Chaidez MD conversion [address] [place] [address] Social History Tobacco Use Types Packs/Day Years [...] this encounter Results CYTOPATHOLOGY (04/23/2006 0:00 EST) Component Value Ref Test Analysis Performed At [facility] Method Time Signature Pathology CYTOPATHOLOGY REPORT [facility] Report: [facility] Reports generated via electronic interface contain original data; however they are lacking the format of the original report. Caution should be taken when reading/interpreting unformatte d reports. Name: ? MONISHA PEÑA ? Accession #: ? [id number] : ? 1970 (Age: 35) ??F ?Collect Date: ? 04/23/2006 Location: ? [facility] ? Receive Date: ? 04/24/2006 Provider: ?CLAY GENAO MD Copy to: ? Specimen/Source: ? ThinPrep Pap Test, Cervix/Endocervix, processed on [employer] ThinPrep Imaging System, with manual evaluation Last Menstrual Period: ? 04/06/06 Menstrual/ Status: ? Menorrhagia Other: ? HPVA - HPV testing requested if ASC-US on the current ThinPr ep Pap test. ? SPECIMEN ADEQUACY ? Satisfactory for Evaluation - transformation zone component present GENERAL CATEGORIZATION ? Negative for Intraepithelial Lesion or Malignancy ? Document reviewed and electronically signed by: ? Yarelis Sands, [facility](ASCP) ? Report Date: ??04/25/2006 11:04 End of Report Specimen (Source) Anatomical Location Collection Method / Collectio n Time Received Time / Laterality Volume 04/23/2006 04/24/2006 Clay Genao MD PATHOLOGY ORDERABLES Performing Organization Address City/State/ZIP Code Phon e Number [facility] [address] [place] [address] SERVICES [facility] [address] [place] [address] documented in this encounter Visit Diagnoses Not on filedocumented in this encounter Care Teams Skid Wrapper Relationship Specialty Start Date End Date Linda Lee NP PCP - General 01/27/09 03/17/[address] [place] [address] documented as of this encounter
--- OUTSIDE RECORDS SUMMARY | 2022-02-08 09:12 | XMS_ITS | Clinical Summary ---
:1970 Author Organization [facility] Address [address] [place] [address] Care Team Providers Name Role Phone Lexie Hilario MD Primary Care Provider Encounters Date Type Specialty Care Team Description 02/03/2022 Lab Requisition Clinical Laboratory Outr Resulting Lab , Provider 02/01/2022 Lab Requisition Clinical Laboratory Outr Resulting Lab , Provider 12/12/2021 Lab Requisition Clinical Laboratory Outr Resulting Lab , Provider from Last 3 Months Social History Tobacco Use Types Packs/Day Years Used Date Smoking Tobacco: Never Assessed Sex Assigned at Date Recorded Not on file Plan of Treatment Health Maintenance Due Date Last Done Comments Hepatitis C Screen 1970 COVID-19 Vaccine (#1) 06/21/1970 Procedures Procedure Name Priority Date/Time Associated Comments Diagnosis INFLUENZA A AND B,RSV Routine 02/01/2022 9:15 Res ults for this PCR EDT procedure are i n the results section. COVID-19 TEST [facility] Today 01/31/2022 10:00 PCR EDT COVID-19 TESTING Routine 01/31/2022 10:00 Results for this EDT procedure are i n the results section. BETA HYDROXYBUTYRATE Routine 12/12/2021 11:40 Res ults for this EDT procedure are i n the results section. INSULIN Routine 12/12/2021 11:40 Results for this EDT procedure are i n the results section. from Last 3 Months Results INFLUENZA A AND B,RSV PCR (02/01/2022 9:15 EDT) [facility] Signature FLU A RNA Negative Negative 02/04/2022 [facility] Result 7:30 EDT CENTER ([facility]) LABORATORY SERVICES FLU B RNA Negative Negative 02/04/2022 [facility] Result 7:30 EDT CENTER ([facility]) LABORATORY SERVICES RSV RNA Result Negative Negative 02/04/2022 [facility] ([facility]) 7:30 EDT CENTER LABORATORY SERVICES Specimen Anatomical Location Collection Method Collection Time Received Time (Source) / Laterality / Volume Swab ENTIRE NASOPHARYNX 02/01/2022 9:15 2021 / Unknown EDT 18:14 EDT Provider Outr Resulting Lab MICROBIOLOGY - GENERAL ORD ERABLES Performing Organization Address City/State/ZIP Code Phon e Number [facility] [address] [place] [address] SERVICES COVID-19 TEST [facility] PCR (01/31/2022 10:00 EDT) Specimen Anatomical Collection Method Collection Time Receive d Time (Source) Location / / Volume Laterality Swab 01/31/2022 10:00 02/01/2022 EDT 16:25 EDT Provider Outr Resulting Lab MICROBIOLOGY - GENERAL ORD ERABLES Performing Organization Address City/[facility]/ZIP Code Phon e Number [facility] [address] [place] [address] SERVICES COVID-19 TESTING (01/31/2022 10:00 EDT) Analysis Performed At Patho logist Time Signature COVID-19 Negative Negative 02/01/2022 [facility] rt-PCR Result 19:33 EDT CENTER LABORATORY [...] and epidemiologi divina information. Performed on the Hologic [place] Fusion instrument Performing Lab [facility] 02/01/2022 19:33 EDT [facility] SERVICES Specimen Anatomical Collection Method Collection Time Receive d Time (Source) Location / / Volume Laterality Swab 01/31/2022 10:00 02/01/2022 EDT 16:25 EDT Provider Outr Resulting Lab MICROBIOLOGY - GENERAL ORD ERABLES Performing Organization Address City/State/ZIP Code Phon e Number [facility] [address] [place] [address] SERVICES BETA HYDROXYBUTYRATE (12/12/2021 11:40 EDT) Patholo gist Method Time Signature Beta <0.1 <0.4 12/12/2021 [facility] Hydroxybutyrate mmol/L 21:45 EDT CENTER LABORATORY SERVICES Specimen Anatomical Collection Method Collection Time Receive d Time (Source) Location / / Volume Laterality Blood VENOUS BLOOD / 12/12/2021 11:40 2 Unknown EDT 21:17 EDT Provider Outr Resulting Lab CHEMISTRY & BLOOD GAS ORDE RABJAMIE Performing Organization Address City/[facility]/ZIP Code Phon e Number [facility] [address] [place] [address] SERVICES INSULIN (12/12/2021 11:40 EDT) P athologist Signature Insulin 5.4 <29.0 12/15/2021 [facility] uIU/mL 9:40 EDT CENTER LABORATORY SERVICES Comment: Displayed Reference Range applies to fas ting specimens only. Specimen Anatomical Collection Method Collection Time Receive d Time (Source) Location / / Volume Laterality Blood VENOUS BLOOD / 12/12/2021 11:40 2 Unknown EDT 21:17 EDT Provider Outr Resulting Lab CHEMISTRY & BLOOD GAS ORDE RABLES Performing Organization Address City/State/ZIP Code Phon e Number [facility] [address] [place] [address] SERVICES from Last 3 Months Care Teams Blanket Maker Relationship Specialty Start Date End Date Lexie Hilario MD PCP - General 06/21/15
== END ==
PROVIDERS: PCP Student in an Organized Health Care Education/Training Program; Visit Provider Student in an Organized Health Care Education/Training Program
DX: R50.9 Fever, unspecified (principal); M79.671 Pain in right foot
CPT/HCPCS: 73630

== ENCOUNTER 2022-02-08 11:53 | Observation (INO) | payer OTHER, SELFPAY ==
[2022-02-08 11:57] VITALS: BP 139/86; PULSE 95; RESP 18; TEMP 36.8; O2SAT 99
--- NOTE | 2022-02-08 12:13 | NUR.NOTE ---
Nursing Note: patient states she feels clammy, and slow like brain fog upon admittance to the ED
[2022-02-08 15:02] LABS: Abs Immature Grans 0.02 10^3/uL (0.0-0.06); Absolute Basophil Count 0.06 10^3/uL (0.0-0.2); Absolute Lymphocyte Count 3.87 10^3/uL (1.2-3.4); Absolute Monocyte Count 0.61 10^3/uL (0.1-0.8); Absolute Neutrophil Count 6.83 10^3/uL (1.2-6.7); Basophils % 0.5; Eosinophils % 2.6; HCT 41.5 % (36.0-46.0); HGB 13.9 g/dL (11.2-15.7); Immature Grans % 0.2; Lymphocytes % 33.1; MCH 28.8 pg (27.0-33.0); MCHC 33.5 % (32.0-36.0); MCV 86 fL (80-95); MPV 9.3 fL (8.0-11.0); Monocytes % 5.2; Neutrophils % 58.4; Platelet Count 435 10^3/uL (130-400); RBC 4.82 10^6/uL (3.93-5.22); RDW 13.1 % (11.7-14.6); RDW-SD 40.9 fL
[2022-02-08 15:24] LABS: ALT 24 U/L (14-59); AST 22 U/L (15-37); Albumin 3.6 g/dL (3.4-5.0); Alkaline Phosphatase 71 U/L (46-116); Anion Gap 6.8 mmol/L (3-11); BUN 18 mg/dL (7-18); Bilirubin, Total 0.3 mg/dL (0.2-1.0); CO2 32.2 mmol/L (21.0-32.0); CREATININE 0.9 mg/dL (0.55-1.02); Chloride 100 mmol/L (98-107); Estimated GFR 76.92 (mL/min/1.73m2); Glucose 113 mg/dL (74-106); Magnesium 2.1 mg/dL (1.8-2.4); Potassium 3.2 mmol/L (3.5-5.1); Sodium 139 mmol/L (136-145); TSH (W/Ref FT4) 1.66 uIU/mL (0.36-3.74); Total Protein 7.4 g/dL (6.4-8.2)
--- NOTE | 2022-02-08 16:05 | HPE_ITS ---
Date of service: 02/08/22 Time of Service: 16:05 Assessment and Plan Assessment and plan (1) Hypoglycemia: Status: Resolved Assessment and plan: chronic and wears continuous glucose monitor. medical screening the ED unremarkable. will encourage frequent meals and adequate po intake (2) Hypokalemia: Assessment and plan: chronic, replete and follow (3) Essential hypertension: Assessment and plan: continue home medication monitor and adjust as needed (4) Discharge planning issues: Status: Deleted Assessment and plan: home with no services once medically stable. discussed with DR Holguin History of Present Illness History of Present Illness Chief Complaint: hypoglycemia Narrative: presents to ED with low glucose readings. denies any changes in health or diet. work up in the ED unremarkable. has not been fed, attempt to raise blood sugar with gingerale which responded as expected. hospitalist called Review of Systems All systems reviewed & are unremarkable except as noted in HPI and below Constitutional Constitutional: Reports as per HPI (no c/o or recent illness. ) and Reports system reviewed and no additional complaints, except as documented PFSH All Active Problems (Updated 02/10/22 @ 00:05 by CHARI CHOI) Heel lesion (Acute) Right heel, cracked skin .. inner foot tenderness .. out of proportion tenderness .. possible assoc with fever? (improved with soaking, but not closing) Fever (Acute) Over 1 week; T 103/102/99; Neg COVID; Awaiting Flu Status post bariatric surgery (Acute) Successful weight loss, but dangerous, symptomatic HYPOglycemia [neg dumping syndrome per [facility]] SARS-CoV-2 positive (Acute ~10/26/21) Pelvic pain (Acute) Dysmenorrhea (Acute) [place] exposure (Acute) Dtr (+) .. Sore Throat, lab [ ] Skin lesion (Acute) Mild wound, 2' probable abd intertrigo. Dumping syndrome (Acute 04/12/21) NOT per Bariatric Team.. Dx per [facility] Endo .. [facility] Bariatric Team re-eval as NEG for dumping syndrome, 05/2021 Scab of knee (Acute) fell last week, rough/dry scab, but irritated .. Trial debride @ home, consider surgtery if tender. Facial twitching (Acute) Nodule of left lung (Acute) 3mm, incidental finding, LLL (12/2020 CT). [ ] 6 mo FU.. Paresthesias (Acute) Hypotension (Acute) post gastric bypass ... lowering ACEi, BB, CCB. DIuretics in place 2' LE edema (albeit improved). Depressive disorder (Chronic 05/23/11) Wellbutrin 2012, discon 12/2012, restart 05/2013 Hx of Marylou thyroiditis (Acute) Complicated grieving (Acute) Her basically healthy mo due to COVID19 infection. She was intubated within days of becoming sick, sending out a cheerful text 4 days beforehand! Monisha has cancelled the trip just before flights, etc were shut down; she was originally worried for her fa 2' health issues and dementia. Close-knit family; inability for gathering for .. video/webexed with family in [place] (mo in [place]). Imbalance (Acute) Cervical radiculopathy (Acute) Hematuria (Acute) Other seborrheic keratosis (Acute) Hypomagnesemia (Acute) Leg edema (Acute) Flash pulmonary edema (Acute) Lymphedema (Chronic) referring to PT for evaluation and recommendations.. Bunion (Acute) 12/24/18-nelson Yarbrough DPM Sustained VT (ventricular tachycardia) (Acute) during hypokalemia episode Abnormal serum creatinine level (Acute 07/2018) Serious Creatinine elevation, with resolution between episodes of dehydration .. Fatty liver (Acute) 10/02/18 Dr Schroeder/[facility] Angioedema (Acute) 10/02/18 Dr Schroeder/[facility] Flushing (Acute) 10/02/18 Dr Schroeder/[facility] Out of work (Acute 08/21/18) Recommend continuation of reduced hours due to continued electrolyte imbalances, fatigue and metabolic disorder. Unclear etiology makes it difficult to create a clear treatment plan, which in turn, makes routine and FT work difficult to manage. Revised [facility] Ppwk (06/2019). Solid, intermittent improvements, but unpredictable. 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 10/30/18, ik. I support time off from work due to continued electrolyte imbalances which cannot be explained. Re-referring to specialists @ [facility] as well as [facility]. Elevated plasma metanephrines (Acute 08/2018) Ordered by [facility] (Abd) [ ] ... follow up with Endo week of October 07. 08/2018, mian Kidney stone (Acute 02/27/12) Migraine headache with aura (Chronic) DR. VALDEZ 08/29/11 Topamax works Vertigo and/or pain Uterine leiomyoma (Chronic 11/02/15) On pelvic ultrasound uterus enlarged approximate 13 cm. 08/04/2021 pelvic pain radiating from back. Serrated adenoma of colon (Acute 07/07/15) Dr. Contreras, sessile colonic polyp, inflammatory polyp Sensorineural hearing loss, bilateral (Chronic 11/01/17) Restless leg (Acute 03/31/15) Some relief with iron infusion (albeit reaction to infusion), 05/2018. 06/16/19 f/u at sleep clinic Reflux esophagitis (Acute 07/07/15) Dr. Contreras gastritis Rectal bleeding (Acute 03/02/15) Episodic - Was diagnosed with AVM's Premenstrual dysphoric disorder (Acute 11/10/14) Gabriel Henderson MD [facility] Positive TG (antinuclear antibody) (Acute 06/07/15) Mgrn w aura w intrc mgrn (Acute 09/05/11) DR. VALDEZ 08/29/11 Topamax works Vertigo and/or pain Mgrn wo aura wo ntrc mgr (Acute 09/05/11) DR. VALDEZ 08/29/11 Topamax works Vertigo and/or pain Incomplete tear of left rotator cuff (Acute 05/31/16) Diarrhea (Acute 10/29/15) Chronic, secretory .. s/p multiple [place], Bx. Trial cholestyramine, 10/2018, ik planned. Alopecia areata (Acute 05/23/11) Dx'ed 1990s Hair prosthesis Medical History (Updated 02/10/22 @ 00:05 by CHARI CHOI) Alopecia Anemia Class 3 severe obesity due to excess calories with body mass index (BMI) of 40.0 to 44.9 in adult 07/31/19 [facility] Dehydration (~08/21/18) Several episodes now .. She can almost gauge her K levels based on mm weakness. [ ] BMP [ ] IVF-KCl Bolus-K have helped with hypokalemia in between bouts of diarrhea/dehydration when IVF not needed. 09/2018, ik Depression Diabetes mellitus type 2 in obese Improved s/p bariatric surgery and wt loss BUT HYPOglycemia Essential hypertension (12/05/12) Elevated BPs, especially DBP. Hx high BP since of twins (20yrs), noted in Nephro note (2017). HCTZ used x years for HTN & Edema. Spirono not tolerated (Hives/Flush). Trial Eplerenone, 10/09/18, ik Unable to tolerate eplerenone, angioedema-like reactions to K-sparing diuretics.. 09/2018, ik GERD (gastroesophageal reflux disease) Marylou's thyroiditis Hx of adenomatous colonic polyps Hypokalemia (11/07/16) Chronic, possible 2' IBS/Diarrhea. Continued despite GI improvements, albeit improved. Trial Eplerenone, to be followed by HCTZ decrease. 10/09/18 Intermi ttent improvement, but unsteady and unpredictable .. Monisha seems unable to maintain her own K levels WNL w/o bolus/infusions at this time. Unable to tolerate K-sparing diuretics. Cont to research, evaluate, consult .. 09/2018, ik Impaired fasting glucose (02/11/14) A1C 6.1% 12/2012 .. A1C 5.8 07/04/18. Irritable bowel syndrome diarrhea predominant Preeclampsia Rectal hemorrhage (03/02/15) Reflux esophagitis Surgical History (Updated 01/18/22 @ 12:40 by Huyen Ramon DO) section x3 Colonoscopy - MAC (03/16/14) w/ bx 2015-serrated adenomatous polyp EGD - MAC 2015 Endometrial Ablation 2007 2012 H/O colonoscopy (12/05/17) History of esophagogastroduodenoscopy (EGD) (12/05/17) History of Nadia-en-Y gastric bypass (~11/2019) Tonsillectomy Family History Mother Pulmonary hypertension Heart disease valve replacement Father Prostate cancer Essential hypertension Parkinsons Sister Uterine cancer Brother No problems noted. Other Colon cancer Social History (Updated 08/10/21 @ 14:04 by Ankita Case MD) Smoking/Tobacco Use Status: Never Smoking risk assessment performed?: Yes Alcohol Intake: current Alcohol Intake frequency: holidays/special occasions only Alcohol type: wine Drug use: Never Substance use type: does not use Adopted: No Caregiver/Support person: No Household members: spouse and other Details: Partner - Jayne, children Housing: house Number of Children: 4 number of grandchildren: 0 Communication Needs: Corrective Lenses Education Level: college current occupation: Daily today tested negative on this on the testing day negative negative di Pets and animals: Yes Pets and animals: cat(s) and dog(s) Sexually active: Yes Do you think of yourself as: lesbian/peña/homosexual Current gender identity: female What is your relationship status?: living with partner Panel score (0-1 are the most socially isolated patients): 1 What type of physical activity do you participate in: walking Duration: 15-30 minutes/day Frequency: 3-4 times per week Seatbelt use: always Working smoke detector in home: Yes Fire extinguisher in home: Yes Carbon monox detector in home: Yes Firearms in home: No Do you feel safe at home: Yes Do you feel safe in your relationship?: Yes Female Reproductive History Menstrual control method: permanent sterilization History History 3 Para 4 Hx # Term Pregnancies Multiple births 1 Hx # Pregnancies Ectopic pregnancies AB induced Hx Number of Living Children AB spontaneous Meds Allergies and Home Medications Allergies Allergy/AdvReac Type Severity Reaction Status Date / Time atropine Allergy Intermediate HIVES, Verified 02/07/22 15:57 SWOLLEN spironolactone Allergy Intermediate Skin Rash Verified 02/07/22 15:57 eplerenone AdvReac Intermediate swelling; Verified 02/07/22 15:57 SOB iron [From Venofer] AdvReac Intermediate Swelling/Ed Verified 02/07/22 15:57 brandon Home Medications Medication Instructions Recorded Confirmed Type Hair Prosthesis #1 ea 05/19/15 05/14/19 Clinic bariatric fusion chewable complete 2 100 ml PO DAILY 12/28/20 02/08/22 History Scalp Hair Prosthesis #1 ea 02/03/21 10/06/21 Rx blood sugar diagnostic (Blood #100 ea 04/10/21 02/08/22 Rx Glucose Test strips) glucometer #1 ea 04/21/21 10/06/21 Rx blood sugar diagnostic (Blood #100 ea 04/26/21 02/08/22 Rx Glucose Test strips) lancets (Comfort Lancets) #100 ea 04/26/21 02/08/22 Rx pramipexole 0.25 mg tablet 0.25 mg PO BID #180 tabs 04/27/21 02/08/22 Rx gabapentin 800 mg tablet 800 mg PO BID #180 tabs 06/06/21 02/08/22 Rx blood-glucose sensor (Dexcom G6 #3 ea 06/17/21 02/08/22 Rx Sensor device) blood-glucose transmitter (Dexcom #1 ea 06/17/21 02/08/22 Rx G6 Transmitter device) hydrochlorothiazide 25 mg tablet 25 mg PO BID PRN edema #180 tabs 07/21/21 02/08/22 Rx glucagon 3 mg/actuation nasal spray 3 mg intranasal ONCE severe 07/22/21 02/08/22 Rx hypoglycemia #1 ea non-adherent bandage 3 X 4 #10 ea 07/23/21 10/06/21 Rx (Non-Stick Pad) amiloride 5 mg tablet 5 mg PO BID #180 tabs 08/25/21 02/08/22 Rx bupropion HCl 300 mg 24 hr tablet, 300 mg PO DAILY #90 tabs 08/25/21 02/08/22 Rx extended release (Wellbutrin XL) omeprazole 40 mg capsule,delayed 40 mg PO DAILY #90 tabs 08/25/21 02/08/22 Rx release blood-glucose meter,continuous #1 ea 09/10/21 02/08/22 Rx (Dexcom G6 [employer] misc) venlafaxine 75 mg tablet 75 mg PO BID #180 tabs 11/30/21 02/08/22 Rx potassium chloride 20 mEq 20 meq PO PRN PRN hypokalemia 02/08/22 02/08/22 History tablet,extended release triamcinolone acetonide 0.5 % 1 applic topical PRN PRN 02/08/22 02/08/22 History topical ointment Exam Const General: cooperative, healthy appearing, comfortable and no acute distress Nutritional Appearance: obese Orientation: alert, awake and oriented x3 HENMT Head: normal to inspection, normocephalic and atraumatic Mouth: moist mucous membranes Resp Effort & Inspection: normal respiratory effort Auscultation: clear to auscultation bilaterally Cardio Rate: regular rate Rhythm: regular rhythm Heart Sounds: S1 normal and S2 normal GI Inspection: normal to inspection and obesity Palpation: soft Auscultation: normal bowel sounds Skin General skin exam: no rashes or lesions noted Neuro General: patient alert, patient awake and patient oriented x3 Extrem General: edema Laterality: bilateral Results Labs Result diagrams: 02/08/22 14:45 02/08/22 14:45 Labs: Laboratory Results - last 24 hr 02/08/22 02/08/22 14:45 14:45 WBC 11.70 H RBC 4.82 Hgb 13.9 Hct 41.5 MCV 86 MCH 28.8 MCHC 33.5 RDW 13.1 Plt Count 435 H MPV 9.3 Immature Gran % 0.2 Neutrophils % 58.4 Lymphocytes % 33.1 Monocytes % 5.2 Eosinophils % 2.6 Basophils % 0.5 Nucleated RBC % 0.0 Absolute Neutrophils 6.83 H Absolute Lymphocytes 3.87 H Absolute Monocytes 0.61 Absolute Eosinophils 0.30 Absolute Basophils 0.06 Sodium 139 Potassium 3.2 L Chloride 100 Carbon Dioxide 32.2 H Anion Gap 6.8 BUN 18 Creatinine 0.9 Est GFR (CKD-EPI 2020) 76.92 Glucose 113 H Calcium 9.0 Magnesium 2.1 Total Bilirubin 0.3 AST 22 ALT 24 Alkaline Phosphatase 71 Total Protein 7.4 Albumin 3.6 TSH 1.66 Last Vital Signs Temp 36.8 C 02/08/22 11:57 Pulse 95 H 02/08/22 11:57 Resp 18 02/08/22 11:57 BP 139/86 02/08/22 11:57 Pulse Ox 99 02/08/22 11:57
[2022-02-08 16:12] VITALS: BP 132/98; PULSE 79; RESP 16; TEMP 36.8; O2SAT 99
--- NOTE | 2022-02-08 16:13 | ED.GENADUL_ITS ---
Discharge Plan Disposition Patient Disposition: Admit to [facility] Condition: Improving Discharge Details Chief Complaint: Diabetes Clinical Impression: Hypoglycemia Admit Date/Time: 02/08/22 15:47 Admit Provider: Trent Holguin Attending Provider: Trent Holguin Primary Care Provider: Huyen Ramon ED Provider: Caty Recinos Discharge Instructions Activity:: Activity as Tolerated Equipment/Supplies:: Test strips and Lancets Diet:: As Tolerated Discharge Data Discharge Date/Time-TO BE ENTERED AT DEPARTURE: 02/08/22 16:26 Medical Decision Making Concern for metabolic/lyte derangement, possible neoplastic disease, other. Exam/hx at this time is not c/w sepsis, ACS. Plan for IV placement, screening labs. Labs reviewed. Pt drank gningerale in the ED with improvement in BS to 150s. Pt continued to drink gingerale but had recurrent hypoglycemia at 60. Plan for admission for further eval for hypolgycemia. Lab Data Lab results reviewed: Yes I reviewed the patient's lab results. HPI General Mode of arrival: ambulatory . Date/Time Provider Initiated Documentation: 02/08/22 12:04 . Limitations to Documentation: no limitations . Information obtained by: patient, RN notes reviewed and old records reviewed . HPI Narrative: Monisha Das is a 51 y/o woman with history of SVT, hypertension, status post bariatric surgery, hyperglycemia presenting to the emergency department with recurrent hypoglycemia. Patient states that she underwent bariatric surgery in 2019. She reports that approximately 1 year later she developed hypoglycemia. Patient reports that she has a continuous glucose monitor in place for this issue, and she is followed by her PCP. Patient reports that she has a plan for when her blood sugar drops including eating 15 g of carbs. Patient reports that she will typically have 1-2 episodes per day with blood sugar below 70. She reports that she is symptomatic during these episodes and has tingling in both of her hands, clammy/sweaty feeling, and light headedness, difficulty speaking. Patient reports that her blood sugar dropped at midnight today and has essentially stayed low since that time. She reports that blood sugar has risen intermittently with eating but proximal rapidly afterwards which is not typical. Patient reports that persistent hypoglycemia throughout the night and day has not happened in the past for her. She reports that she has been symptomatic today during periods of low blood sugar. Patient reports that she recently had intermittent fever over the past few weeks, and few days had labs drawn by her PCP for this. No source has been found, although she has not had any fever for the past 2 days. She reports that tick studies were not done. She denies any pain, shortness of breath, cough, vomiting, diarrhea, numbness, focal weakness, rash. Related Data Home Medications Medication Instructions Recorded Confirmed bariatric fusion chewable complete 2 100 ml PO DAILY 12/28/20 02/17/22 Scalp Hair Prosthesis #1 ea 02/03/21 02/17/22 blood sugar diagnostic (Blood #100 ea 04/10/21 02/17/22 Glucose Test strips) glucometer #1 ea 04/21/21 02/17/22 blood sugar diagnostic (Blood #100 ea 04/26/21 02/17/22 Glucose Test strips) lancets (Comfort Lancets) #100 ea 04/26/21 02/17/22 pramipexole 0.25 mg tablet 0.25 mg PO BID #180 tabs 04/27/21 02/17/22 gabapentin 800 mg tablet 800 mg PO BID #180 tabs 06/06/21 02/17/22 blood-glucose sensor (Dexcom G6 #3 ea 06/17/21 02/17/22 Sensor device) blood-glucose transmitter (Dexcom #1 ea 06/17/21 02/17/22 G6 Transmitter device) hydrochlorothiazide 25 mg tablet 25 mg PO BID PRN edema #180 tabs 07/21/21 02/17/22 glucagon 3 mg/actuation nasal spray 3 mg intranasal ONCE severe 07/22/21 02/17/22 hypoglycemia #1 ea non-adherent bandage 3 X 4 #10 ea 07/23/21 02/17/22 (Non-Stick Pad) amiloride 5 mg tablet 5 mg PO BID #180 tabs 08/25/21 02/17/22 bupropion HCl 300 mg 24 hr tablet, 300 mg PO DAILY #90 tabs 08/25/21 02/17/22 extended release (Wellbutrin XL) omeprazole 40 mg capsule,delayed 40 mg PO DAILY #90 tabs 08/25/21 02/17/22 release blood-glucose meter,continuous #1 ea 09/10/21 02/17/22 (Dexcom G6 Manager Engine misc) venlafaxine 75 mg tablet 75 mg PO BID #180 tabs 11/30/21 02/17/22 potassium chloride 20 mEq 20 meq PO PRN PRN hypokalemia 02/08/22 02/17/22 tablet,extended release triamcinolone acetonide 0.5 % 1 applic topical PRN PRN 02/08/22 02/17/22 topical ointment Previous Rx's Medication Instructions Recorded Scalp Hair Prosthesis #1 ea 02/03/21 blood sugar diagnostic (Blood #100 ea 04/10/21 Glucose Test strips) glucometer #1 ea 04/21/21 blood sugar diagnostic (Blood #100 ea 04/26/21 Glucose Test strips) lancets (Comfort Lancets) #100 ea 04/26/21 pramipexole 0.25 mg tablet 0.25 mg PO BID #180 tabs 04/27/21 gabapentin 800 mg tablet 800 mg PO BID #180 tabs 06/06/21 blood-glucose sensor (Dexcom G6 #3 ea 06/17/21 Sensor device) blood-glucose transmitter (Dexcom #1 ea 06/17/21 G6 Transmitter device) hydrochlorothiazide 25 mg tablet 25 mg PO BID PRN edema #180 tabs 07/21/21 glucagon 3 mg/actuation nasal spray 3 mg intranasal ONCE severe 07/22/21 hypoglycemia #1 ea non-adherent bandage 3 X 4 #10 ea 07/23/21 (Non-Stick Pad) amiloride 5 mg tablet 5 mg PO BID #180 tabs 08/25/21 bupropion HCl 300 mg 24 hr tablet, 300 mg PO DAILY #90 tabs 08/25/21 extended release (Wellbutrin XL) omeprazole 40 mg capsule,delayed 40 mg PO DAILY #90 tabs 08/25/21 release blood-glucose meter,continuous #1 ea 09/10/21 (Dexcom G6 Manager Engine misc) venlafaxine 75 mg tablet 75 mg PO BID #180 tabs 11/30/21 Allergies Allergy/AdvReac Type Severity Reaction Status Date / Time atropine Allergy Intermediate HIVES, Verified 02/21/22 14:18 SWOLLEN spironolactone Allergy Intermediate Skin Rash Verified 02/21/22 14:18 eplerenone AdvReac Intermediate swelling; Verified 02/21/22 14:18 SOB iron [From Venofer] AdvReac Intermediate Swelling/Ed Verified 02/21/22 14:18 brandon General Stated Complaint: Diabetes JOBY: 3 Review of Systems Narrative: Constitutional: denies fevers Eyes: denies eye pain ENT: denies ear pain, dental pain, sore throat Cardiovascular: denies chest pain, edema Respiratory: denies SOB, cough GI: denies abdominal pain, vomiting, diarrhea : denies flank pain MSK: denies back pain, neck pain, arthralgias, myalgias Skin: denies rash Neuro: denies headaches, numbness, weakness PFSH All Active Problems (Updated 03/05/22 @ 10:11 by Caty Recinos MD) Postprandial hypoglycemia (Acute) per observation and tel d/w Dr. Ortega (future Endo, [facility]).. vs exercise- induced Hypoglycemia (Acute) Heel lesion (Acute) Right heel, cracked skin .. inner foot tenderness .. out of proportion tenderness .. possible assoc with fever? (improved with soaking, but not closing) Fever (Acute) Over 1 week; T 103/102/99; Neg COVID; Awaiting Flu Status post bariatric surgery (Acute) Successful weight loss, but dangerous, symptomatic HYPOglycemia [neg dumping syndrome per [facility]] SARS-CoV-2 positive (Acute ~10/26/21) Pelvic pain (Acute) Dysmenorrhea (Acute) [place] exposure (Acute) Dtr (+) .. Sore Throat, lab [ ] Skin lesion (Acute) Mild wound, 2' probable abd intertrigo. Dumping syndrome (Acute 04/12/21) NOT per Bariatric Team.. [place] [facility] [place] [facility] [place] re-eval as NEG for dumping syndrome, 05/2021 Scab of knee (Acute) fell last week, rough/dry scab, but irritated .. Trial debride @ home, consider surgtery if tender. Facial twitching (Acute) Nodule of left lung (Acute) 3mm, incidental finding, LLL (12/2020 CT). [ ] 6 mo FU.. Paresthesias (Acute) Hypotension (Acute) post gastric bypass ... lowering ACEi, BB, CCB. DIuretics in place 2' LE edema (albeit improved). Depressive disorder (Chronic 05/23/11) Wellbutrin 2012, discon 12/2012, restart 05/2013 Hx of Marylou thyroiditis (Acute) Complicated grieving (Acute) Her basically healthy mo due to COVID19 infection. She was intubated within days of becoming sick, sending out a cheerful text 4 days beforehand! Monisha has cancelled the trip just before flights, etc were shut down; she was originally worried for her fa 2' health issues and dementia. Close-knit family; inability for gathering for .. video/webexed with family in [place] (mo in [place]). Imbalance (Acute) Cervical radiculopathy (Acute) Hematuria (Acute) Other seborrheic keratosis (Acute) Hypomagnesemia (Acute) Leg edema (Acute) Flash pulmonary edema (Acute) Lymphedema (Chronic) referring to PT for evaluation and recommendations.. Bunion (Acute) 12/24/18-nelson Yarbrough DPM Sustained VT (ventricular tachycardia) (Acute) during hypokalemia episode Abnormal serum creatinine level (Acute 07/2018) Serious Creatinine elevation, with resolution between episodes of dehydration .. Fatty liver (Acute) 10/02/18 Dr Schroeder/[facility] [place]ioedema (Acute) 10/02/18 Dr Schroeder/[facility] [place] Flushing (Acute) 10/02/18 Dr Schroeder[place] [place] of work (Acute 08/21/18) Recommend continuation of reduced hours due to continued electrolyte imbalances, fatigue and metabolic disorder. Unclear etiology makes it difficult to create a clear treatment plan, which in turn, makes routine and FT work difficult to manage. Revised [facility] Ppwk (06/2019). Solid, intermittent improvements, but unpredictable. 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 10/30/18, mian. I support time off from work due to continued electrolyte imbalances which cannot be explained. Re-referring to [place] [facility] [place] as [facility]. Elevated plasma metanephrines (Acute 08/2018) Ordered by Endo, CT (Abd) [ ] ... follow up with Endo week of October 07. 08/2018, mian Kidney stone (Acute 02/27/12) Migraine headache with aura (Chronic) DR. VALDEZ 08/29/11 TopID8-Mobile works Vertigo and/or pain Uterine leiomyoma (Chronic 11/02/15) On pelvic ultrasound uterus enlarged approximate 13 cm. 08/04/2021 pelvic pain radiating from back. Serrated adenoma of colon (Acute 07/07/15) Dr. Contreras, sessile colonic polyp, inflammatory polyp Sensorineural hearing loss, bilateral (Chronic 11/01/17) Restless leg (Acute 03/31/15) Some relief with iron infusion (albeit reaction to infusion), 05/2018. 06/16/19 f/u at sleep clinic Reflux esophagitis (Acute 07/07/15) Dr. Contreras gastritis Rectal bleeding (Acute 03/02/15) Episodic - Was diagnosed with AVM's Premenstrual dysphoric disorder (Acute 11/10/14) Gabriel Henderson MD [facility] Positive TG (antinuclear antibody) (Acute 06/07/15) Mgrn w aura w intrc mgrn (Acute 09/05/11) DR. VALDEZ 08/29/11 Topamax works Vertigo and/or pain Mgrn wo aura wo ntrc mgr (Acute 09/05/11) DR. VALDEZ 08/29/11 Topamax works Vertigo and/or pain Incomplete tear of left rotator cuff (Acute 05/31/16) Diarrhea (Acute 10/29/15) Chronic, secretory .. s/p multiple [place], Bx. Trial cholestyramine, 10/2018, ik planned. Alopecia areata (Acute 05/23/11) Dx'ed 1990s Hair prosthesis Medical History Alopecia Anemia Class 3 severe obesity due to excess calories with body mass index (BMI) of 40.0 to 44.9 in adult 07/31/19 [facility] Dehydration (~08/21/18) Several episodes now .. She can almost gauge her K levels based on mm weakness. [ ] BMP [ ] IVF-KCl Bolus-K have helped with hypokalemia in between bouts of diarrhea/dehydration when IVF not needed. 09/2018, ik Depression Diabetes mellitus type 2 in obese Improved s/p bariatric surgery and wt loss BUT HYPOglycemia Essential hypertension (12/05/12) Elevated BPs, especially DBP. Hx high BP since of twins (20yrs), noted in Nephro note (2017). HCTZ used x years for HTN & Edema. Spirono not tolerated (Hives/Flush). Trial Eplerenone, 10/09/18, mian Unable to tolerate eplerenone, angioedema-like reactions to K-sparing diuretics.. 09/2018, mian GERD (gastroesophageal reflux disease) Marylou's thyroiditis Hx of adenomatous colonic polyps Hypokalemia (11/07/16) Chronic, possible 2' IBS/Diarrhea. Continued despite GI improvements, albeit improved. Trial Eplerenone, to be followed by HCTZ decrease. 10/09/18 Intermittent improvement, but unsteady and unpredictable .. Monisha seems unable to maintain her own K levels WNL w/o bolus/infusions at this time. Unable to tolerate K-sparing diuretics. Cont to research, evaluate, consult .. 09/2018, mian Impaired fasting glucose (02/11/14) A1C 6.1% 12/2012 .. A1C 5.8 07/04/18. Irritable bowel syndrome diarrhea predominant Preeclampsia Rectal hemorrhage (03/02/15) Reflux esophagitis Surgical History section x3 Colonoscopy - MAC (03/16/14) w/ bx 2015-serrated adenomatous polyp EGD - MAC 2015 Endometrial Ablation 2007 2012 H/O colonoscopy (12/05/17) History of esophagogastroduodenoscopy (EGD) (12/05/17) History of Nadia-en-Y gastric bypass (~11/2019) Tonsillectomy Family History Mother Pulmonary hypertension Heart disease valve replacement Father Prostate cancer Essential hypertension Parkinsons Sister Uterine cancer Brother No problems noted. Other Colon cancer Social History Smoking/Tobacco Use Status: Never Smoking risk assessment performed?: Yes Alcohol Intake: current Alcohol Intake frequency: holidays/special occasions only Alcohol type: wine Drug use: Never Substance use type: does not use Adopted: No Caregiver/Support person: No Household members: spouse and other Details: Partner - Jayne, children Housing: house Number of Children: 4 number of grandchildren: 0 Communication Needs: Corrective Lenses Education Level: college current occupation: Daily today tested negative on this on the testing day negative negative di Pets and animals: Yes Pets and animals: cat(s) and dog(s) Sexually active: Yes Do you think of yourself as: lesbian/peña/homosexual Current gender identity: female What is your relationship status?: living with partner Panel score (0-1 are the most socially isolated patients): 1 What type of physical activity do you participate in: walking Duration: 15-30 minutes/day Frequency: 3-4 times per week Seatbelt use: always Working smoke detector in home: Yes Fire extinguisher in home: Yes Carbon monox detector in home: Yes Firearms in home: No Do you feel safe at home: Yes Do you feel safe in your relationship?: Yes Female Reproductive History Menstrual control method: permanent sterilization History History 3 Para 4 Hx # Term Pregnancies Multiple births 1 Hx # Pregnancies Ectopic pregnancies AB induced Hx Number of Living Children AB spontaneous Exam Narrative Exam Narrative: Constitutional: well and [id number], pleasant, conversing normally HENT: head atraumatic/normocephalic/normal inspection, mucous membranes moist Eyes: conjunctiva normal, sclera normal, pupils 3mm b/l Neck: no stridor, normal ROM, trachea midline Chest: normal inspection Resp: normal work of breathing, speaking in full sentences Cardio: normal rate, normal rhythm Back: normal inspection, no rash Skin: warm, dry, normal color, no rash Neuro: alert, not altered, grossly non-focal, normal tone Ext: no edema Psych: normal mood, normal affect, normal behavior Course Vital Signs Vital signs: Vital Signs Temperature 36.8 C 02/08/22 11:57 Pulse 95 H 02/08/22 11:57 Respiratory Rate 18 02/08/22 11:57 Blood Pressure 139/86 02/08/22 11:57 Pulse Oximetry 99 02/08/22 11:57 Temperature 36.8 C 02/08/22 16:12 Temperature Source Oral 02/08/22 16:12 Pulse 79 02/08/22 16:12 Respiratory Rate 16 02/08/22 16:12 Respiratory Effort 02/08/22 12:08 Blood Pressure 132/98 H 02/08/22 16:12 Blood Pressure Position Sitting 02/08/22 11:57 Pulse Oximetry 99 02/08/22 16:12 Oxygen Delivery Method Room Air 02/08/22 16:12 Oxygen Flow Rate 0 02/08/22 16:12 Pain Level 0 02/08/22 11:57 Lab/Test Results Lab/Test Results: Laboratory Tests Range/Units 02/08/22 02/08/22 14:45 14:45 WBC (4.4-10.8) 10^3/uL 11.70 H RBC (3.93-5.22) 10^6/uL 4.82 Hgb (11.2-15.7) g/dL 13.9 Hct (36.0-46.0) % 41.5 MCV (80-95) fL 86 MCH (27.0-33.0) pg 28.8 MCHC (32.0-36.0) % 33.5 RDW (11.7-14.6) % 13.1 Plt Count (130-400) 10^3/uL 435 H MPV (8.0-11.0) fL 9.3 Immature Gran % 0.2 Neutrophils % 58.4 Lymphocytes % 33.1 Monocytes % 5.2 Eosinophils % 2.6 Basophils % 0.5 Nucleated RBC % (0.0-0.3) % 0.0 Absolute Neutrophils (1.2-6.7) 10^3/uL 6.83 H Absolute Lymphocytes (1.2-3.4) 10^3/uL 3.87 H Absolute Monocytes (0.1-0.8) 10^3/uL 0.61 Absolute Eosinophils (0.0-0.7) 10^3/uL 0.30 Absolute Basophils (0.0-0.2) 10^3/uL 0.06 Sodium (136-145) mmol/L 139 Potassium (3.5-5.1) mmol/L 3.2 L Chloride (98-107) mmol/L 100 Carbon Dioxide (21.0-32.0) mmol/L 32.2 H Anion Gap (3-11) mmol/L 6.8 BUN (7-18) mg/dL 18 Creatinine (0.55-1.02) mg/dL 0.9 Est GFR (CKD-EPI 2020) (mL/min/1.73m2) 76.92 Glucose (74-106) mg/dL 113 H Calcium (8.5-10.1) mg/dL 9.0 Magnesium (1.8-2.4) mg/dL 2.1 Total Bilirubin (0.2-1.0) mg/dL 0.3 AST (15-37) U/L 22 ALT (14-59) U/L 24 Alkaline Phosphatase (46-116) U/L 71 Total Protein (6.4-8.2) g/dL 7.4 Albumin (3.4-5.0) g/dL 3.6 TSH (0.36-3.74) uIU/mL 1.66
[2022-02-08 16:20] LABS: Source Nasal/Nares
[2022-02-08 16:33] VITALS: BP 166/88; PULSE 76; RESP 20; TEMP 36.1; O2SAT 98
[2022-02-08 16:50] LABS: COVID-19 PCR Negative (Negative)
[2022-02-08] MEDS: Normal Saline Flush 10 ML SYR IVP (16:56)
[2022-02-08] MEDS: Gabapentin 800 MG TAB PO (19:32)
[2022-02-08] MEDS: Venlafaxine 75 MG TAB PO (19:33)
[2022-02-08] MEDS: Pramipexole 0.25 MG TAB PO (19:33)
[2022-02-08] MEDS: Potassium Chloride 20 MEQ TABCR PO (19:33)
[2022-02-08] MEDS: aMILoride HCL 5 MG TAB PO (19:36)
[2022-02-08] MEDS: Melatonin 3 MG TAB PO (22:12)
[2022-02-08 23:17] VITALS: BP 130/83; PULSE 60; RESP 19; TEMP 36.2; O2SAT 98
[2022-02-09 07:32] VITALS: BP 131/88; PULSE 73; RESP 16; TEMP 36.3; O2SAT 99
--- NOTE | 2022-02-09 07:41 | NUR.NOTE ---
Nursing Note: morning finger stick on glucometer was 85, pts own reader said glucose was 75.
[2022-02-09] MEDS: buPROPion-XL 150 MG TABCR 300 MG PO (08:36)
[2022-02-09] MEDS: Potassium Chloride 20 MEQ TABCR PO (08:36)
[2022-02-09] MEDS: Gabapentin 800 MG TAB PO (08:36)
[2022-02-09] MEDS: Omeprazole 20 MG CAPCR 40 MG PO (08:37)
[2022-02-09] MEDS: Pramipexole 0.25 MG TAB PO (08:37)
[2022-02-09] MEDS: aMILoride HCL 5 MG TAB PO (08:37)
[2022-02-09] MEDS: Venlafaxine 75 MG TAB PO (08:37)
--- NOTE | 2022-02-09 09:09 | INITIAL_ITS ---
- If Service Date Differs Date of service: 02/09/22 Time of Service: 09:09 Care Management Initial Assess REASON FOR HOSPITALIZATION:: Hypoglycemia PAST MEDICAL HISTORY/PAST SURGICAL HISTORY:: All Active Problems (Updated 02/08/22 @ 16:08 by Misty Marmolejo NP). Discharge planning issues (Acute). Heel lesion (Acute). Right heel, cracked skin .. inner foot tenderness .. out of proportion tenderness .. possible assoc with fever? (improved with soaking, but not closing). Fever (Acute). Over 1 week; T 103/102/99; Neg COVID; Awaiting Flu. Status post bariatric surgery (Acute). Successful weight loss, but dangerous, symptomatic HYPOglycemia [neg dumping syndrome per [facility] Team]. Hypoglycemia (Acute 04/12/21). [facility] [place] SARS-CoV-2 positive (Acute ~10/26/21). Pelvic pain (Acute). Dysmenorrhea (Acute). [place] exposure (Acute). Dtr (+) .. Sore Throat, lab [ ]. Skin lesion (Acute). Mild wound, 2' probable abd intertrigo. Dumping syndrome (Acute 04/12/21). NOT per Bariatric Team.. [place] [facility] [place] [facility] [place] re-eval as NEG for dumping syndrome, 05/2021. Scab of knee (Acute). fell last week, rough/dry scab, but irritated .. Trial debride @ home, consider surgtery if tender. Facial twitching (Acute). Nodule of left lung (Acute). 3mm, incidental finding, LLL (12/2020 CT). [ ] 6 mo FU.. Paresthesias (Acute). Hypotension (Acute). post gastric bypass ... lowering ACEi, BB, CCB. DIuretics in place 2' LE edema (albeit improved). Depressive disorder (Chronic 05/23/11). Wellbutrin 2012, discon 12/2012, restart 05/2013. Hx of Marylou thyroiditis (Acute). Complicated grieving (Acute). Her basically healthy mo due to COVID19 infection. She was intubated within days of becoming sick, sending out a cheerful text 4 days beforehand! Monisha has cancelled the trip just before flights, etc were shut down; she was originally worried for her fa 2' health issues and dementia. Close-knit family; inability for gathering for .. video/webexed with family in [place] (mo in Fl). Imbalance (Acute). Cervical radiculopathy (Acute). Hematuria (Acute). Other seborrheic keratosis (Acute). Hypomagnesemia (Acute). Leg edema (Acute). Hypokalemia (Acute 11/07/16). Chronic, possible 2' IBS/Diarrhea. Continued despite GI improvements, albeit improved. Trial Eplerenone, to be followed by HCTZ decrease. 10/09/18 Intermittent improvement, but unsteady and unpredictable .. Monisha seems unable to maintain her own K levels WNL w/o bolus/infusions at this time. Unable to tolerate K-sparing diuretics. Cont to research, evaluate, consult .. 09/2018, ik. Flash pulmonary edema (Acute). Lymphedema (Chronic). referring to PT for evaluation and recommendations.. Bunion (Acute). 12/24/18-nelson Yarbrough DPM. Sustained VT (ventricular tachycardia) (Acute). during hypokalemia episode. Abnormal serum creatinine level (Acute 07/2018). Serious Creatinine elevation, with resolution between episodes of dehydration .. Fatty liver (Acute). 10/02/18 Dr [place]roeder[place]. Angioedema (Acute). 10/02/18 Dr Schroeder[place] . Flushing (Acute). 10/02/18 Dr Schroeder[place]. Out of work (Acute 08/21/18). Recommend continuation of reduced hours due to continued electrolyte imbalances, fatigue and metabolic disorder. Unclear etiology makes it difficult to create a clear treatment plan, which in turn, makes routine and FT work difficult to manage. Revised [facility] Ppwk (06/2019). Solid, intermittent improvements, but unpredictable. 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 10/30/18, mian. I support time off from work due to continued electrolyte imbalances which cannot be explained. Re-referring to [place] [facility] [place] well as [facility]. Elevated plasma metanephrines (Acute 08/2018). Ordered by Endo, CT (Abd) [ ] ... follow up with Endo week of October 07. 08/2018, ik. Kidney stone (Acute 02/27/12). Migraine headache with aura (Chronic). DR. VALDEZ 08/29/11. Topamax works. Vertigo and/or pain. Uterine leiomyoma (Chronic 11/02/15). On pelvic ultrasound uterus enlarged approximate 13 cm. 08/04/2021 pelvic pain radiating from back. Serrated adenoma of colon (Acute 07/07/15). Dr. Contreras, sessile colonic polyp, inflammatory polyp. Sensorineural hearing loss, bilateral (Chronic 11/01/17). Restless leg (Acute 03/31/15). Some relief with iron infusion (albeit reaction to infusion), 05/2018. 06/16/19 f/u at sleep clinic. Reflux esophagitis (Acute 07/07/15). Dr. Contreras gastritis. Rectal bleeding (Acute 03/02/15). Episodic - Was diagnosed with AVM's. Premenstrual dysphoric disorder (Acute 11/10/14). Gabriel Henderson MD [place] [facility]. Positive TG (antinuclear antibody) (Acute 06/07/15). [facility] ([facility] 09/05/11). DR. VALDEZ 08/29/11. Topamax works. Vertigo and/or pain. Mgrn wo aura wo ntrc mgr (Acute 09/05/11). DR. VALDEZ 08/29/11. Topamax works. Vertigo and/or pain. Incomplete tear of left rotator cuff (Acute 05/31/16). Essential hypertension (Acute 12/05/12). Elevated BPs, especially DBP. Hx high BP since of twins (20yrs), noted in Nephro note (2017). HCTZ used x years for HTN & Edema. Spirono not tolerated (Hives/Flush). Trial Eplerenone, 10/09/18, ik Unable to tolerate eplerenone, angioedema-like reactions to K-sparing diuretics.. 09/2018, ik. Diarrhea (Acute 10/29/15). Chronic, secretory .. s/p multiple [place], Bx. Trial cholestyramine, 10/2018, ik planned. Alopecia areata (Acute 05/23/11). Dx'ed 1990s. Hair prosthesis. Medical History (Updated 02/08/22 @ 16:08 by Misty Marmolejo NP). Alopecia. Anemia. Class 3 severe obesity due to excess calories with body mass index (BMI) of 40.0 to 44.9 in adult. 07/31/19 [facility] Dehydration (~08/21/18). Several episodes now .. She can almost gauge her K levels based on mm weakness. [ ] BMP [ ] IVF-KCl Bolus-K have helped with hypokalemia in between bouts of d iarrhea/dehydration when IVF not needed. 09/2018, ik. Depression. Diabetes mellitus type 2 in obese. Improved s/p bariatric surgery and wt loss BUT HYPOglycemia. GERD (gastroesophageal reflux disease). Marylou's thyroiditis. Hx of adenomatous colonic polyps. Impaired fasting glucose (02/11/14). A1C 6.1% 12/2012 .. A1C 5.8 07/04/18. Irritable bowel syndrome. diarrhea predominant. Preeclampsia. Rectal hemorrhage (03/02/15). Reflux esophagitis. Surgical History (Updated 01/18/22 @ 12:40 by Huyen Ramon DO). section. x3. Colonoscopy - MAC (03/16/14). w/ bx. 2016-serrated adenomatous polyp. EGD - MAC. 2016. Endometrial Ablation. 2007. 2012. H/O colonoscopy (12/05/17). History of esophagogastroduodenoscopy (EGD) (12/05/17). History of Nadia-en-Y gastric bypass (~11/2019) PREVIOUS FUNCTIONAL STATUS/SOCIAL/FAMILY SUPPORTS:: Monisha lives in an apartment [place], [place] with her Jayne and 2 daughters. She and Jayne have a blended family and they both have other adult children who live outside the home. 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 She is independent at baseline and does not receive any community services. CURRENT FUNCTIONAL STATUS:: Monisha was sitting on the side of her bed when CM met with her. She engaged easily in conversation with CM, well known to her from previous hospital stays as well as from working in the same facility. Monisha shared that she and her long time partner Jayne got 2 years ago. They are in the process of buying (building) a home together in [place] and hope to move in by the end of next week. Monisha talked about her family and how well all of the children get along, especially the 2 girls who are still at home. ADVANCE DIRECTIVES:: On file. Jayne Busch - domestic partner is [employer] Has patient been provided with info about the portal/API?: Yes Did the patient sign up for the portal?: Yes (previously) CODE STATUS:: Full Code INSURANCE COVERAGE / FINANCIAL ISSUES:: [employer] CURRENT HOME/COMMUNITY SERVICES/EQUIPMENT:: none PRIMARY CARE PHYSICIAN:: Huyen Ramon POTENTIAL DISCHARGE NEEDS:: Follow up with PCP and plan of care PATIENT/FAMILY EDUCATION NEEDS:: Review of discharge instructions, limitations, activity, follow up plan, Ask Me Three TRANSPORTATION:: via private vehicle with family PLAN:: Monisha will likely be discharged home with no new services when medically cleared by provider. She will follow up with her community providers and plan of care and transport with family. CM will follow and assess for ongoing discharge needs.
[2022-02-09] MEDS: Normal Saline Flush 10 ML SYR IVP (09:48)
[2022-02-09] MEDS: POTASSIUM CHLORIDE 20 MEQ/100 ML BAG 50 MEQ IVPB ×2 (09:49→12:27)
[2022-02-09 10:00] LABS: Lyme Ab w Rflx to Lyme Confirm Negative (Negative)
[2022-02-09] MEDS: Potassium Chloride 20 MEQ TABCR 40 MEQ PO (12:57)
--- NOTE | 2022-02-09 12:57 | W.PM.DS.N ---
Date of service: 02/09/22 Time of Service: 12:57 DS: Diagnosis Discharge Diagnosis (1) Hypoglycemia: Status: Resolved (2) Hypokalemia: Asessment and Plan: Repleted Discharge Plan Disposition Patient Disposition: HOME Condition: Improving Discharge Details Reason For Visit: Hypoglycemia Admit Date/Time: 02/08/22 15:47 Admit Provider: Trent Holguin Attending Provider: Trent Holguin Primary Care Provider: Huyen Ramon Hospital Course Hospital Course: 51 yo female with h/o obesity, s/p gastric bypass 2 years, she is not a diabetic, although prior to gastric bypass she was treated for diabetes. Patient presented to the [facility] ED with the complaint of exacerabotion of what she described as approximately one year of episodes of frequent hypoglycemia -- becomes symptomatic, checks sugar (which is low) and then resolves with eating. She reported it is now occurring more frequently. In ER initial glucose 107. Over course of stay fingersticks have continued to drift down despite D50 and D5 Ringers. She was placed on observation status on the medical floor. In the ED it was noted she also was hypokalemic (2.9) and received oral and IV replenishment. She is on diuretics and hypokalemia has been an ongoing problem for her. She did not have any hypoglycmia that required treatent during her stay. Lowest glucose being 67, with a median of 90. She did however become symptomatic with feeling weak, lightheaded and diaphoretic when it is 60-80. It is important to note that she has symtoms and the actual glucose number is important, however does not have to be super low for her to suffer symptoms. She does resolve after eating, but it takes about an hour. She has a CGM and checks it frequently. We did check her results with fingerstick reults and it was found that her CGM is about 15-20 mg/dl consistanlty lower than our fingersticks. She was asked to calibrate it and change the sensor. She was found to have post parandial hypoglycemia, not unusual s/p bariatric surgery. Not having diabetes and having most glucose levels over 90 mg/dl she was given instruction to eat small amounts every 2 hours or so, high protien, complex carbs. She agreed she would do this. She was also advised to limit exercise until this has been figured out and is resolving. She does have an appointment with Dr Ortega, instructor physical @ [facility] in April. I called and was told they would try to move up her appointment. Dr Ortega did give the same advice as our discharge plan. She is also asked to follow up with Bariatric surgery, she does have an appointment in the near future. 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 She was discharged to home, stable improved. Discussed with Dr Contreras Home Meds and New Rx's Prescriptions: Continued (DME) Dexcom G6 Sensor Device See Rx Instructions .ROUTE .MEDSUPPLY Qty: 3 11RF Rx Instructions: As directed (DME) Dexcom G6 Transmitter Device See Rx Instructions .ROUTE .MEDSUPPLY Qty: 1 3RF Rx Instructions: to be replaced ~Q3mo glucagon 3 mg/actuation spray,non-aerosol 3 mg intranasal ONCE Qty: 1 3RF Rx Instructions: as a single dose (DME) Non-Stick Pad 3 X 4 bandage See Rx Instructions .Route Qty: 10 0RF Rx Instructions: As directed (DME) hair prosthesis See Rx Instructions .Route .MEDSUPPLY Qty: 1 1RF Rx Instructions: hair prosthesis for alopecia areata of scalp bariatric fusion chewable complete 2 tab tablet 2 100 ml PO DAILY (DME) Scalp Hair Prosthesis Qty: 1 1RF Rx Instructions: Wear as recommende (DME) Blood Glucose Test Strip See Rx Instructions .ROUTE .MEDSUPPLY Qty: 100 3RF Rx Instructions: As directed to check blood glucose daily. No insulin. Dispense covered brand. (DME) glucometer See Rx Instructions .Route .MEDSUPPLY Qty: 1 0RF Rx Instructions: As directed to manage, prevent hypoglycemic episodes (DME) Blood Glucose Test Strip See Rx Instructions .ROUTE .MEDSUPPLY Qty: 100 3RF Rx Instructions: As directed to check blood glucose daily. No insulin. Dispense covered brand. (DME) lancets [Comfort Lancets] Misc See Rx Instructions .ROUTE .MEDSUPPLY Qty: 100 1RF Rx Instructions: As directed to check blood glucose daily. No insulin. Dispense covered brand. 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 2g/day potassium chloride 20 mEq tablet extended release 20 meq PO PRN PRN (Reason: hypokalemia) Rx Instructions: taking prn per lab test cgc Discharge Instructions Instructions: Pre-Competition Meals for Athletes (GEN), Hypokalemia (DC), Non-diabetic Hypoglycemia (DC) Additional Instructions: Eat small, frequent meals; increase protein. Have your CGM calibrated. Go by how you feel, not necessarily the number on the read out. If you feel weak, dizzy, sweating - have something to eat. Follow up with endocrinology as planned and bariatrics. Stand Alone Forms: Nursing Discharge Form Referrals: Huyen Ramon DO [Primary Care Provider] - 02/17/22 8:30 am Mario Ortega [ NON-[facility] STAFF PHYSICIAN] - 05/01/22 9:30 am () Activity:: Activity as Tolerated Equipment/Supplies:: Test strips and Lancets Diet:: As Tolerated Discharge Data Discharge Date/Time-TO BE ENTERED AT DEPARTURE: 02/09/22 14:14 DS: Summary Time Spent with Patient providing and/or coordinating discharge services: Greater than 30 minutes Status at Discharge Functional status at discharge: independent ambulation Overall status at discharge: patient is back to baseline Mental Status: mental status grossly normal Speech and Movement: speech and movement normal Mood: congruent mood Affect: normal affect Exam Psych Mental Status: mental status grossly normal Speech and Movement: speech and movement normal Mood: congruent mood Affect: normal affect DS: Data Vitals/I&O Vitals and I&O: Vital Signs Temperature 36.3 C L 02/09/22 07:32 Temperature Source Tympanic 02/09/22 07:32 Pulse 73 02/09/22 07:32 Pulse Rhythm Regular 02/09/22 09:26 Respiratory Rate 16 02/09/22 07:32 Respiratory Effort Non-Labored 02/09/22 09:26 Respiratory Depth Normal 02/09/22 09:26 Respiratory Pattern Normal 02/09/22 09:26 Blood Pressure 131/88 02/09/22 07:32 Blood Pressure Position Sitting 02/08/22 11:57 Pulse Oximetry 99 02/09/22 07:32 Oxygen Delivery Method Room Air 02/09/22 07:32 Oxygen Flow Rate 0 02/09/22 07:32 Pain Level 0 02/09/22 07:32 Intake & Output 02/08/22 02/09/22 02/09/22 23:59 11:59 23:59 Intake Total 250 / 250 300 / 312.5 12.5 / 312.5 Output Total 500 / 500 Balance 250 / 250 -200 / -187.5 12.5 / -187.5 Weight 81.4 kg Intake: IV 100 / 112.5 12.5 / 112.5 Oral 240 / 240 200 / 200 Output: Urine 500 / 500 Other: Urine Color Dark April Urine Appearance Clear Clear Voiding Methods Toilet Data Completed and Pending Labs on day of discharge: Labs from last 24 hours 02/08/22 02/08/22 02/08/22 16:15 14:45 14:45 WBC 11.70 H RBC 4.82 Hgb 13.9 Hct 41.5 MCV 86 MCH 28.8 MCHC 33.5 RDW 13.1 Plt Count 435 H MPV 9.3 Immature Gran % 0.2 Neutrophils % 58.4 Lymphocytes % 33.1 Monocytes % 5.2 Eosinophils % 2.6 Basophils % 0.5 Nucleated RBC % 0.0 Absolute Neutrophils 6.83 H Absolute Lymphocytes 3.87 H Absolute Monocytes 0.61 Absolute Eosinophils 0.30 Absolute Basophils 0.06 Sodium Potassium Chloride Carbon Dioxide Anion Gap BUN Creatinine Est GFR (CKD-EPI 2020) Glucose Calcium Magnesium Total Bilirubin AST ALT Alkaline Phosphatase Total Protein Albumin TSH A.phagocytophil DNA PCR Pending B. divergens/MO-1 PCR Pending Babesia duncani (PCR) Pending Babesia microti DNA PCR Pending Borrelia (PCR) Pending Lyme Disease Antibody Negative COVID-19 Source Nasal/Nares SARS-CoV-2 (PCR) Negative E.chaffeensis DNA (PCR) Pending E.ewingii/canis DNA PCR Pending E. muris-like DNA (PCR) Pending 02/08/22 14:45 WBC RBC Hgb Hct MCV MCH MCHC RDW Plt Count MPV Immature Gran % Neutrophils % Lymphocytes % Monocytes % Eosinophils % Basophils % Nucleated RBC % Absolute Neutrophils Absolute Lymphocytes Absolute Monocytes Absolute Eosinophils Absolute Basophils Sodium 139 Potassium 3.2 L Chloride 100 Carbon Dioxide 32.2 H Anion Gap 6.8 BUN 18 Creatinine 0.9 Est GFR (CKD-EPI 2020) 76.92 Glucose 113 H Calcium 9.0 Magnesium 2.1 Total Bilirubin 0.3 AST 22 ALT 24 Alkaline Phosphatase 71 Total Protein 7.4 Albumin 3.6 TSH 1.66 A.phagocytophil DNA PCR B. divergens/MO-1 PCR Babesia duncani (PCR) Babesia microti DNA PCR Borrelia (PCR) Lyme Disease Antibody COVID-19 Source SARS-CoV-2 (PCR) E.chaffeensis DNA (PCR) E.ewingii/canis DNA PCR E. muris-like DNA (PCR) PFSH All Active Problems Hypoglycemia (Acute) Heel lesion (Acute) Right heel, cracked skin .. inner foot tenderness .. out of proportion tenderness .. possible assoc with fever? (improved with soaking, but not closing) Fever (Acute) Over 1 week; T 103/102/99; Neg COVID; Awaiting Flu Status post bariatric surgery (Acute) Successful weight loss, but dangerous, symptomatic HYPOglycemia [neg dumping syndrome per [facility]] SARS-CoV-2 positive (Acute ~10/26/21) Pelvic pain (Acute) Dysmenorrhea (Acute) Sawyer exposure (Acute) Dtr (+) .. Sore Throat, lab [ ] Skin lesion (Acute) Mild wound, 2' probable abd intertrigo. Dumping syndrome (Acute 04/12/21) NOT per Bariatric Team.. Dx per [facility] Endo .. [facility] Bariatric Team re-eval as NEG for dumping syndrome, 05/2021 Scab of knee (Acute) fell last week, rough/dry scab, but irritated .. Trial debride @ home, consider surgtery if tender. Facial twitching (Acute) Nodule of left lung (Acute) 3mm, incidental finding, LLL (12/2020 CT). [ ] 6 mo FU.. Paresthesias (Acute) Hypotension (Acute) post gastric bypass ... lowering ACEi, BB, CCB. DIuretics in place 2' LE edema (albeit improved). Depressive disorder (Chronic 05/23/11) Wellbutrin 2012, discon 12/2012, restart 05/2013 Hx of Marylou thyroiditis (Acute) Complicated grieving (Acute) Her basically healthy mo due to COVID19 infection. She was intubated within days of becoming sick, sending out a cheerful text 4 days beforehand! Monisha has cancelled the trip just before flights, etc were shut down; she was originally worried for her fa 2' health issues and dementia. Close-knit family; inability for gathering for .. video/webexed with family in [facility] (mo in [place]). Imbalance (Acute) Cervical radiculopathy (Acute) Hematuria (Acute) Other seborrheic keratosis (Acute) Hypomagnesemia (Acute) Leg edema (Acute) Flash pulmonary edema (Acute) Lymphedema (Chronic) referring to PT for evaluation and recommendations.. Bunion (Acute) 12/24/18-nelson Yarbrough DPM Sustained VT (ventricular tachycardia) (Acute) during hypokalemia episode Abnormal serum creatinine level (Acute 07/2018) Serious Creatinine elevation, with resolution between episodes of dehydration .. Fatty liver (Acute) 10/02/18 Dr Schroeder/[facility] Angioedema (Acute) 10/02/18 Dr Schroeder/[facility] Flushing (Acute) 10/02/18 Dr Schroeder/[facility] Out of work (Acute 08/21/18) Recommend continuation of reduced hours due to continued electrolyte imbalances, fatigue and metabolic disorder. Unclear etiology makes it difficult to create a clear treatment plan, which in turn, makes routine and FT work difficult to manage. Revised [facility] Ppwk (06/2019). Solid, intermittent improvements, but unpredictable. 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 10/30/18, ik. I support time off from work due to continued electrolyte imbalances which cannot be explained. Re-referring to specialists @ [facility] as well as [facility]. Elevated plasma metanephrines (Acute 08/2018) Ordered by Endo, CT (Abd) [ ] ... follow up with Endo week of October 07. 08/2018, mian Kidney stone (Acute 02/27/12) Migraine headache with aura (Chronic) DR. VALDEZ 08/29/11 Topamax works Vertigo and/or pain Uterine leiomyoma (Chronic 11/02/15) On pelvic ultrasound uterus enlarged approximate 13 cm. 08/04/2021 pelvic pain radiating from back. Serrated adenoma of colon (Acute 07/07/15) Dr. Contreras, sessile colonic polyp, inflammatory polyp Sensorineural hearing loss, bilateral (Chronic 11/01/17) Restless leg (Acute 03/31/15) Some relief with iron infusion (albeit reaction to infusion), 05/2018. 06/16/19 f/u at sleep clinic Reflux esophagitis (Acute 07/07/15) Dr. Contreras gastritis Rectal bleeding (Acute 03/02/15) Episodic - Was diagnosed with AVM's Premenstrual dysphoric disorder (Acute 11/10/14) Gabriel Henderson MD [place] [facility] Positive TG (antinuclear antibody) (Acute 06/07/15) Mgrn w aura w intrc mgrn (Acute 09/05/11) DR. VALDEZ 08/29/11 Topamax works Vertigo and/or pain Mgrn wo aura wo ntrc mgr (Acute 09/05/11) DR. VALDEZ 08/29/11 Topamax works Vertigo and/or pain Incomplete tear of left rotator cuff (Acute 05/31/16) Diarrhea (Acute 10/29/15) Chronic, secretory .. s/p multiple [place], Bx. Trial cholestyramine, 10/2018, ik planned. Alopecia areata (Acute 05/23/11) Dx'ed 1990s Hair prosthesis Medical History Alopecia Anemia Class 3 severe obesity due to excess calories with body mass index (BMI) of 40.0 to 44.9 in adult 07/31/19 [facility] Dehydration (~08/21/18) Several episodes now .. She can almost gauge her K levels based on mm weakness. [ ] BMP [ ] IVF-KCl Bolus-K have helped with hypokalemia in between bouts of diarrhea/dehydration when IVF not needed. 09/2018, mian Depression Diabetes mellitus type 2 in obese Improved s/p bariatric surgery and wt loss BUT HYPOglycemia Essential hypertension (12/05/12) Elevated BPs, especially DBP. Hx high BP since of twins (20yrs), noted in Nephro note (2016). HCTZ used x years for HTN & Edema. Spirono not tolerated (Hives/Flush). Trial Eplerenone, 10/09/18, ik Unable to tolerate eplerenone, angioedema-like reactions to K-sparing diuretics.. 09/2018, mian GERD (gastroesophageal reflux disease) Marylou's thyroiditis Hx of adenomatous colonic polyps Hypokalemia (11/07/16) Chronic, possible 2' IBS/Diarrhea. Continued despite GI improvements, albeit improved. Trial Eplerenone, to be followed by HCTZ decrease. 10/09/18 Intermittent improvement, but unsteady and unpredictable .. Monisha seems unable to maintain her own K levels WNL w/o bolus/infusions at this time. Unable to tolerate K-sparing diuretics. Cont to research, evaluate, consult .. 09/2018, mian Impaired fasting glucose (02/11/14) A1C 6.1% 12/2012 .. A1C 5.8 07/04/18. Irritable bowel syndrome diarrhea predominant Preeclampsia Rectal hemorrhage (03/02/15) Reflux esophagitis Surgical History section x3 Colonoscopy - MAC (03/16/14) w/ bx 2015-serrated adenomatous polyp EGD - MAC 2015 Endometrial Ablation 2007 2012 H/O colonoscopy (12/05/17) History of esophagogastroduodenoscopy (EGD) (12/05/17) History of Nadia-en-Y gastric bypass (~11/2019) Tonsillectomy Family History Mother Pulmonary hypertension Heart disease valve replacement Father Prostate cancer Essential hypertension Parkinsons Sister Uterine cancer Brother No problems noted. Other Colon cancer Social History Smoking/Tobacco Use Status: Never Smoking risk assessment performed?: Yes Alcohol Intake: current Alcohol Intake frequency: holidays/special occasions only Alcohol type: wine Drug use: Never Substance use type: does not use Adopted: No Caregiver/Support person: No Household members: spouse and other Details: Partner - Jayne, children Housing: house Number of Children: 4 number of grandchildren: 0 Communication Needs: Corrective Lenses Education Level: college current occupation: Daily today tested negative on this on the testing day negative negative di Pets and animals: Yes Pets and animals: cat(s) and dog(s) Sexually active: Yes Do you think of yourself as: lesbian/peña/homosexual Current gender identity: female What is your relationship status?: living with partner Panel score (0-1 are the most socially isolated patients): 1 What type of physical activity do you participate in: walking Duration: 15-30 minutes/day Frequency: 3-4 times per week Seatbelt use: always Working smoke detector in home: Yes Fire extinguisher in home: Yes Carbon monox detector in home: Yes Firearms in home: No Do you feel safe at home: Yes Do you feel safe in your relationship?: Yes Female Reproductive History Menstrual control method: permanent sterilization History History 3 Para 4 Hx # Term Pregnancies Multiple births 1 Hx # Pregnancies Ectopic pregnancies AB induced Hx Number of Living Children AB spontaneous
--- NOTE | 2022-02-09 13:49 | PDOC.CMDIS ---
- If Service Date Differs Date of service: 02/09/22 Time of Service: 13:49 LACE Index Scoring Tool - Questions: Length of Stay (in days): 1 Acuity (Admit via E.D.?): Yes Comorbidities: Diabetes w/o Complication E.D. Visits: 2 - Answers: Total Score: 7 Risk of Readmission: Low Risk Care Management Discharge Reason for Hospitalization: Hypoglycemia Discharge Plan: Monisha will be discharged home with no new services. She will follow up with her community providers and plan of care and will drive herself home. Patient/Family Education Needs: Review of discharge instructions, limitations, activity, follow up plan, Ask Me Three
[2022-02-10 18:52] LABS: Anaplasma phagocytophilum Negative (Negative); B. miyamotoi PCR Negative (Negative); Babesia divergens/MO-1 Negative (Negative); Babesia duncani Negative (Negative); Babesia microti Negative (Negative); Ehrlichia chaffeensis Negative (Negative); Ehrlichia ewingii/canis Negative (Negative); Ehrlichia muris eauclairensis Negative (Negative)
== END 2022-02-09 14:14 | disposition home or self-care (01) ==
LOC: ER 16:01 → MS 16:28
PROVIDERS: Admitting Provider Family Medicine; Emergency Provider Student in an Organized Health Care Education/Training Program; PCP Student in an Organized Health Care Education/Training Program; Visit Provider Family Medicine
DX: E16.2 Hypoglycemia, unspecified (principal); E87.6 Hypokalemia; I10 Essential (primary) hypertension; Z98.84 Bariatric surgery status; M54.12 Radiculopathy, cervical region; K76.0 Fatty (change of) liver, not elsewhere classified; E06.3 Autoimmune thyroiditis; Z86.16 Personal history of COVID-19; I95.9 Hypotension, unspecified; F32.A Depression, unspecified
CPT/HCPCS: 80053; 87635; 87798; 90471; 90686; 96365; 96366; 99285; 83735; 84443; 85025; 86618; 99217; 99219; G0378; J3480

== ENCOUNTER 2022-02-10 01:28 | Outpatient (CLI) | payer OTHER, SELFPAY ==
[2022-02-10 14:01] LABS: Anion Gap 4.8 mmol/L (3-11); BUN 22 mg/dL (7-18); CO2 30.2 mmol/L (21.0-32.0); CREATININE 0.9 mg/dL (0.55-1.02); Calcium 8.8 mg/dL (8.5-10.1); Chloride 102 mmol/L (98-107); Estimated GFR 76.92 (mL/min/1.73m2); Glucose 111 mg/dL (74-106); Magnesium 1.8 mg/dL (1.8-2.4); Potassium 3.4 mmol/L (3.5-5.1); Sodium 137 mmol/L (136-145)
[2022-02-10 14:11] LABS: Hemoglobin A1C 5.7 % (<5.7)
== END 2022-02-10 01:29 | disposition home or self-care (01) ==
LOC: LBO 01:29
PROVIDERS: PCP Student in an Organized Health Care Education/Training Program; Visit Provider Student in an Organized Health Care Education/Training Program
DX: R73.09 Other abnormal glucose (principal); E87.6 Hypokalemia
CPT/HCPCS: 36415; 80048; 83036; 83735

== ENCOUNTER 2022-02-13 00:51 | Observation (INO) | payer OTHER, SELFPAY ==
[2022-02-13] VITALS (48 sets, daily range): BP systolic 128–160; BP diastolic 88–114; PULSE 74–101; RESP 12–24; TEMP 36.1–36.8; O2SAT 96–100
--- NOTE | 2022-02-13 01:18 | W.ED.GENAD ---
Discharge Plan Disposition Patient Disposition: [facility] INPATIENT Condition: Good Discharge Details Chief Complaint: Diabetes Clinical Impression: Hypoglycemia Primary Care Provider: Huyen Ramon ED Provider: Gerry Jenkins Home Meds and New Rx's Prescriptions: No Action (DME) Dexcom G6 Sensor Device See Rx Instructions .ROUTE .MEDSUPPLY Qty: 3 11RF Rx Instructions: As directed (DME) Dexcom G6 Transmitter Device See Rx Instructions .ROUTE .MEDSUPPLY Qty: 1 3RF Rx Instructions: to be replaced ~Q3mo glucagon 3 mg/actuation spray,non-aerosol 3 mg intranasal ONCE Qty: 1 3RF Rx Instructions: as a single dose (DME) Non-Stick Pad 3 X 4 bandage See Rx Instructions .Route Qty: 10 0RF Rx Instructions: As directed (DME) hair prosthesis See Rx Instructions .Route .MEDSUPPLY Qty: 1 1RF Rx Instructions: hair prosthesis for alopecia areata of scalp bariatric fusion chewable complete 2 tab tablet 2 100 ml PO DAILY (DME) Scalp Hair Prosthesis Qty: 1 1RF Rx Instructions: Wear as recommende (DME) Blood Glucose Test Strip See Rx Instructions .ROUTE .MEDSUPPLY Qty: 100 3RF Rx Instructions: As directed to check blood glucose daily. No insulin. Dispense covered brand. (DME) glucometer See Rx Instructions .Route .MEDSUPPLY Qty: 1 0RF Rx Instructions: As directed to manage, prevent hypoglycemic episodes (DME) Blood Glucose Test Strip See Rx Instructions .ROUTE .MEDSUPPLY Qty: 100 3RF Rx Instructions: As directed to check blood glucose daily. No insulin. Dispense covered brand. (DME) lancets [Comfort Lancets] Misc See Rx Instructions .ROUTE .MEDSUPPLY Qty: 100 1RF Rx Instructions: As directed to check blood glucose daily. No insulin. Dispense covered brand. pramipexole 0.25 mg tablet 0.25 mg PO BID Qty: 180 3RF Rx Instructions: Take at lunch time and 1 hour prior to bedtime gabapentin 800 mg tablet 800 mg PO BID Qty: 180 3RF Rx Instructions: Take at noon and 1 hour prior to bedtime for RLS hydrochlorothiazide 25 mg tablet 25 mg PO BID PRN (Reason: edema) Qty: 180 3RF Rx Instructions: PRN amiloride 5 mg tablet 5 mg PO BID Qty: 180 3RF Rx Instructions: Continue bupropion HCl [Wellbutrin XL] 300 mg tablet extended release 24 hr 300 mg PO DAILY Qty: 90 3RF omeprazole 40 mg capsule,delayed release(DR/EC) 40 mg PO DAILY Qty: 90 3RF (DME) Dexcom G6 Veneer Jointer Operator Misc See Rx Instructions .Route Qty: 1 0RF Rx Instructions: as directed venlafaxine 75 mg tablet 75 mg PO BID Qty: 180 3RF Hold Instructions: Home Medication placed on hold at Doctor's office Rx Instructions: Re-start Rx triamcinolone acetonide 0.5 % ointment 1 applic TP PRN PRN Rx Instructions: 1 FTU per hand BID (1g) .. 2g/day potassium chloride 20 mEq tablet extended release 20 meq PO PRN PRN (Reason: hypokalemia) Rx Instructions: taking prn per lab test cgc Medical Decision Making This is a very pleasant 51-year-old female with a past medical history of GERD, hypertension, previous diabetes mellitus type 2 with obesity, Marylou's thyroiditis, and then subsequent Nadia-en-Y surgery about 2 years ago, which has now led for the last 6 to 12 months to episodes of worsening hyperglycemia. Patient presents today for hyperglycemia. She states that today she has been having a challenge keeping her blood sugar up. She has not been monitoring her blood sugar regularly. She is not on any diabetic medications that would artificially further down her blood sugar. This evening she noticed that her blood sugars were getting in the 30-40 range and spite of trying to eat and keep them up. Her mental status was changing, she came to the ER with her partner. She did not take her home glucagon yet. She does admit that her hypoglycemia has been notably worsening over the last few months. She was just admitted 4 to 5 days ago for hypoglycemia. She notices that her symptoms are made worse with aggressive exercise and high carb meals. She denies any other complaints at this time. No other modifying factors. Blood sugar at this time is 80, Accu-Chek. Patient's exam is otherwise stable. Vital signs stable. Patient still does feel slightly out of it and weak. We will give an amp of D50, and then lactated Ringer's with D5 saline at 100 an hour. On a side note, her symptoms appear notably clinically consistent with hyperinsulinemic hypoglycemia post Nadia-en-Y surgery. Patient has not been started on any medications for this yet. She is scheduled to see endocrinology Dr. Ortega at [facility]. But does not have an appointment until late April. We will monitor closely and reassess. 6:42 AM Patient was given an initial amp of D50, and started on lactated Ringer's with D5. She was able to tolerate eating 2 cups of yogurt and a fair bit of deli meats. Sugar peaked at around the high 100s/low 200s. After there she had eaten and her sugars peaked we did stop the D5 drip. Over the next 1 to 2 hours the patient continued to decline eventually getting back down to the 80s for her blood sugar. She became symptomatic again with diaphoresis and clamminess. D5 lactated Ringer drip was restarted. Additionally she was given IV and oral potassium here in the ED secondary to her hypokalemia. With her lack of stabilization, I do feel that she may require admission for further monitoring and potential further testing for intrinsic insulin levels and C-peptide levels. Discussed the case with Dr. Pink, he agrees with the assessment and plan. Plan of care SUPPORT MERCHANDISER HPI General Date/Time Provider Initiated Documentation: 02/13/22 00:58. HPI Narrative: This is a very pleasant 51-year-old female with a past medical history of GERD, hypertension, previous diabetes mellitus type 2 with obesity, Marylou's thyroiditis, and then subsequent Nadia-en-Y surgery about 2 years ago, which has now led for the last 6 to 12 months to episodes of worsening hyperglycemia. Patient presents today for hyperglycemia. She states that today she has been having a challenge keeping her blood sugar up. She has not been monitoring her blood sugar regularly. She is not on any diabetic medications that would artificially further down her blood sugar. This evening she noticed that her blood sugars were getting in the 30-40 range and spite of trying to eat and keep them up. Her mental status was changing, she came to the ER with her partner. She did not take her home glucagon yet. She does admit that her hypoglycemia has been notably worsening over the last few months. She was just admitted 4 to 5 days ago for hypoglycemia. She notices that her symptoms are made worse with aggressive exercise and high carb meals. She denies any other complaints at this time. No other modifying factors. Related Data Home Medications Medication Instructions Recorded Confirmed bariatric fusion chewable complete 2 100 ml PO DAILY 12/28/20 02/13/22 Scalp Hair Prosthesis #1 ea 02/03/21 02/13/22 blood sugar diagnostic (Blood #100 ea 04/10/21 02/13/22 Glucose Test strips) glucometer #1 ea 04/21/21 02/13/22 blood sugar diagnostic (Blood #100 ea 04/26/21 02/13/22 Glucose Test strips) lancets (Comfort Lancets) #100 ea 04/26/21 02/13/22 pramipexole 0.25 mg tablet 0.25 mg PO BID #180 tabs 04/27/21 02/13/22 gabapentin 800 mg tablet 800 mg PO BID #180 tabs 06/06/21 02/13/22 blood-glucose sensor (Dexcom G6 #3 ea 06/17/21 02/13/22 Sensor device) blood-glucose transmitter (Dexcom #1 ea 06/17/21 02/13/22 G6 Transmitter device) hydrochlorothiazide 25 mg tablet 25 mg PO BID PRN edema #180 tabs 07/21/21 02/13/22 glucagon 3 mg/actuation nasal spray 3 mg intranasal ONCE severe 07/22/21 02/13/22 hypoglycemia #1 ea non-adherent bandage 3 X 4 #10 ea 07/23/21 02/13/22 (Non-Stick Pad) amiloride 5 mg tablet 5 mg PO BID #180 tabs 08/25/21 02/13/22 bupropion HCl 300 mg 24 hr tablet, 300 mg PO DAILY #90 tabs 08/25/21 02/13/22 extended release (Wellbutrin XL) omeprazole 40 mg capsule,delayed 40 mg PO DAILY #90 tabs 08/25/21 02/13/22 release blood-glucose meter,continuous #1 ea 09/10/21 02/13/22 (Dexcom G6 Veneer Jointer Operator misc) venlafaxine 75 mg tablet 75 mg PO BID #180 tabs 11/30/21 02/13/22 potassium chloride 20 mEq 20 meq PO PRN PRN hypokalemia 02/08/22 02/13/22 tablet,extended release triamcinolone acetonide 0.5 % 1 applic topical PRN PRN 02/08/22 02/13/22 topical ointment Previous Rx's Medication Instructions Recorded Scalp Hair Prosthesis #1 ea 02/03/21 blood sugar diagnostic (Blood #100 ea 04/10/21 Glucose Test strips) glucometer #1 ea 04/21/21 blood sugar diagnostic (Blood #100 ea 04/26/21 Glucose Test strips) lancets (Comfort Lancets) #100 ea 04/26/21 pramipexole 0.25 mg tablet 0.25 mg PO BID #180 tabs 04/27/21 gabapentin 800 mg tablet 800 mg PO BID #180 tabs 06/06/21 blood-glucose sensor (Dexcom G6 #3 ea 06/17/21 Sensor device) blood-glucose transmitter (Dexcom #1 ea 06/17/21 G6 Transmitter device) hydrochlorothiazide 25 mg tablet 25 mg PO BID PRN edema #180 tabs 07/21/21 glucagon 3 mg/actuation nasal spray 3 mg intranasal ONCE severe 07/22/21 hypoglycemia #1 ea non-adherent bandage 3 X 4 #10 ea 07/23/21 (Non-Stick Pad) amiloride 5 mg tablet 5 mg PO BID #180 tabs 08/25/21 bupropion HCl 300 mg 24 hr tablet, 300 mg PO DAILY #90 tabs 08/25/21 extended release (Wellbutrin XL) omeprazole 40 mg capsule,delayed 40 mg PO DAILY #90 tabs 08/25/21 release blood-glucose meter,continuous #1 ea 09/10/21 (Dexcom G6 Veneer Jointer Operator misc) venlafaxine 75 mg tablet 75 mg PO BID #180 tabs 11/30/21 Allergies Allergy/AdvReac Type Severity Reaction Status Date / Time atropine Allergy Intermediate HIVES, Verified 02/13/22 01:10 SWOLLEN spironolactone Allergy Intermediate Skin Rash Verified 02/13/22 01:10 eplerenone AdvReac Intermediate swelling; Verified 02/13/22 01:10 SOB iron [From Venofer] AdvReac Intermediate Swelling/Ed Verified 02/13/22 01:10 brandon General Stated Complaint: Diabetes JOBY: 3 Review of Systems All systems reviewed & are unremarkable except as noted in HPI and below PFSH All Active Problems (Updated 02/13/22 @ 06:46 by Gerry Jenkins DO) Hypoglycemia (Acute) Hypoglycemia (Acute) Heel lesion (Acute) Right heel, cracked skin .. inner foot tenderness .. out of proportion tenderness .. possible assoc with fever? (improved with soaking, but not closing) Fever (Acute) Over 1 week; T 103/102/99; Neg COVID; Awaiting Flu Status post bariatric surgery (Acute) Successful weight loss, but dangerous, symptomatic HYPOglycemia [neg dumping syndrome per [facility]] SARS-CoV-2 positive (Acute ~10/26/21) Pelvic pain (Acute) Dysmenorrhea (Acute) Kemper exposure (Acute) Dtr (+) .. Sore Throat, lab [ ] Skin lesion (Acute) Mild wound, 2' probable abd intertrigo. Dumping syndrome (Acute 04/12/21) NOT per Bariatric Team.. Dx per [facility] Endo .. [facility] Bariatric Team re-eval as NEG for dumping syndrome, 05/2021 Scab of knee (Acute) fell last week, rough/dry scab, but irritated .. Trial debride @ home, consider surgtery if tender. Facial twitching (Acute) Nodule of left lung (Acute) 3mm, incidental finding, LLL (12/2020 CT). [ ] 6 mo FU.. Paresthesias (Acute) Hypotension (Acute) post gastric bypass ... lowering ACEi, BB, CCB. DIuretics in place 2' LE edema (albeit improved). Depressive disorder (Chronic 05/23/11) Wellbutrin 2012, discon 12/2012, restart 05/2013 Hx of Marylou thyroiditis (Acute) Complicated grieving (Acute) Her basically healthy mo due to COVID19 infection. She was intubated within days of becoming sick, sending out a cheerful text 4 days beforehand! oMnisha has cancelled the trip just before flights, etc were shut down; she was originally worried for her fa 2' health issues and dementia. Close-knit family; inability for gathering for .. video/webexed with family in [facility] (mo in [place]). Imbalance (Acute) Cervical radiculopathy (Acute) Hematuria (Acute) Other seborrheic keratosis (Acute) Hypomagnesemia (Acute) Leg edema (Acute) Flash pulmonary edema (Acute) Lymphedema (Chronic) referring to PT for evaluation and recommendations.. Bunion (Acute) 12/24/18-nelson Schanlaber,DPM Sustained VT (ventricular tachycardia) (Acute) during hypokalemia episode Abnormal serum creatinine level (Acute 07/2018) Serious Creatinine elevation, with resolution between episodes of dehydration .. Fatty liver (Acute) 10/02/18 Dr Schroeder/[facility] Angioedema (Acute) 10/02/18 Dr Schroeder/[facility] Flushing (Acute) 10/02/18 Dr Schroeder/[facility] Out of work (Acute 08/21/18) Recommend continuation of reduced hours due to continued electrolyte imbalances, fatigue and metabolic disorder. Unclear etiology makes it difficult to create a clear treatment plan, which in turn, makes routine and FT work difficult to manage. Revised [facility] Ppwk (06/2019). Solid, intermittent improvements, but unpredictable. 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 10/30/18, mian. I support time off from work due to continued electrolyte imbalances which cannot be explained. Re-referring to specialists @ [facility] as well as [facility]. Elevated plasma metanephrines (Acute 08/2018) Ordered by Endo, CT (Abd) [ ] ... follow up with Endo week of October 07. 08/2018, mian Kidney stone (Acute 02/27/12) Migraine headache with aura (Chronic) DR. VALDEZ 08/29/11 [employer] works Vertigo and/or pain Uterine leiomyoma (Chronic 11/02/15) On pelvic ultrasound uterus enlarged approximate 13 cm. 08/04/2021 pelvic pain radiating from back. Serrated adenoma of colon (Acute 07/07/15) Dr. Contreras, sessile colonic polyp, inflammatory polyp Sensorineural hearing loss, bilateral (Chronic 11/01/17) Restless leg (Acute 03/31/15) Some relief with iron infusion (albeit reaction to infusion), 05/2018. 06/16/19 f/u at sleep clinic Reflux esophagitis (Acute 07/07/15) Dr. Contreras gastritis Rectal bleeding (Acute 03/02/15) Episodic - Was diagnosed with AVM's Premenstrual dysphoric disorder (Acute 11/10/14) Gabriel Henderson MD [facility] Positive TG (antinuclear antibody) (Acute 06/07/15) Mgrn w aura w intrc mgrn (Acute 09/05/11) DR. VALDEZ 08/29/11 Topamax works Vertigo and/or pain Mgrn wo aura wo [facility] mgr (Acute 09/05/11) DR. VALDEZ 08/29/11 Topamax works Vertigo and/or pain Incomplete tear of left rotator cuff (Acute 05/31/16) Diarrhea (Acute 10/29/15) Chronic, secretory .. s/p multiple Gibson, Bx. Trial cholestyramine, 10/2018, mian planned. Alopecia areata (Acute 05/23/11) Dx'ed 1990s Hair prosthesis Medical History Alopecia Anemia Class 3 severe obesity due to excess calories with body mass index (BMI) of 40.0 to 44.9 in adult 07/31/19 [facility] Dehydration (~08/21/18) Several episodes now .. She can almost gauge her K levels based on mm weakness. [ ] BMP [ ] IVF-KCl Bolus-K have helped with hypokalemia in between bouts of diarrhea/dehydration when IVF not needed. 09/2018, mian Depression Diabetes mellitus type 2 in obese Improved s/p bariatric surgery and wt loss BUT HYPOglycemia Essential hypertension (12/05/12) Elevated BPs, especially DBP. Hx high BP since of twins (20yrs), noted in Nephro note (2017). HCTZ used x years for HTN & Edema. Spirono not tolerated (Hives/Flush). Trial Eplerenone, 10/09/18, mian Unable to tolerate eplerenone, angioedema-like reactions to K-sparing diuretics.. 09/2018, mian GERD (gastroesophageal reflux disease) Marylou's thyroiditis Hx of adenomatous colonic polyps Hypokalemia (11/07/16) Chronic, possible 2' IBS/Diarrhea. Continued despite GI improvements, albeit improved. Trial Eplerenone, to be followed by HCTZ decrease. 10/09/18 Intermittent improvement, but unsteady and unpredictable .. Monisha seems unable to maintain her own K levels WNL w/o bolus/infusions at this time. Unable to tolerate K-sparing diuretics. Cont to research, evaluate, consult .. 09/2018, mian Impaired fasting glucose (02/11/14) A1C 6.1% 12/2012 .. A1C 5.8 07/04/18. Irritable bowel syndrome diarrhea predominant Preeclampsia Rectal hemorrhage (03/02/15) Reflux esophagitis Surgical History section x3 Colonoscopy - MAC (03/16/14) w/ bx 2016-serrated adenomatous polyp EGD - MAC 2015 Endometrial Ablation 2007 2012 H/O colonoscopy (12/05/17) History of esophagogastroduodenoscopy (EGD) (12/05/17) History of Nadia-en-Y gastric bypass (~11/2019) Tonsillectomy Family History Mother Pulmonary hypertension Heart disease valve replacement Father Prostate cancer Essential hypertension Parkinsons Sister Uterine cancer Brother No problems noted. Other Colon cancer Social History Smoking/Tobacco Use Status: Never Smoking risk assessment performed?: Yes Alcohol Intake: current Alcohol Intake frequency: holidays/special occasions only Alcohol type: wine Drug use: Never Substance use type: does not use Adopted: No Caregiver/Support person: No Household members: spouse and other Details: Partner - Jayne, children Housing: house Number of Children: 4 number of grandchildren: 0 Communication Needs: Corrective Lenses Education Level: college current occupation: Daily today tested negative on this on the testing day negative negative di Pets and animals: Yes Pets and animals: cat(s) and dog(s) Sexually active: Yes Do you think of yourself as: lesbian/peña/homosexual Current gender identity: female What is your relationship status?: living with partner Panel score (0-1 are the most socially isolated patients): 1 What type of physical activity do you participate in: walking Duration: 15-30 minutes/day Frequency: 3-4 times per week Seatbelt use: always Working smoke detector in home: Yes Fire extinguisher in home: Yes Carbon monox detector in home: Yes Firearms in home: No Do you feel safe at home: Yes Do you feel safe in your relationship?: Yes Female Reproductive History Menstrual control method: permanent sterilization History History 3 Para 4 Hx # Term Pregnancies Multiple births 1 Hx # Pregnancies Ectopic pregnancies AB induced Hx Number of Living Children AB spontaneous Exam Narrative Exam Narrative: 1.Const: Well-nourished, Well-developed, appearing stated age 2.Eyes: PERRL, no conjunctival injection, and symmetrical lids. 3.ENT: Atraumatic external nose and ears. Moist MM. Neck: Symmetric, trachea midline, No thyromegaly. 4.CVS: +S1/S2, No murmurs or gallops. Peripheral pulses 2+ and equal in all extremities. Brisk capillary refill in all extremities. 5.RESP: Unlabored respiratory effort. Clear to auscultation bilaterally. No wheezes rales or rhonchi 6.GI: Soft, Nontender/Nondistended, No hepatosplenomegaly. No guarding or rebound. 7.MSK: Normocephalic/Atraumatic, Extremities w/o deformity or ttp No cyanosis or clubbing, Normal movement of all extremities 8.Skin: Warm, Dry. No rashes or lesions. 9.Neuro: baker pie II-XII grossly intact. Sensation grossly intact, no focal neurologic deficits. 10.Psych: (AAO) x3. Appropriate mood and affect Course Vital Signs Vital signs: Vital Signs Temperature 36.6 C 02/13/22 01:00 Pulse 95 H 02/13/22 01:00 Respiratory Rate 17 02/13/22 01:00 Blood Pressure 139/88 02/13/22 01:00 Pulse Oximetry 99 02/13/22 01:00 Temperature 36.6 C 02/13/22 01:00 Temperature Source Temporal Artery Scan 02/13/22 01:00 Pulse 95 H 02/13/22 01:00 Respiratory Rate 17 02/13/22 01:00 Respiratory Effort 02/13/22 01:00 Blood Pressure 139/88 02/13/22 01:00 Blood Pressure Position Supine 02/13/22 01:00 Pulse Oximetry 99 02/13/22 01:00 Oxygen Delivery Method Room Air 02/13/22 01:00 Oxygen Flow Rate 0 02/13/22 01:00
[2022-02-13] MEDS: Dextrose 50%-Water 25 GM/50 ML SYR IVP (01:23)
[2022-02-13 01:24] LABS: Abs Immature Grans 0.03 10^3/uL (0.0-0.06); Absolute Basophil Count 0.06 10^3/uL (0.0-0.2); Absolute Eosinophil Count 0.26 10^3/uL (0.0-0.7); Absolute Monocyte Count 0.91 10^3/uL (0.1-0.8); Absolute Neutrophil Count 7.33 10^3/uL (1.2-6.7); Basophils % 0.5; Eosinophils % 2.3; HCT 39.4 % (36.0-46.0); HGB 13.6 g/dL (11.2-15.7); Immature Grans % 0.3; Lymphocytes % 24.8; MCH 29.1 pg (27.0-33.0); MCHC 34.5 % (32.0-36.0); MCV 84 fL (80-95); MPV 9.4 fL (8.0-11.0); Neutrophils % 64.1; Platelet Count 407 10^3/uL (130-400); RBC 4.68 10^6/uL (3.93-5.22); RDW 13.2 % (11.7-14.6); RDW-SD 40.7 fL; WBC 11.43 10^3/uL (4.4-10.8)
[2022-02-13 01:26] LABS: Absolute Lymphocyte Count 2.83 10^3/uL (1.2-3.4)
[2022-02-13 01:44] LABS: ALT 28 U/L (14-59); AST 23 U/L (15-37); Albumin 3.7 g/dL (3.4-5.0); Alkaline Phosphatase 66 U/L (46-116); Anion Gap -0.2 mmol/L (3-11); BUN 21 mg/dL (7-18); Bilirubin, Total 0.3 mg/dL (0.2-1.0); CO2 31.2 mmol/L (21.0-32.0); CREATININE 0.9 mg/dL (0.55-1.02); Calcium 8.7 mg/dL (8.5-10.1); Chloride 101 mmol/L (98-107); Estimated GFR 76.92 (mL/min/1.73m2); Glucose 107 mg/dL (74-106); Sodium 132 mmol/L (136-145); Total Protein 7.5 g/dL (6.4-8.2)
[2022-02-13 01:45] LABS: Potassium 2.9 mmol/L (3.5-5.1)
[2022-02-13] MEDS: Potassium Chloride 20 MEQ TABCR 40 MEQ PO (02:01)
[2022-02-13] MEDS: POTASSIUM CHLORIDE 20 MEQ/100 ML BAG 50 MEQ IVPB (02:01)
[2022-02-13] MEDS: DEXTROSE 5%-LACTATED RINGERS 1,000 ML 100 ML IV (02:50)
--- NOTE | 2022-02-13 06:17 | HPE_ITS ---
Date of service: 02/13/22 Time of Service: 06:17 Assessment and Plan Assessment and plan (1) Hypoglycemia: Status: Acute Assessment and plan: Hypoglycemia, satisfies Whipple's triad. Will initiate workup by awaiting vanessa hypoglycemia with fasting and check insulin and C-peptide levels. Further work up based on results. Usual meds as is , along with continued potassium monitoring and replenishment. History of Present Illness History of Present Illness Chief Complaint: hypoglycemia Narrative: 51 female with h/o obesity, s/p gastric bypass 2 years [employer]. Reports approxi mately one year of episodes of frequent hypoglycemia -- becomes symptomatic, checks sugar (which is low) and then resolves with eating. Has had no medical workup yet. Over this past week has had increasingly frequent episodes which have become more difficult to manage and presents to ER. In ER initial glucose 107. Over course of stay fingersticks have continued to drift down despite D50 and D5 Ringers. I was asked to evaluate for admission. Patient states she is not on insulin. Prior to surgery she had diet controlled diabetes but was not on meds. Note also she was found to be hypokalemic (2.9) and has since received oral and IV replenishment. She is on diuretics and this has been an ongoing problem. Review of Systems Narrative: per HPI PFSH All Active Problems (Updated 02/13/22 @ 06:27 by Praful Pink MD) Hypoglycemia (Acute) Heel lesion (Acute) Right heel, cracked skin .. inner foot tenderness .. out of proportion tenderness .. possible assoc with fever? (improved with soaking, but not closing) Fever (Acute) Over 1 week; T 103/102/99; Neg COVID; Awaiting Flu Status post bariatric surgery (Acute) Successful weight loss, but dangerous, symptomatic HYPOglycemia [neg dumping syndrome per [facility]] SARS-CoV-2 positive (Acute ~10/26/21) Pelvic pain (Acute) Dysmenorrhea (Acute) O'Brien exposure (Acute) Dtr (+) .. Sore Throat, lab [ ] Skin lesion (Acute) Mild wound, 2' probable abd intertrigo. Dumping syndrome (Acute 04/12/21) NOT per Bariatric Team.. Dx per [facility] Endo .. [facility] Bariatric Team re-eval as NEG for dumping syndrome, 05/2021 Scab of knee (Acute) fell last week, rough/dry scab, but irritated .. Trial debride @ home, consider surgtery if tender. Facial twitching (Acute) Nodule of left lung (Acute) 3mm, incidental finding, LLL (12/2020 CT). [ ] 6 mo FU.. Paresthesias (Acute) Hypotension (Acute) post gastric bypass ... lowering ACEi, BB, CCB. DIuretics in place 2' LE edema (albeit improved). Depressive disorder (Chronic 05/23/11) Wellbutrin 2012, discon 12/2012, restart 05/2013 Hx of Marylou thyroiditis (Acute) Complicated grieving (Acute) Her basically healthy mo due to COVID19 infection. She was intubated within days of becoming sick, sending out a cheerful text 4 days beforehand! Monisha has cancelled the trip just before flights, etc were shut down; she was originally worried for her fa 2' health issues and dementia. Close-knit family; inability for gathering for .. video/webexed with family in [facility] (mo in [place]). Imbalance (Acute) Cervical radiculopathy (Acute) Hematuria (Acute) Other seborrheic keratosis (Acute) Hypomagnesemia (Acute) Leg edema (Acute) Flash pulmonary edema (Acute) Lymphedema (Chronic) referring to PT for evaluation and recommendations.. Bunion (Acute) 12/24/18-nelson Yarbrough DPM Sustained VT (ventricular tachycardia) (Acute) during hypokalemia episode Abnormal serum creatinine level (Acute 07/2018) Serious Creatinine elevation, with resolution between episodes of dehydration .. Fatty liver (Acute) 10/02/18 Dr Schroeder/[place] Angioedema (Acute) 10/02/18 Dr Schroeder/[place] Flushing (Acute) 10/02/18 Dr Schroeder/[place] Out of work (Acute 08/21/18) Recommend continuation of reduced hours due to continued electrolyte imbalances, fatigue and metabolic disorder. Unclear etiology makes it difficult to create a clear treatment plan, which in turn, makes routine and FT work difficult to manage. Revised [facility] Ppwk (06/2019). Solid, intermittent improvements, but unpredictable. 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 10/30/18, ik. I support time off from work due to continued electrolyte imbalances which cannot be explained. Re-referring to specialists @ [facility] as well as [facility]. Elevated plasma metanephrines (Acute 08/2018) Ordered by Endo, CT (Abd) [ ] ... follow up with Endo week of October 07. 08/2018, ik Kidney stone (Acute 02/27/12) Migraine headache with aura (Chronic) DR. VALDEZ 08/29/11 Topamax works Vertigo and/or pain Uterine leiomyoma (Chronic 11/02/15) On pelvic ultrasound uterus enlarged approximate 13 cm. 08/04/2021 pelvic pain radiating from back. Serrated adenoma of colon (Acute 07/07/15) Dr. Contreras, sessile colonic polyp, inflammatory polyp Sensorineural hearing loss, bilateral (Chronic 11/01/17) Restless leg (Acute 03/31/15) Some relief with iron infusion (albeit reaction to infusion), 05/2018. 06/16/19 f/u at sleep clinic Reflux esophagitis (Acute 07/07/15) Dr. Contreras gastritis Rectal bleeding (Acute 03/02/15) Episodic - Was diagnosed with AVM's Premenstrual dysphoric disorder (Acute 11/10/14) Gabriel Henderson MD Pyrites Reg. Positive TG (antinuclear antibody) (Acute 06/07/15) Mgrn w aura w intrc mgrn (Acute 09/05/11) DR. VALDEZ 08/29/11 Topamax works Vertigo and/or pain Mgrn wo aura wo ntrc mgr (Acute 09/05/11) DR. VALDEZ 08/29/11 Topamax works Vertigo and/or pain Incomplete tear of left rotator cuff (Acute 05/31/16) Diarrhea (Acute 10/29/15) Chronic, secretory .. s/p multiple [place], Bx. Trial cholestyramine, 10/2018, ik planned. Alopecia areata (Acute 05/23/11) Dx'ed 1990s Hair prosthesis Medical History Alopecia Anemia Class 3 severe obesity due to excess calories with body mass index (BMI) of 40.0 to 44.9 in adult 07/31/19 [facility] Dehydration (~05/22/19) Several episodes now .. She can almost gauge her K levels based on mm weakne ss. [ ] BMP [ ] IVF-KCl Bolus-K have helped with hypokalemia in between bouts of diarrhea/dehydration when IVF not needed. 09/2018, mian Depression Diabetes mellitus type 2 in obese Improved s/p bariatric surgery and wt loss BUT HYPOglycemia Essential hypertension (12/05/12) Elevated BPs, especially DBP. Hx high BP since of twins (20yrs), noted in Nephro note (2017). HCTZ used x years for HTN & Edema. Spirono not tolerated (Hives/Flush). Trial Eplerenone, 10/09/18, ik Unable to tolerate eplerenone, angioedema-like reactions to K-sparing diuretics.. 09/2018, mian GERD (gastroesophageal reflux disease) Marylou's thyroiditis Hx of adenomatous colonic polyps Hypokalemia (11/07/16) Chronic, possible 2' IBS/Diarrhea. Continued despite GI improvements, albeit improved. Trial Eplerenone, to be followed by HCTZ decrease. 10/09/18 Intermittent improvement, but unsteady and unpredictable .. Monisha seems unable to maintain her own K levels WNL w/o bolus/infusions at this time. Unable to tolerate K-sparing diuretics. Cont to research, evaluate, consult .. 09/2018, mian Impaired fasting glucose (02/11/14) A1C 6.1% 12/2012 .. A1C 5.8 07/04/18. Irritable bowel syndrome diarrhea predominant Preeclampsia Rectal hemorrhage (03/02/15) Reflux esophagitis Surgical History section x3 Colonoscopy - MAC (03/16/14) w/ bx 2015-serrated adenomatous polyp EGD - MAC 2016 Endometrial Ablation 2007 2012 H/O colonoscopy (12/05/17) History of esophagogastroduodenoscopy (EGD) (12/05/17) History of Nadia-en-Y gastric bypass (~11/2019) Tonsillectomy Family History Mother Pulmonary hypertension Heart disease valve replacement Father Prostate cancer Essential hypertension Parkinsons Sister Uterine cancer Brother No problems noted. Other Colon cancer Social History Smoking/Tobacco Use Status: Never Smoking risk assessment performed?: Yes Alcohol Intake: current Alcohol Intake frequency: holidays/special occasions only Alcohol type: wine Drug use: Never Substance use type: does not use Adopted: No Caregiver/Support person: No Household members: spouse and other Details: Partner - Jayne, children Housing: house Number of Children: 4 number of grandchildren: 0 Communication Needs: Corrective Lenses Education Level: college current occupation: Daily today tested negative on this on the testing day negative negative di Pets and animals: Yes Pets and animals: cat(s) and dog(s) Sexually active: Yes Do you think of yourself as: lesbian/peña/homosexual Current gender identity: female What is your relationship status?: living with partner Panel score (0-1 are the most socially isolated patients): 1 What type of physical activity do you participate in: walking Duration: 15-30 minutes/day Frequency: 3-4 times per week Seatbelt use: always Working smoke detector in home: Yes Fire extinguisher in home: Yes Carbon monox detector in home: Yes Firearms in home: No Do you feel safe at home: Yes Do you feel safe in your relationship?: Yes Female Reproductive History Menstrual control method: permanent sterilization History History 3 Para 4 Hx # Term Pregnancies Multiple births 1 Hx # Pregnancies Ectopic pregnancies AB induced Hx Number of Living Children AB spontaneous Meds Allergies and Home Medications Allergies Allergy/AdvReac Type Severity Reaction Status Date / Time atropine Allergy Intermediate HIVES, Verified 02/13/22 01:10 SWOLLEN spironolactone Allergy Intermediate Skin Rash Verified 02/13/22 01:10 eplerenone AdvReac Intermediate swelling; Verified 02/13/22 01:10 SOB iron [From Venofer] AdvReac Intermediate Swelling/Ed Verified 02/13/22 01:10 brandon Home Medications Medication Instructions Recorded Confirmed Type Hair Prosthesis #1 ea 05/19/15 02/13/22 Clinic bariatric fusion chewable complete 2 100 ml PO DAILY 12/28/20 02/13/22 History Scalp Hair Prosthesis #1 ea 02/03/21 02/13/22 Rx blood sugar diagnostic (Blood #100 ea 04/10/21 02/13/22 Rx Glucose Test strips) glucometer #1 ea 04/21/21 02/13/22 Rx blood sugar diagnostic (Blood #100 ea 04/26/21 02/13/22 Rx Glucose Test strips) lancets (Comfort Lancets) #100 ea 04/26/21 02/13/22 Rx pramipexole 0.25 mg tablet 0.25 mg PO BID #180 tabs 04/27/21 02/13/22 Rx gabapentin 800 mg tablet 800 mg PO BID #180 tabs 06/06/21 02/13/22 Rx blood-glucose sensor (Dexcom G6 #3 ea 06/17/21 02/13/22 Rx Sensor device) blood-glucose transmitter (Dexcom #1 ea 06/17/21 02/13/22 Rx G6 Transmitter device) hydrochlorothiazide 25 mg tablet 25 mg PO BID PRN edema #180 tabs 07/21/21 02/13/22 Rx glucagon 3 mg/actuation nasal spray 3 mg intranasal ONCE severe 07/22/21 02/13/22 Rx hypoglycemia #1 ea non-adherent bandage 3 X 4 #10 ea 07/23/21 02/13/22 Rx (Non-Stick Pad) amiloride 5 mg tablet 5 mg PO BID #180 tabs 08/25/21 02/13/22 Rx bupropion HCl 300 mg 24 hr tablet, 300 mg PO DAILY #90 tabs 08/25/21 02/13/22 Rx extended release (Wellbutrin XL) omeprazole 40 mg capsule,delayed 40 mg PO DAILY #90 tabs 08/25/21 02/13/22 Rx release blood-glucose meter,continuous #1 ea 09/10/21 02/13/22 Rx (Dexcom G6 Animal Eviscerator misc) venlafaxine 75 mg tablet 75 mg PO BID #180 tabs 11/30/21 02/13/22 Rx potassium chloride 20 mEq 20 meq PO PRN PRN hypokalemia 02/08/22 02/13/22 History tablet,extended release triamcinolone acetonide 0.5 % 1 applic topical PRN PRN 02/08/22 02/13/22 History topical ointment Exam Narrative Exam Narrative: 142/98, 81, 36.6, 14, 99% RA. HEENT atraumatic; neck supple; lungs clear; heart RRR; abdomen soft and NT; extremities w/o edema; neuro Ox3, lucid, moves all 4s Results Labs Result diagrams: 02/13/22 01:08 02/13/22 01:08 Labs: Laboratory Results - last 24 hr 02/13/22 02/13/22 02/13/22 01:08 01:08 01:08 WBC 11.43 H RBC 4.68 Hgb 13.6 Hct 39.4 MCV 84 MCH 29.1 MCHC 34.5 RDW 13.2 Plt Count 407 H MPV 9.4 Immature Gran % 0.3 Neutrophils % 64.1 Lymphocytes % 24.8 Monocytes % 8.0 Eosinophils % 2.3 Basophils % 0.5 Nucleated RBC % 0.0 Absolute Neutrophils 7.33 H Absolute Lymphocytes 2.83 Absolute Monocytes 0.91 H Absolute Eosinophils 0.26 Absolute Basophils 0.06 Sodium 132 L Potassium 2.9 L Chloride 101 Carbon Dioxide 31.2 Anion Gap -0.2 L BUN 21 H Creatinine 0.9 Est GFR (CKD-EPI 2020) 76.92 Glucose 107 H Calcium 8.7 Magnesium 2.0 Total Bilirubin 0.3 AST 23 ALT 28 Alkaline Phosphatase 66 Total Protein 7.5 Albumin 3.7 Last Vital Signs Temp 36.6 C 02/13/22 01:00 Pulse 78 02/13/22 05:00 Resp 14 02/13/22 05:10 BP 142/98 H 02/13/22 05:00 Pulse Ox 99 02/13/22 01:00
[2022-02-13 07:57] LABS: Source Nasal/Nares
[2022-02-13 08:33] LABS: COVID-19 PCR Negative (Negative)
[2022-02-13] MEDS: Gabapentin 800 MG TAB PO ×2 (09:43→20:08)
[2022-02-13] MEDS: Venlafaxine 75 MG TAB PO ×2 (09:43→20:09)
[2022-02-13] MEDS: aMILoride HCL 5 MG TAB PO ×2 (09:43→20:09)
[2022-02-13] MEDS: Omeprazole 20 MG CAPCR 40 MG PO (09:43)
[2022-02-13] MEDS: Normal Saline Flush 10 ML SYR (09:44)
[2022-02-13] MEDS: Pramipexole 0.25 MG TAB PO ×2 (09:44→20:08)
[2022-02-13 11:59] LABS: Anion Gap 6.9 mmol/L (3-11); BUN 20 mg/dL (7-18); CO2 30.1 mmol/L (21.0-32.0); CREATININE 0.9 mg/dL (0.55-1.02); Calcium 8.8 mg/dL (8.5-10.1); Chloride 104 mmol/L (98-107); Estimated GFR 76.92 (mL/min/1.73m2); Glucose 99 mg/dL (74-106); Potassium 3.4 mmol/L (3.5-5.1); Sodium 141 mmol/L (136-145)
--- NOTE | 2022-02-13 19:07 | PGE_ITS ---
Date of Service Date of service: 02/13/22 Time of Service: 19:07 Subjective Subjective Interval history since last seen: Patient seen in a brief follow up. Since being permitted a diet today (where we reinforced the need for high prote in and lower carbs), she has not had true hypoglycemia, though she does note being symptomatic with BGs in the 80s. She has not required D50 or even D5 containing fluids today. Monisha also states that she has not tried exercising today and exercise really drops her blood sugar too. We will continue to monitor her overnight and will contact endocrinology tomorrow with the data for further recommendations. Objective Last Vital Signs Temp 36.8 C 02/13/22 15:02 Pulse 81 02/13/22 15:02 Resp 16 02/13/22 15:02 BP 137/90 02/13/22 15:02 Pulse Ox 99 02/13/22 15:02 Laboratory Results - last 24 hr 02/13/22 02/13/22 02/13/22 01:08 01:08 01:08 WBC 11.43 H RBC 4.68 Hgb 13.6 Hct 39.4 MCV 84 MCH 29.1 MCHC 34.5 RDW 13.2 Plt Count 407 H MPV 9.4 Immature Gran % 0.3 Neutrophils % 64.1 Lymphocytes % 24.8 Monocytes % 8.0 Eosinophils % 2.3 Basophils % 0.5 Nucleated RBC % 0.0 Absolute Neutrophils 7.33 H Absolute Lymphocytes 2.83 Absolute Monocytes 0.91 H Absolute Eosinophils 0.26 Absolute Basophils 0.06 Sodium 132 L Potassium 2.9 L Chloride 101 Carbon Dioxide 31.2 Anion Gap -0.2 L BUN 21 H Creatinine 0.9 Est GFR (CKD-EPI 2020) 76.92 Glucose 107 H POC Glucose Calcium 8.7 Magnesium 2.0 Total Bilirubin 0.3 AST 23 ALT 28 Alkaline Phosphatase 66 Total Protein 7.5 Albumin 3.7 COVID-19 Source SARS-CoV-2 (PCR) 02/13/22 02/13/22 02/13/22 01:11 02:11 03:11 WBC RBC Hgb Hct MCV MCH MCHC RDW Plt Count MPV Immature Gran % Neutrophils % Lymphocytes % Monocytes % Eosinophils % Basophils % Nucleated RBC % Absolute Neutrophils Absolute Lymphocytes Absolute Monocytes Absolute Eosinophils Absolute Basophils Sodium Potassium Chloride Carbon Dioxide Anion Gap BUN Creatinine Est GFR (CKD-EPI 2021) Glucose POC Glucose Cancelled Cancelled Cancelled Calcium Magnesium Total Bilirubin AST ALT Alkaline Phosphatase Total Protein Albumin COVID-19 Source SARS-CoV-2 (PCR) 02/13/22 02/13/22 02/13/22 04:11 05:11 06:11 WBC RBC Hgb Hct MCV MCH MCHC RDW Plt Count MPV Immature Gran % Neutrophils % Lymphocytes % Monocytes % Eosinophils % Basophils % Nucleated RBC % Absolute Neutrophils Absolute Lymphocytes Absolute Monocytes Absolute Eosinophils Absolute Basophils Sodium Potassium Chloride Carbon Dioxide Anion Gap BUN Creatinine Est GFR (CKD-EPI 2020) Glucose POC Glucose Cancelled Cancelled Cancelled Calcium Magnesium Total Bilirubin AST ALT Alkaline Phosphatase Total Protein Albumin COVID-19 Source SARS-CoV-2 (PCR) 02/13/22 02/13/22 02/13/22 07:11 07:50 08:11 WBC RBC Hgb Hct MCV MCH MCHC RDW Plt Count MPV Immature Gran % Neutrophils % Lymphocytes % Monocytes % Eosinophils % Basophils % Nucleated RBC % Absolute Neutrophils Absolute Lymphocytes Absolute Monocytes Absolute Eosinophils Absolute Basophils Sodium Potassium Chloride Carbon Dioxide Anion Gap BUN Creatinine Est GFR (CKD-EPI 2020) Glucose POC Glucose Cancelled Cancelled Calcium Magnesium Total Bilirubin AST ALT Alkaline Phosphatase Total Protein Albumin COVID-19 Source Nasal/Nares SARS-CoV-2 (PCR) Negative 02/13/22 02/13/22 02/13/22 09:11 10:11 11:11 WBC RBC Hgb Hct MCV MCH MCHC RDW Plt Count MPV Immature Gran % Neutrophils % Lymphocytes % Monocytes % Eosinophils % Basophils % Nucleated RBC % Absolute Neutrophils Absolute Lymphocytes Absolute Monocytes Absolute Eosinophils Absolute Basophils Sodium Potassium Chloride Carbon Dioxide Anion Gap BUN Creatinine Est GFR (CKD-EPI 2020) Glucose POC Glucose Cancelled Cancelled Cancelled Calcium Magnesium Total Bilirubin AST ALT Alkaline Phosphatase Total Protein Albumin COVID-19 Source SARS-CoV-2 (PCR) 02/13/22 02/13/22 02/13/22 11:40 12:11 13:11 WBC RBC Hgb Hct MCV MCH MCHC RDW Plt Count MPV Immature Gran % Neutrophils % Lymphocytes % Monocytes % Eosinophils % Basophils % Nucleated RBC % Absolute Neutrophils Absolute Lymphocytes Absolute Monocytes Absolute Eosinophils Absolute Basophils Sodium 141 Potassium 3.4 L Chloride 104 Carbon Dioxide 30.1 Anion Gap 6.9 BUN 20 H Creatinine 0.9 Est GFR (CKD-EPI 2020) 76.92 Glucose 99 POC Glucose Cancelled Cancelled Calcium 8.8 Magnesium Total Bilirubin AST ALT Alkaline Phosphatase Total Protein Albumin COVID-19 Source SARS-CoV-2 (PCR) 02/13/22 02/13/22 02/13/22 14:11 15:11 16:11 WBC RBC Hgb Hct MCV MCH MCHC RDW Plt Count MPV Immature Gran % Neutrophils % Lymphocytes % Monocytes % Eosinophils % Basophils % Nucleated RBC % Absolute Neutrophils Absolute Lymphocytes Absolute Monocytes Absolute Eosinophils Absolute Basophils Sodium Potassium Chloride Carbon Dioxide Anion Gap BUN Creatinine Est GFR (CKD-EPI 2020) Glucose POC Glucose Cancelled Cancelled Cancelled Calcium Magnesium Total Bilirubin AST ALT Alkaline Phosphatase Total Protein Albumin COVID-19 Source SARS-CoV-2 (PCR) 02/13/22 02/13/22 02/13/22 17:11 18:11 19:11 WBC RBC Hgb Hct MCV MCH MCHC RDW Plt Count MPV Immature Gran % Neutrophils % Lymphocytes % Monocytes % Eosinophils % Basophils % Nucleated RBC % Absolute Neutrophils Absolute Lymphocytes Absolute Monocytes Absolute Eosinophils Absolute Basophils Sodium Potassium Chloride Carbon Dioxide Anion Gap BUN Creatinine Est GFR (CKD-EPI 2020) Glucose POC Glucose Cancelled Cancelled Cancelled Calcium Magnesium Total Bilirubin AST ALT Alkaline Phosphatase Total Protein Albumin COVID-19 Source SARS-CoV-2 (PCR) 02/13/22 02/13/22 02/13/22 20:11 21:11 22:11 WBC RBC Hgb Hct MCV MCH MCHC RDW Plt Count MPV Immature Gran % Neutrophils % Lymphocytes % Monocytes % Eosinophils % Basophils % Nucleated RBC % Absolute Neutrophils Absolute Lymphocytes Absolute Monocytes Absolute Eosinophils Absolute Basophils Sodium Potassium Chloride Carbon Dioxide Anion Gap BUN Creatinine Est GFR (CKD-EPI 2020) Glucose POC Glucose Cancelled Cancelled Cancelled Calcium Magnesium Total Bilirubin AST ALT Alkaline Phosphatase Total Protein Albumin COVID-19 Source SARS-CoV-2 (PCR) 02/13/22 23:11 WBC RBC Hgb Hct MCV MCH MCHC RDW Plt Count MPV Immature Gran % Neutrophils % Lymphocytes % Monocytes % Eosinophils % Basophils % Nucleated RBC % Absolute Neutrophils Absolute Lymphocytes Absolute Monocytes Absolute Eosinophils Absolute Basophils Sodium Potassium Chloride Carbon Dioxide Anion Gap BUN Creatinine Est GFR (CKD-EPI 2020) Glucose POC Glucose Cancelled Calcium Magnesium Total Bilirubin AST ALT Alkaline Phosphatase Total Protein Albumin COVID-19 Source SARS-CoV-2 (PCR)
[2022-02-13] MEDS: Potassium Chloride 20 MEQ TABCR PO (20:08)
[2022-02-14 04:33] VITALS: BP 135/94; PULSE 71; RESP 16; TEMP 37; O2SAT 99
[2022-02-14 07:13] LABS: Anion Gap 5.8 mmol/L (3-11); BUN 19 mg/dL (7-18); CO2 31.2 mmol/L (21.0-32.0); CREATININE 0.9 mg/dL (0.55-1.02); Calcium 8.7 mg/dL (8.5-10.1); Chloride 105 mmol/L (98-107); Estimated GFR 76.92 (mL/min/1.73m2); Glucose 100 mg/dL (74-106); Magnesium 2.1 mg/dL (1.8-2.4); Potassium 3.4 mmol/L (3.5-5.1); Sodium 142 mmol/L (136-145)
[2022-02-14] MEDS: Omeprazole 20 MG CAPCR 40 MG PO (07:37)
[2022-02-14] MEDS: buPROPion-XL 150 MG TABCR 300 MG PO (07:37)
[2022-02-14] MEDS: Pramipexole 0.25 MG TAB PO ×2 (07:38→19:46)
[2022-02-14] MEDS: Gabapentin 800 MG TAB PO ×2 (07:38→19:43)
[2022-02-14] MEDS: Potassium Chloride 20 MEQ TABCR PO ×2 (07:38→19:43)
[2022-02-14] MEDS: aMILoride HCL 5 MG TAB PO ×2 (07:38→19:46)
[2022-02-14] MEDS: Multivitamin TAB 1 TAB PO (07:38)
[2022-02-14] MEDS: Venlafaxine 75 MG TAB PO ×2 (07:38→19:44)
[2022-02-14 07:41] VITALS: BP 128/89; PULSE 77; RESP 16; TEMP 36; O2SAT 100
--- NOTE | 2022-02-14 10:50 | PDOC.CMIN ---
- If Service Date Differs Date of service: 02/14/22 Time of Service: 10:50 Care Management Initial Assess REASON FOR HOSPITALIZATION:: Hypoglycemia PAST MEDICAL HISTORY/PAST SURGICAL HISTORY:: All Active Problems (Updated 02/08/22 @ 16:08 by Misty Marmolejo NP). Discharge planning issues (Acute). Heel lesion (Acute). Right heel, cracked skin .. inner foot tenderness .. out of proportion tenderness .. possible assoc with fever? (improved with soaking, but not closing). Fever (Acute). Over 1 week; T 103/102/99; Neg COVID; Awaiting Flu. Status post bariatric surgery (Acute). Successful weight loss, but dangerous, symptomatic HYPOglycemia [neg dumping syndrome per [facility] Team]. Hypoglycemia (Acute 04/12/21). [facility]. SARS-CoV-2 positive (Acute ~10/26/21). Pelvic pain (Acute). Dysmenorrhea (Acute). [place] exposure (Acute). Dtr (+) .. Sore Throat, lab [ ]. Skin lesion (Acute). Mild wound, 2' probable abd intertrigo. Dumping syndrome (Acute 04/12/21). NOT per Bariatric Team.. Dx per [facility] .. [facility] Bariatric Team re-eval as NEG for dumping syndrome, 05/2021. Scab of knee (Acute). fell last week, rough/dry scab, but irritated .. Trial debride @ home, consider surgtery if tender. Facial twitching (Acute). Nodule of left lung (Acute). 3mm, incidental finding, LLL (12/2020 CT). [ ] 6 mo FU.. Paresthesias (Acute). Hypotension (Acute). post gastric bypass ... lowering ACEi, BB, CCB. DIuretics in place 2' LE edema (albeit improved). Depressive disorder (Chronic 05/23/11). Wellbutrin 2012, discon 12/2012, restart 05/2013. Hx of Marylou thyroiditis (Acute). Complicated grieving (Acute). Her basically healthy mo due to COVID19 infection. She was intubated within days of becoming sick, sending out a cheerful text 4 days beforehand! Monisha has cancelled the trip just before flights, etc were shut down; she was originally worried for her fa 2' health issues and dementia. Close-knit family; inability for gathering for .. video/webexed with family in [place] ([place] in [place]). Imbalance (Acute). Cervical radiculopathy (Acute). Hematuria (Acute). Other seborrheic keratosis (Acute). Hypomagnesemia (Acute). Leg edema (Acute). Hypokalemia (Acute 11/07/16). Chronic, possible 2' IBS/Diarrhea. Continued despite GI improvements, albeit improved. Trial Eplerenone, to be followed by HCTZ decrease. 10/09/18 Intermittent improvement, but unsteady and unpredictable .. Monisha seems unable to maintain her own K levels WNL w/o bolus/infusions at this time. Unable to tolerate K-sparing diuretics. Cont to research, evaluate, consult .. 09/2018, ik. Flash pulmonary edema (Acute). Lymphedema (Chronic). referring to PT for evaluation and recommendations.. Bunion (Acute). 12/24/18-nelson Yarbrough DPM. Sustained VT (ventricular tachycardia) (Acute). during hypokalemia episode. Abnormal serum creatinine level (Acute 07/2018). Serious Creatinine elevation, with resolution between episodes of dehydration .. Fatty liver (Acute). 10/02/18 Dr Schroeder/[facility]. Angioedema (Acute). 10/02/18 Dr Schoreder/[facility]. Flushing (Acute). 10/02/18 Dr Schroeder/[facility]. Out of work (Acute 08/21/18). Recommend continuation of reduced hours due to continued electrolyte imbalances, fatigue and metabolic disorder. Unclear etiology makes it difficult to create a clear treatment plan, which in turn, makes routine and FT work difficult to manage. Revised [employer]UM Ppwk (06/2019). Solid, intermittent improvements, but unpredictable. 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 10/30/18, mian. I support time off from work due to continued electrolyte imbalances which cannot be explained. Re-referring to specialists @ [facility] as well as [facility]. Elevated plasma metanephrines (Acute 08/2018). Ordered by Endo, CT (Abd) [ ] ... follow up with Endo week of October 07. 08/2018, ik. Kidney stone (Acute 02/27/12). Migraine headache with aura (Chronic). DR. VALDEZ 08/29/11. Topamax works. Vertigo and/or pain. Uterine leiomyoma (Chronic 11/02/15). On pelvic ultrasound uterus enlarged approximate 13 cm. 08/04/2021 pelvic pain radiating from back. Serrated adenoma of colon (Acute 07/07/15). Dr. Contreras, sessile colonic polyp, inflammatory polyp. Sensorineural hearing loss, bilateral (Chronic 11/01/17). Restless leg (Acute 03/31/15). Some relief with iron infusion (albeit reaction to infusion), 05/2018. 06/16/19 f/u at sleep clinic. Reflux esophagitis (Acute 07/07/15). Dr. Contreras gastritis. Rectal bleeding (Acute 03/02/15). Episodic - Was diagnosed with AVM's. Premenstrual dysphoric disorder (Acute 11/10/14). Gabriel Henderson MD [place] [facility]. Positive TG (antinuclear antibody) (Acute 06/07/15). [facility] (Acute 09/05/11). DR. VALDEZ 08/29/11. Topamax works. Vertigo and/or pain. Mgrn wo aura wo ntrc mgr (Acute 09/05/11). DR. VALDEZ 08/29/11. Topamax works. Vertigo and/or pain. Incomplete tear of left rotator cuff (Acute 05/31/16). Essential hypertension (Acute 12/05/12). Elevated BPs, especially DBP. Hx high BP since of twins (20yrs), noted in Nephro note (2017). HCTZ used x years for HTN & Edema. Spirono not tolerated (Hives/Flush). Trial Eplerenone, 10/09/18, ik Unable to tolerate eplerenone, angioedema-like reactions to K-sparing diuretics.. 09/2018, ik. Diarrhea (Acute 10/29/15). Chronic, secretory .. s/p multiple [place], Bx. Trial cholestyramine, 10/2018, ik planned. Alopecia areata (Acute 05/23/11). Dx'ed 1990s. Hair prosthesis. Medical History (Updated 02/08/22 @ 16:08 by Misty Marmolejo NP). Alopecia. Anemia. Class 3 severe obesity due to excess calories with body mass index (BMI) of 40.0 to 44.9 in adult. 07/31/19 [facility]. Dehydration (~08/21/18). Several episodes now .. She can almost gauge her K levels based on mm weakness. [ ] BMP [ ] IVF-KCl Bolus-K have helped with hypokalemia in between bouts of diarrhea/dehydration when IVF not needed. 09/2018, ik. Depression. Diabetes mellitus type 2 in obese. Improved s/p bariatric surgery and wt loss BUT HYPOglycemia. GERD (gastroesophageal reflux disease). Marylou's thyroiditis. Hx of adenomatous colonic polyps. Impaired fasting glucose (02/11/14). A1C 6.1% 12/2012 .. A1C 5.8 07/04/18. Irritable bowel syndrome. diarrhea predominant. Preeclampsia. Rectal hemorrhage (03/02/15). Reflux esophagitis. Surgical History (Updated 01/18/22 @ 12:40 by Huyen Ramon DO). section. x3. Colonoscopy - MAC (03/16/14). w/ bx. 2016-serrated adenomatous polyp. EGD - MAC. 2016. Endometrial Ablation. 2007. 2012. H/O colonoscopy (12/05/17). History of esophagogastroduodenoscopy (EGD) (12/05/17). History of Nadia-en-Y gastric bypass (~11/2019) PREVIOUS FUNCTIONAL STATUS/SOCIAL/FAMILY SUPPORTS:: Monisha lives in an apartment [place], [place] with her Jayne and 2 daughters. She and Jayne have a blended family and they both have other adult children who live outside the home. 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 She is independent at baseline and does not receive any community services. CURRENT FUNCTIONAL STATUS:: Monisha was sitting up in a chair when CM met with her. She engaged easily with CM, well known to her, and appeared to be in good spirits. Monisha explained the events that necessitated her return to the hospital. She has been having difficulties with control of her blood sugars and repeatedly has episodes of hypoglycemia. Monisha informed CM that the provider thinks it may be related to her bariatric surgery done 2 years ago and changing insulin needs with the 100+lb weightloss she has had. Monisha stated that she had thought she might be discharged but the provider has ordered additional testing to be done tomorrow. ADVANCE DIRECTIVES:: On file. Jayne Busch () [facility] Has patient been provided with info about the portal/API?: Yes Did the patient sign up for the portal?: Yes (previously) CODE STATUS:: Full Code INSURANCE COVERAGE / FINANCIAL ISSUES:: [employer] CURRENT HOME/COMMUNITY SERVICES/EQUIPMENT:: none PRIMARY CARE PHYSICIAN:: Huyen Ramon POTENTIAL DISCHARGE NEEDS:: Follow up with PCP and plan of care PATIENT/FAMILY EDUCATION NEEDS:: Review of discharge instructions, limitations, activity, follow up plan, Ask Me Three TRANSPORTATION:: via private vehicle with family PLAN:: Monisha will likely be discharged home with no new services when medically cleared by provider. She will follow up with her community providers and plan of care and transport with family. CM will follow and assess for ongoing discharge needs. Readmission - Within the Past 30 Days Yes or No: Y - Date of First Admission Date of 1st Admission: 02/08/22 - Date of this Admission Date of Admission: 02/13/22 This admission was: Through ED - Office Visit Since 1st Admission Have you seen your PCP in the office since discharge?: No Had an appointment Been Scheduled?: Yes Date of Scheduled Appointment: 02/17/22 - I. Interview patient and/or Family Difficulty reaching your doctor or getting an office appt?: No Have you had trouble purchasing/ or taking medication?: No Have you had trouble with getting meals at home?: No Did you feel ready for discharge when you left the last time: Yes Did you call your physician beore you came to the ED?: No - ED visits How many ED visits in the past 12 months: 3 - Assessment for Readmission Summary of readmission circumstances, based upon interviews: Monisha has Type 2 DM and has recently had issues with hypoglycemia. She is undergoing testing to identify the etiology.
--- NOTE | 2022-02-14 14:07 | IN_ITS ---
Date of service: 02/14/22 Time of Service: 14:07 PT Notes Visit Reasons: Hypoglycemia Physical Therapy Inpatient Initial Evaluation Date: 02/14/2022 Referring Doctor: Adriana Campbell NP PT Orders: PT CONSULT: DC non PT-dependent Precautions: Activity as tolerated. Patient Profile/Admitting Diagnosis: Monisha is a 51-year-old female with past medical history significant for Marylou's thyroiditis, hypertension, mild type 2 diabetes mellitus diagnosed 1-1/2 years ago, status post bariatric surgery in November 2019 with weight loss of 100 to 205 pounds who presented to the ED on 02/13/2022 due to hypoglycemia. Patient reports that she has been having hypo glycemic episodes that started back in December 2020 and has recently become difficult to manage. PMHX: All Active Problems?(Updated 02/13/22 @ 06:27 by Praful Pink MD) Hypoglycemia (Acute) Heel lesion (Acute) Right heel, cracked skin .. inner foot tenderness .. out of proportion tenderness .. possible assoc with fever? (improved with soaking, but not closing) Fever (Acute) Over 1 week; T 103/102/99; Neg COVID; Awaiting Flu Status post bariatric surgery (Acute) Successful weight loss, but dangerous, symptomatic HYPOglycemia [neg dumping syndrome per [facility] Team] SARS-CoV-2 positive (Acute ~10/26/21) Pelvic pain (Acute) Dysmenorrhea (Acute) [place] exposure (Acute) Dtr (+) .. Sore Throat, lab [ ]Skin lesion (Acute) Mild wound, 2' probable abd intertrigo. Dumping syndrome (Acute 04/12/21) NOT per Bariatric Team.. Dx per [facility] .. [facility] Bariatric Team re-eval as NEG for dumping syndrome, 05/2021 Scab of knee (Acute) fell last week, rough/dry scab, but irritated .. Trial debride @ home, consider surgtery if tender.Facial twitching (Acute) Nodule of left lung (Acute) 3mm, incidental finding, LLL (12/2020 CT). [ ] 6 mo FU..Paresthesias (Acute) Hypotension (Acute) post gastric bypass ... lowering ACEi, BB, CCB. DIuretics in place 2' LE edema (albeit improved). Depressive disorder (Chronic 05/23/11) Wellbutrin 2012, discon 12/2012, restart 05/2013 Hx of Marylou thyroiditis (Acute) Complicated grieving (Acute) Her basically healthy mmo due to COVID19 infection. She was intubated within days of becoming sick, sending out a cheerful text 4 days beforehand! Monisha has cancelled the trip just before flights, etc were shut down; she was originally worried for her fa 2' health issues and dementia. Close-knit family; inability for gathering for .. video/webexed with family in [facility] (mo in [place]). Imbalance (Acute) Cervical radiculopathy (Acute) Hematuria (Acute) Other seborrheic keratosis (Acute) Hypomagnesemia (Acute) Leg edema (Acute) Flash pulmonary edema (Acute) Lymphedema (Chronic) referring to PT for evaluation and recommendations.. Bunion (Acute) 12/24/18-nelson Yarbrough DPM Sustained VT (ventricular tachycardia) (Acute) during hypokalemia episodeAbnormal serum creatinine level (Acute 07/2018) Serious Creatinine elevation, with resolution between episodes of dehydration ..Fatty liver (Acute) 10/02/18 [facility] 10/02/18 [facility]eder[facility] [place] [place]) 10/02/18 [facility] [place] [place] ([place] 08/21/18) Recommend continuation of reduced hours due to continued electrolyte imbalances, fatigue and metabolic disorder. Unclear etiology makes it difficult to create a clear treatment plan, which in turn, makes routine and FT work difficult to manage. Revised [facility] Ppwk (06/2019). Solid, intermittent improvements, but unpredictable. 07/2019 ik? ? 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 10/30/18, ik. I support time off from work due to continued electrolyte imbalances which cannot be explained. Re-referring to specialists @ [facility] as well as [facility]. Elevated plasma metanephrines (Acute 08/2018) Ordered by Endo, CT (Abd) [ ] ... follow up with Endo week of October 07. 09/19 18, ik Kidney stone (Acute 02/27/12) Migraine headache with aura (Chronic) DR. VALDEZ 08/29/11 Topamax works Vertigo and/or pain Uterine leiomyoma (Chronic 11/02/15) On pelvic ultrasound uterus enlarged approximate 13 cm.? 08/04/2021 pelvic pain radiating from back. Serrated adenoma of colon (Acute 07/07/15) Dr. Contreras, sessile colonic polyp, inflammatory polyp Sensorineural hearing loss, bilateral (Chronic 11/01/17) Restless leg (Acute 03/31/15) Some relief with iron infusion (albeit reaction to infusion), 05/2018. 06/16/19 f/u at sleep clinicReflux esophagitis (Acute 07/07/15) Dr. Contreras gastritis Rectal bleeding (Acute 03/02/15) Episodic - Was diagnosed with AVM's Premenstrual dysphoric disorder (Acute 11/10/14) Gabriel Henderson MD [place] [facility]. Positive TG (antinuclear antibody) (Acute 06/07/15) Mgrn w aura w intrc mgrn (Acute 09/05/11) DR. VALDEZ 08/29/11 Topamax works Vertigo and/or pain Mgrn wo aura wo ntrc mgr (Acute 09/05/11) DR. VALDEZ 08/29/11 Topamax works Vertigo and/or pain Incomplete tear of left rotator cuff (Acute 05/31/16) Diarrhea (Acute 10/29/15) Chronic, secretory .. s/p multiple [place], Bx. Trial cholestyramine, 10/2018, ik planned. Alopecia areata (Acute 05/23/11) Dx'ed 1990s Hair prosthesis Medical History? Alopecia Anemia Class 3 severe obesity due to excess calories with body mass index (BMI) of 40.0 to 44.9 in adult 07/31/19 [facility].Dehydration (~08/21/18) Several episodes now .. She can almost gauge her K levels based on mm weakness. [ ] BMP [ ] IVF-KCl Bolus-K have helped with hypokalemia in between bouts of diarrhea/dehydration when IVF not needed. 09/2018, ik Depression Diabetes mellitus type 2 in obese Improved s/p bariatric surgery and wt loss BUT HYPOglycemia Essential hypertension (12/05/12) Elevated BPs, especially DBP. Hx high BP since of twins (20yrs), noted in Nephro note (2017). HCTZ used x years for HTN & Edema. Spirono not tolerated (Hives/Flush). Trial Eplerenone, 10/09/18, mian Unable to tolerate eplerenone, angioedema-like reactions to K-sparing diuretics.. 09/2018, mian GERD (gastroesophageal reflux disease) Marylou's thyroiditis Hx of adenomatous colonic polyps Hypokalemia (11/07/16) Chronic, possible 2' IBS/Diarrhea. Continued despite GI improvements, albeit improved. Trial Eplerenone, to be followed by HCTZ decrease. 10/09/18 Intermittent improvement, but unsteady and unpredictable .. Monisha seems unable to maintain her own K levels WNL w/o bolus/infusions at this time. Unable to tolerate K-sparing diuretics. Cont to research, evaluate, consult .. 09/2018, mian Impaired fasting glucose (02/11/14) A1C 6.1% 12/2012 .. A1C 5.8 07/04/18. Irritable bowel syndrome diarrhea predominantPreeclampsia Rectal hemorrhage (03/02/15) Reflux esophagitis Surgical History? section x3 Colonoscopy - MAC (03/16/14) w/ bx 2015-serrated adenomatous polyp EGD - MAC 2015 Endometrial Ablation 2007 2012 H/O colonoscopy (12/05/17) History of esophagogastroduodenoscopy (EGD) (12/05/17) History of Nadia-en-Y gastric bypass (~11/2019) Tonsillectomy Social History/Home Situation: Lives with in a private home. 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 Equipment Owned/DME: None Subjective: NO symptoms before the 6-minute walk test (6MWT). Complained of dizziness at 5:40 minutes of the 6MWT. Objective: General Observation: In NAD. Seated at edge of bed. No lines. Mental Status: Alert and oriented as to person, place, time, and purpose. Able to pay attention, focus, and respond appropriately. Pain: Denies Vital Signs: Blood sugar started at 75 mg/dL of using her personal device, went down to 70 mg/dL at 5:40 minutes of the 6MWT ROM: Right Upper Extremity: Grossly WFL Left Upper Extremity: Grossly WFL Right Lower Extremity: Grossly WFL Left Lower Extremity: Grossly WFL Strength: Right Upper Extremity: Grossly 5/5 Left Upper Extremity: Shoulder grossly 4/5. Elbow and wrist grossly 5/5 Right Lower Extremity: Grossly 4+/5 Left Lower Extremity: Grossly 4+/5 Bed Mobility/Transfers: Rolling independent Supine to sit independent Sit to supine independent Sit to stand independent Stand to sit independent Bed to reclining chair independent Reclining chair to bed independent Gait: Instructed patient with level surface ambulation of 1500 feet without AD requiring distant supervision. Gait pattern unremarkable. 6MWT: Patient covered 415 meters of hallway ambulation with no shortness of breath but with report of dizziness, increased pressure in back of neck, and clamminess that peaked at about 5:40 minutes into the test. Patient showed blood sugar measurement of 70 mg/dLfrom her device. Nurse Emily who was present during the test and assisted with timing patient measured 81 mg/dL using the glucometer. Balance: Static Sitting: Normal Dynamic Sitting: Normal Static Standing: Normal Dynamic Standing: Good Special Tests: Mobility Limitations Standardized Measure [facility]-PAC 6 clicks Basic Mobility Inpatient Short Form: Raw Score: 24 CMS Score: 0% deficit Informed Consent/Education: Patient was instructed in purpose of PT consult and plan of care. ASSESSMENT: Patient did demonstrate reduction in blood sugar reading based off on personal blood sugar monitoring device and hospital glucometer during exercise to 70 mg/dL and within less than half hour after the 6MWT to 58 mg/dL based on both devices. Please refer to Nurse Diaz's recording of said reading in note. Patient may benefit from an individualized exercise regimen that will minimize drastic changes in blood sugar count and maintain achieved weight loss from surgery. Patient is assessed as a low complexity based on the following: History: 51-year-old female with past medical history as indicated above Examination: Demonstrable impairment in strength, balance, and mobility level with underlying impairments and functional limitations as exhibited above as well as deficit score of 0% utilizing the [facility] Mobility Inpatient Short Form Presentation: Stable Decision Makin low complexity Goals: N/A. PT evalaution and one treatment session only. Plan of Care/Treatment Plan: N/A. PT evalaution and one treatment session only. DISCHARGE RECOMMENDATIONS: [] Home with no services [] [] Home with services [specify] [X] Home with outpatient PT. May benefit from low intensity individualized exercise program based on blood sugar readings in order to avoid/minimize complications from bariatric surgery. [] SNF for continued rehabilitation [] [] [facility] [] [] SNF versus LTC based on ability to participate and progress [] TREATMENT CODE/TIME: 15305 x 20 minutes, 65250 x 13 minutes beginning at 14:07 PM. Thank you for the opportunity to participate in the care of this patient. Slime Hernandez PT, DPT, CLT [facility] [place], [place]
[2022-02-14 15:52] VITALS: BP 141/95; PULSE 79; RESP 17; TEMP 37; O2SAT 96
--- NOTE | 2022-02-14 17:20 | PGE_ITS ---
Date of Service Date of service: 02/14/22 Time of Service: 17:20 Assessment and Plan Assessment and plan (1) Hypoglycemia: Status: Resolved Assessment and plan: chronic and wears continuous glucose monitor, checks glucose frequently medical screening the ED unremarkable. will encourage frequent meals and adequate po intake - continues to not eat enough or often enough. (2) Hypokalemia: Assessment and plan: chronic, replete and follow Today 3.4 Subjective Subjective Patient reports: no new complaints, tolerating a regular diet, voiding w/o difficulty, bowel movement and afebrile; denies diarrhea, nausea, vomiting or shortness of breath Interval history since last seen: Monisha reports feeling lightheaded and sweaty after walking and states her glucose levels drop. After lunch we had her go with RN and PT and walk quickly - see PTs note. Her glucose did drop into the high 60's. We fed her and she was fine. Discussed with Dr Ortega - endocrinology @ [facility] - he recommended we have her exercise and when her glucose drops order some diagnostic lab studies - we will do this tomorrow 02/15/2022. He will try to move up her appointment as well. Exam Const General: cooperative, healthy appearing, comfortable and no acute distress Nutritional Appearance: obese Orientation: alert, awake and oriented x3 HENMT Head: normal to inspection, normocephalic and atraumatic Mouth: moist mucous membranes Resp Effort & Inspection: normal respiratory effort Auscultation: clear to auscultation bilaterally Cardio Rate: regular rate Rhythm: regular rhythm Heart Sounds: S1 normal and S2 normal GI Inspection: normal to inspection and obesity Palpation: soft Auscultation: normal bowel sounds Skin General skin exam: no rashes or lesions noted Neuro General: patient alert, patient awake and patient oriented x3 Objective Last Vital Signs Temp 37 C 02/14/22 15:52 Pulse 79 02/14/22 15:52 Resp 17 02/14/22 15:52 BP 141/95 H 02/14/22 15:52 Pulse Ox 96 02/14/22 15:52 Laboratory Results - last 24 hr 02/14/22 06:15 Sodium 142 Potassium 3.4 L Chloride 105 Carbon Dioxide 31.2 Anion Gap 5.8 BUN 19 H Creatinine 0.9 Est GFR (CKD-EPI 2020) 76.92 Glucose 100 Calcium 8.7 Magnesium 2.1
[2022-02-14] MEDS: Enoxaparin 40 MG/0.4 ML SYR SC (20:45)
[2022-02-14 23:23] VITALS: BP 125/85; PULSE 79; RESP 16; TEMP 36.2; O2SAT 98
[2022-02-15 06:19] LABS: Abs Immature Grans 0.01 10^3/uL (0.0-0.06); Absolute Basophil Count 0.06 10^3/uL (0.0-0.2); Absolute Eosinophil Count 0.35 10^3/uL (0.0-0.7); Absolute Lymphocyte Count 3.91 10^3/uL (1.2-3.4); Absolute Monocyte Count 0.71 10^3/uL (0.1-0.8); Absolute Neutrophil Count 3.56 10^3/uL (1.2-6.7); Basophils % 0.7; Eosinophils % 4.1; HCT 37.8 % (36.0-46.0); HGB 12.9 g/dL (11.2-15.7); Immature Grans % 0.1; Lymphocytes % 45.5; MCH 29.1 pg (27.0-33.0); MCHC 34.1 % (32.0-36.0); MCV 85 fL (80-95); MPV 9.8 fL (8.0-11.0); Monocytes % 8.3; Neutrophils % 41.3; Platelet Count 356 10^3/uL (130-400); RBC 4.43 10^6/uL (3.93-5.22); RDW 13.5 % (11.7-14.6); RDW-SD 42.2 fL
[2022-02-15 06:44] LABS: Anion Gap 6.3 mmol/L (3-11); BUN 23 mg/dL (7-18); CO2 28.7 mmol/L (21.0-32.0); CREATININE 0.8 mg/dL (0.55-1.02); Calcium 8.5 mg/dL (8.5-10.1); Chloride 106 mmol/L (98-107); Glucose 90 mg/dL (74-106); Magnesium 2.1 mg/dL (1.8-2.4); Sodium 141 mmol/L (136-145)
[2022-02-15 07:49] VITALS: BP 138/98; PULSE 80; RESP 16; TEMP 36.5; O2SAT 99
[2022-02-15] MEDS: buPROPion-XL 150 MG TABCR 300 MG PO (08:30)
[2022-02-15] MEDS: aMILoride HCL 5 MG TAB PO (08:30)
[2022-02-15] MEDS: Omeprazole 20 MG CAPCR 40 MG PO (08:30)
[2022-02-15] MEDS: Venlafaxine 75 MG TAB PO (08:31)
[2022-02-15] MEDS: Pramipexole 0.25 MG TAB PO (08:31)
[2022-02-15] MEDS: Potassium Chloride 20 MEQ TABCR PO (08:31)
[2022-02-15] MEDS: Gabapentin 800 MG TAB PO (08:31)
[2022-02-15] MEDS: Multivitamin TAB 1 TAB PO (08:31)
--- NOTE | 2022-02-15 12:19 | DSE_ITS ---
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 Reports approximately one year of episodes of frequent hypoglycemia -- becomes symptomatic, checks sugar (which is low) and then resolves with eating. Over this past week has had increasingly frequent episodes which have become more difficult to manage and [facility]. In the ED, her initial glucose was 107. Over course of stay fingersticks her glucose continued to drift down despite D50 and D5 Ringers. She was placed on observation status on the medical floor. The patient stated she is not on insulin. Prior to bariatric surgery she had diet controlled diabetes but was not prescribed any medications. She was found to be hypokalemic (2.9) and has since received oral and IV replenishment. She is on diuretics and this, she reports, has been an ongoing problem. She did not have any low glucose levels on during her admission. I discussed her with her paper bundler, Dr Ortega, at [facility]. He suggested we have her eat, stress her to fatigue and create hypoglycemic symptoms and then draw blood and provided a list of tests to be done. We did do that, she did well after lunch. She walked and rode a bike for several minutes and when she did get symptoms, her monitor read 61, nursing did a finger stick and got 90; when the labs returned, the plasma glucose was 91. It took her several minutes to recover, with peanut butter, crackers and nuts. She finally felt better about an hour later and her gluose was on the up swing around 100. She was discharged to home with her , shayne. She was given instructions related to diet, exercise, what to do when her sugar is low and to follow up with PCP, endocrinology and bariatric surgery as planned, Her IV was removed from her left AC and was red and warm. Heat and topical antibiotic ointment with bandaid was applied. ? Home Meds and New Rx's Prescriptions: Continued (DME) Dexcom G6 Sensor Device See Rx Instructions .ROUTE .MEDSUPPLY Qty: 3 11RF Rx Instructions: As directed (DME) Dexcom G6 Transmitter Device See Rx Instructions .ROUTE .MEDSUPPLY Qty: 1 3RF Rx Instructions: to be replaced ~Q3mo glucagon 3 mg/actuation spray,non-aerosol 3 mg intranasal ONCE Qty: 1 3RF Rx Instructions: as a single dose (DME) Non-Stick Pad 3 X 4 bandage See Rx Instructions .Route Qty: 10 0RF Rx Instructions: As directed (DME) hair prosthesis See Rx Instructions .Route .MEDSUPPLY Qty: 1 1RF Rx Instructions: hair prosthesis for alopecia areata of scalp bariatric fusion chewable complete 2 tab tablet 2 100 ml PO DAILY (DME) Scalp Hair Prosthesis Qty: 1 1RF Rx Instructions: Wear as recommende (DME) Blood Glucose Test Strip See Rx Instructions .ROUTE .MEDSUPPLY Qty: 100 3RF Rx Instructions: As directed to check blood glucose daily. No insulin. Dispense covered brand. (DME) glucometer See Rx Instructions .Route .MEDSUPPLY Qty: 1 0RF Rx Instructions: As directed to manage, prevent hypoglycemic episodes (DME) Blood Glucose Test Strip See Rx Instructions .ROUTE .MEDSUPPLY Qty: 100 3RF Rx Instructions: As directed to check blood glucose daily. No insulin. Dispense covered brand. (DME) lancets [Comfort Lancets] Misc See Rx Instructions .ROUTE .MEDSUPPLY Qty: 100 1RF Rx Instructions: As directed to check blood glucose daily. No insulin. Dispense covered brand. pramipexole 0.25 mg tablet 0.25 mg PO BID Qty: 180 3RF Rx Instructions: Take at lunch time and 1 hour prior to bedtime gabapentin 800 mg tablet 800 mg PO BID Qty: 180 3RF Rx Instructions: Take at noon and 1 hour prior to bedtime for RLS hydrochlorothiazide 25 mg tablet 25 mg PO BID PRN (Reason: edema) Qty: 180 3RF Rx Instructions: PRN amiloride 5 mg tablet 5 mg PO BID Qty: 180 3RF Rx Instructions: Continue bupropion HCl [Wellbutrin XL] 300 mg tablet extended release 24 hr 300 mg PO DAILY Qty: 90 3RF omeprazole 40 mg capsule,delayed release(DR/EC) 40 mg PO DAILY Qty: 90 3RF (DME) Dexcom G6 [employer] Misc See Rx Instructions .Route Qty: 1 0RF Rx Instructions: as directed venlafaxine 75 mg tablet 75 mg PO BID Qty: 180 3RF Hold Instructions: Home Medication placed on hold at Doctor's office Rx Instructions: Re-start Rx triamcinolone acetonide 0.5 % ointment 1 applic TP PRN PRN Rx Instructions: 1 FTU per hand BID (1g) .. 2g/day potassium chloride 20 mEq tablet extended release 20 meq PO PRN PRN (Reason: hypokalemia) Rx Instructions: taking prn per lab test cgc Discharge Instructions Instructions: Non-diabetic Hypoglycemia (DC) Additional Instructions: Follow up with Dr. Ortega as planned. His office will call you, he has asked your appointment with him be moved up. He will discuss the lab results with you - they are send outs and will take some time - two have to go to [facility] for processing. Eat small, frequent meals; increase protein. Exercise BEFORE meals, not after. If you feel weak, dizzy, sweating - have something to eat. ? Follow up with e ndocrinology and bariatric surgery as planned. Apply antibiotic ointment to your left arm where your IV was and apply a bandage. Apply heat for 10 min every couple of hours until it is improved. Referrals: Huyen Ramon DO [Primary Care Provider] - (Keep appointment for 02/17/2022 @ 08:30h ) Mario Ortega [ [facility] STAFF PHYSICIAN] - (Follow up as planned - they are moving appointment up so it is sooner. Current appointment is 05/01/2021 @ 09:30 am . A nurse will call you with an Appointment if they do not call in the next couple days please give them a call.) Activity:: Activity as Tolerated Equipment/Supplies:: Blood Glucose Monitor Diet:: High protein; complex carbohydrates Discharge Orders Discharge Orders: Discharge Order (Routine); Ordered 02/15/22 Ordered By: Adriana Campbell Discharge Data Discharge Date/Time-TO BE ENTERED AT DEPARTURE: 02/15/22 15:51 DS: Summary Time Spent with Patient providing and/or coordinating discharge services: Greater than 30 minutes Status at Discharge Functional status at discharge: independent ambulation Overall status at discharge: patient is back to baseline Mental Status: mental status grossly normal Speech and Movement: speech and movement normal Mood: congruent mood Affect: normal affect Exam Const General: cooperative, healthy appearing, comfortable and no acute distress Nutritional Appearance: obese Orientation: alert, awake and oriented x3 HENMT Head: normal to inspection, normocephalic and atraumatic Mouth: moist mucous membranes Resp Effort & Inspection: normal respiratory effort Auscultation: clear to auscultation bilaterally Cardio Rate: regular rate Rhythm: regular rhythm Heart Sounds: S1 normal and S2 normal GI Inspection: normal to inspection and obesity Palpation: soft Auscultation: normal bowel sounds Skin General skin exam: no rashes or lesions noted Neuro General: patient alert, patient awake and patient oriented x3 Psych Mental Status: mental status grossly normal Speech and Movement: speech and movement normal Mood: congruent mood Affect: normal affect DS: Data Vitals/I&O Vitals and I&O: Vital Signs Temperature 36.5 C 02/15/22 07:49 Temperature Source Tympanic 02/15/22 07:49 Pulse 80 02/15/22 07:49 Pulse Rhythm Regular 02/14/22 19:33 Pulse 81 02/13/22 05:10 Respiratory Rate 16 02/15/22 07:49 Respiratory Effort Non-Labored 02/15/22 01:00 Respiratory Depth Normal 02/15/22 01:00 Respiratory Pattern Normal 02/15/22 01:00 Blood Pressure 138/98 H 02/15/22 07:49 Blood Pressure Mean 109 02/13/22 05:00 Blood Pressure Position Supine 02/13/22 01:00 Pulse Oximetry 99 02/15/22 07:49 Oxygen Delivery Method Room Air 02/15/22 07:49 Oxygen Flow Rate 0 02/15/22 07:49 Pain Level 0 02/14/22 07:41 Comment 02/13/22 13:09 Intake & Output 02/14/22 02/15/22 02/15/22 23:59 11:59 23:59 Intake Total 720 / 720 480 / 480 Balance 720 / 720 480 / 480 Intake: Oral 720 / 720 480 / 480 Other: Urine Color Yellow Urine Appearance Clear Clear Urine Odor Normal Comment Patient uses the bathroom as needed. Voiding Methods Toilet Data Completed and Pending Labs on day of discharge: Labs from last 24 hours 02/15/22 02/15/22 02/15/22 Unknown 11:17 10:23 WBC RBC Hgb Hct MCV MCH MCHC RDW Plt Count MPV Immature Gran % Neutrophils % Lymphocytes % Monocytes % Eosinophils % Basophils % Nucleated RBC % Absolute Neutrophils Absolute Lymphocytes Absolute Monocytes Absolute Eosinophils Absolute Basophils Sodium Potassium Chloride Carbon Dioxide Anion Gap BUN Creatinine Est GFR (CKD-EPI 2020) Glucose Insulin Level C-Peptide ng/ml Calcium Magnesium Repaglinide Pending Chlorpropamide Pending Tolbutamide Pending Tolazamide Pending Acetohexamide Pending Glimepiride Pending Glipizide Pending Glyburide Pending Hypoglycemic Agnt Commt Pending B-Hydroxybutyrate Pending Add-On Test Request Pending 02/15/22 02/15/22 02/15/22 10:22 10:18 05:48 WBC 8.60 RBC 4.43 Hgb 12.9 Hct 37.8 MCV 85 MCH 29.1 MCHC 34.1 RDW 13.5 Plt Count 356 MPV 9.8 Immature Gran % 0.1 Neutrophils % 41.3 Lymphocytes % 45.5 Monocytes % 8.3 Eosinophils % 4.1 Basophils % 0.7 Nucleated RBC % 0.0 Absolute Neutrophils 3.56 Absolute Lymphocytes 3.91 H Absolute Monocytes 0.71 Absolute Eosinophils 0.35 Absolute Basophils 0.06 Sodium Potassium Chloride Carbon Dioxide Anion Gap BUN Creatinine Est GFR (CKD-EPI 2020) Glucose Pending Insulin Level Pending C-Peptide ng/ml Pending Calcium Magnesium Repaglinide Chlorpropamide Tolbutamide Tolazamide Acetohexamide Glimepiride Glipizide Glyburide Hypoglycemic Agnt Commt B-Hydroxybutyrate Add-On Test Request 02/15/22 05:48 WBC RBC Hgb Hct MCV MCH MCHC RDW Plt Count MPV Immature Gran % Neutrophils % Lymphocytes % Monocytes % Eosinophils % Basophils % Nucleated RBC % Absolute Neutrophils Absolute Lymphocytes Absolute Monocytes Absolute Eosinophils Absolute Basophils Sodium 141 Potassium 4.0 Chloride 106 Carbon Dioxide 28.7 Anion Gap 6.3 BUN 23 H Creatinine 0.8 Est GFR (CKD-EPI 2020) 88.60 Glucose 90 Insulin Level C-Peptide ng/ml Calcium 8.5 Magnesium 2.1 Repaglinide Chlorpropamide Tolbutamide Tolazamide Acetohexamide Glimepiride Glipizide Glyburide Hypoglycemic Agnt Commt B-Hydroxybutyrate Add-On Test Request PFSH All Active Problems Hypoglycemia (Acute) Heel lesion (Acute) Right heel, cracked skin .. inner foot tenderness .. out of proportion tenderness .. possible assoc with fever? (improved with soaking, but not closing) Fever (Acute) Over 1 week; T 103/102/99; Neg COVID; Awaiting Flu Status post bariatric surgery (Acute) Successful weight loss, but dangerous, symptomatic HYPOglycemia [neg dumping syndrome per [facility]] SARS-CoV-2 positive (Acute ~10/26/21) Pelvic pain (Acute) Dysmenorrhea (Acute) Alexander exposure (Acute) Dtr (+) .. Sore Throat, lab [ ] Skin lesion (Acute) Mild wound, 2' probable abd intertrigo. Dumping syndrome (Acute 04/12/21) NOT per Bariatric Team.. Dx per [facility] [place] [place] [facility] re-eval as NEG for dumping syndrome, 05/2021 Scab of knee (Acute) fell last week, rough/dry scab, but irritated .. Trial debride @ home, consider surgtery if tender. Facial twitching (Acute) Nodule of left lung (Acute) 3mm, incidental finding, LLL (12/2020 CT). [ ] 6 mo FU.. Paresthesias (Acute) Hypotension (Acute) post gastric bypass ... lowering ACEi, BB, CCB. DIuretics in place 2' LE edema (albeit improved). Depressive disorder (Chronic 05/23/11) Wellbutrin 2012, discon 12/2012, restart 05/2013 Hx of Marylou thyroiditis (Acute) Complicated grieving (Acute) Her basically healthy mo due to COVID19 infection. She was intubated within days of becoming sick, sending out a cheerful text 4 days beforehand! Monisha has cancelled the trip just before flights, etc were shut down; she was originally worried for her fa 2' health issues and dementia. Close-knit family; inability for gathering for .. video/webexed with family in [facility] ([place] in [place]). Imbalance (Acute) Cervical radiculopathy (Acute) Hematuria (Acute) Other seborrheic keratosis (Acute) Hypomagnesemia (Acute) Leg edema (Acute) Flash pulmonary edema (Acute) Lymphedema (Chronic) referring to PT for evaluation and recommendations.. Bunion (Acute) 12/24/18-nelson Yarbrough DPM Sustained VT (ventricular tachycardia) (Acute) during hypokalemia episode Abnormal serum creatinine level (Acute 07/2018) Serious Creatinine elevation, with resolution between episodes of dehydration .. Fatty liver (Acute) 10/02/18 Dr Schroeder/[facility] Angioedema (Acute) 10/02/18 Dr Schroeder/[facility] Flushing (Acute) 10/02/18 Dr Schroeder/[facility] Out of work (Acute 08/21/18) Recommend continuation of reduced hours due to continued electrolyte imbala nces, fatigue and metabolic disorder. Unclear etiology makes it difficult to create a clear treatment plan, which in turn, makes routine and FT work difficult to manage. Revised [facility] Ppwk (06/2019). Solid, intermittent improvements, but unpredictable. 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 10/30/18, mian. I support time off from work due to continued electrolyte imbalances which cannot be explained. Re-referring to specialists @ [facility] as well as [facility]. Elevated plasma metanephrines (Acute 08/2018) Ordered by Endo, CT (Abd) [ ] ... follow up with Endo week of October 07. 08/2018, mian Kidney stone (Acute 02/27/12) Migraine headache with aura (Chronic) DR. VALDEZ 08/29/11 N-Sided works Vertigo and/or pain Uterine leiomyoma (Chronic 11/02/15) On pelvic ultrasound uterus enlarged approximate 13 cm. 08/04/2021 pelvic pain radiating from back. Serrated adenoma of colon (Acute 07/07/15) Dr. Contreras, sessile colonic polyp, inflammatory polyp Sensorineural hearing loss, bilateral (Chronic 11/01/17) Restless leg (Acute 03/31/15) Some relief with iron infusion (albeit reaction to infusion), 05/2018. 06/16/19 f/u at sleep clinic Reflux esophagitis (Acute 07/07/15) Dr. Contreras gastritis Rectal bleeding (Acute 03/02/15) Episodic - Was diagnosed with AVM's Premenstrual dysphoric disorder (Acute 11/10/14) Gabriel Henderson MD [facility]. Positive TG (antinuclear antibody) (Acute 06/07/15) Mgrn w aura w intrc mgrn (Acute 09/05/11) DR. VALDEZ 08/29/11 Topamax works Vertigo and/or pain Mgrn wo aura wo ntrc mgr (Acute 09/05/11) DR. VALDEZ 08/29/11 Topamax works Vertigo and/or pain Incomplete tear of left rotator cuff (Acute 05/31/16) Diarrhea (Acute 10/29/15) Chronic, secretory .. s/p multiple [place], Bx. Trial cholestyramine, 10/2018, ik planned. Alopecia areata (Acute 05/23/11) Dx'ed 1990s Hair prosthesis Medical History Alopecia Anemia Class 3 severe obesity due to excess calories with body mass index (BMI) of 40.0 to 44.9 in adult 07/31/19 [facility] Dehydration (~08/21/18) Several episodes now .. She can almost gauge her K levels based on mm weakness. [ ] BMP [ ] IVF-KCl Bolus-K have helped with hypokalemia in between bouts of diarrhea/dehydration when IVF not needed. 09/2018, mian Depression Diabetes mellitus type 2 in obese Improved s/p bariatric surgery and wt loss BUT HYPOglycemia Essential hypertension (12/05/12) Elevated BPs, especially DBP. Hx high BP since of twins (20yrs), noted in Nephro note (2017). HCTZ used x years for HTN & Edema. Spirono not tolerated (Hives/Flush). Trial Eplerenone, 10/09/18, ik Unable to tolerate eplerenone, angioedema-like reactions to K-sparing diuretics.. 09/2018, mian GERD (gastroesophageal reflux disease) Marylou's thyroiditis Hx of adenomatous colonic polyps Hypokalemia (11/07/16) Chronic, possible 2' IBS/Diarrhea. Continued despite GI improvements, albeit improved. Trial Eplerenone, to be followed by HCTZ decrease. 10/09/18 Intermittent improvement, but unsteady and unpredictable .. Monisha seems unable to maintain her own K levels WNL w/o bolus/infusions at this time. Unable to tolerate K-sparing diuretics. Cont to research, evaluate, consult .. 09/2018, ik Impaired fasting glucose (02/11/14) A1C 6.1% 12/2012 .. A1C 5.8 07/04/18. Irritable bowel syndrome diarrhea predominant Preeclampsia Rectal hemorrhage (03/02/15) Reflux esophagitis Surgical History section x3 Colonoscopy - MAC (03/16/14) w/ bx 2015-serrated adenomatous polyp EGD - MAC 2015 Endometrial Ablation 2007 2012 H/O colonoscopy (12/05/17) History of esophagogastroduodenoscopy (EGD) (12/05/17) History of Nadia-en-Y gastric bypass (~11/2019) Tonsillectomy Family History Mother Pulmonary hypertension Heart disease valve replacement Father Prostate cancer Essential hypertension Parkinsons Sister Uterine cancer Brother No problems noted. Other Colon cancer Social History Smoking/Tobacco Use Status: Never Smoking risk assessment performed?: Yes Alcohol Intake: current Alcohol Intake frequency: holidays/special occasions only Alcohol type: wine Drug use: Never Substance use type: does not use Adopted: No Caregiver/Support person: No Household members: spouse and other Details: Partner - Jayne, children Housing: house Number of Children: 4 number of grandchildren: 0 Communication Needs: Corrective Lenses Education Level: college current occupation: Daily today tested negative on this on the testing day negative negative di Pets and animals: Yes Pets and animals: cat(s) and dog(s) Sexually active: Yes Do you think of yourself as: lesbian/peña/homosexual Current gender identity: female What is your relationship status?: living with partner Panel score (0-1 are the most socially isolated patients): 1 What type of physical activity do you participate in: walking Duration: 15-30 minutes/day Frequency: 3-4 times per week Seatbelt use: always Working smoke detector in home: Yes Fire extinguisher in home: Yes Carbon monox detector in home: Yes Firearms in home: No Do you feel safe at home: Yes Do you feel safe in your relationship?: Yes Female Reproductive History Menstrual control method: permanent sterilization History History 3 Para 4 Hx # Term Pregnancies Multiple births 1 Hx # Pregnancies Ectopic pregnancies AB induced Hx Number of Living Children AB spontaneous
[2022-02-15 14:18] LABS: Glucose 91 mg/dL (74-106)
[2022-02-15 14:20] LABS: Lab Add On Test DONE
--- NOTE | 2022-02-15 15:14 | PTTR_ITS ---
Date of service: 02/15/22 Time of Service: 12:47 PT Notes Visit Reasons: Hypoglycemia Inpatient Physical Therapy Treatment Note [facility] Date: 02/15/2022 PRECAUTIONS: Activity as tolerated, monitor blood glucose levels SUBJECTIVE: Monisha is pleasant and agreeable to participating in PT. She reports that she did not carb-load at lunch prior to PT session. OBJECTIVE: PAIN: No c/o pain BED MOBILITY/TRANSFERS Sit-stand: I Stand-sit: I GAIT Assistive Device: No AD Weight bearing: Full Assist: I Distance: 436 meters during initial 6-minute walk test; 337 meters during second 6-minute walk test (stopping due to symptoms at 4 minutes 30 seconds) Deviation: Appropriate gait and pacing, became symptomatic during second 6- minute walk test THEREX: Patient completes 10 minutes of NuStep biking on level 4 without symptoms. BLOOD GLUCOSE TESTIN-minute walk test #1: 106 mg/dL (finger stick)/86 mg/dL (patient glucometer) pre-walk, 93 mg/dL (finger stick)/84 mg/dL (patient glucometer) post-walk with slight clamminess and chilled feelings NuStep biking: Blood glucose was not obtained before nor after exercise due to patient self-reportedly asymptomatic 6-minute walk test #2: 93 mg/dL (finger stick)/85 mg/dL (patient glucometer) pre-walk, 92 mg/dL (finger stick)/70 mg/dL (patient glucometer) at 4 minutes 30 seconds with dizziness and lightheadedness (All finger stick testing was completed by a member of the nursing staff.) ASSESSMENT: Patient was able to tolerate increased exercise prior to becoming symptomatic. She demonstrates a progression in gait distance with 6-minute walk test today. PLAN: Continue with blood glucose testing with exercise, as instructed by referring hospitalist staff. TREATMENT CODE/TIME: 43 minutes; [id number] x3 (12:47)
--- NOTE | 2022-02-15 15:16 | PDOC.CMDIS ---
- If Service Date Differs Date of service: 02/15/22 Time of Service: 15:16 LACE Index Scoring Tool - Questions: Length of Stay (in days): 2 Acuity (Admit via E.D.?): Yes Comorbidities: Diabetes w/o Complication E.D. Visits: 3 - Answers: Total Score: 9 Risk of Readmission: Low Risk Care Management Discharge Reason for Hospitalization: Hypoglycemia Discharge Plan: Monisha will be discharged home with no new services. She will follow up with her community providers and plan of care and transport with family. Patient/Family Education Needs: Review of discharge instructions, limitations, activity, follow up plan, Ask Me Three
[2022-02-15 15:27] VITALS: BP 138/96; PULSE 92; RESP 16; TEMP 36.8; O2SAT 98
[2022-02-15] MEDS: Bacitracin 1 PACKET TP (15:37)
--- NOTE | 2022-02-15 18:00 | INDS_ITS ---
Date of service: 02/16/22 Time of Service: 16:28 PT Notes Visit Reasons: Hypoglycemia Physical Therapy Inpatient Discharge Summary Date: 02/15/2022 Dates of service: 12/16/2021 through 02/16/2022 This is a clinical summary of care provided for the duration of dates listed above. No charge was made in the completion of this documentation. Referring Doctor: Adriana Campbell NP PT Orders: PT CONSULT: DC non PT-dependent Precautions: Activity as tolerated. Patient Profile/Admitting Diagnosis: Monisha is a 51-year-old female with past medical history significant for Marylou's thyroiditis, hypertension, mild type 2 diabetes mellitus diagnosed 1-1/2 years ago, status post bariatric surgery in November 2019 with weight loss of 100 to 205 pounds who presented to the ED on 02/13/2022 due to hypoglycemia.? Patient reports that she has been having hypoglycemic episodes that started back in December 2020 and has recently become difficult to manage. PMHX: All Active Problems?(Updated 02/13/22 @ 06:27 by Praful Pink MD) Hypoglycemia (Acute) Heel lesion (Acute) Right heel, cracked skin .. inner foot tenderness .. out of proportion tenderness .. possible assoc with fever? (improved with soaking, but not closing) Fever (Acute) Over 1 week; T 103/102/99; Neg COVID; Awaiting Flu Status post bariatric surgery (Acute) Successful weight loss, but dangerous, symptomatic HYPOglycemia [neg dumping syndrome per [facility]] SARS-CoV-2 positive (Acute ~10/26/21) Pelvic pain (Acute) Dysmenorrhea (Acute) [place] exposure (Acute) Dtr (+) .. Sore Throat, lab [ ]Skin lesion (Acute) Mild wound, 2' probable abd intertrigo. Dumping syndrome (Acute 04/12/21) NOT per Bariatric Team.. Dx per [facility] Endo .. [facility] Bariatric Team re-eval as NEG for dumping syndrome, 05/2021 Scab of knee (Acute) fell last week, rough/dry scab, but irritated .. Trial debride @ home, consider surgtery if tender.Facial twitching (Acute) Nodule of left lung (Acute) 3mm, incidental finding, LLL (12/2020 CT). [ ] 6 mo FU..Paresthesias (Acute) Hypotension (Acute) post gastric bypass ... lowering ACEi, BB, CCB. DIuretics in place 2' LE edema (albeit improved). Depressive disorder (Chronic 05/23/11) Wellbutrin 2012, discon 12/2012, restart 05/2013 Hx of Marylou thyroiditis (Acute) Complicated grieving (Acute) Her basically healthy mmo due to COVID19 infection. She was intubated within days of becoming sick, sending out a cheerful text 4 days beforehand!? Monisha has cancelled the trip just before flights, etc were shut down; she was originally worried for her fa 2' health issues and dementia. Close-knit family;? inability for gathering for .. video/webexed with family in [facility] (mo in [place]). Imbalance (Acute) Cervical radiculopathy (Acute) Hematuria (Acute) Other seborrheic keratosis (Acute) Hypomagnesemia (Acute) Leg edema (Acute) Flash pulmonary edema (Acute) Lymphedema (Chronic) referring to PT for evaluation and recommendations.. Bunion (Acute) 12/24/18-nelson Yarbrough DPM Sustained VT (ventricular tachycardia) (Acute) during hypokalemia episodeAbnormal serum creatinine level (Acute 07/2018) Serious Creatinine elevation, with resolution between episodes of dehydration ..Fatty liver (Acute) 10/02/18 [facility] Schro[facility]) 10/02/18 Dr Schroeder[facility] 10/02/18 [facility] Schroeder[facility] ([facility]ute 08/21/18) Recommend continuation of reduced hours due to continued electrolyte imbalances, fatigue and metabolic disorder. Unclear etiology makes it difficult to create a clear? treatment plan, which in turn, makes routine and FT work difficult to manage. Revised [facility] Ppwk (06/2019). Solid, intermittent improvements, but unpredictable.? 07/2019 ik? ? 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 10/30/18, ik. I support time off from work due to continued electrolyte imbalances? which cannot be explained. Re-referring to specialists @ [facility] as well as [facility]. Elevated plasma metanephrines (Acute 08/2018) Ordered by [facility] (Abd) [ ] ... follow up with Endo week of October 07. 08/2018, ik Kidney stone (Acute 02/27/12) Migraine headache with aura (Chronic) DR. VALDEZ 08/29/11 Topamax works Vertigo and/or pain Uterine leiomyoma (Chronic 11/02/15) On pelvic ultrasound uterus enlarged approximate 13 cm.? 08/04/2021 pelvic pain radiating from back. Serrated adenoma of colon (Acute 07/07/15) Dr. Contreras, sessile colonic polyp, inflammatory polyp Sensorineural hearing loss, bilateral (Chronic 11/01/17) Restless leg (Acute 03/31/15) Some relief with iron infusion (albeit reaction to infusion), 05/2018. 06/16/19 f/u at sleep clinicReflux esophagitis (Acute 07/07/15) Dr. Contreras gastritis Rectal bleeding (Acute 03/02/15) Episodic - Was diagnosed with AVM's Premenstrual dysphoric disorder (Acute 11/10/14) Gabriel Henderson MD [facility] Positive GT (antinuclear antibody) (Acute 06/07/15) Mgrn w aura w intrc mgrn (Acute 09/05/11) DR. VALDEZ 08/29/11 Topamax works Vertigo and/or pain Mgrn wo aura wo ntrc mgr (Acute 09/05/11) DR. VALDEZ 08/29/11 Topamax works Vertigo and/or pain Incomplete tear of left rotator cuff (Acute 05/31/16) Diarrhea (Acute 10/29/15) Chronic, secretory .. s/p multiple Excello, Bx. Trial cholestyramine, 10/2018, ik planned. Alopecia areata (Acute 05/23/11) Dx'ed 1990s Hair prosthesis Medical History? Alopecia Anemia Class 3 severe obesity due to excess calories with body mass index (BMI) of 40.0 to 44.9 in adult 07/31/19 [facility]Dehydration (~08/21/18) Several episodes now .. She can almost gauge her K levels based on mm weakness. [ ] BMP [ ] IVF-KCl Bolus-K have helped with hypokalemia in between bouts of? diarrhea/dehydration when IVF not needed. 09/2018, ik Depression Diabetes mellitus type 2 in obese Improved s/p bariatric surgery and wt loss BUT HYPOglycemia Essential hypertension (12/05/12) Elevated BPs, especially DBP. Hx high BP since of twins (20yrs), noted in Nephro note (2017). HCTZ used x years for HTN & Edema. Spirono not tolerated? (Hives/Flush). Trial Eplerenone, 10/09/18, ik Unable to tolerate eplerenone, angioedema-like reactions to K-sparing diuretics.. 09/2018, ik GERD (gastroesophageal reflux disease) Marylou's thyroiditis Hx of adenomatous colonic polyps Hypokalemia (11/07/16) Chronic, possible 2' IBS/Diarrhea. Continued despite GI improvements, albeit improved. Trial Eplerenone, to be followed by HCTZ decrease. 10/09/18 Intermittent improvement, but? unsteady and unpredictable .. Monisha seems unable to maintain her own K levels WNL w/o bolus/infusions at this time. Unable to tolerate K-sparing diuretics.? Cont to research, evaluate, consult .. 09/2018, mian Impaired fasting glucose (02/11/14) A1C 6.1% 12/2012 .. A1C 5.8 07/04/18. Irritable bowel syndrome diarrhea predominantPreeclampsia Rectal hemorrhage (03/02/15) Reflux esophagitis Surgical History? section x3 Colonoscopy - MAC (03/16/14) w/ bx 2015-serrated adenomatous polyp EGD - MAC 2015 Endometrial Ablation 2007 2012 H/O colonoscopy (12/05/17) History of esophagogastroduodenoscopy (EGD) (12/05/17) History of Nadia-en-Y gastric bypass (~11/2019) Tonsillectomy Social History/Home Situation: Lives with in a private home.? 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 Equipment Owned/DME: None Subjective: NT. See most recent HEALTH INFORMATION SYSTEMS TECHNICIAN notes. Objective: General Observation: NT. See most recent HEALTH INFORMATION SYSTEMS TECHNICIAN notes. Mental Status: NT. See most recent HEALTH INFORMATION SYSTEMS TECHNICIAN notes. Pain: NT. See most recent HEALTH INFORMATION SYSTEMS TECHNICIAN notes. Vital Signs: NT. See most recent HEALTH INFORMATION SYSTEMS TECHNICIAN notes. ROM: Right Upper Extremity: ? Grossly WFL Left Upper Extremity:? Grossly WFL Right Lower Extremity: Grossly WFL Left Lower Extremity: Grossly WFL Strength: Right Upper Extremity: Grossly 5/5 Left Upper Extremity: Shoulder grossly 4/5. Elbow and wrist grossly 5/5 Right Lower Extremity: Grossly 4+/5 Left Lower Extremity: Grossly 4+/5 Bed Mobility/Transfers: Rolling independent Supine to sit independent Sit to supine independent Sit to stand independent Stand to sit independent Bed to reclining chair independent Reclining chair to bed independent Gait: Instructed patient with level surface ambulation of 1500 feet without AD requiring distant supervision.? Gait pattern unremarkable. 6MWT: Patient covered 415 meters of hallway ambulation with no shortness of breath but with report of dizziness, increased pressure in back of neck,? and clamminess that peaked at about 5:40 minutes into the test.? Patient showed blood sugar measurement of 70 mg/dLfrom her device.? Nurse Emily who was present during the test and assisted with timing patient measured 81 mg/dL using the glucometer. BLOOD GLUCOSE TESTING: (as performed by patient with ROSANNA Silverio and LARRY Darden today) 6-minute walk test #1: 106 mg/dL (finger stick)/86 mg/dL (patient glucometer) pre-walk, 93 mg/dL (finger stick)/84 mg/dL (patient glucometer) post-walk with slight clamminess and chilled feelings [employer] biking: Blood glucose was not obtained before nor after exercise due to patient self-reportedly asymptomatic 6-minute walk test #2: 93 mg/dL (finger stick)/85 mg/dL (patient glucometer) pre-walk, 92 mg/dL (finger stick)/70 mg/dL (patient glucometer) at 4 minutes 30 seconds with dizziness and lightheadedness Balance: Static Sitting: Normal Dynamic Sitting: Normal Static Standing: Normal Dynamic Standing: Good ASSESSMENT: PT order was written to ensure safe performance of the 6-minute walk test and designated aerobic exercises while monitoring for symptoms of hypoglycemia. Patient did demonstrate reduction in blood sugar reading based off on personal blood sugar monitoring device and hospital glucometer readings during exercises done in the past two days.? Patient may benefit from an individualized exercise regimen that will minimize drastic changes in blood sugar count and maintain achieved weight loss from bariatric surgery. Patient is assessed as a low complexity based on the following: History: 51-year-old female with past medical history as indicated above Examination: Demonstrable impairment in strength, balance, and mobility level with underlying impairments and functional limitations as exhibited above as well as deficit score of 0% utilizing the [facility] Mobility Inpatient Short Form Presentation: Stable Decision Makin low complexity Goals: 1. Patient will cover at least 430 meters in the 6-minute walk test uisng no assistive device without hypoglycemic symptoms. Plan of Care/Treatment Plan: Will plan on seeing patient for 1-2 sessions more to safely monitor for symptoms of hypoglycemia during exercise performance. DISCHARGE RECOMMENDATIONS: [] ? Home with no services [] [] ? Home with services [specify] [X] ? Home with outpatient PT.? May benefit from low intensity individualized exercise program based on blood sugar readings in order to avoid/minimize complications from bariatric surgery.? [] ? SNF for continued rehabilitation [] [] ? [facility] [] [] ? SNF versus LTC based on ability to participate and progress [] TREATMENT CODE/TIME: FL Thank you for the opportunity to participate in the care of this patient. Slime Hernandez PT, DPT, CLT [facility] [place], [place]
[2022-02-15 22:27] LABS: Beta-Hydroxybutyrate <0.1 mmol/L (<0.4)
[2022-02-16 08:58] LABS: Insulin 10.8 uIU/mL (<29.0)
[2022-02-16 09:15] LABS: Insulin 5.3 uIU/mL (<29.0)
[2022-02-16 11:34] LABS: C-Peptide 2.6 ng/mL (1.1 - 4.4)
[2022-02-16 18:14] LABS: C-Peptide 3.7 ng/mL (1.1 - 4.4)
[2022-02-22 09:40] LABS: Chlorpropamide Negative
[2022-02-22 09:41] LABS: Glimepiride Negative; Tolazamide Negative; Tolbutamide Negative
[2022-02-22 09:42] LABS: Glipizide Negative; Glyburide Negative; Repaglinide Negative
[2022-02-22 09:44] LABS: Comment See Comments
== END 2022-02-15 15:51 | disposition home or self-care (01) ==
LOC: ER 07:04 → MS 08:14
PROVIDERS: Internal Medicine; Nurse Practitioner Family; Student in an Organized Health Care Education/Training Program; Admitting Provider General Practice; Emergency Provider Student in an Organized Health Care Education/Training Program; PCP Student in an Organized Health Care Education/Training Program; Visit Provider General Practice
DX: E16.1 Other hypoglycemia (principal); Z20.822 Contact with and (suspected) exposure to COVID-19; Z98.84 Bariatric surgery status; E87.6 Hypokalemia; R50.9 Fever, unspecified; Z86.16 Personal history of COVID-19; R91.1 Solitary pulmonary nodule; F32.A Depression, unspecified; M54.12 Radiculopathy, cervical region; I89.0 Lymphedema, not elsewhere classified; K76.0 Fatty (change of) liver, not elsewhere classified; E06.3 Autoimmune thyroiditis; G43.109 Migraine with aura, not intractable, without status migrainosus; H90.3 Sensorineural hearing loss, bilateral; L63.9 Alopecia areata, unspecified; D64.9 Anemia, unspecified; I10 Essential (primary) hypertension; K21.9 Gastro-esophageal reflux disease without esophagitis; K58.0 Irritable bowel syndrome with diarrhea; K21.00 Gastro-esophageal reflux disease with esophagitis, without bleeding; Z79.899 Other long term (current) drug therapy
CPT/HCPCS: 36415; 36416; 80048; 80053; 80307; 82947; 82962; 87635; 96360; 96361; 96365; 96366; 96372; 97162; 97530; 99285; J1650; 82010; 83525; 83735; 84681; 85025; 99217; 99219; 99225; G0378; J3480

== ENCOUNTER 2022-03-07 03:39 | Outpatient (CLI) | payer OTHER, SELFPAY ==
[2022-03-07 09:35] LABS: MCH 29.1 pg (27.0-33.0); MCHC 34.2 % (32.0-36.0); MCV 85 fL (80-95); MPV 9.1 fL (8.0-11.0); Platelet Count 366 10^3/uL (130-400); RBC 4.47 10^6/uL (3.93-5.22); RDW 13.2 % (11.7-14.6); RDW-SD 41.3 fL
[2022-03-07 10:04] LABS: Magnesium 2.1 mg/dL (1.8-2.4)
[2022-03-07 11:20] LABS: Iron 57 ug/dL (50-170)
[2022-03-07 11:43] LABS: Vitamin D 25 Total 39.9 ng/mL (30-100)
[2022-03-07 11:52] LABS: ALT 33 U/L (14-59); AST 29 U/L (15-37); Albumin 3.7 g/dL (3.4-5.0); Alkaline Phosphatase 63 U/L (46-116); Anion Gap 8.2 mmol/L (3-11); BUN 22 mg/dL (7-18); Bilirubin, Total 0.3 mg/dL (0.2-1.0); CO2 31.8 mmol/L (21.0-32.0); CREATININE 0.9 mg/dL (0.55-1.02); Calcium 9.2 mg/dL (8.5-10.1); Chloride 100 mmol/L (98-107); Estimated GFR 76.92 (mL/min/1.73m2); Ferritin 16 ng/mL (8-252); Folate 15.2 ng/mL (8.6-20.0); Glucose 90 mg/dL (74-106); Potassium 3.2 mmol/L (3.5-5.1); Sodium 140 mmol/L (136-145); Total Protein 6.9 g/dL (6.4-8.2); Vitamin B12 592 pg/mL (193-986)
[2022-03-07 20:07] LABS: Parathyroid Hormone,Intact 124 pg/mL (19-88)
[2022-03-11 00:18] LABS: Thiamine (Vitamin B1), WB 127 nmol/L (70-180)
== END 2022-03-07 03:40 | disposition home or self-care (01) ==
LOC: LBO 03:40
PROVIDERS: PCP Student in an Organized Health Care Education/Training Program; Visit Provider Student in an Organized Health Care Education/Training Program
DX: E83.10 Disorder of iron metabolism, unspecified (principal); K91.2 Postsurgical malabsorption, not elsewhere classified; Z98.84 Bariatric surgery status
CPT/HCPCS: 36415; 80053; 82306; 85027; 82607; 82728; 82746; 83540; 83735; 83970; 84425

== ENCOUNTER → 2022-03-14 01:11 | Outpatient (CLI) | payer OTHER, SELFPAY ==
--- NOTE | 2022-03-14 08:00 | DI.DEXA_ITS ---
Exam(s) XR DEXA BONE DENSITY W/WO JAY EXAM: XR DEXA BONE DENSITY W/WO JAY CLINICAL HISTORY: evaluate bone density 2' high risk,h/o bariatric surgery, malabsorption, TECHNIQUE: COMPARISON: No exams were available for comparison FINDINGS: Lateral Spine Image: Unremarkable. No compression deformities identified. Left hip: Total T-Score: 1.5 Total Z-Score: 2.0 T- and Z-scores: Within normal limits. Lumbar Spine: Total T-Score: 1.0 Total Z-Score: 1.8 T- and Z-scores: Within normal limits. IMPRESSION: No evidence of osteoporosis.
== END ==
PROVIDERS: PCP Student in an Organized Health Care Education/Training Program; Visit Provider Student in an Organized Health Care Education/Training Program
DX: K90.9 Intestinal malabsorption, unspecified (principal); Z91.89 Other specified personal risk factors, not elsewhere classified; Z98.84 Bariatric surgery status; Z13.820 Encounter for screening for osteoporosis
CPT/HCPCS: 77080

== ENCOUNTER 2022-04-05 12:10 | Observation (INO) | payer OTHER, SELFPAY ==
--- NOTE | 2022-04-05 12:15 | RT.EKG_ITS ---
APPROVED REPORT Exam: Resting ECG Reason for Exam: weakness Patient Location: E HR:84 bpm ECG Measurements Heart Rate 84 AXIS MI 154 P 1 QRSd 104 QRS -39 QT 398 T 27 QTc 472 Conclusion Sinus rhythm...normal P axis, V-rate 60- 99 Left axis deviation...QRS axis (-30,-90) Anterior infarct, old...Q >40mS, abnormal ST-T, V2-V5
[2022-04-05 12:16] VITALS: BP 167/107; PULSE 94; RESP 18; O2SAT 96
[2022-04-05 12:51] LABS: Abs Immature Grans 0.01 10^3/uL (0.0-0.06); Absolute Basophil Count 0.06 10^3/uL (0.0-0.2); Absolute Lymphocyte Count 3.26 10^3/uL (1.2-3.4); Absolute Neutrophil Count 4.75 10^3/uL (1.2-6.7); Basophils % 0.7; Eosinophils % 3.3; HCT 36.7 % (36.0-46.0); HGB 12.3 g/dL (11.2-15.7); Immature Grans % 0.1; Lymphocytes % 35.9; MCH 28.4 pg (27.0-33.0); MCHC 33.5 % (32.0-36.0); MCV 85 fL (80-95); MPV 9.3 fL (8.0-11.0); Monocytes % 7.7; Neutrophils % 52.3; Platelet Count 343 10^3/uL (130-400); RBC 4.33 10^6/uL (3.93-5.22); RDW 12.8 % (11.7-14.6); RDW-SD 39.6 fL; WBC 9.08 10^3/uL (4.4-10.8)
[2022-04-05 13:04] VITALS: RESP 16
[2022-04-05 13:20] LABS: ALT 31 U/L (14-59); AST 29 U/L (15-37); Albumin 3.4 g/dL (3.4-5.0); Alkaline Phosphatase 59 U/L (46-116); Anion Gap 3.6 mmol/L (3-11); BUN 23 mg/dL (7-18); Bilirubin, Total 0.4 mg/dL (0.2-1.0); CO2 33.4 mmol/L (21.0-32.0); CREATININE 0.9 mg/dL (0.55-1.02); Calcium 8.9 mg/dL (8.5-10.1); Chloride 102 mmol/L (98-107); Estimated GFR 76.92 (mL/min/1.73m2); Glucose 89 mg/dL (74-106); Magnesium 1.8 mg/dL (1.8-2.4); Potassium 3.1 mmol/L (3.5-5.1); Sodium 139 mmol/L (136-145); TSH (W/Ref FT4) 2.03 uIU/mL (0.36-3.74); Troponin I < 50 ng/L (<or=60)
--- NOTE | 2022-04-05 13:33 | W.ED.GENAD ---
Discharge Plan Disposition Patient Disposition: Admit to [facility] Condition: Stable Condition: Stable Discharge Details Chief Complaint: GenMedical Clinical Impression: Hypoglycemia, Acute hypokalemia Admit Date/Time: 04/05/22 14:26 Admit Provider: Trent Holguin Attending Provider: Trent Holguin Primary Care Provider: Huyen Ramon ED Provider: Saad Recinos Discharge Instructions Activity:: Activity as Tolerated Equipment/Supplies:: No Equipment Needed Diet:: resume Q2H intake Discharge Orders Discharge Orders: Discharge Order (Routine); Ordered 04/06/22 Ordered By: Trent Holguin Discharge Data Discharge Date/Time-TO BE ENTERED AT DEPARTURE: 04/05/22 15:34 Medical Decision Making 1340 --51-year-old female with history of remote gastric bypass, subsequent dumping syndrome, episodes of severe hypoglycemia that required hospitalization in January, returns today with excessive fatigue over the past 1 week with intermittent severe hypoglycemia. On arrival blood sugar in the 70s. Patient feeling fatigued. I have initiated D5 NS. Screening EKG was reviewed and interpreted by me: Please see report, nondiagnostic. Considered anemia, hypothyroidism and electrolyte abnormalities. Labs reviewed and hypokalemia noted. Normal hemoglobin, TSH and troponin. -- Plan to admit for labile blood sugar with severe hypoglycemia and electrolyte abnormalities. I called and spoke with the hospitalist who evaluated the patient and will admit. Care transition to hospitalist, Dr. Holguin, at time of admission. HPI General Mode of arrival: ambulatory. Date/Time Provider Initiated Documentation: 04/05/22 12:11. Limitations to Documentation: no limitations. Information obtained by: patient. HPI Narrative: 51-year-old female with multiple medical problems, status post remote gastric bypass, subsequent dumping syndrome, recent episodes of severe hypoglycemia requiring hospitalization in January, here with chief complaint of severe hypoglycemia. Patient notes over the past week she has been feeling excessive fatigue and has been monitoring her blood sugar closely. She notes frequently she is hypoglycemic as low as in the 30s. Couple days ago a family member had to administer glucagon for severe hypoglycemia and altered mental status. She notes today she continues to have fatigue with some intermittent confusion. Any exertional activities resulted in precipitous decline in glucose. Patient notes she does gets some relief with eating and drinking. Related Data Home Medications Medication Instructions Recorded Confirmed bariatric fusion chewable complete 2 100 ml PO DAILY 12/28/20 04/17/22 Scalp Hair Prosthesis #1 ea 02/03/21 04/17/22 blood sugar diagnostic (Blood #100 ea 04/10/21 04/17/22 Glucose Test strips) glucometer #1 ea 04/21/21 04/17/22 lancets (Comfort Lancets) #100 ea 04/26/21 04/17/22 gabapentin 800 mg tablet 800 mg PO BID #180 tabs 06/06/21 04/17/22 blood-glucose sensor (Dexcom G6 #3 ea 06/17/21 04/17/22 Sensor device) blood-glucose transmitter (Dexcom #1 ea 06/17/21 04/17/22 G6 Transmitter device) hydrochlorothiazide 25 mg tablet 25 mg PO BID PRN edema #180 tabs 07/21/21 04/17/22 glucagon 3 mg/actuation nasal spray 3 mg intranasal ONCE severe 07/22/21 04/17/22 hypoglycemia #1 ea non-adherent bandage 3 X 4 #10 ea 07/23/21 04/17/22 (Non-Stick Pad) amiloride 5 mg tablet 5 mg PO BID #180 tabs 08/25/21 04/17/22 bupropion HCl 300 mg 24 hr tablet, 300 mg PO DAILY #90 tabs 08/25/21 04/17/22 extended release (Wellbutrin XL) omeprazole 40 mg capsule,delayed 40 mg PO DAILY #90 tabs 08/25/21 04/17/22 release blood-glucose meter,continuous #1 ea 09/10/21 04/17/22 (Dexcom G6 Cokeman) venlafaxine 75 mg tablet 75 mg PO BID #180 tabs 11/30/21 04/17/22 triamcinolone acetonide 0.5 % 1 applic topical PRN PRN 02/08/22 04/17/22 topical ointment blood sugar diagnostic (Blood #350 ea 03/29/22 04/17/22 Glucose Test strips) potassium chloride 20 mEq 20 meq PO PRN PRN hypokalemia #30 04/05/22 04/17/22 tablet,extended release tabs pramipexole 0.25 mg tablet 0.25 mg PO BID #180 tabs 04/07/22 04/17/22 acarbose 25 mg tablet 25 mg PO TID 04/13/22 04/17/22 Previous Rx's Medication Instructions Recorded Scalp Hair Prosthesis #1 ea 02/03/21 blood sugar diagnostic (Blood #100 ea 04/10/21 Glucose Test strips) glucometer #1 ea 04/21/21 lancets (Comfort Lancets) #100 ea 04/26/21 gabapentin 800 mg tablet 800 mg PO BID #180 tabs 06/06/21 blood-glucose sensor (Dexcom G6 #3 ea 06/17/21 Sensor device) blood-glucose transmitter (Dexcom #1 ea 06/17/21 G6 Transmitter device) hydrochlorothiazide 25 mg tablet 25 mg PO BID PRN edema #180 tabs 07/21/21 glucagon 3 mg/actuation nasal spray 3 mg intranasal ONCE severe 07/22/21 hypoglycemia #1 ea non-adherent bandage 3 X 4 #10 ea 07/23/21 (Non-Stick Pad) amiloride 5 mg tablet 5 mg PO BID #180 tabs 08/25/21 bupropion HCl 300 mg 24 hr tablet, 300 mg PO DAILY #90 tabs 08/25/21 extended release (Wellbutrin XL) omeprazole 40 mg capsule,delayed 40 mg PO DAILY #90 tabs 08/25/21 release blood-glucose meter,continuous #1 ea 09/10/21 (Dexcom G6 Cokeman) venlafaxine 75 mg tablet 75 mg PO BID #180 tabs 11/30/21 blood sugar diagnostic (Blood #350 ea 03/29/22 Glucose Test strips) potassium chloride 20 mEq 20 meq PO PRN PRN hypokalemia #30 04/05/22 tablet,extended release tabs pramipexole 0.25 mg tablet 0.25 mg PO BID #180 tabs 04/07/22 Allergies Allergy/AdvReac Type Severity Reaction Status Date / Time atropine Allergy Intermediate HIVES, Verified 04/17/22 09:13 SWOLLEN spironolactone Allergy Intermediate Skin Rash Verified 04/17/22 09:13 eplerenone AdvReac Intermediate swelling; Verified 04/17/22 09:13 SOB iron [From Venofer] AdvReac Intermediate Swelling/Ed Verified 04/17/22 09:13 brandon General Stated Complaint: GenMedical JOBY: 3 PFSH All Active Problems (Updated 04/27/22 @ 09:15 by Saad Recinos MD) Hypoglycemia (Acute) Acute hypokalemia (Acute) Disorder of iron metabolism (Acute) [place] [facility] [place] Elevated PTHrP level (Acute) Per 03/22/22 [facility] [place] Post-resection malabsorption (Acute) Per 03/22/22 [facility] [place] Hyperparathyroidism (Acute) Postprandial hypoglycemia (Acute) PP Hyperinsulinemic hypogly Dx per [facility] [place] ([place]). 04/2022. per observation and tel d/w Dr. Ortega (future Endo, [facility]).. vs exercise-induced Hypoglycemia (Acute) Heel lesion (Acute) Right heel, cracked skin .. inner foot tenderness .. out of proportion tenderness .. possible assoc with fever? (improved with soaking, but not closing) Fever (Acute) Over 1 week; T 103/102/99; Neg COVID; Awaiting Flu Status post bariatric surgery (Acute) Successful weight loss, but dangerous, symptomatic HYPOglycemia [neg dumping syndrome per [facility]] SARS-CoV-2 positive (Acute ~10/26/21) Pelvic pain (Acute) Dysmenorrhea (Acute) Trigg exposure (Acute) Dtr (+) .. Sore Throat, lab [ ] Skin lesion (Acute) Mild wound, 2' probable abd intertrigo. Dumping syndrome (Acute 04/12/21) NOT per Bariatric Team.. Dx [place] [facility] [place] [facility] [place] re-eval as NEG for dumping syndrome, 05/2021 Scab of knee (Acute) fell last week, rough/dry scab, but irritated .. Trial debride @ home, consider surgtery if tender. Facial twitching (Acute) Nodule of left lung (Acute) 3mm, incidental finding, LLL (12/2020 CT). [ ] 6 mo FU.. Paresthesias (Acute) Hypotension (Acute) post gastric bypass ... lowering ACEi, BB, CCB. DIuretics in place 2' LE edema (albeit improved). Depressive disorder (Chronic 05/23/11) Wellbutrin 2012, discon 12/2012, restart 05/2013 Hx of Marylou thyroiditis (Acute) Complicated grieving (Acute) Her basically healthy mo due to COVID19 infection. She was intubated within days of becoming sick, sending out a cheerful text 4 days beforehand! Monisha has cancelled the trip just before flights, etc were shut down; she was originally worried for her fa 2' health issues and dementia. Close-knit family; inability for gathering for .. video/webexed with family in [place] (mo in Fl). Imbalance (Acute) Cervical radiculopathy (Acute) Hematuria (Acute) Other seborrheic keratosis (Acute) Hypomagnesemia (Acute) Leg edema (Acute) Flash pulmonary edema (Acute) Lymphedema (Chronic) referring to PT for evaluation and recommendations.. Bunion (Acute) 12/24/18-nelson Yarbrough DPM Sustained VT (ventricular tachycardia) (Acute) during hypokalemia episode Abnormal serum creatinine level (Acute 07/2018) Serious Creatinine elevation, with resolution between episodes of dehydration .. Fatty liver (Acute) 10/02/18 Dr Schroeder/[facility] Angioedema (Acute) 10/02/18 Dr Schroeder/[facility] Flushing (Acute) 10/02/18 Dr Schroeder/[facility] Out of work (Acute 08/21/18) Recommend continuation of reduced hours due to continued electrolyte imbalances, fatigue and metabolic disorder. Unclear etiology makes it difficult to create a clear treatment plan, which in turn, makes routine and FT work difficult to manage. Revised [facility] Ppwk (06/2019). Solid, intermittent improvements, but unpredictable. 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 10/30/18, mian. I support time off from work due to continued electrolyte imbalances which cannot be explained. Re-referring [place] [facility] [place] well as [facility] Elevated plasma metanephrines (Acute 08/2018) Ordered by [place], [place] (Abd) [ ] ... follow up with Endo week of October 07. 08/2018, mian Kidney stone (Acute 02/27/12) Migraine headache with aura (Chronic) DR. VALDEZ 08/29/11 TopHeliae works Vertigo and/or pain Uterine leiomyoma (Chronic 11/02/15) On pelvic ultrasound uterus enlarged approximate 13 cm. 08/04/2021 pelvic pain radiating from back. Serrated adenoma of colon (Acute 07/07/15) Dr. Contreras, sessile colonic polyp, inflammatory polyp Sensorineural hearing loss, bilateral (Chronic 11/01/17) Restless leg (Acute 03/31/15) Some relief with iron infusion (albeit reaction to infusion), 05/2018. 06/16/19 f/u at sleep clinic Reflux esophagitis (Acute 07/07/15) Dr. Contreras gastritis Rectal bleeding (Acute 03/02/15) Episodic - Was diagnosed with AVM's Premenstrual dysphoric disorder (Acute 11/10/14) Gabriel Henderson MD [facility] Positive TG (antinuclear antibody) (Acute 06/07/15) Mgrn w aura w intrc mgrn (Acute 09/05/11) DR. VALDEZ 08/29/11 Topamax works Vertigo and/or pain Mgrn wo aura wo ntrc mgr (Acute 09/05/11) DR. VALDEZ 08/29/11 Topamax works Vertigo and/or pain Incomplete tear of left rotator cuff (Acute 05/31/16) Diarrhea (Acute 10/29/15) Chronic, secretory .. s/p multiple [place], Bx. Trial cholestyramine, 10/2018, mian planned. Alopecia areata (Acute 05/23/11) Dx'ed 1990s Hair prosthesis Medical History Alopecia Anemia Class 3 severe obesity due to excess calories with body mass index (BMI) of 40.0 to 44.9 in adult 07/31/19 [facility] Dehydration (~08/21/18) Several episodes now .. She can almost gauge her K levels based on mm weakness. [ ] BMP [ ] IVF-KCl Bolus-K have helped with hypokalemia in between bouts of diarrhea/dehydration when IVF not needed. 09/2018, mian Depression Diabetes mellitus type 2 in obese Improved s/p bariatric surgery and wt loss BUT HYPOglycemia Essential hypertension (12/05/12) Elevated BPs, especially DBP. Hx high BP since of twins (20yrs), noted in Nephro note (2017). HCTZ used x years for HTN & Edema. Spirono not tolerated (Hives/Flush). Trial Eplerenone, 10/09/18, mian Unable to tolerate eplerenone, angioedema-like reactions to K-sparing diuretics.. 09/2018, mian GERD (gastroesophageal reflux disease) Marylou's thyroiditis Hx of adenomatous colonic polyps Hypokalemia (11/07/16) Chronic, possible 2' IBS/Diarrhea. Continued despite GI improvements, albeit improved. Trial Eplerenone, to be followed by HCTZ decrease. 10/09/18 Intermittent improvement, but unsteady and unpredictable .. Monisha seems unable to maintain her own K levels WNL w/o bolus/infusions at this time. Unable to tolerate K-sparing diuretics. Cont to research, evaluate, consult .. 09/2018, ik Impaired fasting glucose (02/11/14) A1C 6.1% 12/2012 .. A1C 5.8 07/04/18. Irritable bowel syndrome diarrhea predominant Preeclampsia Rectal hemorrhage (03/02/15) Reflux esophagitis Surgical History section x3 Colonoscopy - MAC (03/16/14) w/ bx 2015-serrated adenomatous polyp EGD - MAC 2015 Endometrial Ablation 2007 2012 H/O colonoscopy (12/05/17) History of esophagogastroduodenoscopy (EGD) (12/05/17) History of Nadia-en-Y gastric bypass (~11/2019) Tonsillectomy Family History Mother Pulmonary hypertension Heart disease valve replacement Father Prostate cancer Essential hypertension Parkinsons Sister Uterine cancer Brother No problems noted. Other Colon cancer Social History Smoking/Tobacco Use Status: Never Smoking risk assessment performed?: Yes Alcohol Intake: current Alcohol Intake frequency: holidays/special occasions only Alcohol type: wine Drug use: Never Substance use type: does not use Adopted: No Caregiver/Support person: No Household members: spouse and other Details: Partner - Jayne, children Housing: house Number of Children: 4 number of grandchildren: 0 Communication Needs: Corrective Lenses Education Level: college current occupation: Daily today tested negative on this on the testing day negative negative di Pets and animals: Yes Pets and animals: cat(s) and dog(s) Sexually active: Yes Do you think of yourself as: lesbian/peña/homosexual Current gender identity: female What is your relationship status?: living with partner Panel score (0-1 are the most socially isolated patients): 1 What type of physical activity do you participate in: walking Duration: 15-30 minutes/day Frequency: 3-4 times per week Seatbelt use: always Working smoke detector in home: Yes Fire extinguisher in home: Yes Carbon monox detector in home: Yes Firearms in home: No Do you feel safe at home: Yes Do you feel safe in your relationship?: Yes Female Reproductive History Menstrual control method: permanent sterilization History History 3 Para 4 Hx # Term Pregnancies Multiple births 1 Hx # Pregnancies Ectopic pregnancies AB induced Hx Number of Living Children AB spontaneous Exam Const General: cooperative and no acute distress HENMT Mouth: moist mucous membranes Eyes Conjunctivae: normal conjunctivae Sclera: normal sclerae Neck Neck: trachea midline and supple Resp Auscultation: clear to auscultation bilaterally, no rales, no rhonchi and no wheezes Cardio Rate: regular rate and not tachycardic Rhythm: regular rhythm GI Palpation: soft, not firm, no guarding, no masses, not rigid and nontender Skin General skin exam: no rashes or lesions noted Neuro General: patient alert, patient awake, patient oriented x3 and tone normal Other: slowed thought process Extrem General: no edema Psych Appearance: grossly normal Speech and Movement: speech and movement normal Course Vital Signs Vital signs: Vital Signs Pulse 94 H 04/05/22 12:16 Respiratory Rate 18 04/05/22 12:16 Blood Pressure 167/107 H 04/05/22 12:16 Pulse Oximetry 96 04/05/22 12:16 Temperature Source Skin 04/05/22 12:16 Pulse 94 H 04/05/22 12:16 Respiratory Rate 16 04/05/22 13:04 Respiratory Effort Non-Labored 04/05/22 13:04 Respiratory Depth Normal 04/05/22 13:04 Respiratory Pattern Normal 04/05/22 13:04 Blood Pressure 167/107 H 04/05/22 12:16 Blood Pressure Position Supine 04/05/22 12:16 Pulse Oximetry 96 04/05/22 12:16 Oxygen Delivery Method Room Air 04/05/22 12:16 Oxygen Flow Rate 0 04/05/22 12:16 Pain Level 0 04/05/22 12:16 Lab/Test Results Lab/Test Results: Laboratory Tests Range/Units 04/05/22 04/05/2204/05/23 12:45 12:45 12:45 WBC (4.4-10.8) 10^3/uL 9.08 RBC (3.93-5.22) 10^6/uL 4.33 Hgb (11.2-15.7) g/dL 12.3 Hct (36.0-46.0) % 36.7 MCV (80-95) fL 85 MCH (27.0-33.0) pg 28.4 MCHC (32.0-36.0) % 33.5 RDW (11.7-14.6) % 12.8 Plt Count (130-400) 10^3/uL 343 MPV (8.0-11.0) fL 9.3 Immature Gran % 0.1 Neutrophils % 52.3 Lymphocytes % 35.9 Monocytes % 7.7 Eosinophils % 3.3 Basophils % 0.7 Nucleated RBC % (0.0-0.3) % 0.0 Absolute Neutrophils (1.2-6.7) 10^3/uL 4.75 Absolute Lymphocytes (1.2-3.4) 10^3/uL 3.26 Absolute Monocytes (0.1-0.8) 10^3/uL 0.70 Absolute Eosinophils (0.0-0.7) 10^3/uL 0.30 Absolute Basophils (0.0-0.2) 10^3/uL 0.06 Sodium (136-145) mmol/L 139 Potassium (3.5-5.1) mmol/L 3.1 L Chloride (98-107) mmol/L 102 Carbon Dioxide (21.0-32.0) mmol/L 33.4 H Anion Gap (3-11) mmol/L 3.6 BUN (7-18) mg/dL 23 H Creatinine (0.55-1.02) mg/dL 0.9 Est GFR (CKD-EPI 2020) (mL/min/1.73m2) 76.92 Glucose (74-106) mg/dL 89 Calcium (8.5-10.1) mg/dL 8.9 Magnesium (1.8-2.4) mg/dL 1.8 Total Bilirubin (0.2-1.0) mg/dL 0.4 AST (15-37) U/L 29 ALT (14-59) U/L 31 Alkaline Phosphatase (46-116) U/L 59 Troponin I (<or=60) ng/L < 50 Total Protein (6.4-8.2) g/dL 7.0 Albumin (3.4-5.0) g/dL 3.4 TSH (0.36-3.74) uIU/mL 2.03 Cancelled
[2022-04-05] MEDS: Acetaminophen 325 MG TAB PO (14:50)
[2022-04-05 16:11] VITALS: BP 165/110; PULSE 80; RESP 16; TEMP 36.6; O2SAT 95
[2022-04-05 16:18] VITALS: BP 165/110; PULSE 80; RESP 16; TEMP 36.6; O2SAT 95
[2022-04-05] MEDS: Potassium Chloride 20 MEQ TABCR PO (17:27)
--- NOTE | 2022-04-05 17:44 | HPE_ITS ---
Date of service: 04/05/22 Time of Service: 17:45 Assessment and Plan Assessment and plan (1) Hypoglycemia: Status: Acute Assessment and plan: Recurrent. Will have pt keep a food diary. Monitor glucose with her CGM. If it alerts for low glucose or she is symptomatic with what could be hypoglycemia, check glucose. Stopping D5 infusion initiated in ED. Insulinoma ruled out at time of previous admission with normal C-peptide and serum insulin levels. (2) Status post bariatric surgery: Status: Acute Assessment and plan: Recently had f/u with [facility] at [facility]ariatric surgery group. They had no specific further workup or ideas regarding her hypoglycemia. History of Present Illness History of Present Illness Chief Complaint: Hypoglycemia Narrative: This is a 51 yo female s/p gastric bypass surgery in 2019, depression, kristin's thyroiditis, hepatic steatosis, nephrolithiasis, migraine DYER. She presented to the ED with c/o frequent hypoglycemia with symptoms. She was admitted to [facility] on 02/13/22 and discharged on 02/15/22 and againe admitted on 02/16/22, discharged on 02/18/22 each time for hypoglycemia. She has a continuous glucose monitor that has been alerting her of hypoglycemic episodes. They have occurred during the day as well as in the night. She endorses eating every 2 hours. This had been a recurring problem since her gastric by-pass surg alfred. 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 She previously had normal C-peptide and insulin levels. No recent fever, abd pain, N/V. Review of Systems All systems reviewed & are unremarkable except as noted in HPI and below PFSH All Active Problems Disorder of iron metabolism (Acute) Per 03/22/22 [facility] Gen surgery note Elevated PTHrP level (Acute) Per 03/22/22 [facility] Gen surgery note Post-resection malabsorption (Acute) Per 03/22/22 [facility] Gen surgery note Hyperparathyroidism (Acute) Postprandial hypoglycemia (Acute) per observation and tel d/w Dr. Ortega (future Endo, Valerio).. vs exercise- induced Hypoglycemia (Acute) Heel lesion (Acute) Right heel, cracked skin .. inner foot tenderness .. out of proportion tenderness .. possible assoc with fever? (improved with soaking, but not closing) Fever (Acute) Over 1 week; T 103/102/99; Neg COVID; Awaiting Flu Status post bariatric surgery (Acute) Successful weight loss, but dangerous, symptomatic HYPOglycemia [neg dumping syndrome per [facility]] SARS-CoV-2 positive (Acute ~10/26/21) Pelvic pain (Acute) Dysmenorrhea (Acute) Hickman exposure (Acute) Dtr (+) .. Sore Throat, lab [ ] Skin lesion (Acute) Mild wound, 2' probable abd intertrigo. Dumping syndrome (Acute 04/12/21) NOT per Bariatric Team.. Dx per [facility] Endo .. [facility] Bariatric Team re-eval as NEG for dumping syndrome, 05/2021 Scab of knee (Acute) fell last week, rough/dry scab, but irritated .. Trial debride @ home, consider surgtery if tender. Facial twitching (Acute) Nodule of left lung (Acute) 3mm, incidental finding, LLL (12/2020 CT). [ ] 6 mo FU.. Paresthesias (Acute) Hypotension (Acute) post gastric bypass ... lowering ACEi, BB, CCB. DIuretics in place 2' LE edema (albeit improved). Depressive disorder (Chronic 05/23/11) Wellbutrin 2012, discon 12/2012, restart 05/2013 Hx of Kristin thyroiditis (Acute) Complicated grieving (Acute) Her basically healthy mo due to COVID19 infection. She was intubated within days of becoming sick, sending out a cheerful text 4 days beforehand! Monisha has cancelled the trip just before flights, etc were shut down; she was originally worried for her fa 2' health issues and dementia. Close-knit family; inability for gathering for .. video/webexed with family in [facility] ([place] in [place]). Imbalance (Acute) Cervical radiculopathy (Acute) Hematuria (Acute) Other seborrheic keratosis (Acute) Hypomagnesemia (Acute) Leg edema (Acute) Flash pulmonary edema (Acute) Lymphedema (Chronic) referring to PT for evaluation and recommendations.. Bunion (Acute) 12/24/18-nelson Yarbrough DPM Sustained VT (ventricular tachycardia) (Acute) during hypokalemia episode Abnormal serum creatinine level (Acute 07/2018) Serious Creatinine elevation, with resolution between episodes of dehydration .. Fatty liver (Acute) 10/02/18 Dr Schroeder/[facility] Angioedema (Acute) 10/02/18 Dr Schroeder/[facility] Flushing (Acute) 10/02/18 Dr Schroeder/[facility] Out of work (Acute 08/21/18) Recommend continuation of reduced hours due to continued electrolyte imbalances, fatigue and metabolic disorder. Unclear etiology makes it difficult to create a clear treatment plan, which in turn, makes routine and FT work difficult to manage. Revised [employer] Ppwk (06/2019). Solid, intermittent improvements, but unpredictable. 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 10/30/18, mian. I support time off from work due to continued electrolyte imbalances which cannot be explained. Re-referring to specialists @ [facility] as well as [facility]. Elevated plasma metanephrines (Acute 08/2018) Ordered by Endo, CT (Abd) [ ] ... follow up with Endo week of October 07. 08/2018, mian Kidney stone (Acute 02/27/12) Migraine headache with aura (Chronic) DR. VALDEZ 08/29/11 Topamax works Vertigo and/or pain Uterine leiomyoma (Chronic 11/02/15) On pelvic ultrasound uterus enlarged approximate 13 cm. 08/04/2021 pelvic pain radiating from back. Serrated adenoma of colon (Acute 07/07/15) Dr. Contreras, sessile colonic polyp, inflammatory polyp Sensorineural hearing loss, bilateral (Chronic 11/01/17) Restless leg (Acute 03/31/15) Some relief with iron infusion (albeit reaction to infusion), 05/2018. 06/16/19 f/u at sleep clinic Reflux esophagitis (Acute 07/07/15) Dr. Contreras gastritis Rectal bleeding (Acute 03/02/15) Episodic - Was diagnosed with AVM's Premenstrual dysphoric disorder (Acute 11/10/14) Gabriel Henderson MD [place] Positive TG (antinuclear antibody) (Acute 06/07/15) Mgrn w aura w intrc mgrn (Acute 09/05/11) DR. VALDEZ 08/29/11 Topamax works Vertigo and/or pain Mgrn wo aura wo ntrc mgr (Acute 09/05/11) DR. VALDEZ 08/29/11 [employer] works Vertigo and/or pain Incomplete tear of left rotator cuff (Acute 05/31/16) Diarrhea (Acute 10/29/15) Chronic, secretory .. s/p multiple [place], Bx. Trial cholestyramine, 10/2018, mian planned. Alopecia areata (Acute 05/23/11) Dx'ed 1990s Hair prosthesis Medical History Alopecia Anemia Class 3 severe obesity due to excess calories with body mass index (BMI) of 40.0 to 44.9 in adult 07/31/19 [facility] Dehydration (~08/21/18) Several episodes now .. She can almost gauge her K levels based on mm weakness. [ ] BMP [ ] IVF-KCl Bolus-K have helped with hypokalemia in between bouts of diarrhea/dehydration when IVF not needed. 09/2018, mian Depression Diabetes mellitus type 2 in obese Improved s/p bariatric surgery and wt loss BUT HYPOglycemia Essential hypertension (12/05/12) Elevated BPs, especially DBP. Hx high BP since of twins (20yrs), noted in Nephro note (2017). HCTZ used x years for HTN & Edema. Spirono not tolerated (Hives/Flush). Trial Eplerenone, 10/09/18, mian Unable to tolerate eplerenone, angioedema-like reactions to K-sparing diuretics.. 09/2018, mian GERD (gastroesophageal reflux disease) Kristin's thyroiditis Hx of adenomatous colonic polyps Hypokalemia (11/07/16) Chronic, possible 2' IBS/Diarrhea. Continued despite GI improvements, albeit improved. Trial Eplerenone, to be followed by HCTZ decrease. 10/09/18 Intermittent improvement, but unsteady and unpredictable .. Monisha seems unable to maintain her own K levels WNL w/o bolus/infusions at this time. Unable to tolerate K-sparing diuretics. Cont to research, evaluate, consult . . 09/2018, mian Impaired fasting glucose (02/11/14) A1C 6.1% 12/2012 .. A1C 5.8 07/04/18. Irritable bowel syndrome diarrhea predominant Preeclampsia Rectal hemorrhage (03/02/15) Reflux esophagitis Surgical History section x3 Colonoscopy - MAC (03/16/14) w/ bx 2016-serrated adenomatous polyp EGD - MAC 2015 Endometrial Ablation 2007 2012 H/O colonoscopy (12/05/17) History of esophagogastroduodenoscopy (EGD) (12/05/17) History of Nadia-en-Y gastric bypass (~11/2019) Tonsillectomy Family History Mother Pulmonary hypertension Heart disease valve replacement Father Prostate cancer Essential hypertension Parkinsons Sister Uterine cancer Brother No problems noted. Other Colon cancer Social History Smoking/Tobacco Use Status: Never Smoking risk assessment performed?: Yes Alcohol Intake: current Alcohol Intake frequency: holidays/special occasions only Alcohol type: wine Drug use: Never Substance use type: does not use Adopted: No Caregiver/Support person: No Household members: spouse and other Details: Partner - Jayne, children Housing: house Number of Children: 4 number of grandchildren: 0 Communication Needs: Corrective Lenses Education Level: college current occupation: Daily today tested negative on this on the testing day negative negative di Pets and animals: Yes Pets and animals: cat(s) and dog(s) Sexually active: Yes Do you think of yourself as: lesbian/peña/homosexual Current gender identity: female What is your relationship status?: living with partner Panel score (0-1 are the most socially isolated patients): 1 What type of physical activity do you participate in: walking Duration: 15-30 minutes/day Frequency: 3-4 times per week Seatbelt use: always Working smoke detector in home: Yes Fire extinguisher in home: Yes Carbon monox detector in home: Yes Firearms in home: No Do you feel safe at home: Yes Do you feel safe in your relationship?: Yes Female Reproductive History Menstrual control method: permanent sterilization History History 3 Para 4 Hx # Term Pregnancies Multiple births 1 Hx # Pregnancies Ectopic pregnancies AB induced Hx Number of Living Children AB spontaneous Meds Allergies and Home Medications Allergies Allergy/AdvReac Type Severity Reaction Status Date / Time atropine Allergy Intermediate HIVES, Verified 04/05/22 12:20 SWOLLEN spironolactone Allergy Intermediate Skin Rash Verified 04/05/22 12:20 eplerenone AdvReac Intermediate swelling; Verified 04/05/22 12:20 SOB iron [From Venofer] AdvReac Intermediate Swelling/Ed Verified 04/05/22 12:20 brandon Home Medications Medication Instructions Recorded Confirmed Type Hair Prosthesis #1 ea 05/19/15 02/13/22 Clinic bariatric fusion chewable complete 2 100 ml PO DAILY 12/28/20 02/17/22 History Scalp Hair Prosthesis #1 ea 02/03/21 02/17/22 Rx blood sugar diagnostic (Blood #100 ea 04/10/21 02/17/22 Rx Glucose Test strips) glucometer #1 ea 04/21/21 02/17/22 Rx lancets (Comfort Lancets) #100 ea 04/26/21 02/17/22 Rx pramipexole 0.25 mg tablet 0.25 mg PO BID #180 tabs 04/27/21 04/05/22 Rx gabapentin 800 mg tablet 800 mg PO BID #180 tabs 06/06/21 04/05/22 Rx blood-glucose sensor (Dexcom G6 #3 ea 06/17/21 02/17/22 Rx Sensor device) blood-glucose transmitter (Dexcom #1 ea 06/17/21 02/17/22 Rx G6 Transmitter device) hydrochlorothiazide 25 mg tablet 25 mg PO BID PRN edema #180 tabs 07/21/2104/05 Rx glucagon 3 mg/actuation nasal spray 3 mg intranasal ONCE severe 07/22/21 04/05/22 Rx hypoglycemia #1 ea non-adherent bandage 3 X 4 #10 ea 07/23/21 02/17/22 Rx (Non-Stick Pad) amiloride 5 mg tablet 5 mg PO BID #180 tabs 08/25/21 04/05/22 Rx bupropion HCl 300 mg 24 hr tablet, 300 mg PO DAILY #90 tabs 08/25/21 04/05/22 Rx extended release (Wellbutrin XL) omeprazole 40 mg capsule,delayed 40 mg PO DAILY #90 tabs 08/25/21 04/05/22 Rx release blood-glucose meter,continuous #1 ea 09/10/21 02/17/22 Rx (Dexcom G6 Media Promoter misc) venlafaxine 75 mg tablet 75 mg PO BID #180 tabs 11/30/21 04/05/22 Rx potassium chloride 20 mEq 20 meq PO PRN PRN hypokalemia 02/08/22 04/05/22 History tablet,extended release triamcinolone acetonide 0.5 % 1 applic topical PRN PRN 02/08/22 04/05/22 History topical ointment blood sugar diagnostic (Blood #350 ea 03/29/22 Rx Glucose Test strips) Exam Narrative Exam Narrative: Pleasant and conversant. Const General: cooperative, no acute distress and well groomed Nutritional Appearance: overweight Orientation: oriented x3 Eyes General: appearance normal, both eyes and all related structures Sclera: sclerae normal Resp Effort & Inspection: normal respiratory effort Auscultation: clear to auscultation bilaterally Cardio Rate: regular rate Rhythm: regular rhythm Heart Sounds: S1 normal and S2 normal GI Palpation: soft and nontender Skin General skin exam: no rashes or lesions noted Extrem General: no pedal edema and no calf tenderness Psych Appearance: grossly normal Speech and Movement: speech clear Mood: congruent mood Affect: normal affect Results Labs Result diagrams: 04/05/22 12:45 04/05/22 12:45 Labs: Laboratory Results - last 24 hr 04/05/22 04/05/22 04/05/22 12:45 12:45 12:45 WBC 9.08 RBC 4.33 Hgb 12.3 Hct 36.7 MCV 85 MCH 28.4 MCHC 33.5 RDW 12.8 Plt Count 343 MPV 9.3 Immature Gran % 0.1 Neutrophils % 52.3 Lymphocytes % 35.9 Monocytes % 7.7 Eosinophils % 3.3 Basophils % 0.7 Nucleated RBC % 0.0 Absolute Neutrophils 4.75 Absolute Lymphocytes 3.26 Absolute Monocytes 0.70 Absolute Eosinophils 0.30 Absolute Basophils 0.06 Sodium 139 Potassium 3.1 L Chloride 102 Carbon Dioxide 33.4 H Anion Gap 3.6 BUN 23 H Creatinine 0.9 Est GFR (CKD-EPI 2020) 76.92 Glucose 89 Calcium 8.9 Magnesium 1.8 Total Bilirubin 0.4 AST 29 ALT 31 Alkaline Phosphatase 59 Troponin I < 50 Total Protein 7.0 Albumin 3.4 TSH 2.03 Cancelled Last Vital Signs Temp 36.6 C 04/05/22 16:18 Pulse 80 04/05/22 16:18 Resp 16 04/05/22 16:18 BP 165/110 H 04/05/22 16:18 Pulse Ox 95 04/05/22 16:18 Time Spent Time spent with Patient: <40 minutes Time was spent: preparing to see the patient(eg.review tests), obtaining and/or reviewing separately otained hiistory, ordering medications,tests, procedures, indepentently interpreting results and counseling the patient
[2022-04-05] MEDS: Gabapentin 800 MG TAB PO (23:04)
[2022-04-05 23:38] VITALS: BP 151/102; PULSE 87; RESP 18; TEMP 36; O2SAT 98
[2022-04-06 06:37] VITALS: BP 153/100; PULSE 76; RESP 16; TEMP 36.2; O2SAT 97
[2022-04-06 07:10] LABS: Anion Gap 7.3 mmol/L (3-11); BUN 25 mg/dL (7-18); CO2 32.7 mmol/L (21.0-32.0); Calcium 8.6 mg/dL (8.5-10.1); Chloride 103 mmol/L (98-107); Estimated GFR 67.78 (mL/min/1.73m2); Glucose 103 mg/dL (74-106); Sodium 143 mmol/L (136-145)
[2022-04-06] MEDS: Venlafaxine 75 MG TAB PO (07:41)
[2022-04-06] MEDS: buPROPion-CR 150 MG TABCR 300 MG PO (07:41)
[2022-04-06] MEDS: Potassium Chloride 20 MEQ TABCR 40 MEQ PO (07:41)
[2022-04-06] MEDS: Normal Saline Flush 10 ML SYR IVP (07:41)
[2022-04-06] MEDS: Omeprazole 20 MG CAPCR 40 MG PO (07:41)
[2022-04-06] MEDS: aMILoride HCL 5 MG TAB PO (08:55)
--- NOTE | 2022-04-06 09:58 | PDOC.CMIN ---
- If Service Date Differs Date of service: 04/06/22 Time of Service: 09:58 Care Management Initial Assess REASON FOR HOSPITALIZATION:: Hypoglycemia PAST MEDICAL HISTORY/PAST SURGICAL HISTORY:: Medical History . Alopecia. Anemia. Class 3 severe obesity due to excess calories with body mass index (BMI) of 40.0 to 44.9 in adult. 07/31/19 [facility]. Dehydration (~08/21/18). Several episodes now .. She can almost gauge her K levels based on mm weakness. [ ] BMP [ ] IVF-KCl Bolus-K have helped with hypokalemia in between bouts of diarrhea/dehydration when IVF not needed. 09/2018, mian. Depression. Diabetes mellitus type 2 in obese. Improved s/p bariatric surgery and wt loss BUT HYPOglycemia. Essential hypertension (12/05/12). Elevated BPs, especially DBP. Hx high BP since of twins (20yrs), noted in Nephro note (2016). HCTZ used x years for HTN & Edema. Spirono not tolerated (Hives/Flush). Trial Eplerenone, 10/09/18, ik Unable to tolerate eplerenone, angioedema-like reactions to K-sparing diuretics.. 09/2018, ik. GERD (gastroesophageal reflux disease). Marylou's thyroiditis. Hx of adenomatous colonic polyps. Hypokalemia (11/07/16). Chronic, possible 2' IBS/Diarrhea. Continued despite GI improvements, albeit improved. Trial Eplerenone, to be followed by HCTZ decrease. 10/09/18 Intermittent improvement, but unsteady and unpredictable .. Monisha seems unable to maintain her own K levels WNL w/o bolus/infusions at this time. Unable to tolerate K-sparing diuretics. Cont to research, evaluate, consult .. 09/2018, mian. Impaired fasting glucose (02/11/14). A1C 6.1% 12/2012 .. A1C 5.8 07/04/18. Irritable bowel syndrome. diarrhea predominant. Preeclampsia. Rectal hemorrhage (03/02/15). Reflux esophagitis. Surgical History . section. x3. Colonoscopy - MAC (03/16/14). w/ bx. 2016-serrated adenomatous polyp. EGD - MAC. 2016. Endometrial Ablation. 2007. 2012. H/O colonoscopy (12/05/17). History of esophagogastroduodenoscopy (EGD) (12/05/17). History of Nadia-en-Y gastric bypass (~11/2019). Tonsillectomy PREVIOUS FUNCTIONAL STATUS/SOCIAL/FAMILY SUPPORTS:: Monisha lives in an apartment [place], [place] with her Jayne and 2 daughters. She and Jayne have a blended family and they both have other adult children who live outside the home. 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 She is independent at baseline and does not receive any community services. ADVANCE DIRECTIVES:: On file. Jayne Busch () [facility] Has patient been provided with info about the portal/API?: Yes Did the patient sign up for the portal?: Yes CODE STATUS:: Full Code INSURANCE COVERAGE / FINANCIAL ISSUES:: [employer] PRIMARY CARE PHYSICIAN:: Huyen Ramon POTENTIAL DISCHARGE NEEDS:: Follow up with PCP and plan of care PATIENT/FAMILY EDUCATION NEEDS:: Review of discharge instructions, limitations, activity, follow up plan, Ask Me Three ANTICIPATED BARRIERS TO DISCHARGE:: Review of discharge instructions, limitations, activity, follow up plan, Ask Me Three TRANSPORTATION:: Via private vehicle with family PLAN:: Monisha will likely be discharged home with no new services when medically cleared by provider. She will follow up with her community providers and plan of care and transport with family. CM will follow and assess for ongoing discharge needs.
[2022-04-06] MEDS: Gabapentin 800 MG TAB PO (11:42)
[2022-04-06] MEDS: Pramipexole 0.25 MG TAB PO (11:42)
[2022-04-06 15:29] VITALS: BP 134/89; PULSE 81; RESP 16; TEMP 36.6; O2SAT 98
--- NOTE | 2022-04-06 16:53 | CHAPLAIN ---
Monisha, an [employer] employee, was reading in bed when I visited. She is always pleasant and easily engages in conversation. 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
--- NOTE | 2022-04-06 17:15 | DSE_ITS ---
Date of service: 04/06/22 Time of Service: 17:15 DS: Diagnosis Discharge Diagnosis (1) Hypoglycemia: Status: Acute (2) Status post bariatric surgery: Status: Acute Discharge Plan Disposition Patient Disposition: Home Condition: Stable Discharge Details Reason For Visit: Hypoglycemia Admit Date/Time: 04/05/22 14:26 Admit Provider: Trent Holguin Attending Provider: Trent Holguin Primary Care Provider: Huyen Ramon Hospital Course Hospital Course: This is a 51 yo female s/p gastric bypass surgery in 2019, depression, kristin's thyroiditis, hepatic steatosis, nephrolithiasis, migraine DYER.? She presented to the ED with c/o frequent hypoglycemia with symptoms. She was admitted to [facility] on 02/13/22 and discharged on 02/15/22 and againe admitted on 02/16/22, discharged on 02/18/22 each time for hypoglycemia.? She has a continuous glucose monitor that has been alerting her of hypoglycemic episodes.? They have occurred during the day as well as in the night.? She endorses eating every 2 hours.? This had been a recurring problem since her gastric by-pass surgery.?During the previous mentioned admissions, her C-Peptide and serum insulin levels were checked during a period where her CGM recorded a low glucose level. The values were normal. 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 She previously had normal C-peptide and insulin levels.? No recent fever, abd pain, N/V. During the course of this stay she did record several lower than 50 glood glucose levels on her CGM. She did have symptomology at one time and a fingerstick glucose level was in the low 90's. Unfortunately no conclusions were made as to the etiology of her low glucose readings. There is a possibility it is related to her gastric by-pass surgery. She is encouraged to eat adequate amounts of protein, fats and complex carbohydrates every 2 hours. Her amiloride will be held to see if this is helpful. It has been shown to have the potential to increase insulin levels (though the level drawn previously was normal). PCP f/u in 1-2 weeks. 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 Pt has previously scheduled Endocrine appt on 05/02/22. Home Meds and New Rx's Prescriptions: Continued glucagon 3 mg/actuation spray,non-aerosol 3 mg intranasal ONCE Qty: 1 3RF Rx Instructions: as a single dose bariatric fusion chewable complete 2 tab tablet 2 100 ml PO DAILY pramipexole 0.25 mg tablet 0.25 mg PO BID Qty: 180 3RF Rx Instructions: Take at lunch time and 1 hour prior to bedtime gabapentin 800 mg tablet 800 mg PO BID Qty: 180 3RF Rx Instructions: Take at noon and 1 hour prior to bedtime for RLS hydrochlorothiazide 25 mg tablet 25 mg PO BID PRN (Reason: edema) Qty: 180 3RF Rx Instructions: PRN bupropion HCl [Wellbutrin XL] 300 mg tablet extended release 24 hr 300 mg PO DAILY Qty: 90 3RF omeprazole 40 mg capsule,delayed release(DR/EC) 40 mg PO DAILY Qty: 90 3RF venlafaxine 75 mg tablet 75 mg PO BID Qty: 180 3RF Hold Instructions: Home Medication placed on hold at Doctor's office Rx Instructions: Re-start Rx potassium chloride 20 mEq tablet extended release 20 meq PO PRN PRN (Reason: hypokalemia) Qty: 30 0RF Rx Instructions: taking prn per lab test cgc triamcinolone acetonide 0.5 % ointment 1 applic TP PRN PRN Rx Instructions: 1 FTU per hand BID (1g) .. 2g/day Held amiloride 5 mg tablet 5 mg PO BID Qty: 180 3RF Hold Instructions: until endocrine eval. Rx Instructions: Continue No Action (DME) Dexcom G6 Sensor Device See Rx Instructions .ROUTE .MEDSUPPLY Qty: 3 11RF Rx Instructions: As directed (DME) Dexcom G6 Transmitter Device See Rx Instructions .ROUTE .MEDSUPPLY Qty: 1 3RF Rx Instructions: to be replaced ~Q3mo (DME) Non-Stick Pad 3 X 4 bandage See Rx Instructions .Route Qty: 10 0RF Rx Instructions: As directed (DME) hair prosthesis See Rx Instructions .Route .MEDSUPPLY Qty: 1 1RF Rx Instructions: hair prosthesis for alopecia areata of scalp (DME) Scalp Hair Prosthesis Qty: 1 1RF Rx Instructions: Wear as recommende (DME) Blood Glucose Test Strip See Rx Instructions .ROUTE .MEDSUPPLY Qty: 100 3RF Rx Instructions: As directed to check blood glucose daily. No insulin. Dispense covered brand. (DME) glucometer See Rx Instructions .Route .MEDSUPPLY Qty: 1 0RF Rx Instructions: As directed to manage, prevent hypoglycemic episodes (DME) lancets [Comfort Lancets] Misc See Rx Instructions .ROUTE .MEDSUPPLY Qty: 100 1RF Rx Instructions: As directed to check blood glucose daily. No insulin. Dispense covered brand. (DME) Dexcom G6 Web Ui Software Engineer Misc See Rx Instructions .Route Qty: 1 0RF Rx Instructions: as directed (DME) Blood Glucose Test Strip See Rx Instructions .ROUTE .MEDSUPPLY Qty: 350 3RF Rx Instructions: As directed to check blood glucose QID. No insulin. Dispense covered brand. Discharge Instructions Activity:: Activity as Tolerated Equipment/Supplies:: No Equipment Needed Diet:: resume Q2H intake Discharge Orders Discharge Orders: Discharge Order (Routine); Ordered 04/06/22 Ordered By: Trent Holguin DS: Summary Time Spent with Patient providing and/or coordinating discharge services: Greater than 30 minutes Status at Discharge Functional status at discharge: independent ambulation Overall status at discharge: patient is back to baseline Mental Status: mental status grossly normal Speech and Movement: speech clear Mood: congruent mood Affect: normal affect Exam Narrative Exam Narrative: Pleasant and conversant. Const General: cooperative, no acute distress and well groomed Nutritional Appearance: overweight Orientation: oriented x3 Eyes General: appearance normal, both eyes and all related structures Sclera: sclerae normal Resp Effort & Inspection: normal respiratory effort Auscultation: clear to auscultation bilaterally Cardio Rate: regular rate Rhythm: regular rhythm Heart Sounds: S1 normal and S2 normal GI Palpation: soft and nontender Skin General skin exam: no rashes or lesions noted Extrem General: no pedal edema and no calf tenderness Psych Appearance: grossly normal Mental Status: mental status grossly normal Speech and Movement: speech clear Mood: congruent mood Affect: normal affect DS: Data Vitals/I&O Vitals and I&O: Vital Signs Temperature 36.6 C 04/06/22 15:29 Temperature Source Tympanic 04/06/22 15:29 Pulse 81 04/06/22 15:29 Pulse Rhythm Regular 04/06/22 15:13 Respiratory Rate 16 04/06/22 15:29 Respiratory Effort Non-Labored 04/06/22 15:13 Respiratory Depth Normal 04/06/22 15:13 Respiratory Pattern Normal 04/06/22 15:13 Blood Pressure 134/89 04/06/22 15:29 Blood Pressure Position Supine 04/05/22 12:16 Pulse Oximetry 98 04/06/22 15:29 Oxygen Delivery Method Room Air 04/06/22 15:29 Oxygen Flow Rate 0 04/06/22 15:29 Pain Level 0 04/06/22 15:29 Intake & Output 04/05/22 04/06/22 04/06/22 23:59 11:59 23:59 Intake Total 480 / 480 450 / 450 Output Total 500 / 500 700 / 700 Balance -20 / -20 -250 / -250 Weight 81.6 kg Intake: Oral 480 / 480 450 / 450 Output: Urine 500 / 500 700 / 700 Other: Urine Color Yellow Yellow Urine Appearance Clear Clear Clear Urine Odor Normal Comment toilet insert. pt has had x2 voids. one 500mls and another one 200mls toilet insert emptied. Stool Size Moderate Stool Characteristics Soft Voiding Methods Toilet Toilet Data Completed and Pending Labs on day of discharge: Labs from last 24 hours 04/06/22 06:28 Sodium 143 Potassium 3.0 L Chloride 103 Carbon Dioxide 32.7 H Anion Gap 7.3 BUN 25 H Creatinine 1.0 Est GFR (CKD-EPI 2020) 67.78 Glucose 103 Calcium 8.6 PFSH All Active Problems Disorder of iron metabolism (Acute) Per 03/22/22 [facility] Gen surgery note Elevated PTHrP level (Acute) Per 03/22/22 [facility] [place] Gen surgery note Post-resection malabsorption (Acute) Per 03/22/22 [facility] [place] Gen surgery note Hyperparathyroidism (Acute) Postprandial hypoglycemia (Acute) per observation and tel d/w Dr. Ortega (future Endo, [facility]).. vs exercise- induced Hypoglycemia (Acute) Heel lesion (Acute) Right heel, cracked skin .. inner foot tenderness .. out of proportion tenderness .. possible assoc with fever? (improved with soaking, but not closing) Fever (Acute) Over 1 week; T 103/102/99; Neg COVID; Awaiting Flu Status post bariatric surgery (Acute) Successful weight loss, but dangerous, symptomatic HYPOglycemia [neg dumping syndrome per [facility]] SARS-CoV-2 positive (Acute ~10/26/21) Pelvic pain (Acute) Dysmenorrhea (Acute) [place] exposure (Acute) Dtr (+) .. Sore Throat, lab [ ] Skin lesion (Acute) Mild wound, 2' probable abd intertrigo. Dumping syndrome (Acute 04/12/21) NOT per Bariatric Team.. Dx per [facility] Endo .. [facility] Bariatric Team re-eval as NEG for dumping syndrome, 05/2021 Scab of knee (Acute) fell last week, rough/dry scab, but irritated .. Trial debride @ home, consider surgtery if tender. Facial twitching (Acute) Nodule of left lung (Acute) 3mm, incidental finding, LLL (12/2020 CT). [ ] 6 mo FU.. Paresthesias (Acute) Hypotension (Acute) post gastric bypass ... lowering ACEi, BB, CCB. DIuretics in place 2' LE edema (albeit improved). Depressive disorder (Chronic 05/23/11) Wellbutrin 2012, discon 12/2012, restart 05/2013 Hx of Kristin thyroiditis (Acute) Complicated grieving (Acute) Her basically healthy mo due to COVID19 infection. She was intubated within days of becoming sick, sending out a cheerful text 4 days beforehand! Monisha has cancelled the trip just before flights, etc were shut down; she was originally worried for her fa 2' health issues and dementia. Close-knit family; inability for gathering for .. video/webexed with family in [facility] (mo in [place]). Imbalance (Acute) Cervical radiculopathy (Acute) Hematuria (Acute) Other seborrheic keratosis (Acute) Hypomagnesemia (Acute) Leg edema (Acute) Flash pulmonary edema (Acute) Lymphedema (Chronic) referring to PT for evaluation and recommendations.. Bunion (Acute) 12/24/18-nelson Yarbrough DPM Sustained VT (ventricular tachycardia) (Acute) during hypokalemia episode Abnormal serum creatinine level (Acute 07/2018) Serious Creatinine elevation, with resolution between episodes of dehydration .. Fatty liver (Acute) 10/02/18 Dr Schroeder/[facility] Angioedema (Acute) 10/02/18 Dr Schroeder/[facility] [place] Flushing (Acute) 10/02/18 Dr Schroeder/[facility] Out of work (Acute 08/21/18) Recommend continuation of reduced hours due to continued electrolyte imbalances, fatigue and metabolic disorder. Unclear etiology makes it difficult to create a clear treatment plan, which in turn, makes routine and FT work difficult to manage. Revised [facility] Ppwk (06/2019). Solid, intermittent improvements, but unpredictable. 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 10/30/18, ik. I support time off from work due to continued electrolyte imbalances which cannot be explained. Re-referring to specialists @ [facility] as well as [facility]. Elevated plasma metanephrines (Acute 08/2018) Ordered by Endo, CT (Abd) [ ] ... follow up with Endo week of October 07. 08/2018, ik Kidney stone (Acute 02/27/12) Migraine headache with aura (Chronic) DR. VALDEZ 08/29/11 Topamax works Vertigo and/or pain Uterine leiomyoma (Chronic 11/02/15) On pelvic ultrasound uterus enlarged approximate 13 cm. 08/04/2021 pelvic pain radiating from back. Serrated adenoma of colon (Acute 07/07/15) Dr. Contreras, sessile colonic polyp, inflammatory polyp Sensorineural hearing loss, bilateral (Chronic 11/01/17) Restless leg (Acute 03/31/15) Some relief with iron infusion (albeit reaction to infusion), 05/2018. 06/16/19 f/u at sleep clinic Reflux esophagitis (Acute 07/07/15) Dr. Contreras gastritis Rectal bleeding (Acute 03/02/15) Episodic - Was diagnosed with AVM's Premenstrual dysphoric disorder (Acute 11/10/14) Gabriel Henderson MD [place] [facility] Positive TG (antinuclear antibody) (Acute 06/07/15) Mgrn w aura w intrc mgrn (Acute 09/05/11) DR. VALDEZ 08/29/11 Topamax works Vertigo and/or pain Mgrn wo aura wo ntrc mgr (Acute 09/05/11) DR. VALDEZ 08/29/11 Topamax works Vertigo and/or pain Incomplete tear of left rotator cuff (Acute 05/31/16) Diarrhea (Acute 10/29/15) Chronic, secretory .. s/p multiple [place], Bx. Trial cholestyramine, 10/2018, ik planned. Alopecia areata (Acute 05/23/11) Dx'ed 1990s Hair prosthesis Medical History Alopecia Anemia Class 3 severe obesity due to excess calories with body mass index (BMI) of 40.0 to 44.9 in adult 07/31/19 [facility] Dehydration (~08/21/18) Several episodes now .. She can almost gauge her K levels based on mm weakness. [ ] BMP [ ] IVF-KCl Bolus-K have helped with hypokalemia in between bouts of diarrhea/dehydration when IVF not needed. 09/2018, mian Depression Diabetes mellitus type 2 in obese Improved s/p bariatric surgery and wt loss BUT HYPOglycemia Essential hypertension (12/05/12) Elevated BPs, especially DBP. Hx high BP since of twins (20yrs), noted in Nephro note (2016). HCTZ used x years for HTN & Edema. Spirono not tolerated (Hives/Flush). Trial Eplerenone, 10/09/18, mian Unable to tolerate eplerenone, angioedema-like reactions to K-sparing diuretics.. 09/2018, mian GERD (gastroesophageal reflux disease) Kristin's thyroiditis Hx of adenomatous colonic polyps Hypokalemia (11/07/16) Chronic, possible 2' IBS/Diarrhea. Continued despite GI improvements, albeit improved. Trial Eplerenone, to be followed by HCTZ decrease. 10/09/18 Intermittent improvement, but unsteady and unpredictable .. Monisha seems unable to maintain her own K levels WNL w/o bolus/infusions at this time. Unable to tolerate K-sparing diuretics. Cont to research, evaluate, consult .. 09/2018, mian Impaired fasting glucose (02/11/14) A1C 6.1% 12/2012 .. A1C 5.8 07/04/18. Irritable bowel syndrome diarrhea predominant Preeclampsia Rectal hemorrhage (03/02/15) Reflux esophagitis Surgical History section x3 Colonoscopy - MAC (03/16/14) w/ bx 2016-serrated adenomatous polyp EGD - MAC 2016 Endometrial Ablation 2007 2012 H/O colonoscopy (12/05/17) History of esophagogastroduodenoscopy (EGD) (12/05/17) History of Nadia-en-Y gastric bypass (~11/2019) Tonsillectomy Family History Mother Pulmonary hypertension Heart disease valve replacement Father Prostate cancer Essential hypertension Parkinsons Sister Uterine cancer Brother No problems noted. Other Colon cancer Social History Smoking/Tobacco Use Status: Never Smoking risk assessment performed?: Yes Alcohol Intake: current Alcohol Intake frequency: holidays/special occasions only Alcohol type: wine Drug use: Never Substance use type: does not use Adopted: No Caregiver/Support person: No Household members: spouse and other Details: Partner - Jayne, children Housing: house Number of Children: 4 number of grandchildren: 0 Communication Needs: Corrective Lenses Education Level: college current occupation: Daily today tested negative on this on the testing day negative negative di Pets and animals: Yes Pets and animals: cat(s) and dog(s) Sexually active: Yes Do you think of yourself as: lesbian/peña/homosexual Current gender identity: female What is your relationship status?: living with partner Panel score (0-1 are the most socially isolated patients): 1 What type of physical activity do you participate in: walking Duration: 15-30 minutes/day Frequency: 3-4 times per week Seatbelt use: always Working smoke detector in home: Yes Fire extinguisher in home: Yes Carbon monox detector in home: Yes Firearms in home: No Do you feel safe at home: Yes Do you feel safe in your relationship?: Yes Female Reproductive History Menstrual control method: permanent sterilization History History 3 Para 4 Hx # Term Pregnancies Multiple births 1 Hx # Pregnancies Ectopic pregnancies AB induced Hx Number of Living Children AB spontaneous Time Spent with Patient Time Spent with Patient: 45-69 minutes Time was spent: preparing to see the patient(eg.review tests), obtaining and/or reviewing separately otained hiistory, ordering medications,tests, procedures, referring, communicating with other health healthcare applications analyst and indepentently interpreting results
== END 2022-04-06 17:53 | disposition home or self-care (01) ==
LOC: ER 14:49 → MS 16:14
PROVIDERS: Admitting Provider Family Medicine; Emergency Provider Student in an Organized Health Care Education/Training Program; PCP Student in an Organized Health Care Education/Training Program; Visit Provider Family Medicine
DX: E16.2 Hypoglycemia, unspecified (principal); Z98.84 Bariatric surgery status; E83.10 Disorder of iron metabolism, unspecified; K91.2 Postsurgical malabsorption, not elsewhere classified; K95.89 Other complications of other bariatric procedure; R50.9 Fever, unspecified; Z86.16 Personal history of COVID-19; F32.A Depression, unspecified; M54.12 Radiculopathy, cervical region; I89.0 Lymphedema, not elsewhere classified; K76.0 Fatty (change of) liver, not elsewhere classified; D64.9 Anemia, unspecified; L63.9 Alopecia areata, unspecified; E11.9 Type 2 diabetes mellitus without complications; I10 Essential (primary) hypertension; K21.9 Gastro-esophageal reflux disease without esophagitis; E06.3 Autoimmune thyroiditis; K58.0 Irritable bowel syndrome with diarrhea; G43.909 Migraine, unspecified, not intractable, without status migrainosus; Z79.899 Other long term (current) drug therapy
CPT/HCPCS: 36415; 36416; 80048; 80053; 82962; 93005; 99285; 83735; 84443; 84484; 85025; 93010; 99222; 99239; G0378

== ENCOUNTER 2022-04-17 13:48 | Outpatient (REF) | payer OTHER, SELFPAY | END 2022-04-17 13:49 | disposition home or self-care (01) | LOC: LBN 13:48 | PROVIDERS: PCP Student in an Organized Health Care Education/Training Program; Visit Provider Nurse Practitioner Women's Health | DX: N76.0 Acute vaginitis (principal) | CPT/HCPCS: 87480; 87510; 87660 ==

== ENCOUNTER 2022-05-08 15:11 | Outpatient (CLI) | payer OTHER, SELFPAY ==
[2022-05-08 13:12] LABS: Anion Gap 6.8 mmol/L (3-11); BUN 17 mg/dL (7-18); CO2 32.2 mmol/L (21.0-32.0); CREATININE 1.1 mg/dL (0.55-1.02); Chloride 100 mmol/L (98-107); Estimated GFR 60.46 (mL/min/1.73m2); Glucose 105 mg/dL (74-106); Magnesium 1.9 mg/dL (1.8-2.4); Sodium 139 mmol/L (136-145)
== END 2022-05-08 15:12 | disposition home or self-care (01) ==
LOC: LBO 15:12
PROVIDERS: PCP Student in an Organized Health Care Education/Training Program; Visit Provider Student in an Organized Health Care Education/Training Program
DX: E87.6 Hypokalemia (principal)
CPT/HCPCS: 36415; 80048; 83735

== ENCOUNTER 2022-05-16 02:13 | Outpatient (CLI) | payer OTHER, SELFPAY ==
[2022-05-16 11:44] LABS: Anion Gap 7.2 mmol/L (3-11); BUN 19 mg/dL (7-18); CO2 31.8 mmol/L (21.0-32.0); CREATININE 0.9 mg/dL (0.55-1.02); Calcium 9.3 mg/dL (8.5-10.1); Chloride 99 mmol/L (98-107); Estimated GFR 76.92 (mL/min/1.73m2); Glucose 78 mg/dL (74-106); Magnesium 2.1 mg/dL (1.8-2.4); Potassium 3.2 mmol/L (3.5-5.1); Sodium 138 mmol/L (136-145)
[2022-05-16 17:51] LABS: Estradiol 158 pg/mL (See Note)
[2022-05-16 17:58] LABS: FSH 25.7 mIU/mL (See Note)
== END 2022-05-16 02:14 | disposition home or self-care (01) ==
PROVIDERS: Nurse Practitioner Adult Health; Obstetrics & Gynecology; PCP Student in an Organized Health Care Education/Training Program; Visit Provider Student in an Organized Health Care Education/Training Program
DX: N93.8 Other specified abnormal uterine and vaginal bleeding (principal); D25.9 Leiomyoma of uterus, unspecified; R10.2 Pelvic and perineal pain; Z98.84 Bariatric surgery status; E11.9 Type 2 diabetes mellitus without complications; R79.89 Other specified abnormal findings of blood chemistry; E21.3 Hyperparathyroidism, unspecified
CPT/HCPCS: 36415; 80048; 82670; 83001; 83735

== ENCOUNTER 2022-05-29 02:44 | Outpatient (CLI) | payer OTHER, SELFPAY ==
[2022-05-29 15:15] LABS: Anion Gap 7.9 mmol/L (3-11); BUN 18 mg/dL (7-18); CO2 32.1 mmol/L (21.0-32.0); CREATININE 0.9 mg/dL (0.55-1.02); Calcium 9.4 mg/dL (8.5-10.1); Chloride 99 mmol/L (98-107); Estimated GFR 76.92 (mL/min/1.73m2); Glucose 96 mg/dL (74-106); Magnesium 2.2 mg/dL (1.8-2.4); Potassium 3.4 mmol/L (3.5-5.1); Sodium 139 mmol/L (136-145)
== END 2022-05-29 02:45 | disposition home or self-care (01) ==
PROVIDERS: PCP Student in an Organized Health Care Education/Training Program; Visit Provider Student in an Organized Health Care Education/Training Program
DX: Z86.39 Personal history of other endocrine, nutritional and metabolic disease (principal)
CPT/HCPCS: 36415; 80048; 83735

== ENCOUNTER 2022-06-02 08:12 | Outpatient (CLI) | payer OTHER, SELFPAY ==
--- NOTE | 2022-06-02 08:00 | RT.EKG_ITS ---
APPROVED REPORT Exam: Resting ECG Reason for Exam: Pre-op Patient Location: O HR:74 bpm ECG Measurements Heart Rate 74 AXIS MA 154 P 6 QRSd 107 QRS -32 QT 422 T 41 QTc 469 Conclusion Sinus rhythm...normal P axis, V-rate 50- 99 Left ventricular hypertrophy...multiple LVH criteria
== END 2022-06-02 08:13 | disposition home or self-care (01) ==
LOC: DI.KIM 08:14
PROVIDERS: PCP Student in an Organized Health Care Education/Training Program; Visit Provider Student in an Organized Health Care Education/Training Program
DX: E87.6 Hypokalemia (principal); R00.0 Tachycardia, unspecified; I42.2 Other hypertrophic cardiomyopathy
CPT/HCPCS: 93010

== ENCOUNTER 2022-06-15 02:08 | Outpatient (CLI) | payer OTHER, SELFPAY ==
[2022-06-15 11:26] LABS: HCT 40.7 % (36.0-46.0); HGB 13.7 g/dL (11.2-15.7); MCH 28.2 pg (27.0-33.0); MCHC 33.7 % (32.0-36.0); MCV 84 fL (80-95); MPV 9.6 fL (8.0-11.0); Platelet Count 399 10^3/uL (130-400); RBC 4.85 10^6/uL (3.93-5.22); RDW 14.1 % (11.7-14.6); RDW-SD 43.4 fL; WBC 9.09 10^3/uL (4.4-10.8)
[2022-06-15 11:52] LABS: Hemoglobin A1C 5.9 % (<5.7)
[2022-06-15 11:53] LABS: Anion Gap 6.8 mmol/L (3-11); BUN 17 mg/dL (7-18); CO2 30.2 mmol/L (21.0-32.0); Calcium 9.1 mg/dL (8.5-10.1); Chloride 99 mmol/L (98-107); Estimated GFR 67.78 (mL/min/1.73m2); Glucose 97 mg/dL (74-106); Potassium 3.4 mmol/L (3.5-5.1); Sodium 136 mmol/L (136-145)
== END 2022-06-15 02:09 | disposition home or self-care (01) ==
PROVIDERS: PCP Student in an Organized Health Care Education/Training Program; Visit Provider Student in an Organized Health Care Education/Training Program
DX: E16.2 Hypoglycemia, unspecified (principal); R73.09 Other abnormal glucose; E46 Unspecified protein-calorie malnutrition; N93.8 Other specified abnormal uterine and vaginal bleeding; F32.89 Other specified depressive episodes; Z98.84 Bariatric surgery status
CPT/HCPCS: 36415; 80048; 85027; 83036; 83735

== ENCOUNTER 2022-06-27 02:59 | Outpatient (CLI) | payer OTHER, SELFPAY ==
[2022-06-27 17:39] LABS: BUN 15 mg/dL (7-18); Calcium 9.1 mg/dL (8.5-10.1); Chloride 102 mmol/L (98-107); Estimated GFR 67.78 (mL/min/1.73m2); Glucose 94 mg/dL (74-106); Potassium 3.1 mmol/L (3.5-5.1); Sodium 141 mmol/L (136-145)
== END 2022-06-27 03:00 | disposition home or self-care (01) ==
LOC: LBO 02:59
PROVIDERS: Nurse Practitioner Adult Health; PCP Student in an Organized Health Care Education/Training Program; Visit Provider Student in an Organized Health Care Education/Training Program
DX: E87.6 Hypokalemia (principal)
CPT/HCPCS: 80048; 83735

== ENCOUNTER 2022-07-03 03:31 | Outpatient (CLI) | payer OTHER, SELFPAY ==
[2022-07-03 15:45] LABS: Anion Gap 8.2 mmol/L (3-11); BUN 16 mg/dL (7-18); CO2 30.8 mmol/L (21.0-32.0); Calcium 9.4 mg/dL (8.5-10.1); Chloride 100 mmol/L (98-107); Estimated GFR 67.78 (mL/min/1.73m2); Glucose 88 mg/dL (74-106); Magnesium 1.9 mg/dL (1.8-2.4); Potassium 3.3 mmol/L (3.5-5.1); Sodium 139 mmol/L (136-145)
== END 2022-07-03 03:32 | disposition home or self-care (01) ==
LOC: LBO 03:31
PROVIDERS: PCP Student in an Organized Health Care Education/Training Program; Visit Provider Student in an Organized Health Care Education/Training Program
DX: E87.6 Hypokalemia (principal); E46 Unspecified protein-calorie malnutrition; R73.09 Other abnormal glucose; Z98.84 Bariatric surgery status
CPT/HCPCS: 36415; 80048; 83735

== ENCOUNTER 2022-07-12 03:11 | Outpatient (CLI) | payer OTHER, SELFPAY ==
[2022-07-12 07:38] LABS: Anion Gap 6.9 mmol/L (3-11); BUN 18 mg/dL (7-18); CO2 32.1 mmol/L (21.0-32.0); Calcium 8.9 mg/dL (8.5-10.1); Chloride 100 mmol/L (98-107); Estimated GFR 67.78 (mL/min/1.73m2); Glucose 107 mg/dL (74-106); Potassium 3.6 mmol/L (3.5-5.1); Sodium 139 mmol/L (136-145)
== END 2022-07-12 03:12 | disposition home or self-care (01) ==
LOC: LBO 03:11
PROVIDERS: PCP Student in an Organized Health Care Education/Training Program; Visit Provider Student in an Organized Health Care Education/Training Program
DX: E87.6 Hypokalemia (principal); E46 Unspecified protein-calorie malnutrition; Z98.84 Bariatric surgery status
CPT/HCPCS: 36415; 80048; 83735

== ENCOUNTER 2022-08-01 04:50 | Outpatient (CLI) | payer OTHER, SELFPAY ==
[2022-08-01 12:12] LABS: Anion Gap 7.3 mmol/L (3-11); BUN 16 mg/dL (7-18); CO2 30.7 mmol/L (21.0-32.0); Calcium 8.9 mg/dL (8.5-10.1); Chloride 101 mmol/L (98-107); Estimated GFR 67.78 (mL/min/1.73m2); Glucose 106 mg/dL (74-106); Magnesium 1.6 mg/dL (1.8-2.4); Potassium 3.9 mmol/L (3.5-5.1); Sodium 139 mmol/L (136-145)
[2022-08-01 12:51] LABS: Ferritin 11 ng/mL (8-252)
== END 2022-08-01 04:51 | disposition home or self-care (01) ==
PROVIDERS: Psychiatry & Neurology Neurology; PCP Student in an Organized Health Care Education/Training Program; Visit Provider Student in an Organized Health Care Education/Training Program
DX: G25.81 Restless legs syndrome; E87.6 Hypokalemia
CPT/HCPCS: 36415; 80048; 82728; 83735

== ENCOUNTER 2022-08-03 01:33 | Outpatient (RCR) | payer OTHER, SELFPAY ==
[2022-08-03] MEDS: IRON SUCROSE COMPLEX 200 MG in Normal Saline 100 ML 440 MG IVPB (07:15)
[2022-08-03] MEDS: Normal Saline Flush 10 ML SYR IVP (07:18)
[2022-08-03 07:19] VITALS: BP 129/79; PULSE 54; RESP 17; TEMP 36.7; O2SAT 98
== END 2022-08-30 23:59 | disposition home or self-care (01) ==
LOC: INF 01:33
PROVIDERS: PCP Student in an Organized Health Care Education/Training Program; Visit Provider Psychiatry & Neurology Neurology
DX: D50.9 Iron deficiency anemia, unspecified (principal); G25.81 Restless legs syndrome
CPT/HCPCS: 96365; J1756

== ENCOUNTER 2022-09-05 03:18 | Outpatient (CLI) | payer OTHER, SELFPAY ==
[2022-09-05 14:15] LABS: HGB 13.1 g/dL (11.2-15.7)
[2022-09-05 15:21] LABS: Anion Gap 5.3 mmol/L (3-11); BUN 16 mg/dL (7-18); CO2 31.7 mmol/L (21.0-32.0); CREATININE 0.9 mg/dL (0.55-1.02); Calcium 8.9 mg/dL (8.5-10.1); Chloride 101 mmol/L (98-107); Estimated GFR 76.92 (mL/min/1.73m2); Ferritin 29 ng/mL (8-252); Glucose 116 mg/dL (74-106); Magnesium 1.8 mg/dL (1.8-2.4); Potassium 3.5 mmol/L (3.5-5.1); Sodium 138 mmol/L (136-145)
[2022-09-05 15:30] LABS: Vitamin D 25 Total 40.5 ng/mL (30-100)
[2022-09-05 15:31] LABS: Iron 77 ug/dL (50-170); Total Iron Binding Capacity 371 ug/dL (250-450); Transferrin Sat 21 % (15-50)
== END 2022-09-05 03:19 | disposition home or self-care (01) ==
PROVIDERS: PCP Student in an Organized Health Care Education/Training Program; Visit Provider Student in an Organized Health Care Education/Training Program
DX: I10 Essential (primary) hypertension (principal); E83.10 Disorder of iron metabolism, unspecified; E87.6 Hypokalemia; E16.2 Hypoglycemia, unspecified; E86.0 Dehydration; E83.42 Hypomagnesemia; N93.8 Other specified abnormal uterine and vaginal bleeding; R79.89 Other specified abnormal findings of blood chemistry; Z79.899 Other long term (current) drug therapy; Z98.84 Bariatric surgery status
CPT/HCPCS: 36415; 80048; 82306; 82728; 83540; 83550; 83735; 85018

== ENCOUNTER 2022-10-11 22:55 | Emergency (ER) | payer OTHER, SELFPAY ==
[2022-10-11 22:58] VITALS: BP 137/88; PULSE 62; RESP 18; TEMP 36.5; O2SAT 99
--- NOTE | 2022-10-11 23:00 | DI.CT_ITS ---
Exam(s) CT ABDOMEN PELVIS W EXAM: CT ABDOMEN PELVIS W CLINICAL HISTORY: upper abdominal pain. TECHNIQUE: Imaging Protocol: Axial computed tomography images with coronal and sagittal reformatted images were created and reviewed CONTRAST MATERIAL: Intravenous: Omnipaque-350 100cc Oral: None COMPARISON: CT CT BRAIN NECK CTA from 02/16/2021 FINDINGS: VISUALIZED LUNG BASES: No nodules nor pleural effusions evident. ABDOMEN: There is no ascites. GI: There is evidence of prior bariatric surgery. The [place] excluded stomach is not dilated. There is no oral contrast to determine if there is abnormal fistulous communication.. The Nadia limb is no t dilated. The diameter of distal small bowel loops is slightly prominent and these loops are fecali zed, implying slow transit. There is also abundant fecal material throughout the colon. No true bow el obstruction or free air. No abscess. LIVER: There are no focal hepatic lesions evident. No dilated intrahepatic ducts. GALLBLADDER/BILIARY: No gallstones nor gallbladder wall edema. CBD is not dilated. PANCREAS: No evidence of pancreatic mass nor dilatation of the pancreatic duct. SPLEEN: Spleen is not enlarged. No obvious intrasplenic lesions. Splenic and portal veins are paten t. ADRENALS: There are no significant adrenal masses. KIDNEYS:No cysts evident. No solid renal masses. No calculi nor hydronephrosis.. ABDOMINAL AORTA: Abdominal aorta is not enlarged. LYMPH NODES:There is no retroperitoneal nor paraaortic adenopathy. ABDOMINAL WALL: No evidence of significant anterior abdominal wall nor inguinal hernia. PELVIS: GI: No evidence of appendicitis.No evidence of sigmoid diverticulitis. LYMPH NODES: There is no intrapelvic nor inguinal adenopathy. REPRODUCTIVE: Uterus is enlarged and heterogeneous-probable multiple fibroids. There also appears to be irregularity/thickening of the endometrium. Requires ultrasound. Ovaries contain small follicul ar cysts. URINARY BLADDER: No calculi nor obvious masses evident OSSEOUS: No fractures and no significant osseous lesions. Chronic degenerative disc disease in lower lumbar spine. Mild facet joint degenerative changes. IMPRESSION: 1. Evidence of prior bariatric surgery. No obvious bowel obstruction but there is fecalization of sm all bowel loops implying slow transit through the distal small bowel and there is also abundant retai basil fecal material throughout the colon element of constipation. The [place] excluded stomach is not distended but without oral contrast it is not possible to determine if there is abnormal fistulous co mmunication between the gastric pouch and the [place] excluded stomach.. Nevertheless, there is no ev idence of free air, ascites, nor abscess. 2. Abnormally enlarged and heterogeneous uterus. Suspect both uterine fibroids as well as significan t endometrial pathology, possibly neoplastic. Recommend pelvic ultrasound. 3. Follicular cysts are noted in both ovaries. No ominous ovarian masses evident. No ascites. RADIATION DOSE DELIVERED: 912.45mGy.cm Total DLP DATA REPOSITORY: All CT scans at this facility are submitted to the National Radiology Data Registry (NRDR) Dose Index Registry (DIR) with the [employer] (ACR). RADIATION OPTIMIZATION: All CT scans at this facility use at least one of these dose optimization te chniques: automated exposure control; mA and/or kV adjustment per patient size (includes targeted exa ms where dose is matched to clinical indication); or iterative reconstruction.
[2022-10-11 23:10] VITALS: BP 137/88; PULSE 63; PULSE 66; RESP 19
[2022-10-11 23:11] VITALS: PULSE 69; RESP 18
--- NOTE | 2022-10-11 23:11 | W.ED.GENAD ---
Discharge Plan Disposition Patient Disposition: Home Condition: Improving Discharge Details Clinical Impression: Back pain, Constipation Primary Care Provider: Huyen Ramon ED Provider: Scotty Kirkland Meds and New Rx's Prescriptions: New cyclobenzaprine 5 mg tablet 5 mg PO TID PRNQty: 20 0RF naproxen 375 mg tablet 375 mg PO BID PRNQty: 30 0RF Continued glucagon 3 mg/actuation spray,non-aerosol 3 mg intranasal ONCE Qty: 1 3RF Rx Instructions: as a single dose (DME) Non-Stick Pad 3 X 4 bandage See Rx Instructions .Route Qty: 10 0RF Rx Instructions: As directed (DME) Scalp Hair Prosthesis See Rx Instructions .Route .MEDSUPPLY Qty: 1 1RF Rx Instructions: Wear as recommendended (DME) Hair Prosthesis See Rx Instructions .Route .MEDSUPPLY Qty: 1 1RF Rx Instructions: As fitted/recommended for daily wear gabapentin 800 mg tablet 800 mg PO BID Qty: 180 3RF Rx Instructions: Take at noon and 1 hour prior to bedtime for RLS sertraline 25 mg tablet 25 mg PO DAILY Qty: 90 1RF Rx Instructions: Re-start low dose for mixed post-cheryl/GI symptoms (DME) hair prosthesis See Rx Instructions .Route .MEDSUPPLY Qty: 1 1RF Rx Instructions: hair prosthesis for alopecia areata of scalp bariatric fusion chewable complete 2 tab tablet 2 100 ml PO DAILY (DME) Blood Glucose Test Strip See Rx Instructions .ROUTE .MEDSUPPLY Qty: 100 3RF Rx Instructions: As directed to check blood glucose daily. No insulin. Dispense covered brand. (DME) glucometer See Rx Instructions .Route .MEDSUPPLY Qty: 1 0RF Rx Instructions: As directed to manage, prevent hypoglycemic episodes (DME) lancets [Comfort Lancets] Misc See Rx Instructions .ROUTE .MEDSUPPLY Qty: 100 1RF Rx Instructions: As directed to check blood glucose daily. No insulin. Dispense covered brand. (DME) Blood Glucose Test Strip See Rx Instructions .ROUTE .MEDSUPPLY Qty: 350 3RF Rx Instructions: As directed to check blood glucose QID. No insulin. Dispense covered brand. potassium chloride 20 mEq tablet extended release 20 meq PO PRN PRN (Reason: hypokalemia) Qty: 30 0RF Rx Instructions: taking prn per lab test cgc pramipexole 0.25 mg tablet 0.25 mg PO BID Qty: 180 3RF Rx Instructions: Take at lunch time and 1 hour prior to bedtime acarbose 25 mg tablet 25 mg PO TID (DME) Progesterone See Rx Instructions .Route .MEDSUPPLY Qty: 1 0RF Rx Instructions: per [facility] InternDr. [place] hydrochlorothiazide 25 mg tablet 25 mg PO BID PRN (Reason: edema) Qty: 180 3RF Rx Instructions: PRN (DME) Dexcom G7 Sensor Device See Rx Instructions .Route Qty: 9 3RF Rx Instructions: As directed to check blood glucose. (DME) Dexcom G7 Supervisor [employer] Misc See Rx Instructions .ROUTE .MEDSUPPLY Qty: 1 0RF Rx Instructions: As directed to check blood glucose. oxycodone-acetaminophen [Percocet] 5-325 mg tablet 1 tab PO Q8H MDD 3 PRN (Reason: pain) Qty: 7 0RF lisinopril 5 mg tablet 5 mg PO BID Qty: 60 3RF omeprazole 40 mg capsule,delayed release(DR/EC) 40 mg PO DAILY Qty: 90 3RF bupropion HCl [Wellbutrin XL] 300 mg tablet extended release 24 hr 300 mg PO DAILY Qty: 90 3RF amiloride 5 mg tablet 5 mg PO BID Qty: 180 3RF Hold Instructions: until endocrine eval. Rx Instructions: Continue per Endocrine (07/2022+) ondansetron HCl 4 mg tablet 4 mg PO Q8H PRN (Reason: nausea and vomiting) Qty: 20 1RF oxycodone-acetaminophen [Percocet] 5-325 mg tablet 1 tab PO Q6H MDD 4 PRN (Reason: pain) Qty: 10 0RF Lupron Depot (3 month) 11.25 mg syringe kit 11.25 mg IM Q12W Qty: 1 0RF oxycodone-acetaminophen [Percocet] 5-325 mg tablet 1 tab PO Q6H MDD 4 PRN (Reason: pain) Qty: 20 0RF Discharge Instructions Instructions: Constipation (ED), Back Pain (ED) Stand Alone Forms: Work Release Discharge Data Discharge Physician: Scotty Kirkland Medical Decision Making Patient presents to the emergency department complaining back pain and spasms as received Toradol morphine and Valium with much improved. She the CAT scan of the abdomen pelvis labs. Labs are unremarkable CAT scan which shows the fibroid that she has constipation. Patient will be discharged to go on Naprosyn and Flexeril and will follow up with her primary care doctor Medical Records Medical records reviewed: Yes I reviewed the patient's medical records. Lab Data Lab results reviewed: Yes I reviewed the patient's lab results. Lab results narrative: As stated above the labs are unremarkable including urinalysis HPI General Date/Time Provider Initiated Documentation: 10/11/22 23:04. HPI Narrative: Patient presents to the emergency department complaining of 3 hours of which she describes as bilateral back spasms but states that it sounds like a contraction. Reports the pain is a constant but exacerbating pain that starts in both flanks rating to the front of her abdomen. Reports nausea no vomiting denies any vaginal bleeding does state that she has fibroids in the to have a hysterectomy next December. Denies any fever denies any chills. Related Data Home Medications Medication Instructions Recorded Confirmed bariatric fusion chewable complete 2 100 ml PO DAILY 12/28/20 09/02/22 blood sugar diagnostic (Blood #100 ea 04/10/21 09/02/22 Glucose Test strips) glucometer #1 ea 04/21/21 09/02/22 lancets (Comfort Lancets) #100 ea 04/26/21 09/02/22 glucagon 3 mg/actuation nasal spray 3 mg intranasal ONCE severe 07/22/21 09/02/22 hypoglycemia #1 ea non-adherent bandage 3 X 4 #10 ea 07/23/21 09/02/22 (Non-Stick Pad) blood sugar diagnostic (Blood #350 ea 03/29/22 09/02/22 Glucose Test strips) potassium chloride 20 mEq 20 meq PO PRN PRN hypokalemia #30 04/05/22 09/02/22 tablet,extended release tabs pramipexole 0.25 mg tablet 0.25 mg PO BID #180 tabs 04/07/22 09/02/22 acarbose 25 mg tablet 25 mg PO TID 04/13/22 09/02/22 Progesterone #1 ea 05/30/22 09/02/22 Hair Prosthesis #1 ea 06/02/22 09/02/22 Scalp Hair Prosthesis #1 ea 06/02/22 09/02/22 hydrochlorothiazide 25 mg tablet 25 mg PO BID PRN edema #180 tabs 07/07/22 09/02/22 gabapentin 800 mg tablet 800 mg PO BID #180 tabs 07/13/22 09/02/22 blood-glucose meter,continuous #1 ea 07/14/22 09/02/22 (Dexcom G7 Super[employer]) blood-glucose sensor (Dexcom G7 #9 ea 07/14/22 09/02/22 Sensor device) oxycodone-acetaminophen 5 mg-325 1 tab PO Q8H PRN pain #7 tabs 08/22/22 09/02/22 mg tablet (Percocet) amiloride 5 mg tablet 5 mg PO BID #180 tabs 09/02/22 09/02/22 bupropion HCl 300 mg 24 hr tablet, 300 mg PO DAILY #90 tabs 09/02/22 09/02/22 extended release (Wellbutrin XL) lisinopril 5 mg tablet 5 mg PO BID #60 tabs 09/02/22 omeprazole 40 mg capsule,delayed 40 mg PO DAILY #90 tabs 09/02/22 release sertraline 25 mg tablet 25 mg PO DAILY #90 tab-caps 09/02/22 09/02/22 ondansetron HCl 4 mg tablet 4 mg PO Q8H PRN nausea and 09/14/22 vomiting #20 tabs oxycodone-acetaminophen 5 mg-325 1 tab PO Q6H PRN pain #10 tabs 09/21/22 mg tablet (Percocet) leuprolide (3 month) 11.25 mg (3 11.25 mg IM Q12W #1 ea 10/10/22 month) intramuscular syringe kit (Lupron Depot) oxycodone-acetaminophen 5 mg-325 1 tab PO Q6H PRN pain #20 tabs 10/11/22 mg tablet (Percocet) cyclobenzaprine 5 mg tablet 5 mg PO TID PRN #20 tabs 10/12/22 naproxen 375 mg tablet 375 mg PO BID PRN #30 tabs 10/12/22 Previous Rx's Medication Instructions Recorded blood sugar diagnostic (Blood #100 ea 04/10/21 Glucose Test strips) glucometer #1 ea 04/21/21 lancets (Comfort Lancets) #100 ea 04/26/21 glucagon 3 mg/actuation nasal spray 3 mg intranasal ONCE severe 07/22/21 hypoglycemia #1 ea non-adherent bandage 3 X 4 #10 ea 07/23/21 (Non-Stick Pad) blood sugar diagnostic (Blood #350 ea 03/29/22 Glucose Test strips) potassium chloride 20 mEq 20 meq PO PRN PRN hypokalemia #30 04/05/22 tablet,extended release tabs pramipexole 0.25 mg tablet 0.25 mg PO BID #180 tabs 04/07/22 Progesterone #1 ea 05/30/22 Hair Prosthesis #1 ea 06/02/22 Scalp Hair Prosthesis #1 ea 06/02/22 hydrochlorothiazide 25 mg tablet 25 mg PO BID PRN edema #180 tabs 07/07/22 gabapentin 800 mg tablet 800 mg PO BID #180 tabs 07/13/22 blood-glucose meter,continuous #1 ea 07/14/22 (Dexcom G7 Supervisor [employer]) blood-glucose sensor (Dexcom G7 #9 ea 07/14/22 Sensor device) oxycodone-acetaminophen 5 mg-325 1 tab PO Q8H PRN pain #7 tabs 08/22/22 mg tablet (Percocet) amiloride 5 mg tablet 5 mg PO BID #180 tabs 09/02/22 bupropion HCl 300 mg 24 hr tablet, 300 mg PO DAILY #90 tabs 09/02/22 extended release (Wellbutrin XL) lisinopril 5 mg tablet 5 mg PO BID #60 tabs 09/02/22 omeprazole 40 mg capsule,delayed 40 mg PO DAILY #90 tabs 09/02/22 release sertraline 25 mg tablet 25 mg PO DAILY #90 tab-caps 09/02/22 ondansetron HCl 4 mg tablet 4 mg PO Q8H PRN nausea and 09/14/22 vomiting #20 tabs oxycodone-acetaminophen 5 mg-325 1 tab PO Q6H PRN pain #10 tabs 09/21/22 mg tablet (Percocet) leuprolide (3 month) 11.25 mg (3 11.25 mg IM Q12W #1 ea 10/10/22 month) intramuscular syringe kit (Lupron Depot) oxycodone-acetaminophen 5 mg-325 1 tab PO Q6H PRN pain #20 tabs 10/11/22 mg tablet (Percocet) cyclobenzaprine 5 mg tablet 5 mg PO TID PRN #20 tabs 10/12/22 naproxen 375 mg tablet 375 mg PO BID PRN #30 tabs 10/12/22 Allergies Allergy/AdvReac Type Severity Reaction Status Date / Time atropine Allergy Intermediate HIVES, Verified 09/01/22 09:04 SWOLLEN spironolactone Allergy Intermediate Skin Rash Verified 09/01/22 09:04 eplerenone AdvReac Intermediate swelling; Verified 09/01/22 09:04 SOB General Stated Complaint: Nk/Back Pain JOBY: 3 Review of Systems Narrative: Review of Systems: Constitutional: No fevers, chills, sweats Eye: No recent visual problems ENT: No ear pain, nasal congestion, sore throat Respiratory: No shortness of breath, cough Cardiovascular: No Chest pain, palpitations, syncope Gastrointestinal: No vomiting, diarrhea Genitourinary: No hematuria Saul/Lymph: Negative for bruising tendency, swollen lymph glands Endocrine: Negative for excessive thirst, excessive hunger Musculoskeletal: No back pain, neck pain, joint pain, muscle pain, decreased range of motion Integumentary: No rash, pruritus, abrasions Neurologic: Alert & oriented X 4 Psychiatric: No anxiety, depression PFSH All Active Problems (Updated 10/12/22 @ 02:05 by Scotty Kirkland MD) Back pain (Acute) Constipation (Acute) Ill feeling (Acute) Recent episodes of somnolence, off-balance & spells of being out of my body. Possibly psych rxn (2' anx, grief, milestones) .. but monitoring. Hypertension (Chronic) Hx HTN .. with med d/c post bariatric surg wt loss.. some elevated BPs, 05/2022, re-start low-dose lisinopril. LVH (left ventricular hypertrophy) (Acute) Newly noted, although Hx left axis dev (-90, -30) .. Hx HTN, Flash Pulm Edema (2018), obesity, s/p bariatric surgery. DUB (dysfunctional uterine bleeding) (Acute) Cont'd .. with 17 week sized uterus per pt rpt, 09/01/22 .. [ ] [facility] [place] next Hypoglycemia (Acute) Hx BG < 35 per CGM Acute hypokalemia (Acute) Disorder of iron metabolism (Acute) Per 03/22/22 [facility] [place] surgery [place] Elevated PTHrP level (Acute) Per 03/22/22 [facility] [place] surgery note Hyperparathyroidism (Acute) Postprandial hypoglycemia (Acute) PP Hyperinsulinemic hypogly Dx per [facility] Endo (Echt). 04/2022. per observation and tel d/w Dr. Ortega (future Endo, [facility]).. vs exercise-induced Status post bariatric surgery (Acute) Successful weight loss, but dangerous, symptomatic HYPOglycemia [neg dumping syndrome per [facility]] Skin lesion (Acute) Mild wound, 2' probable abd intertrigo. Scab of knee (Acute) fell last week, rough/dry scab, but irritated .. Trial debride @ home, consider surgtery if tender. Facial twitching (Acute) Nodule of left lung (Acute) 3mm, incidental finding, LLL (12/2020 CT). [ ] 6 mo FU.. Paresthesias (Acute) Hypotension (Acute) post gastric bypass ... lowering ACEi, BB, CCB. DIuretics in place 2' LE edema (albeit improved). Depressive disorder (Chronic 05/23/11) Wellbutrin 2012, discon 12/2012, restart 05/2013 Hx of Marylou thyroiditis (Acute) Imbalance (Acute) Cervical radiculopathy (Acute) Hematuria (Acute) Hypomagnesemia (Acute) Leg edema (Acute) Lymphedema (Chronic) referring to PT for evaluation and recommendations.. Fatty liver (Acute) 10/02/18 Dr Schroeder/[facility] Elevated plasma metanephrines (Acute 08/2018) Ordered by Endo, CT (Abd) [ ] ... follow up with Endo week of October 07. 08/2018, ik Migraine headache with aura (Chronic) DR. VALDEZ 08/29/11 [employer] Vertigo and/or pain Uterine leiomyoma (Chronic 11/02/15) On pelvic ultrasound uterus enlarged approximate 13 cm. 08/04/2021 pelvic pain radiating from back. Serrated adenoma of colon (Acute 07/07/15) Dr. Contreras, sessile colonic polyp, inflammatory polyp Sensorineural hearing loss, bilateral (Chronic 11/01/17) Restless leg (Acute 03/31/15) Some relief with iron infusion (albeit reaction to infusion), 05/2018. 06/16/19 f/u at sleep clinic Reflux esophagitis (Acute 07/07/15) Dr. Contreras gastritis Premenstrual dysphoric disorder (Acute 11/10/14) Gabriel Henderson MD [facility] Positive TG (antinuclear antibody) (Acute 06/07/15) Mgrn wo aura wo ntr mgr (Acute 09/05/11) DR. VALDEZ 08/29/11 [employer] works Vertigo and/or pain Incomplete tear of left rotator cuff (Acute 05/31/16) Diarrhea (Acute 10/29/15) Chronic, secretory .. s/p multiple [place], Bx. Trial cholestyramine, 10/2018, ik planned. Alopecia areata (Acute 05/23/11) Dx'ed 1990s Hair prosthesis Medical History Abnormal serum creatinine level (07/2018) Serious Creatinine elevation, with resolution between episodes of dehydration .. Alopecia Anemia Angioedema 10/02/18 Dr Schroeder/[facility] Bunion 12/24/18-nelson Yarbrough DPM Class 3 severe obesity due to excess calories with body mass index (BMI) of 40.0 to 44.9 in adult 07/31/19 [facility] Complicated grieving Her basically healthy mo due to COVID19 infection. She was intubated within days of becoming sick, sending out a cheerful text 4 days beforehand! Monisha has cancelled the trip just before flights, etc were shut down; she was originally worried for her fa 2' health issues and dementia. Close-knit family; inability for gathering for .. video/webexed with family in [facility] (mo in [place]). Dehydration (~08/21/18) Several episodes now .. She can almost gauge her K levels based on mm weakness. [ ] BMP [ ] IVF-KCl Bolus-K have helped with hypokalemia in between bouts of diarrhea/dehydration when IVF not needed. 09/2018, ik Depression Diabetes mellitus type 2 in obese Improved s/p bariatric surgery and wt loss BUT HYPOglycemia Dumping syndrome (04/12/21) NOT per Bariatric Team.. Dx per [facility] Endo .. [facility] Bariatric Team re-eval as NEG for dumping syndrome, 05/2021 Dysmenorrhea Essential hypertension (12/05/12) Elevated BPs, especially DBP. Hx high BP since of twins (20yrs), noted in Nephro note (2017). HCTZ used x years for HTN & Edema. Spirono not tolerated (Hives/Flush). Trial Eplerenone, 10/09/18, mian Unable to tolerate eplerenone, angioedema-like reactions to K-sparing diuretics.. 09/2018, mian Fever Over 1 week; T 103/102/99; Neg COVID; Awaiting Flu Flash pulmonary edema Flushing 10/02/18 Dr Schroeder/[facility] GERD (gastroesophageal reflux disease) Marylou's thyroiditis Heel lesion Right heel, cracked skin .. inner foot tenderness .. out of proportion tenderness .. possible assoc with fever? (improved with soaking, but not closing) History of endometrial biopsy (~05/26/22) [facility] Intern, 05/26/22 Hx of adenomatous colonic polyps Hypokalemia (11/07/16) Chronic, possible 2' IBS/Diarrhea. Continued despite GI improvements, albeit improved. Trial Eplerenone, to be followed by HCTZ decrease. 10/09/18 Intermittent improvement, but unsteady and unpredictable .. Monisha seems unable to maintain her own K levels WNL w/o bolus/infusions at this time. Unable to tolerate K-sparing diuretics. Cont to research, evaluate, consult .. 09/2018, mian Impaired fasting glucose (02/11/14) A1C 6.1% 12/2012 .. A1C 5.8 07/04/18. Irritable bowel syndrome diarrhea predominant Kidney stone (02/27/12) Mgrn w aura w intrc mgrn (09/05/11) DR. VALDEZ 08/29/11 [employer] works Vertigo and/or pain [place] exposure Dtr (+) .. Sore Throat, lab [ ] Out of work (08/21/18) Recommend continuation of reduced hours due to continued electrolyte imbalances, fatigue and metabolic disorder. Unclear etiology makes it difficult to create a clear treatment plan, which in turn, makes routine and FT work difficult to manage. Revised [employer] Ppwk (06/2019). Solid, intermittent improvements, but unpredictable. 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 10/30/18, I support time off from work due to continued electrolyte imbalances which cannot be explained. Re-referring to specialists @ [facility] as well as [facility]. Post-resection malabsorption Per 03/22/22 [facility] [place] surgery [place] Pre-op evaluation Hysterectomy planned, told she would need [facility] due to Hx and anatomy Preeclampsia Rectal bleeding (03/02/15) Episodic - Was diagnosed with AVM's Rectal hemorrhage (03/02/15) Reflux esophagitis SARS-CoV-2 positive (~10/26/21) Sustained VT (ventricular tachycardia) during hypokalemia episode Surgical History section x3 Colonoscopy - MAC (03/16/14) w/ bx 2015-serrated adenomatous polyp Most recent 12/05/2017 EGD - MAC 2015 Endometrial Ablation 2007 2012 H/O colonoscopy (12/05/17) History of esophagogastroduodenoscopy (EGD) (12/05/17) History of Nadia-en-Y gastric bypass (~11/2019) Tonsillectomy Family History Mother Pulmonary hypertension Heart disease valve replacement Father Prostate cancer Essential hypertension Parkinsons Sister Uterine cancer Brother Heart disease Other Colon cancer Social History Smoking/Tobacco Use Status: Never Smoking risk assessment performed?: Yes Alcohol Intake: current Alcohol Intake frequency: holidays/special occasions only Alcohol type: wine Drug use: Never Substance use type: does not use Adopted: No Caregiver/Support person: No Household members: spouse and other Details: Partner - Jayne, children Housing: house Number of Children: 4 number of grandchildren: 0 Communication Needs: Corrective Lenses Education Level: college current occupation: Daily today tested negative on this on the testing day negative negative di Pets and animals: Yes Pets and animals: cat(s) and dog(s) Sexually active: Yes Do you think of yourself as: lesbian/peña/homosexual Current gender identity: female What is your relationship status?: living with partner Panel score (0-1 are the most socially isolated patients): 1 What type of physical activity do you participate in: walking Duration: 15-30 minutes/day Frequency: 3-4 times per week Seatbelt use: always Working smoke detector in home: Yes Fire extinguisher in home: Yes Carbon monox detector in home: Yes Firearms in home: No Do you feel safe at home: Yes Do you feel safe in your relationship?: Yes Female Reproductive History Menstrual control method: permanent sterilization History History 3 Para 4 Hx # Term Pregnancies Multiple births 1 Hx # Pregnancies Ectopic pregnancies AB induced Hx Number of Living Children AB spontaneous Exam Narrative Exam Narrative: Exam; vitals signs as reported above normal Constitutional; In no acute distress, afebrile General: cooperative, healthy appearing, comfortable and no acute distress HEENT: Head: normal to inspection, no palpable skull fracture and normocephalic atraumatic Eyes: l: appearance normal, both eyes and all related structures Pupils: PERRL : EOM intact bilaterally Direct ophthalmoscopy: normal light reflex, normal conjunctiva, normal visual acuity Neck no JVD, supple non tender Neck: normal visual inspection, full ROM and no lymphadenopathy Chest: normal inspection of the chest Respiratory : normal respiratory effort and able to speak in complete sentences no wheezing no rales Cardio Rate: regular rate Rhythm: regular rhythm normal heart sounds S1 and S2 no murmurs, gallops, or rubs GI : normal to inspection, normal bowel sounds, soft, non tender, non distended, no organomegaly Back/Spine/ no CVA tenderness Thoracic/Lumbar Spine: no tenderness or deformities Skin no rashes or lesions Neuro: patient alert and no meningeal signs, Cranial Nerves: CN's II-XI intact bilaterally, Cognition: normal cognition, Speech: speech normal, Gait: normal gait, Depp tendon reflexes normal 2+ Extremities, no edema, full range of motion, normal strength Course Vital Signs Vital signs: Vital Signs Temperature 36.5 C 10/11/22 22:58 Pulse 62 10/11/22 22:58 Respiratory Rate 18 10/11/22 22:58 Blood Pressure 137/88 10/11/22 22:58 Pulse Oximetry 99 10/11/22 22:58 Temperature 36.5 C 10/11/22 22:58 Temperature Source Oral 10/11/22 22:58 Pulse 62 10/11/22 22:58 Respiratory Rate 18 10/11/22 22:58 Respiratory Effort Normal, Non-Labored 10/11/22 23:03 Blood Pressure 137/88 10/11/22 22:58 Blood Pressure Position Supine 10/11/22 22:58 Pulse Oximetry 99 10/11/22 22:58 Oxygen Delivery Method Room Air 10/11/22 22:58 Oxygen Flow Rate 0 10/11/22 22:58 Vital Signs & Lab Results Vital Signs Most Recent Vital Signs: Most Recent Vital Signs Temp Pulse Resp BP Pulse Ox 36.5 C 62 18 137/88 99 10/11/22 22:58 10/11/22 22:58 10/11/22 22:58 10/11/22 22:58 10/11/22 22:58 Point of Care Results Nursing Point of Care Results: No Data to Display Lab Results 10/11/22 23:14 10/11/22 23:14 Blood Type / Crossmatch: No Data to Display Complete Blood Count: White Blood Count 10.86 10^3/uL (4.4-10.8) H 10/11/22 23:14 Red Blood Count 4.15 10^6/uL (3.93-5.22) 10/11/22 23:14 Hemoglobin 12.1 g/dL (11.2-15.7) 10/11/22 23:14 Hematocrit 35.6 % (36.0-46.0) L 10/11/22 23:14 Platelet Count 343 10^3/uL (130-400) 10/11/22 23:14 Complete Metabolic Panel: Sodium 140 mmol/L (136-145) 10/11/22 23:14 Potassium 3.4 mmol/L (3.5-5.1) L 10/11/22 23:14 Chloride 103 mmol/L (98-107) 10/11/22 23:14 Carbon Dioxide 28.8 mmol/L (21.0-32.0) 10/11/22 23:14 BUN 21 mg/dL (7-18) H 10/11/22 23:14 Creatinine 1.1 mg/dL (0.55-1.02) H 10/11/22 23:14 Est GFR (CKD-EPI 2020) 60.46 (mL/min/1.73m2) 10/11/22 23:14 Magnesium 2.0 mg/dL (1.8-2.4) 10/11/22 23:14 Calcium 8.9 mg/dL (8.5-10.1) 10/11/22 23:14 Albumin 3.4 g/dL (3.4-5.0) 10/11/22 23:14 Glucose 100 mg/dL (74-106) 10/11/22 23:14 Liver Function Panel: Alanine Aminotransferase (ALT/SGPT) 23 U/L (14-59) 10/11/22 23:14 Aspartate Amino Transf (AST/SGOT) 17 U/L (15-37) 10/11/22 23:14 Coagulation Panel: No Data to Display Cardiac Panel: No Data to Display Arterial Blood Gas: No Data to Display Venous Blood Gas: No Data to Display Pancreas Panel: Lipase 30 U/L (16-77) 10/11/22 23:14 Thyroid Panel: No Data to Display Infectious Disease: No Data to Display Blood Cultures: No Data to Display Toxicology Panel: No Data to Display Panel: No Data to Display
[2022-10-11 23:20] VITALS: PULSE 67; RESP 12
[2022-10-11 23:25] LABS: Abs Immature Grans 0.02 10^3/uL (0.0-0.06); Absolute Basophil Count 0.05 10^3/uL (0.0-0.2); Absolute Eosinophil Count 0.34 10^3/uL (0.0-0.7); Absolute Lymphocyte Count 3.92 10^3/uL (1.2-3.4); Absolute Monocyte Count 0.81 10^3/uL (0.1-0.8); Basophils % 0.5; Eosinophils % 3.1; HCT 35.6 % (36.0-46.0); HGB 12.1 g/dL (11.2-15.7); Immature Grans % 0.2; Lymphocytes % 36.1; MCH 29.2 pg (27.0-33.0); MCV 86 fL (80-95); MPV 9.3 fL (8.0-11.0); Monocytes % 7.5; Neutrophils % 52.6; Platelet Count 343 10^3/uL (130-400); RBC 4.15 10^6/uL (3.93-5.22); RDW 13.6 % (11.7-14.6); RDW-SD 42.9 fL; WBC 10.86 10^3/uL (4.4-10.8)
[2022-10-11 23:27] LABS: Absolute Neutrophil Count 5.71 10^3/uL (1.2-6.7)
[2022-10-11] MEDS: Ondansetron 4 MG/2 ML VIAL IVP (23:31)
[2022-10-11] MEDS: MORPHine 10 MG/ML VIAL 4 MG IVP (23:31)
[2022-10-11] MEDS: Normal Saline 1,000 ML 1000 ML IV (23:31)
[2022-10-11 23:39] LABS: Lipase 30 U/L (16-77)
[2022-10-11 23:42] LABS: ALT 23 U/L (14-59); AST 17 U/L (15-37); Albumin 3.4 g/dL (3.4-5.0); Alkaline Phosphatase 56 U/L (46-116); Anion Gap 8.2 mmol/L (3-11); BUN 21 mg/dL (7-18); Bilirubin, Total 0.3 mg/dL (0.2-1.0); CO2 28.8 mmol/L (21.0-32.0); CREATININE 1.1 mg/dL (0.55-1.02); Calcium 8.9 mg/dL (8.5-10.1); Chloride 103 mmol/L (98-107); Estimated GFR 60.46 (mL/min/1.73m2); Glucose 100 mg/dL (74-106); Potassium 3.4 mmol/L (3.5-5.1); Sodium 140 mmol/L (136-145); Total Protein 6.6 g/dL (6.4-8.2)
[2022-10-12] VITALS (9 sets, daily range): PULSE 59–69; RESP 9–16
[2022-10-12] MEDS: Normal Saline - Diluent 50 ML VIAL IJ (00:05)
[2022-10-12] MEDS: Omnipaque 350 MG/ML 100 ML BTL IJ (00:05)
[2022-10-12 00:47] LABS: Bilirubin Negative (Negative); Blood Negative (Negative); Clarity Clear (Clear); Glucose Negative (Negative); Ketones Negative (Negative); Leukocyte Esterase Negative (Negative); Nitrite Negative (Negative); Specific Gravity <= 1.005 (1.005-1.025); Urobilinogen 0.2 mg/dL (Up to 0.2)
[2022-10-12] MEDS: diazePAM 5 MG TAB PO (01:07)
[2022-10-12] MEDS: Ketorolac 15 MG/ML VIAL IVP (01:07)
--- NOTE | 2022-10-12 01:42 | DI.VRAD_ITS ---
PROCEDURE INFORMATION: Exam: CT Abdomen And Pelvis With Contrast Exam date and time: 10/11/2022 11:55 PM Age: 51 years old Clinical indication: Abdominal pain; Localized; Upper; Additional info: Upper abd and lower back pain TECHNIQUE: Imaging protocol: Computed tomography of the abdomen and pelvis with contrast. Radiation optimization: All CT scans at this facility use at least one of these dose optimization techniques: automated exposure control; mA and/or kV adjustment per patient size (includes targeted exams where dose is matched to clinical indication); or iterative reconstruction. Contrast material: OMNI 350; Contrast volume: 100 ml; Contrast route: INTRAVENOUS (IV); COMPARISON: MR PELVIS WO/W 08/25/2021 8:54 AM FINDINGS: Lungs: Lung bases clear. Liver: Normal appearing liver. Gallbladder and bile ducts: Moderate gallbladder distention. No calcified gallstones or biliary dilatation. Pancreas: Pancreas partially obscured by close apposition of adjacent structures but grossly unremarkable, as seen. Spleen: Grossly unremarkable unenhanced spleen. Adrenal glands: Normal appearing adrenal glands. Kidneys and ureters: Normal appearing kidneys. No hydronephrosis. Ureters partially obscured. No suspicious calcifications along the expected ureteral courses. Stomach and bowel: Prior gastric surgery, apparently a gastric bypass procedure with gastrojejunostomy. Correlation with surgical history recommended. Associated enteroenteric anastomosis located in the left upper quadrant, as expected. Stomach largely decompressed. No convincing evidence of a small bowel obstruction. Fecalization of contents through a portion of the distal ileum suggesting delayed transit through the distal small bowel. Prominent retained fecal material in the cecum, ascending colon, and transverse colon with moderate retained fecal material through the descending colon. Downstream sigmoid colon and rectum well evacuated. No evidence of diverticulitis or colitis. Appendix: Normal retrocecal appendix. Intraperitoneal space: No gross ascites or free air. Vasculature: Normal caliber abdominal aorta. Lymph nodes: No pathologically enlarged mesenteric, retroperitoneal, or pelvic sidewall lymph nodes. Urinary bladder: Urinary bladder partially collapsed but grossly unremarkable, as seen. Reproductive: Heterogeneous mildly enlarged anteverted uterus with a leiomyomatous appearance. Suggestion of heterogeneous material within the endometrial canal of the lower uterine segment or proximal cervical canal, image 675 of series 6, not well evaluated by the CT exam. Adjacent nabothian cyst measuring 11 mm on image 669 of series 6. Ovaries partially obscured but grossly normal in size. 2.0 cm dominant left ovarian follicle. 1.0 cm dominant right ovarian follicle. Bones/joints: No acute fracture seen among the bones of the abdomen or pelvis. Prominent discogenic degeneration at T11-T12, L4-L5, and L5-S1. Soft tissues: Tiny fat-containing ventral hernia at the umbilicus, doubtful clinical significance. IMPRESSION: 1. Fecalization of contents through the ileum suggesting delayed transit through the distal small bowel. Prominent retained fecal material through the cecum, ascending colon, and transverse colon with moderate retained fecal material through the descending colon. Downstream sigmoid colon and rectum well evacuated. Clinical correlation is recommended to assess the possibility of constipation. Otherwise, no acute bowel pathology demonstrated. 2. Moderate gallbladder distension, nonspecific. No calcified gallstones or biliary dilatation. 3. Leiomyomatous uterus. 4. Heterogeneous material in the endometrial canal of the lower uterine segment/cervix, not well evaluated by the CT exam. Primary differential considerations would include thrombotic debris, pedunculated endometrial leiomyoma or polyp, or spontaneous in progress. Alternative pathology is not excluded. Clinical correlation is recommended to determine the need for additional evaluation. 5. Ovaries partially obscured. 2.0 cm dominant left ovarian follicle. 1.0 cm dominant right ovarian follicle. No gross free fluid seen. Dictated and Authenticated by: Derik Urban MD. Ordering:FELIPE Fajardo MD
== END 2022-10-12 02:17 | disposition home or self-care (01) ==
PROVIDERS: Emergency Provider Emergency Medicine Emergency Medical Services; PCP Student in an Organized Health Care Education/Training Program
DX: R10.10 Upper abdominal pain, unspecified (principal); K59.00 Constipation, unspecified; D25.9 Leiomyoma of uterus, unspecified; Z98.84 Bariatric surgery status
CPT/HCPCS: 80053; 83690; 96374; 96375; 99285; 74177; 81003; 83735; 85025; 99283; J1885; J2270; J2405; J3490

== ENCOUNTER → 2022-12-15 00:23 | Outpatient (CLI) | payer OTHER, SELFPAY ==
--- NOTE | 2022-12-15 14:56 | DI.US_ITS ---
APPROVED REPORT EXAM: Comprehensive 2D, Doppler, and color-flow Echocardiogram Patient Location: Out-Patient Butter Grader: Abbie Fowler RDCS (AE) Indications: Evaluate LVH, Preoperative exam, HTN Other Information Study Quality: Good Conclusion Normal left ventricular wall thickness and chamber size. Ejection fraction is 60%. Wall motion is n ormal Normal right ventricular size and systolic function Both atria are normal in size There is no structural or hemodynamically significant valvular disease Mildly dilated ascending aorta measuring 3.81 cm Wall motion Left Ventricle The left ventricle is normal size. The left ventricular systolic function is normal. The left ventric ular ejection fraction is within the normal range. There is normal left ventricular wall thickness. T here is normal LV segmental wall motion. There is no ventricular septal defect visualized. LVEF is 60 %. Right Ventricle The right ventricle is normal size. The right ventricular systolic function is normal. Atria The left atrium size is normal. The right atrium size is normal. The interatrial septum is intact wit h no evidence for an atrial septal defect. Aortic Valve The aortic valve is normal in structure. There is no aortic valvular stenosis. No aortic regurgitatio n is present. Mitral Valve The mitral valve is normal in structure. No evidence of mitral valve stenosis. Trace mitral regurgita tion. Tricuspid Valve The tricuspid valve is normal in structure. There is no tricuspid valve stenosis. Mild tricuspid regu rgitation. Pulmonic Valve The pulmonary valve is normal in structure. There is no pulmonic valvular stenosis. There is no pulmo pacheco valvular regurgitation. Great Vessels The aortic root is normal in size. The ascending aorta is mildly dilated. Aortic arch is normal in ca liber. IVC is normal in size and collapses >50% with inspiration. Pericardium There is no pericardial effusion. 2D Dimensions IVSD d PLAX 0.80 cm F: 0.6-1.0 Ao Root d 2.75 cm F: 2.7 - 3.3 LVPW d PLAX 0.85 cm F: 0.6 - 1.0 Ao Asc Diam d 3.81 cm F: 2.3 - 3.1 LVID d PLAX 4.64 cm F: 3.8 - 5.2 LVDs 2.98 cm F: 2.2 - 3.5 LV EF Teichholz 65.3 % FS 35.76 % LV EDV (Teich) 99.5 mL LV ESV (Teich) 34.5 mL M-Mode TAPSE 2.28 cm (M/F) >1.7 Auto EF LV EDV A4C 93.3 mL LV EDV A2C 87.6 mL LV EDV BP 89.5 mL LV ESV A4C 36.1 mL LV ESV A2C 34.4 mL LV ESV BP 34.7 mL LVEF(%) A4C 61.3 % LVEF(%) A2C 60.7 % LVEF(%) BP 61.2 % LV SV A4C 57.2 ml LV SV A2C 53.1 ml LV SV BP 54.8 ml LV CO A4C 3.9 L/min LV CO A2C 3.6 L/min LV CO BP 3.7 L/min HR A4C 67.55 BPM HR A2C 68.06 BPM LV EDV Index (BP) LA Volume LA Length A4C 5.2 cm LA Length A2C 5.5 cm LA Area A4C s 15.71 cm2 LA Area A2C s 15.37 cm2 LA Vol A4C A-L 39.92 mL LA Vol A2C A-L 36.34 mL LA Vol Biplane A-L 39.1 mL LA Vol/BSA A4C A-L LA Vol/BSA A2C A-L LA Vol/BSA BP A-L 20.6 mL/m2 LA Vol A4C MOD 36.9 mL LA Vol A2C MOD 34.1 mL LA Vol BP MOD 36.2 mL RA Volume RA Area A4C 10.5 cm2 RA ESV A4C (A-L) 19.0mL RA Vol/BSA A4C A-L RA Length A4C 4.9 cm RA ESV A4C (MOD) 18.1mL LV Diastology MV E' medial 0.082 (>0.07 m/s) MV E Vmax 0.70 (0.4-1.3 m/s) MV E/E' MED 8.44 (<14) MV A Vmax 0.90 (0.4-1.3 m/s) MV E' lateral 0.103 (>0.1 m/s) E/A Ratio 0.8 MV E/E' LAT 6.76 (<14) MV E' Average 0.093 m/s MV E/E'(average) 7.51 Aortic Valve AoV Vmax 1.64 m/s LVOT Vmax 1.10 m/s AoV Peak Grad 10.8 mmHg LVOT Peak Grad 4.8 mmHg AoV Area (Vmax) 1.88 cm2 LVOT VTI 0.246 m AoV VTI 0.356 m LVOT Mean Grad 2.8 mmHg AoV Mean Fantasma. 1.11 m/s LVOT SV 69.26 mL AoV Mean Grad 5.7 mmHg LVOT Diam s 1.85 cm AoV Area (VTI) 1.95 cm2 Velocity Ratio 0.67 Mitral Valve MV DT 221 (160-240 msec) MV Vmax TIPS 0.90 m/s MV Mean Grad 1.4 (<2mmHg) MV VTI 0.272 m Pulmonary Valve PV Vmax 0.78 (0.5-1.5 m/s) RVOT Vmax 0.65 m/s PV Peak Grad 2.4 mmHg RVOT Peak Gr. 1.7 mmHg PV Mean Fantasma 0.55 m/s RVOT VTI 0.181 m PV Mean Grad 1.4 mmHg RVOT Mean Gr. 1.1 mmHg Tricuspid Valve RA Pressure 3.00 mmHg TR Vmax 2.02 m/s TV S' 0.11 m/s TR Peak Grad 16.2 mmHg RVSP (TR) 19.2 mmHg
--- NOTE | 2022-12-15 15:14 | DI.CT_ITS ---
Exam(s) CT CHEST WO EXAM: CT CHEST WO CLINICAL HISTORY: 6 month monitoring, lung nodule,r91.1. TECHNIQUE: Imaging protocol: Axial computed tomography images were obtained and coronal and sagittal reformatted images were created and reviewed. COMPARISON: CT CT CHEST WO from 06/15/2021 FINDINGS: Tracheobronchial tree: Patent where visualized. Pulmonary parenchyma: No consolidation or dominant measurable mass. Calcified granuloma. There is a 4 mm nodule in the lateral basilar segment of the left lower lobe which appears stable. No new pulmo nary nodules are seen. Mediastinum and Noris: No dominant adenopathy or fluid collection. The esophagus is unremarkable. Thyroid gland: Unremarkable. Pleura: No effusion or pneumothorax. Heart: The heart is not dilated. Mild coronary artery calcification. No pericardial effusion. Aorta: Thoracic aorta non-dilated. Upper abdomen: Postsurgical changes seen in the stomach. Lymph nodes: Within normal limits. Soft tissues: Unremarkable. Bones:Within normal limits for the patient's age. Degenerative changes are seen in the left shoulder . IMPRESSION: Stable left lower lobe pulmonary nodule. No new pulmonary nodules. RADIATION DOSE DELIVERED: 571.33mGy.cm Total DLP 571.33mGy.cm Total DLP DATA REPOSITORY: All CT scans at this facility are submitted to the National Radiology Data Registry (NRDR) Dose Index Registry (DIR) with the [employer] (A[employer]). RADIATION OPTIMIZATION: All CT scans at this facility use at least one of these dose optimization te chniques: automated exposure control; mA and/or kV adjustment per patient size (includes targeted exa ms where dose is matched to clinical indication); or iterative reconstruction.
== END ==
PROVIDERS: PCP Student in an Organized Health Care Education/Training Program; Visit Provider Student in an Organized Health Care Education/Training Program
DX: E16.2 Hypoglycemia, unspecified (principal); E87.6 Hypokalemia; I51.7 Cardiomegaly; N93.8 Other specified abnormal uterine and vaginal bleeding; Z01.818 Encounter for other preprocedural examination; Z86.79 Personal history of other diseases of the circulatory system; R91.1 Solitary pulmonary nodule
CPT/HCPCS: 71250; 93306

== ENCOUNTER 2023-02-09 18:34 | Outpatient (CLI) | payer OTHER, SELFPAY ==
[2023-02-09 12:28] LABS: Anion Gap 9.7 mmol/L (3-11); BUN 16 mg/dL (7-18); CO2 29.3 mmol/L (21.0-32.0); CREATININE 1.1 mg/dL (0.55-1.02); Calcium 9.7 mg/dL (8.5-10.1); Chloride 101 mmol/L (98-107); Estimated GFR 60.08 (mL/min/1.73m2); Glucose 106 mg/dL (74-106); Sodium 140 mmol/L (136-145)
== END 2023-02-09 18:35 | disposition home or self-care (01) ==
LOC: LBO 18:34
PROVIDERS: PCP Student in an Organized Health Care Education/Training Program; Visit Provider Student in an Organized Health Care Education/Training Program
DX: Z91.89 Other specified personal risk factors, not elsewhere classified (principal); I10 Essential (primary) hypertension
CPT/HCPCS: 36415; 80048; 83735

== ENCOUNTER 2023-02-14 08:38 | Outpatient (CLI) | payer OTHER, SELFPAY ==
[2023-02-14 09:19] LABS: Anion Gap 8.2 mmol/L (3-11); BUN 20 mg/dL (7-18); CO2 30.8 mmol/L (21.0-32.0); CREATININE 1.2 mg/dL (0.55-1.02); Calcium 9.6 mg/dL (8.5-10.1); Chloride 103 mmol/L (98-107); Estimated GFR 54.13 (mL/min/1.73m2); Glucose 94 mg/dL (74-106); Magnesium 2.1 mg/dL (1.8-2.4); Potassium 3.4 mmol/L (3.5-5.1); Sodium 142 mmol/L (136-145)
== END 2023-02-14 08:39 | disposition home or self-care (01) ==
LOC: LBO 08:38
PROVIDERS: PCP Student in an Organized Health Care Education/Training Program; Visit Provider Student in an Organized Health Care Education/Training Program
DX: I10 Essential (primary) hypertension (principal); N18.2 Chronic kidney disease, stage 2 (mild); D50.9 Iron deficiency anemia, unspecified; E21.3 Hyperparathyroidism, unspecified
CPT/HCPCS: 36415; 80048; 83735

== ENCOUNTER 2023-02-20 03:00 | Outpatient (CLI) | payer OTHER, SELFPAY ==
[2023-02-20 11:23] LABS: Anion Gap 6.1 mmol/L (3-11); BUN 15 mg/dL (7-18); CO2 28.9 mmol/L (21.0-32.0); Calcium 9.7 mg/dL (8.5-10.1); Chloride 102 mmol/L (98-107); Estimated GFR 67.36 (mL/min/1.73m2); Glucose 100 mg/dL (74-106); Potassium 3.7 mmol/L (3.5-5.1); Sodium 137 mmol/L (136-145)
== END 2023-02-20 03:01 | disposition home or self-care (01) ==
LOC: LBO 03:00
PROVIDERS: PCP Student in an Organized Health Care Education/Training Program; Visit Provider Student in an Organized Health Care Education/Training Program
DX: N18.2 Chronic kidney disease, stage 2 (mild) (principal); E87.6 Hypokalemia
CPT/HCPCS: 36415; 80048; 83735

== ENCOUNTER 2023-03-09 03:12 | Outpatient (CLI) | payer OTHER, SELFPAY ==
[2023-03-09 13:09] LABS: BUN 21 mg/dL (7-18); CREATININE 1.1 mg/dL (0.55-1.02); Calcium 9.7 mg/dL (8.5-10.1); Chloride 102 mmol/L (98-107); Estimated GFR 60.08 (mL/min/1.73m2); Glucose 109 mg/dL (74-106); Magnesium 1.9 mg/dL (1.8-2.4); Sodium 144 mmol/L (136-145)
[2023-03-09 13:13] LABS: Potassium 2.8 mmol/L (3.5-5.1)
== END 2023-03-09 03:13 | disposition home or self-care (01) ==
LOC: LBO 03:12
PROVIDERS: PCP Student in an Organized Health Care Education/Training Program; Visit Provider Student in an Organized Health Care Education/Training Program
DX: I10 Essential (primary) hypertension (principal); Z91.89 Other specified personal risk factors, not elsewhere classified
CPT/HCPCS: 36415; 80048; 83735

== ENCOUNTER 2023-03-15 02:16 | Outpatient (CLI) | payer OTHER, SELFPAY ==
[2023-03-15 13:27] LABS: Hemoglobin A1C 6.1 % (<5.7)
[2023-03-15 13:36] LABS: BUN 21 mg/dL (7-18); CREATININE 0.9 mg/dL (0.55-1.02); Calcium 9.5 mg/dL (8.5-10.1); Chloride 101 mmol/L (98-107); Estimated GFR 76.44 (mL/min/1.73m2); Glucose 97 mg/dL (74-106); Potassium 3.3 mmol/L (3.5-5.1); Sodium 139 mmol/L (136-145)
== END 2023-03-15 02:17 | disposition home or self-care (01) ==
LOC: LBO 02:16
PROVIDERS: PCP Student in an Organized Health Care Education/Training Program; Visit Provider Student in an Organized Health Care Education/Training Program
DX: R73.09 Other abnormal glucose (principal); Z91.89 Other specified personal risk factors, not elsewhere classified; E87.6 Hypokalemia; N18.2 Chronic kidney disease, stage 2 (mild)
CPT/HCPCS: 36415; 80048; 83036; 83735

== ENCOUNTER 2023-03-19 11:49 | Outpatient (CLI) | payer OTHER, SELFPAY ==
[2023-03-19 12:41] LABS: Anion Gap 9.6 mmol/L (3-11); BUN 20 mg/dL (7-18); CO2 29.4 mmol/L (21.0-32.0); CREATININE 1.2 mg/dL (0.55-1.02); Calcium 9.4 mg/dL (8.5-10.1); Chloride 100 mmol/L (98-107); Estimated GFR 54.13 (mL/min/1.73m2); Glucose 103 mg/dL (74-106); Potassium 3.4 mmol/L (3.5-5.1); Sodium 139 mmol/L (136-145)
== END 2023-03-19 11:50 | disposition home or self-care (01) ==
LOC: LBO 11:49
PROVIDERS: PCP Student in an Organized Health Care Education/Training Program; Visit Provider Student in an Organized Health Care Education/Training Program
DX: E87.6 Hypokalemia (principal)
CPT/HCPCS: 36415; 80048; 83735

== ENCOUNTER 2023-03-27 01:51 | Outpatient (RCR) | payer OTHER, SELFPAY ==
[2023-03-27 09:10] LABS: Anion Gap 5.2 mmol/L (3-11); BUN 22 mg/dL (7-18); CO2 33.8 mmol/L (21.0-32.0); CREATININE 0.9 mg/dL (0.55-1.02); Calcium 9.5 mg/dL (8.5-10.1); Chloride 101 mmol/L (98-107); Estimated GFR 76.44 (mL/min/1.73m2); Glucose 102 mg/dL (74-106); Potassium 3.5 mmol/L (3.5-5.1); Sodium 140 mmol/L (136-145)
== END 2023-04-01 23:59 | disposition home or self-care (01) ==
LOC: INF 01:51
PROVIDERS: PCP Student in an Organized Health Care Education/Training Program; Visit Provider Student in an Organized Health Care Education/Training Program
DX: E87.0 Hyperosmolality and hypernatremia
CPT/HCPCS: 36415; 80048; 83735

== ENCOUNTER 2023-04-03 02:39 | Outpatient (CLI) | payer OTHER, SELFPAY ==
[2023-04-03 09:12] LABS: Anion Gap 10.9 mmol/L (3-11); BUN 21 mg/dL (7-18); CO2 27.1 mmol/L (21.0-32.0); Calcium 9.5 mg/dL (8.5-10.1); Chloride 100 mmol/L (98-107); Estimated GFR 67.36 (mL/min/1.73m2); Glucose 92 mg/dL (74-106); Magnesium 1.9 mg/dL (1.8-2.4); Potassium 3.6 mmol/L (3.5-5.1); Sodium 138 mmol/L (136-145)
== END 2023-04-03 02:40 | disposition home or self-care (01) ==
LOC: LBO 02:40
PROVIDERS: PCP Student in an Organized Health Care Education/Training Program; Visit Provider Student in an Organized Health Care Education/Training Program
DX: E87.6 Hypokalemia (principal); N18.2 Chronic kidney disease, stage 2 (mild); Z91.89 Other specified personal risk factors, not elsewhere classified
CPT/HCPCS: 36415; 80048; 83735

== ENCOUNTER 2023-04-04 14:49 | Outpatient (CLI) | payer OTHER, SELFPAY ==
--- NOTE | 2023-04-04 12:45 | DI.RAD_ITS ---
Exam(s) XR SHOULDER LT COMPLETE 2+V EXAM: XR SHOULDER LT COMPLETE 2+V CLINICAL HISTORY: evaluation. TECHNIQUE: 2D digital imaging was performed of the left shoulder. Two images were obtained. Axilla ry and Grashey views were obtained. COMPARISON: CR LEFT SHOULDER COMPLETE from 04/19/2016 FINDINGS: BONES: No acute fracture is present. No bony destructive lesion is seen. Note is again made of an os acromiale. JOINTS: No dislocation present. There are degenerative changes seen at the acromioclavicular joint. There also hypertrophic changes seen at the apophyseal joint. There are marked degenerative changes seen at the glenohumeral joint with joint space narrowing and spurring the inferior aspect of the hum eral head. SOFT TISSUE: Normal. IMPRESSION: Marked left shoulder arthrosis. DATA REPOSITORY: RADIATION DOSE DELIVERED:
== END 2023-04-04 14:50 | disposition home or self-care (01) ==
LOC: DIORS 14:50
PROVIDERS: PCP Student in an Organized Health Care Education/Training Program; Visit Provider Student in an Organized Health Care Education/Training Program
DX: M19.012 Primary osteoarthritis, left shoulder (principal)
CPT/HCPCS: 73030

== ENCOUNTER 2023-05-11 08:36 | Outpatient (CLI) | payer OTHER, SELFPAY | END 2023-05-11 08:37 | disposition home or self-care (01) | LOC: DI.KIM 08:36 | PROVIDERS: PCP Student in an Organized Health Care Education/Training Program; Visit Provider Student in an Organized Health Care Education/Training Program | CPT/HCPCS: 93010 ==

== ENCOUNTER → 2023-06-04 03:57 | Outpatient (CLI) | payer OTHER, SELFPAY ==
--- NOTE | 2023-06-04 07:00 | DI.MAMMO_ITS ---
Exam(s) MAMMO SCREENING EXAM: MAMMO SCREENING CLINICAL HISTORY: screening, Z12.39 TECHNIQUE: Mammograms were interpreted according to the usual protocol including computer analysis w [employer] CAD system, tomosynthesis and C-view imaging. COMPARISON: 2014 through 2021 FINDINGS: The breasts are composed of heterogeneously dense fibroglandular densities, Breast Density category C . No suspicious masses or suspicious microcalcifications are seen. No skin thickening or abnormal axillary lymph nodes are seen. There has been no significant change from prior exams. IMPRESSION: BI-RADS Category 1, Negative mammogram. Yearly screening mammography is recommended. Breast Density Category C, heterogeneously Dense. The mammogram demonstrates the patient's breast tissue is dense. Dense breast tissue is very common a nd is not abnormal but dense breast tissue can make it harder to find cancer on a mammogram. Also, de nse breast tissue may increase breast cancer risk. This information about the result of the mammogram report was provided to the patient to raise their awareness. Use this report when you speak with the patient about their risks for breast cancer, which includes their family history. At that time, you may recommend additional screening tests (Ultrasound or MRI) as they might be useful based on their r isk. A negative radiographic report should not delay biopsy if a dominant or clinically suspicious mass is present. Up to ten percent of cancers are not identified on mammography. A negative report may reinforce clinical impression. Adenosis and dense breasts may obscure an underlying neoplasm. False positive reports average 6 to 10%.
== END ==
PROVIDERS: PCP Student in an Organized Health Care Education/Training Program; Visit Provider Student in an Organized Health Care Education/Training Program
DX: Z12.31 Encounter for screening mammogram for malignant neoplasm of breast (principal)
CPT/HCPCS: 77063; 77067

== ENCOUNTER 2023-06-22 10:21 | Outpatient (CLI) | payer OTHER, SELFPAY ==
[2023-06-22 10:13] LABS: Anion Gap 8.4 mmol/L (3-11); BUN 12 mg/dL (7-18); CO2 29.6 mmol/L (21.0-32.0); CREATININE 0.9 mg/dL (0.55-1.02); Calcium 9.2 mg/dL (8.5-10.1); Chloride 104 mmol/L (98-107); Estimated GFR 76.44 (mL/min/1.73m2); Glucose 72 mg/dL (74-106); Magnesium 2.1 mg/dL (1.8-2.4); Potassium 3.6 mmol/L (3.5-5.1); Sodium 142 mmol/L (136-145)
== END 2023-06-22 10:22 | disposition home or self-care (01) ==
LOC: LBO 10:22
PROVIDERS: PCP Student in an Organized Health Care Education/Training Program; Visit Provider Student in an Organized Health Care Education/Training Program
DX: E87.6 Hypokalemia (principal); I10 Essential (primary) hypertension
CPT/HCPCS: 36415; 80048; 83735

== ENCOUNTER 2023-07-02 15:16 | Outpatient (CLI) | payer OTHER, SELFPAY ==
[2023-07-02 14:14] LABS: Anion Gap 10.3 mmol/L (3-11); BUN 21 mg/dL (7-18); CO2 29.7 mmol/L (21.0-32.0); CREATININE 0.9 mg/dL (0.55-1.02); Calcium 9.3 mg/dL (8.5-10.1); Chloride 101 mmol/L (98-107); Estimated GFR 76.44 (mL/min/1.73m2); Glucose 96 mg/dL (74-106); Magnesium 2.2 mg/dL (1.8-2.4); Potassium 3.5 mmol/L (3.5-5.1); Sodium 141 mmol/L (136-145)
== END 2023-07-02 15:17 | disposition home or self-care (01) ==
LOC: LBO 15:18
PROVIDERS: PCP Student in an Organized Health Care Education/Training Program; Visit Provider Student in an Organized Health Care Education/Training Program
DX: I10 Essential (primary) hypertension (principal); Z91.89 Other specified personal risk factors, not elsewhere classified
CPT/HCPCS: 36415; 80048; 83735

== ENCOUNTER 2023-07-03 19:04 | Inpatient (IN) | payer OTHER, SELFPAY ==
[2023-07-03] VITALS (33 sets, daily range): BP systolic 75–149; BP diastolic 30–99; PULSE 68–118; RESP 13–24; TEMP 37.1; O2SAT 94–100
--- NOTE | 2023-07-03 19:15 | RT.EKG_ITS ---
APPROVED REPORT Exam: Resting ECG Reason for Exam: weakness Patient Location: E HR:109 bpm ECG Measurements Heart Rate 109 AXIS CO 158 P 40 QRSd 98 QRS -40 QT 380 T 12 QTc 511 Conclusion Sinus tachycardia... 109 no stemi long QTC
--- NOTE | 2023-07-03 19:15 | DI.RAD_ITS ---
Exam(s) XR CHEST 2V PA LATERAL EXAM: XR CHEST 2V PA LATERAL CLINICAL HISTORY: fever TECHNIQUE: 2D digital imaging was performed of the chest. Two images were obtained. PA and lateral views were obtained. COMPARISON: CR XR CHEST 2V PA LATERAL from 02/06/2022 FINDINGS: MEDIASTINUM: Normal. HEART: Normal. PULMONARY VASCULATURE: Normal. LUNGS: Clear. PLEURAL SPACE: No pleural effusion or pneumothorax. BONE:Within normal limits for the patient's age. OTHER FINDINGS:Normal. IMPRESSION: No acute pulmonary findings. DATA REPOSITORY: RADIATION DOSE DELIVERED:
[2023-07-03 19:32] LABS: BE (Venous) 4 mmol/L (-2-3); HCO3 (Venous) 28 mmol/L (23-28); O2 Sat (Venous) 76 %; TCO2 (Venous) 25 mmol/L (24-29); pCO2 (Venous) 41 mmHg (41-51); pH (Venous) 7.45 (7.31-7.41); pO2 (Venous) 39 mmHg
[2023-07-03 19:33] LABS: Abs Immature Grans 0.16 10^3/uL (0.0-0.06); Absolute Basophil Count 0.06 10^3/uL (0.0-0.2); Absolute Lymphocyte Count 0.89 10^3/uL (1.2-3.4); Absolute Neutrophil Count 18.16 10^3/uL (1.2-6.7); Basophils % 0.3; Eosinophils % 0.5; HCT 41.9 % (36.0-46.0); HGB 14.3 g/dL (11.2-15.7); Immature Grans % 0.8; Lymphocytes % 4.4; MCH 27.6 pg (27.0-33.0); MCHC 34.1 % (32.0-36.0); MCV 81 fL (80-95); MPV 9.2 fL (8.0-11.0); Platelet Count 355 10^3/uL (130-400); RBC 5.19 10^6/uL (3.93-5.22); RDW 15.1 % (11.7-14.6); WBC 20.18 10^3/uL (4.4-10.8)
[2023-07-03 19:34] LABS: Absolute Monocyte Count 0.81 10^3/uL (0.1-0.8)
[2023-07-03] MEDS: Normal Saline 1,000 ML 1000 ML IV ×2 (19:36→20:42)
[2023-07-03 19:40] LABS: Lactate 3.4 mmol/L (0.6-1.4)
[2023-07-03 19:53] LABS: ALT 32 U/L (14-59); AST 27 U/L (15-37); Albumin 3.7 g/dL (3.4-5.0); Alkaline Phosphatase 83 U/L (46-116); Anion Gap 12.5 mmol/L (3-11); BUN 19 mg/dL (7-18); Bilirubin, Total 0.5 mg/dL (0.2-1.0); CO2 27.5 mmol/L (21.0-32.0); CREATININE 1.4 mg/dL (0.55-1.02); Calcium 9.5 mg/dL (8.5-10.1); Chloride 101 mmol/L (98-107); Estimated GFR 44.99 (mL/min/1.73m2); Glucose 165 mg/dL (74-106); Magnesium 1.5 mg/dL (1.8-2.4); Sodium 141 mmol/L (136-145); Total Protein 7.6 g/dL (6.4-8.2); Troponin I < 50 ng/L (< or =60)
[2023-07-03 20:16] LABS: COVID-19 PCR Negative (Negative); Influenza A PCR Negative (Negative); Influenza B PCR Negative (Negative); RSV PCR Negative (Negative)
[2023-07-03 20:18] LABS: Source NASOPHARYNX
[2023-07-03] MEDS: Cefepime 2 GM VIAL (20:31)
[2023-07-03] MEDS: MAGNESIUM SULFATE 1 GM/100 ML BAG IVPB (20:31)
[2023-07-03] MEDS: Normal Saline Flush 10 ML SYR IVP (20:31)
[2023-07-03] MEDS: Potassium Chloride 20 MEQ TABCR 40 MEQ PO (20:32)
--- NOTE | 2023-07-03 21:51 | DI.VRAD_ITS ---
PROCEDURE INFORMATION: Exam: XR Chest Exam date and time: 07/03/2023 8:53 PM Age: 52 years old Clinical indication: Fever TECHNIQUE: Imaging protocol: Radiologic exam of the chest. Views: 2 views. COMPARISON: CT CHEST WO 12/15/2022 3:04 PM FINDINGS: Lungs: Normal pulmonary expansion. Pulmonary vasculature grossly normal. No gross pulmonary infiltrates or edema pattern. Pleural spaces: No pleural effusion. No pneumothorax. Heart/Mediastinum: Heart size normal. No tracheal/mediastinal shift. Vasculature: Mild aortic ectasia/tortuosity. Bones/joints: No acute osseous abnormalities are identified. IMPRESSION: No acute thoracic process. Dictated and Authenticated by: Blaine Tan MD. Ordering:SEAMUS Weinstein MD
[2023-07-03 21:58] LABS: Bilirubin Negative (Negative); Blood Negative (Negative); Clarity Clear (Clear); Glucose Negative (Negative); Ketones 15 mg/dL (Negative); Leukocyte Esterase Large (Negative); Nitrite Negative (Negative); Urobilinogen 0.2 mg/dL (Up to 0.2); pH 5.5 (5-8)
--- NOTE | 2023-07-03 21:58 | NUR.NOTE ---
report given and care relinquished to LORELEI Martinez
[2023-07-03 22:07] LABS: Bacteria Few HPF (Negative); C & S Indicated? No/Sq. Contamination; Casts 0-2 Hyaline LPF (Negative); Crystals Negative HPF (Negative); Epithelial Cells Many HPF (Negative); Mucus Trace (Negative); RBC 0-2 HPF (0-2); WBC >50 HPF (0-5)
[2023-07-03] MEDS: Normal Saline 1,000 ML 700 ML IV (22:20)
--- NOTE | 2023-07-03 22:32 | W.ED.GENAD ---
Discharge Plan Disposition Patient Disposition: Admit to [facility] Condition: Serious Discharge Details Clinical Impression: Cellulitis, Acute hypokalemia, Septic shock, HANH (acute kidney injury), Hypomagnesemia, Prolonged QT interval Primary Care Provider: Huyen Ramon ED Provider: Corinna Jernigan Home Meds and New Rx's Prescriptions: No Action glucagon 3 mg/actuation spray,non-aerosol 3 mg intranasal ONCE Qty: 1 3RF Rx Instructions: as a single dose (DME) Scalp Hair Prosthesis See Rx Instructions .Route .MEDSUPPLY Qty: 1 1RF Rx Instructions: Wear as recommendended (DME) Hair Prosthesis See Rx Instructions .Route .MEDSUPPLY Qty: 1 1RF Rx Instructions: As fitted/recommended for daily wear sertraline 25 mg tablet 25 mg PO DAILY Qty: 90 1RF Rx Instructions: Re-start low dose for mixed post-cheryl/GI symptoms lisinopril 5 mg tablet 5 mg PO BID Qty: 180 3RF Rx Instructions: Re-starting, trial daily x 1 week (DME) hair prosthesis See Rx Instructions .Route .MEDSUPPLY Qty: 1 1RF Rx Instructions: hair prosthesis for alopecia areata of scalp bariatric fusion chewable complete 2 tab tablet 2 100 ml PO DAILY (DME) Blood Glucose Test Strip See Rx Instructions .ROUTE .MEDSUPPLY Qty: 100 3RF Rx Instructions: As directed to check blood glucose daily. No insulin. Dispense covered brand. (DME) glucometer See Rx Instructions .Route .MEDSUPPLY Qty: 1 0RF Rx Instructions: As directed to manage, prevent hypoglycemic episodes (DME) lancets [Comfort Lancets] Misc See Rx Instructions .ROUTE .MEDSUPPLY Qty: 100 1RF Rx Instructions: As directed to check blood glucose daily. No insulin. Dispense covered brand. (DME) Blood Glucose Test Strip See Rx Instructions .ROUTE .MEDSUPPLY Qty: 350 3RF Rx Instructions: As directed to check blood glucose QID. No insulin. Dispense covered brand. acarbose 25 mg tablet 25 mg PO TID (DME) Dexcom G7 Sensor Device See Rx Instructions .Route Qty: 9 3RF Rx Instructions: As directed to check blood glucose. (DME) Dexcom G7 Mechanical Specialist Misc See Rx Instructions .ROUTE .MEDSUPPLY Qty: 1 0RF Rx Instructions: As directed to check blood glucose. bupropion HCl [Wellbutrin XL] 300 mg tablet extended release 24 hr 300 mg PO DAILY Qty: 90 3RF triamcinolone acetonide 0.5 % ointment 1 applic TP DAILY Qty: 30 1RF Rx Instructions: 1 FTU per hand BID (approx 2g/day) x 2 weeks, then rest, then PRN ondansetron HCl 4 mg tablet 4 mg PO Q8H PRN (Reason: nausea and vomiting) Qty: 20 3RF Rx Instructions: Use carefully (Yearly EKG 2' QT/QTc warning) potassium chloride 20 mEq tablet extended release 20 meq PO PRN PRN (Reason: hypokalemia) Qty: 30 2RF Rx Instructions: taking prn per lab test cgc pramipexole 0.25 mg tablet 0.25 mg PO BID Qty: 180 3RF Rx Instructions: Take at lunch time and 1 hour prior to bedtime venlafaxine [Effexor XR] 37.5 mg capsule,extended release 24hr 75 mg PO DAILY Qty: 180 3RF (DME) FreeStyle Christopher 2 Sensor Kit See Rx Instructions .ROUTE .MEDSUPPLY Qty: 1 0RF Rx Instructions: As directed (DME) FreeStyle Christopher 2 [place] Misc See Rx Instructions .ROUTE .MEDSUPPLY Qty: 1 0RF Rx Instructions: As directed hydrochlorothiazide 25 mg tablet 25 mg PO BID PRN (Reason: edema) Qty: 180 3RF Rx Instructions: PRN omeprazole 40 mg capsule,delayed release(DR/EC) 40 mg PO DAILY Qty: 90 3RF amiloride 5 mg tablet 5 mg PO BID Qty: 180 3RF Hold Instructions: until endocrine eval. Rx Instructions: Continue per Endocrine (07/2022+) (DME) Dexcom G7 Sensor Device See Rx Instructions .Route Qty: 1 0RF Rx Instructions: As directed (DME) Dexcom G7 Mechanical Specialist Misc See Rx Instructions .Route Qty: 1 0RF Rx Instructions: As directed gabapentin 800 mg tablet 800 mg PO BID Qty: 180 3RF Rx Instructions: Take at noon and 1 hour prior to bedtime for RLS HPI General Date/Time Provider Initiated Documentation: 07/03/23 19:18. HPI Narrative: 52-year-old female with history of CKD, hypertension, LVH, DU B, hyperglycemia, hypoglycemia hyperparathyroidism Nadia-en-Y gastric bypass presents with reports of acute onset of rigors at about 12:00 today. Went home checked her temp and it was 104. She states her finger has been a little bit tender and states she had a crack on it initially. She states that she then noticed redness today when she had a fever. She states that the pain is superficial where the opening on her heel is located. Denies history of illicit drug use. Denies any chest pain or shortness of breath. Denies dysuria or frequency. Denies any abdominal pain, nausea, vomiting. Took ibuprofen and Tylenol prior to arrival. Denies any significant pain when walking. States her foot has been bothersome for approximately 3 days. Mild headache denies stiff neck. Denies any cough. Denies known sick contacts. Related Data Home Medications Medication Instructions Recorded Confirmed bariatric fusion chewable complete 2 100 ml PO DAILY 12/28/20 07/03/23 blood sugar diagnostic (Blood #100 ea 04/10/21 07/03/23 Glucose Test strips) glucometer #1 ea 04/21/21 07/03/23 lancets (Comfort Lancets) #100 ea 04/26/21 07/03/23 glucagon 3 mg/actuation nasal spray 3 mg intranasal ONCE severe 07/22/21 07/03/23 hypoglycemia #1 ea blood sugar diagnostic (Blood #350 ea 03/29/22 07/03/23 Glucose Test strips) acarbose 25 mg tablet 25 mg PO TID 04/13/22 07/03/23 Hair Prosthesis #1 ea 06/02/22 07/03/23 Scalp Hair Prosthesis #1 ea 06/02/22 07/03/23 blood-glucose meter,continuous #1 ea 07/14/22 07/03/23 (Dexcom G7 Mechanical Specialist) blood-glucose sensor (Dexcom G7 #9 ea 07/14/22 07/03/23 Sensor device) bupropion HCl 300 mg 24 hr tablet, 300 mg PO DAILY #90 tabs 09/02/22 07/03/23 extended release (Wellbutrin XL) sertraline 25 mg tablet 25 mg PO DAILY #90 tab-caps 09/02/22 07/03/23 triamcinolone acetonide 0.5 % 1 applic topical DAILY #30 grams 11/14/22 07/03/23 topical ointment lisinopril 5 mg tablet 5 mg PO BID #180 tabs 02/10/23 07/03/23 ondansetron HCl 4 mg tablet 4 mg PO Q8H PRN nausea and 03/13/23 07/03/23 vomiting #20 tabs potassium chloride 20 mEq 20 meq PO PRN PRN hypokalemia #30 03/15/23 07/03/23 tablet,extended release tabs pramipexole 0.25 mg tablet 0.25 mg PO BID #180 tabs 04/18/23 07/03/23 venlafaxine 37.5 mg 75 mg (2 x 37.5 mg) PO DAILY #180 05/03/23 07/03/23 capsule,extended release 24 hr caps (Effexor XR) flash glucose scanning reader #1 ea 05/14/23 07/03/23 (FreeStyle Christopher 2 [place]) flash glucose sensor (FreeStyle #1 ea 05/14/23 07/03/23 Christopher 2 Sensor kit) hydrochlorothiazide 25 mg tablet 25 mg PO BID PRN edema #180 tabs 06/14/23 07/03/23 amiloride 5 mg tablet 5 mg PO BID #180 tabs 06/16/23 07/03/23 omeprazole 40 mg capsule,delayed 40 mg PO DAILY #90 tabs 06/16/23 07/03/23 release blood-glucose meter,continuous #1 ea 06/25/23 07/03/23 (Dexcom G7 Mechanical Specialist) blood-glucose sensor (Dexcom G7 #1 ea 06/25/23 07/03/23 Sensor device) gabapentin 800 mg tablet 800 mg PO BID #180 tabs 06/28/23 07/03/23 Previous Rx's Medication Instructions Recorded blood sugar diagnostic (Blood #100 ea 04/10/21 Glucose Test strips) glucometer #1 ea 04/21/21 lancets (Comfort Lancets) #100 ea 04/26/21 glucagon 3 mg/actuation nasal spray 3 mg intranasal ONCE severe 07/22/21 hypoglycemia #1 ea blood sugar diagnostic (Blood #350 ea 03/29/22 Glucose Test strips) Hair Prosthesis #1 ea 06/02/22 Scalp Hair Prosthesis #1 ea 06/02/22 blood-glucose meter,continuous #1 ea 07/14/22 (Dexcom G7 Mechanical Specialist) blood-glucose sensor (Dexcom G7 #9 ea 07/14/22 Sensor device) bupropion HCl 300 mg 24 hr tablet, 300 mg PO DAILY #90 tabs 09/02/22 extended release (Wellbutrin XL) sertraline 25 mg tablet 25 mg PO DAILY #90 tab-caps 09/02/22 triamcinolone acetonide 0.5 % 1 applic topical DAILY #30 grams 11/14/22 topical ointment lisinopril 5 mg tablet 5 mg PO BID #180 tabs 02/10/23 ondansetron HCl 4 mg tablet 4 mg PO Q8H PRN nausea and 03/13/23 vomiting #20 tabs potassium chloride 20 mEq 20 meq PO PRN PRN hypokalemia #30 03/15/23 tablet,extended release tabs pramipexole 0.25 mg tablet 0.25 mg PO BID #180 tabs 04/18/23 venlafaxine 37.5 mg 75 mg (2 x 37.5 mg) PO DAILY #180 05/03/23 capsule,extended release 24 hr caps (Effexor XR) flash glucose scanning reader #1 ea 05/14/23 (FreeStyle Christopher 2 [place]) flash glucose sensor (FreeStyle #1 ea 05/14/23 Christopher 2 Sensor kit) hydrochlorothiazide 25 mg tablet 25 mg PO BID PRN edema #180 tabs 06/14/23 amiloride 5 mg tablet 5 mg PO BID #180 tabs 06/16/23 omeprazole 40 mg capsule,delayed 40 mg PO DAILY #90 tabs 06/16/23 release blood-glucose meter,continuous #1 ea 06/25/23 (Dexcom G7 Mechanical Specialist) blood-glucose sensor (Dexcom G7 #1 ea 06/25/23 Sensor device) gabapentin 800 mg tablet 800 mg PO BID #180 tabs 06/28/23 Allergies Allergy/AdvReac Type Severity Reaction Status Date / Time atropine Allergy Intermediate HIVES, Verified 04/04/23 13:00 SWOLLEN spironolactone Allergy Intermediate Skin Rash Verified 04/04/23 13:00 eplerenone AdvReac Intermediate swelling; Verified 04/04/23 13:00 SOB General Stated Complaint: Fever JOBY: 3 Course Vital Signs Vital signs: Vital Signs Temperature 37.1 C 07/03/23 19:10 Pulse 118 H 07/03/23 19:10 Respiratory Rate 18 07/03/23 19:10 Blood Pressure 83/30 L 07/03/23 19:10 Pulse Oximetry 97 07/03/23 19:10 Temperature 37.1 C 07/03/23 19:10 Temperature Source Oral 07/03/23 19:10 Pulse 78 07/03/23 21:31 Pulse 97 H 07/03/23 21:40 Respiratory Rate 24 07/03/23 21:30 Respiratory Effort Normal 07/03/23 19:19 Blood Pressure 100/66 07/03/23 21:31 Blood Pressure Mean 81 07/03/23 21:30 Blood Pressure Position Sitting 07/03/23 19:10 Pulse Oximetry 98 07/03/23 21:40 Oxygen Delivery Method Room Air 07/03/23 19:10 Oxygen Flow Rate 0 07/03/23 19:10 Pain Level 6 07/03/23 21:17 Lab/Test Results Lab/Test Results: 07/03/23 20:25 Blood Blood Culture - Pending 07/03/23 19:21 Blood Blood Culture - Pending Laboratory Tests Range/Units 07/03/23 07/03/23 07/03/23 19:21 19:35 21:51 WBC (4.4-10.8) 10^3/uL 20.18 H RBC (3.93-5.22) 10^6/uL 5.19 Hgb (11.2-15.7) g/dL 14.3 Hct (36.0-46.0) % 41.9 MCV (80-95) fL 81 MCH (27.0-33.0) pg 27.6 MCHC (32.0-36.0) % 34.1 RDW (11.7-14.6) % 15.1 H Plt Count (130-400) 10^3/uL 355 MPV (8.0-11.0) fL 9.2 Immature Gran % 0.8 Neutrophils % 90.0 Lymphocytes % 4.4 Monocytes % 4.0 Eosinophils % 0.5 Basophils % 0.3 Nucleated RBC % (0.0-0.3) % 0.0 Absolute Neutrophils (1.2-6.7) 10^3/uL 18.16 H Absolute Lymphocytes (1.2-3.4) 10^3/uL 0.89 L Absolute Monocytes (0.1-0.8) 10^3/uL 0.81 H Absolute Eosinophils (0.0-0.7) 10^3/uL 0.10 Absolute Basophils (0.0-0.2) 10^3/uL 0.06 VBG pH (7.31-7.41) 7.45 H VBG pCO2 (41-51) mmHg 41 VBG pO2 mmHg 39 VBG HCO3 (23-28) mmol/L 28 VBG Total CO2 (24-29) mmol/L 25 VBG O2 Saturation % 76 VBG Base Excess (-2-3) mmol/L 4 H VBG Lactate (0.6-1.4) mmol/L 3.4 H* Sodium (136-145) mmol/L 141 Potassium (3.5-5.1) mmol/L 3.0 L Chloride (98-107) mmol/L 101 Carbon Dioxide (21.0-32.0) mmol/L 27.5 Anion Gap (3-11) mmol/L 12.5 H BUN (7-18) mg/dL 19 H Creatinine (0.55-1.02) mg/dL 1.4 H Est GFR (CKD-EPI 2020) (mL/min/1.73m2) 44.99 Glucose (74-106) mg/dL 165 H Calcium (8.5-10.1) mg/dL 9.5 Magnesium (1.8-2.4) mg/dL 1.5 L Total Bilirubin (0.2-1.0) mg/dL 0.5 AST (15-37) U/L 27 ALT (14-59) U/L 32 Alkaline Phosphatase (46-116) U/L 83 Troponin I (< or =60) ng/L < 50 Total Protein (6.4-8.2) g/dL 7.6 Albumin (3.4-5.0) g/dL 3.7 Procalcitonin ng/mL 3.0 Urine Color (Yellow) Yellow Urine Clarity (Clear) Clear Urine pH (5-8) 5.5 Ur Specific Allen (1.005-1.025) 1.020 Urine Protein (Neg-Trace) mg/dL Negative Urine Ketones (Negative) mg/dL 15 H Urine Blood (Negative) Negative Urine Nitrite (Negative) Negative Urine Bilirubin (Negative) Negative Urine Urobilinogen (Up to 0.2) mg/dL 0.2 Ur Leukocyte Esterase (Negative) Large H Urine RBC (0-2) HPF 0-2 Urine WBC (0-5) HPF >50 H Ur Epithelial Cells (Negative) HPF Many Urine Crystals (Negative) HPF Negative Urine Bacteria (Negative) HPF Few Urine Casts (Negative) LPF 0-2 Hyaline Urine Mucus (Negative) Trace Ur Culture Indicated? No/Sq. Contamination Urine Glucose (Negative) mg/dL Negative COVID-19 Source NASOPHARYNX SARS-CoV-2 (PCR) (Negative) Negative Influenza Type A (PCR) (Negative) Negative Influenza Type B (PCR) (Negative) Negative RSV (PCR) (Negative) Negative Range/Units 07/03/23 22:19 WBC (4.4-10.8) 10^3/uL RBC (3.93-5.22) 10^6/uL Hgb (11.2-15.7) g/dL Hct (36.0-46.0) % MCV (80-95) fL MCH (27.0-33.0) pg MCHC (32.0-36.0) % RDW (11.7-14.6) % Plt Count (130-400) 10^3/uL MPV (8.0-11.0) fL Immature Gran % Neutrophils % Lymphocytes % Monocytes % Eosinophils % Basophils % Nucleated RBC % (0.0-0.3) % Absolute Neutrophils (1.2-6.7) 10^3/uL Absolute Lymphocytes (1.2-3.4) 10^3/uL Absolute Monocytes (0.1-0.8) 10^3/uL Absolute Eosinophils (0.0-0.7) 10^3/uL Absolute Basophils (0.0-0.2) 10^3/uL VBG pH (7.31-7.41) VBG pCO2 (41-51) mmHg VBG pO2 mmHg VBG HCO3 (23-28) mmol/L VBG Total CO2 (24-29) mmol/L VBG O2 Saturation % VBG Base Excess (-2-3) mmol/L VBG Lactate (0.6-1.4) mmol/L Sodium (136-145) mmol/L Potassium (3.5-5.1) mmol/L Chloride (98-107) mmol/L Carbon Dioxide (21.0-32.0) mmol/L Anion Gap (3-11) mmol/L BUN (7-18) mg/dL Creatinine (0.55-1.02) mg/dL Est GFR (CKD-EPI 2020) (mL/min/1.73m2) Glucose (74-106) mg/dL Calcium (8.5-10.1) mg/dL Magnesium (1.8-2.4) mg/dL Total Bilirubin (0.2-1.0) mg/dL AST (15-37) U/L ALT (14-59) U/L Alkaline Phosphatase (46-116) U/L Troponin I (< or =60) ng/L Cancelled Total Protein (6.4-8.2) g/dL Albumin (3.4-5.0) g/dL Procalcitonin ng/mL Urine Color (Yellow) Urine Clarity (Clear) Urine pH (5-8) Ur Specific Allen (1.005-1.025) Urine Protein (Neg-Trace) mg/dL Urine Ketones (Negative) mg/dL Urine Blood (Negative) Urine Nitrite (Negative) Urine Bilirubin (Negative) Urine Urobilinogen (Up to 0.2) mg/dL Ur Leukocyte Esterase (Negative) Urine RBC (0-2) HPF Urine WBC (0-5) HPF Ur Epithelial Cells (Negative) HPF Urine Crystals (Negative) HPF Urine Bacteria (Negative) HPF Urine Casts (Negative) LPF Urine Mucus (Negative) Ur Culture Indicated? Urine Glucose (Negative) mg/dL COVID-19 Source SARS-CoV-2 (PCR) (Negative) Influenza Type A (PCR) (Negative) Influenza Type B (PCR) (Negative) RSV (PCR) (Negative) Medical Decision Making 52-year-old female presenting with rigors, fever, hypotension consistent with septic shock likely presence of acute cellulitis I did consider osteomyelitis, however patient is ambulatory and denies known trauma to the affected area, the pain appears superficial in nature and low suspicion clinically for osteomyelitis. Will treat empirically for cellulitis and hold on x-ray at this time. Patient denies risk of foreign body. MRI may be indicated should she not have symptomatic improvement with IV antibiotics Initially quite hypotensive at 80/30, fluid responsive likely in the presence of acute HANH with history of CKD, suspect prerenal, blood pressure at time of reassessment 120/80 Will hold on blood pressure medications Hypokalemia 3.0, hypomagnesemia 1.5, supplemented with 40 mEq of potassium and 1 g of magnesium Received sepsis bolus of 2700 mL of NS Reviewed patient's prior echocardiogram with ejection fraction 64% Spent approximately 5 minutes reviewing patient's prior outpatient assessments including Nadia-en-Y gastric bypass procedure Will initiate cefepime and vancomycin for empiric therapy for cellulitis Patient has no abdominal tenderness, lungs are clear to auscultation, cardiac rate rhythm regular, oropharynx patent, no meningismus, excoriated heel noted with cracking to heel region, with approximately 12 inch area of cellulitis adjacent, no crepitus, neurovascularly intact Patient will need admission to the hospitalist for septic shock treatment for cellulitis, case discussed with Dr. Dubose who will accept patient to his service Quality:[facility] Health Related Social Needs: No Data to Display Critical Care Time Critical Care Time Attestation: 45 minutes secondary to telemetry monitoring, iv antibiotics, diagnostic lab and interpretation of diagnostic imaging PFSH All Active Problems (Updated 07/03/23 @ 22:45 by CHAI Farooq) Prolonged QT interval (Acute) Hypomagnesemia (Acute) HANH (acute kidney injury) (Acute) Septic shock (Acute) Acute hypokalemia (Acute) Cellulitis (Acute) Arthritis of left glenohumeral joint (Acute) Menopausal symptoms (Acute) CKD (chronic kidney disease) stage 2, GFR 60-89 ml/min (Acute) New baseline?! Hx of hysterectomy for benign disease (Acute) benign, but painful/severe Ill feeling (Acute) Recent episodes of somnolence, off-balance & spells of being out of my body. Possibly psych rxn (2' anx, grief, milestones) .. but monitoring. Hypertension (Chronic) Hx HTN .. with med d/c post bariatric surg wt loss.. some elevated BPs, 05/2022, re-start low-dose lisinopril. LVH (left ventricular hypertrophy) (Acute) Newly noted, although Hx left axis dev (-90, -30) .. Hx HTN, Flash Pulm Edema (2019), obesity, s/p bariatric surgery. DUB (dysfunctional uterine bleeding) (Acute) Cont'd .. with 17 week sized uterus per pt rpt, 6/2/23 .. [ ] [facility] Surgery planned next Hypoglycemia (Acute) Hx BG < 35 per CGM Acute hypokalemia (Acute) Disorder of iron metabolism (Acute) Per 03/22/22 [facility] Gen surgery note Elevated PTHrP level (Acute) Per 03/22/22 [facility] Gen surgery note Hyperparathyroidism (Acute) Postprandial hypoglycemia (Acute) PP Hyperinsulinemic hypogly Dx per [facility] Endo (Echt). 04/2022. per observation and tel d/w Dr. Ortega (future Endo, Valerio).. vs exercise-induced Status post bariatric surgery (Acute) Successful weight loss, but dangerous, symptomatic HYPOglycemia [neg dumping syndrome per [facility]] Skin lesion (Acute) Mild wound, 2' probable abd intertrigo. Facial twitching (Acute) Nodule of left lung (Acute) 3mm, incidental finding, LLL (12/2020 CT). [ ] 6 mo FU.. Paresthesias (Acute) Hypotension (Acute) post gastric bypass ... lowering ACEi, BB, CCB. DIuretics in place 2' LE edema (albeit improved). Depressive disorder (Chronic 05/23/11) Wellbutrin 2012, discon 12/2012, restart 05/2013 Hx of Marylou thyroiditis (Acute) Imbalance (Acute) Cervical radiculopathy (Acute) Hematuria (Acute) Fatty liver (Acute) 10/02/18 Dr Schroeder/[facility] Migraine headache with aura (Chronic) DR. VALDEZ 08/29/11 [employer] works Vertigo and/or pain Uterine leiomyoma (Chronic 11/02/15) On pelvic ultrasound uterus enlarged approximate 13 cm. 08/04/2021 pelvic pain radiating from back. Serrated adenoma of colon (Acute 07/07/15) Dr. Contreras, sessile colonic polyp, inflammatory polyp Sensorineural hearing loss, bilateral (Chronic 11/01/17) Restless leg (Acute 03/31/15) Some relief with iron infusion (albeit reaction to infusion), 05/2018. 06/16/19 f/u at sleep clinic Reflux esophagitis (Acute 07/07/15) Dr. Contrreas gastritis Premenstrual dysphoric disorder (Acute 11/10/14) Gabriel Henderson MD [place] [facility] Positive TG (antinuclear antibody) (Acute 06/07/15) Mgrn wo aura wo [facility] mgr (Acute 09/05/11) DR. VALDEZ 08/29/11 [employer] works Vertigo and/or pain Incomplete tear of left rotator cuff (Acute 05/31/16) Alopecia areata (Acute 05/23/11) Dx'ed 1990s Hair prosthesis Medical History Scab of knee fell last week, rough/dry scab, but irritated .. Trial debride @ home, consider surgtery if tender. Diarrhea (10/29/15) Chronic, secretory .. s/p multiple [place], Bx. Trial cholestyramine, 10/2018, ik planned. 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 inner foot tenderness .. out of proportion tenderness .. possible assoc with fever? (improved with soaking, but not closing) Fever Over 1 week; T 103/102/99; Neg COVID; Awaiting Flu SARS-CoV-2 positive (~10/26/21) Dysmenorrhea [place] exposure Dtr (+) .. Sore Throat, lab [ ] Dumping syndrome (04/12/21) NOT per Bariatric Team.. Dx per [facility] Endo .. [facility] Bariatric Team re-eval as NEG for dumping syndrome, 05/2021 Class 3 severe obesity due to excess calories with body mass index (BMI) of 40.0 to 44.9 in adult 07/31/19 [facility] Complicated grieving Her basically healthy mo due to COVID19 infection. She was intubated within days of becoming sick, sending out a cheerful text 4 days beforehand! Monisha has cancelled the trip just before flights, etc were shut down; she was originally worried for her fa 2' health issues and dementia. Close-knit family; inability for gathering for .. video/webexed with family in [facility] (mo in [place]). Diabetes mellitus type 2 in obese Improved s/p bariatric surgery and wt loss BUT HYPOglycemia Encounter for insertion of venous access port on HOLD since K improvement 05/2019 Dehydration Preeclampsia Flash pulmonary edema Lymphedema referring to PT for evaluation and recommendations.. Bunion 12/24/18-nelson Yarbrough DPM Abnormal serum creatinine level (07/2018) Serious Creatinine elevation, with resolution between episodes of dehydration .. Sustained VT (ventricular tachycardia) during hypokalemia episode Angioedema 10/02/18 Dr Schroeder/[facility] Flushing 10/02/18 Dr Schroeder/[facility] Out of work (08/21/18) Recommend continuation of reduced hours due to continued electrolyte imbalances, fatigue and metabolic disorder. Unclear etiology makes it difficult to create a clear treatment plan, which in turn, makes routine and FT work difficult to manage. Revised [employer] Ppwk (06/2019). Solid, intermittent improvements, but unpredictable. 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 10/30/18, ik. I support time off from work due to continued electrolyte imbalances which cannot be explained. Re-referring to specialists @ [facility] as well as [facility]. Elevated plasma metanephrines (08/2018) Ordered by Endo, CT (Abd) [ ] ... follow up with Endo week of October 07. 08/2018, mian Kidney stone (02/27/12) Rectal hemorrhage (03/02/15) Dehydration (~08/21/18) Several episodes now .. She can almost gauge her K levels based on mm weakness. [ ] BMP [ ] IVF-KCl Bolus-K have helped with hypokalemia in between bouts of diarrhea/dehydration when IVF not needed. 09/2018, mian Rectal bleeding (03/02/15) Episodic - Was diagnosed with AVBrandon's Mgrn w aura w intrc mgrn (09/05/11) DR. VALDEZ 08/29/11 [employer] works Vertigo and/or pain Impaired fasting glucose (02/11/14) A1C 6.1% 12/2012 .. A1C 5.8 07/04/18. Hypokalemia (11/07/16) Chronic, possible 2' IBS/Diarrhea. Continued despite GI improvements, albeit improved. Trial Eplerenone, to be followed by HCTZ decrease. 10/09/18 Intermittent improvement, but unsteady and unpredictable .. Monisha seems unable to maintain her own K levels WNL w/o bolus/infusions at this time. Unable to tolerate K-sparing diuretics. Cont to research, evaluate, consult .. 09/2018, ik Essential hypertension (12/05/12) Elevated BPs, especially DBP. Hx high BP since of twins (20yrs), noted in Nephro note (2017). HCTZ used x years for HTN & Edema. Spirono not tolerated (Hives/Flush). Trial Eplerenone, 10/09/18, ik Unable to tolerate eplerenone, angioedema-like reactions to K-sparing diuretics.. 09/2018, ik Irritable bowel syndrome diarrhea predominant Alopecia Hx of adenomatous colonic polyps GERD (gastroesophageal reflux disease) Marylou's thyroiditis Depression Anemia Reflux esophagitis Surgical History S/P laparoscopic hysterectomy (~12/2022) Extensive lysis of adhesions, bilateral salpingectomy and cystoscopy, repair of vaginal lacerations for chronic pelvic pain and fibroid uterus. History of Nadia-en-Y gastric bypass (~11/2019) H/O colonoscopy (12/05/17) History of esophagogastroduodenoscopy (EGD) (12/05/17) Tonsillectomy section x3 Endometrial Ablation 2007 2012 EGD - MAC 2015 Colonoscopy - MAC (03/16/14) w/ bx 2016-serrated adenomatous polyp Most recent 12/05/2017 Family History Mother Pulmonary hypertension Heart disease valve replacement Father Prostate cancer Essential hypertension Parkinsons Sister Uterine cancer Brother Heart disease Father Hypertension Mother Heart disease Maternal Grandfather Diabetes Sister Age: 59 Cancer Other Colon cancer Social History Smoking/Tobacco Use Status: Never Smoking risk assessment performed?: Yes Alcohol Intake: current Alcohol Intake frequency: holidays/special occasions only Alcohol type: wine Drug use: Never Substance use type: does not use Adopted: No Caregiver/Support person: No Household members: spouse and other Details: Partner - Jayne, children Housing: house Number of Children: 4 number of grandchildren: 0 Communication Needs: Corrective Lenses Education Level: college current occupation: Daily today tested negative on this on the testing day negative negative di Pets and animals: Yes Pets and animals: cat(s) and dog(s) Sexually active: Yes Do you think of yourself as: lesbian/peña/homosexual Current gender identity: female What is your relationship status?: living with partner Panel score (0-1 are the most socially isolated patients): 1 What type of physical activity do you participate in: walking Duration: 15-30 minutes/day Frequency: 3-4 times per week Seatbelt use: always Working smoke detector in home: Yes Fire extinguisher in home: Yes Carbon monox detector in home: Yes Firearms in home: No Do you feel safe at home: Yes Do you feel safe in your relationship?: Yes Female Reproductive History Menstrual control method: permanent sterilization History History 3 Para 4 Hx # Term Pregnancies Multiple births 1 Hx # Pregnancies Ectopic pregnancies AB induced Hx Number of Living Children AB spontaneous
[2023-07-04] VITALS (11 sets, daily range): BP systolic 103–142; BP diastolic 71–81; PULSE 86–109; RESP 16–20; TEMP 36.7–40; O2SAT 93–99
--- NOTE | 2023-07-04 00:21 | W.PM.HP.N ---
Date of service: 07/04/23 Time of Service: 00:21 Assessment and Plan Assessment and plan (1) Septic shock: Status: Acute Assessment and plan: C/w sespsis with elevated WBC, lactate, and fever as well as a presume source of inflection in the left lower leg . Initially low blood pressure but has stabilized after fluid. She has received appropriate fluid resuscitatation and antibiotics and cultures started in ED. Continue broad antibiotics Vanco/cefemepime, get MRSA screen as may help us decided duration of vancomycin. (2) Cellulitis: Status: Acute Assessment and plan: LLE cellulitis is the presumed source of her sepsis. Infection may have entered in the chronic heel fissures. Work on skin care. (3) HANH (acute kidney injury): Status: Acute Assessment and plan: Likely pre-renal. S/p fluid bolus, follow. (4) Hypomagnesemia: Status: Acute Assessment and plan: Given 1g in ED, she may need more but await mornign labs. (5) Prolonged QT interval: Status: Acute Assessment and plan: Likely secondary to low K+ and Mg+. She is on telemetry. (6) Acute hypokalemia: Status: Acute Assessment and plan: This is acute, but she has had this issue before. We are replacing IV now and then PO. Treating low magnesium. follow. (7) Hypertension: Status: Chronic Assessment and plan: Holding her BP meds as BP was low on initial presention, but resume as she recovers. (8) Postprandial hypoglycemia: Status: Acute Assessment and plan: H/o dumping since bariatric surgery. She is on acarbose to help with this and has a CGM. (9) DVT prophylaxis: Status: Resolved Assessment and plan: LMWH (10) Discharge planning issues: Status: Acute Assessment and plan: She is feeling better already, but we discussed at least 48 hour admission is needed to ensure she is properly treated. History of Present Illness History of Present Illness Chief Complaint: rigors/chills Narrative: 52 yo F with history of type 2 DM in remission after bariatric surgery, HTN, and chronic heel fissures who presented to the emergency room after getting rigors at work this afternoon. She felt her normal state of health this monring and went to work. She does say she noticed some increased pain in her left heal and redness spreading to her ankle for the past 3 days, but didn't feel sick until today. At around noon she had sudden onset of shaking chills/rigors. She went home and checked her temperature which was 104. She also had a frontal headache. She took 800mg ibuprofen and acetaminophen (both around 2pm) and it helped her sympotms but she still felt bad so she came into emergency room. She has never had these symtpoms before. She has not had any sore throat, cough, runny nose, or other respiratory sytmpoms. She has no sick contacts. Review of Systems Constitutional Constitutional: Denies anorexia, Reports lethargy, Denies weakness, Denies weight gain and Denies weight loss Eyes Eyes: Denies change in vision and Denies irritation ENT Ears, Nose, Mouth, and Throat: Denies dizziness, Denies nasal congestion, Denies nasal discharge and Denies sore throat Cardiovascular Cardiovascular: Denies chest pain, Denies rapid heart rate, Denies lightheadedness, Denies palpitations, Denies dyspnea and Denies orthopnea Respiratory Respiratory: Denies chest congestion, Denies cough, Denies hemoptysis, Denies excessive phlegm production, Denies dyspnea and Denies wheezing Gastrointestinal Gastrointestinal: Denies abdominal pain, Denies heartburn, Denies diarrhea, Denies nausea and Denies vomiting Genitourinary Genitourinary: Denies hematuria, Denies dysuria and Denies urinary incontinence Musculoskeletal Musculoskeletal: Denies joint swelling Integumentary/Breasts Skin/Breast: Denies changing lesions, Reports unusual bruising (legs today) and Denies jaundice Neurologic Neurologic: Denies confusion, Denies dizziness, Denies sensory deficit and Denies weakness Psychiatric Psychiatric: Denies confusion and Denies mood swings Endocrine Endocrine: Reports flushing and Denies palpitations Hematologic/Lymphatic Hematologic/Lymphatic: Denies easy bleeding Allergic/Immunologic Allergic/Immunologic: Denies wheezing PFSH All Active Problems (Updated 07/04/23 @ 00:32 by Blaine Beckman) Discharge planning issues (Acute) Prolonged QT interval (Acute) Hypomagnesemia (Acute) HANH (acute kidney injury) (Acute) Septic shock (Acute) Acute hypokalemia (Acute) Cellulitis (Acute) Arthritis of left glenohumeral joint (Acute) Menopausal symptoms (Acute) CKD (chronic kidney disease) stage 2, GFR 60-89 ml/min (Acute) New baseline?! Hx of hysterectomy for benign disease (Acute) benign, but painful/severe Ill feeling (Acute) Recent episodes of somnolence, off-balance & spells of being out of my body. Possibly psych rxn (2' anx, grief, milestones) .. but monitoring. Hypertension (Chronic) Hx HTN .. with med d/c post bariatric surg wt loss.. some elevated BPs, 05/2022, re-start low-dose lisinopril. LVH (left ventricular hypertrophy) (Acute) Newly noted, although Hx left axis dev (-90, -30) .. Hx HTN, Flash Pulm Edema (2019), obesity, s/p bariatric surgery. DUB (dysfunctional uterine bleeding) (Acute) Cont'd .. with 17 week sized uterus per pt rpt, 09/01/22 .. [ ] [facility] [place] Hypoglycemia (Acute) Hx BG < 35 per CGM Acute hypokalemia (Acute) Disorder of iron metabolism (Acute) Per 03/22/22 [facility] [place] Elevated PTHrP level (Acute) Per 03/22/22 [facility] [place] Hyperparathyroidism (Acute) Postprandial hypoglycemia (Acute) PP Hyperinsulinemic hypogly Dx per [facility] [place] 04/2022. per observation and tel d/w Dr. Ortega (future Endo, [facility]).. vs exercise-induced Status post bariatric surgery (Acute) Successful weight loss, but dangerous, symptomatic HYPOglycemia [neg dumping syndrome per [facility]] Skin lesion (Acute) Mild wound, 2' probable abd intertrigo. Facial twitching (Acute) Nodule of left lung (Acute) 3mm, incidental finding, LLL (12/2020 CT). [ ] 6 mo FU.. Paresthesias (Acute) Hypotension (Acute) post gastric bypass ... lowering ACEi, BB, CCB. DIuretics in place 2' LE edema (albeit improved). Depressive disorder (Chronic 05/23/11) Wellbutrin 2012, discon 12/2012, restart 05/2013 Hx of Marylou thyroiditis (Acute) Imbalance (Acute) Cervical radiculopathy (Acute) Hematuria (Acute) Fatty liver (Acute) 10/02/18 Dr Schroeder/[facility] [place]raine headache with aura (Chronic) DR. VALDEZ 08/29/11 Topamax works Vertigo and/or pain Uterine leiomyoma (Chronic 11/02/15) On pelvic ultrasound uterus enlarged approximate 13 cm. 08/04/2021 pelvic pain radiating from back. Serrated adenoma of colon (Acute 07/07/15) Dr. Contreras, sessile colonic polyp, inflammatory polyp Sensorineural hearing loss, bilateral (Chronic 11/01/17) Restless leg (Acute 03/31/15) Some relief with iron infusion (albeit reaction to infusion), 05/2018. 06/16/19 f/u at sleep clinic Reflux esophagitis (Acute 07/07/15) Dr. Contreras gastritis Premenstrual dysphoric disorder (Acute 11/10/14) Gabriel Henderson MD [facility] Positive TG (antinuclear antibody) (Acute 06/07/15) Mgrn wo aura wo ntrc mgr (Acute 09/05/11) DR. VALDEZ 08/29/11 [email or web address] works Vertigo and/or pain Incomplete tear of left rotator cuff (Acute 05/31/16) Alopecia areata (Acute 05/23/11) Dx'ed 1990s Hair prosthesis Medical History Scab of knee fell last week, rough/dry scab, but irritated .. Trial debride @ home, consider surgtery if tender. Diarrhea (10/29/15) Chronic, secretory .. s/p multiple Dexter, Bx. Trial cholestyramine, 10/2018, ik planned. 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 inner foot tenderness .. out of proportion tenderness .. possible assoc with fever? (improved with soaking, but not closing) Fever Over 1 week; T 103/102/99; Neg COVID; Awaiting Flu SARS-CoV-2 positive (~10/26/21) Dysmenorrhea Tillman exposure Dtr (+) .. Sore Throat, lab [ ] Dumping syndrome (04/12/21) NOT per Bariatric Team.. Dx [place] [facility] [place] [facility] [place]ariatric Team re-eval as NEG for dumping syndrome, 05/2021 Class 3 severe obesity due to excess calories with body mass index (BMI) of 40.0 to 44.9 in adult 07/31/19 [facility] Complicated grieving Her basically healthy mo due to COVID19 infection. She was intubated within days of becoming sick, sending out a cheerful text 4 days beforehand! Monisha has cancelled the trip just before flights, etc were shut down; she was originally worried for her fa 2' health issues and dementia. Close-knit family; inability for gathering for .. video/webexed with family in [place] (mo in Fl). Diabetes mellitus type 2 in obese Improved s/p bariatric surgery and wt loss BUT HYPOglycemia Encounter for insertion of venous access port on HOLD since K improvement 05/2019 Dehydration Preeclampsia Flash pulmonary edema Lymphedema referring to PT for evaluation and recommendations.. Bunion 12/24/18-nelson Yarbrough DPM Abnormal serum creatinine level (07/2018) Serious Creatinine elevation, with resolution between episodes of dehydration .. Sustained VT (ventricular tachycardia) during hypokalemia episode Angioedema 10/02/18 Dr Schroeder/[facility] [place] Flushing 10/02/18 Dr Schroeder/[facility] [place] of work (08/21/18) Recommend continuation of reduced hours due to continued electrolyte imbalances, fatigue and metabolic disorder. Unclear etiology makes it difficult to create a clear treatment plan, which in turn, makes routine and FT work difficult to manage. Revised [employer] Ppwk (06/2019). Solid, intermittent improvements, but unpredictable. 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 10/30/18, mian. I support time off from work due to continued electrolyte imbalances which cannot be explained. Re-referring to specialists @ [facility] [place] well as [facility]. Elevated plasma metanephrines (08/2018) Ordered by [place], [place] (Abd) [ ] ... follow up with Endo week of October 07. 08/2018, mian Kidney stone (02/27/12) Rectal hemorrhage (03/02/15) Dehydration (~08/21/18) Several episodes now .. She can almost gauge her K levels based on mm weakness. [ ] BMP [ ] IVF-KCl Bolus-K have helped with hypokalemia in between bouts of diarrhea/dehydration when IVF not needed. 09/2018, mian Rectal bleeding (03/02/15) Episodic - Was diagnosed with AVM's Mgrn w aura w intrc mgrn (09/05/11) DR. VALDEZ 08/29/11 [employer] works Vertigo and/or pain Impaired fasting glucose (02/11/14) A1C 6.1% 12/2012 .. A1C 5.8 07/04/18. Hypokalemia (11/07/16) Chronic, possible 2' IBS/Diarrhea. Continued despite GI improvements, albeit improved. Trial Eplerenone, to be followed by HCTZ decrease. 10/09/18 Intermittent improvement, but unsteady and unpredictable .. Monisha seems unable to maintain her own K levels WNL w/o bolus/infusions at this time. Unable to tolerate K-sparing diuretics. Cont to research, evaluate, consult .. 09/2018, mian Essential hypertension (12/05/12) Elevated BPs, especially DBP. Hx high BP since of twins (20yrs), noted in Nephro note (2017). HCTZ used x years for HTN & Edema. Spirono not tolerated (Hives/Flush). Trial Eplerenone, 10/09/18, mian Unable to tolerate eplerenone, angioedema-like reactions to K-sparing diuretics.. 09/2018, mian Irritable bowel syndrome diarrhea predominant Alopecia Hx of adenomatous colonic polyps GERD (gastroesophageal reflux disease) Marylou's thyroiditis Depression Anemia Reflux esophagitis Surgical History S/P laparoscopic hysterectomy (~12/2022) Extensive lysis of adhesions, bilateral salpingectomy and cystoscopy, repair of vaginal lacerations for chronic pelvic pain and fibroid uterus. History of Nadia-en-Y gastric bypass (~11/2019) H/O colonoscopy (12/05/17) History of esophagogastroduodenoscopy (EGD) (12/05/17) Tonsillectomy section x3 Endometrial Ablation 2007 2012 EGD - MAC 2016 Colonoscopy - MAC (03/16/14) w/ bx 2016-serrated adenomatous polyp Most recent 12/05/2017 Family History Mother Pulmonary hypertension Heart disease valve replacement Father Prostate cancer Essential hypertension Parkinsons Sister Uterine cancer Brother Heart disease Father Hypertension Mother Heart disease Maternal Grandfather Diabetes Sister Age: 59 Cancer Other Colon cancer Social History (Updated 07/04/23 @ 00:29 by Blaine Beckman) Smoking/Tobacco Use Status: Never Smoking risk assessment performed?: Yes Alcohol Intake: current Alcohol Intake frequency: holidays/special occasions only Alcohol type: wine Drug use: Never Substance use type: does not use Adopted: No Caregiver/Support person: No Household members: spouse and other Details: Partner - Jayne, children Housing: house Number of Children: 4 number of grandchildren: 0 Communication Needs: Corrective Lenses Education Level: college current occupation: Daily today tested negative on this on the testing day negative negative di Pets and animals: Yes Pets and animals: cat(s) and dog(s) Sexually active: Yes Do you think of yourself as: lesbian/peña/homosexual Current gender identity: female What is your relationship status?: living with partner Panel score (0-1 are the most socially isolated patients): 1 What type of physical activity do you participate in: walking Duration: 15-30 minutes/day Frequency: 3-4 times per week Seatbelt use: always Working smoke detector in home: Yes Fire extinguisher in home: Yes Carbon monox detector in home: Yes Firearms in home: No Do you feel safe at home: Yes Do you feel safe in your relationship?: Yes Additional Social history: Lives in [place] with Jayne and their 2 18 yo girls, 4 older kids out of home. Runs [employer] at [employer]. Female Reproductive History Menstrual control method: permanent sterilization History History 3 Para 4 Hx # Term Pregnancies Multiple births 1 Hx # Pregnancies Ectopic pregnancies AB induced Hx Number of Living Children AB spontaneous Meds Allergies and Home Medications Allergies Allergy/AdvReac Type Severity Reaction Status Date / Time atropine Allergy Intermediate HIVES, Verified 04/04/23 13:00 SWOLLEN spironolactone Allergy Intermediate Skin Rash Verified 04/04/23 13:00 eplerenone AdvReac Intermediate swelling; Verified 04/04/23 13:00 SOB Home Medications Medication Instructions Recorded Confirmed Type Hair Prosthesis #1 ea 05/19/15 07/03/23 Clinic bariatric fusion chewable complete 2 100 ml PO DAILY 12/28/20 07/03/23 History blood sugar diagnostic (Blood #100 ea 04/10/21 07/03/23 Rx Glucose Test strips) glucometer #1 ea 04/21/21 07/03/23 Rx lancets (Comfort Lancets) #100 ea 04/26/21 07/03/23 Rx glucagon 3 mg/actuation nasal spray 3 mg intranasal ONCE severe 07/22/21 07/03/23 Rx hypoglycemia #1 ea blood sugar diagnostic (Blood #350 ea 03/29/22 07/03/23 Rx Glucose Test strips) acarbose 25 mg tablet 25 mg PO TID 04/13/22 07/03/23 History Hair Prosthesis #1 ea 06/02/22 07/03/23 Rx Scalp Hair Prosthesis #1 ea 06/02/22 07/03/23 Rx blood-glucose meter,continuous #1 ea 07/14/22 07/03/23 Rx (Dexcom G7 Lawnmower Repair Mechanic) blood-glucose sensor (Dexcom G7 #9 ea 07/14/22 07/03/23 Rx Sensor device) bupropion HCl 300 mg 24 hr tablet, 300 mg PO DAILY #90 tabs 09/02/22 07/03/23 Rx extended release (Wellbutrin XL) sertraline 25 mg tablet 25 mg PO DAILY #90 tab-caps 09/02/22 07/03/23 Rx triamcinolone acetonide 0.5 % 1 applic topical DAILY #30 grams 11/14/22 07/03/23 Rx topical ointment lisinopril 5 mg tablet 5 mg PO BID #180 tabs 02/10/23 07/03/23 Rx ondansetron HCl 4 mg tablet 4 mg PO Q8H PRN nausea and 03/13/23 07/03/23 Rx vomiting #20 tabs potassium chloride 20 mEq 20 meq PO PRN PRN hypokalemia #30 03/15/23 07/03/23 Rx tablet,extended release tabs pramipexole 0.25 mg tablet 0.25 mg PO BID #180 tabs 04/18/23 07/03/23 Rx venlafaxine 37.5 mg 75 mg (2 x 37.5 mg) PO DAILY #180 05/03/23 07/03/23 Rx capsule,extended release 24 hr caps (Effexor XR) flash glucose scanning reader #1 ea 05/14/23 07/03/23 Rx (FreeStyle Christopher 2 [place]) flash glucose sensor (FreeStyle #1 ea 05/14/23 07/03/23 Rx Christopher 2 Sensor kit) hydrochlorothiazide 25 mg tablet 25 mg PO BID PRN edema #180 tabs 06/14/23 07/03/23 Rx amiloride 5 mg tablet 5 mg PO BID #180 tabs 06/16/23 07/03/23 Rx omeprazole 40 mg capsule,delayed 40 mg PO DAILY #90 tabs 06/16/23 07/03/23 Rx release blood-glucose meter,continuous #1 ea 06/25/23 07/03/23 Rx (Dexcom G7 Lawnmower Repair Mechanic) blood-glucose sensor (Dexcom G7 #1 ea 06/25/23 07/03/23 Rx Sensor device) gabapentin 800 mg tablet 800 mg PO BID #180 tabs 06/28/23 07/03/23 Rx Exam Narrative Exam Narrative: GEN: Alert and oriented, pleasant and cooperative, gives linear history. No acute distress at rest. HEENT: Head atraumatic. Conjunctiva clear, no icterus. PEERL, EOMI. no rhinorrhea. MMM, OP benign. Neck is supple with no masses or lymphadenopathy, trachea midline LUNGS: CTAB with normal effort CV: RRR with no murmurs, gallops, or rubs. ABD: +BS, soft, NT/ND EXT: no cyanosis, clubbing, or edema. Inflammed left leg is tender (see below) MSK: No joint redness or swelling NEURO: CN 2-12 grossly intact. Normal movement of 4 extremities. Normal speech and coordination. no tremor SKIN: Normal color. Skin dry. Thick and fissuring both heals, left more tender, no open wounds. Red patch form left foot up to mid springer PSYCH: normal mood and affect Results Labs 07/03/23 19:21 07/03/23 19:21 Labs: Laboratory Results - last 24 hr 07/03/23 07/03/23 07/03/23 19:21 19:35 21:51 WBC 20.18 H RBC 5.19 Hgb 14.3 Hct 41.9 MCV 81 MCH 27.6 MCHC 34.1 RDW 15.1 H Plt Count 355 MPV 9.2 Immature Gran % 0.8 Neutrophils % 90.0 Lymphocytes % 4.4 Monocytes % 4.0 Eosinophils % 0.5 Basophils % 0.3 Nucleated RBC % 0.0 Absolute Neutrophils 18.16 H Absolute Lymphocytes 0.89 L Absolute Monocytes 0.81 H Absolute Eosinophils 0.10 Absolute Basophils 0.06 VBG pH 7.45 H VBG pCO2 41 VBG pO2 39 VBG HCO3 28 VBG Total CO2 25 VBG O2 Saturation 76 VBG Base Excess 4 H VBG Lactate 3.4 H* Sodium 141 Potassium 3.0 L Chloride 101 Carbon Dioxide 27.5 Anion Gap 12.5 H BUN 19 H Creatinine 1.4 H Est GFR (CKD-EPI 2020) 44.99 Glucose 165 H Calcium 9.5 Magnesium 1.5 L Total Bilirubin 0.5 AST 27 ALT 32 Alkaline Phosphatase 83 Troponin I < 50 Total Protein 7.6 Albumin 3.7 Procalcitonin 3.0 Urine Color Yellow Urine Clarity Clear Urine pH 5.5 Ur Specific [place] 1.020 Urine Protein Negative Urine Ketones 15 H Urine Blood Negative Urine Nitrite Negative Urine Bilirubin Negative Urine Urobilinogen 0.2 Ur Leukocyte Esterase Large H Urine RBC 0-2 Urine WBC >50 H Ur Epithelial Cells Many Urine Crystals Negative Urine Bacteria Few Urine Casts 0-2 Hyaline Urine Mucus Trace Ur Culture Indicated? No/Sq. Contamination Urine Glucose Negative COVID-19 Source NASOPHARYNX SARS-CoV-2 (PCR) Negative Influenza Type A (PCR) Negative Influenza Type B (PCR) Negative RSV (PCR) Negative 07/03/23 22:19 WBC RBC Hgb Hct MCV MCH MCHC RDW Plt Count MPV Immature Gran % Neutrophils % Lymphocytes % Monocytes % Eosinophils % Basophils % Nucleated RBC % Absolute Neutrophils Absolute Lymphocytes Absolute Monocytes Absolute Eosinophils Absolute Basophils VBG pH VBG pCO2 VBG pO2 VBG HCO3 VBG Total CO2 VBG O2 Saturation VBG Base Excess VBG Lactate Sodium Potassium Chloride Carbon Dioxide Anion Gap BUN Creatinine Est GFR (CKD-EPI 2020) Glucose Calcium Magnesium Total Bilirubin AST ALT Alkaline Phosphatase Troponin I Cancelled Total Protein Albumin Procalcitonin Urine Color Urine Clarity Urine pH Ur Specific [place] Urine Protein Urine Ketones Urine Blood Urine Nitrite Urine Bilirubin Urine Urobilinogen Ur Leukocyte Esterase Urine RBC Urine WBC Ur Epithelial Cells Urine Crystals Urine Bacteria Urine Casts Urine Mucus Ur Culture Indicated? Urine Glucose COVID-19 Source SARS-CoV-2 (PCR) Influenza Type A (PCR) Influenza Type B (PCR) RSV (PCR) Last Vital Signs Temp 39 C H 07/04/23 00:14 Pulse 104 H 07/04/23 00:14 Resp 20 07/04/23 00:14 BP 133/78 07/04/23 00:14 Pulse Ox 99 07/04/23 00:14 Time Spent Time spent with Patient: 55-74 minutes Time was spent: preparing to see the patient(eg.review tests), obtaining and/or reviewing separately otained hiistory, ordering medications,tests, procedures, referring, communicating with other health home care aide, indepentently interpreting results and counseling the patient
[2023-07-04] MEDS: Venlafaxine 37.5 MG CAPCR 75 MG PO ×2 (00:59→21:02)
[2023-07-04] MEDS: oxyCODONE 5 MG TAB PO ×3 (01:00→10:07)
[2023-07-04] MEDS: Gabapentin 800 MG TAB PO ×3 (01:00→21:02)
[2023-07-04] MEDS: Pramipexole 0.25 MG TAB PO ×3 (01:00→21:02)
[2023-07-04] MEDS: Acetaminophen 325 MG TAB PO ×4 (01:01→14:13)
[2023-07-04 04:49] LABS: MRSA PCR Negative (Negative)
[2023-07-04 07:04] LABS: Abs Immature Grans 0.34 10^3/uL (0.0-0.06); Absolute Basophil Count 0.06 10^3/uL (0.0-0.2); Basophils % 0.3; Eosinophils % 0.7; HCT 35.7 % (36.0-46.0); HGB 12.1 g/dL (11.2-15.7); Immature Grans % 1.6; Lymphocytes % 2.9; MCH 27.7 pg (27.0-33.0); MCHC 33.9 % (32.0-36.0); MCV 82 fL (80-95); MPV 9.6 fL (8.0-11.0); Monocytes % 2.1; Neutrophils % 92.4; Platelet Count 302 10^3/uL (130-400); RBC 4.37 10^6/uL (3.93-5.22); RDW-SD 47.8 fL; WBC 21.37 10^3/uL (4.4-10.8)
[2023-07-04 07:07] LABS: Absolute Eosinophil Count 0.15 10^3/uL (0.0-0.7); Absolute Lymphocyte Count 0.62 10^3/uL (1.2-3.4); Absolute Monocyte Count 0.45 10^3/uL (0.1-0.8); Absolute Neutrophil Count 19.75 10^3/uL (1.2-6.7)
[2023-07-04 07:26] LABS: Anion Gap 9.8 mmol/L (3-11); BUN 20 mg/dL (7-18); CO2 27.2 mmol/L (21.0-32.0); CREATININE 1.3 mg/dL (0.55-1.02); Calcium 8.7 mg/dL (8.5-10.1); Chloride 105 mmol/L (98-107); Estimated GFR 49.17 (mL/min/1.73m2); Glucose 151 mg/dL (74-106); Magnesium 1.9 mg/dL (1.8-2.4); Sodium 142 mmol/L (136-145)
[2023-07-04] MEDS: Omeprazole 20 MG CAPCR 40 MG PO (08:23)
[2023-07-04] MEDS: buPROPion-XL 150 MG TABCR 300 MG PO (08:23)
[2023-07-04] MEDS: Potassium Chloride 20 MEQ TABCR PO (08:23)
[2023-07-04] MEDS: Normal Saline Flush 10 ML SYR IVP ×3 (08:24→21:03)
[2023-07-04] MEDS: Enoxaparin 40 MG/0.4 ML SYR SC (08:24)
[2023-07-04] MEDS: CEFEPIME 2 GM in Normal Saline 100 ML IVPB ×2 (08:24→20:59)
--- NOTE | 2023-07-04 09:52 | PGE_ITS ---
Date of Service Date of service: 07/04/23 Time of Service: 09:52 Assessment and Plan Assessment and plan (1) Severe sepsis: Status: Acute Assessment and plan: Meeting sepsis criteria with elevated WBC 21, lactate 3.4 , and fever 40 C as well as a presume source of inflection in the left lower leg .Moreover the patient presented with SBP 75 to 86 that responded to FR of 2700ml Broad spectrum antibiotics started : Vancomycin and Cefepime Cultures started in ED, results pending Continue antibiotics Vanco/cefepime, MRSA nares is negative but will wait for blood cultures at 24 hours Wound cultures from left heel fissure Lactate was 3.4-3.3, repeat lactate in AM Hx of flush pulmonary edema in 2019but reported dizziness and ligheadedness this PM when OOB, will do slow rate IV hydration overnight and consider further IVF, PRN low volume bolus for SBP< 100 or MAP <65 (2) Cellulitis: Status: Acute Assessment and plan: LLE cellulitis is the presumed source of her sepsis. Monitor and delimit the redness Wound consult for heel fissure (3) HANH (acute kidney injury): Status: Acute Assessment and plan: Likely pre-renal. Cr 1.3 from1.4 BMP in AM Continue to monitor (4) Hypomagnesemia: Status: Acute Assessment and plan: Given 1g in ED, she may need more but await mornign labs. Mag 1.9 (5) Prolonged QT interval: Status: Acute Assessment and plan: On telemetry QTC , no further report of QTC prolongation (6) Acute hypokalemia: Status: Acute Assessment and plan: K 4.0 BMP in AM (7) Hypertension: Status: Chronic Assessment and plan: Still holding her BP meds as BP was low on initial presention Gadually reintroduce when hemodynamically stable (8) Postprandial hypoglycemia: Status: Acute Assessment and plan: Dumping syndrom Hx since bariatric surgery. Continue acarbose to help with this and has a CGM. Gluc 1 hour PC (9) DVT prophylaxis: Status: Resolved Assessment and plan: Continue lovenox (10) Discharge planning issues: Status: Acute Assessment and plan: She is feeling better but awaiting Blood culture results to know extent of admission Discussed with Dr. Hodge Subjective Subjective Patient reports: feels better, still having pain, tolerating liquids well, tolerating a regular diet, voiding w/o difficulty, flatus, no bowel movement, nausea and fever; denies diarrhea, vomiting or shortness of breath Exam Narrative Exam Narrative: Constitutional The patient is in bed uncomfortable, DYER,fever, Jayne at bedside and cooperative during the interview. HENMT: Facial structures with normal appearance Eyes: Well aligned, intact ROM Neck: Normal ROM, no meningeal signs Neuro:alert and oriented to self, person, place time and situation. No neurological focal deficit Chest:Chest is symmetrical and normal appearance Resp: Normal respiratory pattern, speaks in full sentences, unlabored breathing, clear lung bilaterally Cardio: regular rhythm, S1, S2, no murmur, capillary refill<3 sec., bilateral radial and dorsalis pedis pulses are positive, palpable GI: Abdomen is not distended, soft and non tender, bowel sounds are present : Negative Costovertebral angle tenderness, no bladder distension Back/spine/Pelvis: No back tenderness, normal alignment Integumentary: No skin lesions or rash, flushed face, redness to LLE's increasing. Will be remarked by RN Extremities: strength 5/5 to bilateral lower and upper extremities Psych: RASS 0, congruent mood and normal affect. Objective Last Vital Signs Temp 38.8 C H 07/04/23 08:40 Pulse 107 H 07/04/23 07:04 Resp 20 07/04/23 07:04 BP 126/81 07/04/23 07:04 Pulse Ox 95 07/04/23 07:04 Laboratory Results - last 24 hr 07/03/23 07/03/23 07/03/23 19:21 19:35 21:51 WBC 20.18 H RBC 5.19 Hgb 14.3 Hct 41.9 MCV 81 MCH 27.6 MCHC 34.1 RDW 15.1 H Plt Count 355 MPV 9.2 Immature Gran % 0.8 Neutrophils % 90.0 Lymphocytes % 4.4 Monocytes % 4.0 Eosinophils % 0.5 Basophils % 0.3 Nucleated RBC % 0.0 Absolute Neutrophils 18.16 H Absolute Lymphocytes 0.89 L Absolute Monocytes 0.81 H Absolute Eosinophils 0.10 Absolute Basophils 0.06 VBG pH 7.45 H VBG pCO2 41 VBG pO2 39 VBG HCO3 28 VBG Total CO2 25 VBG O2 Saturation 76 VBG Base Excess 4 H VBG Lactate 3.4 H* Sodium 141 Potassium 3.0 L Chloride 101 Carbon Dioxide 27.5 Anion Gap 12.5 H BUN 19 H Creatinine 1.4 H Est GFR (CKD-EPI 2020) 44.99 Glucose 165 H Calcium 9.5 Magnesium 1.5 L Total Bilirubin 0.5 AST 27 ALT 32 Alkaline Phosphatase 83 Troponin I < 50 Total Protein 7.6 Albumin 3.7 Procalcitonin 3.0 Urine Color Yellow Urine Clarity Clear Urine pH 5.5 Ur Specific [place] 1.020 Urine Protein Negative Urine Ketones 15 H Urine Blood Negative Urine Nitrite Negative Urine Bilirubin Negative Urine Urobilinogen 0.2 Ur Leukocyte Esterase Large H Urine RBC 0-2 Urine WBC >50 H Ur Epithelial Cells Many Urine Crystals Negative Urine Bacteria Few Urine Casts 0-2 Hyaline Urine Mucus Trace Ur Culture Indicated? No/Sq. Contamination Urine Glucose Negative COVID-19 Source NASOPHARYNX SARS-CoV-2 (PCR) Negative Influenza Type A (PCR) Negative Influenza Type B (PCR) Negative RSV (PCR) Negative MRSA (TEM-PCR) 07/03/23 07/04/23 07/04/23 22:19 02:15 06:52 WBC 21.37 H RBC 4.37 Hgb 12.1 D Hct 35.7 L MCV 82 MCH 27.7 MCHC 33.9 RDW 16.0 H Plt Count 302 MPV 9.6 Immature Gran % 1.6 Neutrophils % 92.4 Lymphocytes % 2.9 Monocytes % 2.1 Eosinophils % 0.7 Basophils % 0.3 Nucleated RBC % 0.0 Absolute Neutrophils 19.75 H Absolute Lymphocytes 0.62 L Absolute Monocytes 0.45 Absolute Eosinophils 0.15 Absolute Basophils 0.06 VBG pH VBG pCO2 VBG pO2 VBG HCO3 VBG Total CO2 VBG O2 Saturation VBG Base Excess VBG Lactate 3.3 H* Sodium 142 Potassium 4.0 D Chloride 105 Carbon Dioxide 27.2 Anion Gap 9.8 BUN 20 H Creatinine 1.3 H Est GFR (CKD-EPI 2020) 49.17 Glucose 151 H Calcium 8.7 Magnesium 1.9 Total Bilirubin AST ALT Alkaline Phosphatase Troponin I Cancelled Total Protein Albumin Procalcitonin Urine Color Urine Clarity Urine pH Ur Specific [place] Urine Protein Urine Ketones Urine Blood Urine Nitrite Urine Bilirubin Urine Urobilinogen Ur Leukocyte Esterase Urine RBC Urine WBC Ur Epithelial Cells Urine Crystals Urine Bacteria Urine Casts Urine Mucus Ur Culture Indicated? Urine Glucose COVID-19 Source SARS-CoV-2 (PCR) Influenza Type A (PCR) Influenza Type B (PCR) RSV (PCR) MRSA (TEM-PCR) Negative Time Spent with Patient Time Spent with Patient: >50 minutes Time was spent: preparing to see the patient(eg.review tests), obtaining and/or reviewing separately otained hiistory, ordering medications,tests, procedures, referring, communicating with other health pharmacy care coordinator, indepentently interpreting results, counseling the patient and care coordination
[2023-07-04] MEDS: Ibuprofen 400 MG TAB PO ×2 (11:20→21:02)
[2023-07-04] MEDS: Ondansetron O.D.T. 4 MG TABEF PO (11:21)
--- NOTE | 2023-07-04 11:56 | PHA.REVIEW2 ---
Pharmacy Admission Review Admission Clinical Review Admission Pharmacy Review: Discharge planning issues (Acute) Prolonged QT interval (Acute) Hypomagnesemia (Acute) HANH (acute kidney injury) (Acute) Septic shock (Acute) Acute hypokalemia (Acute) Cellulitis (Acute) Postprandial hypoglycemia (Acute) atropine Allergy (Intermediate, Verified 04/04/23 13:00) HIVES, SWOLLEN spironolactone Allergy (Intermediate, Verified 04/04/23 13:00) Skin Rash eplerenone Adverse Reaction (Intermediate, Verified 04/04/23 13:00) swelling; SOB Resuscitation Status Full Code Height 5 ft 4 in Weight 95.9 kg Pharmacy Admission Review Renal Dosing Renal Dosing: BUN 20 mg/dL (7-18) H 07/04/23 06:52 Creatinine 1.3 mg/dL (0.55-1.02) H 07/04/23 06:52 Medications needing adjustments: Reviewed (CrCl 56.19 mL/min, BUN increased from 19 to 20, SCr decreased from 1.4 to 1.3) List of meds needing interventions: Current medications are okay Anticoagulation Anticoagulation: Hgb 12.1 g/dL (11.2-15.7) D 07/04/23 06:52 Hct 35.7 % (36.0-46.0) L 07/04/23 06:52 Plt Count 302 10^3/uL (130-400) 07/04/23 06:52 Creatinine 1.3 mg/dL (0.55-1.02) H 07/04/23 06:52 DVT Prophylaxis: Reviewed Medications: Enoxaparin (40mg daily) Opiate Usage Evaluate Pain Scale/Pains Meds: Reviewed (PRN oxycodone) Scheduled Bowel Reg ordered if on Opiates?: No Relevant Labs Relevant Labs: Sodium 142 mmol/L (136-145) 07/04/23 06:52 Potassium 4.0 mmol/L (3.5-5.1) D 07/04/23 06:52 Chloride 105 mmol/L (98-107) 07/04/23 06:52 Magnesium 1.9 mg/dL (1.8-2.4) 07/04/23 06:52 Electrolytes, C-Reactive P, ESR: Reviewed (Hgb decreased from 14.3 to 12.1) Cardiac Review Cardiac Review: Troponin I Cancelled 07/03/23 22:19 BP, HR, EF%: Reviewed (BP WNL, HR 109) QTc Review QTc: Reviewed (511 from 07/03/23) IV to PO Switch IV Medications: Reviewed (Cefepime and potassium infusion) Home Meds Home Med List reviewed: Reviewed Relevent Home Meds Not ordered & why?: Amiloride, HCTZ and lisinopril. Per H+P, home anti-HTN meds were being held due to low BPs. Looks like BP has now been WNL. Will reach out to provider if BPs become elevated. Current Meds Current Medication Order Review: Reviewed Pharmacy Antibiotic Review Relevant Labs: Relevant Labs 07/03/23 19:21 Procalcitonin 3.0 Pharmacy Antibiotic Activity: C/S review and Antibiotic de-escalation (vancomycin discontinued) Comments: Patient is currently on cefepime 2g every 12 hours, day 1. Was started on vancomycin which was discontinued due to negative MRSA swab. Temperature of 39.6 at 1059 this morning and WBC slightly increased from 20.18 to 21.37. Blood and wound cultures currently pending.
[2023-07-04 14:27] LABS: Lactate 3.3 mmol/L (0.6-1.4)
--- NOTE | 2023-07-04 16:49 | CHAPLAIN ---
Monisha's , Jayne, and daughter Sandhya, were visiting with Monisha when I stopped in. She told me about having a high temperature and chills yesterday and now dealing with sepsis. 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 I will continue to visit.
[2023-07-04] MEDS: Lactated Ringers 1,000 ML 75 ML IV (16:54)
[2023-07-04] MEDS: ACETAMINOPHEN 1,000 MG/100 ML BTL 400 MG IVPB ×2 (16:55→21:00)
--- NOTE | 2023-07-04 17:04 | INITIAL_ITS ---
Care Management Initial Assmt Initial Assessment REASON FOR HOSPITALIZATION:: Cellulitis, Sepsis PREVIOUS FUNCTIONAL STATUS/SOCIAL/FAMILY SUPPORTS:: Monisha resides in [place] with her and family. 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 ADVANCE DIRECTIVES:: On file; Jayne as agent, sister Leandra as alternate. Did the patient sign up for the portal?: Yes CODE STATUS:: Full Code INSURANCE COVERAGE / FINANCIAL ISSUES:: [employer] PRIMARY CARE PHYSICIAN:: Huyen Omalley POTENTIAL DISCHARGE NEEDS:: Determine course of antibiotic therapy; support discharge considerations. PATIENT/FAMILY EDUCATION NEEDS:: Review discharge instructions, discuss Ask Me Three. ANTICIPATED BARRIERS TO DISCHARGE:: ID: Possible L/T IV ABX course; awaiting culture and sensitivities. TRANSPORTATION:: Via private vehicle with family. PLAN:: Monisha reports ongoing pain, and fever. She is pleasant in interaction and forthcoming with information. CM reviewed possible discharge considerations dependent on treatment recommendations and continues to follow. PFSH All Active Problems (Updated 07/07/23 @ 09:29 by Misty Marmolejo NP) DVT prophylaxis (Acute) Left leg swelling (Acute) Discharge planning issues (Acute) Septic shock (Acute) Acute hypokalemia (Acute) Cellulitis (Acute) Arthritis of left glenohumeral joint (Acute) Menopausal symptoms (Acute) CKD (chronic kidney disease) stage 2, GFR 60-89 ml/min (Acute) New baseline?! Hx of hysterectomy for benign disease (Acute) benign, but painful/severe Ill feeling (Acute) Recent episodes of somnolence, off-balance & spells of being out of my body. Possibly psych rxn (2' anx, grief, milestones) .. but monitoring. Hypertension (Chronic) Hx HTN .. with med d/c post bariatric surg wt loss.. some elevated BPs, 05/2022, re-start low-dose lisinopril. LVH (left ventricular hypertrophy) (Acute) Newly noted, although Hx left axis dev (-90, -30) .. Hx HTN, Flash Pulm Edema (2019), obesity, s/p bariatric surgery. DUB (dysfunctional uterine bleeding) (Acute) Cont'd .. with 17 week sized uterus per pt rpt, 09/01/22 .. [ ] [facility] Surgery planned next Hypoglycemia (Acute) Hx BG < 35 per CGM Acute hypokalemia (Acute) Disorder of iron metabolism (Acute) Per 03/22/22 [facility] Gen surgery note Elevated PTHrP level (Acute) Per 03/22/22 [facility] Gen surgery note Hyperparathyroidism (Acute) Postprandial hypoglycemia (Acute) PP Hyperinsulinemic hypogly Dx per [facility] Endo (Echt). 04/2022. per observation and tel d/w Dr. Ortega (future Endo, Valerio).. vs exercise-induced Status post bariatric surgery (Acute) Successful weight loss, but dangerous, symptomatic HYPOglycemia [neg dumping syndrome per [facility]] Skin lesion (Acute) Mild wound, 2' probable abd intertrigo. Facial twitching (Acute) Nodule of left lung (Acute) 3mm, incidental finding, LLL (12/2020 CT). [ ] 6 mo FU.. Paresthesias (Acute) Hypotension (Acute) post gastric bypass ... lowering ACEi, BB, CCB. DIuretics in place 2' LE edema (albeit improved). Depressive disorder (Chronic 05/23/11) Wellbutrin 2012, discon 12/2012, restart 05/2013 Hx of Marylou thyroiditis (Acute) Imbalance (Acute) Cervical radiculopathy (Acute) Hematuria (Acute) Fatty liver (Acute) 10/02/18 Dr Schroeder/[facility] Migraine headache with aura (Chronic) DR. VALDEZ 08/29/11 [employer] works Vertigo and/or pain Uterine leiomyoma (Chronic 11/02/15) On pelvic ultrasound uterus enlarged approximate 13 cm. 08/04/2021 pelvic pain radiating from back. Serrated adenoma of colon (Acute 07/07/15) Dr. Contreras, sessile colonic polyp, inflammatory polyp Sensorineural hearing loss, bilateral (Chronic 11/01/17) Restless leg (Acute 03/31/15) Some relief with iron infusion (albeit reaction to infusion), 05/2018. 06/16/19 f/u at sleep clinic Reflux esophagitis (Acute 07/07/15) Dr. Contreras gastritis Premenstrual dysphoric disorder (Acute 11/10/14) Gabriel Henderson MD [place] [facility]. Positive TG (antinuclear antibody) (Acute 06/07/15) Mgrn wo aura wo ntrc mgr (Acute 09/05/11) DR. VALDEZ 08/29/11 [employer] Vertigo and/or pain Incomplete tear of left rotator cuff (Acute 05/31/16) Alopecia areata (Acute 05/23/11) Dx'ed 1990s Hair prosthesis Medical History Scab of knee fell last week, rough/dry scab, but irritated .. Trial debride @ home, consider surgtery if tender. Diarrhea (10/29/15) Chronic, secretory .. s/p multiple [place], Bx. Trial cholestyramine, 10/2018, ik planned. Pre-op evaluation Hysterectomy planned, told she would need [facility] due to Hx and anatomy History of endometrial biopsy (~05/26/22) [facility] [employer], 05/26/22 Post-resection malabsorption Per 03/22/22 [facility] Gen surgery note Heel lesion Right heel, cracked skin .. inner foot tenderness .. out of proportion tend erness .. possible assoc with fever? (improved with soaking, but not closing) Fever Over 1 week; T 103/102/99; Neg COVID; Awaiting Flu SARS-CoV-2 positive (~10/26/21) Dysmenorrhea [place] exposure Dtr (+) .. Sore Throat, lab [ ] Dumping syndrome (04/12/21) NOT per Bariatric Team.. Dx per [facility] Endo .. [facility] Bariatric Team re-eval as NEG for dumping syndrome, 05/2021 Class 3 severe obesity due to excess calories with body mass index (BMI) of 40.0 to 44.9 in adult 07/31/19 [facility] Complicated grieving Her basically healthy mo due to COVID19 infection. She was intubated wit hin days of becoming sick, sending out a cheerful text 4 days beforehand! Monisha has cancelled the trip just before flights, etc were shut down; she was originally worried for her fa 2' health issues and dementia. Close-knit family; inability for gathering for .. video/webexed with family in [facility] (mo in [place]). Diabetes mellitus type 2 in obese Improved s/p bariatric surgery and wt loss BUT HYPOglycemia Encounter for insertion of venous access port on HOLD since K improvement 05/2019 Dehydration Preeclampsia Flash pulmonary edema Lymphedema referring to PT for evaluation and recommendations.. Bunion 12/24/18-nelson Yarbrough DPM Abnormal serum creatinine level (07/2018) Serious Creatinine elevation, with resolution between episodes of dehydration .. Sustained VT (ventricular tachycardia) during hypokalemia episode Angioedema 10/02/18 Dr Schroeder/[facility] Flushing 10/02/18 Dr Schroeder/[facility] Out of work (08/21/18) Recommend continuation of reduced hours due to continued electrolyte i mbalances, fatigue and metabolic disorder. Unclear etiology makes it difficult to create a clear treatment plan, which in turn, makes routine and FT work difficult to manage. Revised [employer] Ppwk (06/2019). Solid, intermittent improvements, but unpredictable. 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 10/30/18, ik. I support time off from work due to continued electrolyte imbalances which cannot be explained. Re-referring to specialists @ [facility] as well as [facility]. Elevated plasma metanephrines (08/2018) Ordered by [place], [place] (Abd) [ ] ... follow up with Endo week of October 07. 08/2018, ik Kidney stone (02/27/12) Rectal hemorrhage (03/02/15) Dehydration (~08/21/18) Several episodes now .. She can almost gauge her K levels based on mm weakness. [ ] BMP [ ] IVF-KCl Bolus-K have helped with hypokalemia in between bouts of diarrhea/dehydration when IVF not needed. 09/2018, mian Rectal bleeding (03/02/15) Episodic - Was diagnosed with AVM's Mgrn w [place] w [facility] mgrn (09/05/11) DR. VALDEZ 08/29/11 [employer] Vertigo and/or pain Impaired fasting glucose (02/11/14) A1C 6.1% 12/2012 .. A1C 5.8 07/04/18. Hypokalemia (11/07/16) Chronic, possible 2' IBS/Diarrhea. Continued despite GI improvements, albeit improved. Trial Eplerenone, to be followed by HCTZ decrease. 10/09/18 Intermittent improvement, but unsteady and unpredictable .. Monisha seems unable to maintain her own K levels WNL w/o bolus/infusions at this time. Unable to tolerate K-sparing diuretics. Cont to research, evaluate, consult .. 09/2018, ik Essential hypertension (12/05/12) Elevated BPs, especially DBP. Hx high BP since of twins (20yrs), noted in Nephro note (2017). HCTZ used x years for HTN & Edema. Spirono not tolerated (Hives/Flush). Trial Eplerenone, 10/09/18, ik Unable to tolerate eplerenone, angioedema-like reactions to K-sparing diuretics.. 09/2018, ik Irritable bowel syndrome diarrhea predominant Alopecia Hx of adenomatous colonic polyps GERD (gastroesophageal reflux disease) Marylou's thyroiditis Depression Anemia Reflux esophagitis Surgical History S/P laparoscopic hysterectomy (~12/2022) Extensive lysis of adhesions, bilateral salpingectomy and cystoscopy, repair of vaginal lacerations for chronic pelvic pain and fibroid uterus. History of Nadia-en-Y gastric bypass (~11/2019) H/O colonoscopy (12/05/17) History of esophagogastroduodenoscopy (EGD) (12/05/17) Tonsillectomy section x3 Endometrial Ablation 2007 2012 EGD - MAC 2015 Colonoscopy - MAC (03/16/14) w/ bx 2015-serrated adenomatous polyp Most recent 12/05/2017 Family History Mother Pulmonary hypertension Heart disease valve replacement Father Prostate cancer Essential hypertension Parkinsons Sister Uterine cancer Brother Heart disease Father Hypertension Mother Heart disease Maternal Grandfather Diabetes Sister Age: 59 Cancer Other Colon cancer Social History (Updated 07/04/23 @ 00:29 by Blaine Beckman) Smoking/Tobacco Use Status: Never Smoking risk assessment performed?: Yes Alcohol Intake: current Alcohol Intake frequency: holidays/special occasions only Alcohol type: wine Drug use: Never Substance use type: does not use Adopted: No Caregiver/Support person: No Household members: spouse and other Details: Partner - Jayne, children Housing: house Number of Children: 4 number of grandchildren: 0 Communication Needs: Corrective Lenses Education Level: college current occupation: Daily today tested negative on this on the testing day negative negative di Pets and animals: Yes Pets and animals: cat(s) and dog(s) Sexually active: Yes Do you think of yourself as: lesbian/peña/homosexual Current gender identity: female What is your relationship status?: living with partner Panel score (0-1 are the most socially isolated patients): 1 What type of physical activity do you participate in: walking Duration: 15-30 minutes/day Frequency: 3-4 times per week Seatbelt use: always Working smoke detector in home: Yes Fire extinguisher in home: Yes Carbon monox detector in home: Yes Firearms in home: No Do you feel safe at home: Yes Do you feel safe in your relationship?: Yes Additional Social history: Lives in [place] with Jayne and their 2 18 yo girls, 4 older kids out of home. 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 Female Reproductive History Menstrual control method: permanent sterilization History History 3 Para 4 Hx # Term Pregnancies Multiple births 1 Hx # Pregnancies Ectopic pregnancies AB induced Hx Number of Living Children AB spontaneous SDOH(Care Management) Screening Will the Patient Participate in the Screening?: Yes Do you worry about having a steady place to live?: no Problems where you live: no known problems In the past 12 months, have you had to go without electric, gas, oil or water in your home?: no Have you or anyone in your house had to go without enough food to eat?: no Has lack of transportation kept you from medical appointments or from doing things needed for daily living?: no Has anyone in your support network made you feel unsafe for any reason?: no
[2023-07-05] VITALS (9 sets, daily range): BP systolic 110–143; BP diastolic 70–112; PULSE 91–103; RESP 16–18; TEMP 36.7–39.6; O2SAT 96–99
--- NOTE | 2023-07-05 | DI.US_ITS ---
Exam(s) US LOWER EXTREMITY VENOUS LT EXAM: US LOWER EXTREMITY VENOUS LT CLINICAL HISTORY: DVT:swelling redness pain. TECHNIQUE: Lower extremity venous ultrasound performed using grayscale, color-flow, and spectral Do ppler analysis. COMPARISON: No exams were available for comparison FINDINGS: The common femoral, femoral and popliteal veins demonstrate normal compressibility, augmentation, and color Doppler. The posterior tibial veins are patent. No saphenous vein thrombosis or other superfi cial venous thrombosis is seen. No hematoma or Barrientos's cyst is seen. Reactive lymph nodes are noted in the proximal thigh. Soft tissue edema. IMPRESSION: findings consistent with cellulitis. No evidence of DVT. DATA REPOSITORY:
--- NOTE | 2023-07-05 | DI.CT_ITS ---
Exam(s) CT LOWER EXTREMITY LT W EXAM: CT LOWER EXTREMITY LT W CLINICAL HISTORY: Abscess:Redness, induration, swelling. TECHNIQUE: Imaging Protocol: Axial computed tomography images with coronal and sagittal reformatted images were created and reviewed. CONTRAST MATERIAL: Intravenous: Omnipaque 350 Contrast volume:structured data in ml Contrast route:IV - COMPARISON: US US LOWER EXTREMITY VENOUS LT from 07/05/2023 FINDINGS: Exam somewhat limited by motion. Bones: There is no evidence of fracture or dislocation. No cellulitic or osteomyelitic changes are identified. No lytic or sclerotic lesions are identified. Joints: There is no significant joint space narrowing. No significant periarticular spurring. Soft Tissues: Soft tissue edema noted extending from the level of the anteromedial thigh as well as in the subcutaneous fat below the knee to the level of the ankle. Multiple enlarged lymph nodes are noted in left groin region. Small amount of air seen in the anterior abdominal wall, presumably inje ction site. IMPRESSION: Edema in the subcutaneous fat, greatest at the level of the ankle.. No evidence of abscess. Reactiv e lymph nodes. RADIATION DOSE DELIVERED: Total DLP DATA REPOSITORY: All CT scans at this facility are submitted to the National Radiology Data Registry (NRDR) Dose Index Registry (DIR) with the [employer] ([employer]). RADIATION OPTIMIZATION: All CT scans at this facility use at least one of these dose optimization te chniques: automated exposure control; mA and/or kV adjustment per patient size (includes targeted exa ms where dose is matched to clinical indication); or iterative reconstruction.
[2023-07-05] MEDS: ACETAMINOPHEN 1,000 MG/100 ML BTL 400 MG IVPB ×2 (04:54→12:25)
[2023-07-05] MEDS: oxyCODONE 5 MG TAB PO (04:54)
--- NOTE | 2023-07-05 06:10 | PGE_ITS ---
Date of Service Date of service: 07/05/23 Time of Service: 06:10 Assessment and Plan Assessment and plan (1) Severe sepsis: Status: Acute Assessment and plan: Meeting sepsis criteria with elevated WBC 21, lactate 3.4 , and fever 40 C as well as a presume source of inflection in the left lower leg .In addition,a the patient presented with SBP 75 to 86 that responded to FR of 2700ml which qualify the patient for severe sepsis Broad spectrum antibiotics started : Will stop Vancomycin as MRSA nare negative and no growth on cultures and continue Cefepime ; heel grew a few GNR Cultures started in ED, NO GROWTH 24 HOURS Wound cultures from left heel fissure: Rare GNR Lactate was 3.4-3.3, no trending unsless hemodynamically unstable or other S&S of worsening severe sepsis IVF to be stopped if orthostatic VS negative (2) Cellulitis: Status: Acute Assessment and plan: LLE cellulitis is the presumed source of her sepsis. Monitor and delimit the redness Wound consult for heel fissure (3) Left leg swelling: Status: Acute Assessment and plan: Venous US (4) HANH (acute kidney injury): Status: Acute Assessment and plan: Likely pre-renal. Cr 1.0 from1.3 BMP in AM Continue to monitor (5) Hypomagnesemia: Status: Acute Assessment and plan: Given 1g in ED, she may need more but await mornign labs. Mag 1.9 Resolved (6) Prolonged QT interval: Status: Acute Assessment and plan: On telemetry QTC , no further report of QTC prolongation (7) Acute hypokalemia: Status: Acute Assessment and plan: K 4.0, Resolved BMP in AM (8) Hypertension: Status: Chronic Assessment and plan: Still holding her BP meds as BP was low on initial presention Gadually reintroduce when hemodynamically stable and if ortho VS negative (9) Postprandial hypoglycemia: Status: Acute Assessment and plan: Dumping syndrom Hx since bariatric surgery. Continue acarbose to help with this and has a CGM. Gluc 1 hour PCferoz (10) DVT prophylaxis: Status: Resolved Assessment and plan: Continue lovenox (11) Discharge planning issues: Status: Acute Assessment and plan: She is feeling better but awaiting for US left lower ext result Abscess VS DVT, blood C&S negative [address] Hodge Subjective Subjective Patient reports: feels better, still having pain, tolerating liquids well, tolerating a regular diet, voiding w/o difficulty, flatus, bowel movement and diarrhea; denies blood in stool, nausea, vomiting, shortness of breath or fever Exam Narrative Exam Narrative: Constitutional The patient is in bed uncomfortable, DYER,fever, Jayne at bedside and cooperative during the interview. Eyes: Well aligned, intact ROM Neck: Normal ROM, no meningeal signs Neuro:alert and oriented to self, person, place,time and situation. No neurological focal deficit Chest:Chest is symmetrical and normal appearance Resp: Normal respiratory pattern, speaks in full sentences, unlabored breathing, clear lung bilaterally Cardio: regular rhythm, S1, S2, no murmur, capillary refill<3 sec., positive pulses to all 4 ext. GI: Abdomen is not distended, soft and non tender, bowel sounds are present : Negative Costovertebral angle tenderness, no bladder distension Back/spine/Pelvis: No back tenderness, normal alignment Integumentary: redness to LLE's receding, but groin area with new redness and painfull swelling, whole UPPER LEFT leg is bigger Extremities: strength 5/5 to bilateral lower and upper extremities Psych: RASS 0, congruent mood and normal affect. Objective Last Vital Signs Temp 38.2 C H 07/05/23 04:53 Pulse 97 H 07/05/23 03:27 Resp 17 07/05/23 03:27 BP 122/74 07/05/23 03:27 Pulse Ox 97 07/05/23 03:27 Laboratory Results - last 24 hr 07/03/23 07/04/23 07/04/23 19:19 06:52 Unknown WBC 21.37 H RBC 4.37 Hgb 12.1 D Hct 35.7 L MCV 82 MCH 27.7 MCHC 33.9 RDW 16.0 H Plt Count 302 MPV 9.6 Immature Gran % 1.6 Neutrophils % 92.4 Lymphocytes % 2.9 Monocytes % 2.1 Eosinophils % 0.7 Basophils % 0.3 Nucleated RBC % 0.0 Absolute Neutrophils 19.75 H Absolute Lymphocytes 0.62 L Absolute Monocytes 0.45 Absolute Eosinophils 0.15 Absolute Basophils 0.06 VBG Lactate 3.3 H* Cancelled Sodium 142 Potassium 4.0 D Chloride 105 Carbon Dioxide 27.2 Anion Gap 9.8 BUN 20 H Creatinine 1.3 H Est GFR (CKD-EPI 2020) 49.17 Glucose 151 H Calcium 8.7 Magnesium 1.9 Fluid Type Cancelled Fluid LDH Cancelled Time Spent with Patient Time Spent with Patient: >50 minutes Time was spent: preparing to see the patient(eg.review tests), obtaining and/or reviewing separately otained hiistory, ordering medications,tests, procedures, referring, communicating with other health district manager primary care sales, indepentently interpreting results, counseling the patient and care coordination
[2023-07-05 06:48] LABS: Abs Immature Grans 0.26 10^3/uL (0.0-0.06); Absolute Lymphocyte Count 1.05 10^3/uL (1.2-3.4); Basophils % 0.4; Eosinophils % 0.9; HCT 36.3 % (36.0-46.0); HGB 12.3 g/dL (11.2-15.7); Immature Grans % 1.6; Lymphocytes % 6.5; MCHC 33.9 % (32.0-36.0); MCV 83 fL (80-95); Monocytes % 2.5; Neutrophils % 88.1; Platelet Count 218 10^3/uL (130-400); RDW 16.5 % (11.7-14.6); RDW-SD 49.7 fL; WBC 16.21 10^3/uL (4.4-10.8)
[2023-07-05 06:50] LABS: Absolute Basophil Count 0.06 10^3/uL (0.0-0.2); Absolute Eosinophil Count 0.15 10^3/uL (0.0-0.7); Absolute Monocyte Count 0.41 10^3/uL (0.1-0.8); Absolute Neutrophil Count 14.28 10^3/uL (1.2-6.7)
[2023-07-05] MEDS: Lactated Ringers 1,000 ML 75 ML IV (06:55)
[2023-07-05] MEDS: Ibuprofen 400 MG TAB PO ×2 (07:40→15:15)
[2023-07-05 08:01] LABS: Anion Gap 9.3 mmol/L (3-11); BUN 19 mg/dL (7-18); CO2 24.7 mmol/L (21.0-32.0); Calcium 8.3 mg/dL (8.5-10.1); Chloride 103 mmol/L (98-107); Estimated GFR 67.36 (mL/min/1.73m2); Glucose 133 mg/dL (74-106); Magnesium 1.8 mg/dL (1.8-2.4); Potassium 3.5 mmol/L (3.5-5.1); Sodium 137 mmol/L (136-145)
[2023-07-05] MEDS: Enoxaparin 40 MG/0.4 ML SYR SC (08:14)
[2023-07-05] MEDS: CEFEPIME 2 GM in Normal Saline 100 ML IVPB ×2 (08:15→21:42)
[2023-07-05] MEDS: buPROPion-XL 150 MG TABCR 300 MG PO (08:16)
[2023-07-05] MEDS: Potassium Chloride 20 MEQ TABCR PO (08:16)
[2023-07-05] MEDS: Pantoprazole 40 MG TABCR PO (08:16)
[2023-07-05] MEDS: Normal Saline Flush 10 ML SYR IVP ×3 (08:17→21:47)
[2023-07-05] MEDS: VANCOMYCIN/WATER (PEG) 1.5 GM/300 ML BAG IV (10:32)
[2023-07-05] MEDS: Pramipexole 0.25 MG TAB PO ×2 (12:25→21:41)
[2023-07-05] MEDS: Gabapentin 800 MG TAB PO ×2 (12:25→21:41)
[2023-07-05] MEDS: Omnipaque 350 MG/ML 100 ML BTL IJ (14:50)
[2023-07-05] MEDS: Normal Saline - Diluent 50 ML VIAL IJ (14:52)
[2023-07-05] MEDS: Ondansetron O.D.T. 4 MG TABEF PO (15:14)
[2023-07-05] MEDS: ACETAMINOPHEN 1,000 MG/100 ML BTL 100 MG IVPB ×2 (17:38→23:10)
[2023-07-05] MEDS: Venlafaxine 37.5 MG CAPCR 75 MG PO (21:40)
[2023-07-05 21:41] LABS: C Diff PCR Negative (Negative)
[2023-07-06] VITALS (8 sets, daily range): BP systolic 121–157; BP diastolic 78–99; PULSE 89–96; RESP 15–97; TEMP 36.2–38.1; O2SAT 18–98
[2023-07-06] MEDS: Ibuprofen 400 MG TAB PO ×2 (05:26→19:38)
[2023-07-06] MEDS: ACETAMINOPHEN 1,000 MG/100 ML BTL 100 MG IVPB (05:27)
[2023-07-06] MEDS: oxyCODONE 5 MG TAB PO (05:30)
[2023-07-06 06:51] LABS: Abs Immature Grans 0.06 10^3/uL (0.0-0.06); Absolute Basophil Count 0.04 10^3/uL (0.0-0.2); Absolute Eosinophil Count 0.06 10^3/uL (0.0-0.7); Absolute Lymphocyte Count 1.16 10^3/uL (1.2-3.4); Absolute Monocyte Count 0.58 10^3/uL (0.1-0.8); Basophils % 0.3; Eosinophils % 0.5; HCT 30.9 % (36.0-46.0); HGB 10.7 g/dL (11.2-15.7); Immature Grans % 0.5; Lymphocytes % 9.8; MCH 27.7 pg (27.0-33.0); MCHC 34.6 % (32.0-36.0); MCV 80 fL (80-95); Monocytes % 4.9; Platelet Count 274 10^3/uL (130-400); RBC 3.86 10^6/uL (3.93-5.22); RDW 16.5 % (11.7-14.6); RDW-SD 47.8 fL; WBC 11.83 10^3/uL (4.4-10.8)
[2023-07-06 06:55] LABS: Absolute Neutrophil Count 9.94 10^3/uL (1.2-6.7)
[2023-07-06 07:04] LABS: Anion Gap 11.5 mmol/L (3-11); BUN 13 mg/dL (7-18); CO2 24.5 mmol/L (21.0-32.0); CREATININE 0.9 mg/dL (0.55-1.02); Calcium 8.5 mg/dL (8.5-10.1); Chloride 105 mmol/L (98-107); Estimated GFR 76.44 (mL/min/1.73m2); Glucose 115 mg/dL (74-106); Potassium 3.4 mmol/L (3.5-5.1); Sodium 141 mmol/L (136-145)
[2023-07-06 07:39] LABS: Procalcitonin 1.4 ng/mL
[2023-07-06] MEDS: Pantoprazole 40 MG TABCR PO (08:47)
[2023-07-06] MEDS: Potassium Chloride 20 MEQ TABCR PO ×3 (08:47→16:56)
[2023-07-06] MEDS: buPROPion-XL 150 MG TABCR 300 MG PO (08:47)
[2023-07-06] MEDS: Normal Saline Flush 10 ML SYR IVP ×2 (08:51→23:00)
[2023-07-06] MEDS: Enoxaparin 40 MG/0.4 ML SYR SC (09:03)
[2023-07-06] MEDS: Lactobacillus Acidophilus CAP 1 CAP PO (09:03)
--- NOTE | 2023-07-06 11:36 | W.PM.PROGNOT ---
Date of Service Date of service: 07/06/23 Time of Service: 11:36 Assessment and Plan Assessment and plan (1) Severe sepsis: Status: Acute Assessment and plan: stabilized hemodynamically after receiving IV resuscitation, still febrile with max temp 38.1 overnight Although white count improving and Pro-Uday improving, I am concerned that clinically she is no longer improving, question due to vancomycin being discontinued versus cefepime dosing now that kidney function has recovered Will continue Cefepime but adjusted to every 8 hours from every 12 now that her kidney function has improved. Low threshold to broaden antibiotics. heel wound culture growing staph, sensitivities pending, I am concerned that this surface culture will not be helpful in guiding her therapy. I did add inflammatory marker/CRP which was 3.5 on admission now increased to greater than 25, which I will recheck tomorrow along with CBC. blood Cultures with NO GROWTH to date. MRSA nasal swab was negative. (2) Cellulitis: Status: Acute Assessment and plan: LLE cellulitis is the presumed source of her sepsis. Monitor and delimit the redness Wound consult for heel fissure (3) Left leg swelling: Status: Acute Assessment and plan: Venous US negative, no evidence of abscess (4) HANH (acute kidney injury): Status: Resolved Assessment and plan: resolved with fluids Continue to monitor (5) Hypomagnesemia: Status: Acute Assessment and plan: Given 1g in ED, 1.8 today (6) Prolonged QT interval: Status: Resolved Assessment and plan: On telemetry QTC , no further report of QTC prolongation can discontinue (7) Acute hypokalemia: Status: Acute Assessment and plan: continue repletion and follow (8) Hypertension: Status: Chronic Assessment and plan: trending upwards after being placed on hold on admission for hypotension in setting of sepsis will resume lisinopril in am if bp remains stable. (9) Postprandial hypoglycemia: Status: Acute Assessment and plan: Dumping syndrome Hx since bariatric surgery. Continue acarbose to help with this and has a CGM. Gluc 1 hour PC, stable (10) DVT prophylaxis: Status: Acute Assessment and plan: Continue lovenox (11) Discharge planning issues: Status: Acute Assessment and plan: Will discharge to home once medically stable and down stepped to oral antibiotics Discussed with Dr. Hodge Subjective Subjective Patient reports: still having pain, tolerating liquids well, tolerating a regular diet, voiding w/o difficulty, bowel movement, shortness of breath (with activity) and fever (max temp 38.1) Interval history since last seen: Erythema at the groin site extends well beyond the skin markings and is a deep red color. Her lower extremity some areas are within the skin markings some beyond she does have edema. She states that her pain and symptoms do not seem to be improving today. Exam Narrative Exam Narrative: Pleasant and conversant. Const General: cooperative, comfortable and no acute distress Nutritional Appearance: well nourished Orientation: alert, awake and oriented x3 HENNY Head: normal to inspection, normocephalic and atraumatic Mouth: oral mucosae normal Eyes General: appearance normal, both eyes and all related structures Sclera: sclerae normal Neck Neck: normal visual inspection and full ROM Chest Chest: normal inspection of the chest Resp Effort & Inspection: normal respiratory effort Cardio Rate: regular rate (pedal pulse) Rhythm: regular rhythm GI Inspection: normal to inspection Palpation: soft Skin General skin exam: erythema (significantly outside of markings in groin/upper thigh, variable to lower) Neuro General: patient alert, patient awake, patient oriented x3 and no focal motor deficits Extrem General: abnormal to inspection and edema Laterality: left Psych Appearance: grossly normal Speech and Movement: speech clear Mood: congruent mood Affect: normal affect Objective Last Vital Signs Temp 36.6 C 07/06/23 11:06 Pulse 89 07/06/23 11:06 Resp 16 07/06/23 11:06 BP 133/91 H 07/06/23 11:06 Pulse Ox 96 07/06/23 11:06 Laboratory Results - last 24 hr 07/05/23 07/06/23 20:44 06:23 WBC 11.83 H RBC 3.86 L Hgb 10.7 L Hct 30.9 L MCV 80 MCH 27.7 MCHC 34.6 RDW 16.5 H Plt Count 274 MPV 10.0 Immature Gran % 0.5 Neutrophils % 84.0 Lymphocytes % 9.8 Monocytes % 4.9 Eosinophils % 0.5 Basophils % 0.3 Nucleated RBC % 0.0 Absolute Neutrophils 9.94 H Absolute Lymphocytes 1.16 L Absolute Monocytes 0.58 Absolute Eosinophils 0.06 Absolute Basophils 0.04 Sodium 141 Potassium 3.4 L Chloride 105 Carbon Dioxide 24.5 Anion Gap 11.5 H BUN 13 Creatinine 0.9 Est GFR (CKD-EPI 2020) 76.44 Glucose 115 H Calcium 8.5 Procalcitonin 1.4 Stl C.difficile Tox PCR Negative Time Spent with Patient Time Spent with Patient: 25-34 minutes Time was spent: preparing to see the patient(eg.review tests), obtaining and/or reviewing separately otained hiistory, ordering medications,tests, procedures, indepentently interpreting results and counseling the patient
[2023-07-06] MEDS: Pramipexole 0.25 MG TAB PO ×2 (12:38→19:38)
[2023-07-06] MEDS: Gabapentin 800 MG TAB PO ×2 (12:38→19:38)
[2023-07-06] MEDS: Acetaminophen 500 MG TAB 1000 MG PO ×3 (12:38→23:00)
[2023-07-06 13:21] LABS: Lab Add On Test DONE
[2023-07-06 13:34] LABS: C-Reactive Protein 3.55 mg/dL (<or=0.5)
[2023-07-06 13:39] LABS: C-Reactive Protein > 25.00 mg/dL (<or=0.5)
--- NOTE | 2023-07-06 16:50 | CMPROGNOTE_ITS ---
Date of service: 07/06/23 Time of Service: 16:50 Care Management Progress Note Progress Note Text Progress Note Text: S/O: Monisha was sitting up in bed; leg extended and elevated. She reviewed events leading up to her admission and shared appreciation for ED provider and Dr. Beckman. She requested a fan-which was provided. She reviewed symptoms including pain, ongoing fevers-and treatment. Her , Jayne arrived and shared no concerns or questions at this time; CM reviewed discharge considerations. Anticipate at this time, Monisha will most likely remain at [facility] through the weekend. CM following. A: Monisha was admitted 07/03/23 with cellulitis, sepsis P: Anticipate once treatment recommendations are known, discharge planning considerations will be reviewed with Monisha. CM continues to follow. SDOH(Care Management) Screening Will the Patient Participate in the Screening?: Yes Do you worry about having a steady place to live?: no Problems where you live: no known problems In the past 12 months, have you had to go without electric, gas, oil or water in your home?: no Have you or anyone in your house had to go without enough food to eat?: no Has lack of transportation kept you from medical appointments or from doing things needed for daily living?: no Has anyone in your support network made you feel unsafe for any reason?: no
[2023-07-06] MEDS: Ondansetron O.D.T. 4 MG TABEF PO (19:38)
[2023-07-06] MEDS: Venlafaxine 37.5 MG CAPCR 75 MG PO (19:38)
[2023-07-06] MEDS: Melatonin 3 MG TAB 9 MG PO (21:57)
[2023-07-06] MEDS: Lisinopril 5 MG TAB PO (23:00)
[2023-07-06] MEDS: CEFEPIME 2 GM in Normal Saline 100 ML IVPB (23:00)
[2023-07-07] MEDS: Acetaminophen 500 MG TAB 1000 MG PO ×3 (05:59→16:58)
[2023-07-07] MEDS: CEFEPIME 2 GM in Normal Saline 100 ML IVPB ×3 (06:00→21:10)
[2023-07-07 06:53] LABS: Abs Immature Grans 0.19 10^3/uL (0.0-0.06); Absolute Basophil Count 0.06 10^3/uL (0.0-0.2); Absolute Eosinophil Count 0.22 10^3/uL (0.0-0.7); Absolute Lymphocyte Count 1.58 10^3/uL (1.2-3.4); Absolute Monocyte Count 0.93 10^3/uL (0.1-0.8); Absolute Neutrophil Count 7.49 10^3/uL (1.2-6.7); Basophils % 0.6; Eosinophils % 2.1; HCT 34.4 % (36.0-46.0); HGB 11.3 g/dL (11.2-15.7); Immature Grans % 1.8; Lymphocytes % 15.1; MCH 26.8 pg (27.0-33.0); MCHC 32.8 % (32.0-36.0); MCV 82 fL (80-95); MPV 9.6 fL (8.0-11.0); Monocytes % 8.9; Neutrophils % 71.5; Platelet Count 272 10^3/uL (130-400); RBC 4.21 10^6/uL (3.93-5.22); RDW 16.5 % (11.7-14.6); RDW-SD 49.3 fL; WBC 10.47 10^3/uL (4.4-10.8)
[2023-07-07 07:14] LABS: Anion Gap 8.7 mmol/L (3-11); BUN 14 mg/dL (7-18); CO2 25.3 mmol/L (21.0-32.0); CREATININE 0.8 mg/dL (0.55-1.02); Calcium 8.7 mg/dL (8.5-10.1); Chloride 106 mmol/L (98-107); Estimated GFR 88.05 (mL/min/1.73m2); Glucose 109 mg/dL (74-106); Potassium 3.6 mmol/L (3.5-5.1); Sodium 140 mmol/L (136-145)
[2023-07-07 07:17] LABS: C-Reactive Protein > 25.00 mg/dL (<or=0.5)
[2023-07-07 07:45] VITALS: BP 146/96; PULSE 93; RESP 18; TEMP 36.6; O2SAT 98
[2023-07-07] MEDS: Potassium Chloride 20 MEQ TABCR PO ×3 (08:38→16:58)
[2023-07-07] MEDS: Pantoprazole 40 MG TABCR PO (08:38)
[2023-07-07] MEDS: Lisinopril 5 MG TAB PO ×2 (08:38→21:09)
[2023-07-07] MEDS: Lactobacillus Acidophilus CAP 1 CAP PO (08:38)
[2023-07-07] MEDS: Enoxaparin 40 MG/0.4 ML SYR SC (08:38)
[2023-07-07] MEDS: buPROPion-XL 150 MG TABCR 300 MG PO (08:38)
[2023-07-07] MEDS: Normal Saline Flush 10 ML SYR IVP ×3 (08:39→21:10)
[2023-07-07] MEDS: oxyCODONE 5 MG TAB PO (08:51)
--- NOTE | 2023-07-07 09:25 | W.PM.PROGNOT ---
Date of Service Date of service: 07/07/23 Time of Service: 09:25 Assessment and Plan Assessment and plan (1) Severe sepsis: Status: Resolved Assessment and plan: source - left lower extremity cellulitis, stabilized hemodynamically after receiving IV resuscitation, afebrile blood cultures negative to date continue Cefepime every 8 hours heel wound culture growing staph, sensitivities pending, I am concerned that this surface culture will not be helpful in guiding her therapy. (2) Cellulitis: Status: Acute Assessment and plan: LLE cellulitis is the presumed source of her sepsis. trend CRP which was 3.5 on admission now increased to greater than 25, recheck tomorrow along with CBC. blood Cultures with NO GROWTH to date. MRSA nasal swab was negative. Wound consult for heel fissure (3) Left leg swelling: Status: Acute Assessment and plan: Venous US negative, no evidence of abscess (4) HANH (acute kidney injury): Status: Resolved Assessment and plan: resolved with fluids Continue to monitor (5) Hypomagnesemia: Status: Resolved Assessment and plan: Given 1g in ED, (6) Prolonged QT interval: Status: Resolved Assessment and plan: On telemetry QTC , no further report of QTC prolongation can discontinue (7) Acute hypokalemia: Status: Acute Assessment and plan: continue repletion and follow (8) Hypertension: Status: Chronic Assessment and plan: resumed lisinopril, continue to monitor (9) Postprandial hypoglycemia: Status: Acute Assessment and plan: Dumping syndrome Hx since bariatric surgery. Continue acarbose to help with this and has a CGM. Gluc 1 hour PC, stable (10) DVT prophylaxis: Status: Acute Assessment and plan: Continue lovenox (11) Discharge planning issues: Status: Acute Assessment and plan: Will discharge to home once medically stable and down stepped to oral antibiotics Discussed with Dr. Hodge Subjective Subjective Patient reports: no new complaints, feels better, tolerating liquids well, tolerating a regular diet, voiding w/o difficulty, bowel movement and afebrile; denies shortness of breath Interval history since last seen: improvement in erythema, swelling and pain, especially groin, Exam Narrative Exam Narrative: Pleasant and conversant. Const General: cooperative, comfortable and no acute distress Nutritional Appearance: well nourished Orientation: alert, awake and oriented x3 HENMT Head: normal to inspection, normocephalic and atraumatic Mouth: oral mucosae normal Eyes General: appearance normal, both eyes and all related structures Sclera: sclerae normal Neck Neck: normal visual inspection and full ROM Chest Chest: normal inspection of the chest Resp Effort & Inspection: normal respiratory effort Cardio Rate: regular rate (pedal pulse) Rhythm: regular rhythm GI Inspection: normal to inspection Palpation: soft Skin General skin exam: erythema (improving in color and receding ) Neuro General: patient alert, patient awake, patient oriented x3 and no focal motor deficits Extrem General: abnormal to inspection and edema Laterality: left Psych Appearance: grossly normal Speech and Movement: speech clear Mood: congruent mood Affect: normal affect Objective Last Vital Signs Temp 36.6 C 07/07/23 07:45 Pulse 93 H 07/07/23 07:45 Resp 18 07/07/23 07:45 BP 146/96 H 07/07/23 07:45 Pulse Ox 98 07/07/23 07:45 Laboratory Results - last 24 hr 07/03/23 07/06/23 07/06/23 19:21 06:23 13:19 WBC RBC Hgb Hct MCV MCH MCHC RDW Plt Count MPV Immature Gran % Neutrophils % Lymphocytes % Monocytes % Eosinophils % Basophils % Nucleated RBC % Absolute Neutrophils Absolute Lymphocytes Absolute Monocytes Absolute Eosinophils Absolute Basophils Sodium Potassium Chloride Carbon Dioxide Anion Gap BUN Creatinine Est GFR (CKD-EPI 2020) Glucose Calcium C-Reactive Protein 3.55 H > 25.00 H Add-On Test Request DONE 07/07/23 07/07/23 06:40 06:40 WBC 10.47 RBC 4.21 Hgb 11.3 Hct 34.4 L MCV 82 MCH 26.8 L MCHC 32.8 RDW 16.5 H Plt Count 272 MPV 9.6 Immature Gran % 1.8 Neutrophils % 71.5 Lymphocytes % 15.1 Monocytes % 8.9 Eosinophils % 2.1 Basophils % 0.6 Nucleated RBC % 0.0 Absolute Neutrophils 7.49 H Absolute Lymphocytes 1.58 Absolute Monocytes 0.93 H Absolute Eosinophils 0.22 Absolute Basophils 0.06 Sodium 140 Potassium 3.6 Chloride 106 Carbon Dioxide 25.3 Anion Gap 8.7 BUN 14 Creatinine 0.8 Est GFR (CKD-EPI 2020) 88.05 Glucose 109 H Calcium 8.7 C-Reactive Protein Cancelled > 25.00 H Add-On Test Request Time Spent with Patient Time Spent with Patient: 25-34 minutes Time was spent: preparing to see the patient(eg.review tests), obtaining and/or reviewing separately otained hiistory, ordering medications,tests, procedures, referring, communicating with other health child care development specialist, indepentently interpreting results and counseling the patient
[2023-07-07] MEDS: Gabapentin 800 MG TAB PO ×2 (11:55→21:09)
[2023-07-07] MEDS: Pramipexole 0.25 MG TAB PO ×2 (11:55→21:09)
[2023-07-07 12:22] VITALS: BP 134/93; PULSE 87; RESP 18; TEMP 37.1; O2SAT 99
[2023-07-07 15:22] VITALS: BP 135/97; PULSE 86; RESP 18; TEMP 36.3; O2SAT 97
[2023-07-07] MEDS: Ketorolac 30 MG/ML VIAL IVP (15:58)
[2023-07-07 20:02] VITALS: BP 133/92; PULSE 85; RESP 18; TEMP 35.9; O2SAT 96
[2023-07-07] MEDS: Venlafaxine 37.5 MG CAPCR 75 MG PO (21:09)
[2023-07-07] MEDS: Melatonin 3 MG TAB 9 MG PO (21:09)
[2023-07-07 23:16] VITALS: BP 135/85; PULSE 87; RESP 20; TEMP 36.3; O2SAT 97
[2023-07-08] VITALS (14 sets, daily range): BP systolic 110–152; BP diastolic 76–118; PULSE 85–112; RESP 16–20; TEMP 35.8–39.6; O2SAT 94–100
[2023-07-08] MEDS: Acetaminophen 500 MG TAB 1000 MG PO ×4 (05:41→23:11)
[2023-07-08] MEDS: CEFEPIME 2 GM in Normal Saline 100 ML IVPB (05:42)
[2023-07-08] MEDS: oxyCODONE 5 MG TAB PO ×2 (06:42→21:09)
[2023-07-08 06:46] LABS: Abs Immature Grans 0.42 10^3/uL (0.0-0.06); Absolute Basophil Count 0.04 10^3/uL (0.0-0.2); Absolute Eosinophil Count 0.21 10^3/uL (0.0-0.7); Absolute Lymphocyte Count 1.85 10^3/uL (1.2-3.4); Absolute Monocyte Count 1.13 10^3/uL (0.1-0.8); Absolute Neutrophil Count 6.09 10^3/uL (1.2-6.7); Basophils % 0.4; Eosinophils % 2.2; HCT 27.8 % (36.0-46.0); HGB 9.6 g/dL (11.2-15.7); Immature Grans % 4.3; MCH 27.4 pg (27.0-33.0); MCHC 34.5 % (32.0-36.0); MCV 79 fL (80-95); MPV 9.7 fL (8.0-11.0); Monocytes % 11.6; Neutrophils % 62.5; Platelet Count 330 10^3/uL (130-400); RBC 3.51 10^6/uL (3.93-5.22); RDW 16.3 % (11.7-14.6); WBC 9.74 10^3/uL (4.4-10.8)
[2023-07-08 06:59] LABS: Anion Gap 8.4 mmol/L (3-11); BUN 13 mg/dL (7-18); C-Reactive Protein 19.36 mg/dL (<or=0.5); CO2 24.6 mmol/L (21.0-32.0); CREATININE 0.7 mg/dL (0.55-1.02); Calcium 8.3 mg/dL (8.5-10.1); Chloride 105 mmol/L (98-107); Estimated GFR 103.35 (mL/min/1.73m2); Glucose 115 mg/dL (74-106); Potassium 4.1 mmol/L (3.5-5.1); Sodium 138 mmol/L (136-145)
[2023-07-08] MEDS: Enoxaparin 40 MG/0.4 ML SYR SC (08:04)
[2023-07-08] MEDS: Lactobacillus Acidophilus CAP 1 CAP PO (08:04)
[2023-07-08] MEDS: Pantoprazole 40 MG TABCR PO (08:05)
[2023-07-08] MEDS: Lisinopril 5 MG TAB PO ×2 (08:05→21:06)
[2023-07-08] MEDS: Potassium Chloride 20 MEQ TABCR PO (08:05)
[2023-07-08] MEDS: buPROPion-XL 150 MG TABCR 300 MG PO (08:05)
[2023-07-08] MEDS: Normal Saline Flush 10 ML SYR IVP ×2 (08:07→21:08)
[2023-07-08] MEDS: Gabapentin 800 MG TAB PO ×2 (11:52→21:06)
[2023-07-08] MEDS: Pramipexole 0.25 MG TAB PO ×2 (11:52→21:09)
[2023-07-08] MEDS: hydroCHLOROthiazide 25 MG TAB PO ×2 (11:53→14:07)
--- NOTE | 2023-07-08 13:11 | W.PM.PROGNOT ---
Date of Service Date of service: 07/08/23 Time of Service: 13:12 Assessment and Plan Assessment and plan (1) Severe sepsis: Status: Resolved Assessment and plan: source - left lower extremity cellulitis, stabilized hemodynamically after receiving IV resuscitation, blood cultures negative to date clinically improving with CRP trending down heel wound culture growing staph, sensitivities finalized. will change to cefazolin with downstep to cephalexin at discharge if continues to improve. (2) Cellulitis: Status: Acute Assessment and plan: LLE cellulitis is the presumed source of her sepsis. trend CRP for one more day blood Cultures with NO GROWTH to date. MRSA nasal swab was negative. Wound consult for heel fissure (3) Left leg swelling: Status: Acute Assessment and plan: Venous US negative, no evidence of abscess (4) HANH (acute kidney injury): Status: Resolved Assessment and plan: resolved with fluids Continue to monitor (5) Hypomagnesemia: Status: Resolved Assessment and plan: Given 1g in ED, (6) Prolonged QT interval: Status: Resolved Assessment and plan: On telemetry QTC , no further report of QTC prolongation can discontinue (7) Acute hypokalemia: Status: Acute Assessment and plan: continue repletion and follow (8) Hypertension: Status: Chronic Assessment and plan: resumed lisinopril and now will add hctz back continue to monitor (9) Postprandial hypoglycemia: Status: Acute Assessment and plan: Dumping syndrome Hx since bariatric surgery. Continue acarbose to help with this and has a CGM. Gluc 1 hour PC, stable (10) DVT prophylaxis: Status: Acute Assessment and plan: Continue lovenox (11) Discharge planning issues: Status: Acute Assessment and plan: Will discharge to home once medically stable and down stepped to oral antibiotics Discussed with Dr. Hodge Subjective Subjective Patient reports: no new complaints, feels better, tolerating liquids well, tolerating a regular diet and afebrile (max temp 38.4) Exam Narrative Exam Narrative: Pleasant and conversant. Const General: cooperative, comfortable and no acute distress Nutritional Appearance: well nourished Orientation: alert, awake and oriented x3 HENMT Head: normal to inspection, normocephalic and atraumatic Mouth: oral mucosae normal Eyes General: appearance normal, both eyes and all related structures Sclera: sclerae normal Neck Neck: normal visual inspection and full ROM Chest Chest: normal inspection of the chest Resp Effort & Inspection: normal respiratory effort Cardio Rate: regular rate (pedal pulse) Rhythm: regular rhythm GI Inspection: normal to inspection Palpation: soft Skin General skin exam: erythema (improving in color and receding ) Neuro General: patient alert, patient awake, patient oriented x3 and no focal motor deficits Extrem General: abnormal to inspection and edema Laterality: left Psych Appearance: grossly normal Speech and Movement: speech clear Mood: congruent mood Affect: normal affect Objective Last Vital Signs Temp 36.8 C 07/08/23 11:41 Pulse 88 07/08/23 11:41 Resp 17 07/08/23 11:41 BP 131/89 07/08/23 11:41 Pulse Ox 99 07/08/23 11:41 Laboratory Results - last 24 hr 07/08/23 06:20 WBC 9.74 RBC 3.51 L Hgb 9.6 L Hct 27.8 L MCV 79 L MCH 27.4 MCHC 34.5 RDW 16.3 H Plt Count 330 MPV 9.7 Immature Gran % 4.3 Neutrophils % 62.5 Lymphocytes % 19.0 Monocytes % 11.6 Eosinophils % 2.2 Basophils % 0.4 Nucleated RBC % 0.0 Absolute Neutrophils 6.09 Absolute Lymphocytes 1.85 Absolute Monocytes 1.13 H Absolute Eosinophils 0.21 Absolute Basophils 0.04 Sodium 138 Potassium 4.1 Chloride 105 Carbon Dioxide 24.6 Anion Gap 8.4 BUN 13 Creatinine 0.7 Est GFR (CKD-EPI 2020) 103.35 Glucose 115 H Calcium 8.3 L C-Reactive Protein 19.36 H Time Spent with Patient Time Spent with Patient: 25-34 minutes Time was spent: preparing to see the patient(eg.review tests), obtaining and/or reviewing separately otained hiistory, ordering medications,tests, procedures, referring, communicating with other health interior plant caretaker, indepentently interpreting results and counseling the patient
[2023-07-08] MEDS: ceFAZolin 2 GM/50 ML BAG IVPB ×2 (14:07→23:08)
[2023-07-08] MEDS: Ketorolac 30 MG/ML VIAL IVP (15:34)
[2023-07-08] MEDS: Water,Injection,Sterile 10 ML VIAL (15:48)
[2023-07-08] MEDS: Glucagon 1 MG VIAL IJ (15:48)
[2023-07-08] MEDS: VANCOMYCIN/WATER (PEG) 2 GM/400 ML BAG IV (15:50)
[2023-07-08] MEDS: Ondansetron O.D.T. 4 MG TABEF PO (16:05)
[2023-07-08] MEDS: Melatonin 3 MG TAB 9 MG PO (21:06)
[2023-07-08] MEDS: Venlafaxine 37.5 MG CAPCR 75 MG PO (21:09)
[2023-07-09 02:19] VITALS: BP 116/86; PULSE 84; RESP 18; TEMP 37.4; O2SAT 94
[2023-07-09] MEDS: Acetaminophen 500 MG TAB 1000 MG PO ×3 (06:27→22:41)
[2023-07-09] MEDS: ceFAZolin 2 GM/50 ML BAG IVPB ×3 (06:29→21:36)
[2023-07-09] MEDS: Lactobacillus Acidophilus CAP 1 CAP PO (07:42)
[2023-07-09] MEDS: buPROPion-XL 150 MG TABCR 300 MG PO (07:42)
[2023-07-09] MEDS: Potassium Chloride 20 MEQ TABCR PO (07:43)
[2023-07-09] MEDS: Pantoprazole 40 MG TABCR PO (07:43)
[2023-07-09] MEDS: Lisinopril 5 MG TAB PO ×2 (07:43→20:19)
[2023-07-09] MEDS: Enoxaparin 40 MG/0.4 ML SYR SC (07:44)
[2023-07-09] MEDS: hydroCHLOROthiazide 25 MG TAB PO ×2 (07:44→17:23)
[2023-07-09] MEDS: Normal Saline Flush 10 ML SYR IVP ×4 (07:45→19:03)
[2023-07-09 07:56] VITALS: BP 120/92; PULSE 89; RESP 18; TEMP 37; O2SAT 97
[2023-07-09] MEDS: Ketorolac 30 MG/ML VIAL IVP ×2 (09:30→19:03)
--- NOTE | 2023-07-09 10:28 | PGE_ITS ---
Date of Service Date of service: 07/09/23 Time of Service: 10:28 Assessment and Plan Assessment and plan (1) Severe sepsis: Status: Resolved Assessment and plan: source - left lower extremity cellulitis, stabilized hemodynamically after receiving IV resuscitation, blood cultures negative to date clinically improving with CRP trending down, repaet in AM heel wound culture growing staph (MSSA), sensitivities finalized. Conitnue cefazolin, monitor for blood culture results. When discharge will downstep to oral cephalexin for 24 hours then discharge if not febrile while not on scheduled APAP. Leukocytosis this AM: might be reactive d/t rigors with rapid elevation in temperature and hypoxemia episose (occurring at 15:00 on 07/07 as per patient -a rapid response was called) -Patient on RA, afebrile, no cyanosis when seen (2) Cellulitis: Status: Acute Assessment and plan: LLE cellulitis is the presumed source of her sepsis. CRP is 17 will repeat in AM Blood Cultures with NO GROWTH to date. MRSA nasal swab was negative. Wound consult for heel fissure Considering podiatry consult (3) Left leg swelling: Status: Acute Assessment and plan: Imaging was negative for DVt or abscess; (4) HANH (acute kidney injury): Status: Resolved Assessment and plan: resolved BMP in AM (5) Hypomagnesemia: Status: Resolved Assessment and plan: Resolved, Mg 1.9 (6) Prolonged QT interval: Status: Resolved Assessment and plan: Resolved On telemetry QTC , no further report of QTC prolongation can discontinue (7) Acute hypokalemia: Status: Acute Assessment and plan: continue repletion BMP in AM (8) Hypertension: Status: Chronic Assessment and plan: On lisinopril and hctz continue to monitor (9) Postprandial hypoglycemia: Status: Acute Assessment and plan: Dumping syndrome Hx since bariatric surgery. Continue acarbose to help with this and has a CGM. Continue Gluc 1 hour PC, stable (10) DVT prophylaxis: Status: Acute Assessment and plan: Continue lovenox (11) Discharge planning issues: Status: Acute Assessment and plan: Will discharge to home once medically stable and down stepped to oral antibiotics -Starting oral antibitics 24 hours prior and should not get scheduled APAP to evaluate the abscence of fever Discussed with Dr. Owens Subjective Subjective Patient reports: feels better, tolerating liquids well, tolerating a regular diet, voiding w/o difficulty, flatus, bowel movement and blood in stool; denies still having pain, diarrhea, nausea, vomiting, shortness of breath or fever Interval history since last seen: Reporting rigors, air hunger and hypoxemia on 07/07 at 15:00, feeling well now Exam Narrative Exam Narrative: Constitutional The patient is in bed comfortable this AM , spouse Jayne at bedside, relating episode of rapid response from the day prior in PM. HENMT: Facial structures with normal appearance Neck: Normal ROM, no meningeal signs Neuro:alert and oriented X 4 Resp: Clear lung bilaterally Cardio: regular rhythm, S1, S2, no murmur, positive pulses to all 4 extremities, improved pitting edema to left lower extremity. GI: Abdomen is not distended, soft and non tender, bowel sounds are present Integumentary: redness to LLE's improving, redness to left groin area reduced, less indurated- improving Psych: RASS 0, congruent mood and normal affect. Objective Last Vital Signs Temp 37 C 07/09/23 07:56 Pulse 89 07/09/23 07:56 Resp 18 07/09/23 07:56 BP 120/92 H 07/09/23 07:56 Pulse Ox 97 07/09/23 07:56 Time Spent with Patient Time Spent with Patient: >50 minutes Time was spent: preparing to see the patient(eg.review tests), obtaining and/or reviewing separately otained hiistory, ordering medications,tests, procedures, referring, communicating with other health nurse behavioral health care, indepentently interpreting results, counseling the patient and care coordination
[2023-07-09 12:20] LABS: Abs Immature Grans 0.83 10^3/uL (0.0-0.06); Absolute Basophil Count 0.08 10^3/uL (0.0-0.2); Absolute Eosinophil Count 0.35 10^3/uL (0.0-0.7); Absolute Lymphocyte Count 2.89 10^3/uL (1.2-3.4); Basophils % 0.6; Eosinophils % 2.7; HCT 34.5 % (36.0-46.0); HGB 11.4 g/dL (11.2-15.7); Immature Grans % 6.4; Lymphocytes % 22.1; MCH 26.9 pg (27.0-33.0); MCV 81 fL (80-95); MPV 9.4 fL (8.0-11.0); Monocytes % 7.7; Neutrophils % 60.5; Platelet Count 390 10^3/uL (130-400); RBC 4.24 10^6/uL (3.93-5.22); RDW 16.4 % (11.7-14.6); RDW-SD 48.8 fL; WBC 13.07 10^3/uL (4.4-10.8)
[2023-07-09 12:27] LABS: Absolute Monocyte Count 1.01 10^3/uL (0.1-0.8); Absolute Neutrophil Count 7.91 10^3/uL (1.2-6.7)
[2023-07-09 12:28] LABS: Anion Gap 8.7 mmol/L (3-11); BUN 10 mg/dL (7-18); C-Reactive Protein 18.13 mg/dL (<or=0.5); CO2 29.3 mmol/L (21.0-32.0); CREATININE 0.8 mg/dL (0.55-1.02); Calcium 8.8 mg/dL (8.5-10.1); Chloride 102 mmol/L (98-107); Estimated GFR 88.05 (mL/min/1.73m2); Glucose 119 mg/dL (74-106); Magnesium 1.9 mg/dL (1.8-2.4); Potassium 3.2 mmol/L (3.5-5.1); Sodium 140 mmol/L (136-145)
--- NOTE | 2023-07-09 12:42 | PDOC.CMPRO ---
Date of service: 07/09/23 Time of Service: 12:42 Care Management Progress Note Progress Note Text Progress Note Text: S/O: Monisha was sitting up in bed visiting with Jayne when CM met with her. Monisha's LLE cellulites is being closely monitored and treated with IV ABX. Per pt, she is waiting to have a wound consult and understands that availability is limited today. Monisha also notes that she was hoping to read about the rapid response she had yesterday in her portal and hasn't seen anything posted. CM huddled with hospitalist, CC RN, RN Returned Goods Repairer individually and will continue to follow. Anticipate at this time, Monisha will remain at [facility] until medically cleared and home ABX course is known. A: Monisha was admitted 07/03/23 with cellulitis, sepsis P: Anticipate once treatment recommendations are known, discharge planning considerations will be reviewed with Monisha. CM continues to follow. SDOH(Care Management) Screening Will the Patient Participate in the Screening?: Yes Do you worry about having a steady place to live?: no Problems where you live: no known problems In the past 12 months, have you had to go without electric, gas, oil or water in your home?: no Have you or anyone in your house had to go without enough food to eat?: no Has lack of transportation kept you from medical appointments or from doing things needed for daily living?: no Has anyone in your support network made you feel unsafe for any reason?: no
[2023-07-09 12:45] LABS: Procalcitonin 1.2 ng/mL
[2023-07-09 12:55] VITALS: BP 119/86; PULSE 92; RESP 17; TEMP 36.8; O2SAT 97
[2023-07-09 13:10] LABS: Diff Comment Agrees w/ Instrument
[2023-07-09 13:11] LABS: RBC Morphology Normal
[2023-07-09] MEDS: Pramipexole 0.25 MG TAB PO ×2 (14:02→20:19)
[2023-07-09] MEDS: Gabapentin 800 MG TAB PO ×2 (14:02→20:18)
[2023-07-09] MEDS: oxyCODONE 5 MG TAB PO ×2 (14:44→22:41)
[2023-07-09 16:45] VITALS: BP 109/85; PULSE 98; RESP 17; TEMP 36.8; O2SAT 97
[2023-07-09] MEDS: POTASSIUM CHLORIDE 20 MEQ/100 ML BAG 50 MEQ IVINF ×2 (17:23→19:07)
[2023-07-09 19:56] VITALS: BP 123/87; PULSE 95; RESP 17; TEMP 36.7; O2SAT 97
[2023-07-09] MEDS: Melatonin 3 MG TAB 9 MG PO (20:18)
[2023-07-09] MEDS: Venlafaxine 37.5 MG CAPCR 75 MG PO (20:18)
[2023-07-09 22:41] VITALS: BP 133/97; PULSE 97; RESP 16; TEMP 36.3; O2SAT 97
[2023-07-10] VITALS (10 sets, daily range): BP systolic 120–145; BP diastolic 84–102; PULSE 92–105; RESP 17–20; TEMP 35.7–38.5; O2SAT 93–98
--- NOTE | 2023-07-10 | DI.MRI_ITS ---
Exam(s) MR LOWER EXTREMITY LT WO/W CLINICAL HISTORY: abscess medial lower leg above ankle. TECHNIQUE: Multiplanar multisequence MRI was performed. CONTRAST MATERIAL: IV Contrast: 20 mL of Dotarem contrast administered. COMPARISON: None. FINDINGS: BONES/JOINTS: No fracture or contusion pattern. No bone lesions identified. The talar dome is smooth. The ankle mortise is maintained. No joint effusion is present. MUSCULOTENDINOUS STRUCTURES: Achilles tendon is intact. The planar fascia is unremarkable. The medial flexor, anterior extensor, and peroneal tendons are intact. SOFT TISSUES: Severe edema in the skin and subcutaneous fat. No focal fluid collection or abcess. ENHANCEMENT: No suspicious enhancement identified. IMPRESSION: Severe edema. No abcess. No evidence of osteomyelitis. DATA REPOSITORY:
[2023-07-10] MEDS: Normal Saline Flush 10 ML SYR IVP ×7 (05:11→20:28)
[2023-07-10] MEDS: ceFAZolin 2 GM/50 ML BAG IVPB ×3 (05:11→22:03)
[2023-07-10 06:57] LABS: Abs Immature Grans 1.07 10^3/uL (0.0-0.06); Absolute Basophil Count 0.07 10^3/uL (0.0-0.2); Absolute Lymphocyte Count 2.68 10^3/uL (1.2-3.4); Absolute Monocyte Count 1.21 10^3/uL (0.1-0.8); Basophils % 0.5; Eosinophils % 2.9; HCT 30.5 % (36.0-46.0); HGB 10.1 g/dL (11.2-15.7); Immature Grans % 7.7; Lymphocytes % 19.3; MCH 26.9 pg (27.0-33.0); MCHC 33.1 % (32.0-36.0); MCV 81 fL (80-95); MPV 9.5 fL (8.0-11.0); Monocytes % 8.7; Neutrophils % 60.9; Platelet Count 451 10^3/uL (130-400); RBC 3.76 10^6/uL (3.93-5.22); RDW 16.2 % (11.7-14.6); WBC 13.91 10^3/uL (4.4-10.8)
[2023-07-10 07:03] LABS: Anion Gap 7.3 mmol/L (3-11); BUN 10 mg/dL (7-18); CO2 31.7 mmol/L (21.0-32.0); CREATININE 0.8 mg/dL (0.55-1.02); Calcium 8.6 mg/dL (8.5-10.1); Chloride 103 mmol/L (98-107); Estimated GFR 88.05 (mL/min/1.73m2); Glucose 116 mg/dL (74-106); Potassium 3.4 mmol/L (3.5-5.1); Sodium 142 mmol/L (136-145)
[2023-07-10 07:04] LABS: Magnesium 1.6 mg/dL (1.8-2.4)
[2023-07-10] MEDS: Pantoprazole 40 MG TABCR PO (07:10)
[2023-07-10] MEDS: Ketorolac 30 MG/ML VIAL IVP ×2 (07:10→13:50)
[2023-07-10 07:32] LABS: Absolute Neutrophil Count 8.47 10^3/uL (1.2-6.7)
[2023-07-10 07:33] LABS: Diff Comment Diff Reviewed; RBC Morphology Normal
[2023-07-10] MEDS: Potassium Chloride 20 MEQ TABCR PO (07:53)
[2023-07-10] MEDS: Enoxaparin 40 MG/0.4 ML SYR SC (07:53)
[2023-07-10] MEDS: hydroCHLOROthiazide 25 MG TAB PO ×2 (07:53→16:15)
[2023-07-10] MEDS: Lactobacillus Acidophilus CAP 1 CAP PO (07:53)
[2023-07-10] MEDS: buPROPion-XL 150 MG TABCR 300 MG PO (07:53)
[2023-07-10] MEDS: Lisinopril 5 MG TAB PO ×2 (07:53→20:25)
--- NOTE | 2023-07-10 09:17 | PGE_ITS ---
Date of Service Date of service: 07/10/23 Time of Service: 09:17 Assessment and Plan Assessment and plan (1) Severe sepsis: Status: Resolved Assessment and plan: Source - left lower extremity cellulitis, stabilized hemodynamically after receiving IV resuscitation,initial blood cultures negative to date CRP still trending down today Heel wound culture growing staph (MSSA), sensitivities finalized. Priliminary GNR showed not growth Continue cefazolin Second set of blood cultures from 07/08/2023: No growth at 24 hours Considering downgrading to oral cephalexin upon discharge and initiate oral antibiotics 24 hours prior to discharge to monitor response On PRN APAP now to avoid masking febrile state Leukocytosis this AM similar to previous day :initially thought to be reactive leukocytosis d/t rigors with rapid elevation in temperature and hypoxemia episose (occurring at 15:00 on 07/07 as per patient -a rapid response was called); will closely trend -CBC in AM low grade fever this AM at 38.3 C or 100.9 F (2) Cellulitis: Status: Acute Assessment and plan: LLE cellulitis is the presumed source of her sepsis. CRP is 17 will repeat in AM Blood Cultures with no growth to date. MRSA nasal swab was negative. Wound consult for heel fissure pending from admit Podiatry consult initiated yesterday and in progress:See Dr. Cox notes (3) Left leg swelling: Status: Acute Assessment and plan: Imaging on 07/04 were negative for DVT or abscess New left calf pain redness, tenderness and warmth: US venous LLE ordered From discussion with Dr. Cox after consulting on patient : MD will order MRI d/t concern for abscess (4) HANH (acute kidney injury): Status: Resolved Assessment and plan: resolved BMP in AM (5) Hypomagnesemia: Status: Resolved Assessment and plan: Mg 1.6, IV Mg ordered Mg in AM (6) Prolonged QT interval: Status: Resolved Assessment and plan: Resolved and telemetry discontinued (7) Acute hypokalemia: Status: Acute Assessment and plan: KCl IVPB ordered BMP in AM (8) Hypertension: Status: Chronic Assessment and plan: Continue lisinopril and hydrochlorothiazide (9) Postprandial hypoglycemia: Status: Acute Assessment and plan: Dumping syndrome Hx since bariatric surgery. On Acarbose to help with this and has a CGM. Continue Gluc 1 hour PC, stable 96-113 (10) DVT prophylaxis: Status: Acute Assessment and plan: Continue lovenox (11) Discharge planning issues: Status: Acute Assessment and plan: Will discharge to home once medically stable and down stepped to oral antibiotics -Starting oral antibitics 24 hours prior and should not get scheduled APAP to evaluate the abscence of fever -Care transferred to Dr. Owens Discussed with Dr. Owens Subjective Subjective Patient reports: feels better, tolerating liquids well, tolerating a regular diet, voiding w/o difficulty, flatus, bowel movement, fever and other (left calf pain and warmth); denies diarrhea, blood in stool, nausea, vomiting or shortness of breath Exam Narrative Exam Narrative: Constitutional The patient is in bed comfortable this AM HENMT: Facial structures with normal appearance Neck: Normal ROM, no meningeal signs Neuro:alert and oriented X 4 Resp: Clear lung bilaterally Cardio: regular rhythm, S1, S2, no murmur, positive pulses to all 4 extremities, improved pitting edema to left lower extremity. GI: Abdomen is not distended, soft and non tender, bowel sounds are present Ext: Slightly diffused redness on left calf, higher level than previous day, increased warmth, tender to touch; initial anterior redness to left lower leg is still receding Integumentary:Redness to left groin area is reduced, decreased induration- improving Psych: RASS 0, congruent mood and normal affect. Objective Last Vital Signs Temp 37.2 C 07/10/23 08:59 Pulse 105 H 07/10/23 07:48 Resp 17 07/10/23 07:48 BP 126/95 H 07/10/23 08:59 Pulse Ox 98 07/10/23 07:48 Laboratory Results - last 24 hr 07/09/23 07/09/23 07/09/23 11:38 11:39 12:09 WBC 13.07 H RBC 4.24 Hgb 11.4 Hct 34.5 L MCV 81 MCH 26.9 L MCHC 33.0 RDW 16.4 H Plt Count 390 MPV 9.4 Immature Gran % 6.4 Neutrophils % 60.5 Lymphocytes % 22.1 Monocytes % 7.7 Eosinophils % 2.7 Basophils % 0.6 Nucleated RBC % 0.0 Absolute Neutrophils 7.91 H Absolute Lymphocytes 2.89 Absolute Monocytes 1.01 H Absolute Eosinophils 0.35 Absolute Basophils 0.08 RBC Morphology Normal Sodium 140 Potassium 3.2 L Chloride 102 Carbon Dioxide 29.3 Anion Gap 8.7 BUN 10 Creatinine 0.8 Est GFR (CKD-EPI 2020) 88.05 Glucose 119 H Calcium 8.8 Magnesium Cancelled Cancelled 1.9 C-Reactive Protein Cancelled 18.13 H Procalcitonin 1.2 07/10/23 06:11 WBC 13.91 H RBC 3.76 L Hgb 10.1 L Hct 30.5 L MCV 81 MCH 26.9 L MCHC 33.1 RDW 16.2 H Plt Count 451 H MPV 9.5 Immature Gran % 7.7 Neutrophils % 60.9 Lymphocytes % 19.3 Monocytes % 8.7 Eosinophils % 2.9 Basophils % 0.5 Nucleated RBC % 0.0 Absolute Neutrophils 8.47 H Absolute Lymphocytes 2.68 Absolute Monocytes 1.21 H Absolute Eosinophils 0.40 Absolute Basophils 0.07 RBC Morphology Normal Sodium 142 Potassium 3.4 L Chloride 103 Carbon Dioxide 31.7 Anion Gap 7.3 BUN 10 Creatinine 0.8 Est GFR (CKD-EPI 2020) 88.05 Glucose 116 H Calcium 8.6 Magnesium 1.6 L C-Reactive Protein Procalcitonin Time Spent with Patient Time Spent with Patient: >50 minutes Time was spent: preparing to see the patient(eg.review tests), obtaining and/or reviewing separately otained hiistory, ordering medications,tests, procedures, referring, communicating with other health healthcare financial analyst, indepentently interpreting results, counseling the patient and care coordination
[2023-07-10] MEDS: MAGNESIUM SULFATE 2 GM/50 ML BAG IVINF (09:34)
[2023-07-10] MEDS: oxyCODONE 5 MG TAB PO ×2 (10:30→20:25)
[2023-07-10 11:09] LABS: Lab Add On Test DONE
[2023-07-10] MEDS: POTASSIUM CHLORIDE 20 MEQ/100 ML BAG 50 MEQ IVINF ×2 (11:48→14:33)
[2023-07-10] MEDS: Gabapentin 800 MG TAB PO ×2 (12:36→20:25)
[2023-07-10] MEDS: Pramipexole 0.25 MG TAB PO ×2 (12:37→20:25)
--- NOTE | 2023-07-10 12:45 | DI.US_ITS ---
Exam(s) US LOWER EXTREMITY VENOUS LT EXAM: US LOWER EXTREMITY VENOUS LT CLINICAL HISTORY: left calf pain, warmth: DVT. TECHNIQUE: Lower extremity venous ultrasound performed using grayscale, color-flow, and spectral Do ppler analysis. COMPARISON: No exams were available for comparison FINDINGS: The common femoral, femoral and popliteal veins demonstrate normal compressibility, augmentation, and color Doppler. The posterior tibial veins are patent. No saphenous vein thrombosis or other superfi cial venous thrombosis is seen. No hematoma or Barrientos's cyst is seen. Edema in the subcutaneous tiss ues of the lower leg. Small right groin lymph nodes, consistent with reactive lymph nodes. IMPRESSION: No evidence of DVT. DATA REPOSITORY:
--- NOTE | 2023-07-10 12:47 | CMPROGNOTE_ITS ---
Date of service: 07/10/23 Time of Service: 12:47 Care Management Progress Note Progress Note Text Progress Note Text: S/O: CM received phone call from Monisha in the morning who requested early CM consult. CM accommodated, Monisha was sitting up in bed, affect bright and welcoming. She reviewed course of events since last meeting with this job specification writer- three days prior. She shared concerns about not knowing what caused sudden symptom onset on Sunday-which she described as rigors, shortness of breath face and hands blue requiring oxygen. She shared positive remarks about Jani, RN and Dr. Hodge and the other providers, but shared uncertainty regarding cause. Monisha shared how scary is was for her and her , Jayne as well as their family who did not know if Monisha would be okay or not; CM validated her experience and provided empathic, supportive listening. Monisha inquired if Dr. Owens who came on service yesterday, and knowing him professionally-if he would be willing to oversee her care as she shared worries about her medical course thus far and had concerns she would like to review with him, especially regarding the rapid onset of symptoms she experienced prior to admission and on Sunday. She had all positive remarks to share about providers, but thought she might feel more confident if she could review with Dr. Owens, as well. CM alerted Dr. Owens to the request and reviewed with SPACE PLANNER, as well. Anticipate Dr. Owens will accommodate request to oversee Monisha's care. Monisha also requested support with human resource paperwork, CM agreed and started to prep paperwork for MD review. CM continues to follow. A: Monisha was admitted 07/03/23 with cellulitis, sepsis P: Per provider, with continued stabilization medically, Monisha may be able to return home on oral antibiotics; anticipate close monitoring over the next 48 hours. Podiatry consult pending, anticipate Monisha will have wound care orders for her heel, and reports she is learning how to do current dressing changes. CM continues to follow. SDOH(Care Management) Screening Will the Patient Participate in the Screening?: Yes Do you worry about having a steady place to live?: no Problems where you live: no known problems In the past 12 months, have you had to go without electric, gas, oil or water in your home?: no Have you or anyone in your house had to go without enough food to eat?: no Has lack of transportation kept you from medical appointments or from doing things needed for daily living?: no Has anyone in your support network made you feel unsafe for any reason?: no
--- NOTE | 2023-07-10 12:50 | POCOE_ITS ---
Date of service: 07/10/23 Time of Service: 12:00 Assessment and Plan Assessment and plan (1) Left leg swelling: Status: Acute (2) Severe sepsis: Status: Resolved (3) Septic shock: Status: Acute (4) Cellulitis: Status: Acute (5) CKD (chronic kidney disease) stage 2, GFR 60-89 ml/min: Status: Acute Assessment and plan: Patient was seen bedside today with present. Chart was reviewed. Imaging and labs were reviewed. No evidence for an abscess on CT taken on 07/05/2023. No evidence for a DVT on 07/05/2023. However patient currently with severe edema erythema warmth and point tenderness medially I recommended and ordered an MRI. If there is an abscess I would recommend or drainage of the abscess. Currently, patient denies any bug bite or scratches outdoors no injury due to her cat however states that over possible insect scratching.. I recommend continuing IV antibiotics. Will continue to follow. No surgical intervention planned or indicated at this time. Thank you for allowing me to participate in this patient's care History of Present Illness Narrative: Patient seen bedside for left lower extremity cellulitis. Patient states that about 1 week ago she was at work and experienced some rigors she went home and was not feeling better. Her noticed some pinkness in the left lower extremity which was extending from a small fissure they decided to go to the ER. In the ER she was noted to be with severe sepsis and admitted. Patient states that she has been on IV antibiotics since. She states that the redness in the leg extended more proximally initially and then decreased however she notices increased redness to the left leg medially. Does report point tenderness to the left leg medially as well. Denies any injury. Denies any bug bites. Denies any scratches. Denies any scratches from her cat. PFSH All Active Problems Left leg swelling (Acute) Discharge planning issues (Acute) Septic shock (Acute) Acute hypokalemia (Acute) Cellulitis (Acute) Arthritis of left glenohumeral joint (Acute) Menopausal symptoms (Acute) CKD (chronic kidney disease) stage 2, GFR 60-89 ml/min (Acute) New baseline?! Hx of hysterectomy for benign disease (Acute) benign, but painful/severe Ill feeling (Acute) Recent episodes of somnolence, off-balance & spells of being out of my body. Possibly psych rxn (2' anx, grief, milestones) .. but monitoring. Hypertension (Chronic) Hx HTN .. with med d/c post bariatric surg wt loss.. some elevated BPs, 05/2022, re-start low-dose lisinopril. LVH (left ventricular hypertrophy) (Acute) Newly noted, although Hx left axis dev (-90, -30) .. Hx HTN, Flash Pulm Edema (2019), obesity, s/p bariatric surgery. DUB (dysfunctional uterine bleeding) (Acute) Cont'd .. with 17 week sized uterus per pt rpt, 09/01/22 .. [ ] [facility] Surgery planned next Acute hypokalemia (Acute) Hypoglycemia (Acute) Hx BG < 35 per CGM Disorder of iron metabolism (Acute) Per 03/22/22 [facility] Gen surgery note Elevated PTHrP level (Acute) Per 03/22/22 [facility] Gen surgery note Hyperparathyroidism (Acute) Postprandial hypoglycemia (Acute) PP Hyperinsulinemic hypogly Dx per [facility] Endo ([facility]). 04/2022. per observation and tel d/w Dr. Ortega (future Endo, [facility]).. vs exercise-induced Status post bariatric surgery (Acute) Successful weight loss, but dangerous, symptomatic HYPOglycemia [neg dumping syndrome per [facility]] Skin lesion (Acute) Mild wound, 2' probable abd intertrigo. Facial twitching (Acute) Nodule of left lung (Acute) 3mm, incidental finding, LLL (12/2020 CT). [ ] 6 mo FU.. Paresthesias (Acute) Hypotension (Acute) post gastric bypass ... lowering ACEi, BB, CCB. DIuretics in place 2' LE edema (albeit improved). Hx of Marylou thyroiditis (Acute) Imbalance (Acute) Cervical radiculopathy (Acute) Hematuria (Acute) DVT prophylaxis (Acute) Fatty liver (Acute) 10/02/18 Dr Schroeder/[facility] Migraine headache with aura (Chronic) DR. VALDEZ 08/29/11 [employer] works Vertigo and/or pain Uterine leiomyoma (Chronic 11/02/15) On pelvic ultrasound uterus enlarged approximate 13 cm. 08/04/2021 pelvic pain radiating from back. Serrated adenoma of colon (Acute 07/07/15) Dr. Contreras, sessile colonic polyp, inflammatory polyp Sensorineural hearing loss, bilateral (Chronic 11/01/17) Restless leg (Acute 03/31/15) Some relief with iron infusion (albeit reaction to infusion), 05/2018. 06/16/19 f/u at sleep clinic Reflux esophagitis (Acute 07/07/15) Dr. Contreras gastritis Premenstrual dysphoric disorder (Acute 11/10/14) Gabriel Henderson MD [place] [facility] Positive TG (antinuclear antibody) (Acute 06/07/15) Mgrn wo aura wo ntrc mgr (Acute 09/05/11) DR. VALDEZ 08/29/11 [employer] works Vertigo and/or pain Incomplete tear of left rotator cuff (Acute 05/31/16) Depressive disorder (Chronic 05/23/11) Wellbutrin 2012, discon 12/2012, restart 05/2013 Alopecia areata (Acute 05/23/11) Dx'ed 1990s Hair prosthesis Medical History Pre-op evaluation Hysterectomy planned, told she would need [facility] due to Hx and anatomy History of endometrial biopsy (~05/26/22) [facility] Dope Pourer, 05/26/22 Post-resection malabsorption Per 03/22/22 [facility] Gen surgery note Heel lesion Right heel, cracked skin .. inner foot tenderness .. out of proportion tenderness .. possible assoc with fever? (improved with soaking, but not closing) Fever Over 1 week; T 103/102/99; Neg COVID; Awaiting Flu SARS-CoV-2 positive (~10/26/21) Dysmenorrhea [place] exposure Dtr (+) .. Sore Throat, lab [ ] Dumping syndrome (04/12/21) NOT per Bariatric Team.. Dx per [facility] Endo .. [facility] Bariatric Team re-eval as NEG for dumping syndrome, 05/2021 Scab of knee fell last week, rough/dry scab, but irritated .. Trial debride @ home, consider surgtery if tender. Class 3 severe obesity due to excess calories with body mass index (BMI) of 40.0 to 44.9 in adult 07/31/19 [facility] Complicated grieving Her basically healthy mo due to COVID19 infection. She was intubated within days of becoming sick, sending out a cheerful text 4 days beforehand! Monisha has cancelled the trip just before flights, etc were shut down; she was originally worried for her fa 2' health issues and dementia. Close-knit family; inability for gathering for .. video/webexed with family in [facility] ([place]). Diabetes mellitus type 2 in obese Improved s/p bariatric surgery and wt loss BUT HYPOglycemia Encounter for insertion of venous access port on HOLD since K improvement 05/2019 Dehydration Preeclampsia Flash pulmonary edema Lymphedema referring to PT for evaluation and recommendations.. Bunion 12/24/18-nelson Yarbrough DPM Abnormal serum creatinine level (07/2018) Serious Creatinine elevation, with resolution between episodes of dehydration .. Sustained VT (ventricular tachycardia) during hypokalemia episode Angioedema 10/02/18 Dr Schroeder/[facility] Flushing 10/02/18 Dr Schroeder/[facility] Out of work (08/21/18) Recommend continuation of reduced hours due to continued electrolyte imbalances, fatigue and metabolic disorder. Unclear etiology makes it difficult to create a clear treatment plan, which in turn, makes routine and FT work difficult to manage. Revised [employer] Ppwk (06/2019). Solid, intermittent improvements, but unpredictable. 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 10/30/18, ik. I support time off from work due to continued electrolyte imbalances which cannot be explained. Re-referring to specialists @ [facility] as well as [facility]. Elevated plasma metanephrines (08/2018) Ordered by Endo, CT (Abd) [ ] ... follow up with Endo week of October 07. 08/2018, mian Kidney stone (02/27/12) Rectal hemorrhage (03/02/15) Dehydration (~08/21/18) Several episodes now .. She can almost gauge her K levels based on mm weakness. [ ] BMP [ ] IVF-KCl Bolus-K have helped with hypokalemia in between bouts of diarrhea/dehydration when IVF not needed. 09/2018, mian Rectal bleeding (03/02/15) Episodic - Was diagnosed with AVM's Mgrn w aura w intrc mgrn (09/05/11) DR. VALDEZ 08/29/11 [employer] works Vertigo and/or pain Impaired fasting glucose (02/11/14) A1C 6.1% 12/2012 .. A1C 5.8 07/04/18. Hypokalemia (11/07/16) Chronic, possible 2' IBS/Diarrhea. Continued despite GI improvements, albeit improved. Trial Eplerenone, to be followed by HCTZ decrease. 10/09/18 Intermittent improvement, but unsteady and unpredictable .. Monisha seems unable to maintain her own K levels WNL w/o bolus/infusions at this time. Unable to tolerate K-sparing diuretics. Cont to research, evaluate, consult .. 09/2018, mian Essential hypertension (12/05/12) Elevated BPs, especially DBP. Hx high BP since of twins (20yrs), noted in Nephro note (2016). HCTZ used x years for HTN & Edema. Spirono not tolerated (Hives/Flush). Trial Eplerenone, 10/09/18, ik Unable to tolerate eplerenone, angioedema-like reactions to K-sparing diuretics.. 09/2018, mian Diarrhea (10/29/15) Chronic, secretory .. s/p multiple [place], Bx. Trial cholestyramine, 10/2018, ik planned. Irritable bowel syndrome diarrhea predominant Alopecia Hx of adenomatous colonic polyps GERD (gastroesophageal reflux disease) Marylou's thyroiditis Depression Anemia Reflux esophagitis Surgical History S/P laparoscopic hysterectomy (~12/2022) Extensive lysis of adhesions, bilateral salpingectomy and cystoscopy, repair of vaginal lacerations for chronic pelvic pain and fibroid uterus. History of Nadia-en-Y gastric bypass (~11/2019) H/O colonoscopy (12/05/17) History of esophagogastroduodenoscopy (EGD) (12/05/17) Tonsillectomy section x3 Endometrial Ablation 2007 2012 EGD - MAC 2015 Colonoscopy - MAC (03/16/14) w/ bx 2015-serrated adenomatous polyp Most recent 12/05/2017 Family History Mother Pulmonary hypertension Heart disease valve replacement Father Prostate cancer Essential hypertension Parkinsons Sister Uterine cancer Brother Heart disease Father Hypertension Mother Heart disease Maternal Grandfather Diabetes Sister Age: 59 Cancer Other Colon cancer Social History Smoking/Tobacco Use Status: Never Smoking risk assessment performed?: Yes Alcohol Intake: current Alcohol Intake frequency: holidays/special occasions only Alcohol type: wine Drug use: Never Substance use type: does not use Adopted: No Caregiver/Support person: No Household members: spouse and other Details: Partner - Jayne, children Housing: house Number of Children: 4 number of grandchildren: 0 Communication Needs: Corrective Lenses Education Level: college current occupation: Daily today tested negative on this on the testing day negative negative di Pets and animals: Yes Pets and animals: cat(s) and dog(s) Sexually active: Yes Do you think of yourself as: lesbian/peña/homosexual Current gender identity: female What is your relationship status?: living with partner Panel score (0-1 are the most socially isolated patients): 1 What type of physical activity do you participate in: walking Duration: 15-30 minutes/day Frequency: 3-4 times per week Seatbelt use: always Working smoke detector in home: Yes Fire extinguisher in home: Yes Carbon monox detector in home: Yes Firearms in home: No Do you feel safe at home: Yes Do you feel safe in your relationship?: Yes Additional Social history: Lives in [place] with Jayne and their 2 18 yo girls, 4 older kids out of home. 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 Female Reproductive History Menstrual control method: permanent sterilization History History 2 3 Para 4 Hx # Term Pregnancies Multiple births 1 Hx # Pregnancies Ectopic pregnancies AB induced Hx Number of Living Children AB spontaneous Exam Extrem Other: Bilateral lower extremity physical exam: Derm: Erythema edema and warmth noted to the right leg more so medially just above the ankle joint with desquamation of the skin and blistering with serous fluid no palpable abscess at this time no crepitus no fluctuance no proximal streaking or lymphangitis. Small healed fissure noted to the left heel medially with some scabbing however no PAUL fissure erythema noted at this time No drainage stable eschar right lower extremity normal color and warmth without any open lesions or ulcerations. Hyperkeratosis with fissuring noted to the right heel. Vascular: Pulses are nonpalpable secondary to edema to the left lower extremity, palpable to the right. Hair growth is decreased. MSK: Tenderness to palpation noted to the left ankle medially just above the medial malleolus. Otherwise no pain on palpation prosper. Range of motion intact. Patient is able to move her left lower extremity without any issue. Neuro: Mentation intact Results Last Vital Signs Temp 99.0 F 07/10/23 11:33 Pulse 97 H 07/10/23 11:33 Resp 17 07/10/23 11:33 BP 133/102 H 07/10/23 11:33 Pulse Ox 95 07/10/23 11:33 Labs 07/10/23 06:11 07/10/23 06:11 Labs: Laboratory Results - last 24 hr 07/09/23 07/10/23 07/10/23 12:09 06:11 11:05 WBC 13.07 H 13.91 H RBC 4.24 3.76 L Hgb 11.4 10.1 L Hct 34.5 L 30.5 L MCV 81 81 MCH 26.9 L 26.9 L MCHC 33.0 33.1 RDW 16.4 H 16.2 H Plt Count 390 451 H MPV 9.4 9.5 Immature Gran % 6.4 7.7 Neutrophils % 60.5 60.9 Lymphocytes % 22.1 19.3 Monocytes % 7.7 8.7 Eosinophils % 2.7 2.9 Basophils % 0.6 0.5 Nucleated RBC % 0.0 0.0 Absolute Neutrophils 7.91 H 8.47 H Absolute Lymphocytes 2.89 2.68 Absolute Monocytes 1.01 H 1.21 H Absolute Eosinophils 0.35 0.40 Absolute Basophils 0.08 0.07 RBC Morphology Normal Normal Sodium 142 Potassium 3.4 L Chloride 103 Carbon Dioxide 31.7 Anion Gap 7.3 BUN 10 Creatinine 0.8 Est GFR (CKD-EPI 2020) 88.05 Glucose 116 H Calcium 8.6 Magnesium 1.6 L C-Reactive Protein 13.90 H Add-On Test Request DONE
--- NOTE | 2023-07-10 14:05 | PT.INIE ---
PT Notes Visit Reasons: cellulitis, sepsis Inpatient Physical Therapy Evaluation Date: 07/10/23 Referring Doctor: Calista Demarco APRN PT Orders: PT CONSULT: evaluate for assistive device Precautions: WBAT LLE Patient Profile/Admitting Diagnosis: Monisha was admitted from ED on 07/03/23 for management of sepsis and LLE cellultis. Social History/Home Situation: Monisha works here at [employer] in [place]. Lives with her and children in a single level home with 5 FLOR, single rail. Is normally fully independent without assistive device. Current Functional Limitations: reports difficulty managing with walker. Has been trying to walk on her own, but would like instruction in how to use device to help control her pain. Equipment Owned/DME: none Subjective: Monisha states that she's feeling a bit better. She's still having pain in the LLE, particularly when trying to walk. Objective: General Observation: Resting in chair with LLE elevated. Left ankle and calf show redness and edema, with various open areas. IV in LUE. Mental Status: A&Ox3 ROM: Right Upper Extremity: WFL Left Upper Extremity: WFL Right Lower Extremity: WFL Left Lower Extremity: Hip and knee motion WFL. Ankle DF allows approx 5*, PF 45*. Strength: Right Upper Extremity: WFL. Triceps 4+/5. Biceps not assessed due to IV placement. Left Upper Extremity: WFL for shoulder motions. Biceps 5/5. Triceps 5/5. Right Lower Extremity: Hip flexion 5/5. Quads 5/5. Ankle DF 5/5. Left Lower Extremity: Hip flexion 4/5. Quads 3/5 or greater (no pressure applied due to LLE cellulitis). Ankle DF 3-/5. Bed Mobility/Transfers: Bed mobility is independent per patient report Demonstrates the following: sit-stand: independent stand-sit: independent Gait: Ambulates 35' with FWW, cues for sequencing and equipment management. Upon return to room, demonstrates very limited reliance on FWW, leaving walker behind and stand pivoting to chair with WB through left forefoot. Instructed in use of single crutch in RUE to allow her to offload left foot and maintain balance, as walker is very cumbersome for her. She demonstrates good gait mechanics and equipment management with crutches, managing 20' with SBA. Stairs: unable to progress to stairs due to Balance: Static Sitting: normal Dynamic Sitting: normal Static Standing: good Dynamic Standing: fair Special Tests: Mobility Limitations Standardized Measure [facility] AM-PAC 6 clicks Basic Mobility Inpatient Short Form: Raw Score: 23 CMS Score: 11% impairment Informed Consent/Education: Patient instructed in purpose of PT consult and plan of care. Treatment: Initial Evaluation (95116) Gait Training (95129) : gait training with FWW and single crutch Assessment: Patient is a 52 year old female referred to physical therapy services with the diagnosis of RLE cellulitis and sepsis. Patient presents with limitations in functional mobility and independence with gait due to acute medical issues. She tolerated today's session very well, and will be appropriate for discharge home without further PT services once medically stable. Will see her for one additional PT session during acute care stay to educate on stair management prior to discharge. She currently demonstrates the following impairment level findings: 1. Decreased activity tolerance 2. decreased LLE strength 3. decreased skin integrity Impairments are contributing to the following functional limitations: 1. unable to manage stairs Patient is assessed as a Low 43616 complexity based on the following: History: Monisha is a 52 year old female seen in acute care setting for gait training during admission for management of sepsis and LLE cellulitis. Complicating medical factors listed below. Examination: functional limitations as noted above Presentation: evolving Decision Making: low complexity Goals: Goals X1 day 1. Stair management, supervision with single rail and contralateral cane, WBAT LLE Plan of Care/Treatment Plan: Patient to be seen for one additional PT session for stair training. Unable to perform during today's session due to increasing pain with ambulation. DISCHARGE RECOMMENDATIONS: Home with no services TREATMENT CODE/TIME: [id number] (72021, 32932) Please sign an return this page within 30 days if you agree with the above POC. Thank you! Physician Signature Date [facility] PFSH All Active Problems DVT prophylaxis (Acute) Left leg swelling (Acute) Discharge planning issues (Acute) Septic shock (Acute) Acute hypokalemia (Acute) Cellulitis (Acute) Arthritis of left glenohumeral joint (Acute) Menopausal symptoms (Acute) CKD (chronic kidney disease) stage 2, GFR 60-89 ml/min (Acute) New baseline?! Hx of hysterectomy for benign disease (Acute) benign, but painful/severe Ill feeling (Acute) Recent episodes of somnolence, off-balance & spells of being out of my body. Possibly psych rxn (2' anx, grief, milestones) .. but monitoring. Hypertension (Chronic) Hx HTN .. with med d/c post bariatric surg wt loss.. some elevated BPs, 05/2022, re-start low-dose lisinopril. LVH (left ventricular hypertrophy) (Acute) Newly noted, although Hx left axis dev (-90, -30) .. Hx HTN, Flash Pulm Edema (2019), obesity, s/p bariatric surgery. DUB (dysfunctional uterine bleeding) (Acute) Cont'd .. with 17 week sized uterus per pt rpt, 09/01/22 .. [ ] [facility] Surgery planned next Hypoglycemia (Acute) Hx BG < 35 per CGM Acute hypokalemia (Acute) Disorder of iron metabolism (Acute) Per 03/22/22 [facility] Gen surgery note Elevated PTHrP level (Acute) Per 03/22/22 [facility] Gen surgery note Hyperparathyroidism (Acute) Postprandial hypoglycemia (Acute) PP Hyperinsulinemic hypogly Dx per [facility] Endo (Echt). 04/2022. per observation and tel d/w Dr. Ortega (future Endo, [facility]).. vs exercise-induced Status post bariatric surgery (Acute) Successful weight loss, but dangerous, symptomatic HYPOglycemia [neg dumping syndrome per [facility]] Skin lesion (Acute) Mild wound, 2' probable abd intertrigo. Facial twitching (Acute) Nodule of left lung (Acute) 3mm, incidental finding, LLL (12/2020 CT). [ ] 6 mo FU.. Paresthesias (Acute) Hypotension (Acute) post gastric bypass ... lowering ACEi, BB, CCB. DIuretics in place 2' LE edema (albeit improved). Depressive disorder (Chronic 05/23/11) Wellbutrin 2012, discon 12/2012, restart 05/2013 Hx of Marylou thyroiditis (Acute) Imbalance (Acute) Cervical radiculopathy (Acute) Hematuria (Acute) Fatty liver (Acute) 10/02/18 Dr Schroeder/[facility] Migraine headache with aura (Chronic) DR. VALDEZ 08/29/11 Topamax works Vertigo and/or pain Uterine leiomyoma (Chronic 11/02/15) On pelvic ultrasound uterus enlarged approximate 13 cm. 08/04/2021 pelvic pain radiating from back. Serrated adenoma of colon (Acute 07/07/15) Dr. Contreras, sessile colonic polyp, inflammatory polyp Sensorineural hearing loss, bilateral (Chronic 11/01/17) Restless leg (Acute 03/31/15) Some relief with iron infusion (albeit reaction to infusion), 05/2018. 06/16/19 f/u at sleep clinic Reflux esophagitis (Acute 07/07/15) Dr. Contreras gastritis Premenstrual dysphoric disorder (Acute 11/10/14) Gabriel Henderson MD [place] [facility] Positive TG (antinuclear antibody) (Acute 06/07/15) Mgrn wo aura wo ntrc mgr (Acute 09/05/11) DR. 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 inner foot tenderness .. out of proportion tenderness .. possible assoc with fever? (improved with soaking, but not closing) Fever Over 1 week; T 103/102/99; Neg COVID; Awaiting Flu SARS-CoV-2 positive (~10/26/21) Dysmenorrhea [employer] exposure Dtr (+) .. Sore Throat, lab [ ] Dumping syndrome (04/12/21) NOT per Bariatric Team.. Dx per [facility] Endo .. [facility] Bariatric Team re-eval as NEG for dumping syndrome, 05/2021 Scab of knee fell last week, rough/dry scab, but irritated .. Trial debride @ home, consider surgtery if tender. Class 3 severe obesity due to excess calories with body mass index (BMI) of 40.0 to 44.9 in adult 07/31/19 [facility] Complicated grieving Her basically healthy mo due to COVID19 infection. She was intubated within days of becoming sick, sending out a cheerful text 4 days beforehand! Monisha has cancelled the trip just before flights, etc were shut down; she was originally worried for her fa 2' health issues and dementia. Close-knit family; inability for gathering for .. video/webexed with family in [facility] (mo in [place]). Diabetes mellitus type 2 in obese Improved s/p bariatric surgery and wt loss BUT HYPOglycemia Encounter for insertion of venous access port on HOLD since K improvement 05/2019 Dehydration Preeclampsia Flash pulmonary edema Lymphedema referring to PT for evaluation and recommendations.. Bunion 12/24/18-nelson Yarbrough DPM Abnormal serum creatinine level (07/2018) Serious Creatinine elevation, with resolution between episodes of dehydration .. Sustained VT (ventricular tachycardia) during hypokalemia episode Angioedema 10/02/18 Dr Schroeder/[facility] Flushing 10/02/18 Dr Schroeder/[facility] Out of work (08/21/18) Recommend continuation of reduced hours due to continued electrolyte imbalances, fatigue and metabolic disorder. Unclear etiology makes it difficult to create a clear treatment plan, which in turn, makes routine and FT work difficult to manage. Revised [facility] Ppwk (06/2019). Solid, intermittent improvements, but unpredictable. 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 10/30/18, mian. I support time off from work due to continued electrolyte imbalances which cannot be explained. Re-referring to specialists @ [facility] as well as [facility]. Elevated plasma metanephrines (08/2018) Ordered by [place], [place] (Abd) [ ] ... follow up with Endo week of October 07. 08/2018, mian Kidney stone (02/27/12) Rectal hemorrhage (03/02/15) Dehydration (~08/21/18) Several episodes now .. She can almost gauge her K levels based on mm weakness. [ ] BMP [ ] IVF-KCl Bolus-K have helped with hypokalemia in between bouts of diarrhea/dehydration when IVF not needed. 09/2018, mian Rectal bleeding (03/02/15) Episodic - Was diagnosed with AVM's Mgrn w aura w intrc mgrn (09/05/11) DR. VALDEZ 08/29/11 [employer] Vertigo and/or pain Impaired fasting glucose (02/11/14) A1C 6.1% 12/2012 .. A1C 5.8 07/04/18. Hypokalemia (11/07/16) Chronic, possible 2' IBS/Diarrhea. Continued despite GI improvements, albeit improved. Trial Eplerenone, to be followed by HCTZ decrease. 10/09/18 Intermittent improvement, but unsteady and unpredictable .. Monisha seems unable to maintain her own K levels WNL w/o bolus/infusions at this time. Unable to tolerate K-sparing diuretics. Cont to research, evaluate, consult .. 09/2018, mian Essential hypertension (12/05/12) Elevated BPs, especially DBP. Hx high BP since of twins (20yrs), noted in Nephro note (2017). HCTZ used x years for HTN & Edema. Spirono not tolerated (Hives/Flush). Trial Eplerenone, 10/09/18, ik Unable to tolerate eplerenone, angioedema-like reactions to K-sparing diuretics.. 09/2018, mian Diarrhea (10/29/15) Chronic, secretory .. s/p multiple [place], Bx. Trial cholestyramine, 10/2018, ik planned. Irritable bowel syndrome diarrhea predominant Alopecia Hx of adenomatous colonic polyps GERD (gastroesophageal reflux disease) Marylou's thyroiditis Depression Anemia Reflux esophagitis Surgical History S/P laparoscopic hysterectomy (~12/2022) Extensive lysis of adhesions, bilateral salpingectomy and cystoscopy, repair of vaginal lacerations for chronic pelvic pain and fibroid uterus. History of Nadia-en-Y gastric bypass (~11/2019) H/O colonoscopy (12/05/17) History of esophagogastroduodenoscopy (EGD) (12/05/17) Tonsillectomy section x3 Endometrial Ablation 2007 2012 EGD - MAC 2015 Colonoscopy - MAC (03/16/14) w/ bx 2016-serrated adenomatous polyp Most recent 12/05/2017
[2023-07-10] MEDS: Acetaminophen 500 MG TAB 1000 MG PO (14:40)
--- NOTE | 2023-07-10 15:09 | CHAPLAIN ---
Monisha was resting in bed when I visited. She shared that she had a rapid response incident on 07/07 and how that has affected her emotionally. Her , Jayne, and daughter Sandhya were present at the time of the rapid response and it was scary for them to witness. We talked about how she is processing all this. She learned that the rapid response was due to a drop in blood pressure and sugar levels. She is on IV antibiotics for her cellulites and isn't sure how much longer she'll need them IV. 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 I will continue to visit.
[2023-07-10] MEDS: Gadoterate meglumine 20 ML SYRINGE IVP (15:34)
[2023-07-10] MEDS: Melatonin 3 MG TAB 9 MG PO (20:25)
[2023-07-10] MEDS: Venlafaxine 37.5 MG CAPCR 75 MG PO (20:25)
[2023-07-11] VITALS (7 sets, daily range): BP systolic 131–140; BP diastolic 80–100; PULSE 94–102; RESP 14–19; TEMP 36.4–37.6; O2SAT 95–99
[2023-07-11] MEDS: Ketorolac 30 MG/ML VIAL IVP ×2 (01:56→10:34)
[2023-07-11] MEDS: ceFAZolin 2 GM/50 ML BAG IVPB ×3 (05:49→21:38)
[2023-07-11] MEDS: Normal Saline Flush 10 ML SYR IVP ×4 (05:50→21:39)
[2023-07-11] MEDS: Enoxaparin 40 MG/0.4 ML SYR SC (10:34)
[2023-07-11] MEDS: Pantoprazole 40 MG TABCR PO (10:35)
[2023-07-11] MEDS: Lactobacillus Acidophilus CAP 1 CAP PO (10:35)
[2023-07-11] MEDS: Potassium Chloride 20 MEQ TABCR PO (10:35)
[2023-07-11] MEDS: hydroCHLOROthiazide 25 MG TAB PO ×2 (10:36→15:14)
[2023-07-11] MEDS: Lisinopril 5 MG TAB PO ×2 (10:36→19:38)
[2023-07-11] MEDS: buPROPion-XL 150 MG TABCR 300 MG PO (10:36)
[2023-07-11 10:39] LABS: Abs Immature Grans 0.74 10^3/uL (0.0-0.06); Absolute Basophil Count 0.06 10^3/uL (0.0-0.2); Basophils % 0.4; Eosinophils % 2.5; HCT 30.4 % (36.0-46.0); HGB 10.2 g/dL (11.2-15.7); Immature Grans % 4.7; Lymphocytes % 20.4; MCH 27.2 pg (27.0-33.0); MCHC 33.6 % (32.0-36.0); MCV 81 fL (80-95); Monocytes % 8.8; Neutrophils % 63.2; Platelet Count 520 10^3/uL (130-400); RBC 3.75 10^6/uL (3.93-5.22); RDW 15.9 % (11.7-14.6); RDW-SD 46.5 fL; WBC 15.91 10^3/uL (4.4-10.8)
[2023-07-11 10:41] LABS: Absolute Lymphocyte Count 3.25 10^3/uL (1.2-3.4); Absolute Neutrophil Count 10.06 10^3/uL (1.2-6.7)
[2023-07-11 10:46] LABS: Anion Gap 5.6 mmol/L (3-11); BUN 13 mg/dL (7-18); C-Reactive Protein 11.21 mg/dL (<or=0.5); CO2 32.4 mmol/L (21.0-32.0); CREATININE 0.8 mg/dL (0.55-1.02); Calcium 8.4 mg/dL (8.5-10.1); Chloride 100 mmol/L (98-107); Estimated GFR 88.05 (mL/min/1.73m2); Glucose 121 mg/dL (74-106); Magnesium 1.9 mg/dL (1.8-2.4); Potassium 3.8 mmol/L (3.5-5.1); Sodium 138 mmol/L (136-145)
[2023-07-11 11:18] LABS: Diff Comment Diff Reviewed; RBC Morphology Normal
--- NOTE | 2023-07-11 11:43 | PT.INTREAT ---
PT Notes Visit Reasons: cellulitis, sepsis Date: 07/11/2023 PRECAUTIONS: WBAT LLE SUBJECTIVE: Pt in bed when approached for therapy tis morning, pt reports she is looking forward to trying the stairs and is hoping to be able to go home this afternoon if she is able to use the stairs. OBJECTIVE: ? PAIN: left foot 06/09 VITALS: Closely monitored by nursing Therapeutic Activities [id number]: Direct one-on-one instruction in dynamic activities to improve functional performance. ?? BED MOBILITY/TRANSFERS? Rolling L/R: supervision Supine-sit: supervision ? Sit-supine: ?supervision? Sit-stand: ?supervision ? Stand-sit: ?supervision? Bed-Chair:? supervision? Chair-bed: supervision Provided skilled cues and instruction on performance and technique throughout. Gait Training 40521h: Direct one-on-one instruction and skilled instruction in: Employing an assistive device Modified weight-bearing status Movement sequencing Turning and movement with proper form Provided verbal cues for equipment management and technique Provided instruction in gait pattern Patient education regarding pacing and breathing techniques to maximize activity tolerance? GAIT? Assistive Device: ?single crutch on right axilliary? Weight bearing: WBAT LLE Assist: SBA? Distance:??100'x2 seated break in between distance ? Deviation: ?Antalgic gait? STAIRS:? Step to gait pattern, ?Left handrail on going up. right handrail going down, 6 steps x 10 going up and down SBA? ASSESSMENT:?Pt required verbal cue for guidance with stair management strategies, pt felt confident going up and down after a few reps on the stairs. PLAN: Continue with balance training, global strengthening and general conditioning for improved safety, mobility and activity tolerance until pt is ready for DC. TREATMENT CODE/TIME: [id number] 15mins (9:15-9:30am)
[2023-07-11] MEDS: Pramipexole 0.25 MG TAB PO ×2 (12:13→19:37)
[2023-07-11] MEDS: Gabapentin 800 MG TAB PO ×2 (12:13→19:38)
--- NOTE | 2023-07-11 12:27 | PGE_ITS ---
Date of Service Date of service: 07/11/23 Time of Service: 12:27 Assessment and Plan Assessment and plan (1) Septic shock: Status: Acute Assessment and plan: Patient presented on 07/03 w/ symptoms and signs of severe sepsis w/ rigors, fevers, leukocytosis, lactic acidosis, along w/ tachycardia and hypotension. She was found to have severe cellulitis of left leg. blood cultures from 07/02 and repeat ones from 07/07 have shown no growth. Superficial wound cultures taken from the blistered area of skin on her left calf grew MSSA. She was treated w/ vancomycin (07/02-07/07) and cefepime (07/02-07/07) and was switched to cefazolin 07/07 which she remains on. At present she is showing continued improvement in erythema and improvement in her pain. She has been afebrile since yesterday afternoon (last fever was 38.5 at 1436 yesterday). I will dc her APAP and her ketorolac and treat her pain w/ ultram. avoid antipyretics and watch her for 24 hours off antipyretics to see if she has any further fevers. If she remains febrile then she can not be discharged until this is elucidated. She does not recall any tick bites. The presumed portal of entry of her cellulitis was the dried cracked fissures in her left heel, however the heel and the MTP joints themselves do not appear to be infected or red. Her MRI was negative for abscess, fascitits or osteomyelitis. If she remains afebrile overnight then I will dc her tomorrow on Keflex 500 mg qid x 7 days (she has already had 8 days of treatment now). (2) Cellulitis: Status: Acute Qualifiers: Site of cellulitis: extremity Site of cellulitis of extremity: lower extremity Laterality: left Qualified Code(s): L03.116 - Cellulitis of left lower limb (3) Left leg swelling: Status: Acute (4) Severe sepsis: Status: Resolved (5) CKD (chronic kidney disease) stage 2, GFR 60-89 ml/min: Status: Acute (6) Postprandial hypoglycemia: Status: Acute Assessment and plan: patient has had problems w/ post prandial hypoglycemia since her gastric bypass surgery. she takes Acarbose for this to slow down her gastric emptying. She had a hypoglycemia spell and fever spike on Friday 07/07 in the afternoon the resulted in a rapid response. She recovered quickly after dextrose was given. She also reports that she had felt short of breath and there are reports that she was hypoxic but I could not find any recordings of low oxygen saturations and she quickly recovered once her glucose was treated. continue to monitor her glucose AC/HS. Subjective Subjective Interval history since last seen: Patient left leg erythema and pain continue to improve although still w/ significant edema despite elevation. Repeat US of the legs was negative for DVT and MRI did not show any abscess or osteomyelitis. She has been afebrile overnight. I saw her w/ Dr. Cox at noon. Dr. Cox is applying some compression bandage to help reduce her edema. Exam Narrative Exam Narrative: Left leg still with erythema however the area has receded and is now below the level of her knee. she still has some haynes yellowish desquamated skin but no vanessa pus. The calf is less tender. Objective Last Vital Signs Temp 36.5 C 07/11/23 10:53 Pulse 95 H 07/11/23 10:53 Resp 17 07/11/23 10:53 BP 138/95 H 07/11/23 10:53 Pulse Ox 99 07/11/23 10:53 Laboratory Results - last 24 hr 07/11/23 07/11/23 10:26 10:26 WBC 15.91 H RBC 3.75 L Hgb 10.2 L Hct 30.4 L MCV 81 MCH 27.2 MCHC 33.6 RDW 15.9 H Plt Count 520 H MPV 9.0 Immature Gran % 4.7 Neutrophils % 63.2 Lymphocytes % 20.4 Monocytes % 8.8 Eosinophils % 2.5 Basophils % 0.4 Nucleated RBC % 0.0 Absolute Neutrophils 10.06 H Absolute Lymphocytes 3.25 Absolute Monocytes 1.40 H Absolute Eosinophils 0.40 Absolute Basophils 0.06 RBC Morphology Normal Sodium 138 Potassium 3.8 Chloride 100 Carbon Dioxide 32.4 H Anion Gap 5.6 BUN 13 Creatinine 0.8 Est GFR (CKD-EPI 2020) 88.05 Glucose 121 H Calcium 8.4 L Magnesium 1.9 C-Reactive Protein 11.21 H Cancelled Time Spent with Patient Time Spent with Patient: 35-49 minutes Time was spent: preparing to see the patient(eg.review tests), ordering medications,tests, procedures, referring, communicating with other health career technical education teacher, indepentently interpreting results, counseling the patient and care coordination
--- NOTE | 2023-07-11 14:25 | PGE_ITS ---
Date of Service Date of service: 07/11/23 Time of Service: 12:00 Assessment and Plan Assessment and plan (1) Left leg swelling: Status: Acute (2) Severe sepsis: Status: Resolved (3) Septic shock: Status: Acute (4) Cellulitis: Status: Acute Qualifiers: Site of cellulitis: extremity Site of cellulitis of extremity: lower extremity Laterality: left Qualified Code(s): L03.116 - Cellulitis of left lower limb (5) CKD (chronic kidney disease) stage 2, GFR 60-89 ml/min: Status: Acute Assessment and plan: Patient was seen and evaluated today. Chart was reviewed. Labs and imaging reviewed. MRI negative for abscess at this time. Given that the MRI is negative no surgical intervention is planned or indicated at this time. Patient herself is feeling better at this time there is no tenderness to the left medial ankle area today. I recommend continuing antibiotics. I recommended and applied a compressive dressing consisting of Xeroform gauze, 4 x 4, Kerlix and an Sina wrap. She is advised to elevate the left lower extremity at all times. Will see response with compression hopefully this alleviates some of the venous stasis dermatitis. Will continue to follow. Patient to follow-up with me within 1 week of discharge. Subjective Subjective Interval history since last seen: Patient was seen bedside today resting comfortably. She states that she is feeling better than she was yesterday. Denies any worsening. Does report less pain to the left leg. No acute events overnight. Exam Extrem Other: Bilateral lower extremity physical exam: Derm: Slightly less erythema edema and warmth noted to the right leg more so medially just above the ankle joint with desquamation of the skin and blistering with serous fluid no palpable abscess at this time no crepitus no fluctuance no proximal streaking or lymphangitis. Small healed fissure noted to the left heel medially with some scabbing however no PAUL fissure erythema noted at this time No drainage stable eschar right lower extremity normal color and warmth without any open lesions or ulcerations. Hyperkeratosis with fissuring noted to the right heel. Vascular: Pulses are nonpalpable secondary to edema to the left lower extremity, palpable to the right. Hair growth is decreased. MSK: Less tenderness to palpation noted to the left ankle medially just above the medial malleolus. Otherwise no pain on palpation prosper. Range of motion intact. Patient is able to move her left lower extremity without any issue. Neuro: Mentation intact Objective Last Vital Signs Temp 97.7 F 07/11/23 10:53 Pulse 95 H 07/11/23 10:53 Resp 17 07/11/23 10:53 BP 138/95 H 07/11/23 10:53 Pulse Ox 99 07/11/23 10:53 Laboratory Results - last 24 hr 07/11/23 07/11/23 10:26 10:26 WBC 15.91 H RBC 3.75 L Hgb 10.2 L Hct 30.4 L MCV 81 MCH 27.2 MCHC 33.6 RDW 15.9 H Plt Count 520 H MPV 9.0 Immature Gran % 4.7 Neutrophils % 63.2 Lymphocytes % 20.4 Monocytes % 8.8 Eosinophils % 2.5 Basophils % 0.4 Nucleated RBC % 0.0 Absolute Neutrophils 10.06 H Absolute Lymphocytes 3.25 Absolute Monocytes 1.40 H Absolute Eosinophils 0.40 Absolute Basophils 0.06 RBC Morphology Normal Sodium 138 Potassium 3.8 Chloride 100 Carbon Dioxide 32.4 H Anion Gap 5.6 BUN 13 Creatinine 0.8 Est GFR (CKD-EPI 2020) 88.05 Glucose 121 H Calcium 8.4 L Magnesium 1.9 C-Reactive Protein 11.21 H Cancelled Time Spent with Patient Time Spent with Patient: 35-49 minutes Time was spent: preparing to see the patient(eg.review tests), obtaining and/or reviewing separately otained hiistory, ordering medications,tests, procedures, referring, communicating with other health acute care clinical nurse specialist, indepentently interpreting results, counseling the patient and care coordination
--- NOTE | 2023-07-11 14:35 | PT.INTREAT ---
PT Notes Visit Reasons: cellulitis, sepsis Physical Therapy Inpatient Treatment Note Date: 07/11/2023 PRECAUTIONS: WBAT LLE SUBJECTIVE: Feeling much better. Looking at going home tomorrow if everything goes well. Feels much better and stable now with use of cane, agreeable to taking one home. OBJECTIVE: ? ERROL wrap to L foot. ?Minimal swelling in L foot and leg. ? PAIN: 1-05/12 with weight bearing VITALS: Closely monitored by nursing BED MOBILITY/TRANSFERS? Rolling L/R: independent Supine-sit: independent? Sit-supine: independent? Sit-stand: ?independent? Stand-sit: ?independent ? Bed-Chair:? independent? Chair-bed: independent GAIT? Assistive Device: ?SPC ? Weight bearing: WBAT LLE Assist: Supervision? Distance:??300 feet x 2 ? Deviation: ?Minimal cues for heel-toe gait pattern on L and with use of SPC on R ? STAIRS:? Minimal cues for safe limb sequence on 6 x 4-inch steps and 4 x 6-inch steps while holding onto rail and SPC, stand by assist only ? ASSESSMENT: Facilitated safe performance of level surface ambulation and stair negotiation to minimize pain and fatigue. Completed orthocare form and fitted single point cane for use by patient. PLAN: Continue with balance training, global strengthening and general conditioning for improved safety, mobility and activity tolerance until pt is ready for DC. TREATMENT CODE/TIME: 50235 x20 minutes for 1 unit (14:35-14:55).
[2023-07-11] MEDS: oxyCODONE 5 MG TAB PO (16:40)
[2023-07-11] MEDS: Melatonin 3 MG TAB 9 MG PO (19:37)
[2023-07-11] MEDS: Venlafaxine 37.5 MG CAPCR 75 MG PO (19:37)
[2023-07-12 03:01] VITALS: BP 134/88; PULSE 102; RESP 17; TEMP 36.6; O2SAT 96
[2023-07-12] MEDS: oxyCODONE 5 MG TAB PO ×3 (03:07→20:51)
[2023-07-12] MEDS: Ondansetron O.D.T. 4 MG TABEF PO (03:07)
[2023-07-12] MEDS: ceFAZolin 2 GM/50 ML BAG IVPB (05:28)
[2023-07-12 07:00] LABS: Absolute Basophil Count 0.09 10^3/uL (0.0-0.2); Absolute Eosinophil Count 0.45 10^3/uL (0.0-0.7); Absolute Lymphocyte Count 3.77 10^3/uL (1.2-3.4); Absolute Neutrophil Count 11.88 10^3/uL (1.2-6.7); Basophils % 0.5; Eosinophils % 2.5; HCT 30.4 % (36.0-46.0); HGB 10.1 g/dL (11.2-15.7); Immature Grans % 2.8; Lymphocytes % 20.8; MCH 26.9 pg (27.0-33.0); MCHC 33.2 % (32.0-36.0); MCV 81 fL (80-95); MPV 8.8 fL (8.0-11.0); Monocytes % 7.9; Neutrophils % 65.5; Platelet Count 569 10^3/uL (130-400); RBC 3.75 10^6/uL (3.93-5.22); RDW 15.8 % (11.7-14.6); RDW-SD 46.5 fL; WBC 18.13 10^3/uL (4.4-10.8)
[2023-07-12 07:07] LABS: Absolute Monocyte Count 1.43 10^3/uL (0.1-0.8)
[2023-07-12 07:21] LABS: C-Reactive Protein 8.62 mg/dL (<or=0.5)
[2023-07-12 07:44] LABS: Procalcitonin 0.2 ng/mL
[2023-07-12] MEDS: Pantoprazole 40 MG TABCR PO (07:49)
[2023-07-12 07:53] VITALS: BP 133/99; PULSE 88; RESP 16; TEMP 35.7; O2SAT 93
[2023-07-12] MEDS: Normal Saline Flush 10 ML SYR IVP (08:31)
[2023-07-12] MEDS: Lactobacillus Acidophilus CAP 1 CAP PO (08:32)
[2023-07-12] MEDS: Lisinopril 5 MG TAB PO ×2 (08:32→20:52)
[2023-07-12] MEDS: traMADol 50 MG TAB 100 MG PO (08:32)
[2023-07-12] MEDS: Sulfameth/Trimeth DS TAB 1 TAB PO ×2 (08:32→20:53)
[2023-07-12] MEDS: Potassium Chloride 20 MEQ TABCR PO (08:33)
[2023-07-12] MEDS: Cephalexin 500 MG CAP PO ×4 (08:33→20:52)
[2023-07-12] MEDS: buPROPion-XL 150 MG TABCR 300 MG PO (08:33)
[2023-07-12] MEDS: hydroCHLOROthiazide 25 MG TAB PO ×2 (08:33→15:58)
[2023-07-12] MEDS: Enoxaparin 40 MG/0.4 ML SYR SC (08:35)
--- NOTE | 2023-07-12 09:47 | PGE_ITS ---
Date of Service Date of service: 07/12/23 Time of Service: 09:30 Assessment and Plan Assessment and plan (1) Left leg swelling: Status: Acute (2) Severe sepsis: Status: Resolved (3) Septic shock: Status: Acute (4) Cellulitis: Status: Acute Qualifiers: Site of cellulitis: extremity Site of cellulitis of extremity: lower extremity Laterality: left Qualified Code(s): L03.116 - Cellulitis of left lower limb (5) CKD (chronic kidney disease) stage 2, GFR 60-89 ml/min: Status: Acute Assessment and plan: Patient was seen and evaluated today. Chart was reviewed. Labs and imaging reviewed. MRI negative for abscess at this time. Procalcitonin and CRP continue to downtrend however white count is uptrending. Clinically, the left lower extremity appears to be healing very well there is decreased erythema decreased edema, no worsening no crepitus no bogginess no fluctuance no Palpable abscess at this time. No surgical intervention planned or indicated at this time. Cultures positive for MSSA. I recommend continued antibiotics Dressings were changed with Xeroform gauze, 4 x 4, Kerlix, Sina wrap with 50% overlap. I recommend daily dressing changes with Xeroform gauze, 4 x 4, Kerlix, Coflex with 50% overlap. Patient is okay to be discharged from a podiatry standpoint. I recommend follow-up in office within 7 days of discharge. Subjective Subjective Interval history since last seen: Patient seen bedside today resting comfortably. Reports feeling weak. Does report pain to the left lower extremity however no worse than it was prior. Denies any new pedal complaints today. Exam Extrem Other: Bilateral lower extremity physical exam: Derm: Decreasing erythema edema and warmth noted to the left leg more so medially just above the ankle joint with desquamation of the skin and blistering with serous fluid no palpable abscess at this time no crepitus no fluctuance no proximal streaking or lymphangitis. Small healed fissure noted to the left heel medially with some scabbing however no PAUL fissure erythema noted at this time No drainage stable eschar left lower extremity normal color and warmth without any open lesions or ulcerations. Hyperkeratosis with fissuring noted to the right heel. Vascular: Pulses are nonpalpable secondary to edema to the left lower extremity, palpable to the right. Hair growth is decreased. MSK: Less tenderness to palpation noted to the left ankle medially just above the medial malleolus. Otherwise no pain on palpation prosper. Range of motion intact. Patient is able to move her left lower extremity without any issue. Neuro: Mentation intact Objective Last Vital Signs Temp 96.3 F L 07/12/23 07:53 Pulse 88 07/12/23 07:53 Resp 16 07/12/23 07:53 BP 133/99 H 07/12/23 07:53 Pulse Ox 93 07/12/23 07:53 Laboratory Results - last 24 hr 07/11/23 07/11/23 07/12/23 10:26 10:26 06:45 WBC 15.91 H 18.13 H RBC 3.75 L 3.75 L Hgb 10.2 L 10.1 L Hct 30.4 L 30.4 L MCV 81 81 MCH 27.2 26.9 L MCHC 33.6 33.2 RDW 15.9 H 15.8 H Plt Count 520 H 569 H MPV 9.0 8.8 Immature Gran % 4.7 2.8 Neutrophils % 63.2 65.5 Lymphocytes % 20.4 20.8 Monocytes % 8.8 7.9 Eosinophils % 2.5 2.5 Basophils % 0.4 0.5 Nucleated RBC % 0.0 0.0 Absolute Neutrophils 10.06 H 11.88 H Absolute Lymphocytes 3.25 3.77 H Absolute Monocytes 1.40 H 1.43 H Absolute Eosinophils 0.40 0.45 Absolute Basophils 0.06 0.09 RBC Morphology Normal Sodium 138 Potassium 3.8 Chloride 100 Carbon Dioxide 32.4 H Anion Gap 5.6 BUN 13 Creatinine 0.8 Est GFR (CKD-EPI 2020) 88.05 Glucose 121 H Calcium 8.4 L Magnesium 1.9 C-Reactive Protein 11.21 H Cancelled 8.62 H Procalcitonin 0.2 Time Spent with Patient Time Spent with Patient: 25-34 minutes Time was spent: preparing to see the patient(eg.review tests), obtaining and/or reviewing separately otained hiistory, referring, communicating with other health health care facilities inspector, indepentently interpreting results, counseling the patient and care coordination
[2023-07-12 10:18] LABS: Bilirubin Negative (Negative); Blood Negative (Negative); Clarity Clear (Clear); Glucose Negative (Negative); Ketones Negative (Negative); Leukocyte Esterase Negative (Negative); Nitrite Negative (Negative); Urobilinogen 0.2 mg/dL (Up to 0.2); pH 6.5 (5-8)
--- NOTE | 2023-07-12 12:08 | PGE_ITS ---
Date of Service Date of service: 07/12/23 Time of Service: 10:50 Assessment and Plan Assessment and plan (1) Septic shock: Status: Acute Assessment and plan: Patient presented on 07/03 w/ symptoms and signs of severe sepsis w/ rigors, fevers, leukocytosis, lactic acidosis, along w/ tachycardia and hypotension. She was found to have severe cellulitis of left leg. blood cultures from 07/02 and repeat ones from 07/07 have shown no growth. Superficial wound cultures taken from the blistered area of skin on her left calf grew MSSA. She was treated w/ vancomycin (07/02-07/07) and cefepime (07/02-07/07) and was switched to cefazolin 07/07 which she remains on. Patient has improved clinically (receding erythema, improved leg edema, improvement in her pain, and afebrile for 2 days; however, I am concerned over her rising WBC and I checked UA to be sure there was not some UTI. I think that given the timeline of the discontinuation of her vancomcyin and the subsequent rise in her WBC 24 h after stopping the vancomcyin, she must have some Staph that is resistant to the Keflex and therefore I have added Bactrim. Because she is on Effexor, I could not use Zyvox. There is some concern for possible developement of hypoglycemia w/ use of TMP/SMX however, she has a CGM and can monitor for this and she knows how to treat hypoglcyemia. The other alternative is for home iv antibiotics (Daptomycin or Vancomycin) or take her off her Effexor and put her on the Zyvox. In any case I think the TMP/SMX is the best alternative. I will watch her for 24 hours on oral antibiotics and be sure that she does not have a relapse. 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 she takes Acarbose for this to slow down her gastric emptying. She had a hypoglycemia spell and fever spike on Friday 07/07 in the afternoon the resulted in a rapid response. She recovered quickly after dextrose was given. She also reports that she had felt short of breath and there are reports that she was hypoxic but I could not find any recordings of low oxygen saturations and she quickly recovered once her glucose was treated. continue to monitor her glucose AC/HS. Subjective Subjective Interval history since last seen: Monisha says that her left leg pain is improving. Better when resting and elevating her leg but more sore after ambulation. I told her that she has been afebrile since 2 days ago, however, I am concerned that her WBC continue to climb to 18,000 and do not feel comfortable releasing her until we see this decline. I explained to her that I reviewed the time course of her leukocytosis from admission through today. She had resolution of her leukocytosis on 07/06 and 07/07 but her vancomycin was stopped on 07/07 and ever since then her WBC have steadily climbed from 9700 to curreent level of 18,000. I think that despite her being on appropriate antibiotics for her superficial wound culture of MSSA (she had been on cefepime and vancomycin then was put on cefazolin, nevertheless she had persistent fevers until yesterday and her leukocytosis had progressed. I told her that I will put her on double coverage w/ Keflex and Bactrim DS. Her MRSA screen was negative. However we can not be certain as to what the actual organsism is within the tissue. All we know is that there is no abscess or fasciitis and no osteomyelitis, just persistent cellulits. Exam Narrative Exam Narrative: Her left leg had already been dressed and compression bandage had been applied by Dr. Cox so I did not undress her leg Left foot is warm but not hot, it is dry, pedal good capillary refill in the toes, left thigh is nontender to palpation and no erythema above the knee, the area that I can see of the lower leg does not exhibit redness (I think any erythema must be below the bandage); no calf tenderness w/ palpation Objective Last Vital Signs Temp 35.7 C L 07/12/23 07:53 Pulse 88 07/12/23 07:53 Resp 16 07/12/23 07:53 BP 133/99 H 07/12/23 07:53 Pulse Ox 93 07/12/23 07:53 Laboratory Results - last 24 hr 07/12/23 07/12/23 06:45 10:00 WBC 18.13 H RBC 3.75 L Hgb 10.1 L Hct 30.4 L MCV 81 MCH 26.9 L MCHC 33.2 RDW 15.8 H Plt Count 569 H MPV 8.8 Immature Gran % 2.8 Neutrophils % 65.5 Lymphocytes % 20.8 Monocytes % 7.9 Eosinophils % 2.5 Basophils % 0.5 Nucleated RBC % 0.0 Absolute Neutrophils 11.88 H Absolute Lymphocytes 3.77 H Absolute Monocytes 1.43 H Absolute Eosinophils 0.45 Absolute Basophils 0.09 C-Reactive Protein 8.62 H Procalcitonin 0.2 Urine Color Yellow Urine Clarity Clear Urine pH 6.5 Ur Specific Nicholls 1.020 Urine Protein Negative Urine Ketones Negative Urine Blood Negative Urine Nitrite Negative Urine Bilirubin Negative Urine Urobilinogen 0.2 Ur Leukocyte Esterase Negative Urine Glucose Negative Time Spent with Patient Time Spent with Patient: 35-49 minutes Time was spent: preparing to see the patient(eg.review tests), ordering medications,tests, procedures, referring, communicating with other health veterinarian laboratory animal care (Dr. Cox), indepentently interpreting results, counseling the patient and care coordination
[2023-07-12] MEDS: Pramipexole 0.25 MG TAB PO ×2 (12:16→20:52)
[2023-07-12] MEDS: Gabapentin 800 MG TAB PO ×2 (12:16→20:52)
--- NOTE | 2023-07-12 13:21 | PDOC.CMPRO ---
Date of service: 07/12/23 Time of Service: 13:21 Care Management Progress Note Progress Note Text Progress Note Text: S/O: Monisha was lying in bed when CM met with her. Her labs are being closely monitored and she transitioned to PO ABX yesterday as planned. Per Hospitalist, her WBC is trending up and will need to trend down before she is discharge ready. Monisha met with podiatry today and observed her LL Leg dressing change. She does not feel confident managing dressing changes on her own and would like [facility] RN for wound care. Dr. Owens is in the process of completing her Human Resource paperwork. A: Monisha was admitted 07/03/23 with cellulitis, sepsis P: Per provider, with continued stabilization medically, Monisha may be able to return home on oral antibiotics; anticipate close monitoring over the next 48 hours. Podiatry consult pending, anticipate Monisha will have wound care orders for her heel, and reports she is learning how to do current dressing changes. CM continues to follow. SDOH(Care Management) Screening Will the Patient Participate in the Screening?: Yes Do you worry about having a steady place to live?: no Problems where you live: no known problems In the past 12 months, have you had to go without electric, gas, oil or water in your home?: no Have you or anyone in your house had to go without enough food to eat?: no Has lack of transportation kept you from medical appointments or from doing things needed for daily living?: no Has anyone in your support network made you feel unsafe for any reason?: no
[2023-07-12 15:01] VITALS: BP 126/89; PULSE 89; RESP 16; TEMP 37; O2SAT 99
[2023-07-12 19:30] VITALS: BP 124/90; PULSE 90; RESP 16; TEMP 36.5; O2SAT 95
[2023-07-12] MEDS: Venlafaxine 37.5 MG CAPCR 75 MG PO (20:51)
[2023-07-12] MEDS: Melatonin 3 MG TAB 9 MG PO (20:52)
[2023-07-12 23:14] VITALS: BP 114/74; PULSE 79; RESP 16; TEMP 36; O2SAT 94
[2023-07-13 04:08] VITALS: BP 126/83; PULSE 86; RESP 16; TEMP 36.5; O2SAT 95
[2023-07-13] MEDS: traMADol 50 MG TAB 100 MG PO ×2 (06:07→12:51)
[2023-07-13 06:50] LABS: Abs Immature Grans 0.28 10^3/uL (0.0-0.06); Absolute Basophil Count 0.08 10^3/uL (0.0-0.2); Absolute Lymphocyte Count 3.98 10^3/uL (1.2-3.4); Absolute Monocyte Count 1.27 10^3/uL (0.1-0.8); Absolute Neutrophil Count 9.42 10^3/uL (1.2-6.7); Basophils % 0.5; Eosinophils % 2.7; HCT 31.6 % (36.0-46.0); HGB 10.6 g/dL (11.2-15.7); Immature Grans % 1.8; Lymphocytes % 25.8; MCH 27.4 pg (27.0-33.0); MCHC 33.5 % (32.0-36.0); MCV 82 fL (80-95); MPV 9.2 fL (8.0-11.0); Monocytes % 8.2; RBC 3.87 10^6/uL (3.93-5.22); RDW-SD 47.6 fL; WBC 15.44 10^3/uL (4.4-10.8)
[2023-07-13 07:08] LABS: Absolute Eosinophil Count 0.42 10^3/uL (0.0-0.7)
[2023-07-13 07:12] LABS: Diff Comment Diff Reviewed; Platelet Count 682 10^3/uL (130-400); RBC Morphology Normal
[2023-07-13 07:13] LABS: Anion Gap 7.2 mmol/L (3-11); BUN 13 mg/dL (7-18); C-Reactive Protein 5.37 mg/dL (<or=0.5); CO2 30.8 mmol/L (21.0-32.0); CREATININE 0.9 mg/dL (0.55-1.02); Chloride 99 mmol/L (98-107); Estimated GFR 76.44 (mL/min/1.73m2); Glucose 104 mg/dL (74-106); Sodium 137 mmol/L (136-145)
[2023-07-13 07:32] VITALS: BP 128/95; PULSE 88; RESP 16; TEMP 36.2; O2SAT 98
[2023-07-13] MEDS: Pantoprazole 40 MG TABCR PO (08:02)
[2023-07-13] MEDS: Normal Saline Flush 10 ML SYR IVP (09:01)
[2023-07-13] MEDS: oxyCODONE 5 MG TAB PO (09:02)
[2023-07-13] MEDS: buPROPion-XL 150 MG TABCR 300 MG PO (09:02)
[2023-07-13] MEDS: Cephalexin 500 MG CAP PO ×2 (09:03→12:40)
[2023-07-13] MEDS: hydroCHLOROthiazide 25 MG TAB PO (09:03)
[2023-07-13] MEDS: Lactobacillus Acidophilus CAP 1 CAP PO (09:03)
[2023-07-13] MEDS: Lisinopril 5 MG TAB PO (09:03)
[2023-07-13] MEDS: Enoxaparin 40 MG/0.4 ML SYR SC (09:03)
[2023-07-13] MEDS: Potassium Chloride 20 MEQ TABCR PO (09:03)
[2023-07-13] MEDS: Sulfameth/Trimeth DS TAB 1 TAB PO (10:10)
--- NOTE | 2023-07-13 11:26 | PDOC.CMDIS ---
Date of service: 07/13/23 Time of Service: 11:26 LACE Index Scoring Tool Questions: Length of Stay (in days): 7 - 13 Was the patient admitted via the E.D.?: Yes Comorbidities: Liver or Renal Disease E.D. Visits: 0 Answers: Total Score: 13 Risk of Readmission: High Risk Care Management Discharge Plan Reason for Hospitalization: Cellulitis, Sepsis Discharge Plan: Monisha will return home with new orders for HH RN and PT. Her , Jayne will drive her home via private vehicle. She will follow up with her PCP and discharge plan of care. CM will continue to follow. Patient/Family Education Needs: Review discharge instructions and limitations, discussion of self care needs including ask me three. Services Needed at Discharge: Home Health Care Services (HH RN, PT) SDOH Health Related Social Needs: No Data to Display
--- NOTE | 2023-07-13 12:01 | W.PM.DS.N ---
Date of service: 07/13/23 Time of Service: 12:01 DS: Diagnosis Discharge Diagnosis (1) Severe sepsis: Status: Resolved (2) Cellulitis: Status: Acute (3) CKD (chronic kidney disease) stage 2, GFR 60-89 ml/min: Status: Acute (4) Postprandial hypoglycemia: Status: Acute (5) HANH (acute kidney injury): Status: Resolved (6) Hypomagnesemia: Status: Resolved (7) Prolonged QT interval: Status: Resolved (8) Hypoglycemia: Status: Acute Discharge Plan Disposition Patient Disposition: Home W/Home Health Services Condition: Improving Discharge Details Reason For Visit: cellulitis, sepsis Admit Date/Time: 07/03/23 22:19 Admit Provider: Blaine Beckman Attending Provider: Blaine Beckman Primary Care Provider: Huyen Ramon [facility] Hospital Course: 52 yr old female w/ PMH of DMII, in remission s/p bariatric surgery complicated by dumping syndrome w/ post prandial hypoglycemic spells controlled w/ Acarbose who was in her usual state of stable health when 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 Her admitting symptoms were preceded by 3 days of localized erythema of her left ankle and pain in her left heel. She has a chronic calluses of her 1st MTP joints w/ bunion and heel calluses and has chronic split in the skin over left heel. Severe sepsis manifestations iwere documented on her arrival included hypotension (75/53- 86/62), tachycardia, tachypnea but not hypoxic w/ HANH (creatinine 1.4, baseline 0.9), elevated lactate 3.4, low K 3.0 and low Mg 1.5 and leukocytosis 20,000. She was resuscitated w/ about 2700 mL of iv fluids and did not require vasopressors (thus not truly septic shock), blood cultures and wound culture were obtained and fluid from her left heel. Patient was begun on Vancomcyin and cefepime. Blood culture from 07/02 eventually returned negative. Wound culture grew MSSA Staph aureus. Daily labs including CBC, BMP and CRP were monitored. Pain and erythema slowly subsided but not before it had progressed up the left medial thigh.WBC gradually decreased until they normalized on 07/06 and 07/07. MRSA nares screen was obtained and came back negative. Vancomcyin was stopped on 07/07 and beginning 07/08 her leukocytosis began to rise to 13,000 and peaking to 18,000 on 07/11. During this time her cefepime was changed to ancef on 07/07. Although her pain and erythema continued to improve, she had fevers multiple times a day from 07/08 until 07/10. CT and MRI of the left leg was done and failed to show any abscess or fascitis. Repeat venous duplex was performed and failed to show any DVT. Dr. Cox was consulted from podiatry and she performed compression dressings that improved her leg edema. Pain was treated w/ ketorolac and tylenol but as we were eager to see if she was responding to the antibioitics appropriately we witheld antipyretics beginning 07/10.She remained afebrile. However her WBC continued to climb while her CRP was improved (although not normal at 8.6 (down from high of >25), however Bactrim DS one po bid was initiated on 07/12/23 and her WBC dropped overnight to 15,000 from 18,000 and CRP dropped to 5.3. her erythema regressed even further down the lower tibia with resolution of erythema in her thigh. Pain was improved and as she was continuing to improve on oral antibiotics w/ no fever spikes, she was deemed medically stable to return home to complete another week of combo of Bactrim DS and Keflex 500 mg QID which had been initiated the day before her discharge. She worked w/ [employer] and home P[employer] was recommended. Home health services including nursing and P.T. were ordered (see home health face to face worksheet). Follow up to be w/ Dr Moreno and Dr. Cox next week. Dressing changes to be done by visiting nurse and Dr. Cox. Home Meds and New Rx's Prescriptions: New sulfamethoxazole-trimethoprim [Bactrim DS] 800-160 mg tablet 1 tab PO BID Qty: 14 0RF cephalexin 500 mg capsule 500 mg PO QID 7 Days Qty: 28 0RF tramadol 100 mg tablet 100 mg PO TID PRNQty: 21 0RF Bio-K plus 50 billion cell capsule,delayed release(DR/EC) 1 cap PO DAILY Qty: 10 0RF Continued glucagon 3 mg/actuation spray,non-aerosol 3 mg intranasal ONCE Qty: 1 3RF Rx Instructions: as a single dose (DME) Scalp Hair Prosthesis See Rx Instructions .Route .MEDSUPPLY Qty: 1 1RF Rx Instructions: Wear as recommendended (DME) Hair Prosthesis See Rx Instructions .Route .MEDSUPPLY Qty: 1 1RF Rx Instructions: As fitted/recommended for daily wear lisinopril 5 mg tablet 5 mg PO BID Qty: 180 3RF Rx Instructions: Re-starting, trial daily x 1 week (DME) hair prosthesis See Rx Instructions .Route .MEDSUPPLY Qty: 1 1RF Rx Instructions: hair prosthesis for alopecia areata of scalp bariatric fusion chewable complete 2 tab tablet 2 100 ml PO DAILY (DME) Blood Glucose Test Strip See Rx Instructions .ROUTE .MEDSUPPLY Qty: 100 3RF Rx Instructions: As directed to check blood glucose daily. No insulin. Dispense covered brand. (DME) glucometer See Rx Instructions .Route .MEDSUPPLY Qty: 1 0RF Rx Instructions: As directed to manage, prevent hypoglycemic episodes (DME) lancets [Comfort Lancets] Misc See Rx Instructions .ROUTE .MEDSUPPLY Qty: 100 1RF Rx Instructions: As directed to check blood glucose daily. No insulin. Dispense covered brand. (DME) Blood Glucose Test Strip See Rx Instructions .ROUTE .MEDSUPPLY Qty: 350 3RF Rx Instructions: As directed to check blood glucose QID. No insulin. Dispense covered brand. acarbose 25 mg tablet 25 mg PO TID (DME) Dexcom G7 Sensor Device See Rx Instructions .Route Qty: 9 3RF Rx Instructions: As directed to check blood glucose. (DME) Dexcom G7 Sas Clinical Programmer Misc See Rx Instructions .ROUTE .MEDSUPPLY Qty: 1 0RF Rx Instructions: As directed to check blood glucose. bupropion HCl [Wellbutrin XL] 300 mg tablet extended release 24 hr 300 mg PO DAILY Qty: 90 3RF ondansetron HCl 4 mg tablet 4 mg PO Q8H PRN (Reason: nausea and vomiting) Qty: 20 3RF Rx Instructions: Use carefully (Yearly EKG 2' QT/QTc warning) potassium chloride 20 mEq tablet extended release 20 meq PO PRN PRN (Reason: hypokalemia) Qty: 30 2RF Rx Instructions: taking prn per lab test cgc pramipexole 0.25 mg tablet 0.25 mg PO BID Qty: 180 3RF Rx Instructions: Take at lunch time and 1 hour prior to bedtime venlafaxine [Effexor XR] 37.5 mg capsule,extended release 24hr 75 mg PO DAILY Qty: 180 3RF (DME) FreeStyle Christopher 2 Sensor Kit See Rx Instructions .ROUTE .MEDSUPPLY Qty: 1 0RF Rx Instructions: As directed (DME) FreeStyle Christopher 2 [place] Misc See Rx Instructions .ROUTE .MEDSUPPLY Qty: 1 0RF Rx Instructions: As directed hydrochlorothiazide 25 mg tablet 25 mg PO BID PRN (Reason: edema) Qty: 180 3RF Rx Instructions: PRN omeprazole 40 mg capsule,delayed release(DR/EC) 40 mg PO DAILY Qty: 90 3RF amiloride 5 mg tablet 5 mg PO BID Qty: 180 3RF Hold Instructions: until endocrine eval. Rx Instructions: Continue per Endocrine (07/2022+) (DME) Dexcom G7 Sensor Device See Rx Instructions .Route Qty: 1 0RF Rx Instructions: As directed ([facility]) Dexcom G7 Sas Clinical Programmer Misc See Rx Instructions .Route Qty: 1 0RF Rx Instructions: As directed gabapentin 800 mg tablet 800 mg PO BID Qty: 180 3RF Rx Instructions: Take at noon and 1 hour prior to bedtime for RLS Discharge Instructions Instructions: Cellulitis (DC) Stand Alone Forms: Nursing Discharge Form Referrals: Huyen Ramon DO [Primary Care Provider] - 07/20/23 9:45 am Katt Cox DPM [[facility] STAFF PHYSICIAN] - (please call on Sunday to make an appointment for one week please! Their office is unfortunately closed on Fridays ) Activity:: elevate left leg often Equipment/Supplies:: No Equipment Needed Diet:: Carb Counting Discharge Orders Discharge Orders: Discharge Order (Routine); Ordered 07/13/23 Ordered By: Harjeet Owens Other Ambulatory Orders: Basic Metabolic Panel (Routine) Timeframe: 1 Week Facility: [facility] - Location: Laboratory Outpatient - [facility] Ordered By: Harjeet Owens Complete Blood Count w/Diff (Routine) Timeframe: 1 Week Facility: [facility] - Location: Laboratory Outpatient - [facility] Ordered By: Harjeet Owens C-Reactive Protein (Routine) Timeframe: 1 Week Facility: [facility] - Location: Laboratory Outpatient - [facility] Ordered By: Harjeet Owens Discharge Data Discharge Date/Time-TO BE ENTERED AT DEPARTURE: 07/13/23 13:34 DS: Summary Time Spent with Patient providing and/or coordinating discharge services: Greater than 30 minutes Specific discharge activities: Interview/exam of patient; review of discharge instructions, completion of prescriptions/discharge instructions; discussion w/ nursing and CM; documentation of hospital visit Status at Discharge Functional status at discharge: uses cane/walker Overall status at discharge: patient is progressing back to baseline Mental Status: mental status grossly normal Speech and Movement: speech and movement normal Mood: congruent mood Affect: normal affect Quality:SDOH Health Related Social Needs: No Data to Display Exam Narrative Exam Narrative: Monisha is lying in bed she says she feels much better today left leg pain is markedly improved and edema has gone down since Dr. Aragon started applying compression wraps. Left leg there is no erythema or induration of her thigh and the erythema has receded well below the mid tibia level. Toes are warm and dry with good capillary refill there is no pain with palpation of her calf or her thigh. Psych Mental Status: mental status grossly normal Speech and Movement: speech and movement normal Mood: congruent mood Affect: normal affect DS: Data Vitals/I&O Vitals and I&O: Vital Signs Temperature 36.2 C L 07/13/23 07:32 Temperature Source Tympanic 07/13/23 07:32 Pulse 88 07/13/23 07:32 Pulse Rhythm Regular 07/13/23 08:00 Pulse 103 H 07/03/23 22:50 Respiratory Rate 16 07/13/23 07:32 Respiratory Effort Normal, Non-Labored 07/13/23 08:00 Respiratory Depth Normal 07/13/23 08:00 Respiratory Pattern Normal 07/13/23 08:00 Blood Pressure 128/95 H 07/13/23 07:32 Blood Pressure Mean 82 07/03/23 22:46 Blood Pressure Position Sitting 07/03/23 19:10 Pulse Oximetry 98 07/13/23 07:32 Oxygen Delivery Method Room Air 04/12/24 07:32 Oxygen Flow Rate 0 07/13/23 07:32 Pain Level 0 07/13/23 07:32 Comment Nurse in room.\ 07/10/23 14:36 Intake & Output 07/12/23 07/13/23 07/13/23 23:59 11:59 23:59 Output Total 900 / 2000 400 / 400 Balance -900 / -2000 -400 / -400 Output: Urine 900 / 2000 400 / 400 Other: Urine Color Yellow Yellow Urine Appearance Clear Clear Urine Odor Normal Voiding Methods Toilet Toilet Data Completed and Pending Labs on day of discharge: Labs from last 24 hours 07/13/23 06:24 WBC 15.44 H RBC 3.87 L Hgb 10.6 L Hct 31.6 L MCV 82 MCH 27.4 MCHC 33.5 RDW 16.0 H Plt Count 682 H MPV 9.2 Immature Gran % 1.8 Neutrophils % 61.0 Lymphocytes % 25.8 Monocytes % 8.2 Eosinophils % 2.7 Basophils % 0.5 Nucleated RBC % 0.0 Absolute Neutrophils 9.42 H Absolute Lymphocytes 3.98 H Absolute Monocytes 1.27 H Absolute Eosinophils 0.42 Absolute Basophils 0.08 RBC Morphology Normal Sodium 137 Potassium 4.0 Chloride 99 Carbon Dioxide 30.8 Anion Gap 7.2 BUN 13 Creatinine 0.9 Est GFR (CKD-EPI 2020) 76.44 Glucose 104 Calcium 9.0 C-Reactive Protein 5.37 H Preliminary micro results at discharge 07/08/23 21:15 Blood Culture - Preliminary Blood NO GROWTH 96 HOURS 07/08/23 18:30 Blood Culture - Preliminary Blood NO GROWTH 96 HOURS PFSH All Active Problems (Updated 07/13/23 @ 20:57 by Harjeet Owens MD) DVT prophylaxis (Acute) Left leg swelling (Acute) Acute hypokalemia (Acute) Cellulitis (Acute) Arthritis of left glenohumeral joint (Acute) Menopausal symptoms (Acute) CKD (chronic kidney disease) stage 2, GFR 60-89 ml/min (Acute) New baseline?! Hx of hysterectomy for benign disease (Acute) benign, but painful/severe Ill feeling (Acute) Recent episodes of somnolence, off-balance & spells of being out of my body. Possibly psych rxn (2' anx, grief, milestones) .. but monitoring. Hypertension (Chronic) Hx HTN .. with med d/c post bariatric surg wt loss.. some elevated BPs, 05/2022, re-start low-dose lisinopril. LVH (left ventricular hypertrophy) (Acute) Newly noted, although Hx left axis dev (-90, -30) .. Hx HTN, Flash Pulm Edema (2019), obesity, s/p bariatric surgery. DUB (dysfunctional uterine bleeding) (Acute) Cont'd .. with 17 week sized uterus per pt rpt, 09/01/22 .. [ ] [facility] Surgery planned next Hypoglycemia (Acute) Hx BG < 35 per CGM Acute hypokalemia (Acute) Disorder of iron metabolism (Acute) Per 03/22/22 [facility] Gen surgery note Elevated PTHrP level (Acute) Per 03/22/22 [facility] Gen surgery note Hyperparathyroidism (Acute) Postprandial hypoglycemia (Acute) PP Hyperinsulinemic hypogly Dx per [facility] Endo (Echt). 04/2022. per observation and tel d/w Dr. Ortega (future Endo, [facility]).. vs exercise-induced Status post bariatric surgery (Acute) Successful weight loss, but dangerous, symptomatic HYPOglycemia [neg dumping syndrome per [facility]] Skin lesion (Acute) Mild wound, 2' probable abd intertrigo. Facial twitching (Acute) Nodule of left lung (Acute) 3mm, incidental finding, LLL (12/2020 CT). [ ] 6 mo FU.. Paresthesias (Acute) Hypotension (Acute) post gastric bypass ... lowering ACEi, BB, CCB. DIuretics in place 2' LE edema (albeit improved). Depressive disorder (Chronic 05/23/11) Wellbutrin 2012, discon 12/2012, restart 05/2013 Hx of Marylou thyroiditis (Acute) Imbalance (Acute) Cervical radiculopathy (Acute) Hematuria (Acute) Fatty liver (Acute) 10/02/18 Dr Schroeder/[facility] Migraine headache with aura (Chronic) DR. VALDEZ 08/29/11 Livestation Vertigo and/or pain Uterine leiomyoma (Chronic 11/02/15) On pelvic ultrasound uterus enlarged approximate 13 cm. 08/04/2021 pelvic pain radiating from back. Serrated adenoma of colon (Acute 07/07/15) Dr. Contreras, sessile colonic polyp, inflammatory polyp Sensorineural hearing loss, bilateral (Chronic 11/01/17) Restless leg (Acute 03/31/15) Some relief with iron infusion (albeit reaction to infusion), 05/2018. 06/16/19 f/u at sleep clinic Reflux esophagitis (Acute 07/07/15) Dr. Contreras gastritis Premenstrual dysphoric disorder (Acute 11/10/14) Gabriel Henderson MD [facility] Positive TG (antinuclear antibody) (Acute 06/07/15) Mgrn wo aura wo ntrc mgr (Acute 09/05/11) DR. VALDEZ 08/29/11 Livestation Vertigo and/or pain Incomplete tear of left rotator cuff (Acute 05/31/16) Alopecia areata (Acute 05/23/11) Dx'ed 1990s Hair prosthesis Medical History Scab of knee fell last week, rough/dry scab, but irritated .. Trial debride @ home, consider surgtery if tender. Diarrhea (10/29/15) Chronic, secretory .. s/p multiple [place], Bx. Trial cholestyramine, 10/2018, ik planned. Pre-op evaluation Hysterectomy planned, told she would need [facility] due to Hx and anatomy History of endometrial biopsy (~05/26/22) [facility] Machine Tracer, 05/26/22 Post-resection malabsorption Per 03/22/22 [facility] Gen surgery note Heel lesion Right heel, cracked skin .. inner foot tenderness .. out of proportion tenderness .. possible assoc with fever? (improved with soaking, but not closing) Fever Over 1 week; T 103/102/99; Neg COVID; Awaiting Flu SARS-CoV-2 positive (~10/26/21) Dysmenorrhea Pike exposure Dtr (+) .. Sore Throat, lab [ ] Dumping syndrome (04/12/21) NOT per Bariatric Team.. Dx per [facility] Endo .. [facility] Bariatric Team re-eval as NEG for dumping syndrome, 05/2021 Class 3 severe obesity due to excess calories with body mass index (BMI) of 40.0 to 44.9 in adult 07/31/19 [facility] Complicated grieving Her basically healthy mo due to COVID19 infection. She was intubated within days of becoming sick, sending out a cheerful text 4 days beforehand! Monisha has cancelled the trip just before flights, etc were shut down; she was originally worried for her fa 2' health issues and dementia. Close-knit family; inability for gathering for .. video/webexed with family in [place] (mo in Fl). Diabetes mellitus type 2 in obese Improved s/p bariatric surgery and wt loss BUT HYPOglycemia Encounter for insertion of venous access port on HOLD since K improvement 05/2019 Dehydration Preeclampsia Flash pulmonary edema Lymphedema referring to PT for evaluation and recommendations.. Bunion 12/24/18-nelson Yarbrough DPM Abnormal serum creatinine level (07/2018) Serious Creatinine elevation, with resolution between episodes of dehydration .. Sustained VT (ventricular tachycardia) during hypokalemia episode Angioedema 10/02/18 Dr Schroeder/[facility] Flushing 10/02/18 Dr Schroeder/[facility] Out of work (08/21/18) Recommend continuation of reduced hours due to continued electrolyte imbalances, fatigue and metabolic disorder. Unclear etiology makes it difficult to create a clear treatment plan, which in turn, makes routine and FT work difficult to manage. Revised [employer] Ppwk (06/2019). Solid, intermittent improvements, but unpredictable. 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 10/30/18, mian. I support time off from work due to continued electrolyte imbalances which cannot be explained. Re-referring to specialists @ [facility] as well as [facility]. Elevated plasma metanephrines (08/2018) Ordered by Endo, CT (Abd) [ ] ... follow up with Endo week of October 07. 08/2018, mian Kidney stone (02/27/12) Rectal hemorrhage (03/02/15) Dehydration (~08/21/18) Several episodes now .. She can almost gauge her K levels based on mm weakness. [ ] BMP [ ] IVF-KCl Bolus-K have helped with hypokalemia in between bouts of diarrhea/dehydration when IVF not needed. 09/2018, mian Rectal bleeding (03/02/15) Episodic - Was diagnosed with AVM's Mgrn w aura w intrc mgrn (09/05/11) DR. VALDEZ 08/29/11 Livestation Vertigo and/or pain Impaired fasting glucose (02/11/14) A1C 6.1% 12/2012 .. A1C 5.8 07/04/18. Hypokalemia (11/07/16) Chronic, possible 2' IBS/Diarrhea. Continued despite GI improvements, albeit improved. Trial Eplerenone, to be followed by HCTZ decrease. 10/09/18 Intermittent improvement, but unsteady and unpredictable .. Monisha seems unable to maintain her own K levels WNL w/o bolus/infusions at this time. Unable to tolerate K-sparing diuretics. Cont to research, evaluate, consult .. 09/2018, ik Essential hypertension (12/05/12) Elevated BPs, especially DBP. Hx high BP since of twins (20yrs), noted in Nephro note (2016). HCTZ used x years for HTN & Edema. Spirono not tolerated (Hives/Flush). Trial Eplerenone, 10/09/18, ik Unable to tolerate eplerenone, angioedema-like reactions to K-sparing diuretics.. 09/2018, ik Irritable bowel syndrome diarrhea predominant Alopecia Hx of adenomatous colonic polyps GERD (gastroesophageal reflux disease) Marylou's thyroiditis Depression Anemia Reflux esophagitis Surgical History S/P laparoscopic hysterectomy (~12/2022) Extensive lysis of adhesions, bilateral salpingectomy and cystoscopy, repair of vaginal lacerations for chronic pelvic pain and fibroid uterus. History of Nadia-en-Y gastric bypass (~11/2019) H/O colonoscopy (12/05/17) History of esophagogastroduodenoscopy (EGD) (12/05/17) Tonsillectomy section x3 Endometrial Ablation 2007 2012 EGD - MAC 2016 Colonoscopy - MAC (03/16/14) w/ bx 2016-serrated adenomatous polyp Most recent 12/05/2017 Family History Mother Pulmonary hypertension Heart disease valve replacement Father Prostate cancer Essential hypertension Parkinsons Sister Uterine cancer Brother Heart disease Father Hypertension Mother Heart disease Maternal Grandfather Diabetes Sister Age: 59 Cancer Other Colon cancer Social History Smoking/Tobacco Use Status: Never Smoking risk assessment performed?: Yes Alcohol Intake: current Alcohol Intake frequency: holidays/special occasions only Alcohol type: wine Drug use: Never Substance use type: does not use Adopted: No Caregiver/Support person: No Household members: spouse and other Details: Partner - Jayne, children Housing: house Number of Children: 4 number of grandchildren: 0 Communication Needs: Corrective Lenses Education Level: college current occupation: Daily today tested negative on this on the testing day negative negative di Pets and animals: Yes Pets and animals: cat(s) and dog(s) Sexually active: Yes Do you think of yourself as: lesbian/peña/homosexual Current gender identity: female What is your relationship status?: living with partner Panel score (0-1 are the most socially isolated patients): 1 What type of physical activity do you participate in: walking Duration: 15-30 minutes/day Frequency: 3-4 times per week Seatbelt use: always Working smoke detector in home: Yes Fire extinguisher in home: Yes Carbon monox detector in home: Yes Firearms in home: No Do you feel safe at home: Yes Do you feel safe in your relationship?: Yes Additional Social history: Lives in [place] with Jayne and their 2 18 yo girls, 4 older kids out of home. Runs [employer] at [facility] [employer]. Female Reproductive History Menstrual control method: permanent sterilization History History 3 Para 4 Hx # Term Pregnancies Multiple births 1 Hx # Pregnancies Ectopic pregnancies AB induced Hx Number of Living Children AB spontaneous Time Spent with Patient Time Spent with Patient: <45 minutes Time was spent: preparing to see the patient(eg.review tests), ordering medications,tests, procedures, referring, communicating with other health patient care specialist, indepentently interpreting results, counseling the patient and care coordination
--- NOTE | 2023-07-13 12:24 | PDOC.HHF2F ---
Home Health Referral Home Health Orders Clinical synopsis of why skilled professionals are needed: Patient is weak and deconditioned due to recent cellulitis of her left leg. She needs nursing to oversee her medication changes and to monitor improvement in her infection and to coordinate dressing changes w/ Dr. Cox, podiatry and Dr. Moreno Medical diagnosis necessitation home health referral: Cellulitis left leg Registered Nurse: Check all that apply Instruct on new or changed medication(s)/assess compliance: Ordered Assess wound for signs and symptoms of infection, instruct on wound care and/or provide skilled wound care consisting of: monitor left leg wound and perform dressing changes as per Dr. Cox's instructions Physical Therapist: Check all that apply Increase strength & endurance for safe mobility at home: Ordered To design/establish home maintenance program: Ordered Home safety evaluation and teaching/gait training including stair management (if applicable): Ordered Home Bound Status Requires the aid of supportive device (check all that apply): Walker Patient has a condition such that leaving home is medically contraindicated (Describe): patient has significant left leg swelling limiting mobility and trips outside of her home increase risk of worsening edema and infection Describe why leaving home would require a considerable and taxing effort: Requires frequent rest periods Encounter Date and Reason: I certify that a FTF encounter for this patient was performed on July 13, 2023 and that such encounter was related to the primary reason the patient requires home health services. The encounter was conducted in the following manner: By me as the certifying physician, ANESTHESIA TECH, PA or By an inpatient physician, ANESTHESIA TECH or PA during an inpatient stay who communicated findings to me, Certification And Authentication I certify that I composed the above information based on my clinical judgment relating to this patient's medical condition and, if applicable, clinical findings communicated to me by the NPP or inpatient physician who performed the FTF encounter. Name of Provider that will be monitoring home health services: Huyen Ramon
[2023-07-13] MEDS: Gabapentin 800 MG TAB PO (12:40)
[2023-07-13] MEDS: Pramipexole 0.25 MG TAB PO (12:40)
[2023-07-14 14:46] LABS: Anaplasma phagocytophilum Negative (Negative); B. miyamotoi PCR Negative (Negative); Babesia divergens/MO-1 Negative (Negative); Babesia duncani Negative (Negative); Babesia microti Negative (Negative); Ehrlichia chaffeensis Negative (Negative); Ehrlichia ewingii/canis Negative (Negative); Ehrlichia muris eauclairensis Negative (Negative)
== END 2023-07-13 13:34 | disposition home health service (06) | DRG 871 ==
LOC: ER 22:45 → MS 23:21
PROVIDERS: Internal Medicine; Nurse Practitioner Acute Care; Admitting Provider Family Medicine; Emergency Provider Physician Assistant; PCP Student in an Organized Health Care Education/Training Program; Visit Provider Family Medicine
DX: A41.9 Sepsis, unspecified organism (principal); R65.21 Severe sepsis with septic shock; N17.9 Acute kidney failure, unspecified; L03.116 Cellulitis of left lower limb; E83.42 Hypomagnesemia; R94.31 Abnormal electrocardiogram [ECG] [EKG]; E87.6 Hypokalemia; I12.9 Hypertensive chronic kidney disease with stage 1 through stage 4 chronic kidney disease, or unspecified chronic kidney disease; N18.2 Chronic kidney disease, stage 2 (mild); E16.2 Hypoglycemia, unspecified; K91.1 Postgastric surgery syndromes; Z98.84 Bariatric surgery status; G25.81 Restless legs syndrome; F32.A Depression, unspecified; G43.109 Migraine with aura, not intractable, without status migrainosus; K21.00 Gastro-esophageal reflux disease with esophagitis, without bleeding; I89.0 Lymphedema, not elsewhere classified; K58.0 Irritable bowel syndrome with diarrhea; E06.3 Autoimmune thyroiditis; D64.9 Anemia, unspecified; B95.61 Methicillin susceptible Staphylococcus aureus infection as the cause of diseases classified elsewhere; D72.829 Elevated white blood cell count, unspecified; R23.4 Changes in skin texture
CPT/HCPCS: 36410; 00123; 36415; 80048; 80053; 82805; 84145; 87040; 87077; 87493; 87637; 87641; 87798; 93005; 96361; 96365; 96375; 97116; 97161; 97530; 99291; J1650; 71046; 73701; 73720; 81003; 81015; 83605; 83615; 83735; 84484; 85025; 86140; 87070; 87186; 87205; 93010; 93971; 99231; 99232; 99233; 99238; J0131; J0690; J0692; J1610; J1885; J3370; J3372; J3475; J3480; J3490

== ENCOUNTER 2023-07-18 14:06 | Outpatient (CLI) | payer OTHER, SELFPAY ==
[2023-07-18 14:05] LABS: Abs Immature Grans 0.03 10^3/uL (0.0-0.06); Absolute Eosinophil Count 0.22 10^3/uL (0.0-0.7); Absolute Lymphocyte Count 3.35 10^3/uL (1.2-3.4); Absolute Monocyte Count 0.56 10^3/uL (0.1-0.8); Absolute Neutrophil Count 4.32 10^3/uL (1.2-6.7); Basophils % 1.2; Eosinophils % 2.6; HCT 38.3 % (36.0-46.0); HGB 12.9 g/dL (11.2-15.7); Immature Grans % 0.3; MCH 27.5 pg (27.0-33.0); MCHC 33.7 % (32.0-36.0); MCV 82 fL (80-95); MPV 8.2 fL (8.0-11.0); Monocytes % 6.5; Neutrophils % 50.4; RBC 4.69 10^6/uL (3.93-5.22); RDW 15.9 % (11.7-14.6); RDW-SD 46.6 fL; WBC 8.58 10^3/uL (4.4-10.8)
[2023-07-18 14:49] LABS: Platelet Count 920 10^3/uL (130-400)
[2023-07-18 15:21] LABS: Anion Gap 16.2 mmol/L (3-11); BUN 19 mg/dL (7-18); CO2 25.8 mmol/L (21.0-32.0); CREATININE 1.2 mg/dL (0.55-1.02); Calcium 9.3 mg/dL (8.5-10.1); Chloride 97 mmol/L (98-107); Estimated GFR 54.13 (mL/min/1.73m2); Glucose 102 mg/dL (74-106); Potassium 4.2 mmol/L (3.5-5.1); Sodium 139 mmol/L (136-145)
[2023-07-18 15:24] LABS: C-Reactive Protein < 0.50 mg/dL (<or=0.5)
[2023-07-18 19:27] LABS: Lab Add On Test DONE
[2023-07-18 19:39] LABS: Iron 47 ug/dL (50-170)
[2023-07-18 19:52] LABS: Ferritin 127 ng/mL (8-252)
== END 2023-07-18 14:07 | disposition home or self-care (01) ==
LOC: LBO 14:07
PROVIDERS: PCP Student in an Organized Health Care Education/Training Program; Visit Provider Internal Medicine
DX: N17.9 Acute kidney failure, unspecified (principal); D75.839 Thrombocytosis, unspecified; L03.116 Cellulitis of left lower limb
CPT/HCPCS: 36415; 80048; 82728; 83540; 85025; 86140

== ENCOUNTER 2023-07-20 07:52 | Outpatient (CLI) | payer OTHER, SELFPAY ==
[2023-07-20 07:47] LABS: Abs Immature Grans 0.02 10^3/uL (0.0-0.06); Absolute Eosinophil Count 0.24 10^3/uL (0.0-0.7); Absolute Lymphocyte Count 3.02 10^3/uL (1.2-3.4); Absolute Neutrophil Count 2.73 10^3/uL (1.2-6.7); Basophils % 1.5; Eosinophils % 3.6; HCT 37.6 % (36.0-46.0); HGB 12.5 g/dL (11.2-15.7); Immature Grans % 0.3; MCH 27.4 pg (27.0-33.0); MCHC 33.2 % (32.0-36.0); MCV 83 fL (80-95); MPV 8.3 fL (8.0-11.0); Monocytes % 8.9; Neutrophils % 40.7; RBC 4.56 10^6/uL (3.93-5.22); RDW 15.9 % (11.7-14.6); RDW-SD 47.1 fL; WBC 6.71 10^3/uL (4.4-10.8)
[2023-07-20 08:11] LABS: Platelet Count 837 10^3/uL (130-400)
[2023-07-20 08:24] LABS: ALT 33 U/L (14-59); AST 22 U/L (15-37); Albumin 3.5 g/dL (3.4-5.0); Alkaline Phosphatase 96 U/L (46-116); Anion Gap 9.3 mmol/L (3-11); BUN 21 mg/dL (7-18); Bilirubin, Total 0.3 mg/dL (0.2-1.0); CO2 30.7 mmol/L (21.0-32.0); CREATININE 1.2 mg/dL (0.55-1.02); Calcium 9.3 mg/dL (8.5-10.1); Chloride 98 mmol/L (98-107); Estimated GFR 54.13 (mL/min/1.73m2); Ferritin 112 ng/mL (8-252); Glucose 102 mg/dL (74-106); Potassium 4.1 mmol/L (3.5-5.1); Sodium 138 mmol/L (136-145); Total Protein 8.1 g/dL (6.4-8.2)
[2023-07-20 08:34] LABS: C-Reactive Protein < 0.50 mg/dL (<or=0.5)
[2023-07-20 08:37] LABS: Iron 62 ug/dL (50-170); Total Iron Binding Capacity 418 ug/dL (250-450); Transferrin Sat 15 % (15-50)
[2023-07-20 10:19] LABS: Lab Add On Test DONE
[2023-07-20 10:28] LABS: ESR 43 mm/hr (0-30)
[2023-07-20 10:48] LABS: Procalcitonin < 0.1 ng/mL
== END 2023-07-20 07:53 | disposition home or self-care (01) ==
LOC: LBO 07:52
PROVIDERS: PCP Student in an Organized Health Care Education/Training Program; Visit Provider Student in an Organized Health Care Education/Training Program
DX: D75.839 Thrombocytosis, unspecified; Z91.89 Other specified personal risk factors, not elsewhere classified; N17.9 Acute kidney failure, unspecified; R53.83 Other fatigue; B94.9 Sequelae of unspecified infectious and parasitic disease
CPT/HCPCS: 36415; 80053; 84145; 85652; 82728; 83540; 83550; 85025; 86140

== ENCOUNTER 2023-07-23 05:13 | Outpatient (CLI) | payer OTHER, SELFPAY ==
[2023-07-23 10:02] LABS: ESR 21 mm/hr (0-30); HCT 38.8 % (36.0-46.0); HGB 12.7 g/dL (11.2-15.7); MCH 27.3 pg (27.0-33.0); MCHC 32.7 % (32.0-36.0); MCV 83 fL (80-95); MPV 8.4 fL (8.0-11.0); RBC 4.65 10^6/uL (3.93-5.22); RDW 15.9 % (11.7-14.6); RDW-SD 48.2 fL; WBC 6.85 10^3/uL (4.4-10.8)
[2023-07-23 10:27] LABS: BUN 25 mg/dL (7-18); CREATININE 1.1 mg/dL (0.55-1.02); Calcium 9.5 mg/dL (8.5-10.1); Chloride 98 mmol/L (98-107); Estimated GFR 60.08 (mL/min/1.73m2); Glucose 95 mg/dL (74-106); Potassium 4.1 mmol/L (3.5-5.1); Sodium 138 mmol/L (136-145)
[2023-07-23 11:06] LABS: Platelet Count 759 10^3/uL (130-400)
== END 2023-07-23 05:14 | disposition home or self-care (01) ==
LOC: LBO 05:13
PROVIDERS: PCP Student in an Organized Health Care Education/Training Program; Referring Provider Student in an Organized Health Care Education/Training Program; Visit Provider Student in an Organized Health Care Education/Training Program
DX: L03.116 Cellulitis of left lower limb (principal); Z91.89 Other specified personal risk factors, not elsewhere classified; R07.9 Chest pain, unspecified
CPT/HCPCS: 36415; 80048; 85027; 85652

== ENCOUNTER 2023-07-25 14:05 | Emergency (ER) | payer OTHER, SELFPAY ==
[2023-07-25] VITALS (11 sets, daily range): BP systolic 100–166; BP diastolic 71–100; PULSE 79–99; RESP 12–18; O2SAT 84–99
--- NOTE | 2023-07-25 14:00 | RT.EKG_ITS ---
APPROVED REPORT Exam: Resting ECG Reason for Exam: Chest Pain Patient Location: E HR:92 bpm ECG Measurements Heart Rate 92 AXIS FL 134 P 12 QRSd 102 QRS -51 QT 387 T -26 QTc 479 Conclusion Sinus rhythm...normal P axis, V-rate 60- 99 Left anterior fascicular block...axis(240,-40), init forces inf Probable anterior infarct, age indeterminate...Q >35mS, T neg, V2-V5
--- NOTE | 2023-07-25 14:15 | DI.CT_ITS ---
Exam(s) CT CHEST PE CTA EXAM: CT CHEST PE CTA CLINICAL HISTORY: pleuritic chest pain. TECHNIQUE: Imaging Protocol: Axial CT angiography was performed with multi-slice acquisition and mu lti-planar and/or 3D reconstructions. CONTRAST MATERIAL: Intravenous: Omnipaque 350 contrast volume:100 mL COMPARISON: CT CT CHEST WO from 06/15/[address] CHEST WO from 12/15/2022 FINDINGS: Tracheobronchial tree: Patent where visualized. Pulmonary parenchyma: No consolidation or dominant measurable mass. No architectural distortion. The 4 mm nodule previously seen in the lateral basilar segment is not well visualized on the current exam ination. This may be due to poor inspiration. No new pulmonary nodules are seen. Pulmonary Arteries: No evidence of filling defect to suggest pulmonary emboli. Mediastinum and Noris: No dominant adenopathy or fluid collection. The esophagus is unremarkable. Po stsurgical changes are seen at the gastroesophageal junction. Visualized thyroid gland: Unremarkable. Pleura: No effusion or pneumothorax. Heart: The heart is not dilated. No coronary artery calcifications are seen. No pericardial effusion. Aorta: Thoracic aorta non-dilated. No evidence of dissection. Upper abdomen: Unremarkable. Soft tissues: Unremarkable. Bones: Within normal limits for the patient's age. IMPRESSION: 1. No evidence of pulmonary embolism, thoracic aortic dissection or aneurysm. 2. No acute pulmonary process. RADIATION DOSE DELIVERED: 411.57mGy.cm Total DLP DATA REPOSITORY: All CT scans at this facility are submitted to the National Radiology Data Registry (NRDR) Dose Index Registry (DIR) with the [employer] (A[employer]). RADIATION OPTIMIZATION: All CT scans at this facility use at least one of these dose optimization te chniques: automated exposure control; mA and/or kV adjustment per patient size (includes targeted exa ms where dose is matched to clinical indication); or iterative reconstruction.
--- NOTE | 2023-07-25 14:20 | ED.GENADUL_ITS ---
Discharge Plan Disposition Patient Disposition: Home Condition: Stable Discharge Details Clinical Impression: Chest pain Primary Care Provider: Huyen Ramon ED Provider: Fredy Tolliver Home Meds and New Rx's Prescriptions: Continued glucagon 3 mg/actuation spray,non-aerosol 3 mg intranasal ONCE Qty: 1 3RF Rx Instructions: as a single dose (DME) Scalp Hair Prosthesis See Rx Instructions .Route .MEDSUPPLY Qty: 1 1RF Rx Instructions: Wear as recommendended (DME) Hair Prosthesis See Rx Instructions .Route .MEDSUPPLY Qty: 1 1RF Rx Instructions: As fitted/recommended for daily wear lisinopril 5 mg tablet 5 mg PO BID Qty: 180 3RF Rx Instructions: Re-starting, trial daily x 1 week nystatin 100,000 unit/gram ointment 1 applic topical TID Qty: 30 1RF Rx Instructions: Apply to area of rash @ chest/abdomen (DME) hair prosthesis See Rx Instructions .Route .MEDSUPPLY Qty: 1 1RF Rx Instructions: hair prosthesis for alopecia areata of scalp bariatric fusion chewable complete 2 tab tablet 2 100 ml PO DAILY (DME) glucometer See Rx Instructions .Route .MEDSUPPLY Qty: 1 0RF Rx Instructions: As directed to manage, prevent hypoglycemic episodes (DME) lancets [Comfort Lancets] Misc See Rx Instructions .ROUTE .MEDSUPPLY Qty: 100 1RF Rx Instructions: As directed to check blood glucose daily. No insulin. Dispense covered brand. (DME) Blood Glucose Test Strip See Rx Instructions .ROUTE .MEDSUPPLY Qty: 350 3RF Rx Instructions: As directed to check blood glucose QID. No insulin. Dispense covered brand. acarbose 25 mg tablet 25 mg PO TID bupropion HCl [Wellbutrin XL] 300 mg tablet extended release 24 hr 300 mg PO DAILY Qty: 90 3RF ondansetron HCl 4 mg tablet 4 mg PO Q8H PRN (Reason: nausea and vomiting) Qty: 20 3RF Rx Instructions: Use carefully (Yearly EKG 2' QT/QTc warning) potassium chloride 20 mEq tablet extended release 20 meq PO PRN PRN (Reason: hypokalemia) Qty: 30 2RF Rx Instructions: taking prn per lab test cgc pramipexole 0.25 mg tablet 0.25 mg PO BID Qty: 180 3RF Rx Instructions: Take at lunch time and 1 hour prior to bedtime venlafaxine [Effexor XR] 37.5 mg capsule,extended release 24hr 75 mg PO DAILY Qty: 180 3RF (DME) FreeStyle Christopher 2 Sensor Kit See Rx Instructions .ROUTE .MEDSUPPLY Qty: 1 0RF Rx Instructions: As directed (DME) FreeStyle Christopher 2 Hector Misc See Rx Instructions .ROUTE .MEDSUPPLY Qty: 1 0RF Rx Instructions: As directed hydrochlorothiazide 25 mg tablet 25 mg PO BID PRN (Reason: edema) Qty: 180 3RF Rx Instructions: PRN omeprazole 40 mg capsule,delayed release(DR/EC) 40 mg PO DAILY Qty: 90 3RF amiloride 5 mg tablet 5 mg PO BID Qty: 180 3RF Hold Instructions: until endocrine eval. Rx Instructions: Continue per Endocrine (07/2022+) gabapentin 800 mg tablet 800 mg PO BID Qty: 180 3RF Rx Instructions: Take at noon and 1 hour prior to bedtime for RLS (DME) Dexcom G7 Instrumentation Manager Misc See Rx Instructions .Route Qty: 1 1RF Rx Instructions: As directed to monitor blood glucose (DME) Dexcom G7 Sensor Device See Rx Instructions .Route Qty: 9 3RF Rx Instructions: As directed to monitor blood glucose tramadol 100 mg tablet 100 mg PO TID PRNQty: 21 0RF Bio-K plus 50 billion cell capsule,delayed release(DR/EC) 1 cap PO DAILY Qty: 10 0RF Discharge Instructions Additional Instructions: Your lab work and CAT scan did not show any concerning findings today. Your platelet count is continuing to downtrend Follow-up as scheduled with your primary care provider If you feel more ill, have severe worsening pain or difficulty breathing return to the emergency department for reevaluation HPI General Mode of arrival: ambulatory . Date/Time Provider Initiated Documentation: 07/25/23 14:07 . Limitations to Documentation: no limitations . Information obtained by: patient . History of Present Illness 52 year old F presents to the emergency department with the chief complaint of chest pain, described as moderate, Quality is described as aching, and is localized to t he chest. Patient reports radiation to back. Patient started experiencing this day(s) (1) and it has been constant. No relieving factors improve symptom(s), No exacerbating factors reported . Patient notes denies fever/chills. Patient did receive the following treatments prior to arrival, none Related Data Home Medications Medication Instructions Recorded Confirmed bariatric fusion chewable complete 2 100 ml PO DAILY 12/28/20 07/25/23 glucometer #1 ea 04/21/21 07/25/23 lancets (Comfort Lancets) #100 ea 04/26/21 07/25/23 glucagon 3 mg/actuation nasal spray 3 mg intranasal ONCE severe 07/22/21 07/25/23 hypoglycemia #1 ea blood sugar diagnostic (Blood #350 ea 03/29/22 07/25/23 Glucose Test strips) acarbose 25 mg tablet 25 mg PO TID 04/13/22 07/25/23 Hair Prosthesis #1 ea 06/02/22 07/25/23 Scalp Hair Prosthesis #1 ea 06/02/22 07/25/23 bupropion HCl 300 mg 24 hr tablet, 300 mg PO DAILY #90 tabs 09/02/22 07/25/23 extended release (Wellbutrin XL) lisinopril 5 mg tablet 5 mg PO BID #180 tabs 02/10/23 07/25/23 ondansetron HCl 4 mg tablet 4 mg PO Q8H PRN nausea and 03/13/23 07/25/23 vomiting #20 tabs potassium chloride 20 mEq 20 meq PO PRN PRN hypokalemia #30 03/15/23 07/25/23 tablet,extended release tabs pramipexole 0.25 mg tablet 0.25 mg PO BID #180 tabs 04/18/23 07/25/23 venlafaxine 37.5 mg 75 mg (2 x 37.5 mg) PO DAILY #180 05/03/23 07/25/23 capsule,extended release 24 hr caps (Effexor XR) flash glucose scanning reader #1 ea 05/14/23 07/25/23 (FreeStyle Christopher 2 Hector) flash glucose sensor (FreeStyle #1 ea 05/14/23 07/25/23 Christopher 2 Sensor kit) hydrochlorothiazide 25 mg tablet 25 mg PO BID PRN edema #180 tabs 06/14/23 07/25/23 amiloride 5 mg tablet 5 mg PO BID #180 tabs 06/16/23 07/25/23 omeprazole 40 mg capsule,delayed 40 mg PO DAILY #90 tabs 06/16/23 07/25/23 release gabapentin 800 mg tablet 800 mg PO BID #180 tabs 06/28/23 07/25/23 L. acidophilus,casei,rhamnosus 50 1 cap PO DAILY #10 caps 07/13/23 07/25/23 billion cell capsule,delayed release (Bio-K plus) tramadol 100 mg tablet 100 mg PO TID PRN #21 tabs 07/13/23 07/25/23 blood-glucose meter,continuous #1 ea 07/15/23 07/25/23 (Dexcom G7 Instrumentation Manager) blood-glucose sensor (Dexcom G7 #9 ea 07/15/23 07/25/23 Sensor device) nystatin 100,000 unit/gram topical 1 applic topical TID #30 grams 07/23/23 07/25/23 ointment Previous Rx's Medication Instructions Recorded glucometer #1 ea 04/21/21 lancets (Comfort Lancets) #100 ea 04/26/21 glucagon 3 mg/actuation nasal spray 3 mg intranasal ONCE severe 07/22/21 hypoglycemia #1 ea blood sugar diagnostic (Blood #350 ea 03/29/22 Glucose Test strips) Hair Prosthesis #1 ea 06/02/22 Scalp Hair Prosthesis #1 ea 06/02/22 bupropion HCl 300 mg 24 hr tablet, 300 mg PO DAILY #90 tabs 09/02/22 extended release (Wellbutrin XL) lisinopril 5 mg tablet 5 mg PO BID #180 tabs 02/10/23 ondansetron HCl 4 mg tablet 4 mg PO Q8H PRN nausea and 03/13/23 vomiting #20 tabs potassium chloride 20 mEq 20 meq PO PRN PRN hypokalemia #30 03/15/23 tablet,extended release tabs pramipexole 0.25 mg tablet 0.25 mg PO BID #180 tabs 04/18/23 venlafaxine 37.5 mg 75 mg (2 x 37.5 mg) PO DAILY #180 05/03/23 capsule,extended release 24 hr caps (Effexor XR) flash glucose scanning reader #1 ea 05/14/23 (FreeStyle Christopher 2 Hector) flash glucose sensor (FreeStyle #1 ea 05/14/23 Christopher 2 Sensor kit) hydrochlorothiazide 25 mg tablet 25 mg PO BID PRN edema #180 tabs 06/14/23 amiloride 5 mg tablet 5 mg PO BID #180 tabs 06/16/23 omeprazole 40 mg capsule,delayed 40 mg PO DAILY #90 tabs 06/16/23 release gabapentin 800 mg tablet 800 mg PO BID #180 tabs 06/28/23 L. acidophilus,casei,rhamnosus 50 1 cap PO DAILY #10 caps 07/13/23 billion cell capsule,delayed release (Bio-K plus) tramadol 100 mg tablet 100 mg PO TID PRN #21 tabs 07/13/23 blood-glucose meter,continuous #1 ea 07/15/23 (Dexcom G7 Instrumentation Manager) blood-glucose sensor (Dexcom G7 #9 ea 07/15/23 Sensor device) nystatin 100,000 unit/gram topical 1 applic topical TID #30 grams 07/23/23 ointment Allergies Allergy/AdvReac Type Severity Reaction Status Date / Time atropine Allergy Intermediate HIVES, Verified 07/25/23 14:11 SWOLLEN spironolactone Allergy Intermediate Skin Rash Verified 07/25/23 14:11 eplerenone AdvReac Intermediate swelling; Verified 07/25/23 14:11 SOB General Stated Complaint: Chest Pain JOBY: 2 Review of Systems All systems reviewed & are unremarkable except as noted in HPI and below Constitutional Constitutional: Denies chills and Denies fever(s) Cardiovascular Cardiovascular: Reports chest pain and Denies dyspnea Respiratory Respiratory: Denies cough and Denies dyspnea Gastrointestinal Gastrointestinal: Denies abdominal pain, Denies nausea and Denies vomiting Integumentary/Breasts Skin/Breast: Denies rash Exam Const General: no acute distress Orientation: alert [facility] Head: normal to inspection Ears: external ears normal General nose exam: external nose normal Mouth: moist mucous membranes Eyes General: appearance normal, both eyes and all related structures Neck Neck: normal visual inspection Resp Effort & Inspection: normal respiratory effort and able to speak in complete sentences Auscultation: clear to auscultation bilaterally Cardio Jugular venous pressure: no JVD Rate: regular rate GI Palpation: soft and nontender Back/Spine/Pelvis Back: no CVA tenderness, No mass and No erythema Skin General skin exam: no rashes or lesions noted Neuro General: patient alert and patient oriented x3 Extrem General: normal to inspection Psych Mental Status: mental status grossly normal Course Vital Signs Vital signs: Vital Signs Pulse 99 H 07/25/23 14:07 Respiratory Rate 16 07/25/23 14:07 Blood Pressure 166/100 H 07/25/23 14:07 Pulse Oximetry 98 07/25/23 14:07 Pulse 99 H 07/25/23 14:07 Respiratory Rate 16 07/25/23 14:07 Respiratory Effort Normal, Non-Labored 07/25/23 14:11 Blood Pressure 166/100 H 07/25/23 14:07 Blood Pressure Position Sitting 07/25/23 14:07 Pulse Oximetry 98 07/25/23 14:07 Oxygen Delivery Method Room Air 07/25/23 14:07 Oxygen Flow Rate 0 07/25/23 14:07 Pain Level 4 07/25/23 14:07 Medical Decision Making 2-year-old female with a history of hypertension, recent admission and discharge d on the 12th of this month for sepsis related to a left foot wound cellulitis, comes in from the podiatry office after reporting chest pain. She says since yesterday mid afternoon she has had anterior sharp chest pain with deep breaths that intermittently radiates to the upper back. She denies increased pain with exertion, diaphoresis, shortness of breath, and states she feels well otherwise. Her left leg is significantly improved and has no erythema or swelling compared to the right. She is alert and oriented x 4 speaking in full sentences on arrival, appears well, has clear lung sounds, no JVD, no abdominal tenderness, no murmurs, has reproducible upper back tenderness but no visible or palpable deformities. No abdominal tenderness or lower abdominal pain. Suspect pleurisy versus chest wall pain, less likely pericarditis, we will proceed with troponin, CBC, CMP, obtain CTA of the chest to evaluate primarily for PE given the pleuritic nature of her pain. The pain in her back is not tearing sensation as she has equal peripheral pulses so doubt dissection. Labs and imaging unremarkable, has had symptoms for over days do not feel delta troponin beneficial. She is stable and appears well in no distress speaking in full sentences. Discussed results with her and she is comfortable with discharge which I feel is reasonable given reassuring workup, she has follow-up with her primary care within a week, return precautions given Differential Diagnosis Differential Diagnosis: Pleurisy, pericarditis, PE, NSTEMI Medical Records Medical records reviewed: Yes I reviewed the patient's medical records. Imaging Data Radiologic Study: Attestation: I personally reviewed and interpreted this imaging study as follows: Imaging: CT Scan Radiologist's impression: CLINICAL HISTORY: pleuritic chest pain. TECHNIQUE: Imaging Protocol: Axial CT angiography was performed with multi- slice acquisition and multi-planar and/or 3D reconstructions. CONTRAST MATERIAL: Intravenous: Omnipaque 350 contrast volume:100 mL COMPARISON: CT CT CHEST WO from 06/15/[address] CHEST WO from 12/15/2022 FINDINGS: Tracheobronchial tree: Patent where visualized. Pulmonary parenchyma: No consolidation or dominant measurable mass. No architectural distortion. The 4 mm nodule previously seen in the lateral basilar segment is not well visualized on the current examination. This may be due to poor inspiration. No new pulmonary nodules are seen. Pulmonary Arteries: No evidence of filling defect to suggest pulmonary emboli. Mediastinum and Noris: No dominant adenopathy or fluid collection. The esophagus is unremarkable. Postsurgical changes are seen at the gastroesophageal junction. Visualized thyroid gland: Unremarkable. Pleura: No effusion or pneumothorax. Heart: The heart is not dilated. No coronary artery calcifications are seen. No pericardial effusion. Aorta: Thoracic aorta non-dilated. No evidence of dissection. Upper abdomen: Unremarkable. Soft tissues: Unremarkable. Bones: Within normal limits for the patient's age. IMPRESSION: 1. No evidence of pulmonary embolism, thoracic aortic dissection or aneurysm. 2. No acute pulmonary process. Lab Data Lab results reviewed: Yes I reviewed the patient's lab results. ECG Data Attestation: I personally reviewed and interpreted this ECG (s) as follows: Prior ECG tracings: available for review Interpretation: Sinus rhythm, rate of 92, SD 134, no STEMI or significant changes from prior EKG Quality:SDOH Health Related Social Needs: No Data to Display PFSH All Active Problems (Updated 07/25/23 @ 15:22 by Fredy Tolliver MD) Chest pain (Acute) Chest pain (Acute) Thrombocytosis (Acute) presumed reactive? possible rebound? High platelet count (Acute) Left leg swelling (Acute) Cellulitis (Acute) Arthritis of left glenohumeral joint (Acute) Menopausal symptoms (Acute) CKD (chronic kidney disease) stage 2, GFR 60-89 ml/min (Acute) New baseline?! Hx of hysterectomy for benign disease (Acute) benign, but painful/severe Ill feeling (Acute) Recent episodes of somnolence, off-balance & spells of being out of my body. Possibly psych rxn (2' anx, grief, milestones) .. but monitoring. Hypertension (Chronic) Hx HTN .. with med d/c post bariatric surg wt loss.. some elevated BPs, 05/2022, re-start low-dose lisinopril. LVH (left ventricular hypertrophy) (Acute) Newly noted, although Hx left axis dev (-90, -30) .. Hx HTN, Flash Pulm Edema (2019), obesity, s/p bariatric surgery. DUB (dysfunctional uterine bleeding) (Acute) Cont'd .. with 17 week sized uterus per pt rpt, 09/01/22 .. [ ] [facility] Surgery planned next Hypoglycemia (Acute) Hx BG < 35 per CGM Acute hypokalemia (Acute) Disorder of iron metabolism (Acute) Per 03/22/22 [facility] Gen surgery note Elevated PTHrP level (Acute) Per 03/22/22 [facility] Gen surgery note Hyperparathyroidism (Acute) Postprandial hypoglycemia (Acute) PP Hyperinsulinemic hypogly Dx per [facility] Endo (Echt). 04/2022. per observation and tel d/w Dr. Ortega (future Endo, Val[place]).. vs exercise-induced Status post bariatric surgery (Acute) Successful weight loss, but dangerous, symptomatic HYPOglycemia [neg dumping syndrome per [facility]] Skin lesion (Acute) Mild wound, 2' probable abd intertrigo. Facial twitching (Acute) Nodule of left lung (Acute) 3mm, incidental finding, LLL (12/2020 CT). [ ] 6 mo FU.. Paresthesias (Acute) Hypotension (Acute) post gastric bypass ... lowering ACEi, BB, CCB. DIuretics in place 2' LE edema (albeit improved). Depressive disorder (Chronic 05/23/11) Wellbutrin 2012, discon 12/2012, restart 05/2013 Hx of Marylou thyroiditis (Acute) Imbalance (Acute) Cervical radiculopathy (Acute) Hematuria (Acute) Fatty liver (Acute) 10/02/18 Dr Schroeder/[facility] Migraine headache with aura (Chronic) DR. VALDEZ 08/29/11 [employer] Vertigo and/or pain Uterine leiomyoma (Chronic 11/02/15) On pelvic ultrasound uterus enlarged approximate 13 cm. 08/04/2021 pelvic pain radiating from back. Serrated adenoma of colon (Acute 07/07/15) Dr. Contreras, sessile colonic polyp, inflammatory polyp Sensorineural hearing loss, bilateral (Chronic 11/01/17) Restless leg (Acute 03/31/15) Some relief with iron infusion (albeit reaction to infusion), 05/2018. 06/16/19 f/u at sleep clinic Reflux esophagitis (Acute 07/07/15) Dr. Contreras gastritis Premenstrual dysphoric disorder (Acute 11/10/14) Gabriel Henderson MD [place] [facility] Positive TG (antinuclear antibody) (Acute 06/07/15) Mgrn wo aura wo ntrc mgr (Acute 09/05/11) DR. 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 inner foot tenderness .. out of proportion tenderness .. possible assoc with fever? (improved with soaking, but not closing) Fever Over 1 week; T 103/102/99; Neg COVID; Awaiting Flu SARS-CoV-2 positive (~10/26/21) Dysmenorrhea Warren exposure Dtr (+) .. Sore Throat, lab [ ] Dumping syndrome (04/12/21) NOT per Bariatric Team.. Dx per [facility] Endo .. [facility] Bariatric Team re-eval as NEG for dumping syndrome, 05/2021 Scab of knee fell last week, rough/dry scab, but irritated .. Trial debride @ home, consider surgtery if tender. Class 3 severe obesity due to excess calories with body mass index (BMI) of 40.0 to 44.9 in adult 07/31/19 [facility] Complicated grieving Her basically healthy mo due to COVID19 infection. She was intubated within days of becoming sick, sending out a cheerful text 4 days beforehand! Monisha has cancelled the trip just before flights, etc were shut down; she was originally worried for her fa 2' health issues and dementia. Close-knit family; inability for gathering for .. video/webexed with family in [place] (mo in [place]). Diabetes mellitus type 2 in obese Improved s/p bariatric surgery and wt loss BUT HYPOglycemia Encounter for insertion of venous access port on HOLD since K improvement 05/2019 Dehydration Preeclampsia Flash pulmonary edema Lymphedema referring to PT for evaluation and recommendations.. Bunion 12/24/18-nelson Yarbrough DPM Abnormal serum creatinine level (07/2018) Serious Creatinine elevation, with resolution between episodes of dehydration .. Sustained VT (ventricular tachycardia) during hypokalemia episode Angioedema 10/02/18 Dr Schroeder/[facility] Flushing 10/02/18 Dr Schroeder/[facility] Out of work (08/21/18) Recommend continuation of reduced hours due to continued electrolyte imbalances, fatigue and metabolic disorder. Unclear etiology makes it difficult to create a clear treatment plan, which in turn, makes routine and FT work difficult to manage. Revised [employer] Ppwk (06/2019). Solid, intermittent improvements, but unpredictable. 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 10/30/18, mian. I support time off from work due to continued electrolyte imbalances which cannot be explained. Re-referring to specialists @ [facility] as well as [facility]. Elevated plasma metanephrines (08/2018) Ordered by Endo, CT (Abd) [ ] ... follow up with Endo week of October 07. 08/2018, mian Kidney stone (02/27/12) Rectal hemorrhage (03/02/15) Dehydration (~08/21/18) Several episodes now .. She can almost gauge her K levels based on mm weakness. [ ] BMP [ ] IVF-KCl Bolus-K have helped with hypokalemia in between bouts of diarrhea/dehydration when IVF not needed. 09/2018, mian Rectal bleeding (03/02/15) Episodic - Was diagnosed with AVM's Mgrn w aura w [facility] mgrn (09/05/11) DR. VALDEZ 08/29/11 [employer] works Vertigo and/or pain Impaired fasting glucose (02/11/14) A1C 6.1% 12/2012 .. A1C 5.8 07/04/18. Hypokalemia (11/07/16) Chronic, possible 2' IBS/Diarrhea. Continued despite GI improvements, albeit improved. Trial Eplerenone, to be followed by HCTZ decrease. 10/09/18 Intermittent improvement, but unsteady and unpredictable .. Monisha seems unable to maintain her own K levels WNL w/o bolus/infusions at this time. Unable to tolerate K-sparing diuretics. Cont to research, evaluate, consult .. 09/2018, mian Essential hypertension (12/05/12) Elevated BPs, especially DBP. Hx high BP since of twins (20yrs), noted in Nephro note (2016). HCTZ used x years for HTN & Edema. Spirono not tolerated (Hives/Flush). Trial Eplerenone, 10/09/18, ik Unable to tolerate eplerenone, angioedema-like reactions to K-sparing diuretics.. 09/2018, mian Diarrhea (10/29/15) Chronic, secretory .. s/p multiple [place], Bx. Trial cholestyramine, 10/2018, ik planned. Irritable bowel syndrome diarrhea predominant Alopecia Hx of adenomatous colonic polyps GERD (gastroesophageal reflux disease) Marylou's thyroiditis Depression Anemia Reflux esophagitis Surgical History S/P laparoscopic hysterectomy (~12/2022) Extensive lysis of adhesions, bilateral salpingectomy and cystoscopy, repair of vaginal lacerations for chronic pelvic pain and fibroid uterus. History of Nadia-en-Y gastric bypass (~11/2019) H/O colonoscopy (12/05/17) History of esophagogastroduodenoscopy (EGD) (12/05/17) Tonsillectomy section x3 Endometrial Ablation 2007 2012 EGD - MAC 2016 Colonoscopy - MAC (03/16/14) w/ bx 2015-serrated adenomatous polyp Most recent 12/05/2017 Family History Mother Pulmonary hypertension Heart disease valve replacement Father Prostate cancer Essential hypertension Parkinsons Sister Uterine cancer Brother Heart disease Father Hypertension Mother Heart disease Maternal Grandfather Diabetes Sister Age: 59 Cancer Other Colon cancer Social History Smoking/Tobacco Use Status: Never Smoking risk assessment performed?: Yes Alcohol Intake: current Alcohol Intake frequency: holidays/special occasions only Alcohol type: wine Drug use: Never Substance use type: does not use Adopted: No Caregiver/Support person: No Household members: spouse and other Details: Partner - Jayne, children Housing: house Number of Children: 4 number of grandchildren: 0 Communication Needs: Corrective Lenses Education Level: college current occupation: Daily today tested negative on this on the testing day negative negative di Pets and animals: Yes Pets and animals: cat(s) and dog(s) Sexually active: Yes Do you think of yourself as: lesbian/peña/homosexual Current gender identity: female What is your relationship status?: living with partner Panel score (0-1 are the most socially isolated patients): 1 What type of physical activity do you participate in: walking Duration: 15-30 minutes/day Frequency: 3-4 times per week Seatbelt use: always Working smoke detector in home: Yes Fire extinguisher in home: Yes Carbon monox detector in home: Yes Firearms in home: No Do you feel safe at home: Yes Do you feel safe in your relationship?: Yes Additional Social history: Lives in [place] with Jayne and their 2 18 yo girls, 4 older kids out of home. Runs [employer] at [employer]. Female Reproductive History Menstrual control method: permanent sterilization History History 3 Para 4 Hx # Term Pregnancies Multiple births 1 Hx # Pregnancies Ectopic pregnancies AB induced Hx Number of Living Children AB spontaneous
[2023-07-25 14:43] LABS: Bilirubin Negative (Negative); Blood Negative (Negative); Clarity Clear (Clear); Glucose Negative (Negative); Ketones Negative (Negative); Leukocyte Esterase Moderate (Negative); Nitrite Negative (Negative); Urobilinogen 0.2 mg/dL (Up to 0.2)
[2023-07-25] MEDS: Normal Saline - Diluent 50 ML VIAL IJ (14:44)
[2023-07-25] MEDS: Omnipaque 350 MG/ML 100 ML BTL IJ (14:45)
[2023-07-25 14:46] LABS: Abs Immature Grans 0.05 10^3/uL (0.0-0.06); Absolute Basophil Count 0.11 10^3/uL (0.0-0.2); Absolute Lymphocyte Count 3.75 10^3/uL (1.2-3.4); Basophils % 0.9; Eosinophils % 1.6; HCT 35.6 % (36.0-46.0); Immature Grans % 0.4; Lymphocytes % 30.5; MCH 27.8 pg (27.0-33.0); MCHC 33.7 % (32.0-36.0); MCV 82 fL (80-95); MPV 8.8 fL (8.0-11.0); Monocytes % 6.3; Neutrophils % 60.3; Platelet Count 629 10^3/uL (130-400); RBC 4.32 10^6/uL (3.93-5.22); RDW 15.6 % (11.7-14.6); RDW-SD 46.8 fL; WBC 12.29 10^3/uL (4.4-10.8)
[2023-07-25 14:49] LABS: Absolute Monocyte Count 0.77 10^3/uL (0.1-0.8); Absolute Neutrophil Count 7.41 10^3/uL (1.2-6.7)
[2023-07-25 14:52] LABS: PTT Activated 29.2 sec (23.6-32.8); Prothrombin Time 10.4 sec (9.1-11.1)
[2023-07-25 15:05] LABS: ALT 31 U/L (14-59); AST 23 U/L (15-37); Albumin 3.6 g/dL (3.4-5.0); Alkaline Phosphatase 90 U/L (46-116); Anion Gap 9.1 mmol/L (3-11); BUN 21 mg/dL (7-18); Bilirubin, Total 0.4 mg/dL (0.2-1.0); CO2 29.9 mmol/L (21.0-32.0); Calcium 9.1 mg/dL (8.5-10.1); Chloride 99 mmol/L (98-107); Estimated GFR 67.36 (mL/min/1.73m2); Glucose 101 mg/dL (74-106); Lipase 34 U/L (16-77); NT-proBNP 455 pg/mL (<300); Potassium 3.9 mmol/L (3.5-5.1); Sodium 138 mmol/L (136-145); Total Protein 7.9 g/dL (6.4-8.2); Troponin I < 50 ng/L (< or =60)
[2023-07-25 15:05] LABS: RBC Negative HPF (0-2)
[2023-07-25 15:06] LABS: Bacteria Rare HPF (Negative); C & S Indicated? No/Sq. Contamination; Casts Negative LPF (Negative); Crystals Negative HPF (Negative); Epithelial Cells Moderate HPF (Negative); Mucus Negative (Negative)
[2023-07-25 15:14] LABS: Procalcitonin < 0.1 ng/mL
== END 2023-07-25 15:45 | disposition home or self-care (01) ==
PROVIDERS: Emergency Provider Emergency Medicine; PCP Student in an Organized Health Care Education/Training Program
DX: R07.9 Chest pain, unspecified (principal); I10 Essential (primary) hypertension; Z86.2 Personal history of diseases of the blood and blood-forming organs and certain disorders involving the immune mechanism
CPT/HCPCS: 36415; 71275; 80053; 83690; 84145; 93005; 99285; 81003; 81015; 83735; 83880; 84484; 85025; 85610; 85730; 93010; 99283; J3490

== ENCOUNTER 2023-07-25 21:55 | Emergency (ER) | payer OTHER, SELFPAY ==
[2023-07-25] VITALS (21 sets, daily range): BP systolic 113–147; BP diastolic 67–80; PULSE 75–105; RESP 12–24; TEMP 36.9; O2SAT 93–98
--- NOTE | 2023-07-25 21:45 | RT.EKG_ITS ---
APPROVED REPORT Exam: Resting ECG Reason for Exam: sore chest Patient Location: E HR:93 bpm ECG Measurements Heart Rate 93 AXIS KS 157 P 29 QRSd 103 QRS -44 QT 334 T 37 QTc 416 Conclusion Sinus rhythm...normal P axis, V-rate 60- 99 Non-specific intraventricular conduction delay, Q waves in anterior precordial leads
--- NOTE | 2023-07-25 22:26 | W.ED.GENAD ---
Discharge Plan Discharge Details Chief Complaint: Abd Prob Primary Care Provider: Huyen Ramon ED Provider: Karmen Cat Home Meds and New Rx's Prescriptions: No Action glucagon 3 mg/actuation spray,non-aerosol 3 mg intranasal ONCE Qty: 1 3RF Rx Instructions: as a single dose (DME) Scalp Hair Prosthesis See Rx Instructions .Route .MEDSUPPLY Qty: 1 1RF Rx Instructions: Wear as recommendended (DME) Hair Prosthesis See Rx Instructions .Route .MEDSUPPLY Qty: 1 1RF Rx Instructions: As fitted/recommended for daily wear lisinopril 5 mg tablet 5 mg PO BID Qty: 180 3RF Rx Instructions: Re-starting, trial daily x 1 week nystatin 100,000 unit/gram ointment 1 applic topical TID Qty: 30 1RF Rx Instructions: Apply to area of rash @ chest/abdomen cephalexin 500 mg capsule 1,000 mg PO TID 7 Days Qty: 42 0RF Rx Instructions: 500mg QID if unable to tolerate high-dose doxycycline hyclate 100 mg tablet 100 mg PO BID Qty: 14 0RF Rx Instructions: Start for possible osteomyelitis (DME) hair prosthesis See Rx Instructions .Route .MEDSUPPLY Qty: 1 1RF Rx Instructions: hair prosthesis for alopecia areata of scalp bariatric fusion chewable complete 2 tab tablet 2 100 ml PO DAILY (DME) glucometer See Rx Instructions .Route .MEDSUPPLY Qty: 1 0RF Rx Instructions: As directed to manage, prevent hypoglycemic episodes (DME) lancets [Comfort Lancets] Misc See Rx Instructions .ROUTE .MEDSUPPLY Qty: 100 1RF Rx Instructions: As directed to check blood glucose daily. No insulin. Dispense covered brand. (DME) Blood Glucose Test Strip See Rx Instructions .ROUTE .MEDSUPPLY Qty: 350 3RF Rx Instructions: As directed to check blood glucose QID. No insulin. Dispense covered brand. acarbose 25 mg tablet 25 mg PO TID bupropion HCl [Wellbutrin XL] 300 mg tablet extended release 24 hr 300 mg PO DAILY Qty: 90 3RF ondansetron HCl 4 mg tablet 4 mg PO Q8H PRN (Reason: nausea and vomiting) Qty: 20 3RF Rx Instructions: Use carefully (Yearly EKG 2' QT/QTc warning) potassium chloride 20 mEq tablet extended release 20 meq PO PRN PRN (Reason: hypokalemia) Qty: 30 2RF Rx Instructions: taking prn per lab test cgc pramipexole 0.25 mg tablet 0.25 mg PO BID Qty: 180 3RF Rx Instructions: Take at lunch time and 1 hour prior to bedtime venlafaxine [Effexor XR] 37.5 mg capsule,extended release 24hr 75 mg PO DAILY Qty: 180 3RF (DME) FreeStyle Christopher 2 Sensor Kit See Rx Instructions .ROUTE .MEDSUPPLY Qty: 1 0RF Rx Instructions: As directed (DME) FreeStyle Christopher 2 Beverly Misc See Rx Instructions .ROUTE .MEDSUPPLY Qty: 1 0RF Rx Instructions: As directed hydrochlorothiazide 25 mg tablet 25 mg PO BID PRN (Reason: edema) Qty: 180 3RF Rx Instructions: PRN omeprazole 40 mg capsule,delayed release(DR/EC) 40 mg PO DAILY Qty: 90 3RF amiloride 5 mg tablet 5 mg PO BID Qty: 180 3RF Hold Instructions: until endocrine eval. Rx Instructions: Continue per Endocrine (07/2022+) gabapentin 800 mg tablet 800 mg PO BID Qty: 180 3RF Rx Instructions: Take at noon and 1 hour prior to bedtime for RLS (DME) Dexcom G7 Bunghole Borer Misc See Rx Instructions .Route Qty: 1 1RF Rx Instructions: As directed to monitor blood glucose (DME) Dexcom G7 Sensor Device See Rx Instructions .Route Qty: 9 3RF Rx Instructions: As directed to monitor blood glucose tramadol 100 mg tablet 100 mg PO TID PRNQty: 21 0RF Bio-K plus 50 billion cell capsule,delayed release(DR/EC) 1 cap PO DAILY Qty: 10 0RF HPI General Date/Time Provider Initiated Documentation: 07/25/23 21:56. HPI Narrative: Monisha is a 52-year-old female with history of T2DM controlled with weight management, HTN, GERD with esophagitis, and recent hospitalization from 07/02 - 2023 for sepsis due to cellulitis of the left lower leg who presents to the emergency department today for evaluation of sudden onset of generalized weakness, lightheadedness, and palpitations starting this evening. She was in the emergency department earlier today for evaluation of pleuritic chest pain, had a reassuring workup including CTA negative for acute pulmonary pathology including PE. She reports that she has overall been feeling well, denies fever/chills, unusual headache, vision changes, congestion, sore throat, cough, nausea/vomiting, abdominal pain other than associated with her right sided lower rib discomfort that radiates around from her back, change in bowel or bladder function. Lightheadedness is increased with standing. She reports that the cellulitis to her left lower leg has improved significantly, was evaluated by podiatry today for it. She was treated with Lovenox while she was in the hospital, denies history of blood clots, malignancy, or calf redness/swelling/tenderness such as associated with DVT. She did take a Flexeril today and last night for the lower rib pain, as she thought it may be muscular in origin. Related Data Home Medications Medication Instructions Recorded Confirmed bariatric fusion chewable complete 2 100 ml PO DAILY 12/28/20 07/25/23 glucometer #1 ea 04/21/21 07/25/23 lancets (Comfort Lancets) #100 ea 04/26/21 07/25/23 glucagon 3 mg/actuation nasal spray 3 mg intranasal ONCE severe 07/22/21 07/25/23 hypoglycemia #1 ea blood sugar diagnostic (Blood #350 ea 03/29/22 07/25/23 Glucose Test strips) acarbose 25 mg tablet 25 mg PO TID 04/13/22 07/25/23 Hair Prosthesis #1 ea 06/02/22 07/25/23 Scalp Hair Prosthesis #1 ea 06/02/22 07/25/23 bupropion HCl 300 mg 24 hr tablet, 300 mg PO DAILY #90 tabs 09/02/22 07/25/23 extended release (Wellbutrin XL) lisinopril 5 mg tablet 5 mg PO BID #180 tabs 02/10/23 07/25/23 ondansetron HCl 4 mg tablet 4 mg PO Q8H PRN nausea and 03/13/23 07/25/23 vomiting #20 tabs potassium chloride 20 mEq 20 meq PO PRN PRN hypokalemia #30 03/15/23 07/25/23 tablet,extended release tabs pramipexole 0.25 mg tablet 0.25 mg PO BID #180 tabs 04/18/23 07/25/23 venlafaxine 37.5 mg 75 mg (2 x 37.5 mg) PO DAILY #180 05/03/23 07/25/23 capsule,extended release 24 hr caps (Effexor XR) flash glucose scanning reader #1 ea 05/14/23 07/25/23 (FreeStyle Christopher 2 Beverly) flash glucose sensor (FreeStyle #1 ea 05/14/23 07/25/23 Christopher 2 Sensor kit) hydrochlorothiazide 25 mg tablet 25 mg PO BID PRN edema #180 tabs 06/14/23 07/25/23 amiloride 5 mg tablet 5 mg PO BID #180 tabs 06/16/23 07/25/23 omeprazole 40 mg capsule,delayed 40 mg PO DAILY #90 tabs 06/16/23 07/25/23 release gabapentin 800 mg tablet 800 mg PO BID #180 tabs 06/28/23 07/25/23 L. acidophilus,casei,rhamnosus 50 1 cap PO DAILY #10 caps 07/13/23 07/25/23 billion cell capsule,delayed release (Bio-K plus) tramadol 100 mg tablet 100 mg PO TID PRN #21 tabs 07/13/23 07/25/23 blood-glucose meter,continuous #1 ea 07/15/23 07/25/23 (Dexcom G7 Bunghole Borer) blood-glucose sensor (Dexcom G7 #9 ea 07/15/23 07/25/23 Sensor device) nystatin 100,000 unit/gram topical 1 applic topical TID #30 grams 07/23/23 07/25/23 ointment cephalexin 500 mg capsule 1,000 mg (2 x 500 mg) PO TID 7 07/25/23 07/25/23 days #42 caps doxycycline hyclate 100 mg tablet 100 mg PO BID #14 tabs 07/25/23 07/25/23 Previous Rx's Medication Instructions Recorded glucometer #1 ea 04/21/21 lancets (Comfort Lancets) #100 ea 04/26/21 glucagon 3 mg/actuation nasal spray 3 mg intranasal ONCE severe 07/22/21 hypoglycemia #1 ea blood sugar diagnostic (Blood #350 ea 03/29/22 Glucose Test strips) Hair Prosthesis #1 ea 06/02/22 Scalp Hair Prosthesis #1 ea 06/02/22 bupropion HCl 300 mg 24 hr tablet, 300 mg PO DAILY #90 tabs 09/02/22 extended release (Wellbutrin XL) lisinopril 5 mg tablet 5 mg PO BID #180 tabs 02/10/23 ondansetron HCl 4 mg tablet 4 mg PO Q8H PRN nausea and 03/13/23 vomiting #20 tabs potassium chloride 20 mEq 20 meq PO PRN PRN hypokalemia #30 03/15/23 tablet,extended release tabs pramipexole 0.25 mg tablet 0.25 mg PO BID #180 tabs 04/18/23 venlafaxine 37.5 mg 75 mg (2 x 37.5 mg) PO DAILY #180 05/03/23 capsule,extended release 24 hr caps (Effexor XR) flash glucose scanning reader #1 ea 05/14/23 ([employer]Style Christopher 2 Beverly) flash glucose sensor (FreeStyle #1 ea 05/14/23 Christopher 2 Sensor kit) hydrochlorothiazide 25 mg tablet 25 mg PO BID PRN edema #180 tabs 06/14/23 amiloride 5 mg tablet 5 mg PO BID #180 tabs 06/16/23 omeprazole 40 mg capsule,delayed 40 mg PO DAILY #90 tabs 06/16/23 release gabapentin 800 mg tablet 800 mg PO BID #180 tabs 06/28/23 L. acidophilus,casei,rhamnosus 50 1 cap PO DAILY #10 caps 07/13/23 billion cell capsule,delayed release (Bio-K plus) tramadol 100 mg tablet 100 mg PO TID PRN #21 tabs 07/13/23 blood-glucose meter,continuous #1 ea 07/15/23 (Dexcom G7 Bunghole Borer) blood-glucose sensor (Dexcom G7 #9 ea 07/15/23 Sensor device) nystatin 100,000 unit/gram topical 1 applic topical TID #30 grams 07/23/23 ointment cephalexin 500 mg capsule 1,000 mg (2 x 500 mg) PO TID 7 07/25/23 days #42 caps doxycycline hyclate 100 mg tablet 100 mg PO BID #14 tabs 07/25/23 Allergies Allergy/AdvReac Type Severity Reaction Status Date / Time atropine Allergy Intermediate HIVES, Verified 07/25/23 14:11 SWOLLEN spironolactone Allergy Intermediate Skin Rash Verified 07/25/23 14:11 eplerenone AdvReac Intermediate swelling; Verified 07/25/23 14:11 SOB General Stated Complaint: Abd Prob JOBY: 3 Review of Systems Narrative: see HPI Exam Const General: cooperative, healthy appearing, comfortable and no acute distress Nutritional Appearance: average body habitus HENMT Head: normal to inspection Ears: hearing grossly normal bilaterally General nose exam: external nose normal Face and sinus: normal facial exam Mouth: oral mucosae normal Eyes Pupils: PERRL EOM: EOM intact bilaterally Chest Chest: normal inspection of the chest and tenderness (R lower anterior ribcage) Resp Effort & Inspection: normal respiratory effort and able to speak in complete sentences Auscultation: clear to auscultation bilaterally Cardio Rate: regular rate Rhythm: regular rhythm GI Inspection: normal to inspection Palpation: soft, not rigid and tender in the RUQ Auscultation: normal bowel sounds Skin Rashes: rashes noted left distal lower leg Neuro General: patient alert Cranial Nerves: CN's II-XI intact bilaterally, PERRL, EOM intact bilaterally, no nystagmus, facial strength normal, tongue midline, able to rotate head bilaterally and able to elevate shoulders bilaterally Cognition: normal cognition Speech: speech normal Gait: normal gait Motor: muscle tone normal throughout and strength 5/5 throughout Sensory Exam: no sensory deficits noted Coordination: [id number] test normal and rapid alternating movement UE normal Course Vital Signs Vital signs: Vital Signs Temperature 36.9 C 07/25/23 21:59 Pulse 99 H 07/25/23 21:59 Respiratory Rate 20 07/25/23 21:59 Blood Pressure 147/79 H 07/25/23 21:59 Pulse Oximetry 95 07/25/23 21:59 Temperature 36.9 C 07/25/23 21:59 Temperature Source Temporal Artery Scan 07/25/23 21:59 Pulse 99 H 07/25/23 21:59 Respiratory Rate 20 07/25/23 21:59 Respiratory Effort Normal 07/25/23 22:02 Blood Pressure 147/79 H 07/25/23 21:59 Pulse Oximetry 95 07/25/23 21:59 Oxygen Delivery Method Room Air 07/25/23 21:59 Oxygen Flow Rate 0 07/25/23 21:59 Pain Level 6 07/25/23 21:59 Medical Decision Making Monisha is a 52-year-old female with history of T2DM controlled with weight management, HTN, GERD with esophagitis, and recent hospitalization from 07/02 - 2023 for sepsis due to cellulitis of the left lower leg who presents to the emergency department today for evaluation of sudden onset of generalized weakness, lightheadedness, and palpitations starting this evening. She was in the emergency department earlier today for evaluation of pleuritic chest pain, had a reassuring workup including CTA negative for acute pulmonary pathology including PE. She reports that she has overall been feeling well, denies fever/chills, unusual headache, vision changes, congestion, sore throat, cough, nausea/vomiting, abdominal pain other than associated with her right sided lower rib discomfort that radiates around from her back, change in bowel or bladder function. Lightheadedness is increased with standing. She reports that the cellulitis to her left lower leg has improved significantly, was evaluated by podiatry today for it. She was treated with Lovenox while she was in the hospital, denies history of blood clots, malignancy, or calf redness/swelling/tenderness such as associated with DVT. She did take a Flexeril today and last night for the lower rib pain, as she thought it may be muscular in origin. Physical exam reassuring. She does have tenderness to palpation along the right upper quadrant/right lower rib cage. Abdomen is soft, nondistended, with normoactive bowel sounds. Easy work of breathing, lung sounds clear bilaterally. Normal heart sounds. Cranial nerves II through XII intact as tested. Normal finger to finger, rapid alternating movements. No nystagmus noted. Moist mucous membranes. 5 out of 5 muscle strength upper and lower extremities. Mild excoriated rash noted to the medial left lower leg. Dry skin noted. No areas of erythema/warmth/tenderness. Distal pulses intact bilaterally. Normal gait. DDx includes was not limited to: Dehydration, orthostatic hypotension, electrolyte imbalance, cardiac arrhythmia, anxiety, ACS, pancreatitis, gastritis, costochondritis, muscle spasm I independently interpreted the following tests: EKG reassuring, normal sinus rhythm rate 93. Normal MN interval and QTc. Inverted T waves noted V2 to V5, no change from previous done earlier today at 1400 hrs. CBC remarkable for mild leukocytosis, white cell count 13.53, increased from 12.29 earlier today at 1514. CMP, magnesium, TSH, BNP, and initial troponin reassuring. While in the emergency department Monisha received famotidine IV with good improvement in chest discomfort. Handoff report given to Dr Shipman. Quality:SDOH Health Related Social Needs: No Data to Display PFSH All Active Problems (Updated 07/25/23 @ 15:22 by Fredy Tolliver MD) Chest pain (Acute) Chest pain (Acute) Thrombocytosis (Acute) presumed reactive? possible rebound? High platelet count (Acute) Left leg swelling (Acute) Cellulitis (Acute) Arthritis of left glenohumeral joint (Acute) Menopausal symptoms (Acute) CKD (chronic kidney disease) stage 2, GFR 60-89 ml/min (Acute) New baseline?! Hx of hysterectomy for benign disease (Acute) benign, but painful/severe Ill feeling (Acute) Recent episodes of somnolence, off-balance & spells of being out of my body. Possibly psych rxn (2' anx, grief, milestones) .. but monitoring. Hypertension (Chronic) Hx HTN .. with med d/c post bariatric surg wt loss.. some elevated BPs, 05/2022, re-start low-dose lisinopril. LVH (left ventricular hypertrophy) (Acute) Newly noted, although Hx left axis dev (-90, -30) .. Hx HTN, Flash Pulm Edema (2018), obesity, s/p bariatric surgery. DUB (dysfunctional uterine bleeding) (Acute) Cont'd .. with 17 week sized uterus per pt rpt, 09/01/22 .. [ ] [facility] [place] Surgery planned next Hypoglycemia (Acute) Hx BG < 35 per CGM Acute hypokalemia (Acute) Disorder of iron metabolism (Acute) Per 03/22/22 [facility] [place] [place] Gen surgery note Elevated PTHrP level (Acute) Per 03/22/22 [facility] [place] Gen surgery note Hyperparathyroidism (Acute) Postprandial hypoglycemia (Acute) PP Hyperinsulinemic hypogly Dx per [facility] [place] Endo (Echt). 04/2022. per observation and tel d/w Dr. Ortega (future Endo, [facility]).. vs exercise-induced Status post bariatric surgery (Acute) Successful weight loss, but dangerous, symptomatic HYPOglycemia [neg dumping syndrome per [facility]] Skin lesion (Acute) Mild wound, 2' probable abd intertrigo. Facial twitching (Acute) Nodule of left lung (Acute) 3mm, incidental finding, LLL (12/2020 CT). [ ] 6 mo FU.. Paresthesias (Acute) Hypotension (Acute) post gastric bypass ... lowering ACEi, BB, CCB. DIuretics in place 2' LE edema (albeit improved). Depressive disorder (Chronic 05/23/11) Wellbutrin 2012, discon 12/2012, restart 05/2013 Hx of Marylou thyroiditis (Acute) Imbalance (Acute) Cervical radiculopathy (Acute) Hematuria (Acute) Fatty liver (Acute) 10/02/18 Dr Schroeder/[facility] [place] Migraine headache with aura (Chronic) DR. VALDEZ 08/29/11 [employer] works Vertigo and/or pain Uterine leiomyoma (Chronic 11/02/15) On pelvic ultrasound uterus enlarged approximate 13 cm. 08/04/2021 pelvic pain radiating from back. Serrated adenoma of colon (Acute 07/07/15) Dr. Contreras, sessile colonic polyp, inflammatory polyp Sensorineural hearing loss, bilateral (Chronic 11/01/17) Restless leg (Acute 03/31/15) Some relief with iron infusion (albeit reaction to infusion), 05/2018. 06/16/19 f/u at sleep clinic Reflux esophagitis (Acute 07/07/15) Dr. Contreras gastritis Premenstrual dysphoric disorder (Acute 11/10/14) Gabriel Henderson MD [facility] Positive TG (antinuclear antibody) (Acute 06/07/15) Mgrn wo aura wo ntrc mgr (Acute 09/05/11) DR. VALDEZ 08/29/11 [employer] works Vertigo and/or pain Incomplete tear of left rotator cuff (Acute 05/31/16) Alopecia areata (Acute 05/23/11) Dx'ed 1990s Hair prosthesis Medical History Pre-op evaluation Hysterectomy planned, told she would need [facility] [place] due to Hx and anatomy History of endometrial biopsy (~05/26/22) [facility], 05/26/22 Post-resection malabsorption Per 03/22/22 [facility] [place] Gen surgery note Heel lesion Right heel, cracked skin .. inner foot tenderness .. out of proportion tenderness .. possible assoc with fever? (improved with soaking, but not closing) Fever Over 1 week; T 103/102/99; Neg COVID; Awaiting Flu SARS-CoV-2 positive (~10/26/21) Dysmenorrhea [place] exposure Dtr (+) .. Sore Throat, lab [ ] Dumping syndrome (04/12/21) NOT per Bariatric Team.. Dx per [facility] [place] Endo .. [facility] [place] Bariatric Team re-eval as NEG for dumping syndrome, 05/2021 Scab of knee fell last week, rough/dry scab, but irritated .. Trial debride @ home, consider surgtery if tender. Class 3 severe obesity due to excess calories with body mass index (BMI) of 40.0 to 44.9 in adult 07/31/19 [facility] Complicated grieving Her basically healthy mo due to COVID19 infection. She was intubated within days of becoming sick, sending out a cheerful text 4 days beforehand! Monisha has cancelled the trip just before flights, etc were shut down; she was originally worried for her fa 2' health issues and dementia. Close-knit family; inability for gathering for .. video/webexed with family in [place] (mo in [place]). Diabetes mellitus type 2 in obese Improved s/p bariatric surgery and wt loss BUT HYPOglycemia Encounter for insertion of venous access port on HOLD since K improvement 05/2019 Dehydration Preeclampsia Flash pulmonary edema Lymphedema referring to PT for evaluation and recommendations.. Bunion 12/24/18-nelson Yarbrough DPM Abnormal serum creatinine level (07/2018) Serious Creatinine elevation, with resolution between episodes of dehydration .. Sustained VT (ventricular tachycardia) during hypokalemia episode Angioedema 10/02/18 Dr Schroeder/[facility] [place] Flushing 10/02/18 Dr Schroeder/[facility] [place] Out of work (08/21/18) Recommend continuation of reduced hours due to continued electrolyte imbalances, fatigue and metabolic disorder. Unclear etiology makes it difficult to create a clear treatment plan, which in turn, makes routine and FT work difficult to manage. Revised [employer] Ppwk (06/2019). Solid, intermittent improvements, but unpredictable. 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 10/30/18, ik. I support time off from work due to continued electrolyte imbalances which cannot be explained. Re-referring to specialists @ [facility] as well as [facility]. Elevated plasma metanephrines (08/2018) Ordered by Endo, CT (Abd) [ ] ... follow up with Endo week of October 07. 08/2018, mian Kidney stone (02/27/12) Rectal hemorrhage (03/02/15) Dehydration (~08/21/18) Several episodes now .. She can almost gauge her K levels based on mm weakness. [ ] BMP [ ] IVF-KCl Bolus-K have helped with hypokalemia in between bouts of diarrhea/dehydration when IVF not needed. 09/2018, mian Rectal bleeding (03/02/15) Episodic - Was diagnosed with AVM's Mgrn w aura w intrc mgrn (09/05/11) DR. VALDEZ 08/29/11 [facility] Vertigo and/or pain Impaired fasting glucose (02/11/14) A1C 6.1% 12/2012 .. A1C 5.8 07/04/18. Hypokalemia (11/07/16) Chronic, possible 2' IBS/Diarrhea. Continued despite GI improvements, albeit improved. Trial Eplerenone, to be followed by HCTZ decrease. 10/09/18 Intermittent improvement, but unsteady and unpredictable .. Monisha seems unable to maintain her own K levels WNL w/o bolus/infusions at this time. Unable to tolerate K-sparing diuretics. Cont to research, evaluate, consult .. 09/2018, mian Essential hypertension (12/05/12) Elevated BPs, especially DBP. Hx high BP since of twins (20yrs), noted in Nephro note (2017). HCTZ used x years for HTN & Edema. Spirono not tolerated (Hives/Flush). Trial Eplerenone, 10/09/18, ik Unable to tolerate eplerenone, angioedema-like reactions to K-sparing diuretics.. 09/2018, mian Diarrhea (10/29/15) Chronic, secretory .. s/p multiple [place], Bx. Trial cholestyramine, 10/2018, ik planned. Irritable bowel syndrome diarrhea predominant Alopecia Hx of adenomatous colonic polyps GERD (gastroesophageal reflux disease) Marylou's thyroiditis Depression Anemia Reflux esophagitis Surgical History S/P laparoscopic hysterectomy (~12/2022) Extensive lysis of adhesions, bilateral salpingectomy and cystoscopy, repair of vaginal lacerations for chronic pelvic pain and fibroid uterus. History of Nadia-en-Y gastric bypass (~11/2019) H/O colonoscopy (12/05/17) History of esophagogastroduodenoscopy (EGD) (12/05/17) Tonsillectomy section x3 Endometrial Ablation 2007 2012 EGD - MAC 2015 Colonoscopy - MAC (03/16/14) w/ bx 2016-serrated adenomatous polyp Most recent 12/05/2017 Family History Mother Pulmonary hypertension Heart disease valve replacement Father Prostate cancer Essential hypertension Parkinsons Sister Uterine cancer Brother Heart disease Father Hypertension Mother Heart disease Maternal Grandfather Diabetes Sister Age: 59 Cancer Other Colon cancer Social History Smoking/Tobacco Use Status: Never Smoking risk assessment performed?: Yes Alcohol Intake: current Alcohol Intake frequency: holidays/special occasions only Alcohol type: wine Drug use: Never Substance use type: does not use Adopted: No Caregiver/Support person: No Household members: spouse and other Details: Partner - Jayne, children Housing: house Number of Children: 4 number of grandchildren: 0 Communication Needs: Corrective Lenses Education Level: college current occupation: Daily today tested negative on this on the testing day negative negative di Pets and animals: Yes Pets and animals: cat(s) and dog(s) Sexually active: Yes Do you think of yourself as: lesbian/peña/homosexual Current gender identity: female What is your relationship status?: living with partner Panel score (0-1 are the most socially isolated patients): 1 What type of physical activity do you participate in: walking Duration: 15-30 minutes/day Frequency: 3-4 times per week Seatbelt use: always Working smoke detector in home: Yes Fire extinguisher in home: Yes Carbon monox detector in home: Yes Firearms in home: No Do you feel safe at home: Yes Do you feel safe in your relationship?: Yes Additional Social history: Lives in [place] with Jayne and their 2 18 yo girls, 4 older kids out of home. Runs [employer] at [employer]. Female Reproductive History Menstrual control method: permanent sterilization History History 3 Para 4 Hx # Term Pregnancies Multiple births 1 Hx # Pregnancies Ectopic pregnancies AB induced Hx Number of Living Children AB spontaneous
[2023-07-25] MEDS: FAMOTIDINE 20 MG/50 ML BAG 200 MG IVPB (22:33)
[2023-07-25 22:35] LABS: HCT 36.7 % (36.0-46.0); MCH 27.7 pg (27.0-33.0); MCHC 32.7 % (32.0-36.0); MCV 85 fL (80-95); MPV 8.9 fL (8.0-11.0); Platelet Count 647 10^3/uL (130-400); RBC 4.33 10^6/uL (3.93-5.22); RDW-SD 49.3 fL; WBC 13.53 10^3/uL (4.4-10.8)
[2023-07-25 22:47] LABS: Absolute Lymphocyte Count 5.28 10^3/uL (1.2-3.4); Absolute Monocyte Count 0.54 10^3/uL (0.1-0.8); Absolute Neutrophil Count 7.44 10^3/uL (1.2-6.7); Atypical Lymphocytes % 4
[2023-07-25 22:48] LABS: Absolute Eosinophil Count 0.27 10^3/uL (0.0-0.7); Diff Comment Manual Differential; Microcytosis 1+
[2023-07-25 22:56] LABS: ALT 31 U/L (14-59); AST 23 U/L (15-37); Albumin 3.4 g/dL (3.4-5.0); Alkaline Phosphatase 102 U/L (46-116); BUN 18 mg/dL (7-18); Bilirubin, Total 0.3 mg/dL (0.2-1.0); CREATININE 1.1 mg/dL (0.55-1.02); Calcium 8.8 mg/dL (8.5-10.1); Chloride 101 mmol/L (98-107); Estimated GFR 60.08 (mL/min/1.73m2); Glucose 135 mg/dL (74-106); Potassium 3.8 mmol/L (3.5-5.1); Sodium 139 mmol/L (136-145); Total Protein 7.7 g/dL (6.4-8.2); Troponin I < 50 ng/L (< or =60)
[2023-07-25 23:00] LABS: NT-proBNP 403 pg/mL (<300); TSH (W/Ref FT4) 2.47 uIU/mL (0.36-3.74)
[2023-07-25 23:14] LABS: COVID-19 PCR Negative (Negative); Influenza A PCR Negative (Negative); Influenza B PCR Negative (Negative); RSV PCR Negative (Negative); Source Nasopharynx
[2023-07-26] VITALS (8 sets, daily range): BP systolic 122–130; BP diastolic 69–83; PULSE 76–84; RESP 14–24; O2SAT 95–97
--- NOTE | 2023-07-26 00:23 | ED.PROG_ITS ---
Date of service: 07/26/23 Time of Service: 00:23 Medical Decision Making The patient is chest pain improved significantly with famotidine that was given here in the emergency room. The patient is currently taking oral omeprazole and most likely had some breakthrough esophagitis causing her symptoms. The patient is declining to stay for second troponin and would like to go home. To be discharged with instructions for increased GI medications to prevent recurrence of her symptoms. Quality:SDOH Health Related Social Needs: No Data to Display Sign Out Sign Out Data: Sign Out Comment: Monisha presented to the emergency department tonight for evaluation of sudden onset weakness, palpitations, and lightheadedness with standing. She was seen earlier today for pleuritic chest pain on the right side, reassuring cardiac workup. Tonight she has responded well to famotidine for the chest discomfort. Labs all reassuring, repeat troponin and covid/flu/rsv pending. Last updated by Karmen Cat at 07/25/23 23:27 Discharge Plan Discharge Details Chief Complaint: Abd Prob Primary Care Provider: Huyen Ramon ED Provider: Maulik Shipman Meds and New Rx's Prescriptions: No Action glucagon 3 mg/actuation spray,non-aerosol 3 mg intranasal ONCE Qty: 1 3RF Rx Instructions: as a single dose (DME) Scalp Hair Prosthesis See Rx Instructions .Route .MEDSUPPLY Qty: 1 1RF Rx Instructions: Wear as recommendended (DME) Hair Prosthesis See Rx Instructions .Route .MEDSUPPLY Qty: 1 1RF Rx Instructions: As fitted/recommended for daily wear lisinopril 5 mg tablet 5 mg PO BID Qty: 180 3RF Rx Instructions: Re-starting, trial daily x 1 week nystatin 100,000 unit/gram ointment 1 applic topical TID Qty: 30 1RF Rx Instructions: Apply to area of rash @ chest/abdomen cephalexin 500 mg capsule 1,000 mg PO TID 7 Days Qty: 42 0RF Rx Instructions: 500mg QID if unable to tolerate high-dose doxycycline hyclate 100 mg tablet 100 mg PO BID Qty: 14 0RF Rx Instructions: Start for possible osteomyelitis (DME) hair prosthesis See Rx Instructions .Route .MEDSUPPLY Qty: 1 1RF Rx Instructions: hair prosthesis for alopecia areata of scalp bariatric fusion chewable complete 2 tab tablet 2 100 ml PO DAILY (DME) glucometer See Rx Instructions .Route .MEDSUPPLY Qty: 1 0RF Rx Instructions: As directed to manage, prevent hypoglycemic episodes (DME) lancets [Comfort Lancets] [facility] See Rx Instructions .ROUTE .MEDSUPPLY Qty: 100 1RF Rx Instructions: As directed to check blood glucose daily. No insulin. Dispense covered brand. (DME) Blood Glucose Test Strip See Rx Instructions .ROUTE .MEDSUPPLY Qty: 350 3RF Rx Instructions: As directed to check blood glucose QID. No insulin. Dispense covered brand. acarbose 25 mg tablet 25 mg PO TID bupropion HCl [Wellbutrin XL] 300 mg tablet extended release 24 hr 300 mg PO DAILY Qty: 90 3RF ondansetron HCl 4 mg tablet 4 mg PO Q8H PRN (Reason: nausea and vomiting) Qty: 20 3RF Rx Instructions: Use carefully (Yearly EKG 2' QT/QTc warning) potassium chloride 20 mEq tablet extended release 20 meq PO PRN PRN (Reason: hypokalemia) Qty: 30 2RF Rx Instructions: taking prn per lab test cgc pramipexole 0.25 mg tablet 0.25 mg PO BID Qty: 180 3RF Rx Instructions: Take at lunch time and 1 hour prior to bedtime venlafaxine [Effexor XR] 37.5 mg capsule,extended release 24hr 75 mg PO DAILY Qty: 180 3RF (DME) FreeStyle Christopher 2 Sensor Kit See Rx Instructions .ROUTE .MEDSUPPLY Qty: 1 0RF Rx Instructions: As directed (DME) FreeStyle Christopher 2 [place] [facility] See Rx Instructions .ROUTE .MEDSUPPLY Qty: 1 0RF Rx Instructions: As directed hydrochlorothiazide 25 mg tablet 25 mg PO BID PRN (Reason: edema) Qty: 180 3RF Rx Instructions: PRN omeprazole 40 mg capsule,delayed release(DR/EC) 40 mg PO DAILY Qty: 90 3RF amiloride 5 mg tablet 5 mg PO BID Qty: 180 3RF Hold Instructions: until endocrine eval. Rx Instructions: Continue per Endocrine (07/2022+) gabapentin 800 mg tablet 800 mg PO BID Qty: 180 3RF Rx Instructions: Take at noon and 1 hour prior to bedtime for RLS (DME) Dexcom G7 Dental Detail Representative Misc See Rx Instructions .Route Qty: 1 1RF Rx Instructions: As directed to monitor blood glucose (DME) Dexcom G7 Sensor Device See Rx Instructions .Route Qty: 9 3RF Rx Instructions: As directed to monitor blood glucose tramadol 100 mg tablet 100 mg PO TID PRNQty: 21 0RF Bio-K plus 50 billion cell capsule,delayed release(DR/EC) 1 cap PO DAILY Qty: 10 0RF
== END 2023-07-26 00:35 | disposition home or self-care (01) ==
PROVIDERS: Nurse Practitioner Family; Emergency Provider Emergency Medicine Emergency Medical Services; PCP Student in an Organized Health Care Education/Training Program
DX: R10.9 Unspecified abdominal pain (principal); K21.00 Gastro-esophageal reflux disease with esophagitis, without bleeding
CPT/HCPCS: 00123; 80053; 87637; 93005; 96365; 99284; 83735; 83880; 84443; 84484; 85025; 93010; 99283

== ENCOUNTER 2023-07-27 12:35 | Outpatient (CLI) | payer OTHER, SELFPAY ==
[2023-07-27 10:59] LABS: HCT 36.2 % (36.0-46.0); HGB 12.1 g/dL (11.2-15.7); MCH 27.8 pg (27.0-33.0); MCHC 33.4 % (32.0-36.0); MCV 83 fL (80-95); MPV 8.5 fL (8.0-11.0); Platelet Count 496 10^3/uL (130-400); RBC 4.35 10^6/uL (3.93-5.22); RDW 15.8 % (11.7-14.6); RDW-SD 47.5 fL
[2023-07-27 11:24] LABS: Anion Gap 9.7 mmol/L (3-11); BUN 19 mg/dL (7-18); CO2 29.3 mmol/L (21.0-32.0); Calcium 9.8 mg/dL (8.5-10.1); Chloride 101 mmol/L (98-107); Estimated GFR 67.36 (mL/min/1.73m2); Glucose 91 mg/dL (74-106); Potassium 4.2 mmol/L (3.5-5.1); Sodium 140 mmol/L (136-145)
== END 2023-07-27 12:36 | disposition home or self-care (01) ==
LOC: LBO 12:35
PROVIDERS: PCP Student in an Organized Health Care Education/Training Program; Visit Provider Student in an Organized Health Care Education/Training Program
DX: L03.116 Cellulitis of left lower limb (principal); Z91.89 Other specified personal risk factors, not elsewhere classified
CPT/HCPCS: 36415; 80048; 85027

== ENCOUNTER 2023-07-30 18:19 | Outpatient (CLI) | payer OTHER, SELFPAY ==
[2023-07-30 11:34] LABS: HCT 38.6 % (36.0-46.0); HGB 12.7 g/dL (11.2-15.7); MCH 27.4 pg (27.0-33.0); MCHC 32.9 % (32.0-36.0); MCV 83 fL (80-95); Platelet Count 482 10^3/uL (130-400); RBC 4.63 10^6/uL (3.93-5.22); RDW 15.9 % (11.7-14.6); RDW-SD 48.6 fL; WBC 8.63 10^3/uL (4.4-10.8)
[2023-07-30 11:54] LABS: Anion Gap 11.7 mmol/L (3-11); BUN 20 mg/dL (7-18); CO2 25.3 mmol/L (21.0-32.0); CREATININE 1.1 mg/dL (0.55-1.02); Calcium 9.4 mg/dL (8.5-10.1); Chloride 101 mmol/L (98-107); Estimated GFR 60.08 (mL/min/1.73m2); Glucose 75 mg/dL (74-106); Magnesium 2.1 mg/dL (1.8-2.4); Potassium 3.8 mmol/L (3.5-5.1); Sodium 138 mmol/L (136-145)
== END 2023-07-30 18:20 | disposition home or self-care (01) ==
LOC: LBO 18:21
PROVIDERS: PCP Student in an Organized Health Care Education/Training Program; Visit Provider Student in an Organized Health Care Education/Training Program
DX: Z91.89 Other specified personal risk factors, not elsewhere classified (principal); L03.90 Cellulitis, unspecified; E78.6 Lipoprotein deficiency
CPT/HCPCS: 36415; 80048; 85027; 83735

== ENCOUNTER 2023-08-02 10:39 | Outpatient (CLI) | payer OTHER, SELFPAY ==
[2023-08-02 12:20] LABS: Abs Immature Grans 0.03 10^3/uL (0.0-0.06); Absolute Basophil Count 0.08 10^3/uL (0.0-0.2); Absolute Eosinophil Count 0.47 10^3/uL (0.0-0.7); Absolute Lymphocyte Count 4.06 10^3/uL (1.2-3.4); Absolute Monocyte Count 0.81 10^3/uL (0.1-0.8); Absolute Neutrophil Count 3.53 10^3/uL (1.2-6.7); Basophils % 0.9 %; Eosinophils % 5.2 %; HCT 37.7 % (36.0-46.0); HGB 12.2 g/dL (11.2-15.7); Immature Grans % 0.3 %; Lymphocytes % 45.2 %; MCH 27.9 pg (27.0-33.0); MCHC 32.4 % (32.0-36.0); MCV 86 fL (80-95); MPV 9.3 fL (8.0-11.0); Neutrophils % 39.4 %; Platelet Count 384 10^3/uL (130-400); RBC 4.38 10^6/uL (3.93-5.22); RDW 15.9 % (11.7-14.6); RDW-SD 49.9 fL; WBC 8.98 10^3/uL (4.4-10.8)
[2023-08-02 12:51] LABS: Hemoglobin A1C 6.1 % (<5.7)
[2023-08-02 12:52] LABS: ALT 32 U/L (14-59); AST 24 U/L (15-37); Albumin 3.5 g/dL (3.4-5.0); Alkaline Phosphatase 85 U/L (46-116); BUN 20 mg/dL (7-18); Bilirubin, Total 0.3 mg/dL (0.2-1.0); Calcium 9.2 mg/dL (8.5-10.1); Chloride 105 mmol/L (98-107); Estimated GFR 67.36 (mL/min/1.73m2); Glucose 69 mg/dL (74-106); Magnesium 1.9 mg/dL (1.8-2.4); Potassium 3.6 mmol/L (3.5-5.1); Sodium 144 mmol/L (136-145); Total Protein 7.3 g/dL (6.4-8.2)
== END 2023-08-02 10:40 | disposition home or self-care (01) ==
LOC: LBO 10:40
PROVIDERS: PCP Student in an Organized Health Care Education/Training Program; Visit Provider Student in an Organized Health Care Education/Training Program
DX: Z86.19 Personal history of other infectious and parasitic diseases (principal); L03.90 Cellulitis, unspecified; R68.89 Other general symptoms and signs; Z92.89 Personal history of other medical treatment; Z91.89 Other specified personal risk factors, not elsewhere classified; R73.09 Other abnormal glucose
CPT/HCPCS: 36415; 80053; 83036; 83735; 85025

== ENCOUNTER 2023-08-06 13:16 | Outpatient (CLI) | payer OTHER, SELFPAY ==
[2023-08-06 11:52] LABS: Abs Immature Grans 0.01 10^3/uL (0.0-0.06); Absolute Basophil Count 0.08 10^3/uL (0.0-0.2); Absolute Neutrophil Count 3.37 10^3/uL (1.2-6.7); Eosinophils % 4.8 %; HCT 36.6 % (36.0-46.0); HGB 12.1 g/dL (11.2-15.7); Immature Grans % 0.1 %; MCH 27.9 pg (27.0-33.0); MCHC 33.1 % (32.0-36.0); MCV 85 fL (80-95); MPV 9.1 fL (8.0-11.0); Monocytes % 7.3 %; Neutrophils % 40.8 %; Platelet Count 341 10^3/uL (130-400); RBC 4.33 10^6/uL (3.93-5.22); RDW 15.9 % (11.7-14.6); RDW-SD 48.9 fL; WBC 8.26 10^3/uL (4.4-10.8)
[2023-08-06 12:14] LABS: Anion Gap 9.4 mmol/L (3-11); BUN 21 mg/dL (7-18); CO2 29.6 mmol/L (21.0-32.0); Calcium 9.3 mg/dL (8.5-10.1); Chloride 104 mmol/L (98-107); Estimated GFR 67.36 (mL/min/1.73m2); Glucose 106 mg/dL (74-106); Magnesium 2.1 mg/dL (1.8-2.4); Sodium 143 mmol/L (136-145)
== END 2023-08-06 13:17 | disposition home or self-care (01) ==
LOC: LBO 13:17
PROVIDERS: PCP Student in an Organized Health Care Education/Training Program; Visit Provider Student in an Organized Health Care Education/Training Program
DX: L03.90 Cellulitis, unspecified (principal); Z86.19 Personal history of other infectious and parasitic diseases; D75.839 Thrombocytosis, unspecified; Z92.89 Personal history of other medical treatment; Z91.89 Other specified personal risk factors, not elsewhere classified; I10 Essential (primary) hypertension
CPT/HCPCS: 36415; 80048; 83735; 85025

== ENCOUNTER 2023-08-09 13:28 | Outpatient (CLI) | payer OTHER, SELFPAY ==
[2023-08-09 11:27] LABS: Abs Immature Grans 0.02 10^3/uL (0.0-0.06); Absolute Basophil Count 0.06 10^3/uL (0.0-0.2); Absolute Eosinophil Count 0.25 10^3/uL (0.0-0.7); Absolute Lymphocyte Count 3.87 10^3/uL (1.2-3.4); Absolute Monocyte Count 0.61 10^3/uL (0.1-0.8); Absolute Neutrophil Count 4.06 10^3/uL (1.2-6.7); Basophils % 0.7 %; Eosinophils % 2.8 %; HCT 37.2 % (36.0-46.0); HGB 12.2 g/dL (11.2-15.7); Immature Grans % 0.2 %; Lymphocytes % 43.6 %; MCH 27.9 pg (27.0-33.0); MCHC 32.8 % (32.0-36.0); MCV 85 fL (80-95); Monocytes % 6.9 %; Neutrophils % 45.8 %; Platelet Count 352 10^3/uL (130-400); RBC 4.38 10^6/uL (3.93-5.22); RDW 15.7 % (11.7-14.6); RDW-SD 48.5 fL; WBC 8.87 10^3/uL (4.4-10.8)
[2023-08-09 11:41] LABS: Anion Gap 8.4 mmol/L (3-11); BUN 19 mg/dL (7-18); CO2 30.6 mmol/L (21.0-32.0); Calcium 9.2 mg/dL (8.5-10.1); Chloride 101 mmol/L (98-107); Estimated GFR 67.36 (mL/min/1.73m2); Glucose 89 mg/dL (74-106); Potassium 3.5 mmol/L (3.5-5.1); Sodium 140 mmol/L (136-145)
[2023-08-09 14:38] LABS: Lab Add On Test DONE
== END 2023-08-09 13:29 | disposition home or self-care (01) ==
LOC: LBO 13:28
PROVIDERS: PCP Student in an Organized Health Care Education/Training Program; Visit Provider Student in an Organized Health Care Education/Training Program
DX: I10 Essential (primary) hypertension (principal); D75.839 Thrombocytosis, unspecified; R68.89 Other general symptoms and signs; Z86.39 Personal history of other endocrine, nutritional and metabolic disease; E83.42 Hypomagnesemia
CPT/HCPCS: 36415; 80048; 83735; 85025

== ENCOUNTER → 2023-08-14 04:05 | Outpatient (CLI) | payer OTHER, SELFPAY ==
--- NOTE | 2023-08-14 07:15 | DI.MRI_ITS ---
Exam(s) MR LOWER JOINT LT WO EXAM: MR LOWER JOINT LT WO CLINICAL HISTORY: eval distal LE, heels,H/O SEPSIS,CELLulitis lt lower leg,L03.116 TECHNIQUE: Multiplanar multisequence MRI was performed without intravenous contrast. COMPARISON: CT CT LOWER EXTREMITY LT W from 07/05/2023 MR MR LOWER JOINT RT WO from 08/14/2023 FINDINGS: SKIN/SUBCUTANEOUS: There is abundant subcutaneous edema on both sides the lower thigh and upper ankle . No evidence of skin ulcer nor subcutaneous tract. BONES/JOINTS: No evidence of fracture nor bone contusion. No intraosseous signal to suggest osteomye litis. There is no prominent joint effusion in the tibiotalar talar joint nor in the subtalar joint. The ta lar dome appears unremarkable. The ankle mortise is maintained. There is a sinus tarsi ganglion cys t which measures 3 cm AP by 2.5 cm wide by 3 cm craniocaudal. This comes out of the lateral aspect o f the sinus tarsi and courses subjacent to the lateral tendons in the dorsal extensor compartment. T here is preservation of fat signal within sinus tarsi as well as the inter osseous ligament. There are degenerative changes in the 2nd, 3rd and 4th tarsometatarsal joints. There are degenerativ e subarticular cysts in the bases of the 2nd, 3rd, and 4th metatarsals as well as some surrounding in traosseous edema. There is relative sparing of the 5th tarsometatarsal joint. Calcaneocuboid joint exhibits small amount of increased joint fluid but no obvious degenerative changes. Talonavicular ar ticulation appears unremarkable. LIGAMENTS: There is some attenuation of the anterior talofibular ligament thickness but no abnormal s ignal. Posterior talofibular ligament is intact. On the medial aspect of the ankle the deltoid liga ment appears intact. SINUS TARSI: There is no loss of the normal fat signal in this space. Interosseous ligament is intac t. The laterally located ganglion cyst described above appears to be coming from the lateral aspect of the sinus tarsi. ANTEROLATERAL GUTTER:There is no abnormal signal/abnormal tissue in this space. MUSCULOTENDINOUS STRUCTURES: Achilles tendon: Unremarkable. No evidence of tear nor tendinitis/tendinosis. Plantar fascia: Unremarkable. No evidence of tear, abnormal thickening, nor abnormal nodularity. Anterior Extensor tendons: Unremarkable. Medial Tendons: Posterior Tibialis: Unremarkable. No tear or tenosynovitis evident. Flexor Digitorum longus: Unremarkable. No tear or tenosynovitis evident. Flexor Hallicus longus: Unremarkable. No tear or tenosynovitis evident. Lateral Tendons: Peroneus longus: Unremarkable. No tear nor tenosynovitis evident. Peroneus brevis:Unremarkable. No tear nor tenosynovitis evident. SOFT TISSUES: Edema noted circumferentially in the distal calf and upper ankle. Does not appear to e xtend into the foot. OTHER FINDINGS: None. IMPRESSION: 1. There are significant degenerative changes in the 2nd, 3rd, and 4th tarsometatarsal joints. 2. Abundant subcutaneous edema seen in the partially visualized lower calf and around the upper ankle . Does not appear to extend into the foot. No evidence of osteomyelitis. 3. Ganglion cyst noted on the lateral aspect of the foot measuring 3 cm AP x 2.5 cm wide by 3 cm cran iocaudal. This appears to be coming from the lateral aspect of the sinus tarsi. There is no loss of normal fat signal within the sinus tarsi space. 4. No significant ligament tears nor tendon tears nor tenosynovitis. DATA REPOSITORY:
--- NOTE | 2023-08-14 07:15 | DI.MRI_ITS ---
Exam(s) MR LOWER JOINT RT WO EXAM: MR LOWER JOINT RT WO CLINICAL HISTORY: eval distal LE, heels,h/o sepsis,cellulitis lower leg,ankle cellulitis TECHNIQUE: Multiplanar multisequence MRI was performed without intravenous contrast. COMPARISON: MR MR LOWER JOINT LT WO from 08/14/2023 FINDINGS: SKIN/SUBCUTANEOUS: There is minimal if any significant subcutaneous edema in the distal calf-proximal ankle, this being significantly more prominent on the opposite-left side. However, there is also a ganglion cyst on the lateral aspect of the ankle in similar fashion to the opposite side appearing to come off of the lateral aspect of the sinus tarsi and measuring 2.5 cm AP by 1 cm wide by 2.3 cm jet aircraft servicer niocaudal. Slightly smaller than the opposite side. BONES/JOINTS: No evidence of fracture or bone contusion. No intraosseous signal to suggest osteomyel itis. There is no tibiotalar joint effusion. The talar dome appears unremarkable. The ankle morti se is maintained. There is no evidence of osseous tarsal coalition. More distally there is significant degenerative change evident in the 2nd, 3rd, and 4th tarsometatars al joints, most prominent in the 2nd tarsometatarsal joint where there are degenerative subarticular cysts on both sides the joint as well as bone edema. LIGAMENTS: The anterior and posterior tibiofibular and calcaneofibular ligaments are intact. The ante rior and posterior talofibular ligaments are intact. The deltoid ligament is intact. SINUS TARSI: Fat signal within the spaces preserved as is the inter osseous ligament. Ganglion cyst as described above which comes off the lateral aspect of the space. ANTEROLATERAL GUTTER:There is no abnormal signal/abnormal tissue in this space. MUSCULOTENDINOUS STRUCTURES: Achilles tendon: Unremarkable. No evidence of tear nor tendinitis/tendinosis. Plantar fascia: Unremarkable. No evidence of tear, abnormal thickening, nor abnormal nodularity. Anterior Extensor tendons: Unremarkable. Medial Tendons: Posterior Tibialis: Unremarkable. No tear or tenosynovitis evident. Flexor Digitorum longus: Unremarkable. No tear or tenosynovitis evident. Flexor Hallicus longus: Unremarkable. No tear or tenosynovitis evident. Lateral Tendons: Peroneus longus: Unremarkable. No tear nor tenosynovitis evident. Peroneus brevis:Unremarkable. No tear nor tenosynovitis evident. OTHER FINDINGS: None. IMPRESSION: 1. Although there is less edema in the distal calf on this side, there are similar findings in the an kle and partially visualize foot when compared to the opposite side including a laterally located sin us tarsi ganglion cyst (which is slightly smaller than the opposite side) and there is also significa nt degenerative change in the 2nd, 3rd, and 4th tarsometatarsal joints. DATA REPOSITORY:
== END ==
PROVIDERS: PCP Student in an Organized Health Care Education/Training Program; Visit Provider Student in an Organized Health Care Education/Training Program
DX: Z86.19 Personal history of other infectious and parasitic diseases (principal); L03.116 Cellulitis of left lower limb; L84 Corns and callosities
CPT/HCPCS: 73721

== ENCOUNTER → 2023-08-15 04:11 | Outpatient (CLI) | payer OTHER, SELFPAY ==
--- NOTE | 2023-08-15 07:30 | DI.US_ITS ---
APPROVED REPORT EXAM: Comprehensive 2D, Doppler, and color-flow Echocardiogram Patient Location: Out-Patient Extension Service Advisor: Abbie Fowler RDCS (AE) Indications: Evaluate heart function, valves, edema, HTN, h/o Tachycardia, h/o endocarditis Other Information Study Quality: Adequate Conclusion Normal left ventricular wall thickness and chamber size. Ejection fraction is 59%. Wall motion is n ormal Normal right ventricular size and function Both atria are normal in size There is no structural or hemodynamically significant valvular disease Ascending aorta measures 3.84 cm Wall motion Left Ventricle The left ventricle is normal size. The left ventricular systolic function is normal. The left ventric ular ejection fraction is within the normal range. There is normal left ventricular wall thickness. T here is normal LV segmental wall motion. There is no ventricular septal defect visualized. LVEF is 59 %. Right Ventricle The right ventricle is normal size. The right ventricular systolic function is normal. Atria The left atrium size is normal. The right atrium size is normal. Aortic Valve The aortic valve is normal in structure. Aortic valve is trileaflet. There is no aortic valvular sten osis. No aortic regurgitation is present. Mitral Valve The mitral valve is normal in structure. No evidence of mitral valve stenosis. Trace mitral regurgita tion. Tricuspid Valve The tricuspid valve is normal in structure. There is no tricuspid valve stenosis. Trace tricuspid reg urgitation. Unable to assess PA pressure. Pulmonic Valve The pulmonary valve is normal in structure. There is no pulmonic valvular stenosis. There is no pulmo pacheco valvular regurgitation. Great Vessels The aortic root is normal in size. The ascending aorta is mildly dilated. Aortic arch is normal in ca liber. IVC is normal in size and collapses >50% with inspiration. Pericardium There is no pericardial effusion. 2D Dimensions IVSD d PLAX 1.02 cm F: 0.6-1.0 Ao Root d 3.17 cm F: 2.7 - 3.3 LVPW d PLAX 1.00 cm F: 0.6 - 1.0 Ao Asc Diam d 3.84 cm F: 2.3 - 3.1 LVID d PLAX 4.46 cm F: 3.8 - 5.2 LVDs 3.07 cm F: 2.2 - 3.5 LV EF Teichholz 58.8 % FS 30.99 % LV EDV (Teich) 90.3 mL LV ESV (Teich) 37.2 mL M-Mode TAPSE 2.21 cm (M/F) >1.7 Auto EF LV EDV A4C 99.0 mL LV EDV A2C 91.5 mL LV EDV BP 95.9 mL LV ESV A4C 41.3 mL LV ESV A2C 38.1 mL LV ESV BP 39.4 mL LVEF(%) A4C 58.3 % LVEF(%) A2C 58.4 % LVEF(%) BP 58.9 % LV SV A4C 57.7 ml LV SV A2C 53.4 ml LV SV BP 56.4 ml LV CO A4C 4.2 L/min LV CO A2C 4.1 L/min LV CO BP 4.2 L/min HR A4C 72.73 BPM HR A2C 77.09 BPM LV EDV Index (BP) LA Volume LA Length A4C 4.7 cm LA Length A2C 5.2 cm LA Area A4C s 14.30 cm2 LA Area A2C s 14.98 cm2 LA Vol A4C A-L 36.64 mL LA Vol A2C A-L 36.39 mL LA Vol Biplane A-L 38.4 mL LA Vol/BSA A4C A-L LA Vol/BSA A2C A-L LA Vol/BSA BP A-L 19.8 mL/m2 LA Vol A4C MOD 34.6 mL LA Vol A2C MOD 33.9 mL LA Vol BP MOD 35.9 mL RA Volume RA Area A4C 14.2 cm2 RA ESV A4C (A-L) 32.1mL RA Vol/BSA A4C A-L RA Length A4C 5.4 cm RA ESV A4C (MOD) 31.3mL LV Diastology MV E' medial 0.070 (>0.07 m/s) MV E Vmax 0.63 (0.4-1.3 m/s) MV E/E' MED 9.02 (<14) MV A Vmax 0.85 (0.4-1.3 m/s) MV E' lateral 0.072 (>0.1 m/s) E/A Ratio 0.7 MV E/E' LAT 8.79 (<14) MV E' Average 0.071 m/s MV E/E'(average) 8.90 Aortic Valve AoV Vmax 1.67 m/s LVOT Vmax 1.19 m/s AoV Peak Grad 11.1 mmHg LVOT Peak Grad 5.6 mmHg AoV Area (Vmax) 2.28 cm2 LVOT VTI 0.268 m AoV VTI 0.334 m LVOT Mean Grad 2.7 mmHg AoV Mean Fantasma. 1.15 m/s LVOT SV 85.48 mL AoV Mean Grad 6.1 mmHg LVOT Diam s 2.00 cm AoV Area (VTI) 2.56 cm2 Velocity Ratio 0.71 Mitral Valve MV DT 179 (160-240 msec) MV Vmax TIPS 0.99 m/s MV Mean Grad 1.7 (<2mmHg) MV VTI 0.217 m Pulmonary Valve PV Vmax 0.90 (0.5-1.5 m/s) RVOT Vmax 0.79 m/s PV Peak Grad 3.2 mmHg RVOT Peak Gr. 2.5 mmHg PV Mean Fantasma 0.67 m/s RVOT VTI 0.177 m PV Mean Grad 2.0 mmHg RVOT Mean Gr. 1.6 mmHg Tricuspid Valve RA Pressure 3.00 mmHg TV S' 0.15 m/s
== END ==
PROVIDERS: PCP Student in an Organized Health Care Education/Training Program; Visit Provider Student in an Organized Health Care Education/Training Program
DX: R60.9 Edema, unspecified (principal); I10 Essential (primary) hypertension; Z86.79 Personal history of other diseases of the circulatory system; I34.0 Nonrheumatic mitral (valve) insufficiency; I36.1 Nonrheumatic tricuspid (valve) insufficiency
CPT/HCPCS: 93306

== ENCOUNTER 2023-08-16 09:36 | Outpatient (CLI) | payer OTHER, SELFPAY ==
[2023-08-16 09:27] LABS: Anion Gap 10.7 mmol/L (3-11); BUN 17 mg/dL (7-18); CO2 29.3 mmol/L (21.0-32.0); Calcium 9.4 mg/dL (8.5-10.1); Chloride 103 mmol/L (98-107); Estimated GFR 67.36 (mL/min/1.73m2); Glucose 95 mg/dL (74-106); Magnesium 1.9 mg/dL (1.8-2.4); Potassium 3.7 mmol/L (3.5-5.1); Sodium 143 mmol/L (136-145)
[2023-08-16 13:07] LABS: Abs Immature Grans 0.02 10^3/uL (0.0-0.06); Absolute Basophil Count 0.06 10^3/uL (0.0-0.2); Absolute Eosinophil Count 0.34 10^3/uL (0.0-0.7); Absolute Lymphocyte Count 3.33 10^3/uL (1.2-3.4); Absolute Monocyte Count 0.75 10^3/uL (0.1-0.8); Absolute Neutrophil Count 6.55 10^3/uL (1.2-6.7); Basophils % 0.5 %; Eosinophils % 3.1 %; HCT 36.7 % (36.0-46.0); HGB 11.9 g/dL (11.2-15.7); Immature Grans % 0.2 %; Lymphocytes % 30.1 %; MCH 27.5 pg (27.0-33.0); MCHC 32.4 % (32.0-36.0); MCV 85 fL (80-95); MPV 9.3 fL (8.0-11.0); Monocytes % 6.8 %; Neutrophils % 59.3 %; Platelet Count 452 10^3/uL (130-400); RBC 4.33 10^6/uL (3.93-5.22); RDW 15.4 % (11.7-14.6); RDW-SD 48.2 fL; WBC 11.05 10^3/uL (4.4-10.8)
== END 2023-08-16 09:37 | disposition home or self-care (01) ==
LOC: LBO 09:36
PROVIDERS: PCP Student in an Organized Health Care Education/Training Program; Visit Provider Student in an Organized Health Care Education/Training Program
DX: B99.9 Unspecified infectious disease (principal)
CPT/HCPCS: 36415; 80048; 83735; 85025

== ENCOUNTER 2023-08-17 15:54 | Outpatient (REF) | payer OTHER, SELFPAY | END 2023-08-17 15:55 | disposition home or self-care (01) | LOC: LBN 15:54 | PROVIDERS: PCP Student in an Organized Health Care Education/Training Program; Visit Provider Obstetrics & Gynecology | DX: N94.9 Unspecified condition associated with female genital organs and menstrual cycle (principal); R30.0 Dysuria | CPT/HCPCS: 87086; 87480; 87510; 87660 ==

== ENCOUNTER 2023-08-20 12:08 | Outpatient (CLI) | payer OTHER, SELFPAY ==
[2023-08-20 09:57] LABS: Abs Immature Grans 0.02 10^3/uL (0.0-0.06); Absolute Basophil Count 0.08 10^3/uL (0.0-0.2); Absolute Lymphocyte Count 3.34 10^3/uL (1.2-3.4); Absolute Monocyte Count 0.56 10^3/uL (0.1-0.8); Absolute Neutrophil Count 3.38 10^3/uL (1.2-6.7); Eosinophils % 5.1 %; HCT 36.3 % (36.0-46.0); HGB 11.9 g/dL (11.2-15.7); Immature Grans % 0.3 %; Lymphocytes % 42.9 %; MCH 27.5 pg (27.0-33.0); MCHC 32.8 % (32.0-36.0); MCV 84 fL (80-95); MPV 8.9 fL (8.0-11.0); Monocytes % 7.2 %; Neutrophils % 43.5 %; Platelet Count 438 10^3/uL (130-400); RBC 4.33 10^6/uL (3.93-5.22); RDW 15.2 % (11.7-14.6); RDW-SD 46.6 fL; WBC 7.78 10^3/uL (4.4-10.8)
[2023-08-20 10:14] LABS: Anion Gap 7.7 mmol/L (3-11); BUN 20 mg/dL (7-18); CO2 30.3 mmol/L (21.0-32.0); Calcium 9.4 mg/dL (8.5-10.1); Chloride 102 mmol/L (98-107); Estimated GFR 67.36 (mL/min/1.73m2); Glucose 100 mg/dL (74-106); Potassium 3.6 mmol/L (3.5-5.1); Sodium 140 mmol/L (136-145)
== END 2023-08-20 12:09 | disposition home or self-care (01) ==
LOC: LBO 12:09
PROVIDERS: PCP Student in an Organized Health Care Education/Training Program; Visit Provider Student in an Organized Health Care Education/Training Program
DX: D75.839 Thrombocytosis, unspecified (principal); R68.89 Other general symptoms and signs; Z91.89 Other specified personal risk factors, not elsewhere classified
CPT/HCPCS: 36415; 80048; 83735; 85025

== ENCOUNTER 2023-08-28 10:26 | Outpatient (CLI) | payer OTHER, SELFPAY ==
[2023-08-28 09:07] LABS: Abs Immature Grans 0.01 10^3/uL (0.0-0.06); Absolute Basophil Count 0.08 10^3/uL (0.0-0.2); Absolute Eosinophil Count 0.36 10^3/uL (0.0-0.7); Absolute Lymphocyte Count 3.27 10^3/uL (1.2-3.4); Absolute Neutrophil Count 4.07 10^3/uL (1.2-6.7); Eosinophils % 4.3 %; HCT 38.2 % (36.0-46.0); HGB 12.6 g/dL (11.2-15.7); Immature Grans % 0.1 %; MCH 27.6 pg (27.0-33.0); MCV 84 fL (80-95); MPV 8.9 fL (8.0-11.0); Monocytes % 7.2 %; Neutrophils % 48.4 %; Platelet Count 463 10^3/uL (130-400); RBC 4.56 10^6/uL (3.93-5.22); RDW 14.7 % (11.7-14.6); WBC 8.39 10^3/uL (4.4-10.8)
[2023-08-28 10:13] LABS: Anion Gap 10.8 mmol/L (3-11); BUN 15 mg/dL (7-18); CO2 29.2 mmol/L (21.0-32.0); Calcium 9.3 mg/dL (8.5-10.1); Chloride 102 mmol/L (98-107); Estimated GFR 67.36 (mL/min/1.73m2); Glucose 103 mg/dL (74-106); Magnesium 1.9 mg/dL (1.8-2.4); Potassium 3.2 mmol/L (3.5-5.1); Sodium 142 mmol/L (136-145)
== END 2023-08-28 10:27 | disposition home or self-care (01) ==
LOC: LBO 10:27
PROVIDERS: PCP Student in an Organized Health Care Education/Training Program; Visit Provider Student in an Organized Health Care Education/Training Program
DX: D75.839 Thrombocytosis, unspecified (principal); R68.89 Other general symptoms and signs; Z91.89 Other specified personal risk factors, not elsewhere classified
CPT/HCPCS: 36415; 80048; 83735; 85025

== ENCOUNTER 2023-09-06 14:55 | Outpatient (CLI) | payer OTHER, SELFPAY ==
[2023-09-06 13:57] LABS: Abs Immature Grans 0.01 10^3/uL (0.0-0.06); Absolute Basophil Count 0.07 10^3/uL (0.0-0.2); Absolute Eosinophil Count 0.32 10^3/uL (0.0-0.7); Absolute Lymphocyte Count 3.83 10^3/uL (1.2-3.4); Absolute Monocyte Count 0.62 10^3/uL (0.1-0.8); Absolute Neutrophil Count 4.16 10^3/uL (1.2-6.7); Basophils % 0.8 %; Eosinophils % 3.6 %; HGB 11.7 g/dL (11.2-15.7); Immature Grans % 0.1 %; Lymphocytes % 42.5 %; MCH 27.3 pg (27.0-33.0); MCHC 33.4 % (32.0-36.0); MCV 82 fL (80-95); MPV 9.3 fL (8.0-11.0); Monocytes % 6.9 %; Neutrophils % 46.1 %; Platelet Count 424 10^3/uL (130-400); RBC 4.29 10^6/uL (3.93-5.22); RDW 14.4 % (11.7-14.6); RDW-SD 42.6 fL; WBC 9.01 10^3/uL (4.4-10.8)
[2023-09-06 14:34] LABS: Anion Gap 6.9 mmol/L (3-11); BUN 19 mg/dL (7-18); CO2 31.1 mmol/L (21.0-32.0); Calcium 9.2 mg/dL (8.5-10.1); Chloride 103 mmol/L (98-107); Estimated GFR 67.36 (mL/min/1.73m2); Glucose 99 mg/dL (74-106); Magnesium 2.1 mg/dL (1.8-2.4); Potassium 3.4 mmol/L (3.5-5.1); Sodium 141 mmol/L (136-145)
== END 2023-09-06 14:56 | disposition home or self-care (01) ==
LOC: LBO 14:55
PROVIDERS: PCP Student in an Organized Health Care Education/Training Program; Visit Provider Student in an Organized Health Care Education/Training Program
DX: E87.6 Hypokalemia (principal)
CPT/HCPCS: 36415; 80048; 83735; 85025

== ENCOUNTER 2023-09-12 11:40 | Outpatient (CLI) | payer OTHER, SELFPAY ==
[2023-09-12 12:24] LABS: Abs Immature Grans 0.01 10^3/uL (0.0-0.06); Absolute Basophil Count 0.06 10^3/uL (0.0-0.2); Absolute Eosinophil Count 0.28 10^3/uL (0.0-0.7); Absolute Lymphocyte Count 4.06 10^3/uL (1.2-3.4); Absolute Monocyte Count 0.72 10^3/uL (0.1-0.8); Absolute Neutrophil Count 4.38 10^3/uL (1.2-6.7); Basophils % 0.6 %; Eosinophils % 2.9 %; HGB 12.7 g/dL (11.2-15.7); Immature Grans % 0.1 %; Lymphocytes % 42.7 %; MCH 26.8 pg (27.0-33.0); MCHC 32.6 % (32.0-36.0); MCV 83 fL (80-95); MPV 9.3 fL (8.0-11.0); Monocytes % 7.6 %; Neutrophils % 46.1 %; Platelet Count 507 10^3/uL (130-400); RBC 4.73 10^6/uL (3.93-5.22); RDW 14.2 % (11.7-14.6); RDW-SD 43.2 fL; WBC 9.51 10^3/uL (4.4-10.8)
[2023-09-12 12:58] LABS: Anion Gap 9.2 mmol/L (3-11); BUN 19 mg/dL (7-18); CO2 29.8 mmol/L (21.0-32.0); Calcium 9.6 mg/dL (8.5-10.1); Chloride 99 mmol/L (98-107); Estimated GFR 67.36 (mL/min/1.73m2); Ferritin 11 ng/mL (8-252); Glucose 114 mg/dL (74-106); Potassium 3.6 mmol/L (3.5-5.1); Sodium 138 mmol/L (136-145)
== END 2023-09-12 11:41 | disposition home or self-care (01) ==
LOC: LBO 11:40
PROVIDERS: Psychiatry & Neurology Neurology; PCP Student in an Organized Health Care Education/Training Program; Visit Provider Student in an Organized Health Care Education/Training Program
DX: G25.81 Restless legs syndrome (principal); G43.109 Migraine with aura, not intractable, without status migrainosus; D64.9 Anemia, unspecified
CPT/HCPCS: 36415; 80048; 82728; 83735; 85025

== ENCOUNTER 2023-09-20 13:27 | Outpatient (CLI) | payer OTHER, SELFPAY ==
[2023-09-20 11:25] LABS: Abs Immature Grans 0.02 10^3/uL (0.0-0.06); Absolute Basophil Count 0.07 10^3/uL (0.0-0.2); Absolute Eosinophil Count 0.32 10^3/uL (0.0-0.7); Absolute Monocyte Count 0.71 10^3/uL (0.1-0.8); Absolute Neutrophil Count 4.54 10^3/uL (1.2-6.7); Basophils % 0.8 %; Eosinophils % 3.5 %; HCT 35.7 % (36.0-46.0); HGB 11.8 g/dL (11.2-15.7); Immature Grans % 0.2 %; Lymphocytes % 38.2 %; MCH 27.3 pg (27.0-33.0); MCHC 33.1 % (32.0-36.0); MCV 82 fL (80-95); Monocytes % 7.8 %; Neutrophils % 49.5 %; Platelet Count 472 10^3/uL (130-400); RBC 4.33 10^6/uL (3.93-5.22); RDW 14.2 % (11.7-14.6); RDW-SD 42.2 fL; WBC 9.16 10^3/uL (4.4-10.8)
[2023-09-20 12:09] LABS: Anion Gap 8.1 mmol/L (3-11); BUN 17 mg/dL (7-18); CO2 29.9 mmol/L (21.0-32.0); Calcium 9.2 mg/dL (8.5-10.1); Chloride 102 mmol/L (98-107); Estimated GFR 67.36 (mL/min/1.73m2); Glucose 113 mg/dL (74-106); Magnesium 1.9 mg/dL (1.8-2.4); Potassium 3.2 mmol/L (3.5-5.1); Sodium 140 mmol/L (136-145)
== END 2023-09-20 13:28 | disposition home or self-care (01) ==
LOC: LBO 13:28
PROVIDERS: PCP Student in an Organized Health Care Education/Training Program; Visit Provider Student in an Organized Health Care Education/Training Program
DX: D75.839 Thrombocytosis, unspecified (principal); D72.829 Elevated white blood cell count, unspecified; N17.9 Acute kidney failure, unspecified; E87.6 Hypokalemia; E83.42 Hypomagnesemia
CPT/HCPCS: 36415; 80048; 83735; 85025

== ENCOUNTER 2023-09-26 01:15 | Outpatient (RCR) | payer OTHER, SELFPAY ==
[2023-09-18] MEDS: IRON SUCROSE COMPLEX 200 MG in Normal Saline 100 ML 440 MG IVPB (10:16)
[2023-09-18] MEDS: Normal Saline Flush 10 ML SYR IVP (10:18)
[2023-09-26] MEDS: IRON SUCROSE COMPLEX 200 MG in Normal Saline 100 ML 440 MG IVPB (07:42)
[2023-09-26] MEDS: Normal Saline Flush 10 ML SYR IVP (07:42)
== END 2023-09-30 23:59 | disposition home or self-care (01) ==
LOC: INF 01:15
PROVIDERS: PCP Student in an Organized Health Care Education/Training Program; Visit Provider Psychiatry & Neurology Neurology
DX: D50.9 Iron deficiency anemia, unspecified (principal)
CPT/HCPCS: 96365; J1756

== ENCOUNTER 2023-10-02 02:42 | Outpatient (RCR) | payer OTHER, SELFPAY ==
[2023-10-02] MEDS: Normal Saline Flush 10 ML SYR IVP (07:18)
[2023-10-02] MEDS: IRON SUCROSE COMPLEX 200 MG in Normal Saline 100 ML 440 MG IVPB (07:18)
== END 2023-10-31 23:59 | disposition home or self-care (01) ==
LOC: INF 02:42
PROVIDERS: PCP Student in an Organized Health Care Education/Training Program; Visit Provider Psychiatry & Neurology Neurology
DX: D50.9 Iron deficiency anemia, unspecified (principal)
CPT/HCPCS: 96365; J1756

== ENCOUNTER 2023-10-03 12:15 | Outpatient (CLI) | payer OTHER, SELFPAY ==
[2023-10-03 12:27] LABS: Abs Immature Grans 0.02 10^3/uL (0.0-0.06); Absolute Basophil Count 0.06 10^3/uL (0.0-0.2); Absolute Eosinophil Count 0.26 10^3/uL (0.0-0.7); Absolute Lymphocyte Count 3.83 10^3/uL (1.2-3.4); Absolute Monocyte Count 0.69 10^3/uL (0.1-0.8); Absolute Neutrophil Count 3.71 10^3/uL (1.2-6.7); Basophils % 0.7 %; HGB 12.8 g/dL (11.2-15.7); Immature Grans % 0.2 %; Lymphocytes % 44.7 %; MCH 27.2 pg (27.0-33.0); MCHC 32.8 % (32.0-36.0); MCV 83 fL (80-95); MPV 9.2 fL (8.0-11.0); Monocytes % 8.1 %; Neutrophils % 43.3 %; Platelet Count 432 10^3/uL (130-400); RBC 4.71 10^6/uL (3.93-5.22); RDW 15.6 % (11.7-14.6); RDW-SD 47.1 fL; WBC 8.57 10^3/uL (4.4-10.8)
[2023-10-03 13:06] LABS: Anion Gap 9.5 mmol/L (3-11); BUN 19 mg/dL (7-18); CO2 30.5 mmol/L (21.0-32.0); Calcium 9.5 mg/dL (8.5-10.1); Chloride 102 mmol/L (98-107); Estimated GFR 67.36 (mL/min/1.73m2); Glucose 105 mg/dL (74-106); Magnesium 2.1 mg/dL (1.8-2.4); Potassium 3.5 mmol/L (3.5-5.1); Sodium 142 mmol/L (136-145)
== END 2023-10-03 12:16 | disposition home or self-care (01) ==
LOC: LBO 12:15
PROVIDERS: PCP Student in an Organized Health Care Education/Training Program; Visit Provider Student in an Organized Health Care Education/Training Program
DX: R50.9 Fever, unspecified (principal); R50.81 Fever presenting with conditions classified elsewhere; R60.9 Edema, unspecified; D72.829 Elevated white blood cell count, unspecified; D75.838 Other thrombocytosis
CPT/HCPCS: 36415; 80048; 83735; 85025

== ENCOUNTER 2023-10-12 10:26 | Outpatient (CLI) | payer OTHER, SELFPAY ==
[2023-10-12 07:55] LABS: Abs Immature Grans 0.05 10^3/uL (0.0-0.06); Absolute Basophil Count 0.06 10^3/uL (0.0-0.2); Absolute Lymphocyte Count 3.91 10^3/uL (1.2-3.4); Absolute Monocyte Count 0.75 10^3/uL (0.1-0.8); Absolute Neutrophil Count 5.62 10^3/uL (1.2-6.7); Basophils % 0.6 %; Eosinophils % 1.9 %; HCT 39.7 % (36.0-46.0); HGB 13.3 g/dL (11.2-15.7); Immature Grans % 0.5 %; Lymphocytes % 36.9 %; MCH 27.7 pg (27.0-33.0); MCHC 33.5 % (32.0-36.0); MCV 83 fL (80-95); MPV 9.5 fL (8.0-11.0); Monocytes % 7.1 %; Platelet Count 392 10^3/uL (130-400); RDW 15.8 % (11.7-14.6); RDW-SD 47.5 fL; WBC 10.59 10^3/uL (4.4-10.8)
[2023-10-12 08:52] LABS: Anion Gap 5.7 mmol/L (3-11); BUN 24 mg/dL (7-18); CO2 33.3 mmol/L (21.0-32.0); Calcium 9.5 mg/dL (8.5-10.1); Chloride 100 mmol/L (98-107); Estimated GFR 67.36 (mL/min/1.73m2); Glucose 149 mg/dL (74-106); Magnesium 2.1 mg/dL (1.8-2.4); Potassium 3.1 mmol/L (3.5-5.1); Sodium 139 mmol/L (136-145)
== END 2023-10-12 10:27 | disposition home or self-care (01) ==
PROVIDERS: PCP Student in an Organized Health Care Education/Training Program; Visit Provider Student in an Organized Health Care Education/Training Program
DX: D72.828 Other elevated white blood cell count (principal); D75.838 Other thrombocytosis
CPT/HCPCS: 36415; 80048; 83735; 85025

== ENCOUNTER 2023-10-15 12:16 | Outpatient (CLI) | payer OTHER, SELFPAY ==
[2023-10-15 11:33] LABS: Abs Immature Grans 0.03 10^3/uL (0.0-0.06); Absolute Basophil Count 0.07 10^3/uL (0.0-0.2); Absolute Eosinophil Count 0.26 10^3/uL (0.0-0.7); Absolute Lymphocyte Count 3.38 10^3/uL (1.2-3.4); Absolute Monocyte Count 0.67 10^3/uL (0.1-0.8); Absolute Neutrophil Count 5.76 10^3/uL (1.2-6.7); Basophils % 0.7 %; Eosinophils % 2.6 %; HCT 41.3 % (36.0-46.0); HGB 13.6 g/dL (11.2-15.7); Immature Grans % 0.3 %; Lymphocytes % 33.2 %; MCH 27.3 pg (27.0-33.0); MCHC 32.9 % (32.0-36.0); MCV 83 fL (80-95); MPV 9.5 fL (8.0-11.0); Monocytes % 6.6 %; Neutrophils % 56.6 %; Platelet Count 397 10^3/uL (130-400); RBC 4.98 10^6/uL (3.93-5.22); RDW 15.7 % (11.7-14.6); RDW-SD 47.3 fL; WBC 10.17 10^3/uL (4.4-10.8)
[2023-10-15 12:05] LABS: Anion Gap 10.3 mmol/L (3-11); BUN 19 mg/dL (7-18); CO2 28.7 mmol/L (21.0-32.0); CREATININE 1.1 mg/dL (0.55-1.02); Calcium 9.3 mg/dL (8.5-10.1); Chloride 99 mmol/L (98-107); Estimated GFR 60.08 (mL/min/1.73m2); Glucose 127 mg/dL (74-106); Sodium 138 mmol/L (136-145)
[2023-10-15 12:07] LABS: Potassium 2.8 mmol/L (3.5-5.1)
== END 2023-10-15 12:17 | disposition home or self-care (01) ==
LOC: LBO 12:17
PROVIDERS: PCP Student in an Organized Health Care Education/Training Program; Visit Provider Student in an Organized Health Care Education/Training Program
DX: D75.838 Other thrombocytosis (principal); D72.828 Other elevated white blood cell count
CPT/HCPCS: 36415; 80048; 83735; 85025

== ENCOUNTER 2023-10-18 13:07 | Outpatient (CLI) | payer OTHER, SELFPAY ==
[2023-10-18 13:45] LABS: Potassium 3.6 mmol/L (3.5-5.1)
== END 2023-10-18 13:08 | disposition home or self-care (01) ==
LOC: LBO 13:07
PROVIDERS: PCP Student in an Organized Health Care Education/Training Program; Visit Provider Student in an Organized Health Care Education/Training Program
DX: E87.6 Hypokalemia (principal)
CPT/HCPCS: 36415; 84132

== ENCOUNTER 2023-10-23 12:53 | Outpatient (CLI) | payer OTHER, SELFPAY ==
[2023-10-23 13:05] LABS: Abs Immature Grans 0.02 10^3/uL (0.0-0.06); Absolute Basophil Count 0.08 10^3/uL (0.0-0.2); Absolute Lymphocyte Count 3.97 10^3/uL (1.2-3.4); Absolute Monocyte Count 0.75 10^3/uL (0.1-0.8); Absolute Neutrophil Count 5.97 10^3/uL (1.2-6.7); Basophils % 0.7 %; Eosinophils % 2.4 %; HGB 12.8 g/dL (11.2-15.7); Immature Grans % 0.2 %; Lymphocytes % 35.9 %; MCH 27.4 pg (27.0-33.0); MCHC 32.8 % (32.0-36.0); MCV 83 fL (80-95); MPV 9.4 fL (8.0-11.0); Monocytes % 6.8 %; Platelet Count 413 10^3/uL (130-400); RBC 4.68 10^6/uL (3.93-5.22); RDW 15.8 % (11.7-14.6); RDW-SD 47.8 fL; WBC 11.05 10^3/uL (4.4-10.8)
[2023-10-23 13:07] LABS: Absolute Eosinophil Count 0.27 10^3/uL (0.0-0.7)
[2023-10-23 13:25] LABS: Anion Gap 9.6 mmol/L (3-11); BUN 16 mg/dL (7-18); CO2 29.4 mmol/L (21.0-32.0); CREATININE 0.9 mg/dL (0.55-1.02); Chloride 101 mmol/L (98-107); Estimated GFR 76.44 (mL/min/1.73m2); Glucose 103 mg/dL (74-106); Magnesium 1.8 mg/dL (1.8-2.4); Sodium 140 mmol/L (136-145)
== END 2023-10-23 12:54 | disposition home or self-care (01) ==
LOC: LBO 12:54
PROVIDERS: PCP Student in an Organized Health Care Education/Training Program; Visit Provider Student in an Organized Health Care Education/Training Program
DX: D75.82 Heparin induced thrombocytopenia (HIT) (principal)
CPT/HCPCS: 36415; 80048; 83735; 85025

== ENCOUNTER 2023-10-29 13:30 | Outpatient (CLI) | payer OTHER, SELFPAY ==
[2023-10-29 13:01] LABS: Abs Immature Grans 0.01 10^3/uL (0.0-0.06); Absolute Basophil Count 0.05 10^3/uL (0.0-0.2); Absolute Eosinophil Count 0.25 10^3/uL (0.0-0.7); Absolute Lymphocyte Count 3.78 10^3/uL (1.2-3.4); Absolute Monocyte Count 0.65 10^3/uL (0.1-0.8); Absolute Neutrophil Count 4.22 10^3/uL (1.2-6.7); Basophils % 0.6 %; Eosinophils % 2.8 %; HCT 39.1 % (36.0-46.0); Immature Grans % 0.1 %; Lymphocytes % 42.2 %; MCH 27.8 pg (27.0-33.0); MCHC 33.2 % (32.0-36.0); MCV 84 fL (80-95); MPV 9.3 fL (8.0-11.0); Monocytes % 7.3 %; Platelet Count 365 10^3/uL (130-400); RBC 4.67 10^6/uL (3.93-5.22); RDW-SD 49.2 fL; WBC 8.96 10^3/uL (4.4-10.8)
[2023-10-29 13:47] LABS: Anion Gap 10.2 mmol/L (3-11); BUN 15 mg/dL (7-18); CO2 29.8 mmol/L (21.0-32.0); CREATININE 1.1 mg/dL (0.55-1.02); Chloride 103 mmol/L (98-107); Estimated GFR 60.08 (mL/min/1.73m2); Glucose 89 mg/dL (74-106); Magnesium 1.9 mg/dL (1.8-2.4); Potassium 3.7 mmol/L (3.5-5.1); Sodium 143 mmol/L (136-145)
== END 2023-10-29 13:31 | disposition home or self-care (01) ==
LOC: LBO 13:30
PROVIDERS: PCP Student in an Organized Health Care Education/Training Program; Visit Provider Student in an Organized Health Care Education/Training Program
DX: D72.829 Elevated white blood cell count, unspecified (principal); D75.838 Other thrombocytosis; R50.9 Fever, unspecified; R68.83 Chills (without fever); R60.9 Edema, unspecified
CPT/HCPCS: 36415; 80048; 83735; 85025

== ENCOUNTER 2023-10-31 15:36 | Outpatient (CLI) | payer OTHER, SELFPAY ==
[2023-10-31 15:42] LABS: ESR 25 mm/hr (0-30)
[2023-10-31 15:45] LABS: Abs Immature Grans 0.02 10^3/uL (0.0-0.06); Absolute Basophil Count 0.07 10^3/uL (0.0-0.2); Absolute Eosinophil Count 0.26 10^3/uL (0.0-0.7); Absolute Monocyte Count 0.66 10^3/uL (0.1-0.8); Absolute Neutrophil Count 4.41 10^3/uL (1.2-6.7); Basophils % 0.7 %; Eosinophils % 2.7 %; HCT 40.9 % (36.0-46.0); HGB 13.5 g/dL (11.2-15.7); Immature Grans % 0.2 %; Lymphocytes % 43.1 %; MCH 27.5 pg (27.0-33.0); MCV 83 fL (80-95); MPV 9.4 fL (8.0-11.0); Monocytes % 6.9 %; Neutrophils % 46.4 %; Platelet Count 404 10^3/uL (130-400); RBC 4.91 10^6/uL (3.93-5.22); RDW 15.9 % (11.7-14.6); RDW-SD 48.5 fL; WBC 9.52 10^3/uL (4.4-10.8)
[2023-10-31 16:12] LABS: Anion Gap 12.3 mmol/L (3-11); BUN 15 mg/dL (7-18); CO2 27.7 mmol/L (21.0-32.0); CREATININE 0.9 mg/dL (0.55-1.02); Calcium 9.6 mg/dL (8.5-10.1); Chloride 103 mmol/L (98-107); Estimated GFR 76.44 (mL/min/1.73m2); Glucose 91 mg/dL (74-106); Magnesium 1.8 mg/dL (1.8-2.4); Potassium 3.6 mmol/L (3.5-5.1); Sodium 143 mmol/L (136-145)
[2023-10-31 16:17] LABS: C-Reactive Protein < 0.50 mg/dL (<or=0.5)
== END 2023-10-31 15:37 | disposition home or self-care (01) ==
LOC: LBO 15:36
PROVIDERS: Nurse Practitioner Family; PCP Student in an Organized Health Care Education/Training Program; Visit Provider Student in an Organized Health Care Education/Training Program
DX: F32.9 Major depressive disorder, single episode, unspecified (principal); M79.606 Pain in leg, unspecified; M79.89 Other specified soft tissue disorders
CPT/HCPCS: 36415; 80048; 85652; 83735; 85025; 86140

== ENCOUNTER 2023-11-04 12:18 | Emergency (ER) | payer OTHER, SELFPAY ==
[2023-11-04 12:25] VITALS: BP 146/100; PULSE 87; RESP 17; TEMP 37.2; O2SAT 99
[2023-11-04 12:28] VITALS: BP 146/100; PULSE 87; RESP 17; TEMP 37.2; O2SAT 99
--- NOTE | 2023-11-04 12:45 | DI.RAD_ITS ---
Exam(s) XR FOOT LT COMPLETE EXAM: XR FOOT LT COMPLETE CLINICAL HISTORY: Eval osteomylitis, great toe, heel. TECHNIQUE: 2D digital imaging was performed. Three views. COMPARISON: CR XR FOOT RT COMPLETE from 02/08/2022 FINDINGS: BONES: No acute fracture is present. No bony destructive lesion is seen. Small plantar calcaneal sp ur. JOINTS: No dislocation present. Prominent hallux valgus. Degenerative changes 1st MTP joint. Dege nerative changes also prominent at 2nd and 3rd tarsal metatarsal joints. SOFT TISSUE: No foreign body or soft tissue air. Soft tissue swelling present greater around the ank le. IMPRESSION: Degenerative changes and hallux valgus. No plain film evidence of osteomyelitis. DATA REPOSITORY: RADIATION DOSE DELIVERED:
[2023-11-04 12:56] LABS: Abs Immature Grans 0.02 10^3/uL (0.0-0.06); Absolute Basophil Count 0.05 10^3/uL (0.0-0.2); Absolute Monocyte Count 0.72 10^3/uL (0.1-0.8); Absolute Neutrophil Count 4.32 10^3/uL (1.2-6.7); Basophils % 0.6 %; Eosinophils % 3.3 %; HCT 41.4 % (36.0-46.0); HGB 13.6 g/dL (11.2-15.7); Immature Grans % 0.2 %; MCH 27.3 pg (27.0-33.0); MCHC 32.9 % (32.0-36.0); MCV 83 fL (80-95); MPV 9.1 fL (8.0-11.0); Neutrophils % 47.9 %; Platelet Count 402 10^3/uL (130-400); RBC 4.98 10^6/uL (3.93-5.22); RDW 16.1 % (11.7-14.6); RDW-SD 49.1 fL; WBC 9.01 10^3/uL (4.4-10.8)
--- NOTE | 2023-11-04 12:57 | W.ED.GENAD ---
Discharge Plan Disposition Patient Disposition: Home Discharge Details Clinical Impression: Cellulitis Primary Care Provider: Huyen Ramon ED Provider: Catie Conley Home Meds and New Rx's Prescriptions: No Action glucagon 3 mg/actuation spray,non-aerosol 3 mg intranasal ONCE Qty: 1 3RF Rx Instructions: as a single dose (DME) Scalp Hair Prosthesis See Rx Instructions .Route .MEDSUPPLY Qty: 1 1RF Rx Instructions: Wear as recommendended (DME) Hair Prosthesis See Rx Instructions .Route .MEDSUPPLY Qty: 1 1RF Rx Instructions: As fitted/recommended for daily wear bupropion HCl [Wellbutrin XL] 300 mg tablet extended release 24 hr 300 mg PO DAILY Qty: 90 3RF acarbose 25 mg tablet 25 mg PO TID Qty: 270 3RF Rx Instructions: Continuing per Endo lisinopril 5 mg tablet 5 mg PO BID Qty: 180 3RF Rx Instructions: Re-starting, trial daily x 1 week nystatin 100,000 unit/gram ointment 1 applic topical TID Qty: 30 1RF Rx Instructions: Apply to area of rash @ chest/abdomen (DME) hair prosthesis See Rx Instructions .Route .MEDSUPPLY Qty: 1 1RF Rx Instructions: hair prosthesis for alopecia areata of scalp bariatric fusion chewable complete 2 tab tablet 2 100 ml PO DAILY (DME) glucometer See Rx Instructions .Route .MEDSUPPLY Qty: 1 0RF Rx Instructions: As directed to manage, prevent hypoglycemic episodes (DME) lancets [Comfort Lancets] Misc See Rx Instructions .ROUTE .MEDSUPPLY Qty: 100 1RF Rx Instructions: As directed to check blood glucose daily. No insulin. Dispense covered brand. (DME) Blood Glucose Test Strip See Rx Instructions .ROUTE .MEDSUPPLY Qty: 350 3RF Rx Instructions: As directed to check blood glucose QID. No insulin. Dispense covered brand. potassium chloride 20 mEq tablet extended release 20 meq PO PRN PRN (Reason: hypokalemia) Qty: 30 2RF Rx Instructions: taking prn per lab test cgc pramipexole 0.25 mg tablet 0.25 mg PO BID Qty: 180 3RF Rx Instructions: Take at lunch time and 1 hour prior to bedtime venlafaxine [Effexor XR] 37.5 mg capsule,extended release 24hr 75 mg PO DAILY Qty: 180 3RF hydrochlorothiazide 25 mg tablet 25 mg PO BID PRN (Reason: edema) Qty: 180 3RF Rx Instructions: PRN omeprazole 40 mg capsule,delayed release(DR/EC) 40 mg PO DAILY Qty: 90 3RF amiloride 5 mg tablet 5 mg PO BID Qty: 180 3RF Rx Instructions: Continue per Endocrine (07/2022+) gabapentin 800 mg tablet 800 mg PO BID Qty: 180 3RF Rx Instructions: Take at noon and 1 hour prior to bedtime for RLS (DME) Dexcom G7 Lab Coordinator Misc See Rx Instructions .Route Qty: 1 1RF Rx Instructions: As directed to monitor blood glucose (DME) Dexcom G7 Sensor Device See Rx Instructions .Route Qty: 9 3RF Rx Instructions: As directed to monitor blood glucose Bio-K plus 50 billion cell capsule,delayed release(DR/EC) 1 cap PO DAILY Qty: 10 0RF amoxicillin-pot clavulanate 875-125 mg tablet 1 tab PO BID Discharge Instructions Instructions: Cellulitis (Skin Infection), Adult ED Additional Instructions: You were seen in the emergency department today for evaluation of left lower extremity cellulitis. In our department you had a full physical examination performed, had laboratory studies that were reassuring against septic shock, and should continue to take your Augmentin as prescribed. You should go to your infusion appointment in 2 days. If you have worsening of your symptoms, develop a fever, or cannot take your oral medications you should return to the emergency department for reevaluation. Thank you for allowing us to be part of your care. HPI General Mode of arrival: ambulatory. Date/Time Provider Initiated Documentation: 11/04/23 12:32. Limitations to Documentation: no limitations. Information obtained by: patient. HPI Narrative: This is a 52-year-old female patient with a past medical history most significant for left lower extremity cellulitis complicated by septic shock in July 2023, as well as hypertension, CKD stage II, and history of of diabetes improved control after bariatric surgery. She is presenting for evaluation of persistent redness and warmth of the left lower extremity with slight worsening of the redness and new toe and heel pain. The patient reports that on October 22 she developed cellulitis, completed a course of doxycycline without improvement, was started on a second course of doxycycline as well as Augmentin at a visit 2 days ago. States that she just took her first dose of Augmentin this morning. She is scheduled for an intravenous antibiotic infusion dalbavancin given on Sunday, is followed by [facility] infectious disease, was told to present to the emergency department for evaluation of any worsening of symptoms. The patient reports that she has noted extension of the redness from her left medial ankle region up towards her anterior calf. She states that she has not had any fevers or chills, has had some nausea related to her prolonged antibiotic use, but no vomiting. She has been able to maintain her oral hydration. Reports that she has noted a burning type pain in her left great toe and heel, denies traumatic injury. The patient is otherwise in her normal state of health and without other acute complaints today. Related Data Home Medications ?Medication ?Instructions ?Recorded ?Confirmed bariatric fusion chewable complete 2 100 ml PO DAILY 12/28/20 11/04/23 glucometer #1 ea 04/21/21 11/04/23 lancets (Comfort Lancets) #100 ea 04/26/21 11/04/23 glucagon 3 mg/actuation nasal spray 3 mg intranasal ONCE severe 07/22/21 11/04/23 hypoglycemia #1 ea blood sugar diagnostic (Blood #350 ea 03/29/22 11/04/23 Glucose Test strips) Scalp Hair Prosthesis #1 ea 06/02/22 11/04/23 lisinopril 5 mg tablet 5 mg PO BID #180 tabs 02/10/23 11/04/23 potassium chloride 20 mEq 20 meq PO PRN PRN hypokalemia #30 03/15/23 11/04/23 tablet,extended release tabs pramipexole 0.25 mg tablet 0.25 mg PO BID #180 tabs 04/18/23 11/04/23 venlafaxine 37.5 mg 75 mg (2 x 37.5 mg) PO DAILY #180 05/03/23 11/04/23 capsule,extended release 24 hr caps (Effexor XR) hydrochlorothiazide 25 mg tablet 25 mg PO BID PRN edema #180 tabs 06/14/23 11/04/23 amiloride 5 mg tablet 5 mg PO BID #180 tabs 06/16/23 11/04/23 omeprazole 40 mg capsule,delayed 40 mg PO DAILY #90 tabs 06/16/23 11/04/23 release gabapentin 800 mg tablet 800 mg PO BID #180 tabs 06/28/23 11/04/23 L. acidophilus,casei,rhamnosus 50 1 cap PO DAILY #10 caps 07/13/23 11/04/23 billion cell capsule,delayed release (Bio-K plus) blood-glucose meter,continuous #1 ea 07/15/23 11/04/23 (Dexcom G7 Lab Coordinator) blood-glucose sensor (Dexcom G7 #9 ea 07/15/23 11/04/23 Sensor device) nystatin 100,000 unit/gram topical 1 applic topical TID #30 grams 07/23/23 11/04/23 ointment Hair Prosthesis #1 ea 08/03/23 11/04/23 acarbose 25 mg tablet 25 mg PO TID #270 tabs 08/03/23 11/04/23 bupropion HCl 300 mg 24 hr tablet, 300 mg PO DAILY #90 tabs 08/03/23 11/04/23 extended release (Wellbutrin XL) amoxicillin 875 mg-potassium 1 tab PO BID 11/04/23 11/04/23 clavulanate 125 mg tablet Previous Rx's ?Medication ?Instructions ?Recorded glucometer #1 ea 04/21/21 lancets (Comfort Lancets) #100 ea 04/26/21 glucagon 3 mg/actuation nasal spray 3 mg intranasal ONCE severe 07/22/21 hypoglycemia #1 ea blood sugar diagnostic (Blood #350 ea 03/29/22 Glucose Test strips) Scalp Hair Prosthesis #1 ea 06/02/22 lisinopril 5 mg tablet 5 mg PO BID #180 tabs 02/10/23 potassium chloride 20 mEq 20 meq PO PRN PRN hypokalemia #30 03/15/23 tablet,extended release tabs pramipexole 0.25 mg tablet 0.25 mg PO BID #180 tabs 04/18/23 venlafaxine 37.5 mg 75 mg (2 x 37.5 mg) PO DAILY #180 05/03/23 capsule,extended release 24 hr caps (Effexor XR) hydrochlorothiazide 25 mg tablet 25 mg PO BID PRN edema #180 tabs 06/14/23 amiloride 5 mg tablet 5 mg PO BID #180 tabs 06/16/23 omeprazole 40 mg capsule,delayed 40 mg PO DAILY #90 tabs 06/16/23 release gabapentin 800 mg tablet 800 mg PO BID #180 tabs 06/28/23 L. acidophilus,casei,rhamnosus 50 1 cap PO DAILY #10 caps 07/13/23 billion cell capsule,delayed release (Bio-K plus) blood-glucose meter,continuous #1 ea 07/15/23 (Dexcom G7 Lab Coordinator) blood-glucose sensor (Dexcom G7 #9 ea 07/15/23 Sensor device) nystatin 100,000 unit/gram topical 1 applic topical TID #30 grams 07/23/23 ointment Hair Prosthesis #1 ea 08/03/23 acarbose 25 mg tablet 25 mg PO TID #270 tabs 08/03/23 bupropion HCl 300 mg 24 hr tablet, 300 mg PO DAILY #90 tabs 08/03/23 extended release (Wellbutrin XL) Allergies Allergy/AdvReac Type Severity Reaction Status Date / Time atropine Allergy Intermediate HIVES, Verified 11/04/23 12:30 SWOLLEN spironolactone Allergy Intermediate Skin Rash Verified 11/04/23 12:30 eplerenone AdvReac Intermediate swelling; Verified 11/04/23 12:30 SOB General Stated Complaint: Cellulitis JOBY: 3 Review of Systems All systems reviewed & are unremarkable except as noted in HPI and below Exam Const General: cooperative, healthy appearing and comfortable Cardio Rate: regular rate Rhythm: regular rhythm Pulses: dorsalis pedis present bilaterally 1+ Skin General skin exam: erythema (left medial ankle and anterior springer, no clear demarcation), no induration, no petechiae and no purpura Other: Slight warmth of left medial calf compared to contralateral side Extrem Other: Bilateral bunions at baseline per patient, full range of motion of the affected left foot and great toe without reproduction of pain. No external skin changes appreciated. Course Vital Signs Vital signs: Vital Signs Temperature 37.2 C 11/04/23 12:25 Pulse 87 11/04/23 12:25 Respiratory Rate 17 11/04/23 12:25 Blood Pressure 146/100 H 11/04/23 12:25 Pulse Oximetry 99 11/04/23 12:25 Temperature 37.2 C 11/04/23 12:28 Temperature Source Temporal Artery Scan 11/04/23 12:28 Pulse 87 11/04/23 12:28 Respiratory Rate 17 11/04/23 12:28 Respiratory Effort Normal 11/04/23 12:29 Blood Pressure 146/100 H 11/04/23 12:28 Blood Pressure Position Sitting 11/04/23 12:28 Pulse Oximetry 99 11/04/23 12:28 Oxygen Delivery Method Room Air 11/04/23 12:28 Oxygen Flow Rate 0 11/04/23 12:28 Pain Level 4 11/04/23 12:28 Lab/Test Results Lab/Test Results: 11/04/23 12:46 Blood Blood Culture - Pending 11/04/23 12:44 Blood Blood Culture - Pending Medical Decision Making In brief, this is a 52-year-old female patient presenting for evaluation of worsening redness and warmth in the setting of known left lower extremity cellulitis. Differential includes but is not limited to cellulitis unresponsive to oral antibiosis, there is no fluctuance or evidence of abscess on my physical examination. I certainly considered osteomyelitis in this patient with persistent symptoms despite appropriate antibiosis, though the patient is without uncontrolled diabetes or trauma which would be the major risk factor for this process. Reassuringly, she is afebrile and hemodynamically appropriate, and I have lower concern for sepsis, septic shock, bacteremia at this time. We will obtain laboratory studies to include CBC, CMP, lactate, and blood cultures. I will obtain an x-ray of the affected left foot to evaluate for characteristic osteomyelitic changes. Pending laboratory data, discussion with the patient will be had regarding her comfort level of continuing outpatient antibiotics (1 dose of Augmentin does not necessarily represent treatment failure given the brief duration of time) while awaiting infusion appointment versus admission for intravenous antibiosis. -I reviewed the patient's laboratory studies, which reveal no elevation in white blood cell count compared to labs obtained within the last week. Patient has no new anemia, no thrombocytopenia. Chemistry panel without significant abnormality, evidence of kidney or liver dysfunction. Lactate is normal at 0.9. I did provide the patient with a dose of Tylenol for symptomatic management of her toe pain. I independently interpreted the patient's x-ray, which does not reveal any obvious lytic changes to suggest osteomyelitis. We had a shared decision-making conversation regarding neck steps of management. The patient is desiring of discharge home and at this time, she is hemodynamically appropriate, ambulatory and without laboratory evidence for sepsis, and I believe this is reasonable to trial an outpatient course given the recent initiation of Augmentin. The patient will go to her infusion appointment on Sunday. At this time, the patient has had a complete medical evaluation and safe for discharge to home. She is understanding of the follow-up plan and the return precautions, which include development of fever, inability to take p.o. meds, worsening of her redness, warmth, or other skin changes, and any other symptoms that cause her concern. She remained hemodynamically appropriate throughout her time under my care, and left our facility without incident. Medical Records Medical records reviewed: Yes I reviewed the patient's medical records. Lab Data Lab results reviewed: Yes I reviewed the patient's lab results. Quality:SDOH Health Related Social Needs: No Data to Display PFSH All Active Problems (Updated 11/04/23 @ 15:11 by Catie Conley MD) Cellulitis (Acute) Rash (Acute) Leg pain (Acute) Lymphedema due to infection (Acute) Probable Dx, 2' LE infection (vs infection progression to sepsis 2' lymphedema). APPRECIATE LYMPEDEMA TX Venous insufficiency of left leg (Acute) Muscle spasm of back (Acute) Usually manageable, working with chiro.. considering dry-needling Edema of left ankle (Acute) Cellulitis of left lower leg (Acute) 07/02, ED--> Hosptlztn for inner left leg. Atypical rxn, with sepsis (although blood Cx NEG) Pre-ulcerative corn or callous (Chronic) b/l Thrombocytosis (Acute) Post hospitalization, 07/2023 presumed reactive? possible rebound? (Hx trending upwards during hosp stay, w/o comment) [ ] Heme, ID Left leg swelling (Acute) Arthritis of left glenohumeral joint (Acute) CKD (chronic kidney disease) stage 2, GFR 60-89 ml/min (Acute) New baseline?! Ill feeling (Acute) Recent episodes of somnolence, off-balance & spells of being out of my body. Possibly psych rxn (2' anx, grief, milestones) .. but monitoring. Hypertension (Chronic) Hx HTN .. with med d/c post bariatric surg wt loss.. some elevated BPs, 05/2022, re-start low-dose lisinopril. LVH (left ventricular hypertrophy) (Acute) Newly noted, although Hx left axis dev (-90, -30) .. Hx HTN, Flash Pulm Edema (2019), obesity, s/p bariatric surgery. Hypoglycemia (Acute) Hx BG < 35 per CGM Acute hypokalemia (Acute) Disorder of iron metabolism (Acute) Per 03/22/22 [facility] Gen surgery note Elevated PTHrP level (Acute) Per 03/22/22 [facility] Gen surgery note Hyperparathyroidism (Acute) Postprandial hypoglycemia (Acute) PP Hyperinsulinemic hypogly Dx per [facility] Endo (Echt). 04/2022. per observation and tel d/w Dr. Ortega (future Endo, [place]).. vs exercise-induced Status post bariatric surgery (Acute) Successful weight loss, but dangerous, symptomatic HYPOglycemia [neg dumping syndrome per [facility]] Skin lesion (Acute) Mild wound, 2' probable abd intertrigo. Facial twitching (Acute) Nodule of left lung (Acute) 3mm, incidental finding, LLL (12/2020 CT). [ ] 6 mo FU.. Paresthesias (Acute) Hypotension (Acute) post gastric bypass ... lowering ACEi, BB, CCB. DIuretics in place 2' LE edema (albeit improved). Depressive disorder (Chronic 05/23/11) Wellbutrin 2012, discon 12/2012, restart 05/2013 Hx of Marylou thyroiditis (Acute) Imbalance (Acute) Cervical radiculopathy (Acute) Hematuria (Acute) Fatty liver (Acute) 10/02/18 Dr Schroeder/[facility] Migraine headache with aura (Chronic) DR. VALDEZ 08/29/11 [place] Vertigo and/or pain Serrated adenoma of colon (Acute 07/07/15) Dr. Contreras, sessile colonic polyp, inflammatory polyp Sensorineural hearing loss, bilateral (Chronic 11/01/17) Restless leg (Acute 03/31/15) Some relief with iron infusion (albeit reaction to infusion), 05/2018. 06/16/19 f/u at sleep clinic Reflux esophagitis (Acute 07/07/15) Dr. Contreras gastritis Positive TG (antinuclear antibody) (Acute 06/07/15) Incomplete tear of left rotator cuff (Acute 05/31/16) Alopecia areata (Acute 05/23/11) Dx'ed 1990s Hair prosthesis Medical History Hx of sepsis Cellulitis Menopausal symptoms Mastocytosis NEG per testing ... Followed by Dr. Irma Schroeder, [facility]. Working DDX despite neg labs. Numerous tests ordered .. recommend some time off to be able to manage tests, rest, rehydrate. Scab of knee fell last week, rough/dry scab, but irritated .. Trial debride @ home, consider surgtery if tender. Diarrhea (10/29/15) Chronic, secretory .. s/p multiple [place], Bx. Trial cholestyramine, 10/2018, ik planned. History of endometrial biopsy (~05/26/22) [facility] Poster, 05/26/22 Post-resection malabsorption Per 03/22/22 [facility] Gen surgery note Heel lesion Right heel, cracked skin .. inner foot tenderness .. out of proportion tenderness .. possible assoc with fever? (improved with soaking, but not closing) Fever Over 1 week; T 103/102/99; Neg COVID; Awaiting Flu SARS-CoV-2 positive (~10/26/21) [place] exposure Dtr (+) .. Sore Throat, lab [ ] Dumping syndrome (04/12/21) NOT per Bariatric Team.. Dx per [facility] Endo .. [facility] Bariatric Team re-eval as NEG for dumping syndrome, 05/2021 Complicated grieving Her basically healthy mo due to COVID19 infection. She was intubated within days of becoming sick, sending out a cheerful text 4 days beforehand! Monisha has cancelled the trip just before flights, etc were shut down; she was originally worried for her fa 2' health issues and dementia. Close-knit family; inability for gathering for .. video/webexed with family in [facility] (mo in [place]). Diabetes mellitus type 2 in obese Improved s/p bariatric surgery and wt loss BUT HYPOglycemia Preeclampsia Flash pulmonary edema Lymphedema Possibly affecting left ankle, post infection, 07/2023. Hx x2-3x? (referring to PT for evaluation and recommendations).. Bunion 12/24/18-nelson Yarbrough DPM Abnormal serum creatinine level (07/2018) Serious Creatinine elevation, with resolution between episodes of dehydration .. Sustained VT (ventricular tachycardia) during hypokalemia episode Angioedema 10/02/18 Dr Schroeder/[facility] Flushing 10/02/18 Dr Schroeder/[facility] Elevated plasma metanephrines (08/2018) Ordered by [place], [place] (Abd) [ ] ... follow up with Endo week of October 07. 08/2018, mian Kidney stone (02/27/12) Dehydration (~08/21/18) Several episodes now .. She can almost gauge her K levels based on mm weakness. [ ] BMP [ ] IVF-KCl Bolus-K have helped with hypokalemia in between bouts of diarrhea/dehydration when IVF not needed. 09/2018, mian Rectal bleeding (03/02/15) Episodic - Was diagnosed with AVM's Impaired fasting glucose (02/11/14) A1C 6.1% 12/2012 .. A1C 5.8 07/04/18. Hypokalemia (11/07/16) Chronic, possible 2' IBS/Diarrhea. Continued despite GI improvements, albeit improved. Trial Eplerenone, to be followed by HCTZ decrease. 10/09/18 Intermittent improvement, but unsteady and unpredictable .. Monisha seems unable to maintain her own K levels WNL w/o bolus/infusions at this time. Unable to tolerate K-sparing diuretics. Cont to research, evaluate, consult .. 09/2018, mian Essential hypertension (12/05/12) Elevated BPs, especially DBP. Hx high BP since of twins (20yrs), noted in Nephro note (2016). HCTZ used x years for HTN & Edema. Spirono not tolerated (Hives/Flush). Trial Eplerenone, 10/09/18, ik Unable to tolerate eplerenone, angioedema-like reactions to K-sparing diuretics.. 09/2018, ik Irritable bowel syndrome diarrhea predominant Alopecia Hx of adenomatous colonic polyps Marylou's thyroiditis Depression Anemia Reflux esophagitis Surgical History S/P laparoscopic hysterectomy (~12/2022) Extensive lysis of adhesions, bilateral salpingectomy and cystoscopy, repair of vaginal lacerations for chronic pelvic pain and fibroid uterus. History of Nadia-en-Y gastric bypass (~11/2019) H/O colonoscopy (12/05/17) History of esophagogastroduodenoscopy (EGD) (12/05/17) Tonsillectomy section x3 Endometrial Ablation 2007 2012 EGD - MAC 2016 Colonoscopy - MAC (03/16/14) w/ bx 2016-serrated adenomatous polyp Most recent 12/05/2017 Family History Mother Pulmonary hypertension Heart disease valve replacement Father Prostate cancer Essential hypertension Parkinsons Sister Uterine cancer Brother Heart disease Father Hypertension Mother Heart disease Maternal Grandfather Diabetes Sister Age: 59 Cancer Other Colon cancer Social History Smoking/Tobacco Use Status: Never Smoking risk assessment performed?: Yes Alcohol Intake: current Alcohol Intake frequency: holidays/special occasions only Alcohol type: wine Drug use: Never Substance use type: does not use Adopted: No Caregiver/Support person: No Household members: spouse and other Details: Partner - Jayne, children Housing: house Number of Children: 4 number of grandchildren: 0 Communication Needs: Corrective Lenses Education Level: college current occupation: Daily today tested negative on this on the testing day negative negative di Pets and animals: Yes Pets and animals: cat(s) and dog(s) Sexually active: Yes Do you think of yourself as: lesbian/peña/homosexual Current gender identity: female What is your relationship status?: living with partner Panel score (0-1 are the most socially isolated patients): 1 What type of physical activity do you participate in: walking Duration: 15-30 minutes/day Frequency: 3-4 times per week Seatbelt use: always Working smoke detector in home: Yes Fire extinguisher in home: Yes Carbon monox detector in home: Yes Firearms in home: No Do you feel safe at home: Yes Do you feel safe in your relationship?: Yes Additional Social history: Lives in [place] with Jayne and their 2 18 yo girls, 4 older kids out of home. 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 Female Reproductive History Menstrual control method: permanent sterilization History History 3 Para 4 Hx # Term Pregnancies Multiple births 1 Hx # Pregnancies Ectopic pregnancies AB induced Hx Number of Living Children 4 AB spontaneous
[2023-11-04 13:08] LABS: ALT 38 U/L (14-59); AST 27 U/L (15-37); Albumin 3.9 g/dL (3.4-5.0); Alkaline Phosphatase 89 U/L (46-116); Anion Gap 4.8 mmol/L (3-11); BUN 11 mg/dL (7-18); Bilirubin, Total 0.37 mg/dL (0.2-1.0); CO2 28.2 mmol/L (21.0-32.0); Calcium 9.5 mg/dL (8.5-10.1); Chloride 101 mmol/L (98-107); Estimated GFR 67.36 (mL/min/1.73m2); Glucose 106 mg/dL (74-106); Potassium 3.5 mmol/L (3.5-5.1); Sodium 134 mmol/L (136-145); Total Protein 7.6 g/dL (6.4-8.2)
[2023-11-04 13:18] VITALS: BP 147/87; PULSE 80; RESP 16; O2SAT 95
[2023-11-04 14:07] LABS: Lactate 0.9 mmol/L (0.6-1.4)
[2023-11-04] MEDS: Acetaminophen 500 MG TAB 1000 MG PO (14:47)
--- NOTE | 2023-11-04 14:52 | DI.VRAD_ITS ---
PROCEDURE INFORMATION: Exam: XR Left Foot Exam date and time: 11/04/2023 1:49 PM Age: 52 years old Clinical indication: Other: Eval osteomylitis, great toe, heel TECHNIQUE: Imaging protocol: Radiologic exam of the left foot. Views: 3 or more views. COMPARISON: MR LOWER JOINT LT WO 08/14/2023 10:06 AM FINDINGS: Bones/joints: Significant hallux valgus deformity of the great toe. Degenerative changes in the 1st metatarsophalangeal joint. Degenerative changes in the tarsometatarsal joints. There is no evidence of acute fracture.There is no evidence of malalignment or dislocation. No definite lytic process to suggest osteomyelitis Soft tissues: Normal. IMPRESSION: There is no evidence of acute fracture.There is no evidence of malalignment or dislocation. Dictated and Authenticated by: Jeimy Ellison MD. Ordering:NIK Chou MD
[2023-11-04 15:12] VITALS: BP 142/102; PULSE 87; RESP 15; TEMP 36.8; O2SAT 97
== END 2023-11-04 15:18 | disposition home or self-care (01) ==
PROVIDERS: Emergency Provider Emergency Medicine; PCP Student in an Organized Health Care Education/Training Program
DX: L03.116 Cellulitis of left lower limb (principal); I11.0 Hypertensive heart disease with heart failure; N18.9 Chronic kidney disease, unspecified; E11.9 Type 2 diabetes mellitus without complications; Z98.84 Bariatric surgery status; Z79.84 Long term (current) use of oral hypoglycemic drugs
CPT/HCPCS: 36415; 80053; 87040; 99283; 73630; 83605; 85025

== ENCOUNTER 2023-11-12 03:36 | Outpatient (CLI) | payer OTHER, SELFPAY ==
[2023-11-12 12:43] LABS: Abs Immature Grans 0.03 10^3/uL (0.0-0.06); Absolute Basophil Count 0.09 10^3/uL (0.0-0.2); Absolute Eosinophil Count 0.34 10^3/uL (0.0-0.7); Absolute Lymphocyte Count 3.38 10^3/uL (1.2-3.4); Absolute Monocyte Count 0.76 10^3/uL (0.1-0.8); Absolute Neutrophil Count 4.79 10^3/uL (1.2-6.7); Eosinophils % 3.6 %; HCT 41.5 % (36.0-46.0); HGB 13.7 g/dL (11.2-15.7); Immature Grans % 0.3 %; MCH 27.7 pg (27.0-33.0); MCV 84 fL (80-95); MPV 9.3 fL (8.0-11.0); Monocytes % 8.1 %; Platelet Count 429 10^3/uL (130-400); RBC 4.94 10^6/uL (3.93-5.22); RDW 16.2 % (11.7-14.6); RDW-SD 50.2 fL; WBC 9.39 10^3/uL (4.4-10.8)
[2023-11-12 13:20] LABS: ALT 92 U/L (14-59); AST 29 U/L (15-37); Albumin 3.5 g/dL (3.4-5.0); Alkaline Phosphatase 107 U/L (46-116); Anion Gap 7.9 mmol/L (3-11); BUN 19 mg/dL (7-18); Bilirubin, Total 0.25 mg/dL (0.2-1.0); CO2 31.1 mmol/L (21.0-32.0); Calcium 9.3 mg/dL (8.5-10.1); Chloride 99 mmol/L (98-107); Estimated GFR 67.36 (mL/min/1.73m2); Glucose 121 mg/dL (74-106); Potassium 3.4 mmol/L (3.5-5.1); Sodium 138 mmol/L (136-145); Total Protein 7.4 g/dL (6.4-8.2)
[2023-11-12 17:03] LABS: C-Reactive Protein < 0.50 mg/dL (<or=0.5)
== END 2023-11-12 03:37 | disposition home or self-care (01) ==
PROVIDERS: PCP Student in an Organized Health Care Education/Training Program; Visit Provider Internal Medicine Infectious Disease
DX: Z91.89 Other specified personal risk factors, not elsewhere classified (principal); D69.1 Qualitative platelet defects
CPT/HCPCS: 36415; 80053; 83735; 85025; 86140

== ENCOUNTER 2023-11-13 14:00 | Outpatient (RCR) | payer OTHER, SELFPAY ==
[2023-11-06] MEDS: Normal Saline Flush 10 ML SYR IVP (11:33)
[2023-11-06 11:35] LABS: Abs Immature Grans 0.01 10^3/uL (0.0-0.06); Absolute Basophil Count 0.06 10^3/uL (0.0-0.2); Absolute Eosinophil Count 0.27 10^3/uL (0.0-0.7); Absolute Lymphocyte Count 3.14 10^3/uL (1.2-3.4); Absolute Monocyte Count 0.56 10^3/uL (0.1-0.8); Absolute Neutrophil Count 3.66 10^3/uL (1.2-6.7); Basophils % 0.8 %; Eosinophils % 3.5 %; HCT 40.7 % (36.0-46.0); HGB 13.4 g/dL (11.2-15.7); Immature Grans % 0.1 %; Lymphocytes % 40.8 %; MCH 27.9 pg (27.0-33.0); MCHC 32.9 % (32.0-36.0); MCV 85 fL (80-95); MPV 9.2 fL (8.0-11.0); Monocytes % 7.3 %; Neutrophils % 47.5 %; Platelet Count 405 10^3/uL (130-400); RBC 4.81 10^6/uL (3.93-5.22); RDW 16.3 % (11.7-14.6); RDW-SD 50.4 fL
[2023-11-06 12:05] LABS: ALT 35 U/L (14-59); AST 20 U/L (15-37); Albumin 3.1 g/dL (3.4-5.0); Alkaline Phosphatase 79 U/L (46-116); Anion Gap 6.8 mmol/L (3-11); BUN 14 mg/dL (7-18); Bilirubin, Total 0.24 mg/dL (0.2-1.0); C-Reactive Protein < 0.50 mg/dL (<or=0.5); CO2 29.2 mmol/L (21.0-32.0); CREATININE 0.8 mg/dL (0.55-1.02); Calcium 8.3 mg/dL (8.5-10.1); Chloride 106 mmol/L (98-107); Estimated GFR 88.05 (mL/min/1.73m2); Glucose 92 mg/dL (74-106); Potassium 3.2 mmol/L (3.5-5.1); Sodium 142 mmol/L (136-145); Total Protein 6.4 g/dL (6.4-8.2)
[2023-11-06] MEDS: DALBAVANCIN 1,500 MG in DEXTROSE 5%-WATER 325 ML 650 MG IVPB (12:15)
[2023-11-13 14:28] LABS: Abs Immature Grans 0.02 10^3/uL (0.0-0.06); Absolute Basophil Count 0.08 10^3/uL (0.0-0.2); Absolute Eosinophil Count 0.31 10^3/uL (0.0-0.7); Absolute Lymphocyte Count 2.92 10^3/uL (1.2-3.4); Absolute Monocyte Count 0.81 10^3/uL (0.1-0.8); Absolute Neutrophil Count 5.75 10^3/uL (1.2-6.7); Basophils % 0.8 %; Eosinophils % 3.1 %; HCT 39.8 % (36.0-46.0); HGB 13.2 g/dL (11.2-15.7); Immature Grans % 0.2 %; Lymphocytes % 29.5 %; MCH 27.7 pg (27.0-33.0); MCHC 33.2 % (32.0-36.0); MCV 83 fL (80-95); MPV 9.5 fL (8.0-11.0); Monocytes % 8.2 %; Neutrophils % 58.2 %; Platelet Count 451 10^3/uL (130-400); RBC 4.77 10^6/uL (3.93-5.22); RDW 16.1 % (11.7-14.6); RDW-SD 49.3 fL; WBC 9.89 10^3/uL (4.4-10.8)
[2023-11-13] MEDS: DALBAVANCIN 1,500 MG in DEXTROSE 5%-WATER 325 ML 650 MG IVPB (15:13)
[2023-11-13] MEDS: Normal Saline Flush 10 ML SYR IVP (15:14)
[2023-11-13 18:56] LABS: ALT 78 U/L (14-59); AST 33 U/L (15-37); Albumin 3.4 g/dL (3.4-5.0); Alkaline Phosphatase 106 U/L (46-116); Anion Gap 14.5 mmol/L (3-11); BUN 19 mg/dL (7-18); Bilirubin, Total 0.17 mg/dL (0.2-1.0); CO2 25.5 mmol/L (21.0-32.0); CREATININE 1.3 mg/dL (0.55-1.02); Calcium 9.1 mg/dL (8.5-10.1); Chloride 100 mmol/L (98-107); Creatine Kinase 153 U/L (26-192); Estimated GFR 49.17 (mL/min/1.73m2); Glucose 103 mg/dL (74-106); Potassium 3.9 mmol/L (3.5-5.1); Sodium 140 mmol/L (136-145); Total Protein 7.4 g/dL (6.4-8.2)
== END 2023-12-01 23:59 | disposition home or self-care (01) ==
LOC: INF 14:00
PROVIDERS: Internal Medicine Infectious Disease; PCP Student in an Organized Health Care Education/Training Program; Visit Provider Family Medicine
DX: L03.90 Cellulitis, unspecified (principal)
CPT/HCPCS: 36415; 36591; 80048; 80053; 82550; 96365; 85025; 86140; J0875

== ENCOUNTER 2023-11-19 04:16 | Outpatient (CLI) | payer OTHER, SELFPAY ==
[2023-11-19 12:39] LABS: Abs Immature Grans 0.03 10^3/uL (0.0-0.06); Absolute Basophil Count 0.11 10^3/uL (0.0-0.2); Absolute Eosinophil Count 0.34 10^3/uL (0.0-0.7); Absolute Lymphocyte Count 4.08 10^3/uL (1.2-3.4); Absolute Monocyte Count 0.63 10^3/uL (0.1-0.8); Basophils % 1.1 %; Eosinophils % 3.5 %; HCT 38.8 % (36.0-46.0); HGB 13.3 g/dL (11.2-15.7); Immature Grans % 0.3 %; Lymphocytes % 42.1 %; MCH 28.2 pg (27.0-33.0); MCHC 34.3 % (32.0-36.0); MCV 82 fL (80-95); MPV 9.5 fL (8.0-11.0); Monocytes % 6.5 %; Neutrophils % 46.5 %; Platelet Count 427 10^3/uL (130-400); RBC 4.71 10^6/uL (3.93-5.22); RDW 16.4 % (11.7-14.6); RDW-SD 49.2 fL; WBC 9.69 10^3/uL (4.4-10.8)
[2023-11-19 13:24] LABS: ALT 48 U/L (14-59); AST 30 U/L (15-37); Albumin 3.3 g/dL (3.4-5.0); Alkaline Phosphatase 98 U/L (46-116); Anion Gap 7.8 mmol/L (3-11); BUN 15 mg/dL (7-18); Bilirubin, Total 0.27 mg/dL (0.2-1.0); CO2 29.2 mmol/L (21.0-32.0); Chloride 101 mmol/L (98-107); Estimated GFR 67.36 (mL/min/1.73m2); Glucose 128 mg/dL (74-106); Potassium 3.3 mmol/L (3.5-5.1); Sodium 138 mmol/L (136-145); Total Protein 7.1 g/dL (6.4-8.2)
[2023-11-19 13:26] LABS: C-Reactive Protein < 0.50 mg/dL (<or=0.5)
== END 2023-11-19 04:17 | disposition home or self-care (01) ==
PROVIDERS: PCP Student in an Organized Health Care Education/Training Program; Visit Provider Internal Medicine Infectious Disease
DX: L03.90 Cellulitis, unspecified (principal)
CPT/HCPCS: 36415; 80053; 85025; 86140

== ENCOUNTER 2023-11-23 00:41 | Outpatient (CLI) | payer OTHER, SELFPAY ==
[2023-11-23 08:40] LABS: Abs Immature Grans 0.01 10^3/uL (0.0-0.06); Absolute Eosinophil Count 0.27 10^3/uL (0.0-0.7); Absolute Monocyte Count 0.62 10^3/uL (0.1-0.8); Absolute Neutrophil Count 3.48 10^3/uL (1.2-6.7); Basophils % 1.3 %; Eosinophils % 3.4 %; HGB 12.9 g/dL (11.2-15.7); Immature Grans % 0.1 %; Lymphocytes % 43.1 %; MCHC 33.9 % (32.0-36.0); MCV 83 fL (80-95); MPV 9.3 fL (8.0-11.0); Monocytes % 7.9 %; Neutrophils % 44.2 %; Platelet Count 403 10^3/uL (130-400); RDW 16.5 % (11.7-14.6); RDW-SD 49.7 fL; WBC 7.88 10^3/uL (4.4-10.8)
[2023-11-23 09:11] LABS: ALT 46 U/L (14-59); AST 31 U/L (15-37); Albumin 3.4 g/dL (3.4-5.0); Alkaline Phosphatase 88 U/L (46-116); Anion Gap 6.1 mmol/L (3-11); BUN 16 mg/dL (7-18); Bilirubin, Total 0.27 mg/dL (0.2-1.0); C-Reactive Protein < 0.50 mg/dL (<or=0.5); CO2 30.9 mmol/L (21.0-32.0); Calcium 9.2 mg/dL (8.5-10.1); Chloride 101 mmol/L (98-107); Estimated GFR 67.36 (mL/min/1.73m2); Glucose 99 mg/dL (74-106); Potassium 3.4 mmol/L (3.5-5.1); Sodium 138 mmol/L (136-145); Total Protein 7.1 g/dL (6.4-8.2)
== END 2023-11-23 00:42 | disposition home or self-care (01) ==
PROVIDERS: PCP Student in an Organized Health Care Education/Training Program; Visit Provider Internal Medicine Infectious Disease
DX: L03.90 Cellulitis, unspecified (principal)
CPT/HCPCS: 36415; 80053; 85025; 86140

== ENCOUNTER 2023-12-04 14:07 | Outpatient (CLI) | payer OTHER, SELFPAY ==
[2023-12-04 14:54] LABS: Abs Immature Grans 0.03 10^3/uL (0.0-0.06); Absolute Basophil Count 0.05 10^3/uL (0.0-0.2); Absolute Eosinophil Count 0.26 10^3/uL (0.0-0.7); Absolute Lymphocyte Count 3.67 10^3/uL (1.2-3.4); Absolute Monocyte Count 0.71 10^3/uL (0.1-0.8); Absolute Neutrophil Count 5.96 10^3/uL (1.2-6.7); Basophils % 0.5 %; Eosinophils % 2.4 %; HCT 38.2 % (36.0-46.0); HGB 13.1 g/dL (11.2-15.7); Immature Grans % 0.3 %; Lymphocytes % 34.4 %; MCH 28.2 pg (27.0-33.0); MCHC 34.3 % (32.0-36.0); MCV 82 fL (80-95); MPV 9.3 fL (8.0-11.0); Monocytes % 6.6 %; Neutrophils % 55.8 %; Platelet Count 400 10^3/uL (130-400); RBC 4.65 10^6/uL (3.93-5.22); RDW 16.9 % (11.7-14.6); RDW-SD 50.2 fL; WBC 10.68 10^3/uL (4.4-10.8)
[2023-12-04 15:18] LABS: ALT 27 U/L (14-59); AST 27 U/L (15-37); Albumin 3.6 g/dL (3.4-5.0); Alkaline Phosphatase 79 U/L (46-116); Anion Gap 5.6 mmol/L (3-11); BUN 15 mg/dL (7-18); Bilirubin, Total 0.21 mg/dL (0.2-1.0); CO2 31.4 mmol/L (21.0-32.0); CREATININE 0.9 mg/dL (0.55-1.02); Calcium 9.4 mg/dL (8.5-10.1); Chloride 101 mmol/L (98-107); Estimated GFR 76.44 (mL/min/1.73m2); Glucose 103 mg/dL (74-106); Potassium 3.9 mmol/L (3.5-5.1); Sodium 138 mmol/L (136-145); Total Protein 7.2 g/dL (6.4-8.2)
[2023-12-04 15:20] LABS: C-Reactive Protein < 0.50 mg/dL (<or=0.5)
== END 2023-12-04 14:08 | disposition home or self-care (01) ==
LOC: LBO 14:07
PROVIDERS: PCP Student in an Organized Health Care Education/Training Program; Visit Provider Internal Medicine Infectious Disease
DX: L03.90 Cellulitis, unspecified (principal)
CPT/HCPCS: 36415; 80053; 83735; 85025; 86140

== ENCOUNTER 2023-12-10 01:57 | Outpatient (CLI) | payer OTHER, SELFPAY ==
[2023-12-10 10:54] LABS: Absolute Basophil Count 0.05 10^3/uL (0.0-0.2); Absolute Eosinophil Count 0.27 10^3/uL (0.0-0.7); Absolute Lymphocyte Count 3.32 10^3/uL (1.2-3.4); Absolute Monocyte Count 0.65 10^3/uL (0.1-0.8); Absolute Neutrophil Count 3.56 10^3/uL (1.2-6.7); Basophils % 0.6 %; Eosinophils % 3.4 %; HCT 39.9 % (36.0-46.0); HGB 13.3 g/dL (11.2-15.7); Lymphocytes % 42.3 %; MCH 27.7 pg (27.0-33.0); MCHC 33.3 % (32.0-36.0); MCV 83 fL (80-95); MPV 9.3 fL (8.0-11.0); Monocytes % 8.3 %; Neutrophils % 45.4 %; Platelet Count 347 10^3/uL (130-400); RBC 4.81 10^6/uL (3.93-5.22); RDW 16.6 % (11.7-14.6); RDW-SD 50.3 fL; WBC 7.85 10^3/uL (4.4-10.8)
[2023-12-10 11:10] LABS: ALT 28 U/L (14-59); AST 24 U/L (15-37); Albumin 3.7 g/dL (3.4-5.0); Alkaline Phosphatase 78 U/L (46-116); Anion Gap 5.1 mmol/L (3-11); BUN 19 mg/dL (7-18); Bilirubin, Total 0.38 mg/dL (0.2-1.0); C-Reactive Protein < 0.50 mg/dL (<or=0.5); CO2 32.9 mmol/L (21.0-32.0); Calcium 9.6 mg/dL (8.5-10.1); Chloride 98 mmol/L (98-107); Estimated GFR 67.36 (mL/min/1.73m2); Glucose 101 mg/dL (74-106); Potassium 3.1 mmol/L (3.5-5.1); Sodium 136 mmol/L (136-145); Total Protein 7.3 g/dL (6.4-8.2)
== END 2023-12-10 01:58 | disposition home or self-care (01) ==
PROVIDERS: PCP Student in an Organized Health Care Education/Training Program; Visit Provider Internal Medicine Infectious Disease
DX: L03.90 Cellulitis, unspecified (principal)
CPT/HCPCS: 36415; 80053; 85025; 86140

== ENCOUNTER 2023-12-17 04:23 | Outpatient (CLI) | payer OTHER, SELFPAY ==
[2023-12-17 11:17] LABS: Abs Immature Grans 0.02 10^3/uL (0.0-0.06); Absolute Basophil Count 0.05 10^3/uL (0.0-0.2); Absolute Eosinophil Count 0.26 10^3/uL (0.0-0.7); Absolute Lymphocyte Count 3.31 10^3/uL (1.2-3.4); Absolute Monocyte Count 0.54 10^3/uL (0.1-0.8); Absolute Neutrophil Count 3.13 10^3/uL (1.2-6.7); Basophils % 0.7 %; Eosinophils % 3.6 %; HCT 39.1 % (36.0-46.0); HGB 12.9 g/dL (11.2-15.7); Immature Grans % 0.3 %; Lymphocytes % 45.3 %; MCH 27.7 pg (27.0-33.0); MCV 84 fL (80-95); MPV 9.6 fL (8.0-11.0); Monocytes % 7.4 %; Neutrophils % 42.7 %; Platelet Count 372 10^3/uL (130-400); RBC 4.65 10^6/uL (3.93-5.22); RDW 16.4 % (11.7-14.6); RDW-SD 50.6 fL; WBC 7.31 10^3/uL (4.4-10.8)
[2023-12-17 11:47] LABS: ALT 27 U/L (14-59); AST 22 U/L (15-37); Albumin 3.6 g/dL (3.4-5.0); Alkaline Phosphatase 79 U/L (46-116); Anion Gap 7.1 mmol/L (3-11); BUN 16 mg/dL (7-18); Bilirubin, Total 0.36 mg/dL (0.2-1.0); CO2 28.9 mmol/L (21.0-32.0); CREATININE 1.1 mg/dL (0.55-1.02); Calcium 9.6 mg/dL (8.5-10.1); Chloride 101 mmol/L (98-107); Estimated GFR 60.08 (mL/min/1.73m2); Glucose 103 mg/dL (74-106); Potassium 3.5 mmol/L (3.5-5.1); Sodium 137 mmol/L (136-145); Total Protein 7.2 g/dL (6.4-8.2)
[2023-12-17 11:55] LABS: C-Reactive Protein < 0.50 mg/dL (<or=0.5)
== END 2023-12-17 04:24 | disposition home or self-care (01) ==
PROVIDERS: PCP Student in an Organized Health Care Education/Training Program; Visit Provider Internal Medicine Infectious Disease
DX: L03.90 Cellulitis, unspecified (principal)
CPT/HCPCS: 36415; 80053; 85025; 86140

== ENCOUNTER 2023-12-26 14:35 | Outpatient (CLI) | payer OTHER, SELFPAY ==
[2023-12-26 11:40] LABS: Anion Gap 6.8 mmol/L (3-11); BUN 20 mg/dL (7-18); CO2 31.2 mmol/L (21.0-32.0); CREATININE 1.1 mg/dL (0.55-1.02); Calcium 9.3 mg/dL (8.5-10.1); Chloride 98 mmol/L (98-107); Estimated GFR 59.71 (mL/min/1.73m2); Glucose 177 mg/dL (74-106); Magnesium 1.9 mg/dL (1.8-2.4); Potassium 3.3 mmol/L (3.5-5.1); Sodium 136 mmol/L (136-145)
[2023-12-26 11:50] LABS: Abs Immature Grans 0.02 10^3/uL (0.0-0.06); Absolute Basophil Count 0.06 10^3/uL (0.0-0.2); Absolute Eosinophil Count 0.31 10^3/uL (0.0-0.7); Absolute Lymphocyte Count 3.27 10^3/uL (1.2-3.4); Absolute Monocyte Count 0.46 10^3/uL (0.1-0.8); Absolute Neutrophil Count 3.56 10^3/uL (1.2-6.7); Basophils % 0.8 %; HCT 37.5 % (36.0-46.0); HGB 12.7 g/dL (11.2-15.7); Immature Grans % 0.3 %; Lymphocytes % 42.6 %; MCHC 33.9 % (32.0-36.0); MCV 83 fL (80-95); MPV 9.6 fL (8.0-11.0); Neutrophils % 46.3 %; Platelet Count 404 10^3/uL (130-400); RBC 4.54 10^6/uL (3.93-5.22); RDW 15.9 % (11.7-14.6); RDW-SD 48.4 fL; WBC 7.68 10^3/uL (4.4-10.8)
== END 2023-12-26 14:36 | disposition home or self-care (01) ==
LOC: LBO 14:36
PROVIDERS: PCP Student in an Organized Health Care Education/Training Program; Visit Provider Student in an Organized Health Care Education/Training Program
DX: I89.0 Lymphedema, not elsewhere classified (principal); L03.90 Cellulitis, unspecified
CPT/HCPCS: 36415; 80048; 83735; 85025

== ENCOUNTER 2024-01-07 14:16 | Outpatient (CLI) | payer OTHER, SELFPAY ==
[2024-01-07 15:04] LABS: Abs Immature Grans 0.03 10^3/uL (0.0-0.06); Absolute Basophil Count 0.05 10^3/uL (0.0-0.2); Absolute Eosinophil Count 0.33 10^3/uL (0.0-0.7); Absolute Lymphocyte Count 3.29 10^3/uL (1.2-3.4); Absolute Monocyte Count 0.52 10^3/uL (0.1-0.8); Absolute Neutrophil Count 5.48 10^3/uL (1.2-6.7); Basophils % 0.5 %; Eosinophils % 3.4 %; HCT 40.5 % (36.0-46.0); HGB 13.3 g/dL (11.2-15.7); Immature Grans % 0.3 %; Lymphocytes % 33.9 %; MCH 27.9 pg (27.0-33.0); MCHC 32.8 % (32.0-36.0); MCV 85 fL (80-95); MPV 9.4 fL (8.0-11.0); Monocytes % 5.4 %; Neutrophils % 56.5 %; Platelet Count 395 10^3/uL (130-400); RBC 4.77 10^6/uL (3.93-5.22); RDW 15.1 % (11.7-14.6); RDW-SD 46.8 fL
[2024-01-07 15:41] LABS: BUN 20 mg/dL (7-18); CREATININE 1.1 mg/dL (0.55-1.02); Calcium 9.6 mg/dL (8.5-10.1); Chloride 104 mmol/L (98-107); Estimated GFR 59.71 (mL/min/1.73m2); Glucose 169 mg/dL (74-106); Magnesium 1.9 mg/dL (1.8-2.4); Sodium 142 mmol/L (136-145)
== END 2024-01-07 14:17 | disposition home or self-care (01) ==
LOC: LBO 14:17
PROVIDERS: PCP Student in an Organized Health Care Education/Training Program; Visit Provider Student in an Organized Health Care Education/Training Program
DX: N17.9 Acute kidney failure, unspecified (principal); D75.839 Thrombocytosis, unspecified; B99.9 Unspecified infectious disease
CPT/HCPCS: 36415; 80048; 83735; 85025

== ENCOUNTER 2024-01-11 00:26 | Outpatient (CLI) | payer OTHER, SELFPAY ==
[2024-01-11] MEDS: Normal Saline - Diluent 50 ML VIAL 10 ML IJ (12:47)
[2024-01-11] MEDS: Lidocaine 1% Multi-Dose 50 ML VIAL 15 ML IJ (12:48)
[2024-01-11] MEDS: Omnipaque 300 MG/ML 10 ML BTL IJ (12:49)
[2024-01-11] MEDS: Bupivacaine 0.5% Pres-Free 10 ML VIAL 5 ML IJ (12:50)
[2024-01-11] MEDS: methylPREDNISolone ACETATE 40 MG/ML VIAL 80 MG IM (12:51)
--- NOTE | 2024-01-11 12:52 | DI.RAD_ITS ---
Exam(s) RF JOINT INJ. FLUORO GUID RAD EXAM: RF JOINT INJ. FLUORO GUID RAD CLINICAL HISTORY: L SHOULDER PAIN,arthritis lt glenohumeral joint,fluro guided injection,. TECHNIQUE: 2D and realtime digital imaging was performed. CONTRAST MATERIAL: Intra-articular Omnipaque 300 - COMPARISON: No exams were available for comparison FINDINGS: This therapeutic left shoulder steroid injection was performed at the request of orthopedic surgeon. Patient was consented by myself prior to this procedure. The patient was placed in the supine position on the fluoroscopy table. Using sterile technique and adequate skin-subcutaneous anesthesia, fluoroscopic guidance was used to advance a 22 gauge spinal needle into the glenohumeral joint via an anterior approach. Intra-articul ar position was confirmed with injection of Omnipaque 300. Thereafter a sterile solution of 3 cc 0.5 percent bupivacaine and 80 milligrams Depo-Medrol was injec genoveva into the joint space. Patient tolerated this procedure well and there were no intraprocedural complications. IMPRESSION: Successful left glenohumeral joint steroid injection RADIATION DOSE DELIVERED: Ka,r=2.47mGy
== END 2024-01-11 00:46 ==
PROVIDERS: PCP Student in an Organized Health Care Education/Training Program; Visit Provider Student in an Organized Health Care Education/Training Program
DX: M19.012 Primary osteoarthritis, left shoulder (principal)
CPT/HCPCS: 20610; 77002; J0665; J1010; J2003

== ENCOUNTER 2024-01-15 13:16 | Outpatient (CLI) | payer OTHER, SELFPAY ==
[2024-01-15 12:57] LABS: Abs Immature Grans 0.06 10^3/uL (0.0-0.06); Absolute Basophil Count 0.09 10^3/uL (0.0-0.2); Absolute Eosinophil Count 0.49 10^3/uL (0.0-0.7); Absolute Neutrophil Count 6.81 10^3/uL (1.2-6.7); Basophils % 0.7 %; Eosinophils % 3.8 %; HCT 40.7 % (36.0-46.0); HGB 13.5 g/dL (11.2-15.7); Immature Grans % 0.5 %; Lymphocytes % 35.8 %; MCH 28.2 pg (27.0-33.0); MCHC 33.2 % (32.0-36.0); MCV 85 fL (80-95); MPV 9.1 fL (8.0-11.0); Monocytes % 6.2 %; Platelet Count 419 10^3/uL (130-400); RBC 4.78 10^6/uL (3.93-5.22); RDW 14.7 % (11.7-14.6); RDW-SD 46.4 fL; WBC 12.84 10^3/uL (4.4-10.8)
[2024-01-15 13:16] LABS: Anion Gap 8.1 mmol/L (3-11); BUN 27 mg/dL (7-18); CO2 31.9 mmol/L (21.0-32.0); Calcium 9.6 mg/dL (8.5-10.1); Chloride 102 mmol/L (98-107); Estimated GFR 66.95 (mL/min/1.73m2); Glucose 137 mg/dL (74-106); Magnesium 2.3 mg/dL (1.8-2.4); Potassium 3.5 mmol/L (3.5-5.1); Sodium 142 mmol/L (136-145)
== END 2024-01-15 13:17 | disposition home or self-care (01) ==
LOC: LBO 13:16
PROVIDERS: PCP Student in an Organized Health Care Education/Training Program; Visit Provider Student in an Organized Health Care Education/Training Program
DX: Z91.89 Other specified personal risk factors, not elsewhere classified (principal); R50.81 Fever presenting with conditions classified elsewhere; R60.1 Generalized edema
CPT/HCPCS: 36415; 80048; 83735; 85025

== ENCOUNTER 2024-01-18 01:57 | Outpatient (CLI) | payer OTHER, SELFPAY ==
[2024-01-18 09:56] LABS: Abs Immature Grans 0.02 10^3/uL (0.0-0.06); Absolute Basophil Count 0.06 10^3/uL (0.0-0.2); Absolute Eosinophil Count 0.46 10^3/uL (0.0-0.7); Absolute Lymphocyte Count 3.68 10^3/uL (1.2-3.4); Absolute Monocyte Count 0.76 10^3/uL (0.1-0.8); Absolute Neutrophil Count 5.18 10^3/uL (1.2-6.7); Basophils % 0.6 %; Eosinophils % 4.5 %; HCT 41.8 % (36.0-46.0); Immature Grans % 0.2 %; Lymphocytes % 36.2 %; MCH 27.9 pg (27.0-33.0); MCHC 33.5 % (32.0-36.0); MCV 83 fL (80-95); MPV 9.2 fL (8.0-11.0); Monocytes % 7.5 %; Platelet Count 446 10^3/uL (130-400); RBC 5.01 10^6/uL (3.93-5.22); RDW 14.6 % (11.7-14.6); RDW-SD 44.2 fL; WBC 10.16 10^3/uL (4.4-10.8)
[2024-01-18 10:12] LABS: Anion Gap 8.3 mmol/L (3-11); BUN 23 mg/dL (7-18); CO2 32.7 mmol/L (21.0-32.0); Chloride 101 mmol/L (98-107); Estimated GFR 66.95 (mL/min/1.73m2); Glucose 107 mg/dL (74-106); Potassium 3.7 mmol/L (3.5-5.1); Sodium 142 mmol/L (136-145)
== END 2024-01-18 01:58 | disposition home or self-care (01) ==
PROVIDERS: PCP Student in an Organized Health Care Education/Training Program; Visit Provider Student in an Organized Health Care Education/Training Program
DX: R50.9 Fever, unspecified (principal); R60.9 Edema, unspecified; D72.828 Other elevated white blood cell count
CPT/HCPCS: 36415; 80048; 83735; 85025

== ENCOUNTER 2024-01-28 02:16 | Outpatient (CLI) | payer OTHER, SELFPAY ==
[2024-01-28 15:01] LABS: Abs Immature Grans 0.02 10^3/uL (0.0-0.06); Absolute Basophil Count 0.07 10^3/uL (0.0-0.2); Absolute Eosinophil Count 0.48 10^3/uL (0.0-0.7); Basophils % 0.7 %; Eosinophils % 4.7 %; HCT 39.3 % (36.0-46.0); HGB 13.2 g/dL (11.2-15.7); Immature Grans % 0.2 %; Lymphocytes % 29.2 %; MCH 28.4 pg (27.0-33.0); MCHC 33.6 % (32.0-36.0); MCV 85 fL (80-95); MPV 9.5 fL (8.0-11.0); Monocytes % 6.8 %; Neutrophils % 58.4 %; Platelet Count 406 10^3/uL (130-400); RBC 4.64 10^6/uL (3.93-5.22); RDW 14.1 % (11.7-14.6); RDW-SD 43.3 fL; WBC 10.27 10^3/uL (4.4-10.8)
[2024-01-28 17:05] LABS: Anion Gap 11.6 mmol/L (3-11); BUN 24 mg/dL (7-18); CO2 30.4 mmol/L (21.0-32.0); CREATININE 0.9 mg/dL (0.55-1.02); Calcium 9.8 mg/dL (8.5-10.1); Chloride 102 mmol/L (98-107); Estimated GFR 75.97 (mL/min/1.73m2); Glucose 99 mg/dL (74-106); Magnesium 2.1 mg/dL (1.8-2.4); Potassium 3.6 mmol/L (3.5-5.1); Sodium 144 mmol/L (136-145)
== END 2024-01-28 02:17 | disposition home or self-care (01) ==
PROVIDERS: PCP Student in an Organized Health Care Education/Training Program; Visit Provider Student in an Organized Health Care Education/Training Program
DX: R50.9 Fever, unspecified (principal); R60.9 Edema, unspecified; M79.10 Myalgia, unspecified site; R53.83 Other fatigue; R07.89 Other chest pain; R07.1 Chest pain on breathing
CPT/HCPCS: 36415; 80048; 83735; 85025

== ENCOUNTER 2024-01-29 09:00 | Outpatient (CLI) | payer OTHER, SELFPAY ==
--- NOTE | 2024-01-29 09:00 | RT.EKG_ITS ---
APPROVED REPORT Exam: Resting ECG Reason for Exam: pain with inspiration Patient Location: O HR:67 bpm ECG Measurements Heart Rate 67 AXIS VT 186 P 0 QRSd 105 QRS -41 QT 426 T 1 QTc 450 Conclusion Sinus rhythm...normal P axis, V-rate Borderline left axis deviation Poor R wave progression possible old anterior infarct
== END 2024-01-29 09:01 | disposition home or self-care (01) ==
LOC: DI.KIM 09:00
PROVIDERS: PCP Student in an Organized Health Care Education/Training Program; Visit Provider Nurse Practitioner
DX: R07.89 Other chest pain (principal)
CPT/HCPCS: 93010

== ENCOUNTER 2024-01-29 09:54 | Outpatient (CLI) | payer OTHER, SELFPAY ==
--- NOTE | 2024-01-29 09:15 | DI.RAD_ITS ---
Exam(s) XR CHEST 2V PA LATERAL EXAM: XR CHEST 2V PA LATERAL CLINICAL HISTORY: pain with inspiration R07.89 CHEST PAIN M79.10 MYALGIA STERNAL MUSCLE TECHNIQUE: 2D digital imaging was performed. Two views. COMPARISON: CT CT CHEST PE CTA from 07/25/2023 FINDINGS: HEART: Normal size. Aorta: Not dilated. PULMONARY VASCULATURE: Normal. MEDIASTINUM: Unremarkable. LUNGS: Clear. PLEURAL SPACE: No pleural effusion or pneumothorax. BONE:Unremarkable for age. SOFT TISSUES: Unremarkable. IMPRESSION: No acute abnormality. DATA REPOSITORY: RADIATION DOSE DELIVERED:
== END 2024-01-29 10:14 ==
LOC: DI 09:55
PROVIDERS: PCP Student in an Organized Health Care Education/Training Program; Visit Provider Nurse Practitioner
DX: R07.89 Other chest pain (principal)
CPT/HCPCS: 71046

== ENCOUNTER 2024-02-11 14:36 | Outpatient (CLI) | payer OTHER, SELFPAY ==
[2024-02-11 14:45] LABS: Abs Immature Grans 0.02 10^3/uL (0.0-0.06); Absolute Basophil Count 0.06 10^3/uL (0.0-0.2); Absolute Eosinophil Count 0.26 10^3/uL (0.0-0.7); Absolute Lymphocyte Count 3.55 10^3/uL (1.2-3.4); Absolute Monocyte Count 0.74 10^3/uL (0.1-0.8); Basophils % 0.6 %; Eosinophils % 2.6 %; HCT 39.6 % (36.0-46.0); HGB 13.3 g/dL (11.2-15.7); Immature Grans % 0.2 %; Lymphocytes % 36.1 %; MCH 28.1 pg (27.0-33.0); MCHC 33.6 % (32.0-36.0); MCV 84 fL (80-95); MPV 9.2 fL (8.0-11.0); Monocytes % 7.5 %; Platelet Count 429 10^3/uL (130-400); RBC 4.74 10^6/uL (3.93-5.22); RDW 13.7 % (11.7-14.6); RDW-SD 41.9 fL; WBC 9.83 10^3/uL (4.4-10.8)
[2024-02-11 14:57] LABS: ESR 29 mm/hr (0-30)
[2024-02-11 16:17] LABS: Anion Gap 8.9 mmol/L (3-11); BUN 20 mg/dL (7-18); CO2 32.1 mmol/L (21.0-32.0); Chloride 102 mmol/L (98-107); Creatine Kinase 158 U/L (26-192); Estimated GFR 66.95 (mL/min/1.73m2); Glucose 95 mg/dL (74-106); Potassium 3.6 mmol/L (3.5-5.1); Sodium 143 mmol/L (136-145)
[2024-02-11 16:31] LABS: C-Reactive Protein < 0.50 mg/dL (<or=0.5)
== END 2024-02-11 14:37 | disposition home or self-care (01) ==
LOC: LBO 14:38
PROVIDERS: Nurse Practitioner; PCP Student in an Organized Health Care Education/Training Program; Visit Provider Student in an Organized Health Care Education/Training Program
DX: Z91.89 Other specified personal risk factors, not elsewhere classified (principal); N18.2 Chronic kidney disease, stage 2 (mild); E87.6 Hypokalemia; D75.839 Thrombocytosis, unspecified; I10 Essential (primary) hypertension; M79.10 Myalgia, unspecified site; R53.83 Other fatigue
CPT/HCPCS: 36415; 80048; 82550; 85652; 83735; 85025; 86140

== ENCOUNTER 2024-03-12 10:56 | Outpatient (CLI) | payer OTHER, SELFPAY ==
[2024-03-12 10:05] LABS: Abs Immature Grans 0.02 10^3/uL (0.0-0.06); Absolute Basophil Count 0.06 10^3/uL (0.0-0.2); Absolute Eosinophil Count 0.34 10^3/uL (0.0-0.7); Absolute Lymphocyte Count 3.75 10^3/uL (1.2-3.4); Absolute Monocyte Count 0.63 10^3/uL (0.1-0.8); Absolute Neutrophil Count 4.16 10^3/uL (1.2-6.7); Basophils % 0.7 %; Eosinophils % 3.8 %; HCT 39.1 % (36.0-46.0); HGB 13.3 g/dL (11.2-15.7); Immature Grans % 0.2 %; Lymphocytes % 41.9 %; MCH 28.2 pg (27.0-33.0); MCV 83 fL (80-95); MPV 9.5 fL (8.0-11.0); Neutrophils % 46.4 %; Platelet Count 434 10^3/uL (130-400); RBC 4.72 10^6/uL (3.93-5.22); RDW 13.4 % (11.7-14.6); RDW-SD 40.6 fL; WBC 8.96 10^3/uL (4.4-10.8)
[2024-03-12 10:19] LABS: Anion Gap 10.9 mmol/L (3-11); BUN 19 mg/dL (7-18); CO2 30.1 mmol/L (21.0-32.0); Calcium 9.7 mg/dL (8.5-10.1); Chloride 100 mmol/L (98-107); Estimated GFR 66.95 (mL/min/1.73m2); Glucose 143 mg/dL (74-106); Magnesium 1.7 mg/dL (1.8-2.4); Potassium 3.2 mmol/L (3.5-5.1); Sodium 141 mmol/L (136-145)
== END 2024-03-12 10:57 | disposition home or self-care (01) ==
LOC: LBO 10:57
PROVIDERS: PCP Student in an Organized Health Care Education/Training Program; Visit Provider Student in an Organized Health Care Education/Training Program
DX: R50.9 Fever, unspecified (principal); R60.9 Edema, unspecified
CPT/HCPCS: 36415; 80048; 83735; 85025

== ENCOUNTER 2024-03-17 14:00 | Outpatient (CLI) | payer OTHER, SELFPAY ==
[2024-03-17 14:10] LABS: Abs Immature Grans 0.02 10^3/uL (0.0-0.06); Absolute Basophil Count 0.08 10^3/uL (0.0-0.2); Absolute Eosinophil Count 0.35 10^3/uL (0.0-0.7); Absolute Lymphocyte Count 3.85 10^3/uL (1.2-3.4); Absolute Monocyte Count 0.62 10^3/uL (0.1-0.8); Absolute Neutrophil Count 5.06 10^3/uL (1.2-6.7); Basophils % 0.8 %; Eosinophils % 3.5 %; HCT 39.6 % (36.0-46.0); HGB 13.3 g/dL (11.2-15.7); Immature Grans % 0.2 %; Lymphocytes % 38.6 %; MCH 28.2 pg (27.0-33.0); MCHC 33.6 % (32.0-36.0); MCV 84 fL (80-95); MPV 9.5 fL (8.0-11.0); Monocytes % 6.2 %; Neutrophils % 50.7 %; Platelet Count 444 10^3/uL (130-400); RBC 4.72 10^6/uL (3.93-5.22); RDW 13.3 % (11.7-14.6); RDW-SD 41.1 fL; WBC 9.98 10^3/uL (4.4-10.8)
[2024-03-17 14:53] LABS: Anion Gap 8.1 mmol/L (3-11); BUN 20 mg/dL (7-18); CO2 29.9 mmol/L (21.0-32.0); CREATININE 1.1 mg/dL (0.55-1.02); Calcium 9.4 mg/dL (8.5-10.1); Chloride 102 mmol/L (98-107); Estimated GFR 59.71 (mL/min/1.73m2); Glucose 96 mg/dL (74-106); Magnesium 2.1 mg/dL (1.8-2.4); Potassium 3.7 mmol/L (3.5-5.1); Sodium 140 mmol/L (136-145)
== END 2024-03-17 14:01 | disposition home or self-care (01) ==
LOC: LBO 14:00
PROVIDERS: PCP Student in an Organized Health Care Education/Training Program; Visit Provider Student in an Organized Health Care Education/Training Program
DX: R50.9 Fever, unspecified (principal); R60.0 Localized edema; D72.829 Elevated white blood cell count, unspecified; D75.839 Thrombocytosis, unspecified
CPT/HCPCS: 36415; 80048; 83735; 85025

== ENCOUNTER 2024-04-22 15:05 | Outpatient (CLI) | payer OTHER, SELFPAY ==
[2024-04-22 12:35] LABS: Abs Immature Grans 0.01 10^3/uL (0.0-0.06); Absolute Basophil Count 0.06 10^3/uL (0.0-0.2); Absolute Eosinophil Count 0.34 10^3/uL (0.0-0.7); Absolute Lymphocyte Count 4.14 10^3/uL (1.2-3.4); Absolute Monocyte Count 0.75 10^3/uL (0.1-0.8); Absolute Neutrophil Count 5.04 10^3/uL (1.2-6.7); Basophils % 0.6 %; Eosinophils % 3.3 %; HCT 39.5 % (36.0-46.0); HGB 13.3 g/dL (11.2-15.7); Immature Grans % 0.1 %; MCH 27.8 pg (27.0-33.0); MCHC 33.7 % (32.0-36.0); MCV 83 fL (80-95); MPV 9.5 fL (8.0-11.0); Monocytes % 7.3 %; Neutrophils % 48.7 %; Platelet Count 421 10^3/uL (130-400); RBC 4.79 10^6/uL (3.93-5.22); RDW 13.4 % (11.7-14.6); WBC 10.34 10^3/uL (4.4-10.8)
[2024-04-22 12:49] LABS: Anion Gap 6.8 mmol/L (3-11); BUN 23 mg/dL (7-18); CO2 32.2 mmol/L (21.0-32.0); CREATININE 1.3 mg/dL (0.55-1.02); Calcium 9.8 mg/dL (8.5-10.1); Chloride 102 mmol/L (98-107); Estimated GFR 48.87 (mL/min/1.73m2); Glucose 105 mg/dL (74-106); Potassium 3.9 mmol/L (3.5-5.1); Sodium 141 mmol/L (136-145)
== END 2024-04-22 15:06 | disposition home or self-care (01) ==
LOC: LBO 15:06
PROVIDERS: PCP Family Medicine; Visit Provider Student in an Organized Health Care Education/Training Program
DX: R50.9 Fever, unspecified (principal); R68.83 Chills (without fever); R60.9 Edema, unspecified
CPT/HCPCS: 36415; 80048; 83735; 85025

== ENCOUNTER 2024-04-24 12:59 | Outpatient (CLI) | payer OTHER, SELFPAY ==
[2024-04-24 12:21] LABS: Abs Immature Grans 0.01 10^3/uL (0.0-0.06); Absolute Basophil Count 0.06 10^3/uL (0.0-0.2); Absolute Eosinophil Count 0.31 10^3/uL (0.0-0.7); Absolute Lymphocyte Count 3.54 10^3/uL (1.2-3.4); Absolute Monocyte Count 0.67 10^3/uL (0.1-0.8); Absolute Neutrophil Count 4.32 10^3/uL (1.2-6.7); Basophils % 0.7 %; Eosinophils % 3.5 %; HCT 39.6 % (36.0-46.0); HGB 13.3 g/dL (11.2-15.7); Immature Grans % 0.1 %; Lymphocytes % 39.7 %; MCH 27.7 pg (27.0-33.0); MCHC 33.6 % (32.0-36.0); MCV 83 fL (80-95); MPV 9.4 fL (8.0-11.0); Monocytes % 7.5 %; Neutrophils % 48.5 %; Platelet Count 400 10^3/uL (130-400); RDW 13.4 % (11.7-14.6); RDW-SD 40.3 fL; WBC 8.91 10^3/uL (4.4-10.8)
[2024-04-24 12:40] LABS: Anion Gap 6.5 mmol/L (3-11); BUN 19 mg/dL (7-18); CO2 32.5 mmol/L (21.0-32.0); CREATININE 0.9 mg/dL (0.55-1.02); Calcium 9.7 mg/dL (8.5-10.1); Chloride 103 mmol/L (98-107); Estimated GFR 75.97 (mL/min/1.73m2); Glucose 105 mg/dL (74-106); Potassium 3.5 mmol/L (3.5-5.1); Sodium 142 mmol/L (136-145)
== END 2024-04-24 13:00 | disposition home or self-care (01) ==
LOC: LBO 12:59
PROVIDERS: PCP Family Medicine; Visit Provider Student in an Organized Health Care Education/Training Program
DX: R50.9 Fever, unspecified (principal); R60.0 Localized edema
CPT/HCPCS: 36415; 80048; 83735; 85025

== ENCOUNTER 2024-04-25 00:53 | Outpatient (CLI) | payer OTHER, SELFPAY ==
--- NOTE | 2024-04-25 10:22 | DI.RAD_ITS ---
Exam(s) RF JOINT INJ. FLUORO GUID RAD EXAM: RF JOINT INJ. FLUORO GUID RAD CLINICAL HISTORY: L SHOULDER PAIN,arthritis lt glenohumeral joint,m19.012, fluoro guided. TECHNIQUE: 2D and realtime digital imaging was performed. CONTRAST MATERIAL: Intra-articular Omnipaque 300 into left glenohumeral joint COMPARISON: No exams were available for comparison FINDINGS: This left shoulder glenohumeral joint therapeutic injection was performed at the request of the refer ring orthopedic surgeon. Patient was consented prior to this procedure Patient was placed in supine position on the fluoroscopy table. Using sterile technique and adequate skin-subcutaneous anesthesia, fluoroscopic guidance was used to advance a 22 gauge spinal needle into the glenohumeral joint via an anterior approach. Intra-articular position was confirmed with injection of Omnipaque 300. Thereafter a sterile solution of 40 milligrams Depo-Medrol and 4 cc 0.5 percent bupivacaine was injec genoveva into the joint. Following this procedure prior to discharge the patient developed some skin erythema over chest. She was sent to the emergency room for evaluation. IMPRESSION: Left glenohumeral joint therapeutic steroid injection, as described above. RADIATION DOSE DELIVERED: Ka,r=7.25mGy
[2024-04-25] MEDS: Omnipaque 300 MG/ML 10 ML BTL IJ (10:28)
[2024-04-25] MEDS: methylPREDNISolone ACETATE 80 MG/ML VIAL IM (10:28)
[2024-04-25] MEDS: Bupivacaine 0.5% Pres-Free 10 ML VIAL 5 ML IJ (10:30)
[2024-04-25] MEDS: Lidocaine 1% Pres-Free 30 ML VIAL IJ (10:33)
== END 2024-04-25 01:13 ==
LOC: DI 00:53
PROVIDERS: PCP Family Medicine; Visit Provider Student in an Organized Health Care Education/Training Program
DX: M19.012 Primary osteoarthritis, left shoulder (principal)
CPT/HCPCS: 20610; 77002; J0665; J1010

== ENCOUNTER 2024-04-25 10:36 | Emergency (ER) | payer OTHER, SELFPAY ==
[2024-04-25 10:37] VITALS: BP 136/98; PULSE 80; RESP 16; TEMP 37.1; O2SAT 98
--- NOTE | 2024-04-25 11:10 | ED.GENADUL_ITS ---
Discharge Plan Disposition Patient Disposition: Home Condition: Stable Discharge Details Clinical Impression: Adverse effect of injectable substance Primary Care Provider: Sushil Martinez ED Provider: Andreia Shah Home Meds and New Rx's Prescriptions: No Action glucagon 3 mg/actuation spray,non-aerosol 3 mg intranasal ONCE Qty: 1 3RF Rx Instructions: as a single dose (DME) Scalp Hair Prosthesis See Rx Instructions .Route .MEDSUPPLY Qty: 1 1RF Rx Instructions: Wear as recommendended (DME) Hair Prosthesis See Rx Instructions .Route .MEDSUPPLY Qty: 1 1RF Rx Instructions: As fitted/recommended for daily wear bupropion HCl [Wellbutrin XL] 300 mg tablet extended release 24 hr 300 mg PO DAILY Qty: 90 3RF acarbose 25 mg tablet 25 mg PO TID Qty: 270 3RF Rx Instructions: Continuing per Endo diazepam 5 mg tablet 5 mg PO TID PRN (Reason: muscle spasm) Qty: 30 1RF Rx Instructions: Trial for mm spasm lisinopril 5 mg tablet 5 mg PO BID Qty: 180 3RF Rx Instructions: Re-starting, trial daily x 1 week potassium chloride 20 mEq tablet extended release 20 meq PO PRN PRN (Reason: hypokalemia) Qty: 30 2RF Rx Instructions: taking prn per lab test cgc nystatin 100,000 unit/gram ointment 1 applic topical TID Qty: 30 1RF Rx Instructions: Apply to area of rash @ chest/abdomen mupirocin 2 % ointment 1 applic topical BID Qty: 22 0RF Rx Instructions: apply tid for 10 days (DME) hair prosthesis See Rx Instructions .Route .MEDSUPPLY Qty: 1 1RF Rx Instructions: hair prosthesis for alopecia areata of scalp bariatric fusion chewable complete 2 tab tablet 2 100 ml PO DAILY (DME) glucometer See Rx Instructions .Route .MEDSUPPLY Qty: 1 0RF Rx Instructions: As directed to manage, prevent hypoglycemic episodes (DME) lancets [Comfort Lancets] Misc See Rx Instructions .ROUTE .MEDSUPPLY Qty: 100 1RF Rx Instructions: As directed to check blood glucose daily. No insulin. Dispense covered brand. (DME) Blood Glucose Test Strip See Rx Instructions .ROUTE .MEDSUPPLY Qty: 350 3RF Rx Instructions: As directed to check blood glucose QID. No insulin. Dispense covered brand. hydrochlorothiazide 25 mg tablet 25 mg PO BID PRN (Reason: edema) Qty: 180 3RF Rx Instructions: PRN omeprazole 40 mg capsule,delayed release(DR/EC) 40 mg PO DAILY Qty: 90 3RF amiloride 5 mg tablet 5 mg PO BID Qty: 180 3RF Rx Instructions: Continue per Endocrine (07/2022+) gabapentin 800 mg tablet 800 mg PO BID Qty: 180 3RF Rx Instructions: Take at noon and 1 hour prior to bedtime for RLS (DME) Dexcom G7 Town Manager Misc See Rx Instructions .Route Qty: 1 1RF Rx Instructions: As directed to monitor blood glucose (DME) Dexcom G7 Sensor Device See Rx Instructions .Route Qty: 9 3RF Rx Instructions: As directed to monitor blood glucose celecoxib [Celebrex] 100 mg capsule 100 mg PO BID Qty: 60 1RF Rx Instructions: Trial for shoulder pain/inflammation cyclobenzaprine 30 mg capsule,extended release 24hr 30 mg PO QHS PRN (Reason: muscle spasm) Qty: 10 1RF Rx Instructions: Trial ER dosing for costochondral mm spasm pain ondansetron HCl 4 mg tablet 4 mg PO Q8H Qty: 60 1RF pramipexole 0.25 mg tablet 0.25 mg PO BID Qty: 180 3RF Rx Instructions: Take at lunch time and 1 hour prior to bedtime Bio-K plus 50 billion cell capsule,delayed release(DR/EC) 1 cap PO DAILY Qty: 10 0RF Discharge Instructions Instructions: Allergic Reaction ED, Adverse Drug Reactions, Adult ED Additional Instructions: The symptoms you are having could be from an injection of the numbing medication and steroid into a vessel or nerve or an allergy reaction. You may continue to take 1 or 2 tablets of Benadryl every 6-8 hours as needed if the rash and symptoms persist. Follow up with primary care provider in 3-5 days. Return to ED sooner if any worsening rash, trouble breathing, throat swelling trouble swallowing or concerns. Stand Alone Forms: Work Release Referrals: Sushil Martinez DO [Primary Care Provider] - 3 days HPI General Mode of arrival: ambulatory . Date/Time Provider Initiated Documentation: 04/25/24 10:44 . Limitations to Documentation: no limitations . Information obtained by: patient, RN notes reviewed and old records reviewed . HPI Narrative: 53-year-old female presents to the ER after receiving a intra-articular injection in the [facility] department prior to arrival. She had an injection to her left shoulder which she has had in the past. She did get methylprednisolone, lidocaine and bupivacaine. She reports that immediately after she became flushed and had reddening of her chest and neck up to her face associated with chills. The redness has somewhat subsided. She does still have a little bit of redness noted to her anterior neck. No other hives or you carry at this time. She denies any problems with breathing no throat closing. She reports that she feels fine. He does have a history of cellulitis menopausal symptoms diabetes type 2 lymphedema sustained V. tach kidney stones hypertension irritable bowel syndrome Marylou's thyroiditis and anemia. Related Data Home Medications ?Medication ?Instructions ?Recorded ?Confirmed bariatric fusion chewable complete 2 100 ml PO DAILY 12/28/20 03/31/24 glucometer #1 ea 04/21/21 03/31/24 lancets (Comfort Lancets) #100 ea 04/26/21 03/31/24 glucagon 3 mg/actuation nasal spray 3 mg intranasal ONCE severe 07/22/21 03/31/24 hypoglycemia #1 ea blood sugar diagnostic (Blood #350 ea 03/29/22 03/31/24 Glucose Test strips) Scalp Hair Prosthesis #1 ea 06/02/22 03/31/24 hydrochlorothiazide 25 mg tablet 25 mg PO BID PRN edema #180 tabs 06/14/23 03/31/24 amiloride 5 mg tablet 5 mg PO BID #180 tabs 06/16/23 03/31/24 omeprazole 40 mg capsule,delayed 40 mg PO DAILY #90 tabs 06/16/23 03/31/24 release gabapentin 800 mg tablet 800 mg PO BID #180 tabs 06/28/23 03/31/24 L. acidophilus,casei,rhamnosus 50 1 cap PO DAILY #10 caps 07/13/23 03/31/24 billion cell capsule,delayed release (Bio-K plus) blood-glucose meter,continuous #1 ea 07/15/23 03/31/24 (Dexcom G7 Town Manager) blood-glucose sensor (Dexcom G7 #9 ea 07/15/23 03/31/24 Sensor device) nystatin 100,000 unit/gram topical 1 applic topical TID #30 grams 07/23/23 03/31/24 ointment Hair Prosthesis #1 ea 08/03/23 03/31/24 acarbose 25 mg tablet 25 mg PO TID #270 tabs 08/03/23 03/31/24 bupropion HCl 300 mg 24 hr tablet, 300 mg PO DAILY #90 tabs 08/03/23 03/31/24 extended release (Wellbutrin XL) celecoxib 100 mg capsule (Celebrex) 100 mg PO BID #60 caps 01/09/24 03/31/24 cyclobenzaprine 30 mg 30 mg PO QHS PRN muscle spasm #10 02/08/24 03/31/24 capsule,extended release 24 hr caps diazepam 5 mg tablet 5 mg PO TID PRN muscle spasm #30 02/12/24 03/31/24 tabs lisinopril 5 mg tablet 5 mg PO BID #180 tabs 02/12/24 03/31/24 potassium chloride 20 mEq 20 meq PO PRN PRN hypokalemia #30 02/12/24 03/31/24 tablet,extended release tabs mupirocin 2 % topical ointment 1 applic topical BID #22 grams 03/31/24 03/31/24 ondansetron HCl 4 mg tablet 4 mg PO Q8H #60 tabs 04/11/24 pramipexole 0.25 mg tablet 0.25 mg PO BID #180 tabs 04/14/24 Previous Rx's ?Medication ?Instructions ?Recorded glucometer #1 ea 04/21/21 lancets (Comfort Lancets) #100 ea 04/26/21 glucagon 3 mg/actuation nasal spray 3 mg intranasal ONCE severe 07/22/21 hypoglycemia #1 ea blood sugar diagnostic (Blood #350 ea 03/29/22 Glucose Test strips) Scalp Hair Prosthesis #1 ea 06/02/22 hydrochlorothiazide 25 mg tablet 25 mg PO BID PRN edema #180 tabs 06/14/23 amiloride 5 mg tablet 5 mg PO BID #180 tabs 06/16/23 omeprazole 40 mg capsule,delayed 40 mg PO DAILY #90 tabs 06/16/23 release gabapentin 800 mg tablet 800 mg PO BID #180 tabs 06/28/23 L. acidophilus,casei,rhamnosus 50 1 cap PO DAILY #10 caps 07/13/23 billion cell capsule,delayed release (Bio-K plus) blood-glucose meter,continuous #1 ea 07/15/23 (Dexcom G7 Town Manager) blood-glucose sensor (Dexcom G7 #9 ea 07/15/23 Sensor device) nystatin 100,000 unit/gram topical 1 applic topical TID #30 grams 07/23/23 ointment Hair Prosthesis #1 ea 08/03/23 acarbose 25 mg tablet 25 mg PO TID #270 tabs 08/03/23 bupropion HCl 300 mg 24 hr tablet, 300 mg PO DAILY #90 tabs 08/03/23 extended release (Wellbutrin XL) celecoxib 100 mg capsule (Celebrex) 100 mg PO BID #60 caps 01/09/24 cyclobenzaprine 30 mg 30 mg PO QHS PRN muscle spasm #10 02/08/24 capsule,extended release 24 hr caps diazepam 5 mg tablet 5 mg PO TID PRN muscle spasm #30 02/12/24 tabs lisinopril 5 mg tablet 5 mg PO BID #180 tabs 02/12/24 potassium chloride 20 mEq 20 meq PO PRN PRN hypokalemia #30 02/12/24 tablet,extended release tabs mupirocin 2 % topical ointment 1 applic topical BID #22 grams 03/31/24 ondansetron HCl 4 mg tablet 4 mg PO Q8H #60 tabs 04/11/24 pramipexole 0.25 mg tablet 0.25 mg PO BID #180 tabs 04/14/24 Allergies Allergy/AdvReac Type Severity Reaction Status Date / Time atropine Allergy Intermediate HIVES, Verified 04/25/24 10:41 SWOLLEN spironolactone Allergy Intermediate Skin Rash Verified 04/25/24 10:41 eplerenone AdvReac Intermediate swelling; Verified 04/25/24 10:41 SOB General Stated Complaint: Allergic JOBY: 3 Review of Systems All systems reviewed & are unremarkable except as noted in HPI and below Constitutional Constitutional: Reports as per HPI and Reports chills Cardiovascular Cardiovascular: Denies dyspnea Respiratory Respiratory: Denies cough, Denies dyspnea, Denies stridor and Denies wheezing Integumentary/Breasts Skin/Breast: Reports as per HPI, Denies pruritus and Reports erythema Allergic/Immunologic Allergic/Immunologic: Denies wheezing Exam Narrative Exam Narrative: Constitutional: Alert and oriented x3. Appears stated age. Normal body habitus. Head: Normocephalic, no trauma. Eyes: Pupils PERRL, Red reflex noted, EOM's intact. Eyelids symmetrical without lesions, discharge, or swelling. ENT: Bilateral TM's WNL, External ear normal to inspection, no mastoid TTP, swelling, or erythema, Nasal turbinates WNL, no nasal discharge. Normal dentition, Posterior pharynx WNL, no exudate. Chest: RRR, Normal S1, S2, distal pulses intact. Resp: Lungs clear to auscultation bilaterally, no wheezes, rales, or rhonchi. Abdomen: Soft, non-distended, Normoactive bowel sounds all 4 quads. Musculoskeletal: Normal gait, Moves all 4 extremities without difficulty. Skin: Slightly erythemic to anterior chest and neck, no urticaria or hives noted. Capillary refill less than 2 sec. Neurologic: Cranial nerves II-XII intact. Alert and oriented x 3. Motor: No deficits noted. Sensory: Intact bilaterally all 4 extremities. Hematologic/Lymphatic: No ecchymosis, no lymphadenopathy. Course Vital Signs Vital signs: Vital Signs Temperature 37.1 C 04/25/24 10:37 Pulse 80 04/25/24 10:37 Respiratory Rate 16 04/25/24 10:37 Blood Pressure 136/98 H 04/25/24 10:37 Pulse Oximetry 98 04/25/24 10:37 Temperature 37.1 C 04/25/24 10:37 Temperature Source Temporal Artery Scan 04/25/24 10:37 Pulse 80 04/25/24 10:37 Respiratory Rate 16 04/25/24 10:37 Blood Pressure 136/98 H 04/25/24 10:37 Blood Pressure Position Sitting 04/25/24 10:37 Pulse Oximetry 98 04/25/24 10:37 Oxygen Delivery Method Room Air 04/25/24 10:37 Oxygen Flow Rate 0 04/25/24 10:37 Pain Level 0 04/25/24 10:37 Medical Decision Making 53-year-old female presents to the ER after receiving a intra-articular injection in the [facility] department prior to arrival. She had an injection to her left shoulder which she has had in the past. She did get methylprednisolone, lidocaine and bupivacaine. She reports that immediately after she became flushed and had reddening of her chest and neck up to her face associated with chills. The redness has somewhat subsided. She does still have a little bit of redness noted to her anterior neck. No other hives or you carry at this time. She denies any problems with breathing no throat closing. She reports that she feels fine. He does have a history of cellulitis menopausal symptoms diabetes type 2 lymphedema sustained V. tach kidney stones hypertension irritable bowel syndrome Marylou's thyroiditis and anemia. Will Give 25 mg of Benadryl p.o., continue to observe and reevaluate. Patient informed of plan of care and is in agreement. 1140: On patient reevaluation she reports that she was feeling a little bit of heaviness or swelling in the back of her neck, she also reports some numbness type sensation up to her nose, I did discuss with her that this could be because she got bupivacaine and lidocaine injection along with the steroid. Redness has somewhat decreased. She is speaking in full sentences no trouble breathing. Cussed home care with her to continue taking 1-2 Benadryl's every 6-8 hours as needed for rash and itching return to the ER for any worsening trouble breathing or swallowing or concerns. Differential diagnose includes but not limited to allergic reaction, reaction to the injection, or injection of the lidocaine into a vessel or nerve. Patient remained hemodynamically stable, speaking in full sentences vital signs stable throughout the remainder of stay. This text was generated using [employer] dictation system, please disregard any oddities of phrase or misspellings. Medical Records Medical records reviewed: Yes I reviewed the patient's medical records. Quality:[facility] Related Social Needs: No Data to Display [facility] All Active Problems (Updated 04/25/24 @ 11:48 by Andreia Shah NP) Adverse effect of injectable substance (Acute) Pain of right heel (Acute) Diaphragmatic disorder (Acute) Muscle spasm (Acute) Immunization due (Acute) Chronic nausea (Acute) Managing with diet; ondansetron prn Leg pain (Acute) Lymphedema due to infection (Acute) Probable Dx, 2' LE infection (vs infection progression to sepsis 2' lymphedema). APPRECIATE LYMPEDEMA TX Venous insufficiency of left leg (Acute) Muscle spasm of back (Acute) Usually manageable, working with chiro.. considering dry-needling Edema of left ankle (Acute) Cellulitis of left lower leg (Acute) 07/02, ED--> Hosptlztn for inner left leg. Atypical rxn, with sepsis (although blood Cx NEG) Thrombocytosis (Acute) Post hospitalization, 07/2023 presumed reactive? possible rebound? (Hx trending upwards during hosp stay, w/o comment) [ ] Heme, ID Left leg swelling (Acute) Arthritis of left glenohumeral joint (Acute) Severe arthritis per ortho, per pt report; trial Celebrex (01/2024) CKD (chronic kidney disease) stage 2, GFR 60-89 ml/min (Acute) New baseline?! Ill feeling (Acute) Recent episodes of somnolence, off-balance & spells of being out of my body. Possibly psych rxn (2' anx, grief, milestones) .. but monitoring. Hypertension (Chronic) Hx HTN .. with med d/c post bariatric surg wt loss.. some elevated BPs, 05/2022, re-start low-dose lisinopril. LVH (left ventricular hypertrophy) (Acute) Newly noted, although Hx left axis dev (-90, -30) .. Hx HTN, Flash Pulm Edema (2019), obesity, s/p bariatric surgery. Hypoglycemia (Acute) Hx BG < 35 per CGM Acute hypokalemia (Acute) Disorder of iron metabolism (Acute) [place] [facility] [place] Elevated PTHrP level (Acute) Per 03/22/22 [facility] [place] Hyperparathyroidism (Acute) Postprandial hypoglycemia (Acute) PP Hyperinsulinemic hypogly Dx per [facility] [place] ([place]). 04/2022. per observation and tel d/w Dr. Ortega (future Endo, [facility]).. vs exercise-induced Status post bariatric surgery (Acute) Successful weight loss, but dangerous, symptomatic HYPOglycemia [neg dumping syndrome per [facility]] Facial twitching (Acute) Nodule of left lung (Acute) 3mm, incidental finding, LLL (12/2020 CT). [ ] 6 mo FU.. Paresthesias (Acute) Hypotension (Acute) post gastric bypass ... lowering ACEi, BB, CCB. DIuretics in place 2' LE edema (albeit improved). Depressive disorder (Chronic 02/21/12) Wellbutrin 2012, discon 12/2012, restart 05/2013 Hx of Marylou thyroiditis (Acute) Imbalance (Acute) Cervical radiculopathy (Acute) Hematuria (Acute) Fatty liver (Acute) 10/02/18 Dr Schroeder/[facility] Migraine headache with aura (Chronic) DR. VALDEZ 08/29/11 [employer] works Vertigo and/or pain Serrated adenoma of colon (Acute 07/07/15) Dr. Contreras, sessile colonic polyp, inflammatory polyp Sensorineural hearing loss, bilateral (Chronic 11/01/17) Restless leg (Acute 03/31/15) Some relief with iron infusion (albeit reaction to infusion), 05/2018. 06/16/19 f/u at sleep clinic Reflux esophagitis (Acute 07/07/15) Dr. Contreras gastritis Positive TG (antinuclear antibody) (Acute 06/07/15) Incomplete tear of left rotator cuff (Acute 05/31/16) Alopecia areata (Acute 05/23/11) Dx'ed 1990s Hair prosthesis Medical History (Updated 04/25/24 @ 11:48 by Andreia Shah, JANES) Pre-ulcerative corn or callous b/l Skin lesion Mild wound, 2' probable abd intertrigo. Hx of sepsis Cellulitis Menopausal symptoms Mastocytosis NEG per testing ... [place] Dr. Irma Schroeder, [facility] Working DDX despite neg labs. Numerous tests ordered .. recommend some time off to be able to manage tests, rest, rehydrate. Scab of knee fell last week, rough/dry scab, but irritated .. Trial debride @ home, consider surgtery if tender. Diarrhea (10/29/15) Chronic, secretory .. s/p multiple [place], Bx. Trial cholestyramine, 10/2018, ik planned. History of endometrial biopsy (~05/26/22) [facility], 05/26/22 Post-resection malabsorption Per 03/22/22 [facility] [place] note Heel lesion Right heel, cracked skin .. inner foot tenderness .. out of proportion tenderness .. possible assoc with fever? (improved with soaking, but not closing) Fever Over 1 week; T 103/102/99; Neg COVID; Awaiting Flu SARS-CoV-2 positive (~10/26/21) [place] exposure Dtr (+) .. Sore Throat, lab [ ] Dumping syndrome (04/12/21) NOT per Bariatric Team.. Dx per [facility] [place] .. [facility] Bariatric Team re-eval as NEG for dumping syndrome, 05/2021 Complicated grieving Her basically healthy mo due to COVID19 infection. She was intubated within days of becoming sick, sending out a cheerful text 4 days beforehand! Monisha has cancelled the trip just before flights, etc were shut down; she was originally worried for her fa 2' health issues and dementia. Close-knit family; inability for gathering for .. video/webexed with family in [place] (mo in Fl). Diabetes mellitus type 2 in obese Improved s/p bariatric surgery and wt loss BUT HYPOglycemia Preeclampsia Flash pulmonary edema Lymphedema Possibly affecting left ankle, post infection, 07/2023. Hx x2-3x? (referring to PT for evaluation and recommendations).. Bunion 12/24/18-nelson Yarbrough DPM Abnormal serum creatinine level (07/2018) Serious Creatinine elevation, with resolution between episodes of dehydration .. Sustained VT (ventricular tachycardia) during hypokalemia episode Angioedema 10/02/18 Dr Schroeder/[facility] Flushing 10/02/18 Dr Schroeder/[facility] Elevated plasma metanephrines (08/2018) Ordered by Endo, CT (Abd) [ ] ... follow up with Endo week of October 07. 08/2018, ik Kidney stone (02/27/12) Dehydration (~08/21/18) Several episodes now .. She can almost gauge her K levels based on mm weakness. [ ] BMP [ ] IVF-KCl Bolus-K have helped with hypokalemia in between bouts of diarrhea/dehydration when IVF not needed. 09/2018, ik Rectal bleeding (03/02/15) Episodic - Was diagnosed with AVM's Impaired fasting glucose (02/11/14) A1C 6.1% 12/2012 .. A1C 5.8 07/04/18. Hypokalemia (11/07/16) Chronic, possible 2' IBS/Diarrhea. Continued despite GI improvements, albeit improved. Trial Eplerenone, to be followed by HCTZ decrease. 10/09/18 I ntermittent improvement, but unsteady and unpredictable .. Monisha seems unable to maintain her own K levels WNL w/o bolus/infusions at this time. Unable to tolerate K-sparing diuretics. Cont to research, evaluate, consult .. 09/2018, ik Essential hypertension (12/05/12) Elevated BPs, especially DBP. Hx high BP since of twins (20yrs), noted in Nephro note (2017). HCTZ used x years for HTN & Edema. Spirono not tolerated (Hives/Flush). Trial Eplerenone, 10/09/18, ik Unable to tolerate eplerenone, angioedema-like reactions to K-sparing diuretics.. 09/2018, ik Irritable bowel syndrome diarrhea predominant Alopecia Hx of adenomatous colonic polyps Marylou's thyroiditis Depression Anemia Reflux esophagitis Surgical History S/P laparoscopic hysterectomy (~12/2022) Extensive lysis of adhesions, bilateral salpingectomy and cystoscopy, repair of vaginal lacerations for chronic pelvic pain and fibroid uterus. History of Nadia-en-Y gastric bypass (~11/2019) H/O colonoscopy (12/05/17) History of esophagogastroduodenoscopy (EGD) (12/05/17) Tonsillectomy section x3 Endometrial Ablation 2007 2012 EGD - MAC 2016 Colonoscopy - MAC (03/16/14) w/ bx 2016-serrated adenomatous polyp Most recent 12/05/2017 Family History Mother Pulmonary hypertension Heart disease valve replacement Father Prostate cancer Essential hypertension Parkinsons Sister Uterine cancer Brother Heart disease Father Hypertension Mother Heart disease Maternal Grandfather Diabetes Sister Age: 59 Cancer Other Colon cancer Social History Smoking/Tobacco Use Status: Never Smoking risk assessment performed?: Yes Alcohol Intake: current Alcohol Intake frequency: holidays/special occasions only Alcohol type: wine Drug use: Never Substance use type: does not use Adopted: No Caregiver/Support person: No Household members: spouse and other Details: Partner - Jayne, children Housing: house Number of Children: 4 number of grandchildren: 0 Communication Needs: Corrective Lenses Education Level: college current occupation: Daily today tested negative on this on the testing day negative negative di Pets and animals: Yes Pets and animals: cat(s) and dog(s) Sexually active: Yes Do you think of yourself as: lesbian/peña/homosexual Current gender identity: female What is your relationship status?: living with partner Panel score (0-1 are the most socially isolated patients): 1 What type of physical activity do you participate in: walking Duration: 15-30 minutes/day Frequency: 3-4 times per week Seatbelt use: always Working smoke detector in home: Yes Fire extinguisher in home: Yes Carbon monox detector in home: Yes Firearms in home: No Do you feel safe at home: Yes Do you feel safe in your relationship?: Yes Additional Social history: Lives in [place] with Jayne and their 2 18 yo girls, 4 older kids out of home. 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 Female Reproductive History Menstrual control method: permanent sterilization History History 3 Para 4 Hx # Term Pregnancies Multiple births 1 Hx # Pregnancies Ectopic pregnancies AB induced Hx Number of Living Children 4 AB spontaneous
[2024-04-25] MEDS: diphenhydrAMINE 25 MG CAP PO (11:15)
[2024-04-25 12:13] VITALS: BP 139/85; PULSE 73; RESP 18; O2SAT 96
== END 2024-04-25 12:17 | disposition home or self-care (01) ==
PROVIDERS: Emergency Provider Registered Nurse Emergency; PCP Family Medicine
DX: T50.905A Adverse effect of unspecified drugs, medicaments and biological substances, initial encounter (principal); L27.1 Localized skin eruption due to drugs and medicaments taken internally
CPT/HCPCS: 99283

== ENCOUNTER 2024-05-05 14:11 | Outpatient (REF) | payer OTHER, SELFPAY | END 2024-05-05 14:12 | disposition home or self-care (01) | LOC: LBN 14:11 | PROVIDERS: PCP Family Medicine; Visit Provider Nurse Practitioner Women's Health | DX: R30.0 Dysuria (principal); N76.0 Acute vaginitis | CPT/HCPCS: 87086; 87480; 87510; 87660 ==

== ENCOUNTER 2024-07-01 01:11 | Outpatient (CLI) | payer OTHER, SELFPAY ==
--- NOTE | 2024-07-01 12:58 | DI.MAMMO_ITS ---
Exam(s) MAMMO SCREENING EXAM: MAMMO SCREENING CLINICAL HISTORY: screening,z12.39 TECHNIQUE: Bilateral full field digital CC and MLO mammographic images were obtained with 3D tomosyn thesis and utilizing computer aided detection (CAD). COMPARISON: Available for comparison. FINDINGS: Masses/Architectural Distortion: None seen. Microcalcifications: No suspicious pleomorphic-type are seen. Skin Thickening/Nipple Retraction: None. IMPRESSION: 1. No significant interval change with no specific features of malignancy noted. 2. Unless there is more urgent need, screening mammography is recommended, as per [employer] guidelines. BI-RADS Category 1 - Negative Breast Density - Category C - Heterogeneously dense Breast density category C or D implies that the patient has dense breast tissue. Dense breast tissue is very common and is not abnormal but dense breast tissue can make it harder to find cancer on a ma mmogram. Also, dense breast tissue may increase their breast cancer risk. This information about the result of the mammogram report was provided to the patient to raise their awareness. Use this report when you speak with the patient about their risks for breast cancer, which includes their family hist ory. At that time, you may recommend for more screening tests (Ultrasound or MRI) as they might be us eful based on their risk. A negative radiographic report should not delay biopsy if a dominant or clinically suspicious mass is present. Up to ten percent of cancers are not identified on mammography. A negative report may reinforce clinical impression. Adenosis and dense breasts may obscure an underlying neoplasm. False positive reports average 6 to 10%. Patient will receive a letter notifying them of these results.
== END 2024-07-01 01:31 ==
LOC: DI 01:12
PROVIDERS: PCP Family Medicine; Visit Provider Family Medicine
DX: Z12.31 Encounter for screening mammogram for malignant neoplasm of breast (principal); R92.333 Mammographic heterogeneous density, bilateral breasts
CPT/HCPCS: 77063; 77067

== ENCOUNTER 2024-07-03 10:49 | Outpatient (CLI) | payer OTHER, SELFPAY ==
--- NOTE | 2024-07-03 10:15 | DI.DEXA_ITS ---
Exam(s) XR DEXA BONE DENSITY W/WO JAY EXAM: XR DEXA BONE DENSITY W/WO JAY CLINICAL HISTORY: s/p bariatric surgery, z98.84 TECHNIQUE: COMPARISON: CR XR DEXA BONE DENSITY W/WO JAY from 03/14/2022 FINDINGS: Lateral Spine Image: Unremarkable. No compression deformities identified. Left hip: Total T-Score: 1.3 Total Z-Score: 2.0 T- and Z-scores: Within normal limits. Lumbar Spine: Total T-Score: 0.5 Total Z-Score: 1.5 T- and Z-scores: Within normal limits. IMPRESSION: No evidence of osteoporosis.
== END 2024-07-03 11:09 ==
LOC: DI 10:49
PROVIDERS: PCP Family Medicine; Visit Provider Family Medicine
DX: Z98.84 Bariatric surgery status (principal); Z13.820 Encounter for screening for osteoporosis
CPT/HCPCS: 77080

== ENCOUNTER 2024-07-16 10:07 | Outpatient (CLI) | payer OTHER, SELFPAY ==
--- NOTE | 2024-07-16 10:35 | DI.MRI_ITS ---
Exam(s) MR UPPER JOINT LT WO EXAM: MR UPPER JOINT LT WO CLINICAL HISTORY: L SHOULDER PAIN M19.012 OSTEOARTHRITIS TECHNIQUE: Multiplanar multisequence MRI of the shoulder was performed. COMPARISON: MR MRI - L UPPER JOINT WO CONT from 03/21/2016 FINDINGS: MARROW:There is no evidence of fracture, Hill-Sachs deformity, nor ominous osseous lesions. However, in addition to degenerative subarticular cysts at the level the greater tuberosity there are also jac e degenerative subarticular cysts in the posterior aspect of the humeral head with significant surrou nding bone edema. GLENOHUMERAL JOINT: There are advanced osteoarthritic degenerative changes in the glenohumeral joint with advanced articular cartilage loss on both sides the joint and there is a prominent couch-type os teophyte on the inferior articular surface of the humeral head. There is a small joint effusion. Th ere are no obvious loose intra-articular bodies. Synovial thickening is noted in the inferior recess . There is also some bone edema evident in the osseous glenoid. ROTATOR CUFF MECHANISM: AC JOINT/ACROMIUM: Os acromiale is noted. There are minimal if any significant degenerative changes in the AC joint.. There does appear to be some degenerative change at the level of the os acromial w ith some impingement at this level noted. Supraspinatus: There is tendinosis signal within the supraspinatus tendon at and above the foot pad i nsertion site, most prominent at the conjoined tendon level. There is does not appear to be a full-t hickness tear of the supraspinatus tendon. No muscle belly atrophy. Infraspinatus: There is tendinosis signal evident at the conjoined insertion site. No full-thickness tear. No atrophy. Teres Minor: Intact. There is some fatty atrophy of the teres minor evident. However, there does no t appear to be a tear of the tendon. Subscapularis/anterior cuff: There is tendinitis signal within the multi pending 8 insertional fibers . There is no atrophy of the muscle belly. BICEPS TENDON: Appears to exhibit element of split tearing within the intertubercular groove. Intra- articular portion appears intact. LABRUM: There is focal signal abnormality in the superior labrum immediately posterior to the biceps insertion site. Probable sublabral sulcus. Mild increased signal is noted in the posterior inferior labrum. The inferior labrum is attenuated. There is tearing of the anterior labrum with subjacent bone edema in the anterior osseous glenoid. There is no evidence of paralabral cyst. QUADRILATERAL SPACE: No evidence of mass in the region of the axillary nerve and dorsal circumflex hu meral vessels. Visualized triceps muscle at this level appears unremarkable. IMPRESSION: 1. There are advanced osteoarthritic degenerative changes in the glenohumeral joint which have signif icantly further progressed when compared to the prior MRI of 2016. There is significant articular ca rtilage loss and subarticular bone edema both in the posterior aspect of the humeral head and osseous glenoid and there is a prominent couch-type osteophyte on the inferior articular surface of the marco ral head. Small joint effusion but no obvious loose intra-articular bodies. 2. There is os acromiale again noted with some impingement at this level. No obvious impingement at the AC joint. 3. There is tendinosis signal in both the supraspinatus and infraspinatus which is predominately at t he conjoined tendon level. No full-thickness tear of these tendons nor atrophy. 4. There is selective fatty atrophy of the teres minor muscle which has further progressed from 2016 , not associated with an obvious tendon tear without an obvious tendon tear. There is no atrophy of the other muscle bellies of the rotator cuff group. There is no atrophy of the overlying deltoid mus yoav. There is no obvious mass nor cyst within the quadrilateral/quadrangular space. 5. There is degenerative tearing of the anterior labrum and subjacent bone edema in the osseous ashleigh oid. 6. There appears to be subtle split tearing of the biceps tendon within the intertubercular groove. No displacement from the intertubercular groove. There is a small amount of fluid in its tendon she ath within the intertubercular groove. Biceps tendon is not detached from the anterosuperior labrum. DATA REPOSITORY:
== END 2024-07-16 10:27 ==
LOC: DI 10:08
PROVIDERS: PCP Family Medicine; Visit Provider Student in an Organized Health Care Education/Training Program
DX: M19.012 Primary osteoarthritis, left shoulder (principal)
CPT/HCPCS: 73221

== ENCOUNTER 2024-07-23 03:31 | Outpatient (CLI) | payer OTHER, SELFPAY ==
[2024-07-23 10:46] LABS: Calculated LDL 84 mg/dL (<100); Cholesterol 184 mg/dL (<200); HDL Cholesterol 76 mg/dL (>or=50); Triglyceride 123 mg/dL (<150)
== END 2024-07-23 03:32 | disposition home or self-care (01) ==
LOC: LBO 03:31
PROVIDERS: PCP Family Medicine; Visit Provider Family Medicine
DX: I95.9 Hypotension, unspecified (principal)
CPT/HCPCS: 36415; 80061

== ENCOUNTER 2024-08-27 14:45 | Outpatient (REF) | payer OTHER, SELFPAY | END 2024-08-27 14:46 | disposition home or self-care (01) | LOC: LBN 14:45 | PROVIDERS: PCP Family Medicine; Visit Provider Nurse Practitioner Family | DX: R32 Unspecified urinary incontinence (principal) | CPT/HCPCS: 87086 ==

== ENCOUNTER 2024-10-10 05:59 | Day surgery (SDC) | payer OTHER, SELFPAY ==
[2024-10-10] VITALS (46 sets, daily range): BP systolic 115–146; BP diastolic 70–100; PULSE 66–91; RESP 10–23; TEMP 36.3–36.6; O2SAT 91–100; BMI 35.7
[2024-10-10] MEDS: Lactated Ringers 1,000 ML 30 ML IV (06:55)
--- NOTE | 2024-10-10 06:59 | W.ANESPRE ---
General Info Date of Service Date Performed: 10/10/24 Height: 5 ft 4 in Weight: 94.4 kg Body Mass Index (BMI): 35.7 Surgical Procedure: Operation Date: 10/10/24 07:40 Proposed Procedure Side Surgeon p Anatomic vs Reverse Shoulder Total Arthroplasty, Biceps Tenodesis Left Tremayne Hernandez MD Meds Allergies and Home Medications Allergies Allergy/AdvReac Type Severity Reaction Status Date / Time atropine Allergy Intermediate HIVES, Verified 10/10/24 06:14 SWOLLEN spironolactone Allergy Intermediate Skin Rash Verified 10/10/24 06:14 eplerenone AdvReac Intermediate swelling; Verified 10/10/24 06:14 SOB Home Medication ?Medication ?Instructions ?Recorded bariatric fusion chewable complete 2 100 ml PO DAILY 12/28/20 glucometer #1 ea 04/21/21 lancets (Comfort Lancets) #100 ea 04/26/21 glucagon 3 mg/actuation nasal spray 3 mg intranasal ONCE severe 07/22/21 hypoglycemia #1 ea blood sugar diagnostic (Blood #350 ea 03/29/22 Glucose Test strips) Scalp Hair Prosthesis #1 ea 06/02/22 L. 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) cyclobenzaprine 30 mg 30 mg PO QHS PRN muscle spasm #10 02/08/24 capsule,extended release 24 hr caps diazepam 5 mg tablet 5 mg PO TID PRN muscle spasm #30 02/12/24 tabs lisinopril 5 mg tablet 5 mg PO BID #180 tabs 02/12/24 potassium chloride 20 mEq 20 meq PO PRN PRN hypokalemia #30 02/12/24 tablet,extended release tabs ondansetron HCl 4 mg tablet 4 mg PO Q8H #60 tabs 04/11/24 pramipexole 0.25 mg tablet 0.25 mg PO BID #180 tabs 04/14/24 Hair Prosthesis #1 ea 05/22/24 hydrochlorothiazide 25 mg tablet 25 mg PO BID PRN edema #180 tabs 06/12/24 gabapentin 800 mg tablet 800 mg PO BID #180 tabs 06/22/24 celecoxib 100 mg capsule (Celebrex) 100 mg PO BID PRN 08/04/24 bupropion HCl 300 mg 24 hr tablet, 300 mg PO DAILY #90 tabs 09/01/24 extended release (Wellbutrin XL) omeprazole 40 mg capsule,delayed 40 mg PO DAILY #90 tabs 09/01/24 release amiloride 5 mg tablet 5 mg PO BID #180 tabs 09/15/24 blood-glucose sensor (Dexcom G7 #9 ea 09/18/24 Sensor device) Current Visit Medications: Current Medications Generic Name Dose Route Start Last Admin Trade Name Freq PRN Reason Stop Dose Admin Ringer's Solution 1,000 mls @ 30 mls/hr 10/10/24 06:00 IV 10/10/24 23:59 INFUSION JACQUELIN Cefazolin Sodium/Dextrose 2 gm in 50 mls @ 100 mls/hr 10/10/24 06:00 Ancef Duplex IVPB 10/10/24 23:59 PREOP JACQUELIN Tranexamic Acid/Sodium Chloride 1,000 mg in 100 mls @ 600 mls/hr 10/10/24 06:00 IVPB 10/10/24 23:59 PREOP JACQUELIN IV Miscellaneous Supplies 1 each 10/10/24 06:00 Iv Access IV 10/10/24 23:59 DIRECTED JACQUELIN Sodium Chloride 0 ml 10/10/24 06:00 Normal Saline Flush 10 Ml Syr IV 10/10/24 23:59 PRN PRN Sodium Chloride 0 ml 10/10/24 06:00 Normal Saline 10 Ml Vial IJ 10/10/24 23:59 DIRECTED PRN Sterile Water 0 ml 10/10/24 06:00 Water,Injection,Sterile 10 Ml Vial IJ 10/10/24 23:59 DIRECTED PRN PFSH Active Problems Active Problems: Problem Status Onset Code Urinary incontinence Acute R32 Cellulitis of left foot Acute L03.116 Controlled type 2 diabetes mellitus Acute E11.9 Pain of right heel Acute M79.671 Diaphragmatic disorder Acute J98.6 Muscle spasm Acute M62.838 Chronic nausea Acute R11.0 Leg pain Acute M79.606 Lymphedema due to infection Acute I89.0, B99.9 Left leg swelling Chronic M79.89 Arthritis of left glenohumeral joint Acute M19.012 Hypertension Chronic I10 Elevated PTHrP level Acute R79.89 Hyperparathyroidism Acute E21.3 Nodule of left lung Acute R91.1 Serrated adenoma of colon Acute 07/07/15 D12.6 Sensorineural hearing loss, bilateral Chronic 11/01/17 H90.3 Restless leg Acute 03/31/15 G25.81 Reflux esophagitis Acute 07/07/15 K21.0 Positive TG (antinuclear antibody) Acute 06/07/15 R76.8 Incomplete tear of left rotator cuff Acute 05/31/16 M75.112 Depressive disorder Chronic 05/23/11 F32.9 Alopecia areata Acute 05/23/11 L63.9 Medical History Medical History Postprandial hypoglycemia PP Hyperinsulinemic hypogly Dx per [facility] [place] ([place]). 04/2022. per observation and tel d/w Dr. Ortega (future Endo, [facility]).. vs exercise-induced Hypotension post gastric bypass ... lowering ACEi, BB, CCB. DIuretics in place 2' LE edema (albeit improved). Pre-ulcerative corn or callous b/l Skin lesion Mild wound, 2' probable abd intertrigo. Hx of sepsis 2023 Cellulitis Menopausal symptoms Mastocytosis NEG per testing ... Followed by Dr. Irma Schroeder, [facility]. Working DDX despite neg labs. Numerous tests ordered .. recommend some time off to be able to manage tests, rest, rehydrate. Scab of knee fell last week, rough/dry scab, but irritated .. Trial debride @ home, consider surgtery if tender. Diarrhea (10/29/15) Chronic, secretory .. s/p multiple Mathews, Bx. Trial cholestyramine, 10/2018, ik planned. History of endometrial biopsy (~05/26/22) [facility] Rn First Assistant, 05/26/22 Post-resection malabsorption Per 03/22/22 [facility] Gen surgery note Heel lesion Right heel, cracked skin .. inner foot tenderness .. out of proportion tenderness .. possible assoc with fever? (improved with soaking, but not closing) Fever Over 1 week; T 103/102/99; Neg COVID; Awaiting Flu SARS-CoV-2 positive (~10/26/21) [place] exposure Dtr (+) .. Sore Throat, lab [ ] Dumping syndrome (04/12/21) NOT per Bariatric Team.. Dx per [facility] [place]o .. [facility] Bariatric Team re-eval as NEG for dumping syndrome, 05/2021 Complicated grieving Her basically healthy mo due to COVID19 infection. She was intubated within days of becoming sick, sending out a cheerful text 4 days beforehand! Monisha has cancelled the trip just before flights, etc were shut down; she was originally worried for her fa 2' health issues and dementia. Close-knit family; inability for gathering for .. video/webexed with family in [facility] (mo in [place]). Diabetes mellitus type 2 in obese Improved s/p bariatric surgery and wt loss BUT HYPOglycemia Preeclampsia Flash pulmonary edema Lymphedema Possibly affecting left ankle, post infection, 07/2023. Hx x2-3x? (referring to PT for evaluation and recommendations).. Bunion 12/24/18-nelson Yarbrough DPM Abnormal serum creatinine level (07/2018) Serious Creatinine elevation, with resolution between episodes of dehydration .. Sustained VT (ventricular tachycardia) during hypokalemia episode Angioedema 10/02/18 Dr Schroeder/[facility] Flushing 10/02/18 Dr Schroeder/[facility] Elevated plasma metanephrines (08/2018) Ordered by Endo, CT (Abd) [ ] ... follow up with Endo week of October 07. 08/2018, ik Kidney stone (02/27/12) Dehydration (~08/21/18) Several episodes now .. She can almost gauge her K levels based on mm weakness. [ ] BMP [ ] IVF-KCl Bolus-K have helped with hypokalemia in between bouts of diarrhea/dehydration when IVF not needed. 09/2018, ik Rectal bleeding (03/02/15) Episodic - Was diagnosed with AVM's Impaired fasting glucose (02/11/14) A1C 6.1% 12/2012 .. A1C 5.8 07/04/18. Hypokalemia (11/07/16) Chronic, possible 2' IBS/Diarrhea. Continued despite GI improvements, albeit improved. Trial Eplerenone, to be followed by HCTZ decrease. 10/09/18 Intermittent improvement, but unsteady and unpredictable .. Monisha seems unable to maintain her own K levels WNL w/o bolus/infusions at this time. Unable to tolerate K-sparing diuretics. Cont to research, evaluate, consult .. 09/2018, ik Essential hypertension (12/05/12) Elevated BPs, especially DBP. Hx high BP since of twins (20yrs), noted in Nephro note (2017). HCTZ used x years for HTN & Edema. Spirono not tolerated (Hives/Flush). Trial Eplerenone, 10/09/18, ik Unable to tolerate eplerenone, angioedema-like reactions to K-sparing diuretics.. 09/2018, ik Irritable bowel syndrome diarrhea predominant Alopecia Hx of adenomatous colonic polyps Marylou's thyroiditis Pt. states it never resulted in hypothyroidism so pt. states she never had to take ex for it Depression Anemia Reflux esophagitis Surgical History Surgical History Status post bariatric surgery Successful weight loss, but dangerous, symptomatic HYPOglycemia [neg dumping syndrome per [facility]] S/P laparoscopic hysterectomy (~12/2022) Extensive lysis of adhesions, bilateral salpingectomy and cystoscopy, repair of vaginal lacerations for chronic pelvic pain and fibroid uterus. History of Nadia-en-Y gastric bypass (~11/2019) H/O colonoscopy (12/05/17) History of esophagogastroduodenoscopy (EGD) (12/05/17) Tonsillectomy section x3 Endometrial Ablation 2007 2012 EGD - MAC 2016 Colonoscopy - MAC (03/16/14) w/ bx 2016-serrated adenomatous polyp Most recent 12/05/2017 Tobacco Smoking/Tobacco Use Status: Never Passive smoking exposure: No Alcohol Alcohol Intake: current Alcohol intake frequency: holidays/special occasions only Alcohol type: wine Substance Use Substance use: Never Substance use type: does not use Details: alcohol: t-7, one drink Prental History History 3 Para 4 Hx # Term Pregnancies Multiple births 1 Hx # Pregnancies Ectopic pregnancies AB induced Hx Number of Living Children 4 AB spontaneous Vital Signs and Lab Results Vital Signs Most Recent Vital Signs in EMR: Most Recent Vital Signs Temp Pulse Resp BP Pulse Ox 36.6 C 76 20 128/86 97 10/10/24 06:23 10/10/24 06:23 10/10/24 06:23 10/10/24 06:23 10/10/24 06:23 Point of Care Results Point of Care Results: Finger Stick Blood Glucose 104 10/10/24 06:48 Lab Results Complete Metabolic Panel: Hemoglobin A1c, (4.5-5.7) 5.8 % H 09/18/24, 08:16 Imaging and Studies Imaging and Studies Study information below may be from another EMR and interpreted by another provider. Please see original notes in EMR for more complete details. EKG Summary: Feb 2024 Conclusion Sinus rhythm...normal P axis, V-rate Borderline left axis deviation Poor R wave progression possible old anterior infarct Echocardiogram Summary: August 2023 ef 60 no sig valve dx ascending aorta 3.8cm Anesthesia Assessment and Plan Anesthesia History Personal History: No History of Anesthesia Complications Family History: No Family History of Anesthesia Complications Exercise Tolerance Exercise Tolerance: Metabolic Equivalents>4 Pertinent Negatives Pertinent Negatives: No Symptoms of GERD, No Major Cardiovascular Symptoms or Complaints, No Major Pulmonary Symptoms or Complaints and No History of CVA/TIA Cardiac & Pulmonary Exam Cardiac Exam: Normal S1/S2 Heart Sounds Pulmonary Exam: Clear Bilateral Breath Sounds Implantable Cardiac Device Does patient have a Pacemaker or an ICD?: No Airway Exam Known Difficult Airway: No Mallampati Class: 2 Mouth Opening: Normal (> 3cm) Thyromental Distance: Greater than 3 cm Neck Range of Motion: Full ROM Neck Circumference: Normal Teeth Condition: Normal Dentition ASA Classification ASA Score: ASA 2 Emergency Case?: No NPO Status NPO Status: NPO Clears >2 hours, Solids >8 hours Status Status: Not Relevant due to Medical History Anesthesia Plan Resuscitation Status: Full Code Anesthesia Technique: General Anesthesia Airway Planned: Endotracheal Tube Pain Management: Surgeon and patient request nerve block Monitors Used: Standard Monitors Preoperative Comments:: Discussed at length medical history. Pt. denies v-tach history (states was worked up by cardiology with monitor), denies diaphragm issues, denies PTH issues, denies lupus/RA, denies mastocytosis cutaneous or systemic and denies any pretreatment in the past or that this is a real diagnosis for her (no issues with stress or temperature).
--- NOTE | 2024-10-10 07:14 | W.PM.DSUDISC ---
Date of service: 10/10/24 Discharge Plan Disposition Patient Disposition: Home Condition: Stable Discharge Details Attending Provider: Tremayne Hernandez Primary Care Provider: Sushil Martinez Meds and New Rx's Prescriptions: New celecoxib 200 mg capsule 200 mg PO DAILY PRN (Reason: pain) Qty: 30 0RF oxycodone 5 mg tablet 5 - 10 mg PO .q4-6h MDD 30 mg PRN (Reason: severe pain) Qty: 18 0RF Continued glucagon 3 mg/actuation spray,non-aerosol 3 mg intranasal ONCE Qty: 1 3RF Patient Comments: pt. received 07/24 when septic Rx Instructions: as a single dose (DME) Scalp Hair Prosthesis See Rx Instructions .Route .MEDSUPPLY Qty: 1 1RF Rx Instructions: Wear as recommendended diazepam 5 mg tablet 5 mg PO TID PRN (Reason: muscle spasm) Qty: 30 1RF Rx Instructions: Trial for mm spasm lisinopril 5 mg tablet 5 mg PO BID Qty: 180 3RF Rx Instructions: Re-starting, trial daily x 1 week potassium chloride 20 mEq tablet extended release 20 meq PO PRN PRN (Reason: hypokalemia) Qty: 30 2RF Rx Instructions: taking prn per lab test cgc celecoxib [Celebrex] 100 mg capsule 100 mg PO BID PRN Rx Instructions: Trial for shoulder pain/inflammation (DME) Dexcom G7 Sensor Device See Rx Instructions .Route Qty: 9 3RF Patient Comments: not on today Rx Instructions: As directed to monitor blood glucose (DME) hair prosthesis See Rx Instructions .Route .MEDSUPPLY Qty: 1 1RF Rx Instructions: hair prosthesis for alopecia areata of scalp bariatric fusion chewable complete 2 tab tablet 2 100 ml PO DAILY (DME) glucometer See Rx Instructions .Route .MEDSUPPLY Qty: 1 0RF Rx Instructions: As directed to manage, prevent hypoglycemic episodes (DME) lancets [Comfort Lancets] Misc See Rx Instructions .ROUTE .MEDSUPPLY Qty: 100 1RF Rx Instructions: As directed to check blood glucose daily. No insulin. Dispense covered brand. (DME) Blood Glucose Test Strip See Rx Instructions .ROUTE .MEDSUPPLY Qty: 350 3RF Rx Instructions: As directed to check blood glucose QID. No insulin. Dispense covered brand. 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 See Rx Instructions .Route Qty: 1 1RF Rx Instructions: As directed to monitor blood glucose cyclobenzaprine 30 mg capsule,extended release 24hr 30 mg PO QHS PRN (Reason: muscle spasm) Qty: 10 1RF Rx Instructions: Trial ER dosing for costochondral mm spasm pain ondansetron HCl 4 mg tablet 4 mg PO Q8H Qty: 60 1RF pramipexole 0.25 mg tablet 0.25 mg PO BID Qty: 180 3RF Rx Instructions: Take at lunch time and 1 hour prior to bedtime (DME) Hair Prosthesis See Rx Instructions .Route .MEDSUPPLY Qty: 1 1RF Rx Instructions: As fitted/recommended for daily wear hydrochlorothiazide 25 mg tablet 25 mg PO BID PRN (Reason: edema) Qty: 180 3RF Rx Instructions: PRN gabapentin 800 mg tablet 800 mg PO BID Qty: 180 3RF Rx Instructions: Take at noon and 1 hour prior to bedtime for RLS bupropion HCl [Wellbutrin XL] 300 mg tablet extended release 24 hr 300 mg PO DAILY Qty: 90 3RF omeprazole 40 mg capsule,delayed release(DR/EC) 40 mg PO DAILY Qty: 90 3RF amiloride 5 mg tablet 5 mg PO BID Qty: 180 3RF Rx Instructions: Continue per Endocrine (07/2022+) Bio-K plus 50 billion cell capsule,delayed release(DR/EC) 1 cap PO DAILY Qty: 10 0RF Discharge Instructions Additional Instructions: Surgery: Left anatomic total shoulder arthroplasty with biceps tenodesis 10/09/24 Activity: Do not lift anything heavier than a coffee. You should keep your arm at your side in a relatively neutral position at all times except for gentle range of motion exercises, physical therapy, and essential activities. You should use the sling whenever you are out of the house. At home it is best to remove the sling and rest the arm on a pillow at your side or support the operative side with your other hand. A physical therapy prescription will be sent electronically to start in about 3 weeks. Anatomic TSA Protocol (must protect subscapularis repair): No external rotation for 6 weeks. No extension past neutral for 6 week. Internal rotation across the body OK. Prescriptions: Celecoxib/Celebrex 200 mg take once daily with a meal for moderate pain or discomfort Oxycodone 5 mg take 1-2 every 4-6 hours as needed for severe pain You may use sqkh-xeo-qkoptmi Tylenol (acetaminophen) as needed for mild pain. These pain medications may be taken all at once or in different combinations as needed. Also, recommend Colace (docusate) as a stool softener as surgery and pain medicine cause constipation. You may try jrub-gng-wezwkwa diphenhydramine (Benadryl) 25-50 mg nightly as a sleep aid Dressings: Leave dressing in place until follow-up. Keep clean and dry at all times. No showers please. Follow-up: 10-[address] Hernandez You may take off the leg compression stockings this evening at home. You may also leave them on a few days longer if you have a history of leg swelling or edema. Please call the office during business hours with any questions or concerns. Let us know right away if you develop any redness, drainage, fevers, chest pain, or trouble breathing. Do not drink alcohol or drive for at least 24 hours after anesthesia. Stand Alone Forms: Anesthesia Discharge Inst., Anes.Nerve Block Instructions, Ariane Rose (DSU) Referrals: Tremayne Hernandez MD [ [facility] STAFF PHYSICIAN, Orthopaedic Surgical] - 10/22/24 11:00 am Discharge Orders Discharge Orders: Discharge Order (Routine); Ordered 10/10/24 Ordered By: Rosanne Duron DS: Diagnosis Discharge Diagnosis (1) Arthritis of left glenohumeral joint: Status: Acute
--- NOTE | 2024-10-10 07:33 | ROE_ITS ---
Operative Note Operative Note PRE-OP DIAGNOSIS: Left: 1. End-stage glenohumeral arthritis 2. Long head of the biceps tendinopathy PROCEDURE: Left: 1. Anatomic total shoulder arthroplasty, CPT # 44553 2. Open biceps tenodesis, CPT # 70294 The product development assistant was medically required as this procedure involves retraction, protection of neurovascular structures, and manipulation of multiple instruments and implants at the same time, which cannot be done without a skilled product development assistant. SURGEON: Tremayne Hernandez AUTOMATIC HEMMER: Rosanne Duron ANESTHESIA TYPE: Local By Surgeon, General LMA/ETT and Primary Nerve Block Refer to Anesthesia Record ESTIMATED BLOOD LOSS: 150 COMPLICATIONS: None Patient was transported to: PACU Patient's condition: stable Implants: [employer].[place] shoulder system Extra small anatomic glenoid Small stemless humerus 42 x 14.5 mm humeral head Indications: See medical record for details Findings: Significant long head biceps partial tearing and tendinopathy. Healthy, intact, and mobile rotator cuff. Significant glenohumeral arthritis and inferior humeral head goats couch osteophytes. Procedure Description: In the operating room, general anesthesia was induced. The patient was positioned beachchair on the operating room table. All bony prominences were well-padded. Preoperative antibiotics were administered. The shoulder was prepped and draped in the usual sterile fashion for shoulder arthroplasty. The correct patient, procedure, and side of the procedure were all verified prior to incision. The deltopectoral approach was preinjected with 0.25% bupivacaine containing epinephrine and taken to the anterior shoulder. Care was taken to bluntly dissect the interval between the deltoid and pectoralis major muscles and to identify the cephalic vein within its fat stripe. The diminutive vein was preserved and mobilized medially. Subdeltoid space and conjoined tendon were freed of adhesions. The long head of the biceps tendon was identified just lateral to the lesser tuberosity. The uppermost margin of the pectoralis major tendon was released from the proximal humerus. The long head of the biceps tendon was tenodesed in situ using SutureTape in a [id number]-caglo fashion securing it superior margin the pectoralis major tendon. The biceps tendon was amputated and followed proximally to identify the rotator interval. A subscapularis tenotomy was performed taking care to release the entire tendon from superior to inferior while bringing the arm gradually into external rotation. Care was taken to avoid the axillary nerve by only working on the bone inferiorly and medially. The supraspinatus and infraspinatus were inspected and intact. Appropriate coagulation was achieved especially interiorly. The anatomic neck was cut using an oscillating saw over the guide. The subscapularis was confirmed to be mobilized along its margins. Attention was then turned to the glenoid and retractors were placed and a circumferential release performed removing soft tissue about the glenoid rim. Care was taken inferiorly to work on bone only between 5 and 7:00 o'clock and bluntly elevate tissues inferiorly. The glenoid was sized and guidepin inserted accounting for patient version and inclination with moderate correction of the moderate significant retroversion. The guidepin was inserted just through the far cortex ensuring adequate central fixation length. The one step prep glenoid reamer was then used to prepare glenoid according to warehouse delivery driver specifications. The glenoid trial had excellent seating. The glenoid was copiously irrigated. The peripheral ring was thoroughly dried and then cement placed with a 10 cc syringe, pressurized digitally, and excess removed with [place] and [place] tip. The glenoid implant was inserted while maintaining appropriate alignment and then solidly impacted onto the prepared surface. It was held in place for 16 minutes for cement hardening and then checked to have good fit and fixation. The proximal humerus was delivered from the wound with adduction and external rotation. The humerus was sized and pin placed. Reaming and blazing were done over the pin. For the subscapularis repair, 4 suture tape sutures were then placed through the bicipital groove and medial margin of the cut bone surface before shuttling them through 3 of the holes in the stemless implant for lateral row repair with an additional 2 horizontal mattress suture tapes placed through these holes as well for medial row. The stemless implant was then impacted with excellent seating and fixation to the paired surface all removing tension from the repair sutures. The humerus trial was connected. The shoulder was reduced, demonstrated excellent motion, and good physiologic stability with about 50% posterior shuck. The trial humerus was removed and final impacted into place. The shoulder joint reduced and range of motion, stability, and tension confirmed. The shoulder was copiously irrigated with Betadine and normal saline. Vancomycin powder was distributed deeply about the shoulder and through subcuta neous tissues. The subscapularis repair was then done with the arm in slight external rotation with the 4 simple sutures from superior to inferior and then the 2 medial row horizontal mattresses for added security. There was excellent reduction and fixation strength of the subscapularis repair, which was stable past 30 degrees to rotation. The lateral interval was then closed using suture tape as well. The deltopectoral interval was well-approximated. Subcutaneous tissue was irrigated then closed using 2-0 Monocryl in a buried interrupted fashion. Skin was closed using 3-0 Monocryl in a buried subcuticular fashion. Skin glue was applied to the incision. A silver impregnated bandage was placed over the incision. The extremity was placed into a shoulder immobilizer. The patient awoke from anesthesia without complication and was taken to the recovery room in stable condition. Date of Procedure: 10/10/24
[2024-10-10] MEDS: ceFAZolin 2 GM/50 ML BAG IVPB (07:55)
[2024-10-10] MEDS: TRANEXAMIC ACID/SOD. CHL. 1,000 MG/100 ML BAG 600 MG IVPB (07:59)
--- NOTE | 2024-10-10 08:06 | W.ANESNERVE ---
Nerve Block Single Injection Procedure Date and Time Date Performed: 10/10/24 Procedure Start: 07:08 Location Where Procedure Performed Procedure Location: Day Surgery Unit Reason Performed: Postoperative Analgesia Requesting Provider: Tremayne Hernandez Timeout Performed Timeout Performed: Yes Monitoring Used ECG, Blood Pressure, SpO2 and See EMR for corresponding vital signs Sterility Sterility: Hand Hygiene, Surgical Cap, Surgical Mask, Sterile Gloves and Chlorhexidine Sedation Given During Procedure Sedation Given (Indicate Dose Given): Versed IV Dose:: 2mg Patient Mental Status Patient Mental Status: Sedate with meaningful communication Nerve Block 1st Nerve Block: Laterality: Left Block Type: Interscalene Ultrasound Image Saved?: Yes Needle / Catheter Used: 100mm SonoPlex II Local Anesthetic Bolus (Indicate Dose Given): Lidocaine used for local infiltration of skin, Injected in 3-5ml increments after negative blood aspiration, Bupivacaine 0.25% Dose:: 10mL and Exparel Dose:: 10mL Additives (Indicate Dose Given): None Ultrasound: Sterile probe cover and gel used Nerve Stimulator: Supplement to Ultrasound use Paresthesia: None Procedure Tolerated: No Complications and Patient tolerated well Procedure Outcome: Successful Performed By: Анна Beauchamp Supervised By: Gray Marcial
[2024-10-10] MEDS: Bupivacaine 0.25% Pres-Free W/EPI 30 ML VIAL (08:37)
--- NOTE | 2024-10-10 11:00 | DI.RAD_ITS ---
Exam(s) XR SHOULDER LT COMPLETE 2+V EXAM: XR SHOULDER LT COMPLETE 2+V CLINICAL HISTORY: Post-op. TECHNIQUE: 2D digital imaging was performed. COMPARISON: CR XR SHOULDER LT COMPLETE 2+V from 04/04/2023 FINDINGS: Two postop views Satisfactory position alignment of the components of the newly placed prosthesis. No fracture or loosening evident. IMPRESSION: Satisfactory postop appearance of left shoulder. DATA REPOSITORY: RADIATION DOSE DELIVERED:
[2024-10-10] MEDS: ACETAMINOPHEN 1,000 MG/100 ML BAG 400 MG IVPB (12:05)
[2024-10-10] MEDS: fentaNYL 100 MCG/2 ML VIAL IVP ×3 (12:09→12:36)
[2024-10-10] MEDS: Ketorolac 15 MG/ML VIAL IVP (13:04)
[2024-10-10] MEDS: oxyCODONE 5 MG TAB PO (13:31)
[2024-10-10] MEDS: Lactobacillus Acidophilus CAP 1 CAP PO (13:32)
--- NOTE | 2024-10-10 13:56 | W.ANESPOSTOP ---
Postoperative Evaluation Date, Time and Location Date Performed: 10/10/24 Time Performed: 12:52 Patient Location: PACU Vital Signs Most Recent Imported Vital Signs: Most Recent Vital Signs Temp Pulse Resp BP Pulse Ox 36.5 C 66 14 122/84 94 10/10/24 12:48 10/10/24 12:48 10/10/24 12:48 10/10/24 12:48 10/10/24 12:48 Pain Score Most Recent Pain Score: Most Recent Pain Score Pain Level 4 10/10/24 12:45 Assessment Mental Status: Awake (Alert & Oriented to Patient Baseline) Airway and Respiratory Function: Patent airway with normal (patient baseline) respiratory exam Cardiovascular Function: Hemodynamically Stable Hydration Status: Adequately Hydrated Nausea & Vomiting: No Nausea or Vomiting Pain: Pain is tolerable per patient Peripheral Nerve Block: Regional nerve block not resolved at time of post operative discharge Postoperative Comments:: Pt. has tolerable discomfort in upper block arm. Block does seem to be setup nicely for shouder, just does not seem to be covering all of the bicep work, whcih is not unusual
--- NOTE | 2024-10-10 15:24 | W.ANESPOSTOP ---
Postoperative Evaluation Date, Time and Location Date Performed: 10/10/24 Time Performed: 15:30 Patient Location: Day Surgery Unit Vital Signs Most Recent Imported Vital Signs: Most Recent Vital Signs Temp Pulse Resp BP Pulse Ox 36.4 C L 78 18 127/70 97 10/10/24 15:00 10/10/24 15:00 10/10/24 15:00 10/10/24 15:00 10/10/24 15:00 Most Recent Vital Signs Temp Pulse Resp BP Pulse Ox 36.5 C 66 14 122/84 94 10/10/24 12:48 10/10/24 12:48 10/10/24 12:48 10/10/24 12:48 10/10/24 12:48 Pain Score Most Recent Pain Score: Most Recent Pain Score Pain Level 1 10/10/24 15:00 Assessment Mental Status: Awake (Alert & Oriented to Patient Baseline) Airway and Respiratory Function: Patent airway with normal (patient baseline) respiratory exam Cardiovascular Function: Hemodynamically Stable Hydration Status: Adequately Hydrated Nausea & Vomiting: No Nausea or Vomiting Pain: Pt. Denies Any Pain Peripheral Nerve Block: Regional nerve block not resolved at time of post operative discharge
[2024-10-10] MEDS: ceFAZolin 1 GM/50 ML BAG IVPB (15:30)
== END 2024-10-10 16:29 | disposition home or self-care (01) ==
PROVIDERS: PCP Family Medicine; Visit Provider Student in an Organized Health Care Education/Training Program
PROC: (CPT 23472; principal; 2024-10-10 07:30)
DX: M19.012 Primary osteoarthritis, left shoulder (principal); M75.22 Bicipital tendinitis, left shoulder; G89.18 Other acute postprocedural pain
CPT/HCPCS: 23472; 23430; 64415; 73030; J0131; J0665; J0666; J0690; J1100; J1885; J2250; J2371; J2405; J2704; J3010

== ENCOUNTER 2024-10-22 13:46 | Outpatient (CLI) | payer OTHER, SELFPAY ==
--- NOTE | 2024-10-22 11:00 | DI.RAD_ITS ---
Exam(s) XR SHOULDER LT COMPLETE 2+V EXAM: XR SHOULDER LT COMPLETE 2+V INDICATION: 1ST POST OP. COMPARISON: CR XR SHOULDER LT COMPLETE 2+V from 10/10/2024 TECHNIQUE: 2D digital imaging was performed. Two views. FINDINGS: Stable alignment of shoulder prosthesis. No abnormal bony lucencies. DATA REPOSITORY: RADIATION DOSE DELIVERED:
== END 2024-10-22 13:47 | disposition home or self-care (01) ==
LOC: DIORS 13:46
PROVIDERS: PCP Family Medicine; Visit Provider Student in an Organized Health Care Education/Training Program
DX: M19.012 Primary osteoarthritis, left shoulder (principal); Z96.612 Presence of left artificial shoulder joint
CPT/HCPCS: 73030

== ENCOUNTER 2025-02-11 10:23 | Outpatient (CLI) | payer OTHER, SELFPAY ==
--- NOTE | 2025-02-11 08:30 | DI.RAD_ITS ---
Exam(s) XR SHOULDER LT COMPLETE 2+V EXAM: XR SHOULDER LT COMPLETE 2+V INDICATION: F/U LEFT TSA. COMPARISON: CR XR SHOULDER LT COMPLETE 2+V from 10/10/2024 CR XR SHOULDER LT COMPLETE 2+V from 10/22/2024 TECHNIQUE: 2D digital imaging was performed. Two views. FINDINGS: There is a total shoulder prosthesis. There appears to be from superior subluxation of the humeral component with respect to the glenoid component when compared with the prior exam. There are no abnormal bony lucencies. DATA REPOSITORY: RADIATION DOSE DELIVERED:
== END 2025-02-11 10:24 | disposition home or self-care (01) ==
LOC: DIORS 10:23
PROVIDERS: PCP Family Medicine; Visit Provider Student in an Organized Health Care Education/Training Program
DX: M19.012 Primary osteoarthritis, left shoulder (principal); Z96.612 Presence of left artificial shoulder joint
CPT/HCPCS: 73030